=== PATIENT | female | born 1945 | race Caucasian/White ===

== ENCOUNTER → 2019-07-27 14:32 | Outpatient (CLI) | payer MEDICARE, SELFPAY ==
[2019-07-27 13:37] VITALS: BMI 40.6
[2019-07-27 15:16] LABS: Absolute Lymphocyte Count 4.02 X10^3/uL (0.83-4.51); Absolute Neutrophil Count 5.6 X10^3/uL (2.0-7.7); Basophil# 0.07 X10^3/uL; Basophil% 0.6 % (0-1); Eosinophil# 0.57 X10^3/uL; Eosinophils% 5.3 % (0-5); Hematocrit 32.4 % (37-47); Hemoglobin 10.3 g/dL (12.0-15.0); Lymphocyte # 4.02 X10^3/ul (4.0); Lymphocyte % 37.1 % (19-41); Mean Corp Hgb Conc 31.8 g/dL (32-36); Mean Corpuscular Hgb 30.2 pg (27.0-32.0); Mean Platelet Vol. 10.4 fl (6.2-12.0); Monocyte# 0.57 X10^3/uL; Monocyte% 5.3 % (0-10); NRBC Flagged by Analyzer 0 % (0-5); Neutrophil # 5.57 X10^3/uL (2.7-7.7); Neutrophil % 51.3 % (47-70); Platelet Count 299 K/mm3 (150-450); RBC Distribution Width CV 12.8 % (11.6-14.6); RBC Distribution Width SD 44.3 fl (35.1-43.9); Red Blood Count 3.41 M/mm3 (4.2-5.4); White Blood Count 10.8 K/mm3 (4.4-11.0)
[2019-07-27 15:40] LABS: AST(SGOT) 14 U/L (15-37); Alanine Aminotransfer ALT/SGPT 21 U/L (13-56); Albumin, Serum 3.6 g/dL (3.2-5.0); Alkaline Phosphatase 91 U/L (45-117); Anion Gap 7 (5-15); BUN 34 mg/dL (7-18); BUN/Creat Ratio 20.1 RATIO (10-20); Bilirubin, Direct 0.08 mg/dL (0.00-0.30); Calcium,Total 8.9 mg/dL (8.5-10.1); Chloride 109 mmol/L (98-107); Cholesterol 160 mg/dL (200); Creatinine, Serum 1.69 mg/dL (0.55-1.02); EST Glomerular Filtration Rate 31 mL/min (>60); Est Glom Filt Rate - Afr Amer 38 mL/min (>60); Globulin 3.9 g/dL (2.2-4.2); Glucose 192 mg/dL (74-106); High Density Lipoprotein 37 mg/dL; Potassium 4.7 mmol/L (3.5-5.1); Protein, Total 7.5 g/dL (6.4-8.2); Sodium Level 139 mmol/L (136-145); Triglycerides 193 mg/dL; Very Low Density Lipoprotein 39 mg/dL (5-40)
== END ==
PROVIDERS: Family Provider Family Medicine; PCP Family Medicine; Referring Provider Physician Assistant Medical; Visit Provider Physician Assistant Medical
DX: I25.810 Atherosclerosis of coronary artery bypass graft(s) without angina pectoris (principal)
CPT/HCPCS: 80048; 80061; 80076; 85025

== ENCOUNTER 2020-10-08 23:58 | Observation (INO) | payer MEDICARE, SELFPAY ==
[2020-02-15 13:14] VITALS: BMI 39.4
[2020-10-08 23:59] VITALS: BP 223/72; PULSE 83; RESP 17; TEMP 36.6; O2SAT 100; BMI 44.8
[2020-10-09] VITALS (11 sets, daily range): BP systolic 147–214; BP diastolic 67–82; PULSE 75–90; RESP 16–18; TEMP 36.3–36.9; O2SAT 96–100; BMI 38.0
--- NOTE | 2020-10-09 00:09 | CT_ITS ---
HISTORY: SHIVERING INSIDE, DIARRHEA, ELEVATED BP, HX MD IN PAST ADDITIONAL HISTORY: None provided. COMPARISON: None EXAMINATION/TECHNIQUE: CT Head or Brain W/O Contrast Injection. Axial, coronal and sagittal images. Number of images including paperwork: 248. A radiation dose optimization technique was used for this scan. FINDINGS: BRAIN: No acute hemorrhage. Low density focus in the left renetta. Multiple areas of decreased white matter attenuation are nonspecific, most commonly seen with chronic small vessel ischemic changes but can also be seen with other white matter processes such as demyelinating disease, vasculitis, or complicated migraine. Generalized atrophy. VENTRICULAR SYSTEM: No hydrocephalus. PARANASAL SINUSES AND MASTOIDS: No air-fluid level in the imaged extent. ORBITS: Unremarkable imaged extent. SKELETON AND SOFT TISSUES: Calvarium intact. ASPECTS score: Not applicable. CT/Brain/Head without Contrast IMPRESSION: Low density in the left renetta suggestive of age-indeterminate lacunar infarct. Chronic involutional and white matter changes. Individualized dose optimization techniques were used for this CT. at 0039 Reported and signed by: Mariia Vasquez MD Electronically Signed: Mariia Vasquez MD at 0:38 EST Tel , Service support ,
--- NOTE | 2020-10-09 00:10 | EKG12_ITS ---
Test Reason : GENERAL ILLNESS Blood Pressure : / mmHG Vent. Rate : 072 BPM Atrial Rate : 072 BPM P-R Int : 152 ms QRS Dur : 090 ms QT Int : 402 ms P-R-T Axes : 025 032 071 degrees QTc Int : 440 ms Normal sinus rhythm with sinus arrhythmia Normal ECG Confirmed by ARNALDO DUQUE, DARLENE ([id number]), department editor SUKHDEEP CONTRERAS ([id number]) on 10/09/2020 1:16:40 PM Referred By: SAMANTHA Confirmed By:DARLENE MCINTOSH MD
--- NOTE | 2020-10-09 00:14 | ED.DCSUM_ITS ---
History of Present Illness Chief Complaint: General Illness Informant: Patient, Family Limited by: - Onset: Today Context: Gradual Onset Timing: Intermittent Narrative: Patient is a 75-year-old female presenting with feeling weak and almost feeling like there is a shaking inside her. She states that her symptoms started couple hours ago. She feels that there is a pounding or ringing in her ears. About an hour prior to arrival she started to get paresthesias in her right arm. This is now resolved and she just has a little bit of tingling in her right fingers. She denies any weakness or numbness. She denies any vision changes. She denies any chest pain, shortness of breath or difficulty breathing. She denies any urinary or GI symptoms. Patient says should not really show withdrawal with her. States she has been compliant with all of her home medications. She is on lisinopril for high blood pressure. She takes an aspirin daily was not on any anticoagulation. 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 Win, in the morning. 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 She also has history of open heart surgery and states she had a stroke after that. She denies any lingering deficits from that stroke. Lives with her daughter. She uses a cane to ambulate. Past Medical History - Allergies and Home Meds Allergies/Adverse Reactions: Allergies albuterol Allergy (Verified 10/08/20 23:59) Shortness of breath Anesthetics - Amide Type - Select A [Anesthetics - Amide Type] Allergy (Verified 10/08/20 23:59) Other STATES BILAT LUNGS COLLAPSED AFTER OPEN HEART SURGERY AND HAVING ANESTHESIA. PT. UNSURE OF WHICH ANESTHESIA MEDS acetaminophen [From Tylenol] Adverse Reaction (Severe, Verified 10/08/20 23:59) Other SEE'S DARK SPOTS cinnamon Adverse Reaction (Unknown, Verified 10/08/20 23:59) Unknown Penicillins Adverse Reaction (Unknown, Verified 10/08/20 23:59) Unknown Past Medical History: - - Coronary artery disease, ischemic cardiomyopathy, hypertension, hyperlipidemia, TIA, GERD, hypothyroid, type 2 diabetes mellitus Surgical History: coronary bypass surgery Smoking Status: Never smoker - Family History Maternal Family History: Family History (Last Reviewed 02/15/20 @ 13:15 by Niki Lawton) Mother No problems noted. Father Prostate cancer Paternal Family History: Family History (Last Reviewed 02/15/20 @ 13:15 by Niki Lawton) Mother No problems noted. Father Prostate cancer Family History: Reports: Cancer - Father with history of prostate cancer. Review of Systems General: Reports: Malaise. Denies: Chills, Fever, Sweats Eyes: Denies: Visual changes - bilaterally, Diplopia ENT: Reports: - - Pounding in ears. Denies: Rhinorrhea, Sore throat Cardiovascular: Denies: Chest pain, Palpitations Respiratory: Denies: Dyspnea, Cough, Dyspnea on exertion Gastrointestinal: Denies: Abdominal pain, Nausea, Vomiting, Diarrhea, Melena, Hematochezia Genitourinary: Denies: Dysuria, Hematuria, Frequency Musculoskeletal: Denies: Back pain, Extremity Pain Skin: Denies: Rash, Wounds Neurological: Reports: Parasthesia - Right arm?resolved. Denies: Headache, Weakness, Numbness Physical Exam Vital Signs/Narrative: Vital Signs Temp Pulse Resp BP Pulse Ox 10/08/20 23:59 97.9 F 83 17 223/72 H 100 Inital Vital Signs reviewed: Yes General: Well nourished, Well developed, No Acute Distress Head: Normocephalic, Atraumatic Eyes: Perrl, EOMI ENT: Moist mucous membranes, No rhinorrhea, TM's clear Neck: Supple, Nontender, No JVD Cardiovascular: Regular rate, Regular rhythm, No murmurs Respiratory: No distress, CTA bilaterally, Chest nontender Abdomen: Soft, Nontender, Nondistended, Normal bowel sounds Back: Nontender, Normal Inspection Extremities: Nontender, No edema Skin: Normal color, No rash Neurological: Alert, Oriented x3, Cranial nerves II-XII grossly intact, Normal Strength, Normal Sensation, - - NIH equals 0. Negative for: Confused, Disoriented, Parasthesia, Weakness, Left side facial droop, Right side facial droop Psychological: Normal affect, Normal Mood Diagnostic/Tx/Re-eval Chest X-Ray - ED: 1 View, Read by ED Physician, Read by Radiologist, No Acute Disease Clinical Impression(s) from Imaging Studies Brain CT 10/09/20 00:09 IMPRESSION: Low density in the left renetta suggestive of age-indeterminate lacunar infarct. Chronic involutional and white matter changes. Individualized dose optimization techniques were used for this CT. at 0039 Reported and signed by: Mariia Vasquez MD Electronically Signed: Mariia Vasquez MD at 0:38 EST Tel , Service support , Chest X-Ray 10/09/20 00:25 IMPRESSION: No acute cardiopulmonary abnormality. at 0057 Reported and signed by: Mariia Vasquez MD Electronically Signed: Mariia Vasquez MD at 0:57 EST Tel , Service support , Laboratory Data 10/09/20 10/09/20 10/09/20 00:10 00:20 00:20 WBC 13.3 H RBC 3.58 L Hgb 10.6 L Hct 34.0 L MCV 95.0 MCH 29.6 MCHC 31.2 L RDW Std Deviation 48.5 H RDW Coeff of Kamar 13.9 Plt Count 337 MPV 10.1 Immature Gran % (Auto) 0.500 Neut % (Auto) 62.4 Lymph % (Auto) 28.4 [place] % (Auto) 5.9 Eos % (Auto) 2.4 Baso % (Auto) 0.4 Absolute Neuts (auto) 8.3 H Absolute Lymphs (auto) 3.78 Nucleated RBC % 0 PT 12.8 INR 1.0 APTT 33.7 Sodium Potassium Chloride Carbon Dioxide Anion Gap BUN Creatinine Estim Creat Clear Calc Est GFR (MDRD) Af Amer Est GFR (MDRD) Non-Af BUN/Creatinine Ratio Glucose Calcium Total Bilirubin AST ALT Alkaline Phosphatase Troponin I Total Protein Albumin Globulin Albumin/Globulin Ratio Urine Color Yellow Urine Clarity Clear Urine pH 6.0 Ur Specific [place] 1.010 Urine Protein 15 H Urine Glucose (UA) Normal Urine Ketones Negative Urine Occult Blood 25 H Urine Nitrite Negative Urine Bilirubin Negative Urine Urobilinogen Normal Ur Leukocyte Esterase 500 H Urine RBC 5-10 SEEN Urine WBC 10-25 SEEN Ur Squamous Epith Cells 0-5 SEEN Urine Bacteria RARE Urine Mucus 0 SEEN 10/09/20 00:20 WBC RBC Hgb Hct MCV MCH MCHC RDW Std Deviation RDW Coeff of Kamar Plt Count MPV Immature Gran % (Auto) Neut % (Auto) Lymph % (Auto) [place] % (Auto) Eos % (Auto) Baso % (Auto) Absolute Neuts (auto) Absolute Lymphs (auto) Nucleated RBC % PT INR APTT Sodium 139 Potassium 4.7 Chloride 111 H Carbon Dioxide 21.0 Anion Gap 7 BUN 22 H Creatinine 1.85 H Estim Creat Clear Calc 39.74 Est GFR (MDRD) Af Amer 34 L Est GFR (MDRD) Non-Af 28 L BUN/Creatinine Ratio 11.9 Glucose 119 H Calcium 8.8 Total Bilirubin 0.30 AST 12 L ALT 19 Alkaline Phosphatase 98 Troponin I < 0.015 Total Protein 7.3 Albumin 3.6 Globulin 3.7 Albumin/Globulin Ratio 1.0 Urine Color Urine Clarity Urine pH Ur Specific [place] Urine Protein Urine Glucose (UA) Urine Ketones Urine Occult Blood Urine Nitrite Urine Bilirubin Urine Urobilinogen Ur Leukocyte Esterase Urine RBC Urine WBC Ur Squamous Epith Cells Urine Bacteria Urine Mucus - Rhythm Strip Rhythm Strip: Sinus Rhythm Rate: 72 Ectopy: None - EKG Initial EKG Interpretation: Sinus Rhythm, - - Normal sinus rhythm at a rate of 72 with sinus arrhythmia Normal axis Normal intervals Normal ST segments Interpreted by emergency medicine physician - Medical Decision Making Patient is evaluated for general feeling of malaise as well as an episode of paresthesias to her right arm that have since resolved. Patient initially did not even complain of the paresthesias but mentioned it on review of systems. Patient's NIH is 0 so therefore stroke alert is not called. She does have a history of TIAs. Patient is noted to have urinary frequency while in the emergency room. Urinalysis is consistent with infection and urine culture sent. Patient also has a leukocytosis and I did add on a lactate and blood cultures. Patient started on IV Rocephin in the ER. She is initially quite hypertensive with systolic blood pressure in the 220s however this resolves without any intervention in the ER. Patient is given a full dose aspirin as her head CT shows an age-indeterminate lacunar infarct. No signs of acute bleed. EKG is normal and patient has a normal troponin. This does not sound like a cardiac event. Patient admitted for further evaluation of UTI as well as TIA. She is agreeable with plan of care. She is hemodynamically stable in the emergency room. ED Disposition - Plan for ED Patient: Disposition: Acute Care Hospital [facility] Diagnosis: Essential hypertension, UTI (urinary tract infection), Weakness, CKD (chronic kidney disease), Arm paresthesia, right
[2020-10-09 00:15] LABS: Mucous, Urine 0 SEEN /hpf (<or=2+)
[2020-10-09 00:21] LABS: Color, Urine Yellow (Yellow); Glucose, Dipstick Normal (Normal); Ketone-Dipstick Negative (Negative); Leukocyte Esterase-Dipstick 500 /ul (Negative); Nitrite-Dipstick Negative (Negative); Occult Blood-Urine 25 /ul (Negative); Protein-Dipstick 15 mg/dl (Negative); Urine Bilirubin Dipstick Negative (Negative); Urine Clarity Clear (Clear); Urine Urobilinogen Normal (Normal)
--- NOTE | 2020-10-09 00:25 | RAD_ITS ---
HISTORY: FATIGUE, DIARRHEA AND INCREASED BP ADDITIONAL HISTORY: None provided. EXAMINATION/TECHNIQUE: XR Chest 1 View AP/PA Number of images including paperwork: 1 COMPARISON: None FINDINGS: LUNGS AND PLEURA: No consolidation, mass or pleural effusion. CARDIAC SILHOUETTE: Unremarkable. MEDIASTINUM AND RAHUL: Aortic calcification. UPPER ABDOMEN: Unremarkable. SKELETON AND SOFT TISSUES: No acute skeletal findings. Degenerative changes. OTHER DEVICES AND HARDWARE: Sternal wires and surgical clips. RAD/Chest 1 View (Portable) IMPRESSION: No acute cardiopulmonary abnormality. at 0057 Reported and signed by: Mariia Vasquez MD Electronically Signed: Mariia Vasquez MD at 0:57 EST Tel , Service support ,
[2020-10-09 00:26] LABS: Absolute Lymphocyte Count 3.78 X10^3/uL (0.83-4.51); Absolute Neutrophil Count 8.3 X10^3/uL (2.0-7.7); Basophil# 0.05 X10^3/uL; Basophil% 0.4 % (0-1); Eosinophil# 0.32 X10^3/uL; Eosinophils% 2.4 % (0-5); Hemoglobin 10.6 g/dL (12.0-15.0); Lymphocyte # 3.78 X10^3/ul (4.0); Lymphocyte % 28.4 % (19-41); Mean Corp Hgb Conc 31.2 g/dL (32-36); Mean Corpuscular Hgb 29.6 pg (27.0-32.0); Mean Platelet Vol. 10.1 fl (6.2-12.0); Monocyte# 0.78 X10^3/uL; Monocyte% 5.9 % (0-10); NRBC Flagged by Analyzer 0 % (0-5); Neutrophil % 62.4 % (47-70); Platelet Count 337 K/mm3 (150-450); RBC Distribution Width CV 13.9 % (11.6-14.6); RBC Distribution Width SD 48.5 fl (35.1-43.9); Red Blood Count 3.58 M/mm3 (4.2-5.4); White Blood Count 13.3 K/mm3 (4.4-11.0)
[2020-10-09 00:29] LABS: Bacteria RARE /hpf (None Seen); Red Blood Cells-Urine 5-10 SEEN /hpf (0-5); Squamous Epithelial Cells - UA 0-5 SEEN /hpf (5-10); White Blood Cells 10-25 SEEN /hpf (0-5)
[2020-10-09 00:36] LABS: Prothrombin Time (Protime)PT. 12.8 SECONDS (11.7-14.9)
[2020-10-09 00:37] LABS: Partial Thromboplast Time 33.7 Seconds (24.1-36.2)
[2020-10-09 00:44] LABS: AST(SGOT) 12 U/L (15-37); Alanine Aminotransfer ALT/SGPT 19 U/L (13-56); Albumin, Serum 3.6 g/dL (3.2-5.0); Alkaline Phosphatase 98 U/L (45-117); Anion Gap 7 (5-15); BUN 22 mg/dL (7-18); BUN/Creat Ratio 11.9 RATIO (10-20); Calcium,Total 8.8 mg/dL (8.5-10.1); Chloride 111 mmol/L (98-107); Creatinine, Serum 1.85 mg/dL (0.55-1.02); EST Glomerular Filtration Rate 28 mL/min (>60); Est Glom Filt Rate - Afr Amer 34 mL/min (>60); Estimated Creatinine Clearance 39.74 ml/min; Globulin 3.7 g/dL (2.2-4.2); Glucose 119 mg/dL (74-106); Potassium 4.7 mmol/L (3.5-5.1); Protein, Total 7.3 g/dL (6.4-8.2); Sodium Level 139 mmol/L (136-145)
--- NOTE | 2020-10-09 01:10 | HP.PCM_ITS ---
Problem List (1) TIA (transient ischemic attack) Status: Acute (2) Morbid obesity Status: Chronic (3) Diabetes mellitus, type II Status: Chronic Qualifiers: Diabetes mellitus assisted insulin use: without assisted use Diabetes mellitus complication status: with other specified complication Qualified Code(s): E11.69 - Type 2 diabetes mellitus with other specified complication (4) CKD (chronic kidney disease) Status: Chronic Qualifiers: Chronic kidney disease stage: stage 3 (moderate) Chronic kidney disease stage 3 subtype: unspecified whether 3a or 3b Qualified Code(s): N18.30 - Chronic kidney disease, stage 3 unspecified (5) Atherosclerosis of coronary artery bypass graft without angina pectoris Status: Chronic Qualifiers: [place] vs. transplanted heart: unspecified whether [place] or transplanted heart Qualified Code(s): I25.810 - Atherosclerosis of coronary artery bypass graft(s) without angina pectoris (6) H/O coronary artery bypass surgery Status: Resolved Comment: CABG x 6 - HEART to LAD, SVG to D1 and D2, SVG to Ramus, SVG to OM1, SVG to RPDA 10/11/2007 (7) History of coronary artery stent placement Status: Resolved Comment: TDV-HFU-Omch-SVG-LCx w/ 3.0 34 mm Resolute Integrity Stent 01/12/2016; PCI-KATEY-Mid RCA w/ 3.0 x 34 mm and 3.0 x 30 mm Resolute Integrity Stent, POBA-Prox RPDA 01/10/2016 [id number] unsuccessful 01/10/2016; PCI-SVG-D1 and PCI-LCx 11/05/2019 (8) Ischemic cardiomyopathy Status: Chronic (9) Chronic combined systolic and diastolic CHF (congestive heart failure) Status: Chronic (10) Essential hypertension Status: Chronic (11) Hyperlipidemia Status: Chronic Qualifiers: Hyperlipidemia type: pure hypercholesterolemia Qualified Code(s): E78.00 - Pure hypercholesterolemia, unspecified (12) Hypothyroidism Status: Chronic Qualifiers: Hypothyroidism type: unspecified Qualified Code(s): E03.9 - Hypothyroidism, unspecified (13) Chronic asthma Status: Chronic Qualifiers: Asthma severity: unspecified severity Asthma persistence: unspecified Asthma complication type: unspecified Qualified Code(s): J45.909 - Unspecified asthma, uncomplicated History of Present Illness Date of Admission: 10/09/20 Chief Complaint: R sided paresthesias The patient is a 75 y/o F w/ PMHx: CKD stage III, 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, Asthma, CAD s/p CABG x 6 and KAETY, Chronic systolic and diastolic CHF/Ischemic cardiomyopathy, Morbid Obesity, Hypothyroidism, HTN, HLD, GERD, Diabetes mellitus type II, Chronic debility using a cane baseline who presents to the [facility] ED on 10/09/20 with history of abnormal sensation of feeling as though something shaking inside of her, possibly like chills starting a couple hours prior to ED presentation with sensation of ringing and pounding in her head with complaints of paresthesias to her right upper extremity x 1 hour which is since resolved except for mild tingling in her right fingers with no associated weakness. Patient notes she has chronic bladder discomfort as she has issues with detachment but states it is chronic and unchanged with no acute dysuria, retention, frequency. Work-up in the ED included T 97.9, heart rate 83, BP 223/72--> 214/75, respiratory rate 17, and a percent room air, CBC with WBC 13.3, hemoglobin 10.6, platelet 337 with left shift, urinalysis not marked appearing, urine culture pending per ED, unremarkable coags, CMP with chloride 111, BUN/creatinine 22/1.85, glucose 119 otherwise unremarkable, troponin less than 0.015, CT head low density in the left renetta adjustment of an age- indeterminate lacunar infarct, chronic involutional and white matter changes, chest x-ray with no acute cardiopulmonary findings with evidence status post thoracotomy, EKG with sinus rhythm with no acute evidence of ischemia, pending LA. In the ED patient ministered Rocephin, aspirin, normal saline. NIH in the ED 0. Past Medical History Past Medical History (Chronic Problems): Chronic Problems (Last Reviewed 02/15/20 @ 13:15 by Niki Lawton) CKD (chronic kidney disease) (Chronic) Morbid obesity (Chronic) Diabetes mellitus, type II (Chronic) Hypothyroidism (Chronic) Chronic asthma (Chronic) Atherosclerotic heart disease of [place] coronary artery without angina pectoris (Chronic) Atherosclerosis of coronary artery bypass graft without angina pectoris (Chronic) Old anterior wall myocardial infarction (Chronic) Old inferior wall myocardial infarction (Chronic) Ischemic cardiomyopathy (Chronic) Chronic combined systolic and diastolic CHF (congestive heart failure) (Chronic) Essential hypertension (Chronic) Hyperlipidemia (Chronic) Medical History: Medical History (Last Reviewed 02/15/20 @ 13:15 by Niki Lawton) Atherosclerotic heart disease of [place] coronary artery without angina pectoris (Chronic) I25.10 Atherosclerosis of coronary artery bypass graft without angina pectoris (Chronic) I25.810 Old anterior wall myocardial infarction (Chronic) I25.2 Old inferior wall myocardial infarction (Chronic) I25.2 Ischemic cardiomyopathy (Chronic) I25.5 Chronic combined systolic and diastolic CHF (congestive heart failure) (Chronic) I50.42 Essential hypertension (Chronic) I10 Hyperlipidemia (Chronic) E78.5 Non-ST elevated myocardial infarction (non-STEMI) (Resolved) Onset Date: 11/05/19 I21.4 01/2016 Asthma J45.909 GERD (gastroesophageal reflux disease) K21.9 Hypothyroidism E03.9 Obesity E66.9 Type 2 diabetes mellitus without complication E11.9 Vertigo R42 Allergies albuterol Allergy (Verified 10/08/20 23:59) Shortness of breath Anesthetics - Amide Type - Select A [Anesthetics - Amide Type] Allergy (Verified 10/08/20 23:59) Other STATES BILAT LUNGS COLLAPSED AFTER OPEN HEART SURGERY AND HAVING ANESTHESIA. PT. UNSURE OF WHICH ANESTHESIA MEDS acetaminophen [From Tylenol] Adverse Reaction (Severe, Verified 10/08/20 23:59) Other SEE'S DARK SPOTS cinnamon Adverse Reaction (Unknown, Verified 10/08/20 23:59) Unknown Penicillins Adverse Reaction (Unknown, Verified 10/08/20 23:59) Unknown Home Medications: Ambulatory Orders Medication Instructions Recorded Metoprolol Tartrate [Lopressor 50 mg PO BID 12/17/13 (Beta Bernie)] Montelukast [Singulair] 10 mg PO DAILY 12/17/13 Omeprazole [Prilosec] 20 mg PO DAILY 12/17/13 glipiZIDE [Glucotrol] 10 mg PO BIDAC 12/17/13 metFORMIN HCl [Glucophage] 1,000 mg PO BIDCM 12/17/13 aspirin 81 mg tablet,delayed 81 mg PO QDAY tab 11/19/17 release lisinopril 20 mg tablet 20 mg PO QDAY 11/19/17 clopidogrel 75 mg tablet 75 mg PO QDAY tab 12/22/17 levothyroxine 137 mcg capsule 137 mcg PO QDAY 12/23/17 meclizine 12.5 mg tablet 12.5 mg PO TID PRN tab 12/23/17 furosemide 40 mg tablet 40 mg PO DAILY #90 tab 01/22/19 cetirizine 10 mg tablet 10 mg PO QDAY tab 02/15/20 ipratropium bromide 17 2 puff INHALATION 4X/DAY PRN PRN 02/15/20 mcg/actuation HFA aerosol inhaler pravastatin 80 mg tablet 80 mg PO QHS tab 02/15/20 Allopurinol 100 mg PO DAILY 10/09/20 Surgical History: Surgical History (Last Reviewed 02/15/20 @ 13:15 by Niki Lawton) H/O coronary artery bypass surgery (Resolved) Onset Date: 10/11/07 Z95.1 CABG x 6 - HEART to LAD, SVG to D1 and D2, SVG to Ramus, SVG to OM1, SVG to RPDA 10/11/2007 History of coronary artery stent placement (Resolved) Onset Date: 11/05/19 Z95.5 ZQU-ZFH-Npdj-SVG-LCx w/ 3.0 34 mm Resolute Integrity Stent 01/12/2016; PCI-KATEY-Mid RCA w/ 3.0 x 34 mm and 3.0 x 30 mm Resolute Integrity Stent, POBA-Prox RPDA 01/10/2016 [id number]-[id number] unsuccessful 01/10/2016; PCI-SVG-D1 and PCI-LCx 11/05/2019 History of cholecystectomy Z90.49 History of hysterectomy Z90.710 Hx of appendectomy Z90.49 Hx of bilateral cataract extraction Z98.41, Z98.42 Surgical History: coronary bypass surgery, - - CABG x 6, PCI, cholecystectomy, hysterectomy, appendectomy, bilateral cataract surgery. 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 Smoking Status: Never smoker Tobacco Use: Non-smoker Alcohol: None Drugs: None - *Family History Maternal Family History: Family History (Last Reviewed 02/15/20 @ 13:15 by Niki Lawton) Mother No problems noted. Father Prostate cancer History Items: - - Patient denies any market maternal family history including heart disease, diabetes, cancer. Patient notes her mother was very healthy. Paternal Family History: Family History (Last Reviewed 02/15/20 @ 13:15 by Niki Lawton) Mother No problems noted. Father Prostate cancer History Items: Cancer - Father with history of prostate cancer. Review of Systems Constitutional: Reports: Fatigue. Denies: Anorexia, Chills, Fever, Malaise, Weakness, Weight Change HEENT: Reports: Head Aches, - - Tinnitus.. Denies: Sinus Congestion, Sinus Drainage Cardiovascular: Denies: Chest Pain, Palpitations Respiratory: Denies: Cough, Shortness of Breath, Shortness of breath at rest, Sputum production Gastrointestinal: Denies: Abdominal Pain, Nausea, Vomiting Genitourinary: Reports: - - Chronic lower abdomen discomfort, bladder chronic issues, stable, unchanged., - - No new specific dysuria, frequency, retention, urgency. Musculoskeletal: Reports: Joint Pain. Denies: Joint Tenderness Skin: Denies: Rash, Wounds Neurological: Reports: Tingling - Right upper extremity paresthesias, resolved.. Denies: Focal weakness, Numbness Psychiatric: Denies: Anxiety, Depression, Homicidal Ideations, Suicidal Ideations Hematologic/ Lymphatic: Reports: Anemia, Easy Bruising, Easy Bleeding VTE Information - Inpt Only VTE Present on Admission: No VTE Mechan Device Prophylaxis: SCD's VTE Pharm Prophylaxis ordered?: Yes Patient Problems: Active and Suspected Problems (Last Reviewed 02/15/20 @ 13:15 by Niki Lawton) UTI (urinary tract infection) (Acute) Weakness (Acute) Arm paresthesia, right (Acute) Subjective: Patient seated upright in the ED bed, fatigued otherwise no acute distress. Objective: Physical Examination: General: awake, alert, oriented x 3 and cooperative, seated upright in the ED bed in no apparent distress. Skin: normal color, turgor, no icterus, cyanosis. HEENT: AT/NC, EOMI, PERRLA, MMM, no carotid bruits or JVD noted. Lungs: Diminished breath sounds, greater bases, normal effort, no rales, ronchi or wheezing. Heart: Regular rate and rhythm; no gallop, rub audible. Abdomen: soft, morbidly obese, no specific tenderness to palpation including suprapubic region, difficult to assess distention given habitus, distant normal BS, unable to discern HSM secondary to morbidly obese habitus. Extremities: no cyanosis or clubbing, mild bilateral nonpitting ankle edema. Neurological: patient awake, alert, oriented as noted; cognitive function intact; pupils equally reactive to light and accomodation; cranial nerves II-XII grossly normal, moving all 4 extremities, no focal deficits, strength moderately to severely global decreased, chronic, sensation intact, ekshow-ui-yhaz and pcls-kg-oita appropriate, negative Babinski. Psychiatric: affect appears normal, no acute evidence of depressive or anxiety feelings. - Physical Exam Vitals/I&O's: Vital Signs Temp Pulse Resp BP Pulse Ox 97.9 F 83 17 214/75 H 100 10/08/20 23:59 10/08/20 23:59 10/08/20 23:59 10/09/20 00:23 10/08/20 23:59 Oxygen Delivery Method Room Air Weight: 214 lb 8.156 oz Body Mass Index (BMI) 44.8 Laboratory Results 10/09/20 00:10: Urine Color Yellow, Urine Clarity Clear, Urine pH 6.0, Ur Specific [place] 1.010, Urine Protein 15 H, Urine Glucose (UA) Normal, Urine Ketones Negative, Urine Occult Blood 25 H, Urine Nitrite Negative, Urine Bilirubin Negative, Urine Urobilinogen Normal, Ur Leukocyte Esterase 500 H, Urine RBC 5-10 SEEN, Urine WBC 10-25 SEEN, Ur Squamous Epith Cells 0-5 SEEN, Urine Bacteria RARE, Urine Mucus 0 SEEN 10/09/20 00:20: WBC 13.3 H, RBC 3.58 L, Hgb 10.6 L, Hct 34.0 L, MCV 95.0, MCH 29.6, MCHC 31.2 L, RDW Std Deviation 48.5 H, RDW Coeff of Kamar 13.9, Plt Count 337, MPV 10.1, Immature Gran % (Auto) 0.500, Neut % (Auto) 62.4, Lymph % (Auto) 28.4, [place] % (Auto) 5.9, Eos % (Auto) 2.4, Baso % (Auto) 0.4, Absolute Neuts (auto) 8.3 H, Absolute Lymphs (auto) 3.78, Nucleated RBC % 0 10/09/20 00:20: PT 12.8, INR 1.0, APTT 33.7 10/09/20 00:20: Sodium 139, Potassium 4.7, Chloride 111 H, Carbon Dioxide 21.0, Anion Gap 7, BUN 22 H, Creatinine 1.85 H, Estim Creat Clear Calc 39.74, Est GFR (MDRD) Af Amer 34 L, Est GFR (MDRD) Non-Af 28 L, BUN/Creatinine Ratio 11.9, Glucose 119 H, Calcium 8.8, Total Bilirubin 0.30, AST 12 L, ALT 19, Alkaline Phosphatase 98, Troponin I < 0.015, Total Protein 7.3, Albumin 3.6, Globulin 3.7, Albumin/Globulin Ratio 1.0 Current Medications Ceftriaxone Sodium (Rocephin) 1 gm in 50 mls @ 100 mls/hr IV X1 ONE Stop: 10/09/20 01:26 Sodium Chloride () 1,000 mls @ 150 mls/hr IV .Q6H40M [facility] Assessment/Plan All Active Problems (Last Reviewed 02/15/20 @ 13:15 by Niki Lawton) UTI (urinary tract infection) (Acute) Weakness (Acute) Arm paresthesia, right (Acute) TIA (transient ischemic attack) (Acute) H/O coronary artery bypass surgery (Resolved 10/11/07) History of coronary artery stent placement (Resolved 11/05/19) Non-ST elevated myocardial infarction (non-STEMI) (Resolved 11/05/19) The patient is a 75 y/o F w/ PMHx: CKD stage III, 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 1. Right upper extremity paresthesias concerning for CVA with Hx Prior CVA: Will admit to PCU, will obtain MRI Brain, MRA Head and Neck, ECHO, PT/OT/Speech/Nutrition evaluation per protocol. Will plan possible consult with neurology for evaluation following work-up as noted. Will allow permissive HTN pending MRI brain, maintain on asa/plavix, statin w/ AM FLP, fall precautions, magnesium pending, hemoglobin A1c pending, TSH pending. 2. Questionable UTI: Patient was given IV Rocephin in the ED for possible urinary tract infection however patient with no marked urine bacteria, asymptomatic for UTI therefore will await urine culture prior to continuation of any antibiotic therapy. Bld Cx pending per ED. 3. Chronic systolic and diastolic CHF/ischemic cardiomyopathy: We will continue patient aspirin, Plavix, statin therapies, judicious hydration given underlying history, last echo noted 01/08/2016 with mildly increased LV size, EF 40 to 45% with moderate diffuse hypokinesis, moderate MVR, mildly dilated LA, RVSP 25 mmHg obtained at [facility]. Temporarily holding patient metoprolol, lisinopril, Lasix therapy is given permissive hypertension as noted, [facility] 4. Hypertension: We will maintain permissive hypertension given presentation although significantly elevated in the ED thus will have as needed agents and treat if necessary. 4. Hyperlipidemia: Continue home statin regimen. AM FLP. 5. CAD: Status post CABG x 6 with HEART to LAD, SVG to D1 and D2, SVG to Ramus, SVG to OM1, SVG to RPDA 10/11/2007 and KATEY intervention w/ PCI to the saphenous v ein graft to the diagonal branch and a PCI to the [place] post[place] left circumflex artery, will continue aspirin, Plavix, statin therapies, temporarily holding metoprolol and lisinopril given permissive hypertension as noted. 6. Diabetes mellitus type II: Hold oral home regimen, continue home insulin regimen, ADA diet, accu checks w/ ISS. 7. Hypothyroidism: Continue home synthroid regimen, TSH pending. 8. Chronic asthma: We will continue patient home inhaler, encourage head of bed and I-S. 10. Morbid Obesity: Weight loss and lifestyle changes encouraged, nutrition consulted. 11. Chronic normocytic anemia: Admission hemoglobin 10.6, previously similar, will continue to trend and encourage outpatient evaluation and follow-up. 12. Chronic Kidney Disease Stage III: Admission BUN/Cr 22/1.5, baseline renal function previously noted to be 1.69, repeat BMP in AM. 13. GERD: We will continue home PPI. 14. DVT prophylaxis: SCDs, Lovenox. 15. CODE status: Patient does not have healthcare of application integration architect set up but states she does have a living will but this was set up many years ago and she has not looked at it since nor does she seem to know where it is at. Encouraged with her significant comorbidity history to discuss setting up healthcare power of application integration architect and reevaluating living will with case management/social work so they may give her more information and direction. Discussed CODE status at length including difference between FULL code, DNR-CCA and DNR-CC status. Following discussions about the differences in these status, requested Full Code status. Did note that with her advanced age and co-morbidities outcome may be poor. Advanced Care Planning Face to Face Time: 16 minutes. OBSV E&M: 54677 Initial observation care L3 Procedures: 61777 Advncd Care Plan 30 Min
[2020-10-09] MEDS: 0.9% Normal Saline 1,000 ML 150 ML IV (01:19)
[2020-10-09] MEDS: Ceftriaxone 1 GM/50 ML BAG IV (01:19)
[2020-10-09] MEDS: Aspirin 81 MG TAB.CHEW 324 MG PO (01:20)
[2020-10-09 01:37] LABS: Lactic Acid 1.7 mmol/L (0.4-1.9)
--- NOTE | 2020-10-09 01:58 | MRI_ITS ---
STUDY: MRA OF THE HEAD WITHOUT CONTRAST REASON FOR EXAM: Female, 75 years old patient with right-sided arm/hand tingling TECHNIQUE: 3-D bevs-iq-tngorg (TOF) imaging was performed with MIPs. The study was performed unenhanced. COMPARISON: None. FINDINGS: Normal bilateral petrous carotid arteries. There appears to be hemodynamically significant stenosis of the supraclinoid regions of the right internal carotid artery with at least 70% diameter narrowing. The right cavernous internal carotid artery is diffusely narrowed. 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 There is non-visualization of the right A1 segment of the anterior cerebral arteries consistent with either aplastic development or an occlusion. Normal left A1 segments of the anterior cerebral artery. Normal intact anterior communicating artery (ACOM). Normal bilateral A2 segments of the anterior cerebral arteries. There is irregularity of the right M1 and M2 branches with minimal luminal narrowing, suggesting atherosclerotic plaque formation, without an occlusion. There is irregularity of the left M1 and M2 branches with minimal luminal narrowing, suggesting atherosclerotic plaque formation, without an occlusion. There is non-visualization of the right posterior communicating artery (PCOM). There is non-visualization of the left posterior communicating artery (PCOM). There is irregularity of the contour of the intradural vertebral arteries. The distal right V4 segment has a potentially hemodynamically significant stenosis with a greater than 50% diameter narrowing. The basilar artery is diffusely irregular contour. The visualized bilateral superior cerebellar (SCA) arteries are normal. The posterior cerebral arteries have diffuse irregularity with multifocal stenosis. There is no demonstrated aneurysm of the [place] of [place]. There are involutional changes of the brain. MRI/MRA Head ONLY without Contrast IMPRESSION: 1. Extensive abnormal appearance of the medium-sized arteries including the cavernous internal carotid arteries, basilar artery and intradural vertebral arteries. The appearance suggests sequela of a vasculopathy rather than typical atherosclerotic disease. 2. 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 Electronically Signed: Laurence Chavez MD at 13:14 EST , Service support ,
--- NOTE | 2020-10-09 01:58 | MRI_ITS ---
STUDY: MRA NECK WITHOUT CONTRAST REASON FOR EXAM: Female, 75 years old patient with right-sided arm/hand tingling. TECHNIQUE: Source images were obtained, MIPs were performed. The study was performed unenhanced. Several images are limited by patient motion. COMPARISON: Prior comparison studies are not available for review at this time. FINDINGS: RIGHT CAROTID ARTERIES: Normal right common carotid artery (CCA). Normal right common carotid bulb. Normal origin of the right internal carotid (ICA) artery without a hemodynamically significant stenosis. Normal visualized cervical portion of the right internal carotid artery. Normal origin of the right external carotid artery (ECA). LEFT CAROTID ARTERIES: Normal left common carotid artery (CCA). Normal left common carotid bulb. Normal origin of the left internal carotid (ICA) artery without a hemodynamically significant stenosis. Normal visualized cervical portion of the left internal carotid artery. Normal origin of the left external carotid artery (ECA). VERTEBRAL ARTERIES: Normal antegrade flow within the bilateral vertebral artery without a hemodynamically significant stenosis. MRI/MRA Neck without Contrast IMPRESSION: No MRA evidence for hemodynamically significant stenosis. Electronically Signed: Laurence Chavez MD at 11:48 EST , Service support ,
--- NOTE | 2020-10-09 01:58 | MRI_ITS ---
STUDY: MRI BRAIN WITHOUT CONTRAST REASON FOR EXAM: Female, 75 years old patient with right-sided arm and hand tingling. TECHNIQUE: Standardized multiplanar fat and water weighted pulse sequences were obtained. COMPARISON: CT of the head dated 10/09/2020. FINDINGS: There is mild cerebral atrophy with widening of the extra-axial spaces and moderate ventricular dilatation. There are a limited number of small white matter hyperintensities, distributed throughout the deep white matter tracts of the cerebral hemispheres, consistent with mild chronic white matter ischemic changes. There is apparent restricted diffusion within the basal ganglia, left greater than right. This could be the result of acute ischemia versus other causes for stereotaxic edema. Normal T2* images of the brain without demonstrated susceptibility artifact. There is no demonstrated hemosiderin stain. Normal bilateral basal ganglia. Normal thalami. There is no extra-axial fluid accumulation. Normal flow voids within the major intracranial circulation suggesting patency by spin echo criteria. Normal sella turcica, pituitary gland, infundibular stalk, optic chiasm and hypothalamus. Normal tectal plate and pineal gland. There is a focus of abnormal T2 hyperintensity within the left paramedian renetta that may be the result of previous ischemia. There are focal areas of encephalomalacia in the left cerebellar hemisphere suggesting sequela of old infarcts. There is also a small focus of encephalomalacia in the right cerebellar hemisphere also consistent with old infarct. There are large basal cisterns. Normal bilateral temporal bones. Normal bilateral internal auditory canals. There are bilateral ocular lens implants with otherwise normal intraorbital contents. Normal visualized paranasal sinuses. Normal calvarium and skull base. Normal visualized soft tissue structures. Normal visualized upper cervical spine. MRI/Brain without Contrast IMPRESSION: 1. Involutional changes of the brain, as described above. 2. 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 3. Restricted diffusion within the basal ganglia could be the result of ischemia or cytotoxic edema.. Electronically Signed: Laurence Chavez MD at 11:57 EST , Service support ,
[2020-10-09 02:14] LABS: Magnesium 1.7 mg/dL (1.6-2.6)
[2020-10-09] MEDS: 0.9% Normal Saline 1,000 ML 100 ML IV (02:33)
--- NOTE | 2020-10-09 05:01 | PCS.PANDOC ---
PANDEMIC DOCUMENTATION INITIATED: Date: 10/09/2020 Time:[id number]
[2020-10-09] MEDS: Levothyroxine 137 MCG Tablet PO (06:41)
[2020-10-09 06:45] LABS: Bedside Glucose 109 mg/dL (70-110)
[2020-10-09] MEDS: Ipratropium 0.5 MG/2.5 ML SOLUTION INHALATION ×2 (07:07→13:04)
[2020-10-09 07:09] LABS: Absolute Lymphocyte Count 3.62 X10^3/uL (0.83-4.51); Absolute Neutrophil Count 5.8 X10^3/uL (2.0-7.7); Basophil# 0.06 X10^3/uL; Basophil% 0.6 % (0-1); Eosinophil# 0.31 X10^3/uL; Hematocrit 29.6 % (37-47); Hemoglobin 9.4 g/dL (12.0-15.0); Lymphocyte # 3.62 X10^3/ul (4.0); Lymphocyte % 34.8 % (19-41); Mean Corp Hgb Conc 31.8 g/dL (32-36); Mean Corpuscular Hgb 29.7 pg (27.0-32.0); Mean Corpuscular Volume 93.7 fL (81-99); Mean Platelet Vol. 10.3 fl (6.2-12.0); Monocyte# 0.59 X10^3/uL; Monocyte% 5.7 % (0-10); NRBC Flagged by Analyzer 0 % (0-5); Neutrophil # 5.79 X10^3/uL (2.7-7.7); Neutrophil % 55.6 % (47-70); Platelet Count 300 K/mm3 (150-450); RBC Distribution Width CV 14.1 % (11.6-14.6); RBC Distribution Width SD 48.6 fl (35.1-43.9); Red Blood Count 3.16 M/mm3 (4.2-5.4); White Blood Count 10.4 K/mm3 (4.4-11.0)
[2020-10-09 07:39] LABS: ALB/GLOB Ratio 0.9 RATIO (0.9-2.4); AST(SGOT) 12 U/L (15-37); Alanine Aminotransfer ALT/SGPT 16 U/L (13-56); Alkaline Phosphatase 87 U/L (45-117); Anion Gap 7 (5-15); BUN 23 mg/dL (7-18); Calcium,Total 8.7 mg/dL (8.5-10.1); Chloride 113 mmol/L (98-107); Cholesterol 136 mg/dL (200); Creatinine, Serum 1.64 mg/dL (0.55-1.02); EST Glomerular Filtration Rate 32 mL/min (>60); Est Glom Filt Rate - Afr Amer 39 mL/min (>60); Estimated Creatinine Clearance 23.08 ml/min; Globulin 3.2 g/dL (2.2-4.2); Glucose 116 mg/dL (74-106); High Density Lipoprotein 35 mg/dL; Potassium 4.5 mmol/L (3.5-5.1); Protein, Total 6.2 g/dL (6.4-8.2); Sodium Level 141 mmol/L (136-145); T4 Free Direct 1.47 ng/dL (0.76-1.46); Thyroid Stim Hormone (TSH) 0.08 uIU/mL (0.358-3.74); Triglycerides 116 mg/dL; Very Low Density Lipoprotein 23 mg/dL (5-40)
[2020-10-09] MEDS: Montelukast 10 MG Tablet PO (09:59)
[2020-10-09] MEDS: Loratadine 10 MG Tablet PO (09:59)
[2020-10-09] MEDS: Clopidogrel Bisulfate 75 MG Tablet PO (09:59)
[2020-10-09] MEDS: Enoxaparin 30 MG/0.3 ML Syringe SC (09:59)
[2020-10-09] MEDS: Allopurinol 100 MG Tablet PO (09:59)
[2020-10-09] MEDS: Aspirin E.C. 81 MG Tablet PO (09:59)
[2020-10-09] MEDS: Pantoprazole Sodium 20 MG Tablet PO (10:01)
[2020-10-09 11:25] LABS: Bedside Glucose 125 mg/dL (70-110)
--- NOTE | 2020-10-09 12:15 | ECHOCS_ITS ---
Reason For Study: RIGHT ARM PRESTHESIA Procedure This was a 2D Doppler, Color Flow transthoracic echocardiogram. The study was technically difficult. Due to body habitus. Contrast injection was performed. Exam performed portable in patient room. Left Ventricle Normal LV size. Left ventricular systolic function is normal. The estimated ejection fraction is 60 %. Stage 1 diastolic dysfunction. No regional wall motion abnormalities noted. Right Ventricle Normal RV size. Normal systolic function. Atria Normal left atrium. Normal right atrium. Bubble contrast study negative for right to left interatrial shunt. Mitral Valve Normal mitral valve. Tricuspid Valve Normal tricuspid valve. Great Vessels Normal aortic root. The pulmonary artery is normal size. Normal inferior vena cava. Pericardium/Pleural No pericardial effusion. Medication Performed a rapid injection of agitated mix of 9 cc saline and 1cc air to assess for atrial septal defect. Diluted definity 3.0ml given slow IV push to enhance endocardial definition. MMode/2D Measurements & Calculations LVIDd: 5.6 cm IVSd: 1.1 cm Ao root diam: 3.3 cm LVIDs: 3.7 cm LVPWd: 1.1 cm FS: 32.7 % LAV(MOD-bp): 63.7 ml LVAd ap4: 31.8 cm2 SV(MOD-sp4): 69.1 ml LAV(MOD-bp) Indexed: 32.4 ml/m2 EDV(MOD-sp4): 101.6 ml LAV(MOD-sp2): 65.2 ml EDV(sp4-el): 102.7 ml LAV(MOD-sp4): 60.9 ml LVAs ap4: 16.3 cm2 ESV(MOD-sp4): 32.5 ml ESV(sp4-el): 32.7 ml EF(MOD-sp4): 68.0 % EF(sp4-el): 68.1 % SV(sp4-el): 70.0 ml LA dimension(2D): 4.4 cm LA A4 area: 19.7 cm2 Time Measurements MV dec time: 0.20 sec Doppler Measurements & Calculations MV E max mik: 62.9 cm/sec Lat Peak E' Mik: 5.4 cm/sec Med Peak E' Mik: 5.0 cm/sec MV A max mik: 97.3 cm/sec E/E' lat: 11.6 E/E' med: 12.7 MV E/A: 0.65 Ao V2 max: 108.0 cm/sec LV V1 max: 79.2 cm/sec PA V2 max: 79.5 cm/sec Ao max P.7 mmHg LV V1 max P.5 mmHg Interpretation Summary Normal LV size. Left ventricular systolic function is normal. The estimated ejection fraction is 60 %. Stage 1 diastolic dysfunction. Bubble contrast study negative for right to left interatrial shunt. Ordering Physician: Alfonso Quiroz Referring Physician: Salena Mcclain Performed By: Penny Crenshaw, DARLENECS, RVT
--- NOTE | 2020-10-09 12:16 | TELEMED_ITS ---
[facility] has confirmed receipt of a request for visit. This document confirms receipt of the order initiating the consult. To find the results of the consultation, please view the patient's reports for the scanned Telemed Consult.
--- NOTE | 2020-10-09 16:35 | DCINST_ITS ---
- Discharge Diagnoses Current Active Problems: Current Active and Chronic Problems (Last Reviewed 02/15/20 @ 13:15 by Niki Lawton) UTI (urinary tract infection) (Acute) Weakness (Acute) CKD (chronic kidney disease) (Chronic) Arm paresthesia, right (Acute) TIA (transient ischemic attack) (Acute) Morbid obesity (Chronic) Diabetes mellitus, type II (Chronic) Hypothyroidism (Chronic) Chronic asthma (Chronic) Atherosclerosis of coronary artery bypass graft without angina pectoris (Chronic) Ischemic cardiomyopathy (Chronic) Chronic combined systolic and diastolic CHF (congestive heart failure) (Chronic) Essential hypertension (Chronic) Hyperlipidemia (Chronic) You will use the following diet at home:: Calorie/Carbohydrate Controlled (specify 1200, 1400, etc) - 1800, Cardiac Your food should be the consistency of: Regular Your liquids should be the consistency of: Regular/Thin Discharge Activity: Return to Normal Activity Call your doctor if you observe: - - weakness. difficulty speaking. Allergies/Adverse Reactions: Allergies albuterol Allergy (Verified 10/08/20 23:59) Shortness of breath Anesthetics - Amide Type - Select A [Anesthetics - Amide Type] Allergy (Verified 10/08/20 23:59) Other STATES BILAT LUNGS COLLAPSED AFTER OPEN HEART SURGERY AND HAVING ANESTHESIA. PT. UNSURE OF WHICH ANESTHESIA MEDS acetaminophen [From Tylenol] Adverse Reaction (Severe, Verified 10/08/20 23:59) Other SEE'S DARK SPOTS cinnamon Adverse Reaction (Unknown, Verified 10/08/20 23:59) Unknown Penicillins Adverse Reaction (Unknown, Verified 10/08/20 23:59) Unknown Medications to take at Discharge Metoprolol Tartrate [Lopressor (beta dima)] 50 mg PO BID 12/17/13 Montelukast [Singulair] 10 mg PO DAILY 12/17/13 Omeprazole [Prilosec] 20 mg PO DAILY 12/17/13 glipiZIDE [Glucotrol] 10 mg PO BIDAC 12/17/13 metFORMIN HCl [Glucophage] 1,000 mg PO BIDCM 12/17/13 aspirin 81 mg tablet,delayed release 81 mg PO QDAY tab 11/19/17 lisinopril 20 mg tablet 20 mg PO DAILY 11/19/17 clopidogrel 75 mg tablet 75 mg PO QDAY tab 12/22/17 levothyroxine 137 mcg capsule 137 mcg PO QDAY 04/17/18 meclizine 12.5 mg tablet 12.5 mg PO TID PRN tab 12/23/17 furosemide 40 mg tablet 40 mg PO DAILY #90 tab 01/22/19 cetirizine 10 mg tablet 10 mg PO QDAY tab 02/15/20 ipratropium bromide 17 mcg/actuation HFA aerosol inhaler 2 puff INHALATION 4X/DAY PRN PRN 02/15/20 pravastatin 80 mg tablet 80 mg PO QHS tab 02/15/20 Allopurinol 100 mg PO DAILY 10/09/20 Primary Care Physician: Salena Mcclain MD [Primary Care Provider] - Within 2 Weeks Test Results: Test results from this visit will be discussed in further detail at your follow- up appointment, if applicable. Please Follow Up With: Dru Roldan MD - neurology When: 2-4 weeks Proposed Discharge Date: 10/09/20
--- NOTE | 2020-10-09 16:36 | PCM.DC.SUM ---
Discharge Date and Diagnosis - Problem List Patient Problems: Active and Suspected Problems (Last Reviewed 02/15/20 @ 13:15 by Niki Lawton) UTI (urinary tract infection) (Acute) Weakness (Acute) Arm paresthesia, right (Acute) TIA (transient ischemic attack) (Acute) Date of Admission: 10/09/20 Date of Discharge: 10/09/20 - Primary Discharge Diagnosis Acute Problems: Active Problems (Last Reviewed 02/15/20 @ 13:15 by Niki Lawton) UTI (urinary tract infection) (Acute) Weakness (Acute) Arm paresthesia, right (Acute) TIA (transient ischemic attack) (Acute) - Secondary Discharge Diagnosis Chronic Problems: Chronic Problems (Last Reviewed 02/15/20 @ 13:15 by Niki Lawton) CKD (chronic kidney disease) (Chronic) Morbid obesity (Chronic) Diabetes mellitus, type II (Chronic) Hypothyroidism (Chronic) Chronic asthma (Chronic) Atherosclerotic heart disease of [place] coronary artery without angina pectoris (Chronic) 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 Chronic involutional and white matter changes. Individualized dose optimization techniques were used for this CT. at 0039 Reported and signed by: Mariia Vasquez MD Electronically Signed: Mariia Vasquez MD at 0:38 EST Tel , Service support , Chest X-Ray 10/09/20 00:25 IMPRESSION: No acute cardiopulmonary abnormality. at 0057 Reported and signed by: Mariia Vasquez MD Electronically Signed: Mariia Vasquez MD at 0:57 EST Tel , Service support , Brain MRI 10/09/20 01:58 IMPRESSION: 1. Involutional changes of the brain, as described above. 2. 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 3. Restricted diffusion within the basal ganglia could be the result of ischemia or cytotoxic edema.. Electronically Signed: Laurence Chavez MD at 11:57 EST , Service support , ADDENDUM: 10/09/20 1413 Head MRA 10/09/20 01:58 IMPRESSION: 1. Extensive abnormal appearance of the medium-sized arteries including the cavernous internal carotid arteries, basilar artery and intradural vertebral arteries. The appearance suggests sequela of a vasculopathy rather than typical atherosclerotic disease. 2. 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 Electronically Signed: Laurence Chavez MD at 13:14 EST , Service support , Neck MRA 10/09/20 01:58 IMPRESSION: No MRA evidence for hemodynamically significant stenosis. Electronically Signed: Laurence Chavez MD at 11:48 EST , Service support , [facility] Operations: None Procedures: 2-D Echocardiogram Summary of Care Provided: The patient is a 75 year old F Chaparro with right arm and hand numbness. Did resolve spontaneously but patient was admitted and underwent a stroke work-up. Patient had an MRI that showed involutional changes of the brain with sequelae of old infarcts involving the cerebellum and renetta. Restricted diffusion within the basal ganglia possibly representing ischemia or cytotoxic edema. With that report, I consulted [facility] telemetry neurology for further recommendations. The neurologist reviewed the MRI and did not see any stroke but did suspect benign findings but did recommend an outpatient MRI of the brain in about 2 weeks in addition to continue with patient's medical therapy. 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 Patient be given structures to follow-up with neurologist, Dr. Roldan, and to get an outpatient MRI for further visualization of her brain to see if these are benign entities or something else such as tumor though unlikely. [] Patient Problems: Active and Suspected Problems (Last Reviewed 02/15/20 @ 13:15 by Niki Lawton) UTI (urinary tract infection) (Acute) Weakness (Acute) Arm paresthesia, right (Acute) TIA (transient ischemic attack) (Acute) - Physical Exam Vitals/I&O's: Vital Signs Temp Pulse Resp BP Pulse Ox 36.7 C 86 18 147/79 H 97 10/09/20 14:00 10/09/20 15:00 10/09/20 14:00 10/09/20 14:00 10/09/20 14:00 Oxygen Delivery Method Room Air Weight: 97.1 kg Body Mass Index (BMI) 38.0 Intake and Output for Last 24 Hours 10/07/20 10/08/20 10/09/20 23:59 23:59 23:59 Intake Total 1597.5 / 1597.5 Output Total 775 / 775 Balance 822.5 / 822.5 General: Alert, No apparent distress HEENT: Atraumatic, Normocephalic Oral: Moist Mucosa, No Gingival or Mucosal Lesions/ Ulcerations Neck: No Nodes, Thyroid Normal Size and Texture Lungs: Clear to auscultation, Normal air movement, No rhonchi, No wheeze, No rales Cardiovascular: Regular rate, Regular Rhythm, Normal S1, Normal S2, No murmurs Abdomen: Bowel Sounds Present, Soft, Non Tender, Non-Distended, No Hepato-splenomegaly Extremities: No edema, No Calf Tenderness Skin: No rashes, No breakdown Neurological: Cranial nerves II-XII grossly intact, Motor Exam 5/5 strength throughout, Coordination normal Psych/Mental Status: Normal Affect, Appropriate Laboratory Results 10/09/20 00:10: Urine Color Yellow, Urine Clarity Clear, Urine pH 6.0, Ur Specific [place] 1.010, Urine Protein 15 H, Urine Glucose (UA) Normal, Urine Ketones Negative, Urine Occult Blood 25 H, Urine Nitrite Negative, Urine Bilirubin Negative, Urine Urobilinogen Normal, Ur Leukocyte Esterase 500 H, Urine RBC 5-10 SEEN, Urine WBC 10-25 SEEN, Ur Squamous Epith Cells 0-5 SEEN, Urine Bacteria RARE, Urine Mucus 0 SEEN 10/09/20 00:20: WBC 13.3 H, RBC 3.58 L, Hgb 10.6 L, Hct 34.0 L, MCV 95.0, MCH 29.6, MCHC 31.2 L, RDW Std Deviation 48.5 H, RDW Coeff of Kamar 13.9, Plt Count 337, MPV 10.1, Immature Gran % (Auto) 0.500, Neut % (Auto) 62.4, Lymph % (Auto) 28.4, [place] % (Auto) 5.9, Eos % (Auto) 2.4, Baso % (Auto) 0.4, Absolute Neuts (auto) 8.3 H, Absolute Lymphs (auto) 3.78, Nucleated RBC % 0 10/09/20 00:20: PT 12.8, INR 1.0, APTT 33.7 10/09/20 00:20: Sodium 139, Potassium 4.7, Chloride 111 H, Carbon Dioxide 21.0, Anion Gap 7, BUN 22 H, Creatinine 1.85 H, Estim Creat Clear Calc 39.74, Est GFR (MDRD) Af Amer 34 L, Est GFR (MDRD) Non-Af 28 L, BUN/Creatinine Ratio 11.9, Glucose 119 H, Calcium 8.8, Total Bilirubin 0.30, AST 12 L, ALT 19, Alkaline Phosphatase 98, Troponin I < 0.015, Total Protein 7.3, Albumin 3.6, Globulin 3.7, Albumin/Globulin Ratio 1.0 10/09/20 00:20: Magnesium 1.7 10/09/20 00:20: Hemoglobin A1c 7.0 H 10/09/20 01:05: Lactic Acid 1.7 10/09/20 06:35: WBC 10.4, RBC 3.16 L, Hgb 9.4 L, Hct 29.6 L, MCV 93.7, MCH 29.7, MCHC 31.8 L, RDW Std Deviation 48.6 H, RDW Coeff of [place]ar 14.1, Plt Count 300, MPV 10.3, Immature Gran % (Auto) 0.300, Neut % (Auto) 55.6, Lymph % (Auto) 34.8, [place] % (Auto) 5.7, Eos % (Auto) 3.0, Baso % (Auto) 0.6, Absolute Neuts (auto) 5.8, Absolute Lymphs (auto) 3.62, Nucleated RBC % 0 10/09/20 06:35: Sodium 141, Potassium 4.5, Chloride 113 H, Carbon Dioxide 21.0, Anion Gap 7, BUN 23 H, Creatinine 1.64 H, Estim Creat Clear Calc 23.08, Est GFR (MDRD) Af Amer 39 L, Est GFR (MDRD) Non-Af 32 L, BUN/Creatinine Ratio 14.0, Glucose 116 H, Calcium 8.7, Total Bilirubin 0.20, AST 12 L, ALT 16, Alkaline Phosphatase 87, Total Protein 6.2 L, Albumin 3.0 L, Globulin 3.2, Albumin/Globulin Ratio 0.9, Triglycerides 116, Cholesterol 136, LDL Cholesterol 78, VLDL Cholesterol 23, HDL Cholesterol 35 L, TSH 0.08 L, Free T4 1.47 H 10/09/20 06:39: POC Glucose 109 10/09/20 11:06: POC Glucose 125 H Current Medications Acetaminophen (Acetaminophen 325 Mg Tablet) 650 mg PO Q6H PRN PRN PRN Reason: Pain Score 1-10/Temp > 100.7 F Al Hydroxide/Mg Hydroxide (Mag Hydrox/Al Hydrox/Simeth 30 Ml Udc) 30 ml PO Q6H PRN PRN PRN Reason: Gastric Burning Allopurinol (Allopurinol 100 Mg Tablet) 100 mg PO DAILY [facility] Last Admin: 10/09/20 09:59 Dose: 100 mg Documented by: Aspirin (Aspirin E.C. 81 Mg Tablet) 81 mg PO DAILY [facility] Last Admin: 10/09/20 09:59 Dose: 81 mg Documented by: Clopidogrel Bisulfate (Clopidogrel Bisulfate 75 Mg Tablet) 75 mg PO DAILY [facility] Last Admin: 10/09/20 09:59 Dose: 75 mg Documented by: Enoxaparin Sodium (Enoxaparin 30 Mg/0.3 Ml Syringe) 30 mg SC DAILY [facility] Last Admin: 10/09/20 09:59 Dose: 30 mg Documented by: Guaifenesin (Guaifenesin 10 Ml Udc (200mg/10ml)) 20 ml PO Q4H PRN PRN PRN Reason: COUGH Hydralazine HCl (Hydralazine 20 Mg/Ml Vial) 5 mg IV Q30M PRN PRN Reason: to maintain BP goals Sodium Chloride () 250 mls @ 15 mls/hr IV .[id number] PRN PRN Reason: Saline Flush Sodium Chloride () 250 mls @ 15 mls/hr IV .[id number] PRN PRN Reason: Additional IVPB Infusion Insulin Human Lispro (Insulin Lispro 100 Unit/Ml Insuln.Pen) 0 unit SC ACHS [facility]; Protocol Last Admin: 10/09/20 16:36 Dose: Not Given Documented by: Ipratropium [place] (Ipratropium 0.5 Mg/2.5 Ml Solution) 0.5 mg INHALATION Q6HWA.RT [facility] Last Admin: 10/09/20 13:04 Dose: 0.5 mg Documented by: Labetalol HCl (Labetalol (Prefilled) 20 Mg/4 Ml) 10 - 20 mg IV Q10M PRN PRN PRN Reason: to Maintain BP Goals Levothyroxine Sodium (Levothyroxine 137 Mcg Tablet) 137 mcg PO DAILY@0600 [facility] Last Admin: 10/09/20 06:41 Dose: 137 mcg Documented by: Loratadine (Loratadine 10 Mg Tablet) 10 mg PO DAILY [facility] Last Admin: 10/09/20 09:59 Dose: 10 mg Documented by: Magnesium Hydroxide (Magnesium Hydroxide 30 Ml Udc) 30 ml PO DAILY PRN PRN PRN Reason: Constipation Melatonin (Melatonin 3 Mg Tablet) 3 mg PO QHS PRN PRN PRN Reason: INSOMNIA Montelukast Sodium (Montelukast 10 Mg Tablet) 10 mg PO DAILY [facility] Last Admin: 10/09/20 09:59 Dose: 10 mg Documented by: Nitroglycerin (Nitroglycerin (Inpatient Use) 0.4 Mg Tab.Subl) 0.4 mg SUBLINGUAL Q5M PRN PRN Reason: CARDIAC/CHEST PAIN Ondansetron HCl (Ondansetron 4 Mg/2 Ml Vial) 4 mg IV Q8H PRN PRN PRN Reason: NAUSEA/VOMITING Pantoprazole Sodium (Pantoprazole Sodium 20 Mg Tablet) 20 mg PO DAILY [facility] Last Admin: 10/09/20 10:01 Dose: 20 mg Documented by: Pravastatin Sodium (Pravastatin 80 Mg Tablet) 80 mg PO QHS [facility] Prochlorperazine Edisylate (Prochlorperazine 10 Mg/2 Ml Vial) 5 mg IV Q4H PRN PRN PRN Reason: Breakthrough Nausea/Vomiting Psyllium Hydrophilic Mucilloid (Psyllium 1 Packet) 1 packet PO DAILY PRN PRN PRN Reason: Constipation Senna/Docusate Sodium (Senna/Docusate Sodium 1 Tablet) 2 tablet PO BID PRN PRN PRN Reason: Constipation Sodium Chloride (0.9% Saline Lock 10 Ml Syringe) 10 - 40 ml IV UD PRN PRN Reason: SALINE FLUSH Throat Lozenges (Benzocaine/Menthol 1 Lozenge) 1 lozenge MUCOUS MEM Q2H PRN PRN PRN Reason: SORE THROAT Discharge Diet: Low fat/ Low Cholesterol, 1800 Calorie Control Diet Discharge Activity: Return to Normal Activity Call your doctor if you observe: - - weakness. difficulty speaking. Home Medications: Medications to take at Discharge Metoprolol Tartrate [Lopressor (beta dima)] 50 mg PO BID 12/17/13 Montelukast [Singulair] 10 mg PO DAILY 12/17/13 Omeprazole [Prilosec] 20 mg PO DAILY 12/17/13 glipiZIDE [Glucotrol] 10 mg PO BIDAC 12/17/13 metFORMIN HCl [Glucophage] 1,000 mg PO BIDCM 12/17/13 aspirin 81 mg tablet,delayed release 81 mg PO QDAY tab 11/19/17 lisinopril 20 mg tablet 20 mg PO DAILY 11/19/17 clopidogrel 75 mg tablet 75 mg PO QDAY tab 12/22/17 levothyroxine 137 mcg capsule 137 mcg PO QDAY 12/23/17 meclizine 12.5 mg tablet 12.5 mg PO TID PRN tab 12/23/17 furosemide 40 mg tablet 40 mg PO DAILY #90 tab 01/22/19 cetirizine 10 mg tablet 10 mg PO QDAY tab 02/15/20 ipratropium bromide 17 mcg/actuation HFA aerosol inhaler 2 puff INHALATION 4X/DAY PRN PRN 02/15/20 pravastatin 80 mg tablet 80 mg PO QHS tab 02/15/20 Allopurinol 100 mg PO DAILY 10/09/20 Primary Care Physician: Salena Mcclain MD [Primary Care Provider] - Within 2 Weeks Please Follow Up With: Dru Roldan MD - neurology When: 2-4 weeks Disposition: Home Minutes spent on discharge:: 32 Patient Condition:: Good Medical Necessity - Tobacco Use Smoking Status: Never smoker Tobacco Use: Non-smoker Meaningful Use Info Meaningful Use Diagnoses (Choose all that apply): None applicable OBSV E&M: 55514 Observation care discharge
--- NOTE | 2020-10-10 09:26 | CASEMGMT ---
SW was not able to complete PHQ 9 as patient was discharged. Veronica WEAVER MSW
== END 2020-10-09 16:36 | disposition home or self-care (01) ==
LOC: ED 10-09 00:42 → PCU 10-09 01:26
PROVIDERS: Admitting Provider Family Medicine; Emergency Provider Emergency Medicine; PCP Family Medicine
DX: N39.0 Urinary tract infection, site not specified (principal); G45.9 Transient cerebral ischemic attack, unspecified; R53.1 Weakness; R20.2 Paresthesia of skin; I13.0 Hypertensive heart and chronic kidney disease with heart failure and stage 1 through stage 4 chronic kidney disease, or unspecified chronic kidney disease; E11.22 Type 2 diabetes mellitus with diabetic chronic kidney disease; N18.30 Chronic kidney disease, stage 3 unspecified; E78.5 Hyperlipidemia, unspecified; I25.5 Ischemic cardiomyopathy; I25.2 Old myocardial infarction; I50.42 Chronic combined systolic (congestive) and diastolic (congestive) heart failure; I25.10 Atherosclerotic heart disease of native coronary artery without angina pectoris; E03.9 Hypothyroidism, unspecified; E66.01 Morbid (severe) obesity due to excess calories; J45.909 Unspecified asthma, uncomplicated; K21.9 Gastro-esophageal reflux disease without esophagitis; Z79.899 Other long term (current) drug therapy; Z79.02 Long term (current) use of antithrombotics/antiplatelets; Z79.84 Long term (current) use of oral hypoglycemic drugs; Z79.82 Long term (current) use of aspirin; Z68.41 Body mass index [BMI] 40.0-44.9, adult; Z95.1 Presence of aortocoronary bypass graft; D64.9 Anemia, unspecified
CPT/HCPCS: 36415; 70450; 70544; 70547; 70551; 71045; 80053; 80061; 81001; 82962; 83036; 83605; 83735; 84439; 84443; 84484; 85025; 85610; 85730; 87040; 87086; 87088; 92610; 93005; 93306; 94640; 96361; 96365; 96372; 97162; 97166; 97802; 99218; 99285; J7030; Q9957; A4216; C8929; G0378

== ENCOUNTER 2021-01-17 06:26 | Emergency (ER) | payer MEDICARE, SELFPAY ==
[2020-10-09 01:59] VITALS: BMI 38.0
[2021-01-17 06:29] VITALS: BP 156/60; PULSE 86; RESP 18; TEMP 37.1; O2SAT 97
[2021-01-17 06:31] VITALS: O2SAT 97
--- NOTE | 2021-01-17 06:39 | EX.ED.DYSGE1 ---
HPI History of Present Illness Chief Complaint: Cough Informant: patient Onset/Context/Timing Onset: Days Context: Gradual Onset Timing: Waxes and wanes Current Severity: Moderate Maximum Severity: Moderate Narrative Narrative: Patient present secondary to cough and shortness of breath. She states she became ill on January 14. She had cough and congestion. She was seen at the [place] emergency room. She was diagnosed with an upper respiratory infection and given Zithromax. Patient states she did test negative for Covid. Patient states she felt well on Friday but on Friday began to develop worsening shortness of breath and cough. She is bringing up thick yellow sputum. She reports some mild chills but no fever. She reports some intermittent wheezing. 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 Type 2 diabetes mellitus without complication Vertigo Home Medications glipizide 10 mg PO BIDAC 12/17/13 [History Last Taken 10/08/20] metformin 1,000 mg PO BIDCM 12/17/13 [History Last Taken 10/08/20] metoprolol tartrate 50 mg PO BID 12/17/13 [History Last Taken 10/08/20] montelukast 10 mg PO DAILY 12/17/13 [History Last Taken 10/08/20] omeprazole 20 mg PO DAILY 12/17/13 [History Last Taken 10/08/20] aspirin 81 mg tablet,delayed release 81 mg PO QDAY tab 11/19/17 [History Last Taken 10/08/20] lisinopril 20 mg tablet 20 mg PO DAILY 11/19/17 [History Last Taken 10/08/20] clopidogrel 75 mg tablet 75 mg PO QDAY tab 12/22/17 [History Last Taken 10/08/20] levothyroxine 137 mcg capsule 137 mcg PO QDAY 12/23/17 [History Last Taken 10/08/20] meclizine 12.5 mg tablet 12.5 mg PO TID PRN tab 12/23/17 [History Last Taken Unknown] furosemide 40 mg tablet 40 mg PO DAILY #90 tab 01/22/19 [Rx Last Taken 10/08/20] cetirizine 10 mg tablet 10 mg PO QDAY tab 02/15/20 [History Last Taken 10/08/20] ipratropium bromide 17 mcg/actuation HFA aerosol inhaler 2 puff INHALATION 4X/DAY PRN PRN 02/15/20 [History Last Taken Unknown] pravastatin 80 mg tablet 80 mg PO QHS tab 02/15/20 [History Last Taken 10/07/20] Allopurinol 100 mg PO DAILY 10/09/20 [History Last Taken 10/08/20] nitrofurantoin monohyd/m-cryst 100 mg PO Q12 #10 cap 10/09/20 [Rx Last Taken Unknown] benzonatate [Tessalon Perles] 200 mg PO BID PRN #10 cap 01/17/21 [Rx Last Taken Unknown] guaifenesin [Mucus Relief ER] 1,200 mg PO BID #7 tab 01/17/21 [Rx Last Taken Unknown] prednisone 40 mg PO DAILY 3 Days #6 tab 01/17/21 [Rx Last Taken Unknown] Allergy/AdvReac Type Severity Reaction Status Date / Time albuterol Allergy Shortness Verified 01/17/21 06:27 of breath Anesthetics - Amide Type - Allergy Other Verified 01/17/21 06:27 Select A [Anesthetics - Amide Type] acetaminophen [From Tylenol] AdvReac Severe Other Verified 01/17/21 06:27 cinnamon AdvReac Unknown Unknown Verified 01/17/21 06:27 Penicillins AdvReac Unknown Unknown Verified 01/17/21 06:27 Family History Mother , age 86, advanced age No problems noted. Father Prostate cancer Surgical History H/O coronary artery bypass surgery (10/11/07) History of cholecystectomy History of coronary artery stent placement (11/05/19) History of hysterectomy Hx of appendectomy Hx of bilateral cataract extraction Social History Smoking Status: Never smoker alcohol intake: never substance use type: does not use caffeine: Yes Type: carbonated beverages what type of physical activity do you participate in: none seatbelt use: always do you feel safe at home: Yes ROS ROS ED Constitutional Constitutional ED: Reports chills; Denies fever(s) Eyes Eyes: Denies change in vision ENT ENT ED: Reports sore throat and other Details: Initially had sore throat, now resolved Cardiovascular Cardiovascular: Denies chest pain Respiratory/Chest Respiratory/Chest: Reports cough, dyspnea and sputum Gastrointestinal Gastrointestinal: Denies abdominal pain, diarrhea, nausea or vomiting Genitourinary Genitourinary ED: Denies dysuria Musculoskeletal Musculoskeletal: Denies back pain Integumentary Denies rash Neurologic Neurologic: Denies headache(s) or weakness Psychiatric Psychiatric: Denies anxiety or depression Endocrine Endocrinology: Denies polydipsia or polyuria Allergic/Immunologic Allergic/Immunologic ED: Denies urticaria EXAM Physical Exam Const Vital Signs: 01/17/21 06:29 01/17/21 06:31 Temperature 98.8 F Temperature Source Oral Pulse Rate 86 Respiratory Rate 18 Respiratory Effort Normal Respiratory Depth Normal Respiratory Pattern Tachypnea Blood Pressure 156/60 H Blood Pressure Mean 92 Pulse Ox 97 Oxygen Delivery Method Room Air Room Air Positive well nourished and well developed General Appearance ED: well developed HEENT Reports normocephalic, head/scalp atraumatic, TM's clear and moist mucous membranes HEENT Narrative: Normal posterior pharynx exam Tympanic Membrane ED: Yes TM's clear Eyes PERRL and EOMs intact bilaterally Neck supple Chest Wall inspection of chest normal and palpation of chest normal Resp normal respiratory effort and clear to auscultation bilaterally Cardio regular rate and regular rhythm GI normal to inspection, nondistended, normoactive bowel sounds Palpation: soft Back/Spine no CVA tenderness Extremity normal to inspection Neuro oriented x3 and no sensory deficits noted Sensorium / Orientation: alert Motor Exam: strength 5/5 throughout Psych mental status grossly normal Skin no rashes or lesions noted MDM MDM MDM Narrative Medical decision making narrative: Patient given Mucinex and Tessalon Perles. Two-view chest x-ray is obtained. Per my interpretation no focal infiltrate. Radiography Chest X-Ray - ED: 2 View, Read by ED Physician and No Infiltrates Diagnostic Testing: Radiology Impression Chest X-Ray 01/17/21 06:45 IMPRESSION: No evidence for acute cardiopulmonary pathology. Electronically Signed: Sharif Miguel MD at 7:12 EDT , Service support , Treatment and Re-Evaluation Comments:: Test results discussed with patient and family at bedside. At this time she does appear to have a viral URI. She is already on Zithromax from another hospital. I will write her Mucinex, Tessalon, and 3-day burst of prednisone to help control her symptoms. Discharge Plan Triage Chief Complaint: Cough ED Provider: Molly Kunz Dx/Rx/DC Orders Clinical Impression: Viral URI with cough Instructions: ED URI, Viral W/ Wheezing (Adult) Prescriptions: New Mucus Relief ER 1,200 mg tablet extended release 12hr 1,200 mg PO BID Qty: 7 RF: 0 prednisone 20 mg tablet 40 mg PO DAILY 3 Days Qty: 6 RF: 0 benzonatate [Tessalon Perles] 100 mg capsule 200 mg PO BID PRN (Reason: cough) Qty: 10 RF: 0 No Action levothyroxine 137 mcg capsule 137 mcg capsule 137 mcg PO QDAY RF: 0 lisinopril 20 mg tablet 20 mg PO DAILY RF: 0 aspirin 81 mg tablet,delayed release (DR/EC) 81 mg PO QDAY RF: 0 clopidogrel 75 mg tablet 75 mg PO QDAY RF: 0 meclizine 12.5 mg tablet 12.5 mg PO TID PRN (Reason: Dizziness) RF: 0 cetirizine [Zyrtec] 10 mg tablet 10 mg PO QDAY RF: 0 furosemide [Lasix] 40 mg tablet 40 mg PO DAILY Qty: 90 RF: 4 pravastatin 80 mg tablet 80 mg PO QHS RF: 0 glipizide 10 MG tablet 10 mg PO BIDAC RF: 0 metformin 1,000 MG tablet 1,000 mg PO BIDCM RF: 0 metoprolol tartrate 50 MG tablet 50 mg PO BID RF: 0 omeprazole 20 MG capsule 20 mg PO DAILY RF: 0 montelukast 10 MG tablet 10 mg PO DAILY RF: 0 ipratropium bromide 17 mcg/actuation HFA aerosol inhaler 2 puff INHALATION 4X/DAY PRN PRN (Reason: Asthma) RF: 0 Allopurinol 100 mg PO DAILY RF: 0 nitrofurantoin monohyd/m-cryst 100 MG capsule 100 mg PO Q12 Qty: 10 RF: 0 Primary Care Provider: Salena Mcclain Referrals: Salena Mcclain MD [Primary Care Provider] - 1 Week Disposition Disposition: Home, self care
--- NOTE | 2021-01-17 06:45 | RAD_ITS ---
STUDY: X-RAY CHEST REASON FOR EXAM: Female, 75 years old. cough, SOB, recent diagnosis of sinus infection, negative for Covid, pt. states she feels like she is getting worse TECHNIQUE: Frontal and lateral views of the chest. COMPARISON: 10/09/2020. FINDINGS: There is mild chronic atelectasis or fibrosis in the lung bases. There are no confluent pulmonary infiltrates. There is no demonstrated pleural abnormality. Normal size heart. There are sternotomy wires and surgical clips suggesting previous CABG. Normal mediastinum and teri. There is atherosclerotic calcification of the aortic arch. There are no demonstrated acute fractures or destructive bone lesions. There is no demonstrated abnormality of the visualized soft tissue structures of the upper abdomen. RAD/Chest PA and Lateral IMPRESSION: No evidence for acute cardiopulmonary pathology. Electronically Signed: Sharif Miguel MD at 7:12 EDT , Service support ,
[2021-01-17] MEDS: guaiFENesin 1,200 MG Tablet 1200 MG PO (07:18)
[2021-01-17] MEDS: Benzonatate 100 MG Capsule PO (07:19)
[2021-01-17 07:30] VITALS: PULSE 86; RESP 16; O2SAT 98
== END 2021-01-17 07:31 | disposition home or self-care (01) ==
PROVIDERS: Emergency Provider Emergency Medicine; PCP Family Medicine
DX: J06.9 Acute upper respiratory infection, unspecified (principal); J44.9 Chronic obstructive pulmonary disease, unspecified; I25.810 Atherosclerosis of coronary artery bypass graft(s) without angina pectoris; I10 Essential (primary) hypertension; K21.9 Gastro-esophageal reflux disease without esophagitis; E78.5 Hyperlipidemia, unspecified; E11.9 Type 2 diabetes mellitus without complications; E03.9 Hypothyroidism, unspecified; Z79.899 Other long term (current) drug therapy; Z79.52 Long term (current) use of systemic steroids; Z79.84 Long term (current) use of oral hypoglycemic drugs
CPT/HCPCS: 71046; 99283

== ENCOUNTER 2021-01-25 23:02 | Inpatient (IN) | payer MEDICARE, SELFPAY ==
[2021-01-25 23:03] VITALS: BP 222/95; PULSE 102; RESP 15; TEMP 36.8; O2SAT 98; BMI 39.7
--- NOTE | 2021-01-25 23:05 | ED.RN ---
CALLED FOR EKG PER RN REQUEST, PULLED OLD EKGS FOR
--- NOTE | 2021-01-25 23:08 | EKG12_ITS ---
Test Reason : CP Blood Pressure : / mmHG Vent. Rate : 102 BPM Atrial Rate : 102 BPM P-R Int : 142 ms QRS Dur : 100 ms QT Int : 330 ms P-R-T Axes : 069 048 121 degrees QTc Int : 430 ms Sinus tachycardia Nonspecific ST and T wave abnormality Abnormal ECG Confirmed by HAILE DUQUE, NITIN ([id number]), videotape editor SUKHDEEP CONTRERAS ([id number]) on 01/30/2021 10:08:13 A M Referred By: MAY Confirmed By:ELIAS BE MD
--- NOTE | 2021-01-25 23:09 | EDS_ITS ---
HPI History of Present Illness Chief Complaint: Chest Pain Informant: patient Onset/Context/Timing Onset: Days Activity at onset: gradual Timing: Intermittent Quality: Positive for Heaviness and Tightness Location: Right Parasternal Maximum Severity: Moderate Worsened By: Exertion Relieved By: Nothing Associated Symptoms: Positive for Diaphoresis and Dyspnea Narrative Narrative: The patient is a 75-year-old female with medical history significant for coronary vascular disease, prior 6 vessel CABG, history of NSTEMI, hypertension, chronic kidney disease who presents to the emergency department with chest pain. Patient states for the past 3 days, she has been having intermittent tightness in her right arm. She states today, she did have substernal chest heaviness. She states she took 4 aspirin and it seemed to resolve. Patient states that she has an area that was told that she would likely need stented, but it has been put off. She does follow with Dr. Win. She states she been compliant with her medications. 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 CHF (congestive heart failure) COPD (chronic obstructive pulmonary disease) Essential hypertension GERD (gastroesophageal reflux disease) Hyperlipidemia Hypothyroidism Ischemic cardiomyopathy Non-ST elevated myocardial infarction (non-STEMI) (11/05/19) Obesity 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 Type 2 diabetes mellitus without complication Vertigo Home Medications glipizide 10 mg PO BIDAC 12/17/13 [History Last Taken 10/08/20] metformin 1,000 mg PO BIDCM 12/17/13 [History Last Taken 10/08/20] metoprolol tartrate 50 mg PO BID 12/17/13 [History Last Taken 10/08/20] montelukast 10 mg PO DAILY 12/17/13 [History Last Taken 10/08/20] omeprazole 20 mg PO DAILY 12/17/13 [History Last Taken 10/08/20] aspirin 81 mg tablet,delayed release 81 mg PO QDAY tab 11/19/17 [History Last Taken 10/08/20] lisinopril 20 mg tablet 20 mg PO DAILY 11/19/17 [History Last Taken 10/08/20] clopidogrel 75 mg tablet 75 mg PO QDAY tab 12/22/17 [History Last Taken 10/08/20] levothyroxine 137 mcg capsule 137 mcg PO QDAY 12/23/17 [History Last Taken 10/08/20] meclizine 12.5 mg tablet 12.5 mg PO TID PRN tab 12/23/17 [History Last Taken Unknown] furosemide 40 mg tablet 40 mg PO DAILY #90 tab 01/22/19 [Rx Last Taken 10/08/20] cetirizine 10 mg tablet 10 mg PO QDAY tab 02/15/20 [History Last Taken 10/08/20] ipratropium bromide 17 mcg/actuation HFA aerosol inhaler 2 puff INHALATION 4X/DAY PRN PRN 02/15/20 [History Last Taken Unknown] pravastatin 80 mg tablet 80 mg PO QHS tab 02/15/20 [History Last Taken 10/07/20] Allopurinol 100 mg PO DAILY 10/09/20 [History Last Taken 10/08/20] benzonatate [Tessalon Perles] 200 mg PO BID PRN #10 cap 01/17/21 [Rx Last Taken Unknown] guaifenesin [Mucus Relief ER] 1,200 mg PO BID #7 tab 01/17/21 [Rx Last Taken Unknown] prednisone 40 mg PO DAILY 3 Days #6 tab 01/17/21 [Rx Last Taken Unknown] doxycycline hyclate 100 mg PO BID 01/25/21 [History Last Taken Unknown] Allergy/AdvReac Type Severity Reaction Status Date / Time albuterol Allergy Shortness Verified 01/25/21 23:08 of breath Anesthetics - Amide Type - Allergy Other Verified 01/25/21 23:08 Select A [Anesthetics - Amide Type] acetaminophen [From Tylenol] AdvReac Severe Other Verified 01/25/21 23:08 cinnamon AdvReac Unknown Unknown Verified 01/25/21 23:08 Penicillins AdvReac Unknown Unknown Verified 01/25/21 23:08 Family History Mother , age 86, advanced age No problems noted. Father Prostate cancer Surgical History H/O coronary artery bypass surgery (10/11/07) History of cholecystectomy History of coronary artery stent placement (11/05/19) History of hysterectomy Hx of appendectomy Hx of bilateral cataract extraction Social History Smoking Status: Never smoker alcohol intake: never substance use type: does not use caffeine: Yes Type: carbonated beverages what type of physical activity do you participate in: none seatbelt use: always do you feel safe at home: Yes ROS ROS ED Constitutional Constitutional ED: Denies chills or fever(s) Eyes Eyes: Denies blurry vision or change in vision ENT ENT ED: Denies ear pain or sore throat Cardiovascular Cardiovascular: Reports chest pain; Denies palpitations Respiratory/Chest Respiratory/Chest: Reports dyspnea; Denies cough or dyspnea on exertion Gastrointestinal Gastrointestinal: Denies abdominal pain, nausea or vomiting Genitourinary Genitourinary ED: Denies dysuria or urinary frequency Musculoskeletal Musculoskeletal: Denies arthralgias or myalgias Integumentary Denies rash Neurologic Neurologic: Denies headache(s) or paresthesias Psychiatric Psychiatric: Denies anxiety or depression Endocrine Endocrinology: Denies polydipsia or polyuria Allergic/Immunologic Allergic/Immunologic ED: Denies urticaria EXAM Physical Exam Const Vital Signs: 01/25/21 23:03 01/25/21 23:07 01/25/21 23:09 Temperature 98.3 F Temperature Source Oral Pulse Rate 102 H Respiratory Rate 15 Respiratory Effort Normal Non-Labored Blood Pressure 222/95 H Blood Pressure Mean 137 Pulse Ox 98 Oxygen Delivery Method Room Air Room Air Positive well nourished and well developed General Appearance ED: well developed HEENT Reports normocephalic, head/scalp atraumatic and moist mucous membranes Eyes PERRL and EOMs intact bilaterally Neck no lymphadenopathy and supple General: Negative for tenderness Chest Wall inspection of chest normal Resp normal respiratory effort and clear to auscultation bilaterally Cardio regular rate, regular rhythm and no murmurs GI normal to inspection, nondistended, normoactive bowel sounds Palpation: Negative for tender, guarding or rebound tenderness present Back/Spine no CVA tenderness Cervical Spine: Negative for cervical spine tenderness Thoracic Spine / Upper Back: Negative for thoracic spinal tenderness Extremity normal to inspection General Extremety ED: Negative for tenderness Neuro oriented x3 and CN's II-XII intact bilaterally Neuro Narrative: No focal deficits appreciated. Sensorium / Orientation: alert Psych mental status grossly normal Skin no rashes or lesions noted, no wounds and skin turgor normal Heart Score History: Highly Suspicious ECG: Significant ST-Depression Age: >/= 65 years Risk Factors: >/= 3 Risk Factors or History of CAD Troponin: </= Normal Limit Score: 8 MDM MDM MDM Narrative Medical decision making narrative: Patient presents to the emergency department with chest pain. About the time she arrived, she states that she is pain-free. EKG was obtained. It was sinus tachycardia. She does have some diffuse ST depression. The patient was markedly hypertensive on arrival. She underwent metabolic work-up. She does have a mild leukocytosis. She is also significantly hyperglycemic. She does have evidence of mild kidney disease, but does appear to be chronic. Chest x-ray is obtained. Is reviewed by both myself and the radiologist. There is no evidence of acute volume overload. Patient's cardiac enzymes were negative. However, in light of her EKG changes and chest pain I do feel that she would benefit from admission. The patient was discussed with the hospitalist. Impression 1. Chest pain with EKG changes Lab Data Attestation: I reviewed the patient's lab results. Labs: Laboratory Results - last 24 hr 01/25/21 01/25/21 01/25/21 23:10 23:10 23:10 WBC 14.5 H RBC 3.90 L Hgb 11.4 L Hct 35.3 L MCV 90.5 MCH 29.2 MCHC 32.3 RDW Std Deviation 42.7 RDW Coeff of Kamar 13.0 Plt Count 385 MPV 9.9 Immature Gran % (Auto) 1.900 H Neut % (Auto) 86.4 H Lymph % (Auto) 9.4 L [place] % (Auto) 2.2 Eos % (Auto) 0.0 Baso % (Auto) 0.1 Absolute Neuts (auto) 12.5 H Absolute Lymphs (auto) 1.36 Nucleated RBC % 0 Sodium 134 L Potassium 5.2 H Chloride 106 Carbon Dioxide 20.0 L Anion Gap 8 BUN 41 H Creatinine 2.02 H Estim Creat Clear Calc 18.74 Est GFR (MDRD) Af Amer 31 L Est GFR (MDRD) Non-Af 25 L BUN/Creatinine Ratio 20.3 H Glucose 478 H* Calcium 8.6 Troponin I 0.016 B-Natriuretic Peptide 544.1 H Radiography Chest X-Ray - ED: 1 View, Read by ED Physician, Normal, Lungs, Mediastinum, Bony Structures and Cardiomegaly EKG Initial EKG: Attestation: I personally reviewed and interpreted this EKG as follows: Interpretation: Sinus Rhythm and S-T Depression Prior EKG tracings: available for review Prior: Changed Discharge Plan Triage Chief Complaint: Chest Pain ED Provider: Beto Sampson Dx/Rx/DC Orders Prescriptions: No Action levothyroxine 137 mcg capsule 137 mcg capsule 137 mcg PO QDAY RF: 0 lisinopril 20 mg tablet 20 mg PO DAILY RF: 0 aspirin 81 mg tablet,delayed release (DR/EC) 81 mg PO QDAY RF: 0 clopidogrel 75 mg tablet 75 mg PO QDAY RF: 0 meclizine 12.5 mg tablet 12.5 mg PO TID PRN (Reason: Dizziness) RF: 0 cetirizine [Zyrtec] 10 mg tablet 10 mg PO QDAY RF: 0 furosemide [Lasix] 40 mg tablet 40 mg PO DAILY Qty: 90 RF: 4 pravastatin 80 mg tablet 80 mg PO QHS RF: 0 glipizide 10 MG tablet 10 mg PO BIDAC RF: 0 metformin 1,000 MG tablet 1,000 mg PO BIDCM RF: 0 metoprolol tartrate 50 MG tablet 50 mg PO BID RF: 0 omeprazole 20 MG capsule 20 mg PO DAILY RF: 0 montelukast 10 MG tablet 10 mg PO DAILY RF: 0 ipratropium bromide 17 mcg/actuation HFA aerosol inhaler 2 puff INHALATION 4X/DAY PRN PRN (Reason: Asthma) RF: 0 Allopurinol 100 mg PO DAILY RF: 0 Mucus Relief ER 1,200 mg tablet extended release 12hr 1,200 mg PO BID Qty: 7 RF: 0 prednisone 20 mg tablet 40 mg PO DAILY 3 Days Qty: 6 RF: 0 benzonatate [Tessalon Perles] 100 mg capsule 200 mg PO BID PRN (Reason: cough) Qty: 10 RF: 0 doxycycline hyclate 100 mg capsule 100 mg PO BID RF: 0 Primary Care Provider: Salena Mcclain
[2021-01-25 23:20] LABS: Absolute Lymphocyte Count 1.36 X10^3/uL (0.83-4.51); Absolute Neutrophil Count 12.5 X10^3/uL (2.0-7.7); Basophil# 0.02 X10^3/uL; Basophil% 0.1 % (0-1); Hematocrit 35.3 % (37-47); Hemoglobin 11.4 g/dL (12.0-15.0); Lymphocyte # 1.36 X10^3/ul (0.83-4.51); Lymphocyte % 9.4 % (19-41); Mean Corp Hgb Conc 32.3 g/dL (32-36); Mean Corpuscular Hgb 29.2 pg (27.0-32.0); Mean Corpuscular Volume 90.5 fL (81-99); Mean Platelet Vol. 9.9 fl (6.2-12.0); Monocyte# 0.32 X10^3/uL; Monocyte% 2.2 % (0-10); NRBC Flagged by Analyzer 0 % (0-5); Neutrophil # 12.52 X10^3/uL (2.7-7.7); Neutrophil % 86.4 % (47-70); Platelet Count 385 K/mm3 (150-450); RBC Distribution Width SD 42.7 fl (35.1-43.9); White Blood Count 14.5 K/mm3 (4.4-11.0)
--- NOTE | 2021-01-25 23:25 | RAD_ITS ---
STUDY: X-RAY CHEST REASON FOR EXAM: Female, 75 years old. chest pain, hx of previous heart attacks. hx of bypass surgery TECHNIQUE: Single frontal view of the chest. COMPARISON: 01/17/2021 FINDINGS: Patient is rotated. There is no pneumothorax or pleural effusion identified. Atelectasis/scarring within the lung bases. Chronic interstitial changes. . There is no focal consolidation identified. Sternal cerclage wires and vascular clips are present from a prior sternotomy and coronary artery bypass graft procedure (CABG). Cardiomegaly. Aortic calcifications. There are diffuse degenerative changes of the visualized thoracic spine. Scoliotic curvature to the spine. There is degenerative osteoarthritis of the bilateral shoulders. There is no demonstrated abnormality of the visualized soft tissue structures of the upper abdomen. RAD/Chest 1 View (Portable) IMPRESSION: Chronic lung findings. No acute cardiac pulmonary disease identified. Electronically Signed: Jason Frey MD at 0:02 EDT Tel , Service support ,
[2021-01-25 23:44] LABS: BNP,B-Type NATRIURETIC PEPTIDE 544.1 pg/mL (0-100)
[2021-01-25 23:58] LABS: Anion Gap 8 (5-15); BUN 41 mg/dL (7-18); BUN/Creat Ratio 20.3 RATIO (10-20); Calcium,Total 8.6 mg/dL (8.5-10.1); Chloride 106 mmol/L (98-107); Creatinine, Serum 2.02 mg/dL (0.55-1.02); EST Glomerular Filtration Rate 25 mL/min (>60); Est Glom Filt Rate - Afr Amer 31 mL/min (>60); Estimated Creatinine Clearance 18.74 ml/min; Glucose 478 mg/dL (74-106); Potassium 5.2 mmol/L (3.5-5.1); Sodium Level 134 mmol/L (136-145)
[2021-01-26] VITALS (25 sets, daily range): BP systolic 146–200; BP diastolic 50–89; PULSE 62–99; RESP 12–19; TEMP 36.6–37.1; O2SAT 93–100; BMI 38.1
--- NOTE | 2021-01-26 00:20 | HP.PCM.HOS_ITS ---
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 ED on 01/26/21 with ~2 week history of ongoing productive cough of green sputum, dyspnea with wheezing without fever or chills with recent administration now 2nd round prednisone steroid taper in addition to 01/25/21 start on doxycycline for acute bronchitis with concurrent 3 day onset of mild RUE vague discomfort with on day of ED presentation transition to her midsternal chest region with tightness with discomfort radiation to her neck BL with no associated dyspnea, diaphoresis, nausea or emesis with self administration of ASA 81 mg x 4 with resolution of discomfort. She rated her discomfort 10/10 in severity, currently resolved upon evaluation. Work-up in the ED included T 98.3, heart rate 102 initially with improvement to 78, BP initially 222/95 with improvement to 198/89, respiratory rate 16, 97% on room air, CBC with WC 14.5, hemoglobin 1.4, platelets 45 with left shift, BMP with sodium 134, potassium 5.2, carbon oxide 20, BUN/creatinine 41/2.02, glucose 478, troponin 0.016, BNP 544.1, chest x-ray with no acute cardiopulmonary findings, EKG with SR with ST depressions V4-V6 new from prior. From records 10/2019 last catheterization with ? PCI to SVG with follow-up 11/2019 stress test. 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 Type 2 diabetes mellitus without complication Vertigo Home Medications glipizide 10 mg PO BIDAC 04/11/14 [History Last Taken 10/08/20] metformin 1,000 mg PO BIDCM 12/17/13 [History Last Taken 10/08/20] metoprolol tartrate 50 mg PO BID 12/17/13 [History Last Taken 10/08/20] montelukast 10 mg PO DAILY 12/17/13 [History Last Taken 10/08/20] omeprazole 20 mg PO DAILY 12/17/13 [History Last Taken 10/08/20] aspirin 81 mg tablet,delayed release 81 mg PO QDAY tab 11/19/17 [History Last Taken 10/08/20] lisinopril 20 mg tablet 20 mg PO DAILY 11/19/17 [History Last Taken 10/08/20] clopidogrel 75 mg tablet 75 mg PO QDAY tab 12/22/17 [History Last Taken 10/08/20] levothyroxine 137 mcg capsule 137 mcg PO QDAY 12/23/17 [History Last Taken 10/08/20] meclizine 12.5 mg tablet 12.5 mg PO TID PRN tab 12/23/17 [History Last Taken Unknown] furosemide 40 mg tablet 40 mg PO DAILY #90 tab 01/22/19 [Rx Last Taken 10/08/20] cetirizine 10 mg tablet 10 mg PO QDAY tab 02/15/20 [History Last Taken 10/08/20] ipratropium bromide 17 mcg/actuation HFA aerosol inhaler 2 puff INHALATION 4X/DAY PRN PRN 02/15/20 [History Last Taken Unknown] pravastatin 80 mg tablet 80 mg PO QHS tab 02/15/20 [History Last Taken 0 10/07/20] Allopurinol 100 mg PO DAILY 10/09/20 [History Last Taken 10/08/20] benzonatate [Tessalon Perles] 200 mg PO BID PRN #10 cap 01/17/21 [Rx Last Taken Unknown] guaifenesin [Mucus Relief ER] 1,200 mg PO BID #7 tab 01/17/21 [Rx Last Taken Unknown] prednisone 40 mg PO DAILY 3 Days #6 tab 01/17/21 [Rx Last Taken Unknown] doxycycline hyclate 100 mg PO BID 01/25/21 [History Last Taken Unknown] Allergy/AdvReac Type Severity Reaction Status Date / Time albuterol Allergy Shortness Verified 01/25/21 23:08 of breath Anesthetics - Amide Type - Allergy Other Verified 01/25/21 23:08 Select A [Anesthetics - Amide Type] acetaminophen [From Tylenol] AdvReac Severe Other Verified 01/25/21 23:08 cinnamon AdvReac Unknown Unknown Verified 01/25/21 23:08 Penicillins AdvReac Unknown Unknown Verified 01/25/21 23:08 Family History Mother , age 86, advanced age No problems noted. Father Prostate cancer other (Patient denies any market maternal family history including heart di sease, diabetes, cancer. Patient notes her mother was very healthy.) Surgical History H/O coronary artery bypass surgery (10/11/07) History of cholecystectomy History of coronary artery stent placement (11/05/19) History of hysterectomy Hx of appendectomy Hx of bilateral cataract extraction Social History Smoking Status: Never smoker alcohol intake: never substance use type: does not use caffeine: Yes Type: carbonated beverages what type of physical activity do you participate in: none seatbelt use: always do you feel safe at home: Yes ROS ROS Narrative Admission Review of Systems: CONSTITUTIONAL: No weight loss, fever, chills, + weakness or fatigue. HEENT: Eyes: No visual loss, blurred vision, double vision or yellow sclerae. Ears, Nose, Throat: No hearing loss, sneezing, congestion, runny nose or sore throat. SKIN: No rash or itching, lesions, wounds. CARDIOVASCULAR: + chest pain, chest pressure or chest discomfort, No palpitations, edema, orthopnea, syncopal events. RESPIRATORY: + shortness of breath, cough with sputum, wheezing, No hemoptysis. GASTROINTESTINAL: No anorexia, nausea, vomiting or diarrhea, abdominal pain, melena, BRBPR. GENITOURINARY: No dysuria, frequency, urgency or retention. NEUROLOGICAL: No headache, dizziness, syncope, paralysis, ataxia, numbness or tingling in the extremities, focal weakness, change in bowel or bladder control, seizure. MUSCULOSKELETAL: + muscle, back pain, joint pain or stiffness. HEMATOLOGIC: + anemia, bleeding or bruising. LYMPHATICS: No enlarged nodes. No history of splenectomy. PSYCHIATRIC: No history of depression or anxiety. ENDOCRINOLOGIC: No reports of sweating, cold or heat intolerance. No polyuria or polydipsia. ALLERGIES: No history of asthma, hives, eczema or rhinitis. Vital Signs Vital Signs Vital Signs: 01/25/21 23:03 01/25/21 23:07 01/25/21 23:09 Temperature 98.3 F Temperature Source Oral Pulse Rate 102 H Respiratory Rate 15 Respiratory Effort Normal Non-Labored Blood Pressure 222/95 H Blood Pressure Mean 137 Pulse Ox 98 Oxygen Delivery Method Room Air Room Air 01/26/21 00:06 Temperature Temperature Source Pulse Rate 78 Respiratory Rate 16 Respiratory Effort Blood Pressure 198/89 H Blood Pressure Mean 125 Pulse Ox 97 Oxygen Delivery Method Room Air Physical Exam Narrative Physical Examination: General: awake, alert, oriented x 3 and cooperative, seated upright in the ED bed in no apparent distress, denies any chest pain currently. Skin: normal color, normal turgor, no icterus, no cyanosis. HEENT: AT/NC, EOMI, PERRLA, mildly dry MM, no carotid bruits or JVD noted. Lungs: Diminished breath sounds, greater bases, normal effort, coarse cough elicited with increased inspiratory effort, mild occasional end expiratory wheeze, no obvious rhonchi or rales. Heart: Regular rate and rhythm; no gallop, rub audible. Abdomen: soft, morbidly obese, NTTP, difficult to assess distention given habitus, distant normal BS, unable to discern HSM secondary to morbidly obese habitus. Extremities: no cyanosis or clubbing, mild bilateral nonpitting ankle edema. Neurological: patient awake, alert, oriented as noted; cognitive function intact; pupils equally reactive to light and accommodation; cranial nerves II- XII grossly normal, moving all 4 extremities, no focal deficits, strength moderately globally decreased. Psychiatric: affect appears mildly fatigued otherwise normal, no acute evidence of depressive or anxiety feelings. Lab / Micro Data Result Diagrams: 01/25/21 23:10 01/25/21 23:10 Labs: Laboratory Results - last 24 hr 01/25/21 01/25/21 01/25/21 23:10 23:10 23:10 WBC 14.5 H RBC 3.90 L Hgb 11.4 L Hct 35.3 L MCV 90.5 MCH 29.2 MCHC 32.3 RDW Std Deviation 42.7 RDW Coeff of Kamar 13.0 Plt Count 385 MPV 9.9 Immature Gran % (Auto) 1.900 H Neut % (Auto) 86.4 H Lymph % (Auto) 9.4 L [place] % (Auto) 2.2 Eos % (Auto) 0.0 Baso % (Auto) 0.1 Absolute Neuts (auto) 12.5 H Absolute Lymphs (auto) 1.36 Nucleated RBC % 0 Sodium 134 L Potassium 5.2 H Chloride 106 Carbon Dioxide 20.0 L Anion Gap 8 BUN 41 H Creatinine 2.02 H Estim Creat Clear Calc 18.74 Est GFR (MDRD) Af Amer 31 L Est GFR (MDRD) Non-Af 25 L BUN/Creatinine Ratio 20.3 H Glucose 478 H* Calcium 8.6 Troponin I 0.016 B-Natriuretic Peptide 544.1 H Radiology Impression Chest X-Ray 01/25/21 23:25 IMPRESSION: Chronic lung findings. No acute cardiac pulmonary disease identified. 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 ED on 01/26/21 with recent treatment for acute bronchitis and now 3 days RUE discomfort with onset on day of ED presentation chest pain. 1. Chest Pain: ED evaluation w/ troponin 0.016, chest x-ray with no acute cardiopulmonary findings, EKG with SR with ST depressions V4-V6 new from prior. Will admit to PCU, place on a monitored bed to assure no acute myocardial infarction with serial cardiac enzymes and EKGs. If EKG remains similar and cardiac enzymes remain normal would plan to pursue a.m. cardiac stress testing with nuclear stress test however if any further alterations or intractable pain would request immediate cardiology consultation. Given history do suspect potential abnormal stress testing and if this is the case this would require also cardiology involvement. Magnesium level requested. FLP in AM. ASA, NG, morphine. 2. Recent acute bronchitis complicated by underlying Asthma: Will maintain on recent doxycycline regimen as well as recent steroid regimen although notable h yperglycemia associated, would benefit from consideration burst therapy only, will obtain sputum Cx as well as respiratory viral panel and de-escalate as able, continue PRN albuterol, encourage IS, HOB. 3.? Chronic systolic and diastolic CHF/ischemic cardiomyopathy: We will continue patient aspirin, plavix, statin therapies, 10/09/2020 echocardiogram with normal LV size, normal LV systolic function, EF 60%, stage I diastolic dysfunction, bubble contrast study negative for right to left interatrial shunt. 4.? Hypertension: We will continue patient home aspirin, Plavix, statin, metoprolol, lisinopril, Lasix regimen. 5.? Hyperlipidemia: Continue home statin regimen. AM FLP. 6.? CAD: Status post CABG x 6 with HEART to LAD, SVG to D1 and D2, SVG to Ramus, SVG to OM1, SVG to RPDA 10/11/2007 and KAETY intervention w/ PCI to the saphenous vein graft to the diagonal branch and a PCI to the [place] left circumflex artery, will continue aspirin, Plavix, statin therapies, metoprolol and lisinopril. Continue evaluation as noted #1. 7.? Diabetes mellitus type II with hyperglycemia: Patient with notable hyperglycemia likely secondary to recent significant prolonged steroid usage. Discussed need to likely transition to burst regimen for acute bronchitis with patient given significant alterations. Will hold oral home regimen, continue home insulin regimen, currently n.p.o. for assessment #1, resume ADA diet once appropriate, accu checks w/ ISS. 8.? Hypothyroidism: Continue home synthroid regimen. 9.? Obesity: Weight loss and lifestyle changes encouraged. 10.? Chronic normocytic anemia: Admission hemoglobin 11.4, baseline 10-11, continue to trend. 11.? Chronic Kidney Disease Stage III with acute renal insufficiency: Admission BUN/Cr 41/2.02, baseline renal function previously noted to be 1.6-1.7, repeat BMP in AM. 12.? GERD: We will continue home PPI. 13.? DVT prophylaxis: SCDs, Lovenox. Visit Charges OBSV E&M: 27300 Initial observation care L3
--- NOTE | 2021-01-26 02:05 | EKG12_ITS ---
Test Reason : CP ADMIN Blood Pressure : / mmHG Vent. Rate : 069 BPM Atrial Rate : 069 BPM P-R Int : 152 ms QRS Dur : 096 ms QT Int : 404 ms P-R-T Axes : 031 047 102 degrees QTc Int : 432 ms Normal sinus rhythm Nonspecific ST and T wave abnormality Abnormal ECG When compared with ECG of 25-JAN-2021 23:05, MANUAL COMPARISON REQUIRED, DATA IS UNCONFIRMED Confirmed by HAILE DUQUE, NITIN ([id number]), editor newspaper SUKHDEEP CONTRERAS ([id number]) on 01/30/2021 10:21:29 A M Referred By: EDMUND Confirmed By:ELIAS BE MD
[2021-01-26] MEDS: Insulin Lispro 100 UNIT/ML INSULN.PEN 20 UNIT SC (02:27)
[2021-01-26] MEDS: hydrALAZINE 20 MG/ML Vial 10 MG IV (02:31)
[2021-01-26 02:41] LABS: Bedside Glucose 344 mg/dL (70-110)
[2021-01-26] MEDS: 0.9% Normal Saline 1,000 ML 100 ML IV ×3 (02:45→21:18)
[2021-01-26] MEDS: 0.9% Saline Lock 10 ML Syringe IV (02:48)
[2021-01-26] MEDS: Metoprolol Tartrate 50 MG Tablet PO ×2 (06:44→21:11)
[2021-01-26] MEDS: Lisinopril 20 MG Tablet PO (06:44)
[2021-01-26] MEDS: Levothyroxine 137 MCG Tablet PO (06:44)
[2021-01-26] MEDS: Aspirin E.C. 81 MG Tablet PO (06:44)
[2021-01-26] MEDS: Clopidogrel Bisulfate 75 MG Tablet PO (06:44)
[2021-01-26 07:00] LABS: Bedside Glucose 130 mg/dL (70-110)
[2021-01-26 07:03] LABS: Absolute Lymphocyte Count 3.75 X10^3/uL (0.83-4.51); Absolute Neutrophil Count 21.2 X10^3/uL (2.0-7.7); Basophil# 0.04 X10^3/uL; Basophil% 0.1 % (0-1); Eosinophil# 0.01 X10^3/uL; Hematocrit 36.1 % (37-47); Hemoglobin 11.5 g/dL (12.0-15.0); Lymphocyte # 3.75 X10^3/ul (0.83-4.51); Mean Corp Hgb Conc 31.9 g/dL (32-36); Mean Corpuscular Hgb 28.9 pg (27.0-32.0); Mean Corpuscular Volume 90.7 fL (81-99); Monocyte# 1.36 X10^3/uL; Monocyte% 5.1 % (0-10); NRBC Flagged by Analyzer 0 % (0-5); Neutrophil # 21.23 X10^3/uL (2.7-7.7); Neutrophil % 79.4 % (47-70); POSITIVE DIFFERENTIAL YES; Platelet Count 397 K/mm3 (150-450); RBC Distribution Width CV 12.9 % (11.6-14.6); RBC Distribution Width SD 42.4 fl (35.1-43.9); Red Blood Count 3.98 M/mm3 (4.2-5.4); White Blood Count 26.8 K/mm3 (4.4-11.0)
[2021-01-26 07:08] LABS: Differential Indicated SCAN CRITERIA MET
[2021-01-26 07:30] LABS: Differential Comment SCANNED
[2021-01-26 07:58] LABS: ALB/GLOB Ratio 0.9 RATIO (0.9-2.4); AST(SGOT) 12 U/L (15-37); Alanine Aminotransfer ALT/SGPT 17 U/L (13-56); Albumin, Serum 3.6 g/dL (3.2-5.0); Alkaline Phosphatase 85 U/L (45-117); Anion Gap 5 (5-15); BUN 45 mg/dL (7-18); BUN/Creat Ratio 26.6 RATIO (10-20); Calcium,Total 8.9 mg/dL (8.5-10.1); Chloride 110 mmol/L (98-107); Cholesterol 229 mg/dL (200); Creatinine, Serum 1.69 mg/dL (0.55-1.02); EST Glomerular Filtration Rate 31 mL/min (>60); Est Glom Filt Rate - Afr Amer 38 mL/min (>60); Globulin 3.8 g/dL (2.2-4.2); Glucose 145 mg/dL (74-106); High Density Lipoprotein 59 mg/dL; Potassium 4.3 mmol/L (3.5-5.1); Protein, Total 7.4 g/dL (6.4-8.2); Sodium Level 138 mmol/L (136-145); Triglycerides 178 mg/dL; Very Low Density Lipoprotein 36 mg/dL (5-40)
--- NOTE | 2021-01-26 09:30 | CASEMGMT ---
According to [facility] website, the following tertiary facilities are in network: [facility], [place], [facility], [facility], [facility], [facility], [facility] and .
--- NOTE | 2021-01-26 10:00 | PCM.CONS.C ---
Assessment & Plan Assessment/Plan (1) Chest pain: QUALIFIERS: Chest pain type: unspecified Qualified Code(s): R07.9 - Chest pain, unspecified PLAN: Patient has non-STEMI. She had an echo in October of this year which showed preserved EF. We will proceed with coronary angiography. Risks and benefits including risk of contrast-induced nephropathy explained to the patient. Patient wishes to proceed. (2) History of coronary artery stent placement: (3) H/O coronary artery bypass surgery: HPI Consult Data Date of Consult: 01/26/21 HPI Narrative HPI Narrative: 75-year-old female presenting with chest pain. Her troponin was initially negative and now it is gone up to 1.9. She has history of CABG x6 (HEART to LAD, sequential SVG to diagonal 1 and diagonal 2, SVG to ramus, SVG to OM, SVG to PDA). In 2015, 3 out of 6 grafts were patent (HEART to LAD, SVG to diagonal 1, SVG to OM). At that time she had PCI to SVG to OM and [place] RCA. In October 2019, she had angiography at [facility] after presenting with non-STEMI. At that time she had patent HEART to LAD and 80% stenosis in the SVG to diagonal 1. Other grafts were felt to be occluded. She had PCI to SVG to diagonal 1 and staged PCI to circumflex was to be considered. She does have CKD with a creatinine today of 1.7 Review of systems: All systems reviewed. All else is negative except as in HPI [facility] Medical History Asthma Atherosclerosis of coronary artery bypass graft without angina pectoris Atherosclerotic heart disease of [place] coronary artery without angina pectoris Chronic combined systolic and diastolic CHF (congestive heart failure) COPD (chronic obstructive pulmonary disease) Essential hypertension GERD (gastroesophageal reflux disease) Hyperlipidemia Hypothyroidism Ischemic cardiomyopathy Non-ST elevated myocardial infarction (non-STEMI) (11/05/19) Obesity 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 Type 2 diabetes mellitus without complication Vertigo Home Medications glipizide 10 mg PO BIDAC 12/17/13 [History Last Taken 10/08/20] metformin 1,000 mg PO BIDCM 12/17/13 [History Last Taken 10/08/20] metoprolol tartrate 50 mg PO BID 12/17/13 [History Last Taken 10/08/20] montelukast 10 mg PO DAILY 12/17/13 [History Last Taken 10/08/20] omeprazole 20 mg PO DAILY 12/17/13 [History Last Taken 10/08/20] aspirin 81 mg tablet,delayed release 81 mg PO QDAY tab 11/19/17 [History Last Taken 10/08/20] lisinopril 20 mg tablet 20 mg PO DAILY 11/19/17 [History Last Taken 10/08/20] clopidogrel 75 mg tablet 75 mg PO QDAY tab 12/22/17 [History Last Taken 10/08/20] levothyroxine 137 mcg capsule 137 mcg PO QDAY 12/23/17 [History Last Taken 10/08/20] meclizine 12.5 mg tablet 12.5 mg PO TID PRN tab 12/23/17 [History Last Taken Unknown] furosemide 40 mg tablet 40 mg PO DAILY #90 tab 01/22/19 [Rx Last Taken 10/08/20] cetirizine 10 mg tablet 10 mg PO QDAY tab 02/15/20 [History Last Taken 10/08/20] ipratropium bromide 17 mcg/actuation HFA aerosol inhaler 2 puff INHALATION 4X/DAY PRN PRN 02/15/20 [History Last Taken Unknown] pravastatin 80 mg tablet 80 mg PO QHS tab 02/15/20 [History Last Taken 10/07/20] Allopurinol 100 mg PO DAILY 10/09/20 [History Last Taken 10/08/20] benzonatate [Tessalon Perles] 200 mg PO BID PRN #10 cap 01/17/21 [Rx Last Taken Unknown] guaifenesin [Mucus Relief ER] 1,200 mg PO BID #7 tab 01/17/21 [Rx Last Taken Unknown] prednisone 40 mg PO DAILY 3 Days #6 tab 01/17/21 [Rx Last Taken Unknown] doxycycline hyclate 100 mg PO BID 01/25/21 [History Last Taken Unknown] Allergy/AdvReac Type Severity Reaction Status Date / Time albuterol Allergy Shortness Verified 01/25/21 23:08 of breath Anesthetics - Amide Type - Allergy Other Verified 01/25/21 23:08 Select A [Anesthetics - Amide Type] acetaminophen [From Tylenol] AdvReac Severe Other Verified 01/25/21 23:08 cinnamon AdvReac Unknown Unknown Verified 01/25/21 23:08 Penicillins AdvReac Unknown Unknown Verified 01/25/21 23:08 Family History Mother , age 86, advanced age No problems noted. Father Prostate cancer Surgical History H/O coronary artery bypass surgery (10/11/07) History of cholecystectomy History of coronary artery stent placement (11/05/19) History of hysterectomy Hx of appendectomy Hx of bilateral cataract extraction Social History Smoking Status: Never smoker alcohol intake: never substance use type: does not use caffeine: Yes Type: carbonated beverages what type of physical activity do you participate in: none seatbelt use: always do you feel safe at home: Yes Physical Exam Const alert and oriented x3 Orientation / Consciousness: awake HEENT normocephalic Neck supple Chest inspection of chest normal Resp normal respiratory effort Cardio regular rate and regular rhythm Extremity no pedal edema Skin no rashes or lesions noted Neuro oriented x3 Psych mental status grossly normal
--- NOTE | 2021-01-26 12:24 | PCM.PN.HOSP ---
Subjective Subjective Patient is a 75-year-old lady with significant past cardiac history including coronary artery disease status post CABG with subsequent PCI with a KATEY who presented with chest pain. She was found to have elevated troponin consistent with acute non-STEMI admitted to monitored bed with consultation placed to cardiology Objective Data Objective Data Vital Signs: Vital Signs Temp Pulse Resp BP Pulse Ox 98.7 F 63 12 156/57 H 93 01/26/21 06:53 01/26/21 12:00 01/26/21 12:00 01/26/21 12:00 01/26/21 12:00 Oxygen Delivery Method Room Air Weight: 93.8 kg Body Mass Index (BMI) 38.1 Intake & Output: Intake and Output for Last 24 Hours 01/24/21 01/25/21 01/26/21 23:59 23:59 23:59 Intake Total 840 / 840 Balance 840 / 840 Lab / Micro Data Result Diagrams: 01/26/21 06:40 01/26/21 06:40 Labs: Laboratory Results - last 24 hr 01/25/21 01/25/21 01/25/21 23:10 23:10 23:10 WBC 14.5 H RBC 3.90 L Hgb 11.4 L Hct 35.3 L MCV 90.5 MCH 29.2 MCHC 32.3 RDW Std Deviation 42.7 RDW Coeff of Kamar 13.0 Plt Count 385 MPV 9.9 Immature Gran % (Auto) 1.900 H Neut % (Auto) 86.4 H Lymph % (Auto) 9.4 L Mchenry % (Auto) 2.2 Eos % (Auto) 0.0 Baso % (Auto) 0.1 Absolute Neuts (auto) 12.5 H Absolute Lymphs (auto) 1.36 Nucleated RBC % 0 Differential Comment Sodium 134 L Potassium 5.2 H Chloride 106 Carbon Dioxide 20.0 L Anion Gap 8 BUN 41 H Creatinine 2.02 H Estim Creat Clear Calc 18.74 Est GFR (MDRD) Af Amer 31 L Est GFR (MDRD) Non-Af 25 L BUN/Creatinine Ratio 20.3 H Glucose 478 H* Calcium 8.6 Magnesium Total Bilirubin AST ALT Alkaline Phosphatase Troponin I 0.016 B-Natriuretic Peptide 544.1 H Total Protein Albumin Globulin Albumin/Globulin Ratio Triglycerides Cholesterol LDL Cholesterol VLDL Cholesterol HDL Cholesterol POC Glucose 01/25/21 01/26/2101/26/21 23:10 02:26 04:05 WBC RBC Hgb Hct MCV MCH MCHC RDW Std Deviation RDW Coeff of Kamar Plt Count MPV Immature Gran % (Auto) Neut % (Auto) Lymph % (Auto) Mchenry % (Auto) Eos % (Auto) Baso % (Auto) Absolute Neuts (auto) Absolute Lymphs (auto) Nucleated RBC % Differential Comment Sodium Potassium Chloride Carbon Dioxide Anion Gap BUN Creatinine Estim Creat Clear Calc Est GFR (MDRD) Af Amer Est GFR (MDRD) Non-Af BUN/Creatinine Ratio Glucose Calcium Magnesium 2.0 Total Bilirubin AST ALT Alkaline Phosphatase Troponin I 0.966 H* B-Natriuretic Peptide Total Protein Albumin Globulin Albumin/Globulin Ratio Triglycerides Cholesterol LDL Cholesterol VLDL Cholesterol HDL Cholesterol POC Glucose 344 H 01/26/21 01/26/21 01/26/21 06:40 06:40 06:40 WBC 26.8 H RBC 3.98 L Hgb 11.5 L Hct 36.1 L MCV 90.7 MCH 28.9 MCHC 31.9 L RDW Std Deviation 42.4 RDW Coeff of Kamar 12.9 Plt Count 397 MPV 10.0 Immature Gran % (Auto) 1.400 H Neut % (Auto) 79.4 H Lymph % (Auto) 14.0 L Mchenry % (Auto) 5.1 Eos % (Auto) 0.0 Baso % (Auto) 0.1 Absolute Neuts (auto) 21.2 H Absolute Lymphs (auto) 3.75 Nucleated RBC % 0 Differential Comment SCANNED Sodium 138 Potassium 4.3 Chloride 110 H Carbon Dioxide 23.0 Anion Gap 5 BUN 45 H Creatinine 1.69 H Estim Creat Clear Calc 22.40 Est GFR (MDRD) Af Amer 38 L Est GFR (MDRD) Non-Af 31 L BUN/Creatinine Ratio 26.6 H Glucose 145 H Calcium 8.9 Magnesium Total Bilirubin 0.40 AST 12 L ALT 17 Alkaline Phosphatase 85 Troponin I 1.930 H* B-Natriuretic Peptide Total Protein 7.4 Albumin 3.6 Globulin 3.8 Albumin/Globulin Ratio 0.9 Triglycerides 178 Cholesterol 229 H LDL Cholesterol 134 H VLDL Cholesterol 36 HDL Cholesterol 59 POC Glucose 01/26/21 06:51 WBC RBC Hgb Hct MCV MCH MCHC RDW Std Deviation RDW Coeff of Kamar Plt Count MPV Immature Gran % (Auto) Neut % (Auto) Lymph % (Auto) Mchenry % (Auto) Eos % (Auto) Baso % (Auto) Absolute Neuts (auto) Absolute Lymphs (auto) Nucleated RBC % Differential Comment Sodium Potassium Chloride Carbon Dioxide Anion Gap BUN Creatinine Estim Creat Clear Calc Est GFR (MDRD) Af Amer Est GFR (MDRD) Non-Af BUN/Creatinine Ratio Glucose Calcium Magnesium Total Bilirubin AST ALT Alkaline Phosphatase Troponin I B-Natriuretic Peptide Total Protein Albumin Globulin Albumin/Globulin Ratio Triglycerides Cholesterol LDL Cholesterol VLDL Cholesterol HDL Cholesterol POC Glucose 130 H Micro: Microbiology 01/26/21 02:35 Sputum, Expectorated/Coughed Gram Stain - Final 01/26/21 00:46 Mucosa - Nose Respiratory Panel (PCR) - Final Rhinovirus Radiography Diagnostic Testing: Radiology Impression Chest X-Ray 01/25/21 23:25 IMPRESSION: Chronic lung findings. No acute cardiac pulmonary disease identified. Electronically Signed: Jason Frey MD at 0:02 EDT Tel , Service support , Physical Exam Const no apparent distress General Appearance: cooperative and well kempt Nutritional Appearance: obese HEENT head/scalp atraumatic, moist oral mucous membranes and dentition normal Eyes conjunctivae normal, no scleral icterus and no papilledema Neck No nuchal rigidity, no lymphadenopathy and thyroid normal Lymph Lymphatic: no lymphadenopathy noted Resp no use of accessory muscles Effort and Inspection: symmetric chest movement; Negative for tracheal deviation Auscultation: diminished lung sounds Cardio regular rate, regular rhythm, no gallops and no clicks GI normal to inspection, nondistended, normoactive bowel sounds and non-tender no CVA tenderness Extremity no calf tenderness and no pedal edema General Extremity: Negative for clubbing or cyanosis Skin no jaundice, no petechiae and no mottling Neuro moves all extremities and no focal motor deficits Psych cooperative and affect normal Appearance: grossly normal Attitude: engaged Assessment & Plan Assessment/Plan (1) Hypothyroidism: QUALIFIERS: Hypothyroidism type: unspecified Qualified Code(s): E03.9 - Hypothyroidism, unspecified (2) Diabetes mellitus, type II: QUALIFIERS: Diabetes mellitus complication status: with other specified complication 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 insulin use: without snf use Qualified Code(s): E11.69 - Type 2 diabetes mellitus with other specified complication (3) CKD (chronic kidney disease): QUALIFIERS: Chronic kidney disease stage: stage 3 (moderate) Chronic kidney disease stage 3 subtype: unspecified whether 3a or 3b Qualified Code(s): N18.30 - Chronic kidney disease, stage 3 unspecified (4) Chest pain: QUALIFIERS: Chest pain type: unspecified Qualified Code(s): R07.9 - Chest pain, unspecified (5) Hyperlipidemia: QUALIFIERS: Hyperlipidemia type: pure hypercholesterolemia Qualified Code(s): E78.00 - Pure hypercholesterolemia, unspecified (6) Essential hypertension: (7) Non-ST elevated myocardial infarction (non-STEMI): (8) Acute non-ST elevation myocardial infarction (NSTEMI): PLAN: Patient is a 75-year-old lady with significant past cardiac history including coronary artery disease status post CABG with subsequent PCI with a KATEY who presented with chest pain. She was found to have elevated troponin consistent with acute non-STEMI admitted to monitored bed with consultation placed to cardiology 1. Acute non-STEMI ?Patient admitted to a monitored bed management initiated per protocol consultation placed to cardiology plans for patient to undergo left heart catheterization with intervention warranted 2. Coronary artery disease ?With previous CABG as well as subsequent PCI with KATEY 3. Dyslipidemia -Patient is on statin therapy, continued at home dose 4. Hypertension - Blood pressure controlled, home medications continued with dose adjustment as needed 5. Diabetes mellitus type II -patient's oral hypoglycemics held. Placed on long acting insulin, Accu-Cheks a.c. and at bedtime and covered with sliding scale insulin 6. Gout ?Patient is on allopurinol did continue 7. GERD ?Patient is on PPI did continue 8. Morbid obesity - With a BMI of 37.8 patient was counseled on weight reduction 9. Hypothyroidism - Patient is on levothyroxine home dose continued 10. Chronic kidney disease stage III ?Kidney function at baseline 11. DVT prophylaxis - On enoxaparin Visit Charges Inpatient E&M: [id number] [facility] L3
--- NOTE | 2021-01-26 13:08 | CRPHASE1_ITS ---
Patient Communication Former Patient:: Phase II PHII Cardiac Rehab Discussed with Patient:: Yes Guide to Cardiac Rehab Given to Patient:: Yes Cardiac Rehab Facility Choice List Given to Patient:: Yes - Pt chooses [facility] Choice Program [facility] CR PHII:: Communication Given to CR, Refer to [facility] Communications Intern:: Lasha Win Phase II Cardiac Rehab:: Yes Sessions:: 36 sessions - 3 days/wk, 12 weeks Cardiac Rehabilitation Info Cardiac Rehabilitation Program Information: Cardiac Rehabilitation is important for patients like you who are recovering from a heart problem. Cardiac rehabilitation programs are recognized as integral to the continued care of the patient with coronary heart disease. The cardiac rehabilitation program is designed to optimize a patient's physical, psychological, and social functioning. Health primary care provider work in cardiac rehabilitation programs and assist you with getting the treatments you need to get stronger and healthier - like exercise, healthy eating habits, and medications. Cardiac rehabilitation has been show to help people with heart problems live longer and have better life enjoyment than people who do not go to cardiac rehabilitation. Please contact the Cardiac Rehabilitation Program at [facility] at in two weeks if you have not heard from them.
--- NOTE | 2021-01-26 13:11 | CRPH1.INSTRU ---
General Education CAD and cardiac anatomy and function:: Patient communicates acknowledgment Explanation of diagnoses and procedures:: Patient communicates acknowledgment Sign/Symptoms of SD:: Patient communicates acknowledgment Antiplatelet therapy: Patient communicates acknowledgment Proper use of NTG-SL: Not instructed Emergency procedures and activation of EMS: Patient communicates acknowledgment Compliance of all prescribed medications: Patient communicates acknowledgment Smoking Nicotine/Smoking Response Code:: Patient communicates acknowledgment Dyslipidemia Dyslipidemia Response Code:: Patient communicates acknowledgment Overweight/Obesity Patient Overweight/Obesity Risk Factors Are:: Obesity - > or = 30 Overweight/Obesity:: Patient communicates acknowledgment Hypertension Hypertension:: Patient communicates acknowledgment Heart Disease Heart Disease Response Code:: Patient communicates acknowledgment Diabetes Recommendations Include:: Maintain fasting blood sugars 70-110 md/dL, Maintain HgbA1c of 6% or less, Monitor blood sugar as prescribed, Diabetic dietary guidelines, Decrease/maintain body weight Diabetes:: Patient communicates acknowledgment Metabolic Syndrome Metabolic Syndrome Response Code:: Patient communicates acknowledgment Sedentary Sedentary Response Code:: Patient communicates acknowledgment Stress Stress Response Code:: Patient communicates acknowledgment
[2021-01-26] MEDS: Doxycycline 100 MG CAPSULE PO ×2 (13:37→21:11)
[2021-01-26] MEDS: Allopurinol 100 MG Tablet PO (13:39)
[2021-01-26] MEDS: Montelukast 10 MG Tablet PO (13:39)
[2021-01-26] MEDS: predniSONE 20 MG Tablet 40 MG PO (13:39)
[2021-01-26] MEDS: Pantoprazole Sodium 20 MG Tablet PO (13:40)
[2021-01-26 13:45] LABS: Bedside Glucose 66 mg/dL (70-110)
--- NOTE | 2021-01-26 15:30 | CASEMGMT ---
RN CM VALVE FITTER CM to room to meet with patient for initial transition planning/care coordination assessment. RN VIOLET introduced self and role at [facility]. Pt voices understanding and consents to assessment at this time. Pt resting in bed in no distress at this time. Pt is A/O at this time and answers all questions appropriately. Care providers, pharmacy, and demographics verified/updated at this time. PCP: Dr Mcclain. Pt states she is retiring next Fri and she will be seeing Dr Diaz as PCP Specialists: Dr Win--cardiology Preferred Pharmacy: [facility] [place] Insurance: [employer] [facility] Prescription Benefit: Yes Living Will/HPOA: Has LW. Does not have Healthcare POA and is interested in talking w/SW to complete paperwork. SW, Veronica, made aware. Pt was given Business Planning Director Rac Card w/# to call as an OP for an appt if SW is unable to meet with her prior to discharge. LNOK: 2 living children. Daughter, Amy. Son, Gino. 3 children have Living Arrangements: Lives w/daughter, Amy, and son-in-law in one-story home w/no steps to enter. Independent w/ADL's and IADL's. Transportation: Pt states drives self and states no transportation concerns at this time. DME: States has the following DME: shower chair, cane, walker, BP machine, glucometer and testing supplies, nebulizer. Has an electric W/C but does not use. Pt states no need for further DME at this time. HHC/SNF: [facility] after cardiac surgery. No hx of HHC. Denies needs for HHC or OP therapy. Plans to do Cardiac Rehab. Pt wishes to return home and states has no concerns with going home at time of discharge. CM to follow for any discharge planning/needs. Pt voices no concerns/needs at this time. Advised pt to ask for CM if any questions/concerns/needs arise. Voices understanding. PLAN: Home w/discharge plans in place. Jay Jay FERNANDEZ RN, CM
[2021-01-26 17:00] LABS: Bedside Glucose 122 mg/dL (70-110)
[2021-01-26] MEDS: Pravastatin 80 MG Tablet PO (21:11)
[2021-01-26] MEDS: guaiFENesin 1,200 MG Tablet 1200 MG PO (21:11)
[2021-01-26] MEDS: Insulin Lispro 100 UNIT/ML INSULN.PEN SC (21:11)
[2021-01-26 22:50] LABS: Bedside Glucose 359 mg/dL (70-110)
[2021-01-27 02:51] VITALS: BP 154/68; PULSE 58; RESP 16; TEMP 36.8; O2SAT 96
[2021-01-27 03:01] VITALS: PULSE 62
[2021-01-27] MEDS: Levothyroxine 137 MCG Tablet PO (06:09)
[2021-01-27] MEDS: 0.9% Normal Saline 1,000 ML 100 ML IV (06:10)
[2021-01-27] MEDS: Insulin Lispro 100 UNIT/ML INSULN.PEN SC ×2 (06:47→11:44)
[2021-01-27 06:48] LABS: Hematocrit 36.8 % (37-47); Hemoglobin 11.9 g/dL (12.0-15.0); Mean Corp Hgb Conc 32.3 g/dL (32-36); Mean Corpuscular Hgb 29.4 pg (27.0-32.0); Mean Corpuscular Volume 90.9 fL (81-99); Mean Platelet Vol. 10.1 fl (6.2-12.0); Platelet Count 360 K/mm3 (150-450); RBC Distribution Width CV 13.1 % (11.6-14.6); RBC Distribution Width SD 43.5 fl (35.1-43.9); Red Blood Count 4.05 M/mm3 (4.2-5.4); White Blood Count 15.5 K/mm3 (4.4-11.0)
[2021-01-27 06:55] LABS: Bedside Glucose 171 mg/dL (70-110)
[2021-01-27 07:00] VITALS: PULSE 60
[2021-01-27 07:15] LABS: Albumin, Serum 3.2 g/dL (3.2-5.0); BUN 43 mg/dL (7-18); BUN/Creat Ratio 29.5 RATIO (10-20); Creatinine, Serum 1.46 mg/dL (0.55-1.02); EST Glomerular Filtration Rate 37 mL/min (>60); Est Glom Filt Rate - Afr Amer 45 mL/min (>60); Estimated Creatinine Clearance 25.93 ml/min; Glucose 175 mg/dL (74-106); Protein, Total 6.1 g/dL (6.4-8.2)
[2021-01-27 07:16] LABS: ALB/GLOB Ratio 1.1 RATIO (0.9-2.4); AST(SGOT) 14 U/L (15-37); Alanine Aminotransfer ALT/SGPT 16 U/L (13-56); Alkaline Phosphatase 81 U/L (45-117); Anion Gap 8 (5-15); Calcium,Total 8.3 mg/dL (8.5-10.1); Chloride 112 mmol/L (98-107); Globulin 2.9 g/dL (2.2-4.2); Potassium 5.5 mmol/L (3.5-5.1); Sodium Level 139 mmol/L (136-145)
[2021-01-27 08:53] VITALS: BP 197/85; PULSE 61; RESP 16; TEMP 36.3; O2SAT 99
[2021-01-27] MEDS: Aspirin E.C. 81 MG Tablet PO (09:04)
[2021-01-27] MEDS: predniSONE 20 MG Tablet 40 MG PO (09:04)
[2021-01-27] MEDS: Doxycycline 100 MG CAPSULE PO (09:04)
[2021-01-27] MEDS: Allopurinol 100 MG Tablet PO (09:04)
[2021-01-27] MEDS: Pantoprazole Sodium 20 MG Tablet PO (09:04)
[2021-01-27] MEDS: Clopidogrel Bisulfate 75 MG Tablet PO (09:04)
[2021-01-27] MEDS: Montelukast 10 MG Tablet PO (09:04)
[2021-01-27] MEDS: Lisinopril 20 MG Tablet PO (09:04)
[2021-01-27 09:05] VITALS: PULSE 61
[2021-01-27] MEDS: Metoprolol Tartrate 50 MG Tablet PO (09:05)
[2021-01-27 10:00] VITALS: O2SAT 96
--- NOTE | 2021-01-27 10:00 | EKG12_ITS ---
Test Reason : AM EKG Blood Pressure : / mmHG Vent. Rate : 059 BPM Atrial Rate : 059 BPM P-R Int : 162 ms QRS Dur : 094 ms QT Int : 466 ms P-R-T Axes : 038 051 099 degrees QTc Int : 461 ms Sinus bradycardia with sinus arrhythmia Otherwise normal ECG Confirmed by CHERI DUQUE, NELA ([id number]), editor index SUKHDEEP CNOTRERAS ([id number]) on 01/31/2021 9:55:00 AM Referred By: AVANI Confirmed By:NELA ALONZO MD
--- NOTE | 2021-01-27 10:56 | PCM.DC.SUM ---
Providers Date of Admission: 01/26/21 Primary Care Physician: Dr. Salena Mcclain MD Consultations 01/26/21 04:43 Consult: Cardiology Routine Consulting Provider: Levy Graham Reason for Consult: Chest pain, CAD hx EMERGENT Consult: No MD Notified: Yes Date Notified:: 01/26/21 Time Notified: 04:43 Method of Notification: cortext Reason For Visit: CHEST PAIN Diagnosis Discharge Diagnosis (1) Hypothyroidism: Status: Chronic Code(s): E03.9 - Hypothyroidism, unspecified Qualifiers: Hypothyroidism type: unspecified Qualified Code(s): E03.9 - Hypothyroidism, unspecified (2) Diabetes mellitus, type II: Status: Chronic Code(s): E11.9 - Type 2 diabetes mellitus without complications Qualifiers: Diabetes mellitus complication status: with other specified complication Diabetes mellitus half-way insulin use: without long wall shear 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 use Qualified Code(s): E11.69 - Type 2 diabetes mellitus with other specified complication (3) CKD (chronic kidney disease): Status: Chronic Code(s): N18.9 - Chronic kidney disease, unspecified Qualifiers: Chronic kidney disease stage: stage 3 (moderate) Chronic kidney disease stage 3 subtype: unspecified whether 3a or 3b Qualified Code(s): N18.30 - Chronic kidney disease, stage 3 unspecified (4) Chest pain: Status: Acute Code(s): R07.9 - Chest pain, unspecified Qualifiers: Chest pain type: unspecified Qualified Code(s): R07.9 - Chest pain, unspecified (5) Hyperlipidemia: Status: Chronic Code(s): E78.5 - Hyperlipidemia, unspecified Qualifiers: Hyperlipidemia type: pure hypercholesterolemia Qualified Code(s): E78.00 - Pure hypercholesterolemia, unspecified (6) Essential hypertension: Status: Chronic Code(s): I10 - Essential (primary) hypertension (7) Non-ST elevated myocardial infarction (non-STEMI): Status: Resolved Code(s): I21.4 - Non-ST elevation (NSTEMI) myocardial infarction (8) Acute non-ST elevation myocardial infarction (NSTEMI): Status: Acute Code(s): I21.4 - Non-ST elevation (NSTEMI) myocardial infarction Medications at Discharge Home Medications metformin 1,000 mg PO BIDCM 12/17/13 metoprolol tartrate 50 mg PO BID 12/17/13 montelukast 10 mg PO DAILY 12/17/13 omeprazole 20 mg PO DAILY 12/17/13 aspirin 81 mg tablet,delayed release 81 mg PO QDAY tab 11/19/17 lisinopril 20 mg tablet 20 mg PO DAILY 11/19/17 clopidogrel 75 mg tablet 75 mg PO QDAY tab 12/22/17 levothyroxine 137 mcg capsule 137 mcg PO QDAY 12/23/17 meclizine 12.5 mg tablet 12.5 mg PO TID PRN tab 12/23/17 furosemide 40 mg tablet 40 mg PO DAILY #90 tab 01/22/19 cetirizine 10 mg tablet 10 mg PO QDAY tab 02/15/20 ipratropium bromide 17 mcg/actuation HFA aerosol inhaler 2 puff INHALATION 4X/DAY PRN PRN 02/15/20 pravastatin 80 mg tablet 80 mg PO QHS tab 02/15/20 Allopurinol 100 mg PO DAILY 10/09/20 Mucus Relief ER 1,200 mg PO BID #7 tab 01/17/21 benzonatate [Tessalon Perles] 200 mg PO BID PRN #10 cap 01/17/21 prednisone 40 mg PO DAILY 3 Days #6 tab 01/17/21 doxycycline hyclate 100 mg PO BID 01/25/21 Hospital Course Summary of Care Provided Minutes Spent on Discharge: 35 Hospital Course: Patient is a 75-year-old lady with significant past cardiac history including coronary artery disease status post CABG with subsequent PCI with a KATEY who presented with chest pain.? She was found to have elevated troponin consistent with acute non-STEMI admitted to monitored bed with consultation placed to cardiology 1.? Acute non-STEMI ?Patient admitted to a monitored bed management initiated per protocol consultation placed to cardiology plans for patient to undergo left heart catheterization with intervention warranted -01/27/2021; patient underwent left catheterization on 01/26/2021 with PCI to his circumflex lesion. Echo obtained during patient optimization demonstrated EF of 60% 2.? Coronary artery disease ?With previous CABG as well as subsequent PCI with KATEY 3.? Dyslipidemia -Patient is on statin therapy, continued at home dose 4.? Hypertension - Blood pressure controlled, home medications continued with dose adjustment as needed 5.? Diabetes mellitus type II -patient's oral hypoglycemics held. Placed on long acting insulin, Accu-Cheks a.c. and at bedtime and covered with sliding scale insulin 6.? Gout ?Patient is on allopurinol did continue 7.? GERD ?Patient is on PPI did continue 8.? Morbid obesity - With a BMI of 37.8 patient was counseled on weight reduction 9.? Hypothyroidism - Patient is on levothyroxine home dose continued 10.? Chronic kidney disease stage III ?Kidney function at baseline 11.? DVT prophylaxis - On enoxaparin Physical Exam Const no apparent distress General Appearance: cooperative and well kempt Nutritional Appearance: obese HEENT head/scalp atraumatic, moist oral mucous membranes and dentition normal Eyes conjunctivae normal, no scleral icterus and no papilledema Neck No nuchal rigidity, no lymphadenopathy and thyroid normal Lymph Lymphatic: no lymphadenopathy noted Resp no use of accessory muscles Effort and Inspection: symmetric chest movement; Negative for tracheal deviation Auscultation: diminished lung sounds Cardio regular rate, regular rhythm, no gallops and no clicks GI normal to inspection, nondistended, normoactive bowel sounds and non-tender no CVA tenderness Extremity no calf tenderness and no pedal edema General Extremity: Negative for clubbing or cyanosis Skin no jaundice, no petechiae and no mottling Neuro moves all extremities and no focal motor deficits Psych cooperative and affect normal Appearance: grossly normal Attitude: engaged ABG / Lab / Microbiology Data Result Diagrams: 01/27/21 06:13 01/27/21 11:21 Laboratory: Laboratory Results - last 24 hr 01/26/21 01/26/21 01/26/21 13:33 16:55 21:02 WBC RBC Hgb Hct MCV MCH MCHC RDW Std Deviation RDW Coeff of Kamar Plt Count MPV Sodium Potassium Chloride Carbon Dioxide Anion Gap BUN Creatinine Estim Creat Clear Calc Est GFR (MDRD) Af Amer Est GFR (MDRD) Non-Af BUN/Creatinine Ratio Glucose Calcium Total Bilirubin AST ALT Alkaline Phosphatase Total Protein Albumin Globulin Albumin/Globulin Ratio POC Glucose 66 L 122 H 359 H 01/27/21 01/27/21 01/27/21 06:13 06:13 06:45 WBC 15.5 H RBC 4.05 L Hgb 11.9 L Hct 36.8 L MCV 90.9 MCH 29.4 MCHC 32.3 RDW Std Deviation 43.5 RDW Coeff of Kamar 13.1 Plt Count 360 MPV 10.1 Sodium 139 Potassium 5.5 H Chloride 112 H Carbon Dioxide 19.0 L Anion Gap 8 BUN 43 H Creatinine 1.46 H Estim Creat Clear Calc 25.93 Est GFR (MDRD) Af Amer 45 L Est GFR (MDRD) Non-Af 37 L BUN/Creatinine Ratio 29.5 H Glucose 175 H Calcium 8.3 L Total Bilirubin 0.50 AST 14 L ALT 16 Alkaline Phosphatase 81 Total Protein 6.1 L Albumin 3.2 Globulin 2.9 Albumin/Globulin Ratio 1.1 POC Glucose 171 H Microbiology: Microbiology 01/26/21 02:35 Gram Stain - Final Sputum, Expectorated/Coughed Microbiology 01/26/21 02:35 Sputum, Expectorated/Coughed Gram Stain - Final 01/26/21 00:46 Mucosa - Nose Respiratory Panel (PCR) - Final Rhinovirus D/C Instructions Discharge Diet: Low fat / Low cholesterol and 1800 Calorie Control Diet Discharge Activity: Return to Normal Activity Call your doctor if you observe: Fever of 101 or Higher, Shortness of breath, Fainting spells and Chest pain Meaningful Use Info Meaningful Use Diagnoses (Choose all that apply): AMI AMI/Post PCI/Angioplasty Aspirin given w/in 24hrs of arrival?: Yes ASA at discharge?: Yes Antiplatelet Therapy at Discharge:: Yes Statins at discharge?: Yes Will/ARB at discharge?: Yes Beta Bernie at discharge?: Yes Done w/ Acute WI measure.: Yes Documented LVEF (%): 60 Discharge Plan Admission Admit Date/Time: 01/26/21 14:55 Attending Provider: Fritz Winston Primary Care Provider: Salena Mcclain Consulting Providers: Levy Graham Instructions Patient Instructions: Heart Attack Discharge Orders/Prescriptions Prescriptions: Continued levothyroxine 137 mcg capsule 137 mcg capsule 137 mcg PO QDAY RF: 0 lisinopril 20 mg tablet 20 mg PO DAILY RF: 0 aspirin 81 mg tablet,delayed release (DR/EC) 81 mg PO QDAY RF: 0 clopidogrel 75 mg tablet 75 mg PO QDAY RF: 0 meclizine 12.5 mg tablet 12.5 mg PO TID PRN (Reason: Dizziness) RF: 0 cetirizine [Zyrtec] 10 mg tablet 10 mg PO QDAY RF: 0 furosemide [Lasix] 40 mg tablet 40 mg PO DAILY Qty: 90 RF: 4 pravastatin 80 mg tablet 80 mg PO QHS RF: 0 metformin 1,000 MG tablet 1,000 mg PO BIDCM RF: 0 metoprolol tartrate 50 MG tablet 50 mg PO BID RF: 0 omeprazole 20 MG capsule 20 mg PO DAILY RF: 0 montelukast 10 MG tablet 10 mg PO DAILY RF: 0 ipratropium bromide 17 mcg/actuation HFA aerosol inhaler 2 puff INHALATION 4X/DAY PRN PRN (Reason: Asthma) RF: 0 Allopurinol 100 mg PO DAILY RF: 0 Mucus Relief ER 1,200 mg tablet extended release 12hr 1,200 mg PO BID Qty: 7 RF: 0 prednisone 20 mg tablet 40 mg PO DAILY 3 Days Qty: 6 RF: 0 benzonatate [Tessalon Perles] 100 mg capsule 200 mg PO BID PRN (Reason: cough) Qty: 10 RF: 0 doxycycline hyclate 100 mg capsule 100 mg PO BID RF: 0 Discontinued glipizide 10 MG tablet 10 mg PO BIDAC RF: 0 Referrals / Follow Up: Salena Mcclain MD [Primary Care Provider] - Within 2 Weeks Levy Graham MD [STAFF PHYSICIAN] - Within 1 Month Disposition Disposition (needs filled in before D/C Order can be placed): Home, self care Visit Charges Inpatient E&M: [id number] [facility]
--- NOTE | 2021-01-27 11:03 | PCM.DC ---
Discharge Instructions Diet Discharge Diet: Low fat / Low cholesterol and 1800 Calorie Control Diet Activity Discharge Activity: Return to Normal Activity Dressing / Incision Call your doctor if you observe: Fever of 101 or Higher, Shortness of breath, Fainting spells and Chest pain Follow Up Care Test Results: Test results from this visit will be discussed in further detail at your follow-up appointment, if applicable. Discharge Plan Admission Admit Date/Time: 01/26/21 14:55 Attending Provider: Fritz Winston Primary Care Provider: Salena Mcclain Consulting Providers: Levy Graham Instructions Patient Instructions: Heart Attack Discharge Orders/Prescriptions Prescriptions: Continued levothyroxine 137 mcg capsule 137 mcg capsule 137 mcg PO QDAY RF: 0 lisinopril 20 mg tablet 20 mg PO DAILY RF: 0 aspirin 81 mg tablet,delayed release (DR/EC) 81 mg PO QDAY RF: 0 clopidogrel 75 mg tablet 75 mg PO QDAY RF: 0 meclizine 12.5 mg tablet 12.5 mg PO TID PRN (Reason: Dizziness) RF: 0 cetirizine [Zyrtec] 10 mg tablet 10 mg PO QDAY RF: 0 furosemide [Lasix] 40 mg tablet 40 mg PO DAILY Qty: 90 RF: 4 pravastatin 80 mg tablet 80 mg PO QHS RF: 0 metformin 1,000 MG tablet 1,000 mg PO BIDCM RF: 0 metoprolol tartrate 50 MG tablet 50 mg PO BID RF: 0 omeprazole 20 MG capsule 20 mg PO DAILY RF: 0 montelukast 10 MG tablet 10 mg PO DAILY RF: 0 ipratropium bromide 17 mcg/actuation HFA aerosol inhaler 2 puff INHALATION 4X/DAY PRN PRN (Reason: Asthma) RF: 0 Allopurinol 100 mg PO DAILY RF: 0 Mucus Relief ER 1,200 mg tablet extended release 12hr 1,200 mg PO BID Qty: 7 RF: 0 prednisone 20 mg tablet 40 mg PO DAILY 3 Days Qty: 6 RF: 0 benzonatate [Tessalon Perles] 100 mg capsule 200 mg PO BID PRN (Reason: cough) Qty: 10 RF: 0 doxycycline hyclate 100 mg capsule 100 mg PO BID RF: 0 Discontinued glipizide 10 MG tablet 10 mg PO BIDAC RF: 0 Referrals / Follow Up: Salena Mcclain MD [Primary Care Provider] - Within 2 Weeks Levy Graham MD [STAFF PHYSICIAN] - Within 1 Month Disposition Disposition (needs filled in before D/C Order can be placed): Home, self care
--- NOTE | 2021-01-27 11:15 | EKG12_ITS ---
Test Reason : POCT PCI Blood Pressure : / mmHG Vent. Rate : 061 BPM Atrial Rate : 061 BPM P-R Int : 172 ms QRS Dur : 100 ms QT Int : 448 ms P-R-T Axes : 056 057 107 degrees QTc Int : 450 ms Normal sinus rhythm Normal ECG When compared with ECG of 26-JAN-2021 02:05, MANUAL COMPARISON REQUIRED, DATA IS UNCONFIRMED Confirmed by HAILE DUQUE, NITIN ([id number]), news assignment editor SUKHDEEP CONTRERAS ([id number]) on 01/30/2021 10:18:31 A M Referred By: EDMUND Confirmed By:ELIAS BE MD
[2021-01-27 11:51] LABS: Bedside Glucose 244 mg/dL (70-110)
[2021-01-27 12:00] LABS: Potassium 4.7 mmol/L (3.5-5.1)
--- NOTE | 2021-01-27 13:37 | PCM.PN.CARD ---
Subjective Subjective Patient is doing well. She denies any chest pain. She underwent PCI to the circumflex without any complications yesterday. She has not had any significant overnight events. Objective Data Vital Signs: Vital Signs Temp Pulse Resp BP Pulse Ox 97.4 F L 61 16 197/85 H 96 01/27/21 08:53 01/27/21 09:05 01/27/21 08:53 01/27/21 08:53 01/27/21 10:00 Oxygen Delivery Method Room Air Weight: 209 lb 7.026 oz Body Mass Index (BMI) 38.1 Intake & Output: Intake and Output for Last 24 Hours 01/25/21 01/26/21 01/27/21 23:59 23:59 23:59 Intake Total 1840 / 1840 1180.00 / 1180.00 Balance 1840 / 1840 1180.00 / 1180.00 Lab / Micro Data Result Diagrams: 01/27/21 06:13 01/27/21 11:21 Labs: Laboratory Results - last 24 hr 01/26/21 01/26/21 01/26/21 13:33 16:55 21:02 WBC RBC Hgb Hct MCV MCH MCHC RDW Std Deviation RDW Coeff of Kamar Plt Count MPV Sodium Potassium Chloride Carbon Dioxide Anion Gap BUN Creatinine Estim Creat Clear Calc Est GFR (MDRD) Af Amer Est GFR (MDRD) Non-Af BUN/Creatinine Ratio Glucose Calcium Total Bilirubin AST ALT Alkaline Phosphatase Total Protein Albumin Globulin Albumin/Globulin Ratio POC Glucose 66 L 122 H 359 H 01/27/21 01/27/21 01/27/21 06:13 06:13 06:45 WBC 15.5 H RBC 4.05 L Hgb 11.9 L Hct 36.8 L MCV 90.9 MCH 29.4 MCHC 32.3 RDW Std Deviation 43.5 RDW Coeff of Kamar 13.1 Plt Count 360 MPV 10.1 Sodium 139 Potassium 5.5 H Chloride 112 H Carbon Dioxide 19.0 L Anion Gap 8 BUN 43 H Creatinine 1.46 H Estim Creat Clear Calc 25.93 Est GFR (MDRD) Af Amer 45 L Est GFR (MDRD) Non-Af 37 L BUN/Creatinine Ratio 29.5 H Glucose 175 H Calcium 8.3 L Total Bilirubin 0.50 AST 14 L ALT 16 Alkaline Phosphatase 81 Total Protein 6.1 L Albumin 3.2 Globulin 2.9 Albumin/Globulin Ratio 1.1 POC Glucose 171 H 01/27/21 01/27/21 11:21 11:43 WBC RBC Hgb Hct MCV MCH MCHC RDW Std Deviation RDW Coeff of Kamar Plt Count MPV Sodium Potassium 4.7 Chloride Carbon Dioxide Anion Gap BUN Creatinine Estim Creat Clear Calc Est GFR (MDRD) Af Amer Est GFR (MDRD) Non-Af BUN/Creatinine Ratio Glucose Calcium Total Bilirubin AST ALT Alkaline Phosphatase Total Protein Albumin Globulin Albumin/Globulin Ratio POC Glucose 244 H Micro: Microbiology 01/26/21 02:35 Sputum, Expectorated/Coughed Gram Stain - Final 01/26/21 02:35 Sputum, Expectorated/Coughed Respiratory Culture - Preliminary Appears to be normal respiratory bernardo. Further studies to follow. 01/26/21 00:46 Mucosa - Nose Respiratory Panel (PCR) - Final Rhinovirus Cardiology Labs/Tests 01/27/21 06:13: WBC 15.5 H, RBC 4.05 L, Hgb 11.9 L, Hct 36.8 L, MCV 90.9, MCH 29.4, MCHC 32.3, Plt Count 360, MPV 10.1 01/27/21 06:13: Sodium 139, Potassium 5.5 H, Chloride 112 H, Carbon Dioxide 19.0 L, Anion Gap 8, BUN 43 H, Creatinine 1.46 H, Est GFR (MDRD) Af Amer 45 L, Est GFR (MDRD) Non-Af 37 L, BUN/Creatinine Ratio 29.5 H, Glucose 175 H, Calcium 8.3 L, Total Bilirubin 0.50 01/27/21 11:21: Potassium 4.7 Rhythm: EKG: ECHO: Stress Test: Cardiac Cath: PCI: CT Surgery: Holter monitor: EPS: PPM: CXR: Chest CT Scan: Physical Exam Const alert and oriented x3 Orientation / Consciousness: awake HEENT normocephalic Eyes no scleral icterus Neck supple Chest inspection of chest normal Resp normal respiratory effort Cardio regular rate Skin no rashes or lesions noted Assessment & Plan Assessment/Plan (1) Acute non-ST elevation myocardial infarction (NSTEMI): PLAN: Status post PCI to the circumflex. 2 out of 6 bypass grafts patent. EF is preserved. Continue dual antiplatelet therapy, statin, metoprolol. Okay to discharge home from a cardiac standpoint. Follow-up with Dr. Win as an outpatient. Visit Charges Inpatient E&M: 69875 Subs Hosp L2
--- NOTE | 2021-01-27 13:43 | CASEMGMT ---
RADHA Note: RADHA Referral Source : [employer] Referral Reason: Advanced Directives SW was advised by U garment worker that patient was interested in advanced directives. SW met with patient in her room. Patient reports she is aware of Advanced Directives and was able to voice that Advanced Directives and stated it is what I want to do in regards to end of life decisions. SW offered to assist patient with Advanced Directives and she said that she will take it home with her. No other [employer] issues at this time. Plan: Provided patient with [facility] handout on advanced Directives and also [facility] Advanced Directives. Patient declined to finalize at this time. Kelly ESPINO
--- NOTE | 2021-01-28 16:11 | CL.I_ITS ---
Patient Name: HILLARY WELLS Study Date: 01/26/2021 Performing: Luis Graham MD Ht: 62 inches 157 cm : 1945 Wt: 207.5 lbs 94 kg Age: 75 Gender: female BSA: 1.94 PROCEDURE(S) PERFORMED [id number] W OR WO PTCA, SINGLE CORONARY ARTERY CLINICAL PROFILE AND CO-MORBIDITIES Indications: ACS <= 24 hrs Heart Failure: None Stress/Imaging Stress/Image Study Performed: No CAD Presentations: Non-STEMI. Symptom onset Date/Time: Time Not Available CONCLUSIONS CAD as described. Patent 2/6 bypass grafts. Successful PCI of pLCx with KATEY RECOMMENDATIONS DESCRIPTION OF PROCEDURE The patient arrived to the procedure lab. The risks and benefits of the procedure as well as a full d escription of our services here and lack of surgical backup were fully explained to the patient and/o r their significant other prior to the catheterization. The Timeout was completed, verifying the elvia ect patient and procedure. The patient's procedural site was prepped and draped in the usual fashion. Local anesthetic was given subcutaneously to right groin region with Lidocaine 2%. Using a modified Seldinger technique, arterial access was obtained via the right femoral artery, a 5Fr sheath was inse rted.. Left Coronary Artery selective angiography was performed in multiple views using a 5 Fr. JL4 catheter. Right Coronary Artery selective angiography was then performed in multiple views using a 5 Fr. JR 4 catheter. Saphenous Vein graft to the DIAG 2 selective angiography was performed in multiple views using a 5 Fr. JR 4 catheter. Left internal mammary artery graft to the LAD selective angiography was performed in multiple views using a 5 Fr. IM catheter Arterial sheath was exchanged for a 6 Fr Sheath. XB3 Guide catheter was inserted and engaged into the SVG to the Circumflex. BMW Guide wire was advanced to the Circumflex. EMERGE 2X12 Balloon cathet er was advanced across lesion in the circumflex, proximal. PTCA balloon inflated at 8 atms for 15 sec s. Angiogram performed post balloon dilatation. BIOTRONIK 2.25X18 Drug Eluting stent was advanced acr oss the lesion in the circumflex, proximal. Angiogram performed post stent deployment. Angiogram perf ormed post stent deployment. Contrast was injected through the sheath and the Right Iliac and Femoral artery were assessed for possible closure device. The arterial sheath was pulled and a Perclose samir sure device was deployed for hemostasis CORONARY ANGIOGRAPHY DOMINANCE: Right Dominant LEFT HEART ASSESSMENT Left Ventricular Ejection Fraction: Not assessed LEFT MAIN: Mild luminal irregularities LEFT ANTERIOR DESCENDING ARTERY: MID LAD: is occluded DIAGONAL 1: Proximal - 70 % Stenosis immediately after the vein graft anastomosis. The vessel is abou t 1.75mm in this location CIRCUMFLEX ARTERY: PROX CIRC: 80 % Stenosis RIGHT CORONARY ARTERY: Mild luminal irregularities RT PDA: Mid - 60 % Stenosis GRAFTS: HEART graft to the Mid LAD is patent Saphenous Vein graft to the 1st Diagonal is patent Saphenous Vein graft to the RPDA is known to be occluded and was not injected Saphenous Vein graft to the Ramus is totally occluded Saphenous Vein graft to the 1st OM is totally occluded INTERVENTION INFORMATION LESION SITE: Circumflex (Proximal) Lesion Complexity: High/C, chronic total occlusion: No, lesion at bifurcation: No, thrombus present: No, lesion length: 12 mm, culprit lesion: Yes, Previously treated lesion: No Pre Stenosis: 80 % Pre intervention KEV flow: 3 PROCEDURE: Drug Eluting Stent with pre dilatation. Post Stenosis: 0 % Post intervention KEV flow: 3 Lesion Devices: [place]nathy .014 BMW Laporte Straight 190cm Cardinal 6 Fr XB3.0 100cm Guide Catheter Ramón Sci EMERGE MR 2.00x12 BALLOON COMPLICATIONS No Complications PROCEDURE MEDICATIONS Versed 2 mg IV Fentanyl 50 mcg IV Fentanyl 25 mcg IV Oxygen: 2 L/min via NASAL CANULA Oxygen: 3 L/min via nasal cannula Heparin 7000 unit(s) IV 01/26/2021 10:32:53 Nitro 200 mcg IC 01/26/2021 10:41:56 SUMMARY OF HEMODYNAMIC DATA Time AIR REST ECG 10:02:35 AO 147/69 (103) SA 10:20:47 AO 173/61 (104) 10:36:37 Signed By Luis Graham MD On 01/28/2021 4:11:05 PM Luis Graham MD
--- NOTE | 2021-01-29 13:50 | CASEMGMT ---
WILL LAZO Discharge Follow Up Phone Call: MAKEDA: Patrizia Strata: 3 Call Date: 01.29.21 Discharge Date: 01.27.21 Time of Call: 1350 Duration: 2 min Admitting Dx: KARRIE SOLIS CM completed follow up phone call after recent hospitalization. Pt states she is doing well. She has an appt with her new PCP on , . Pt states sh will make an appt today with franchise sales representative. Pt denies questions regarding medications or dc instructions.
== END 2021-01-27 16:16 | disposition home or self-care (01) | DRG 247 ==
LOC: ED 23:30 → PCU 01-26 01:26
PROVIDERS: Specialist; Admitting Provider Family Medicine; Emergency Provider Emergency Medicine; PCP Family Medicine; Visit Provider Internal Medicine
DX: I21.4 Non-ST elevation (NSTEMI) myocardial infarction (principal); I25.810 Atherosclerosis of coronary artery bypass graft(s) without angina pectoris; I13.0 Hypertensive heart and chronic kidney disease with heart failure and stage 1 through stage 4 chronic kidney disease, or unspecified chronic kidney disease; I50.42 Chronic combined systolic (congestive) and diastolic (congestive) heart failure; I25.10 Atherosclerotic heart disease of native coronary artery without angina pectoris; Z95.1 Presence of aortocoronary bypass graft; M10.9 Gout, unspecified; K21.9 Gastro-esophageal reflux disease without esophagitis; E66.01 Morbid (severe) obesity due to excess calories; E03.9 Hypothyroidism, unspecified; E11.22 Type 2 diabetes mellitus with diabetic chronic kidney disease; N18.32 Chronic kidney disease, stage 3b; J45.909 Unspecified asthma, uncomplicated; I25.5 Ischemic cardiomyopathy; E78.5 Hyperlipidemia, unspecified; E11.65 Type 2 diabetes mellitus with hyperglycemia; T38.0X5A Adverse effect of glucocorticoids and synthetic analogues, initial encounter; D64.9 Anemia, unspecified; D63.1 Anemia in chronic kidney disease; Z79.4 Long term (current) use of insulin; Z79.52 Long term (current) use of systemic steroids; Z79.899 Other long term (current) drug therapy; Z95.5 Presence of coronary angioplasty implant and graft; Z68.38 Body mass index [BMI] 38.0-38.9, adult
CPT/HCPCS: 36415; 71045; 80048; 80053; 80061; 82962; 83735; 83880; 84132; 84484; 85025; 85027; 87070; 87205; 87633; 92928; 93005; 93308; 93454; 99152; 99153; 99251; 99284; J7030; Q9957; Q9967; A4216; C1725; C1760; C1769; C1874; C1887; C8924; C9600; G0463

== ENCOUNTER → 2021-02-12 12:58 | Outpatient (CLI) | payer MEDICARE, SELFPAY ==
[2021-01-26 01:58] VITALS: BMI 38.1
--- NOTE | 2021-02-12 13:09 | PCM.CR.HP2 ---
CR - History & Physical - General Arrival date:: 02/12/21 Arrival time:: 13:10 Date of Referral:: 01/26/21 Date of CR Evaluation:: 02/12/21 Referring Physician: Dr. Lasha Win Primary Diagnosis: PCI with coronary stent - History of Present Cardiac Event Onset Date: Enter Onset Date of cardiac illnesses in Comment field below PTCA or coronary stenting:: Yes - 01/26/2021 - Sleep Disorder Evaluation Hx of Sleep Apnea: No Do you snore loudly (louder than talking or can be heard through closed doors)?: No Do you often feel tired/ fatigued/ sleepy during daytime?: No Has anyone observed you stop breathing during sleep?: No History of Hypertension (for STOP score): Yes STOP Results: Negative - Medications Home Medications: Ambulatory Orders Medication Instructions Recorded metformin 1,000 mg PO BIDCM 12/17/13 metoprolol tartrate 50 mg PO BID 12/17/13 montelukast 10 mg PO DAILY 12/17/13 omeprazole 20 mg PO DAILY 12/17/13 aspirin 81 mg tablet,delayed 81 mg PO QDAY tab 11/19/17 release lisinopril 20 mg tablet 20 mg PO DAILY 11/19/17 clopidogrel 75 mg tablet 75 mg PO QDAY tab 12/22/17 levothyroxine 137 mcg capsule 137 mcg PO QDAY 12/23/17 meclizine 12.5 mg tablet 12.5 mg PO TID PRN tab 12/23/17 furosemide 40 mg tablet 40 mg PO DAILY #90 tab 01/22/19 cetirizine 10 mg tablet 10 mg PO QDAY tab 02/15/20 ipratropium bromide 17 2 puff INHALATION 4X/DAY PRN PRN 02/15/20 mcg/actuation HFA aerosol inhaler pravastatin 80 mg tablet 80 mg PO QHS tab 02/15/20 Allopurinol 100 mg PO DAILY 10/09/20 Mucus Relief ER 1,200 mg PO BID #7 tab 01/17/21 benzonatate [Tessalon Perles] 200 mg PO BID PRN #10 cap 01/17/21 prednisone 40 mg PO DAILY 3 Days #6 tab 01/17/21 doxycycline hyclate 100 mg PO BID 01/25/21 - Allergies Allergies/Adverse Reactions: Allergies albuterol Allergy (Verified 01/25/21 23:08) Shortness of breath Anesthetics - Amide Type - Select A [Anesthetics - Amide Type] Allergy (Verified 01/25/21 23:08) Other STATES BILAT LUNGS COLLAPSED AFTER OPEN HEART SURGERY AND HAVING ANESTHESIA. PT. UNSURE OF WHICH ANESTHESIA MEDS acetaminophen [From Tylenol] Adverse Reaction (Severe, Verified 01/25/21 23:08) Other SEE'S DARK SPOTS cinnamon Adverse Reaction (Unknown, Verified 01/25/21 23:08) Unknown Penicillins Adverse Reaction (Unknown, Verified 01/25/21 23:08) Unknown Advanced Directives - Advanced Directives Power of Outside Plant Supervisor: Yes Living Will: Yes Advance Directives Information Provided: Yes Advance Directives on File: No DNR Order?:: No Past Medical History - Covid-19 Screening Fever: No Unexplained muscle aches: No Current respiratory symptoms: No Upper respiratory infections symptoms: No Gastro-intestinal symptoms: No Zvy-Yvwr-Lgerbr symptoms: No Has tested positive for COVID-19 in last 30 days: No Had contact w/person w/symptoms or Covid-19 (+) last 14 days: No Has High Risk Exposures ID'd by Health dept/Inf Control team: No 65 years or older:: Yes Lives in Assisted Living facility:: No Has a chronic lung disease or moderate to severe asthma:: No Has a serious heart condition:: Yes Immunocompromised:: No Severely obese (Body Mass Index of 40 or higher):: Yes Diabetic:: Yes Has chronic kidney disease undergoing dialysis:: Yes Has liver disease:: No - Past Medical Illness Medical History: Past Medical History (Last Updated 01/29/21 @ 17:22 by Niki Lawton) Arm paresthesia, right R20.2 Asthma J45.909 Atherosclerosis of coronary artery bypass graft without angina pectoris I25.810 Atherosclerotic heart disease of [place] coronary artery without angina pectoris I25.10 Chronic combined systolic and diastolic CHF (congestive heart failure) I50.42 CKD (chronic kidney disease) N18.9 COPD (chronic obstructive pulmonary disease) J44.9 Essential hypertension I10 GERD (gastroesophageal reflux disease) K21.9 History of non-ST elevation myocardial infarction (NSTEMI) Onset Date: 01/26/21 I25.2 01/2016, 11/05/19, 01/26/21 Hyperlipidemia E78.5 Hypothyroidism E03.9 Ischemic cardiomyopathy I25.5 Morbid obesity E66.01 Obesity E66.9 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 I25.2 Type 2 diabetes mellitus without complication E11.9 Vertigo R42 - Past Surgical History Surgical History: Past Surgical History (Last Updated 01/29/21 @ 17:20 by Niki Lawton) H/O coronary artery bypass surgery Onset Date: 10/11/07 Z95.1 CABG x 6 - HEART to LAD, SVG to D1 and D2, SVG to Ramus, SVG to OM1, SVG to RPDA 10/11/2007 History of cholecystectomy Z90.49 History of coronary artery stent placement Onset Date: 01/26/21 Z95.5 [id number]-LCx w/ 3.0 34 mm Resolute Integrity Stent 01/12/2016; PCI-KATEY-Mid RCA w/ 3.0 x 34 mm and 3.0 x 30 mm Resolute Integrity Stent, POBA-Prox RPDA 01/10/2016 [id number] unsuccessful 01/10/2016; PCI-SVG-D1 and PCI-LCx 11/05/2019; UPQ-PPJ-Eonh LCx w/ 2.25 X 18 mm Orsiro Stent 01/26/21 History of hysterectomy Z90.710 Hx of appendectomy Z90.49 Hx of bilateral cataract extraction Z98.41, Z98.42 Surgical History: coronary bypass surgery, - - CABG x 6, PCI, cholecystectomy, hysterectomy, appendectomy, bilateral cataract surgery. - Family History Summary Family History: Family History (Last Reviewed 01/25/21 @ 23:[address] Beto Sampson MD) Mother , age 86, advanced age No problems noted. Father Prostate cancer Social History - Smoking History Smoking Status: Never smoker Hx Tobacco Use: No Hx Smoking Exposure: No - Alcohol Use Alcohol Usage: No - Substance Abuse Hx Substance Use: No - Occupation Occupation (List type of work in comments):: Retired - Hobbies, Recreation, Social Activities Hobbies: Reading, Other - gardening Recreational Activities: I am able to engage in all my recreational activities Social Environment - Status Marital Status: - Current Living Arrangements Living Environment:: Family - Children How many children do you have?: 2 Do any of your children live nearby?: Yes - Safety Do you feel safe in your surroundings?: Yes - Assistance Do you need any assistance at home?: none Review of Systems - Review of Systems Hints: Right click = Denies (Slash). Left click = Reports ([place]) Review of Present Symptoms: Reports: Shortness of Breath with Exertion, Appetite - Normal, Appetite - Special Diet, Sleep - Normal. Denies: Shortness of Breath at Rest, PVD, Operative Discomfort, Angina, Wound Healing, Dizziness/Lightheadedness, Fatigue, Heart Arrhythmia/Irregularities, Sexual Changes - Pain Is Patient Pain Free?: No Pain Location: back Pain Level: 06/17 Risk Factor Assessment - Vital Signs Pulse Ox: 96 Blood Pressure: 118/50 - Pulse Pulse Rate: 71 Pulse Rhythm: Regular - Diabetes Diabetic History: Type II Nutrition Referral for Diabetes: No - Obesity Height: 5 ft 2 in Weight:: 94.801 kg Weight in Pounds: 209.0 lbs Body Mass Index (BMI): 38.2 Nutritional Referral for Obesity: No - Pt declines - Physical Inactivity Physical Inactivity: None - Risk Stratification Risk Guidelines: Lowest Risk: Risk Factor for Smoking, Moderate Risk: Risk Factor for Sedentary Lifestyle, Risk Factor for Depression, Highest Risk: Risk Factor for Dyslipidemia, Risk Factor for Diabetes, Risk Factor for Obesity, Risk Factor for Hypertension - Family History Family History: Family History (Last Reviewed 01/25/21 @ 23:[address] Beto Sampson MD) Mother No problems noted. Father Prostate cancer Motivation - Motivation to Participate On a scale of 1 to 10, how prepared are you to commit to attending program?: 10 What do you see as barriers to successfully being able to complete the program?: none What do you see as the benefits of succesfully completing the program? In other words, what do you hope to get out of participating in the program?: Improved health and knowledge of cardiac disease Are there issues you are dealing with that will interfere with completing the program?: none Do you have a spouse or signficant other, family or friends who will help support you to complete the program?: family
--- NOTE | 2021-02-12 13:10 | PCM.CR.ITP ---
Diagnosis - General Information Admitting Diagnosis: PCI with cornary stent Personal Learning Style:: Audio/Visual, Demonstration, Group, Individual Preference, Written Barriers to Learning: Vision Impairment Gave educational material for:: Treating Heart Disease, Emotions & Heart Disease, Stress Management & Relaxation, Sleep Disorders & Heart Disease, How The Heart Works, What it means to have Heart Disease, How Coronary Artery Disease is Diagnosed, Heart Procedures, What Heart Medications Do, Risk Factors & Modifications, Living an Active Life, Nutrition - Education/Goals Cardiac Rehabilitation Goals: 1. Maintain the individual as the primary focus of care. 2. To improve the patient's quality of life. 3. Identification of cardiac risk factors and provide cardiac risk factor management. 4. Enhance the psychosocial status of the patient. 5. Reconditioning enough to allow the patient to resume customary activities. 6. Control symptoms of cardiac disease Personal Goals: Initial Assessment: Improve energy level, Participate in home exercise program, Improve knowledge of cardiac disease, Improve muscle strength and endurance, Improve diet and eating habits (eat healthier), Control risk factors (learn risk factor modification) Scale for measuring improvement of personal goals: Enter appropriate number in Comments. 2 = Unchanged. 3 = Slightly Better. 4 = Moderate Improvement. 5 = Met my Goal - Diagnosis & Disease Process Outcomes/Goals: Pt IDs own risk factors & lifestyle modifications by Session 10, Verbalizes symptoms of angina & response by session 3., Pt independently manages, Other Additional Outcomes/Goals: Plan/Interventions: Assist Pt to ID & engage in lifestyle modification to reduce CVD risk, Instruct on individual risk factors, Review symptoms of angina & emergency actions, Review secondary diagnosis & identify educational needs., Other see comment 30 day Reassessments:: Not Met 30 day Reassessments:: Not Met 30 day Reassessments:: Not Met 30 day Reassessments:: Not Met Final Reassessments:: Not Met - Safety Referral to Physical Therapy: No Referral to [facility] Case Management: No Fall Risk Assessed:: Yes Assistive Devices:: Walker Exercise - Initial Assessment - Visit Date of Eval: 02/12/21 - initial eval Mets: Pre-: >7 METS for 30 minutes by discharge - Physician Prescribed Exercise Modalities: Airdyne, NuStep, SciFit Frequency: 3x/week for 12 weeks [36 sessions] Intensity: 60-80% of age predicted maximum heart rate reserve Current METSs:: 2 Target Heart Rate:: 86-115 EKG Type: NSR - Outcomes & Goals Goals:: Verbalizes understanding of THR, RPE & goal METS by session 6, Documents in home exercise log/reports 30 min aerobic 5 day/wk by DC, Demonstrates accurate pulse taking by DC, Other additional outcome/goals: see below - Intervention & Plan Exercise Program Goals: Instruct on personal THR & RPE, Instruct on MET level & personal MET goal, Show patient to take own pulse /validate performance until accurate, Instruct on home exercise, Other additional plan/int - Physical Activity Home Exercise Physical Activity - Home Exercise: Safe Exercise, Warm-up, Self-monitoring, Cool-Down, Home Exercise > 30 min Daily, Sitting Time <3 hours/daily - Outcomes & Goals Outcomes/Goals: Demonstrates correct Warm-up/exercise Cool-Down (S3) if = 2.5 METs, Verbalizes symptoms of exercise intolerance by Session 3 (S3), Demonstrate safe equipment use (S3) & follows exercise prescrition (6), Other: See below - Intervention & Plan Plan/Intervention: Instruct warm-up & cool-down if exercising at > 2 METs, Instruct on symptoms of exercise intolerance & actions to take, Instruct & monitor on saf, Assess intial functional capacity & safety risk, Other See below Nutrition - Initial Assessment - Program Goals Nutrition Program Goals: LDL <100 optimal. 100 - 129 Near optimal. 130 - 159 Borderline High. 160 - 189 High. Total Cholesterol <200 desirable. 200 - 239 Borderline High. >/= 240 High. HDL < 40 Low >/=60 High. Triglycerides <150 desirable. <199 optimal. VlDL 5 - 40. HgbA1C <7%. BMI <25 Patient has diagnosis of Hyperlipidemia (ICD E78)?: Yes - Visit Date of Assessment:: 02/12/21 - initial eval - Cholesterol/Lipids Determine presence & major risk factors that modify LDL goal: Hypertension or hypertensive medication, Low HDL cholesterol <40 mg/dL*, Family history of premature CHD in Male < 55 years: female <65 yearsFa, Age men > 45 years; women >/= 55 years Outcomes/Goals: Pt IDs own risk factors & lifestyle modifications by Session 10, Verbalizes symptoms of angina & response by session 3., Pt independently manages, Other Additional Outcomes/Goals: Intervention/Plan: Advocate for lipid panel cholesterol medication if applicable, Instruct on personal lipid levels & lipid goals/NCEP guidelines, Instruct on cholesterol, Other additional plan/int Referral to dietitian:: No - Pt declines - Diabetes (Other Core Measures) 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 Do you monitor your blood sugar at home?: Yes Outcomes/Goals:: Able to state symptoms of, Able to state, Able to state, Other additional Intervention/Plan:: Instruct on, Refer to, Instruct on, Other - Weight Mgt (Other Care) Height: 5 ft 2 in Weight:: 94.801 kg BMI: 38.2 Outcomes/Goals: Pt sets, maintains & shows weight loss goal & trend during rehab, Other additional outcomes/goals - Healthy Eating Habits Will attend diet classes:: Yes Outcomes/Goals:: Consume diet rich in vegs,fruits,whole grain/high fiber,fish,lean meat, Limit sat/trans fats,cholesterol & added salts & sugars, Other additional outcome/goals: Intervention/Plan:: Assess current eating habits, Other Additional plan/interventions - Education Gave educational materials for:: Signs & symptoms of hypoglycemia, Signs & symptoms of hyperglycemia, Relate diabetes to coronary artery disease, Healthy eating Nutrition - 30-Day Assessment Nutrition - 60-Day Assessment Nutrition - 90-Day Assessment Nutrition - Final Assessment Medical - Initial Assessment - Visit Date of Eval: 02/12/21 - initial eval - Medication Compliance Preventative Medication(s):: Aspirin, Clopidogrel/P2Y12 inhibit, Statin/lipid, Beta dima H/O mental health issues: depression, anxiety, or addiction?: No Doesn?t believe in the benefits of treatment?: No Expresses concern over the cost of medications?: No Outcomes/Goals: Verbalizes medications,desired effect & common side effects @ DC, Pt self-reports following medication regimen, Keeps card in wallet w/medications listed by DC, Other additional outcome/goals: Interventions/plans: Instruct on medication effects & side effects, Review medication list w/patient every two weeks, Instruct importance of taking meds as ordered & assist problem solving, Other additional - Tobacco Use Tobacco Use: Non-smoker Do you use smokeless tobacco?: No - Hypertension Hypertension Diagnosis:: Hypertension ICD-10 I10 Resting Blood Pressure:: 118/50 [place] [employer] Hypertension Guidelines: [place] [employer] Hypertension Guidelines. Normal BP Less than 120/80. Elevated BP 120/80. Hypertension Stage 1: BP 130-139/80-89. Hypertesnion Stage 2: BP 140 or higher/90 or higher. Hypertension Crisis: BP higher than 180/120 Outcomes/Goals: Able to verbalize/achieve optimal blood pressure <130/80, Incorporates diet changes & exercise for blood pressure control by DC, Other additional outcomes/goals - Tobacco Cessation Referral Smoking Cessation Referral:: No Individual Education/Counseling:: No Education Schedule Given:: Yes Medical- 30-Day Assessment Medical- 60-Day Assessment Medical- 90-Day Assessment Medical - Final Assessment Psychosocial - Initial Assess - VIsit Date of Eval: 02/12/21 - initial eval History of previous Mental disease:: No - Outcomes/Goals: See list Psychosocial Outcomes/Goals:: ID's personal stressors & 2 strategies to manage stress by discharge, Other Additional outcome/goals: - Intervention/Plan: See List Interventions/Plan:: Assess stressors,coping strategies & signs of derpression on admission, Instruct/assist pt to develop coping & personal stress Mgt strategies, Refer to Behavioral Health if appropriate, Refer to Physician if appropriate, Instruct patient to recognize signs & symptoms of depression, Instruct patient to recog, Other additional plan/intervention Psychosocial - 30-Day Assess Psychosocial - 60-Day Assess Psychosocial - 90-Day Assess Psychosocial - Final Assessmen Patient Health Questionnaire Initial Assessment 1. Little interest or pleasure in doing things: Not at all 2. Feeling down, depressed, or hopeless: Not at all 3. Trouble falling or staying asleep, or sleeping too much: Not at all 4. Feeling tired or having little energy: Several days 5. Poor appetite or overeating: Not at all 6. Feeling bad about yourself -- or that you are a failure or have let yourself or your family down: Not at all 7. Trouble concentrating on things, such as reading the newspaper or watching television: Not at all 8. Moving or speaking so slowly that other people could have noticed. Or the opposite - being so fidgety or restless that you have been moving around a lot more than usual: Not at all 9. Thoughts that you would be better off , or of hurting yourself in some way: Not at all How difficult have these problems made it for you to do your work, take care of things at home, or get along with other people?: Somewhat difficult Total Score: 1 AMBERLY-Q SV Test - Statements CAD is a disease of the arteries in the heart: False Examples of risk factors for heart disease: True Angina is chest pain or discomfort: I Don't Know The benefits of resistance training include: True Eating more meat and dairy products: False Anti-platelet medications such as aspirin are important: True The only effective way to manage stress: False An exercise warm-up slowly increases heart rate: True Prepared, processed foods usually have high sodium: True Depression is common after a heart attack: I Don't Know The statin medications lower cholesterol: I Don't Know To control blood pressure, lower the amount of sodium: True If someone gets chest discomfort during walking: False Transfats are partially hydrogenated vegetable oils: True Sleep apnea that is not treated increases the risk: I Don't Know To control cholesterol, one should become a vegetarian: False Someone knows if he/she is exercising at the right level: True Diabetes cannot be prevented with exercise & health eating: False Stress is a large risk for heart attack: True A diet that can help lower blood pressure is rich in: True - Total Score Total Correct Responses: 16 Self-Efficacy Initial Assessment We would like to know how confident you are in doing certain activities. Please select your confidence level for:: Select your confidence level for the following using the scale 1-10 where 1 is not at all confident and 10 is totally confident. Your score is the average of all 6 responses. Fatigue: How confident are you that you can keep the fatigue caused by your disease from interfering with the things you want to do? Select Number: 8 Physical Discomfort or Pain: How confident are you that you can keep the physical discomfort or pain of your disease from interfering with the things you want to do? Select Number: 8 Emotional Distress: How confident are you that you can keep the emotional distress caused by your disease from interfering with the things you want to do? Select Number: 10 Other Symptoms or Health Problems: How confident are you that you can keep other symptoms or health problems from interfering with the things you want to do? Select Number: 8 Different Tasks and Activities: How confident are you that you can do the different tasks and activities needed to manage your health condition so as to reduce your need to see a doctor? Select Number: 8 Medication: How confident are you that you can do things other than just taking medication to reduce how much your illness affects your everyday life? Select Number: 10 Total Score:: 8 Nutrition Survey - Nutrition Survey Initial Have you lost >10 lbs over the past 2 months without trying?: No Are you following a special diet at home for diabetes, low fat, or low salt?: Yes Are you interested in meeting with a dietitian for help understanding your diet?: No Do you eat less than 3 meals a day?: No Do you eat fatty meats (balderas, sausage, ribs, etc), fried foods, desserts, large amounts of salad dressings, margarine, butter, or cheese most days?: No Do you have food allergies? [Enter types in comment field]: Yes Do you eat in restaurants more than 3 times a week?: No Do you season food with salt, seasoning salt, or garlic salt?: No Do you used canned, boxed, frozen meals, or soups, seasoning packets?: No Total Score:: 2
[2021-02-12 14:07] VITALS: BP 118/50; PULSE 71; O2SAT 96; BMI 38.2
[2021-02-12 14:08] VITALS: BP 118/50; BMI 38.2
== END ==
PROVIDERS: PCP Internal Medicine; Referring Provider Internal Medicine Cardiovascular Disease; Visit Provider Internal Medicine Cardiovascular Disease
DX: Z95.5 Presence of coronary angioplasty implant and graft (principal)

== ENCOUNTER 2021-03-05 13:00 | Outpatient (RCR) | payer MEDICARE, SELFPAY ==
[2021-02-12 14:07] VITALS: BMI 38.2
[2021-02-12 14:08] VITALS: BMI 38.2
== END 2021-03-07 23:59 ==
LOC: CR 13:00
PROVIDERS: PCP Internal Medicine; Referring Provider Internal Medicine Cardiovascular Disease; Visit Provider Internal Medicine Cardiovascular Disease
DX: I25.810 Atherosclerosis of coronary artery bypass graft(s) without angina pectoris (principal); I25.2 Old myocardial infarction; Z95.1 Presence of aortocoronary bypass graft; I25.5 Ischemic cardiomyopathy; I50.42 Chronic combined systolic (congestive) and diastolic (congestive) heart failure; E78.00 Pure hypercholesterolemia, unspecified; I11.0 Hypertensive heart disease with heart failure
CPT/HCPCS: 93798

== ENCOUNTER 2021-03-19 13:00 | Outpatient (RCR) | payer MEDICARE, SELFPAY ==
[2021-02-12 14:08] VITALS: BMI 38.2
[2021-02-20 15:29] VITALS: BMI 39.1
--- NOTE | 2021-03-16 08:53 | CR.ITP_ITS ---
Diagnosis - General Information Admitting Diagnosis: PCI with coronary stent Personal Learning Style:: Audio/Visual, Demonstration, Group, Individual Preference, Written Stage of change r/t lifestyle modifications:: Action Gave educational material for:: Treating Heart Disease, Emotions & Heart Disease, Stress Management & Relaxation, Sleep Disorders & Heart Disease, How The Heart Works, What it means to have Heart Disease, How Coronary Artery Disease is Diagnosed, Heart Procedures, What Heart Medications Do, Risk Factors & Modifications, Living an Active Life, Nutrition - Diagnosis & Disease Process Outcomes/Goals: Pt IDs own risk factors & lifestyle modifications by Session 10, Verbalizes symptoms of angina & response by session 3., Pt independently manages, Other Additional Outcomes/Goals: Plan/Interventions: Assist Pt to ID & engage in lifestyle modification to reduce CVD risk, Instruct on individual risk factors, Review symptoms of angina & emergency actions, Review secondary diagnosis & identify educational needs., Other see comment 30 day Reassessments:: Progressing 30 day Reassessments:: Progressing 30 day Reassessments:: Progressing Final Reassessments:: Progressing - Safety Referral to Physical Therapy: No Referral to [facility] Case Management: No Fall Risk Assessed:: Yes Assistive Devices:: Walker Exercise - 30-day Assessment - Visit Date of Eval: 03/16/21 Session #:: 8 - Physician Prescribed Exercise Modalities: NuStep Frequency: 3x/week for 12 weeks [36 sessions] Intensity: 60-80% of age predicted maximum heart rate reserve Current METSs:: 2 Target Heart Rate:: 86-115 Current RPE:: 12 Maximum Excercise HR:: 92 Resting Blood Pressure: 140/48 Maximum Exercise Blood Pressure: 150/60 EKG Type: NSR w/occas PVC. Rare to occas vent couplets - Outcomes & Goals Goals:: Verbalizes understanding of THR, RPE & goal METS by session 6, Documents in home exercise log/reports 30 min aerobic 5 day/wk by DC, Demonstrates accurate pulse taking by DC, Other additional outcome/goals: see below - Intervention & Plan Exercise Program Goals: Instruct on personal THR & RPE, Instruct on MET level & personal MET goal, Show patient to take own pulse /validate performance until accurate, Instruct on home exercise, Other additional plan/int - 30-day Reassessments 30 day Reassessments:: Progressing - Physical Activity Home Exercise Physical Activity - Home Exercise: Safe Exercise, Warm-up, Self-monitoring, Cool-Down, Home Exercise > 30 min Daily, Sitting Time <3 hours/daily - Outcomes & Goals Outcomes/Goals: Demonstrates correct Warm-up/exercise Cool-Down (S3) if = 2.5 METs, Verbalizes symptoms of exercise intolerance by Session 3 (S3), Demonstrate safe equipment use (S3) & follows exercise prescrition (6), Other: See below - Intervention & Plan Plan/Intervention: Instruct warm-up & cool-down if exercising at > 2 METs, Instruct on symptoms of exercise intolerance & actions to take, Instruct & monitor on saf, Assess intial functional capacity & safety risk, Other See below - 30-day Reassessments 30 day Reassessments:: Progressing Nutrition - Initial Assessment Nutrition - 30-Day Assessment - Program Goals Nutrition Program Goals: LDL <100 optimal. 100 - 129 Near optimal. 130 - 159 Borderline High. 160 - 189 High. Total Cholesterol <200 desirable. 200 - 239 Borderline High. >/= 240 High. HDL < 40 Low >/=60 High. Triglycerides <150 desirable. <199 optimal. VlDL 5 - 40. HgbA1C <7%. BMI <25 Patient has diagnosis of Hyperlipidemia (ICD E78)?: Yes - Visit Date of Assessment:: 03/16/21 Session #:: 8 - Cholesterol/Lipids Determine presence & major risk factors that modify LDL goal: Hypertension or hypertensive medication, Low HDL cholesterol <40 mg/dL*, Family history of premature CHD in Male < 55 years: female <65 yearsFa, Age men > 45 years; women >/= 55 years Outcomes/Goals: Pt IDs own risk factors & lifestyle modifications by Session 10, Verbalizes symptoms of angina & response by session 3., Pt independently manages, Other Additional Outcomes/Goals: Intervention/Plan: Advocate for lipid panel cholesterol medication if applicable, Instruct on personal lipid levels & lipid goals/NCEP guidelines, Instruct on cholesterol, Other additional plan/int Referral to dietitian:: No - declines 30-day Reassessments:: Progressing - Diabetes (Other Core Measures) 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 Do you monitor your blood sugar at home?: Yes 30-day Reassessments:: Progressing - Weight Mgt (Other Care) Height: 5 ft 2 in Weight:: 97.296 kg BMI: 39.2 Diagnosis Overweight/Obesity BMI> 30% ICD-10 E66: Yes Outcomes/Goals: Pt sets, maintains & shows weight loss goal & trend during rehab, Other additional outcomes/goals Intervention/Plan: Instruct on ideal BMI & set weight loss goal w/patient, Assist pt to ID & incorporate diet changes for weight loss by S9, Refer to Structured Weight Loss program as appropriate, Encourage goal of using 250- 300dcal per session for weight loss, Other additional plan/interventions 30 day Reassessments:: Not Met - Healthy Eating Habits Will attend diet classes:: Yes Outcomes/Goals:: Consume diet rich in vegs,fruits,whole grain/high fiber,fish,lean meat, Limit sat/trans fats,cholesterol & added salts & sugars, Other additional outcome/goals: Intervention/Plan:: Assess current eating habits, Other Additional plan/interventions 30-day Reassessments:: Progressing Nutrition - 60-Day Assessment Nutrition - 90-Day Assessment Nutrition - Final Assessment Medical - Initial Assessment Medical- 30-Day Assessment - Visit Date of Eval: 03/16/21 Session #:: 8 - Medication Compliance Preventative Medication(s):: Aspirin, Clopidogrel/P2Y12 inhibit, Beta dima H/O mental health issues: depression, anxiety, or addiction?: No Doesn?t believe in the benefits of treatment?: No Believes medications are unnecessary or harmful?: No Has a concern about medication side effects?: No Expresses concern over the cost of medications?: No Outcomes/Goals: Verbalizes medications,desired effect & common side effects @ DC, Pt self-reports following medication regimen, Keeps card in wallet w/medications listed by DC, Other additional outcome/goals: Interventions/plans: Instruct on medication effects & side effects, Review medication list w/patient every two weeks, Instruct importance of taking meds as ordered & assist problem solving, Other additional 30-day Reassessments:: Progressing - Tobacco Use Tobacco Use: Non-smoker Do you use smokeless tobacco?: No 30-day Reassessments:: Progressing - Hypertension Hypertension Diagnosis:: Hypertension ICD-10 I10 Resting Blood Pressure:: 140/48 [place] [employer] Hypertension Guidelines: [place] [employer] Hypertension Guidelines. Normal BP Less than 120/80. Elevated BP 120/80. Hypertension Stage 1: BP 130-139/80-89. Hypertesnion Stage 2: BP 140 or higher/90 or higher. Hypertension Crisis: BP higher than 180/120 Outcomes/Goals: Able to verbalize/achieve optimal blood pressure <130/80, Incorporates diet changes & exercise for blood pressure control by DC, Other additional outcomes/goals Interventions/plan: Instruct on optimal blood pressure, hypertension & medications, Instruct on effects of sodium, alcohol, stress, exercise &hypertension, Other additional plan/interventions 30 day Reassessments:: Progressing - Tobacco Cessation Referral Smoking Cessation Referral:: No Individual Education/Counseling:: No Education Schedule Given:: Yes Medical- 60-Day Assessment Medical- 90-Day Assessment Medical - Final Assessment Psychosocial - Initial Assess Psychosocial - 30-Day Assess - VIsit Date of Eval: 03/16/21 Session #:: 8 Not Applicable: No History of previous Mental disease:: No - Psychosocial Test Tool Used:: [employer] Power QOL Cardiac, PHQ-9 Questionnaire phq-9 Severity: Severity. 1-4 Minimal Depression. 5-9 Mild Depression. 10-14 Moderate Depression. 15-19 Moderately Sever Depression. 20-27 Severe De pression. Rule: - Outcomes/Goals: See list Psychosocial Outcomes/Goals:: ID's personal stressors & 2 strategies to manage stress by discharge, Other Additional outcome/goals: - Intervention/Plan: See List Interventions/Plan:: Assess stressors,coping strategies & signs of derpression on admission, Instruct/assist pt to develop coping & personal stress Mgt strategies, Refer to Behavioral Health if appropriate, Refer to Physician if appropriate, Instruct patient to recognize signs & symptoms of depression, Instruct patient to recog, Other additional plan/intervention - 30-day Reassessments: 30 day Reassessments:: Progressing Psychosocial - 60-Day Assess Psychosocial - 90-Day Assess Psychosocial - Final Assessmen Patient Health Questionnaire 30-Day Re-eval Assessment 1. Little interest or pleasure in doing things: Not at all 2. Feeling down, depressed, or hopeless: Not at all 3. Trouble falling or staying asleep, or sleeping too much: Not at all 4. Feeling tired or having little energy: Several days 5. Poor appetite or overeating: Not at all 6. Feeling bad about yourself -- or that you are a failure or have let yourself or your family down: Not at all 7. Trouble concentrating on things, such as reading the newspaper or watching television: Not at all 8. Moving or speaking so slowly that other people could have noticed. Or the opposite - being so fidgety or restless that you have been moving around a lot more than usual: Not at all 9. Thoughts that you would be better off , or of hurting yourself in some way: Not at all How difficult have these problems made it for you to do your work, take care of things at home, or get along with other people?: Somewhat difficult Total Score: 1 Self-Efficacy 30-Day Re-eval Assessment We would like to know how confident you are in doing certain activities. Please select your confidence level for:: Select your confidence level for the following using the scale 1-10 where 1 is not at all confident and 10 is totally confident. Your score is the average of all 6 responses. Fatigue: How confident are you that you can keep the fatigue caused by your disease from interfering with the things you want to do? Select Number: 8 Physical Discomfort or Pain: How confident are you that you can keep the physical discomfort or pain of your disease from interfering with the things you want to do? Select Number: 8 Emotional Distress: How confident are you that you can keep the emotional distress caused by your disease from interfering with the things you want to do? Select Number: 10 Other Symptoms or Health Problems: How confident are you that you can keep other symptoms or health problems from interfering with the things you want to do? Select Number: 8 Different Tasks and Activities: How confident are you that you can do the different tasks and activities needed to manage your health condition so as to reduce your need to see a doctor? Select Number: 8 Medication: How confident are you that you can do things other than just taking medication to reduce how much your illness affects your everyday life? Select Number: 10 Total Score:: 8 Nutrition Survey
[2021-03-16 09:07] VITALS: BP 140/48; BMI 39.2
== END 2021-04-07 23:59 ==
LOC: CR 13:00
PROVIDERS: PCP Internal Medicine; Referring Provider Internal Medicine Cardiovascular Disease; Visit Provider Internal Medicine Cardiovascular Disease
DX: Z95.5 Presence of coronary angioplasty implant and graft (principal); I25.810 Atherosclerosis of coronary artery bypass graft(s) without angina pectoris; I25.2 Old myocardial infarction; Z95.1 Presence of aortocoronary bypass graft; I25.5 Ischemic cardiomyopathy; I11.0 Hypertensive heart disease with heart failure; I50.42 Chronic combined systolic (congestive) and diastolic (congestive) heart failure; E78.00 Pure hypercholesterolemia, unspecified
CPT/HCPCS: 93798

== ENCOUNTER 2021-04-22 07:28 | Emergency (ER) | payer MEDICARE, SELFPAY ==
[2021-02-20 15:29] VITALS: BMI 39.1
[2021-03-16 09:07] VITALS: BMI 39.2
[2021-04-22 07:29] VITALS: BP 211/81; PULSE 74; RESP 16; TEMP 36.3; O2SAT 97; BMI 40.2
--- NOTE | 2021-04-22 07:50 | EDS_ITS ---
HPI History of Present Illness Chief Complaint: Bite Informant: patient and family Narrative Narrative: Patient is a 76-year-old female who presents to the emergency department for suspected insect bite to left calf. She noticed this when getting up this morning. She went on to scratch the leg and it was painful. There is a small spot present. She denies having his have before. No other bites elsewhere. She is concerned because she started to feel tingling in her hands and felt short of breath at one point. She still does not feel completely back to her baseline. She denies any chest pain. No abdominal pain or nausea/vomiting. No fevers or chills. Nobody else in the house has similar bites. She has not seen any insects. Patient does have a history of coronary artery disease, hypertension, diabetes. She has not taken her morning medications yet. [facility] Medical History (Updated 04/22/21 @ 07:[address] 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 Type 2 diabetes mellitus without complication Vertigo Home Medications metformin 1,000 mg PO BIDCM 12/17/13 [History Last Taken 10/08/20] metoprolol tartrate 50 mg PO BID 12/17/13 [History Last Taken 10/08/20] montelukast 10 mg PO DAILY 12/17/13 [History Last Taken 10/08/20] omeprazole 20 mg PO DAILY 12/17/13 [History Last Taken 10/08/20] aspirin 81 mg tablet,delayed release 81 mg PO QDAY tab 11/19/17 [History Last Taken 10/08/20] lisinopril 20 mg tablet 20 mg PO DAILY 11/19/17 [History Last Taken 10/08/20] clopidogrel 75 mg tablet 75 mg PO QDAY tab 12/22/17 [History Last Taken 10/08/20] levothyroxine 137 mcg capsule 137 mcg PO QDAY 12/23/17 [History Last Taken 10/08/20] furosemide 40 mg tablet 40 mg PO DAILY #90 tab 01/22/19 [Rx Last Taken 10/08/20] cetirizine 10 mg tablet 10 mg PO QDAY tab 02/15/20 [History Last Taken 10/08/20] ipratropium bromide 17 mcg/actuation HFA aerosol inhaler 2 puff INHALATION 4X/DAY PRN PRN 02/15/20 [History Last Taken Unknown] pravastatin 80 mg tablet 80 mg PO QHS tab 02/15/20 [History Last Taken 10/07/20] Allopurinol 100 mg PO BID 10/09/20 [History Last Taken 10/08/20] biotin 5,000 mcg disintegrating tablet 10,000 mcg PO DAILY 02/20/21 [History Last Taken Unknown] carvedilol 25 mg tablet 25 mg PO BID 02/20/21 [History Last Taken Unknown] glipizide 10 mg tablet 10 mg PO BID 02/20/21 [History Last Taken Unknown] Allergy/AdvReac Type Severity Reaction Status Date / Time albuterol Allergy Shortness Verified 04/22/21 07:28 of breath Anesthetics - Amide Type - Allergy Other Verified 04/22/21 07:28 Select A [Anesthetics - Amide Type] acetaminophen [From Tylenol] AdvReac Severe Other Verified 04/22/21 07:28 cinnamon AdvReac Unknown Unknown Verified 04/22/21 07:28 Penicillins AdvReac Unknown Unknown Verified 04/22/21 07:28 Family History Mother , age 86, advanced age No problems noted. Father Prostate cancer Surgical History H/O coronary artery bypass surgery (10/11/07) History of cholecystectomy History of coronary artery stent placement (01/26/21) History of hysterectomy Hx of appendectomy Hx of bilateral cataract extraction Social History Smoking Status: Never smoker alcohol intake: never substance use type: does not use caffeine: Yes Type: carbonated beverages what type of physical activity do you participate in: none seatbelt use: always do you feel safe at home: Yes ROS ROS ED Constitutional Constitutional ED: Denies chills or fever(s) Eyes Eyes: Denies change in vision ENT ENT ED: Denies epistaxis or rhinorrhea Cardiovascular Cardiovascular: Denies chest pain Respiratory/Chest Respiratory/Chest: Reports dyspnea; Denies cough Gastrointestinal Gastrointestinal: Denies abdominal pain, nausea or vomiting Musculoskeletal Musculoskeletal: Denies back pain or neck pain Neurologic Neurologic: Denies dizziness, headache(s) or weakness EXAM Physical Exam Const Vital Signs: 04/22/21 07:29 Temperature 97.3 F L Temperature Source Temporal Pulse Rate 74 Respiratory Rate 16 Blood Pressure 211/81 H Blood Pressure Mean 124 Pulse Ox 97 Oxygen Delivery Method Room Air Positive well nourished and well developed General Appearance ED: well developed and NAD HEENT Reports normocephalic, head/scalp atraumatic and moist mucous membranes Eyes PERRL and EOMs intact bilaterally Neck supple General: Negative for tenderness Resp normal respiratory effort and clear to auscultation bilaterally Auscultation: Negative for rales, rhonchi or wheezes Cardio regular rate, regular rhythm and no murmurs GI normal to inspection, nondistended, normoactive bowel sounds and non-tender Palpation: soft; Negative for guarding or rebound tenderness present Extremity normal to inspection General Extremety ED: Negative for edema or tenderness General Extremity: Negative for edema Neuro Sensorium / Orientation: alert Motor Exam: strength 5/5 throughout Psych mental status grossly normal Skin Skin Narrative: Left posterior calf there is a 3 mm area of mild erythema with a centralized what looks to be bite/sting. No foreign body appreciated. No surrounding erythema, induration, underlying abscess. No streaking around the area. MDM MDM MDM Narrative Medical decision making narrative: Patient presents to the emergency department for suspected insect bite to her left leg. She was concerned because after she discovered this she became short of breath and had some tingling in her hands. She states that she did feel slightly anxious. On arrival to the ED she is hypertensive but otherwise normal vital signs. She states that she has not taken her blood pressure medications yet this morning. The area of concern does appear to be a small insect bite. There does not appear to be a localized reaction. Low concern for systemic reaction as well. She is well-appearing. Her symptoms are improving. I do recommend that she keep a close eye on the site and if it starts to enlarge she can take some Benadryl for this. If she develops any concerning symptoms including fever/chills, difficulty breathing, significant swelling of the leg and she needs to be reevaluated. At this time she will be discharged home in stable condition. Return precautions are reviewed. She understands and is agreeable this plan. All questions are answered. Discharge Plan Triage Chief Complaint: Bite ED Provider: Venu Marcus Dx/Rx/DC Orders Clinical Impression: Insect bite Instructions: ED Insect Bite Prescriptions: No Action levothyroxine 137 mcg capsule 137 mcg capsule 137 mcg PO QDAY RF: 0 lisinopril 20 mg tablet 20 mg PO DAILY RF: 0 aspirin 81 mg tablet,delayed release (DR/EC) 81 mg PO QDAY RF: 0 clopidogrel 75 mg tablet 75 mg PO QDAY RF: 0 cetirizine [Zyrtec] 10 mg tablet 10 mg PO QDAY RF: 0 furosemide [Lasix] 40 mg tablet 40 mg PO DAILY Qty: 90 RF: 4 pravastatin 80 mg tablet 80 mg PO QHS RF: 0 glipizide 10 mg tablet 10 mg PO BID RF: 0 biotin 5,000 mcg tablet,disintegrating 10,000 mcg PO DAILY RF: 0 carvedilol 25 mg tablet 25 mg PO BID RF: 0 metformin 1,000 MG tablet 1,000 mg PO BIDCM RF: 0 metoprolol tartrate 50 MG tablet 50 mg PO BID RF: 0 omeprazole 20 MG capsule 20 mg PO DAILY RF: 0 montelukast 10 MG tablet 10 mg PO DAILY RF: 0 ipratropium bromide 17 mcg/actuation HFA aerosol inhaler 2 puff INHALATION 4X/DAY PRN PRN (Reason: Asthma) RF: 0 Allopurinol 100 mg PO BID RF: 0 Primary Care Provider: Tabatha Diaz Referrals: Tabatha Diaz MD [Primary Care Provider] - As Needed Disposition Disposition: Home, Self Care Discharge Date/Time: 04/22/21 08:06
== END 2021-04-22 08:06 | disposition home or self-care (01) ==
LOC: ED 08:03
PROVIDERS: Emergency Provider Emergency Medicine; PCP Internal Medicine
DX: S80.862A Insect bite (nonvenomous), left lower leg, initial encounter (principal); I25.10 Atherosclerotic heart disease of native coronary artery without angina pectoris; I12.9 Hypertensive chronic kidney disease with stage 1 through stage 4 chronic kidney disease, or unspecified chronic kidney disease; E11.22 Type 2 diabetes mellitus with diabetic chronic kidney disease; N18.9 Chronic kidney disease, unspecified; K44.9 Diaphragmatic hernia without obstruction or gangrene; K21.9 Gastro-esophageal reflux disease without esophagitis; E78.5 Hyperlipidemia, unspecified; E03.9 Hypothyroidism, unspecified; E66.01 Morbid (severe) obesity due to excess calories; Z79.84 Long term (current) use of oral hypoglycemic drugs; Z79.899 Other long term (current) drug therapy; W57.XXXA Bitten or stung by nonvenomous insect and other nonvenomous arthropods, initial encounter; Y93.84 Activity, sleeping; Y92.003 Bedroom of unspecified non-institutional (private) residence as the place of occurrence of the external cause; Y99.8 Other external cause status
CPT/HCPCS: 99282

== ENCOUNTER 2021-10-09 11:15 | Emergency (ER) | payer MEDICARE, SELFPAY ==
[2021-03-16 09:07] VITALS: BMI 39.2
[2021-10-09] VITALS (10 sets, daily range): BP systolic 174–225; BP diastolic 55–84; PULSE 60–71; RESP 9–25; TEMP 35.9–36.1; O2SAT 96–100; BMI 38.3
--- NOTE | 2021-10-09 11:49 | EKG12_ITS ---
Test Reason : SOB Blood Pressure : / mmHG Vent. Rate : 070 BPM Atrial Rate : 070 BPM P-R Int : 152 ms QRS Dur : 092 ms QT Int : 408 ms P-R-T Axes : 057 048 090 degrees QTc Int : 440 ms Sinus rhythm with occasional Premature ventricular complexes Otherwise normal ECG Confirmed by HAILE DUQUE, NITIN ([id number]), commissioning editor SUKHDEEP CONTRERAS ([id number]) on 10/11/2021 10:53:02 AM Referred By: SAMANTHA/JAVIER Confirmed By:ELIAS BE MD
--- NOTE | 2021-10-09 11:49 | EX.ED.DYSGE1 ---
HPI History of Present Illness Chief Complaint: Shortness of Breath Informant: patient and family Narrative Narrative: 76-year-old female presenting to the emergency department stating that this morning when she got up she felt her heart beating hard. She states it was not fast to seemed harder than normal. She noted that she felt short of breath. She notes a history of COPD and asthma and states she has been coughing more than normal. She also states that she feels shaky. She reports recent UTI that was treated with multiple agents and finally took Bactrim which helped. She reports history of coronary artery disease and currently sees Dr. Win. Patient states that for her blood pressures have been running around 170. She takes metoprolol and lisinopril. She has kept records of these. No I see that she also is on carvedilol and Lasix. 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 Type 2 diabetes mellitus without complication Vertigo Home Medications metformin 1,000 mg PO BIDCM 12/17/13 [History Last Taken 10/08/20] metoprolol tartrate 50 mg PO BID 12/17/13 [History Last Taken 10/08/20] montelukast 10 mg PO DAILY 12/17/13 [History Last Taken 10/08/20] omeprazole 20 mg PO DAILY 12/17/13 [History Last Taken 10/08/20] aspirin 81 mg tablet,delayed release 81 mg PO QDAY tab 11/19/17 [History Last Taken 10/08/20] lisinopril 20 mg tablet 20 mg PO DAILY 11/19/17 [History Last Taken 10/08/20] clopidogrel 75 mg tablet 75 mg PO QDAY tab 12/22/17 [History Last Taken 10/08/20] levothyroxine 137 mcg capsule 137 mcg PO QDAY 12/23/17 [History Last Taken 10/08/20] furosemide 40 mg tablet 40 mg PO DAILY #90 tab 01/22/19 [Rx Last Taken 10/08/20] cetirizine 10 mg tablet 10 mg PO QDAY tab 02/15/20 [History Last Taken 10/08/20] ipratropium bromide 17 mcg/actuation HFA aerosol inhaler 2 puff INHALATION 4X/DAY PRN PRN 02/15/20 [History Last Taken Unknown] pravastatin 80 mg tablet 80 mg PO QHS tab 02/15/20 [History Last Taken 10/07/20] Allopurinol 100 mg PO BID 10/09/20 [History Last Taken 10/08/20] biotin 5,000 mcg disintegrating tablet 10,000 mcg PO DAILY 02/20/21 [History Last Taken Unknown] carvedilol 25 mg tablet 25 mg PO BID 02/20/21 [History Last Taken Unknown] glipizide 10 mg tablet 10 mg PO BID 02/20/21 [History Last Taken Unknown] Allergy/AdvReac Type Severity Reaction Status Date / Time albuterol Allergy Shortness Verified 10/09/21 11:19 of breath Anesthetics - Amide Type - Allergy Other Verified 10/09/21 11:19 Select A [Anesthetics - Amide Type] acetaminophen [From Tylenol] AdvReac Severe Other Verified 10/09/21 11:19 cinnamon AdvReac Unknown Unknown Verified 10/09/21 11:19 Penicillins AdvReac Unknown Unknown Verified 10/09/21 11:19 Family History Mother , age 86, advanced age No problems noted. Father Prostate cancer Surgical History H/O coronary artery bypass surgery (10/11/07) History of cholecystectomy History of coronary artery stent placement (01/26/21) History of hysterectomy Hx of appendectomy Hx of bilateral cataract extraction Social History Smoking Status: Never smoker alcohol intake: never substance use type: does not use caffeine: Yes Type: carbonated beverages what type of physical activity do you participate in: none seatbelt use: always do you feel safe at home: Yes ROS ROS ED Constitutional Constitutional ED: Denies chills or weight loss Eyes Eyes: Denies change in vision or diplopia ENT ENT ED: Denies ear pain, rhinorrhea or sore throat Cardiovascular Cardiovascular: Reports palpitations; Denies chest pain, orthopnea or racing heartbeat Respiratory/Chest Respiratory/Chest: Reports cough and dyspnea; Denies orthopnea Gastrointestinal Gastrointestinal: Denies abdominal pain, diarrhea, nausea or vomiting Genitourinary Genitourinary ED: Denies dysuria, hematuria or urinary frequency Musculoskeletal Musculoskeletal: Denies arthralgias or myalgias Integumentary Denies abscess or rash Neurologic Neurologic: Denies headache(s) or weakness Psychiatric Psychiatric: Denies anxiety, depression, suicidal ideation or suicidal thoughts Endocrine Endocrinology: Denies polydipsia, polyphagia or polyuria Allergic/Immunologic Allergic/Immunologic ED: Denies mouth swelling, tongue swelling or urticaria EXAM Physical Exam Const Vital Signs: 10/09/21 11:17 10/09/21 11:19 10/09/21 11:29 Temperature 96.6 F L 96.6 F L Temperature Source Temporal Temporal Pulse Rate 71 71 Respiratory Rate 18 18 Respiratory Effort Non-Labored Short of Breath Respiratory Depth Normal Blood Pressure 174/55 H 174/55 H Blood Pressure Mean 94 94 Pulse Ox 100 100 Oxygen Delivery Method Room Air Room Air 10/09/21 11:30 10/09/21 12:09 10/09/21 12:19 Temperature 97 F L Temperature Source Temporal Pulse Rate 64 Respiratory Rate 11 L Respiratory Effort Non-Labored Short of Breath Respiratory Depth Blood Pressure 200/73 H Blood Pressure Mean 115 Pulse Ox 96 99 Oxygen Delivery Method Room Air Room Air 10/09/21 13:01 10/09/21 13:27 10/09/21 13:47 Temperature 97 F L Temperature Source Temporal Pulse Rate 64 67 60 Respiratory Rate 11 L 25 H 11 L Respiratory Effort Respiratory Depth Blood Pressure 200/73 H 217/77 H 225/84 H Blood Pressure Mean 115 123 131 Pulse Ox 99 98 100 Oxygen Delivery Method Room Air Room Air Room Air 10/09/21 13:54 10/09/21 14:36 Temperature Temperature Source Pulse Rate 65 Respiratory Rate 9 L Respiratory Effort Respiratory Depth Blood Pressure 208/59 H 186/64 H Blood Pressure Mean 108 104 Pulse Ox 99 Oxygen Delivery Method Room Air Positive well nourished, well developed and obese General Appearance ED: well developed Nutritional Appearance: obese HEENT Reports normocephalic, head/scalp atraumatic, TM's clear and moist mucous membranes Negative for trauma Tympanic Membrane ED: Yes TM's clear Eyes PERRL and EOMs intact bilaterally Neck no lymphadenopathy, supple and no JVD Resp normal respiratory effort and clear to auscultation bilaterally Cardio regular rate, regular rhythm and no murmurs GI normal to inspection, nondistended, normoactive bowel sounds and non-tender Palpation: soft Back/Spine no CVA tenderness and normal ROM Extremity normal to inspection General Extremety ED: Negative for edema General Extremity: Negative for edema Neuro oriented x3 and CN's II-XII intact bilaterally Sensorium / Orientation: alert Motor Exam: strength 5/5 throughout Psych mental status grossly normal Mood & Affect: Negative for depressed or tearful Skin no rashes or lesions noted and no wounds MDM MDM MDM Narrative Medical decision making narrative: My interpretation of the chest x-ray is no acute process. patient's blood pressures have been running around 200-2 10 systolically. She received a dose of hydralazine and is down to 186/6040. She has not had any further symptoms here in the department. White count 10.1 hemoglobin 9 4. Troponin of 17. This does represent 6 hours since the onset of arsenic and was worried about urinalysis shows some contamination with 25 white cells 2+ bacteria but she is asymptomatic. Delta troponin was 18. At this point patient will be instructed to take an extra dose of her lisinopril tonight. She checks her blood pressure typically twice a day. She continues to be elevated I advised her to go ahead and make lisinopril 40 mg once a day until she sees her doctor. Lab Data Attestation: I reviewed the patient's lab results. Labs: Laboratory Results - last 24 hr 10/09/21 10/09/21 10/09/21 12:13 12:13 12:55 WBC 10.1 RBC 3.74 L Hgb 11.4 L Hct 36.0 L MCV 96.3 MCH 30.5 MCHC 31.7 L RDW Std Deviation 46.2 H RDW Coeff of Kamar 13.1 Plt Count 272 MPV 10.4 Immature Gran % (Auto) 0.400 Neut % (Auto) 66.6 Lymph % (Auto) 23.6 [place] % (Auto) 4.7 Eos % (Auto) 4.1 Baso % (Auto) 0.6 Absolute Neuts (auto) 6.7 Absolute Lymphs (auto) 2.37 Nucleated RBC % 0 Sodium 138 Potassium 4.3 Chloride 107 Carbon Dioxide 26.0 Anion Gap 5 BUN 18 Creatinine 1.80 H Estim Creat Clear Calc 19.75 Est GFR (MDRD) Af Amer 35 L Est GFR (MDRD) Non-Af 29 L BUN/Creatinine Ratio 10.0 Glucose 120 H Calcium 8.7 Troponin I High Sens 17 Urine Color Straw Urine Clarity Sl. Cloudy Urine pH 6.5 Ur Specific [place] 1.010 Urine Protein 30 H Urine Glucose (UA) Normal Urine Ketones Negative Urine Occult Blood 10 H Urine Nitrite Negative Urine Bilirubin Negative Urine Urobilinogen Normal Ur Leukocyte Esterase 500 H Urine RBC 0-5 SEEN Urine WBC 10-25 SEEN Ur Squamous Epith Cells 5-10 SEEN Urine Bacteria 2+ Urine Mucus 0 SEEN 10/09/21 15:00 WBC RBC Hgb Hct MCV MCH MCHC RDW Std Deviation RDW Coeff of Kamar Plt Count MPV Immature Gran % (Auto) Neut % (Auto) Lymph % (Auto) [place] % (Auto) Eos % (Auto) Baso % (Auto) Absolute Neuts (auto) Absolute Lymphs (auto) Nucleated RBC % Sodium Potassium Chloride Carbon Dioxide Anion Gap BUN Creatinine Estim Creat Clear Calc Est GFR (MDRD) Af Amer Est GFR (MDRD) Non-Af BUN/Creatinine Ratio Glucose Calcium Troponin I High Sens 18 Urine Color Urine Clarity Urine pH Ur Specific [place] Urine Protein Urine Glucose (UA) Urine Ketones Urine Occult Blood Urine Nitrite Urine Bilirubin Urine Urobilinogen Ur Leukocyte Esterase Urine RBC Urine WBC Ur Squamous Epith Cells Urine Bacteria Urine Mucus Radiography Diagnostic Testing: Clinical Impression(s) from Imaging Studies Chest X-Ray 10/09/21 12:25 IMPRESSION: Findings suggest overall mild bilateral parahilar bronchitis. Electronically Signed: Brandyn Cheng MD at 12:39 EST , EKG Initial EKG: Attestation: I personally reviewed and interpreted this EKG as follows: Comments: Sinus rhythm with a ventricular rate of 70 bpm. Noted PVC. Discharge Plan Triage Chief Complaint: Shortness of Breath ED Provider: Malcolm Fuentes Dx/Rx/DC Orders Clinical Impression: Hypertensive urgency, Chest pain Instructions: ED High Blood Pressure Hypertension Prescriptions: No Action levothyroxine 137 mcg capsule 137 mcg capsule 137 mcg PO QDAY RF: 0 lisinopril 20 mg tablet 20 mg PO DAILY RF: 0 aspirin 81 mg tablet,delayed release (DR/EC) 81 mg PO QDAY RF: 0 clopidogrel 75 mg tablet 75 mg PO QDAY RF: 0 cetirizine [Zyrtec] 10 mg tablet 10 mg PO QDAY RF: 0 furosemide [Lasix] 40 mg tablet 40 mg PO DAILY Qty: 90 RF: 4 pravastatin 80 mg tablet 80 mg PO QHS RF: 0 glipizide 10 mg tablet 10 mg PO BID RF: 0 biotin 5,000 mcg tablet,disintegrating 10,000 mcg PO DAILY RF: 0 carvedilol 25 mg tablet 25 mg PO BID RF: 0 metformin 1,000 MG tablet 1,000 mg PO BIDCM RF: 0 metoprolol tartrate 50 MG tablet 50 mg PO BID RF: 0 omeprazole 20 MG capsule 20 mg PO DAILY RF: 0 montelukast 10 MG tablet 10 mg PO DAILY RF: 0 ipratropium bromide 17 mcg/actuation HFA aerosol inhaler 2 puff INHALATION 4X/DAY PRN PRN (Reason: Asthma) RF: 0 Allopurinol 100 mg PO BID RF: 0 Primary Care Provider: Tabatha Diaz Referrals: Tabatha Diaz MD [Primary Care Provider] - As soon as possible Activity Restrictions/Additional Instructions: Please follow-up with your tab cutter or your primary care doctor soon as possible discuss your blood pressure medications. Please take your blood pressure readings with him. As discussed when you get home please take a extra dose of your lisinopril. Disposition Disposition: Home, Self Care
--- NOTE | 2021-10-09 12:25 | RAD_ITS ---
STUDY: X-RAY CHEST REASON FOR EXAM: Female, 76 years old. Chest pain TECHNIQUE: Single AP portable view of the chest. COMPARISON: Comparison is made with prior study dated 01/25/2021. FINDINGS: EKG electrodes are seen. Mild bilateral parahilar increased markings suggestive of possible bilateral perihilar bronchitis. There is no demonstrated pleural abnormality. Sternal cerclage wires and vascular clips are present from a prior sternotomy and coronary artery bypass graft procedure (CABG). Normal mediastinum and teri. Normal visualized pulmonary arteries. There is atherosclerotic calcification of the aortic arch with tortuosity. There are degenerative changes of the visualized thoracic spine. Normal visualized ribs, clavicles, and shoulders. There is no demonstrated abnormality of the visualized soft tissue structures of the upper abdomen. RAD/Chest 1 View (Portable) IMPRESSION: Findings suggest overall mild bilateral parahilar bronchitis. Electronically Signed: Brandyn Cheng MD at 12:39 EST ,
[2021-10-09 12:31] LABS: Absolute Lymphocyte Count 2.37 X10^3/uL (0.83-4.51); Absolute Neutrophil Count 6.7 X10^3/uL (2.0-7.7); Basophil# 0.06 X10^3/uL; Basophil% 0.6 % (0-1); Eosinophil# 0.41 X10^3/uL; Eosinophils% 4.1 % (0-5); Hemoglobin 11.4 g/dL (12.0-15.0); Lymphocyte # 2.37 X10^3/ul (0.83-4.51); Lymphocyte % 23.6 % (19-41); Mean Corp Hgb Conc 31.7 g/dL (32-36); Mean Corpuscular Hgb 30.5 pg (27.0-32.0); Mean Corpuscular Volume 96.3 fL (81-99); Mean Platelet Vol. 10.4 fl (6.2-12.0); Monocyte# 0.47 X10^3/uL; Monocyte% 4.7 % (0-10); NRBC Flagged by Analyzer 0 % (0-5); Neutrophil # 6.71 X10^3/uL (2.7-7.7); Neutrophil % 66.6 % (47-70); Platelet Count 272 K/mm3 (150-450); RBC Distribution Width CV 13.1 % (11.6-14.6); RBC Distribution Width SD 46.2 fl (35.1-43.9); Red Blood Count 3.74 M/mm3 (4.2-5.4); White Blood Count 10.1 K/mm3 (4.4-11.0)
[2021-10-09 12:49] LABS: Anion Gap 5 (5-15); BUN 18 mg/dL (7-18); Calcium,Total 8.7 mg/dL (8.5-10.1); Chloride 107 mmol/L (98-107); EST Glomerular Filtration Rate 29 mL/min (>60); Est Glom Filt Rate - Afr Amer 35 mL/min (>60); Estimated Creatinine Clearance 19.75 ml/min; Glucose 120 mg/dL (74-106); Potassium 4.3 mmol/L (3.5-5.1); Sodium Level 138 mmol/L (136-145); Troponin-I HS 17 pg/mL (3.0-54.0)
[2021-10-09 13:02] LABS: Mucous, Urine 0 SEEN /hpf (<or=2+)
[2021-10-09 13:14] LABS: Color, Urine Straw (Yellow); Glucose, Dipstick Normal (Normal); Ketone-Dipstick Negative (Negative); Leukocyte Esterase-Dipstick 500 /ul (Negative); Nitrite-Dipstick Negative (Negative); Occult Blood-Urine 10 /ul (Negative); Protein-Dipstick 30 mg/dl (Negative); Urine Bilirubin Dipstick Negative (Negative); Urine Clarity Sl. Cloudy (Clear); Urine Urobilinogen Normal (Normal); Urine pH 6.5 (5.0 - 8.0)
[2021-10-09 13:29] LABS: Bacteria 2+ /hpf (None Seen); Red Blood Cells-Urine 0-5 SEEN /hpf (0-5); Squamous Epithelial Cells - UA 5-10 SEEN /hpf (5-10); White Blood Cells 10-25 SEEN /hpf (0-5)
[2021-10-09] MEDS: hydrALAZINE 20 MG/ML Vial 10 MG IV (13:51)
[2021-10-09 15:27] LABS: Troponin-I HS 18 pg/mL (3.0-54.0)
--- NOTE | 2021-10-10 17:36 | CM.ED ---
ER DC F/u Call: Patient Dc'd from ER 10/09/21 for Hypertensive Urgency, CP. CC: SOB. H/o COPD, Asthma. Called patient at listed number, No answer. VM identified correct patient, VM left to return call if having any questions or concerns. Jacki Lopez RNCM
== END 2021-10-09 15:57 | disposition home or self-care (01) ==
PROVIDERS: Emergency Provider Emergency Medicine; PCP Internal Medicine; Visit Provider Emergency Medicine
DX: I16.0 Hypertensive urgency (principal); J44.9 Chronic obstructive pulmonary disease, unspecified; I50.42 Chronic combined systolic (congestive) and diastolic (congestive) heart failure; I13.0 Hypertensive heart and chronic kidney disease with heart failure and stage 1 through stage 4 chronic kidney disease, or unspecified chronic kidney disease; E11.22 Type 2 diabetes mellitus with diabetic chronic kidney disease; E66.01 Morbid (severe) obesity due to excess calories; I49.3 Ventricular premature depolarization; I25.5 Ischemic cardiomyopathy; E78.5 Hyperlipidemia, unspecified; N18.9 Chronic kidney disease, unspecified; I25.10 Atherosclerotic heart disease of native coronary artery without angina pectoris; Z87.440 Personal history of urinary (tract) infections; K21.9 Gastro-esophageal reflux disease without esophagitis; I25.2 Old myocardial infarction; Z79.84 Long term (current) use of oral hypoglycemic drugs; Z79.82 Long term (current) use of aspirin; Z79.899 Other long term (current) drug therapy; Z95.1 Presence of aortocoronary bypass graft; R07.9 Chest pain, unspecified; Z68.38 Body mass index [BMI] 38.0-38.9, adult
CPT/HCPCS: 36415; 71045; 80048; 81001; 84484; 85025; 93005; 96374; 99285; A4216

== ENCOUNTER 2022-01-10 09:54 | Emergency (ER) | payer MEDICARE, SELFPAY ==
[2021-03-16 09:07] VITALS: BMI 39.2
[2022-01-10 09:55] VITALS: BP 182/49; PULSE 56; RESP 18; TEMP 36.3; O2SAT 99; BMI 37.8
--- NOTE | 2022-01-10 10:27 | ED.VIS.DYS ---
HPI History of Present Illness Chief Complaint: Asthma Informant: patient Onset/Context/Timing Onset: Yesterday Context: gradual Timing: Continuous Quality: Positive for Orthopnea Worsened by: Lying flat Relieved by: other (Home aerosols and inhalers) Associated Symptoms cough and yellow sputum; Negative for rhinorrhea, ear pain, fever, sore throat or chills Chest Pain: Positive for None Narrative Narrative: Patient presents with shortness of breath that has been getting worse since last evening. Patient states it is gradually getting worse. Patient admits to some orthopnea. Patient states it has been constant since last night. Patient states her breathing is worse when she lies flat. Patient states her breathing improves when she takes her aerosols and her inhalers. Patient admits to a cough with some yellow sputum. Patient denies any fevers or chills. Patient denies any sore throat or rhinorrhea. Patient denies any chest pain. Patient also states she feels like she has urinary tract infection. Patient admits to some dysuria but denies any hematuria. Patient denies any back or flank pain. Patient denies any nausea or vomiting. [facility] Medical History Arm paresthesia, right Asthma Atherosclerosis of coronary artery bypass graft without angina pectoris Atherosclerotic heart disease of [place] coronary artery without angina pectoris CKD (chronic kidney disease) COPD (chronic obstructive pulmonary disease) Essential hypertension GERD (gastroesophageal reflux disease) History of non-ST elevation myocardial infarction (NSTEMI) (01/26/21) Hyperlipidemia Hypothyroidism Insect bite Morbid obesity Obesity 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 Type 2 diabetes mellitus without complication Vertigo Home Medications metoprolol tartrate 50 mg PO BID 12/17/13 [History Last Taken 10/08/20] montelukast 10 mg PO DAILY 12/17/13 [History Last Taken 10/08/20] omeprazole 20 mg PO DAILY 12/17/13 [History Last Taken 10/08/20] aspirin 81 mg tablet,delayed release 81 mg PO QDAY tab 11/19/17 [History Last Taken 10/08/20] clopidogrel 75 mg tablet 75 mg PO QDAY tab 12/22/17 [History Last Taken 10/08/20] cetirizine 10 mg tablet 10 mg PO QDAY tab 02/15/20 [History Last Taken 10/08/20] ipratropium bromide 17 mcg/actuation HFA aerosol inhaler 2 puff INHALATION 4X/DAY PRN PRN 02/15/20 [History Last Taken Unknown] pravastatin 80 mg tablet 80 mg PO QHS tab 02/15/20 [History Last Taken 10/07/20] biotin 5,000 mcg disintegrating tablet 10,000 mcg PO DAILY 02/20/21 [History Last Taken Unknown] glipizide 10 mg tablet 10 mg PO BID 02/20/21 [History Last Taken Unknown] allopurinol 100 mg tablet 100 mg PO DAILY tab 11/22/21 [History Last Taken Unknown] furosemide 40 mg tablet 40 mg PO .qod tab 11/22/21 [History Last Taken Unknown] levothyroxine 100 mcg tablet 100 mcg PO DAILY tab 11/22/21 [History Last Taken Unknown] lisinopril 30 mg tablet 30 mg PO DAILY tab 11/22/21 [History Last Taken Unknown] cephalexin 500 mg PO Q6 #20 capsule 01/10/22 [Rx Last Taken Unknown] prednisone 60 mg PO DAILY #12 tablet 01/10/22 [Rx Last Taken Unknown] Allergy/AdvReac Type Severity Reaction Status Date / Time albuterol Allergy Shortness Verified 01/10/22 09:55 of breath Anesthetics - Amide Type - Allergy Other Verified 01/10/22 09:55 Select A [Anesthetics - Amide Type] acetaminophen [From Tylenol] AdvReac Severe Other Verified 01/10/22 09:55 cinnamon AdvReac Unknown Unknown Verified 01/10/22 09:55 Penicillins AdvReac Unknown Unknown Verified 01/10/22 09:55 Family History Mother , age 86, advanced age No problems noted. Father Prostate cancer Surgical History H/O coronary artery bypass surgery (10/11/07) History of cholecystectomy History of coronary artery stent placement (01/26/21) History of hysterectomy Hx of appendectomy Hx of bilateral cataract extraction Social History Smoking Status: Never smoker alcohol intake: never substance use type: does not use caffeine: Yes Type: carbonated beverages what type of physical activity do you participate in: none seatbelt use: always do you feel safe at home: Yes ROS ROS ED Constitutional Constitutional ED: Denies chills or fever(s) Eyes Eyes: Denies blurry vision or change in vision ENT ENT ED: Denies rhinorrhea or sore throat Cardiovascular Cardiovascular: Denies chest pain or palpitations Respiratory/Chest Respiratory/Chest: Reports cough and dyspnea Gastrointestinal Gastrointestinal: Denies nausea or vomiting Genitourinary Genitourinary ED: Reports dysuria; Denies hematuria Musculoskeletal Musculoskeletal: Denies back pain or neck pain Integumentary Denies abscess or rash Neurologic Neurologic: Denies headache(s) or weakness Allergic/Immunologic Allergic/Immunologic ED: Denies mouth swelling or urticaria EXAM Physical Exam Const Vital Signs: 01/10/22 09:55 01/10/22 10:41 Temperature 97.3 F L Temperature Source Temporal Pulse Rate 56 L Respiratory Rate 18 Respiratory Effort Short of Breath Respiratory Depth Normal Respiratory Pattern Normal Blood Pressure 182/49 H Blood Pressure Mean 93 Pulse Ox 99 Oxygen Delivery Method Room Air Room Air Positive well nourished, well developed and obese General Appearance ED: well developed and NAD Nutritional Appearance: obese HEENT Reports moist mucous membranes Neck supple and no JVD Resp normal respiratory effort Auscultation: diminished lung sounds bilateral lower Cardio regular rate and regular rhythm GI non-tender and non-distended Auscultation: normoactive bowel sounds Palpation: soft Extremity Extremity Narrative: There is trace edema of the ankles bilaterally. General Extremety ED: Yes edema; Negative for tenderness General Extremity: edema Neuro oriented x3, CN's II-XII intact bilaterally and no sensory deficits noted Sensorium / Orientation: alert Motor Exam: strength 5/5 throughout Psych mental status grossly normal Skin Lesions: no lesions Rashes: no rashes MDM MDM MDM Narrative Medical decision making narrative: Portable 1 view chest x-ray was obtained. On my interpretation, lung myles are clear. There is normal cardiac silhouette. Bony thorax is normal. There is no acute process noted. Radiologist also interpreted the x-ray and agrees. EKG was obtained. On my interpretation, it showed a normal sinus rhythm with sinus arrhythmia with a rate of 61. [place] interval, QRS interval, and QTc intervals were all normal. [place] was normal. There are no acute ST or T wave changes. CBC shows a mild anemia with a hemoglobin of 11.3 hematocrit 34.8. Platelets were normal. Comprehensive metabolic profile showed a slightly elevated BUN of 28 and creatinine of 1.69. These are consistent with prior results. BNP was mildly elevated at 399.6. This is also consistent with prior results. High-sensitivity troponin was normal. Urinalysis shows leukocyte esterase of 500 with greater than 100 white blood cells. Urine culture was ordered. Patient was given a dose of Keflex here. Patient was given a prescription for Keflex. Patient was also given a prescription for prednisone. Patient was advised that her breathing may be due to her dog allergy. Patient was instructed to follow-up with her primary care physician in 5 to 7 days. Patient understood and was agreeable with the plan. All questions were answered. Lab Data Labs: Laboratory Results - last 24 hr 01/10/22 01/10/22 01/10/22 10:40 10:40 10:40 WBC 11.0 RBC 3.66 L Hgb 11.3 L Hct 34.8 L MCV 95.1 MCH 30.9 MCHC 32.5 RDW Std Deviation 48.0 H RDW Coeff of Kamar 13.8 Plt Count 274 MPV 10.3 Immature Gran % (Auto) 0.300 Neut % (Auto) 66.5 Lymph % (Auto) 21.8 [place] % (Auto) 5.0 Eos % (Auto) 5.9 H Baso % (Auto) 0.5 Absolute Neuts (auto) 7.3 Absolute Lymphs (auto) 2.39 Nucleated RBC % 0 Sodium 139 Potassium 4.7 Chloride 112 H Carbon Dioxide 23.0 Anion Gap 4 L BUN 28 H Creatinine 1.69 H Estim Creat Clear Calc 21.04 Est GFR (MDRD) Af Amer 38 L Est GFR (MDRD) Non-Af 31 L BUN/Creatinine Ratio 16.6 Glucose 141 H Calcium 8.6 Total Bilirubin 0.20 AST 18 ALT 17 Alkaline Phosphatase 105 Troponin I High Sens 24 B-Natriuretic Peptide 399.6 H Total Protein 7.8 Albumin 3.7 Globulin 4.1 Albumin/Globulin Ratio 0.9 Urine Color Urine Clarity Urine pH Ur Specific [place] Urine Protein Urine Glucose (UA) Urine Ketones Urine Occult Blood Urine Nitrite Urine Bilirubin Urine Urobilinogen Ur Leukocyte Esterase Urine RBC Urine WBC Ur Squamous Epith Cells Urine Bacteria Urine Mucus 01/10/22 10:40 WBC RBC Hgb Hct MCV MCH MCHC RDW Std Deviation RDW Coeff of Kamar Plt Count MPV Immature Gran % (Auto) Neut % (Auto) Lymph % (Auto) [place] % (Auto) Eos % (Auto) Baso % (Auto) Absolute Neuts (auto) Absolute Lymphs (auto) Nucleated RBC % Sodium Potassium Chloride Carbon Dioxide Anion Gap BUN Creatinine Estim Creat Clear Calc Est GFR (MDRD) Af Amer Est GFR (MDRD) Non-Af BUN/Creatinine Ratio Glucose Calcium Total Bilirubin AST ALT Alkaline Phosphatase Troponin I High Sens B-Natriuretic Peptide Total Protein Albumin Globulin Albumin/Globulin Ratio Urine Color Yellow Urine Clarity Cloudy Urine pH 6.0 Ur Specific [place] 1.010 Urine Protein 100 H Urine Glucose (UA) Normal Urine Ketones Negative Urine Occult Blood 50 H Urine Nitrite Negative Urine Bilirubin Negative Urine Urobilinogen Normal Ur Leukocyte Esterase 500 H Urine RBC 0 SEEN Urine WBC >100 SEEN Ur Squamous Epith Cells 0 SEEN Urine Bacteria 0 SEEN Urine Mucus 0 SEEN Radiography Chest X-Ray - ED: 1 View, Read by ED Physician, Read by Radiologist and No Acute Disease Diagnostic Testing: Clinical Impression(s) from Imaging Studies Chest X-Ray 01/10/22 10:32 IMPRESSION: Improved aeration of both lungs in the perihilar regions. Mild residual changes persist. Electronically Signed: Brandyn Cheng MD at 11:22 EDT , Discharge Plan Triage Chief Complaint: Asthma ED Provider: Alfonso Padilla Dx/Rx/DC Orders Clinical Impression: Dyspnea, Urinary tract infection Instructions: ED Dyspnea, ED CYSTITIS Female Adult Prescriptions: New prednisone 20 MG tablet 60 mg PO DAILY Qty: 12 RF: 0 cephalexin [cephalexin] 500 MG capsule 500 mg PO Q6 Qty: 20 RF: 0 No Action aspirin 81 mg tablet,delayed release (DR/EC) 81 mg PO QDAY RF: 0 clopidogrel 75 mg tablet 75 mg PO QDAY RF: 0 cetirizine [Zyrtec] 10 mg tablet 10 mg PO QDAY RF: 0 pravastatin 80 mg tablet 80 mg PO QHS RF: 0 glipizide 10 mg tablet 10 mg PO BID RF: 0 biotin 5,000 mcg tablet,disintegrating 10,000 mcg PO DAILY RF: 0 lisinopril 30 mg tablet 30 mg PO DAILY RF: 0 levothyroxine 100 mcg tablet 100 mcg PO DAILY RF: 0 furosemide [Lasix] 40 mg tablet 40 mg PO .qod RF: 0 allopurinol 100 mg tablet 100 mg PO DAILY RF: 0 metoprolol tartrate 50 MG tablet 50 mg PO BID RF: 0 omeprazole 20 MG capsule 20 mg PO DAILY RF: 0 montelukast 10 MG tablet 10 mg PO DAILY RF: 0 ipratropium bromide 17 mcg/actuation HFA aerosol inhaler 2 puff INHALATION 4X/DAY PRN PRN (Reason: Asthma) RF: 0 Primary Care Provider: Tabatha Diaz Referrals: Tabatha Diaz MD [Primary Care Provider] - 3-5 Days Disposition Disposition: Home, Self Care
--- NOTE | 2022-01-10 10:32 | EKG12_ITS ---
Test Reason : ASTHMA Blood Pressure : / mmHG Vent. Rate : 061 BPM Atrial Rate : 061 BPM P-R Int : 160 ms QRS Dur : 100 ms QT Int : 448 ms P-R-T Axes : 025 050 096 degrees QTc Int : 450 ms Sinus rhythm with marked sinus arrhythmia Otherwise normal ECG Confirmed by ARNALDO DUQUE, DARLENE ([id number]), copy editor SUKHDEEP CONTRERAS ([id number]) on 01/14/2022 1:33:13 PM Referred By: KEATON Confirmed By:DARLENE MCINTOSH MD
--- NOTE | 2022-01-10 10:32 | RAD_ITS ---
STUDY: X-RAY CHEST REASON FOR EXAM: Female, 76 years old. Dyspnea TECHNIQUE: Single AP portable view of the chest. COMPARISON: Comparison is made with prior study dated 10/09/2021. FINDINGS: Persistent mild degree of increased bilateral perihilar markings although has been improvement. This may represent scarring. There is no demonstrated pleural abnormality. Sternal cerclage wires and vascular clips are present from a prior sternotomy and coronary artery bypass graft procedure (CABG). Normal mediastinum and teri. Normal visualized pulmonary arteries. There is atherosclerotic calcification of the aortic arch with tortuosity. There are diffuse degenerative changes of the visualized thoracic spine. Normal visualized ribs, clavicles, and shoulders. There is no demonstrated abnormality of the visualized soft tissue structures of the upper abdomen. RAD/Chest 1 View (Portable) IMPRESSION: Improved aeration of both lungs in the perihilar regions. Mild residual changes persist. Electronically Signed: Brandyn Cheng MD at 11:22 EDT ,
[2022-01-10 10:41] VITALS: O2SAT 99
[2022-01-10 11:06] LABS: Bacteria 0 SEEN /hpf (None Seen); Mucous, Urine 0 SEEN /hpf (<or=2+); Red Blood Cells-Urine 0 SEEN /hpf (0-5); Squamous Epithelial Cells - UA 0 SEEN /hpf (5-10)
[2022-01-10 11:08] LABS: Absolute Lymphocyte Count 2.39 X10^3/uL (0.83-4.51); Absolute Neutrophil Count 7.3 X10^3/uL (2.0-7.7); Basophil# 0.06 X10^3/uL; Basophil% 0.5 % (0-1); Eosinophil# 0.65 X10^3/uL; Eosinophils% 5.9 % (0-5); Hematocrit 34.8 % (37-47); Hemoglobin 11.3 g/dL (12.0-15.0); Lymphocyte # 2.39 X10^3/ul (0.83-4.51); Lymphocyte % 21.8 % (19-41); Mean Corp Hgb Conc 32.5 g/dL (32-36); Mean Corpuscular Hgb 30.9 pg (27.0-32.0); Mean Corpuscular Volume 95.1 fL (81-99); Mean Platelet Vol. 10.3 fl (6.2-12.0); Monocyte# 0.55 X10^3/uL; NRBC Flagged by Analyzer 0 % (0-5); Neutrophil % 66.5 % (47-70); Platelet Count 274 K/mm3 (150-450); RBC Distribution Width CV 13.8 % (11.6-14.6); Red Blood Count 3.66 M/mm3 (4.2-5.4)
[2022-01-10 11:09] LABS: Color, Urine Yellow (Yellow); Glucose, Dipstick Normal (Normal); Ketone-Dipstick Negative (Negative); Leukocyte Esterase-Dipstick 500 /ul (Negative); Nitrite-Dipstick Negative (Negative); Occult Blood-Urine 50 /ul (Negative); Protein-Dipstick 100 mg/dl (Negative); Urine Bilirubin Dipstick Negative (Negative); Urine Clarity Cloudy (Clear); Urine Urobilinogen Normal (Normal)
[2022-01-10 11:16] LABS: White Blood Cells >100 SEEN /hpf (0-5)
[2022-01-10 11:26] LABS: ALB/GLOB Ratio 0.9 RATIO (0.9-2.4); AST(SGOT) 18 U/L (15-37); Alanine Aminotransfer ALT/SGPT 17 U/L (13-56); Albumin, Serum 3.7 g/dL (3.2-5.0); Alkaline Phosphatase 105 U/L (45-117); Anion Gap 4 (5-15); BUN 28 mg/dL (7-18); BUN/Creat Ratio 16.6 RATIO (10-20); Calcium,Total 8.6 mg/dL (8.5-10.1); Chloride 112 mmol/L (98-107); Creatinine, Serum 1.69 mg/dL (0.55-1.02); EST Glomerular Filtration Rate 31 mL/min (>60); Est Glom Filt Rate - Afr Amer 38 mL/min (>60); Estimated Creatinine Clearance 21.04 ml/min; Globulin 4.1 g/dL (2.2-4.2); Glucose 141 mg/dL (74-106); Potassium 4.7 mmol/L (3.5-5.1); Protein, Total 7.8 g/dL (6.4-8.2); Sodium Level 139 mmol/L (136-145); Troponin-I HS 24 pg/mL (3.0-54.0)
[2022-01-10 11:28] LABS: BNP,B-Type NATRIURETIC PEPTIDE 399.6 pg/mL (0-100)
[2022-01-10] MEDS: Cephalexin 500 MG Capsule PO (13:04)
[2022-01-10] MEDS: predniSONE 20 MG Tablet 60 MG PO (13:04)
--- NOTE | 2022-01-15 13:57 | CM.ED ---
ER RNCM DC F/u Call: ED Visit 01/10/22 for worsening SOB. Breathing possibly d/t her dog allergy. Prescribed Prednisone and Keflex. Called patient listed number on demographics, no answer. VM did identify correct patient identity and this music writer left contact number to return call for any questions, issues or concerns with [facility], medications or f/u. S. LISBETH Lopez
== END 2022-01-10 13:04 | disposition home or self-care (01) ==
PROVIDERS: Emergency Provider Emergency Medicine; PCP Internal Medicine; Visit Provider Emergency Medicine
DX: J44.9 Chronic obstructive pulmonary disease, unspecified (principal); E11.22 Type 2 diabetes mellitus with diabetic chronic kidney disease; E66.01 Morbid (severe) obesity due to excess calories; N39.0 Urinary tract infection, site not specified; N18.9 Chronic kidney disease, unspecified; I49.8 Other specified cardiac arrhythmias; E78.5 Hyperlipidemia, unspecified; I25.10 Atherosclerotic heart disease of native coronary artery without angina pectoris; D64.9 Anemia, unspecified; I12.9 Hypertensive chronic kidney disease with stage 1 through stage 4 chronic kidney disease, or unspecified chronic kidney disease; I25.2 Old myocardial infarction; Z68.37 Body mass index [BMI] 37.0-37.9, adult; K21.9 Gastro-esophageal reflux disease without esophagitis; E03.9 Hypothyroidism, unspecified; Z79.899 Other long term (current) drug therapy; Z79.82 Long term (current) use of aspirin; Z79.02 Long term (current) use of antithrombotics/antiplatelets; Z79.890 Hormone replacement therapy; R06.00 Dyspnea, unspecified
CPT/HCPCS: 71045; 80053; 81001; 83880; 84484; 85025; 87428; 93005; 99282

== ENCOUNTER 2022-03-28 05:22 | Emergency (ER) | payer MEDICARE, SELFPAY ==
[2021-03-16 09:07] VITALS: BMI 39.2
[2022-03-28 05:23] VITALS: BP 193/73; PULSE 78; RESP 9; TEMP 35.8; O2SAT 99; BMI 38.8
--- NOTE | 2022-03-28 05:39 | EKG12_ITS ---
Test Reason : DYSRHYTHMIA Blood Pressure : / mmHG Vent. Rate : 064 BPM Atrial Rate : 064 BPM P-R Int : 152 ms QRS Dur : 102 ms QT Int : 444 ms P-R-T Axes : 046 043 098 degrees QTc Int : 458 ms Normal sinus rhythm ST & T wave abnormality, consider lateral ischemia Abnormal ECG Confirmed by CHERI DUQUE, NELA ([id number]), video tape editor NIRAV DICKSON ([id number]) on 03/29/2022 8:25:23 AM Referred By: MORE Confirmed By:NELA ALONZO MD
--- NOTE | 2022-03-28 05:48 | EDS_ITS ---
HPI History of Present Illness Chief Complaint: General Illness Informant: patient Narrative Narrative: Patient presents concerned that she might have COVID or a heart attack. Patient states she has been taking care of her daughter that has COVID for the last week. Patient has been feeling fine. But over the last 3 hours she has noticed that she has a sensation in her chest. She cannot describe this. When pushed I finally get her to describe it as a hollow feeling. She states is not a pain or pressure. She also states her blood pressure was going up and down. It went from 120-180. She states she gets a lot of symptoms with variations in her blood pressure. She can always feel something when her blood pressure changes. She is not having dyspnea nausea vomiting shortness of breath or diaphoresis. She states she has had this before. She has had it with heart attacks and she has had it without heart attacks. She is not having myalgias sore throat headache nausea vomiting or diarrhea. Nothing really makes the symptoms better or worse. She has had heart disease and had multiple stents as well as a multivessel bypass in 2007. She also has diabetes and COPD. She is also on Lasix. She has been taking all of her medicines. She does take aspirin and Plavix. 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 Type 2 diabetes mellitus without complication Vertigo Home Medications metoprolol tartrate 50 mg tablet 50 mg PO BID 12/17/13 [History Last Taken 10/08/20] montelukast 10 mg tablet 10 mg PO DAILY 12/17/13 [History Last Taken 10/08/20] omeprazole 20 mg capsule,delayed release 20 mg PO DAILY 12/17/13 [History Last Taken 10/08/20] aspirin 81 mg tablet,delayed release 81 mg PO QDAY 11/19/17 [History Last Taken 10/08/20] clopidogrel 75 mg tablet 75 mg PO QDAY 12/22/17 [History Last Taken 10/08/20] cetirizine 10 mg tablet (Zyrtec) 10 mg PO QDAY allergies 02/15/20 [History Last Taken 10/08/20] ipratropium bromide 17 mcg/actuation HFA aerosol inhaler 2 puff inhalation 4X/DAY PRN PRN Asthma 02/15/20 [History Last Taken Unknown] pravastatin 80 mg tablet 80 mg PO QHS 02/15/20 [History Last Taken 10/07/20] biotin 5,000 mcg disintegrating tablet 10,000 mcg PO DAILY 02/20/21 [History Last Taken Unknown] glipizide 10 mg tablet 10 mg PO BID 02/20/21 [History Last Taken Unknown] allopurinol 100 mg tablet 100 mg PO DAILY 11/22/21 [History Last Taken Unknown] furosemide 40 mg tablet (Lasix) 40 mg PO .qod 11/22/21 [History Last Taken Unknown] levothyroxine 100 mcg tablet 100 mcg PO DAILY 11/22/21 [History Last Taken Unknown] lisinopril 30 mg tablet 30 mg PO DAILY 11/22/21 [History Last Taken Unknown] sulfamethoxazole 800 mg-trimethoprim 160 mg tablet 1 tab PO DAILY 03/28/22 [History Last Taken Unknown] Allergy/AdvReac Type Severity Reaction Status Date / Time albuterol Allergy Shortness Verified 03/28/22 05:26 of breath Anesthetics - Amide Type - Allergy Other Verified 03/28/22 05:26 Select A [Anesthetics - Amide Type] acetaminophen [From Tylenol] AdvReac Severe Other Verified 03/28/22 05:26 cinnamon AdvReac Unknown Unknown Verified 03/28/22 05:26 Penicillins AdvReac Unknown Unknown Verified 03/28/22 05:26 Family History Mother , age 86, advanced age No problems noted. Father Prostate cancer Surgical History H/O coronary artery bypass surgery (10/11/07) History of cholecystectomy History of coronary artery stent placement (01/26/21) History of hysterectomy Hx of appendectomy Hx of bilateral cataract extraction Social History Smoking Status: Never smoker alcohol intake: never substance use type: does not use caffeine: Yes Type: carbonated beverages what type of physical activity do you participate in: none seatbelt use: always do you feel safe at home: Yes ROS ROS ED Constitutional Constitutional ED: Denies chills or fever(s) Eyes Eyes: Denies change in vision ENT ENT ED: Denies rhinorrhea or sore throat Cardiovascular Cardiovascular: Reports other Details: See history of present illness. ; Denies chest pain, palpitations or racing heartbeat Respiratory/Chest Respiratory/Chest: Denies cough or dyspnea Gastrointestinal Gastrointestinal: Denies abdominal pain, nausea or vomiting Genitourinary Genitourinary ED: Denies hematuria Musculoskeletal Musculoskeletal: Denies neck pain Integumentary Denies Abrasions or rash Neurologic Neurologic: Denies headache(s), paresthesias or weakness Endocrine Endocrinology: Denies polydipsia or polyuria Hematologic/Lymphatic Hematologic/Lymphatic: Reports easy bleeding and easy bruising; Denies anemia Allergic/Immunologic Allergic/Immunologic ED: Denies urticaria EXAM Physical Exam Const Vital Signs: 03/28/22 05:23 03/28/22 05:26 03/28/22 06:11 Temperature 96.5 F L Temperature Source Temporal Pulse Rate 78 Respiratory Rate 9 L Respiratory Effort Normal Respiratory Pattern Normal Blood Pressure 193/73 H Blood Pressure Mean 113 Pulse Ox 99 Oxygen Delivery Method Room Air Room Air Positive well nourished and well developed Constitutional Narrative: Patient sitting comfortably on the bed. She does not look ill. She does not look dyspneic. She carries on a normal conversation. General Appearance ED: well developed and NAD HEENT Reports moist mucous membranes HEENT Narrative: No trauma. No pharyngeal erythema. No sinus tenderness. Eyes EOMs intact bilaterally Neck no JVD Chest Wall inspection of chest normal and palpation of chest normal Chest Narrative: No chest tenderness. No subcu air. Resp normal respiratory effort and clear to auscultation bilaterally Resp Narrative: Her lungs sound clear. No pain with deep breath. I do not hear any wheezes rhonchi or rales. Cardio regular rate, regular rhythm and no murmurs GI normal to inspection, nondistended, normoactive bowel sounds and non-tender Palpation: soft Back/Spine no CVA tenderness Extremity Extremity Narrative: Patient does have some bilateral lower leg ankle area edema but she states that is chronic and unchanged for her. There is no asymmetry. Neuro Sensorium / Orientation: alert Skin no rashes or lesions noted MDM MDM MDM Narrative Medical decision making narrative: Patient's symptoms are not typical of heart disease. She has a hollow feeling i n her chest but she states it is also a hollow feeling everywhere. She has gotten up and walk to the bathroom without any change in symptoms. Her EKG shows no interval change. Her first troponin is at baseline. However, since she has a history of heart disease we will do a repeat troponin. But I think she is okay to go home if this is not rising. She thinks all of her symptoms were due to changes in her blood pressure. I explained that although her blood pressure reading was elevated this does not require acute treatment. Also, her chest x-ray showed no acute process. Lab Data Labs: Laboratory Results - last 24 hr 03/28/22 03/28/22 05:32 05:32 WBC 12.2 H RBC 3.58 L Hgb 11.0 L Hct 34.2 L MCV 95.5 MCH 30.7 MCHC 32.2 RDW Std Deviation 47.8 H RDW Coeff of Kamar 13.6 Plt Count 251 MPV 10.6 Immature Gran % (Auto) 0.500 Neut % (Auto) 62.7 Lymph % (Auto) 26.1 [place] % (Auto) 5.8 Eos % (Auto) 4.3 Baso % (Auto) 0.6 Absolute Neuts (auto) 7.6 Absolute Lymphs (auto) 3.17 Nucleated RBC % 0 Sodium 135 L Potassium 4.3 Chloride 104 Carbon Dioxide 25.0 Anion Gap 6 BUN 32 H Creatinine 2.43 H Estim Creat Clear Calc 14.40 Est GFR (MDRD) Af Amer 25 L Est GFR (MDRD) Non-Af 21 L BUN/Creatinine Ratio 13.2 Glucose 177 H Calcium 8.8 Troponin I High Sens 17 Radiography Diagnostic Testing: Clinical Impression(s) from Imaging Studies Chest X-Ray 03/28/22 05:57 IMPRESSION: No significant interval change or acute process. Electronically Signed: Luis Tucker MD at 6:21 EDT , EKG Initial EKG: Comments: EKG done for chest symptoms and read by me shows a normal sinus rhythm with overall rate of 64. No ectopy. No sign of acute ST elevation or depression. [place] interval, QRS duration and QTc are normal. Discharge Plan Triage Chief Complaint: General Illness ED Provider: Ayan Ji Dx/Rx/DC Orders Clinical Impression: Blood pressure alteration, Abnormal sensation of thorax Instructions: ED Hypertension, Established Prescriptions: No Action aspirin 81 mg tablet,delayed release (DR/EC) 81 mg PO QDAY clopidogrel 75 mg tablet 75 mg PO QDAY cetirizine [Zyrtec] 10 mg tablet 10 mg PO QDAY pravastatin 80 mg tablet 80 mg PO QHS glipizide 10 mg tablet 10 mg PO BID biotin 5,000 mcg tablet,disintegrating 10,000 mcg PO DAILY lisinopril 30 mg tablet 30 mg PO DAILY levothyroxine 100 mcg tablet 100 mcg PO DAILY Label Comments: TAKE 1 TABLET BY MOUTH ONCE DAILY furosemide [Lasix] 40 mg tablet 40 mg PO .qod allopurinol 100 mg tablet 100 mg PO DAILY Label Comments: TAKE 1 TABLET BY MOUTH ONCE DAILY metoprolol tartrate 50 MG tablet 50 mg PO BID omeprazole 20 MG capsule 20 mg PO DAILY montelukast 10 MG tablet 10 mg PO DAILY ipratropium bromide 17 mcg/actuation HFA aerosol inhaler 2 puff INHALATION 4X/DAY PRN PRN (Reason: Asthma) sulfamethoxazole-trimethoprim 800-160 mg tablet 1 tab PO DAILY Label Comments: TAKE 1 TABLET BY MOUTH TWICE DAILY FOR 10 DAYS. MAY STOP AFTER 7 DAYS IF SYMPTOMS HAVE BEEN GONE FOR 48 HOURS Primary Care Provider: Tabatha Diaz Referrals: Tabatha Diaz MD [Primary Care Provider] - 3-5 Days Lasha Win MD [STAFF PHYSICIAN] - As soon as possible (Contact for follow up)
[2022-03-28 05:49] LABS: Absolute Lymphocyte Count 3.17 X10^3/uL (0.83-4.51); Absolute Neutrophil Count 7.6 X10^3/uL (2.0-7.7); Basophil# 0.07 X10^3/uL; Basophil% 0.6 % (0-1); Eosinophil# 0.52 X10^3/uL; Eosinophils% 4.3 % (0-5); Hematocrit 34.2 % (37-47); Lymphocyte # 3.17 X10^3/ul (0.83-4.51); Lymphocyte % 26.1 % (19-41); Mean Corp Hgb Conc 32.2 g/dL (32-36); Mean Corpuscular Hgb 30.7 pg (27.0-32.0); Mean Corpuscular Volume 95.5 fL (81-99); Mean Platelet Vol. 10.6 fl (6.2-12.0); Monocyte% 5.8 % (0-10); NRBC Flagged by Analyzer 0 % (0-5); Neutrophil # 7.63 X10^3/uL (2.7-7.7); Neutrophil % 62.7 % (47-70); Platelet Count 251 K/mm3 (150-450); RBC Distribution Width CV 13.6 % (11.6-14.6); RBC Distribution Width SD 47.8 fl (35.1-43.9); Red Blood Count 3.58 M/mm3 (4.2-5.4); White Blood Count 12.2 K/mm3 (4.4-11.0)
--- NOTE | 2022-03-28 05:57 | RAD_ITS ---
STUDY: X-RAY CHEST REASON FOR EXAM: Female, 77 years old. chest pain TECHNIQUE: Single AP portable view of the chest. 5:54 AM. COMPARISON: Previous chest radiographs of 01/10/2022, 10/09/2021 and 01/17/2021. FINDINGS: Findings of previous median sternotomy and CABG are again noted. Heart size remains moderately enlarged with normal pulmonary vasculature. Thoracic aorta is mildly elongated. No acute pulmonary infiltrates or pleural effusions are identified. No acute osseous abnormality. Chronic thoracic degenerative spurring. Vascular calcification noted within the left neck. There is no demonstrated abnormality of the visualized soft tissue structures of the upper abdomen. RAD/Chest 1 View (Portable) IMPRESSION: No significant interval change or acute process. Electronically Signed: Luis Tucker MD at 6:21 EDT ,
[2022-03-28 06:09] LABS: Anion Gap 6 (5-15); BUN 32 mg/dL (7-18); BUN/Creat Ratio 13.2 RATIO (10-20); Calcium,Total 8.8 mg/dL (8.5-10.1); Chloride 104 mmol/L (98-107); Creatinine, Serum 2.43 mg/dL (0.55-1.02); EST Glomerular Filtration Rate 21 mL/min (>60); Est Glom Filt Rate - Afr Amer 25 mL/min (>60); Glucose 177 mg/dL (74-106); Potassium 4.3 mmol/L (3.5-5.1); Sodium Level 135 mmol/L (136-145); Troponin-I HS (w/2H Reflex) 17 pg/mL (3.0-54.0)
[2022-03-28 07:47] LABS: Reflex Troponin-HS? (from REC) Y
[2022-03-28 08:22] LABS: Troponin-I HS 20 pg/mL (3.0-54.0)
== END 2022-03-28 08:58 | disposition home or self-care (01) ==
PROVIDERS: Emergency Provider Emergency Medicine; PCP Internal Medicine; Visit Provider Emergency Medicine
DX: I12.9 Hypertensive chronic kidney disease with stage 1 through stage 4 chronic kidney disease, or unspecified chronic kidney disease (principal); J44.9 Chronic obstructive pulmonary disease, unspecified; E11.22 Type 2 diabetes mellitus with diabetic chronic kidney disease; E78.5 Hyperlipidemia, unspecified; I25.10 Atherosclerotic heart disease of native coronary artery without angina pectoris; N18.9 Chronic kidney disease, unspecified; E03.9 Hypothyroidism, unspecified; Z79.82 Long term (current) use of aspirin; Z20.822 Contact with and (suspected) exposure to COVID-19
CPT/HCPCS: 71045; 80048; 84484; 85025; 87811; 93005; 99284; A4216

== ENCOUNTER 2022-03-30 14:03 | Emergency (ER) | payer MEDICARE, SELFPAY ==
[2021-03-16 09:07] VITALS: BMI 39.2
[2022-03-30] VITALS (8 sets, daily range): BP systolic 154–180; BP diastolic 56–63; PULSE 58–71; RESP 13–20; TEMP 36.7; O2SAT 98–100; BMI 37.8
--- NOTE | 2022-03-30 14:10 | EKG12_ITS ---
Test Reason : sob Blood Pressure : / mmHG Vent. Rate : 074 BPM Atrial Rate : 074 BPM P-R Int : 152 ms QRS Dur : 100 ms QT Int : 400 ms P-R-T Axes : 060 054 093 degrees QTc Int : 444 ms Sinus rhythm with Premature atrial complexes ST & T wave abnormality, consider lateral ischemia Abnormal ECG Confirmed by ARNALDO DUQUE, DARLENE ([id number]), online editor SUKHDEEP CONTRERAS ([id number]) on 04/02/2022 9:26:57 AM Referred By: Terrell Confirmed By:DARLENE MCINTOSH MD
--- NOTE | 2022-03-30 14:21 | EDS_ITS ---
HPI History of Present Illness Chief Complaint: Shortness of Breath Detail of Chief Complaint: chest discomfort Informant: patient Onset/Context/Timing Onset: Hours (5-6) Activity at onset: sudden and onset (after I got up this AM) Timing: Intermittent (one episode) and Lasts (several hours) Quality: Positive for Pain (discomfort) Location: Substernal (w/o radiation) Current Severity: Gone Maximum Severity: Severe Worsened By: Nothing; Not Worsened By Breathing Relieved By: NSAIDS (went away gradually after she took 4 baby ASA) and - (Tried albuterol aerosol/MDI for dyspnea, no help) Associated Symptoms: Positive for Dyspnea; Negative for Nausea, Vomiting, Diaphoresis, Cough, Lightheadedness or Palpitations Narrative Narrative: Patient states she woke up this morning having some shortness of breath, she then started getting chest discomfort it was nonpleuritic, similar to when she has had prior MIs. She states she has had 13 MIs and had several stents, the last of which was placed just over a year ago. She had a CABG in 2007. She states she took baby aspirin, after couple hours of chest discomfort went away, she was still feeling a little short of breath especially when she would walk, but that is better now. She does feels malaised. She states lately her blood pressure has been high and then will come back down, this seems to have been the case since her lisinopril was increased to 30 mg daily within the past couple weeks. 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 Type 2 diabetes mellitus without complication Vertigo Home Medications metoprolol tartrate 50 mg tablet 50 mg PO BID 12/17/13 [History Last Taken 10/08/20] montelukast 10 mg tablet 10 mg PO DAILY 12/17/13 [History Last Taken 10/08/20] omeprazole 20 mg capsule,delayed release 20 mg PO DAILY 12/17/13 [History Last Taken 10/08/20] aspirin 81 mg tablet,delayed release 81 mg PO QDAY 11/19/17 [History Last Taken 10/08/20] clopidogrel 75 mg tablet 75 mg PO QDAY 12/22/17 [History Last Taken 10/08/20] cetirizine 10 mg tablet (Zyrtec) 10 mg PO QDAY allergies 02/15/20 [History Last Taken 10/08/20] ipratropium bromide 17 mcg/actuation HFA aerosol inhaler 2 puff inhalation 4X/DAY PRN PRN Asthma 02/15/20 [History Last Taken Unknown] pravastatin 80 mg tablet 80 mg PO QHS 02/15/20 [History Last Taken 10/07/20] biotin 5,000 mcg disintegrating tablet 10,000 mcg PO DAILY 02/20/21 [History Last Taken Unknown] glipizide 10 mg tablet 10 mg PO BID 02/20/21 [History Last Taken Unknown] allopurinol 100 mg tablet 100 mg PO DAILY 11/22/21 [History Last Taken Unknown] furosemide 40 mg tablet (Lasix) 40 mg PO .qod 11/22/21 [History Last Taken Unknown] levothyroxine 100 mcg tablet 100 mcg PO DAILY 11/22/21 [History Last Taken Unknown] sulfamethoxazole 800 mg-trimethoprim 160 mg tablet 1 tab PO DAILY 03/28/22 [His tory Last Taken Unknown] amlodipine 10 mg tablet 10 mg PO DAILY #30 tabs 03/30/22 [Rx Last Taken Unknown] Allergy/AdvReac Type Severity Reaction Status Date / Time albuterol Allergy Shortness Verified 03/30/22 14:08 of breath Anesthetics - Amide Type - Allergy Other Verified 03/30/22 14:08 Select A [Anesthetics - Amide Type] acetaminophen [From Tylenol] AdvReac Severe Other Verified 03/30/22 14:08 cinnamon AdvReac Unknown Unknown Verified 03/30/22 14:08 Penicillins AdvReac Unknown Unknown Verified 03/30/22 14:08 Family History Mother , age 86, advanced age No problems noted. Father Prostate cancer Surgical History H/O coronary artery bypass surgery (10/11/07) History of cholecystectomy History of coronary artery stent placement (01/26/21) History of hysterectomy Hx of appendectomy Hx of bilateral cataract extraction Social History Smoking Status: Never smoker alcohol intake: never substance use type: does not use caffeine: Yes Type: carbonated beverages what type of physical activity do you participate in: none seatbelt use: always do you feel safe at home: Yes ROS ROS ED Constitutional Constitutional ED: Denies chills or fever(s) Eyes Eyes: Denies change in vision or diplopia ENT ENT ED: Denies rhinorrhea or sore throat Cardiovascular Cardiovascular: Reports chest pain; Denies palpitations Respiratory/Chest Respiratory/Chest: Reports dyspnea and dyspnea on exertion; Denies cough Gastrointestinal Gastrointestinal: Denies abdominal pain, diarrhea, nausea or vomiting Genitourinary Genitourinary ED: Denies dysuria or hematuria Musculoskeletal Musculoskeletal: Denies back pain or neck pain Integumentary Denies abscess or rash Neurologic Neurologic: Denies headache(s), paresthesias or weakness Psychiatric Psychiatric: Denies anxiety or suicidal thoughts EXAM Physical Exam Const Vital Signs: 03/30/22 14:04 03/30/22 14:27 03/30/22 14:27 Temperature 98.0 F Temperature Source Temporal Pulse Rate 71 68 Respiratory Rate 16 13 Respiratory Effort Respiratory Depth Respiratory Pattern Blood Pressure 165/59 H 180/56 H Blood Pressure Mean 94 97 Pulse Ox 100 100 100 Oxygen Delivery Method Room Air Room Air Room Air 03/30/22 14:28 03/30/22 14:29 03/30/22 14:30 Temperature Temperature Source Pulse Rate 64 Respiratory Rate 14 Respiratory Effort Short of Breath Respiratory Depth Normal Respiratory Pattern Normal Blood Pressure 180/56 H Blood Pressure Mean 97 Pulse Ox 100 Oxygen Delivery Method Room Air Room Air Room Air 03/30/22 15:21 03/30/22 16:37 03/30/22 17:04 Temperature Temperature Source Pulse Rate 60 58 L 58 L Respiratory Rate 20 H 16 16 Respiratory Effort Respiratory Depth Respiratory Pattern Blood Pressure 169/62 H 154/57 H 163/58 H Blood Pressure Mean 97 89 93 Pulse Ox 98 99 99 Oxygen Delivery Method Room Air Room Air Room Air 03/30/22 18:06 Temperature Temperature Source Pulse Rate 62 Respiratory Rate 14 Respiratory Effort Respiratory Depth Respiratory Pattern Blood Pressure 156/63 H Blood Pressure Mean 94 Pulse Ox 100 Oxygen Delivery Method Room Air Positive well nourished and well developed General Appearance ED: well developed and NAD HEENT Reports moist mucous membranes normocephalic and atraumatic Eyes PERRL and EOMs intact bilaterally Neck full ROM and supple Resp normal respiratory effort and clear to auscultation bilaterally Cardio regular rate, regular rhythm and no murmurs Rate: Negative for tachycardic GI non-tender and non-distended Auscultation: normoactive bowel sounds Palpation: soft Back/Spine no CVA tenderness General Back: other FROM Extremity normal to inspection General Extremety ED: Yes edema; Negative for pulses abnormal or tenderness General Extremity: edema bilateral lower extremity Details: mild (Both ankles symmetric with changes of chronic stasis dermatitis mild); Negative for pulses abnormal Neuro oriented x3, CN's II-XII intact bilaterally and no sensory deficits noted Sensorium / Orientation: awake and alert Motor Exam: strength 5/5 throughout Skin no rashes or lesions noted and no wounds Heart Score History: Moderately Suspicious ECG: Nonspecific Repolarization Age: >/= 65 years Risk Factors: >/= 3 Risk Factors or History of CAD Troponin: </= Normal Limit Score: 6 MDM MDM MDM Narrative Medical decision making narrative: Other than worsening renal function with creatinine of 3.04, her laboratory work-up is unremarkable. 1 view chest x-ray my interpretation negative for anything acute. Her EKG shows some nonspecific ST-T wave findings but these are new compared with her prior. No sign of an acute injury. She has been chest pain-free throughout her stay in the ED. her repeat troponin came back negative as well, with no elevation compared with the prior, both of the measurements at 16. Discussed with cardiology Dr. Ralph. He recommends discharging patient home with instructions to rest and follow-up for likely a nuclear stress test, discontinuing the lisinopril due to the MONI, and replacing it with amlodipine 10 mg daily which I give her the first dose of tonight since her blood pressure is still in the 150-160 range. Given her creatinine elevation, she would not be amenable to heart catheterization right now due to the dye load. Discussed this with her she is comfortable with that plan. Lab Data Attestation: I reviewed the patient's lab results. Labs: Laboratory Results - last 24 hr 03/30/22 03/30/22 03/30/22 14:20 14:20 16:50 WBC 10.0 RBC 3.46 L Hgb 10.9 L Hct 33.6 L MCV 97.1 MCH 31.5 MCHC 32.4 RDW Std Deviation 49.0 H RDW Coeff of Kamar 13.5 Plt Count 252 MPV 10.5 Immature Gran % (Auto) 0.300 Neut % (Auto) 56.1 Lymph % (Auto) 33.4 [place] % (Auto) 5.0 Eos % (Auto) 4.6 Baso % (Auto) 0.6 Absolute Neuts (auto) 5.6 Absolute Lymphs (auto) 3.35 Nucleated RBC % 0 Sodium 136 Potassium 4.6 Chloride 107 Carbon Dioxide 26.0 Anion Gap 3 L BUN 37 H Creatinine 3.04 H Estim Creat Clear Calc 11.51 Est GFR (MDRD) Af Amer 19 L Est GFR (MDRD) Non-Af 16 L BUN/Creatinine Ratio 12.2 Glucose 124 H Calcium 8.7 Troponin I High Sens 16 16 Radiography Diagnostic Testing: Clinical Impression(s) from Imaging Studies Chest X-Ray 03/30/22 14:33 IMPRESSION: There are no acute findings. Electronically Signed: Freddie Sheehan MD at 15:00 EDT Reading Location ID and State: [facility] / [place] , Service support , Rhythm Strip Rhythm Strip: Sinus Rhythm Rate: 75 Ectopy: None EKG Initial EKG: Attestation: I personally reviewed and interpreted this EKG as follows: Interpretation: Sinus Rhythm, No Acute Injury Pattern and S-T Depression (1 mm lead 1, no depression or elevation in aVL) Prior EKG tracings: available for review Prior: Changed (Mild ST depression in the lateral leads new) Discharge Plan Triage Chief Complaint: Shortness of Breath ED Provider: Diogo Lee Dx/Rx/DC Orders Clinical Impression: Chest pain, MONI (acute kidney injury) Instructions: ED Chest Pain, Uncertain Cause Prescriptions: New amlodipine 10 mg tablet 10 mg PO DAILY Qty: 30 0RF Continued aspirin 81 mg tablet,delayed release (DR/EC) 81 mg PO QDAY clopidogrel 75 mg tablet 75 mg PO QDAY cetirizine [Zyrtec] 10 mg tablet 10 mg PO QDAY pravastatin 80 mg tablet 80 mg PO QHS glipizide 10 mg tablet 10 mg PO BID biotin 5,000 mcg tablet,disintegrating 10,000 mcg PO DAILY levothyroxine 100 mcg tablet 100 mcg PO DAILY Label Comments: TAKE 1 TABLET BY MOUTH ONCE DAILY furosemide [Lasix] 40 mg tablet 40 mg PO .qod allopurinol 100 mg tablet 100 mg PO DAILY Label Comments: TAKE 1 TABLET BY MOUTH ONCE DAILY metoprolol tartrate 50 MG tablet 50 mg PO BID omeprazole 20 MG capsule 20 mg PO DAILY montelukast 10 MG tablet 10 mg PO DAILY ipratropium bromide 17 mcg/actuation HFA aerosol inhaler 2 puff INHALATION 4X/DAY PRN PRN (Reason: Asthma) sulfamethoxazole-trimethoprim 800-160 mg tablet 1 tab PO DAILY Label Comments: TAKE 1 TABLET BY MOUTH TWICE DAILY FOR 10 DAYS. MAY STOP AFTER 7 DAYS IF SYMPTOMS HAVE BEEN GONE FOR 48 HOURS Discontinued lisinopril 30 mg tablet 30 mg PO DAILY Primary Care Provider: Tabatha Diaz Referrals: Tabatha Diaz MD [Primary Care Provider] - Lasha Win MD [STAFF PHYSICIAN] - (Call for appointment to be seen as soon as able) Disposition Disposition: Home, Self Care
[2022-03-30 14:32] LABS: Absolute Lymphocyte Count 3.35 X10^3/uL (0.83-4.51); Absolute Neutrophil Count 5.6 X10^3/uL (2.0-7.7); Basophil# 0.06 X10^3/uL; Basophil% 0.6 % (0-1); Eosinophil# 0.46 X10^3/uL; Eosinophils% 4.6 % (0-5); Hematocrit 33.6 % (37-47); Hemoglobin 10.9 g/dL (12.0-15.0); Lymphocyte # 3.35 X10^3/ul (0.83-4.51); Lymphocyte % 33.4 % (19-41); Mean Corp Hgb Conc 32.4 g/dL (32-36); Mean Corpuscular Hgb 31.5 pg (27.0-32.0); Mean Corpuscular Volume 97.1 fL (81-99); Mean Platelet Vol. 10.5 fl (6.2-12.0); NRBC Flagged by Analyzer 0 % (0-5); Neutrophil # 5.63 X10^3/uL (2.7-7.7); Neutrophil % 56.1 % (47-70); Platelet Count 252 K/mm3 (150-450); RBC Distribution Width CV 13.5 % (11.6-14.6); Red Blood Count 3.46 M/mm3 (4.2-5.4)
--- NOTE | 2022-03-30 14:33 | RAD_ITS ---
STUDY: X-RAY CHEST REASON FOR EXAM: Female, 77 years old. chest pain Technologist Notes PT. REPORTS SHORTNESS OF BREATH SINCE 0800. ALKED IN AND SAID I''M PRETTY SURE I HAD A MILD HEART ATTACK. DENIES HAVING ANY CHEST PAIN, BUT SAYS WAS HAVING FUNNY FEELING IN CHEST. NOT CURRENTLY HAVING ANY CHEST PAIN. TOOK 4 BABY ASPRIN CLAM GROWER. TECHNIQUE: XR Chest 1 View COMPARISON: Two days ago. FINDINGS: Multiple median sternotomy wires are noted consistent for cardiac surgery. Normal size heart. Normal mediastinum and teri. Normal visualized pulmonary arteries. There is atherosclerotic calcification of the aortic arch with tortuosity. There are diffuse degenerative changes of the visualized thoracic spine. There is degenerative osteoarthritis of the bilateral shoulders. There is no demonstrated abnormality of the visualized soft tissue structures of the upper abdomen. RAD/Chest 1 View (Portable) IMPRESSION: There are no acute findings. Electronically Signed: Freddie Sheehan MD at 15:00 EDT ,
[2022-03-30 14:49] LABS: Anion Gap 3 (5-15); BUN 37 mg/dL (7-18); BUN/Creat Ratio 12.2 RATIO (10-20); Calcium,Total 8.7 mg/dL (8.5-10.1); Chloride 107 mmol/L (98-107); Creatinine, Serum 3.04 mg/dL (0.55-1.02); EST Glomerular Filtration Rate 16 mL/min (>60); Est Glom Filt Rate - Afr Amer 19 mL/min (>60); Estimated Creatinine Clearance 11.51 ml/min; Glucose 124 mg/dL (74-106); Potassium 4.6 mmol/L (3.5-5.1); Sodium Level 136 mmol/L (136-145); Troponin-I HS (w/2H Reflex) 16 pg/mL (3.0-54.0)
[2022-03-30 16:27] LABS: Reflex Troponin-HS? (from REC) Y
[2022-03-30 17:40] LABS: Troponin-I HS 16 pg/mL (3.0-54.0)
[2022-03-30] MEDS: amLODIPine 10 MG Tablet PO (18:41)
== END 2022-03-30 18:53 | disposition home or self-care (01) ==
PROVIDERS: Emergency Provider Emergency Medicine; PCP Internal Medicine; Visit Provider Emergency Medicine
DX: S37.009A Unspecified injury of unspecified kidney, initial encounter (principal); J44.9 Chronic obstructive pulmonary disease, unspecified; E11.22 Type 2 diabetes mellitus with diabetic chronic kidney disease; R07.9 Chest pain, unspecified; I25.10 Atherosclerotic heart disease of native coronary artery without angina pectoris; E78.5 Hyperlipidemia, unspecified; I12.9 Hypertensive chronic kidney disease with stage 1 through stage 4 chronic kidney disease, or unspecified chronic kidney disease; N18.9 Chronic kidney disease, unspecified; E03.9 Hypothyroidism, unspecified; Z79.82 Long term (current) use of aspirin; Z79.899 Other long term (current) drug therapy
CPT/HCPCS: 71045; 80048; 84484; 85025; 93005; 99285; A4216

== ENCOUNTER → 2022-08-28 | Outpatient (CLI) | payer MEDICARE, SELFPAY ==
[2021-03-16 09:07] VITALS: BMI 39.2
[2022-08-28 15:21] LABS: Absolute Neutrophil Count 7.7 X10^3/uL (2.0-7.7); Basophil# 0.05 X10^3/uL; Basophil% 0.4 % (0-1); Eosinophil# 0.34 X10^3/uL; Eosinophils% 2.9 % (0-5); Hematocrit 33.8 % (37-47); Hemoglobin 10.3 g/dL (12.0-15.0); Lymphocyte % 25.6 % (19-41); Mean Corp Hgb Conc 30.5 g/dL (32-36); Mean Corpuscular Hgb 28.9 pg (27.0-32.0); Mean Corpuscular Volume 94.9 fL (81-99); Mean Platelet Vol. 10.4 fl (6.2-12.0); Monocyte# 0.63 X10^3/uL; Monocyte% 5.4 % (0-10); NRBC Flagged by Analyzer 0 % (0-5); Neutrophil # 7.67 X10^3/uL (2.7-7.7); Neutrophil % 65.3 % (47-70); Platelet Count 325 K/mm3 (150-450); RBC Distribution Width CV 13.3 % (11.6-14.6); RBC Distribution Width SD 45.7 fl (35.1-43.9); Red Blood Count 3.56 M/mm3 (4.2-5.4); White Blood Count 11.7 K/mm3 (4.4-11.0)
[2022-08-28 15:52] LABS: Anion Gap 4 (5-15); BUN 24 mg/dL (7-18); Calcium,Total 8.6 mg/dL (8.5-10.1); Chloride 106 mmol/L (98-107); Creatinine, Serum 1.85 mg/dL (0.55-1.02); EST Glomerular Filtration Rate 28 mL/min (>60); Est Glom Filt Rate - Afr Amer 34 mL/min (>60); Glucose 121 mg/dL (74-106); Potassium 3.8 mmol/L (3.5-5.1); Sodium Level 138 mmol/L (136-145)
== END | disposition home or self-care (01) ==
LOC: LAB 14:20
PROVIDERS: PCP Internal Medicine; Visit Provider Physician Assistant Medical
DX: I10 Essential (primary) hypertension (principal); E78.5 Hyperlipidemia, unspecified; I25.810 Atherosclerosis of coronary artery bypass graft(s) without angina pectoris; Z95.5 Presence of coronary angioplasty implant and graft; Z95.1 Presence of aortocoronary bypass graft
CPT/HCPCS: 36415; 80048; 85025

== ENCOUNTER 2022-09-18 11:53 | Emergency (ER) | payer MEDICARE, SELFPAY ==
[2021-03-16 09:07] VITALS: BMI 39.2
[2022-09-18 11:54] VITALS: BP 160/60; PULSE 68; RESP 18; TEMP 35.9; O2SAT 99; BMI 36.4
[2022-09-18 12:36] LABS: Mucous, Urine 0 SEEN /hpf (<or=2+)
[2022-09-18 12:38] LABS: Color, Urine Straw (Yellow); Glucose, Dipstick Normal (Normal); Ketone-Dipstick Negative (Negative); Leukocyte Esterase-Dipstick 500 /ul (Negative); Nitrite-Dipstick Negative (Negative); Occult Blood-Urine 25 /ul (Negative); Protein-Dipstick 30 mg/dl (Negative); Urine Bilirubin Dipstick Negative (Negative); Urine Clarity Cloudy (Clear); Urine Urobilinogen Normal (Normal)
[2022-09-18 12:40] LABS: Absolute Lymphocyte Count 2.26 X10^3/uL (0.83-4.51); Absolute Neutrophil Count 10.2 X10^3/uL (2.0-7.7); Basophil# 0.06 X10^3/uL; Basophil% 0.4 % (0-1); Eosinophils% 2.2 % (0-5); Hematocrit 28.8 % (37-47); Lymphocyte # 2.26 X10^3/ul (0.83-4.51); Lymphocyte % 16.8 % (19-41); Mean Corp Hgb Conc 31.3 g/dL (32-36); Mean Corpuscular Hgb 29.3 pg (27.0-32.0); Mean Corpuscular Volume 93.8 fL (81-99); Mean Platelet Vol. 10.1 fl (6.2-12.0); Monocyte# 0.55 X10^3/uL; Monocyte% 4.1 % (0-10); NRBC Flagged by Analyzer 0 % (0-5); Neutrophil # 10.23 X10^3/uL (2.7-7.7); Neutrophil % 76.1 % (47-70); Platelet Count 311 K/mm3 (150-450); RBC Distribution Width CV 14.6 % (11.6-14.6); RBC Distribution Width SD 49.6 fl (35.1-43.9); Red Blood Count 3.07 M/mm3 (4.2-5.4); White Blood Count 13.5 K/mm3 (4.4-11.0)
--- NOTE | 2022-09-18 12:40 | EX.ED.DYSGE1 ---
HPI History of Present Illness Chief Complaint: General Illness Informant: patient Onset/Context/Timing Onset: Days Context: Gradual Onset Timing: Continuous Quality: First, dry mouth, not feeling well, recent Dx UTI Location: Generalized Current Severity: Mild Maximum Severity: Moderate Worsened by: Nothing Relieved by: Nothing Associated Symptoms Associated Symptoms: Vague generalized symptoms, per HPI narrative Narrative Narrative: Patient is a 77-year-old woman with history of of hypertension, type 2 diabetes, coronary disease on antithrombotic who presents with generalized weakness and polyuria and polydipsia. She states she is on Bactrim for recent diagnosis of UTI. Diagnosis was made 3 days ago. She denies dysuria or hematuria. She denies low back or flank pain. She does endorse nausea without vomiting or diarrhea. She denies chest discomfort, shortness of breath, new orthopnea. She does endorse swelling of her lower extremities which is chronic. She denies history of VTE. She denies black or maroon-colored stool. She denies chest pain, shortness of breath or productive cough. She denies headache, visual, ocular auditory symptoms. She denies neck pain or neck stiffness. Prior similar symptoms: No Recent Illness/Hospitalization: Yes [facility] Medical History Arm paresthesia, right Asthma Atherosclerosis of coronary artery bypass graft without angina pectoris Atherosclerotic heart disease of [place] coronary artery without angina pectoris Cardiomyopathy CKD (chronic kidney disease) COPD (chronic obstructive pulmonary disease) COVID-19 (~04/2022) Essential hypertension GERD (gastroesophageal reflux disease) History of non-ST elevation myocardial infarction (NSTEMI) (01/26/21) Hyperlipidemia Hypothyroidism Insect bite Morbid obesity NSTEMI (non-ST elevated myocardial infarction) Obesity 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 Type 2 diabetes mellitus without complication Vertigo Home Medications metoprolol tartrate 50 mg tablet 50 mg PO BID 12/17/13 [History Last Taken 10/08/20] montelukast 10 mg tablet 10 mg PO DAILY 12/17/13 [History Last Taken 10/08/20] omeprazole 20 mg capsule,delayed release 20 mg PO DAILY 12/17/13 [History Last Taken 10/08/20] aspirin 81 mg tablet,delayed release 81 mg PO QDAY 11/19/17 [History Last Taken 10/08/20] clopidogrel 75 mg tablet 75 mg PO QDAY 12/22/17 [History Last Taken 10/08/20] cetirizine 10 mg tablet (Zyrtec) 10 mg PO QDAY allergies 02/15/20 [History Last Taken 10/08/20] ipratropium bromide 17 mcg/actuation HFA aerosol inhaler 2 puff inhalation 4X/DAY PRN PRN Asthma 02/15/20 [History Last Taken Unknown] pravastatin 80 mg tablet 80 mg PO QHS 02/15/20 [History Last Taken 10/07/20] allopurinol 100 mg tablet 100 mg PO DAILY 11/22/21 [History Last Taken Unknown] levothyroxine 100 mcg tablet 100 mcg PO DAILY 11/22/21 [History Last Taken Unknown] glipizide 10 mg tablet 5 mg PO BID 05/24/22 [History Last Taken Unknown] folic acid 1 mg tablet 1 mg PO DAILY 08/28/22 [History Last Taken Unknown] spironolactone 25 mg tablet 25 mg PO DAILY 08/28/22 [History Last Taken Unknown] ciprofloxacin HCl 250 mg tablet (Cipro) 250 mg PO Q12H #10 tabs 09/18/22 [Rx Last Taken Unknown] Allergy/AdvReac Type Severity Reaction Status Date / Time albuterol Allergy Shortness Verified 09/18/22 11:54 of breath Anesthetics - Amide Type - Allergy Other Verified 09/18/22 11:54 Select A [Anesthetics - Amide Type] acetaminophen [From Tylenol] AdvReac Severe Other Verified 09/18/22 11:54 cinnamon AdvReac Unknown Unknown Verified 09/18/22 11:54 Penicillins AdvReac Unknown Unknown Verified 09/18/22 11:54 Family History Mother , age 86, advanced age No problems noted. Father Prostate cancer Surgical History H/O coronary artery bypass surgery (10/11/07) History of cholecystectomy History of coronary artery stent placement (01/26/21) History of hysterectomy Hx of appendectomy Hx of bilateral cataract extraction Social History Smoking Status: Never smoker alcohol intake: never substance use type: does not use caffeine: Yes Type: carbonated beverages what type of physical activity do you participate in: none seatbelt use: always do you feel safe at home: Yes ROS ROS ED Constitutional Constitutional ED: Denies chills, fever(s), subjective, sweats or weight loss Eyes Eyes: Denies blurry vision, change in vision or diplopia ENT ENT ED: Denies ear pain, rhinorrhea or sore throat Cardiovascular Cardiovascular: Denies chest pain, orthopnea, palpitations, paroxysmal nocturnal dyspnea or racing heartbeat Respiratory/Chest Respiratory/Chest: Denies cough, dyspnea, dyspnea on exertion, orthopnea, paroxysmal nocturnal dyspnea or sputum Gastrointestinal Gastrointestinal: Reports nausea; Denies abdominal pain, constipation, diarrhea, melena or vomiting Genitourinary Genitourinary ED: Reports urinary frequency; Denies dysuria or hematuria Musculoskeletal Musculoskeletal: Denies arthralgias, back pain, myalgias or neck pain Integumentary Denies rash Neurologic Neurologic: Reports paresthesias and weakness Endocrine Endocrinology: Reports polydipsia and polyuria; Denies cold intolerance or heat intolerance Hematologic/Lymphatic Hematologic/Lymphatic: Reports anemia Allergic/Immunologic Allergic/Immunologic ED: Denies mouth swelling, tongue swelling or urticaria EXAM Physical Exam Const Vital Signs: 09/18/22 11:54 09/18/22 12:16 09/18/22 14:35 Temperature 96.7 F L Temperature Source Temporal Pulse Rate 68 78 Respiratory Rate 18 17 Respiratory Effort Normal Respiratory Pattern Normal Blood Pressure 160/60 H Blood Pressure Mean 93 Pulse Ox 99 98 Oxygen Delivery Method Room Air Room Air Positive well nourished, well developed and obese General Appearance ED: well developed, NAD and pallor; Negative for cyanotic or diaphoretic Nutritional Appearance: obese HEENT Reports dry mucous membranes HEENT Narrative: Head is atraumatic normocephalic. Ears normal. Nares patent. Posterior pharynx unremarkable. Mouth ED: Yes dry mucous membranes Mouth: dry mucous membranes Eyes PERRL and EOMs intact bilaterally General Eye ED: Yes pale conjunctiva; Negative for scleral icterus Neck no lymphadenopathy, supple and no JVD Neck Narrative: Trachea is midline. There is no inspiratory expiratory stridor. Chest Wall inspection of chest normal and palpation of chest normal Resp normal respiratory effort and clear to auscultation bilaterally Cardio regular rate, regular rhythm, S1 normal heart sound and S2 normal heart sound Cardio Narrative: Patient has a grade 1-2 systolic murmur heard best over the left sternal border with radiation to the axilla consistent with mitral regurgitation. Palpation: abnormal PMI GI normal to inspection, nondistended, normoactive bowel sounds, non-tender, non-distended and no masses; Negative for hepatosplenomegaly Palpation: soft Back/Spine no CVA tenderness Cervical Spine: Negative for cervical spine tenderness Thoracic Spine / Upper Back: Negative for thoracic spinal tenderness Lumbar Spine / Lower Back: Negative for lumbar spinal tenderness Extremity Extremity Narrative: Venous stasis dermatitis without evidence infection General Extremety ED: Yes edema General Extremity: edema Neuro oriented x3, CN's II-XII intact bilaterally and no sensory deficits noted Sensorium / Orientation: alert Psych Mood & Affect: depressed Skin no wounds Skin Narrative: Venous stasis dermatitis both knees General Skin Exam: pallor; Negative for jaundice MDM MDM MDM Narrative Medical decision making narrative: Patient presents with vague symptoms. Since patient is reporting urinary tract symptoms and is on Bactrim will assess for urinary tract infection. Since she is diabetic and complaining of polyuria urea and polydipsia will obtain basic metabolic panel to assess glucose, CO2 anion gap. Also to assess renal function since she reports history of stage IV chronic kidney disease. She appears pale so will take CBC to assess white count as well as H&H and compare to prior. Considered admission. Since patient only abnormality is elevated white count and UA. She does not meet criteria for hospitalization. Will change antibiotics. Culture was sent. Will contact PCP to follow-up urine culture results and assure follow-up. The Cipro dose was altered because of chronic renal disease. Lab Data Attestation: I reviewed the patient's lab results. Lab results narrative: White count is elevated compared to baseline. Patient is anemic with normal indices. Hemoglobin normally ranges between 10-11. BUN and creatinine are in line with prior BUN/creatinine levels. Urine is consistent with infection with 50-100 WBCs 0-5 epithelial cells and 2+ bacteria. Urine culture was obtained. She received a dose of Rocephin. Blood sugar is 155 with a normal CO2 and anion gap. Suspect patient's frequency is due to the urinary tract infection that is failed outpatient therapy with Bactrim. Labs: Laboratory Results - last 24 hr 09/18/22 09/18/22 09/18/22 12:30 12:30 12:30 WBC 13.5 H RBC 3.07 L Hgb 9.0 L Hct 28.8 L MCV 93.8 MCH 29.3 MCHC 31.3 L RDW Std Deviation 49.6 H RDW Coeff of Kamar 14.6 Plt Count 311 MPV 10.1 Immature Gran % (Auto) 0.400 Neut % (Auto) 76.1 H Lymph % (Auto) 16.8 L [place] % (Auto) 4.1 Eos % (Auto) 2.2 Baso % (Auto) 0.4 Absolute Neuts (auto) 10.2 H Absolute Lymphs (auto) 2.26 Nucleated RBC % 0 Sodium 135 L Potassium 4.5 Chloride 106 Carbon Dioxide 24.0 Anion Gap 5 BUN 22 H Creatinine 2.43 H Estim Creat Clear Calc 14.40 Est GFR (MDRD) Af Amer 25 L Est GFR (MDRD) Non-Af 20 L BUN/Creatinine Ratio 9.1 L Glucose 155 H Calcium 8.6 Urine Color Straw Urine Clarity Cloudy Urine pH 6.0 Ur Specific [place] 1.010 Urine Protein 30 H Urine Glucose (UA) Normal Urine Ketones Negative Urine Occult Blood 25 H Urine Nitrite Negative Urine Bilirubin Negative Urine Urobilinogen Normal Ur Leukocyte Esterase 500 H Urine RBC 0-5 SEEN Urine WBC 50-100 SEEN Ur Squamous Epith Cells 0-5 SEEN Urine Bacteria 2+ Urine Mucus 0 SEEN Treatment and Re-Evaluation Narrative: Patient was informed of results. She was informed that she needs to follow-up with her doctor. Discharge Plan Triage Chief Complaint: General Illness ED Provider: Cristofer Farrar Dx/Rx/DC Orders Clinical Impression: Complicated urinary tract infection, Essential hypertension, Atherosclerosis of coronary artery bypass graft without angina pectoris, Hyperlipidemia, Cardiomyopathy, Chronic kidney disease (CKD) stage G4/A1, severely decreased glomerular filtration rate (GFR) between 15-29 mL/min/1.73 square meter and albuminuria creatinine ratio less than 30 mg/g Prescriptions: New ciprofloxacin HCl [Cipro] 250 mg tablet 250 mg PO Q12H Qty: 10 0RF No Action aspirin 81 mg tablet,delayed release (DR/EC) 81 mg PO QDAY clopidogrel 75 mg tablet 75 mg PO QDAY cetirizine [Zyrtec] 10 mg tablet 10 mg PO QDAY pravastatin 80 mg tablet 80 mg PO QHS glipizide 10 mg tablet 5 mg PO BID levothyroxine 100 mcg tablet 100 mcg PO DAILY Label Comments: TAKE 1 TABLET BY MOUTH ONCE DAILY allopurinol 100 mg tablet 100 mg PO DAILY Label Comments: TAKE 1 TABLET BY MOUTH ONCE DAILY spironolactone 25 mg tablet 25 mg PO DAILY folic acid 1 mg tablet 1 mg PO DAILY metoprolol tartrate 50 MG tablet 50 mg PO BID omeprazole 20 MG capsule 20 mg PO DAILY montelukast 10 MG tablet 10 mg PO DAILY ipratropium bromide 17 mcg/actuation HFA aerosol inhaler 2 puff INHALATION 4X/DAY PRN PRN (Reason: Asthma) Primary Care Provider: Tabatha Diaz Referrals: Tabatha Diaz MD [Primary Care Provider] - 3-5 Days Disposition Disposition: Home, Self Care
[2022-09-18 12:47] LABS: Red Blood Cells-Urine 0-5 SEEN /hpf (0-5); White Blood Cells 50-100 SEEN /hpf (0-5)
[2022-09-18 12:48] LABS: Bacteria 2+ /hpf (None Seen); Squamous Epithelial Cells - UA 0-5 SEEN /hpf (5-10)
[2022-09-18 12:53] LABS: Anion Gap 5 (5-15); BUN 22 mg/dL (7-18); BUN/Creat Ratio 9.1 RATIO (10-20); Calcium,Total 8.6 mg/dL (8.5-10.1); Chloride 106 mmol/L (98-107); Creatinine, Serum 2.43 mg/dL (0.55-1.02); EST Glomerular Filtration Rate 20 mL/min (>60); Est Glom Filt Rate - Afr Amer 25 mL/min (>60); Glucose 155 mg/dL (74-106); Potassium 4.5 mmol/L (3.5-5.1); Sodium Level 135 mmol/L (136-145)
[2022-09-18] MEDS: 0.9% Normal Saline 1,000 ML 250 ML IV (13:52)
[2022-09-18] MEDS: Ceftriaxone 1 GM/50 ML BAG IV (13:52)
--- NOTE | 2022-09-18 13:52 | ED.RN ---
Tried to initate IVF and atb 3 times for patient but she needed to the use the restroom and was on the phone with her doctor's office and was not willing to sit down for this nurse to start the fluids. Once she finished her phone calls, she sat down on the bed and allowed me to have her arm to start her fluids and atb. She is aware this will take approx 1 hour to complete. No further needs at this time.
[2022-09-18 14:35] VITALS: PULSE 78; RESP 17; O2SAT 98
== END 2022-09-18 15:12 | disposition home or self-care (01) ==
PROVIDERS: Emergency Provider Emergency Medicine; PCP Internal Medicine; Visit Provider Emergency Medicine
DX: N39.0 Urinary tract infection, site not specified (principal); J44.9 Chronic obstructive pulmonary disease, unspecified; I42.9 Cardiomyopathy, unspecified; E11.22 Type 2 diabetes mellitus with diabetic chronic kidney disease; N18.9 Chronic kidney disease, unspecified; I12.9 Hypertensive chronic kidney disease with stage 1 through stage 4 chronic kidney disease, or unspecified chronic kidney disease; I25.10 Atherosclerotic heart disease of native coronary artery without angina pectoris; E78.5 Hyperlipidemia, unspecified; Z95.5 Presence of coronary angioplasty implant and graft; R35.0 Frequency of micturition; R63.1 Polydipsia; R35.89 Other polyuria
CPT/HCPCS: 99284; 80048; 81001; 85025; 87086; 87088; J7030; A4216

== ENCOUNTER 2022-09-20 11:45 | Inpatient (IN) | payer MEDICARE, SELFPAY ==
[2021-03-16 09:07] VITALS: BMI 39.2
[2022-09-20] VITALS (10 sets, daily range): BP systolic 143–174; BP diastolic 48–74; PULSE 59–79; RESP 11–18; TEMP 36.4–36.9; O2SAT 9–100; BMI 36.4; BMI 36.6
--- NOTE | 2022-09-20 11:59 | EKG12_ITS ---
Test Reason : CP Blood Pressure : / mmHG Vent. Rate : 067 BPM Atrial Rate : 067 BPM P-R Int : 168 ms QRS Dur : 104 ms QT Int : 446 ms P-R-T Axes : 015 045 115 degrees QTc Int : 471 ms Normal sinus rhythm with sinus arrhythmia ST & T wave abnormality, consider lateral ischemia Prolonged QT Abnormal ECG Confirmed by ARNALDO DUQUE, DARLENE ([id number]), editor newspaper SUKHDEEP CONTRERAS ([id number]) on 09/23/2022 11:46:31 AM Referred By: KEATON/ROCCO Confirmed By:DARLENE MCINTOSH MD
[2022-09-20 12:09] LABS: Absolute Lymphocyte Count 2.36 X10^3/uL (0.83-4.51); Absolute Neutrophil Count 5.1 X10^3/uL (2.0-7.7); Basophil# 0.05 X10^3/uL; Basophil% 0.6 % (0-1); Eosinophil# 0.46 X10^3/uL; Eosinophils% 5.4 % (0-5); Hematocrit 28.9 % (37-47); Hemoglobin 8.7 g/dL (12.0-15.0); Lymphocyte # 2.36 X10^3/ul (0.83-4.51); Lymphocyte % 27.5 % (19-41); Mean Corp Hgb Conc 30.1 g/dL (32-36); Mean Corpuscular Hgb 29.3 pg (27.0-32.0); Mean Corpuscular Volume 97.3 fL (81-99); Mean Platelet Vol. 10.4 fl (6.2-12.0); Monocyte# 0.59 X10^3/uL; Monocyte% 6.9 % (0-10); NRBC Flagged by Analyzer 0 % (0-5); Neutrophil # 5.08 X10^3/uL (2.7-7.7); Neutrophil % 59.2 % (47-70); Platelet Count 290 K/mm3 (150-450); RBC Distribution Width CV 14.9 % (11.6-14.6); RBC Distribution Width SD 52.6 fl (35.1-43.9); Red Blood Count 2.97 M/mm3 (4.2-5.4); White Blood Count 8.6 K/mm3 (4.4-11.0)
--- NOTE | 2022-09-20 12:15 | RAD_ITS ---
STUDY: X-RAY CHEST REASON FOR EXAM: Female, 77 years old. Chest pain TECHNIQUE: Single AP portable view of the chest. COMPARISON: Comparison is made with prior study dated 03/30/2022. FINDINGS: EKG electrodes are seen. Gastric congestion and CHF. Blunting of the right costophrenic angle with a small right pleural effusion. Sternal cerclage wires and vascular clips are present from a prior sternotomy and coronary artery bypass graft procedure (CABG). Normal mediastinum and teri. Normal visualized pulmonary arteries. There is atherosclerotic calcification of the aortic arch with tortuosity. There are diffuse degenerative changes of the visualized thoracic spine. Normal visualized ribs, clavicles, and shoulders. There is no demonstrated abnormality of the visualized soft tissue structures of the upper abdomen. RAD/Chest 1 View (Portable) IMPRESSION: Cardiomegaly and CHF. Small right pleural effusion. Electronically Signed: Brandyn Cheng MD at 12:39 EST ,
[2022-09-20 12:27] LABS: Anion Gap 7 (5-15); BUN 21 mg/dL (7-18); BUN/Creat Ratio 9.7 RATIO (10-20); Calcium,Total 8.4 mg/dL (8.5-10.1); Chloride 110 mmol/L (98-107); Creatinine, Serum 2.16 mg/dL (0.55-1.02); EST Glomerular Filtration Rate 23 mL/min (>60); Est Glom Filt Rate - Afr Amer 28 mL/min (>60); Glucose 121 mg/dL (74-106); Sodium Level 138 mmol/L (136-145); Troponin-I HS (w/2H Reflex) 21 pg/mL (3.0-54.0)
--- NOTE | 2022-09-20 13:41 | EDS_ITS ---
HPI History of Present Illness Chief Complaint: Chest Pain Narrative Narrative: 77-year-old female with history of CAD, cardiomyopathy, CA, hypertension, hyperlipidemia presenting with chest pain. She states that last night she has had a couple of episodes of this where it started in the central chest that radiated up into her neck. She states this is how her previous MIs had presented. Last night it was resolved and today she had another 1 that began this morning. She reports that a couple of weeks ago she was seen by the heart group and was post have a stress test and an echocardiogram done that day however due to vehicle issues she was unable to do this. This is rescheduled for next week but the patient continues to have intermittent pain and she states she feels short of breath. 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 Type 2 diabetes mellitus without complication Vertigo Home Medications metoprolol tartrate 50 mg tablet 50 mg PO BID 12/17/13 [History Last Taken 10/08/20] montelukast 10 mg tablet 10 mg PO DAILY 12/17/13 [History Last Taken 10/08/20] omeprazole 20 mg capsule,delayed release 20 mg PO DAILY 12/17/13 [History Last Taken 10/08/20] aspirin 81 mg tablet,delayed release 81 mg PO QDAY 11/19/17 [History Last Taken 10/08/20] clopidogrel 75 mg tablet 75 mg PO QDAY 12/22/17 [History Last Taken 10/08/20] cetirizine 10 mg tablet (Zyrtec) 10 mg PO QDAY allergies 02/15/20 [History Last Taken 10/08/20] pravastatin 80 mg tablet 80 mg PO QHS 02/15/20 [History Last Taken 10/07/20] allopurinol 100 mg tablet 100 mg PO DAILY 11/22/21 [History Last Taken Unknown] levothyroxine 100 mcg tablet 100 mcg PO DAILY 11/22/21 [History Last Taken Unknown] glipizide 10 mg tablet 5 mg PO BID 05/24/22 [History Last Taken Unknown] folic acid 1 mg tablet 1 mg PO DAILY 08/28/22 [History Last Taken Unknown] spironolactone 25 mg tablet 25 mg PO DAILY 08/28/22 [History Last Taken Unknown] ciprofloxacin HCl 250 mg tablet (Cipro) 250 mg PO Q12H #10 tabs 09/18/22 [Rx Last Taken Unknown] ipratropium 20 mcg-albuterol 100 mcg/actuation mist for inhalation (Combivent Respimat) 1 puff inhalation Q6H 09/20/22 [History Last Taken Unknown] Allergy/AdvReac Type Severity Reaction Status Date / Time albuterol Allergy Shortness Verified 09/20/22 11:46 of breath Anesthetics - Amide Type - Allergy Other Verified 09/20/22 11:46 Select A [Anesthetics - Amide Type] acetaminophen [From Tylenol] AdvReac Severe Other Verified 09/20/22 11:46 cinnamon AdvReac Unknown Unknown Verified 09/20/22 11:46 Penicillins AdvReac Unknown Unknown Verified 09/20/22 11:46 Family History Mother , age 86, advanced age No problems noted. Father Prostate cancer Surgical History H/O coronary artery bypass surgery (10/11/07) History of cholecystectomy History of coronary artery stent placement (01/26/21) History of hysterectomy Hx of appendectomy Hx of bilateral cataract extraction Social History Smoking Status: Never smoker alcohol intake: never substance use type: does not use caffeine: Yes Type: carbonated beverages what type of physical activity do you participate in: none seatbelt use: always do you feel safe at home: Yes EXAM Physical Exam Const Vital Signs: 09/20/22 11:46 09/20/22 11:59 09/20/22 13:12 Temperature 98.2 F Temperature Source Temporal Pulse Rate 67 76 Respiratory Rate 11 L 15 Blood Pressure 161/57 H 143/63 H Blood Pressure Mean 91 89 Pulse Ox 100 98 Oxygen Delivery Method Room Air Room Air Room Air 09/20/22 13:58 09/20/22 15:32 Temperature Temperature Source Pulse Rate 61 Respiratory Rate 16 Blood Pressure Blood Pressure Mean Pulse Ox 99 Oxygen Delivery Method MDM MDM MDM Narrative Medical decision making narrative: Patient presented with intermittent chest pain which radiates up into her neck. She has a significant cardiac history. She was recently hospitalized for pneumonia, CHF, UTI and followed up with Dr. Win. Originally scheduled to have echocardiogram and stress test due to her complaints and that was supposed to be a same day however due to vehicle issues this could not be performed and is scheduled for next week. Patient has had 3 episodes of chest pain which improved but she still complaining of dyspnea. CBC will be assessed to check patient's hemoglobin and check a white blood cell count which is elevated on her last visit for chest pain. CBC to assess for renal function and electrolytes as well as glucose. EKG was obtained due to the patient's complaint of chest pain which on my interpretation shows a normal sinus rhythm with a ventricular to 67 bpm without evidence of ischemic change. High-sensitivity troponin returned at 21. Patient is not tachycardic, tachypneic, hypoxic and she is on room air with no history of DVT/PE and I have low suspicion for PE. Chest x-ray obtained due to her complaint of dyspnea and on my interpretation shows cardiomegaly and evidence of pulmonary vascular congestion with right pleural effusion on my i nterpretation. Radiologist who presents to agrees. CBC shows a normal white blood cell count 8.6. Hemoglobin is slightly lower than previous at 8.7. Platelets normal at 290. Creatinine is 2.16 today which is actually improved from her previous. Glucose is 121. Because her hemoglobin was lower than previous I did obtain an occult stool. Patient does state that on 14 September she did have a fall and had a scalp laceration which bled a lot. I reviewed the medical records and at that point her hemoglobin was 10.5. This has acutely changed and this could be part of her dyspnea. From a chest pain standpoint her EKG is normal and her high-sensitivity troponin initially 21 with a delta troponin 23 is essentially normal. She does have evidence of CHF here today which could also be adding to her dyspnea. Patient was discussed with hospitalist for admission. Impression: 1. CHF 2. Acute blood loss anemia 3. GI bleed 4. Dyspnea 5. Chest pain Lab Data Attestation: I reviewed the patient's lab results. Labs: Laboratory Results - last 24 hr 09/20/22 09/20/22 09/20/22 11:54 11:54 14:50 WBC 8.6 RBC 2.97 L Hgb 8.7 L Hct 28.9 L MCV 97.3 MCH 29.3 MCHC 30.1 L RDW Std Deviation 52.6 H RDW Coeff of Kamar 14.9 H Plt Count 290 MPV 10.4 Immature Gran % (Auto) 0.400 Neut % (Auto) 59.2 Lymph % (Auto) 27.5 [place] % (Auto) 6.9 Eos % (Auto) 5.4 H Baso % (Auto) 0.6 Absolute Neuts (auto) 5.1 Absolute Lymphs (auto) 2.36 Nucleated RBC % 0 Sodium 138 Potassium 4.0 Chloride 110 H Carbon Dioxide 21.0 Anion Gap 7 BUN 21 H Creatinine 2.16 H Estim Creat Clear Calc 16.20 Est GFR (MDRD) Af Amer 28 L Est GFR (MDRD) Non-Af 23 L BUN/Creatinine Ratio 9.7 L Glucose 121 H Calcium 8.4 L Troponin I High Sens 21 23 Radiography Diagnostic Testing: Clinical Impression(s) from Imaging Studies Chest X-Ray 09/20/22 12:15 IMPRESSION: Cardiomegaly and CHF. Small right pleural effusion. Electronically Signed: Brandyn Cheng MD at 12:39 EST , Discharge Plan Triage Chief Complaint: Chest Pain ED Provider: Rohit Singh Dx/Rx/DC Orders Prescriptions: No Action aspirin 81 mg tablet,delayed release (DR/EC) 81 mg PO QDAY clopidogrel 75 mg tablet 75 mg PO QDAY cetirizine [Zyrtec] 10 mg tablet 10 mg PO QDAY pravastatin 80 mg tablet 80 mg PO QHS glipizide 10 mg tablet 5 mg PO BID levothyroxine 100 mcg tablet 100 mcg PO DAILY Label Comments: TAKE 1 TABLET BY MOUTH ONCE DAILY allopurinol 100 mg tablet 100 mg PO DAILY Label Comments: TAKE 1 TABLET BY MOUTH ONCE DAILY spironolactone 25 mg tablet 25 mg PO DAILY folic acid 1 mg tablet 1 mg PO DAILY metoprolol tartrate 50 MG tablet 50 mg PO BID omeprazole 20 MG capsule 20 mg PO DAILY montelukast 10 MG tablet 10 mg PO DAILY ciprofloxacin HCl [Cipro] 250 mg tablet 250 mg PO Q12H Qty: 10 0RF Combivent Respimat 20-100 mcg/actuation mist 1 puff INHALATION Q6H Primary Care Provider: Tabatha Diaz Referrals: Tabatha Diaz MD [Primary Care Provider] -
[2022-09-20] MEDS: Ipratropium/Albuterol Sulfate 3 ML AMPUL.NEB INHALATION ×2 (13:55→19:08)
[2022-09-20 14:06] LABS: Reflex Troponin-HS? (from REC) Y
[2022-09-20 15:15] LABS: Troponin-I HS 23 pg/mL (3.0-54.0)
[2022-09-20 16:35] LABS: Magnesium 1.9 mg/dL (1.6-2.6)
--- NOTE | 2022-09-20 16:43 | ECHOCS_ITS ---
Version 2 Reason For Study: Dyspnea/SOB Procedure This was a 2D Doppler, Color Flow transthoracic echocardiogram. The study was technically difficult. Contrast injection was performed. Exam performed portable in patient room. Left Ventricle Normal LV size. The estimated ejection fraction is 45 %. Mild global left ventricular systolic dysfunction. No regional wall motion abnormalities noted. Right Ventricle Normal RV size. Normal systolic function. Mitral Valve Normal mitral valve. Moderate (2+) eccentric mitral valve insufficiency. Tricuspid Valve Normal tricuspid valve. Mild to moderate (1-2+) tricuspid valve insufficiency. Pulmonary artery systolic pressure is 54 mmHg. Aortic Valve The aortic valve is not well visualized. Pulmonic Valve Normal pulmonic valve. Great Vessels Normal aortic root. The pulmonary artery is normal size. Normal inferior vena cava. Pericardium/Pleural No pericardial effusion. Medication Diluted definity 2ml given slow IV push to enhance endocardial definition. MMode/2D Measurements & Calculations LVIDd: 5.9 cm IVSd: 0.86 cm Ao root diam: 3.7 cm LVIDs: 4.2 cm LVPWd: 1.0 cm LA dimension: 5.4 cm FS: 28.6 % LAV(MOD-bp): 129.2 ml LVAd ap4: 42.3 cm2 LVAd ap2: 34.7 cm2 LAV(MOD-bp) Indexed: 69.3 ml/m2 LVLd ap4: 7.7 cm LVLd ap2: 7.4 cm LAV(MOD-sp2): 125.4 ml EDV(MOD-sp4): 191.2 ml EDV(MOD-sp2): 135.8 ml LAV(MOD-sp4): 127.2 ml EDV(sp4-el): 197.1 ml EDV(sp2-el): 137.9 ml LVAs ap4: 30.3 cm2 LVAs ap2: 27.9 cm2 LVLs ap4: 7.0 cm LVLs ap2: 6.7 cm ESV(MOD-sp4): 107.2 ml ESV(MOD-sp2): 96.8 ml ESV(sp4-el): 111.5 ml ESV(sp2-el): 99.0 ml EF(MOD-sp4): 44.0 % EF(MOD-sp2): 28.7 % EF(sp4-el): 43.4 % SV(MOD-sp4): 84.1 ml SV(MOD-sp2): 39.0 ml SV(sp4-el): 85.6 ml LA A4 area: 30.9 cm2 RA A4 area: 19.4 cm2 Time Measurements MV dec time: 0.14 sec Doppler Measurements & Calculations MV E max mik: 114.5 cm/sec Lat Peak E' Mik: 4.5 cm/sec Med Peak E' Mik: 8.5 cm/sec MV A max mik: 70.2 cm/sec E/E' lat: 25.4 E/E' med: 13.5 MV E/A: 1.6 MV V2 max: 144.9 cm/sec MV P1/2t max mik: 144.9 cm/sec Ao V2 max: 103.2 cm/sec MV max P.4 mmHg MV P1/2t: 48.2 msec Ao max P.3 mmHg MV V2 mean: 70.1 cm/sec MV dec slope: 880.9 cm/sec2 Ao V2 mean: 75.7 cm/sec MV mean P.5 mmHg Ao mean P.6 mmHg MV V2 VTI: 28.6 cm MVA(P1/2t): 4.6 cm2 Ao V2 VTI: 23.6 cm AV (velocity ratio): 0.86 LV V1 max: 92.5 cm/sec MR max mik: 506.2 cm/sec PA V2 max: 85.5 cm/sec LV V1 max P.4 mmHg MR max P.5 mmHg LV V1 mean P.8 mmHg MR mean mik: 386.2 cm/sec LV V1 mean: 61.7 cm/sec MR mean P.1 mmHg LV V1 VTI: 20.3 cm MR VTI: 141.3 cm TR max mik: 331.2 cm/sec TR max P.9 mmHg ECHO/Echo Complete W/ Contrast Interpretation Summary Normal LV size. The estimated ejection fraction is 45 %. Mild global left ventricular systolic dysfunction. Pulmonary artery systolic pressure is 54 mmHg. Contrast injection was performed. Ordering Physician: Jemma Castellon Performed By: Alhponso Orozco RCS
--- NOTE | 2022-09-20 16:43 | EKG12_ITS ---
Test Reason : AM EKG Blood Pressure : / mmHG Vent. Rate : 064 BPM Atrial Rate : 064 BPM P-R Int : 146 ms QRS Dur : 102 ms QT Int : 460 ms P-R-T Axes : 044 042 095 degrees QTc Int : 474 ms Normal sinus rhythm with sinus arrhythmia ST & T wave abnormality, consider lateral ischemia Abnormal ECG Confirmed by CHERI DUQUE, NELA ([id number]), slot editor SUKHDEEP CONTRERAS ([id number]) on 09/25/2022 9:59:47 AM Referred By: Confirmed By:NELA ALONZO MD
[2022-09-20] MEDS: 0.9% Normal Saline 1,000 ML 75 ML IV (17:23)
[2022-09-20 17:45] LABS: Bedside Glucose 128 mg/dL (74-106)
[2022-09-20 18:29] LABS: Hematocrit 28.9 % (37-47); Hemoglobin 9.3 g/dL (12.0-15.0)
[2022-09-20 18:44] LABS: Troponin-I HS 20 pg/mL (3.0-54.0)
--- NOTE | 2022-09-20 19:14 | EX.PCM.CON.G ---
HPI Consult Data Date of Consult: 09/20/22 HPI Narrative Reason for Consultation: Anemia HPI Narrative: HILLARY WELLS, is a 77-year-old female with history of CAD, cardiomyopathy, SC, hypertension, hyperlipidemia presenting with chest pain.? She states that last night she has had a couple of episodes of this where it started in the central chest that radiated up into her neck.? She states this is how her previous MIs had presented.? Last night it was resolved and today she had another 1 that began this morning.? She reports that a couple of weeks ago she was seen by the heart group and was post have a stress test and an echocardiogram done that day however due to vehicle issues she was unable to do this.? This is rescheduled for next week but the patient continues to have intermittent pain and she states she feels short of breath. I was called to see her because she did have some black stools and she was noted to have decreased hemoglobin. [facility] Medical History Arm paresthesia, right Asthma Atherosclerosis of coronary artery bypass graft without angina pectoris Atherosclerotic heart disease of [place] coronary artery without angina pectoris Cardiomyopathy CKD (chronic kidney disease) COPD (chronic obstructive pulmonary disease) COVID-19 (~04/2022) Essential hypertension GERD (gastroesophageal reflux disease) History of non-ST elevation myocardial infarction (NSTEMI) (01/26/21) Hyperlipidemia Hypothyroidism Insect bite Morbid obesity NSTEMI (non-ST elevated myocardial infarction) Obesity 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 Type 2 diabetes mellitus without complication Vertigo Home Medications metoprolol tartrate 50 mg tablet 50 mg PO BID HEART 12/17/13 [History Last Taken 09/20/22] montelukast 10 mg tablet 10 mg PO DAILY ASTHMA 12/17/13 [History Last Taken 09/19/22] omeprazole 20 mg capsule,delayed release 20 mg PO DAILY GERD 12/17/13 [History Last Taken 09/20/22] aspirin 81 mg tablet,delayed release 81 mg PO QDAY HEART HEALTH 11/19/17 [History Last Taken 09/20/22] clopidogrel 75 mg tablet 75 mg PO QDAY HEART 12/22/17 [History Last Taken 09/19/22] cetirizine 10 mg tablet (Zyrtec) 10 mg PO QDAY allergies 02/15/20 [History Last Taken 09/19/22] pravastatin 80 mg tablet 80 mg PO QHS CHOLESTEROL 02/15/20 [History Last Taken 09/19/22] allopurinol 100 mg tablet 100 mg PO DAILY GOUT 11/22/21 [History Last Taken 09/19/22] levothyroxine 100 mcg tablet 100 mcg PO DAILY THYROID 11/22/21 [History Last Taken 09/19/22] glipizide 10 mg tablet 5 mg PO BID DM 05/24/22 [History Last Taken 09/19/22] folic acid 1 mg tablet 1 mg PO DAILY SUPPLEMENT 08/28/22 [History Last Taken 09/19/22] spironolactone 25 mg tablet 25 mg PO DAILY HEART 08/28/22 [History Last Taken 09/20/22] ciprofloxacin HCl 250 mg tablet (Cipro) 250 mg PO Q12H ANTIBIOTIC 09/20/22 [History Last Taken 09/20/22] ferrous sulfate 325 mg (65 mg iron) tablet 325 mg PO DAILY SUPPLEMENT 09/20/22 [History Last Taken 2 Days Ago ~09/18/22] furosemide 40 mg tablet 40 mg PO DAILY FLUID 09/20/22 [History Last Taken 09/20/22] ipratropium 20 mcg-albuterol 100 mcg/actuation mist for inhalation (Combivent Respimat) 1 puff inhalation Q6H BREATHING 09/20/22 [History Last Taken 09/20/22] Allergy/AdvReac Type Severity Reaction Status Date / Time albuterol Allergy Shortness Verified 09/20/22 11:46 of breath Anesthetics - Amide Type - Allergy Other Verified 09/20/22 11:46 Select A [Anesthetics - Amide Type] acetaminophen [From Tylenol] AdvReac Severe Other Verified 09/20/22 11:46 cinnamon AdvReac Unknown Unknown Verified 09/20/22 11:46 Penicillins AdvReac Unknown Unknown Verified 09/20/22 11:46 Family History Mother , age 86, advanced age No problems noted. Father Prostate cancer Surgical History H/O coronary artery bypass surgery (10/11/07) History of cholecystectomy History of coronary artery stent placement (01/26/21) History of hysterectomy Hx of appendectomy Hx of bilateral cataract extraction Social History Smoking Status: Never smoker alcohol intake: never substance use type: does not use caffeine: Yes Type: carbonated beverages what type of physical activity do you participate in: none seatbelt use: always do you feel safe at home: Yes ROS ROS Narrative Admission Review of Systems: CONSTITUTIONAL: No weight loss, fever, chills, + weakness or fatigue. HEENT: Eyes: No visual loss, blurred vision, double vision or yellow sclerae. Ears, Nose, Throat: No hearing loss, sneezing, congestion, runny nose or sore throat. SKIN: No rash or itching, lesions, wounds. CARDIOVASCULAR: + chest pain, chest pressure or chest discomfort, No palpitations, edema, orthopnea, syncopal events. RESPIRATORY: + shortness of breath, cough with sputum, wheezing, No hemoptysis. GASTROINTESTINAL: No anorexia, nausea, vomiting or diarrhea, abdominal pain, melena, BRBPR. GENITOURINARY: No dysuria, frequency, urgency or retention. NEUROLOGICAL: No headache, dizziness, syncope, paralysis, ataxia, numbness or tingling in the extremities, focal weakness, change in bowel or bladder control, seizure. MUSCULOSKELETAL: + muscle, back pain, joint pain or stiffness. HEMATOLOGIC: + anemia, bleeding or bruising. LYMPHATICS: No enlarged nodes. No history of splenectomy. PSYCHIATRIC: No history of depression or anxiety. ENDOCRINOLOGIC: No reports of sweating, cold or heat intolerance. No polyuria or polydipsia. ALLERGIES: No history of asthma, hives, eczema or rhinitis. Physical Exam Const alert and oriented x3 Orientation / Consciousness: awake HEENT normocephalic Eyes no scleral icterus Neck supple Chest inspection of chest normal Resp normal respiratory effort Cardio regular rate Skin no rashes or lesions noted Lab / Micro Data Result Diagrams: 09/20/22 18:00 09/20/22 11:54 Labs: Laboratory Results - last 24 hr 09/20/22 11:54: WBC 8.6, RBC 2.97 L, Hgb 8.7 L, Hct 28.9 L, MCV 97.3, MCH 29.3, MCHC 30.1 L, RDW Std Deviation 52.6 H, RDW Coeff of Kamar 14.9 H, Plt Count 290, MPV 10.4, Immature Gran % (Auto) 0.400, Neut % (Auto) 59.2, Lymph % (Auto) 27.5, [place] % (Auto) 6.9, Eos % (Auto) 5.4 H, Baso % (Auto) 0.6, Absolute Neuts (auto) 5.1, Absolute Lymphs (auto) 2.36, Nucleated RBC % 0 09/20/22 11:54: Sodium 138, Potassium 4.0, Chloride 110 H, Carbon Dioxide 21.0, Anion Gap 7, BUN 21 H, Creatinine 2.16 H, Estim Creat Clear Calc 16.20, Est GFR (MDRD) Af Amer 28 L, Est GFR (MDRD) Non-Af 23 L, BUN/Creatinine Ratio 9.7 L, Glucose 121 H, Calcium 8.4 L, Troponin I High Sens 21 09/20/22 14:50: Troponin I High Sens 23 09/20/22 14:50: Magnesium 1.9 09/20/22 15:54: Blood Type A POSITIVE, Antibody Screen NEGATIVE 09/20/22 17:27: POC Glucose 128 H 09/20/22 18:00: Hgb 9.3 L, Hct 28.9 L 09/20/22 18:00: Troponin I High Sens 20 Micro: Microbiology 09/20/22 14:50 Stool Stool Occult Blood (NIURKA) - Final Occult Blood Positive Radiology Impression Chest X-Ray 09/20/22 12:15 IMPRESSION: Cardiomegaly and CHF. Small right pleural effusion. Electronically Signed: Brandyn Cheng MD at 12:39 EST , Assessment & Plan Assessment/Plan (1) GI bleed: PLAN: Recommendation upper endoscopy to evaluate upper GI tract. She was explained alternatives, risk, benefits including outstanding bleeding, infection, sepsis, perforation, need for urgent surgery . She will have an ASA of 3. Charges/Coding Visit Charges Inpatient E&M: 82316 Init Hosp L2
--- NOTE | 2022-09-20 19:28 | HP.PCM.HOS_ITS ---
HPI - General General Date of Admission: 09/20/22 Date of Service: 09/20/22 Chief Complaint: Chest pain, dyspnea. HPI Narrative The patient is a 77 y/o F w/ PMHx: Chronic BL LE Edema/Lymphedema, Chronic normocytic anemia, HTN, HLD, Diabetes mellitus type II, CAD s/p PCI and CABG, Asthma w/ Allergic rhinitis, GERD, CKD stage IV (baseline Cr 1.6-2.4), Obesity, Hypothyroidism, Chronic systolic and diastolic CHF/Ischemic cardiomyopathy, [employer] jose luis debility using a cane baseline, recent ED evaluation 09/18/22 secondary to ongoing UTI type symptoms, recently completed bactrim outpatient regimen with ongoing flank discomfort/dysuria at that time discharge on ciprofloxacin who now represents to the [facility] ED on 09/20/22 with history of central chest discomfort that radiated up towards her neck describes more as an aching, 3 to 4-10 in severity with no associated significant increased dyspnea, nausea or emesis nor any diaphoresis resolving after approximately 20 minutes with similar episodes prior with late August cardiology evaluation with planned echocardiogram and stress testing at that time however unfortunately this was delayed and she is yet to have this with worsening dyspnea, increasing fatigue, ill inability to even perform simple activities over the last several days prompting return to ED. She denies any recent significant weight gain but actually reports weight loss and denies any increased edema or specifically orthopnea that is above her baseline. Work-up in the ED included T98.2, heart rate 67, BP 161/57, respirato ry rate 15, 98% on room air, CBC with WC 8.6, hemoglobin 8.7, platelet 290 without marked shift, BMP with chloride 110, BUN/creat 21/2.16, glucose 121, troponin initial 21 with repeat delta 23, chest x-ray cardiomegaly and CHF, small right pleural effusion, stool guaiac occult blood positive, EKG was sinus rhythm with no acute evidence of ischemia. In the ED patient ministered DuoNeb therapy. [facility] Medical History Arm paresthesia, right Asthma Atherosclerosis of coronary artery bypass graft without angina pectoris Atherosclerotic heart disease of [place] coronary artery without angina pectoris Cardiomyopathy CKD (chronic kidney disease) COPD (chronic obstructive pulmonary disease) COVID-19 (~04/2022) Essential hypertension GERD (gastroesophageal reflux disease) History of non-ST elevation myocardial infarction (NSTEMI) (01/26/21) Hyperlipidemia Hypothyroidism Insect bite Morbid obesity NSTEMI (non-ST elevated myocardial infarction) Obesity 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 Type 2 diabetes mellitus without complication Vertigo Home Medications metoprolol tartrate 50 mg tablet 50 mg PO BID HEART 12/17/13 [History Last Taken 09/20/22] montelukast 10 mg tablet 10 mg PO DAILY ASTHMA 12/17/13 [History Last Taken 09/19/22] omeprazole 20 mg capsule,delayed release 20 mg PO DAILY GERD 12/17/13 [History Last Taken 09/20/22] aspirin 81 mg tablet,delayed release 81 mg PO QDAY HEART HEALTH 11/19/17 [History Last Taken 09/20/22] clopidogrel 75 mg tablet 75 mg PO QDAY HEART 12/22/17 [History Last Taken 09/19/22] cetirizine 10 mg tablet (Zyrtec) 10 mg PO QDAY allergies 02/15/20 [History Last Taken 09/19/22] pravastatin 80 mg tablet 80 mg PO QHS CHOLESTEROL 02/15/20 [History Last Taken 09/19/22] allopurinol 100 mg tablet 100 mg PO DAILY GOUT 11/22/21 [History Last Taken 09/19/22] levothyroxine 100 mcg tablet 100 mcg PO DAILY THYROID 11/22/21 [History Last Taken 09/19/22] glipizide 10 mg tablet 5 mg PO BID DM 05/24/22 [History Last Taken 09/19/22] folic acid 1 mg tablet 1 mg PO DAILY SUPPLEMENT 08/28/22 [History Last Taken 09/19/22] spironolactone 25 mg tablet 25 mg PO DAILY HEART 08/28/22 [History Last Taken 09/20/22] ciprofloxacin HCl 250 mg tablet (Cipro) 250 mg PO Q12H ANTIBIOTIC 09/20/22 [History Last Taken 09/20/22] ferrous sulfate 325 mg (65 mg iron) tablet 325 mg PO DAILY SUPPLEMENT 09/20/22 [History Last Taken 2 Days Ago ~09/18/22] furosemide 40 mg tablet 40 mg PO DAILY FLUID 09/20/22 [History Last Taken 09/20/22] ipratropium 20 mcg-albuterol 100 mcg/actuation mist for inhalation (Combivent Respimat) 1 puff inhalation Q6H BREATHING 09/20/22 [History Last Taken 09/20/22] Allergy/AdvReac Type Severity Reaction Status Date / Time albuterol Allergy Shortness Verified 09/20/22 11:46 of breath Anesthetics - Amide Type - Allergy Other Verified 09/20/22 11:46 Select A [Anesthetics - Amide Type] acetaminophen [From Tylenol] AdvReac Severe Other Verified 09/20/22 11:46 cinnamon AdvReac Unknown Unknown Verified 09/20/22 11:46 Penicillins AdvReac Unknown Unknown Verified 09/20/22 11:46 Family History Mother , age 86, advanced age No problems noted. Father Prostate cancer Surgical History H/O coronary artery bypass surgery (10/11/07) History of cholecystectomy History of coronary artery stent placement (01/26/21) History of hysterectomy Hx of appendectomy Hx of bilateral cataract extraction Social History Smoking Status: Never smoker alcohol intake: never substance use type: does not use caffeine: Yes Type: carbonated beverages what type of physical activity do you participate in: none seatbelt use: always do you feel safe at home: Yes ROS ROS Narrative Admission Review of Systems: CONSTITUTIONAL: No fever, chills, + weight loss, weakness or fatigue. HEENT: Eyes: No visual loss, blurred vision, double vision or yellow sclerae. Ears, Nose, Throat: No hearing loss, sneezing, congestion, runny nose or sore throat. SKIN: No rash or itching, lesions, wounds. CARDIOVASCULAR: + chest pain, chest pressure or chest discomfort, No palpitations, edema, orthopnea, syncopal events. RESPIRATORY: + shortness of breath, No cough or sputum, wheezing, hemoptysis. GASTROINTESTINAL: + anorexia, No nausea, vomiting or diarrhea, abdominal pain, melena, BRBPR. GENITOURINARY: No dysuria, frequency, urgency or retention. NEUROLOGICAL: No headache, dizziness, syncope, paralysis, ataxia, numbness or tingling in the extremities, focal weakness, change in bowel or bladder control, seizure. MUSCULOSKELETAL: + muscle, back pain, joint pain or stiffness. HEMATOLOGIC: + anemia, bleeding or bruising. LYMPHATICS: No enlarged nodes. No history of splenectomy. PSYCHIATRIC: No history of depression or anxiety. ENDOCRINOLOGIC: No reports of sweating, cold or heat intolerance. No polyuria or polydipsia. ALLERGIES: No history of asthma, hives, eczema or rhinitis. Vital Signs Vital Signs Vital Signs: 09/20/22 11:46 09/20/22 11:59 09/20/22 13:12 Temperature 98.2 F Temperature Source Temporal Pulse Rate 67 76 Respiratory Rate 11 L 15 Blood Pressure 161/57 H 143/63 H Blood Pressure Mean 91 89 Pulse Ox 100 98 Oxygen Delivery Method Room Air Room Air Room Air 09/20/22 13:58 09/20/22 15:32 Temperature Temperature Source Pulse Rate 61 Respiratory Rate 16 Blood Pressure Blood Pressure Mean Pulse Ox 99 Oxygen Delivery Method Weight Weight: 193 lb Body Mass Index (BMI) 36.4 Physical Exam Narrative Physical Examination: General: Awake, alert, oriented x 3 and cooperative, seated upright in the ED bed, fatigued, mildly pale appearing. Skin: Normal color, normal turgor, no icterus, no cyanosis except for occasional staged ecchymoses as well as bilateral lower extremity venous stasis skin changes/dermatitis. HEENT: AT/NC, EOMI, PERRLA, moderately dry MM, no carotid bruits or JVD noted, + SM. Lungs: Diminished, greater bases, appropriate effort, no rales, ronchi or wheezing. Heart: Currently regular rate and rhythm; no gallop, rub audible. Abdomen: Soft, obese, NTTP, ND, hyperactive BS, no HSM. Extremities: No cyanosis, no clubbing, see skin, no marked pitting edema present Neurological: Patient awake, alert, oriented as noted, cognitive function appears baseline intact; pupils equally reactive to light and accommodation, cranial nerves II-XII grossly normal, moving all 4 extremities, no focal deficits, strength moderately to severely global decreased secondary to acute presentation and complaint. Psychiatric: Affect appears flat, fatigued, no acute evidence of depressive or anxiety feelings. Results Lab / Micro Data Result Diagrams: 09/20/22 18:00 09/20/22 11:54 Labs: Laboratory Results - last 24 hr 09/20/22 11:54: WBC 8.6, RBC 2.97 L, Hgb 8.7 L, Hct 28.9 L, MCV 97.3, MCH 29.3, MCHC 30.1 L, RDW Std Deviation 52.6 H, RDW Coeff of Kamar 14.9 H, Plt Count 290, MPV 10.4, Immature Gran % (Auto) 0.400, Neut % (Auto) 59.2, Lymph % (Auto) 27.5, [place] % (Auto) 6.9, Eos % (Auto) 5.4 H, Baso % (Auto) 0.6, Absolute Neuts (auto) 5.1, Absolute Lymphs (auto) 2.36, Nucleated RBC % 0 09/20/22 11:54: Sodium 138, Potassium 4.0, Chloride 110 H, Carbon Dioxide 21.0, Anion Gap 7, BUN 21 H, Creatinine 2.16 H, Estim Creat Clear Calc 16.20, Est GFR (MDRD) Af Amer 28 L, Est GFR (MDRD) Non-Af 23 L, BUN/Creatinine Ratio 9.7 L, Glucose 121 H, Calcium 8.4 L, Troponin I High Sens 21 09/20/22 14:50: Troponin I High Sens 23 Micro: Microbiology 09/20/22 14:50 Stool Stool Occult Blood (NIURKA) - Final Occult Blood Positive Radiology Impression Chest X-Ray 09/20/22 12:15 IMPRESSION: Cardiomegaly and CHF. Small right pleural effusion. Electronically Signed: Brandyn Cheng MD at 12:39 EST , Assessment & Plan Assessment/Plan (1) GI bleed: PLAN: Plan The patient is a 77 y/o F w/ PMHx: Chronic BL LE Edema/Lymphedema, Chronic normocytic anemia, HTN, HLD, Diabetes mellitus type II, CAD s/p PCI and CABG, Asthma w/ Allergic rhinitis, GERD, CKD stage IV (baseline Cr 1.6-2.4), Obesity, Hypothyroidism, Chronic systolic and diastolic CHF/Ischemic cardiomyopathy, Chronic debility using a cane baseline, recent ED evaluation 09/18/22 secondary to ongoing UTI type symptoms, recently completed bactrim outpatient regimen with ongoing flank discomfort/dysuria at that time discharge on ciprofloxacin who now represents to the [facility] ED on 09/20/22 with history of central chest discomfort that radiated up towards her neck which resolved the evening prior however she had another episode this morning with recent cardiac evaluation outpatient with future plan stress testing and echocardiogram but this is yet to be arranged secondary to some ride difficulties in addition to dyspnea, worse with exertion prompting eventual ED evaluation. #1. Acute on Chronic normocytic anemia secondary to Acute Blood Loss Anemia secondary to Acute GI Bleed: Admission hemoglobin 8.7, prior baseline noted primarily 10-11, last noted 08/28/2020 to 10.3 just prior to recent 09/18/22 presentation with Hgb 9 at that time, no history of hematuria or altered stool appearance, will admit to PCU given chest pain complaints although of note recent 09/18/22 visit with unremarkable EKG, normal troponins and again her similar, maintain on judicious IVFs, obtain serial H+H, obtain T+S w/ cross for PRBC administration if appropriate, maintain on IV PPI. Given notable PCI history on plavix and ASA with most recent PCI 2019 will temporarily hold with GI consulted, resume as soon as able. Patient's cardiology team, Dr. Win was contacted and her case reviewed with amenability to holding off on stress t esting given her acute presentation and agreement with temporarily hold on her antiplatelet therapy pending GI evaluation. #2. Acute Renal Insufficiency on Chronic Kidney Disease Stage IV: Admission BUN/Cr 21/2.16, was recently 09/18/22 22/2.43, baseline renal function over 2020- 22 noted to be 1.6-2.4 however primarily more so 1.6-1.8 with last noted previous to this 08/28/2022 1.85 just prior to the prior ED evaluation thus do suspect some mild renal insufficiency, if increases further low threshold to hold nephrotoxic regimen, repeat BMP in AM. #3. Recent Acute Complicated UTI Ruled Out: Recent ED evaluation 09/18/22 secondary to ongoing UTI type symptoms, recently completed bactrim outpatient regimen with ongoing flank discomfort/dysuria at that time, discharged on cipro regimen however, UCx with noted mixed organsims 11,000-25,000 no evidence notable UTI, will hold further regimen. #4. Acute Chest pain with underlying CAD: s/p 6 vessel bypass 2007->2015 NSTEMI w/ PCI mid RCA and proximal RCA as well as angioplasty of the saphenous vein graft to the posterior descending artery->10/2019 NSTEMI w/ patent HEART to LAD and 80% stenosis in the SVG to diagonal 1, other grafts were felt to be occluded w/ PCI of the saphenous vein graft to the first diagonal vessel and also the n ative left circumflex artery KATEY->07/2022 OSH with CHF exac/PNA/Flu/UTI/NSTEMI w/ EF 60%->44%, no catheterization at that time. Will temporarily hold aspirin, plavix given acute presentation, continue home statin, metoprolol, not on VIDA inhibitor/ARB secondary to renal disease. Will place on a monitored bed to assure no acute myocardial infarction with serial cardiac enzymes and EKGs. Patient's cardiology team, Dr. Win was contacted and her case reviewed with amenability to holding off on stress testing given her acute presentation and agreement with temporarily hold on her antiplatelet therapy pending GI evaluation. #5. Chronic systolic CHF/cardiomyopathy, unclear type: CXR reported ca rdiomegaly and CHF; however, appears compensated, more concerned for dyspnea from GI bleed with acute blood loss anemia. As noted previously recent 07/2022 evaluation with reduced EF at that time from 60% to 44%, unclear specific etiology, following with cardiology, will temporarily hold aspirin, Plavix given acute presentation, continue home statin, metoprolol, not on VIDA inhibitor/ARB secondary to renal disease, temporarily holding spironolactone. Judiciously hydrate given history and CXR appearance. May always diuresis if necessary. #6. Diabetes mellitus type II: Hold oral home regimen, clears to NPO at midnight status given #1, accu checks w/ ISS. #7. Chronic asthma with allergic rhinitis: Will hold home inhaler and transition to ATC duoneb in the interim, will have as needed albuterol, continue patient home Singulair regimen. #8. Hypertension: Continue home regimen including metoprolol, temporarily holding spironolactone given mild renal insufficieny, add back once appropriate, PRN hydralazine. #9. Hyperlipidemia: We will continue patient on statin therapy. #10. Hypothyroidism: We will continue patient on levothyroxine regimen. #11. Obesity: Weight loss and lifestyle changes encouraged. #12. GERD: Maintain on IV PPI. #13. Chronic BL LE edema/lymphedema: Will place snug VIDA wraps with elevation. #14. Gout: We will continue patient home allopurinol regimen. #15. DVT prophylaxis: SCDs, hold chemoprophylaxis given acute presentation #1. #16. CODE status: Patient MARK is her daughter and living will is currently in place. Discussed CODE status at length including difference between FULL code, DNR-CCA and DNR-CC status. Following discussions about the differences in these status, requested Full Code status. Advanced Care Planning Face to Face Time: 17 minutes. Admission Evaluation Time spent evaluating chart, patient history, patient evaluation, care planning and discussion with specialists: 75 minutes. Charges/Coding Visit Charges Inpatient E&M: 76416 Init Hosp L3 Procedures Hospitalists Procedures: 64345 Advncd Care Plan 30 Min
[2022-09-20] MEDS: Pravastatin 80 MG Tablet PO (21:02)
[2022-09-20] MEDS: Metoprolol Tartrate 50 MG Tablet PO (21:02)
[2022-09-20 21:51] LABS: Bedside Glucose 168 mg/dL (74-106)
[2022-09-20 22:28] LABS: Hematocrit 28.6 % (37-47)
[2022-09-20] MEDS: Insulin Lispro 100 UNIT/ML INSULN.PEN SC (23:35)
[2022-09-21] VITALS (15 sets, daily range): BP systolic 129–153; BP diastolic 43–71; PULSE 56–88; RESP 16–19; TEMP 36.1–37.1; O2SAT 93–100; BMI 36.6
[2022-09-21] MEDS: Ipratropium/Albuterol Sulfate 3 ML AMPUL.NEB INHALATION ×5 (00:10→19:59)
[2022-09-21 00:11] LABS: Bedside Glucose 164 mg/dL (74-106)
[2022-09-21 02:01] LABS: Hematocrit 26.2 % (37-47); Hemoglobin 8.2 g/dL (12.0-15.0)
[2022-09-21] MEDS: 0.9% Normal Saline 1,000 ML 75 ML IV ×2 (04:43→18:05)
--- NOTE | 2022-09-21 05:55 | EKG12_ITS ---
Test Reason : admission ekg Blood Pressure : / mmHG Vent. Rate : 065 BPM Atrial Rate : 065 BPM P-R Int : 156 ms QRS Dur : 104 ms QT Int : 446 ms P-R-T Axes : 023 041 111 degrees QTc Int : 463 ms Normal sinus rhythm ST & T wave abnormality, consider lateral ischemia Abnormal ECG Confirmed by CHERI DUQUE, NELA ([id number]), scientific publications editor SUKHDEEP CONTRERAS ([id number]) on 09/25/2022 10:00:47 AM Referred By: Ravinder Confirmed By:NELA ALONZO MD
[2022-09-21 06:25] LABS: Bedside Glucose 114 mg/dL (74-106)
[2022-09-21 06:27] LABS: Absolute Neutrophil Count 5.4 X10^3/uL (2.0-7.7); Basophil# 0.06 X10^3/uL; Basophil% 0.6 % (0-1); Eosinophil# 0.43 X10^3/uL; Eosinophils% 4.5 % (0-5); Hematocrit 26.5 % (37-47); Hemoglobin 8.3 g/dL (12.0-15.0); Lymphocyte % 32.3 % (19-41); Mean Corp Hgb Conc 31.3 g/dL (32-36); Mean Corpuscular Hgb 29.7 pg (27.0-32.0); Mean Platelet Vol. 10.1 fl (6.2-12.0); Monocyte# 0.61 X10^3/uL; Monocyte% 6.4 % (0-10); NRBC Flagged by Analyzer 0 % (0-5); Neutrophil # 5.36 X10^3/uL (2.7-7.7); Neutrophil % 55.9 % (47-70); Platelet Count 283 K/mm3 (150-450); RBC Distribution Width CV 14.9 % (11.6-14.6); RBC Distribution Width SD 51.9 fl (35.1-43.9); Red Blood Count 2.79 M/mm3 (4.2-5.4); White Blood Count 9.6 K/mm3 (4.4-11.0)
[2022-09-21 06:46] LABS: International Normalized Ratio 1.2; Prothrombin Time (Protime)PT. 14.8 SECONDS (11.7-14.9)
[2022-09-21 06:58] LABS: ALB/GLOB Ratio 1.1 RATIO (0.9-2.4); AST(SGOT) 12 U/L (15-37); Alanine Aminotransfer ALT/SGPT 12 U/L (13-56); Albumin, Serum 3.4 g/dL (3.2-5.0); Alkaline Phosphatase 81 U/L (45-117); Anion Gap 7 (5-15); BUN 20 mg/dL (7-18); BUN/Creat Ratio 9.3 RATIO (10-20); Calcium,Total 8.3 mg/dL (8.5-10.1); Chloride 110 mmol/L (98-107); Cholesterol 137 mg/dL (200); Creatinine, Serum 2.14 mg/dL (0.55-1.02); EST Glomerular Filtration Rate 24 mL/min (>60); Est Glom Filt Rate - Afr Amer 29 mL/min (>60); Estimated Creatinine Clearance 16.35 ml/min; Globulin 3.2 g/dL (2.2-4.2); Glucose 111 mg/dL (74-106); High Density Lipoprotein 41 mg/dL; Potassium 3.9 mmol/L (3.5-5.1); Protein, Total 6.6 g/dL (6.4-8.2); Sodium Level 139 mmol/L (136-145); Triglycerides 112 mg/dL; Very Low Density Lipoprotein 22 mg/dL (5-40)
[2022-09-21 08:04] LABS: Hemoglobin A1c 5.7 % (3.8-5.6)
--- NOTE | 2022-09-21 09:14 | OP.CCLET_ITS ---
09/21/2022 Tabatha Diaz Re : Upper GI endoscopy procedure for Adela Marsh Dear Joe This procedure was performed on Wednesday, September 21, 2022. My impressions and recommendations are as follows: Impressions : - LA Grade B reflux esophagitis. Biopsied. - Medium-sized hiatal hernia. 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 Treated with a heater probe. - No gross lesions in the second portion of the duodenum. Recommendations : - [facility]. - Advance diet as tolerated. - No aspirin, ibuprofen, naproxen, or other non-steroidal anti-inflammatory drugs for 5 days after biopsy. - Repeat upper endoscopy in 3 months for surveillance. - Use Protonix (pantoprazole) 40 mg PO daily for 3 months. My findings are described in the full procedure note, which is enclosed. If I can be of further assistance, please feel free to contact me at . Sincerely, Ortiz Hernández, 09/21/2022 9:14:09 AM This report has been signed electronically.
--- NOTE | 2022-09-21 09:14 | OP.EGD_ITS ---
Patient Name: Adela Marsh Procedure Date: 09/21/2022 8:36 AM Date of : 1945 Age: 77 Procedure: Upper GI endoscopy Indications: Iron deficiency anemia, Melena Providers: Ortiz Hernández DO Medicines: Monitored Anesthesia Care Patient Profile: This is a 77 year old female. Refer to note in patient chart for documentation of history and physical. Patient has symptoms of acute abdominal cramping and acute epigastric abdominal pain. Complications: No immediate complications. Procedure: Pre-Anesthesia Assessment: - Prior to the procedure, a History and Physical was performed, and patient medications and allergies were reviewed. The risks and benefits of the procedure and the sedation options and risks were discussed with the patient. All questions were answered and informed consent was obtained. Patient identification and proposed procedure were verified in the pre-procedure area. Mental Status Examination: alert and oriented. Airway Examination: normal oropharyngeal airway and neck mobility. Respiratory Examination: clear to auscultation. CV Examination: normal. Prophylactic Antibiotics: The patient does not require prophylactic antibiotics. Prior Anticoagulants: The patient has taken no previous anticoagulant or antiplatelet agents. After reviewing the risks and benefits, the patient was deemed in satisfactory condition to undergo the procedure. The anesthesia plan was to use monitored anesthesia care (MAC). Immediately prior to administration of medications, the patient was re-assessed for adequacy to receive sedatives. The heart rate, respiratory rate, oxygen saturations, blood pressure, adequacy of pulmonary ventilation, and response to care were monitored throughout the procedure. The physical status of the patient was re-assessed after the procedure. After obtaining informed consent, the endoscope was passed under direct vision. Throughout the procedure, the patient's blood pressure, pulse, and oxygen saturations were monitored continuously. The gastroscope was introduced through the mouth, and advanced to the second part of duodenum. The upper GI endoscopy was accomplished without difficulty. The patient tolerated the procedure well. Scope In: 9:02:29 AM Scope Out: 9:06:56 AM Total Procedure Duration Time 0 hours 4 minutes 27 seconds Findings: LA Grade B (one or more mucosal breaks greater than 5 mm, not extending between the tops of two mucosal folds) esophagitis with no bleeding was found 35 to 37 cm from the incisors. Biopsies were taken with a cold forceps for histology. Verification of patient identification for the specimen was done. Estimated blood loss was minimal. A medium-sized hiatal hernia was present. Four 5 mm bleeding angiodysplastic lesions were found in the cardia and in the gastric body. Coagulation for hemostasis using heater probe was successful. Estimated blood loss was minimal. No gross lesions were noted in the second portion of the duodenum. Impression: - LA Grade B reflux esophagitis. Biopsied. - Medium-sized hiatal hernia. 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 Treated with a heater probe. - No gross lesions in the second portion of the duodenum. Recommendation: - Return patient to [facility] for ongoing care. - Advance diet as tolerated. - No aspirin, ibuprofen, naproxen, or other non-steroidal anti-inflammatory drugs for 5 days after biopsy. - Repeat upper endoscopy in 3 months for surveillance. - Use Protonix (pantoprazole) 40 mg PO daily for 3 months. Procedure Code(s): --- Professional --- 35006, 59, Esophagogastroduodenoscopy, flexible, transoral; with control of bleeding, any method 98678, 51, Esophagogastroduodenoscopy, flexible, transoral; with biopsy, single or multiple CPT copyright 2017 [employer]. All rights reserved. The codes documented in this report are preliminary and upon railcar carpenter review may be revised to meet current compliance requirements. Ortiz Hernández DO 09/21/2022 9:14:09 AM This report has been signed electronically. Number of Addenda: 0 Note Initiated On: 09/21/2022 8:36 AM
--- NOTE | 2022-09-21 10:00 | PN.HOSP_ITS ---
Subjective Subjective Follow-up severe anemia Patient is a 77-year-old lady who was sent to the ED by her primary care physician complaining of exertional dyspnea. Found to be anemic with hemoglobin of 8.7 admitted to monitored bed with consultation placed to GI Objective Data Objective Data Vital Signs: Vital Signs Temp Pulse Resp BP Pulse Ox O2 Del Method 97.6 F L 86 16 144/52 H 99 Room Air 09/21/22 09:30 09/21/22 09:30 09/21/22 09:30 09/21/22 09:30 09/21/22 09:30 09/21/22 09:30 Oxygen Delivery Method Room Air Weight: 88.3 kg Body Mass Index (BMI) 36.6 Intake & Output: Intake and Output for Last 24 Hours 09/19/22 09/20/22 09/21/22 23:59 23:59 23:59 Intake Total 110 / 110 850 / 850 Balance 110 / 110 850 / 850 Lab / Micro Data Result Diagrams: 09/21/22 06:14 09/21/22 06:14 Labs: Laboratory Results - last 24 hr 09/20/22 11:54: WBC 8.6, RBC 2.97 L, Hgb 8.7 L, Hct 28.9 L, MCV 97.3, MCH 29.3, MCHC 30.1 L, RDW Std Deviation 52.6 H, RDW Coeff of Kamar 14.9 H, Plt Count 290, MPV 10.4, Immature Gran % (Auto) 0.400, Neut % (Auto) 59.2, Lymph % (Auto) 27.5, [place] % (Auto) 6.9, Eos % (Auto) 5.4 H, Baso % (Auto) 0.6, Absolute Neuts (auto) 5.1, Absolute Lymphs (auto) 2.36, Nucleated RBC % 0 09/20/22 11:54: Sodium 138, Potassium 4.0, Chloride 110 H, Carbon Dioxide 21.0, Anion Gap 7, BUN 21 H, Creatinine 2.16 H, Estim Creat Clear Calc 16.20, Est GFR (MDRD) Af Amer 28 L, Est GFR (MDRD) Non-Af 23 L, BUN/Creatinine Ratio 9.7 L, Glucose 121 H, Calcium 8.4 L, Troponin I High Sens 21 09/20/22 14:50: Troponin I High Sens 23 01/13/23 14:50: Magnesium 1.9 09/20/22 15:54: Blood Type A POSITIVE, Antibody Screen NEGATIVE 09/20/22 17:27: POC Glucose 128 H 09/20/22 18:00: Hgb 9.3 L, Hct 28.9 L 09/20/22 18:00: Troponin I High Sens 20 09/20/22 20:55: POC Glucose 168 H 09/20/22 22:15: Hgb 9.0 L, Hct 28.6 L 09/20/22 23:34: POC Glucose 164 H 09/21/22 01:52: Hgb 8.2 L, Hct 26.2 L 09/21/22 06:04: POC Glucose 114 H 09/21/22 06:14: WBC 9.6, RBC 2.79 L, Hgb 8.3 L, Hct 26.5 L, MCV 95.0, MCH 29.7, MCHC 31.3 L, RDW Std Deviation 51.9 H, RDW Coeff of Kamar 14.9 H, Plt Count 283, MPV 10.1, Immature Gran % (Auto) 0.300, Neut % (Auto) 55.9, Lymph % (Auto) 32.3, [place] % (Auto) 6.4, Eos % (Auto) 4.5, Baso % (Auto) 0.6, Absolute Neuts (auto) 5.4, Absolute Lymphs (auto) 3.10, Nucleated RBC % 0 09/21/22 06:14: Sodium 139, Potassium 3.9, Chloride 110 H, Carbon Dioxide 22.0, Anion Gap 7, BUN 20 H, Creatinine 2.14 H, Estim Creat Clear Calc 16.35, Est GFR (MDRD) Af Amer 29 L, Est GFR (MDRD) Non-Af 24 L, BUN/Creatinine Ratio 9.3 L, Glucose 111 H, Calcium 8.3 L, Total Bilirubin 0.60, AST 12 L, ALT 12 L, Alkaline Phosphatase 81, Total Protein 6.6, Albumin 3.4, Globulin 3.2, Albumin/Globulin Ratio 1.1, Triglycerides 112, Cholesterol 137, LDL Cholesterol 74, VLDL Cholesterol 22, HDL Cholesterol 41, TSH 12.10 H 09/21/22 06:14: PT 14.8, INR 1.2, APTT 31.0 09/21/22 06:14: Hemoglobin A1c 5.7 H Micro: Microbiology 09/20/22 14:50 Stool Stool Occult Blood (NIURKA) - Final Occult Blood Positive Radiography Diagnostic Testing: Radiology Impression Chest X-Ray 09/20/22 12:15 IMPRESSION: Cardiomegaly and CHF. Small right pleural effusion. Electronically Signed: Brandyn Cheng MD at 12:39 EST , Physical Exam Narrative GENERAL: cooperative HEENT: Atraumatic; normocephalic EYES; Anicteric, Normal Conjunctiva NECK; supple, normal thyroid, RESPIRATORY: Diminished to auscultation CARDIOVASCULAR: Regular S1 S2, GI: soft, normoactive bowel sounds, : No Renal angle tenderness; EXTREMITIES: trace edema, no clubbing, MUSCULOSKELETAL: no muscle wasting NEURO: Awake; no lateralizing signs. SKIN: No Rash PSYCH; Flat affect Assessment & Plan Assessment/Plan (1) GI bleed: PLAN: Plan Patient is a 77-year-old lady who was sent to the ED by her primary care last gutierrez complaining of exertional dyspnea. Found to be anemic with hemoglobin of 8.7 admitted to monitored bed with consultation placed to GI 1. Anemia secondary to acute on chronic blood loss anemia ? Patient admitted to a monitored bed consult placed to GI patient underwent EGD by Dr. Hernández on 09/21/2022 findings included - LA Grade B reflux esophagitis.? Biopsied. Medium-sized hiatal hernia. 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 Treated with a heater?probe. No gross lesions in the second portion of the duodenum.. Recommended initiating PPI and avoiding NSAIDs as well as aspirin. Patient currently being monitored with daily H&H with plans to transfuse if patient becomes symptomatic or hemoglobin falls below 7. 2. Chronic kidney disease stage IV ? Kidney function close to baseline monitor with daily BMPs 3.? Coronary artery disease ?With previous CABG as well as subsequent PCI with KATEY. Patient is on dual antiplatelet therapy with aspirin and Plavix held in view of patient presentation GI bleed plan is to discharge patient on Plavix but discontinue aspirin 4.? Dyslipidemia -Patient is on pravastatin at home substituted with atorvastatin during her hospital stay 5.? Hypertension - Blood pressure controlled, home medications continued with dose adjustment as needed 6.? Diabetes mellitus type II -patient's oral hypoglycemics held. Placed on long acting insulin, Accu-Cheks a.c. and at bedtime and covered with sliding scale insulin 7.? Gout ?Patient is on allopurinol did continue 8.? Class II obesity with BMI of 36.8 -patient was counseled on weight reduction 9.? Hypothyroidism - Patient is on levothyroxine home dose continued 10.? Chronic congestive heart failure with reduced ejection fraction ? Echo obtained on 09/20/2022 demonstrated Normal LV size.The estimated ejection fraction is 45 %.Mild global left ventricular systolic dysfunction. Pulmonary artery systolic pressure is 54 mmHg. Patient is on furosemide did continue 11.? GERD ? Patient was on PPI prior to being admitted omeprazole substituted with Protonix 12. DVT prophylaxis ? Bilateral SCDs Time spent in the patient's overall evaluation,decision-making process, review of diagnostic data, adjustment of management, discussion with other providers, nursing nursing and ancillary staff involved in patient's care documentation, 58 Minutes Charges/Coding Visit Charges Inpatient E&M: 39621 Init Hosp L3
[2022-09-21] MEDS: Montelukast 10 MG Tablet PO (11:16)
[2022-09-21] MEDS: Metoprolol Tartrate 50 MG Tablet PO ×2 (11:16→20:35)
[2022-09-21] MEDS: Folic Acid 1 MG Tablet PO (11:16)
[2022-09-21] MEDS: Loratadine 10 MG Tablet PO (11:16)
[2022-09-21] MEDS: Levothyroxine 100 MCG Tablet PO (11:16)
[2022-09-21] MEDS: Allopurinol 100 MG Tablet PO (11:17)
[2022-09-21 11:45] LABS: Bedside Glucose 96 mg/dL (74-106)
--- NOTE | 2022-09-21 12:50 | CASEMGMT ---
WILL LAZO DC Planning Assessment: Face to Face with pt for initial transition planning/care coordination. WILL LAZO introduced self and role at [facility]. Pt voiced understanding. Pt sitting up in chair, alert, and answering questions appropriately. Care providers, pharmacy, and demographics verified. Admission dx: GI Bleed, ABLA PCP: Joe Specialists: Dr. Win (Cardio) Preferred Pharmacy: [facility] Insurance: [place] MCR w/prescription benefit Living Will/HPOA: Yes, pt states she has completed these but cannot recall who she listed as her HPOA. Encouraged pt to have copies brought to [facility] so we can include them in her EMR. LNOK: Son Gino, Daughter Amy Living arrangements: pt lives in a single story home without any steps to enter. Her daughter, REYNA, and grandson (21yo) reside with her. Pt states she is independent with ADLs including household tasks. Pt states she completes her own laundry and prepares meals. Family can assist if needed although both daughter and REYNA work. Pt's grandson is home the majority of the time. Pt states her home is handicapped/wheelchair accessible due to a previous family member being w/c bound. This includes the bathroom/shower. Transportation: pt drives, has a handicap placard, and states she uses the motorized scooters at the stores to grocery shop. Family can also transport if needed. DME: grab bars, cane, walker SNF: Pt was at [facility] after an admission to [facility] in 07/2022. Pt states she was at [facility] x2 weeks. C: denies Plan: pt plans to return home at discharge with the support of her family. Pt denies any discharge needs. Wendy Campbell RN CM
[2022-09-21 17:20] LABS: Bedside Glucose 121 mg/dL (74-106)
[2022-09-21] MEDS: Pravastatin 80 MG Tablet PO (20:35)
[2022-09-21] MEDS: Insulin Lispro 100 UNIT/ML INSULN.PEN SC (21:08)
[2022-09-21 21:30] LABS: Bedside Glucose 175 mg/dL (74-106)
[2022-09-22] VITALS (10 sets, daily range): BP systolic 138–178; BP diastolic 47–73; PULSE 61–97; RESP 16–18; TEMP 36.8–37.2; O2SAT 97–100
[2022-09-22] MEDS: Ipratropium/Albuterol Sulfate 3 ML AMPUL.NEB INHALATION ×4 (00:59→19:08)
[2022-09-22] MEDS: Levothyroxine 100 MCG Tablet PO (04:55)
[2022-09-22] MEDS: 0.9% Normal Saline 1,000 ML 75 ML IV ×2 (06:18→19:38)
[2022-09-22 07:00] LABS: Bedside Glucose 129 mg/dL (74-106)
--- NOTE | 2022-09-22 07:42 | PN.HOSP_ITS ---
Subjective Subjective Follow-up anemia ? There is any further drop in patient hemoglobin level. Plan is for patient to be monitored for additional 24 hours prior to any possible discharge Objective Data Objective Data Vital Signs: Vital Signs Temp Pulse Resp BP Pulse Ox O2 Del Method 98.9 F 76 16 144/71 H 100 Room Air 09/22/22 03:20 09/22/22 03:20 09/22/22 03:20 09/22/22 03:20 09/22/22 03:20 09/22/22 03:20 Oxygen Delivery Method Room Air Weight: 88.7 kg Body Mass Index (BMI) 36.6 Intake & Output: Intake and Output for Last 24 Hours 09/20/22 09/21/22 09/22/22 23:59 23:59 23:59 Intake Total 110 / 110 2978.75 / 2978.75 717.5 / 717.5 Balance 110 / 110 2978.75 / 2978.75 717.5 / 717.5 Lab / Micro Data Result Diagrams: 09/22/22 08:01 09/22/22 08:01 Labs: Laboratory Results - last 24 hr 09/21/22 06:14: Hemoglobin A1c 5.7 H 09/21/22 11:23: POC Glucose 96 09/21/22 16:58: POC Glucose 121 H 09/21/22 20:33: POC Glucose 175 H 09/22/22 06:17: POC Glucose 129 H Micro: Microbiology 09/20/22 14:50 Stool Stool Occult Blood (NIURKA) - Final Occult Blood Positive Radiography Diagnostic Testing: Radiology Impression Echocardiogram 09/20/22 16:43 Interpretation Summary Normal LV size. The estimated ejection fraction is 45 %. Mild global left ventricular systolic dysfunction. Pulmonary artery systolic pressure is 54 mmHg. Contrast injection was performed. Ordering Physician: Jemma Castellon Performed By: Alphonso Orozco RCS Physical Exam Narrative GENERAL: cooperative HEENT: Atraumatic; normocephalic EYES; Anicteric, Normal Conjunctiva NECK; supple, normal thyroid, RESPIRATORY: Diminished to auscultation CARDIOVASCULAR: Regular S1 S2, GI: soft, normoactive bowel sounds, : No Renal angle tenderness; EXTREMITIES: trace edema, no clubbing, MUSCULOSKELETAL: no muscle wasting NEURO: Awake; no lateralizing signs. SKIN: No Rash PSYCH; Flat affect Assessment & Plan Assessment/Plan (1) GI bleed: PLAN: Plan Patient is a 77-year-old lady who was sent to the ED by her primary care physician complaining of exertional dyspnea. Found to be anemic with hemoglobin of 8.7 admitted to monitored bed with consultation placed to GI 1. Anemia secondary to acute on chronic blood loss anemia ? Patient admitted to a monitored bed consult placed to GI patient underwent EGD by Dr. Hernández on 09/21/2022 findings included - LA Grade B reflux esophagitis.? Biopsied. Medium-sized hiatal hernia. 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 Treated with a heater?probe. No gross lesions in the second portion of the duodenum.. Recommended initiating PPI and avoiding NSAIDs as well as aspirin. Patient currently being monitored with daily H&H with plans to transfuse if patient becomes symptomatic or hemoglobin falls below 7. -09/22/2022; There is any further drop in patient hemoglobin level. Plan is for patient to be monitored for additional 24 hours we will repeat H&H in a.m. prior to any possible discharge 2. MONI superimposed on chronic kidney disease stage III ? Kidney function close to baseline monitor with daily BMPs 3.? Coronary artery disease ?With previous CABG as well as subsequent PCI with KATEY. Patient is on dual antiplatelet therapy with aspirin and Plavix held in view of patient pres entation GI bleed plan is to discharge patient on Plavix but discontinue aspirin 4.? Dyslipidemia -Patient is on pravastatin at home substituted with atorvastatin during her hospital stay 5.? Hypertension - Blood pressure controlled, home medications continued with dose adjustment as needed 6.? Diabetes mellitus type II -patient's oral hypoglycemics held. Placed on long acting insulin, Accu-Cheks a.c. and at bedtime and covered with sliding scale insulin 7.? Gout ?Patient is on allopurinol did continue 8.? Class II obesity with BMI of 36.8 -patient was counseled on weight reduction 9.? Hypothyroidism - Patient is on levothyroxine home dose continued 10.? Chronic congestive heart failure with reduced ejection fraction ? Echo obtained on 09/20/2022 demonstrated Normal LV size.The estimated ejection fraction is 45 %.Mild global left ventricular systolic dysfunction. Pulmonary artery systolic pressure is 54 mmHg. Patient is on furosemide did continue 11.? GERD ? Patient was on PPI prior to being admitted omeprazole substituted with Protonix 12. DVT prophylaxis ? Bilateral SCDs Time spent in the patient's overall evaluation,decision-making process, review of diagnostic data, adjustment of management, discussion with other providers, nursing nursing and ancillary staff involved in patient's care documentation, 38 Minutes Charges/Coding Visit Charges Inpatient E&M: 40843 [facility] Hosp L2
[2022-09-22] MEDS: Folic Acid 1 MG Tablet PO (08:16)
[2022-09-22] MEDS: Allopurinol 100 MG Tablet PO (08:16)
[2022-09-22 08:20] LABS: Absolute Lymphocyte Count 2.82 X10^3/uL (0.83-4.51); Absolute Neutrophil Count 5.7 X10^3/uL (2.0-7.7); Basophil# 0.05 X10^3/uL; Basophil% 0.5 % (0-1); Eosinophil# 0.38 X10^3/uL; Hematocrit 26.1 % (37-47); Hemoglobin 7.9 g/dL (12.0-15.0); Lymphocyte # 2.82 X10^3/ul (0.83-4.51); Lymphocyte % 29.4 % (19-41); Mean Corp Hgb Conc 30.3 g/dL (32-36); Mean Corpuscular Hgb 29.8 pg (27.0-32.0); Mean Corpuscular Volume 98.5 fL (81-99); Monocyte# 0.56 X10^3/uL; Monocyte% 5.8 % (0-10); NRBC Flagged by Analyzer 0 % (0-5); Neutrophil # 5.74 X10^3/uL (2.7-7.7); Neutrophil % 59.9 % (47-70); POSITIVE COUNT YES; Platelet Count 250 K/mm3 (150-450); RBC Distribution Width CV 15.2 % (11.6-14.6); RBC Distribution Width SD 54.9 fl (35.1-43.9); Red Blood Count 2.65 M/mm3 (4.2-5.4); White Blood Count 9.6 K/mm3 (4.4-11.0)
[2022-09-22 08:26] LABS: Anion Gap 4 (5-15); BUN 18 mg/dL (7-18); BUN/Creat Ratio 9.6 RATIO (10-20); Calcium,Total 7.9 mg/dL (8.5-10.1); Chloride 113 mmol/L (98-107); Creatinine, Serum 1.87 mg/dL (0.55-1.02); EST Glomerular Filtration Rate 28 mL/min (>60); Est Glom Filt Rate - Afr Amer 33 mL/min (>60); Estimated Creatinine Clearance 18.71 ml/min; Glucose 133 mg/dL (74-106); Magnesium 1.6 mg/dL (1.6-2.6); Phosphorus 2.4 mg/dL (2.5-4.9); Sodium Level 140 mmol/L (136-145)
[2022-09-22] MEDS: Montelukast 10 MG Tablet PO (09:04)
[2022-09-22 09:05] LABS: Differential Indicated SCAN CRITERIA MET
[2022-09-22 09:06] LABS: Differential Comment SCANNED; Platelet Morphology LARGE
[2022-09-22] MEDS: Metoprolol Tartrate 50 MG Tablet PO ×2 (09:07→20:44)
[2022-09-22 11:50] LABS: Bedside Glucose 139 mg/dL (74-106)
--- NOTE | 2022-09-22 16:45 | PN_ITS ---
Subjective Subjective Patient underwent endoscopy yesterday. She was discovered to have bleeding lesions in the stomach that were cauterized. No signs of bleeding today but her hemoglobin has dropped slightly. Objective Data Objective Data Vital Signs: Vital Signs Temp Pulse Resp BP Pulse Ox O2 Del Method 98.6 F 67 16 142/47 H 98 Room Air 09/22/22 09:10 09/22/22 13:49 09/22/22 13:49 09/22/22 09:10 09/22/22 09:10 09/22/22 14:00 Oxygen Delivery Method Room Air Weight: 195 lb 8.8 oz Body Mass Index (BMI) 36.6 Intake & Output: Intake and Output for Last 24 Hours 09/20/22 09/21/22 09/22/22 23:59 23:59 23:59 Intake Total 110 / 110 2978.75 / 2978.75 1627.5 / 1627.5 Balance 110 / 110 2978.75 / 2978.75 1627.5 / 1627.5 Lab / Micro Data Result Diagrams: 09/22/22 08:01 09/22/22 08:01 Labs: Laboratory Results - last 24 hr 09/21/22 16:58: POC Glucose 121 H 09/21/22 20:33: POC Glucose 175 H 09/22/22 06:17: POC Glucose 129 H 09/22/22 08:01: WBC 9.6, RBC 2.65 L, Hgb 7.9 L, Hct 26.1 L, MCV 98.5, MCH 29.8, MCHC 30.3 L, RDW Std Deviation 54.9 H, RDW Coeff of Kamar 15.2 H, Plt Count 250, MPV 10.0, Immature Gran % (Auto) 0.400, Neut % (Auto) 59.9, Lymph % (Auto) 29.4, [place] % (Auto) 5.8, Eos % (Auto) 4.0, Baso % (Auto) 0.5, Absolute Neuts (auto) 5.7, Absolute Lymphs (auto) 2.82, Nucleated RBC % 0, Differential Comment SCANNED, Plt Morphology Comment LARGE 09/22/22 08:01: Sodium 140, Potassium 4.0, Chloride 113 H, Carbon Dioxide 23.0, Anion Gap 4 L, BUN 18, Creatinine 1.87 H, Estim Creat Clear Calc 18.71, Est GFR (MDRD) Af Amer 33 L, Est GFR (MDRD) Non-Af 28 L, BUN/Creatinine Ratio 9.6 L, Glucose 133 H, Calcium 7.9 L, Phosphorus 2.4 L, Magnesium 1.6 09/22/22 11:20: POC Glucose 139 H Micro: Microbiology 09/20/22 14:50 Stool Stool Occult Blood (NIURKA) - Final Occult Blood Positive Physical Exam Narrative GENERAL: cooperative HEENT: Atraumatic; normocephalic EYES; Anicteric, Normal Conjunctiva NECK; supple, normal thyroid, RESPIRATORY: Diminished to auscultation CARDIOVASCULAR: Regular S1 S2, GI: soft, normoactive bowel sounds, : No Renal angle tenderness; EXTREMITIES: trace edema, no clubbing, MUSCULOSKELETAL: no muscle wasting NEURO: Awake; no lateralizing signs. SKIN: No Rash PSYCH; Flat affect Assessment & Plan Assessment/Plan (1) GI bleed: PLAN: Upper GI bleed status posttreatment. Continue PPI therapy. Continue to hold antiplatelet therapy. Agree with waiting to see what her hemoglobin continues to do. She may need a colonoscopy in the future. Charges/Coding Visit Charges Inpatient E&M: 73206 Subs Hosp L2
[2022-09-22] MEDS: Insulin Lispro 100 UNIT/ML INSULN.PEN SC ×2 (17:00→20:48)
[2022-09-22 17:01] LABS: Bedside Glucose 182 mg/dL (74-106)
[2022-09-22] MEDS: Pravastatin 80 MG Tablet PO (20:43)
[2022-09-22 23:16] LABS: Bedside Glucose 185 mg/dL (74-106)
[2022-09-23] VITALS (10 sets, daily range): BP systolic 138–151; BP diastolic 49–53; PULSE 65–80; RESP 16–20; TEMP 36.8–36.9; O2SAT 94–100
[2022-09-23] MEDS: Ipratropium/Albuterol Sulfate 3 ML AMPUL.NEB INHALATION ×4 (01:01→17:44)
[2022-09-23] MEDS: Albuterol 2.5 MG/3 ML VIAL.NEB. INHALATION (04:15)
[2022-09-23] MEDS: Levothyroxine 100 MCG Tablet PO (06:07)
[2022-09-23 06:30] LABS: Bedside Glucose 133 mg/dL (74-106)
[2022-09-23] MEDS: 0.9% Normal Saline 1,000 ML 75 ML IV (08:01)
[2022-09-23] MEDS: Allopurinol 100 MG Tablet PO (08:05)
[2022-09-23] MEDS: Montelukast 10 MG Tablet PO (08:05)
[2022-09-23] MEDS: Folic Acid 1 MG Tablet PO (08:05)
[2022-09-23] MEDS: Loratadine 10 MG Tablet PO (08:06)
[2022-09-23] MEDS: Metoprolol Tartrate 50 MG Tablet PO (08:07)
[2022-09-23 08:47] LABS: Absolute Lymphocyte Count 2.77 X10^3/uL (0.83-4.51); Absolute Neutrophil Count 5.8 X10^3/uL (2.0-7.7); Basophil# 0.04 X10^3/uL; Basophil% 0.4 % (0-1); Eosinophil# 0.37 X10^3/uL; Eosinophils% 3.8 % (0-5); Hematocrit 27.4 % (37-47); Hemoglobin 8.3 g/dL (12.0-15.0); Lymphocyte # 2.77 X10^3/ul (0.83-4.51); Lymphocyte % 28.7 % (19-41); Mean Corp Hgb Conc 30.3 g/dL (32-36); Mean Corpuscular Hgb 29.5 pg (27.0-32.0); Mean Corpuscular Volume 97.5 fL (81-99); Mean Platelet Vol. 10.2 fl (6.2-12.0); Monocyte# 0.65 X10^3/uL; Monocyte% 6.7 % (0-10); NRBC Flagged by Analyzer 0 % (0-5); Neutrophil # 5.79 X10^3/uL (2.7-7.7); Neutrophil % 60.1 % (47-70); Platelet Count 270 K/mm3 (150-450); RBC Distribution Width CV 15.3 % (11.6-14.6); RBC Distribution Width SD 54.7 fl (35.1-43.9); Red Blood Count 2.81 M/mm3 (4.2-5.4); White Blood Count 9.7 K/mm3 (4.4-11.0)
[2022-09-23 09:05] LABS: ALB/GLOB Ratio 0.9 RATIO (0.9-2.4); AST(SGOT) 9 U/L (15-37); Alanine Aminotransfer ALT/SGPT 11 U/L (13-56); Albumin, Serum 2.8 g/dL (3.2-5.0); Alkaline Phosphatase 71 U/L (45-117); Anion Gap 9 (5-15); BUN 16 mg/dL (7-18); Chloride 111 mmol/L (98-107); EST Glomerular Filtration Rate 33 mL/min (>60); Est Glom Filt Rate - Afr Amer 40 mL/min (>60); Estimated Creatinine Clearance 21.87 ml/min; Globulin 3.2 g/dL (2.2-4.2); Glucose 135 mg/dL (74-106); Potassium 3.7 mmol/L (3.5-5.1); Sodium Level 141 mmol/L (136-145)
--- NOTE | 2022-09-23 12:04 | CHAPLAIN ---
Type of Pastoral Visit _x__ Initial Visit ___ Follow-up Visit ___ On-call Visit ___ General Patient Visit ___ Spiritual Assessment ___ Family Conference ___ Bereavement ___ Rapid Response ___ Code Blue ___ Other (describe below) Pastoral Care Referral From _x__ Patient ___ Family ___ Nurse ___ Physician ___ Twister Doffer ___ Ear Flap Binder ___ Other (describe below) Sacrament/Intervention _x__ Active listening ___ Anointing ___ Bahai ___ Bereavement ___ Communion ___ Maryan exploration ___ ___ Life review _x__ Prayer ___ Reconciliation ___ Sacrament of Sick ___ Supportive presence ___ Wedding ___ Other (describe below) Pastoral Comments patient sitting up in chair but napping; pt is easily awakened by name; pt however does yawn throughout this visit and speaks of being so tired; pt answers all questions appropriately; pt mentions family support and has a maryan group; pt concern is for getting strength and ability to go home; prayer welcomed
--- NOTE | 2022-09-23 12:42 | PCM.PROGNOTE ---
Subjective Subjective Patient has not seen any signs or symptoms of GI bleeding. She was scheduled to be discharged yesterday but her hemoglobin had dropped down to 7.9. Her hemoglobin this morning is up to 8.3. She remains off of antiplatelet therapy and anticoagulation secondary to GI bleed. Objective Data Objective Data Vital Signs: Vital Signs Temp Pulse Resp BP Pulse Ox O2 Del Method 98.2 F 74 16 151/51 H 100 Room Air 09/23/22 08:15 09/23/22 08:15 09/23/22 08:15 09/23/22 08:15 09/23/22 08:15 09/23/22 08:15 Oxygen Delivery Method Room Air Weight: 196 lb 10.437 oz Body Mass Index (BMI) 36.6 Intake & Output: Intake and Output for Last 24 Hours 09/21/22 09/22/22 09/23/22 23:59 23:59 23:59 Intake Total 2978.75 / 2978.75 3697.5 / 3697.5 1518.75 / 1518.75 Balance 2978.75 / 2978.75 3697.5 / 3697.5 1518.75 / 1518.75 Lab / Micro Data Result Diagrams: 09/23/22 08:13 09/23/22 08:13 Labs: Laboratory Results - last 24 hr 09/22/22 16:39: POC Glucose 182 H 09/22/22 20:47: POC Glucose 185 H 09/23/22 06:09: POC Glucose 133 H 09/23/22 08:13: WBC 9.7, RBC 2.81 L, Hgb 8.3 L, Hct 27.4 L, MCV 97.5, MCH 29.5, MCHC 30.3 L, RDW Std Deviation 54.7 H, RDW Coeff of Kamar 15.3 H, Plt Count 270, MPV 10.2, Immature Gran % (Auto) 0.300, Neut % (Auto) 60.1, Lymph % (Auto) 28.7, [place] % (Auto) 6.7, Eos % (Auto) 3.8, Baso % (Auto) 0.4, Absolute Neuts (auto) 5.8, Absolute Lymphs (auto) 2.77, Nucleated RBC % 0 09/23/22 08:13: Sodium 141, Potassium 3.7, Chloride 111 H, Carbon Dioxide 21.0, Anion Gap 9, BUN 16, Creatinine 1.60 H, Estim Creat Clear Calc 21.87, Est GFR (MDRD) Af Amer 40 L, Est GFR (MDRD) Non-Af 33 L, BUN/Creatinine Ratio 10.0, Glucose 135 H, Calcium 8.0 L, Total Bilirubin 0.30, AST 9 L, ALT 11 L, Alkaline Phosphatase 71, Total Protein 6.0 L, Albumin 2.8 L, Globulin 3.2, Albumin/Globulin Ratio 0.9 Micro: Microbiology 09/20/22 14:50 Stool Stool Occult Blood (NIURKA) - Final Occult Blood Positive Physical Exam Narrative GENERAL: cooperative HEENT: Atraumatic; normocephalic EYES; Anicteric, Normal Conjunctiva NECK; supple, normal thyroid, RESPIRATORY: Diminished to auscultation CARDIOVASCULAR: Regular S1 S2, GI: soft, normoactive bowel sounds, : No Renal angle tenderness; EXTREMITIES: trace edema, no clubbing, MUSCULOSKELETAL: no muscle wasting NEURO: Awake; no lateralizing signs. SKIN: No Rash PSYCH; Flat affect Assessment & Plan Assessment/Plan (1) GI bleed: PLAN: Upper GI bleed status posttreatment. Continue PPI therapy. Continue to hold antiplatelet therapy. Agree with waiting to see what her hemoglobin continues to do. She may need a colonoscopy in the future. At this time patient does not want a colonoscopy. She can go back on mono antiplatelet therapy. Recommend to check iron, TIBC, transferrin, ferritin, reticulocyte count, LDH and CBC. Charges/Coding Visit Charges Inpatient E&M: 92473 Subs Hosp L2
[2022-09-23 12:50] LABS: Bedside Glucose 161 mg/dL (74-106)
--- NOTE | 2022-09-23 13:07 | DCINST_ITS ---
Discharge Instructions Diet Discharge Diet: 2000 mg Sodium Diet Activity Discharge Activity: Return to Normal Activity Follow Up Care Test Results: Test results from this visit will be discussed in further detail at your follow- up appointment, if applicable. Discharge Plan Admission Admit Date/Time: 09/20/22 15:52 Primary Reason for Your Visit: Acute GI bleed Attending Provider: Earlene Andrade Primary Care Provider: Tabatha Diaz Consulting Providers: Jemma Castellon ; Fritz Winston Instructions Additional Instructions / Restrictions: Take note of your medications. Follow-up with your primary care doctor within 1 week. Follow-up with gastroenterology, Dr. Hernández within 2 weeks Discharge Orders/Prescriptions Prescriptions: New pantoprazole 40 mg tablet,delayed release (DR/EC) 40 mg PO BID 30 Days Qty: 60 0RF Continued aspirin 81 mg tablet,delayed release (DR/EC) 81 mg PO QDAY clopidogrel 75 mg tablet 75 mg PO QDAY cetirizine [Zyrtec] 10 mg tablet 10 mg PO QDAY pravastatin 80 mg tablet 80 mg PO QHS glipizide 10 mg tablet 5 mg PO BID levothyroxine 100 mcg tablet 100 mcg PO DAILY Label Comments: TAKE 1 TABLET BY MOUTH ONCE DAILY allopurinol 100 mg tablet 100 mg PO DAILY Label Comments: TAKE 1 TABLET BY MOUTH ONCE DAILY spironolactone 25 mg tablet 25 mg PO DAILY folic acid 1 mg tablet 1 mg PO DAILY metoprolol tartrate 50 MG tablet 50 mg PO BID montelukast 10 MG tablet 10 mg PO DAILY Combivent Respimat 20-100 mcg/actuation mist 1 puff INHALATION Q6H ferrous sulfate 325 mg (65 mg iron) Tablet 325 mg PO DAILY Discontinued omeprazole 20 MG capsule 20 mg PO DAILY furosemide 40 mg tablet 40 mg PO DAILY Label Comments: TAKE 1 TABLET BY MOUTH ONCE DAILY ciprofloxacin HCl [Cipro] 250 mg tablet 250 mg PO Q12H Referrals / Follow Up: Tabatha Diaz MD [Primary Care Provider] - In 1 Week Ortiz Hernández DO [Med Staff - Active Staff] - Within 2 Weeks Disposition Disposition (needs filled in before D/C Order can be placed): Home, Self Care
--- NOTE | 2022-09-23 13:08 | DS.PCM_ITS ---
Providers Date of Admission: 09/20/22 Date of Discharge: 09/23/22 Primary Care Physician: Dr. Tabatha Diaz MD Consultations 09/20/22 16:43 Consult: Gastroenterology Routine Consulting Provider: [facility] Reason for Consult: Acute blood loss anemia, GI bleed EMERGENT Consult: No MD Notified: Yes Date Notified: 09/20/22 Time Notified: 15:57 Method of Notification: call Reason For Visit: GIB, CHEST PAIN Diagnosis Discharge Diagnosis (1) GI bleed: Status: Acute Code(s): K92.2 - Gastrointestinal hemorrhage, unspecified Plan 1. Acute on chronic blood loss anemia 2. MONI on CKD stage III 3. CAD 4. Hyperlipidemia 5. Hypertension 6. Type II DM 7. Gout 8. Obesity 9. GERD Medications at Discharge Home Medications metoprolol tartrate 50 mg tablet 50 mg PO BID HEART 12/17/13 montelukast 10 mg tablet 10 mg PO DAILY ASTHMA 12/17/13 aspirin 81 mg tablet,delayed release 81 mg PO QDAY HEART HEALTH 11/19/17 cetirizine 10 mg tablet (Zyrtec) 10 mg PO QDAY allergies 02/15/20 pravastatin 80 mg tablet 80 mg PO QHS CHOLESTEROL 02/15/20 allopurinol 100 mg tablet 100 mg PO DAILY GOUT 11/22/21 levothyroxine 100 mcg tablet 100 mcg PO DAILY THYROID 11/22/21 glipizide 10 mg tablet 5 mg PO BID DM 05/24/22 folic acid 1 mg tablet 1 mg PO DAILY SUPPLEMENT 08/28/22 spironolactone 25 mg tablet 25 mg PO DAILY HEART 08/28/22 ferrous sulfate 325 mg (65 mg iron) tablet 325 mg PO DAILY SUPPLEMENT 09/20/22 ipratropium 20 mcg-albuterol 100 mcg/actuation mist for inhalation (Combivent Respimat) 1 puff inhalation Q6H BREATHING 09/20/22 furosemide 40 mg tablet (Lasix) 40 mg PO DAILY 30 days #30 tabs 09/23/22 pantoprazole 40 mg tablet,delayed release 40 mg PO BID 30 days #60 tabs 09/23/22 Hospital Course Operations None Procedures EGD (09/08/2022 that showed LA grade B reflux esophagitis, biopsied, medium size hiatal hernia, for bleeding angiodysplastic lesion in the stomach, status post heater probe) Summary of Care Provided Minutes Spent on Discharge: 35 Hospital Course: 77-year-old female with multiple comorbidities significant for type II DM, hypertension, bilateral lower extremity edema, GERD, chronic combined CHF, not in acute exacerbation, who comes in with chest discomfort. 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 She was sent to the emergency room. Gastroenterology was consulted. 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 2D echo shows EF of 45%, mild global left ventricular systolic dysfunction. Patient was kept 1 more day because her hemoglobin dropped to 7.9 from 8.3. Repeat hemoglobin was 8.3. Iron stores showed a mixed picture with iron deficiency anemia. She received 1 dose of IV Venofer. She was discharged on oral iron. Discussed with gastroenterologyeva for patient to be discharged back on aspirin. Plavix has been held. Patient will need to follow-up closely with GI in with a primary care doctor. Physical Exam Narrative Physical exam: General: Alert, Oriented x3, Cooperative HEENT: Atraumatic Oral: Moist Mucosa Neck: Supple Lungs:Diminished to auscultation, few crackles at the bases Cardiovascular: HS I+II, regular, no murmurs Abdomen: Bowel Sounds Present, Soft, Non Tender Extremities: No edema Skin: No rashes, No breakdown Neurological: Grossly intact Psych/Mental Status: Appropriate Weight / BMI Weight Weight: 89.2 kg Body Mass Index (BMI) 36.6 ABG / Lab / Microbiology Data Result Diagrams: 09/23/22 08:13 09/23/22 08:13 Laboratory: Laboratory Results - last 24 hr 09/22/22 16:39: POC Glucose 182 H 09/22/22 20:47: POC Glucose 185 H 09/23/22 06:09: POC Glucose 133 H 09/23/22 08:13: WBC 9.7, RBC 2.81 L, Hgb 8.3 L, Hct 27.4 L, MCV 97.5, MCH 29.5, MCHC 30.3 L, RDW Std Deviation 54.7 H, RDW Coeff of Kamar 15.3 H, Plt Count 270, MPV 10.2, Immature Gran % (Auto) 0.300, Neut % (Auto) 60.1, Lymph % (Auto) 28.7, [place] % (Auto) 6.7, Eos % (Auto) 3.8, Baso % (Auto) 0.4, Absolute Neuts (auto) 5.8, Absolute Lymphs (auto) 2.77, Nucleated RBC % 0 09/23/22 08:13: Sodium 141, Potassium 3.7, Chloride 111 H, Carbon Dioxide 21.0, Anion Gap 9, BUN 16, Creatinine 1.60 H, Estim Creat Clear Calc 21.87, Est GFR (MDRD) Af Amer 40 L, Est GFR (MDRD) Non-Af 33 L, BUN/Creatinine Ratio 10.0, Glucose 135 H, Calcium 8.0 L, Total Bilirubin 0.30, AST 9 L, ALT 11 L, Alkaline Phosphatase 71, Total Protein 6.0 L, Albumin 2.8 L, Globulin 3.2, Albumin/Globulin Ratio 0.9 09/23/22 12:00: POC Glucose 161 H Microbiology: Microbiology 09/20/22 14:50 Stool Stool Occult Blood (NIURKA) - Final Occult Blood Positive D/C Instructions Discharge Diet: 2000 mg Sodium Diet Meaningful Use Info Meaningful Use Diagnoses (Choose all that apply): None applicable Discharge Plan Admission Admit Date/Time: 09/20/22 15:52 Primary Reason for Your Visit: Acute GI bleed Attending Provider: Earlene Andrade Primary Care Provider: Tabatha Diaz Consulting Providers: Jemma Castellon ; Fritz Winston Instructions Additional Instructions / Restrictions: Take note of your medications. Follow-up with your primary care doctor within 1 week. Follow-up with gastroenterology, Dr. Hernández within 2 weeks Discharge Orders/Prescriptions Prescriptions: New pantoprazole 40 mg tablet,delayed release (DR/EC) 40 mg PO BID 30 Days Qty: 60 0RF furosemide [Lasix] 40 mg tablet 40 mg PO DAILY 30 Days Qty: 30 0RF Continued aspirin 81 mg tablet,delayed release (DR/EC) 81 mg PO QDAY cetirizine [Zyrtec] 10 mg tablet 10 mg PO QDAY pravastatin 80 mg tablet 80 mg PO QHS glipizide 10 mg tablet 5 mg PO BID levothyroxine 100 mcg tablet 100 mcg PO DAILY Label Comments: TAKE 1 TABLET BY MOUTH ONCE DAILY allopurinol 100 mg tablet 100 mg PO DAILY Label Comments: TAKE 1 TABLET BY MOUTH ONCE DAILY spironolactone 25 mg tablet 25 mg PO DAILY folic acid 1 mg tablet 1 mg PO DAILY metoprolol tartrate 50 MG tablet 50 mg PO BID montelukast 10 MG tablet 10 mg PO DAILY Combivent Respimat 20-100 mcg/actuation mist 1 puff INHALATION Q6H ferrous sulfate 325 mg (65 mg iron) Tablet 325 mg PO DAILY Discontinued clopidogrel 75 mg tablet 75 mg PO QDAY omeprazole 20 MG capsule 20 mg PO DAILY furosemide 40 mg tablet 40 mg PO DAILY Label Comments: TAKE 1 TABLET BY MOUTH ONCE DAILY ciprofloxacin HCl [Cipro] 250 mg tablet 250 mg PO Q12H Referrals / Follow Up: Tabatha Diaz MD [Primary Care Provider] - 09/27/22 1:40 pm Ortiz Hernández DO [Med Staff - Active Staff] - 10/04/22 2:45 pm Disposition Disposition (needs filled in before D/C Order can be placed): Home, Self Care Charges/Coding Visit Charges Inpatient E&M: 76825 Disch Hosp >30min
[2022-09-23 13:24] LABS: Ferritin 48 ng/mL (8-252); Iron 24 ug/dL (50-170); Iron Binding Capacity,Total 219 ug/dL (250-450); LDH 185 U/L (84-246)
[2022-09-23 13:25] LABS: Platelet Count 269 K/mm3 (150-450); RET-HE 33.3 pg (30-35); Reticulocyte Count 2.81 % (0.5-1.5)
--- NOTE | 2022-09-23 14:53 | CASEMGMT ---
Patient had order for discharge. RN CM in to review discharge needs with patient. Patient declines needs at this time. RN CM advised patient to follow-up with PCP. Patient had no further questions or concerns at this time.
[2022-09-23] MEDS: Insulin Lispro 100 UNIT/ML INSULN.PEN SC (16:26)
[2022-09-23 19:20] LABS: Bedside Glucose 157 mg/dL (74-106)
== END 2022-09-23 18:26 | disposition home or self-care (01) | DRG 378 ==
LOC: ED 12:46 → PCU 16:11
PROVIDERS: Internal Medicine; Internal Medicine Gastroenterology; Admitting Provider Family Medicine; Emergency Provider Student in an Organized Health Care Education/Training Program; PCP Internal Medicine; Visit Provider Internal Medicine
PROC: 0DJ08ZZ Inspection of Upper Intestinal Tract, Via Natural or Artificial Opening Endoscopic (ICD-10-PCS; CPT 43235; principal; 2022-09-21 08:45)
DX: K31.811 Angiodysplasia of stomach and duodenum with bleeding (principal); I13.0 Hypertensive heart and chronic kidney disease with heart failure and stage 1 through stage 4 chronic kidney disease, or unspecified chronic kidney disease; N17.9 Acute kidney failure, unspecified; D62 Acute posthemorrhagic anemia; I25.810 Atherosclerosis of coronary artery bypass graft(s) without angina pectoris; N18.4 Chronic kidney disease, stage 4 (severe); I50.42 Chronic combined systolic (congestive) and diastolic (congestive) heart failure; N39.0 Urinary tract infection, site not specified; K21.01 Gastro-esophageal reflux disease with esophagitis, with bleeding; E11.22 Type 2 diabetes mellitus with diabetic chronic kidney disease; J44.9 Chronic obstructive pulmonary disease, unspecified; E66.01 Morbid (severe) obesity due to excess calories; D50.9 Iron deficiency anemia, unspecified; E03.9 Hypothyroidism, unspecified; E78.5 Hyperlipidemia, unspecified; I25.5 Ischemic cardiomyopathy; M10.9 Gout, unspecified; I25.10 Atherosclerotic heart disease of native coronary artery without angina pectoris; S01.01XA Laceration without foreign body of scalp, initial encounter; I89.0 Lymphedema, not elsewhere classified; I25.2 Old myocardial infarction; R07.9 Chest pain, unspecified; Z79.82 Long term (current) use of aspirin; Z68.36 Body mass index [BMI] 36.0-36.9, adult; Z86.16 Personal history of COVID-19; Z79.84 Long term (current) use of oral hypoglycemic drugs; Z79.02 Long term (current) use of antithrombotics/antiplatelets; Z79.890 Hormone replacement therapy; Z79.899 Other long term (current) drug therapy; Z95.1 Presence of aortocoronary bypass graft; Z95.5 Presence of coronary angioplasty implant and graft
CPT/HCPCS: 36415; 71045; 80048; 80053; 80061; 81001; 82274; 82728; 82962; 83036; 83540; 83550; 83615; 83735; 84100; 84443; 84484; 85014; 85018; 85025; 85045; 85610; 85730; 86850; 86900; 86901; 87086; 87088; 93005; 93306; 94640; 96361; 96365; 99252; 99284; 99285; J7030; J7050; Q9957; A4216; C8929; G0463; J2916

== ENCOUNTER → 2022-09-27 | Outpatient (CLI) | payer MEDICARE, SELFPAY ==
[2021-03-16 09:07] VITALS: BMI 39.2
== END | disposition home or self-care (01) ==
LOC: CVS 06:27
PROVIDERS: PCP Internal Medicine; Visit Provider Physician Assistant Medical
DX: I10 Essential (primary) hypertension (principal); E78.00 Pure hypercholesterolemia, unspecified; I25.810 Atherosclerosis of coronary artery bypass graft(s) without angina pectoris; I25.2 Old myocardial infarction; Z95.1 Presence of aortocoronary bypass graft; Z95.5 Presence of coronary angioplasty implant and graft
CPT/HCPCS: 78452; 93017; A9500; A4216; J2785

== ENCOUNTER → 2022-10-04 | Outpatient (CLI) | payer MEDICARE, SELFPAY ==
[2021-03-16 09:07] VITALS: BMI 39.2
[2022-10-04 16:05] LABS: Absolute Lymphocyte Count 2.38 X10^3/uL (0.83-4.51); Absolute Neutrophil Count 5.4 X10^3/uL (2.0-7.7); Basophil# 0.07 X10^3/uL; Basophil% 0.8 % (0-1); Eosinophil# 0.43 X10^3/uL; Eosinophils% 4.9 % (0-5); Hematocrit 30.3 % (37-47); Hemoglobin 9.1 g/dL (12.0-15.0); Lymphocyte # 2.38 X10^3/ul (0.83-4.51); Mean Corpuscular Hgb 29.2 pg (27.0-32.0); Mean Corpuscular Volume 97.1 fL (81-99); Monocyte% 5.7 % (0-10); NRBC Flagged by Analyzer 0 % (0-5); Neutrophil # 5.41 X10^3/uL (2.7-7.7); Neutrophil % 61.1 % (47-70); Platelet Count 345 K/mm3 (150-450); RBC Distribution Width CV 14.9 % (11.6-14.6); RBC Distribution Width SD 53.8 fl (35.1-43.9); RET-HE 33.2 pg (30-35); Red Blood Count 3.12 M/mm3 (4.2-5.4); Reticulocyte Count 2.54 % (0.5-1.5); White Blood Count 8.8 K/mm3 (4.4-11.0)
[2022-10-04 16:30] LABS: Ferritin 109 ng/mL (8-252); Iron 28 ug/dL (50-170); Iron Binding Capacity,Total 249 ug/dL (250-450); PERCENT IRON SATURATION 11.2 % (15.0-55.0)
== END | disposition home or self-care (01) ==
LOC: LAB 15:28
PROVIDERS: PCP Internal Medicine; Visit Provider Internal Medicine Gastroenterology
DX: I10 Essential (primary) hypertension (principal); I42.9 Cardiomyopathy, unspecified; D64.9 Anemia, unspecified
CPT/HCPCS: 36415; 82728; 83540; 83550; 85025; 85045

== ENCOUNTER 2022-10-30 00:06 | Emergency (ER) | payer MEDICARE, SELFPAY ==
[2021-03-16 09:07] VITALS: BMI 39.2
[2022-10-30 00:07] VITALS: BP 162/80; PULSE 75; RESP 13; TEMP 36.7; O2SAT 99; BMI 35.4
--- NOTE | 2022-10-30 00:19 | RAD_ITS ---
INDICATION: chest pain EXAMINATION/TECHNIQUE: X-RAY - portable upright AP chest x-ray COMPARISON: 09/20/2022 FINDINGS: LINES/DEVICES: None. LUNGS: No consolidation, edema or effusion. No pneumothorax. MEDIASTINUM AND CARDIOVASCULAR STRUCTURES: Stable cardiomegaly with CABG changes. BONES AND SOFT TISSUES: No acute changes. RAD/Chest 1 View (Portable) IMPRESSION: Cardiomegaly without radiographic evidence of acute cardiopulmonary disease. Electronically Signed: Nilo Herrera MD at 0:38 EST ,
--- NOTE | 2022-10-30 00:19 | EKG12_ITS ---
Test Reason : REPEAT EKG Blood Pressure : / mmHG Vent. Rate : 073 BPM Atrial Rate : 073 BPM P-R Int : 158 ms QRS Dur : 106 ms QT Int : 420 ms P-R-T Axes : 052 041 108 degrees QTc Int : 462 ms Normal sinus rhythm ST & T wave abnormality, consider lateral ischemia Abnormal ECG Confirmed by ARNALDO DUQUE, DARLENE ([id number]), newspaper editor managing SUKHDEEP CONTRERAS ([id number]) on 10/30/2022 9:07:14 AM Referred By: BB Confirmed By:DARLENE MCINTOSH MD
--- NOTE | 2022-10-30 00:25 | ED.VIS.CHEST ---
HPI History of Present Illness Chief Complaint: Chest Pain Informant: patient Onset/Context/Timing Onset: Hours (2) Activity at onset: gradual, onset, activity on onset and rest (reading a book) Timing: Continuous Quality: Positive for Pressure Current Severity: Mild Maximum Severity: Severe Worsened By: Nothing Relieved By: - (aspirin x 4baby; no other treatments DIRECTOR TRANSLATION) Associated Symptoms: Negative for Nausea, Vomiting, Diaphoresis, Dyspnea, Lightheadedness or Palpitations Narrative Narrative: Patient with a significant cardiac history presenting with chest pressure radiating to her neck and both shoulders that started at rest a couple hours ago, feels like prior cardiac symptoms. She has a history of a 6 way CABG and 4 stents, the last of which was placed 1 or 2 years ago, she states she had a chemical stress test a month or 2 ago, was told prior to the stress test that she needed another cath but her kidney function was preventing it. She does not know the results of her stress test but was not told anything specific. She does not usually get this discomfort very often. She does not smoke. She had bleeding ulcers in her GI tract so she was taken off of all blood thinning medications except for baby aspirin which is what she is still taking. 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 Atherosclerotic heart disease of [place] coronary artery without angina pectoris Cardiomyopathy CKD (chronic kidney disease) COPD (chronic obstructive pulmonary disease) COVID-19 (~04/2022) Essential hypertension GERD (gastroesophageal reflux disease) History of non-ST elevation myocardial infarction (NSTEMI) (01/26/21) Hyperlipidemia Hypothyroidism Insect bite Morbid obesity NSTEMI (non-ST elevated myocardial infarction) Obesity 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 Type 2 diabetes mellitus without complication Vertigo Home Medications montelukast 10 mg tablet 10 mg PO DAILY ASTHMA 12/17/13 [History Last Taken 09/19/22] aspirin 81 mg tablet,delayed release 81 mg PO QDAY HEART HEALTH 11/19/17 [History Last Taken 09/20/22] cetirizine 10 mg tablet (Zyrtec) 10 mg PO QDAY allergies 02/15/20 [History Last Taken 09/19/22] pravastatin 80 mg tablet 80 mg PO QHS CHOLESTEROL 02/15/20 [History Last Taken 09/19/22] allopurinol 100 mg tablet 100 mg PO DAILY GOUT 11/22/21 [History Last Taken 09/19/22] levothyroxine 100 mcg tablet 100 mcg PO DAILY THYROID 11/22/21 [History Last Taken 09/19/22] glipizide 10 mg tablet 5 mg PO BID DM 05/24/22 [History Last Taken 09/19/22] folic acid 1 mg tablet 1 mg PO DAILY SUPPLEMENT 08/28/22 [History Last Taken 09/19/22] spironolactone 25 mg tablet 25 mg PO DAILY HEART 08/28/22 [History Last Taken 09/20/22] ipratropium 20 mcg-albuterol 100 mcg/actuation mist for inhalation (Combivent Respimat) 1 puff inhalation Q6H BREATHING 09/20/22 [History Last Taken 09/20/22] furosemide 40 mg tablet (Lasix) 40 mg PO DAILY 30 days #30 tabs 09/23/22 [Rx Last Taken Unknown] pantoprazole 40 mg tablet,delayed release 40 mg PO BID 30 days #60 tabs 09/23/22 [Rx Last Taken Unknown] ferrous sulfate 325 mg (65 mg iron) tablet 325 mg PO BID SUPPLEMENT 10/04/22 [History Last Taken Unknown] carvedilol 12.5 mg tablet (Coreg) 12.5 mg PO BID #180 tabs 10/30/22 [Rx Last Taken Unknown] isosorbide mononitrate 30 mg tablet,extended release 24 hr 30 mg PO DAILY #30 tabs 10/30/22 [Rx Last Taken Unknown] sulfamethoxazole 800 mg-trimethoprim 160 mg tablet 1 tab PO BID #10 TABLETS 10/30/22 [Rx Last Taken Unknown] Allergy/AdvReac Type Severity Reaction Status Date / Time Anesthetics - Amide Type - Allergy Other Verified 10/30/22 00:13 Select A [Anesthetics - Amide Type] acetaminophen [From Tylenol] AdvReac Severe Other Verified 10/30/22 00:13 cinnamon AdvReac Unknown Unknown Verified 10/30/22 00:13 Penicillins AdvReac Unknown Unknown Verified 10/30/22 00:13 Family History Mother , age 86, advanced age No problems noted. Father Prostate cancer Surgical History H/O coronary artery bypass surgery (10/11/07) History of cholecystectomy History of coronary artery stent placement (01/26/21) History of hysterectomy Hx of appendectomy Hx of bilateral cataract extraction Social History Smoking Status: Never smoker alcohol intake: never substance use type: does not use caffeine: Yes Type: carbonated beverages what type of physical activity do you participate in: none seatbelt use: always do you feel safe at home: Yes ROS ROS ED Constitutional Constitutional ED: Denies chills or fever(s) Eyes Eyes: Denies change in vision or diplopia ENT ENT ED: Denies rhinorrhea or sore throat Cardiovascular Cardiovascular: Reports chest pain; Denies palpitations Respiratory/Chest Respiratory/Chest: Denies cough or dyspnea Gastrointestinal Gastrointestinal: Denies abdominal pain, diarrhea, nausea or vomiting Genitourinary Genitourinary ED: Denies dysuria or hematuria Musculoskeletal Musculoskeletal: Denies back pain or neck pain Integumentary Denies abscess or rash Neurologic Neurologic: Denies headache(s), paresthesias or weakness Psychiatric Psychiatric: Denies anxiety or suicidal thoughts EXAM Physical Exam Const Vital Signs: 10/30/22 00:07 10/30/22 00:15 10/30/22 00:22 Temperature 98.1 F Temperature Source Oral Pulse Rate 75 Respiratory Rate 13 Respiratory Effort Normal Non-Labored Blood Pressure 162/80 H Blood Pressure Mean 107 Pulse Ox 99 Oxygen Delivery Method Room Air Room Air 10/30/22 01:06 10/30/22 02:06 10/30/22 03:00 Temperature Temperature Source Pulse Rate 61 75 64 Respiratory Rate 12 11 L 14 Respiratory Effort Blood Pressure 153/57 H 159/76 H 138/57 H Blood Pressure Mean 89 103 84 Pulse Ox 99 99 99 Oxygen Delivery Method Room Air Room Air Room Air Positive well nourished and well developed General Appearance ED: well developed and NAD HEENT Reports moist mucous membranes normocephalic and atraumatic Eyes PERRL and EOMs intact bilaterally Neck full ROM and supple Resp normal respiratory effort and clear to auscultation bilaterally Cardio regular rate, regular rhythm and no murmurs GI non-tender and non-distended Auscultation: normoactive bowel sounds Palpation: soft Back/Spine no CVA tenderness General Back: other FROM Extremity normal to inspection General Extremety ED: Negative for edema, pulses abnormal or tenderness General Extremity: Negative for edema or pulses abnormal Neuro oriented x3, CN's II-XII intact bilaterally and no sensory deficits noted Sensorium / Orientation: awake and alert Motor Exam: strength 5/5 throughout Skin no rashes or lesions noted and no wounds Heart Score History: Highly Suspicious ECG: Nonspecific Repolarization Age: >/= 65 years Risk Factors: >/= 3 Risk Factors or History of CAD Troponin: </= Normal Limit Score: 7 MDM MDM MDM Narrative Medical decision making narrative: Patient already took 4 baby aspirin prior to arrival, and is feeling better now although she is still having discomfort, she was offered nitroglycerin and/or morphine for continued discomfort and she declined those. Reviewed prior records: Outpatient stress test pharmacologic myocardial perfusion, from 09/27/2022. It is abnormal with evidence of anterolateral ischemia and an anteroapical infarct with reduced ejection fraction approximately 44%. Patient has a nonacute EKG, she has repolarization abnormalities that are stable compared with her prior. She developed some tingling in her left upper extremity at some point while she was here, we repeated the EKG, she declined analgesics and nitroglycerin, her EKG is unchanged, the tingling went away. At this time she has no chest pressure. Her initial troponin is 17 and the repeat 2 hours later is 20. Her renal function is worse than it was before. I discussed all this with Dr. Roberts who was on for cardiology, the patient sees Dr. Win as an outpatient and has an appointment in December. He recommends increasing her carvedilol from 12.5 mg twice daily to 25 mg twice daily and putting her on Imdur 30 mg, which I think is reasonable since we are not able to catheterize her right now without possibly inducing more kidney injury, and she is not having a STEMI or NSTEMI at this time. Discussed all this with the patient, she also added that she has been having some dysuria for the last week and wondered if she had a urinary infection which she has had in the past, we did a urinalysis it is indeed consistent with a UTI, so that will be sent for culture and we will place her on a short course of Bactrim in addition. Advised to call cardiology and try to get an appointment sooner, and we discussed reasons to return she is comfortable with that plan. Lab Data Attestation: I reviewed the patient's lab results. Labs: Laboratory Results - last 24 hr 10/30/22 10/30/22 10/30/22 00:14 00:14 02:37 WBC 9.9 RBC 3.29 L Hgb 10.0 L Hct 31.8 L MCV 96.7 MCH 30.4 MCHC 31.4 L RDW Std Deviation 52.5 H RDW Coeff of Kamar 14.7 H Plt Count 323 MPV 10.3 Immature Gran % (Auto) 0.200 Neut % (Auto) 57.6 Lymph % (Auto) 31.4 [place] % (Auto) 5.8 Eos % (Auto) 4.2 Baso % (Auto) 0.8 Absolute Neuts (auto) 5.7 Absolute Lymphs (auto) 3.11 Nucleated RBC % 0 Sodium 137 Potassium 4.5 Chloride 105 Carbon Dioxide 27.0 Anion Gap 5 BUN 32 H Creatinine 2.69 H Estim Creat Clear Calc 13.01 Est GFR (MDRD) Af Amer 22 L Est GFR (MDRD) Non-Af 18 L BUN/Creatinine Ratio 11.9 Glucose 152 H Calcium 9.2 Troponin I High Sens 17 20 Urine Color Urine Clarity Urine pH Ur Specific [place] Urine Protein Urine Glucose (UA) Urine Ketones Urine Occult Blood Urine Nitrite Urine Bilirubin Urine Urobilinogen Ur Leukocyte Esterase Urine RBC Urine WBC Ur Squamous Epith Cells Urine Bacteria Urine Mucus 10/30/22 02:42 WBC RBC Hgb Hct MCV MCH MCHC RDW Std Deviation RDW Coeff of Kamar Plt Count MPV Immature Gran % (Auto) Neut % (Auto) Lymph % (Auto) [place] % (Auto) Eos % (Auto) Baso % (Auto) Absolute Neuts (auto) Absolute Lymphs (auto) Nucleated RBC % Sodium Potassium Chloride Carbon Dioxide Anion Gap BUN Creatinine Estim Creat Clear Calc Est GFR (MDRD) Af Amer Est GFR (MDRD) Non-Af BUN/Creatinine Ratio Glucose Calcium Troponin I High Sens Urine Color Yellow Urine Clarity Turbid Urine pH 6.0 Ur Specific [place] 1.010 Urine Protein 100 H Urine Glucose (UA) Normal Urine Ketones Negative Urine Occult Blood 50 H Urine Nitrite Negative Urine Bilirubin Negative Urine Urobilinogen Normal Ur Leukocyte Esterase 500 H Urine RBC 0 SEEN Urine WBC >100 SEEN Ur Squamous Epith Cells 0 SEEN Urine Bacteria 3+ Urine Mucus 0 SEEN Radiography Chest X-Ray - ED: 1 View, Read by ED Physician and No Infiltrates (and no acute CHF) Diagnostic Testing: Clinical Impression(s) from Imaging Studies Chest X-Ray 10/30/22 00:19 IMPRESSION: Cardiomegaly without radiographic evidence of acute cardiopulmonary disease. Electronically Signed: Nilo Herrera MD at 0:38 EST , Rhythm Strip Rhythm Strip: Sinus Rhythm Rate: 75 Ectopy: None EKG Initial EKG: Attestation: I personally reviewed and interpreted this EKG as follows: Interpretation: Sinus Rhythm, No Acute Injury Pattern and Inverted T-Waves (laterally) Prior EKG tracings: available for review Prior: Unchanged Follow-up EKG: Attestation: I personally reviewed and interpreted this EKG as follows: Interpretation: Sinus Rhythm and Non-Specific ST Changes Comments: Unchanged compared with prior Discharge Plan Triage Chief Complaint: Chest Pain ED Provider: Diogo Lee Dx/Rx/DC Orders Clinical Impression: Chest pain, Acute cystitis without hematuria Instructions: ED Chest Pain, Uncertain Cause, ED Cystitis Female Adult Prescriptions: New isosorbide mononitrate 30 mg tablet extended release 24 hr 30 mg PO DAILY Qty: 30 1RF sulfamethoxazole-trimethoprim [sulfamethoxazole-trimethoprim] 1 TABLET tablet 1 tab PO BID Qty: 10 0RF Continued aspirin 81 mg tablet,delayed release (DR/EC) 81 mg PO QDAY cetirizine [Zyrtec] 10 mg tablet 10 mg PO QDAY pravastatin 80 mg tablet 80 mg PO QHS glipizide 10 mg tablet 5 mg PO BID levothyroxine 100 mcg tablet 100 mcg PO DAILY Label Comments: TAKE 1 TABLET BY MOUTH ONCE DAILY allopurinol 100 mg tablet 100 mg PO DAILY Label Comments: TAKE 1 TABLET BY MOUTH ONCE DAILY spironolactone 25 mg tablet 25 mg PO DAILY folic acid 1 mg tablet 1 mg PO DAILY ferrous sulfate 325 mg (65 mg iron) tablet 325 mg PO BID montelukast 10 MG tablet 10 mg PO DAILY Combivent Respimat 20-100 mcg/actuation mist 1 puff INHALATION Q6H pantoprazole 40 mg tablet,delayed release (DR/EC) 40 mg PO BID 30 Days Qty: 60 0RF furosemide [Lasix] 40 mg tablet 40 mg PO DAILY 30 Days Qty: 30 0RF carvedilol [Coreg] 12.5 mg tablet 12.5 mg PO BID Qty: 180 3RF Rx Instructions: increase to 2 tablets twice daily Primary Care Provider: Tabatha Diaz Referrals: Tabatha Diaz MD [Primary Care Provider] - Lasha Win MD [Med Staff - Active Staff] - As soon as possible Disposition Disposition: Home, Self Care
[2022-10-30 00:29] LABS: Absolute Lymphocyte Count 3.11 X10^3/uL (0.83-4.51); Absolute Neutrophil Count 5.7 X10^3/uL (2.0-7.7); Basophil# 0.08 X10^3/uL; Basophil% 0.8 % (0-1); Eosinophil# 0.42 X10^3/uL; Eosinophils% 4.2 % (0-5); Hematocrit 31.8 % (37-47); Lymphocyte # 3.11 X10^3/ul (0.83-4.51); Lymphocyte % 31.4 % (19-41); Mean Corp Hgb Conc 31.4 g/dL (32-36); Mean Corpuscular Hgb 30.4 pg (27.0-32.0); Mean Corpuscular Volume 96.7 fL (81-99); Mean Platelet Vol. 10.3 fl (6.2-12.0); Monocyte# 0.57 X10^3/uL; Monocyte% 5.8 % (0-10); NRBC Flagged by Analyzer 0 % (0-5); Neutrophil # 5.71 X10^3/uL (2.7-7.7); Neutrophil % 57.6 % (47-70); Platelet Count 323 K/mm3 (150-450); RBC Distribution Width CV 14.7 % (11.6-14.6); RBC Distribution Width SD 52.5 fl (35.1-43.9); Red Blood Count 3.29 M/mm3 (4.2-5.4); White Blood Count 9.9 K/mm3 (4.4-11.0)
[2022-10-30 00:46] LABS: Anion Gap 5 (5-15); BUN 32 mg/dL (7-18); BUN/Creat Ratio 11.9 RATIO (10-20); Calcium,Total 9.2 mg/dL (8.5-10.1); Chloride 105 mmol/L (98-107); Creatinine, Serum 2.69 mg/dL (0.55-1.02); EST Glomerular Filtration Rate 18 mL/min (>60); Est Glom Filt Rate - Afr Amer 22 mL/min (>60); Estimated Creatinine Clearance 13.01 ml/min; Glucose 152 mg/dL (74-106); Potassium 4.5 mmol/L (3.5-5.1); Sodium Level 137 mmol/L (136-145); Troponin-I HS (w/2H Reflex) 17 pg/mL (3.0-54.0)
[2022-10-30 01:06] VITALS: BP 153/57; PULSE 61; RESP 12; O2SAT 99
--- NOTE | 2022-10-30 01:52 | EKG12_ITS ---
Test Reason : CP Blood Pressure : / mmHG Vent. Rate : 073 BPM Atrial Rate : 073 BPM P-R Int : 158 ms QRS Dur : 102 ms QT Int : 422 ms P-R-T Axes : 050 042 106 degrees QTc Int : 464 ms Normal sinus rhythm ST & T wave abnormality, consider lateral ischemia Abnormal ECG Confirmed by ARNALDO DUQUE, DARLENE ([id number]), proposal editor SUKHDEEP CONTRERAS ([id number]) on 10/30/2022 9:06:51 AM Referred By: BB Confirmed By:DARLENE MCINTOSH MD
[2022-10-30 02:06] VITALS: BP 159/76; PULSE 75; RESP 11; O2SAT 99
[2022-10-30 02:25] LABS: Reflex Troponin-HS? (from REC) Y
[2022-10-30 02:46] LABS: Mucous, Urine 0 SEEN /hpf (<or=2+); Red Blood Cells-Urine 0 SEEN /hpf (0-5); Squamous Epithelial Cells - UA 0 SEEN /hpf (5-10)
[2022-10-30 02:48] LABS: Color, Urine Yellow (Yellow); Glucose, Dipstick Normal (Normal); Ketone-Dipstick Negative (Negative); Leukocyte Esterase-Dipstick 500 /ul (Negative); Nitrite-Dipstick Negative (Negative); Occult Blood-Urine 50 /ul (Negative); Protein-Dipstick 100 mg/dl (Negative); Urine Bilirubin Dipstick Negative (Negative); Urine Clarity Turbid (Clear); Urine Urobilinogen Normal (Normal)
[2022-10-30 03:00] VITALS: BP 138/57; PULSE 64; RESP 14; O2SAT 99
[2022-10-30 03:03] LABS: Troponin-I HS 20 pg/mL (3.0-54.0)
[2022-10-30 03:16] LABS: Bacteria 3+ /hpf (None Seen); White Blood Cells >100 SEEN /hpf (0-5)
[2022-10-30 03:43] VITALS: BP 147/79; PULSE 72; RESP 20; O2SAT 99
[2022-10-30] MEDS: Smz/Tmp Ds Tablet 1 TABLET PO (03:48)
== END 2022-10-30 03:51 | disposition home or self-care (01) ==
PROVIDERS: Emergency Provider Emergency Medicine; PCP Internal Medicine; Visit Provider Emergency Medicine
DX: N30.00 Acute cystitis without hematuria (principal); J44.9 Chronic obstructive pulmonary disease, unspecified; E11.22 Type 2 diabetes mellitus with diabetic chronic kidney disease; E78.5 Hyperlipidemia, unspecified; R07.9 Chest pain, unspecified; I12.9 Hypertensive chronic kidney disease with stage 1 through stage 4 chronic kidney disease, or unspecified chronic kidney disease; Z95.5 Presence of coronary angioplasty implant and graft; I25.10 Atherosclerotic heart disease of native coronary artery without angina pectoris; N18.9 Chronic kidney disease, unspecified
CPT/HCPCS: 71045; 80048; 81001; 84484; 85025; 87086; 87088; 93005; 96360; 99285; J7040; A4216

== ENCOUNTER 2022-11-15 22:22 | Emergency (ER) | payer MEDICARE, SELFPAY ==
[2021-03-16 09:07] VITALS: BMI 39.2
[2022-11-15 22:29] VITALS: BP 177/69; PULSE 71; RESP 18; TEMP 36.3; O2SAT 100; BMI 36.3
--- NOTE | 2022-11-15 22:45 | ED.VIS.CHEST ---
HPI History of Present Illness Chief Complaint: Palpitations Informant: patient Onset/Context/Timing Onset: Today Activity at onset: activity on onset and rest Timing: Intermittent (2 or 3 episodes) and Lasts (Several hours) Quality: Positive for - (Discomfort, cold) Location: Substernal (Starts lower substernal, radiates up center of chest no other radiation) Current Severity: Gone Maximum Severity: Moderate Worsened By: Nothing Relieved By: Nothing Associated Symptoms: Positive for Dyspnea; Negative for Nausea, Diaphoresis, Cough, Lightheadedness or Palpitations Narrative Narrative: Patient with discomfort off and on today that she states felt similar to when she needed stents and/or CABG in the past. States that she had a routine appointment with her doctor today, and did mention it. She states she had another episode tonight that was concerning to her and she has been short of breath since she woke up this morning, she states it felt like wheezing/COPD a little so she used her albuterol inhaler and it helped a little bit. Patient states she saw her densitometer reader Dr. Win about 1.5 months ago, she tells me that she failed a stress test, and he wanted to do a heart cath on her but her kidneys prevented them from doing that safely, so they made a couple of medication adjustments in the meantime. 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 Type 2 diabetes mellitus without complication Vertigo Home Medications montelukast 10 mg tablet 10 mg PO DAILY ASTHMA 12/17/13 [History Last Taken 09/19/22] aspirin 81 mg tablet,delayed release 81 mg PO QDAY HEART HEALTH 11/19/17 [History Last Taken 09/20/22] cetirizine 10 mg tablet (Zyrtec) 10 mg PO QDAY allergies 02/15/20 [History Last Taken 09/19/22] pravastatin 80 mg tablet 80 mg PO QHS CHOLESTEROL 02/15/20 [History Last Taken 09/19/22] allopurinol 100 mg tablet 100 mg PO DAILY GOUT 11/22/21 [History Last Taken 09/19/22] levothyroxine 100 mcg tablet 100 mcg PO DAILY THYROID 11/22/21 [History Last Taken 09/19/22] glipizide 10 mg tablet 5 mg PO BID DM 05/24/22 [History Last Taken 09/19/22] folic acid 1 mg tablet 1 mg PO DAILY SUPPLEMENT 08/28/22 [History Last Taken 09/19/22] spironolactone 25 mg tablet 25 mg PO DAILY HEART 08/28/22 [History Last Taken 09/20/22] ipratropium 20 mcg-albuterol 100 mcg/actuation mist for inhalation (Combivent Respimat) 1 puff inhalation Q6H BREATHING 09/20/22 [History Last Taken 09/20/22] furosemide 40 mg tablet (Lasix) 40 mg PO DAILY 30 days #30 tabs 09/23/22 [Rx Last Taken Unknown] pantoprazole 40 mg tablet,delayed release 40 mg PO BID 30 days #60 tabs 09/23/22 [Rx Last Taken Unknown] ferrous sulfate 325 mg (65 mg iron) tablet 325 mg PO BID SUPPLEMENT 10/04/22 [History Last Taken Unknown] carvedilol 12.5 mg tablet (Coreg) 12.5 mg PO BID #180 tabs 10/30/22 [Rx Last Taken Unknown] isosorbide mononitrate 30 mg tablet,extended release 24 hr 30 mg PO DAILY #30 tabs 10/30/22 [Rx Last Taken Unknown] sulfamethoxazole 800 mg-trimethoprim 160 mg tablet 1 tab PO BID #10 TABLETS 10/30/22 [Rx Last Taken Unknown] nitrofurantoin monohydrate/macrocrystals 100 mg capsule 100 mg PO Q12 #10 CAPSULES 11/16/22 [Rx Last Taken Unknown] Allergy/AdvReac Type Severity Reaction Status Date / Time Anesthetics - Amide Type - Allergy Other Verified 11/15/22 22:31 Select A [Anesthetics - Amide Type] acetaminophen [From Tylenol] AdvReac Severe Other Verified 11/15/22 22:31 cinnamon AdvReac Unknown Unknown Verified 11/15/22 22:31 Penicillins AdvReac Unknown Unknown Verified 11/15/22 22:31 Family History Mother , age 86, advanced age No problems noted. Father Prostate cancer Surgical History H/O coronary artery bypass surgery (10/11/07) History of cholecystectomy History of coronary artery stent placement (01/26/21) History of hysterectomy Hx of appendectomy Hx of bilateral cataract extraction Social History Smoking Status: Never smoker alcohol intake: never substance use type: does not use caffeine: Yes Type: carbonated beverages what type of physical activity do you participate in: none seatbelt use: always do you feel safe at home: Yes ROS ROS ED Constitutional Constitutional ED: Denies chills or fever(s) Eyes Eyes: Denies change in vision or diplopia ENT ENT ED: Denies rhinorrhea or sore throat Cardiovascular Cardiovascular: Reports as per HPI, chest pain and leg edema; Denies orthopnea, palpitations or paroxysmal nocturnal dyspnea Respiratory/Chest Respiratory/Chest: Reports dyspnea; Denies cough, orthopnea or paroxysmal nocturnal dyspnea Gastrointestinal Gastrointestinal: Denies abdominal pain, diarrhea, nausea or vomiting Genitourinary Genitourinary ED: Denies dysuria or hematuria Musculoskeletal Musculoskeletal: Denies back pain or neck pain Integumentary Denies abscess or rash Neurologic Neurologic: Denies headache(s), paresthesias or weakness Psychiatric Psychiatric: Denies anxiety or suicidal thoughts EXAM Physical Exam Const Vital Signs: 11/15/22 22:29 11/15/22 22:28 11/15/22 22:47 Temperature 97.4 F L Temperature Source Temporal Pulse Rate 71 Respiratory Rate 18 Respiratory Effort Normal Non-Labored Blood Pressure 177/69 H Blood Pressure Mean 105 Pulse Ox 100 96 Oxygen Delivery Method Room Air Room Air 11/15/22 23:28 11/16/22 01:00 Temperature Temperature Source Pulse Rate 64 64 Respiratory Rate 19 H 15 Respiratory Effort Blood Pressure 155/79 H Blood Pressure Mean 104 Pulse Ox 94 98 Oxygen Delivery Method Room Air Room Air Positive well nourished and well developed General Appearance ED: well developed and NAD HEENT Reports moist mucous membranes normocephalic and atraumatic Eyes PERRL and EOMs intact bilaterally Neck full ROM, no lymphadenopathy, supple and no JVD Resp Resp Narrative: Conversational dyspnea, no distress. Slight end expiratory wheezes more prominent on the right posterior mid lung field, no other abnormal breath sounds. Cardio regular rate, regular rhythm and no murmurs Rate: Negative for tachycardic GI non-tender and non-distended Auscultation: normoactive bowel sounds Palpation: soft; Negative for pulsatile mass Back/Spine no CVA tenderness General Back: other FROM Extremity normal to inspection General Extremety ED: Yes edema; Negative for pulses abnormal or tenderness General Extremity: edema bilateral lower extremity Details: moderate; Negative for pulses abnormal Neuro oriented x3, CN's II-XII intact bilaterally and no sensory deficits noted Sensorium / Orientation: awake and alert Motor Exam: strength 5/5 throughout Psych mental status grossly normal Skin no rashes or lesions noted and no wounds Heart Score History: Highly Suspicious Age: >/= 65 years Risk Factors: >/= 3 Risk Factors or History of CAD Score: 6 MDM MDM MDM Narrative Medical decision making narrative: Patient's initial EKG is unremarkable for injury, may be a lead reversal, but the morphology is unremarkable/unchanged. See below. Chest x-ray 2 views of my interpretation negative for pneumonia/pneumothorax, radiology in agreement. Chronic changes noted. Her initial troponin was negative. Since the EKG was a little different blood probably from lead reversal, I obtained a 2-hour delta troponin. It also is negative, with a negligible change from 18 to 19. She is not having any chest discomfort right now on reevaluation. She asked me to send a urinalysis, she said she was having burning dysuria and frequency first days. It appears to show infection. Therefore sent for culture and started her on Macrobid given most recent antimicrobiogram here at the hospital. It is possible that her symptoms tonight were related to her COPD and weather changes as her PCP had suggested to her. I gave her an albuterol aerosol which really helped and resolved her symptoms here. I do not think she needs any steroids right now, but advised to return if she continues to worsen. She has chronic kidney injury, her creatinine is better than the last when she had, her potassium is 5.3, this is just barely elevated and she has no acute EKG changes from this. I do not think it needs to be treated right now, close outpatient follow-up for repeat labs advised. History & Record Review Additional record(s) reviewed:: Prior outpatient record (Outpt myocardial perfusion stress 09/27/22: anterolat ischemia; 08/28/22 last outpt Cardiology visit note) Lab Data Attestation: I reviewed the patient's lab results. Labs: Laboratory Results - last 24 hr 11/15/22 11/15/22 11/15/22 22:58 22:58 22:58 WBC 10.3 RBC 3.70 L Hgb 11.0 L Hct 35.5 L MCV 95.9 MCH 29.7 MCHC 31.0 L RDW Std Deviation 50.4 H RDW Coeff of Kamar 14.3 Plt Count 268 MPV 10.4 Immature Gran % (Auto) 0.300 Neut % (Auto) 62.6 Lymph % (Auto) 26.8 [place] % (Auto) 4.9 Eos % (Auto) 4.8 Baso % (Auto) 0.6 Absolute Neuts (auto) 6.4 Absolute Lymphs (auto) 2.75 Nucleated RBC % 0 APTT 32.8 Sodium 135 L Potassium 5.3 H Chloride 104 Carbon Dioxide 26.0 Anion Gap 5 BUN 28 H Creatinine 2.01 H Estim Creat Clear Calc 17.41 Est GFR (MDRD) Af Amer 31 L Est GFR (MDRD) Non-Af 25 L BUN/Creatinine Ratio 13.9 Glucose 147 H Calcium 8.9 Troponin I High Sens 18 Urine Color Urine Clarity Urine pH Ur Specific [place] Urine Protein Urine Glucose (UA) Urine Ketones Urine Occult Blood Urine Nitrite Urine Bilirubin Urine Urobilinogen Ur Leukocyte Esterase Urine RBC Urine WBC Ur Squamous Epith Cells Ur Transition Epith Cell Urine Bacteria Urine Mucus 11/15/22 11/16/22 23:50 01:05 WBC RBC Hgb Hct MCV MCH MCHC RDW Std Deviation RDW Coeff of Kamar Plt Count MPV Immature Gran % (Auto) Neut % (Auto) Lymph % (Auto) [place] % (Auto) Eos % (Auto) Baso % (Auto) Absolute Neuts (auto) Absolute Lymphs (auto) Nucleated RBC % APTT Sodium Potassium Chloride Carbon Dioxide Anion Gap BUN Creatinine Estim Creat Clear Calc Est GFR (MDRD) Af Amer Est GFR (MDRD) Non-Af BUN/Creatinine Ratio Glucose Calcium Troponin I High Sens 19 Urine Color Yellow Urine Clarity Cloudy Urine pH 7.0 Ur Specific [place] 1.005 Urine Protein 100 H Urine Glucose (UA) Normal Urine Ketones Negative Urine Occult Blood 50 H Urine Nitrite Negative Urine Bilirubin Negative Urine Urobilinogen Normal Ur Leukocyte Esterase 500 H Urine RBC 10-25 SEEN Urine WBC >100 SEEN Ur Squamous Epith Cells 0-5 SEEN Ur Transition Epith Cell 0-5 SEEN Urine Bacteria 2+ Urine Mucus 0 SEEN Radiography Diagnostic Testing: Clinical Impression(s) from Imaging Studies Chest X-Ray 11/15/22 23:35 IMPRESSION: No acute cardiopulmonary disease. Age-indeterminate bronchitis. Electronically Signed: Jatin Castellon MD at 0:36 EST , Rhythm Strip Rhythm Strip: Sinus Rhythm Rate: 83 Ectopy: None EKG Initial EKG: Attestation: I personally reviewed and interpreted this EKG as follows: Interpretation: Sinus Rhythm and No Acute Injury Pattern Comments: [place] is different, suspect lead reversal, however morphology and precordial leads unchanged compared with prior Prior EKG tracings: available for review Discharge Plan Triage Chief Complaint: Palpitations ED Provider: Diogo Lee Dx/Rx/DC Orders Clinical Impression: Intermittent chest pain, Chronic kidney disease, Acute exacerbation of chronic obstructive pulmonary disease (COPD), Acute cystitis without hematuria Instructions: COPD: Wheezing and Chest Tightness, ED Cystitis Female Adult Prescriptions: New nitrofurantoin monohyd/m-cryst [nitrofurantoin monohyd/m-cryst] 100 mg capsule 100 mg PO Q12 Qty: 10 0RF No Action aspirin 81 mg tablet,delayed release (DR/EC) 81 mg PO QDAY cetirizine [Zyrtec] 10 mg tablet 10 mg PO QDAY pravastatin 80 mg tablet 80 mg PO QHS glipizide 10 mg tablet 5 mg PO BID levothyroxine 100 mcg tablet 100 mcg PO DAILY Label Comments: TAKE 1 TABLET BY MOUTH ONCE DAILY allopurinol 100 mg tablet 100 mg PO DAILY Label Comments: TAKE 1 TABLET BY MOUTH ONCE DAILY spironolactone 25 mg tablet 25 mg PO DAILY folic acid 1 mg tablet 1 mg PO DAILY ferrous sulfate 325 mg (65 mg iron) tablet 325 mg PO BID montelukast 10 MG tablet 10 mg PO DAILY Combivent Respimat 20-100 mcg/actuation mist 1 puff INHALATION Q6H pantoprazole 40 mg tablet,delayed release (DR/EC) 40 mg PO BID 30 Days Qty: 60 0RF furosemide [Lasix] 40 mg tablet 40 mg PO DAILY 30 Days Qty: 30 0RF isosorbide mononitrate 30 mg tablet extended release 24 hr 30 mg PO DAILY Qty: 30 1RF sulfamethoxazole-trimethoprim [sulfamethoxazole-trimethoprim] 1 TABLET tablet 1 tab PO BID Qty: 10 0RF carvedilol [Coreg] 12.5 mg tablet 12.5 mg PO BID Qty: 180 3RF Rx Instructions: increase to 2 tablets twice daily Primary Care Provider: Tabatha Diaz Referrals: Tabatha Diaz MD [Primary Care Provider] - 3-5 Days (Your potassium was a little high at 5.3 but your kidney function is a little better than it was before; follow-up for recheck after the weekend) Disposition Disposition: Home, Self Care
[2022-11-15 22:47] VITALS: O2SAT 96
[2022-11-15] MEDS: Aspirin 81 MG TAB.CHEW 162 MG PO (22:50)
[2022-11-15 23:03] LABS: Absolute Lymphocyte Count 2.75 X10^3/uL (0.83-4.51); Absolute Neutrophil Count 6.4 X10^3/uL (2.0-7.7); Basophil# 0.06 X10^3/uL; Basophil% 0.6 % (0-1); Eosinophil# 0.49 X10^3/uL; Eosinophils% 4.8 % (0-5); Hematocrit 35.5 % (37-47); Lymphocyte # 2.75 X10^3/ul (0.83-4.51); Lymphocyte % 26.8 % (19-41); Mean Corpuscular Hgb 29.7 pg (27.0-32.0); Mean Corpuscular Volume 95.9 fL (81-99); Mean Platelet Vol. 10.4 fl (6.2-12.0); Monocyte% 4.9 % (0-10); NRBC Flagged by Analyzer 0 % (0-5); Neutrophil # 6.43 X10^3/uL (2.7-7.7); Neutrophil % 62.6 % (47-70); Platelet Count 268 K/mm3 (150-450); RBC Distribution Width CV 14.3 % (11.6-14.6); RBC Distribution Width SD 50.4 fl (35.1-43.9); White Blood Count 10.3 K/mm3 (4.4-11.0)
[2022-11-15] MEDS: Albuterol 2.5 MG/3 ML VIAL.NEB. INHALATION (23:03)
[2022-11-15 23:11] LABS: Partial Thromboplast Time 32.8 Seconds (24.1-36.2)
[2022-11-15 23:20] LABS: Anion Gap 5 (5-15); BUN 28 mg/dL (7-18); BUN/Creat Ratio 13.9 RATIO (10-20); Calcium,Total 8.9 mg/dL (8.5-10.1); Chloride 104 mmol/L (98-107); Creatinine, Serum 2.01 mg/dL (0.55-1.02); EST Glomerular Filtration Rate 25 mL/min (>60); Est Glom Filt Rate - Afr Amer 31 mL/min (>60); Estimated Creatinine Clearance 17.41 ml/min; Glucose 147 mg/dL (74-106); Potassium 5.3 mmol/L (3.5-5.1); Sodium Level 135 mmol/L (136-145); Troponin-I HS (w/2H Reflex) 18 pg/mL (3.0-54.0)
[2022-11-15 23:28] VITALS: PULSE 64; RESP 19; O2SAT 94
--- NOTE | 2022-11-15 23:35 | RAD_ITS ---
EXAM: XR CHEST, 2 VIEWS CLINICAL INDICATION: chest pain, sob TECHNIQUE: Frontal and lateral views of the chest. This report was created using [employer] report generation technology. COMPARISON: October 28, 2022 FINDINGS: LUNGS AND PLEURAL SPACES: Bronchitis. No consolidation. No pleural effusion or pneumothorax. HEART: Cardiomegaly. CABG postsurgical changes. MEDIASTINUM: Central airways and mediastinal contour are unremarkable. BONES/JOINTS: Degenerative changes of the spine. Diffuse osteopenia. Disrupted most caudal sternotomy wire. SOFT TISSUES: Unremarkable. VASCULATURE: Atherosclerotic calcifications of the nonenlarged thoracic aortic arch. RAD/Chest PA and Lateral IMPRESSION: No acute cardiopulmonary disease. Age-indeterminate bronchitis. Electronically Signed: Jatin Castellon MD at 0:36 EST ,
[2022-11-15 23:59] LABS: Mucous, Urine 0 SEEN /hpf (<or=2+)
[2022-11-16 00:04] LABS: Color, Urine Yellow (Yellow); Glucose, Dipstick Normal (Normal); Ketone-Dipstick Negative (Negative); Leukocyte Esterase-Dipstick 500 /ul (Negative); Nitrite-Dipstick Negative (Negative); Occult Blood-Urine 50 /ul (Negative); Protein-Dipstick 100 mg/dl (Negative); Specific Gravity, Urine 1.005 (1.002-1.030); Urine Bilirubin Dipstick Negative (Negative); Urine Clarity Cloudy (Clear); Urine Urobilinogen Normal (Normal)
[2022-11-16 00:17] LABS: Bacteria 2+ /hpf (None Seen); Red Blood Cells-Urine 10-25 SEEN /hpf (0-5); Squamous Epithelial Cells - UA 0-5 SEEN /hpf (5-10); Transitional Epithelial - Ur 0-5 SEEN /hpf (0-5); White Blood Cells >100 SEEN /hpf (0-5)
[2022-11-16 00:58] LABS: Reflex Troponin-HS? (from REC) Y
[2022-11-16 01:00] VITALS: BP 155/79; PULSE 64; RESP 15; O2SAT 98
[2022-11-16] MEDS: Nitrofurantoin Macrocrystals 100 MG Capsule PO (01:08)
[2022-11-16 01:30] LABS: Troponin-I HS 19 pg/mL (3.0-54.0)
[2022-11-16 01:51] VITALS: BP 161/64; PULSE 59; RESP 18; O2SAT 95
== END 2022-11-16 01:52 | disposition home or self-care (01) ==
PROVIDERS: Emergency Provider Emergency Medicine; PCP Internal Medicine; Visit Provider Emergency Medicine
DX: R07.9 Chest pain, unspecified (principal); J44.1 Chronic obstructive pulmonary disease with (acute) exacerbation; E11.22 Type 2 diabetes mellitus with diabetic chronic kidney disease; N30.00 Acute cystitis without hematuria; R00.2 Palpitations; I12.9 Hypertensive chronic kidney disease with stage 1 through stage 4 chronic kidney disease, or unspecified chronic kidney disease; N18.9 Chronic kidney disease, unspecified; E78.5 Hyperlipidemia, unspecified; I25.10 Atherosclerotic heart disease of native coronary artery without angina pectoris
CPT/HCPCS: 71046; 80048; 81001; 84484; 85025; 85730; 87086; 87088; 93005; 99285

== ENCOUNTER 2023-02-05 17:53 | Emergency (ER) | payer MEDICARE, SELFPAY ==
[2021-03-16 09:07] VITALS: BMI 39.2
[2023-02-05 17:55] VITALS: BP 177/74; PULSE 88; RESP 18; TEMP 36.9; O2SAT 99
--- NOTE | 2023-02-05 18:11 | RAD_ITS ---
STUDY: X-RAY - PELVIS AND RIGHT HIP REASON FOR EXAM: Female, 77 years old. Right thigh pain for one month. TECHNIQUE: 3 views of the pelvis and hip. COMPARISON: None. FINDINGS: There is a non-specific bowel gas pattern. Normal visualized soft tissue structures. There are surgical clips in the medial right thigh with evidence of vascular calcifications. Degenerative changes and mild dextroscoliosis of the lower lumbar spine. There is narrowing with cortical sclerosis and osteophyte formation of the sacroiliac joint consistent with degenerative osteoarthritic changes. Normal visualized sacrum and iliac wings. Normal bilateral superior and inferior pubic rami. Normal pubic symphysis. Normal bilateral ischial tuberosities. Mild degenerative changes of the left hip. Normal visualized right femoral head. Normal right acetabulum. There is mild articular joint space narrowing of the right hip. RAD/HIP, UNI W/ Pelvis 2-3 Views IMPRESSION: Degenerative changes of the lumbar spine, sacroiliac joints and bilateral hips. There is no acute fracture or dislocation. Electronically Signed: Rajeev Boggs DO at 18:40 EDT ,
--- NOTE | 2023-02-05 18:18 | RAD_ITS ---
STUDY: X-RAY - LEFT SHOULDER REASON FOR EXAM: Female, 77 years old. Left arm pain for one month. TECHNIQUE: 4 view(s) of the shoulder. COMPARISON: None. FINDINGS: Normal glenohumeral articulation. There is degenerative arthrosis of the acromioclavicular joint without inferior osseous spur formation. Normal acromion. There is no acute fracture, dislocation or destructive osseous pathology. Normal humeral head and visualized proximal humerus. The soft tissue structures are unremarkable. Normal visualized pulmonary apex. RAD/Shoulder min 2 Views IMPRESSION: Mild arthrosis of the acromioclavicular joint. Pending Final Proof Editing
[2023-02-05 18:19] LABS: Mucous, Urine 0 SEEN /hpf (<or=2+)
[2023-02-05 18:24] LABS: Color, Urine Straw (Yellow); Glucose, Dipstick Normal (Normal); Ketone-Dipstick Negative (Negative); Leukocyte Esterase-Dipstick 500 /ul (Negative); Nitrite-Dipstick Negative (Negative); Occult Blood-Urine 25 /ul (Negative); Protein-Dipstick 30 mg/dl (Negative); Urine Bilirubin Dipstick Negative (Negative); Urine Clarity Cloudy (Clear); Urine Urobilinogen Normal (Normal); Urine pH 6.5 (5.0 - 8.0)
[2023-02-05 18:29] LABS: White Blood Cells >100 SEEN /hpf (0-5)
[2023-02-05 18:30] LABS: Bacteria RARE /hpf (None Seen); Red Blood Cells-Urine 0-5 SEEN /hpf (0-5); Squamous Epithelial Cells - UA 0-5 SEEN /hpf (5-10)
[2023-02-05] MEDS: oxyCODONE 5 MG Tablet PO (19:23)
--- NOTE | 2023-02-05 19:32 | EX.ED.UPPERE ---
HPI History of Present Illness Chief Complaint: Upper Extremity Injury Narrative Narrative: Patient presents with 3 different complaints. She is complaining of right hip pain and left elbow pain, as well as dysuria and strong smelling urine similar to prior UTIs. No fever or chills no history of trauma. The musculoskeletal complaints have been about a month. The urinary symptoms started today. 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 Type 2 diabetes mellitus without complication Vertigo Home Medications montelukast 10 mg tablet 10 mg PO DAILY ASTHMA 12/17/13 [History Last Taken 09/19/22] aspirin 81 mg tablet,delayed release 81 mg PO QDAY HEART HEALTH 11/19/17 [History Last Taken 09/20/22] cetirizine 10 mg tablet (Zyrtec) 10 mg PO QDAY allergies 02/15/20 [History Last Taken 09/19/22] allopurinol 100 mg tablet 100 mg PO DAILY GOUT 11/22/21 [History Last Taken 09/19/22] glipizide 10 mg tablet 5 mg PO BID DM 05/24/22 [History Last Taken 09/19/22] folic acid 1 mg tablet 1 mg PO DAILY SUPPLEMENT 08/28/22 [History Last Taken 09/19/22] spironolactone 25 mg tablet 25 mg PO DAILY HEART 08/28/22 [History Last Taken 09/20/22] ipratropium 20 mcg-albuterol 100 mcg/actuation mist for inhalation (Combivent Respimat) 1 puff inhalation Q6H BREATHING 09/20/22 [History Last Taken 09/20/22] pantoprazole 40 mg tablet,delayed release 40 mg PO BID 30 days #60 tabs 09/23/22 [Rx Last Taken Unknown] ferrous sulfate 325 mg (65 mg iron) tablet 325 mg PO BID SUPPLEMENT 10/04/22 [History Last Taken Unknown] carvedilol 25 mg tablet 25 mg PO BID #180 tabs 12/25/22 [Rx Last Taken Unknown] furosemide 40 mg tablet (Lasix) 40 mg PO DAILY 12/25/22 [History Last Taken Unknown] levothyroxine 100 mcg tablet 88 mcg PO DAILY THYROID 12/25/22 [History Last Taken Unknown] sulfamethoxazole 800 mg-trimethoprim 160 mg tablet (Bactrim DS) 1 tab PO BID #14 tabs 02/05/23 [Rx Last Taken Unknown] tramadol 50 mg tablet 50 mg PO Q4H PRN PRN Pain 3 days #12 tabs 02/05/23 [Rx Last Taken Unknown] Allergy/AdvReac Type Severity Reaction Status Date / Time Anesthetics - Amide Type - Allergy Other Verified 02/05/23 17:56 Select A [Anesthetics - Amide Type] acetaminophen [From Tylenol] AdvReac Severe Other Verified 02/05/23 17:56 pravastatin AdvReac Intermediate Myalgias Verified 02/05/23 18:00 after 15 years of taking cinnamon AdvReac Unknown Unknown Verified 02/05/23 17:56 Penicillins AdvReac Unknown Unknown Verified 02/05/23 17:56 Family History Mother , age 86, advanced age No problems noted. Father Prostate cancer Surgical History H/O coronary artery bypass surgery (10/11/07) History of cholecystectomy History of coronary artery stent placement (01/26/21) History of hysterectomy Hx of appendectomy Hx of bilateral cataract extraction Social History Smoking Status: Never smoker alcohol intake: never substance use type: does not use caffeine: Yes Type: carbonated beverages what type of physical activity do you participate in: none seatbelt use: always do you feel safe at home: Yes ROS ROS ED ROS Narrative Past medical history: Reviewed Medications: Reviewed Social history: Noncontributory Review of systems: All systems negative except as indicated General: No fever Cardiovascular: No chest pain Respiratory: No shortness of breath or cough Gastrointestinal: No abdominal pain, nausea vomiting or diarrhea Genitourinary: As in HPI Musculoskeletal: As in HPI Skin: No rash Neurological: No memory loss, confusion or any focal weakness EXAM Physical Exam Narrative Exam Narrative: Physical exam General: Well nourished, Well developed, No Acute Distress Head: Normocephalic, Atraumatic Eyes: Conjunctiva not pale ENT: Moist mucous membranes Neck: Supple, Nontender, No lymphadenopathy Cardiovascular: Regular rate, Regular rhythm Respiratory: No distress, CTA bilaterally Abdomen: Soft, Nontender, Nondistended Back: Nontender, Normal Inspection. Negative for: CVA tenderness Extremities: Patient has full range of motion of the left shoulder but tenderness especially to AB duction greater than 90 degrees. Right hip shows tenderness over the greater trochanter although she also has tenderness over the SI joint. She has some pain with flexion of the hip but no significant pain with logrolling. No erythema or calor. Skin: Normal color, No rash Neurological: Alert, Normal Strength, Normal Sensation Const Vital Signs: 02/05/23 17:55 Temperature 98.4 F Temperature Source Temporal Pulse Rate 88 Respiratory Rate 18 Blood Pressure 177/74 H Blood Pressure Mean 108 Pulse Ox 99 Oxygen Delivery Method Room Air MDM MDM MDM Narrative Medical decision making narrative: Right hip x-ray read by me is normal except slight DJD Left shoulder x-ray read by me as normal with slight arthritis MDM: I talked to the patient and son who is in the room thus far as gathering history. Patient at this time has no signs or symptoms of any kind of infectious arthritis therefore I do not believe inflammatory markers or blood work is needed. There is no trauma and no evidence of any bony abnormalities. She is also on statins which could cause a lot of her myalgias because she has had right shoulder pain and other type of myalgias. She could have sacroiliitis or bursitis regardless we will treat with analgesia. She also has a UTI which I will treat. Lab Data Labs: Laboratory Results - last 24 hr 02/05/23 18:00 Urine Color Straw Urine Clarity Cloudy Urine pH 6.5 Ur Specific [place] 1.010 Urine Protein 30 H Urine Glucose (UA) Normal Urine Ketones Negative Urine Occult Blood 25 H Urine Nitrite Negative Urine Bilirubin Negative Urine Urobilinogen Normal Ur Leukocyte Esterase 500 H Urine RBC 0-5 SEEN Urine WBC >100 SEEN Ur Squamous Epith Cells 0-5 SEEN Urine Bacteria RARE Urine Mucus 0 SEEN Discharge Plan Triage Chief Complaint: Upper Extremity Injury Other Complaint: Complaint ED Provider: Heriberto Rodriguez Dx/Rx/DC Orders Clinical Impression: Acute pain of left shoulder, Acute pain of left hip, Urinary tract infection Instructions: UTIs Understanding, ED Arthralgia Prescriptions: New tramadol 50 mg tablet 50 mg PO Q4H PRN PRN (Reason: Pain) 3 Days Qty: 12 0RF sulfamethoxazole-trimethoprim [Bactrim DS] 800-160 mg tablet 1 tab PO BID Qty: 14 0RF No Action aspirin 81 mg tablet,delayed release (DR/EC) 81 mg PO QDAY cetirizine [Zyrtec] 10 mg tablet 10 mg PO QDAY glipizide 10 mg tablet 5 mg PO BID allopurinol 100 mg tablet 100 mg PO DAILY Label Comments: TAKE 1 TABLET BY MOUTH ONCE DAILY levothyroxine 100 mcg tablet 88 mcg PO DAILY Label Comments: TAKE 1 TABLET BY MOUTH ONCE DAILY furosemide [Lasix] 40 mg tablet 40 mg PO DAILY Rx Instructions: 1/4 pill twice a week carvedilol 25 mg tablet 25 mg PO BID Qty: 180 3RF spironolactone 25 mg tablet 25 mg PO DAILY folic acid 1 mg tablet 1 mg PO DAILY ferrous sulfate 325 mg (65 mg iron) tablet 325 mg PO BID montelukast 10 MG tablet 10 mg PO DAILY Combivent Respimat 20-100 mcg/actuation mist 1 puff INHALATION Q6H pantoprazole 40 mg tablet,delayed release (DR/EC) 40 mg PO BID 30 Days Qty: 60 0RF Primary Care Provider: Tabatha Diaz Referrals: Tabatha Diaz MD [Primary Care Provider] - 3-5 Days Disposition Disposition: Home, Self Care
[2023-02-05 19:47] VITALS: RESP 18
== END 2023-02-05 19:48 | disposition home or self-care (01) ==
PROVIDERS: Emergency Provider Emergency Medicine; PCP Internal Medicine; Visit Provider Emergency Medicine
DX: M19.012 Primary osteoarthritis, left shoulder (principal); J44.9 Chronic obstructive pulmonary disease, unspecified; E11.22 Type 2 diabetes mellitus with diabetic chronic kidney disease; N39.0 Urinary tract infection, site not specified; M25.522 Pain in left elbow; I12.9 Hypertensive chronic kidney disease with stage 1 through stage 4 chronic kidney disease, or unspecified chronic kidney disease; E78.5 Hyperlipidemia, unspecified; M25.552 Pain in left hip; N18.9 Chronic kidney disease, unspecified; I25.10 Atherosclerotic heart disease of native coronary artery without angina pectoris; R30.0 Dysuria; Z95.1 Presence of aortocoronary bypass graft; M16.11 Unilateral primary osteoarthritis, right hip; Z79.899 Other long term (current) drug therapy
CPT/HCPCS: 73030; 73502; 81001; 99281; 99282

== ENCOUNTER 2023-02-08 14:45 | Emergency (ER) | payer MEDICARE, SELFPAY ==
[2021-03-16 09:07] VITALS: BMI 39.2
[2023-02-08 14:47] VITALS: BP 174/66; PULSE 73; RESP 18; TEMP 36.7; O2SAT 98
--- NOTE | 2023-02-08 14:57 | EDS_ITS ---
HPI <LAYNE Curry - Last Filed: 02/08/23 17:24> History of Present Illness Chief Complaint: Shortness of Breath Narrative Narrative: 77-year-old female with PMH of HTN, HLD, DM2, CAD with stents, CABG, CHF presents with acute onset shortness of breath that started around 1 PM at rest. She used her inhaler nebulizer with no improvement. She has had a lot of phlegm she has been clearing lately but no significant cough. No fever or chills. She has no chest pain or pressure. The shortness of breath did not seem worse when walking in from the parking lot. She occasionally has mild lower extremity edema and takes frusemide once a week as needed. No increase in swelling recently. No calf pain. No history of DVT/PE. 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 Atherosclerotic heart disease of [place] coronary artery without angina pectoris Cardiomyopathy CKD (chronic kidney disease) COPD (chronic obstructive pulmonary disease) COVID-19 (~04/2022) Essential hypertension GERD (gastroesophageal reflux disease) History of non-ST elevation myocardial infarction (NSTEMI) (01/26/21) Hyperlipidemia Hypothyroidism Insect bite Morbid obesity NSTEMI (non-ST elevated myocardial infarction) Obesity 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 Type 2 diabetes mellitus without complication Vertigo Home Medications montelukast 10 mg tablet 10 mg PO DAILY ASTHMA 12/17/13 [History Last Taken 09/19/22] aspirin 81 mg tablet,delayed release 81 mg PO QDAY HEART HEALTH 11/19/17 [History Last Taken 09/20/22] cetirizine 10 mg tablet (Zyrtec) 10 mg PO QDAY allergies 02/15/20 [History Last Taken 09/19/22] allopurinol 100 mg tablet 100 mg PO DAILY GOUT 11/22/21 [History Last Taken 09/19/22] glipizide 10 mg tablet 5 mg PO BID DM 05/24/22 [History Last Taken 09/19/22] folic acid 1 mg tablet 1 mg PO DAILY SUPPLEMENT 08/28/22 [History Last Taken 09/19/22] spironolactone 25 mg tablet 25 mg PO DAILY HEART 08/28/22 [History Last Taken 09/20/22] ipratropium 20 mcg-albuterol 100 mcg/actuation mist for inhalation (Combivent Respimat) 1 puff inhalation Q6H BREATHING 09/20/22 [History Last Taken 09/20/22] pantoprazole 40 mg tablet,delayed release 40 mg PO BID 30 days #60 tabs 09/23/22 [Rx Last Taken Unknown] ferrous sulfate 325 mg (65 mg iron) tablet 325 mg PO BID SUPPLEMENT 10/04/22 [History Last Taken Unknown] carvedilol 25 mg tablet 25 mg PO BID #180 tabs 12/25/22 [Rx Last Taken Unknown] furosemide 40 mg tablet (Lasix) 40 mg PO DAILY 12/25/22 [History Last Taken Unkn own] levothyroxine 100 mcg tablet 88 mcg PO DAILY THYROID 12/25/22 [History Last Taken Unknown] sulfamethoxazole 800 mg-trimethoprim 160 mg tablet (Bactrim DS) 1 tab PO BID #14 tabs 02/05/23 [Rx Last Taken Unknown] tramadol 50 mg tablet 50 mg PO Q4H PRN PRN Pain 3 days #12 tabs 02/05/23 [Rx Last Taken Unknown] Allergy/AdvReac Type Severity Reaction Status Date / Time Anesthetics - Amide Type - Allergy Other Verified 02/05/23 17:56 Select A [Anesthetics - Amide Type] acetaminophen [From Tylenol] AdvReac Severe Other Verified 02/05/23 17:56 pravastatin AdvReac Intermediate Myalgias Verified 02/05/23 18:00 after 15 years of taking cinnamon AdvReac Unknown Unknown Verified 02/05/23 17:56 Penicillins AdvReac Unknown Unknown Verified 02/05/23 17:56 Family History Mother , age 86, advanced age No problems noted. Father Prostate cancer Surgical History H/O coronary artery bypass surgery (10/11/07) History of cholecystectomy History of coronary artery stent placement (01/26/21) History of hysterectomy Hx of appendectomy Hx of bilateral cataract extraction Social History Smoking Status: Never smoker alcohol intake: never substance use type: does not use caffeine: Yes Type: carbonated beverages what type of physical activity do you participate in: none seatbelt use: always do you feel safe at home: Yes ROS <LAYNE Curry - Last Filed: 02/08/23 17:24> ROS ED ROS Narrative Constitutional: Negative for fever, chills, malaise. CVS: Negative for palpitations, chest pain, syncope. Respiratory: Positive for shortness of breath.. GI: Negative for abdominal pain, nausea, vomiting. Neuro: Negative for headache. Musc: Negative for joint pain, swelling, trauma. EXAM <LAYNE Curry - Last Filed: 02/08/23 17:24> Physical Exam Narrative Exam Narrative: CONST: Patient sitting in no acute distress. EYES: Normal inspection. ENT: Normal inspection, moist mucous membranes. NECK: Normal inspection. RESP: No respiratory distress, mild expiratory wheeze in both bases. CVS: Regular rate and rhythm, no murmur, no gallop. ABD: Soft and nontender, no guarding or rebound, nondistended. SKIN: Color normal, no rash, warm, dry, intact. EXTREMITIES: Normal appearance, no pedal edema. NEURO: Oriented x4. PSYCH: Normal affect. Const Vital Signs: 02/08/23 14:47 02/08/23 14:51 02/08/23 16:03 Temperature 98.1 F Temperature Source Temporal Pulse Rate 73 68 Respiratory Rate 18 18 Respiratory Effort Short of Breath Respiratory Depth Normal Respiratory Pattern Normal Blood Pressure 174/66 H Blood Pressure Mean 102 Pulse Ox 98 Oxygen Delivery Method Room Air Room Air 02/08/23 15:46 02/08/23 16:46 Temperature Temperature Source Pulse Rate 64 Respiratory Rate 15 16 Respiratory Effort Respiratory Depth Respiratory Pattern Blood Pressure 160/65 H Blood Pressure Mean 96 Pulse Ox 100 Oxygen Delivery Method Room Air <Dr. Manolo Ramos MD - Last Filed: 02/08/23 17:17> Physical Exam Const Vital Signs: 02/08/23 14:47 02/08/23 14:51 02/08/23 16:03 Temperature 98.1 F Temperature Source Temporal Pulse Rate 73 68 Respiratory Rate 18 18 Respiratory Effort Short of Breath Respiratory Depth Normal Respiratory Pattern Normal Blood Pressure 174/66 H Blood Pressure Mean 102 Pulse Ox 98 Oxygen Delivery Method Room Air Room Air 02/08/23 15:46 02/08/23 16:46 Temperature Temperature Source Pulse Rate 64 Respiratory Rate 15 16 Respiratory Effort Respiratory Depth Respiratory Pattern Blood Pressure 160/65 H Blood Pressure Mean 96 Pulse Ox 100 Oxygen Delivery Method Room Air [facility] <LAYNE Curry - Last Filed: 02/08/23 17:24> [facility] Narrative Medical decision making narrative: Patient here with acute onset shortness of breath at rest. Also having mild congestion but otherwise been in good health this week. She appears well and nontoxic. She is hypertensive with otherwise normal vital signs. 98% or above on room air and able to speak in full sentences in no distress. On exam she has a very mild expiratory wheeze otherwise unremarkable. EKG is unchanged from previous with no acute ischemia and troponin is 14. CBC shows mild anemia at 10.1, BMP shows potassium of 5.8, creatinine 2.51 slightly worsening over time. There are no EKG hyperkalemic changes. She was given albuterol and told to have her PCP recheck potassium levels next week. I paged her PCP to make sure this is arranged. CXR shows no acute process. Viral swab is positive for influenza B which may explain her developing symptoms although she does not look ill. At this point I feel she is stable to go home, continue inhaler and nebulizer, should return if symptoms worsen. She was discharged in stable condition. Differential for shortness of breath: URI, COPD exacerbation, ACS Test considered: She has no history or risk factors for DVT/PE and is 99 to 100% on room air so I did not order D-dimer. External records reviewed: Stress test on 09/27/2022 showed EF 44%, abnormal stress test with evidence of anterolateral ischemia and anteroapical infarct. Cardiology note from 12/25/2022 states that even though stress test was abnormal with her renal function and lack of cardiac symptoms it was opted to treat medically. I have personally performed a face to face assessment of the patient and have reviewed the EM Note. I performed a substantive portion of the visit including all aspects of the following. My romero findings include: History is evaluated this 77-year-old female complaining of shortness of breath with her physician city carrier assistant. Patient denies any chest pain, fever or chills. No vomiting or diarrhea. No melena. No hemoptysis. No leg pain or swelling. Exam is [well-appearing 69-year-old female vital signs are stable. She is a does not look septic or toxic. Pulse ox mom in the room on room air is 99%. She is in no distress. H EENT exam unremarkable. Neck nontender no JVD. Lungs fair to auscultation bilaterally. I believe she is already received an aerosol . Heart regular rhythm rate about 70 no murmur. Chest wall nontender. Abdomen nontender. Moving all 4 extremities. Calves are nontender without edema or cords. Neurologically she is awake and alert.] Medical Decision Making [77-year-old complaining of dyspnea. No DVT or PE risk factors. Her cardiac work-up including chest x-ray basically unremarkable. She has a chronic anemia of 10.1. Her potassium is elevated 5.8. She is normal gap of 5. BUN of 41 creatinine 2.51. She has a history of renal insufficiency. Glucose 256. Troponins unremarkable. BNP is 315. Patient doing well on repeat exam at 5:05 PM. She will be discharged home. She is flu be positive whether that is the reason why she is feeling short of breath which is since resolved may or may not be the case. There is no signs of pneumonia on the chest x-ray. There is no signs of this being cardiac etiology. She will need follow-up for potassium of 5.8.] Other additions or changes: [None] Lab Data Labs: Laboratory Results - last 24 hr 02/08/23 02/08/23 02/08/23 14:50 14:50 14:50 WBC 9.0 RBC 3.22 L Hgb 10.1 L Hct 30.6 L MCV 95.0 MCH 31.4 MCHC 33.0 RDW Std Deviation 50.1 H RDW Coeff of Kamar 14.3 Plt Count 290 MPV 10.5 Immature Gran % (Auto) 0.400 Neut % (Auto) 83.8 H Lymph % (Auto) 13.3 L [place] % (Auto) 1.7 Eos % (Auto) 0.2 Baso % (Auto) 0.6 Absolute Neuts (auto) 7.6 Absolute Lymphs (auto) 1.20 Nucleated RBC % 0 Sodium 136 Potassium 5.8 H Chloride 107 Carbon Dioxide 24.0 Anion Gap 5 BUN 41 H Creatinine 2.51 H Est GFR (MDRD) Af Amer 24 L Est GFR (MDRD) Non-Af 20 L BUN/Creatinine Ratio 16.3 Glucose 256 H Calcium 8.9 Troponin I High Sens 14 B-Natriuretic Peptide 315.2 H Radiography Diagnostic Testing: Clinical Impression(s) from Imaging Studies Chest X-Ray 02/08/23 15:05 IMPRESSION: Stable hilar bronchiectasis and left lower lobe chronic interstitial changes. Electronically Signed: Keon ThompsonDO at 15:22 EDT , EKG Initial EKG: Attestation: I personally reviewed and interpreted this EKG as follows: <Dr. Manolo Ramos MD - Last Filed: 02/08/23 17:17> [facility] MDM Narrative Medical decision making narrative: External records reviewed: Stress test on 09/27/2022 showed EF 44%, abnormal stre ss test with evidence of anterolateral ischemia and anteroapical infarct. Cardiology note from 12/25/2022 states that even though stress test was abnormal with her renal function and lack of cardiac symptoms it was opted to treat medically. I have personally performed a face to face assessment of the patient and have reviewed the EM Note. I performed a substantive portion of the visit including all aspects of the following. My romero findings include: History is evaluated this 77-year-old female complaining of shortness of breath with her physician city carrier assistant. Patient denies any chest pain, fever or chills. No vomiting or diarrhea. No melena. No hemoptysis. No leg pain or swelling. Exam is [well-appearing 69-year-old female vital signs are stable. She is a does not look septic or toxic. Pulse ox mom in the room on room air is 99%. She is in no distress. H EENT exam unremarkable. Neck nontender no JVD. Lungs fair to auscultation bilaterally. I believe she is already received an aerosol. Heart regular rhythm rate about 70 no murmur. Chest wall nontender. Abdomen nontender. Moving all 4 extremities. Calves are nontender without edema or cords. Neurologically she is awake and alert.] Medical Decision Making [77-year-old complaining of dyspnea. No DVT or PE risk factors. Her cardiac work-up including chest x-ray basically unremarkable. She has a chronic anemia of 10.1. Her potassium is elevated 5.8. She is normal gap of 5. BUN of 41 creatinine 2.51. She has a history of renal insufficiency. Glucose 256. Troponins unremarkable. BNP is 315. Patient doing well on repeat exam at 5:05 PM. She will be discharged home. She is flu be positive whether that is the reason why she is feeling short of breath which is since resolved may or may not be the case. There is no signs of pneumonia on the chest x-ray. There is no signs of this being cardiac etiology. She will need follow-up for potassium of 5.8.] Other additions or changes: [None] Lab Data Labs: Laboratory Results - last 24 hr 02/08/23 02/08/23 02/08/23 14:50 14:50 14:50 WBC 9.0 RBC 3.22 L Hgb 10.1 L Hct 30.6 L MCV 95.0 MCH 31.4 MCHC 33.0 RDW Std Deviation 50.1 H RDW Coeff of Kamar 14.3 Plt Count 290 MPV 10.5 Immature Gran % (Auto) 0.400 Neut % (Auto) 83.8 H Lymph % (Auto) 13.3 L [place] % (Auto) 1.7 Eos % (Auto) 0.2 Baso % (Auto) 0.6 Absolute Neuts (auto) 7.6 Absolute Lymphs (auto) 1.20 Nucleated RBC % 0 Sodium 136 Potassium 5.8 H Chloride 107 Carbon Dioxide 24.0 Anion Gap 5 BUN 41 H Creatinine 2.51 H Est GFR (MDRD) Af Amer 24 L Est GFR (MDRD) Non-Af 20 L BUN/Creatinine Ratio 16.3 Glucose 256 H Calcium 8.9 Troponin I High Sens 14 B-Natriuretic Peptide 315.2 H Radiography Diagnostic Testing: Clinical Impression(s) from Imaging Studies Chest X-Ray 02/08/23 15:05 IMPRESSION: Stable hilar bronchiectasis and left lower lobe chronic interstitial changes. Electronically Signed: Keon Thompson DO at 15:22 EDT , Discharge Plan Triage Chief Complaint: Shortness of Breath ED Midlevel Provider: Naa Woodruff ED Provider: Manolo Ramos Dx/Rx/DC Orders Clinical Impression: Influenza B, Acute hyperkalemia, Acute dyspnea, Chronic renal insufficiency Instructions: ED Dyspnea, ED Influenza (Adult) Prescriptions: No Action aspirin 81 mg tablet,delayed release (DR/EC) 81 mg PO QDAY cetirizine [Zyrtec] 10 mg tablet 10 mg PO QDAY glipizide 10 mg tablet 5 mg PO BID allopurinol 100 mg tablet 100 mg PO DAILY Label Comments: TAKE 1 TABLET BY MOUTH ONCE DAILY levothyroxine 100 mcg tablet 88 mcg PO DAILY Label Comments: TAKE 1 TABLET BY MOUTH ONCE DAILY furosemide [Lasix] 40 mg tablet 40 mg PO DAILY Rx Instructions: 1/4 pill twice a week carvedilol 25 mg tablet 25 mg PO BID Qty: 180 3RF spironolactone 25 mg tablet 25 mg PO DAILY folic acid 1 mg tablet 1 mg PO DAILY ferrous sulfate 325 mg (65 mg iron) tablet 325 mg PO BID montelukast 10 MG tablet 10 mg PO DAILY Combivent Respimat 20-100 mcg/actuation mist 1 puff INHALATION Q6H pantoprazole 40 mg tablet,delayed release (DR/EC) 40 mg PO BID 30 Days Qty: 60 0RF tramadol 50 mg tablet 50 mg PO Q4H PRN PRN (Reason: Pain) 3 Days Qty: 12 0RF sulfamethoxazole-trimethoprim [Bactrim DS] 800-160 mg tablet 1 tab PO BID Qty: 14 0RF Primary Care Provider: Tabatha Diaz Referrals: Tabatha Diaz MD [Primary Care Provider] - Activity Restrictions/Additional Instructions: Return to ER if symptoms worsen. Have your PCP recheck your potassium level this week. Disposition Disposition: Home, Self Care
--- NOTE | 2023-02-08 15:05 | RAD_ITS ---
STUDY: X-RAY CHEST REASON FOR EXAM: Female, 77 years old. dyspnea TECHNIQUE: PA and lateral views of the chest. COMPARISON: 11/15/2022 FINDINGS: Left lower lobe chronic interstitial markings similar to prior exam are present. Central bronchiectatic changes are also present and stable. There is no demonstrated pleural abnormality. Normal size heart. Normal mediastinum and teri. Normal visualized pulmonary arteries. There is atherosclerotic calcification of the aortic arch with tortuosity. Normal visualized thoracic spine. Normal visualized ribs, clavicles, and shoulders. There is no demonstrated abnormality of the visualized soft tissue structures of the upper abdomen. RAD/Chest PA and Lateral IMPRESSION: Stable hilar bronchiectasis and left lower lobe chronic interstitial changes. Electronically Signed: Keon Thompson DO at 15:22 EDT ,
[2023-02-08 15:30] LABS: Absolute Neutrophil Count 7.6 X10^3/uL (2.0-7.7); Basophil# 0.05 X10^3/uL; Basophil% 0.6 % (0-1); Eosinophil# 0.02 X10^3/uL; Eosinophils% 0.2 % (0-5); Hematocrit 30.6 % (37-47); Hemoglobin 10.1 g/dL (12.0-15.0); Lymphocyte % 13.3 % (19-41); Mean Corpuscular Hgb 31.4 pg (27.0-32.0); Mean Platelet Vol. 10.5 fl (6.2-12.0); Monocyte# 0.15 X10^3/uL; Monocyte% 1.7 % (0-10); NRBC Flagged by Analyzer 0 % (0-5); Neutrophil # 7.57 X10^3/uL (2.7-7.7); Neutrophil % 83.8 % (47-70); Platelet Count 290 K/mm3 (150-450); RBC Distribution Width CV 14.3 % (11.6-14.6); RBC Distribution Width SD 50.1 fl (35.1-43.9); Red Blood Count 3.22 M/mm3 (4.2-5.4)
[2023-02-08 15:46] VITALS: BP 160/65; PULSE 64; RESP 15; O2SAT 100
[2023-02-08 15:47] LABS: Anion Gap 5 (5-15); BUN 41 mg/dL (7-18); BUN/Creat Ratio 16.3 RATIO (10-20); Calcium,Total 8.9 mg/dL (8.5-10.1); Chloride 107 mmol/L (98-107); Creatinine, Serum 2.51 mg/dL (0.55-1.02); EST Glomerular Filtration Rate 20 mL/min (>60); Est Glom Filt Rate - Afr Amer 24 mL/min (>60); Glucose 256 mg/dL (74-106); Potassium 5.8 mmol/L (3.5-5.1); Sodium Level 136 mmol/L (136-145); Troponin-I HS (w/2H Reflex) 14 pg/mL (3.0-54.0)
--- NOTE | 2023-02-08 15:59 | EKG12_ITS ---
Test Reason : CP Blood Pressure : / mmHG Vent. Rate : 074 BPM Atrial Rate : 074 BPM P-R Int : 156 ms QRS Dur : 100 ms QT Int : 410 ms P-R-T Axes : 031 040 116 degrees QTc Int : 455 ms Normal sinus rhythm ST & T wave abnormality, consider lateral ischemia Abnormal ECG When compared with ECG of 15-NOV-2022 22:55, Previous ECG has undetermined rhythm, needs review Left posterior fascicular block is no longer Present Confirmed by ARNALDO DUQUE, DARLENE ([id number]), film or videotape editor SUKHDEEP CONTRERAS ([id number]) on 02/12/2023 9:43:12 AM Referred By: Confirmed By:DARLENE MCINTOSH MD
[2023-02-08 16:03] VITALS: PULSE 68; RESP 18
[2023-02-08] MEDS: Albuterol 2.5 MG/3 ML VIAL.NEB. INHALATION (16:03)
[2023-02-08 16:07] LABS: BNP,B-Type NATRIURETIC PEPTIDE 315.2 pg/mL (0-100)
[2023-02-08 16:46] VITALS: RESP 16
[2023-02-08 16:47] VITALS: O2SAT 98
[2023-02-08 17:01] LABS: Reflex Troponin-HS? (from REC) Y
== END 2023-02-08 17:23 | disposition home or self-care (01) ==
PROVIDERS: Physician Assistant; Emergency Provider Emergency Medicine; PCP Internal Medicine; Visit Provider Emergency Medicine
DX: J10.1 Influenza due to other identified influenza virus with other respiratory manifestations (principal); J44.9 Chronic obstructive pulmonary disease, unspecified; I13.0 Hypertensive heart and chronic kidney disease with heart failure and stage 1 through stage 4 chronic kidney disease, or unspecified chronic kidney disease; I50.9 Heart failure, unspecified; E11.22 Type 2 diabetes mellitus with diabetic chronic kidney disease; E87.5 Hyperkalemia; N18.9 Chronic kidney disease, unspecified; D64.9 Anemia, unspecified; I25.10 Atherosclerotic heart disease of native coronary artery without angina pectoris; E78.5 Hyperlipidemia, unspecified; Z95.1 Presence of aortocoronary bypass graft
CPT/HCPCS: 71046; 80048; 83880; 84484; 85025; 87428; 93005; 94640; 99284; A4216

== ENCOUNTER 2023-04-20 13:00 | Emergency (ER) | payer MEDICARE, SELFPAY ==
[2021-03-16 09:07] VITALS: BMI 39.2
[2023-04-20 13:01] VITALS: BP 185/73; PULSE 86; RESP 16; TEMP 36.1; O2SAT 100
[2023-04-20 13:07] VITALS: BMI 36.5
--- NOTE | 2023-04-20 13:13 | EX.ED.DYSGE1 ---
HPI History of Present Illness Chief Complaint: Other, Pain/Inj Detail of Chief Complaint: Neck and arm pain. Informant: patient Onset/Context/Timing Onset: Days Context: Gradual Onset Timing: Continuous Current Severity: Mild Maximum Severity: Moderate Narrative Narrative: 78-year-old female history of CAD, MA, CABG, CKD, COPD and diabetes. She is on aspirin but no other blood thinners. For the last 3 to 4 months she has had discomfort in both arms. She thought it was related to be on a statin which she has since stopped. The last 3 to 4 days she has had neck discomfort also. No fall injury or trauma. No fever. No chest pain or shortness of breath. She has never had any surgery to her neck or back. She denies any type of fall or trauma. Prior similar symptoms: Yes Recent Illness/Hospitalization: No PFSH PFSH Medical History Arm paresthesia, right Asthma Atherosclerosis of coronary artery bypass graft without angina pectoris Atherosclerotic heart disease of [place] coronary artery without angina pectoris Cardiomyopathy CKD (chronic kidney disease) COPD (chronic obstructive pulmonary disease) COVID-19 (~04/2022) Essential hypertension GERD (gastroesophageal reflux disease) History of non-ST elevation myocardial infarction (NSTEMI) (01/26/21) Hyperlipidemia Hypothyroidism Insect bite Morbid obesity NSTEMI (non-ST elevated myocardial infarction) Obesity 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 Type 2 diabetes mellitus without complication Vertigo Home Medications montelukast 10 mg tablet 10 mg PO DAILY ASTHMA 12/17/13 [History Last Taken 09/19/22] aspirin 81 mg tablet,delayed release 81 mg PO QDAY HEART HEALTH 11/19/17 [History Last Taken 09/20/22] cetirizine 10 mg tablet (Zyrtec) 10 mg PO QDAY allergies 02/15/20 [History Last Taken 09/19/22] allopurinol 100 mg tablet 100 mg PO DAILY GOUT 11/22/21 [History Last Taken 09/19/22] glipizide 10 mg tablet 5 mg PO BID DM 05/24/22 [History Last Taken 09/19/22] folic acid 1 mg tablet 1 mg PO DAILY SUPPLEMENT 08/28/22 [History Last Taken 09/19/22] spironolactone 25 mg tablet 25 mg PO DAILY HEART 08/28/22 [History Last Taken 09/20/22] ipratropium 20 mcg-albuterol 100 mcg/actuation mist for inhalation (Combivent Respimat) 1 puff inhalation Q6H BREATHING 09/20/22 [History Last Taken 09/20/22] pantoprazole 40 mg tablet,delayed release 40 mg PO BID 30 days #60 tabs 09/23/22 [Rx Last Taken Unknown] ferrous sulfate 325 mg (65 mg iron) tablet 325 mg PO BID SUPPLEMENT 10/04/22 [History Last Taken Unknown] carvedilol 25 mg tablet 25 mg PO BID #180 tabs 12/25/22 [Rx Last Taken Unknown] furosemide 40 mg tablet (Lasix) 40 mg PO DAILY 12/25/22 [History Last Taken Unknown] levothyroxine 100 mcg tablet 88 mcg PO DAILY THYROID 12/25/22 [History Last Taken Unknown] sulfamethoxazole 800 mg-trimethoprim 160 mg tablet (Bactrim DS) 1 tab PO BID #14 tabs 02/05/23 [Rx Last Taken Unknown] tramadol 50 mg tablet 50 mg PO Q4H PRN PRN Pain 3 days #12 tabs 02/05/23 [Rx Last Taken Unknown] sulfamethoxazole 800 mg-trimethoprim 160 mg tablet (Bactrim DS) 1 tab PO BID 7 days #14 tabs 04/20/23 [Rx Last Taken Unknown] Allergy/AdvReac Type Severity Reaction Status Date / Time Anesthetics - Amide Type - Allergy Other Verified 04/20/23 13:01 Select A [Anesthetics - Amide Type] acetaminophen [From Tylenol] AdvReac Severe Other Verified 04/20/23 13:01 pravastatin AdvReac Intermediate Myalgias Verified 04/20/23 13:01 after 15 years of taking cinnamon AdvReac Unknown Unknown Verified 04/20/23 13:01 Penicillins AdvReac Unknown Unknown Verified 04/20/23 13:01 Family History Mother , age 86, advanced age No problems noted. Father Prostate cancer Surgical History H/O coronary artery bypass surgery (10/11/07) History of cholecystectomy History of coronary artery stent placement (01/26/21) History of hysterectomy Hx of appendectomy Hx of bilateral cataract extraction Social History Smoking Status: Never smoker alcohol intake: never substance use type: does not use caffeine: Yes Type: carbonated beverages what type of physical activity do you participate in: none seatbelt use: always do you feel safe at home: Yes ROS ROS ED ROS Narrative Neck pain. No recent illness. Review of Systems ROS Unobtainable: Denies due to encephalopathy Constitutional Constitutional ED: Denies chills or fever(s) Eyes Eyes: Denies blurry vision ENT ENT ED: Denies ear pain Cardiovascular Cardiovascular: Denies chest pain Respiratory/Chest Respiratory/Chest: Denies cough or dyspnea Gastrointestinal Gastrointestinal: Denies abdominal pain Genitourinary Genitourinary ED: Denies dysuria or hematuria Musculoskeletal Musculoskeletal: Reports neck pain; Denies arthralgias Integumentary Denies abscess or Abrasions Neurologic Neurologic: Denies headache(s) Psychiatric Psychiatric: Denies anxiety Endocrine Endocrinology: Denies cold intolerance Hematologic/Lymphatic Hematologic/Lymphatic: Reports none; Denies easy bruising Allergic/Immunologic Allergic/Immunologic ED: Denies mouth swelling, tongue swelling or urticaria EXAM Physical Exam Narrative Exam Narrative: 78-year-old female. No acute distress. Accompanied by I believe her son. Vital signs are stable afebrile. She does not look septic or toxic. HEENT exam unremarkable. Neck there is no reproducible neck tenderness. Its not stiff. Trachea midline. No lymphadenopathy. She is able to do flexion extension and rotation neck it does cause her more discomfort. Lungs are clear. Heart regular rhythm rate about 80. Chest wall and ribs nontender. Abdomen soft nontender. Back and spine nontender. Moving all 4 extremities. 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 Normal sensation. Normal radial pulses. Normal dorsi plantarflexion of the lower extremities. Neurologically she is awake and alert with no focal motor deficits. Const Vital Signs: 04/20/23 13:01 04/20/23 13:07 Temperature 97 F L Temperature Source Temporal Pulse Rate 86 Respiratory Rate 16 Respiratory Effort Normal Respiratory Pattern Normal Blood Pressure 185/73 H Blood Pressure Mean 110 Pulse Ox 100 Oxygen Delivery Method Room Air Positive well nourished and well developed; Negative for cachectic, contractures or unkempt General Appearance ED: well developed and NAD; Negative for unkempt, cachectic, contractures, cyanotic, diaphoretic or pallor Nutritional Appearance: Negative for cachectic HEENT Reports moist mucous membranes; Denies dry mucous membranes Negative for trauma or tenderness Mouth ED: No dry mucous membranes Mouth: No dry mucous membranes Eyes PERRL and EOMs intact bilaterally General Eye ED: Negative for pale conjunctiva, scleral icterus or other Neck no lymphadenopathy, supple and no JVD General: Negative for tenderness Lymph Lymphatic: Negative for other Chest Wall inspection of chest normal and palpation of chest normal Chest: Negative for other Resp normal respiratory effort and clear to auscultation bilaterally Effort and Inspection: Negative for retractions Auscultation: Negative for rales, rhonchi or wheezes Cardio regular rate, regular rhythm, S1 normal heart sound, S2 normal heart sound and no murmurs Palpation: Negative for palpable S3 or palpable S4 Rate: Negative for bradycardia or tachycardic Rhythm: Negative for abnormal rhythm GI normal to inspection, nondistended, normoactive bowel sounds, non-tender, non-distended and no masses Inspection: Negative for abdominal distention Auscultation: normoactive bowel sounds Palpation: soft; Negative for tender or guarding Bladder / Kidney Exam: No other Back/Spine no CVA tenderness General Back: Negative for CVA tenderness Cervical Spine: Negative for cervical spine tenderness Thoracic Spine / Upper Back: Negative for thoracic spinal tenderness Lumbar Spine / Lower Back: Negative for lumbar spinal tenderness Extremity normal to inspection General Extremety ED: Negative for edema or tenderness General Extremity: Negative for edema Neuro oriented x3, CN's II-XII intact bilaterally and No no sensory deficits noted Sensorium / Orientation: alert and orientation impaired; Negative for lethargic or stuporous Motor Exam: strength 5/5 throughout Psych mental status grossly normal Appearance: Negative for unkempt Attitude: No agitated Mood & Affect: Negative for depressed, anxious or tearful Skin no rashes or lesions noted, no wounds and skin turgor normal General Skin Exam: elasticity normal; Negative for jaundice or pallor Lesions: No lesion noted Rashes: No rashes noted Trauma: Negative for abrasion Wounds: Negative for wounds noted MDM MDM MDM Narrative Medical decision making narrative: 78-year-old female history of chronic paresthesias in the right upper extremity. Now with atraumatic neck pain. I suspect this is secondary to degenerative disc disease and/or degenerative arthritis. She had no falls or trauma. Patient does not believe it is arthritis related. X-rays being obtained. She has an allergy to Tylenol will take Tylenol anything with Tylenol in it. She cannot take NSAIDs due to chronic kidney disease. Repeat exam at 3:15 PM. Doing well. She was given a subcu injection of morphine. P.o. Zofran. Due to the UTI a urine culture be sent. She will be started on Bactrim 1 twice a day for a week. She is taken it before. She will get be given first dose here and prescription sent to her pharmacy. She will follow-up with her primary care physician to ensure she is improving. If her neck pain is not improving she may need higher level imaging such as an MRI. History & Record Review Discussion w/independent historian: Patient and Family Additional record(s) reviewed:: Prior inpatient record, Prior outpatient record, Prior ED visit and Prior labs Lab Data Attestation: I reviewed the patient's lab results. Lab results narrative: Urinalysis shows 5-10 red cells. Grade 100 white cells. 1+ bacteria. Consistent with UTI. Urine culture sent. She will be started on antibiotics. Labs: Laboratory Results - last 24 hr 04/20/23 14:10 Urine Color Yellow Urine Clarity Sl. Cloudy Urine pH 6.5 Ur Specific [place] 1.010 Urine Protein 30 H Urine Glucose (UA) Normal Urine Ketones Negative Urine Occult Blood 50 H Urine Nitrite Negative Urine Bilirubin Negative Urine Urobilinogen Normal Ur Leukocyte Esterase 500 H Urine RBC 5-10 SEEN Urine WBC >100 SEEN Ur Squamous Epith Cells 0-5 SEEN Urine Bacteria 1+ Urine Mucus 0 SEEN Radiography Chest X-Ray - ED: Read by ED Physician Diagnostic Testing: Clinical Impression(s) from Imaging Studies Cervical Spine X-Ray 04/20/23 13:22 IMPRESSION: Degenerative changes in the lower cervical spine.. Electronically Signed: Donald Lee MD at 13:48 EDT , Cervical spine x-rays obtained 3 views interpreted by myself. Shows no acute abnormality. Chronic degenerative changes. Discharge Plan Triage Chief Complaint: Other, Pain/Inj Other Complaint: Upper Extremity Injury ED Provider: Manolo Ramos Dx/Rx/DC Orders Clinical Impression: Cervical arthritis, Acute UTI Instructions: Urinary Tract Infections in Women, ED Neck Pain Prescriptions: New sulfamethoxazole-trimethoprim [Bactrim DS] 800-160 mg tablet 1 tab PO BID 7 Days Qty: 14 0RF No Action aspirin 81 mg tablet,delayed release (DR/EC) 81 mg PO QDAY cetirizine [Zyrtec] 10 mg tablet 10 mg PO QDAY glipizide 10 mg tablet 5 mg PO BID allopurinol 100 mg tablet 100 mg PO DAILY Patient Comments: TAKE 1 TABLET BY MOUTH ONCE DAILY levothyroxine 100 mcg tablet 88 mcg PO DAILY Patient Comments: TAKE 1 TABLET BY MOUTH ONCE DAILY furosemide [Lasix] 40 mg tablet 40 mg PO DAILY Rx Instructions: 1/4 pill twice a week carvedilol 25 mg tablet 25 mg PO BID Qty: 180 3RF spironolactone 25 mg tablet 25 mg PO DAILY folic acid 1 mg tablet 1 mg PO DAILY ferrous sulfate 325 mg (65 mg iron) tablet 325 mg PO BID montelukast 10 MG tablet 10 mg PO DAILY Combivent Respimat 20-100 mcg/actuation mist 1 puff INHALATION Q6H pantoprazole 40 mg tablet,delayed release (DR/EC) 40 mg PO BID 30 Days Qty: 60 0RF tramadol 50 mg tablet 50 mg PO Q4H PRN PRN (Reason: Pain) 3 Days Qty: 12 0RF sulfamethoxazole-trimethoprim [Bactrim DS] 800-160 mg tablet 1 tab PO BID Qty: 14 0RF Primary Care Provider: Tabatha Diaz Referrals: Tabatha Diaz MD [Primary Care Provider] - 3-5 Days Activity Restrictions/Additional Instructions: Bactrim 1 pill twice a day for 7 days. Call and follow-up with your doctor if the neck pain is not improving. You may need more imaging of your neck. Disposition Disposition: Home, Self Care
--- NOTE | 2023-04-20 13:22 | RAD_ITS ---
INDICATION: atraumatic pain EXAMINATION/TECHNIQUE: X-RAY - XR Spine Cervical 2 or 3 Views COMPARISON: No prior examinations are available for comparison. FINDINGS: VERTEBRAE: Preserved vertebral body height. C7 vertebra is suboptimally seen on the lateral view. No definite acute compression fracture deformity. No spondylolisthesis. Increased kyphosis of the thoracocervical junction. DISCS: Narrowing of C5-C6 and C6-C7 disc spaces. NECK SOFT TISSUES: No prevertebral soft tissue widening. LUNG APICES: No evidence of pneumothorax. Sternal wires are seen. RAD/Cerv Spine 2 or 3 Views IMPRESSION: Degenerative changes in the lower cervical spine.. Electronically Signed: Donald Lee MD at 13:48 EDT ,
[2023-04-20 14:16] LABS: Mucous, Urine 0 SEEN /hpf (<or=2+)
[2023-04-20 14:20] LABS: Color, Urine Yellow (Yellow); Glucose, Dipstick Normal (Normal); Ketone-Dipstick Negative (Negative); Leukocyte Esterase-Dipstick 500 /ul (Negative); Nitrite-Dipstick Negative (Negative); Occult Blood-Urine 50 /ul (Negative); Protein-Dipstick 30 mg/dl (Negative); Urine Bilirubin Dipstick Negative (Negative); Urine Clarity Sl. Cloudy (Clear); Urine Urobilinogen Normal (Normal); Urine pH 6.5 (5.0 - 8.0)
[2023-04-20] MEDS: Ondansetron ODT 4 MG Tablet PO (14:20)
[2023-04-20] MEDS: morphine 10 MG/ML Syringe 8 MG SC (14:20)
--- NOTE | 2023-04-20 14:32 | NURSING ---
Patient up and ambulatory to bathroom with no assist. Using cane to walk, gait steady.
[2023-04-20 14:36] LABS: Bacteria 1+ /hpf (None Seen); Red Blood Cells-Urine 5-10 SEEN /hpf (0-5); Squamous Epithelial Cells - UA 0-5 SEEN /hpf (5-10); White Blood Cells >100 SEEN /hpf (0-5)
[2023-04-20] MEDS: Smz/Tmp Ds Tablet 1 TABLET PO (15:28)
== END 2023-04-20 15:29 | disposition home or self-care (01) ==
PROVIDERS: Emergency Provider Emergency Medicine; PCP Internal Medicine; Visit Provider Emergency Medicine
DX: M47.812 Spondylosis without myelopathy or radiculopathy, cervical region (principal); J44.9 Chronic obstructive pulmonary disease, unspecified; E11.22 Type 2 diabetes mellitus with diabetic chronic kidney disease; N39.0 Urinary tract infection, site not specified; I25.10 Atherosclerotic heart disease of native coronary artery without angina pectoris; E78.5 Hyperlipidemia, unspecified; I12.9 Hypertensive chronic kidney disease with stage 1 through stage 4 chronic kidney disease, or unspecified chronic kidney disease; N18.9 Chronic kidney disease, unspecified; Z79.82 Long term (current) use of aspirin; Z95.5 Presence of coronary angioplasty implant and graft
CPT/HCPCS: 72040; 81001; 87086; 87088; 96372; 99283

== ENCOUNTER 2023-06-03 22:47 | Emergency (ER) | payer MEDICARE, SELFPAY ==
[2021-03-16 09:07] VITALS: BMI 39.2
[2023-06-03 22:49] VITALS: BP 179/72; PULSE 74; RESP 15; TEMP 36.6; O2SAT 100
--- NOTE | 2023-06-04 01:00 | EX.ED.DYSGE1 ---
HPI History of Present Illness Chief Complaint: Chest Pain Informant: patient and family Narrative Narrative: Patient is a 78-year-old female with past medical history of hypertension chronic kidney disease hyperlipidemia and coronary artery disease. She states she was recently diagnosed with a UTI placed on antibiotics as well as prednisone. She states today she has had 3 different bouts where she felt her blood pressure has spiked and with this felt chest discomfort. Other than the antibiotic and prednisone she denies any new medications or exposures. She states she has a follow-up with her mirror machine feeder in approximately 1 day but because of her past medical history she was concerned and therefore comes in for evaluation [facility] Medical History Arm paresthesia, right Asthma Atherosclerosis of coronary artery bypass graft without angina pectoris Atherosclerotic heart disease of [place] coronary artery without angina pectoris Cardiomyopathy CKD (chronic kidney disease) COPD (chronic obstructive pulmonary disease) COVID-19 (~04/2022) Essential hypertension GERD (gastroesophageal reflux disease) History of non-ST elevation myocardial infarction (NSTEMI) (01/26/21) Hyperlipidemia Hypothyroidism Insect bite Morbid obesity NSTEMI (non-ST elevated myocardial infarction) Obesity 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 Type 2 diabetes mellitus without complication Vertigo Home Medications montelukast 10 mg tablet 10 mg PO DAILY ASTHMA 12/17/13 [History Last Taken 09/19/22] aspirin 81 mg tablet,delayed release 81 mg PO QDAY HEART HEALTH 11/19/17 [History Last Taken 09/20/22] cetirizine 10 mg tablet (Zyrtec) 10 mg PO QDAY allergies 02/15/20 [History Last Taken 09/19/22] allopurinol 100 mg tablet 100 mg PO DAILY GOUT 11/22/21 [History Last Taken 09/19/22] glipizide 10 mg tablet 5 mg PO BID DM 05/24/22 [History Last Taken 09/19/22] spironolactone 25 mg tablet 25 mg PO DAILY HEART 08/28/22 [History Last Taken 09/20/22] ipratropium 20 mcg-albuterol 100 mcg/actuation mist for inhalation (Combivent Respimat) 1 puff inhalation Q6H BREATHING 09/20/22 [History Last Taken 09/20/22] ferrous sulfate 325 mg (65 mg iron) tablet 325 mg PO BID SUPPLEMENT 10/04/22 [History Last Taken Unknown] furosemide 40 mg tablet (Lasix) 40 mg PO DAILY 12/25/22 [History Last Taken Unknown] levothyroxine 100 mcg tablet 88 mcg PO DAILY THYROID 12/25/22 [History Last Taken Unknown] sulfamethoxazole 800 mg-trimethoprim 160 mg tablet (Bactrim DS) 1 tab PO BID #14 tabs 02/05/23 [Rx Last Taken Unknown] sulfamethoxazole 800 mg-trimethoprim 160 mg tablet (Bactrim DS) 1 tab PO BID 7 days #14 tabs 04/20/23 [Rx Last Taken Unknown] gabapentin 300 mg capsule 300 mg PO DAILY 06/03/23 [History Last Taken Unknown] prednisone 20 mg tablet 20 mg PO DAILY 06/03/23 [History Last Taken Unknown] Allergy/AdvReac Type Severity Reaction Status Date / Time Anesthetics - Amide Type - Allergy Other Verified 06/03/23 22:53 Select A [Anesthetics - Amide Type] acetaminophen [From Tylenol] AdvReac Severe Other Verified 06/03/23 22:53 pravastatin AdvReac Intermediate Myalgias Verified 06/03/23 22:53 after 15 years of taking cinnamon AdvReac Unknown Unknown Verified 06/03/23 22:53 Penicillins AdvReac Unknown Unknown Verified 06/03/23 22:53 Family History Mother , age 86, advanced age No problems noted. Father Prostate cancer Surgical History H/O coronary artery bypass surgery (10/11/07) History of cholecystectomy History of coronary artery stent placement (01/26/21) History of hysterectomy Hx of appendectomy Hx of bilateral cataract extraction Social History Smoking Status: Never smoker alcohol intake: never substance use type: does not use caffeine: Yes Type: carbonated beverages what type of physical activity do you participate in: none seatbelt use: always do you feel safe at home: Yes ROS ROS ED Constitutional Constitutional ED: Denies chills or fever(s) ENT ENT ED: Denies sore throat Cardiovascular Cardiovascular: Reports chest pain and palpitations; Denies racing heartbeat Respiratory/Chest Respiratory/Chest: Reports dyspnea; Denies cough Gastrointestinal Gastrointestinal: Denies abdominal pain, diarrhea, nausea or vomiting Genitourinary Genitourinary ED: Denies dysuria Musculoskeletal Musculoskeletal: Reports myalgias Integumentary Denies Abrasions or rash Neurologic Neurologic: Denies headache(s) or paresthesias Hematologic/Lymphatic Hematologic/Lymphatic: Denies easy bleeding or easy bruising EXAM Physical Exam Const Vital Signs: 06/03/23 22:49 06/03/23 23:29 06/03/23 23:29 Temperature 97.9 F Temperature Source Temporal Pulse Rate 74 Respiratory Rate 15 Respiratory Effort Short of Breath Respiratory Depth Normal Respiratory Pattern Normal Blood Pressure 179/72 H Blood Pressure Mean 107 Pulse Ox 100 Oxygen Delivery Method Room Air Room Air 06/04/23 01:08 Temperature Temperature Source Pulse Rate 69 Respiratory Rate 14 Respiratory Effort Respiratory Depth Respiratory Pattern Blood Pressure 159/68 H Blood Pressure Mean Pulse Ox 98 Oxygen Delivery Method Positive well nourished, well developed and obese General Appearance ED: well developed Nutritional Appearance: obese HEENT Reports dry mucous membranes HEENT Narrative: No tongue or lip swelling no oral lesions no airway edema or compromise Mouth ED: Yes dry mucous membranes Mouth: dry mucous membranes Eyes PERRL and EOMs intact bilaterally General Eye ED: Negative for pale conjunctiva or scleral icterus Neck supple and no JVD Neck Narrative: No nuchal rigidity or meningeal signs present Chest Wall palpation of chest normal Chest Narrative: No bony deformity or crepitance Resp normal respiratory effort Resp Narrative: Breath sounds are diminished throughout with faint expiratory wheeze in the bilateral bases but no signs of respiratory distress Cardio regular rate and regular rhythm Rate: other Other Details: Heart is regular rate and rhythm with occasional ectopic beat noted Radial and carotid pulses are equal and symmetric GI normal to inspection, nondistended, normoactive bowel sounds, non-tender and non-distended GI Narrative: No voluntary guarding or rigidity. No pulsatile mass or fluid wave Auscultation: normoactive bowel sounds Palpation: soft Extremity Extremity Narrative: Trace to +1 pitting edema to the bilateral lower extremities that is chronic per patient Neuro oriented x3 and CN's II-XII intact bilaterally Sensorium / Orientation: alert Psych Psych Narrative: Patient has a flat affect Skin no rashes or lesions noted MDM MDM MDM Narrative Medical decision making narrative: Patient presented to the ER mildly hypertensive otherwise with stable vitals. She has a history of hypertension and the fact she is on prednisone could cause a higher elevation to it. As she reported intermittent chest spasm and shortness of breath there is concern for acute coronary syndrome versus non-STEMI versus pneumonia versus pneumothorax or acute on chronic kidney injury. An EKG was obtained which showed nonspecific ST segment depression in multiple leads but is most likely chronic based on her history of known CAD. Without any type of medication her pressure was improving. I discussed with patient obtaining blood work and a chest x-ray to further assess her symptoms. She states that she has been in the ER for approximate 2 hours already and does not want to stay any longer especially as her blood pressure is improving without medication and her symptoms have resolved. Patient understands that as she is a vasculopath with known CAD that she still could have cardiac event despite no obvious signs of [place] on the EKG. patient states she understands this but is feeling better at this time and has an appoint with her mirror machine feeder in approximately 24 hours and therefore would like to be discharged. Patient is awake alert and competent to make this decision she understands the risks involved and therefore we discharged at this time History & Record Review Discussion w/independent historian: Patient and Family Discharge Plan Triage Chief Complaint: Chest Pain Other Complaint: Shortness of Breath ED Provider: Jatin De La Rosa Dx/Rx/DC Orders Clinical Impression: Essential hypertension, History of coronary artery stent placement, Hyperlipidemia Instructions: ED Hypertension, Established Prescriptions: No Action aspirin 81 mg tablet,delayed release (DR/EC) 81 mg PO QDAY cetirizine [Zyrtec] 10 mg tablet 10 mg PO QDAY glipizide 10 mg tablet 5 mg PO BID allopurinol 100 mg tablet 100 mg PO DAILY Patient Comments: TAKE 1 TABLET BY MOUTH ONCE DAILY levothyroxine 100 mcg tablet 88 mcg PO DAILY Patient Comments: TAKE 1 TABLET BY MOUTH ONCE DAILY furosemide [Lasix] 40 mg tablet 40 mg PO DAILY Rx Instructions: 1/4 pill twice a week spironolactone 25 mg tablet 25 mg PO DAILY ferrous sulfate 325 mg (65 mg iron) tablet 325 mg PO BID montelukast 10 MG tablet 10 mg PO DAILY Combivent Respimat 20-100 mcg/actuation mist 1 puff INHALATION Q6H sulfamethoxazole-trimethoprim [Bactrim DS] 800-160 mg tablet 1 tab PO BID Qty: 14 0RF prednisone 20 mg tablet 20 mg PO DAILY Patient Comments: TAKE 1 TABLET BY MOUTH ONCE DAILY gabapentin 300 mg capsule 300 mg PO DAILY Patient Comments: TAKE 1 CAPSULE BY MOUTH AT BEDTIME sulfamethoxazole-trimethoprim [Bactrim DS] 800-160 mg tablet 1 tab PO BID 7 Days Qty: 14 0RF Primary Care Provider: Tabatha Diaz Referrals: Tabatha Diaz MD [Primary Care Provider] - Activity Restrictions/Additional Instructions: Your EKG showed nonspecific changes without obvious heart attack findings. Continue your medications as directed and follow-up with your mirror machine feeder on as you have scheduled. If your symptoms return or you have any further concerns please return to the hospital for repeat evaluation Disposition Disposition: Home, Self Care Discharge Date/Time: 06/04/23 01:12
[2023-06-04 01:08] VITALS: BP 159/68; PULSE 69; RESP 14; O2SAT 98
== END 2023-06-04 01:12 | disposition home or self-care (01) ==
PROVIDERS: Emergency Provider Emergency Medicine; PCP Internal Medicine; Visit Provider Emergency Medicine
DX: I12.9 Hypertensive chronic kidney disease with stage 1 through stage 4 chronic kidney disease, or unspecified chronic kidney disease (principal); J44.9 Chronic obstructive pulmonary disease, unspecified; E11.22 Type 2 diabetes mellitus with diabetic chronic kidney disease; I25.10 Atherosclerotic heart disease of native coronary artery without angina pectoris; Z95.5 Presence of coronary angioplasty implant and graft; N18.9 Chronic kidney disease, unspecified; E78.5 Hyperlipidemia, unspecified; E66.9 Obesity, unspecified
CPT/HCPCS: 93005; 99283; A4216

== ENCOUNTER 2023-11-04 09:38 | Inpatient (IN) | payer MEDICARE, SELFPAY ==
[2021-03-16 09:07] VITALS: BMI 39.2
[2023-11-04] VITALS (22 sets, daily range): BP systolic 115–211; BP diastolic 66–126; PULSE 85–123; RESP 16–25; TEMP 36.1–36.7; O2SAT 94–100; BMI 36.3; BMI 33.8
--- NOTE | 2023-11-04 09:52 | EKG12_ITS ---
Test Reason : SOB Blood Pressure : / mmHG Vent. Rate : 122 BPM Atrial Rate : 122 BPM P-R Int : 100 ms QRS Dur : 106 ms QT Int : 312 ms P-R-T Axes : 001 060 231 degrees QTc Int : 444 ms Sinus tachycardia with short OK Incomplete left bundle branch block Marked ST abnormality, possible inferior subendocardial injury Abnormal ECG Confirmed by HAIEL DUQUE, NITIN ([id number]), web content editor SUKHDEEP CONTRERAS ([id number]) on 11/10/2023 2:00:19 PM Referred By: KO/SANTOSH Confirmed By:ELIAS BE MD
--- NOTE | 2023-11-04 09:57 | ED.VIS.DYS ---
HPI History of Present Illness Chief Complaint: Shortness of Breath Informant: patient and family Onset/Context/Timing Onset: Today Context: gradual Timing: Continuous Quality: Positive for Dyspnea on exertion Worsened by: Exertion Relieved by: Rest Associated Symptoms cough; Negative for rhinorrhea, post nasal drip, ear pain, fever, sore throat, chills, sweats, clear sputum, white sputum, yellow sputum or green sputum Chest Pain: Positive for Pressure Narrative Narrative: Patient presents with shortness of breath and chest pain that began today. Patient states her breathing is worse with any exertion. Patient states it is gradually gotten worse throughout the day. Patient states that she has a chronic cough but denies any sputum production. Patient admits to some pressure in her chest. Patient denies any fevers or chills. Patient denies any sore throat or rhinorrhea. Patient denies any increase in leg swelling. PE Risk Factors: Negative for Cancer, OCP + Smoking + > 35, Prior DVT or PE, Recent immobilization, Recent surgery or Recent travel [facility] Medical History Arm paresthesia, right Asthma Atherosclerosis of coronary artery bypass graft without angina pectoris Atherosclerotic heart disease of [place] coronary artery without angina pectoris Cardiomyopathy CHF (congestive heart failure) CKD (chronic kidney disease) COPD (chronic obstructive pulmonary disease) COVID-19 (~04/2022) Essential hypertension GERD (gastroesophageal reflux disease) History of non-ST elevation myocardial infarction (NSTEMI) (01/26/21) Hyperlipidemia Hypothyroidism Insect bite Morbid obesity NSTEMI (non-ST elevated myocardial infarction) Obesity 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 Type 2 diabetes mellitus without complication Vertigo Home Medications montelukast 10 mg tablet 10 mg PO DAILY ASTHMA 12/17/13 [History Last Taken 11/03/23] aspirin 81 mg tablet,delayed release 81 mg PO QDAY HEART HEALTH 11/19/17 [History Last Taken 11/03/23] cetirizine 10 mg tablet (Zyrtec) 10 mg PO QDAY allergies 02/15/20 [History Last Taken 11/03/23] allopurinol 100 mg tablet 100 mg PO DAILY GOUT 11/22/21 [History Last Taken 11/03/23] spironolactone 25 mg tablet 25 mg PO DAILY HEART 08/28/22 [History Last Taken 11/03/23] ipratropium 20 mcg-albuterol 100 mcg/actuation mist for inhalation (Combivent Respimat) 1 puff inhalation Q6H BREATHING 09/20/22 [History Last Taken 11/03/23] ferrous sulfate 325 mg (65 mg iron) tablet 325 mg PO BID SUPPLEMENT 10/04/22 [History Last Taken Unknown] furosemide 40 mg tablet (Lasix) 40 mg PO DAILY 12/25/22 [History Last Taken Unknown] cholecalciferol (vitamin D3) 25 mcg (1,000 unit) tablet 25 mcg PO SUTUTHSA 06/05/23 [History Last Taken 11/02/23] ezetimibe 10 mg tablet (Zetia) 10 mg PO DAILY #90 tabs 06/05/23 [Rx Last Taken Unknown] glipizide 10 mg tablet 2.5 mg PO DAILY DM 06/05/23 [History Last Taken Unknown] levothyroxine 100 mcg tablet 100 mcg PO DAILY THYROID 06/05/23 [History Last Taken 11/03/23] metoprolol tartrate 50 mg tablet 50 mg PO DAILY 06/05/23 [History Last Taken 11/03/23] prednisone 20 mg tablet 10 mg PO DAILY PRN pain 06/05/23 [History Last Taken Unknown] omeprazole 20 mg capsule,delayed release 20 mg PO DAILY 11/04/23 [History Last Taken 11/03/23] vitamins A,C,V-edqc-jukawe 2,148 mcg-113 mg-45 mg-17.4 mg tablet (Eye Multivitamin) 1 tab PO BID 11/04/23 [History Last Taken 11/03/23] Allergy/AdvReac Type Severity Reaction Status Date / Time Anesthetics - Amide Type - Allergy Other Verified 11/04/23 09:40 Select A [Anesthetics - Amide Type] acetaminophen [From Tylenol] AdvReac Severe Other Verified 11/04/23 09:40 pravastatin AdvReac Intermediate Myalgias Verified 11/04/23 09:40 after 15 years of taking cinnamon AdvReac Unknown Unknown Verified 11/04/23 09:40 Penicillins AdvReac Unknown Unknown Verified 11/04/23 09:40 Family History Mother , age 86, advanced age No problems noted. Father Prostate cancer Surgical History H/O coronary artery bypass surgery (10/11/07) History of cholecystectomy History of coronary artery stent placement (01/26/21) History of hysterectomy Hx of appendectomy Hx of bilateral cataract extraction Social History (Updated 11/04/23 @ 13:06 by Saba Avitia) household members: family housing: house Smoking Status: Never smoker alcohol intake: never substance use type: does not use caffeine: Yes Type: carbonated beverages what type of physical activity do you participate in: none seatbelt use: always do you feel safe at home: Yes ROS ROS ED Constitutional Constitutional ED: Denies chills or fever(s) Eyes Eyes: Denies blurry vision or change in vision ENT ENT ED: Denies rhinorrhea or sore throat Cardiovascular Cardiovascular: Reports chest pain; Denies palpitations Respiratory/Chest Respiratory/Chest: Reports cough and dyspnea Gastrointestinal Gastrointestinal: Denies nausea or vomiting Genitourinary Genitourinary ED: Denies dysuria or hematuria Musculoskeletal Musculoskeletal: Reports back pain; Denies neck pain Integumentary Denies abscess or rash Neurologic Neurologic: Denies headache(s) or weakness Allergic/Immunologic Allergic/Immunologic ED: Denies mouth swelling or urticaria EXAM Physical Exam Const Vital Signs: 11/04/23 09:39 11/04/23 10:01 11/04/23 10:03 Temperature 96.9 F L Temperature Source Temporal Pulse Rate 119 H 123 H Respiratory Rate 22 H 22 H Respiratory Effort Short of Breath Respiratory Depth Shallow Respiratory Pattern Tachypnea Blood Pressure 162/87 H 180/100 H Blood Pressure Mean 112 126 Pulse Ox 94 97 Oxygen Delivery Method Room Air Nasal Cannula Oxygen Flow Rate (L/min) 3 11/04/23 10:35 11/04/23 11:26 11/04/23 11:33 Temperature Temperature Source Pulse Rate 118 H Respiratory Rate 20 H Respiratory Effort Respiratory Depth Respiratory Pattern Blood Pressure 211/103 H 157/126 H Blood Pressure Mean 139 136 Pulse Ox 100 100 Oxygen Delivery Method Nasal Cannula Nasal Cannula Oxygen Flow Rate (L/min) 3 3 Positive well nourished and well developed General Appearance ED: well developed and NAD HEENT Reports moist mucous membranes Neck supple and no JVD Resp Auscultation: rales bilateral lower Cardio regular rhythm Rate: tachycardic GI non-tender and non-distended Palpation: soft Extremity General Extremety ED: Yes edema; Negative for tenderness General Extremity: edema Neuro oriented x3, CN's II-XII intact bilaterally and no sensory deficits noted [place] Coma Scale: document GCS findings Spontaneous Obeys Commands Oriented 15 Sensorium / Orientation: alert Motor Exam: strength 5/5 throughout Psych mental status grossly normal MDM MDM MDM Narrative Medical decision making narrative: Differential diagnosis includes cardiac dysrhythmia, cardiac ischemia, congestive heart failure, pneumonia, pneumothorax, viral illness, and anxiety. EKG will be obtained to assess for cardiac dysrhythmia and cardiac ischemia. Chest x-ray will be obtained to assess for pneumonia and congestive heart failure. CBC will be obtained to assess for leukocytosis and anemia. Basic metabolic profile will be obtained to assess for electrolyte abnormality and renal function. High-sensitivity troponin will be obtained to assess for cardiac ischemia. 2-hour repeat high-sensitivity troponin will be obtained to assess for ongoing cardiac ischemia. BNP will be obtained to assess for congestive heart failure. Lab Data Attestation: I reviewed the patient's lab results. Lab results narrative: CBC was reviewed. There is a mild leukocytosis of 18.1. Hemoglobin was 10.8 and hematocrit is 34.2. Platelets were normal. Basic metabolic profile was reviewed. BUN was 27 and creatinine was 1.73. These are consistent with prior results. High-sensitivity troponin was reviewed and was elevated at 1610. BNP was reviewed and was elevated at 1120. Labs: Laboratory Results - last 24 hr 11/04/23 10:03 WBC 18.1 H RBC 3.64 L Hgb 10.7 L Hct 34.2 L MCV 94.0 MCH 29.4 MCHC 31.3 L RDW Std Deviation 47.9 H RDW Coeff of Kamar 14.0 Plt Count 416 MPV 10.7 Immature Gran % (Auto) 0.500 Neut % (Auto) 91.5 H Lymph % (Auto) 5.3 L [place] % (Auto) 2.2 Eos % (Auto) 0.2 Baso % (Auto) 0.3 Absolute Neuts (auto) 16.6 H Absolute Lymphs (auto) 0.96 Nucleated RBC % 0 PT 13.8 INR 1.1 APTT 27.4 Sodium 136 Potassium 4.8 Chloride 106 Carbon Dioxide 23.0 Anion Gap 7 BUN 27 H Creatinine 1.73 H Est GFR (MDRD) Af Amer 37 L Est GFR (MDRD) Non-Af 30 L BUN/Creatinine Ratio 15.6 Glucose 242 H Calcium 8.8 Troponin I High Sens 1610 H* B-Natriuretic Peptide 1120.0 H Radiography Chest X-Ray - ED: 1 View, Read by ED Physician, Read by Radiologist, Chronic Changes and CHF Diagnostic Testing: Clinical Impression(s) from Imaging Studies Chest X-Ray 11/04/23 11:05 IMPRESSION: Prior CABG. Findings suggestive of CHF with bibasilar scarring and/or atelectasis and small bilateral effusions. Electronically Signed: Brandyn Cheng MD at 11:35 EST , Portable chest x-ray was obtained. There is 1 view. On my independent interpretation, there is evidence of congestive heart failure. There are chronic changes with bibasilar scarring and atelectasis. There are small bilateral effusions. Bony thorax is normal. Radiologist also interpreted the x-ray and agrees. EKG Initial EKG: Attestation: I personally reviewed and interpreted this EKG as follows: Interpretation: Sinus Tachycardia (122) and Non-Specific ST Changes Comments: EKG was obtained. On my independent interpretation, it shows a sinus tachycardia with a rate of 122. OR interval was normal at 100 ms. QRS interval was normal at 106 ms. QTc interval was normal at 444 ms. [place] was normal. There are nonspecific ST-T wave changes noted. Prior EKG tracings: available for review Prior: Changed (Compared to previous EKG dated 06/04/2023, the nonspecific ST-T wave changes in the lateral leads are more pronounced.) Follow-up EKG: Attestation: I personally reviewed and interpreted this EKG as follows: Interpretation: Sinus Tachycardia (119) and Non-Specific ST Changes Comments: Repeat EKG was obtained. On my independent interpretation, it shows sinus tachycardia with a rate of 119. OR interval was normal at 136 ms. QRS interval was normal at 102 ms. QTc interval was normal at 455 ms. [place] was normal. There are nonspecific ST-T wave changes noted in the lateral leads which are similar to previous EKG done earlier today. There is no evidence of ST elevation. Prior EKG tracings: available for review Prior: Unchanged Management Discussion w/another healthcare provider: Hospitalist and Bench Repair Technician Treatment and Re-Evaluation :: Patient had aspirin prior to arrival. Because of the elevated troponin and elevated BNP, patient was started on nitroglycerin drip. Patient was given a dose of Lasix. Patient was given a dose of morphine. Patient was also started on heparin drip. Case was discussed with Dr. Graham from cardiology. He had no further recommendations. He will follow along with the patient in the hospital. Case was discussed with the hospitalist. He will admit the patient to his service. Patient and family understood and were agreeable with the plan. All questions were answered. Critical Care Time Critical Care Time: Yes Critical care time (excluding procedures): 30-74 minutes (34), Including time spent:, Discussing w/Patient &/or Family/Racecar Driver, Discussing w/Consultants, Arranging Admission or Transfer and Performing Direct Patient Care at Bedside Discharge Plan Dx/Rx/DC Orders Clinical Impression: Congestive heart failure, NSTEMI (non-ST elevated myocardial infarction), Cardiomyopathy Disposition Disposition: Acute Care Hospital [facility] Discharge Date/Time: 11/04/23 12:38
--- NOTE | 2023-11-04 10:35 | EKG12_ITS ---
Test Reason : REPEAT/CHANGE Blood Pressure : / mmHG Vent. Rate : 119 BPM Atrial Rate : 119 BPM P-R Int : 136 ms QRS Dur : 102 ms QT Int : 324 ms P-R-T Axes : 043 054 179 degrees QTc Int : 455 ms Sinus tachycardia Marked ST abnormality, possible lateral subendocardial injury Abnormal ECG Confirmed by HAILE DUQUE, NITIN ([id number]), deputy editor in chief NIRAV DICKSON ([id number]) on 11/10/2023 10:07:26 AM Referred By: Confirmed By:ELIAS BE MD
[2023-11-04 10:54] LABS: Absolute Lymphocyte Count 0.96 X10^3/uL (0.83-4.51); Absolute Neutrophil Count 16.6 X10^3/uL (2.0-7.7); Basophil# 0.05 X10^3/uL; Basophil% 0.3 % (0-1); Eosinophil# 0.04 X10^3/uL; Eosinophils% 0.2 % (0-5); Hematocrit 34.2 % (37-47); Hemoglobin 10.7 g/dL (12.0-15.0); Lymphocyte # 0.96 X10^3/ul (0.83-4.51); Lymphocyte % 5.3 % (19-41); Mean Corp Hgb Conc 31.3 g/dL (32-36); Mean Corpuscular Hgb 29.4 pg (27.0-32.0); Mean Platelet Vol. 10.7 fl (6.2-12.0); Monocyte# 0.39 X10^3/uL; Monocyte% 2.2 % (0-10); NRBC Flagged by Analyzer 0 % (0-5); Neutrophil # 16.56 X10^3/uL (2.7-7.7); Neutrophil % 91.5 % (47-70); Platelet Count 416 K/mm3 (150-450); RBC Distribution Width SD 47.9 fl (35.1-43.9); Red Blood Count 3.64 M/mm3 (4.2-5.4); White Blood Count 18.1 K/mm3 (4.4-11.0)
--- NOTE | 2023-11-04 11:05 | RAD_ITS ---
STUDY: X-RAY CHEST REASON FOR EXAM: Female, 78 years old. Chest pain and shortness of breath. TECHNIQUE: Single AP portable view of the chest. COMPARISON: Comparison is made with prior study dated February 08, 2023. FINDINGS: EKG electrodes are seen. Findings suggestive of a vascular congestion and CHF. Mild increased markings at the lung bases suggestive of atelectasis and/or mild scarring. There is blunting of both costophrenic angles slightly worse on the right side. Sternal cerclage wires and vascular clips are present from a prior sternotomy and coronary artery bypass graft procedure (CABG). Normal mediastinum and teri. Normal visualized pulmonary arteries. There is atherosclerotic calcification of the aortic arch with tortuosity. There are diffuse degenerative changes of the visualized thoracic spine. Normal visualized ribs, clavicles, and shoulders. There is no demonstrated abnormality of the visualized soft tissue structures of the upper abdomen. RAD/Chest 1 View (Portable) IMPRESSION: Prior CABG. Findings suggestive of CHF with bibasilar scarring and/or atelectasis and small bilateral effusions. Electronically Signed: Brandyn Cheng MD at 11:35 EST ,
[2023-11-04 11:17] LABS: Anion Gap 7 (5-15); BUN 27 mg/dL (7-18); BUN/Creat Ratio 15.6 RATIO (10-20); Calcium,Total 8.8 mg/dL (8.5-10.1); Chloride 106 mmol/L (98-107); Creatinine, Serum 1.73 mg/dL (0.55-1.02); EST Glomerular Filtration Rate 30 mL/min (>60); Est Glom Filt Rate - Afr Amer 37 mL/min (>60); Glucose 242 mg/dL (74-106); Potassium 4.8 mmol/L (3.5-5.1); Sodium Level 136 mmol/L (136-145); Troponin-I HS (w/2H Reflex) 1610 pg/mL (3.0-54.0)
[2023-11-04] MEDS: Morphine 4 MG/ML Syringe IV (11:31)
[2023-11-04] MEDS: Furosemide 40 MG/4 ML Vial IV ×2 (11:31→17:44)
[2023-11-04] MEDS: Nitroglycerin Infusion 250 ML 3 MG IV (11:33)
[2023-11-04] MEDS: Heparin Injection (Vial) 5,000 UNIT/ML VIAL 6000 UNIT IV (11:49)
[2023-11-04] MEDS: HEPARIN/D5w 25,000 UNITS 25,000 UNITS/250 ML IV.SOLN. 12 UNITS CONT INF (11:50)
--- NOTE | 2023-11-04 12:08 | ECHOCS_ITS ---
Reason For Study: CHF Procedure This was a 2D Doppler, Color Flow transthoracic echocardiogram. The study was technically difficult. Contrast injection was performed. Exam performed portable in patient room. Left Ventricle Normal LV size. The estimated ejection fraction is 40 %. Unable to assess diastolic dysfunction. There is moderate global hypokinesis of the left ventricle. Right Ventricle Normal RV size. Normal systolic function. Atria The left atrium is mildly enlarged. Normal right atrium. No doppler evidence for ASD. Mitral Valve There is moderate mitral annular calcification. There is no mitral valve stenosis. Mild-Moderate (1- 2+) mitral valve insufficiency. Tricuspid Valve There is no tricuspid stenosis. Mild tricuspid valve insufficiency. Pulmonary artery systolic pressure is 40 mmHg. Aortic Valve Trisinus/trileaflet aortic valve. There is no aortic stenosis. No aortic valve insufficiency. Pulmonic Valve There is no pulmonic valvular stenosis. No pulmonic valve insufficiency. Great Vessels Normal aortic root. Pericardium/Pleural No pericardial effusion. Medication Diluted definity 2.5ml given slow IV push to enhance endocardial definition. MMode/2D Measurements & Calculations LVIDd: 6.0 cm IVSd: 0.88 cm Ao root diam: 3.7 cm LVIDs: 5.1 cm LVPWd: 1.1 cm LA dimension: 5.1 cm FS: 14.0 % LAV(MOD-bp): 102.3 ml LVAd ap4: 42.4 cm2 SV(MOD-sp4): 66.7 ml LAV(MOD-bp) Indexed: 55.1 ml/m2 LVLd ap4: 8.0 cm LAV(MOD-sp2): 106.4 ml EDV(MOD-sp4): 182.7 ml LAV(MOD-sp4): 91.9 ml EDV(sp4-el): 190.2 ml LVAs ap4: 32.4 cm2 LVLs ap4: 7.3 cm ESV(MOD-sp4): 116.0 ml ESV(sp4-el): 122.5 ml EF(MOD-sp4): 36.5 % EF(sp4-el): 35.6 % SV(sp4-el): 67.7 ml LA A4 area: 25.7 cm2 Time Measurements MV dec time: 0.11 sec Doppler Measurements & Calculations MV E max mik: 87.7 cm/sec Lat Peak E' Mik: 5.1 cm/sec Med Peak E' Mik: 5.1 cm/sec MV A max mik: 53.2 cm/sec E/E' lat: 17.2 E/E' med: 17.2 MV E/A: 1.6 MV V2 max: 146.9 cm/sec MV P1/2t max mik: 147.9 cm/sec Ao V2 max: 81.4 cm/sec MV max P.6 mmHg MV P1/2t: 51.3 msec Ao max P.7 mmHg MV V2 mean: 66.5 cm/sec Ao V2 mean: 57.7 cm/sec MV mean P.3 mmHg MV dec slope: 845.1 cm/sec2 Ao mean P.5 mmHg MV V2 VTI: 25.6 cm MVA(P1/2t): 4.3 cm2 Ao V2 VTI: 15.7 cm AV (velocity ratio): 0.97 LV V1 max: 77.1 cm/sec MR max mik: 605.6 cm/sec PA V2 max: 62.3 cm/sec LV V1 max P.4 mmHg MR max P.7 mmHg LV V1 mean P.2 mmHg MR mean mik: 456.3 cm/sec LV V1 mean: 49.3 cm/sec MR mean P.6 mmHg LV V1 VTI: 15.3 cm MR VTI: 181.7 cm TR max mik: 299.9 cm/sec TR max P.0 mmHg ECHO/Echo Complete W/ Contrast Interpretation Summary The estimated ejection fraction is 40 %. Unable to assess diastolic dysfunction. There is moderate global hypokinesis of the left ventricle. The left atrium is mildly enlarged. Mild-Moderate (1-2+) mitral valve insufficiency. Ordering Physician: Alfonso Quiroz Performed By: Alphonso Orozco RCS
--- NOTE | 2023-11-04 12:14 | NURSING ---
AVELINO LANGFORD, CHF
--- NOTE | 2023-11-04 12:19 | HP.PCM.HOS_ITS ---
[facility] - General General Date of Service: 11/04/23 Chief Complaint: shortness of breath. [facility] Narrative HILLARY WELLS, is a 78 F who presents with shortness of breath. Symptoms began around 0700. Denies any chest pain. Presented to the emergency room and was placed on oxygen. Had a workup Showed a white count of 18,000, troponin of 1610, BNP of 1120. Chest x-ray showed bilateral pleural effusions. Patient was started on heparin drip, nitroglycerin drip and received a dose of IV furosemide. Cardiology was consulted from the ER. Patient is currently feeling fine at this time. [facility] Medical History Arm paresthesia, right Asthma Atherosclerosis of coronary artery bypass graft without angina pectoris Atherosclerotic heart disease of [place] coronary artery without angina pectoris Cardiomyopathy CHF (congestive heart failure) CKD (chronic kidney disease) COPD (chronic obstructive pulmonary disease) COVID-19 (~04/2022) Essential hypertension GERD (gastroesophageal reflux disease) History of non-ST elevation myocardial infarction (NSTEMI) (01/26/21) Hyperlipidemia Hypothyroidism Insect bite Morbid obesity NSTEMI (non-ST elevated myocardial infarction) Obesity 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 Type 2 diabetes mellitus without complication Vertigo Home Medications montelukast 10 mg tablet 10 mg PO DAILY ASTHMA 12/17/13 [History Last Taken 11/03/23] aspirin 81 mg tablet,delayed release 81 mg PO QDAY HEART HEALTH 11/19/17 [History Last Taken 11/03/23] cetirizine 10 mg tablet (Zyrtec) 10 mg PO QDAY allergies 02/15/20 [History Last Taken 11/03/23] allopurinol 100 mg tablet 100 mg PO DAILY GOUT 11/22/21 [History Last Taken 11/03/23] spironolactone 25 mg tablet 25 mg PO DAILY HEART 08/28/22 [History Last Taken 11/03/23] ipratropium 20 mcg-albuterol 100 mcg/actuation mist for inhalation (Combivent Respimat) 1 puff inhalation Q6H BREATHING 09/20/22 [History Last Taken 11/03/23] ferrous sulfate 325 mg (65 mg iron) tablet 325 mg PO BID SUPPLEMENT 10/04/22 [History Last Taken Unknown] furosemide 40 mg tablet (Lasix) 40 mg PO DAILY 12/25/22 [History Last Taken Unknown] cholecalciferol (vitamin D3) 25 mcg (1,000 unit) tablet 25 mcg PO SUTUTHSA 06/05/23 [History Last Taken 11/02/23] ezetimibe 10 mg tablet (Zetia) 10 mg PO DAILY #90 tabs 06/05/23 [Rx Last Taken Unknown] glipizide 10 mg tablet 2.5 mg PO DAILY DM 06/05/23 [History Last Taken Unknown] levothyroxine 100 mcg tablet 100 mcg PO DAILY THYROID 06/05/23 [History Last Taken 11/03/23] metoprolol tartrate 50 mg tablet 50 mg PO DAILY 06/05/23 [History Last Taken 11/03/23] prednisone 20 mg tablet 10 mg PO DAILY PRN pain 06/05/23 [History Last Taken Unknown] omeprazole 20 mg capsule,delayed release 20 mg PO DAILY 11/04/23 [History Last Taken 11/03/23] vitamins A,C,C-hsps-zavnlu 2,148 mcg-113 mg-45 mg-17.4 mg tablet (Eye Multivitamin) 1 tab PO BID 11/04/23 [History Last Taken 11/03/23] Allergy/AdvReac Type Severity Reaction Status Date / Time Anesthetics - Amide Type - Allergy Other Verified 11/04/23 09:40 Select A [Anesthetics - Amide Type] acetaminophen [From Tylenol] AdvReac Severe Other Verified 11/04/23 09:40 pravastatin AdvReac Intermediate Myalgias Verified 11/04/23 09:40 after 15 years of taking cinnamon AdvReac Unknown Unknown Verified 11/04/23 09:40 Penicillins AdvReac Unknown Unknown Verified 11/04/23 09:40 Family History Mother , age 86, advanced age No problems noted. Father Prostate cancer Surgical History H/O coronary artery bypass surgery (10/11/07) History of cholecystectomy History of coronary artery stent placement (01/26/21) History of hysterectomy Hx of appendectomy Hx of bilateral cataract extraction Social History Smoking Status: Never smoker alcohol intake: never substance use type: does not use caffeine: Yes Type: carbonated beverages what type of physical activity do you participate in: none seatbelt use: always do you feel safe at home: Yes CANDICE HARVEY Narrative Does have chronic lower extremity edema, states that there is been no change with that. States that over the past year to year and a half she has lost over 50 pounds. This weight loss is due to dietary changes that she is not taking. All review of systems were negative except as mentioned above in the history of present illness and the other review of systems. Vital Signs Vital Signs Vital Signs: 11/04/23 09:39 11/04/23 10:01 11/04/23 10:03 Temperature 36.1 C L Temperature Source Temporal Pulse Rate 119 H 123 H Respiratory Rate 22 H 22 H Respiratory Effort Short of Breath Respiratory Depth Shallow Respiratory Pattern Tachypnea Blood Pressure 162/87 H 180/100 H Blood Pressure Mean 112 126 Pulse Ox 94 97 Oxygen Delivery Method Room Air Nasal Cannula Oxygen Flow Rate (L/min) 3 11/04/23 10:35 11/04/23 11:26 11/04/23 11:33 Temperature Temperature Source Pulse Rate 118 H Respiratory Rate 20 H Respiratory Effort Respiratory Depth Respiratory Pattern Blood Pressure 211/103 H 157/126 H Blood Pressure Mean 139 136 Pulse Ox 100 100 Oxygen Delivery Method Nasal Cannula Nasal Cannula Oxygen Flow Rate (L/min) 3 3 Weight Weight: 87.3 kg Body Mass Index (BMI) 36.3 Physical Exam Const alert and no apparent distress Constitutional Narrative: Sitting at the side of the bed. Flat affect. Nontoxic. Minimal eye contact. General Appearance: cooperative HEENT normocephalic and head/scalp atraumatic Eyes Eyes Narrative: Glasses. No icterus Neck Neck Narrative: Positive JVD Resp normal respiratory effort, no retractions, no use of accessory muscles and clear to auscultation bilaterally Cardio regular rate, regular rhythm, S1 normal heart sound and S2 normal heart sound GI normal to inspection, nondistended, normoactive bowel sounds, soft to palpation, non-tender and non-distended Extremity Extremity Narrative: Lower extremity edema, nonpitting. Skin Skin Narrative: Venous stasis dermatitis lower extremities. Neuro moves all extremities Sensorium / Orientation: awake and alert Psych Psych Narrative: Flat affect. Results Lab / Micro Data Attestation: I reviewed the patient's lab results. 11/04/23 10:03 11/04/23 10:03 Labs: Laboratory Results - last 24 hr 11/04/23 10:03: WBC 18.1 H, RBC 3.64 L, Hgb 10.7 L, Hct 34.2 L, MCV 94.0, MCH 29.4, MCHC 31.3 L, RDW Std Deviation 47.9 H, RDW Coeff of Kamar 14.0, Plt Count 416, MPV 10.7, Immature Gran % (Auto) 0.500, Neut % (Auto) 91.5 H, Lymph % (Au to) 5.3 L, Barren % (Auto) 2.2, Eos % (Auto) 0.2, Baso % (Auto) 0.3, Absolute N euts (auto) 16.6 H, Absolute Lymphs (auto) 0.96, Nucleated RBC % 0, Sodium 136, Potassium 4.8, Chloride 106, Carbon Dioxide 23.0, Anion Gap 7, BUN 27 H, C reatinine 1.73 H, Est GFR (MDRD) Af Amer 37 L, Est GFR (MDRD) Non-Af 30 L, BUN/Creatinine Ratio 15.6, Glucose 242 H, Calcium 8.8, Troponin I High Sens 1610 H*, B-Natriuretic Peptide 1120.0 H EKG Initial EKG: Attestation: I personally reviewed and interpreted this EKG as follows: Prior EKG tracings: available for review EKG Rhythm Intrepretation: Sinus Tachycardia Imaging Radiology Impression Chest X-Ray 11/04/23 11:05 IMPRESSION: Prior CABG. Findings suggestive of CHF with bibasilar scarring and/or atelectasis and small bilateral effusions. Electronically Signed: Brandyn Cheng MD at 11:35 EST , Assessment & Plan Assessment/Plan (1) NSTEMI (non-ST elevated myocardial infarction): PLAN: Plan NSTEMI * Unclear type at this time * Continue with heparin and nitroglycerin drip * Check echocardiogram * Cycle troponins * Cardiology consultation * Continue with aspirin Acute heart failure with reduced ejection fraction * EF of 45% from 2D echocardiogram from February 19, 2023. Complicated by pulmonary artery hypertension. Patient had pulmonary artery systolic pressure 54 mmHg at that time. * Continue with IV furosemide and nitroglycerin drip. * Echo ordered. Chronic conditions * Diabetes mellitus type 2: Sliding scale insulin check an A1c. * Hypertension: Stable. * History of gout: Currently stable. Continue with allopurinol. VTE prophylaxis: Not indicated as patient is anticoagulated. CODE STATUS: Addressed with the patient. Patient unsure. Told patient we will leave her on full CODE STATUS but if she does change her mind to let us know. Charges/Coding Visit Charges Inpatient E&M: 05464 Init Hosp L3
[2023-11-04 12:25] LABS: International Normalized Ratio 1.1; Prothrombin Time (Protime)PT. 13.8 SECONDS (11.7-14.9)
[2023-11-04 12:27] LABS: Partial Thromboplast Time 27.4 Seconds (24.1-36.2)
[2023-11-04 12:50] LABS: Reflex Troponin-HS? (from REC) Y
[2023-11-04 13:42] LABS: Mucous, Urine 0 SEEN /hpf (<or=2+); Red Blood Cells-Urine 0 SEEN /hpf (0-5)
[2023-11-04 13:49] LABS: Troponin-I HS 4561 pg/mL (3.0-54.0)
[2023-11-04 13:50] LABS: Color, Urine Straw (Yellow); Glucose, Dipstick Normal (Normal); Ketone-Dipstick Negative (Negative); Leukocyte Esterase-Dipstick 500 /ul (Negative); Nitrite-Dipstick Negative (Negative); Occult Blood-Urine 25 /ul (Negative); Protein-Dipstick 30 mg/dl (Negative); Urine Bilirubin Dipstick Negative (Negative); Urine Clarity Clear (Clear); Urine Urobilinogen Normal (Normal); Urine pH 6.5 (5.0 - 8.0)
[2023-11-04 14:01] LABS: White Blood Cells 10-25 SEEN /hpf (0-5)
[2023-11-04 14:02] LABS: Bacteria 2+ /hpf (None Seen); Squamous Epithelial Cells - UA 5-10 SEEN /hpf (5-10)
[2023-11-04] MEDS: Albuterol 2.5 MG/3 ML VIAL.NEB. INHALATION ×2 (14:41→23:40)
[2023-11-04 16:42] LABS: Troponin-I HS 11304 pg/mL (3.0-54.0)
[2023-11-04 16:49] LABS: Bedside Glucose 229 mg/dL (74-106)
--- NOTE | 2023-11-04 17:19 | PCM.CONS.C ---
Assessment & Plan Assessment/Plan (1) Congestive heart failure: QUALIFIERS: Heart failure type: systolic Heart failure chronicity: acute on chronic Qualified Code(s): I50.23 - Acute on chronic systolic (congestive) heart failure PLAN: Patient is currently in decompensated heart failure. I recommend Lasix IV 40 mg twice daily. We may need to increase it if there is no response. (2) NSTEMI (non-ST elevated myocardial infarction): PLAN: Continue current medications. Agree with IV heparin. When patient's heart failure is improved, if creatinine is stable we will consider coronary angiography. Agree with 2D echo. Patient is not on VIDA inhibitors due to CKD. HPI Consult Data Date of Consult: 11/04/23 HPI Narrative Reason for Consultation: Shortness of breath, chest pressure HPI Narrative: HILLARY WELLS, is a 78 F who presents with shortness of breath and chest pressure. Patient states that she has been having shortness of breath on and off for about 2 weeks but this morning it became particularly worse and she decided to come to the emergency room. She was in heart failure in the ER and was given Lasix and started on heparin drip because of elevated high-sensitivity troponin and also nitroglycerin drip. Patient's chest pressure has resolved. She continues to have shortness of breath which is improved as well. She however cannot lie down flat due to shortness of breath. Her creatinine is elevated but appears to be better than many of the recent values. She has a history of coronary artery disease with 6 vessel bypass in 2007. In 2015, she had a non-ST myocardial infarction and underwent percutaneous balloon intervention of the mid RCA with stent placement and balloon angioplasty of the proximal RCA. She also underwent angioplasty of the saphenous vein graft to the posterior descending artery. In October 2019, she had angiography at [facility] after presenting with non-STEMI. At that time, she had patent HEART to LAD and 80% stenosis in the SVG to diagonal 1. Other grafts were felt to be occluded. She underwent a PCI of the saphenous vein graft to the first diagonal vessel and also the [place] left circumflex artery with a drug-eluting stent. She did present to the emergency room in October of 2021 with shortness of breath as well as palpitations. Her blood pressure was noted to be elevated her laboratory tests were noted to be normal. Her ejection fraction has been estimated to be 60% with no wall motion abnormalities present. She did have a stress test which was abnormal, however with her renal function and lack of cardiac symptoms it was opted to treat medically. Review of systems: All systems reviewed. All else is negative except in HPI. [facility] Medical History Arm paresthesia, right Asthma Atherosclerosis of coronary artery bypass graft without angina pectoris Atherosclerotic heart disease of [place] coronary artery without angina pectoris Cardiomyopathy CHF (congestive heart failure) CKD (chronic kidney disease) COPD (chronic obstructive pulmonary disease) COVID-19 (~04/2022) Essential hypertension GERD (gastroesophageal reflux disease) History of non-ST elevation myocardial infarction (NSTEMI) (01/26/21) Hyperlipidemia Hypothyroidism Insect bite Morbid obesity NSTEMI (non-ST elevated myocardial infarction) Obesity 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 Type 2 diabetes mellitus without complication Vertigo Home Medications montelukast 10 mg tablet 10 mg PO DAILY ASTHMA 12/17/13 [History Last Taken 11/03/23] aspirin 81 mg tablet,delayed release 81 mg PO QDAY HEART HEALTH 11/19/17 [History Last Taken 11/03/23] cetirizine 10 mg tablet (Zyrtec) 10 mg PO QDAY allergies 02/15/20 [History Last Taken 11/03/23] allopurinol 100 mg tablet 100 mg PO DAILY GOUT 11/22/21 [History Last Taken 11/03/23] spironolactone 25 mg tablet 25 mg PO DAILY HEART 08/28/22 [History Last Taken 11/03/23] ipratropium 20 mcg-albuterol 100 mcg/actuation mist for inhalation (Combivent Respimat) 1 puff inhalation Q6H BREATHING 09/20/22 [History Last Taken 11/03/23] ferrous sulfate 325 mg (65 mg iron) tablet 325 mg PO BID SUPPLEMENT 10/04/22 [History Last Taken Unknown] furosemide 40 mg tablet (Lasix) 40 mg PO DAILY 12/25/22 [History Last Taken Unknown] cholecalciferol (vitamin D3) 25 mcg (1,000 unit) tablet 25 mcg PO SUTUTHSA 06/05/23 [History Last Taken 11/02/23] ezetimibe 10 mg tablet (Zetia) 10 mg PO DAILY #90 tabs 06/05/23 [Rx Last Taken Unknown] glipizide 10 mg tablet 2.5 mg PO DAILY DM 06/05/23 [History Last Taken Unknown] levothyroxine 100 mcg tablet 100 mcg PO DAILY THYROID 06/05/23 [History Last Taken 11/03/23] metoprolol tartrate 50 mg tablet 50 mg PO DAILY 06/05/23 [History Last Taken 11/03/23] prednisone 20 mg tablet 10 mg PO DAILY PRN pain 06/05/23 [History Last Taken Unknown] omeprazole 20 mg capsule,delayed release 20 mg PO DAILY 11/04/23 [History Last Taken 11/03/23] vitamins A,C,I-ryat-vofzqk 2,148 mcg-113 mg-45 mg-17.4 mg tablet (Eye Multivitamin) 1 tab PO BID 11/04/23 [History Last Taken 11/03/23] Allergy/AdvReac Type Severity Reaction Status Date / Time Anesthetics - Amide Type - Allergy Other Verified 11/04/23 09:40 Select A [Anesthetics - Amide Type] acetaminophen [From Tylenol] AdvReac Severe Other Verified 11/04/23 09:40 pravastatin AdvReac Intermediate Myalgias Verified 11/04/23 09:40 after 15 years of taking cinnamon AdvReac Unknown Unknown Verified 11/04/23 09:40 Penicillins AdvReac Unknown Unknown Verified 11/04/23 09:40 Family History Mother , age 86, advanced age No problems noted. Father Prostate cancer Surgical History H/O coronary artery bypass surgery (10/11/07) History of cholecystectomy History of coronary artery stent placement (01/26/21) History of hysterectomy Hx of appendectomy Hx of bilateral cataract extraction Social History (Updated 11/04/23 @ 13:06 by Saba Avitia) household members: family housing: house Smoking Status: Never smoker alcohol intake: never substance use type: does not use caffeine: Yes Type: carbonated beverages what type of physical activity do you participate in: none seatbelt use: always do you feel safe at home: Yes Physical Exam Const alert and oriented x3 HEENT normocephalic Eyes no scleral icterus Resp Resp Narrative: Bilateral crackles Cardio regular rate Risk Stratification Risk Stratification Applicable: No Charges/Coding Visit Charges Inpatient E&M: 62053 Init Hosp L2 Objective Data Vital Signs: Vital Signs Temp Pulse Resp BP Pulse Ox O2 Del Method O2 Flow Rate 97.9 F 88 18 148/82 H 94 Nasal Cannula 3 11/04/23 13:06 11/04/23 14:42 11/04/23 14:42 11/04/23 16:00 11/04/23 14:42 11/04/23 14:42 11/04/23 14:42 Oxygen Flow Rate (L/min) 3 Oxygen Delivery Method Nasal Cannula Weight: 178 lb 15.893 oz Body Mass Index (BMI) 33.8 Intake & Output: Intake and Output for Last 24 Hours 11/02/23 11/03/23 11/04/23 23:59 23:59 23:59 Intake Total 13.35 / 13.35 Balance 13.35 / 13.35 Lab / Micro Data 11/04/23 10:03 11/04/23 10:03 Labs: Laboratory Results - last 24 hr 11/04/23 10:03: WBC 18.1 H, RBC 3.64 L, Hgb 10.7 L, Hct 34.2 L, MCV 94.0, MCH 29.4, MCHC 31.3 L, RDW Std Deviation 47.9 H, RDW Coeff of Kamar 14.0, Plt Count 416, MPV 10.7, Immature Gran % (Auto) 0.500, Neut % (Auto) 91.5 H, Lymph % (Auto) 5.3 L, Josephine % (Auto) 2.2, Eos % (Auto) 0.2, Baso % (Auto) 0.3, Absolute Neuts (auto) 16.6 H, Absolute Lymphs (auto) 0.96, Nucleated RBC % 0, PT 13.8, INR 1.1, APTT 27.4, Sodium 136, Potassium 4.8, Chloride 106, Carbon Dioxide 23.0, Anion Gap 7, BUN 27 H, Creatinine 1.73 H, Est GFR (MDRD) Af Amer 37 L, Est GFR (MDRD) Non-Af 30 L, BUN/Creatinine Ratio 15.6, Glucose 242 H, Calcium 8.8, Troponin I High Sens 1610 H*, B-Natriuretic Peptide 1120.0 H 11/04/23 13:15: Troponin I High Sens 4561 H* 11/04/23 13:35: Urine Color Straw, Urine Clarity Clear, Urine pH 6.5, Ur Specific [place] 1.010, Urine Protein 30 H, Urine Glucose (UA) Normal, Urine Ketones Negative, Urine Occult Blood 25 H, Urine Nitrite Negative, Urine Bilirubin Negative, Urine Urobilinogen Normal, Ur Leukocyte Esterase 500 H, Urine RBC 0 SEEN, Urine WBC 10-25 SEEN, Ur Squamous Epith Cells 5-10 SEEN, Urine Bacteria 2+, Urine Mucus 0 SEEN 11/04/23 16:07: Troponin I High Sens [id number] H* 11/04/23 16:27: POC Glucose 229 H Cardiology Labs/Tests 11/04/23 10:03: WBC 18.1 H, RBC 3.64 L, Hgb 10.7 L, Hct 34.2 L, MCV 94.0, MCH 29.4, MCHC 31.3 L, Plt Count 416, MPV 10.7, Immature Gran % (Auto) 0.500, Neut % (Auto) 91.5 H, Lymph % (Auto) 5.3 L, Josephine % (Auto) 2.2, Eos % (Auto) 0.2, Baso % (Auto) 0.3, Absolute Neuts (auto) 16.6 H, Nucleated RBC % 0, PT 13.8, INR 1.1, APTT 27.4, Sodium 136, Potassium 4.8, Chloride 106, Carbon Dioxide 23.0, Anion Gap 7, BUN 27 H, Creatinine 1.73 H, Est GFR (MDRD) Af Amer 37 L, Est GFR (MDRD) Non-Af 30 L, BUN/Creatinine Ratio 15.6, Glucose 242 H, Calcium 8.8, B-Natriuretic Peptide 1120.0 H 11/04/23 13:35: Urine Color Straw, Urine Clarity Clear, Urine pH 6.5, Ur Specific [place] 1.010, Urine Protein 30 H, Urine Glucose (UA) Normal, Urine Ketones Negative, Urine Occult Blood 25 H, Urine Nitrite Negative, Urine Bilirubin Negative, Urine Urobilinogen Normal, Ur Leukocyte Esterase 500 H, Urine RBC 0 SEEN, Urine WBC 10-25 SEEN Rhythm: EKG: ECHO: Stress Test: Cardiac Cath: PCI: CT Surgery: Holter monitor: EPS: PPM: CXR: Chest CT Scan: Radiography Diagnostic Testing: Radiology Impression Chest X-Ray 11/04/23 11:05 IMPRESSION: Prior CABG. Findings suggestive of CHF with bibasilar scarring and/or atelectasis and small bilateral effusions. Electronically Signed: Brandyn Cheng MD at 11:35 EST ,
[2023-11-04] MEDS: Insulin Lispro 100 UNIT/ML INSULN.PEN SC (17:43)
[2023-11-04] MEDS: Ferrous Sulfate 325 MG Tablet PO (17:44)
[2023-11-04] MEDS: 0.9% Saline Lock 10 ML Syringe IV (17:44)
[2023-11-04 18:35] LABS: Partial Thromboplast Time 97.3 Seconds (24.1-36.2)
[2023-11-04] MEDS: Ipratropium/Albuterol Sulfate 3 ML AMPUL.NEB INHALATION (19:39)
--- OUTSIDE RECORDS SUMMARY | 2023-11-04 19:41 | XMS RPT_ITS | CCD ---
Author Name Unknown Address [address] [place] [address] Organization [facility] Care Team Providers Care Registered Veterinary Technician Name Role Phone Mariama Harrison Unavailable Unavailable Deepak Harper Unavailable Unavailable OBED Milian, Saba Mckeon Unavailable Mariama Harrison Unavailable Unavailable CARLO MARIO MD Attending Unavailable LATOUFCARLO MD Consulting Unavailable LATOUFCARLO MD Admitting Unavailable LATOUCARLO Holt MD Primary Care Unavailable PROVIDER, UNKNOWN Consulting Unavailable PROVIDER, UNKNOWN Consulting Unavailable PROVIDER, UNKNOWN Consulting Unavailable LATOUCARLO Holt MD Consulting Unavailable LATOUFCARLO MD Attending Unavailable LATOUCARLO Holt MD Admitting Unavailable LATOUFCARLO MD Primary Care Unavailable PROVIDER, UNKNOWN Consulting Unavailable PROVIDER, UNKNOWN Consulting Unavailable PROVIDER, UNKNOWN Consulting Unavailable LATOUCARLO Holt MD Consulting Unavailable LATOUCARLO Holt MD Attending Unavailable LATOUCARLO Holt MD Admitting Unavailable LATOUCARLO Holt MD Primary Care Unavailable PROVIDER, UNKNOWN Consulting Unavailable PROVIDER, UNKNOWN Consulting Unavailable PROVIDER, UNKNOWN Consulting Unavailable LATOUCARLO Holt MD Attending Unavailable LATOUFCARLO MD Consulting Unavailable LATOUFCARLO MD Admitting Unavailable LATOUFCARLO MD Primary Care Unavailable PROVIDER, UNKNOWN Consulting Unavailable PROVIDER, UNKNOWN Consulting Unavailable PROVIDER, UNKNOWN Consulting Unavailable LATOUFCARLO MD Attending Unavailable LATOUF, CARLO DUQUE Admitting Unavailable LATOUFCARLO MD Consulting Unavailable LATOUCARLO Holt MD Primary Care Unavailable PROVIDER, UNKNOWN Consulting Unavailable PROVIDER, UNKNOWN Consulting Unavailable PROVIDER, UNKNOWN Consulting Unavailable LATOUCARLO Holt MD Attending Unavailable LATOUF, CARLO DUQUE Admitting Unavailable LATOUFCARLO MD Consulting Unavailable LATOUFCARLO MD Primary Care Unavailable PROVIDER, UNKNOWN Consulting Unavailable PROVIDER, UNKNOWN Consulting Unavailable PROVIDER, UNKNOWN Consulting Unavailable CARLO MARIO MD Admitting Unavailable CARLO MARIO MD Primary Care Unavailable CARLO MARIO MD Attending Unavailable CARLO MARIO MD Consulting Unavailable PROVIDER, UNKNOWN Consulting Unavailable PROVIDER, UNKNOWN Consulting Unavailable PROVIDER, UNKNOWN Consulting Unavailable CARLO MARIO MD Attending Unavailable CARLO MARIO MD Admitting Unavailable CARLO MARIO MD Primary Care Unavailable CARLO MRAIO MD Consulting Unavailable PROVIDER, UNKNOWN Consulting Unavailable PROVIDER, UNKNOWN Consulting Unavailable PROVIDER, UNKNOWN Consulting Unavailable LATOYA YANG DO Admitting Unavailable LATOYA YANG DO Primary Care Unavailable CARLO MARIO MD Consulting Unavailable LATOYA YANG DO Attending Unavailable CARLO MARIO MD Referring Unavailable PROVIDER, UNKNOWN Consulting Unavailable PROVIDER, UNKNOWN Consulting Unavailable PROVIDER, UNKNOWN Consulting Unavailable LATOYA YANG DO Primary Care Unavailable LATOYA YANG DO Attending Unavailable LATOYA YANG DO Admitting Unavailable CARLO MARIO MD Referring Unavailable CARLO MARIO MD Consulting Unavailable PROVIDER, UNKNOWN Consulting Unavailable PROVIDER, UNKNOWN Consulting Unavailable PROVIDER, UNKNOWN Consulting Unavailable GAGE EVERETT DO Attending Unavailable GAGE EVERETT DO Admitting Unavailable CARLO MARIO MD Consulting Unavailable GAGE EVERETT DO Primary Care Unavailable PROVIDER, UNKNOWN Consulting Unavailable PROVIDER, UNKNOWN Consulting Unavailable PROVIDER, UNKNOWN Consulting Unavailable CARLO MARIO MD Attending Unavailable CARLO MARIO MD Admitting Unavailable CARLO MARIO MD Primary Care Unavailable CARLO MARIO MD Consulting Unavailable PROVIDER, UNKNOWN Consulting Unavailable PROVIDER, UNKNOWN Consulting Unavailable PROVIDER, UNKNOWN Consulting Unavailable CHEYANNE POWELL MD Attending Unava ilable CHEYANNE POWELL MD Admitting Unava ilable CHEYANNE POWELL MD Primary Care Unava ilable CARLO MARIO MD Consulting Unavailable PROVIDER, UNKNOWN Consulting Unavailable PROVIDER, UNKNOWN Consulting Unavailable PROVIDER, UNKNOWN Consulting Unavailable CARLO MARIO MD Attending Unavailable CARLO MARIO MD Admitting Unavailable CARLO MARIO MD Primary Care Unavailable CARLO MARIO MD Consulting Unavailable PROVIDER, UNKNOWN Consulting Unavailable PROVIDER, UNKNOWN Consulting Unavailable PROVIDER, UNKNOWN Consulting Unavailable CARLO MARIO MD Attending Unavailable CARLO MARIO MD Admitting Unavailable CARLO MARIO MD Primary Care Unavailable CARLO MARIO MD Consulting Unavailable PROVIDER, UNKNOWN Consulting Unavailable PROVIDER, UNKNOWN Consulting Unavailable PROVIDER, UNKNOWN Consulting Unavailable CARLO MARIO MD Attending Unavailable CARLO MARIO MD Admitting Unavailable CARLO MARIO MD Primary Care Unavailable CARLO MARIO MD Consulting Unavailable PROVIDER, UNKNOWN Consulting Unavailable PROVIDER, UNKNOWN Consulting Unavailable PROVIDER, UNKNOWN Consulting Unavailable Allergies Allergy Classification Reported Allergen(s) Allergy Type Date of Onset Reaction(s) Facility (4 sources) albuterol Drug Allergy [facility] Work Phone: (4 sources) MULTIPLE SEASONAL ALLERGIES; Translations: [MULTIPLE SEASONAL ALLERGIES] allergy to substance SOB, nasal congestion [facility] Work Phone: (4 sources) INHALED ANESTHETICS drug allergy [facility] Work Phone: (4 sources) ACETOMINOPHEN drug allergy 7 [facility] Work Phone: (1 source) Acetaminophen Drug Allergy [facility] Repository (1 source) Cinnamon Preparation; Translations: [CINNAMON] Drug Allergy [facility] Repository (1 source) Penicillin Drug Allergy [facility] Repository (1 source) ANESTHETIC, AMIDE Drug allergy (disorder) [facility] Repository Medications Completed/Discontinued Medications Medication Drug Class(es) Dates Sig (Normalized) Sig (Original) aspirin 81 mg delayed release oral tablet (4 sources) Nonsteroidal Anti-inflammatory Drug Start: 12-13-2016 take 1 tablet by mouth once daily ASPIRIN EC 81 MG TBEC One tablet by mouth daily ASPIRIN [id number] Saba Avitia RN cetirizine hydrochloride 10 mg oral tablet (4 sources) Histamine-1 Receptor Antagonist Start: 12-13-2016 take 1 tablet by mouth once daily ZYRTEC ALLERGY 10 MG TABS One tablet by mouth daily CETIRIZINE HCL [id number] Saba Avitia RN clopidogrel 75 mg oral tablet (4 sources) P2Y12 Platelet Inhibitor Start: 12-13-2016 take 1 tablet by mouth once daily CLOPIDOGREL BISULFATE 75 MG TABS One tablet by mouth daily CLOPIDOGREL BISULFATE [id number] Saba Avitia RN furosemide 20 mg oral tablet (4 sources) Loop Diuretic Start: 12-13-2016 take 1 tablet by mouth once daily FUROSEMIDE 20 MG TABS One tablet by mouth daily FUROSEMIDE [id number] Saba Avitia RN glipiZIDE 10 mg oral tablet (4 sources) Sulfonylurea Start: 12-13-2016 take 1 tablet by mouth twice daily GLIPIZIDE 10 MG TABS One tablet by mouth twice daily GLIPIZIDE [id number] Saba Avitia RN IPRATROPIUM BROMIDE HFA AERS (4 sources) Anticholinergic Start: 12-13-2016 ATROVENT HFA AERS as directed IPRATROPIUM BROMIDE HFA AERS [id number] Saba Avitia RN lisinopril 20 mg oral tablet (4 sources) Angiotensin Converting Enzyme Inhibitor Start: 12-13-2016 take 1 tablet by mouth once daily LISINOPRIL 20 MG TABS One tablet by mouth daily LISINOPRIL [id number] Saba Avitia RN meclizine hydrochloride 12.5 mg oral tablet (4 sources) Antiemetic Start: 12-13-2016 take 1 tablet by mouth three times daily MECLIZINE HCL 12.5 MG TABS One tablet by mouth three times daily MECLIZINE HCL [id number] Saba Avitia RN metFORMIN hydrochloride 1000 mg oral tablet (4 sources) Biguanide Start: 12-13-2016 take 1 tablet by mouth twice daily METFORMIN HCL 1000 MG TABS One tablet by mouth twice daily METFORMIN HCL [id number] Saba Avitia RN metoprolol tartrate 50 mg oral tablet (4 sources) beta-Adrenergic Bernie Start: 12-13-2016 take 1 tablet by mouth twice daily METOPROLOL TARTRATE 50 MG TABS One tablet by mouth twice daily METOPROLOL TARTRATE [id number] Saba Avitia RN montelukast 10 mg oral tablet (4 sources) Leukotriene Receptor Antagonist Start: 12-13-2016 take 1 tablet by mouth once daily SINGULAIR 10 MG TABS One tablet by mouth daily MONTELUKAST SODIUM [id number] Saba Avitia RN omeprazole 20 mg delayed release oral capsule (4 sources) Proton Pump Inhibitor Start: 12-13-2016 take 1 tablet by mouth once daily OMEPRAZOLE 20 MG CPDR One tablet by mouth daily OMEPRAZOLE [id number] Saba Avitia RN pravastatin sodium 40 mg oral tablet (4 sources) HMG-CoA Reductase Inhibitor Start: 12-13-2016 take 1 tablet by mouth at bedtime PRAVACHOL 40 MG TABS One tablet by mouth at bedtime. PRAVASTATIN SODIUM [id number] Saba Avitia RN levothyroxine sodium 0.125 mg oral tablet (4 sources) l-Thyroxine Start: 12-13-2016 take 1 tablet by mouth once daily LEVOTHYROXINE SODIUM 125 MCG TABS One tablet by mouth daily LEVOTHYROXINE SODIUM [id number] Saba Avitia RN Problems Active Problems Problem Classification Problem Date Documented Date Episodic/Chronic Acute myocardial infarction (4 sources) Acute non-ST segment elevation myocardial infarction; Translations: [Non-ST elevation (NSTEMI) myocardial infarction] Onset: 12-13-2016 12-13-2016 Chronic Chronic kidney disease (3 sources) Chronic kidney disease, stage 4 (severe); Translations: [Chronic kidney disease, stage 4 (severe)] Onset: 05-27-2023 Chronic Congestive heart failure; nonhypertensive (4 sources) Chronic diastolic (congestive) heart failure; Translations: [Chronic diastolic (congestive) heart failure] Onset: 12-13-2016 12-13-2016 Chronic Coronary atherosclerosis and other heart disease (2 sources) Coronary arteriosclerosis; Translations: [Atherosclerosis of coronary artery bypass graft(s) without angina pectoris] Onset: 06-23-2017 06-23-2017 Chronic Deficiency and other anemia (1 source) Anemia in chronic kidney disease; Translations: [Anemia in chronic kidney disease] Onset: 12-30-2022 Chronic Deficiency and other anemia (1 source) Anemia, unspecified; Translations: [Anemia, unspecified] Onset: 08-07-2023 Episodic Deficiency and other anemia (4 sources) Folate deficiency anemia, unspecified; Translations: [Folate deficiency anemia, unspecified] Onset: 11-04-2022 Episodic Diabetes mellitus with complications (1 source) Type 2 diabetes mellitus with other specified complication; Translations: [Type 2 diabetes mellitus with other specified complication] Onset: 08-07-2023 Chronic Diabetes mellitus without complication (7 sources) Diabetes mellitus; Translations: [Type 2 diabetes mellitus without complications] Onset: 12-13-2016 12-13-2016 Chronic Disorders of lipid metabolism (5 sources) Hyperlipidemia; Translations: [Hyperlipidemia, unspecified] Onset: 12-13-2016 12-13-2016 Chronic Esophageal disorders (4 sources) Gastroesophageal reflux disease; Translations: [Gastro-esophageal reflux disease without esophagitis] Onset: 12-13-2016 12-13-2016 Chronic Essential hypertension (4 sources) Hypertensive disorder; Translations: [Essential (primary) hypertension] Onset: 12-13-2016 12-13-2016 Chronic Genitourinary symptoms and ill-defined conditions (2 sources) Dysuria; Translations: [Unspecified symptoms and signs involving the genitourinary system] Onset: 12-19-2022 Episodic Nutritional deficiencies (1 source) Vitamin D deficiency, unspecified; Translations: [Vitamin D deficiency, unspecified] Onset: 08-07-2023 Chronic Other endocrine disorders (1 source) Secondary hyperparathyroidism, not elsewhere classified; Translations: [Secondary hyperparathyroidism, not elsewhere classified] Onset: 12-30-2022 Chronic Other nutritional; endocrine; and metabolic disorders (2 sources) Body mass index (BMI) 40.0-44.9, adult; Translations: [Body mass index (BMI) 40.0-44.9, adult] Onset: 06-23-2017 06-23-2017 Chronic Other nutritional; endocrine; and metabolic disorders (1 source) Hyperuricemia without signs of inflammatory arthritis and tophaceous disease; Translations: [Hyperuricemia without signs of inflammatory arthritis and tophaceous disease] Onset: 08-07-2023 Episodic Thyroid disorders (6 sources) Hypothyroidism; Translations: [Hypothyroidism, unspecified] Onset: 12-13-2016 12-13-2016 Chronic Unclassified (3 sources) Placement of stent in coronary artery ; Translations: [Presence of coronary angioplasty implant and graft] Onset: 12-13-2016 12-13-2016 Urinary tract infections (3 sources) Urinary tract infection, site not specified; Translations: [Urinary tract infection, site not specified] Onset: 07-19-2023 Episodic Past or Other Problems Problem Classification Problem Date Documented Da te Episodic/Chronic Coronary atherosclerosis and other heart disease (4 sources) History of coronary artery bypass grafting; Translations: [Presence of aortocoronary bypass graft] Onset: 12-13-2016 12-13-2016 Episodic Deficiency and other anemia (2 sources) Anemia; Translations: [Anemia, unspecified] Onset: 06-23-2017 06-23-2017 Episodic Fluid and electrolyte disorders (1 source) Hyperkalemia; Translations: [Hyperkalemia] Onset: 02-14-2023 Episodic Results Test Name Value Interpretation Reference Range Facil ity Vital Signs Date Time Vital Sign Value Performing Clinician Dejon pillai 06-23-2017 13:07-0400 BMI (Body Mass Index) 40.78 kg/m2 [facility] Work Phone: 06-23-2017 13:07-0400 BP Diastolic 58 mm[Hg] [facility] Work Phone: 06-23-2017 13:07-0400 BP Systolic 142 mm[Hg] [facility] Work Phone: 06-23-2017 13:07-0400 Height 157.48 cm [facility] Work Phone: 06-23-2017 13:07-0400 Pulse (Heart Rate) 88 /min [facility] Work Phone: 06-23-2017 13:07-0400 Respiratory Rate 20 /min [facility] Work Phone: 06-23-2017 13:07-0400 Weight 101.15 kg [facility]ama [facility] Work Phone: 12-18-2016 11:55-0400 Heart rate 74 /min [facility] Work Phone: 12-18-2016 11:39-0400 BMI (Body Mass Index) 40.93 kg/m2 Saba Milian PA-C [facility] Work Phone: 12-18-2016 11:39-0400 BP Diastolic 50 mm[Hg] Saba Milian PA-C [facility] Work Phone: 12-18-2016 11:39-0400 BP Systolic 130 mm[Hg] Saba Milian PA-C [facility] Work Phone: 12-18-2016 11:39-0400 Height 157.48 cm Saba Milian PA-C [facility] Work Phone: 12-18-2016 11:39-0400 Pulse (Heart Rate) 74 /min [facility] Work Phone: 12-18-2016 11:39-0400 Respiratory Rate 20 /min [facility] Work Phone: 12-18-2016 11:39-0400 Weight 101.52 kg [facility] Work Phone: Encounters Encounter Date Encounter Type Care Provider Facility Start: 08-07-2023 ambulatory CARLO DUQUE [facility] Start: 07-19-2023 End: 07-19-2023 ambulatory CARLO DUQUE [facility] Start: 06-02-2023 End: 06-02-2023 ambulatory CARLO DUQUE [facility] Start: 05-27-2023 End: 05-27-2023 ambulatory CARLO DUQUE [facility] Start: 03-06-2023 End: 03-06-2023 Emergency department patient visit LATOYA TRIVEDI [facility] Start: 02-17-2023 End: 02-17-2023 ambulatory CARLO DUQUE [facility] Start: 02-14-2023 End: 02-14-2023 ambulatory CARLO DUQUE [facility] Start: 01-23-2023 End: 01-23-2023 ambulatory CARLO DUQUE [facility] Start: 12-30-2022 End: 12-30-2022 ambulatory CHEYANNE POWELL [facility] Start: 12-19-2022 End: 04-13-2023 ambulatory CARLO DUQUE [facility] Start: 11-15-2022 End: 11-15-2022 ambulatory CARLO DUQUE [facility] Start: 11-04-2022 End: 11-04-2022 ambulatory CARLO DUQUE [facility] Start: 09-14-2022 End: 09-14-2022 Emergency department patient visit LATOYA TRIVEDI [facility] Procedures Date Procedure Procedure Detail Performing Clinician Start: 06-23-2017 End: 06-23-2017 WEIGHT RECORDER Saba Milian PA-C Work Phone: Start: 06-23-2017 End: 06-23-2017 Follow Up Appt 6 months Saba Milian PA-C Work Phone: Start: 12-18-2016 End: 06-18-2017 *Hepatic Function Panel Lasha Win MD Start: 12-18-2016 End: 06-11-2017 Ecg routine ecg w/least 12 lds w/i&r Lasha Win MD Start: 12-18-2016 End: 06-11-2017 Follow Up Appt 6 months Lasha Win MD Start: 12-18-2016 End: 06-18-2017 Lipid 1996 panel - Serum or Plasma Lasha Win MD Start: 12-18-2016 End: 06-11-2017 MMM Lasha Win MD Start: 12-13-2016 Placement of stent i n coronary artery Status post cardiac stent placement Mariama Harrison Plan of Treatment Date Care Activity Detail Author Start: 12-23-2017 End: 12-23-2017 Appointment Appointment [facility] Work Phone: Start: 12-17-2017 End: 06-20-2017 *Hepatic Function Panel *Hepatic Function Panel [facility] Work Phone: Start: 12-17-2017 End: 06-20-2017 Lipid panel [AGGREGATE] *Lipid Profile CC PCP [facility] Work Phone: Start: 06-23-2017 End: 06-23-2017 *CBC with Differential *CBC with Differential [facility] Work Phone: Start: 06-23-2017 End: 06-23-2017 WEIGHT RECORDER WEIGHT RECORDER [facility] Work Phone: Start: 06-23-2017 End: 06-23-2017 Follow Up Appt 6 months Follow Up Appt 6 months [facility] Work Phone: Start: 06-23-2017 End: 06-23-2017 Follow Up Appt Other Follow Up Appt Other [facility] Work Phone: Start: 06-23-2017 End: 06-23-2017 Appointment Appointment [facility] Work Phone: Start: 12-18-2016 End: 06-18-2017 *Hepatic Function Panel *Hepatic Function Panel [facility] Work Phone: Start: 12-18-2016 End: 06-11-2017 Ecg routine ecg w/least 12 lds w/i&r EKG (In office) [facility] Work Phone: Start: 12-18-2016 End: 06-11-2017 Follow Up Appt 6 months Follow Up Appt 6 months [facility] Work Phone: Start: 12-18-2016 End: 06-18-2017 Lipid panel [AGGREGATE] *Lipid Profile CC PCP [facility] Work Phone: Start: 12-18-2016 End: 06-11-2017 MMM MMM [facility] Work Phone: Payers Date Payer Category Payer Medicare [id number] 1945 Unknown [id number] 2.16.8 [id number] 1945 Unknown [id number] 2.16.8 [id number] 1945 Unknown [id number] 2.16.8 [id number] 1945 Unknown [id number] 2.16.8 [id number] 1945 Unknown [id number] 2.16.8 [id number] 1944 Unknown [id number] 2.16.8 [id number] 1944 Unknown [id number] 2.16.84 [id number] 1945 Unknown [id number] 2.16.84 [id number] 1945 Unknown [id number] 2.16.84 0.1.181903.3.579.2.651 1944 Unknown [id number] 2.16.84 [id number] 1944 Unknown [id number] 2.16.84 [id number] 1944 Unknown [id number] 2.16.84 [id number] 1944 Unknown [id number] 2.16.84 0.1.927673.3.579.2.651 1944 Unknown [id number] 2.16.84 0.1.407906.3.579.2.651 1945 Unknown [id number] 2.16.84 [id number] 1945 Unknown [id number] 2.16.84 [id number] Medicare [id number] Clinical Note 07-30-2022 Note Date & Type Note Facility 07-30-2022 Note . MICRO - Microbiology PROCEDURE: Culture Respiratory with Gram Stain [^1 *1] SOURCE: Sputum BODY SITE: COLLECTED DATE/TIME: 07/27/2022 17:23 EST RECEIVED DATE/TIME: 07/28/2022 19:10 EST START DATE/TIME: 07/28/2022 19:11 EST FREE TEXT SOURCE: FINAL REPORTS Final Report [] Verified Date/Time/Personnel: 07/30/2022 07:52 EST Normal respiratory bernardo present. Sensitivity testing not indicated. PRELIMINARY REPORTS Preliminary Report [] Verified Date/Time/Personnel: 07/29/2022 08:08 EST No growth to date STAINS GS [] Verified Date/Time/Personnel: 07/28/2022 23:16 EST Predominance of polys Rare Gram Positive Cocci Interpretive Data ^1: Culture Respiratory with Gram Stain Requests for Mycoplasma, Legionella, Fungi, Mycobacteria, Chlamydia, and Viruses require ordering of those individual tests. Performing Locations *1: This test was performed at: [address], [address] [place] [address] (ID) Clinical Note 07-27-2022 Note Date & Type Note Facility 07-27-2022 Note . MICRO - Microbiology PROCEDURE: Blood Culture (bacterial) [*1] SOURCE: Blood BODY SITE: COLLECTED DATE/TIME: 07/21/2022 20:36 EST RECEIVED DATE/TIME: 07/22/2022 14:47 EST START DATE/TIME: 07/22/2022 14:47 EST FREE TEXT SOURCE: FINAL REPORTS Final Report [] Verified Date/Time/Personnel: 07/27/2022 14:59 EST Blood Culture: No Growth at 5 days. PRELIMINARY REPORTS Preliminary Report [] Verified Date/Time/Personnel: 07/22/2022 15:59 EST Culture has been received in lab and is no growth to date. Routine cultures are held for 5 days. Performing Locations *1: This test was performed at: [address], [address] [place] [address]) Clinical Note 07-27-2022 Note Date & Type Note Facility 07-27-2022 Note . MICRO - Microbiology PROCEDURE: Blood Culture (bacterial) [O1 *1] SOURCE: Blood BODY SITE: COLLECTED DATE/TIME: 07/21/2022 20:36 EST RECEIVED DATE/TIME: 07/22/2022 14:27 EST START DATE/TIME: 07/22/2022 14:27 EST FREE TEXT SOURCE: FINAL REPORTS Final Report [] Verified Date/Time/Personnel: 07/27/2022 14:59 EST Blood Culture: No Growth at 5 days. PRELIMINARY REPORTS Preliminary Report [] Verified Date/Time/Personnel: 07/22/2022 14:59 EST Culture has been received in lab and is no growth to date. Routine cultures are held for 5 days. Order Comments O1: Blood Culture (bacterial) fax results to [phone] Performing Locations *1: This test was performed at: [facility], [address] [place] [address], [address] [place] [address] (ID) Summary Purpose Family History No Family History Records FoundNo Family History Records FoundNo Family History Records Found Advance Directives No Advanced Directives Records FoundNo Advanced Directives Records FoundNo Advanced Directives Records Found Additional Source Comments INFORMATION SOURCE (unrecogn ized section and content) DATE CREATED AUTHOR AUTHOR'S ORGANIZ ATION 07/30/2022 [facility] ([place]) DATE CREATED AUTHOR AUTHOR'S ORGANIZ ATION 08/09/2023 [facility] FOR RECORDS PERTAINING TO PATIENTS WHO ARE OR HAVE BEEN ENROLLED IN A CHEMICAL DEPENDENCY/SUBSTANCEABUSE PROGRAM, SOME INFORMATION MAY BE OMITTED. This clinical summary was aggregated from multiple sources. Caution should be exercised in using it in the provision of clinical care. This summary normalizes information from multiple sources, and as a consequence, information in this document may materially change the coding, format and clinical context of patient data. In addition, data may be omitted in some cases. CLINICAL DECISIONS SHOULD BE BASED ON THE PRIMARY CLINICAL RECORDS. [email or web address] [facility]. provides no warranty or guarantee of the accuracy or completeness of information in this document.
[2023-11-04 21:21] LABS: Bedside Glucose 195 mg/dL (74-106)
--- OUTSIDE RECORDS SUMMARY | 2023-11-04 21:21 | XMS RPT_ITS | CCD ---
Author Name Unknown Address [address] [place] [address] Organization [facility] Care Team Providers Care Senior Adults Director Name Role Phone Mariama Harrison Unavailable Unavailable Deepak Harper Unavailable Unavailable OBED Milian, Saba Mckeon Unavailable [phone] Mariama Harrison Unavailable Unavailable CARLO MARIO MD [...] Facility (4 sources) albuterol Drug Allergy 7 [facility] Work Phone: (4 sources) MULTIPLE SEASONAL ALLERGIES; Translations: [MULTIPLE SEASONAL ALLERGIES] allergy to substance SOB, nasal congestion [facility] Work Phone: (4 sources) INHALED ANESTHETICS drug allergy [facility] Work Phone: (4 sources) ACETOMINOPHEN drug allergy [facility] Work Phone: (1 source) Acetaminophen Drug Allergy [facility] Repository (1 source) Cinnamon Preparation; Translations: [CINNAMON] Drug Allergy [facility] (1 source) Penicillin Drug Allergy [facility] (1 source) ANESTHETIC, AMIDE Drug allergy (disorder) [facility] Medications Completed/Discontinued Medications Medication Drug Class(es) Dates Sig (Normalized) Sig (Original) aspirin 81 mg delayed release oral tablet (4 sources) Nonsteroidal Anti-inflammatory Drug Start: 12-13-2016 take 1 tablet by mouth once daily ASPIRIN EC 81 MG TBEC One tablet by mouth daily ASPIRIN [id number] Saba Avitia RN cetirizine hydrochloride 10 mg oral tablet (4 sources) Histamine-1 Receptor Antagonist Start: 12-13-2016 take 1 tablet by mouth once daily ZYRTEC ALLERGY 10 MG TABS One tablet by mouth daily CETIRIZINE HCL [id number] Saba Avitia RN clopidogrel 75 mg oral tablet (4 sources) P2Y12 Platelet Inhibitor Start: 12-13-2016 take 1 tablet by mouth once daily CLOPIDOGREL BISULFATE 75 MG TABS One tablet by mouth daily CLOPIDOGREL BISULFATE [id number] Saba Avitia RN furosemide 20 mg oral tablet (4 sources) Loop Diuretic Start: 12-13-2016 take 1 tablet by mouth once daily FUROSEMIDE 20 MG TABS One tablet by mouth daily FUROSEMIDE 54249251336 Saba Avitia RN glipiZIDE 10 mg oral tablet (4 sources) Sulfonylurea Start: 12-13-2016 take 1 tablet by mouth twice daily GLIPIZIDE 10 MG TABS One tablet by mouth twice daily GLIPIZIDE [id number] Saba Avitia RN IPRATROPIUM BROMIDE HFA AERS (4 sources) Anticholinergic Start: 12-13-2016 ATROVENT HFA AERS as directed IPRATROPIUM BROMIDE HFA AERS [id number] Saba Avitia RN lisinopril 20 mg oral tablet (4 sources) Angiotensin Converting Enzyme Inhibitor Start: 12-13-2016 take 1 tablet by mouth once daily LISINOPRIL 20 MG TABS One tablet by mouth daily LISINOPRIL [id number] Saba Avitia RN meclizine hydrochloride 12.5 mg oral tablet (4 sources) Antiemetic Start: 12-13-2016 take 1 tablet by mouth three times daily MECLIZINE HCL 12.5 MG TABS One tablet by mouth three times daily MECLIZINE HCL 55704704515 Saba Avitia RN metFORMIN hydrochloride 1000 mg oral tablet (4 sources) Biguanide Start: 12-13-2016 take 1 tablet by mouth twice daily METFORMIN HCL 1000 MG TABS One tablet by mouth twice daily METFORMIN HCL [id number] Saba Avitia RN metoprolol tartrate 50 mg oral tablet (4 sources) beta-Adrenergic Bernie Start: 12-13-2016 take 1 tablet by mouth twice daily METOPROLOL TARTRATE 50 MG TABS One tablet by mouth twice daily METOPROLOL TARTRATE [id number] Saba Avitia RN montelukast 10 mg oral tablet (4 sources) Leukotriene Receptor Antagonist Start: 12-13-2016 take 1 tablet by mouth once daily SINGULAIR 10 MG TABS One tablet by mouth daily MONTELUKAST SODIUM 63118516573 Saba Avitia RN omeprazole 20 mg delayed release oral capsule (4 sources) Proton Pump Inhibitor Start: 12-13-2016 take 1 tablet by mouth once daily OMEPRAZOLE 20 MG CPDR One tablet by mouth daily OMEPRAZOLE [id number] Saba Avitia RN pravastatin sodium 40 mg oral tablet (4 sources) HMG-CoA Reductase Inhibitor Start: 12-13-2016 take 1 tablet by mouth at bedtime PRAVACHOL 40 MG TABS One tablet by mouth at bedtime. PRAVASTATIN SODIUM [id number] Saba Avitia RN levothyroxine sodium 0.125 mg oral tablet (4 sources) l-Thyroxine Start: 12-13-2016 take 1 tablet by mouth once daily LEVOTHYROXINE SODIUM 125 MCG TABS One tablet by mouth daily LEVOTHYROXINE SODIUM [id number] Saba Avitia RN Problems Active Problems Problem [...] Mass Index) 40.93 kg/m2 Saba Milian PA-C [facility] Work Phone: 12-18-2016 11:39-0400 BP Diastolic 50 mm[Hg] Saba Milian PA-C [facility] Work Phone: 12-18-2016 11:39-0400 BP Systolic 130 mm[Hg] Saba Milian PA-C [facility] Work Phone: 12-18-2016 11:39-0400 Height 157.48 cm Saba Milian PA-C [facility] Work Phone: 12-18-2016 11:39-0400 Pulse (Heart Rate) 74 /min OBED [facility] Work Phone: 12-18-2016 11:39-0400 Respiratory Rate 20 /min OBED [facility] Work Phone: 12-18-2016 11:39-0400 Weight 101.52 kg [facility]ED [facility] Work Phone: Encounters Encounter Date Encounter Type Care Provider Facility Start: 08-07-2023 ambulatory CARLO DUQUE [facility] Start: 07-19-2023 End: 07-19-[address] [facility] Start: 06-02-2023 End: 06-02-[address] [facility] Start: 05-27-2023 End: 05-27-[address] [facility] Start: 03-06-2023 End: 03-06-2023 Emergency department patient visit LATOYA TRIVEDI [facility] Start: 02-17-2023 End: 02-17-[address] [facility] Start: 02-14-2023 End: 02-14-[address] [facility] Start: 01-23-2023 End: 01-23-[address] [facility] Start: 12-30-2022 End: 12-30-2022 ambulatory CHEYANNE POWELL [facility] Start: 12-19-2022 End: 04-13-[address] [facility] Start: 11-15-2022 End: 11-15-[address] [facility] Start: 11-04-2022 End: 11-04-[address] [facility] Start: 09-14-2022 End: 09-14-2022 Emergency department patient visit LATOYA TRIVEDI [facility] Procedures Date Procedure Procedure Detail Performing Clinician Start: 06-23-2017 End: 06-23-2017 A CLASS LINEMAN Saba Milian PA-C Work Phone: Start: 06-23-2017 [...] Group Work Phone: Start: 06-23-2017 End: 06-23-2017 A CLASS LINEMAN A CLASS LINEMAN [facility] Work Phone: Start: 06-23-2017 End: 06-23-2017 Follow Up Appt 6 months Follow Up Appt 6 months [facility] Work Phone: Start: 06-23-2017 End: 06-23-2017 Follow Up Appt Other Follow Up Appt Other [facility] Work Phone: Start: 06-23-2017 End: 06-23-2017 Appointment Appointment [facility] Work Phone: Start: 12-18-2016 End: 06-18-2017 *Hepatic Function Panel *Hepatic Function Panel [facility] Work Phone: Start: 12-18-2016 End: 06-11-2017 Ecg routine ecg w/least 12 lds w/i&r EKG (In office) [facility] Work Phone: Start: 12-18-2016 End: 06-11-2017 Follow Up Appt 6 months Follow Up Appt 6 months [facility] Work Phone: Start: 12-18-2016 End: 06-18-2017 Lipid panel [AGGREGATE] *Lipid Profile CC PCP [facility] Work Phone: Start: 12-18-2016 End: 06-11-2017 MMM MMM [facility] Work Phone: Payers Date Payer Category Payer Medicare [id number] 1945 Unknown [id number] 2.16.8 [id number] 1945 Unknown [id number] 2.16.8 [id number] 1945 Unknown [id number] 2.16.8 40.1.840613.3.579.2.651 1945 Unknown [id number] 2.16.8 40.1.754807.3.579.2.651 1945 Unknown [id number] 2.16.8 40.1.697218.3.579.2.651 1945 Unknown [id number] 2.16.8 40.1.191462.3.579.2.651 1944 Unknown [id number] 2.16.84 0.1.139424.3.579.2.651 1944 Unknown [id number] 2.16.84 0.1.715199.3.579.2.651 1945 Unknown [id number] 2.16.84 0.1.081341.3.579.2.651 1944 Unknown [id number] 2.16.84 0.1.231470.3.579.2.651 1944 Unknown [id number] 2.16.84 0.1.418818.3.579.2.651 1944 Unknown [id number] 2.16.84 0.1.490735.3.579.2.651 1944 Unknown [id number] 2.16.84 0.1.940032.3.579.2.651 1944 Unknown [id number] 2.16.84 0.1.869671.3.579.2.651 1945 Unknown [id number] 2.16.84 0.1.094616.3.579.2.651 1945 Unknown [id number] 2.16.84 0.1.262365.3.579.2.651 Medicare [id number] Clinical Note 07-30-2022 Note Date & Type [...] *1: This test was performed at: [address], [address] [place] [address] ([place]) Clinical Note 07-27-2022 Note Date & Type [...] *1: This test was performed at: [address], [address] [place] [address]) Clinical Note 07-27-2022 Note Date & Type [...] O1: Blood Culture (bacterial) fax results to [phone] Performing Locations *1: This test was performed at: [facility], [address] [place] [address], [address] [place] [address] ([place]) Summary Purpose Family History No Family History Records FoundNo Family History Records FoundNo Family History Records Found Advance Directives No Advanced Directives Records FoundNo Advanced Directives Records FoundNo Advanced Directives Records Found Additional Source Comments INFORMATION SOURCE (unrecogn ized section and content) DATE CREATED AUTHOR AUTHOR'S ORGANIZ ATION 07/30/2022 [facility] ([place]) DATE CREATED AUTHOR AUTHOR'S ORGANIZ ATION 08/09/2023 [facility] FOR RECORDS PERTAINING TO PATIENTS WHO ARE [...] BE BASED ON THE PRIMARY CLINICAL RECORDS. [facility]. provides no warranty or guarantee of the accuracy or completeness of information in this document.
--- NOTE | 2023-11-04 22:59 | NURSING ---
Patient called out multiple times requesting her inhaler. I let her know that the breathing treatments she is getting are in replacement of the inhaler that she normally taxes at home. She states that the inhaler is more of a safety blanket and she does not like that they locked it away. Patient feels anxious not being able to see the inhaler. Made patient aware that she is not to take that inhaler but if it makes her feel better having it on the table then she can do that. Patient satisfied with that answer and states that she will not use the inhaler.
[2023-11-05] VITALS (35 sets, daily range): BP systolic 106–165; BP diastolic 37–86; PULSE 70–94; RESP 10–20; TEMP 36.1–37.1; O2SAT 16–99; BMI 32.6
[2023-11-05] MEDS: Ipratropium/Albuterol Sulfate 3 ML AMPUL.NEB INHALATION ×4 (01:20→19:38)
[2023-11-05 02:13] LABS: Partial Thromboplast Time 56.5 Seconds (24.1-36.2)
[2023-11-05] MEDS: Albuterol 2.5 MG/3 ML VIAL.NEB. INHALATION ×3 (04:47→16:12)
[2023-11-05] MEDS: Metoprolol Tartrate 50 MG Tablet PO (05:36)
[2023-11-05] MEDS: Aspirin E.C. 81 MG Tablet PO (05:37)
[2023-11-05] MEDS: Levothyroxine 100 MCG Tablet PO (05:37)
--- NOTE | 2023-11-05 05:55 | EKG12_ITS ---
Test Reason : pre op Blood Pressure : / mmHG Vent. Rate : 086 BPM Atrial Rate : 086 BPM P-R Int : 174 ms QRS Dur : 096 ms QT Int : 380 ms P-R-T Axes : -04 032 067 degrees QTc Int : 454 ms Normal sinus rhythm Nonspecific ST and T wave abnormality Abnormal ECG When compared with ECG of 04-NOV-2023 11:20, MANUAL COMPARISON REQUIRED, DATA IS UNCONFIRMED Confirmed by HAILE DUQUE, NITIN ([id number]), graphics editor NIRAV DICKSON ([id number]) on 11/10/2023 6:47:49 AM Referred By: Confirmed By:ELIAS BE MD
--- NOTE | 2023-11-05 08:03 | PN.HOSP_ITS ---
Reason for Visit Reason for Visit: Diagnoses Non-ST elevation (NSTEMI) myocardial infarction (11/04/23) Acute on chronic systolic (congestive) heart failure (11/04/23) Subjective Subjective Feels well. Objective Data Objective Data Vital Signs: Vital Signs Temp Pulse Resp BP Pulse Ox O2 Del Method O2 Flow Rate 36.4 C L 70 17 131/63 H 95 Nasal Cannula 3 11/05/23 00:00 11/05/23 07:08 11/05/23 07:08 11/05/23 07:00 11/05/23 07:08 11/05/23 07:08 11/05/23 07:08 Oxygen Flow Rate (L/min) 3 Oxygen Delivery Method Nasal Cannula Weight: 78.4 kg Body Mass Index (BMI) 32.6 Intake & Output: Intake and Output for Last 24 Hours 11/03/23 11/04/23 11/05/23 23:59 23:59 23:59 Intake Total 116.35 / 219.35 124 / 124 Output Total 600 / 650 350 / 350 Balance -483.65 / -430.65 -226 / -226 Lab / Micro Data 11/05/23 08:13 11/05/23 08:13 Labs: Laboratory Results - last 24 hr 11/04/23 10:03: WBC 18.1 H, RBC 3.64 L, Hgb 10.7 L, Hct 34.2 L, MCV 94.0, MCH 29.4, MCHC 31.3 L, RDW Std Deviation 47.9 H, RDW Coeff of Kamar 14.0, Plt Count 416, MPV 10.7, Immature Gran % (Auto) 0.500, Neut % (Auto) 91.5 H, Lymph % (Auto) 5.3 L, [place] % (Auto) 2.2, Eos % (Auto) 0.2, Baso % (Auto) 0.3, Absolute Neuts (auto) 16.6 H, Absolute Lymphs (auto) 0.96, Nucleated RBC % 0, PT 13.8, INR 1.1, APTT 27.4, Sodium 136, Potassium 4.8, Chloride 106, Carbon Dioxide 23.0 , Anion Gap 7, BUN 27 H, Creatinine 1.73 H, Est GFR (MDRD) Af Amer 37 L, Est GFR (MDRD) Non-Af 30 L, BUN/Creatinine Ratio 15.6, Glucose 242 H, Calcium 8.8, Troponin I High Sens 1610 H*, B-Natriuretic Peptide 1120.0 H 11/04/23 13:15: Troponin I High Sens 4561 H* 11/04/23 13:35: Urine Color Straw, Urine Clarity Clear, Urine pH 6.5, Ur Specific [place] 1.010, Urine Protein 30 H, Urine Glucose (UA) Normal, Urine Ketones Negative, Urine Occult Blood 25 H, Urine Nitrite Negative, Urine Bilirubin Negative, Urine Urobilinogen Normal, Ur Leukocyte Esterase 500 H, Urine RBC 0 SEEN, Urine WBC 10-25 SEEN, Ur Squamous Epith Cells 5-10 SEEN, Urine Bacteria 2+, Urine Mucus 0 SEEN 11/04/23 16:07: Troponin I High Sens 85038 H* 11/04/23 16:27: POC Glucose 229 H 11/04/23 17:30: APTT 97.3 H* 11/04/23 20:52: POC Glucose 195 H 11/05/23 01:40: APTT 56.5 H Radiography Diagnostic Testing: Radiology Impression Chest X-Ray 11/04/23 11:05 IMPRESSION: Prior CABG. Findings suggestive of CHF with bibasilar scarring and/or atelectasis and small bilateral effusions. Electronically Signed: Brandyn Cheng MD at 11:35 EST Reading Location ID and State: [facility] / [place] , Service support , Physical Exam Const alert and no apparent distress HEENT head/scalp atraumatic and moist oral mucous membranes Resp normal respiratory effort, no retractions, no use of accessory muscles and clear to auscultation bilaterally Cardio regular rate, regular rhythm, S1 normal heart sound and S2 normal heart sound GI normal to inspection, nondistended, normoactive bowel sounds, soft to palpation, non-tender and non-distended Extremity normal to inspection Neuro Sensorium / Orientation: awake and alert Assessment & Plan Assessment/Plan (1) NSTEMI (non-ST elevated myocardial infarction): PLAN: Plan NSTEMI * Unclear type at this time * Continue with heparin and nitroglycerin drip * Check echocardiogram * Cycle troponins * Cardiology consultation. Plan for heart cath. * Continue with aspirin Acute heart failure with reduced ejection fraction * EF of 45% from 2D echocardiogram from February 19, 2023. Complicated by pulmonary artery hypertension. Patient had pulmonary artery systolic pressure 54 mmHg at that time. Echo shows an EF 40%. Moderate global hypokinesis. * Continue with IV furosemide and nitroglycerin drip. * Echo ordered. Chronic conditions * Diabetes mellitus type 2: Sliding scale insulin check an A1c. * Hypertension: Stable. * History of gout: Currently stable. Continue with allopurinol. VTE prophylaxis: Not indicated as patient is anticoagulated. CODE STATUS: Addressed with the patient. Patient unsure. Told patient we will leave her on full CODE STATUS but if she does change her mind to let us know. Charges/Coding Visit Charges Inpatient E&M: 49512 Subs Hosp L2
[2023-11-05 08:26] LABS: Absolute Lymphocyte Count 1.75 X10^3/uL (0.83-4.51); Absolute Neutrophil Count 9.2 X10^3/uL (2.0-7.7); Basophil# 0.04 X10^3/uL; Basophil% 0.3 % (0-1); Eosinophil# 0.14 X10^3/uL; Eosinophils% 1.2 % (0-5); Hematocrit 30.4 % (37-47); Hemoglobin 9.9 g/dL (12.0-15.0); Lymphocyte # 1.75 X10^3/ul (0.83-4.51); Lymphocyte % 15.1 % (19-41); Mean Corp Hgb Conc 32.6 g/dL (32-36); Mean Corpuscular Hgb 30.7 pg (27.0-32.0); Mean Corpuscular Volume 94.1 fL (81-99); Mean Platelet Vol. 9.9 fl (6.2-12.0); Monocyte# 0.42 X10^3/uL; Monocyte% 3.6 % (0-10); NRBC Flagged by Analyzer 0 % (0-5); Neutrophil # 9.18 X10^3/uL (2.7-7.7); Neutrophil % 79.5 % (47-70); Platelet Count 336 K/mm3 (150-450); RBC Distribution Width CV 13.7 % (11.6-14.6); Red Blood Count 3.23 M/mm3 (4.2-5.4); White Blood Count 11.6 K/mm3 (4.4-11.0)
[2023-11-05 08:57] LABS: ALB/GLOB Ratio 0.7 RATIO (0.9-2.4); AST(SGOT) 36 U/L (15-37); Alanine Aminotransfer ALT/SGPT 14 U/L (13-56); Albumin, Serum 2.7 g/dL (3.2-5.0); Alkaline Phosphatase 66 U/L (45-117); Anion Gap 5 (5-15); BUN 29 mg/dL (7-18); BUN/Creat Ratio 17.7 RATIO (10-20); Calcium,Total 8.6 mg/dL (8.5-10.1); Chloride 103 mmol/L (98-107); Creatinine, Serum 1.64 mg/dL (0.55-1.02); EST Glomerular Filtration Rate 32 mL/min (>60); Est Glom Filt Rate - Afr Amer 39 mL/min (>60); Estimated Creatinine Clearance 26.36 ml/min; Globulin 3.7 g/dL (2.2-4.2); Glucose 160 mg/dL (74-106); Potassium 4.1 mmol/L (3.5-5.1); Protein, Total 6.4 g/dL (6.4-8.2); Sodium Level 137 mmol/L (136-145); Thyroid Stim Hormone (TSH) 7.58 uIU/mL (0.358-3.74)
[2023-11-05 09:06] LABS: Hemoglobin A1c 6.8 % (3.8-5.6)
[2023-11-05] MEDS: Furosemide 40 MG/4 ML Vial IV ×2 (09:38→16:38)
[2023-11-05] MEDS: 0.9% Saline Lock 10 ML Syringe IV (09:38)
[2023-11-05 09:44] LABS: Partial Thromboplast Time 49.7 Seconds (24.1-36.2)
[2023-11-05 09:45] LABS: Bedside Glucose 174 mg/dL (74-106)
[2023-11-05] MEDS: HEPARIN/D5w 25,000 UNITS 25,000 UNITS/250 ML IV.SOLN. 11 UNITS CONT INF (10:01)
--- NOTE | 2023-11-05 10:02 | CASEMGMT ---
Tertiary facilities in-network with patient's insurance: Bryanna Harley, [facility], [place] [facility], , Parisa Daley, LC, [place], [facility], [place].
[2023-11-05] MEDS: Heparin Injection (Vial) 5,000 UNIT/ML VIAL IV ×2 (10:09→18:02)
[2023-11-05 11:24] LABS: Bedside Glucose 175 mg/dL (74-106)
--- NOTE | 2023-11-05 11:30 | CASEMGMT ---
WILL LAZO Assessment: WILL LAZO to room to meet with pt for initial transition planning/care coordination. WILL LAZO introduced self and role at [facility]. Pt voiced understanding. Pt sitting up in chair, alert, and answering questions appropriately. Care providers, pharmacy, and demographics verified. PCP: Dr Diaz Specialists: Dr. Wni (Cardio), Dr Hernández (GI), Dr Darden (cost control analyst from [facility] who pt sees in [place] location) Preferred Pharmacy: [facility] Insurance: [employer] [facility] Prescription benefit: Yes Living Will/HPOA: Pt states she does not think she has completed these and would like to complete w/SW. SW, Veronica, made aware. Pt made aware if SW unable to complete them while pt is @ [facility], that this can be completed w/SW as an out-pt. She voices understanding. LNOK: Son Gino, Daughter Amy Living arrangements: pt lives in a single story home with no steps to enter. Her daughter, REYNA, and 2 adult grandsons reside with her. Pt states she is independent with ADLs including household tasks. Pt states she completes her own laundry and prepares meals. Pt states her home is handicapped/wheelchair accessible due to a previous family member being w/c bound. This includes the bathroom/shower. Transportation: pt no longer drives. Family provides transportation. DME: grab bars, cane, walker, shower chair, lift chair, functioning glucometer w/supplies. SNF/HHC: Pt was at [facility] in 2021 and also [facility] after CABG. No hx of HHC. Pt denies need for HHC and no needs identified. Pt wishes to return home and states has no concerns with going home at time of discharge.??CM?to follow for any discharge planning/needs.? Pt voices no concerns/needs at this time.? Advised pt to ask for?CM?if any questions/concerns/needs arise.? Voices understanding. Plan: home w/family support Jay Jay FERNANDEZ RN, CM
--- NOTE | 2023-11-05 13:45 | CHAPLAIN ---
Type of Pastoral Visit _x__ Initial Visit ___ Follow-up Visit ___ On-call Visit ___ General Patient Visit ___ Spiritual Assessment ___ Family Conference ___ Bereavement ___ Rapid Response ___ Code Blue ___ Other (describe below) Pastoral Care Referral From _x__ Patient ___ Family ___ Nurse ___ Physician ___ [place] Porter ___ Poison Information Specialist ___ Other (describe below) Sacrament/Intervention _x__ Active listening ___ Anointing ___ Baptist ___ Bereavement ___ Communion ___ Maryan exploration ___ ___ Life review ___ Prayer ___ Reconciliation ___ Sacrament of Sick _x__ Supportive presence ___ Wedding ___ Other (describe below) Pastoral Comments patient speaks of her frustration but acknowledges later that she doesn't get worried or anxious about much anything ; pt has had heart cath before and understands why the procedure may be put off until tomorrow; pt has many family members that live at her house and that is a good situation to her she states; pt denied need for spiritual care but welcomed the visit
--- NOTE | 2023-11-05 14:06 | PN.CARD_ITS ---
Subjective Subjective Shortness of breath is improved significantly. No further chest pressure. Objective Data Vital Signs: Vital Signs Temp Pulse Resp BP Pulse Ox O2 Del Method O2 Flow Rate 97.0 F L 78 20 H 131/56 H 99 Nasal Cannula 2 11/05/23 12:00 11/05/23 12:00 11/05/23 12:00 11/05/23 12:00 11/05/23 12:00 11/05/23 12:00 11/05/23 12:00 Oxygen Flow Rate (L/min) 2 Oxygen Delivery Method Nasal Cannula Weight: 172 lb 13.478 oz Body Mass Index (BMI) 32.6 Intake & Output: Intake and Output for Last 24 Hours 11/03/23 11/04/23 11/05/23 23:59 23:59 23:59 Intake Total 116.35 / 219.35 276.5 / 276.5 Output Total 600 / 650 1100 / 1100 Balance -483.65 / -430.65 -823.5 / -823.5 Lab / Micro Data 11/05/23 08:13 11/05/23 08:13 Labs: Laboratory Results - last 24 hr 11/04/23 16:07: Troponin I High Sens 52338 H* 11/04/23 16:27: POC Glucose 229 H 11/04/23 17:30: APTT 97.3 H* 11/04/23 20:52: POC Glucose 195 H 11/05/23 01:40: APTT 56.5 H 11/05/23 05:41: POC Glucose 174 H 11/05/23 08:13: WBC 11.6 H, RBC 3.23 L, Hgb 9.9 L, Hct 30.4 L, MCV 94.1, MCH 30.7, MCHC 32.6, RDW Std Deviation 47.0 H, RDW Coeff of Kamar 13.7, Plt Count 336, MPV 9.9, Immature Gran % (Auto) 0.300, Neut % (Auto) 79.5 H, Lymph % (Auto) 15.1 L, [place] % (Auto) 3.6, Eos % (Auto) 1.2, Baso % (Auto) 0.3, Absolute Neuts (auto) 9.2 H, Absolute Lymphs (auto) 1.75, Nucleated RBC % 0, APTT 49.7 H, Sodium 137, Potassium 4.1, Chloride 103, Carbon Dioxide 29.0, Anion Gap 5, BUN 29 H, Creat inine 1.64 H, Estim Creat Clear Calc 26.36, Est GFR (MDRD) Af Amer 39 L, Est GFR (MDRD) Non-Af 32 L, BUN/Creatinine Ratio 17.7, Glucose 160 H, Hemoglobin A1c 6.8 H, Calcium 8.6, Total Bilirubin 0.70, AST 36, ALT 14, Alkaline Phosphatase 66, Total Protein 6.4, Albumin 2.7 L, Globulin 3.7, Albumin/Globulin Ratio 0.7 L, TSH 7.58 H 11/05/23 11:04: POC Glucose 175 H Cardiology Labs/Tests 11/04/23 17:30: APTT 97.3 H* 11/05/23 01:40: APTT 56.5 H 11/05/23 08:13: WBC 11.6 H, RBC 3.23 L, Hgb 9.9 L, Hct 30.4 L, MCV 94.1, MCH 3 0.7, MCHC 32.6, Plt Count 336, MPV 9.9, Immature Gran % (Auto) 0.300, Neut % (Auto) 79.5 H, Lymph % (Auto) 15.1 L, [place] % (Auto) 3.6, Eos % (Auto) 1.2, Baso % (Auto) 0.3, Absolute Neuts (auto) 9.2 H, Nucleated RBC % 0, APTT 49.7 H, Sodium 137, Potassium 4.1, Chloride 103, Carbon Dioxide 29.0, Anion Gap 5, BUN 29 H, Creatinine 1.64 H, Est GFR (MDRD) Af Amer 39 L, Est GFR (MDRD) Non-Af 32 L , BUN/Creatinine Ratio 17.7, Glucose 160 H, Hemoglobin A1c 6.8 H, Calcium 8.6, Total Bilirubin 0.70 Rhythm: EKG: ECHO: Stress Test: Cardiac Cath: PCI: CT Surgery: Holter monitor: EPS: PPM: CXR: Chest CT Scan: Radiography Diagnostic Testing: Radiology Impression Echocardiogram 11/04/23 12:08 Interpretation Summary The estimated ejection fraction is 40 %. Unable to assess diastolic dysfunction. There is moderate global hypokinesis of the left ventricle. The left atrium is mildly enlarged. Mild-Moderate (1-2+) mitral valve insufficiency. Ordering Physician: Alfonso Quiroz Performed By: Alphonso Orozco RCS Physical Exam Const alert and oriented x3 HEENT normocephalic Eyes no scleral icterus Resp Resp Narrative: Crackles and decreased breath sounds in both bases. Cardio regular rate Extremity Extremity Narrative: 1-2+ bilateral pitting edema Psych mental status grossly normal Assessment & Plan Assessment/Plan (1) Congestive heart failure: QUALIFIERS: Heart failure type: systolic Heart failure chronicity: acute on chronic Qualified Code(s): I50.23 - Acute on chronic systolic (congestive) heart failure PLAN: Continue current medications. Likely cath tomorrow. (2) NSTEMI (non-ST elevated myocardial infarction): PLAN: Continue current medications. Agree with IV heparin. Likely cath tomorrow. patient is not on VIDA inhibitors due to CKD. Charges/Coding Visit Charges Inpatient E&M: 07929 Subs Hosp L2
[2023-11-05] MEDS: Insulin Lispro 100 UNIT/ML INSULN.PEN SC (16:33)
[2023-11-05] MEDS: Ferrous Sulfate 325 MG Tablet PO (16:38)
[2023-11-05 16:47] LABS: Partial Thromboplast Time 50.3 Seconds (24.1-36.2)
[2023-11-05 17:17] LABS: Bedside Glucose 210 mg/dL (74-106)
[2023-11-05 21:27] LABS: Bedside Glucose 188 mg/dL (74-106)
[2023-11-06] VITALS (24 sets, daily range): BP systolic 115–177; BP diastolic 45–62; PULSE 69–95; RESP 13–20; TEMP 36.6–36.8; O2SAT 87–100
[2023-11-06] MEDS: Ipratropium/Albuterol Sulfate 3 ML AMPUL.NEB INHALATION ×4 (00:19→20:07)
[2023-11-06 00:34] LABS: Partial Thromboplast Time 76.9 Seconds (24.1-36.2)
[2023-11-06] MEDS: Metoprolol Tartrate 50 MG Tablet PO (06:44)
[2023-11-06] MEDS: Aspirin E.C. 81 MG Tablet PO (06:44)
[2023-11-06] MEDS: Levothyroxine 100 MCG Tablet PO (06:44)
[2023-11-06] MEDS: predniSONE 10 MG Tablet PO (06:56)
[2023-11-06] MEDS: HEPARIN/D5w 25,000 UNITS 25,000 UNITS/250 ML IV.SOLN. 12 UNITS CONT INF (06:56)
[2023-11-06 07:07] LABS: Bedside Glucose 193 mg/dL (74-106)
[2023-11-06 07:26] LABS: Anion Gap 7 (5-15); BUN 34 mg/dL (7-18); BUN/Creat Ratio 18.8 RATIO (10-20); Calcium,Total 9.1 mg/dL (8.5-10.1); Chloride 98 mmol/L (98-107); Creatinine, Serum 1.81 mg/dL (0.55-1.02); EST Glomerular Filtration Rate 29 mL/min (>60); Est Glom Filt Rate - Afr Amer 35 mL/min (>60); Estimated Creatinine Clearance 23.89 ml/min; Glucose 189 mg/dL (74-106); Potassium 4.2 mmol/L (3.5-5.1); Sodium Level 133 mmol/L (136-145)
[2023-11-06] MEDS: Nitroglycerin Infusion 250 ML 9 MG IV (08:43)
--- NOTE | 2023-11-06 08:45 | PCM.PN.HOSP ---
Reason for Visit Reason for Visit: Diagnoses Non-ST elevation (NSTEMI) myocardial infarction (11/04/23) Acute on chronic systolic (congestive) heart failure (11/04/23) Subjective Subjective Patient had heart cath today. Patient was groggy wakes up briefly and quickly dozes off so unable to get history from her today. Objective Data Objective Data Vital Signs: Vital Signs Temp Pulse Resp BP Pulse Ox O2 Del Method O2 Flow Rate 36.6 C 76 19 H 134/62 H 96 Nasal Cannula 2 11/05/23 18:44 11/06/23 08:34 11/06/23 08:34 11/06/23 00:00 11/06/23 08:34 11/06/23 08:34 11/06/23 08:34 Oxygen Flow Rate (L/min) 2 Oxygen Delivery Method Nasal Cannula Weight: 78.4 kg Body Mass Index (BMI) 32.6 Intake & Output: Intake and Output for Last 24 Hours 11/04/23 11/05/23 11/06/23 23:59 23:59 23:59 Intake Total 116.35 / 219.35 646.22 / 655.22 173.4 / 173.4 Output Total 600 / 650 1425 / 1425 400 / 400 Balance -483.65 / -430.65 -778.78 / -769.78 -226.6 / -226.6 Lab / Micro Data 11/05/23 08:13 11/06/23 06:25 Labs: Laboratory Results - last 24 hr 11/05/23 05:41: POC Glucose 174 H 11/05/23 08:13: APTT 49.7 H, Sodium 137, Potassium 4.1, Chloride 103, Carbon Dioxide 29.0, Anion Gap 5, BUN 29 H, Creatinine 1.64 H, Estim Creat Clear Calc 26.36, Est GFR (MDRD) Af Amer 39 L, Est GFR (MDRD) Non-Af 32 L, BUN/Creatinine Ratio 17.7, Glucose 160 H, Hemoglobin A1c 6.8 H, Calcium 8.6, Total Bilirubin 0.70, AST 36, ALT 14, Alkaline Phosphatase 66, Total Protein 6.4, Albumin 2.7 L, Globulin 3.7, Albumin/Globulin Ratio 0.7 L, TSH 7.58 H 11/05/23 11:04: POC Glucose 175 H 11/05/23 16:05: APTT 50.3 H 11/05/23 16:32: POC Glucose 210 H 11/05/23 21:02: POC Glucose 188 H 11/06/23 00:02: APTT 76.9 H 11/06/23 06:25: APTT 74.0 H, Sodium 133 L, Potassium 4.2, Chloride 98, Carbon Dioxide 28.0, Anion Gap 7, BUN 34 H, Creatinine 1.81 H, Estim Creat Clear Calc 23.89, Est GFR (MDRD) Af Amer 35 L, Est GFR (MDRD) Non-Af 29 L, BUN/Creatinine Ratio 18.8, Glucose 189 H, Calcium 9.1 11/06/23 06:48: POC Glucose 193 H Radiography Diagnostic Testing: Radiology Impression Echocardiogram 11/04/23 12:08 Interpretation Summary The estimated ejection fraction is 40 %. Unable to assess diastolic dysfunction. There is moderate global hypokinesis of the left ventricle. The left atrium is mildly enlarged. Mild-Moderate (1-2+) mitral valve insufficiency. Ordering Physician: Alfonso Quiroz Performed By: Alphonso Orozco RCS Physical Exam Const Constitutional Narrative: Sleeping. Awoke to voice and noxious stimuli. Motors few words and falls back asleep. Nontoxic. No respiratory distress. Neck Neck Narrative: Positive JVD Resp Resp Narrative: Limited anteriorly but otherwise clear Cardio regular rate, regular rhythm, S1 normal heart sound and S2 normal heart sound GI normal to inspection, nondistended, normoactive bowel sounds, soft to palpation, non-tender and non-distended Extremity General Extremity: edema bilateral lower extremity Details: mild Assessment & Plan Assessment/Plan (1) NSTEMI (non-ST elevated myocardial infarction): PLAN: Plan NSTEMI Type II demand ischemia from CHF exacerbation. Heart cath showed nonobstructive coronary disease. Patient does have a chronically occluded LAD that has been bypassed. Acute heart failure with reduced ejection fraction EF of 45% from 2D echocardiogram from February 19, 2023. Complicated by pulmonary artery hypertension. Patient had pulmonary artery systolic pressure 54 mmHg at that time. Echo shows an EF 40%. Moderate global hypokinesis. Continue with IV furosemide Chronic conditions Diabetes mellitus type 2: Sliding scale insulin check an A1c. Hypertension: Stable. History of gout: Currently stable. Continue with allopurinol. VTE prophylaxis: Not indicated as patient is anticoagulated. CODE STATUS: Addressed with the patient. Patient unsure. Told patient we will leave her on full CODE STATUS but if she does change her mind to let us know. Charges/Coding Visit Charges Inpatient E&M: 63387 Subs Hosp L2
--- NOTE | 2023-11-06 10:25 | CL.D_ITS ---
Patient Name: HILLARY WELLS Study Date: 11/06/2023 Performing: Lasha Win MD Ht: 61 inches 154.94 cm : 1945 Wt: 172.84 lbs 78.4 kg Age: 78 Gender: female BSA: 1.78 PROCEDURE(S) PERFORMED [id number])LHC/COR/CABG CLINICAL PROFILE AND INDICATIONS Indications: New Onset Angina <= 2 months Heart Failure: NYHA Class: 3 Stress/Imaging Stress/Image Study Performed: No CONCLUSIONS Coronary artery disease with previously bypass grafts noted to be occluded and a HEART to the LAD which is patent, [place] right coronary artery which is patent with moderate disease, and a saphenous vein graft to a small diagonal vessel with severe distal disease. Globally reduced left ventricular ejection fraction. RECOMMENDATIONS Maximization and optimization of medical therapy. DESCRIPTION OF PROCEDURE The patient arrived to the procedure lab. The risks and benefits of the procedure as well as a full description of our services here and current unavailability of surgical backup were fully explained to the patient and/or their significant other prior to the catheterization. The Timeout was completed, verifying the correct patient and procedure. The patient's procedural site was prepped and draped in the usual fashion. Local anesthetic was given subcutaneously to left radial region with Lidocaine 2%. Using a modified Seldinger technique, Left internal mammary artery graft to the LAD selective angiography was performed in multiple views using a 5 Fr. IM catheter. Left Coronary Artery selective angiography was performed in multiple views using a 5 Fr. JL4 catheter. Right Coronary Artery selective angiography was then performed in multiple views using a 5 Fr. JR 4 catheter. Saphenous Vein graft to the DIAG 1 selective angiography was performed in multiple views using a 5 Fr. JR 4 catheter. Saphenous Vein graft to the DIAG 1 selective angiography was performed in multiple views using a 5 Fr. AL 1 catheter.The arterial sheath was pulled and a TR Band was applied for hemostasis CORONARY ANGIOGRAPHY DOMINANCE: Right Dominant LEFT HEART ASSESSMENT Left Ventricular Ejection Fraction: by Echo 35 % Global Hypokinesis - Moderate Depressed Left Ventricular systolic function LEFT MAIN: Mild calcification, Mild luminal irregularities less than 30% LEFT ANTERIOR DESCENDING ARTERY: PROX LAD: is occluded CIRCUMFLEX ARTERY: Mild luminal irregularities less than 30% RIGHT CORONARY ARTERY: Dominant vessel previously bypassed with mild luminal irregularities in the proximal and mid segment and moderate disease noted at the bypass site with mild tenting noted. Mild diffuse distal disease present. GRAFTS: HEART graft to the Mid LAD is patent Saphenous Vein graft to the 1st Diagonal This vessel is patent and previously stented with moderate diffuse disease noted in the body of the stent and in the immediate post anastomotic site of the diagonal has a high-grade stenotic lesion subtending a small vessel. COMPLICATIONS No Complications PROCEDURE MEDICATIONS Versed 1 mg IV Fentanyl 50 mcg IV Heparin given IA 11/06/2023 09:40:06 09:21:12 Verapamil 2.5mg, Ntg 100mcgs, 3000 units of Heparin given IA 11/06/2023 09:40:06 SUMMARY OF HEMODYNAMIC DATA Time AIR REST ECG 09:19:58 AO 142/51 (89) SA 09:49:26 10:21:15 Signed By Lasha Win MD On 11/06/2023 10:25:05 Lasha Win MD
[2023-11-06] MEDS: Ferrous Sulfate 325 MG Tablet PO ×2 (10:51→17:27)
[2023-11-06] MEDS: Cholecalciferol (VIT D3) 25 MCG TABLET (1,000 UNITS) PO (10:51)
[2023-11-06] MEDS: Montelukast 10 MG Tablet PO (10:51)
[2023-11-06] MEDS: Spironolactone 25 MG Tablet PO (10:51)
[2023-11-06] MEDS: Loratadine 10 MG Tablet PO (10:51)
[2023-11-06] MEDS: Allopurinol 100 MG Tablet PO (10:52)
[2023-11-06] MEDS: Furosemide 40 MG/4 ML Vial IV ×2 (10:52→17:26)
[2023-11-06] MEDS: Albuterol 2.5 MG/3 ML VIAL.NEB. INHALATION ×2 (10:57→17:13)
[2023-11-06] MEDS: Insulin Lispro 100 UNIT/ML INSULN.PEN SC ×2 (10:58→17:26)
[2023-11-06 11:27] LABS: Bedside Glucose 227 mg/dL (74-106)
--- NOTE | 2023-11-06 13:20 | PN.CARD_ITS ---
Subjective Subjective Patient underwent coronary angiography this morning. Tolerated it well. Reviewed films. Objective Data Vital Signs: Vital Signs Temp Pulse Resp BP Pulse Ox O2 Del Method O2 Flow Rate 97.8 F 73 14 121/45 H 96 Nasal Cannula 1 11/06/23 08:50 11/06/23 12:30 11/06/23 12:30 11/06/23 12:30 11/06/23 12:30 11/06/23 12:30 11/06/23 12:30 Oxygen Flow Rate (L/min) 1 Oxygen Delivery Method Nasal Cannula Weight: 172 lb 13.478 oz Body Mass Index (BMI) 32.6 Intake & Output: Intake and Output for Last 24 Hours 11/04/23 11/05/23 11/06/23 23:59 23:59 23:59 Intake Total 116.35 / 219.35 646.22 / 655.22 285.60 / 285.60 Output Total 600 / 650 1425 / 1425 900 / 900 Balance -483.65 / -430.65 -778.78 / -769.78 -614.40 / -614.40 Lab / Micro Data 11/05/23 08:13 11/06/23 06:25 Labs: Laboratory Results - last 24 hr 11/05/23 16:05: APTT 50.3 H 11/05/23 16:32: POC Glucose 210 H 11/05/23 21:02: POC Glucose 188 H 11/06/23 00:02: APTT 76.9 H 11/06/23 06:25: APTT 74.0 H, Sodium 133 L, Potassium 4.2, Chloride 98, Carbon Dioxide 28.0, Anion Gap 7, BUN 34 H, Creatinine 1.81 H, Estim Creat Clear Calc 23.89, Est GFR (MDRD) Af Amer 35 L, Est GFR (MDRD) Non-Af 29 L, BUN/Creatinine Ratio 18.8, Glucose 189 H, Calcium 9.1 11/06/23 06:48: POC Glucose 193 H 11/06/23 10:57: POC Glucose 227 H Cardiology Labs/Tests 11/05/23 16:05: APTT 50.3 H 11/06/23 00:02: APTT 76.9 H 11/06/23 06:25: APTT 74.0 H, Sodium 133 L, Potassium 4.2, Chloride 98, Carbon Dioxide 28.0, Anion Gap 7, BUN 34 H, Creatinine 1.81 H, Est GFR (MDRD) Af Amer 35 L, Est GFR (MDRD) Non-Af 29 L, BUN/Creatinine Ratio 18.8, Glucose 189 H, Calcium 9.1 Rhythm: EKG: ECHO: Stress Test: Cardiac Cath: PCI: CT Surgery: Holter monitor: EPS: PPM: CXR: Chest CT Scan: Physical Exam Const alert and oriented x3 HEENT normocephalic Eyes no scleral icterus Assessment & Plan Assessment/Plan (1) Congestive heart failure: QUALIFIERS: Heart failure type: systolic Heart failure [facility] [place]: acute on chronic Qualified Code(s): I50.23 - Acute on chronic systolic (congestive) heart failure PLAN: Continue current medications. Patient can be switched to Lasix p.o. starting from tomorrow. (2) NSTEMI (non-ST elevated myocardial infarction): PLAN: Continue current medications. Angiogram done today. Recommend medical therapy. Reasonable to add Plavix 75 mg p.o. daily. Charges/Coding Visit Charges Inpatient E&M: 83921 [facility] Hosp L1
[2023-11-06 17:21] LABS: Bedside Glucose 239 mg/dL (74-106)
[2023-11-06 21:29] LABS: Bedside Glucose 209 mg/dL (74-106)
[2023-11-07] VITALS (7 sets, daily range): BP systolic 119–150; BP diastolic 53–62; PULSE 78–88; RESP 16–20; TEMP 36.1–36.7; O2SAT 95–100; BMI 31.8
[2023-11-07] MEDS: Levothyroxine 100 MCG Tablet PO (04:46)
[2023-11-07] MEDS: Ipratropium/Albuterol Sulfate 3 ML AMPUL.NEB INHALATION ×2 (07:24→13:04)
[2023-11-07 07:37] LABS: Anion Gap 7 (5-15); BUN 46 mg/dL (7-18); BUN/Creat Ratio 25.1 RATIO (10-20); Calcium,Total 9.2 mg/dL (8.5-10.1); Chloride 95 mmol/L (98-107); Creatinine, Serum 1.83 mg/dL (0.55-1.02); EST Glomerular Filtration Rate 28 mL/min (>60); Est Glom Filt Rate - Afr Amer 34 mL/min (>60); Estimated Creatinine Clearance 23.34 ml/min; Glucose 130 mg/dL (74-106); Potassium 3.8 mmol/L (3.5-5.1); Sodium Level 132 mmol/L (136-145)
--- NOTE | 2023-11-07 07:56 | PN.HOSP_ITS ---
Reason for Visit Reason for Visit: Diagnoses Non-ST elevation (NSTEMI) myocardial infarction (11/04/23) Acute on chronic systolic (congestive) heart failure (11/04/23) Subjective Subjective Complaining of shoulder aching. Objective Data Objective Data Vital Signs: Vital Signs Temp Pulse Resp BP Pulse Ox O2 Del Method O2 Flow Rate 36.4 C L 80 16 150/62 H 100 Nasal Cannula 1 11/07/23 03:00 11/07/23 03:00 11/07/23 03:00 11/07/23 03:00 11/07/23 03:00 11/07/23 03:00 11/07/23 03:00 Oxygen Flow Rate (L/min) 1 Oxygen Delivery Method Nasal Cannula Weight: 76.6 kg Body Mass Index (BMI) 31.8 Intake & Output: Intake and Output for Last 24 Hours 11/05/23 11/06/23 11/07/23 23:59 23:59 23:59 Intake Total 646.22 / 655.22 405.60 / 405.60 Output Total 1425 / 1425 1625 / 2075 950 / 950 Balance -778.78 / -769.78 -1219.40 / -1669.40 -950 / -950 Lab / Micro Data 11/05/23 08:13 11/07/23 06:30 Labs: Laboratory Results - last 24 hr 11/06/23 10:57: POC Glucose 227 H 11/06/23 17:03: POC Glucose 239 H 11/06/23 21:10: POC Glucose 209 H 11/07/23 06:30: Sodium 132 L, Potassium 3.8, Chloride 95 L, Carbon Dioxide 30.0, Anion Gap 7, BUN 46 H, Creatinine 1.83 H, Estim Creat Clear Calc 23.34, Est GFR (MDRD) Af Amer 34 L, Est GFR (MDRD) Non-Af 28 L, BUN/Creatinine Ratio 25.1 H, Glucose 130 H, Calcium 9.2 Physical Exam Const alert and no apparent distress HEENT head/scalp atraumatic and moist oral mucous membranes Resp normal respiratory effort, no retractions, no use of accessory muscles and clear to auscultation bilaterally Cardio regular rate, regular rhythm, S1 normal heart sound and S2 normal heart sound GI normal to inspection, nondistended, normoactive bowel sounds, soft to palpation, non-tender, non-distended and hepatosplenomegaly Neuro Sensorium / Orientation: awake and alert Assessment & Plan Assessment/Plan (1) NSTEMI (non-ST elevated myocardial infarction): PLAN: Plan NSTEMI * Type II demand ischemia from CHF exacerbation. * Heart cath showed nonobstructive coronary disease. Patient does have a chronically occluded LAD that has been bypassed. Acute heart failure with reduced ejection fraction * EF of 45% from 2D echocardiogram from February 19, 2023. Complicated by pulmonary artery hypertension. Patient had pulmonary artery systolic pressure 54 mmHg at that time. Echo shows an EF 40%. Moderate global hypokinesis. * DC IV furosmeide as Creatinine has crept upwards from baseline. Change to PO. Continue spironolactone. * No VIDA-/ARB given CKD. Aching in UE * concern for PMR * no headache * check ESR and CRP. If positive, then would start prednisone 15 mg/d and pt may need referral to a refinery operator helper. Chronic conditions * Diabetes mellitus type 2: Sliding scale insulin check an A1c. * Hypertension: Stable. * History of gout: Currently stable. Continue with allopurinol. VTE prophylaxis: LMWH CODE STATUS: Addressed with the patient. Patient unsure. Told patient we will leave her on full CODE STATUS but if she does change her mind to let us know. Charges/Coding Visit Charges Inpatient E&M: 16627 Subs Hosp L2
[2023-11-07 08:52] LABS: Bedside Glucose 134 mg/dL (74-106)
[2023-11-07] MEDS: Albuterol 2.5 MG/3 ML VIAL.NEB. INHALATION (09:38)
[2023-11-07] MEDS: Allopurinol 100 MG Tablet PO (10:01)
[2023-11-07] MEDS: Spironolactone 25 MG Tablet PO (10:01)
[2023-11-07] MEDS: Aspirin E.C. 81 MG Tablet PO (10:01)
[2023-11-07] MEDS: Metoprolol Tartrate 50 MG Tablet PO (10:02)
[2023-11-07] MEDS: Loratadine 10 MG Tablet PO (10:02)
[2023-11-07] MEDS: Montelukast 10 MG Tablet PO (10:02)
[2023-11-07] MEDS: Insulin Lispro 100 UNIT/ML INSULN.PEN SC (12:12)
[2023-11-07] MEDS: Ferrous Sulfate 325 MG Tablet PO (12:12)
[2023-11-07 12:38] LABS: Bedside Glucose 212 mg/dL (74-106)
[2023-11-07] MEDS: Furosemide 40 MG Tablet PO (12:44)
[2023-11-07 13:05] LABS: Erythrocyte Sedimentation Rate 50 mm/hr (0-30)
--- NOTE | 2023-11-07 13:54 | PCM.DC.SUM ---
Providers Date of Admission: 11/04/23 Primary Care Physician: Dr. Tabatha Diaz MD Consultations 11/04/23 12:40 Consult: Cardiology Routine Consulting Provider: Levy Graham Reason for Consult: NSTEMI EMERGENT Consult: No MD Notified: Yes Date Notified: 11/04/23 Time Notified: 12:08 Method of Notification: ED Physician Initiated Reason For Visit: NSTEMI Diagnosis Discharge Diagnosis (1) NSTEMI (non-ST elevated myocardial infarction): Status: Acute Code(s): I21.4 - Non-ST elevation (NSTEMI) myocardial infarction Plan NSTEMI Type II demand ischemia from CHF exacerbation. Heart cath showed nonobstructive coronary disease. Patient does have a chronically occluded LAD that has been bypassed. Acute heart failure with reduced ejection fraction EF of 45% from 2D echocardiogram from February 19, 2023. Complicated by pulmonary artery hypertension. Patient had pulmonary artery systolic pressure 54 mmHg at that time. Echo shows an EF 40%. Moderate global hypokinesis. DC IV furosmeide as Creatinine has crept upwards from baseline. Change to PO. Continue spironolactone. No WILL-/ARB given CKD. Suspected polymyalgia rheumatica no headache nor jaw claudication to be concerned about giant cell arteritis ESR 50. CRP 72.9. Start prednisone 15 mg/day. This will need to be reassessed in 4 to 6 weeks to see if improvements and then seeing if her steroids can be tapered down. May be beneficial for the patient to see a construction project administrator but will defer to primary care. Chronic conditions Diabetes mellitus type 2: Sliding scale insulin check an A1c. Hypertension: Stable. History of gout: Currently stable. Continue with allopurinol. VTE prophylaxis: LMWH CODE STATUS: Addressed with the patient. Patient unsure. Told patient we will leave her on full CODE STATUS but if she does change her mind to let us know. Discharge home. Medications at Discharge Home Medications montelukast 10 mg tablet 10 mg PO DAILY ASTHMA 12/17/13 aspirin 81 mg tablet,delayed release 81 mg PO QDAY HEART [facility] 11/19/17 cetirizine 10 mg tablet (Zyrtec) 10 mg PO QDAY allergies 02/15/20 allopurinol 100 mg tablet 100 mg PO DAILY GOUT 11/22/21 spironolactone 25 mg tablet 25 mg PO DAILY HEART 08/28/22 ipratropium 20 mcg-albuterol 100 mcg/actuation mist for inhalation (Combivent Respimat) 1 puff inhalation Q6H BREATHING 09/20/22 ferrous sulfate 325 mg (65 mg iron) tablet 325 mg PO BID SUPPLEMENT 10/04/22 furosemide 40 mg tablet (Lasix) 40 mg PO DAILY diuretic 12/25/22 cholecalciferol (vitamin D3) 25 mcg (1,000 unit) tablet 25 mcg PO SUTUTHSA vitamin 06/05/23 glipizide 10 mg tablet 2.5 mg PO DAILY DM 06/05/23 levothyroxine 100 mcg tablet 100 mcg PO DAILY THYROID 06/05/23 metoprolol tartrate 50 mg tablet 50 mg PO DAILY blood pressure 06/05/23 omeprazole 20 mg capsule,delayed release 20 mg PO DAILY reflux 11/04/23 vitamins A,C,L-kmwl-dzitkk 2,148 mcg-113 mg-45 mg-17.4 mg tablet (Eye Multivitamin) 1 tab PO BID vitamin 11/04/23 prednisone 5 mg tablet 15 mg (3 x 5 mg) PO DAILY #90 tabs 11/07/23 Hospital Course Operations None Procedures 2-D Echocardiogram and Cardiac catheterization Summary of Care Provided Minutes Spent on Discharge: 45 Hospital Course: Patient presents with shortness of breath. Patient found to have a non-ST ovation myocardial infarction with troponins that went up to 11,000. Patient underwent cardiac catheterization that showed nonobstructive coronary disease. Patient did have obstruction of her LAD but that is previously been bypassed and the bypass graft was intact. Patient was in acute CHF exacerbation and was diuresed and did well. Patient's creatinine has crept up so patient will be resumed on her daily dosing of furosemide and spironolactone. Patient advised to check her weight daily. She states that she does not few times per week and does keep a record of that. Did advise her to do so but on a daily basis. Patient incidentally complained of bilateral shoulder girdle achiness. She states that she has been on prednisone in the past and that has actually helped her. She has never been diagnosed with polymyalgia rheumatica. I did order an ESR and CRP that were both elevated. Patient will be started on prednisone 15 mg daily. Patient has no headache nor jaw claudication to suggest giant cell arteritis therefore not a higher dose of prednisone at this time. Patient will need to be reevaluated in 4 to 6 weeks for improvement and to see if she has improvement of her ESR and CRP. May be beneficial for her to see a construction project administrator as outpatient. Weight / BMI Weight Weight: 76.6 kg Body Mass Index (BMI) 31.8 ABG / Lab / Microbiology Data 11/05/23 08:13 11/07/23 06:30 Laboratory: Laboratory Results - last 24 hr 11/06/23 17:03: POC Glucose 239 H 11/06/23 21:10: POC Glucose 209 H 11/07/23 06:30: ESR 50 H, Sodium 132 L, Potassium 3.8, Chloride 95 L, Carbon Dioxide 30.0, Anion Gap 7, BUN 46 H, Creatinine 1.83 H, Estim Creat Clear Calc 23.34, Est GFR (MDRD) Af Amer 34 L, Est GFR (MDRD) Non-Af 28 L, BUN/Creatinine Ratio 25.1 H, Glucose 130 H, Calcium 9.2, C-React Prot Ext Range 72.90 H 11/07/23 08:19: POC Glucose 134 H 11/07/23 12:09: POC Glucose 212 H D/C Instructions Discharge Diet: - (1.5 L of fluid per day) Meaningful Use Info Meaningful Use Diagnoses (Choose all that apply): AMI and CHF AMI/Post PCI/Angioplasty Aspirin given w/in 24hrs of arrival?: Yes ASA at discharge?: Yes Statins at discharge?: No Reason statins not ordered:: Allergy Will/ARB at discharge?: No Reason Will/ARB not ordered:: Worsening renal dysfunctn Beta Bernie at discharge?: Yes Done w/ Acute DC measure.: Yes Documented LVEF (%): 40 CHF WILL/ARB ordered at discharge?: No Reason WILL/ARB not ordered?: Worsening renal disease Documented LVEF (%): 40 Discharge Plan Admission Admit Date/Time: 11/04/23 12:03 Primary Reason for Your Visit: Congestive heart failure Attending Provider: Alfonso Quiroz Primary Care Provider: Tabatha Diaz Consulting Providers: Levy Graham Instructions Patient Instructions: Heart Failure Flare Up Signs, Heart Failure: Tracking Your Weight, Heart Failure: Being Active, Heart Failure: Know Your Baselines Additional Instructions / Restrictions: You had congestive heart failure exacerbation, fluid on your lungs. You did well with the use of IV furosemide (Lasix). Additionally you had myocardial infarction due to strain from the acute heart failure. Your vessels look good your bypass graft look good as well. Therefore he did not require any stents. At home, weigh yourself daily and keep a record of that. Notify your physician if you put on more than 2 pounds in 1 day or 3 pounds in 1 week. You complained to me today about just achiness in your shoulders which you had some time and that it got better with prednisone. You had lab work (elevated ESR and CRP) that may indicate a condition called polymyalgia rheumatica (also known as PMR). The treatment for that is a steroids. You will be on 15 mg of prednisone for the next several weeks. Please follow-up with your primary care doctor to see how you are progressing during this time to see if that medication can be tapered down. May be beneficial to see a construction project administrator. Your primary care physician can help facilitate that if he feels that is indicated. Discharge Orders/Prescriptions Prescriptions: New prednisone 5 mg tablet 15 mg PO DAILY Qty: 90 0RF Continued aspirin 81 mg tablet,delayed release (DR/EC) 81 mg PO QDAY cetirizine [Zyrtec] 10 mg tablet 10 mg PO QDAY glipizide 10 mg tablet 2.5 mg PO DAILY Patient Comments: pt only takes when BS over 200 allopurinol 100 mg tablet 100 mg PO DAILY levothyroxine 100 mcg tablet 100 mcg PO DAILY Patient Comments: TAKE 1 TABLET BY MOUTH ONCE DAILY furosemide [Lasix] 40 mg tablet 40 mg PO DAILY Patient Comments: PT STATES SHE ONLY TAKES 1/4 OF A PILL WHEN LEGS ARE SWOLLEN metoprolol tartrate 50 mg tablet 50 mg PO DAILY cholecalciferol (vitamin D3) 25 mcg (1,000 unit) tablet 25 mcg PO SUTUTHSA spironolactone 25 mg tablet 25 mg PO DAILY ferrous sulfate 325 mg (65 mg iron) tablet 325 mg PO BID Patient Comments: PT RAN OUT OF MED AND HASNT GOTTEN REFILLED YET montelukast 10 MG tablet 10 mg PO DAILY Combivent Respimat 20-100 mcg/actuation mist 1 puff INHALATION Q6H Eye Multivitamin 2,148 mcg-113 mg-45 mg-17.4mg tablet 1 tab PO BID Rx Instructions: administer with AM and PM meals omeprazole 20 mg capsule,delayed release(DR/EC) 20 mg PO DAILY Discontinued ezetimibe [Zetia] 10 mg tablet 10 mg PO DAILY Qty: 90 3RF Hold Instructions: MD Ordered Patient Comments: PT STATES SHE THINKS THIS MED IS CAUSING WIDESPREAD MUSCLE PAIN, SO SHE STOPPED TAKING prednisone 20 mg tablet 10 mg PO DAILY PRN (Reason: pain) Referrals / Follow Up: [facility] [Provider Group] - Within 1 Month Tabatha Diaz MD [Primary Care Provider] - Within 2 Weeks Disposition Disposition (needs filled in before D/C Order can be placed): Home, Self Care Charges/Coding Visit Charges Inpatient E&M: 20740 Disch Hosp >30min
--- NOTE | 2023-11-07 14:25 | CASEMGMT ---
Pt DC order in. RN CM to pt room at this time and pt states that she still feels safe and comfortable DC today with no additional needs.
== END 2023-11-07 17:12 | disposition home or self-care (01) | DRG 280 ==
LOC: ED 12:03 → PCU 12:23
PROVIDERS: Specialist; Emergency Provider Emergency Medicine; PCP Internal Medicine
DX: I13.0 Hypertensive heart and chronic kidney disease with heart failure and stage 1 through stage 4 chronic kidney disease, or unspecified chronic kidney disease (principal); I21.A1 Myocardial infarction type 2; I50.23 Acute on chronic systolic (congestive) heart failure; I27.20 Pulmonary hypertension, unspecified; E11.22 Type 2 diabetes mellitus with diabetic chronic kidney disease; J44.9 Chronic obstructive pulmonary disease, unspecified; I42.9 Cardiomyopathy, unspecified; M35.3 Polymyalgia rheumatica; N18.9 Chronic kidney disease, unspecified; I25.10 Atherosclerotic heart disease of native coronary artery without angina pectoris; E78.5 Hyperlipidemia, unspecified; I25.2 Old myocardial infarction; Z79.82 Long term (current) use of aspirin; Z79.84 Long term (current) use of oral hypoglycemic drugs; Z79.899 Other long term (current) drug therapy; Z86.16 Personal history of COVID-19; Z95.1 Presence of aortocoronary bypass graft; Z95.5 Presence of coronary angioplasty implant and graft
CPT/HCPCS: 36415; 71045; 80048; 80053; 81001; 82962; 83036; 83880; 84443; 84484; 85025; 85610; 85652; 85730; 86140; 93005; 93306; 93455; 94640; 94762; 97162; 97166; 99152; 99153; 99252; 99285; C1894; J7040; Q9957; Q9967; A4216; C1769; C8929; G0463; J1940

== ENCOUNTER 2024-05-09 23:24 | Emergency (ER) | payer MEDICARE, SELFPAY ==
[2021-03-16 09:07] VITALS: BMI 39.2
[2024-05-09 23:24] VITALS: BP 134/95; PULSE 68; RESP 16; TEMP 36.8; O2SAT 100
[2024-05-09 23:26] VITALS: BMI 39.4
[2024-05-09 23:31] VITALS: BP 186/74; PULSE 68; RESP 16; TEMP 36.8; O2SAT 100
--- NOTE | 2024-05-09 23:46 | EKG12_ITS ---
Test Reason : CP Blood Pressure : / mmHG Vent. Rate : 067 BPM Atrial Rate : 067 BPM P-R Int : 156 ms QRS Dur : 102 ms QT Int : 410 ms P-R-T Axes : 020 036 108 degrees QTc Int : 433 ms Normal sinus rhythm with sinus arrhythmia ST & T wave abnormality, consider lateral ischemia Abnormal ECG Confirmed by ARNALDO DUQUE, DARLENE ([id number]), assistant film editor NIRAV DICKSON ([id number]) on 05/11/2024 8:09:33 AM Referred By: RAY Confirmed By:DARLENE MCINTOSH MD
--- NOTE | 2024-05-09 23:57 | RAD_ITS ---
EXAM: XR CHEST, 2 VIEWS CLINICAL INDICATION: CHEST PAIN TECHNIQUE: Frontal and lateral views of the chest. COMPARISON: Single view chest 11/04/2023 FINDINGS: LUNGS AND PLEURAL SPACES: Unremarkable. No consolidation or edema. No pneumothorax. No effusion. HEART: Unremarkable. Cardiac silhouette not enlarged. MEDIASTINUM: Surgical changes of the mediastinum. BONES/JOINTS: Degenerative changes of the spine. No acute fracture. SOFT TISSUES: Unremarkable. RAD/Chest PA and Lateral IMPRESSION: No acute findings in the chest. Electronically Signed: Freddie Mcdowell MD at 0:33 EDT ,
[2024-05-10 00:12] LABS: Anion Gap 7 (5-15); BUN 52 mg/dL (7-18); BUN/Creat Ratio 20.8 RATIO (10-20); Calcium,Total 9.4 mg/dL (8.5-10.1); Chloride 103 mmol/L (98-107); EST Glomerular Filtration Rate 20 mL/min (>60); Est Glom Filt Rate - Afr Amer 24 mL/min (>60); Estimated Creatinine Clearance 18.85 ml/min; Glucose 189 mg/dL (74-106); Magnesium 2.2 mg/dL (1.6-2.6); Potassium 4.4 mmol/L (3.5-5.1); Sodium Level 135 mmol/L (136-145); Troponin-I HS 32 pg/mL (3.0-54.0)
[2024-05-10 00:15] LABS: Absolute Lymphocyte Count 3.25 X10^3/uL (0.83-4.51); Absolute Neutrophil Count 8.8 X10^3/uL (2.0-7.7); Basophil# 0.07 X10^3/uL; Basophil% 0.5 % (0-1); Eosinophil# 0.27 X10^3/uL; Hematocrit 36.7 % (37-47); Hemoglobin 11.7 g/dL (12.0-15.0); Lymphocyte # 3.25 X10^3/ul (0.83-4.51); Lymphocyte % 24.6 % (19-41); Mean Corp Hgb Conc 31.9 g/dL (32-36); Mean Corpuscular Volume 97.1 fL (81-99); Mean Platelet Vol. 10.3 fl (6.2-12.0); Monocyte# 0.73 X10^3/uL; Monocyte% 5.5 % (0-10); NRBC Flagged by Analyzer 0 % (0-5); Neutrophil # 8.78 X10^3/uL (2.7-7.7); Neutrophil % 66.6 % (47-70); Platelet Count 372 K/mm3 (150-450); RBC Distribution Width CV 13.8 % (11.6-14.6); RBC Distribution Width SD 49.1 fl (35.1-43.9); Red Blood Count 3.78 M/mm3 (4.2-5.4); White Blood Count 13.2 K/mm3 (4.4-11.0)
[2024-05-10 00:24] VITALS: BP 124/60; PULSE 76; RESP 18; O2SAT 100
[2024-05-10 01:00] VITALS: BP 136/83; PULSE 70; RESP 14; O2SAT 95
[2024-05-10 02:00] VITALS: BP 123/49; PULSE 67; RESP 18; O2SAT 99
[2024-05-10 02:40] LABS: Troponin-I HS 29 pg/mL (3.0-54.0)
--- NOTE | 2024-05-10 02:51 | EX.ED.DYSGE1 ---
HPI History of Present Illness Chief Complaint: Chest Pain Informant: patient and family Narrative Narrative: Patient is a 79-year-old female with past medical history of hypertension hyperlipidemia type 2 diabetes and coronary artery disease who reports that she has had multiple heart attacks in the past. She was seen in October of this year secondary to chest pain with elevated troponins and had a heart cath at that time. She states that this evening around 9 PM she noticed some midsternal chest pressure which she states has been her symptoms with previous heart attacks. She states there was no nausea vomiting diaphoresis or shortness of breath or radiation of the pain. She states that the pain lasted for approximate 30 minutes and then resolved and then returned roughly 20 to 30 minutes prior to arrival. She states she been under a great deal of stress recently and feels this may have contributed to her symptoms but as she has a known history of CAD with stent placement she presents for evaluation [facility] Medical History (Reviewed 02/27/24 @ 15:25 by Laura Roa [employer]AG OPERATOR, [employer]AG OPERATOR-C) CHF (congestive heart failure) Anemia NSTEMI (non-ST elevated myocardial infarction) Cardiomyopathy COVID-19 (~04/2022) Insect bite History of non-ST elevation myocardial infarction (NSTEMI) (01/26/21) COPD (chronic obstructive pulmonary disease) Morbid obesity TIA (transient ischemic attack) Arm paresthesia, right CKD (chronic kidney disease) Atherosclerotic heart disease of [place] coronary artery without angina 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 Obesity Atherosclerosis of coronary artery bypass graft without angina pectoris Essential hypertension Type 2 diabetes mellitus without complication Vertigo GERD (gastroesophageal reflux disease) Asthma Hyperlipidemia Hypothyroidism Home Medications ?Medication ?Instructions ?Recorded ?Last Taken ?Type montelukast 10 mg tablet 10 mg PO DAILY ASTHMA 12/17/13 11/03/23 History aspirin 81 mg tablet,delayed 81 mg PO QDAY HEART HEALTH 11/19/17 11/03/23 History release cetirizine 10 mg tablet (Zyrtec) 10 mg PO QDAY allergies 02/15/20 11/03/23 History allopurinol 100 mg tablet 100 mg PO DAILY GOUT 11/22/21 11/03/23 History spironolactone 25 mg tablet 25 mg PO BID HEART 08/28/22 11/03/23 History ipratropium 20 mcg-albuterol 100 1 puff inhalation Q6H BREATHING 09/20/22 11/03/23 History mcg/actuation mist for inhalation (Combivent Respimat) ferrous sulfate 325 mg (65 mg 325 mg PO BID SUPPLEMENT 10/04/22 Unknown History iron) tablet furosemide 40 mg tablet (Lasix) 40 mg PO DAILY diuretic 12/25/22 Unknown History cholecalciferol (vitamin D3) 25 25 mcg PO SUTUTHSA vitamin 06/05/23 11/02/23 History mcg (1,000 unit) tablet glipizide 10 mg tablet 2.5 mg PO DAILY DM 06/05/23 Unknown History levothyroxine 100 mcg tablet 100 mcg PO DAILY THYROID 06/05/23 11/03/23 History metoprolol tartrate 50 mg tablet 50 mg PO DAILY blood pressure 06/05/23 11/03/23 History omeprazole 20 mg capsule,delayed 20 mg PO DAILY reflux 11/04/23 11/03/23 History release ezetimibe 10 mg tablet (Zetia) 10 mg PO DAILY 02/27/24 Unknown History prednisone 5 mg tablet 5 mg PO DAILY 02/27/24 Unknown History albuterol sulfate 2.5 mg/3 mL 1.25 mg inhalation PRN 05/09/24 Unknown History (0.083 %) solution for nebulization ipratropium bromide 0.02 % 0.5 mg inhalation PRN 05/09/24 Unknown History solution for inhalation Allergy/AdvReac Type Severity Reaction Status Date / Time Anesthetics - Amide Type - Allergy Other Verified 05/09/24 23:24 Select A (Anesthetics - Amide Type) acetaminophen (From Tylenol) AdvReac Severe Other Verified 05/09/24 23:24 pravastatin AdvReac Intermediate Myalgias Verified 05/09/24 23:24 after 15 years of taking cinnamon AdvReac Unknown Unknown Verified 05/09/24 23:24 Penicillins AdvReac Unknown Unknown Verified 05/09/24 23:24 ezetimibe (From Zetia) AdvReac myalgias Verified 05/09/24 23:24 Family History Mother , age 86, advanced age No problems noted. Father Prostate cancer Surgical History History of coronary artery stent placement (01/26/21) H/O coronary artery bypass surgery (10/11/07) Hx of bilateral cataract extraction History of hysterectomy Hx of appendectomy History of cholecystectomy Social History household members: family housing: house Smoking Status: Never smoker alcohol intake: never substance use type: does not use caffeine: Yes Type: carbonated beverages what type of physical activity do you participate in: none seatbelt use: always do you feel safe at home: Yes ROS ROS ED Constitutional Constitutional ED: Denies chills or fever(s) Eyes Eyes: Denies blurry vision or change in vision ENT ENT ED: Denies sore throat Cardiovascular Cardiovascular: Reports chest pain; Denies palpitations or racing heartbeat Respiratory/Chest Respiratory/Chest: Denies cough or dyspnea Gastrointestinal Gastrointestinal: Denies abdominal pain, diarrhea, nausea or vomiting Genitourinary Genitourinary ED: Denies dysuria Musculoskeletal Musculoskeletal: Denies back pain or neck pain Integumentary Denies rash Neurologic Neurologic: Denies headache(s) Hematologic/Lymphatic Hematologic/Lymphatic: Denies easy bleeding or easy bruising EXAM Physical Exam Const Vital Signs: 05/09/24 23:24 05/09/24 23:31 05/09/24 23:31 Temperature 98.2 F 98.2 F Temperature Source Temporal Oral Pulse Rate 68 68 Respiratory Rate 16 16 Respiratory Effort Normal Non-Labored Respiratory Pattern Normal Blood Pressure 134/95 H 186/74 H Blood Pressure Mean 108 111 Pulse Ox 100 100 Oxygen Delivery Method Room Air Room Air 05/10/24 00:24 05/10/24 01:00 05/10/24 02:00 Temperature Temperature Source Pulse Rate 76 70 67 Respiratory Rate 18 14 18 Respiratory Effort Respiratory Pattern Blood Pressure 124/60 H 136/83 H 123/49 H Blood Pressure Mean 81 100 73 Pulse Ox 100 95 99 Oxygen Delivery Method Room Air Room Air Room Air 05/10/24 02:55 Temperature 97.9 F Temperature Source Pulse Rate 72 Respiratory Rate 20 H Respiratory Effort Respiratory Pattern Blood Pressure 125/58 H Blood Pressure Mean 80 Pulse Ox 99 Oxygen Delivery Method Positive well nourished, well developed and obese General Appearance ED: well developed; Negative for pallor Nutritional Appearance: obese HEENT HEENT Narrative: Normocephalic atraumatic Eyes PERRL and EOMs intact bilaterally General Eye ED: Negative for pale conjunctiva or scleral icterus Neck supple and no JVD Chest Wall palpation of chest normal Chest Narrative: No bony deformity or crepitance of the chest wall no reproducible pain with palpation Resp normal respiratory effort Resp Narrative: Breath sounds are diminished throughout with faint expiratory wheeze in the bilateral bases but otherwise no nasal flaring retractions tachypnea or accessory muscle use Cardio regular rate and regular rhythm Rate: other Other Details: Heart is regular rate and rhythm Radial and carotid pulses are equal and symmetric GI normal to inspection, nondistended, normoactive bowel sounds, non-tender, non-distended and no masses GI Narrative: No voluntary guarding or rigidity or pulsatile mass Auscultation: normoactive bowel sounds Palpation: soft Extremity Extremity Narrative: +1 pitting edema to the bilateral lower extremities that is equal and symmetric Negative Homans' sign bilaterally Neuro oriented x3, CN's II-XII intact bilaterally and no sensory deficits noted Sensorium / Orientation: alert Motor Exam: strength 5/5 throughout Psych Psych Narrative: Patient has a flat affect Skin no rashes or lesions noted General Skin Exam: Negative for jaundice or pallor MDM MDM MDM Narrative Medical decision making narrative: Patient arrived to the ER with stable vitals and reported spontaneous resolution of her chest discomfort. However she has a known history of CAD and there are T wave inversions noted on her EKG this evening which appear new from October. Therefore there is concern for acute coronary syndrome versus pneumonia versus pneumothorax versus congestive heart failure exacerbation/pleural effusions as a cause of her chest discomfort. Secondary to this basic labs were obtained. The patient's initial troponin was 32 and the 2-hour delta remained flat and actually downtrended slightly to 29 this goes against acute coronary syndrome. There is no cardiac dysrhythmia noted while patient was in the ER and kept on the laboratory monitor. Chest x-ray revealed no widened mediastinum to suggest dissection and there was no signs of pneumonia or pneumothorax. Moreover the patient remained chest pain-free since her arrival to the ER. Her heart cath from October of this year was reviewed and did talk about previous occlusion of the stents but there is collateral flow and it was recommended that she continue with optimal medical management and undergo no further intervention. At that time her troponins were grossly elevated in the thousands. Therefore this time as patient's vitals are stable she has had spontaneous resolution of her chest pain upon arrival to the ER and her troponins are normal I do not feel there is need for repeat admission or continued observation in the ER especially as she had a heart cath 7 months ago that recommended continued medical management. This plan of care was discussed with the patient she is agreeable to it and will follow-up with her durable medical equipment technician on an outpatient basis History & Record Review Discussion w/independent historian: Patient and Family Lab Data Attestation: I reviewed the patient's lab results. Labs: Laboratory Results - last 24 hr 05/09/24 05/10/24 05/10/24 23:40 01:45 02:15 WBC 13.2 H RBC 3.78 L Hgb 11.7 L Hct 36.7 L MCV 97.1 MCH 31.0 MCHC 31.9 L RDW Std Deviation 49.1 H RDW Coeff of Kamar 13.8 Plt Count 372 MPV 10.3 Immature Gran % (Auto) 0.800 Neut % (Auto) 66.6 Lymph % (Auto) 24.6 [place] % (Auto) 5.5 Eos % (Auto) 2.0 Baso % (Auto) 0.5 Absolute Neuts (auto) 8.8 H Absolute Lymphs (auto) 3.25 Nucleated RBC % 0 Sodium 135 L Potassium 4.4 Chloride 103 Carbon Dioxide 25.0 Anion Gap 7 BUN 52 H Creatinine 2.50 H Estim Creat Clear Calc 18.85 Est GFR (MDRD) Af Amer 24 L Est GFR (MDRD) Non-Af 20 L BUN/Creatinine Ratio 20.8 H Glucose 189 H Calcium 9.4 Magnesium 2.2 Troponin I High Sens 32 Cancelled 29 Radiography Diagnostic Testing: Clinical Impression(s) from Imaging Studies Chest X-Ray 05/09/24 23:57 IMPRESSION: No acute findings in the chest. Electronically Signed: Freddie Mcdowell MD at 0:33 EDT , Chest x-ray as interpreted by the emergency medicine physician reveals no acute infiltrate pneumothorax pleural effusion or widening the mediastinum Discharge Plan Triage Chief Complaint: Chest Pain ED Provider: Jatin De La Rosa Dx/Rx/DC Orders Clinical Impression: Nonspecific chest pain, Coronary artery disease, Hypertension, Hyperlipidemia, Type 2 diabetes mellitus Instructions: CAD, ED Chest Pain, Uncertain Cause Prescriptions: No Action aspirin 81 mg tablet,delayed release (DR/EC) 81 mg PO QDAY cetirizine [Zyrtec] 10 mg tablet 10 mg PO QDAY glipizide 10 mg tablet 2.5 mg PO DAILY allopurinol 100 mg tablet 100 mg PO DAILY levothyroxine 100 mcg tablet 100 mcg PO DAILY Patient Comments: TAKE 1 TABLET BY MOUTH ONCE DAILY furosemide [Lasix] 40 mg tablet 40 mg PO DAILY metoprolol tartrate 50 mg tablet 50 mg PO DAILY cholecalciferol (vitamin D3) 25 mcg (1,000 unit) tablet 25 mcg PO SUTUTHSA spironolactone 25 mg tablet 25 mg PO BID ferrous sulfate 325 mg (65 mg iron) tablet 325 mg PO BID Patient Comments: PT RAN OUT OF MED AND HASNT GOTTEN REFILLED YET prednisone 5 mg tablet 5 mg PO DAILY ezetimibe [Zetia] 10 mg tablet 10 mg PO DAILY montelukast 10 MG tablet 10 mg PO DAILY Combivent Respimat 20-100 mcg/actuation mist 1 puff INHALATION Q6H omeprazole 20 mg capsule,delayed release(DR/EC) 20 mg PO DAILY albuterol sulfate 2.5 mg /3 mL (0.083 %) solution for nebulization 1.25 mg inhalation PRN ipratropium bromide 0.02 % solution 0.5 mg inhalation PRN Primary Care Provider: Tabatha Diaz Referrals: Tabatha Diaz MD [Primary Care Provider] - Lasha Win MD [Med Staff - Active Staff] - Activity Restrictions/Additional Instructions: Please continue all of your normal medications as directed by your doctor and return to the ER should you have any further concerns. Follow-up with your durable medical equipment technician for repeat evaluation as well please Print Language: Azeri Disposition Disposition: Home, Self Care Discharge Date/Time: 05/10/24 03:00
[2024-05-10 02:55] VITALS: BP 125/58; PULSE 72; RESP 20; TEMP 36.6; O2SAT 99
== END 2024-05-10 03:00 | disposition home or self-care (01) ==
PROVIDERS: Emergency Provider Emergency Medicine; PCP Internal Medicine; Visit Provider Emergency Medicine
DX: R07.9 Chest pain, unspecified (principal); I13.0 Hypertensive heart and chronic kidney disease with heart failure and stage 1 through stage 4 chronic kidney disease, or unspecified chronic kidney disease; I50.9 Heart failure, unspecified; J44.9 Chronic obstructive pulmonary disease, unspecified; E11.22 Type 2 diabetes mellitus with diabetic chronic kidney disease; I25.10 Atherosclerotic heart disease of native coronary artery without angina pectoris; Z95.5 Presence of coronary angioplasty implant and graft; N18.9 Chronic kidney disease, unspecified; E78.5 Hyperlipidemia, unspecified; K21.9 Gastro-esophageal reflux disease without esophagitis; E66.9 Obesity, unspecified
CPT/HCPCS: 71046; 80048; 83735; 84484; 85025; 93005; 99283; A4216

== ENCOUNTER 2024-06-10 08:12 | Inpatient (IN) | payer MEDICARE, SELFPAY ==
[2021-03-16 09:07] VITALS: BMI 39.2
[2024-06-10] VITALS (12 sets, daily range): BP systolic 117–175; BP diastolic 55–96; PULSE 75–116; RESP 13–21; TEMP 36.6–36.9; O2SAT 98–100; BMI 30.9; BMI 32.0
--- NOTE | 2024-06-10 08:23 | ED.VIS.CHEST ---
HPI History of Present Illness Chief Complaint: Chest Pain Informant: patient Onset/Context/Timing Onset: Today Activity at onset: sudden Timing: Intermittent and Lasts (30 to 60 minutes) Quality: Positive for Dull Location: Substernal, Right Chest and Left Chest Worsened By: Nothing Relieved By: NSAIDS (Aspirin) Associated Symptoms: Positive for Palpitations; Negative for Nausea, Vomiting, Diaphoresis, Dyspnea, Cough, Fever, Lightheadedness or Acid Reflux Narrative Narrative: Patient presents with chest pain that began this morning. Patient states that it woke her up around 4 AM today. Patient states it began rather suddenly. Patient states she took 4 baby aspirin and her pain improved. Patient states he was able to go back to sleep. Patient states the pain woke her up again later this morning. Patient describes it as a dull ache. Patient states it is over the upper chest and radiates into her neck. Patient states nothing makes it worse. Patient denies any nausea or vomiting. Patient denies any shortness of breath or cough. Patient denies any lightheadedness or dizziness. Patient states she did have some palpitations where she felt like her heart was racing. CVD Risk Factors: Positive for Hypertension and Diabetes; Negative for Hypercholesterolemia, Family History 1' </=55 or Smoking PE Risk Factors: Negative for Recent Travel/Surgery, Recent Immobilization, Prior DVT or PE or Cancer [facility] Medical History CHF (congestive heart failure) Anemia NSTEMI (non-ST elevated myocardial infarction) Cardiomyopathy COVID-19 (~04/2022) Insect bite History of non-ST elevation myocardial infarction (NSTEMI) (01/26/21) COPD (chronic obstructive pulmonary disease) Morbid obesity TIA (transient ischemic attack) Arm paresthesia, right CKD (chronic kidney disease) 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 Obesity Atherosclerosis of coronary artery bypass graft without angina pectoris Essential hypertension Type 2 diabetes mellitus without complication Vertigo GERD (gastroesophageal reflux disease) Asthma Hyperlipidemia Hypothyroidism Home Medications ?Medication ?Instructions ?Recorded ?Last Taken ?Type montelukast 10 mg tablet 10 mg PO DAILY ASTHMA 12/17/13 06/09/24 History aspirin 81 mg tablet,delayed 81 mg PO QDAY [facility] 11/19/17 06/10/24 History release cetirizine 10 mg tablet (Zyrtec) 10 mg PO QDAY allergies 02/15/20 06/09/24 History allopurinol 100 mg tablet 100 mg PO DAILY GOUT 11/22/21 06/09/24 History spironolactone 25 mg tablet 25 mg PO BID HEART 08/28/22 06/09/24 History ipratropium 20 mcg-albuterol 100 1 puff inhalation Q6H BREATHING 09/20/22 06/09/24 History mcg/actuation mist for inhalation (Combivent Respimat) ferrous sulfate 325 mg (65 mg 325 mg PO DAILY SUPPLEMENT 10/04/22 06/10/24 History iron) tablet furosemide 40 mg tablet (Lasix) 40 mg PO DAILY diuretic 12/25/22 Unknown History cholecalciferol (vitamin D3) 25 25 mcg PO SUTUTHSA vitamin 06/05/23 06/08/24 History mcg (1,000 unit) tablet levothyroxine 100 mcg tablet 100 mcg PO DAILY THYROID 06/05/23 06/09/24 History metoprolol tartrate 50 mg tablet 50 mg PO DAILY blood pressure 06/05/23 06/09/24 History omeprazole 20 mg capsule,delayed 20 mg PO DAILY reflux 11/04/23 06/09/24 History release ezetimibe 10 mg tablet (Zetia) 10 mg PO DAILY 02/27/24 06/09/24 History prednisone 5 mg tablet 5 mg PO DAILY 02/27/24 06/10/24 History albuterol sulfate 2.5 mg/3 mL 1.25 mg inhalation TID PRN 05/09/24 06/09/24 History (0.083 %) solution for nebulization shortness of breath or wheezing ipratropium bromide 0.02 % 0.5 mg inhalation TID PRN 05/09/24 06/09/24 History solution for inhalation shortness of breath or wheezing biotin 10,000 mcg capsule 10,000 mcg PO DAILY 06/10/24 06/09/24 History folic acid 1 mg tablet 1 mg PO DAILY 06/10/24 06/09/24 History glipizide 2.5 mg tablet, extended 2.5 mg PO BID 06/10/24 06/09/24 History release 24 hr leflunomide 10 mg tablet 5 mg PO DAILY 06/10/24 06/09/24 History Allergy/AdvReac Type Severity Reaction Status Date / Time Anesthetics - Amide Type - Allergy Other Verified 06/10/24 08:13 Select A (Anesthetics - Amide Type) acetaminophen (From Tylenol) AdvReac Severe Other Verified 06/10/24 08:13 pravastatin AdvReac Intermediate Myalgias Verified 06/10/24 08:13 after 15 years of taking cinnamon AdvReac Unknown Unknown Verified 06/10/24 08:13 Penicillins AdvReac Unknown Unknown Verified 06/10/24 08:13 ezetimibe (From Zetia) AdvReac myalgias Verified 06/10/24 08:13 Family History Mother , age 86, advanced age No problems noted. Father Prostate cancer Surgical History History of coronary artery stent placement (01/26/21) H/O coronary artery bypass surgery (10/11/07) Hx of bilateral cataract extraction History of hysterectomy Hx of appendectomy History of cholecystectomy Social History household members: family housing: house Smoking Status: Never smoker alcohol intake: never substance use type: does not use caffeine: Yes Type: carbonated beverages what type of physical activity do you participate in: none seatbelt use: always do you feel safe at home: Yes ROS ROS ED Constitutional Constitutional ED: Denies chills or fever(s) Eyes Eyes: Denies blurry vision or change in vision ENT ENT ED: Denies rhinorrhea or sore throat Cardiovascular Cardiovascular: Reports chest pain, palpitations and racing heartbeat Respiratory/Chest Respiratory/Chest: Denies cough or dyspnea Gastrointestinal Gastrointestinal: Denies nausea or vomiting Genitourinary Genitourinary ED: Reports dysuria; Denies hematuria Musculoskeletal Musculoskeletal: Denies back pain or neck pain Integumentary Denies abscess or rash Neurologic Neurologic: Denies headache(s) or weakness Allergic/Immunologic Allergic/Immunologic ED: Denies mouth swelling or urticaria EXAM Physical Exam Const Vital Signs: 06/10/24 08:13 06/10/24 08:25 06/10/24 08:27 Temperature 98.1 F 98.1 F Temperature Source Oral Temporal Pulse Rate 116 H 99 Respiratory Rate 18 17 Respiratory Effort Normal Respiratory Pattern Blood Pressure 172/96 H 171/72 H Blood Pressure Mean 121 105 Pulse Ox 98 100 Oxygen Delivery Method Room Air Room Air 06/10/24 09:14 06/10/24 10:03 06/10/24 10:22 Temperature Temperature Source Pulse Rate 83 Respiratory Rate 16 Respiratory Effort Respiratory Pattern Normal Blood Pressure 141/55 H Blood Pressure Mean 83 Pulse Ox 100 Oxygen Delivery Method Room Air 06/10/24 12:00 06/10/24 12:42 Temperature 97.9 F Temperature Source Pulse Rate 87 96 Respiratory Rate 13 21 H Respiratory Effort Respiratory Pattern Blood Pressure 145/63 H 166/75 H Blood Pressure Mean 90 105 Pulse Ox 98 99 Oxygen Delivery Method Positive well nourished and well developed General Appearance ED: well developed and NAD HEENT Reports moist mucous membranes Neck supple and no JVD Resp normal respiratory effort and clear to auscultation bilaterally Cardio regular rate and regular rhythm GI soft to palpation, non-tender and non-distended Extremity General Extremety ED: Negative for edema or tenderness General Extremity: Negative for edema Neuro oriented x3, CN's II-XII intact bilaterally and no sensory deficits noted Sensorium / Orientation: awake and alert Motor Exam: strength 5/5 throughout Psych mental status grossly normal Heart Score History: Slightly/Non-Suspicious ECG: Nonspecific Repolarization Age: >/= 65 years Risk Factors: >/= 3 Risk Factors or History of CAD Score: 5 MDM MDM MDM Narrative Medical decision making narrative: Differential diagnosis includes cardiac dysrhythmia, cardiac ischemia, pneumonia, pneumothorax, COPD exacerbation, congestive heart failure, and gastroesophageal reflux disease. EKG will be obtained to assess for cardiac dysrhythmia and cardiac ischemia. Chest x-ray will be obtained to assess for pneumonia and pneumothorax. CBC will be obtained to assess for leukocytosis and anemia. Basic metabolic profile will be obtained to assess for electrolyte abnormality and renal function. High-sensitivity troponin will be obtained to assess for cardiac ischemia. 2-hour repeat high-sensitivity troponin will be obtained to assess for ongoing cardiac ischemia. Lab Data Attestation: I reviewed the patient's lab results. Lab results narrative: CBC was reviewed. There is a mild leukocytosis of 13.7. There is a mild anemia with a hemoglobin of 11.5 and hematocrit of 35.9. Platelets were normal. Basic metabolic profile was reviewed. BUN was slightly elevated at 48 and creatinine was slightly elevated at 2.26. These are consistent with previous results. Glucose was mildly elevated at 184. Initial high-sensitivity troponin was reviewed and was normal at 43. 2-hour repeat high-sensitivity troponin was reviewed and was elevated at 113. Urinalysis was reviewed. Leukocyte esterase was 500 with greater than 100 white blood cells. Occult blood was 50 with 25-50 red blood cells. There is 4+ bacteria. Labs: Laboratory Results - last 24 hr 06/10/24 06/10/24 06/10/24 08:22 08:25 11:19 WBC 13.7 H RBC 3.63 L Hgb 11.5 L Hct 35.9 L MCV 98.9 MCH 31.7 MCHC 32.0 RDW Std Deviation 53.3 H RDW Coeff of Kamar 14.6 Plt Count 323 MPV 10.5 Immature Gran % (Auto) 0.500 Neut % (Auto) 79.6 H Lymph % (Auto) 14.0 L [place] % (Auto) 5.0 Eos % (Auto) 0.6 Baso % (Auto) 0.3 Absolute Neuts (auto) 10.9 H Absolute Lymphs (auto) 1.93 Nucleated RBC % 0 Sodium 135 L Potassium 4.8 Chloride 104 Carbon Dioxide 25.0 Anion Gap 6 BUN 40 H Creatinine 2.26 H Estim Creat Clear Calc 18.31 Est GFR (MDRD) Af Amer 27 L Est GFR (MDRD) Non-Af 22 L BUN/Creatinine Ratio 17.7 Glucose 184 H Calcium 9.1 Phosphorus 3.1 Magnesium 2.2 Troponin I High Sens 43 113 H Urine Color Straw Urine Clarity Cloudy Urine pH 6.0 Ur Specific [place] 1.015 Urine Protein 30 H Urine Glucose (UA) Normal Urine Ketones Negative Urine Occult Blood 50 H Urine Nitrite Negative Urine Bilirubin Negative Urine Urobilinogen Normal Ur Leukocyte Esterase 500 H Urine RBC 25-50 SEEN Urine WBC >100 SEEN Ur Squamous Epith Cells 0 SEEN Urine Bacteria 4+ Urine Mucus 0 SEEN Radiography Diagnostic Testing: Clinical Impression(s) from Imaging Studies Chest X-Ray 06/10/24 09:11 IMPRESSION: No acute abnormality is seen. Electronically Signed: Brandyn Cheng MD at 10:24 EDT , Portable 1 view chest x-ray was obtained. On my independent interpretation, lung myles are clear. There is normal cardiac silhouette. Bony thorax is normal. There is no acute process noted. Radiologist also interpreted the x-ray and agrees. EKG Initial EKG: Attestation: I personally reviewed and interpreted this EKG as follows: Interpretation: Sinus Tachycardia (108) and Non-Specific ST Changes Comments: EKG was obtained. On my independent interpretation, it showed a sinus tachycardia with a rate of 108. [place] interval, QRS interval, and QTc intervals were all normal. [place] was normal. There are nonspecific ST-T wave changes. Prior EKG tracings: available for review Prior: Unchanged (05/09/2024) Management Discussion w/another healthcare provider: Hospitalist (Dr. Avila) and Vocational Training Director (Dr. Graham) Additional Tests and Interventions Additional Tests or Interventions: Urine culture was ordered Treatment and Re-Evaluation :: Patient already took aspirin at home. Patient was ordered sublingual nitroglycerin. Patient denied any chest pain and the nitroglycerin was withheld. Patient was given a dose of Cipro for her urinary tract infection. Patient was advised of her findings. Case was discussed with cardiology. He recommended starting the patient on a heparin drip. This was ordered. Case was discussed with the hospitalist. He will admit the patient to his service. Patient understood and was agreeable with the plan. All questions were answered. Discharge Plan Triage Chief Complaint: Chest Pain Other Complaint: Complaint ED Provider: Alfonso Padilla Dx/Rx/DC Orders Clinical Impression: Chest pain, Elevated troponin, Urinary tract infection Prescriptions: No Action aspirin 81 mg tablet,delayed release (DR/EC) 81 mg PO QDAY cetirizine [Zyrtec] 10 mg tablet 10 mg PO QDAY allopurinol 100 mg tablet 100 mg PO DAILY levothyroxine 100 mcg tablet 100 mcg PO DAILY furosemide [Lasix] 40 mg tablet 40 mg PO DAILY metoprolol tartrate 50 mg tablet 50 mg PO DAILY cholecalciferol (vitamin D3) 25 mcg (1,000 unit) tablet 25 mcg PO [facility] spironolactone 25 mg tablet 25 mg PO BID ferrous sulfate 325 mg (65 mg iron) tablet 325 mg PO DAILY prednisone 5 mg tablet 5 mg PO DAILY ezetimibe [Zetia] 10 mg tablet 10 mg PO DAILY montelukast 10 MG tablet 10 mg PO DAILY Combivent Respimat 20-100 mcg/actuation mist 1 puff INHALATION Q6H Patient Comments: PT STATES SHE ONLY USED APPROX 3 TIMES A DAY omeprazole 20 mg capsule,delayed release(DR/EC) 20 mg PO DAILY albuterol sulfate 2.5 mg /3 mL (0.083 %) solution for nebulization 1.25 mg inhalation TID PRN (Reason: shortness of breath or wheezing) ipratropium bromide 0.02 % solution 0.5 mg inhalation TID PRN (Reason: shortness of breath or wheezing) leflunomide 10 mg tablet 5 mg PO DAILY glipizide 2.5 mg tablet extended release 24hr 2.5 mg PO BID folic acid 1 mg tablet 1 mg PO DAILY biotin 10,000 mcg capsule 10,000 mcg PO DAILY Primary Care Provider: Tabatha Diaz Referrals: Tabatha Diaz MD [Primary Care Provider] - Print Language: [place] Disposition Disposition: Acute Care Hospital [facility]
--- NOTE | 2024-06-10 09:11 | RAD_ITS ---
STUDY: X-RAY CHEST REASON FOR EXAM: Female, 79 years old. Chest pain TECHNIQUE: Single AP portable view of the chest. COMPARISON: Comparison is made with prior study May 09, 2024. FINDINGS: EKG electrodes are seen. The lungs are clear and expanded. There is no demonstrated pleural abnormality. Sternal cerclage wires and vascular clips are present from a prior sternotomy and coronary artery bypass graft procedure (CABG). Normal mediastinum and teri. Normal visualized pulmonary arteries. There is atherosclerotic calcification of the aortic arch with tortuosity. There are diffuse degenerative changes of the visualized thoracic spine. Normal visualized ribs, clavicles, and shoulders. There is no demonstrated abnormality of the visualized soft tissue structures of the upper abdomen. RAD/Chest 1 View (Portable) IMPRESSION: No acute abnormality is seen. Electronically Signed: Brandyn Cheng MD at 10:24 EDT ,
--- NOTE | 2024-06-10 09:11 | EKG12_ITS ---
Test Reason : CP Blood Pressure : / mmHG Vent. Rate : 108 BPM Atrial Rate : 108 BPM P-R Int : 156 ms QRS Dur : 100 ms QT Int : 334 ms P-R-T Axes : 059 036 134 degrees QTc Int : 447 ms Sinus tachy[address] abnormality, possible lateral subendocardial ischemia Abnormal ECG Confirmed by ARNALDO DUQUE, DARLENE ([id number]), assistant production editor NIRAV DICKSON ([id number]) on 06/12/2024 11:20:08 AM Referred By: KO Confirmed By:DARLENE MCINTOSH MD
[2024-06-10 09:24] LABS: Absolute Lymphocyte Count 1.93 X10^3/uL (0.83-4.51); Absolute Neutrophil Count 10.9 X10^3/uL (2.0-7.7); Basophil# 0.04 X10^3/uL; Basophil% 0.3 % (0-1); Eosinophil# 0.08 X10^3/uL; Eosinophils% 0.6 % (0-5); Hematocrit 35.9 % (37-47); Hemoglobin 11.5 g/dL (12.0-15.0); Lymphocyte # 1.93 X10^3/ul (0.83-4.51); Mean Corpuscular Hgb 31.7 pg (27.0-32.0); Mean Corpuscular Volume 98.9 fL (81-99); Mean Platelet Vol. 10.5 fl (6.2-12.0); Monocyte# 0.69 X10^3/uL; NRBC Flagged by Analyzer 0 % (0-5); Neutrophil # 10.93 X10^3/uL (2.7-7.7); Neutrophil % 79.6 % (47-70); Platelet Count 323 K/mm3 (150-450); RBC Distribution Width CV 14.6 % (11.6-14.6); RBC Distribution Width SD 53.3 fl (35.1-43.9); Red Blood Count 3.63 M/mm3 (4.2-5.4); White Blood Count 13.7 K/mm3 (4.4-11.0)
[2024-06-10 09:38] LABS: Anion Gap 6 (5-15); BUN 40 mg/dL (7-18); BUN/Creat Ratio 17.7 RATIO (10-20); Calcium,Total 9.1 mg/dL (8.5-10.1); Chloride 104 mmol/L (98-107); Creatinine, Serum 2.26 mg/dL (0.55-1.02); EST Glomerular Filtration Rate 22 mL/min (>60); Est Glom Filt Rate - Afr Amer 27 mL/min (>60); Estimated Creatinine Clearance 18.31 ml/min; Glucose 184 mg/dL (74-106); Potassium 4.8 mmol/L (3.5-5.1); Sodium Level 135 mmol/L (136-145); Troponin-I HS (w/2H Reflex) 43 pg/mL (3.0-54.0)
[2024-06-10] MEDS: Ipratropium/Albuterol Sulfate 3 ML AMPUL.NEB INHALATION (10:01)
[2024-06-10 11:14] LABS: Reflex Troponin-HS? (from REC) Y
[2024-06-10 11:41] LABS: Troponin-I HS 113 pg/mL (3.0-54.0)
--- NOTE | 2024-06-10 12:31 | PCM.HP.STD ---
HPI - General General Date of Admission: 06/10/24 Date of Service: 06/10/24 Chief Complaint: Chest pain today HPI Narrative HILLARY WELLS, is a 79 F came to ED with chest pain that woke her up around 4 AM first, took 4 baby aspirin, pain improved but lasted for about half an hour. She went to bed then again woke up at 6 AM and this time also it lasted more than half an hour therefore she came to ED. She denies as dull ache, feeling like heaviness left-sided with radiation to bilateral carotids, 5-6/10 intensity. She denies shortness of breath or dizziness, vertigo, nausea, vomiting, palpitation or diaphoresis. In ED, twelve-lead EKG was done which shows mild ST depression V1-V3 X1 and aVL. QTc 447 ms. Sinus tachycardia 108 beats per. First troponin elevated. She was evaluated in ED on 05/10/2024 for similar complaint of chest pain and at that time 2 troponins were negative therefore was discharged. She had cardiac cath 7 months ago and at that time medical management was recommended. 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 Obesity Atherosclerosis of coronary artery bypass graft without angina pectoris Essential hypertension Type 2 diabetes mellitus without complication Vertigo GERD (gastroesophageal reflux disease) Asthma Hyperlipidemia Hypothyroidism Home Medications ?Medication ?Instructions ?Recorded ?Last Taken ?Type montelukast 10 mg tablet 10 mg PO DAILY ASTHMA 12/17/13 06/09/24 History aspirin 81 mg tablet,delayed 81 mg PO QDAY HEART HEALTH 11/19/17 06/10/24 History release cetirizine 10 mg tablet (Zyrtec) 10 mg PO QDAY allergies 02/15/20 06/09/24 History allopurinol 100 mg tablet 100 mg PO DAILY GOUT 11/22/21 06/09/24 History spironolactone 25 mg tablet 25 mg PO BID HEART 08/28/22 06/09/24 History ipratropium 20 mcg-albuterol 100 1 puff inhalation Q6H BREATHING 09/20/22 06/09/24 History mcg/actuation mist for inhalation (Combivent Respimat) ferrous sulfate 325 mg (65 mg 325 mg PO DAILY SUPPLEMENT 10/04/22 06/10/24 History iron) tablet furosemide 40 mg tablet (Lasix) 40 mg PO DAILY diuretic 12/25/22 Unknown History cholecalciferol (vitamin D3) 25 25 mcg PO SUTUTHSA vitamin 06/05/23 06/08/24 History mcg (1,000 unit) tablet levothyroxine 100 mcg tablet 100 mcg PO DAILY THYROID 06/05/23 06/09/24 History metoprolol tartrate 50 mg tablet 50 mg PO DAILY blood pressure 06/05/23 06/09/24 History omeprazole 20 mg capsule,delayed 20 mg PO DAILY reflux 11/04/23 06/09/24 History release ezetimibe 10 mg tablet (Zetia) 10 mg PO DAILY 02/27/24 06/09/24 History prednisone 5 mg tablet 5 mg PO DAILY 02/27/24 06/10/24 History albuterol sulfate 2.5 mg/3 mL 1.25 mg inhalation TID PRN 05/09/24 06/09/24 History (0.083 %) solution for nebulization shortness of breath or wheezing ipratropium bromide 0.02 % 0.5 mg inhalation TID PRN 05/09/24 06/09/24 History solution for inhalation shortness of breath or wheezing biotin 10,000 mcg capsule 10,000 mcg PO DAILY 06/10/24 06/09/24 History folic acid 1 mg tablet 1 mg PO DAILY 06/10/24 06/09/24 History glipizide 2.5 mg tablet, extended 2.5 mg PO BID 06/10/24 06/09/24 History release 24 hr leflunomide 10 mg tablet 5 mg PO DAILY 06/10/24 06/09/24 History Allergy/AdvReac Type Severity Reaction Status Date / Time Anesthetics - Amide Type - Allergy Other Verified 06/10/24 08:13 Select A (Anesthetics - Amide Type) acetaminophen (From Tylenol) AdvReac Severe Other Verified 06/10/24 08:13 pravastatin AdvReac Intermediate Myalgias Verified 06/10/24 08:13 after 15 years of taking cinnamon AdvReac Unknown Unknown Verified 06/10/24 08:13 Penicillins AdvReac Unknown Unknown Verified 06/10/24 08:13 ezetimibe (From Zetia) AdvReac myalgias Verified 06/10/24 08:13 Family History Mother , age 86, advanced age No problems noted. Father Prostate cancer Surgical History History of coronary artery stent placement (01/26/21) H/O coronary artery bypass surgery (10/11/07) Hx of bilateral cataract extraction History of hysterectomy Hx of appendectomy History of cholecystectomy Social History household members: family housing: house Smoking Status: Never smoker alcohol intake: never substance use type: does not use caffeine: Yes Type: carbonated beverages what type of physical activity do you participate in: none seatbelt use: always do you feel safe at home: Yes ROS ROS Narrative Constitutional: Reports fatigue and weakness. No fever. HEENT: Reports systems reviewed and no addt'l complaints, except as documented Respiratory/Chest: No acute shortness of breath or respiratory distress or wheezing. CVS: As described in HPI Gastrointestinal: Denies coffee ground emesis, hematemesis or vomiting Genitourinary: Complain of burning micturition. Had 3 UTIs last year and 1 this year. Musculoskeletal: Denies acute joint pain or limited range of motion. No acute injury. Chronic joint pain. Neurologic: Denies seizure-like symptoms. skin: No ulcer. No rash Endocrinology: Reports systems reviewed and no addt'l complaints, except as documented Hematologic/Lymphatic: Reports systems reviewed and no addt'l complaints, except as documented Rest 14 ROS are negative except as mentioned in HPI Vital Signs Vital Signs Vital Signs: 06/10/24 08:13 06/10/24 08:25 06/10/24 08:27 Temperature 98.1 F 98.1 F Temperature Source Oral Temporal Pulse Rate 116 H 99 Respiratory Rate 18 17 Respiratory Effort Normal Respiratory Pattern Blood Pressure 172/96 H 171/72 H Blood Pressure Mean 121 105 Pulse Ox 98 100 Oxygen Delivery Method Room Air Room Air 06/10/24 09:14 06/10/24 10:03 06/10/24 10:22 Temperature Temperature Source Pulse Rate 83 Respiratory Rate 16 Respiratory Effort Respiratory Pattern Normal Blood Pressure 141/55 H Blood Pressure Mean 83 Pulse Ox 100 Oxygen Delivery Method Room Air 06/10/24 12:00 Temperature Temperature Source Pulse Rate 87 Respiratory Rate 13 Respiratory Effort Respiratory Pattern Blood Pressure 145/63 H Blood Pressure Mean 90 Pulse Ox 98 Oxygen Delivery Method Weight Weight: 164 lb Body Mass Index (BMI) 30.9 Physical Exam Narrative Seen and examined. General: Alert, Oriented x3, Cooperative HEENT: Atraumatic, PERRLA, EOMI, Normocephalic Oral: No Gingival or Mucosal Lesions/ Ulcerations Neck: Supple, No JVD, Negative Carotid Bruits Chest wall/Lungs: Air entry diminished in bilateral lung bases. No crepitation/rhonchi Cardiovascular: Sinus tachycardia, normal S1, Normal S2, CABG scar. Systolic murmur. Abdomen: Bowel Sounds Present, Soft, Non Tender, Non-Distended : No dysuria. No renal angle tenderness. No suprapubic tenderness. Extremities: Chronic right leg edema more than left leg. Capillary Refill Less than 3 Seconds Skin: No rashes, No breakdown Musculoskeletal: No Tenderness to Palpation of Joints or Extremities Neurological: Cranial nerves II-XII grossly intact, DTR 2+/4. No acute focal neurological deficit. Psych/Mental Status: Normal Affect, Appropriate. Results Lab / Micro Data 06/10/24 08:25 06/10/24 08:25 Labs: Laboratory Results - last 24 hr 06/10/24 08:25: WBC 13.7 H, RBC 3.63 L, Hgb 11.5 L, Hct 35.9 L, MCV 98.9, MCH 31.7, MCHC 32.0, RDW Std Deviation 53.3 H, RDW Coeff of Kamar 14.6, Plt Count 323, MPV 10.5, Immature Gran % (Auto) 0.500, Neut % (Auto) 79.6 H, Lymph % (Auto) 14.0 L, [place] % (Auto) 5.0, Eos % (Auto) 0.6, Baso % (Auto) 0.3, Absolute Neuts (auto) 10.9 H, Absolute Lymphs (auto) 1.93, Nucleated RBC % 0, Sodium 135 L, Potassium 4.8, Chloride 104, Carbon Dioxide 25.0, Anion Gap 6, BUN 40 H, Creatinine 2.26 H, Estim Creat Clear Calc 18.31, Est GFR (MDRD) Af Amer 27 L, Est GFR (MDRD) Non-Af 22 L, BUN/Creatinine Ratio 17.7, Glucose 184 H, Calcium 9.1, Troponin I High Sens 43 06/10/24 11:19: Troponin I High Sens 113 H Imaging Radiology Impression Chest X-Ray 06/10/24 09:11 IMPRESSION: No acute abnormality is seen. Electronically Signed: Brandyn Cheng MD at 10:24 EDT , Assessment & Plan Assessment/Plan (1) Chest pain, atypical: PLAN: Plan This 79-year-old female is being admitted for evaluation of chest pain that woke her up twice in the morning concern of possible unstable angina/non-STEMI 1. Possible unstable angina/non-STEMI with history of CAD, multiple stents and CABG: Patient is being in PCU. Twelve-lead EKG on May 09, 2024 sinus rhythm with sinus arrhythmia. Today's EKG shows slight ST depression in lateral leads, V3-V6 in 1 and aVL. First troponin 43, second 113. Third pending. Serum magnesium and phosphorus normal. Receiving Worker is consulted and discussed. Patient is started on IV heparin drip. Baby aspirin, Plavix, nitroglycerin transdermal as needed for chest pain. Patient on metoprolol 50 mg daily continued. Not candidate for VIDA/ARB because of CKD. Most likely plan continue conservative treatment 2. CAD status post CABG and multiple stents:Patient had cardiac cath in October 2023 reported EF 35%, moderate global hypokinesis, decreased LV systolic function. HEART graft to mid LAD patent. SVG graft to first diagonal patent with moderate disease in body of his stent and immediate post anastomotic site. LM less than 30%. Circumflex mild less than 30%. RCA dominant vessel previously bypassed. Mild diffuse distal disease. Echo in ferritin shows EF 40%. Mild to moderate MR. Left atrium mildly enlarged. 3. Chronic HFrEF: Echo as described above. EF 35%. Patient has chronic leg swelling left more than right. Venous duplex ordered to rule out DVT. On furosemide and spironolactone continued. Patient on guideline medical treatment for heart failure. Chest x-ray does not show acute abnormality 4. Possible polymyalgia rheumatica: No headache jaw clarification. On prednisone 5 mg daily continued. 5. Diabetes mellitus type 2: Accu-Chek before meals and at bedtime with Humalog sliding scale coverage and hypoglycemia protocol. Hold glipizide. Glucose 184. 6. CKD stage IV: BUNs/creatinine 40/2.26, estimated creatinine clearance 18 mL/min. Her creatinine is better than May 09, 2024. Continue diuretics. Mild hyponatremia 135 on baseline due to diuretic. Serum potassium 4.8 normal. Serum magnesium and phosphorus normal range. 7. Chronic gout: On allopurinol continue 8. Hypertension: Blood pressure was elevated 172/96 in the ED. Currently 166/75. Amlodipine 5 mg daily ordered. 9. Suspected UTI: UA LE 500. WBC more than 100 cells. Patient has burning/dysuria. Urine culture pending. Patient was given Cipro 500 mg in the ED 1 dose. Started on ceftriaxone DVT prophylaxis high risk: IV heparin drip. Living will/advanced directive/end of life care: Patient does not have living will or advanced directive. She does not have designated power of attorney recruiter for health but her son and daughter are power of attorney recruiter for health. After discussion of benefits/risks procedures involved with full code, DNR CC arrest and DNR CC, the patient opted for full code. Patient does want artificial life support including intubation, tube feed, ventilator and/chest compression, central venous catheter, vasopressor and DC shock if needed Total time spent in [id number] encounter in discussion of advanced directive 17 minutes. Laboratory Results 06/10/24 08:22: Urine Color Straw, Urine Clarity Cloudy, Urine pH 6.0, Ur Specific [place] 1.015, Urine Protein 30 H, Urine Glucose (UA) Normal, Urine Ketones Negative, Urine Occult Blood 50 H, Urine Nitrite Negative, Urine Bilirubin Negative, Urine Urobilinogen Normal, Ur Leukocyte Esterase 500 H, Urine RBC 25-50 SEEN, Urine WBC >100 SEEN, Ur Squamous Epith Cells 0 SEEN, Urine Bacteria 4+, Urine Mucus 0 SEEN 06/10/24 08:25: WBC 13.7 H, RBC 3.63 L, Hgb 11.5 L, Hct 35.9 L, MCV 98.9, MCH 31.7, MCHC 32.0, RDW Std Deviation 53.3 H, RDW Coeff of Kamar 14.6, Plt Count 323, MPV 10.5, Immature Gran % (Auto) 0.500, Neut % (Auto) 79.6 H, Lymph % (Auto) 14.0 L, [place] % (Auto) 5.0, Eos % (Auto) 0.6, Baso % (Auto) 0.3, Absolute Neuts (auto) 10.9 H, Absolute Lymphs (auto) 1.93, Nucleated RBC % 0, Sodium 135 L, Potassium 4.8, Chloride 104, Carbon Dioxide 25.0, Anion Gap 6, BUN 40 H, Creatinine 2.26 H, Estim Creat Clear Calc 18.31, Est GFR (MDRD) Af Amer 27 L, Est GFR (MDRD) Non-Af 22 L, BUN/Creatinine Ratio 17.7, Glucose 184 H, Calcium 9.1, Troponin I High Sens 43 06/10/24 11:19: Phosphorus 3.1, Magnesium 2.2, Troponin I High Sens 113 H 06/10/24 13:15: PT 13.5, INR 1.0, APTT 26.6 Clinical Impression(s) from Imaging Studies Chest X-Ray 06/10/24 09:11 IMPRESSION: No acute abnormality is seen. Electronically Signed: Brandyn Cheng MD at 10:24 EDT , Charges/Coding Visit Charges Inpatient E&M: 47508 Init Hosp L3 Procedures Hospitalists Procedures: [id number] Advncd Care Plan 30 Min
[2024-06-10 12:48] LABS: Mucous, Urine 0 SEEN /hpf (<or=2+); Squamous Epithelial Cells - UA 0 SEEN /hpf (5-10)
[2024-06-10 12:51] LABS: Magnesium 2.2 mg/dL (1.6-2.6); Phosphorus 3.1 mg/dL (2.5-4.9)
[2024-06-10 12:52] LABS: Color, Urine Straw (Yellow); Glucose, Dipstick Normal (Normal); Ketone-Dipstick Negative (Negative); Leukocyte Esterase-Dipstick 500 /ul (Negative); Nitrite-Dipstick Negative (Negative); Occult Blood-Urine 50 /ul (Negative); Protein-Dipstick 30 mg/dl (Negative); Specific Gravity, Urine 1.015 (1.002-1.030); Urine Bilirubin Dipstick Negative (Negative); Urine Clarity Cloudy (Clear); Urine Urobilinogen Normal (Normal)
[2024-06-10 13:00] LABS: Bacteria 4+ /hpf (None Seen); Red Blood Cells-Urine 25-50 SEEN /hpf (0-5); White Blood Cells >100 SEEN /hpf (0-5)
[2024-06-10] MEDS: HEPARIN/D5w 25,000 UNITS 25,000 UNITS/250 ML IV.SOLN. 11 UNITS CONT INF (13:14)
[2024-06-10] MEDS: Heparin Injection (Vial) 5,000 UNIT/ML VIAL 5000 UNIT IV (13:15)
--- NOTE | 2024-06-10 13:51 | EKG12_ITS ---
Test Reason : CP Blood Pressure : / mmHG Vent. Rate : 086 BPM Atrial Rate : 086 BPM P-R Int : 140 ms QRS Dur : 100 ms QT Int : 382 ms P-R-T Axes : 045 028 112 degrees QTc Int : 457 ms Normal sinus rhythm ST & T wave abnormality, consider lateral ischemia Abnormal ECG When compared with ECG of 10-JUN-2024 08:19, MANUAL COMPARISON REQUIRED, DATA IS UNCONFIRMED Confirmed by ARNALDO DUQUE, DARLENE ([id number]), design editor SUKHDEEP CONTRERAS ([id number]) on 06/15/2024 9:23:04 AM Referred By: Confirmed By:DARLENE MCINTOSH MD
[2024-06-10 14:07] LABS: Prothrombin Time (Protime)PT. 13.5 SECONDS (11.7-14.9)
[2024-06-10 14:08] LABS: Partial Thromboplast Time 26.6 Seconds (24.1-36.2)
--- NOTE | 2024-06-10 15:03 | VDLE_ITS ---
Version 2 Reason For Study: Bilateral leg swelling RIGHT LEFT GSV is absent. GSV is absent. CFV is compressible, spontaneous, phasic, CFV is compressible, spontaneous, phasic, competent and demonstrates normal competent, and demonstrates normal augmentation. augmentation. FV is compressible, spontaneous, phasic, FV is compressible, spontaneous, phasic, competent and demonstrates normal competent and demonstrates normal augmentation. augmentation. POP V is compressible, spontaneous, phasic, POP V is compressible, spontaneous, phasic, competent and demonstrates normal competent and demonstrates normal augmentation. augmentation. T/P Trunk is compressible. T/P Trunk is compressible. PTV is compressible. PTV is compressible. RT PerV is compressible. LT PerV is compressible. Procedure This is a venous duplex using B-mode, color flow and spectral Doppler. Exam performed portable in patient room. A preliminary report was called and/or faxed to [facility]. VL/Venous Duplex US - Scott Extrem Interpretation Summary Deep veins of the bilateral lower extremities are patent and compressible segme ntally. There is no evidence of bilateral lower extremity deep vein thrombosis. Ordering Physician: Presley Avila Referring Physician: Tabatha Diaz Performed By: Lexi Tse RVT
--- NOTE | 2024-06-10 15:35 | PCM.CONS.C ---
Assessment & Plan Assessment/Plan (1) Chest pain: QUALIFIERS: Chest pain type: unspecified Qualified Code(s): R07.9 - Chest pain, unspecified PLAN: Patient has underlying coronary artery disease that could have caused angina in the setting of elevated blood pressure and heart rate. Patient states that someone told her to take her metoprolol once a day. She is on metoprolol to tartrate and we will increase it to 50 mg twice daily. Recommend increasing the amlodipine to 10 mg daily. Will be reasonable to give her 1 dose of IV Lasix while she is in the hospital. No further invasive cardiac workup is required at this time. (2) Elevated troponin: HPI Consult Data Date of Consult: 06/10/24 HPI Narrative Reason for Consultation: Chest pain, elevated troponin HPI Narrative: HILLARY WELLS, is a 79 F who presents with chest pain. Patient states that the chest pain was all across her chest and was moderate in intensity. She is not able to describe if it was pressure-like or sharp. She states that it woke her up from sleep and she took 4 aspirin tablets and then went back to sleep. The pain then returned and she came to the emergency room. In the ER her high-sensitivity troponin was 113. Her chest pain has resolved at this time. Her blood pressure and heart rate were elevated when she presented to the ER. She states that last night as well her systolic blood pressure was in the high 150s and her heart rate was 103. Patient states that when she gets stressed out her blood pressure goes up. Yesterday her daughter underwent surgery at [facility] and she has been stressed out about this. Patient has history of coronary artery disease status post CABG and stents in the past. Her last coronary angiography in October of this year revealed patent HEART to LAD, severe disease in the small diagonal branch beyond the SVG anastomosis. Her RCA stents were patent with mild mild disease in the RCA and RPDA. Her AV groove circumflex stent was patent as well. The diagonal branch was very small and medical treatment was recommended and patient has been doing well on this so far. She does have chronic renal failure with a creatinine of around 2.2. Review of systems: All systems reviewed. 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 Obesity Atherosclerosis of coronary artery bypass graft without angina pectoris Essential hypertension Type 2 diabetes mellitus without complication Vertigo GERD (gastroesophageal reflux disease) Asthma Hyperlipidemia Hypothyroidism Home Medications ?Medication ?Instructions ?Recorded ?Last Taken ?Type montelukast 10 mg tablet 10 mg PO DAILY ASTHMA 12/17/13 06/09/24 History aspirin 81 mg tablet,delayed 81 mg PO QDAY HEART HEALTH 11/19/17 06/10/24 History release cetirizine 10 mg tablet (Zyrtec) 10 mg PO QDAY allergies 02/15/20 06/09/24 History allopurinol 100 mg tablet 100 mg PO DAILY GOUT 11/22/21 06/09/24 History spironolactone 25 mg tablet 25 mg PO BID HEART 08/28/22 06/09/24 History ipratropium 20 mcg-albuterol 100 1 puff inhalation Q6H BREATHING 09/20/22 06/09/24 History mcg/actuation mist for inhalation (Combivent Respimat) ferrous sulfate 325 mg (65 mg 325 mg PO DAILY SUPPLEMENT 10/04/22 06/10/24 History iron) tablet furosemide 40 mg tablet (Lasix) 40 mg PO DAILY diuretic 12/25/22 Unknown History cholecalciferol (vitamin D3) 25 25 mcg PO SUTUTHSA vitamin 06/05/23 06/08/24 History mcg (1,000 unit) tablet levothyroxine 100 mcg tablet 100 mcg PO DAILY THYROID 06/05/23 06/09/24 History metoprolol tartrate 50 mg tablet 50 mg PO DAILY blood pressure 06/05/23 06/09/24 History omeprazole 20 mg capsule,delayed 20 mg PO DAILY reflux 11/04/23 06/09/24 History release ezetimibe 10 mg tablet (Zetia) 10 mg PO DAILY 02/27/24 06/09/24 History prednisone 5 mg tablet 5 mg PO DAILY 02/27/24 06/10/24 History albuterol sulfate 2.5 mg/3 mL 1.25 mg inhalation TID PRN 05/09/24 06/09/24 History (0.083 %) solution for nebulization shortness of breath or wheezing ipratropium bromide 0.02 % 0.5 mg inhalation TID PRN 05/09/24 06/09/24 History solution for inhalation shortness of breath or wheezing biotin 10,000 mcg capsule 10,000 mcg PO DAILY 06/10/24 06/09/24 History folic acid 1 mg tablet 1 mg PO DAILY 06/10/24 06/09/24 History glipizide 2.5 mg tablet, extended 2.5 mg PO BID 06/10/24 06/09/24 History release 24 hr leflunomide 10 mg tablet 5 mg PO DAILY 06/10/24 06/09/24 History Allergy/AdvReac Type Severity Reaction Status Date / Time Anesthetics - Amide Type - Allergy Other Verified 06/10/24 08:13 Select A (Anesthetics - Amide Type) acetaminophen (From Tylenol) AdvReac Severe Other Verified 06/10/24 08:13 pravastatin AdvReac Intermediate Myalgias Verified 06/10/24 08:13 after 15 years of taking cinnamon AdvReac Unknown Unknown Verified 06/10/24 08:13 Penicillins AdvReac Unknown Unknown Verified 06/10/24 08:13 ezetimibe (From Zetia) AdvReac myalgias Verified 06/10/24 08:13 Family History Mother , age 86, advanced age No problems noted. Father Prostate cancer Surgical History History of coronary artery stent placement (01/26/21) H/O coronary artery bypass surgery (10/11/07) Hx of bilateral cataract extraction History of hysterectomy Hx of appendectomy History of cholecystectomy Social History household members: family housing: house Smoking Status: Never smoker alcohol intake: never substance use type: does not use caffeine: Yes Type: carbonated beverages what type of physical activity do you participate in: none seatbelt use: always do you feel safe at home: Yes Physical Exam Const alert and oriented x3 HEENT normocephalic Eyes no scleral icterus Resp Resp Narrative: Bibasal crackles Cardio regular rate Extremity Extremity Narrative: Trace edema on the right lower extremity Skin no rashes or lesions noted Risk Stratification Risk Stratification Applicable: No Charges/Coding Visit Charges Inpatient E&M: 96715 Init Hosp L1 Objective Data Vital Signs: Vital Signs Temp Pulse Resp BP Pulse Ox O2 Del Method 97.9 F 96 21 H 166/75 H 98 Room Air 06/10/24 12:42 06/10/24 12:42 06/10/24 12:42 06/10/24 12:42 06/10/24 14:53 06/10/24 14:53 Oxygen Delivery Method Room Air Weight: 169 lb 8.568 oz Body Mass Index (BMI) 32.0 Lab / Micro Data 06/10/24 08:25 06/10/24 08:25 Labs: Laboratory Results - last 24 hr 06/10/24 08:22: Urine Color Straw, Urine Clarity Cloudy, Urine pH 6.0, Ur Specific [place] 1.015, Urine Protein 30 H, Urine Glucose (UA) Normal, Urine Ketones Negative, Urine Occult Blood 50 H, Urine Nitrite Negative, Urine Bilirubin Negative, Urine Urobilinogen Normal, Ur Leukocyte Esterase 500 H, Urine RBC 25-50 SEEN, Urine WBC >100 SEEN, Ur Squamous Epith Cells 0 SEEN, Urine Bacteria 4+, Urine Mucus 0 SEEN 06/10/24 08:25: WBC 13.7 H, RBC 3.63 L, Hgb 11.5 L, Hct 35.9 L, MCV 98.9, MCH 31.7, MCHC 32.0, RDW Std Deviation 53.3 H, RDW Coeff of Kamar 14.6, Plt Count 323, MPV 10.5, Immature Gran % (Auto) 0.500, Neut % (Auto) 79.6 H, Lymph % (Auto) 14.0 L, [place] % (Auto) 5.0, Eos % (Auto) 0.6, Baso % (Auto) 0.3, Absolute Neuts (auto) 10.9 H, Absolute Lymphs (auto) 1.93, Nucleated RBC % 0, Sodium 135 L, Potassium 4.8, Chloride 104, Carbon Dioxide 25.0, Anion Gap 6, BUN 40 H, Creatinine 2.26 H, Estim Creat Clear Calc 18.31, Est GFR (MDRD) Af Amer 27 L, Est GFR (MDRD) Non-Af 22 L, BUN/Creatinine Ratio 17.7, Glucose 184 H, Calcium 9.1, Troponin I High Sens 43 06/10/24 11:19: Phosphorus 3.1, Magnesium 2.2, Troponin I High Sens 113 H 06/10/24 13:15: PT 13.5, INR 1.0, APTT 26.6 Cardiology Labs/Tests 06/10/24 08:22: Urine Color Straw, Urine Clarity Cloudy, Urine pH 6.0, Ur Specific [place] 1.015, Urine Protein 30 H, Urine Glucose (UA) Normal, Urine Ketones Negative, Urine Occult Blood 50 H, Urine Nitrite Negative, Urine Bilirubin Negative, Urine Urobilinogen Normal, Ur Leukocyte Esterase 500 H, Urine RBC 25-50 SEEN, Urine WBC >100 SEEN 06/10/24 08:25: WBC 13.7 H, RBC 3.63 L, Hgb 11.5 L, Hct 35.9 L, MCV 98.9, MCH 31.7, MCHC 32.0, Plt Count 323, MPV 10.5, Immature Gran % (Auto) 0.500, Neut % (Auto) 79.6 H, Lymph % (Auto) 14.0 L, [place] % (Auto) 5.0, Eos % (Auto) 0.6, Baso % (Auto) 0.3, Absolute Neuts (auto) 10.9 H, Nucleated RBC % 0, Sodium 135 L, Potassium 4.8, Chloride 104, Carbon Dioxide 25.0, Anion Gap 6, BUN 40 H, Creatinine 2.26 H, Est GFR (MDRD) Af Amer 27 L, Est GFR (MDRD) Non-Af 22 L, BUN/Creatinine Ratio 17.7, Glucose 184 H, Calcium 9.1 06/10/24 11:19: Phosphorus 3.1, Magnesium 2.2 06/10/24 13:15: PT 13.5, INR 1.0, APTT 26.6 Rhythm: EKG: ECHO: Stress Test: Cardiac Cath: PCI: CT Surgery: Holter monitor: EPS: PPM: CXR: Chest CT Scan: Radiography Diagnostic Testing: Radiology Impression Chest X-Ray 06/10/24 09:11 IMPRESSION: No acute abnormality is seen. Electronically Signed: Brandyn Cheng MD at 10:24 EDT ,
[2024-06-10 15:58] LABS: Troponin-I HS 187 pg/mL (3.0-54.0)
[2024-06-10] MEDS: Ipratropium 0.5 MG/2.5 ML SOLUTION INHALATION (16:00)
[2024-06-10] MEDS: Ceftriaxone 1 GM/50 ML BAG IV (16:29)
[2024-06-10] MEDS: Metoprolol(XL)Succ 100 MG Tablet PO (16:34)
[2024-06-10] MEDS: Clopidogrel Bisulfate 75 MG Tablet PO (16:34)
[2024-06-10] MEDS: Ciprofloxacin 500 MG Tablet PO (16:41)
[2024-06-10] MEDS: 0.9% Saline Lock 10 ML Syringe IV ×2 (16:41→20:36)
[2024-06-10] MEDS: Furosemide 40 MG/4 ML Vial IV (16:41)
[2024-06-10 19:59] LABS: Partial Thromboplast Time 125.2 Seconds (24.1-36.2)
[2024-06-10] MEDS: Spironolactone 25 MG Tablet 12.5 MG PO (20:35)
[2024-06-10] MEDS: amLODIPine 5 MG Tablet PO (23:28)
[2024-06-11] MEDS: Ipratropium 0.5 MG/2.5 ML SOLUTION INHALATION ×2 (00:56→08:09)
[2024-06-11 01:05] VITALS: PULSE 72; RESP 14; O2SAT 97
--- NOTE | 2024-06-11 01:16 | CPS ---
pt states takes combivent inhaler at home-asked what was given here which is atrovent-pt states feels more sob after aero tx-nurse aware of med at home and pt sob
[2024-06-11 03:36] VITALS: BP 132/60; PULSE 76; RESP 16; TEMP 36.9; O2SAT 99
[2024-06-11 04:18] LABS: Hematocrit 34.1 % (37-47); Hemoglobin 10.6 g/dL (12.0-15.0); Red Blood Count 3.44 M/mm3 (4.2-5.4); White Blood Count 11.9 K/mm3 (4.4-11.0)
[2024-06-11 04:19] LABS: Absolute Lymphocyte Count 3.52 X10^3/uL (0.83-4.51); Absolute Neutrophil Count 7.4 X10^3/uL (2.0-7.7); Basophil# 0.06 X10^3/uL; Basophil% 0.5 % (0-1); Eosinophil# 0.22 X10^3/uL; Eosinophils% 1.8 % (0-5); Lymphocyte # 3.52 X10^3/ul (0.83-4.51); Lymphocyte % 29.6 % (19-41); Mean Corp Hgb Conc 31.1 g/dL (32-36); Mean Corpuscular Hgb 30.8 pg (27.0-32.0); Mean Corpuscular Volume 99.1 fL (81-99); Mean Platelet Vol. 9.9 fl (6.2-12.0); Monocyte# 0.68 X10^3/uL; Monocyte% 5.7 % (0-10); NRBC Flagged by Analyzer 0 % (0-5); Neutrophil # 7.35 X10^3/uL (2.7-7.7); Neutrophil % 61.8 % (47-70); Platelet Count 317 K/mm3 (150-450); RBC Distribution Width CV 14.7 % (11.6-14.6); RBC Distribution Width SD 53.2 fl (35.1-43.9)
[2024-06-11 04:29] LABS: Partial Thromboplast Time 59.7 Seconds (24.1-36.2)
[2024-06-11 04:43] LABS: Anion Gap 6 (5-15); BUN 40 mg/dL (7-18); BUN/Creat Ratio 19.2 RATIO (10-20); Calcium,Total 9.1 mg/dL (8.5-10.1); Chloride 104 mmol/L (98-107); Cholesterol 184 mg/dL (200); Creatinine, Serum 2.08 mg/dL (0.55-1.02); EST Glomerular Filtration Rate 24 mL/min (>60); Est Glom Filt Rate - Afr Amer 29 mL/min (>60); Estimated Creatinine Clearance 20.24 ml/min; Glucose 121 mg/dL (74-106); High Density Lipoprotein 46 mg/dL; Potassium 4.6 mmol/L (3.5-5.1); Sodium Level 135 mmol/L (136-145); Triglycerides 139 mg/dL; Very Low Density Lipoprotein 28 mg/dL (5-40)
[2024-06-11] MEDS: Levothyroxine 100 MCG Tablet PO (06:01)
[2024-06-11 08:09] VITALS: O2SAT 96
[2024-06-11 09:07] VITALS: BP 129/53; PULSE 79; RESP 18; TEMP 36.4; O2SAT 99
[2024-06-11] MEDS: predniSONE 5 MG Tablet PO (09:16)
[2024-06-11] MEDS: Allopurinol 100 MG Tablet PO (09:16)
[2024-06-11] MEDS: Loratadine 10 MG Tablet PO (09:16)
[2024-06-11] MEDS: Ferrous Sulfate 325 MG Tablet PO (09:16)
[2024-06-11] MEDS: Ezetimibe 10 MG Tablet PO (09:16)
[2024-06-11] MEDS: Aspirin E.C. 81 MG Tablet PO (09:16)
[2024-06-11] MEDS: Spironolactone 25 MG Tablet 12.5 MG PO (09:17)
[2024-06-11] MEDS: Montelukast 10 MG Tablet PO (09:17)
[2024-06-11] MEDS: Folic Acid 1 MG Tablet PO (09:17)
[2024-06-11] MEDS: Pantoprazole Sodium 20 MG Tablet PO (09:17)
[2024-06-11 09:18] VITALS: PULSE 79
[2024-06-11] MEDS: Furosemide 40 MG Tablet PO (09:18)
[2024-06-11] MEDS: Metoprolol(XL)Succ 100 MG Tablet PO (09:18)
[2024-06-11] MEDS: Clopidogrel Bisulfate 75 MG Tablet PO (09:24)
[2024-06-11] MEDS: Ceftriaxone 1 GM/50 ML BAG IV (09:24)
[2024-06-11] MEDS: 0.9% Saline Lock 10 ML Syringe IV (11:17)
[2024-06-11 11:41] LABS: Partial Thromboplast Time 48.8 Seconds (24.1-36.2)
--- NOTE | 2024-06-11 12:57 | CASEMGMT ---
WILL LAZO Assessment Face to Face with patient for initial transition planning/care coordination assessment. WILL LAZO introduced self and role at [facility], pt voices understanding. Pt is A&Ox4 and is resting comfortably in bed and is calm. Care providers, pharmacy, and demographics verified. Admitting dx: KARRIE ASHFORD Strata: 3 PCP: Tabatha Diaz Specialists: ELIZABET, Friend (GI), Adelso (Nephro) Preferred Pharmacy: [facility] Insurance: [employer] [facility] Prescription Benefit: Yes LNOK: Gino Marsh (Son), Amy Napier (Yang) Living Arrangements: Pt lives with her daughter, son-in-law, and 2 adult grandsons in a single story home with a flat entrance ADLs/IADLs: Ind Transportation: Pt does not drive. Pt family drives. Denies concerns DME: Working glucometer and sufficient supplies. Grab bars, Cane, FWW, Shower chair, lift chair, and pox. HHC/SNF: Denies HH Hx. States Hx at [facility] and [place] Pt?s goal: Home Plan: Home with family. 6-Click is 20. Pt is ordered and pending. At this time, the pt denies HHC, OP Tx, SNF, CCN, or Pt Link needs. Pt states that she feels safe returning home with her family once she is medically ready and denies further needs at this time. Report given to DIE EQUIPMENT OPERATOR CM. Remi Chavez RN, CM
--- NOTE | 2024-06-11 14:19 | CHAPLAIN ---
Type of Pastoral Visit ___ Initial Visit ___ Follow-up Visit ___ On-call Visit ___ General Patient Visit ___ Spiritual Assessment ___ Family Conference ___ Bereavement ___ Rapid Response ___ Code Blue ___ Other (describe below) Pastoral Care Referral From ___ Patient ___ Family ___ Nurse ___ Physician ___ Aviation Operations Specialist ___ Associate Sales Representative ___ Other (describe below) Sacrament/Intervention ___ Active listening ___ Anointing ___ Caodaism ___ Bereavement ___ Communion ___ Maryan exploration ___ ___ Life review ___ Prayer ___ Reconciliation ___ Sacrament of Sick ___ Supportive presence ___ Wedding ___ Other (describe below) Pastoral Comments two attempts made to visit this patient and both times (am and pm) the patient was in the bathroom and unavailable
--- NOTE | 2024-06-11 14:53 | DCINST_ITS ---
Discharge Instructions Diet Discharge Diet: 2000 mg Sodium Diet Activity Discharge Activity: Return to Normal Activity Weight Bearing Status: Weight bearing as tolerated Dressing / Incision Call your doctor if you observe: Fever of 101 or Higher, Coldness, Increased Pain, Numbness or Tingling, Change in Color, Inability to urinate, Inability to have a bowel movement, Shortness of breath, Dizziness, Fainting spells, Swelling in the ankles, Chest pain, Prolonged hiccupping, Increased palpitations (irregular heartbeat) and Calf discomfort Follow Up Care When: IN 2 WEEKS Test Results: Test results from this visit will be discussed in further detail at your follow- up appointment, if applicable. Discharge Plan Admission Admit Date/Time: 06/10/24 12:21 Attending Provider: Presley Avila Primary Care Provider: Tabatha Diaz Consulting Providers: Vignesh Graham Instructions Additional Instructions / Restrictions: Advised Discharge Orders/Prescriptions Prescriptions: New amlodipine 5 mg Tablet 5 mg PO Q24H 30 Days Qty: 30 1RF Rx Instructions: Hold for SBP less than 130 mmHg levothyroxine 112 mcg tablet 112 mcg PO DAILY 30 Days Qty: 30 2RF metoprolol succinate 100 mg Tablet Extended Release 24 Hr 100 mg PO DAILY 30 Days Qty: 30 2RF Rx Instructions: Hold for heart less than 50 or systolic blood pressure less than 100 mmHg. Continued aspirin 81 mg tablet,delayed release (DR/EC) 81 mg PO QDAY cetirizine [Zyrtec] 10 mg tablet 10 mg PO QDAY allopurinol 100 mg tablet 100 mg PO DAILY furosemide [Lasix] 40 mg tablet 40 mg PO DAILY cholecalciferol (vitamin D3) 25 mcg (1,000 unit) tablet [facility] spironolactone 25 mg tablet 25 mg PO BID ferrous sulfate 325 mg (65 mg iron) tablet 325 mg PO DAILY prednisone 5 mg tablet 5 mg PO DAILY ezetimibe [Zetia] 10 mg tablet 10 mg PO DAILY montelukast 10 MG tablet 10 mg PO DAILY Combivent Respimat 20-100 mcg/actuation mist 1 puff INHALATION Q6H Patient Comments: PT STATES SHE ONLY USED APPROX 3 TIMES A DAY omeprazole 20 mg capsule,delayed release(DR/EC) 20 mg PO DAILY albuterol sulfate 2.5 mg /3 mL (0.083 %) solution for nebulization 1.25 mg inhalation TID PRN (Reason: shortness of breath or wheezing) ipratropium bromide 0.02 % solution 0.5 mg inhalation TID PRN (Reason: shortness of breath or wheezing) leflunomide 10 mg tablet 5 mg PO DAILY glipizide 2.5 mg tablet extended release 24hr 2.5 mg PO BID folic acid 1 mg tablet 1 mg PO DAILY biotin 10,000 mcg capsule 10,000 mcg PO DAILY Discontinued levothyroxine 100 mcg tablet 100 mcg PO DAILY metoprolol tartrate 50 mg tablet 50 mg PO DAILY Referrals / Follow Up: Tabatha Diaz MD [Primary Care Provider] - Within 2 Weeks (Levothyroxine dose increased 212 mcg per daily. TSH was high) Laura Roa [employer], [employer] [Non-Staff -Ordering Privileges] - Within 2 Weeks Disposition Disposition (needs filled in before D/C Order can be placed): Home, Self Care
--- NOTE | 2024-06-11 15:00 | DS.PCM_ITS ---
Providers Date of Admission: 06/10/24 Date of Discharge: 06/11/24 Primary Care Physician: Dr. Tabatha Diaz MD Consultations 06/10/24 13:51 Consult: Cardiology Routine Consulting Provider: Vignesh Graham Reason for Consult: Chest Pain EMERGENT Consult: No MD Notified: Yes Date Notified: 06/10/24 Time Notified: 12:23 Method of Notification: ED Physician Initiated Reason For Visit: CHEST PAIN Diagnosis Discharge Diagnosis (1) Chest pain: Status: Acute Code(s): R07.9 - Chest pain, unspecified Qualifiers: Chest pain type: unspecified Qualified Code(s): R07.9 - Chest pain, unspecified (2) Elevated troponin: Status: Acute Code(s): R79.89 - Other specified abnormal findings of blood chemistry Plan This 79-year-old female is being admitted for evaluation of chest pain that woke her up twice in the morning concern of possible unstable angina/non-STEMI 1. Possible unstable angina/non-STEMI with history of CAD, multiple stents and CABG: Patient is being in PCU. Twelve-lead EKG on May 09, 2024 sinus rhythm with sinus arrhythmia. Today's EKG shows slight ST depression in lateral leads, V3-V6 in 1 and aVL. First troponin 43, second 113. Third pending. Serum magnesium and phosphorus normal. Trimming Caser is consulted and discussed. Patient is started on IV heparin drip. Baby aspirin, Plavix, nitroglycerin transdermal as needed for chest pain. Patient on metoprolol 50 mg daily continued. Not candidate for WILL/ARB because of CKD. Most likely plan continue conservative treatment 06/11: Patient was evaluated by permit coordinator yesterday and today. Troponin is mildly increased 43, 113 and 187 suggestive of mild non-STEMI. Her medication is optimized. Her home medication metoprolol tartrate 50 mg once daily changed to metoprolol succinate 100 mg daily. Amlodipine 5 mg daily started. Continue baby aspirin. Plavix discontinued as patient high risk of bleeding. Follow-up cardiology office with Crispin Sanchez NP. Patient is discharged home on optimized medications Patient on levothyroxine 100 mcg daily. TSH high 7.44. Free T4 ordered. Levothyroxine dose increased to 112 mcg daily. 2. CAD status post CABG and multiple stents:Patient had cardiac cath in October 2023 reported EF 35%, moderate global hypokinesis, decreased LV systolic function. HEART graft to mid LAD patent. SVG graft to first diagonal patent with moderate disease in body of his stent and immediate post anastomotic site. LM less than 30%. Circumflex mild less than 30%. RCA dominant vessel previously bypassed. Mild diffuse distal disease. Echo in October 2023 shows EF 40%. Mild to moderate MR. Left atrium mildly enlarged. 3. Chronic HFrEF: Echo as described above. EF 35%. Patient has chronic leg swelling left more than right. Venous duplex ordered to rule out DVT. On furosemide and spironolactone continued. Patient on guideline medical treatment for heart failure. Chest x-ray does not show acute abnormality 4. Possible polymyalgia rheumatica: No headache jaw clarification. On prednisone 5 mg daily continued. 5. Diabetes mellitus type 2: Accu-Chek before meals and at bedtime with Humalog sliding scale coverage and hypoglycemia protocol. Hold glipizide. Glucose 184. 06/11 glucoses reasonably well-controlled. 6. CKD stage IV: BUNs/creatinine 40/2.26, estimated creatinine clearance 18 mL/min. Her creatinine is better than May 09, 2024. Continue diuretics. Mild hyponatremia 135 on baseline due to diuretic. Serum potassium 4.8 normal. Serum magnesium and phosphorus normal range. 06/11: Patient is not candidate for WILL or ARB because of CKD 7. Chronic gout: On allopurinol continue 8. Hypertension: Blood pressure was elevated 172/96 in the ED. Currently 166/75. Amlodipine 5 mg daily ordered. 06/11: Patient's blood pressure is controlled. Currently in 120s therefore amlodipine 5 mg started yesterday continued 9. Abnormal UA, UTI ruled out, mild asymptomatic bacteriuria: UA LE 500. WBC more than 100 cells. Patient has burning/dysuria. Urine culture pending. Patient was given Cipro 500 mg in the ED 1 dose. Started on ceftriaxone 06/11: Urine culture shows mixed gram-positive organism. UTI ruled out. Antibiotic not indicated DVT prophylaxis high risk: IV heparin drip. Heparin drip was discussed Living will/advanced directive/end of life care: Patient does not have living will or advanced directive. She does not have designated power of senior trial attorney for health but her son and daughter are power of senior trial attorney for health. After discussion of benefits/risks procedures involved with full code, DNR CC arrest and DNR CC, the patient opted for full code. Patient does want artificial life support including intubation, tube feed, ventilator and/chest compression, central venous catheter, vasopressor and DC shock if needed Total time spent in [id number] encounter in discussion of advanced directive 17 minutes. Laboratory Results 06/10/24 08:22: Urine Color Straw, Urine Clarity Cloudy, Urine pH 6.0, Ur Specific Blevins 1.015, Urine Protein 30 H, Urine Glucose (UA) Normal, Urine Ketones Negative, Urine Occult Blood 50 H, Urine Nitrite Negative, Urine Bilirubin Negative, Urine Urobilinogen Normal, Ur Leukocyte Esterase 500 H, Urine RBC 25-50 SEEN, Urine WBC >100 SEEN, Ur Squamous Epith Cells 0 SEEN, Urine Bacteria 4+, Urine Mucus 0 SEEN 06/10/24 08:25: WBC 13.7 H, RBC 3.63 L, Hgb 11.5 L, Hct 35.9 L, MCV 98.9, MCH 31.7, MCHC 32.0, RDW Std Deviation 53.3 H, RDW Coeff of Kamar 14.6, Plt Count 323, MPV 10.5, Immature Gran % (Auto) 0.500, Neut % (Auto) 79.6 H, Lymph % (Auto) 14.0 L, Lucas % (Auto) 5.0, Eos % (Auto) 0.6, Baso % (Auto) 0.3, Absolute Neuts (auto) 10.9 H, Absolute Lymphs (auto) 1.93, Nucleated RBC % 0, Sodium 135 L, Potassium 4.8, Chloride 104, Carbon Dioxide 25.0, Anion Gap 6, BUN 40 H, C reatinine 2.26 H, Estim Creat Clear Calc 18.31, Est GFR (MDRD) Af Amer 27 L, Est GFR (MDRD) Non-Af 22 L, BUN/Creatinine Ratio 17.7, Glucose 184 H, Calcium 9.1, Troponin I High Sens 43 06/10/24 11:19: Phosphorus 3.1, Magnesium 2.2, Troponin I High Sens 113 H 06/10/24 13:15: PT 13.5, INR 1.0, APTT 26.6 Clinical Impression(s) from Imaging Studies Chest X-Ray 06/10/24 09:11 IMPRESSION: No acute abnormality is seen. Electronically Signed: Brandyn Cheng MD at 10:24 EDT , Medications at Discharge Home Medications montelukast 10 mg tablet 10 mg PO DAILY ASTHMA 12/17/13 aspirin 81 mg tablet,delayed release 81 mg PO QDAY HEART HEALTH 11/19/17 cetirizine 10 mg tablet (Zyrtec) 10 mg PO QDAY allergies 02/15/20 allopurinol 100 mg tablet 100 mg PO DAILY GOUT 11/22/21 spironolactone 25 mg tablet 25 mg PO BID HEART 08/28/22 ipratropium 20 mcg-albuterol 100 mcg/actuation mist for inhalation (Combivent Respimat) 1 puff inhalation Q6H BREATHING 09/20/22 ferrous sulfate 325 mg (65 mg iron) tablet 325 mg PO DAILY SUPPLEMENT 10/04/22 furosemide 40 mg tablet (Lasix) 40 mg PO DAILY diuretic 12/25/22 cholecalciferol (vitamin D3) 25 mcg (1,000 unit) tablet 25 mcg PO SUTUTHSA vitamin 06/05/23 omeprazole 20 mg capsule,delayed release 20 mg PO DAILY reflux 11/04/23 ezetimibe 10 mg tablet (Zetia) 10 mg PO DAILY 02/27/24 prednisone 5 mg tablet 5 mg PO DAILY 02/27/24 albuterol sulfate 2.5 mg/3 mL (0.083 %) solution for nebulization 1.25 mg inhalation TID PRN shortness of breath or wheezing 05/09/24 ipratropium bromide 0.02 % solution for inhalation 0.5 mg inhalation TID PRN shortness of breath or wheezing 05/09/24 biotin 10,000 mcg capsule 10,000 mcg PO DAILY 06/10/24 folic acid 1 mg tablet 1 mg PO DAILY 06/10/24 glipizide 2.5 mg tablet, extended release 24 hr 2.5 mg PO BID 06/10/24 leflunomide 10 mg tablet 5 mg PO DAILY 06/10/24 amlodipine 5 mg tablet 5 mg PO Q24H 30 days #30 tabs 06/11/24 levothyroxine 112 mcg tablet 112 mcg PO DAILY 1 month #30 tabs 06/11/24 metoprolol succinate 100 mg tablet,extended release 24 hr 100 mg PO DAILY 30 days #30 tabs 06/11/24 Physical Exam Narrative Seen and examined. Patient had uneventful night. No further chest pain or shortness of breath. She is comfortable on baseline. Wants to go home. wardrobe coordinator shows sinus rhythm 81 bpm. Physical exam: General: Alert, Oriented x3, Cooperative HEENT: Atraumatic, PERRLA, EOMI, Normocephalic Oral: No Gingival or Mucosal Lesions/ Ulcerations Neck: Supple, No JVD, Negative Carotid Bruits Chest wall/Lungs: Air entry diminished in bilateral lung bases. No crepitation/rhonchi Cardiovascular: Sinus tachycardia, normal S1, Normal S2, had 6 vessel CABG. Systolic murmur. Abdomen: Bowel Sounds Present, Soft, Non Tender, Non-Distended : No dysuria. No renal angle tenderness. No suprapubic tenderness. Extremities: Chronic right leg edema more than left leg after saphenous vein graft taken from right lower extremity for CABG. Capillary Refill Less than 3 Seconds Skin: No rashes, No breakdown Musculoskeletal: No Tenderness to Palpation of Joints or Extremities Neurological: Cranial nerves II-XII grossly intact, DTR 2+/4. No acute focal neurological deficit. Psych/Mental Status: Normal Affect, Appropriate. Weight / BMI Weight Weight: 169 lb 8.568 oz Body Mass Index (BMI) 32.0 ABG / Lab / Microbiology Data 06/11/24 04:00 06/11/24 04:00 Laboratory: Laboratory Results - last 24 hr 06/10/24 15:02: Troponin I High Sens 187 H* 06/10/24 19:11: APTT 125.2 H* 06/11/24 04:00: WBC 11.9 H, RBC 3.44 L, Hgb 10.6 L, Hct 34.1 L, MCV 99.1 H, MCH 30.8, MCHC 31.1 L, RDW Std Deviation 53.2 H, RDW Coeff of Kamar 14.7 H, Plt Count 317, MPV 9.9, Immature Gran % (Auto) 0.600, Neut % (Auto) 61.8, Lymph % (Auto) 29.6, Lucas % (Auto) 5.7, Eos % (Auto) 1.8, Baso % (Auto) 0.5, Absolute Neuts (auto) 7.4, Absolute Lymphs (auto) 3.52, Nucleated RBC % 0, APTT 59.7 H, Sodium 135 L, Potassium 4.6, Chloride 104, Carbon Dioxide 25.0, Anion Gap 6, BUN 40 H, Creatinine 2.08 H, Estim Creat Clear Calc 20.24, Est GFR (MDRD) Af Amer 29 L, E st GFR (MDRD) Non-Af 24 L, BUN/Creatinine Ratio 19.2, Glucose 121 H, Calcium 9.1, Triglycerides 139, Cholesterol 184, LDL Cholesterol 110, VLDL Cholesterol 28, HDL Cholesterol 46, TSH 7.440 H 06/11/24 11:13: APTT 48.8 H Microbiology: Microbiology 06/10/24 08:22 Urine, Clean Catch Urine Culture - Final Mixed Gram Positive Organisms Radiography Diagnostic Testing: Radiology Impression Venous Doppler Study 06/10/24 15:03 Interpretation Summary Deep veins of the bilateral lower extremities are patent and compressible segmentally. There is no evidence of bilateral lower extremity deep vein thrombosis. Ordering Physician: Presley Avila Referring Physician: Tabatha Diaz Performed By: Lexi Tse RVT D/C Instructions Discharge Diet: 2000 mg Sodium Diet Weight Bearing Status: Weight bearing as tolerated Call your doctor if you observe: Fever of 101 or Higher, Coldness, Increased Pain, Numbness or Tingling, Change in Color, Inability to urinate, Inability to have a bowel movement, Shortness of breath, Dizziness, Fainting spells, Swelling in the ankles, Chest pain, Prolonged hiccupping, Increased palpitations (irregular heartbeat) and Calf discomfort When: IN 2 WEEKS Meaningful Use Info Meaningful Use Meaningful Use Diagnoses (Choose all that apply): AMI AMI/Post PCI/Angioplasty Aspirin given w/in 24hrs of arrival?: Yes ASA at discharge?: Yes Statins at discharge?: No Reason statins not ordered:: Allergy Will/ARB at discharge?: No Reason Will/ARB not ordered:: Worsening renal function Beta Bernie at discharge?: Yes Done w/ Acute OR measure.: Yes Ischemic Stroke Statin Dosing Therapy Reference: STATIN DOSE THERAPY REFERENCE: * Patients > 75 years receive moderate or high dose statin therapy. * Patients 75 years or YOUNGER should receive HIGH intensity statin dose unless contraindicated. You will be required to document reason for non-treatment if statin daily dose does not meet guidelines. HIGH DOSE STATIN THERAPY DAILY Atorvastatin > than or = to 40 mg Rosuvastatin > than or = to 20 mg Amlodipine + Atorvastatin > than or = to 2.5/40 mg Ezetimibe + Simvastatin 10/80 mg Simvastatin 80mg Discharge Plan Admission Admit Date/Time: 06/10/24 12:21 Attending Provider: Presley Avila Primary Care Provider: Tabatha Diaz Consulting Providers: Vignesh Graham Instructions Additional Instructions / Restrictions: Advised Discharge Orders/Prescriptions Prescriptions: New amlodipine 5 mg Tablet 5 mg PO Q24H 30 Days Qty: 30 1RF Rx Instructions: Hold for SBP less than 130 mmHg levothyroxine 112 mcg tablet 112 mcg PO DAILY 30 Days Qty: 30 2RF metoprolol succinate 100 mg Tablet Extended Release 24 Hr 100 mg PO DAILY 30 Days Qty: 30 2RF Rx Instructions: Hold for heart less than 50 or systolic blood pressure less than 100 mmHg. Continued aspirin 81 mg tablet,delayed release (DR/EC) 81 mg PO QDAY cetirizine [Zyrtec] 10 mg tablet 10 mg PO QDAY allopurinol 100 mg tablet 100 mg PO DAILY furosemide [Lasix] 40 mg tablet 40 mg PO DAILY cholecalciferol (vitamin D3) 25 mcg (1,000 unit) tablet 25 mcg PO SUTUTHSA spironolactone 25 mg tablet 25 mg PO BID ferrous sulfate 325 mg (65 mg iron) tablet 325 mg PO DAILY prednisone 5 mg tablet 5 mg PO DAILY ezetimibe [Zetia] 10 mg tablet 10 mg PO DAILY montelukast 10 MG tablet 10 mg PO DAILY Combivent Respimat 20-100 mcg/actuation mist 1 puff INHALATION Q6H Patient Comments: PT STATES SHE ONLY USED APPROX 3 TIMES A DAY omeprazole 20 mg capsule,delayed release(DR/EC) 20 mg PO DAILY albuterol sulfate 2.5 mg /3 mL (0.083 %) solution for nebulization 1.25 mg inhalation TID PRN (Reason: shortness of breath or wheezing) ipratropium bromide 0.02 % solution 0.5 mg inhalation TID PRN (Reason: shortness of breath or wheezing) leflunomide 10 mg tablet 5 mg PO DAILY glipizide 2.5 mg tablet extended release 24hr 2.5 mg PO BID folic acid 1 mg tablet 1 mg PO DAILY biotin 10,000 mcg capsule 10,000 mcg PO DAILY Discontinued levothyroxine 100 mcg tablet 100 mcg PO DAILY metoprolol tartrate 50 mg tablet 50 mg PO DAILY Referrals / Follow Up: Tabatha Diaz MD [Primary Care Provider] - Within 2 Weeks (Levothyroxine dose increased 212 mcg per daily. TSH was high) Laura Roa NP, [employer] [Non-Staff -Ordering Privileges] - Within 2 Weeks Disposition Disposition (needs filled in before D/C Order can be placed): Home, Self Care Charges/Coding Visit Charges Inpatient E&M: 79723 Disch Hosp >30min
[2024-06-11 15:07] VITALS: BP 120/63; PULSE 80; RESP 18; TEMP 36.4; O2SAT 98
--- NOTE | 2024-06-11 15:41 | PHA.DC_ITS ---
Pharmacy [facility] has performed discharge medication reconciliation and counseling for this patient. The patient's discharge medication list was reviewed for discrepancies and discrepancies were resolved. The patient was counseled on the following discharge medications and changes in medications for homegoing were reviewed. The Reason for Use, instructions for use, and potential side effects were reviewed for all new medications. The patient's questions regarding all of their medications were answered. 1. Amlodipine 5 mg PO daily 2. Metoprolol succinate 100 mg PO daily 3. Levothyroxine 112 mcg PO daily. The patient was able to verbally demonstrate an understanding of their discharge medications. Medications at Discharge Home Medications montelukast 10 mg tablet 10 mg PO DAILY ASTHMA 12/17/13 aspirin 81 mg tablet,delayed release 81 mg PO QDAY HEART HEALTH 11/19/17 cetirizine 10 mg tablet (Zyrtec) 10 mg PO QDAY allergies 02/15/20 allopurinol 100 mg tablet 100 mg PO DAILY GOUT 11/22/21 spironolactone 25 mg tablet 25 mg PO BID HEART 08/28/22 ipratropium 20 mcg-albuterol 100 mcg/actuation mist for inhalation (Combivent Respimat) 1 puff inhalation Q6H BREATHING 09/20/22 ferrous sulfate 325 mg (65 mg iron) tablet 325 mg PO DAILY SUPPLEMENT 10/04/22 furosemide 40 mg tablet (Lasix) 40 mg PO DAILY diuretic 12/25/22 cholecalciferol (vitamin D3) 25 mcg (1,000 unit) tablet 25 mcg PO [facility] vitamin 06/05/23 omeprazole 20 mg capsule,delayed release 20 mg PO DAILY reflux 11/04/23 ezetimibe 10 mg tablet (Zetia) 10 mg PO DAILY 02/27/24 prednisone 5 mg tablet 5 mg PO DAILY 02/27/24 albuterol sulfate 2.5 mg/3 mL (0.083 %) solution for nebulization 1.25 mg inhalation TID PRN shortness of breath or wheezing 05/09/24 ipratropium bromide 0.02 % solution for inhalation 0.5 mg inhalation TID PRN shortness of breath or wheezing 05/09/24 biotin 10,000 mcg capsule 10,000 mcg PO DAILY 06/10/24 folic acid 1 mg tablet 1 mg PO DAILY 06/10/24 glipizide 2.5 mg tablet, extended release 24 hr 2.5 mg PO BID 06/10/24 leflunomide 10 mg tablet 5 mg PO DAILY 06/10/24 amlodipine 5 mg tablet 5 mg PO Q24H 30 days #30 tabs 06/11/24 levothyroxine 112 mcg tablet 112 mcg PO DAILY 1 month #30 tabs 06/11/24 metoprolol succinate 100 mg tablet,extended release 24 hr 100 mg PO DAILY 30 days #30 tabs 06/11/24
[2024-06-11 15:51] LABS: T4 Free Direct 1.21 ng/dL (0.76-1.46)
== END 2024-06-11 17:05 | disposition home or self-care (01) | DRG 281 ==
LOC: ED 13:09 → PCU 13:22
PROVIDERS: Admitting Provider Internal Medicine; Emergency Provider Emergency Medicine; PCP Internal Medicine; Visit Provider Internal Medicine
DX: I21.4 Non-ST elevation (NSTEMI) myocardial infarction (principal); E87.1 Hypo-osmolality and hyponatremia; I42.9 Cardiomyopathy, unspecified; I13.0 Hypertensive heart and chronic kidney disease with heart failure and stage 1 through stage 4 chronic kidney disease, or unspecified chronic kidney disease; N18.4 Chronic kidney disease, stage 4 (severe); I50.22 Chronic systolic (congestive) heart failure; E11.22 Type 2 diabetes mellitus with diabetic chronic kidney disease; D64.9 Anemia, unspecified; E78.5 Hyperlipidemia, unspecified; Z66 Do not resuscitate; Z51.5 Encounter for palliative care; J44.9 Chronic obstructive pulmonary disease, unspecified; I34.0 Nonrheumatic mitral (valve) insufficiency; M35.3 Polymyalgia rheumatica; I49.8 Other specified cardiac arrhythmias; I25.10 Atherosclerotic heart disease of native coronary artery without angina pectoris; M1A.9XX0 Chronic gout, unspecified, without tophus (tophi); Z86.16 Personal history of COVID-19; Z90.710 Acquired absence of both cervix and uterus; Z79.84 Long term (current) use of oral hypoglycemic drugs; Z95.5 Presence of coronary angioplasty implant and graft; Z79.890 Hormone replacement therapy; Z79.82 Long term (current) use of aspirin
CPT/HCPCS: 36415; 71045; 80048; 80061; 81001; 83735; 84100; 84439; 84443; 84484; 85025; 85610; 85730; 87086; 87088; 93005; 93970; 94640; 94668; 97162; 97165; 99285; A4216; J1940

== ENCOUNTER 2024-11-15 11:41 | Observation (INO) | payer MEDICARE, SELFPAY ==
[2021-03-16 09:07] VITALS: BMI 39.2
[2024-11-15] VITALS (18 sets, daily range): BP systolic 126–153; BP diastolic 48–75; PULSE 67–91; RESP 16–24; TEMP 36.1–36.7; O2SAT 93–100; BMI 31.0; BMI 30.5
--- NOTE | 2024-11-15 | HERN_PTH ---
PATIENT: HILLARY WELLS LOC: MS3 U#:[id number] AGE/SX: 79/F ROOM: [facility] [place] RE11/15/[address]: Dr. Juancho Mendoza MD : 1945 BED: 1 DIS: 11/17/2024 SPEC #: [id number] RECD: 11/15/24 18:16 STATUS: SHORTY QUIÑONES #: [id number] SANDRITA: 11/15/24 00:[address]: Juancho Mendoza DEPT: SURGICAL PATHOLOGY RECD BY: Abbe Singh ENTERED: 11/16/24 07:39 SP TYPE: Hernia OTHR DR: Dr. Tabatha Diaz MD Tissues: HERNIA Procedures: Surgery Specimen Level II HEADER OPERATION: Hernia, ventral repair PRE-OP DIAGNOSIS: Incarcerated abdominal hernia TISSUE SUBMITTED: Hernia sac MICROSCOPIC DIAGNOSIS HERNIA SAC, EXCISION: * Fibroadipose tissue with reactive changes, partially covered by mesothelium. MICROSCOPIC DESCRIPTION Slides are reviewed. GROSS DESCRIPTION The specimen is received in one container labeled with the patient's name, accession number and designated hernia sac. The specimen consists of 1 irregularly-shaped segment of yellow fatty tissue measuring 19 x 6 x 2.5 cm. Approximately half of it is covered with a thin semitransparent purple-alfaro membrane with focal adhesions. Sectioning reveals unremarkable yellow fatty tissue throughout. RS1. 11/16/24. CPT: 02664
--- NOTE | 2024-11-15 12:00 | EX.ED.DYSGE1 ---
HPI <LAYNE Curry - Last Filed: 11/15/24 17:39> History of Present Illness Chief Complaint: Abd Pain Narrative Narrative: 79-year-old female with PMH of HTN, HLD, COPD, DM2, CHF, hypothyroidism, multiple abdominal surgeries presents with 3 days of abdominal pain. It started as generalized abdominal pain and then moved to the periumbilical and lower abdomen. She has nausea and decreased appetite but no vomiting. She has not had a bowel movement in 4 to 5 days. She states she usually only goes every few days but this is longer than usual. She took 2 doses of Senokot. She is passing gas. She has a history of cholecystectomy, appendectomy, hernia repair, tubal ligation, and hysterectomy. No history of bowel obstruction. She states she has felt a hernia in her abdomen for years but now it is painful. 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 Obesity Atherosclerosis of coronary artery bypass graft without angina pectoris Essential hypertension Type 2 diabetes mellitus without complication Vertigo GERD (gastroesophageal reflux disease) Asthma Hyperlipidemia Hypothyroidism Home Medications ?Medication ?Instructions ?Recorded ?Last Taken ?Type montelukast 10 mg tablet 10 mg PO DAILY PRN ASTHMA 12/17/13 11/13/24 History aspirin 81 mg tablet,delayed 81 mg PO DAILY HEART HEALTH 11/19/17 11/13/24 History release cetirizine 10 mg tablet (Zyrtec) 10 mg PO DAILY PRN allergies 02/15/20 06/09/24 History allopurinol 100 mg tablet 100 mg PO DAILY GOUT 11/22/21 11/13/24 History ipratropium 20 mcg-albuterol 100 1 puff inhalation Q6H BREATHING 09/20/22 11/13/24 History mcg/actuation mist for inhalation (Combivent Respimat) ferrous sulfate 325 mg (65 mg 325 mg PO DAILY SUPPLEMENT 10/04/22 11/13/24 History iron) tablet furosemide 40 mg tablet (Lasix) 40 mg PO DAILY diuretic 12/25/22 11/13/24 History cholecalciferol (vitamin D3) 25 25 mcg PO SUTUTHSA vitamin 06/05/23 11/13/24 History mcg (1,000 unit) tablet omeprazole 20 mg capsule,delayed 20 mg PO DAILY reflux 11/04/23 11/13/24 History release ezetimibe 10 mg tablet (Zetia) 10 mg PO DAILY 02/27/24 11/13/24 History prednisone 5 mg tablet 5 mg PO DAILY 02/27/24 11/13/24 History albuterol sulfate 2.5 mg/3 mL 1.25 mg inhalation TID PRN 05/09/24 11/15/24 History (0.083 %) solution for nebulization shortness of breath or wheezing ipratropium bromide 0.02 % 0.5 mg inhalation TID PRN 05/09/24 11/13/24 History solution for inhalation shortness of breath or wheezing biotin 10,000 mcg capsule 10,000 mcg PO DAILY 06/10/24 11/13/24 History folic acid 1 mg tablet 1 mg PO DAILY 06/10/24 11/13/24 History glipizide 2.5 mg tablet, extended 2.5 mg PO BID 06/10/24 11/13/24 History release 24 hr amlodipine 5 mg tablet 5 mg PO DAILY 08/25/24 11/13/24 History spironolactone 25 mg tablet 25 mg PO QDAY HEART 08/25/24 11/13/24 History levothyroxine 100 mcg tablet 100 mcg PO DAILY 11/15/24 11/13/24 History metoprolol tartrate 50 mg tablet 50 mg PO DAILY 11/15/24 11/13/24 History Allergy/AdvReac Type Severity Reaction Status Date / Time Anesthetics - Amide Type - Allergy Other Verified 08/25/24 15:01 Select A (Anesthetics - Amide Type) acetaminophen (From Tylenol) AdvReac Severe Other Verified 08/25/24 15:01 pravastatin AdvReac Intermediate Myalgias Verified 08/25/24 15:01 after 15 years of taking cinnamon AdvReac Unknown Unknown Verified 08/25/24 15:01 Penicillins AdvReac Unknown Unknown Verified 08/25/24 15:01 ezetimibe (From Zetia) AdvReac myalgias Verified 08/25/24 15:01 leflunomide AdvReac Chest Verified 08/25/24 15:04 tightness Family History Mother , age 86, advanced age No problems noted. Father Prostate cancer Surgical History History of coronary artery stent placement (01/26/21) H/O coronary artery bypass surgery (10/11/07) Hx of bilateral cataract extraction History of hysterectomy Hx of appendectomy History of cholecystectomy Social History household members: family housing: house Smoking Status: Never smoker alcohol intake: never substance use type: does not use caffeine: Yes Type: carbonated beverages what type of physical activity do you participate in: none seatbelt use: always do you feel safe at home: Yes ROS <LAYNE Curry - Last Filed: 11/15/24 17:39> ROS ED ROS Narrative Constitutional: Negative for fever, chills, malaise.. GI: Positive for nausea, abdominal pain, constipation. : Negative for dysuria, hematuria or frequency. EXAM <LAYNE Curry - Last Filed: 11/15/24 17:39> Physical Exam Narrative Exam Narrative: CONST: Patient sitting in no acute distress. EYES: Normal inspection. NECK: Normal inspection. RESP: No respiratory distress, CTAB. CVS: Regular rate and rhythm, no murmur, no gallop. ABD: Firm palpable hernia right lower abdomen that is not reducible. Otherwise abdomen is soft and nontender. No peritoneal signs. SKIN: Color normal, no rash, warm, dry, intact. EXTREMITIES: Normal appearance, no pedal edema. NEURO: Alert and answering questions appropriately. PSYCH: Normal affect. Const Vital Signs: 11/15/24 11:41 11/15/24 13:09 11/15/24 14:20 Temperature 97.8 F 98.1 F 98 F Temperature Source Temporal Oral Pulse Rate 78 69 68 Respiratory Rate 16 16 18 Blood Pressure 127/65 H 140/52 H 141/48 H Blood Pressure Mean 85 81 79 Pulse Ox 100 100 99 Oxygen Delivery Method Room Air Room Air 11/15/24 14:42 11/15/24 15:37 Temperature 98 F Temperature Source Pulse Rate 67 67 Respiratory Rate 16 16 Blood Pressure 141/48 H Blood Pressure Mean Pulse Ox 99 Oxygen Delivery Method <Dr. Alphonso Brandon DO - Last Filed: 11/15/24 22:40> Physical Exam Const Vital Signs: 11/15/24 11:41 11/15/24 13:09 11/15/24 14:20 Temperature 97.8 F 98.1 F 98 F Temperature Source Temporal Oral Pulse Rate 78 69 68 Respiratory Rate 16 16 18 Blood Pressure 127/65 H 140/52 H 141/48 H Blood Pressure Mean 85 81 79 Pulse Ox 100 100 99 Oxygen Delivery Method Room Air Room Air 11/15/24 14:42 11/15/24 15:37 Temperature 98 F Temperature Source Pulse Rate 67 67 Respiratory Rate 16 16 Blood Pressure 141/48 H Blood Pressure Mean Pulse Ox 99 Oxygen Delivery Method MDM <LAYNE Curry - Last Filed: 11/15/24 17:39> [facility] Narrative Medical decision making narrative: History gathered from: Patient and her daughter Differential includes but not limited to constipation, obstruction, diverticulitis Consults: General Surgery 79-year-old female presents with 3 days of generalized abdominal pain, nausea, and constipation. She is passing flatus. She appears well and nontoxic. Vital signs stable. Abdomen soft with a palpable firm hernia right lower quadrant that is not reducible. No peritoneal signs. No overlying skin changes. Labs show WBC of 13.6, hemoglobin 11.7, electrolytes unremarkable. BUN 38, creatinine 2.36. Lactate is 2.1. CT shows a right inguinal hernia containing a fluid-filled small bowel loop with mild distended distal small bowel loops. I consulted general surgery and Dr. Mendoza evaluated in the emergency room and admitted the patient. She went ED to the OR. Lab Data Attestation: I reviewed the patient's lab results. Labs: Laboratory Results - last 24 hr 11/15/24 11/15/24 11/15/24 12:00 12:10 13:20 WBC 13.6 H RBC 3.72 L Hgb 11.7 L Hct 36.4 L MCV 97.8 MCH 31.5 MCHC 32.1 RDW Std Deviation 51.2 H RDW Coeff of Kamar 14.2 Plt Count 341 MPV 10.2 Immature Gran % (Auto) 0.400 Neut % (Auto) 61.8 Lymph % (Auto) 29.8 [place] % (Auto) 6.2 Eos % (Auto) 1.4 Baso % (Auto) 0.4 Absolute Neuts (auto) 8.4 H Absolute Lymphs (auto) 4.06 Nucleated RBC % 0 Sodium 135 Potassium 4.2 Chloride 101 Carbon Dioxide 19.5 L Anion Gap 14 BUN 38 H Creatinine 2.36 H Estim Creat Clear Calc 17.54 L Est GFR (MDRD) Non-Af 20 L BUN/Creatinine Ratio 16.1 Glucose 164 H Lactic Acid 2.1 H Calcium 9.1 Total Bilirubin 0.47 AST 23 ALT 14 Alkaline Phosphatase 109 H Total Protein 7.1 Albumin 3.7 Globulin 3.4 Albumin/Globulin Ratio 1.1 Urine Color Yellow Urine Clarity Sl. Cloudy Urine pH 6.0 Ur Specific [place] 1.015 Urine Protein 30 H Urine Glucose (UA) Normal Urine Ketones Negative Urine Occult Blood 10 H Urine Nitrite Negative Urine Bilirubin Negative Urine Urobilinogen Normal Ur Leukocyte Esterase 500 H Urine RBC 5-10 SEEN Urine WBC >100 SEEN Ur Squamous Epith Cells 10-25 SEEN Urine Bacteria 1+ Hyaline Casts 0-5 SEEN Urine Mucus 0 SEEN Radiography Diagnostic Testing: Clinical Impression(s) from Imaging Studies Abdomen/Pelvis CT 11/15/24 12:45 IMPRESSION: Right inguinal hernia containing small bowel loop which is fluid-filled. Fluid is also seen within the herniated sac. Mildly dilated/fluid-filled distal small bowel loops. Sigmoid diverticulosis without evidence of diverticulitis at this time. Extensive atherosclerotic calcification of the abdominal aorta and the major visceral branches. One or more dose reduction techniques were used (e.g., Automated exposure control, adjustment of the mA and/or kV according to patient size, use of iterative reconstruction technique). Reading Location: [facility] <Dr. Alphonso Brandon, DO - Last Filed: 11/15/24 22:40> [facility] MDM Narrative Medical decision making narrative: History gathered from: Patient and her daughter Differential includes but not limited to constipation, obstruction, diverticulitis Consults: General Surgery 79-year-old female presents with 3 days of generalized abdominal pain, nausea, and constipation. She is passing flatus. She appears well and nontoxic. Vital signs stable. Abdomen soft with a palpable firm hernia right lower quadrant that is not reducible. No peritoneal signs. No overlying skin changes. Labs show WBC of 13.6, hemoglobin 11.7, electrolytes unremarkable. BUN 38, creatinine 2.36. Lactate is 2.1. CT shows a right inguinal hernia containing a fluid-filled small bowel loop with mild distended distal small bowel loops. I consulted general surgery and Dr. Mendoza evaluated in the emergency room and admitted the patient. She went ED to the OR. Supervisory Physician Note Patient was seen and examined with the Advanced Practice Provider. Nursing notes and vital signs have been reviewed. Pertinent old records have been reviewed. I agree with the essential elements of the EM's history, physical exam, assessment, and plan. The differential diagnosis and management options were discussed with the EM. I participated in determining and agree with the management, procedures, final impression and disposition as documented. See changes noted by me. Please see addendum or separate note for any additional details. Impression: 1. Small bowel obstruction secondary to incarcerated hernia 2. Lactic acidosis 3. CKD 4. Chronic anemia Lab Data Labs: Laboratory Results - last 24 hr 11/15/24 11/15/24 11/15/24 12:00 12:10 13:20 WBC 13.6 H RBC 3.72 L Hgb 11.7 L Hct 36.4 L MCV 97.8 MCH 31.5 MCHC 32.1 RDW Std Deviation 51.2 H RDW Coeff of Kamar 14.2 Plt Count 341 MPV 10.2 Immature Gran % (Auto) 0.400 Neut % (Auto) 61.8 Lymph % (Auto) 29.8 [place] % (Auto) 6.2 Eos % (Auto) 1.4 Baso % (Auto) 0.4 Absolute Neuts (auto) 8.4 H Absolute Lymphs (auto) 4.06 Nucleated RBC % 0 Sodium 135 Potassium 4.2 Chloride 101 Carbon Dioxide 19.5 L Anion Gap 14 BUN 38 H Creatinine 2.36 H Estim Creat Clear Calc 17.54 L Est GFR (MDRD) Non-Af 20 L BUN/Creatinine Ratio 16.1 Glucose 164 H Lactic Acid 2.1 H Calcium 9.1 Total Bilirubin 0.47 AST 23 ALT 14 Alkaline Phosphatase 109 H Total Protein 7.1 Albumin 3.7 Globulin 3.4 Albumin/Globulin Ratio 1.1 Urine Color Yellow Urine Clarity Sl. Cloudy Urine pH 6.0 Ur Specific [place] 1.015 Urine Protein 30 H Urine Glucose (UA) Normal Urine Ketones Negative Urine Occult Blood 10 H Urine Nitrite Negative Urine Bilirubin Negative Urine Urobilinogen Normal Ur Leukocyte Esterase 500 H Urine RBC 5-10 SEEN Urine WBC >100 SEEN Ur Squamous Epith Cells 10-25 SEEN Urine Bacteria 1+ Hyaline Casts 0-5 SEEN Urine Mucus 0 SEEN Radiography Diagnostic Testing: Clinical Impression(s) from Imaging Studies Abdomen/Pelvis CT 11/15/24 12:45 IMPRESSION: Right inguinal hernia containing small bowel loop which is fluid-filled. Fluid is also seen within the herniated sac. Mildly dilated/fluid-filled distal small bowel loops. Sigmoid diverticulosis without evidence of diverticulitis at this time. Extensive atherosclerotic calcification of the abdominal aorta and the major visceral branches. One or more dose reduction techniques were used (e.g., Automated exposure control, adjustment of the mA and/or kV according to patient size, use of iterative reconstruction technique). Reading Location: [facility] Discharge Plan Dx/Rx/DC Orders Clinical Impression: Incarcerated hernia of abdominal cavity, Abdominal pain, Elevated lactic acid level Disposition Disposition: Acute Care Hospital [facility] Discharge Date/Time: 11/15/24 15:40
[2024-11-15 12:07] LABS: Absolute Lymphocyte Count 4.06 X10^3/uL (0.83-4.51); Absolute Neutrophil Count 8.4 X10^3/uL (2.0-7.7); Basophil# 0.05 X10^3/uL; Basophil% 0.4 % (0-1); Eosinophil# 0.19 X10^3/uL; Eosinophils% 1.4 % (0-5); Hematocrit 36.4 % (37-47); Hemoglobin 11.7 g/dL (12.0-15.0); Lymphocyte # 4.06 X10^3/ul (0.83-4.51); Lymphocyte % 29.8 % (19-41); Mean Corp Hgb Conc 32.1 g/dL (32-36); Mean Corpuscular Hgb 31.5 pg (27.0-32.0); Mean Corpuscular Volume 97.8 fL (81-99); Mean Platelet Vol. 10.2 fl (6.2-12.0); Monocyte# 0.84 X10^3/uL; Monocyte% 6.2 % (0-10); NRBC Flagged by Analyzer 0 % (0-5); Neutrophil # 8.42 X10^3/uL (2.7-7.7); Neutrophil % 61.8 % (47-70); Platelet Count 341 K/mm3 (150-450); RBC Distribution Width CV 14.2 % (11.6-14.6); RBC Distribution Width SD 51.2 fl (35.1-43.9); Red Blood Count 3.72 M/mm3 (4.2-5.4); White Blood Count 13.6 K/mm3 (4.4-11.0)
[2024-11-15] MEDS: 0.9% Normal Saline (1000mL) 1,000 ML 999 ML IV (12:08)
--- NOTE | 2024-11-15 12:45 | CT_ITS ---
PROCEDURE: ABDOMEN/PELVIS WITHOUT CONT REASON FOR EXAM: 2 day history of constipation and abdominal pain. TECHNIQUE: Abdomen and pelvis CT without intravenous contrast administration. IV CONTRAST: None COMPARISON: None. FINDINGS: Lung bases: Clear. Coronary artery calcification. Liver: Unremarkable. Gallbladder: Surgically absent. Spleen: Unremarkable. Pancreas: Unremarkable. Adrenals: Unremarkable. Kidneys: Unremarkable. Bladder: Unremarkable. Reproductive Organs: The patient is status post hysterectomy. Bowel: Colonic diverticulosis without diverticulitis. Small hiatal hernia. There is evidence of a moderate-sized right inguinal hernia containing a small bowel loop with fluid. Mild dilatation of the distal small bowel loops with fluid. Small amount of free fluid is seen in the pelvis. Appendix: Status post appendectomy. Lymph nodes: No suspicious lymph node enlargement. Vasculature: Extensive atherosclerotic calcification of the abdominal aorta as well as the major visceral vessels. 1.5 cm cyst in the posterior aspect of the right kidney. Peritoneum / Retroperitoneum: No ascites. No free air. Bones: Degenerative changes of the spine. CT/Abdomen/Pelvis without Cont IMPRESSION: Right inguinal hernia containing small bowel loop which is fluid-filled. Fluid is also seen within the herniated sac. Mildly dilated/fluid-filled distal small bowel loops. Sigmoid diverticulosis without evidence of diverticulitis at this time. Extensive atherosclerotic calcification of the abdominal aorta and the major vi sceral branches. One or more dose reduction techniques were used (e.g., Automated exposure contr ol, adjustment of the mA and/or kV according to patient size, use of iterative reconstruction technique). Reading Location: [place] [id number]
[2024-11-15 12:49] LABS: ALB/GLOB Ratio 1.1 RATIO (0.9-2.4); AST(SGOT) 23 U/L (<=31); Alanine Aminotransfer ALT/SGPT 14 U/L (<=34); Albumin, Serum 3.7 g/dL (3.4-4.8); Alkaline Phosphatase 109 U/L (35-104); Anion Gap 14 (5-15); BUN 38 mg/dL (4-19); BUN/Creat Ratio 16.1 RATIO (10-20); Calcium,Total 9.1 mg/dL (7.6-11.0); Carbon Dioxide 19.5 mmol/L (21.0-32.0); Chloride 101 mmol/L (98-108); Creatinine, Serum 2.36 mg/dL (0.70-1.20); EST Glomerular Filtration Rate 20 (>60); Estimated Creatinine Clearance 17.54 ml/min (50-250); Globulin 3.4 g/dL (2.2-4.2); Glucose 164 mg/dL (70-99); Potassium 4.2 mmol/L (3.3-5.1); Protein, Total 7.1 g/dL (5.9-8.4); Sodium Level 135 mmol/L (133-145); Total Bilirubin 0.47 mg/dL (0.00-1.30)
[2024-11-15 14:14] LABS: Lactic Acid 2.1 mmol/L (0.0-2.0)
[2024-11-15] MEDS: Ipratropium/Albuterol Sulfate 3 ML AMPUL.NEB INHALATION (14:41)
[2024-11-15 15:07] LABS: Mucous, Urine 0 SEEN /hpf (<or=2+)
[2024-11-15 15:17] LABS: Color, Urine Yellow (Yellow); Glucose, Dipstick Normal (Normal); Ketone-Dipstick Negative (Negative); Leukocyte Esterase-Dipstick 500 /ul (Negative); Nitrite-Dipstick Negative (Negative); Occult Blood-Urine 10 /ul (Negative); Protein-Dipstick 30 mg/dl (Negative); Specific Gravity, Urine 1.015 (1.002-1.030); Urine Bilirubin Dipstick Negative (Negative); Urine Clarity Sl. Cloudy (Clear); Urine Urobilinogen Normal (Normal)
--- NOTE | 2024-11-15 15:32 | PRE.ANES_ITS ---
ASA Classification* ASA Classification ASA Classification: 3 and E Assessment & Plan Anesthesia* Anesthesia Assessment Anesthesia Assessment: Discussed sedation and/or anesthesia options, risks, benefits, and alternatives with patient/parents/legal guardian/POA. Questions invited. The patient/parents/legal guardian/POA seems to understand and agrees to proceed with anesthesia plan. Reviewed the physical assessment, medical history, allergy history and patient home medications list prior to surgery/procedure/anesthetic and documented any changes. Performed airway and anesthesia risk assessments. Anesthesia Type Anesthesia Type: General (Allergy to amide local anesthetics. Avoid bupivacaine Marcaine lidocaine.) Anesthesia Focused Assessment* Temperature: 98 F Pulse Rate: 67 Blood Pressure: 141/48 Respiratory Rate: 16 Pulse Ox: 99 Airway Assessment Mouth opens: >3 cm Mallampati Score: II Focused Labs Anesthesia Preop lab: CBC WBC 13.6 K/mm3 (4.4-11.0) H 11/15/24 12: 5 RBC 3.72 M/mm3 (4.2-5.4) L 11/15/24 12:11/15/24 Hgb 11.7 g/dL (12.0-15.0) L 11/15/24 12:00 5 Hct 36.4 % (37-47) L 11/15/24 12:00 11/15/24 Plt Count 341 K/mm3 (150-450) 11/15/24 12:00 11/15/24 CHEMISTRY Potassium 4.2 mmol/L (3.3-5.1) 11/15/24 12:11/15/24 Sodium 135 mmol/L (133-145) 11/15/24 12:00 11/15/24 Magnesium 2.2 mg/dL (1.6-2.6) 06/10/24 11:19 06/10/24 Phosphorus 3.1 mg/dL (2.5-4.9) 06/10/24 11:19 06/10/24 BUN 38 mg/dL (4-19) H 11/15/24 12:00 11/15/24 Creatinine 2.36 mg/dL (0.70-1.20) H 11/15/24 12:00 Glucose 164 mg/dL (70-99) H 11/15/24 12:00 11/15/24 POC Glucose 212 mg/dL (74-106) H 11/07/23 12:09 11/07/23 TSH 7.440 uIU/mL (0.358-3.740) H 06/11/24 04:00 COAG PT 13.5 SECONDS (11.7-14.9) 06/10/24 13:15 Pre-Assessment Diagnosis/Proposed Procedure Planned Operative Procedure(s): Repair incarcerated hernia, laproscopic Anesthesia History 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 When Was Last Pacemaker Check QUESTION #4 FULL TEXT: You/Your Family Experience fever (hyperthermia) with Anesthesia Last Oral Intake Last Oral intake: Last Oral Intake NPO since Meds taken in AM with sips of water? Meds patient instructed to take am of surgery PONV PONV - streaming media specialist: PONV - streaming media specialist Female HX of Motion Sickness HX of N/V After Surgery Non-Smoker Duration of Surgery greater than 60 minutes Number of Risk Factors PONV Score Height & Weight Height & Weight: Anesthesia: Height & Weight Height 5 ft 1 in 11/15/24 11:41 Weight: 74.435 kg 11/15/24 11:41 Body Mass Index (BMI) 31.0 11/15/24 11:41 Respiratory Assessment Respiratory Assessment - streaming media specialist: Respiratory Tract Infection Hx - streaming media specialist Hx Respiratory Tract Infection No 09/20/22 20:22 STOP Sleep Apnea STOP Sleep Apnea - streaming media specialist: STOP Sleep Apnea - streaming media specialist Hx Hypertension Yes 06/11/24 13:38 Hx Sleep Apnea No 06/10/24 13:53 CPAP No 11/04/23 12:39 BIPAP No 11/04/23 12:39 Do you snore loudly (louder than talking or can be heard Do you often feel tired/ fatigued/ sleepy during daytime? Has anyone observed you stop breathing during sleep? STOP Results QUESTION #5 FULL TEXT : Do you snore loudly (louder than talking or can be heard through closed doors)? 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 Specify any problems Hx of Preganancy in last 3 Months Nurse Filling Out Transfusion & Questions: Date: Time: Patient unable to answer at this time (ie. confused, unrespo /Reproduction History /Reproductive History - streaming media specialist: /Reproductive Hx- streaming media specialist Hx Now Gestational Age (in weeks): EDC: Hx Hx Para Hx Section SAB No 09/20/22 20:22 PFSH Medical History CHF (congestive heart failure) Anemia NSTEMI (non-ST elevated myocardial infarction) Cardiomyopathy COVID-19 (~04/2022) Insect bite History of non-ST elevation myocardial infarction (NSTEMI) (01/26/21) COPD (chronic obstructive pulmonary disease) Morbid obesity TIA (transient ischemic attack) Arm paresthesia, right CKD (chronic kidney disease) Atherosclerotic heart disease of [place] coronary artery without angina 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 Obesity Atherosclerosis of coronary artery bypass graft without angina pectoris Essential hypertension Type 2 diabetes mellitus without complication Vertigo GERD (gastroesophageal reflux disease) Asthma Hyperlipidemia Hypothyroidism Home Medications ?Medication ?Instructions ?Recorded ?Last Taken ?Type montelukast 10 mg tablet 10 mg PO DAILY PRN ASTHMA 11/13/24 History aspirin 81 mg tablet,delayed 81 mg PO DAILY HEART HEAL TH 11/19/17 11/13/24 History release cetirizine 10 mg tablet (Zyrtec) 10 mg PO DAILY PRN al lergies 02/15/20 06/09/24 History allopurinol 100 mg tablet 100 mg PO DAILY GOUT 2 11/13/24 History ipratropium 20 mcg-albuterol 100 1 puff inhalation Q6H BREATHING 09/20/22 11/13/24 History mcg/actuation mist for inhalation (Combivent Respimat) ferrous sulfate 325 mg (65 mg 325 mg PO DAILY SUPPLEME NT 10/04/22 11/13/24 History iron) tablet furosemide 40 mg tablet (Lasix) 40 mg PO DAILY diureti c 12/25/22 11/13/24 History cholecalciferol (vitamin D3) 25 25 mcg PO SUTUTHSA vit ross 06/05/23 11/13/24 History mcg (1,000 unit) tablet omeprazole 20 mg capsule,delayed 20 mg PO DAILY reflux 11/04/23 11/13/24 History release ezetimibe 10 mg tablet (Zetia) 10 mg PO DAILY 02/27/24 11/13/24 History prednisone 5 mg tablet 5 mg PO DAILY 02/27/2411/13 History albuterol sulfate 2.5 mg/3 mL 1.25 mg inhalation TID P RN 05/09/24 11/15/24 History (0.083 %) solution for nebulization shortness of breat h or wheezing ipratropium bromide 0.02 % 0.5 mg inhalation TID PRN 0 05/09/24 11/13/24 History solution for inhalation shortness of breath or wheez ing biotin 10,000 mcg capsule 10,000 mcg PO DAILY 06/10/24 11/13/24 History folic acid 1 mg tablet 1 mg PO DAILY 06/10/2411/13 History glipizide 2.5 mg tablet, extended 2.5 mg PO BID 11/13/24 History release 24 hr amlodipine 5 mg tablet 5 mg PO DAILY 08/25/2411/13 History spironolactone 25 mg tablet 25 mg PO QDAY HEART 11/13/24 History levothyroxine 100 mcg tablet 100 mcg PO DAILY 11/15/24 11/13/24 History metoprolol tartrate 50 mg tablet 50 mg PO DAILY 11/13/24 History Allergy/AdvReac Type Severity Reaction Status Date / Time Anesthetics - Amide Type - Allergy Other Verified 08/25/24 15:01 Select A (Anesthetics - Amide Type) acetaminophen (From Tylenol) AdvReac Severe Other Verified 08/25/24 15:01 pravastatin AdvReac Intermediate Myalgias Verified 08/25/24 15:01 after 15 years of taking cinnamon AdvReac Unknown Unknown Verified 08/25/24 15:01 Penicillins AdvReac Unknown Unknown Verified 08/25/24 15:01 ezetimibe (From Zetia) AdvReac myalgias Verified 08/25/24 15:01 leflunomide AdvReac Chest Verified 08/25/24 15:04 tightness Family History Mother , age 86, advanced age No problems noted. Father Prostate cancer Surgical History History of coronary artery stent placement (01/26/21) H/O coronary artery bypass surgery (10/11/07) Hx of bilateral cataract extraction History of hysterectomy Hx of appendectomy History of cholecystectomy Social History household members: family housing: house Smoking Status: Never smoker alcohol intake: never substance use type: does not use caffeine: Yes Type: carbonated beverages what type of physical activity do you participate in: none seatbelt use: always do you feel safe at home: Yes Review of Systems (Anesthesia) ROS Narrative System reviewed and no additional complaints, except as documented.
--- NOTE | 2024-11-15 15:36 | PCM.HP.STD ---
HPI - General General Date of Admission: 11/15/24 Date of Service: 11/15/24 Chief Complaint: Incarcerated abdominal hernia HPI Narrative The patient is an 79-year-old female with past medical history of hypertension hyperlipidemia, COPD, diabetes, CHF, hypothyroidism. She has had multiple abdominal surgeries in the past. She presents to the emergency department with about 3-day history of abdominal pain. She states that the pain initially began centrally but then seems to be more focused in the lower abdomen. She has a known hernia in the right lower quadrant. It sounds as though this is nonreducible and has been the case for years. Prior to 3 days ago, this really has not caused her any issues or problems. She states that she has had nausea and decreased appetite. No vomiting. She states that she has not had a bowel movement in several days. She complains of quite a bit of pain in the site of the hernia. Her previous surgeries include a cholecystectomy, appendectomy, left-sided abdominal hernia repair, tubal ligation, and hysterectomy. She was seen evaluate by the ER staff. White count was somewhat elevated. Her creatinine is elevated as well. CT scan revealed a hernia in the right lower quadrant. This was read as an inguinal hernia however this seems clinically and radiographically to be slightly higher. [facility] Medical History (Updated 11/15/24 @ 15:[address] 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 Obesity Atherosclerosis of coronary artery bypass graft without angina pectoris Essential hypertension Type 2 diabetes mellitus without complication Vertigo GERD (gastroesophageal reflux disease) Asthma Hyperlipidemia Hypothyroidism Home Medications ?Medication ?Instructions ?Recorded ?Last Taken ?Type montelukast 10 mg tablet 10 mg PO DAILY PRN ASTHMA 12/17/13 11/13/24 History aspirin 81 mg tablet,delayed 81 mg PO DAILY HEART HEALTH 11/19/17 11/13/24 History release cetirizine 10 mg tablet (Zyrtec) 10 mg PO DAILY PRN allergies 02/15/20 06/09/24 History allopurinol 100 mg tablet 100 mg PO DAILY GOUT 11/22/21 11/13/24 History ipratropium 20 mcg-albuterol 100 1 puff inhalation Q6H BREATHING 09/20/22 11/13/24 History mcg/actuation mist for inhalation (Combivent Respimat) ferrous sulfate 325 mg (65 mg 325 mg PO DAILY SUPPLEMENT 10/04/22 11/13/24 History iron) tablet furosemide 40 mg tablet (Lasix) 40 mg PO DAILY diuretic 12/25/22 11/13/24 History cholecalciferol (vitamin D3) 25 25 mcg PO SUTUTHSA vitamin 06/05/23 11/13/24 History mcg (1,000 unit) tablet omeprazole 20 mg capsule,delayed 20 mg PO DAILY reflux 11/04/23 11/13/24 History release ezetimibe 10 mg tablet (Zetia) 10 mg PO DAILY 02/27/24 11/13/24 History prednisone 5 mg tablet 5 mg PO DAILY 02/27/24 11/13/24 History albuterol sulfate 2.5 mg/3 mL 1.25 mg inhalation TID PRN 05/09/24 11/15/24 History (0.083 %) solution for nebulization shortness of breath or wheezing ipratropium bromide 0.02 % 0.5 mg inhalation TID PRN 05/09/24 11/13/24 History solution for inhalation shortness of breath or wheezing biotin 10,000 mcg capsule 10,000 mcg PO DAILY 06/10/24 11/13/24 History folic acid 1 mg tablet 1 mg PO DAILY 06/10/24 11/13/24 History glipizide 2.5 mg tablet, extended 2.5 mg PO BID 06/10/24 11/13/24 History release 24 hr amlodipine 5 mg tablet 5 mg PO DAILY 08/25/24 11/13/24 History spironolactone 25 mg tablet 25 mg PO QDAY HEART 08/25/24 11/13/24 History levothyroxine 100 mcg tablet 100 mcg PO DAILY 11/15/24 11/13/24 History metoprolol tartrate 50 mg tablet 50 mg PO DAILY 11/15/24 11/13/24 History Allergy/AdvReac Type Severity Reaction Status Date / Time Anesthetics - Amide Type - Allergy Other Verified 08/25/24 15:01 Select A (Anesthetics - Amide Type) acetaminophen (From Tylenol) AdvReac Severe Other Verified 08/25/24 15:01 pravastatin AdvReac Intermediate Myalgias Verified 08/25/24 15:01 after 15 years of taking cinnamon AdvReac Unknown Unknown Verified 08/25/24 15:01 Penicillins AdvReac Unknown Unknown Verified 08/25/24 15:01 ezetimibe (From Zetia) AdvReac myalgias Verified 08/25/24 15:01 leflunomide AdvReac Chest Verified 08/25/24 15:04 tightness Family History Mother , age 86, advanced age No problems noted. Father Prostate cancer Surgical History History of coronary artery stent placement (01/26/21) H/O coronary artery bypass surgery (10/11/07) Hx of bilateral cataract extraction History of hysterectomy Hx of appendectomy History of cholecystectomy Social History household members: family housing: house Smoking Status: Never smoker alcohol intake: never substance use type: does not use caffeine: Yes Type: carbonated beverages what type of physical activity do you participate in: none seatbelt use: always do you feel safe at home: Yes Vital Signs Vital Signs Vital Signs: 11/15/24 11:41 11/15/24 13:09 11/15/24 14:20 Temperature 97.8 F 98.1 F 98 F Temperature Source Temporal Oral Pulse Rate 78 69 68 Respiratory Rate 16 16 18 Blood Pressure 127/65 H 140/52 H 141/48 H Blood Pressure Mean 85 81 79 Pulse Ox 100 100 99 Oxygen Delivery Method Room Air Room Air 11/15/24 14:42 Temperature Temperature Source Pulse Rate 67 Respiratory Rate 16 Blood Pressure Blood Pressure Mean Pulse Ox Oxygen Delivery Method Weight Weight: 164 lb 1.6 oz Body Mass Index (BMI) 31.0 Physical Exam Narrative She is awake and alert. She is in no acute distress. Head is normocephalic and atraumatic. Pupils are equal round and reactive to light. Abdomen is overall soft, nontender and somewhat obese. Palpation in the right lower quadrant reveals a very hard hernia. This seems more cephalad than a traditional inguinal hernia. She does have what appears to to be other hernias in this area. I did attempt to reduce the hernia however this did not reduce the hernia at all and in fact this was created significant amount of pain Results Lab / Micro Data 11/15/24 12:00 11/15/24 12:00 Labs: Laboratory Results - last 24 hr 11/15/24 12:00: WBC 13.6 H, RBC 3.72 L, Hgb 11.7 L, Hct 36.4 L, MCV 97.8, MCH 31.5, MCHC 32.1, RDW Std Deviation 51.2 H, RDW Coeff of Kamar 14.2, Plt Count 341, MPV 10.2, Immature Gran % (Auto) 0.400, Neut % (Auto) 61.8, Lymph % (Auto) 29.8, [place] % (Auto) 6.2, Eos % (Auto) 1.4, Baso % (Auto) 0.4, Absolute Neuts (auto) 8.4 H, Absolute Lymphs (auto) 4.06, Nucleated RBC % 0, Sodium 135, Potassium 4.2, Chloride 101, Carbon Dioxide 19.5 L, Anion Gap 14, BUN 38 H, Creatinine 2.36 H, Estim Creat Clear Calc 17.54 L, Est GFR (MDRD) Non-Af 20 L, BUN/Creatinine Ratio 16.1, Glucose 164 H, Calcium 9.1, Total Bilirubin 0.47, AST 23, ALT 14, Alkaline Phosphatase 109 H, Total Protein 7.1, Albumin 3.7, Globulin 3.4, Albumin/Globulin Ratio 1.1 11/15/24 12:10: Lactic Acid 2.1 H Imaging Radiology Impression Abdomen/Pelvis CT 11/15/24 12:45 IMPRESSION: Right inguinal hernia containing small bowel loop which is fluid-filled. Fluid is also seen within the herniated sac. Mildly dilated/fluid-filled distal small bowel loops. Sigmoid diverticulosis without evidence of diverticulitis at this time. Extensive atherosclerotic calcification of the abdominal aorta and the major visceral branches. One or more dose reduction techniques were used (e.g., Automated exposure control, adjustment of the mA and/or kV according to patient size, use of iterative reconstruction technique). Reading Location: [facility] Assessment & Plan Assessment/Plan (1) Incarcerated hernia of abdominal cavity: PLAN: Plan The patient is an 79-year-old female with an incarcerated hernia in the right lower quadrant. This could be an inguinal hernia versus even a right lower quadrant abdominal hernia. Clinically this does seem to be incarcerated and causing her increasing pain. I have offered her repair surgery. We discussed the details of the planned procedure and she wishes to proceed. This will begin momentarily Charges/Coding Visit Charges Inpatient E&M: 91972 Init Hosp L3
--- NOTE | 2024-11-15 15:38 | ED.RN ---
called pharmacy to send antibiotic to OR. completed part of checklist but not all.
--- NOTE | 2024-11-15 16:01 | SUR.PREOP ---
Right leg from knee down, swollen, no pitting. Bottom of right foot with small diabetic ulcer, no drainage noted.
[2024-11-15] MEDS: Clindamycin 900 MG/50 ML BAG 75 MG IV (16:07)
[2024-11-15 16:29] LABS: Bacteria 1+ /hpf (None Seen); Hyaline Cast 0-5 SEEN /lpf (0-5); Red Blood Cells-Urine 5-10 SEEN /hpf (0-5); Squamous Epithelial Cells - UA 10-25 SEEN /hpf (5-10); White Blood Cells >100 SEEN /hpf (0-5)
--- NOTE | 2024-11-15 17:58 | PCM.POST.ANE ---
Anesthesia: Postop Eval I Current Vital Signs Temperature: 97.4 F Pulse Rate: 75 Blood Pressure: 138/60 Respiratory Rate: 16 Pulse Ox: 100 Oxygen Flow Rate (L/min): 2 Assessment Airway patent: Yes Spontaneous unlabored respirations: Yes nausea: No Vomiting: No Anesthesia Complication: No Fluid Hydration Crystalloid volume administer (ml): 1,000 Total IV fluid infused: 1,000 Progress Note Anesthesia document: Postop Eval 1 completed: Yes
--- NOTE | 2024-11-15 17:59 | PCM.POSTANE2 ---
Anesthesia Postop Eval I Sum Postop Eval Completion status Anesthesia document: Postop Eval 1 completed: Yes Anesthesia Postop Eval I Summary Anesthesia Postop Eval I Summary: Anesthesia Postop Eval I: Assessment Summary Airway patent Yes 11/15/24 17:59 Spontaneous unlabored Yes 11/15/24 17:59 respirations Mental status nausea No 11/15/24 17:59 Vomiting No 11/15/24 17:59 Anesthesia Postop Eval I: Fluid Summary Crystalloid volume administer 1,000 11/15/24 17:59 (ml) Colloids volume administered ( ml) Blood Product volume administered (ml) Total IV fluid infused 1,000 11/15/24 17:59 Anesthesia Postop Eval I: Summary Notes Anesthesia Complication No 11/15/24 17:59 Anesthesia Complication Comment: Post-operative progress note Anesthesia: Postop Eval II Evaluation Mental status: Awake Pain Level: 2 nausea: No Vomiting: No
[2024-11-15] MEDS: Albuterol 2.5 MG/3 ML VIAL.NEB. 1.25 MG INHALATION (18:11)
[2024-11-15 18:29] LABS: Bedside Glucose 113 mg/dL (74-106)
--- NOTE | 2024-11-15 18:39 | PCM.OPRPT ---
Procedures Digestive 40xxx-49xxx: 59630 RPR AA HRN 11-15 NCR/STRN Operative Report (Standard) Operative Information Date of Procedure: 11/15/24 Pre-Operative Diagnosis: Incarcerated ventral hernia Post-Operative Diagnosis: Same Surgery/Procedure Performed: Open right lower quadrant ventral hernia repair nerve specialist: Yes Cash Poster: Huber Scruggs Tasks completed by welder first class: Closing, Hemostasis: Electrocautery and Retracting Additional patient care nursing assistant?: No Type of Anesthesia: General RN Documented Start/Stop Times: Operation Date: 11/15/24 15:45 Case Time Into Pre-Op 11/15/24 15:45 Anesthesia Start 11/15/24 16:07 Into Room 11/15/24 16:07 Procedure Start 11/15/24 16:30 Procedure End 11/15/24 17:45 Anesthesia End 11/15/24 17:50 Out of Room 11/15/24 17:50 Into Recovery 11/15/24 17:53 Out of Recovery 11/15/24 18:32 Procedure Start Time: 16:30 Procedure Stop Time: 17:45 Select all DRAINS/GRAFTS/IMPLANTS that apply: None Special Medications: Ancef IV Estimated Blood Loss: 25 mL Specimen collected: Yes Description of specimen(s) removed: Hernia sac Description of surgery: The patient is an 79-year-old female who presents to the emergency department earlier today with about 3 days of abdominal pain along with nausea. ER workup included CT scan which showed what appeared to be incarcerated right lower quadrant hernia containing a small segment of small bowel possibly related to a small bowel obstruction. Patient had known that she had a hernia but this really had not caused her any pain or problems until a few days ago. Surgical repair was offered to her as this was not reducible. We discussed the details of the planned surgery including risk benefits and alternatives. She wished to proceed. Patient was brought to the op room today following informed consent. Antibiotics were given and a timeout was performed. She was placed supine on the operative table with arms outstretched on arm boards. The abdomen is then prepped and draped in the usual sterile manner. A transverse incision was made overlying the hernia. Bovie electrocautery was then used dissect down through subcutaneous tissues. The overall size of the hernia was about 7 to 8 cm however the fascial defect seemed probably closer to 3 to 4 cm. The entire hernia sac was cleared down to the neck of the hernia. At this point the hernia sac was incised. This contained mostly fat. On CT scan there was a loop of bowel but this seemed to have spontaneously reduced by this point. I suspect when she was asleep this may have reduced. The hernia sac was excised along with some of the adherent contents which was mostly omentum. This omentum was transected and tied using 0 Vicryl suture. The small bowel in this vicinity was brought up through the fascial defect. I did extend the fascia several centimeters in order to visualize the bowel. There was clearly a knuckle of bowel that was chronically kinked as there were adhesions. This adhesions were taken down using rectal cautery. The bowel was clearly viable and healthy. This was returned back to the abdomen and the fascial defect was closed primarily using #1 Ethibond. These were placed in a interrupted [id number] manner. This closed the fascial defect nicely. The wound was then copiously irrigated. Hemostasis was excellent. The wound was then closed in layers using 3-0 Vicryl and then 4-0 Vicryl was run in the skin. Skin glue was then applied. A Mepilex dressing was applied on top of this. And then finally an abdominal binder was applied. She was awakened from anesthesia and taken to recovery in good condition. A COMM[employer] MARKETING INTERN was utilized as a heel sprayer first. Her role included retraction and assistance with wound closure. Surgical Findings: Right lower quadrant hernia. Fascial defect size is about 3 cm Complications Complications: No Admit VTE Documentation VTE Present on Admission: No VTE Mechan Device Prophylaxis: SCD's VTE Pharm Prophylaxis ordered?: No Reason prophylaxis not ordered: Treatment Not Indicated
[2024-11-15] MEDS: 0.9% Normal Saline (100mL Bag) 100 ML 15 ML IV (21:09)
[2024-11-15] MEDS: glipiZIDE 2.5 MG TAB.ER.24 PO (21:09)
[2024-11-15] MEDS: oxyCODONE 5 MG Tablet PO (21:09)
[2024-11-15 21:38] LABS: Bedside Glucose 142 mg/dL (74-106)
[2024-11-16] VITALS (12 sets, daily range): BP systolic 128–150; BP diastolic 50–67; PULSE 70–96; RESP 15–20; TEMP 36.6–37.2; O2SAT 91–100
[2024-11-16] MEDS: Ipratropium/Albuterol Sulfate 3 ML AMPUL.NEB INHALATION ×4 (01:36→20:12)
[2024-11-16] MEDS: Levothyroxine 100 MCG Tablet PO (04:58)
[2024-11-16] MEDS: oxyCODONE 5 MG Tablet PO ×2 (05:08→18:16)
[2024-11-16 06:55] LABS: Absolute Lymphocyte Count 2.01 X10^3/uL (0.83-4.51); Basophil# 0.05 X10^3/uL; Basophil% 0.4 % (0-1); Eosinophil# 0.11 X10^3/uL; Eosinophils% 0.9 % (0-5); Hematocrit 29.9 % (37-47); Hemoglobin 9.6 g/dL (12.0-15.0); Lymphocyte # 2.01 X10^3/ul (0.83-4.51); Lymphocyte % 16.8 % (19-41); Mean Corp Hgb Conc 32.1 g/dL (32-36); Mean Corpuscular Volume 99.7 fL (81-99); Mean Platelet Vol. 10.5 fl (6.2-12.0); Monocyte# 0.78 X10^3/uL; Monocyte% 6.5 % (0-10); NRBC Flagged by Analyzer 0 % (0-5); Neutrophil # 8.99 X10^3/uL (2.7-7.7); Neutrophil % 75.1 % (47-70); Platelet Count 289 K/mm3 (150-450); RBC Distribution Width CV 14.4 % (11.6-14.6); RBC Distribution Width SD 52.6 fl (35.1-43.9)
--- NOTE | 2024-11-16 07:36 | PN.SURG_ITS ---
Subjective Subjective The patient is an 79-year-old female status post a ventral hernia repair yesterday. She is doing well this morning. No issues or complaints other than mild incisional soreness. She has been tolerating clear liquid diet. Pain is well-controlled Objective Data Objective Data Vital Signs: Vital Signs Temp Pulse Resp BP Pulse Ox O2 Del Method O2 Flow Rate 98.0 F 72 16 128/67 H 95 Room Air 2 11/16/24 06:07 11/16/24 06:07 11/16/24 06:07 11/16/24 06:07 11/16/24 06:07 11/16/24 06:07 11/15/24 22:56 Oxygen Flow Rate (L/min) 2 Oxygen Delivery Method Room Air Weight: 164 lb 3.91 oz Body Mass Index (BMI) 30.5 Intake & Output: Intake and Output for Last 24 Hours 11/15/24 11/15/24 11/16/24 00:59 23:59 23:59 Intake Total 1050 / 1050 400 / 400 Output Total 80 / 80 Balance 970 / 970 400 / 400 Lab / Micro Data 11/16/24 06:19 11/15/24 12:00 Labs: Laboratory Results - last 24 hr 11/15/24 12:00: WBC 13.6 H, RBC 3.72 L, Hgb 11.7 L, Hct 36.4 L, MCV 97.8, MCH 31.5, MCHC 32.1, RDW Std Deviation 51.2 H, RDW Coeff of Kamar 14.2, Plt Count 341, MPV 10.2, Immature Gran % (Auto) 0.400, Neut % (Auto) 61.8, Lymph % (Auto) 29.8, [place] % (Auto) 6.2, Eos % (Auto) 1.4, Baso % (Auto) 0.4, Absolute Neuts (auto) 8.4 H, Absolute Lymphs (auto) 4.06, Nucleated RBC % 0, Sodium 135, Potassium 4.2, Chloride 101, Carbon Dioxide 19.5 L, Anion Gap 14, BUN 38 H, Creatinine 2.36 H, Estim Creat Clear Calc 17.54 L, Est GFR (MDRD) Non-Af 20 L, BUN/Creatinine Ratio 16.1, Glucose 164 H, Calcium 9.1, Total Bilirubin 0.47, AST 23, ALT 14, Alkaline Phosphatase 109 H, Total Protein 7.1, Albumin 3.7, Globulin 3.4, Albumin/Globulin Ratio 1.1 11/15/24 12:10: Lactic Acid 2.1 H 11/15/24 13:20: Urine Color Yellow, Urine Clarity Sl. Cloudy, Urine pH 6.0, Ur Specific [place] 1.015, Urine Protein 30 H, Urine Glucose (UA) Normal, Urine Ketones Negative, Urine Occult Blood 10 H, Urine Nitrite Negative, Urine Bilirubin Negative, Urine Urobilinogen Normal, Ur Leukocyte Esterase 500 H, Urine RBC 5-10 SEEN, Urine WBC >100 SEEN, Ur Squamous Epith Cells 10-25 SEEN, Urine Bacteria 1+, Hyaline Casts 0-5 SEEN, Urine Mucus 0 SEEN 11/15/24 18:02: POC Glucose 113 H 11/15/24 20:51: POC Glucose 142 H 11/16/24 06:19: WBC 12.0 H, RBC 3.00 L, Hgb 9.6 L, Hct 29.9 L, MCV 99.7 H, MCH 32.0, MCHC 32.1, RDW Std Deviation 52.6 H, RDW Coeff of Kamar 14.4, Plt Count 289, MPV 10.5, Immature Gran % (Auto) 0.300, Neut % (Auto) 75.1 H, Lymph % (Auto) 16.8 L, [place] % (Auto) 6.5, Eos % (Auto) 0.9, Baso % (Auto) 0.4, Absolute Neuts (auto) 9.0 H, Absolute Lymphs (auto) 2.01, Nucleated RBC % 0 Radiography Diagnostic Testing: Radiology Impression Abdomen/Pelvis CT 11/15/24 12:45 IMPRESSION: Right inguinal hernia containing small bowel loop which is fluid-filled. Fluid is also seen within the herniated sac. Mildly dilated/fluid-filled distal small bowel loops. Sigmoid diverticulosis without evidence of diverticulitis at this time. Extensive atherosclerotic calcification of the abdominal aorta and the major visceral branches. One or more dose reduction techniques were used (e.g., Automated exposure control, adjustment of the mA and/or kV according to patient size, use of iterative reconstruction technique). Reading Location: [facility] Physical Exam Narrative She is alert and oriented x 3. She is in no acute distress. Abdomen is soft and appropriately tender. Abdominal binder is in place. Assessment & Plan Assessment/Plan (1) Abdominal pain: PLAN: Plan Postoperative day #1 from a open incisional hernia repair in the right lower quadrant. She is doing well from my standpoint. I am recommending advancing her diet. If she continues to do well, she could probably be discharged to home later today. Await a.m. blood work
[2024-11-16 08:05] LABS: Anion Gap 11 (5-15); BUN 31 mg/dL (4-19); BUN/Creat Ratio 15.5 RATIO (10-20); Calcium,Total 7.9 mg/dL (7.6-11.0); Carbon Dioxide 17.4 mmol/L (21.0-32.0); Chloride 108 mmol/L (98-108); Creatinine, Serum 1.98 mg/dL (0.70-1.20); EST Glomerular Filtration Rate 25 (>60); Estimated Creatinine Clearance 20.92 ml/min (50-250); Glucose 157 mg/dL (70-99); Potassium 4.1 mmol/L (3.3-5.1); Sodium Level 136 mmol/L (133-145)
[2024-11-16] MEDS: amLODIPine 5 MG Tablet PO (09:24)
[2024-11-16] MEDS: glipiZIDE 2.5 MG TAB.ER.24 PO ×2 (09:24→21:48)
[2024-11-16] MEDS: Aspirin E.C. 81 MG Tablet PO (09:24)
[2024-11-16] MEDS: Pantoprazole Sodium 20 MG Tablet PO (09:24)
[2024-11-16] MEDS: Allopurinol 100 MG Tablet PO (09:28)
--- NOTE | 2024-11-16 09:35 | PCM.DC ---
Discharge Instructions Diet Discharge Diet: Light diet - advance as tolerated DC O2, CPAP, BIPAP needs Home O2 Discharge instructions: No Dressing / Incision Discharge Activity: May Not Drive (3-5 days or while on narcotic pain medication) Lifting Restrictions: 10 pounds for 1 week; 20 pounds for 5 additional weeks Dressing / Incision Call your doctor if your incision/area has: Continuous Slow Oozing, Sudden Increased Bleeding, Increased Pain/ Swelling, Increased Redness, Foul Smelling Discharge and Swelling at the incision site Call your doctor if you observe: Fever of 101 or Higher Suture Line Care: Avoid Pulling/Pushing and Avoid Pinching/Bending Cleanse incision/area with: Soap & Water Follow Up Care Please Follow Up With: Karin Summers PA-C When: Please contact our office at [phone], option #2 to schedule a 2 week follow-up Test Results: Test results from this visit will be discussed in further detail at your follow-up appointment, if applicable. Discharge Plan Admission Admit Date/Time: 11/15/24 17:43 Primary Reason for Your Visit: Incarcerated ventral hernia causing a bowel obstruction Attending Provider: Juancho Mendoza Primary Care Provider: Tabatha Diaz Instructions Additional Instructions / Restrictions: Hernia Diet ? Start light with soups and soft bland foods. You may advance diet as tolerated. Activity ? You may drive in 3-5 days but not while taking narcotic pain medication. ? I encourage walking. You may go up steps, one at a time. ? Do not swim or use hot tubs for 2 weeks. ? For comfort, you may use warm compresses or ice as needed for 15-20 minutes at a time. Lifting ? You may lift up to 10 pounds for 1 week. You may advance to 20 pounds for the next 5 weeks. Dressings/Incision ? You may shower OVER your incisions Medications ? Anesthesia used during surgery and pain medications may cause constipation. I recommend initiating on the day of surgery a fiber supplement like, Metamucil, Citrucel, FiberCon, Benefiber, or a generic form of these medications. 1 heaping tablespoon in water daily. You may continue to utilize any bowel regimen or oral laxatives that you routinely take. ? As long as you are not intolerant to Tylenol, acetaminophen, ibuprofen, Motrin, Advil, Aleve, or similar medications, I would recommend transitioning to these thgt-dyv-ahulcav medicines as soon as possible instead of continued use of narcotic pain medication. Follow up ? You should call [facility] soon after surgery, at [phone] option 2 to make a follow up appointment for 10-14 days after your surgery. Discharge Orders/Prescriptions Prescriptions: New oxycodone 5 mg Tablet 5 mg PO Q6H PRN (Reason: pain) 3 Days Qty: 9 0RF Continued aspirin 81 mg tablet,delayed release (DR/EC) 81 mg PO DAILY cetirizine [Zyrtec] 10 mg tablet 10 mg PO DAILY PRN (Reason: allergies) allopurinol 100 mg tablet 100 mg PO DAILY furosemide [Lasix] 40 mg tablet 40 mg PO DAILY cholecalciferol (vitamin D3) 25 mcg (1,000 unit) tablet 25 mcg PO SUTUTHSA spironolactone 25 mg tablet 25 mg PO QDAY ferrous sulfate 325 mg (65 mg iron) tablet 325 mg PO DAILY prednisone 5 mg tablet 5 mg PO DAILY ezetimibe [Zetia] 10 mg tablet 10 mg PO DAILY amlodipine 5 mg tablet 5 mg PO DAILY Rx Instructions: Hold for SBP less than 130 mmHg montelukast 10 MG tablet 10 mg PO DAILY PRN (Reason: ASTHMA) Combivent Respimat 20-100 mcg/actuation mist 1 puff INHALATION Q6H Patient Comments: PT DOES HAVE THIS MEDICATION WITH HER. omeprazole 20 mg capsule,delayed release(DR/EC) 20 mg PO DAILY albuterol sulfate 2.5 mg /3 mL (0.083 %) solution for nebulization 1.25 mg inhalation TID PRN (Reason: shortness of breath or wheezing) ipratropium bromide 0.02 % solution 0.5 mg inhalation TID PRN (Reason: shortness of breath or wheezing) glipizide 2.5 mg tablet extended release 24hr 2.5 mg PO BID folic acid 1 mg tablet 1 mg PO DAILY biotin 10,000 mcg capsule 10,000 mcg PO DAILY levothyroxine 100 mcg tablet 100 mcg PO DAILY metoprolol tartrate 50 mg tablet 50 mg PO DAILY Referrals / Follow Up: Tabatha Diaz MD [Primary Care Provider] - Disposition Disposition (needs filled in before D/C Order can be placed): Home, Self Care
--- NOTE | 2024-11-16 10:55 | CASEMGMT ---
Pt has dc order in, RN CM into pt room, pt sitting up in chair in no distress. Pt reports she lives with 6 other people in the home including her dtr and dtr's , grandsons. Pt states she uses a walker at home and is indep with all ADL/IADLs. Pt does not drive but has family who transports her to get her groceries and banking. Pt lives in a single story home that is fully handicap accessible. Pt denies any homegoing needs at this time.
--- NOTE | 2024-11-16 11:26 | PHA.DC_ITS ---
Pharmacy [facility] has performed discharge medication counseling for this patient. The patient was counseled on the following discharge medications and changes in medications for homegoing review. The Reason for Use, instructions for use, and potential side effects were reviewed for all new medications. The patient's questions regarding all of their medications were answered. 1. Oxycodone 5 mg PO Q6H PRN pain The patient was able to verbally demonstrate an understanding of their discharge medications. Medications at Discharge Home Medications montelukast 10 mg tablet 10 mg PO DAILY PRN ASTHMA 12/17/13 aspirin 81 mg tablet,delayed release 81 mg PO DAILY HEART HEALTH 11/19/17 cetirizine 10 mg tablet (Zyrtec) 10 mg PO DAILY PRN allergies 02/15/20 allopurinol 100 mg tablet 100 mg PO DAILY GOUT 11/22/21 ipratropium 20 mcg-albuterol 100 mcg/actuation mist for inhalation (Combivent Respimat) 1 puff inhalation Q6H BREATHING 09/20/22 ferrous sulfate 325 mg (65 mg iron) tablet 325 mg PO DAILY SUPPLEMENT 10/04/22 furosemide 40 mg tablet (Lasix) 40 mg PO DAILY diuretic 12/25/22 cholecalciferol (vitamin D3) 25 mcg (1,000 unit) tablet 25 mcg PO SUTUTHSA vitamin 06/05/23 omeprazole 20 mg capsule,delayed release 20 mg PO DAILY reflux 11/04/23 ezetimibe 10 mg tablet (Zetia) 10 mg PO DAILY 02/27/24 prednisone 5 mg tablet 5 mg PO DAILY 02/27/24 albuterol sulfate 2.5 mg/3 mL (0.083 %) solution for nebulization 1.25 mg inhalation TID PRN shortness of breath or wheezing 05/09/24 ipratropium bromide 0.02 % solution for inhalation 0.5 mg inhalation TID PRN shortness of breath or wheezing 05/09/24 biotin 10,000 mcg capsule 10,000 mcg PO DAILY 06/10/24 folic acid 1 mg tablet 1 mg PO DAILY 06/10/24 glipizide 2.5 mg tablet, extended release 24 hr 2.5 mg PO BID 06/10/24 amlodipine 5 mg tablet 5 mg PO DAILY 08/25/24 spironolactone 25 mg tablet 25 mg PO QDAY HEART 08/25/24 levothyroxine 100 mcg tablet 100 mcg PO DAILY 11/15/24 metoprolol tartrate 50 mg tablet 50 mg PO DAILY 11/15/24 oxycodone 5 mg tablet 5 mg PO Q6H PRN pain 3 days #9 tabs 11/16/24
[2024-11-16] MEDS: Metoprolol Tartrate 50 MG Tablet PO (13:08)
[2024-11-16] MEDS: 0.9% Saline Lock 10 ML Syringe IV (13:13)
[2024-11-17] VITALS (8 sets, daily range): BP systolic 121–148; BP diastolic 49–60; PULSE 70–82; RESP 12–18; TEMP 36.7–37.1; O2SAT 92–97
[2024-11-17] MEDS: Levothyroxine 100 MCG Tablet PO (04:54)
[2024-11-17] MEDS: Ipratropium/Albuterol Sulfate 3 ML AMPUL.NEB INHALATION ×2 (05:13→13:27)
[2024-11-17] MEDS: Bisacodyl 5 MG Tablet PO (08:29)
[2024-11-17] MEDS: Aspirin E.C. 81 MG Tablet PO (08:29)
--- NOTE | 2024-11-17 09:04 | PCM.PN.SRG ---
Objective Data Objective Data Vital Signs: Vital Signs Temp Pulse Resp BP Pulse Ox O2 Del Method O2 Flow Rate 98.6 F 82 12 135/52 H 93 Room Air 2 11/17/24 07:30 11/17/24 07:30 11/17/24 07:30 11/17/24 07:30 11/17/24 05:14 11/17/24 08:22 11/15/24 22:56 Oxygen Flow Rate (L/min) 2 Oxygen Delivery Method Room Air Weight: 164 lb 3.91 oz Body Mass Index (BMI) 30.5 Intake & Output: Intake and Output for Last 24 Hours 11/15/24 11/16/24 11/17/24 23:59 23:59 23:59 Intake Total 1050 / 1050 600 / 600 Output Total 80 / 80 Balance 970 / 970 600 / 600 Lab / Micro Data 11/16/24 06:19 11/16/24 06:19
--- NOTE | 2024-11-17 09:21 | CASEMGMT ---
Met with patient to complete RODRIGUEZ form. RODRIGUEZ form explained to patient who voiced understanding and signed form. Original form placed in pt?s chart and copy provided to patient. *Discharge dated 11/16 was cancelled. Shani Kowalski, Discharge Planning Asst
[2024-11-17] MEDS: Allopurinol 100 MG Tablet PO (09:27)
[2024-11-17] MEDS: Pantoprazole Sodium 20 MG Tablet PO (09:27)
[2024-11-17] MEDS: glipiZIDE 2.5 MG TAB.ER.24 PO (09:27)
[2024-11-17] MEDS: amLODIPine 5 MG Tablet PO (09:27)
[2024-11-17] MEDS: Metoprolol Tartrate 50 MG Tablet PO (09:27)
--- NOTE | 2024-11-17 10:41 | PCM.DC.SUM ---
Providers Date of Admission: 11/15/24 Primary Care Physician: Dr. Tabatha Diaz MD Reason For Visit: INCARERATED HERNIA Diagnosis Discharge Diagnosis (1) Abdominal pain: Status: Acute Code(s): R10.9 - Unspecified abdominal pain Medications at Discharge Home Medications montelukast 10 mg tablet 10 mg PO DAILY PRN ASTHMA 12/17/13 aspirin 81 mg tablet,delayed release 81 mg PO DAILY HEART HEALTH 11/19/17 cetirizine 10 mg tablet (Zyrtec) 10 mg PO DAILY PRN allergies 02/15/20 allopurinol 100 mg tablet 100 mg PO DAILY GOUT 11/22/21 ipratropium 20 mcg-albuterol 100 mcg/actuation mist for inhalation (Combivent Respimat) 1 puff inhalation Q6H BREATHING 09/20/22 ferrous sulfate 325 mg (65 mg iron) tablet 325 mg PO DAILY SUPPLEMENT 10/04/22 furosemide 40 mg tablet (Lasix) 40 mg PO DAILY diuretic 12/25/22 cholecalciferol (vitamin D3) 25 mcg (1,000 unit) tablet 25 mcg PO SUTUTHSA vitamin 06/05/23 omeprazole 20 mg capsule,delayed release 20 mg PO DAILY reflux 11/04/23 ezetimibe 10 mg tablet (Zetia) 10 mg PO DAILY 02/27/24 prednisone 5 mg tablet 5 mg PO DAILY 02/27/24 albuterol sulfate 2.5 mg/3 mL (0.083 %) solution for nebulization 1.25 mg inhalation TID PRN shortness of breath or wheezing 05/09/24 ipratropium bromide 0.02 % solution for inhalation 0.5 mg inhalation TID PRN shortness of breath or wheezing 05/09/24 biotin 10,000 mcg capsule 10,000 mcg PO DAILY 06/10/24 folic acid 1 mg tablet 1 mg PO DAILY 06/10/24 glipizide 2.5 mg tablet, extended release 24 hr 2.5 mg PO BID 06/10/24 amlodipine 5 mg tablet 5 mg PO DAILY 08/25/24 spironolactone 25 mg tablet 25 mg PO QDAY HEART 08/25/24 levothyroxine 100 mcg tablet 100 mcg PO DAILY 11/15/24 metoprolol tartrate 50 mg tablet 50 mg PO DAILY 11/15/24 oxycodone 5 mg tablet 5 mg PO Q6H PRN pain 3 days #9 tabs 11/16/24 Hospital Course Operations - (Open right lower quadrant ventral hernia repair) Summary of Care Provided Minutes Spent on Discharge: 30 Hospital Course: Patient is an 79 y/o F who presented with lower right abdominal pain. CT scan of the ab/pel demonstrated right inguinal hernia containing small bowel loop which is fluid-filled. Dr. Mendoza performed an open right lower quadrant ventral hernia repair on 11/15/24. Patient tolerated the procedure well. Patient was slightly lethargic post-op day #1 and was unable to consume much nutrition. Patient was monitored for another night. Upon discharge, patient has improved mental status. She denies any nausea, vomiting. She is tolerating a transitional diet. She notes minimal right lower quadrant incisional discomfort. Physical Exam GI GI Narrative: Abdomen- soft, slight tenderness. Incision c/d/i. No erythema or infection noted. Slight amount of ecchymosis noted. Weight / BMI Weight Weight: 164 lb 3.91 oz Body Mass Index (BMI) 30.5 ABG / Lab / Microbiology Data 11/16/24 06:19 11/16/24 06:19 D/C Instructions Discharge Diet: Light diet - advance as tolerated Call your doctor if your incision/area has: Continuous Slow Oozing, Sudden Increased Bleeding, Increased Pain/ Swelling, Increased Redness, Foul Smelling Discharge and Swelling at the incision site Call your doctor if you observe: Fever of 101 or Higher Suture Line Care: Avoid Pulling/Pushing and Avoid Pinching/Bending Cleanse incision/area with: Soap & Water DC O2, CPAP, BIPAP Needs Home O2 Discharge instructions: No Please Follow Up With: Karin Summers PA-C When: Please contact our office at [phone], option #2 to schedule a 2 week follow-up Meaningful Use Info Meaningful Use Meaningful Use Diagnoses (Choose all that apply): None applicable Ischemic Stroke Statin Dosing Therapy Reference: STATIN DOSE THERAPY REFERENCE: * Patients > 75 years receive moderate or high dose statin therapy. * Patients 75 years or YOUNGER should receive HIGH intensity statin dose unless contraindicated. You will be required to document reason for non-treatment if statin daily dose does not meet guidelines. HIGH DOSE STATIN THERAPY DAILY Atorvastatin > than or = to 40 mg Rosuvastatin > than or = to 20 mg Amlodipine + Atorvastatin > than or = to 2.5/40 mg Ezetimibe + Simvastatin 10/80 mg Simvastatin 80mg Discharge Plan Admission Admit Date/Time: 11/15/24 17:43 Primary Reason for Your Visit: Incarcerated ventral hernia causing a bowel obstruction Attending Provider: Juancho Mendoza Primary Care Provider: Tabatha Diaz Instructions Additional Instructions / Restrictions: Hernia Diet ? Start light with soups and soft bland foods. You may advance diet as tolerated. Activity ? You may drive in 3-5 days but not while taking narcotic pain medication. ? I encourage walking. You may go up steps, one at a time. ? Do not swim or use hot tubs for 2 weeks. ? For comfort, you may use warm compresses or ice as needed for 15-20 minutes at a time. Lifting ? You may lift up to 10 pounds for 1 week. You may advance to 20 pounds for the next 5 weeks. Dressings/Incision ? You may shower OVER your incisions Medications ? Anesthesia used during surgery and pain medications may cause constipation. I recommend initiating on the day of surgery a fiber supplement like, Metamucil, Citrucel, FiberCon, Benefiber, or a generic form of these medications. 1 heaping tablespoon in water daily. You may continue to utilize any bowel regimen or oral laxatives that you routinely take. ? As long as you are not intolerant to Tylenol, acetaminophen, ibuprofen, Motrin, Advil, Aleve, or similar medications, I would recommend transitioning to these [id number] medicines as soon as possible instead of continued use of narcotic pain medication. Follow up ? You should call [facility] soon after surgery, at [phone] option 2 to make a follow up appointment for 10-14 days after your surgery. Discharge Orders/Prescriptions Prescriptions: New oxycodone 5 mg Tablet 5 mg PO Q6H PRN (Reason: pain) 3 Days Qty: 9 0RF Continued aspirin 81 mg tablet,delayed release (DR/EC) 81 mg PO DAILY cetirizine [Zyrtec] 10 mg tablet 10 mg PO DAILY PRN (Reason: allergies) allopurinol 100 mg tablet 100 mg PO DAILY furosemide [Lasix] 40 mg tablet 40 mg PO DAILY cholecalciferol (vitamin D3) 25 mcg (1,000 unit) tablet 25 mcg PO SUTUTHSA spironolactone 25 mg tablet 25 mg PO QDAY ferrous sulfate 325 mg (65 mg iron) tablet 325 mg PO DAILY prednisone 5 mg tablet 5 mg PO DAILY ezetimibe [Zetia] 10 mg tablet 10 mg PO DAILY amlodipine 5 mg tablet 5 mg PO DAILY Rx Instructions: Hold for SBP less than 130 mmHg montelukast 10 MG tablet 10 mg PO DAILY PRN (Reason: ASTHMA) Combivent Respimat 20-100 mcg/actuation mist 1 puff INHALATION Q6H Patient Comments: PT DOES HAVE THIS MEDICATION WITH HER. omeprazole 20 mg capsule,delayed release(DR/EC) 20 mg PO DAILY albuterol sulfate 2.5 mg /3 mL (0.083 %) solution for nebulization 1.25 mg inhalation TID PRN (Reason: shortness of breath or wheezing) ipratropium bromide 0.02 % solution 0.5 mg inhalation TID PRN (Reason: shortness of breath or wheezing) glipizide 2.5 mg tablet extended release 24hr 2.5 mg PO BID folic acid 1 mg tablet 1 mg PO DAILY biotin 10,000 mcg capsule 10,000 mcg PO DAILY levothyroxine 100 mcg tablet 100 mcg PO DAILY metoprolol tartrate 50 mg tablet 50 mg PO DAILY Referrals / Follow Up: Tabatha Diaz MD [Primary Care Provider] - 11/23/24 10:00 am Disposition Disposition (needs filled in before D/C Order can be placed): Home, Self Care Charges/Coding Visit Charges Inpatient E&M: 14202 Disch Hosp (No charge; post-op)
--- NOTE | 2024-11-17 16:37 | NURSING ---
All documentation by nursing education specialist Lea Sanabria reviewed by nursing program director Molly Loya BSN, RN.
--- NOTE | 2024-11-17 21:03 | NURSING ---
2030: DAUGHTER HERE TO TAKE PT HOME. ASSISTED PT TO WHEELCHAIR AND ESCORTED PT AND DAUGHTER DOWNSTAIRS TO DAUGHTER'S CAR. PT DENIES C/O OR QUESTIONS REGARDING D/C INFO. VSS, NO CHANGES TO REPORT
== END 2024-11-17 20:35 | disposition home or self-care (01) ==
LOC: ED 12:26 → AC 15:25 → MS3 18:55
PROVIDERS: Physician Assistant; Admitting Provider Surgery; Emergency Provider Surgery; PCP Internal Medicine; Visit Provider Surgery
PROC: (CPT 49594; principal; 2024-11-15 15:30)
DX: K43.6 Other and unspecified ventral hernia with obstruction, without gangrene (principal); I50.9 Heart failure, unspecified; I13.0 Hypertensive heart and chronic kidney disease with heart failure and stage 1 through stage 4 chronic kidney disease, or unspecified chronic kidney disease; J44.9 Chronic obstructive pulmonary disease, unspecified; E11.22 Type 2 diabetes mellitus with diabetic chronic kidney disease; Z79.890 Hormone replacement therapy; N18.9 Chronic kidney disease, unspecified; I25.10 Atherosclerotic heart disease of native coronary artery without angina pectoris; E78.5 Hyperlipidemia, unspecified; E87.20 Acidosis, unspecified; Z79.84 Long term (current) use of oral hypoglycemic drugs; K21.9 Gastro-esophageal reflux disease without esophagitis; Z79.899 Other long term (current) drug therapy; Z79.82 Long term (current) use of aspirin; E03.9 Hypothyroidism, unspecified
CPT/HCPCS: 49594; 00752; 36415; 74176; 80048; 80053; 81001; 82962; 83605; 85025; 88302; 94640; 94668; 96360; 99221; 99284; A4216; G0378; J2405

== ENCOUNTER 2024-12-03 11:23 | Emergency (ER) | payer MEDICARE, SELFPAY ==
[2021-03-16 09:07] VITALS: BMI 39.2
[2024-12-03] VITALS (7 sets, daily range): BP systolic 128–164; BP diastolic 51–71; PULSE 82–91; RESP 14–20; TEMP 36.6–36.8; O2SAT 98–100; BMI 30.4
--- NOTE | 2024-12-03 15:00 | EKG12_ITS ---
Test Reason : GENERAL Blood Pressure : */* mmHG Vent. Rate : 81 BPM Atrial Rate : 81 BPM P-R Int : 150 ms QRS Dur : 104 ms QT Int : 402 ms P-R-T Axes : 40 25 96 degrees QTcB Int : 466 ms Normal sinus rhythm Nonspecific ST and T wave abnormality Abnormal ECG Confirmed by ARNALDO DUQUE, DARLENE ([id number]), field map editor NIRAV DICKSON ([id number]) on 12/06/2024 9:20:06 AM Referred By: Confirmed By: DARLENE MCINTOSH MD
[2024-12-03 15:14] LABS: Absolute Lymphocyte Count 4.22 X10^3/uL (0.83-4.51); Absolute Neutrophil Count 7.4 X10^3/uL (2.0-7.7); Basophil# 0.07 X10^3/uL; Basophil% 0.5 % (0-1); Eosinophil# 0.23 X10^3/uL; Eosinophils% 1.8 % (0-5); Hemoglobin 10.7 g/dL (12.0-15.0); Lymphocyte # 4.22 X10^3/ul (0.83-4.51); Lymphocyte % 33.1 % (19-41); Mean Corp Hgb Conc 32.4 g/dL (32-36); Mean Corpuscular Hgb 30.9 pg (27.0-32.0); Mean Corpuscular Volume 95.4 fL (81-99); Mean Platelet Vol. 10.8 fl (6.2-12.0); Monocyte% 6.3 % (0-10); NRBC Flagged by Analyzer 0 % (0-5); Neutrophil # 7.39 X10^3/uL (2.7-7.7); Platelet Count 322 K/mm3 (150-450); RBC Distribution Width CV 13.8 % (11.6-14.6); RBC Distribution Width SD 48.1 fl (35.1-43.9); Red Blood Count 3.46 M/mm3 (4.2-5.4); White Blood Count 12.8 K/mm3 (4.4-11.0)
[2024-12-03 15:25] LABS: Mucous, Urine 0 SEEN /hpf (<or=2+)
--- NOTE | 2024-12-03 15:25 | RAD_ITS ---
PROCEDURE: CHEST PA AND LATERAL 12/03/2024 REASON FOR EXAM: WEAKNESS TECHNIQUE: Frontal and lateral views of the chest. COMPARISON: 06/10/2024 FINDINGS: The lungs are clear. No pleural effusion or pneumothorax. The cardiomediastinal silhouette is normal in size. 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 No acute osseous or soft tissue abnormality. Median sternotomy wires noted. RAD/Chest PA and Lateral IMPRESSION: No acute cardiopulmonary process. Reading Location: [facility]
[2024-12-03 15:34] LABS: Pro- Brain NATRIURETIC PEPTIDE 5040 pg/mL (<=1800)
[2024-12-03 15:36] LABS: Anion Gap 17 (5-15); BUN 20 mg/dL (4-19); BUN/Creat Ratio 9.1 RATIO (10-20); Calcium,Total 8.9 mg/dL (7.6-11.0); Carbon Dioxide 17.1 mmol/L (21.0-32.0); Chloride 100 mmol/L (98-108); Creatinine, Serum 2.24 mg/dL (0.70-1.20); EST Glomerular Filtration Rate 22 (>60); Estimated Creatinine Clearance 18.31 ml/min (50-250); Glucose 114 mg/dL (70-99); Sodium Level 134 mmol/L (133-145)
[2024-12-03 15:41] LABS: Color, Urine Yellow (Yellow); Glucose, Dipstick Normal (Normal); Ketone-Dipstick Negative (Negative); Leukocyte Esterase-Dipstick 500 /ul (Negative); Nitrite-Dipstick Positive (Negative); Occult Blood-Urine 50 /ul (Negative); Protein-Dipstick 100 mg/dl (Negative); Specific Gravity, Urine 1.015 (1.002-1.030); Urine Bilirubin Dipstick Negative (Negative); Urine Clarity Cloudy (Clear); Urine Urobilinogen Normal (Normal)
[2024-12-03 15:46] LABS: Troponin T High Sensitivity 47 ng/L (<=14)
[2024-12-03 15:52] LABS: Bacteria 2+ /hpf (None Seen); Red Blood Cells-Urine 0-5 SEEN /hpf (0-5); Squamous Epithelial Cells - UA 10-25 SEEN /hpf (5-10); White Blood Cells >100 SEEN /hpf (0-5)
[2024-12-03 17:00] LABS: Troponin T High Sens 2 HR 44 ng/L (<=14)
[2024-12-03] MEDS: Smz/Tmp Ds Tablet 1 TABLET PO (17:31)
[2024-12-03] MEDS: Ipratropium/Albuterol Sulfate 3 ML AMPUL.NEB INHALATION (17:31)
--- NOTE | 2024-12-03 17:37 | EX.ED.DYSGE1 ---
HPI History of Present Illness Chief Complaint: Weakness Informant: patient and family Onset/Context/Timing Onset: Weeks (2) Context: Gradual Onset Timing: Continuous Quality: Weak Location: Generalized Worsened by: Nothing Relieved by: Taking a nap Narrative Narrative: Patient presents with weakness and shakiness that has been getting worse over the past couple weeks. Patient states she feels weak all over. Patient states she feels fatigued. Patient states she feels better after taking a nap. Patient states nothing makes it worse. Patient admits to some subjective chills but denies any fevers. Patient admits to a sore throat. Patient admits to some nausea. Patient denies any chest pain or shortness of breath. Patient denies any vomiting. 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 Obesity Atherosclerosis of coronary artery bypass graft without angina pectoris Essential hypertension Type 2 diabetes mellitus without complication Vertigo GERD (gastroesophageal reflux disease) Asthma Hyperlipidemia Hypothyroidism Home Medications ?Medication ?Instructions ?Recorded ?Last Taken ?Type montelukast 10 mg tablet 10 mg PO DAILY PRN ASTHMA 12/17/13 11/13/24 History aspirin 81 mg tablet,delayed 81 mg PO DAILY HEART HEALTH 11/19/17 11/13/24 History release cetirizine 10 mg tablet (Zyrtec) 10 mg PO DAILY PRN allergies 02/15/20 06/09/24 History allopurinol 100 mg tablet 100 mg PO DAILY GOUT 11/22/21 11/13/24 History ipratropium 20 mcg-albuterol 100 1 puff inhalation Q6H BREATHING 09/20/22 11/13/24 History mcg/actuation mist for inhalation (Combivent Respimat) ferrous sulfate 325 mg (65 mg 325 mg PO DAILY SUPPLEMENT 10/04/22 11/13/24 History iron) tablet furosemide 40 mg tablet (Lasix) 40 mg PO DAILY diuretic 12/25/22 11/13/24 History cholecalciferol (vitamin D3) 25 25 mcg PO SUTUTHSA vitamin 06/05/23 11/13/24 History mcg (1,000 unit) tablet omeprazole 20 mg capsule,delayed 20 mg PO DAILY reflux 11/04/23 11/13/24 History release ezetimibe 10 mg tablet (Zetia) 10 mg PO DAILY 02/27/24 11/13/24 History prednisone 5 mg tablet 5 mg PO DAILY 02/27/24 11/13/24 History albuterol sulfate 2.5 mg/3 mL 1.25 mg inhalation TID PRN 05/09/24 11/15/24 History (0.083 %) solution for nebulization shortness of breath or wheezing ipratropium bromide 0.02 % 0.5 mg inhalation TID PRN 05/09/24 11/13/24 History solution for inhalation shortness of breath or wheezing biotin 10,000 mcg capsule 10,000 mcg PO DAILY 06/10/24 11/13/24 History folic acid 1 mg tablet 1 mg PO DAILY 06/10/24 11/13/24 History glipizide 2.5 mg tablet, extended 2.5 mg PO BID 06/10/24 11/13/24 History release 24 hr amlodipine 5 mg tablet 5 mg PO DAILY 08/25/24 11/13/24 History spironolactone 25 mg tablet 25 mg PO QDAY HEART 08/25/24 11/13/24 History levothyroxine 100 mcg tablet 100 mcg PO DAILY 11/15/24 11/13/24 History metoprolol tartrate 50 mg tablet 50 mg PO DAILY 11/15/24 11/13/24 History oxycodone 5 mg tablet 5 mg PO Q6H PRN pain 3 days #9 tabs 11/16/24 Unknown Rx cephalexin 500 mg capsule 500 mg PO Q6 #12 CAPSULES 12/03/24 Unknown Rx Allergy/AdvReac Type Severity Reaction Status Date / Time Anesthetics - Amide Type - Allergy Other Verified 12/03/24 11:24 Select A (Anesthetics - Amide Type) acetaminophen (From Tylenol) AdvReac Severe Other Verified 12/03/24 11:24 pravastatin AdvReac Intermediate Myalgias Verified 12/03/24 11:24 after 15 years of taking cinnamon AdvReac Unknown Unknown Verified 12/03/24 11:24 Penicillins AdvReac Unknown Unknown Verified 12/03/24 11:24 ezetimibe (From Zetia) AdvReac myalgias Verified 12/03/24 11:24 leflunomide AdvReac Chest Verified 12/03/24 11:24 tightness Family History Mother , age 86, advanced age No problems noted. Father Prostate cancer Surgical History History of coronary artery stent placement (01/26/21) H/O coronary artery bypass surgery (10/11/07) Hx of bilateral cataract extraction History of hysterectomy Hx of appendectomy History of cholecystectomy Social History household members: family housing: house Smoking Status: Never smoker alcohol intake: never substance use type: does not use caffeine: Yes Type: carbonated beverages what type of physical activity do you participate in: none seatbelt use: always do you feel safe at home: Yes ROS ROS ED Constitutional Constitutional ED: Reports chills and subjective; Denies fever(s) Eyes Eyes: Denies blurry vision or change in vision ENT ENT ED: Reports sore throat; Denies rhinorrhea Cardiovascular Cardiovascular: Denies chest pain or palpitations Respiratory/Chest Respiratory/Chest: Denies cough or dyspnea Gastrointestinal Gastrointestinal: Reports nausea; Denies vomiting Genitourinary Genitourinary ED: Denies dysuria or hematuria Musculoskeletal Musculoskeletal: Denies back pain or neck pain Integumentary Denies abscess or rash Neurologic Neurologic: Reports weakness; Denies headache(s) Allergic/Immunologic Allergic/Immunologic ED: Denies mouth swelling or urticaria EXAM Physical Exam Const Vital Signs: 12/03/24 11:24 12/03/24 11:26 12/03/24 14:15 Temperature 98 F 98 F 98.1 F Temperature Source Oral Oral Oral Pulse Rate 91 91 84 Respiratory Rate 16 16 14 Respiratory Pattern Blood Pressure 164/71 H 164/71 H 128/51 H Blood Pressure Mean 102 102 76 Pulse Ox 98 98 100 Oxygen Delivery Method Room Air Room Air Room Air 12/03/24 15:00 12/03/24 16:51 12/03/24 17:31 Temperature 98.1 F Temperature Source Oral Pulse Rate 82 83 83 Respiratory Rate 14 20 H 20 H Respiratory Pattern Normal Blood Pressure 149/66 H 150/66 H Blood Pressure Mean 93 94 Pulse Ox 100 99 Oxygen Delivery Method 12/03/24 17:41 Temperature 98.2 F Temperature Source Pulse Rate 83 Respiratory Rate 15 Respiratory Pattern Blood Pressure 140/53 H Blood Pressure Mean 82 Pulse Ox 100 Oxygen Delivery Method Positive well nourished and well developed General Appearance ED: well developed and NAD HEENT Reports moist mucous membranes Neck supple and no JVD Resp normal respiratory effort and clear to auscultation bilaterally Cardio regular rate and regular rhythm GI non-tender and non-distended Palpation: soft Neuro oriented x3, CN's II-XII intact bilaterally and no sensory deficits noted Sensorium / Orientation: alert Motor Exam: strength 5/5 throughout Psych mental status grossly normal MDM MDM MDM Narrative Medical decision making narrative: Differential diagnose includes cardiac dysrhythmia, cardiac ischemia, pneumonia, bronchitis, urinary tract infection, electrolyte abnormality, anemia, and viral illness. CBC will be obtained to assess for leukocytosis and anemia. Basic metabolic profile will be obtained to assess for electrolyte abnormality and renal function. High-sensitivity troponin will be obtained to assess for cardiac ischemia. 2-hour repeat high-sensitivity troponin will be obtained to assess for ongoing cardiac ischemia. BNP will be obtained to assess for congestive heart failure. EKG will be obtained to assess for cardiac dysrhythmia and cardiac ischemia. Chest x-ray will be obtained to assess for pneumonia and bronchitis. COVID-19, influenza, and RSV PCR will be obtained to assess for viral illness. Lab Data Attestation: I reviewed the patient's lab results. Lab results narrative: CBC was reviewed. There is a mild leukocytosis of 12.8. Hemoglobin was 10.7 and 33.0. Basic metabolic profile was reviewed. BUN was slightly elevated at 20 and creatinine was 2.24. This is consistent with previous results. High-sensitivity troponin was reviewed and was 47. 2-hour repeat high-sensitivity troponin was reviewed and was 44. BNP was reviewed and was mildly elevated at 5040. Urinalysis was reviewed. There are positive nitrates. Leukocyte esterase was 500. There were greater than 100 white blood cells. There is 2+ bacteria. COVID-19 PCR was reviewed and was negative. Influenza PCR was reviewed and was negative for influenza A and influenza B. RSV PCR was reviewed and was negative. Labs: Laboratory Results - last 24 hr 12/03/24 12/03/24 12/03/24 14:28 15:00 16:15 WBC 12.8 H RBC 3.46 L Hgb 10.7 L Hct 33.0 L MCV 95.4 MCH 30.9 MCHC 32.4 RDW Std Deviation 48.1 H RDW Coeff of Kamar 13.8 Plt Count 322 MPV 10.8 Immature Gran % (Auto) 0.300 Neut % (Auto) 58.0 Lymph % (Auto) 33.1 Kane % (Auto) 6.3 Eos % (Auto) 1.8 Baso % (Auto) 0.5 Absolute Neuts (auto) 7.4 Absolute Lymphs (auto) 4.22 Nucleated RBC % 0 Sodium 134 Potassium 4.0 Chloride 100 Carbon Dioxide 17.1 L Anion Gap 17 H BUN 20 H Creatinine 2.24 H Estim Creat Clear Calc 18.31 L Est GFR (MDRD) Non-Af 22 L BUN/Creatinine Ratio 9.1 L Glucose 114 H Calcium 8.9 Troponin T High Sens 47 H Troponin T Hi Sens 2 Hr 44 H NT pro BNP II 5040 H Urine Color Yellow Urine Clarity Cloudy Urine pH 6.0 Ur Specific [place] 1.015 Urine Protein 100 H Urine Glucose (UA) Normal Urine Ketones Negative Urine Occult Blood 50 H Urine Nitrite Positive H Urine Bilirubin Negative Urine Urobilinogen Normal Ur Leukocyte Esterase 500 H Urine RBC 0-5 SEEN Urine WBC >100 SEEN Ur Squamous Epith Cells 10-25 SEEN Urine Bacteria 2+ Urine Mucus 0 SEEN Radiography Chest X-Ray - ED: 2 View, Read by ED Physician, Read by Radiologist and No Acute Disease Diagnostic Testing: Clinical Impression(s) from Imaging Studies Chest X-Ray 12/03/24 15:25 IMPRESSION: No acute cardiopulmonary process. Reading Location: [facility] [place] and lateral chest x-ray was obtained. There are 2 views. On my independent interpretation, lung myles are clear. There is normal cardiac silhouette. Bony thorax is normal. There is no acute process noted. Radiologist also interpreted the x-ray and agrees. EKG Initial EKG: Attestation: I personally reviewed and interpreted this EKG as follows: Interpretation: Sinus Rhythm (81) and Non-Specific ST Changes Comments: EKG was obtained. On my independent interpretation, it showed a normal sinus rhythm with a rate of 81. NM interval, QRS interval, and QTc intervals were all normal. Emmalena was normal. There are nonspecific ST-T wave changes. Prior EKG tracings: available for review Prior: Unchanged (06/10/2024) Treatment and Re-Evaluation :: Patient doing a DuoNeb aerosol here. Patient was advised of the findings. Patient was given a dose of Bactrim here. Patient given prescription for Bactrim. Urine culture was ordered. Patient was instructed to follow-up with her primary care physician in 5 to 7 days. Patient was instructed to drink plenty of fluids. Patient understood and was agreeable with the plan. All questions were answered. Discharge Plan Triage Chief Complaint: Weakness ED Provider: Alfonso Padilla Dx/Rx/DC Orders Clinical Impression: Urinary tract infection, Weakness generalized Instructions: ED Cystitis Female Adult Prescriptions: New cephalexin 500 mg capsule 500 mg PO Q6 Qty: 12 0RF No Action aspirin 81 mg tablet,delayed release (DR/EC) 81 mg PO DAILY cetirizine [Zyrtec] 10 mg tablet 10 mg PO DAILY PRN (Reason: allergies) allopurinol 100 mg tablet 100 mg PO DAILY furosemide [Lasix] 40 mg tablet 40 mg PO DAILY cholecalciferol (vitamin D3) 25 mcg (1,000 unit) tablet 25 mcg PO SUTUTHSA spironolactone 25 mg tablet 25 mg PO QDAY ferrous sulfate 325 mg (65 mg iron) tablet 325 mg PO DAILY prednisone 5 mg tablet 5 mg PO DAILY ezetimibe [Zetia] 10 mg tablet 10 mg PO DAILY amlodipine 5 mg tablet 5 mg PO DAILY Rx Instructions: Hold for SBP less than 130 mmHg montelukast 10 MG tablet 10 mg PO DAILY PRN (Reason: ASTHMA) Combivent Respimat 20-100 mcg/actuation mist 1 puff INHALATION Q6H Patient Comments: PT DOES HAVE THIS MEDICATION WITH HER. omeprazole 20 mg capsule,delayed release(DR/EC) 20 mg PO DAILY albuterol sulfate 2.5 mg /3 mL (0.083 %) solution for nebulization 1.25 mg inhalation TID PRN (Reason: shortness of breath or wheezing) ipratropium bromide 0.02 % solution 0.5 mg inhalation TID PRN (Reason: shortness of breath or wheezing) glipizide 2.5 mg tablet extended release 24hr 2.5 mg PO BID folic acid 1 mg tablet 1 mg PO DAILY biotin 10,000 mcg capsule 10,000 mcg PO DAILY levothyroxine 100 mcg tablet 100 mcg PO DAILY metoprolol tartrate 50 mg tablet 50 mg PO DAILY oxycodone 5 mg Tablet 5 mg PO Q6H PRN (Reason: pain) 3 Days Qty: 9 0RF Primary Care Provider: Tabatha Diaz Referrals: Tabatha Diaz MD [Primary Care Provider] - 3-5 Days Print Language: Kiswahili Disposition Disposition: Home, Self Care Discharge Date/Time: 12/03/24 17:51
== END 2024-12-03 17:51 | disposition home or self-care (01) ==
PROVIDERS: Emergency Provider Emergency Medicine; PCP Internal Medicine; Visit Provider Emergency Medicine
DX: N39.0 Urinary tract infection, site not specified (principal); I13.0 Hypertensive heart and chronic kidney disease with heart failure and stage 1 through stage 4 chronic kidney disease, or unspecified chronic kidney disease; J44.9 Chronic obstructive pulmonary disease, unspecified; E11.22 Type 2 diabetes mellitus with diabetic chronic kidney disease; N18.9 Chronic kidney disease, unspecified; I25.2 Old myocardial infarction; I25.10 Atherosclerotic heart disease of native coronary artery without angina pectoris; K21.9 Gastro-esophageal reflux disease without esophagitis; E78.5 Hyperlipidemia, unspecified; E03.9 Hypothyroidism, unspecified; Z88.0 Allergy status to penicillin; Z95.1 Presence of aortocoronary bypass graft; Z86.73 Personal history of transient ischemic attack (TIA), and cerebral infarction without residual deficits; Z79.82 Long term (current) use of aspirin; Z79.84 Long term (current) use of oral hypoglycemic drugs; Z79.890 Hormone replacement therapy; Z79.899 Other long term (current) drug therapy; Z90.49 Acquired absence of other specified parts of digestive tract
CPT/HCPCS: 71046; 80048; 81001; 83880; 84484; 85025; 87631; 93005; 94640; 99284

== ENCOUNTER 2025-01-17 16:36 | Emergency (ER) | payer MEDICARE, SELFPAY ==
[2021-03-16 09:07] VITALS: BMI 39.2
[2025-01-17 16:37] VITALS: BP 159/73; PULSE 67; RESP 19; TEMP 36.6; O2SAT 100; BMI 28.2
--- NOTE | 2025-01-17 16:39 | EKG12_ITS ---
Test Reason : CP Blood Pressure : */* mmHG Vent. Rate : 69 BPM Atrial Rate : 69 BPM P-R Int : 164 ms QRS Dur : 100 ms QT Int : 424 ms P-R-T Axes : 24 38 97 degrees QTcB Int : 454 ms Normal sinus rhythm with sinus arrhythmia ST & T wave abnormality, consider lateral ischemia Abnormal ECG Confirmed by Beto Strong ([id number]), news editor SUKHDEEP CONTRERAS ([id number]) on 01/18/2025 9:16:11 AM Referred By: Confirmed By: Beto Strong
--- NOTE | 2025-01-17 18:25 | ED.VIS.CHEST ---
HPI History of Present Illness Chief Complaint: Chest Pain Informant: patient Narrative Narrative: 79-year-old female with a history of significant CAD states she woke up at 3 AM which was about 15 hours ago with substernal chest pain that she describes as chest pain. It was nonpleuritic, she took a few aspirin, and then went away. Lasted about 20 minutes total and has not come back since. States with all of the multiple stents she has had placed and CABG, she does not recall ever having chest pain, so this was different but she is concerned this may have been her heart. She states her asthma/COPD has felt worse all day, she usually does nebulizer treatments 4 times a day but today she has been doing them about double that and she feels like she is ready for another 1 because it has been about 3 hours since she has had 1. She denies any increased coughing. She is allergic to everything outside that grows in the spring, but states she has not been out a lot lately and she was doing fine yesterday. [facility] Medical History Incarcerated ventral hernia Chest pain Elevated troponin Urinary tract infection Elevated lactic acid level Weakness generalized Incarcerated hernia of abdominal cavity CHF (congestive heart failure) Anemia NSTEMI (non-ST elevated myocardial infarction) Cardiomyopathy COVID-19 (~04/2022) Insect bite History of non-ST elevation myocardial infarction (NSTEMI) (01/26/21) COPD (chronic obstructive pulmonary disease) Morbid obesity TIA (transient ischemic attack) Arm paresthesia, right CKD (chronic kidney disease) Atherosclerotic heart disease of [place] coronary artery without angina 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 Obesity Atherosclerosis of coronary artery bypass graft without angina pectoris Essential hypertension Type 2 diabetes mellitus without complication Vertigo GERD (gastroesophageal reflux disease) Asthma Hyperlipidemia Hypothyroidism Home Medications ?Medication ?Instructions ?Recorded ?Last Taken ?Type montelukast 10 mg tablet 10 mg PO DAILY PRN ASTHMA 12/17/13 11/13/24 History aspirin 81 mg tablet,delayed 81 mg PO DAILY HEART HEALTH 11/19/17 11/13/24 History release cetirizine 10 mg tablet (Zyrtec) 10 mg PO DAILY PRN allergies 02/15/20 06/09/24 History allopurinol 100 mg tablet 100 mg PO DAILY GOUT 11/22/21 11/13/24 History ipratropium 20 mcg-albuterol 100 1 puff inhalation Q6H BREATHING 09/20/22 11/13/24 History mcg/actuation mist for inhalation (Combivent Respimat) ferrous sulfate 325 mg (65 mg 325 mg PO DAILY SUPPLEMENT 10/04/22 11/13/24 History iron) tablet furosemide 40 mg tablet (Lasix) 40 mg PO DAILY diuretic 12/25/22 11/13/24 History cholecalciferol (vitamin D3) 25 25 mcg PO SUTUTHSA vitamin 06/05/23 11/13/24 History mcg (1,000 unit) tablet omeprazole 20 mg capsule,delayed 20 mg PO DAILY reflux 11/04/23 11/13/24 History release ezetimibe 10 mg tablet (Zetia) 10 mg PO DAILY 02/27/24 11/13/24 History prednisone 5 mg tablet 5 mg PO DAILY 02/27/24 11/13/24 History Held on 01/17/25. Instructions: while on higher-dose prednisone albuterol sulfate 2.5 mg/3 mL 1.25 mg inhalation TID PRN 05/09/24 11/15/24 History (0.083 %) solution for nebulization shortness of breath or wheezing ipratropium bromide 0.02 % 0.5 mg inhalation TID PRN 05/09/24 11/13/24 History solution for inhalation shortness of breath or wheezing biotin 10,000 mcg capsule 10,000 mcg PO DAILY 06/10/24 11/13/24 History folic acid 1 mg tablet 1 mg PO DAILY 06/10/24 11/13/24 History glipizide 2.5 mg tablet, extended 2.5 mg PO BID 06/10/24 11/13/24 History release 24 hr amlodipine 5 mg tablet 5 mg PO DAILY 08/25/24 11/13/24 History spironolactone 25 mg tablet 25 mg PO QDAY HEART 08/25/24 11/13/24 History levothyroxine 100 mcg tablet 100 mcg PO DAILY 11/15/24 11/13/24 History metoprolol tartrate 50 mg tablet 50 mg PO DAILY 11/15/24 11/13/24 History oxycodone 5 mg tablet 5 mg PO Q6H PRN pain 3 days #9 tabs 11/16/24 Unknown Rx cephalexin 500 mg capsule 500 mg PO Q6 #12 CAPSULES 12/03/24 Unknown Rx prednisone 20 mg tablet 40 mg (2 x 20 mg) PO DAILY 4 days 01/17/25 Unknown Rx #8 tabs Allergy/AdvReac Type Severity Reaction Status Date / Time Anesthetics - Amide Type - Allergy Other Verified 01/17/25 16:37 Select A (Anesthetics - Amide Type) acetaminophen (From Tylenol) AdvReac Severe Other Verified 01/17/25 16:37 pravastatin AdvReac Intermediate Myalgias Verified 01/17/25 16:37 after 15 years of taking cinnamon AdvReac Unknown Unknown Verified 01/17/25 16:37 Penicillins AdvReac Unknown Unknown Verified 01/17/25 16:37 ezetimibe (From Zetia) AdvReac myalgias Verified 01/17/25 16:37 leflunomide AdvReac Chest Verified 01/17/25 16:37 tightness Family History Mother , age 86, advanced age No problems noted. Father Prostate cancer Surgical History History of ventral hernia repair History of coronary artery stent placement (01/26/21) H/O coronary artery bypass surgery (10/11/07) Hx of bilateral cataract extraction History of hysterectomy Hx of appendectomy History of cholecystectomy Social History household members: family housing: house Smoking Status: Never smoker alcohol intake: never substance use type: does not use caffeine: Yes Type: carbonated beverages what type of physical activity do you participate in: none seatbelt use: always do you feel safe at home: Yes ROS ROS ED Constitutional Constitutional ED: Denies chills or fever(s) Eyes Eyes: Denies change in vision or diplopia ENT ENT ED: Denies rhinorrhea or sore throat Cardiovascular Cardiovascular: Reports chest pain; Denies palpitations Respiratory/Chest Respiratory/Chest: Reports chest tightness and dyspnea; Denies cough or sputum Gastrointestinal Gastrointestinal: Denies abdominal pain, diarrhea, nausea or vomiting Genitourinary Genitourinary ED: Denies dysuria or hematuria Musculoskeletal Musculoskeletal: Denies back pain or neck pain Integumentary Denies abscess or rash Neurologic Neurologic: Denies headache(s), paresthesias or weakness Psychiatric Psychiatric: Denies suicidal thoughts EXAM Physical Exam Const Vital Signs: 01/17/25 16:37 01/17/25 18:33 01/17/25 18:33 Temperature 98 F Temperature Source Oral Pulse Rate 67 65 Respiratory Rate 19 H 15 Respiratory Effort Respiratory Pattern Blood Pressure 159/73 H Blood Pressure Mean 101 Pulse Ox 100 100 100 Oxygen Delivery Method Room Air Room Air Room Air 01/17/25 18:34 01/17/25 18:38 01/17/25 19:00 Temperature Temperature Source Pulse Rate 68 62 Respiratory Rate 16 12 Respiratory Effort Short of Breath Respiratory Pattern Normal Blood Pressure 140/61 H Blood Pressure Mean 87 Pulse Ox 100 Oxygen Delivery Method Room Air 01/17/25 19:54 Temperature Temperature Source Pulse Rate 68 Respiratory Rate 16 Respiratory Effort Respiratory Pattern Blood Pressure 136/50 H Blood Pressure Mean 78 Pulse Ox 97 Oxygen Delivery Method Room Air Positive well nourished and well developed General Appearance ED: well developed and NAD HEENT Reports moist mucous membranes normocephalic and atraumatic Eyes PERRL and EOMs intact bilaterally Neck full ROM and supple Resp normal respiratory effort and clear to auscultation bilaterally Resp Narrative: Conversing in full sentences. Diffusely diminished but otherwise fairly clear. Cardio regular rate, regular rhythm and no murmurs GI non-tender and non-distended Auscultation: normoactive bowel sounds Palpation: soft Back/Spine no CVA tenderness General Back: other FROM Extremity normal to inspection General Extremety ED: Negative for edema, pulses abnormal or tenderness General Extremity: Negative for edema or pulses abnormal Neuro oriented x3, CN's II-XII intact bilaterally and no sensory deficits noted Sensorium / Orientation: awake and alert Motor Exam: strength 5/5 throughout Skin no rashes or lesions noted and no wounds Heart Score History: Slightly/Non-Suspicious ECG: Nonspecific Repolarization (but unchanged c/w prior) Age: >/= 65 years Risk Factors: >/= 3 Risk Factors or History of CAD Score: 5 MDM MDM MDM Narrative Medical decision making narrative: Patient currently pain-free. She has some lateral T wave inversions, these are unchanged compared with her prior EKG, so this looks to be baseline. She was given a nebulizer treatment at her request, she felt better and did not require any more. She declined steroids right now. Chest x-ray 1 view on my interpretation negative for pneumonia. Her initial troponin came back at 56, she has chronic kidney disease and I suspect this is probably related based on her second troponin at 45. Her kidney function is stable. This is not indicative of acute coronary syndrome or an NSTEMI. Patient reassured, she was offered a prescription for prednisone which she will take, short burst, but she does not want a dose right now. Advised to follow-up or return if worse. She is comfortable with that plan. Lab Data Attestation: I reviewed the patient's lab results. Labs: Laboratory Results - last 24 hr 01/17/25 01/17/25 18:17 20:00 WBC 10.8 RBC 3.46 L Hgb 10.8 L Hct 33.8 L MCV 97.7 MCH 31.2 MCHC 32.0 RDW Std Deviation 50.7 H RDW Coeff of Kamar 14.2 Plt Count 303 MPV 10.4 Immature Gran % (Auto) 0.400 Neut % (Auto) 53.9 Lymph % (Auto) 36.0 [place] % (Auto) 7.0 Eos % (Auto) 1.9 Baso % (Auto) 0.8 Absolute Neuts (auto) 5.8 Absolute Lymphs (auto) 3.87 Nucleated RBC % 0 Sodium 134 Potassium 4.6 Chloride 101 Carbon Dioxide 19.3 L Anion Gap 13 BUN 44 H Creatinine 2.34 H Estim Creat Clear Calc 16.89 L Est GFR (MDRD) Non-Af 21 L BUN/Creatinine Ratio 18.7 Glucose 108 H Calcium 9.0 Troponin T High Sens 56 H* D Troponin T Hi Sens 2 Hr 45 H Rhythm Strip Rhythm Strip: Sinus Rhythm Rate: 70 Ectopy: None EKG Initial EKG: Attestation: I personally reviewed and interpreted this EKG as follows: Interpretation: Sinus Rhythm, No Acute Injury Pattern and Non-Specific ST Changes (lateral I, aVL) Prior EKG tracings: available for review Prior: Unchanged Discharge Plan Triage Chief Complaint: Chest Pain ED Provider: Diogo Lee Dx/Rx/DC Orders Clinical Impression: Chest pain, Acute asthma exacerbation Instructions: ED Chest Pain, Uncertain Cause Prescriptions: New prednisone 20 mg tablet 40 mg PO DAILY 4 Days Qty: 8 0RF Continued aspirin 81 mg tablet,delayed release (DR/EC) 81 mg PO DAILY cetirizine [Zyrtec] 10 mg tablet 10 mg PO DAILY PRN (Reason: allergies) allopurinol 100 mg tablet 100 mg PO DAILY furosemide [Lasix] 40 mg tablet 40 mg PO DAILY cholecalciferol (vitamin D3) 25 mcg (1,000 unit) tablet 25 mcg PO SUTUTHSA spironolactone 25 mg tablet 25 mg PO QDAY ferrous sulfate 325 mg (65 mg iron) tablet 325 mg PO DAILY ezetimibe [Zetia] 10 mg tablet 10 mg PO DAILY amlodipine 5 mg tablet 5 mg PO DAILY Rx Instructions: Hold for SBP less than 130 mmHg montelukast 10 MG tablet 10 mg PO DAILY PRN (Reason: ASTHMA) Combivent Respimat 20-100 mcg/actuation mist 1 puff INHALATION Q6H Patient Comments: PT DOES HAVE THIS MEDICATION WITH HER. omeprazole 20 mg capsule,delayed release(DR/EC) 20 mg PO DAILY albuterol sulfate 2.5 mg /3 mL (0.083 %) solution for nebulization 1.25 mg inhalation TID PRN (Reason: shortness of breath or wheezing) ipratropium bromide 0.02 % solution 0.5 mg inhalation TID PRN (Reason: shortness of breath or wheezing) glipizide 2.5 mg tablet extended release 24hr 2.5 mg PO BID folic acid 1 mg tablet 1 mg PO DAILY biotin 10,000 mcg capsule 10,000 mcg PO DAILY levothyroxine 100 mcg tablet 100 mcg PO DAILY metoprolol tartrate 50 mg tablet 50 mg PO DAILY oxycodone 5 mg Tablet 5 mg PO Q6H PRN (Reason: pain) 3 Days Qty: 9 0RF cephalexin 500 mg capsule 500 mg PO Q6 Qty: 12 0RF Held prednisone 5 mg tablet 5 mg PO DAILY Hold Instructions: while on higher-dose prednisone Primary Care Provider: Tabatha Diaz Referrals: Tabatha Diaz MD [Primary Care Provider] - 3-5 Days if not improving Print Language: Czech Disposition Disposition: Home, Self Care
[2025-01-17 18:33] VITALS: PULSE 65; RESP 15; O2SAT 100
[2025-01-17 18:34] VITALS: PULSE 68; RESP 16
[2025-01-17] MEDS: Ipratropium/Albuterol Sulfate 3 ML AMPUL.NEB INHALATION (18:34)
[2025-01-17 18:43] LABS: Absolute Lymphocyte Count 3.87 X10^3/uL (0.83-4.51); Absolute Neutrophil Count 5.8 X10^3/uL (2.0-7.7); Basophil# 0.09 X10^3/uL; Basophil% 0.8 % (0-1); Eosinophils% 1.9 % (0-5); Hematocrit 33.8 % (37-47); Hemoglobin 10.8 g/dL (12.0-15.0); Lymphocyte # 3.87 X10^3/ul (0.83-4.51); Mean Corpuscular Hgb 31.2 pg (27.0-32.0); Mean Corpuscular Volume 97.7 fL (81-99); Mean Platelet Vol. 10.4 fl (6.2-12.0); Monocyte# 0.75 X10^3/uL; NRBC Flagged by Analyzer 0 % (0-5); Neutrophil % 53.9 % (47-70); Platelet Count 303 K/mm3 (150-450); RBC Distribution Width CV 14.2 % (11.6-14.6); RBC Distribution Width SD 50.7 fl (35.1-43.9); Red Blood Count 3.46 M/mm3 (4.2-5.4); White Blood Count 10.8 K/mm3 (4.4-11.0)
[2025-01-17 18:50] LABS: Anion Gap 13 (5-15); BUN 44 mg/dL (4-19); BUN/Creat Ratio 18.7 RATIO (10-20); Carbon Dioxide 19.3 mmol/L (21.0-32.0); Chloride 101 mmol/L (98-108); Creatinine, Serum 2.34 mg/dL (0.70-1.20); EST Glomerular Filtration Rate 21 (>60); Estimated Creatinine Clearance 16.89 ml/min (50-250); Glucose 108 mg/dL (70-99); Potassium 4.6 mmol/L (3.3-5.1); Sodium Level 134 mmol/L (133-145)
[2025-01-17 18:55] LABS: Troponin T High Sensitivity 56 ng/L (<=14)
--- NOTE | 2025-01-17 18:55 | RAD_ITS ---
EXAM: XR Chest, 1 View CLINICAL INDICATION: CHEST PAIN TECHNIQUE: Frontal view of the chest. COMPARISON: No relevant prior studies available. FINDINGS: LUNGS AND PLEURAL SPACES: Unremarkable. No consolidation. No pneumothorax. HEART: Unremarkable. No cardiomegaly. MEDIASTINUM: Unremarkable. Normal mediastinal contour. BONES/JOINTS: Unremarkable. No acute fracture. RAD/Chest 1 View (Portable) IMPRESSION: No acute cardiopulmonary process. Reading Location: [id number]
[2025-01-17 19:00] VITALS: BP 140/61; PULSE 62; RESP 12; O2SAT 100
[2025-01-17 19:54] VITALS: BP 136/50; PULSE 68; RESP 16; O2SAT 97
[2025-01-17 20:43] LABS: Troponin T High Sens 2 HR 45 ng/L (<=14)
[2025-01-17 20:58] VITALS: BP 130/51; PULSE 82; RESP 14; TEMP 36.6; O2SAT 97
== END 2025-01-17 21:02 | disposition home or self-care (01) ==
PROVIDERS: Emergency Provider Emergency Medicine; PCP Internal Medicine; Visit Provider Emergency Medicine
DX: R07.89 Other chest pain (principal); I50.9 Heart failure, unspecified; I13.0 Hypertensive heart and chronic kidney disease with heart failure and stage 1 through stage 4 chronic kidney disease, or unspecified chronic kidney disease; J44.9 Chronic obstructive pulmonary disease, unspecified; E11.22 Type 2 diabetes mellitus with diabetic chronic kidney disease; I25.10 Atherosclerotic heart disease of native coronary artery without angina pectoris; N18.9 Chronic kidney disease, unspecified; E78.5 Hyperlipidemia, unspecified; J45.901 Unspecified asthma with (acute) exacerbation; Z95.5 Presence of coronary angioplasty implant and graft; K21.9 Gastro-esophageal reflux disease without esophagitis
CPT/HCPCS: 71045; 80048; 84484; 85025; 93005; 94640; 99283; A4216

== ENCOUNTER 2025-01-23 12:17 | Emergency (ER) | payer MEDICARE, SELFPAY ==
[2021-03-16 09:07] VITALS: BMI 39.2
[2025-01-23] VITALS (9 sets, daily range): BP systolic 138–165; BP diastolic 47–76; PULSE 73–85; RESP 13–24; TEMP 36.4; O2SAT 96–100; BMI 28.5
--- NOTE | 2025-01-23 12:34 | EKG12_ITS ---
Test Reason : CP Blood Pressure : */* mmHG Vent. Rate : 87 BPM Atrial Rate : 87 BPM P-R Int : 158 ms QRS Dur : 102 ms QT Int : 378 ms P-R-T Axes : 41 42 104 degrees QTcB Int : 454 ms Normal sinus rhythm ST & T wave abnormality, consider lateral ischemia Abnormal ECG Confirmed by ARNALDO DUQUE, DARLENE ([id number]), restaurant expeditor NIRAV DICKSON ([id number]) on 01/24/2025 9:26:44 AM Referred By: Confirmed By: DARLENE MCINTOSH MD
[2025-01-23 12:52] LABS: Absolute Lymphocyte Count 0.78 X10^3/uL (0.83-4.51); Absolute Neutrophil Count 5.1 X10^3/uL (2.0-7.7); Basophil# 0.02 X10^3/uL; Basophil% 0.3 % (0-1); Hematocrit 32.8 % (37-47); Hemoglobin 10.7 g/dL (12.0-15.0); Lymphocyte # 0.78 X10^3/ul (0.83-4.51); Lymphocyte % 12.8 % (19-41); Mean Corp Hgb Conc 32.6 g/dL (32-36); Mean Corpuscular Hgb 30.8 pg (27.0-32.0); Mean Corpuscular Volume 94.5 fL (81-99); Mean Platelet Vol. 10.3 fl (6.2-12.0); Monocyte# 0.17 X10^3/uL; Monocyte% 2.8 % (0-10); NRBC Flagged by Analyzer 0 % (0-5); Neutrophil # 5.07 X10^3/uL (2.7-7.7); Neutrophil % 83.4 % (47-70); Platelet Count 316 K/mm3 (150-450); RBC Distribution Width CV 14.1 % (11.6-14.6); RBC Distribution Width SD 48.2 fl (35.1-43.9); Red Blood Count 3.47 M/mm3 (4.2-5.4); White Blood Count 6.1 K/mm3 (4.4-11.0)
--- NOTE | 2025-01-23 13:05 | RAD_ITS ---
EXAM: XR Chest, 2 Views CLINICAL INDICATION: CHEST PAIN TECHNIQUE: Frontal and lateral views of the chest. COMPARISON: XR Chest dated 01/17/2025 FINDINGS: LUNGS AND PLEURAL SPACES: Unremarkable. No consolidation. No pneumothorax. HEART: Unremarkable. No cardiomegaly. MEDIASTINUM: Unremarkable. Normal mediastinal contour. BONES/JOINTS: Unremarkable. No acute fracture. RAD/Chest PA and Lateral IMPRESSION: No acute cardiopulmonary process. Reading Location: [id number]
[2025-01-23 13:21] LABS: Anion Gap 14 (5-15); BUN 53 mg/dL (4-19); BUN/Creat Ratio 19.4 RATIO (10-20); Calcium,Total 9.5 mg/dL (7.6-11.0); Carbon Dioxide 18.5 mmol/L (21.0-32.0); Chloride 99 mmol/L (98-108); Creatinine, Serum 2.73 mg/dL (0.70-1.20); EST Glomerular Filtration Rate 17 (>60); Estimated Creatinine Clearance 14.56 ml/min (50-250); Glucose 247 mg/dL (70-99); Potassium 5.8 mmol/L (3.3-5.1); Pro- Brain NATRIURETIC PEPTIDE 7161 pg/mL (<=1800); Sodium Level 131 mmol/L (133-145); Troponin T High Sensitivity 45 ng/L (<=14)
--- NOTE | 2025-01-23 13:24 | EX.ED.DYSGE1 ---
HPI History of Present Illness Chief Complaint: Chest Pain Narrative Narrative: Patient is a 79-year-old female with past medical history of CAD with stents and bypass surgery, COPD, TIA, chronic kidney disease, hypertension, type 2 diabetes, hypothyroidism who presented to the emergency department the chief complaint of chest pain. Patient states that around 11 AM she developed chest pain she states that she was sleeping when this occurred. Patient states that she has not had a stress test in approximately 2 years since her last stent placed. Patient denies any blood thinner medications. Patient states that otherwise she has been feeling well and has no other complaints. She states that by the time she arrived here she has no pain and did not take any medications to relieve her symptoms. [facility] Medical History Incarcerated ventral hernia Chest pain Elevated troponin Urinary tract infection Elevated lactic acid level Weakness generalized Incarcerated hernia of abdominal cavity CHF (congestive heart failure) Anemia NSTEMI (non-ST elevated myocardial infarction) Cardiomyopathy COVID-19 (~04/2022) Insect bite History of non-ST elevation myocardial infarction (NSTEMI) (01/26/21) COPD (chronic obstructive pulmonary disease) Morbid obesity TIA (transient ischemic attack) Arm paresthesia, right CKD (chronic kidney disease) Atherosclerotic heart disease of [place] coronary artery without angina 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 Obesity Atherosclerosis of coronary artery bypass graft without angina pectoris Essential hypertension Type 2 diabetes mellitus without complication Vertigo GERD (gastroesophageal reflux disease) Asthma Hyperlipidemia Hypothyroidism Home Medications ?Medication ?Instructions ?Recorded ?Last Taken ?Type montelukast 10 mg tablet 10 mg PO DAILY PRN ASTHMA 12/17/13 11/13/24 History aspirin 81 mg tablet,delayed 81 mg PO DAILY HEART HEALTH 11/19/17 01/22/25 History release cetirizine 10 mg tablet (Zyrtec) 10 mg PO DAILY PRN allergies 02/15/20 06/09/24 History allopurinol 100 mg tablet 100 mg PO DAILY GOUT 11/22/21 01/22/25 History ipratropium 20 mcg-albuterol 100 1 puff inhalation Q6H PRN BREATHING 09/20/22 11/13/24 History mcg/actuation mist for inhalation (Combivent Respimat) ferrous sulfate 325 mg (65 mg 325 mg PO DAILY SUPPLEMENT 10/04/22 01/22/25 History iron) tablet furosemide 40 mg tablet (Lasix) 40 mg PO DAILY diuretic 12/25/22 01/22/25 History cholecalciferol (vitamin D3) 25 25 mcg PO SUTUTHSA vitamin 06/05/23 01/22/25 History mcg (1,000 unit) tablet omeprazole 20 mg capsule,delayed 20 mg PO DAILY reflux 11/04/23 01/22/25 History release ezetimibe 10 mg tablet (Zetia) 10 mg PO DAILY 02/27/24 01/22/25 History prednisone 5 mg tablet 5 mg PO DAILY 02/27/24 11/13/24 History Held on 01/17/25. Instructions: while on higher-dose prednisone albuterol sulfate 2.5 mg/3 mL 1.25 mg inhalation TID PRN 05/09/24 11/15/24 History (0.083 %) solution for nebulization shortness of breath or wheezing ipratropium bromide 0.02 % 0.5 mg inhalation TID PRN 05/09/24 11/13/24 History solution for inhalation shortness of breath or wheezing biotin 10,000 mcg capsule 10,000 mcg PO DAILY 06/10/24 01/22/25 History folic acid 1 mg tablet 1 mg PO DAILY 06/10/24 01/22/25 History glipizide 2.5 mg tablet, extended 2.5 mg PO BID 06/10/24 01/22/25 History release 24 hr amlodipine 5 mg tablet 5 mg PO DAILY 08/25/24 01/22/25 History spironolactone 25 mg tablet 25 mg PO DAILY HEART 08/25/24 01/22/25 History levothyroxine 100 mcg tablet 100 mcg PO DAILY 11/15/24 01/22/25 History metoprolol tartrate 50 mg tablet 50 mg PO DAILY 11/15/24 01/22/25 History prednisone 20 mg tablet 40 mg (2 x 20 mg) PO DAILY 4 days 01/17/25 01/22/25 Rx #8 tabs sulfamethoxazole 800 1 tab PO DAILY 01/23/25 01/22/25 History mg-trimethoprim 160 mg tablet Allergy/AdvReac Type Severity Reaction Status Date / Time Anesthetics - Amide Type - Allergy Other Verified 01/23/25 12:18 Select A (Anesthetics - Amide Type) acetaminophen (From Tylenol) AdvReac Severe Other Verified 01/23/25 12:18 pravastatin AdvReac Intermediate Myalgias Verified 01/23/25 12:18 after 15 years of taking cinnamon AdvReac Unknown Unknown Verified 01/23/25 12:18 Penicillins AdvReac Unknown Unknown Verified 01/23/25 12:18 ezetimibe (From Zetia) AdvReac myalgias Verified 01/23/25 12:18 leflunomide AdvReac Chest Verified 01/23/25 12:18 tightness Family History Mother , age 86, advanced age No problems noted. Father Prostate cancer Surgical History History of ventral hernia repair History of coronary artery stent placement (01/26/21) H/O coronary artery bypass surgery (10/11/07) Hx of bilateral cataract extraction History of hysterectomy Hx of appendectomy History of cholecystectomy Social History household members: family housing: house Smoking Status: Never smoker alcohol intake: never substance use type: does not use caffeine: Yes Type: carbonated beverages what type of physical activity do you participate in: none seatbelt use: always do you feel safe at home: Yes ROS ROS ED ROS Narrative Constitutional: Denies fevers, chills, headaches, lightness, dizziness, Eyes: Denies changes double vision blurry vision Cardiovascular: Claims chest pain as noted above but has since resolved denies palpitations Respiratory: Denies nausea vomiting diarrhea Abdomen: Denies abdominal pain nausea vomit diarrhea : Denies urinary symptoms Neurological: Denies numbness, wheeze, tingling Musculoskeletal: Denies back pain Skin: Denies any rashes or lesions EXAM Physical Exam Narrative Exam Narrative: General: Patient lying in bed rest comfortably did not appear to be in acute distress Head: Atraumatic, normocephalic Eyes: PERRL bilaterally, EOMI bilaterally, no conjunctival injection noted Neck: Soft, supple, trachea midline Cardiovascular: Regular rate and rhythm no murmurs gallops rubs noted Respiratory: Clear to auscultation bilaterally no rales rhonchi or wheezes noted Abdomen: Soft, nondistended, nontender to palpation Extremities: Radial pulses +2/4 in the bilateral extremities, no pedal edema exam Neurological: Patient follow commands that she was at [facility] year is 2024 Skin: Warm, dry, intact no rashes lesions noted Const Vital Signs: 01/23/25 12:18 01/23/25 13:17 01/23/25 13:23 Temperature 97.5 F L Temperature Source Temporal Pulse Rate 85 81 Respiratory Rate 18 14 Blood Pressure 161/68 H 138/52 H Blood Pressure Mean 99 80 Pulse Ox 100 98 Oxygen Delivery Method Room Air Room Air Room Air 01/23/25 13:30 01/23/25 14:00 01/23/25 15:00 Temperature Temperature Source Pulse Rate 85 75 73 Respiratory Rate 24 H 16 13 Blood Pressure 148/57 H 153/54 H 151/47 H Blood Pressure Mean 83 84 79 Pulse Ox 98 98 96 Oxygen Delivery Method MDM MDM MDM Narrative Medical decision making narrative: Patient is a 79-year-old female who presented to the emergency department chief complaint of chest pain. Patient will have a workup performed here on the differential diagnosis includes but not limited to ACS, pneumonia, pneumothorax, musculoskeletal strain. Once workup is obtained reviewed she will be reevaluated. Patient CBC was reviewed and showed no evidence leukocytosis white blood count normal at 6.1, hemoglobin 10.7, platelet count was noted be 316. Patient sodium is 131, potassium is mildly elevated 5.8. Patient be given insulin dextrose as well as she will be given IV Lasix as her proBNP is elevated here in the emergency department and she did not take her dose of oral Lasix this morning. Patient's creatinine is elevated 2.73 however she has underlying chronic kidney disease. Patient's troponin was 45 with delta troponin of 37. Patient's EKG was reviewed and showed sinus rhythm with a rate of 87 bpm. Patient's chest x-ray reviewed by myself by radiology showed no acute cardiopulmonary processes. Patient ambulated well in the emergency department had no hypoxia and felt at her baseline. I called and discussed case with on-call rib builder Dr. Win who states that the patient can follow-up in the office with them in the outpatient setting. I discussed this plan with the patient she is agreeable to plan she like to go home at this point time all question concerns answered she was discharged home in stable condition. Lab Data Labs: Laboratory Results - last 24 hr 01/23/25 01/23/25 12:40 14:37 WBC 6.1 RBC 3.47 L Hgb 10.7 L Hct 32.8 L MCV 94.5 MCH 30.8 MCHC 32.6 RDW Std Deviation 48.2 H RDW Coeff of Kamar 14.1 Plt Count 316 MPV 10.3 Immature Gran % (Auto) 0.700 Neut % (Auto) 83.4 H Lymph % (Auto) 12.8 L [place] % (Auto) 2.8 Eos % (Auto) 0.0 Baso % (Auto) 0.3 Absolute Neuts (auto) 5.1 Absolute Lymphs (auto) 0.78 L Nucleated RBC % 0 Sodium 131 L Potassium 5.8 H Chloride 99 Carbon Dioxide 18.5 L Anion Gap 14 BUN 53 H Creatinine 2.73 H Estim Creat Clear Calc 14.56 L Est GFR (MDRD) Non-Af 17 L BUN/Creatinine Ratio 19.4 Glucose 247 H Calcium 9.5 Troponin T High Sens 45 H D Troponin T Hi Sens 2 Hr 37 H NT pro BNP II 7161 H Radiography Diagnostic Testing: Clinical Impression(s) from Imaging Studies Chest X-Ray 01/23/25 13:05 IMPRESSION: No acute cardiopulmonary process. Reading Location: [facility] Discharge Plan Triage Chief Complaint: Chest Pain ED Provider: Brian Gray Dx/Rx/DC Orders Clinical Impression: Chest pain Prescriptions: No Action aspirin 81 mg tablet,delayed release (DR/EC) 81 mg PO DAILY cetirizine [Zyrtec] 10 mg tablet 10 mg PO DAILY PRN (Reason: allergies) allopurinol 100 mg tablet 100 mg PO DAILY furosemide [Lasix] 40 mg tablet 40 mg PO DAILY cholecalciferol (vitamin D3) 25 mcg (1,000 unit) tablet 25 mcg PO SUTUTHSA spironolactone 25 mg tablet 25 mg PO DAILY ferrous sulfate 325 mg (65 mg iron) tablet 325 mg PO DAILY prednisone 5 mg tablet 5 mg PO DAILY ezetimibe [Zetia] 10 mg tablet 10 mg PO DAILY amlodipine 5 mg tablet 5 mg PO DAILY Patient Comments: PT HASNT HAD TO TAKE FOR A COUPLE WEEKS DUE TO LOWER BP Rx Instructions: Hold for SBP less than 130 mmHg montelukast 10 MG tablet 10 mg PO DAILY PRN (Reason: ASTHMA) Combivent Respimat 20-100 mcg/actuation mist 1 puff INHALATION Q6H PRN (Reason: BREATHING) Patient Comments: PT DOES HAVE THIS MEDICATION WITH HER. omeprazole 20 mg capsule,delayed release(DR/EC) 20 mg PO DAILY albuterol sulfate 2.5 mg /3 mL (0.083 %) solution for nebulization 1.25 mg inhalation TID PRN (Reason: shortness of breath or wheezing) ipratropium bromide 0.02 % solution 0.5 mg inhalation TID PRN (Reason: shortness of breath or wheezing) glipizide 2.5 mg tablet extended release 24hr 2.5 mg PO BID folic acid 1 mg tablet 1 mg PO DAILY biotin 10,000 mcg capsule 10,000 mcg PO DAILY levothyroxine 100 mcg tablet 100 mcg PO DAILY metoprolol tartrate 50 mg tablet 50 mg PO DAILY prednisone 20 mg tablet 40 mg PO DAILY 4 Days Qty: 8 0RF Patient Comments: PT DOESNT KNOW HOW MANY LEFT, STARTED ON 01/19/25 sulfamethoxazole-trimethoprim 800-160 mg tablet 1 tab PO DAILY Patient Comments: PT HAS 2-3 DOSES LEFT Primary Care Provider: Tabatha Diaz Referrals: Tabatha Diaz MD [Primary Care Provider] - Activity Restrictions/Additional Instructions: Follow-up with your rib builder in outpatient setting. Return with worsening symptoms or concerns. Ensure that you are taking your medications as prescribed including your oral Lasix/furosemide to ensure that you do not have heart failure exacerbation. Print Language: Iraqi Disposition Disposition: Home, Self Care
[2025-01-23 15:07] LABS: Troponin T High Sens 2 HR 37 ng/L (<=14)
[2025-01-23] MEDS: Furosemide 40 MG/4 ML Vial IV (16:21)
== END 2025-01-23 17:08 | disposition home or self-care (01) ==
PROVIDERS: Emergency Provider Emergency Medicine; PCP Internal Medicine; Visit Provider Emergency Medicine
DX: R07.9 Chest pain, unspecified (principal); J44.9 Chronic obstructive pulmonary disease, unspecified; E11.22 Type 2 diabetes mellitus with diabetic chronic kidney disease; I25.10 Atherosclerotic heart disease of native coronary artery without angina pectoris; I12.9 Hypertensive chronic kidney disease with stage 1 through stage 4 chronic kidney disease, or unspecified chronic kidney disease; N18.9 Chronic kidney disease, unspecified; D64.9 Anemia, unspecified; E03.9 Hypothyroidism, unspecified; I25.2 Old myocardial infarction; K21.9 Gastro-esophageal reflux disease without esophagitis; E78.5 Hyperlipidemia, unspecified; Z95.1 Presence of aortocoronary bypass graft; Z86.73 Personal history of transient ischemic attack (TIA), and cerebral infarction without residual deficits; Z79.82 Long term (current) use of aspirin; Z79.84 Long term (current) use of oral hypoglycemic drugs; Z79.890 Hormone replacement therapy; Z79.899 Other long term (current) drug therapy
CPT/HCPCS: 71046; 80048; 83880; 84484; 85025; 93005; 96374; 99284; A4216; J1938

== ENCOUNTER 2025-01-27 01:05 | Emergency (ER) | payer MEDICARE, SELFPAY ==
[2021-03-16 09:07] VITALS: BMI 39.2
[2025-01-27 01:07] VITALS: BP 208/85; PULSE 111; RESP 16; TEMP 36.6; O2SAT 99; BMI 28.3
--- NOTE | 2025-01-27 01:13 | EX.ED.DYSGE1 ---
HPI History of Present Illness Chief Complaint: Constipation Informant: patient Onset/Context/Timing Onset: Hours Context: Gradual Onset Timing: Continuous Quality: Burning Location: Rectum Worsened by: Sitting Relieved by: Nothing Narrative Narrative: Patient presents with constipation that became worse today. Patient states she has not had a bowel movement in the last 3 days. Patient states she feels pressure and burning over her rectal area. Patient states it is worse with sitting. Patient states nothing seems to help with it. Patient states she has tried [id number] laxatives with no improvement. Patient denies any nausea or vomiting. Patient states she is also having difficulty urinating because of the constipation. Patient denies any fevers or chills. Patient denies any chest pain or shortness of breath. [facility] Medical History Incarcerated ventral hernia Chest pain Elevated troponin Urinary tract infection Elevated lactic acid level Weakness generalized Incarcerated hernia of abdominal cavity CHF (congestive heart failure) Anemia NSTEMI (non-ST elevated myocardial infarction) Cardiomyopathy COVID-19 (~04/2022) Insect bite History of non-ST elevation myocardial infarction (NSTEMI) (01/26/21) COPD (chronic obstructive pulmonary disease) Morbid obesity TIA (transient ischemic attack) Arm paresthesia, right CKD (chronic kidney disease) Atherosclerotic heart disease of [place] coronary artery without angina 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 Obesity Atherosclerosis of coronary artery bypass graft without angina pectoris Essential hypertension Type 2 diabetes mellitus without complication Vertigo GERD (gastroesophageal reflux disease) Asthma Hyperlipidemia Hypothyroidism Home Medications ?Medication ?Instructions ?Recorded ?Last Taken ?Type montelukast 10 mg tablet 10 mg PO DAILY PRN ASTHMA 12/17/13 11/13/24 History aspirin 81 mg tablet,delayed 81 mg PO DAILY HEART HEALTH 11/19/17 01/22/25 History release cetirizine 10 mg tablet (Zyrtec) 10 mg PO DAILY PRN allergies 02/15/20 06/09/24 History allopurinol 100 mg tablet 100 mg PO DAILY GOUT 11/22/21 01/22/25 History ipratropium 20 mcg-albuterol 100 1 puff inhalation Q6H PRN BREATHING 09/20/22 11/13/24 History mcg/actuation mist for inhalation (Combivent Respimat) ferrous sulfate 325 mg (65 mg 325 mg PO DAILY SUPPLEMENT 10/04/22 01/22/25 History iron) tablet furosemide 40 mg tablet (Lasix) 40 mg PO DAILY diuretic 12/25/22 01/22/25 History cholecalciferol (vitamin D3) 25 25 mcg PO SUTUTHSA vitamin 06/05/23 01/22/25 History mcg (1,000 unit) tablet omeprazole 20 mg capsule,delayed 20 mg PO DAILY reflux 11/04/23 01/22/25 History release ezetimibe 10 mg tablet (Zetia) 10 mg PO DAILY 02/27/24 01/22/25 History prednisone 5 mg tablet 5 mg PO DAILY 02/27/24 11/13/24 History Held on 01/17/25. Instructions: while on higher-dose prednisone albuterol sulfate 2.5 mg/3 mL 1.25 mg inhalation TID PRN 05/09/24 11/15/24 History (0.083 %) solution for nebulization shortness of breath or wheezing ipratropium bromide 0.02 % 0.5 mg inhalation TID PRN 05/09/24 11/13/24 History solution for inhalation shortness of breath or wheezing biotin 10,000 mcg capsule 10,000 mcg PO DAILY 06/10/24 01/22/25 History folic acid 1 mg tablet 1 mg PO DAILY 06/10/24 01/22/25 History glipizide 2.5 mg tablet, extended 2.5 mg PO BID 06/10/24 01/22/25 History release 24 hr amlodipine 5 mg tablet 5 mg PO DAILY 08/25/24 01/22/25 History spironolactone 25 mg tablet 25 mg PO DAILY HEART 08/25/24 01/22/25 History levothyroxine 100 mcg tablet 100 mcg PO DAILY 11/15/24 01/22/25 History metoprolol tartrate 50 mg tablet 50 mg PO DAILY 11/15/24 01/22/25 History prednisone 20 mg tablet 40 mg (2 x 20 mg) PO DAILY 4 days 01/17/25 01/22/25 Rx #8 tabs sulfamethoxazole 800 1 tab PO DAILY 01/23/25 01/22/25 History mg-trimethoprim 160 mg tablet Allergy/AdvReac Type Severity Reaction Status Date / Time Anesthetics - Amide Type - Allergy Other Verified 01/23/25 12:18 Select A (Anesthetics - Amide Type) acetaminophen (From Tylenol) AdvReac Severe Other Verified 01/23/25 12:18 pravastatin AdvReac Intermediate Myalgias Verified 01/23/25 12:18 after 15 years of taking cinnamon AdvReac Unknown Unknown Verified 01/23/25 12:18 Penicillins AdvReac Unknown Unknown Verified 01/23/25 12:18 ezetimibe (From Zetia) AdvReac myalgias Verified 01/23/25 12:18 leflunomide AdvReac Chest Verified 01/23/25 12:18 tightness Family History Mother , age 86, advanced age No problems noted. Father Prostate cancer Surgical History History of ventral hernia repair History of coronary artery stent placement (01/26/21) H/O coronary artery bypass surgery (10/11/07) Hx of bilateral cataract extraction History of hysterectomy Hx of appendectomy History of cholecystectomy Social History household members: family housing: house Smoking Status: Never smoker alcohol intake: never substance use type: does not use caffeine: Yes Type: carbonated beverages what type of physical activity do you participate in: none seatbelt use: always do you feel safe at home: Yes ROS ROS ED Constitutional Constitutional ED: Denies chills or fever(s) Eyes Eyes: Denies blurry vision or change in vision ENT ENT ED: Denies rhinorrhea or sore throat Cardiovascular Cardiovascular: Denies chest pain or palpitations Respiratory/Chest Respiratory/Chest: Denies cough or dyspnea Gastrointestinal Gastrointestinal: Reports constipation; Denies nausea or vomiting Genitourinary Genitourinary ED: Denies dysuria or hematuria Musculoskeletal Musculoskeletal: Denies back pain or neck pain Integumentary Denies abscess or rash Neurologic Neurologic: Denies headache(s) or weakness Allergic/Immunologic Allergic/Immunologic ED: Denies mouth swelling or urticaria EXAM Physical Exam Const Vital Signs: 01/27/25 01:07 01/27/25 03:32 Temperature 97.9 F Temperature Source Oral Pulse Rate 111 H 87 Respiratory Rate 16 Blood Pressure 208/85 H 135/59 H Blood Pressure Mean 126 84 Pulse Ox 99 100 Oxygen Delivery Method Room Air Room Air Positive well nourished and well developed General Appearance ED: well developed and NAD HEENT Reports moist mucous membranes Neck supple and no JVD Resp normal respiratory effort and clear to auscultation bilaterally Cardio regular rate and regular rhythm GI non-tender and non-distended Palpation: soft Neuro oriented x3, CN's II-XII intact bilaterally and no sensory deficits noted Sensorium / Orientation: alert Motor Exam: strength 5/5 throughout Psych mental status grossly normal MDM MDM MDM Narrative Medical decision making narrative: Patient was given a soapsuds enema. Treatment and Re-Evaluation :: Patient started feeling nauseated. Patient was given Zofran. Patient had good results with the enema. Patient felt better on reevaluation. Patient's blood pressure improved to 135/59. Patient was instructed to follow-up with her primary care physician as scheduled. Patient was instructed to return if worse in any way. Patient understood and was agreeable with the plan. All questions were answered. Discharge Plan Triage Chief Complaint: Constipation ED Provider: Alfonso Padilla Dx/Rx/DC Orders Clinical Impression: Constipation, Hypertension Instructions: ED Constipation (Adult) Prescriptions: No Action aspirin 81 mg tablet,delayed release (DR/EC) 81 mg PO DAILY cetirizine [Zyrtec] 10 mg tablet 10 mg PO DAILY PRN (Reason: allergies) allopurinol 100 mg tablet 100 mg PO DAILY furosemide [Lasix] 40 mg tablet 40 mg PO DAILY cholecalciferol (vitamin D3) 25 mcg (1,000 unit) tablet 25 mcg PO [facility] spironolactone 25 mg tablet 25 mg PO DAILY ferrous sulfate 325 mg (65 mg iron) tablet 325 mg PO DAILY prednisone 5 mg tablet 5 mg PO DAILY ezetimibe [Zetia] 10 mg tablet 10 mg PO DAILY amlodipine 5 mg tablet 5 mg PO DAILY Patient Comments: PT HASNT HAD TO TAKE FOR A COUPLE WEEKS DUE TO LOWER BP Rx Instructions: Hold for SBP less than 130 mmHg montelukast 10 MG tablet 10 mg PO DAILY PRN (Reason: ASTHMA) Combivent Respimat 20-100 mcg/actuation mist 1 puff INHALATION Q6H PRN (Reason: BREATHING) Patient Comments: PT DOES HAVE THIS MEDICATION WITH HER. omeprazole 20 mg capsule,delayed release(DR/EC) 20 mg PO DAILY albuterol sulfate 2.5 mg /3 mL (0.083 %) solution for nebulization 1.25 mg inhalation TID PRN (Reason: shortness of breath or wheezing) ipratropium bromide 0.02 % solution 0.5 mg inhalation TID PRN (Reason: shortness of breath or wheezing) glipizide 2.5 mg tablet extended release 24hr 2.5 mg PO BID folic acid 1 mg tablet 1 mg PO DAILY biotin 10,000 mcg capsule 10,000 mcg PO DAILY levothyroxine 100 mcg tablet 100 mcg PO DAILY metoprolol tartrate 50 mg tablet 50 mg PO DAILY prednisone 20 mg tablet 40 mg PO DAILY 4 Days Qty: 8 0RF Patient Comments: PT DOESNT KNOW HOW MANY LEFT, STARTED ON 01/19/25 sulfamethoxazole-trimethoprim 800-160 mg tablet 1 tab PO DAILY Patient Comments: PT HAS 2-3 DOSES LEFT Primary Care Provider: Tabatha Diaz Referrals: Tabatha Diaz MD [Primary Care Provider] - Keep James appointment Print Language: [place]i Disposition Disposition: Home, Self Care
[2025-01-27] MEDS: Ondansetron ODT 4 MG Tablet PO (02:27)
[2025-01-27 03:32] VITALS: BP 135/59; PULSE 87; O2SAT 100
[2025-01-27 03:51] VITALS: BP 135/59; PULSE 87; RESP 18; TEMP 36.8; O2SAT 100
== END 2025-01-27 03:52 | disposition home or self-care (01) ==
PROVIDERS: Emergency Provider Emergency Medicine; PCP Internal Medicine; Visit Provider Emergency Medicine
DX: K59.00 Constipation, unspecified (principal); I11.0 Hypertensive heart disease with heart failure; I50.9 Heart failure, unspecified; J44.9 Chronic obstructive pulmonary disease, unspecified; I25.2 Old myocardial infarction; I25.10 Atherosclerotic heart disease of native coronary artery without angina pectoris; K21.9 Gastro-esophageal reflux disease without esophagitis; E03.9 Hypothyroidism, unspecified; D64.9 Anemia, unspecified; E78.5 Hyperlipidemia, unspecified; Z95.1 Presence of aortocoronary bypass graft; Z90.49 Acquired absence of other specified parts of digestive tract; Z86.73 Personal history of transient ischemic attack (TIA), and cerebral infarction without residual deficits; Z79.82 Long term (current) use of aspirin; Z79.84 Long term (current) use of oral hypoglycemic drugs; Z79.899 Other long term (current) drug therapy; Z79.890 Hormone replacement therapy
CPT/HCPCS: 99284

== ENCOUNTER 2025-04-15 19:15 | Emergency (ER) | payer MEDICARE, SELFPAY ==
[2021-03-16 09:07] VITALS: BMI 39.2
[2025-04-15 19:18] VITALS: BP 147/64; PULSE 78; RESP 16; TEMP 36.7; O2SAT 99; BMI 27.6
--- NOTE | 2025-04-15 19:41 | EX.ED.DYSGE1 ---
HPI <LAYNE Curry - Last Filed: 04/15/25 22:04> History of Present Illness Chief Complaint: General Illness Narrative Narrative: 80-year-old female says she has had intermittent symptoms of UTI for the last 2 months with burning and frequency. She denies fever, chills, nausea or vomiting or abdominal or flank pain. She is also concerned about a wound on her right foot. She has had a wound there in the past that healed but the callus recently came off and opened up so she saw her event coordinator Dr. Evans in [place] last week. She was post to call in antibiotics based on the wound culture but they were never sent to the pharmacy. She has no drainage from the wound. REPLACED BY [facility] <LAYNE Curry - Last Filed: 04/15/25 22:04> REPLACED BY [facility] Medical History Incarcerated ventral hernia Chest pain Elevated troponin Urinary tract infection Elevated lactic acid level Weakness generalized Incarcerated hernia of abdominal cavity CHF (congestive heart failure) Anemia NSTEMI (non-ST elevated myocardial infarction) Cardiomyopathy COVID-19 (~04/2022) Insect bite History of non-ST elevation myocardial infarction (NSTEMI) (01/26/21) COPD (chronic obstructive pulmonary disease) Morbid obesity TIA (transient ischemic attack) Arm paresthesia, right CKD (chronic kidney disease) 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 Obesity Atherosclerosis of coronary artery bypass graft without angina pectoris Essential hypertension Type 2 diabetes mellitus without complication Vertigo GERD (gastroesophageal reflux disease) Asthma Hyperlipidemia Hypothyroidism Home Medications ?Medication ?Instructions ?Recorded ?Last Taken ?Type montelukast 10 mg tablet 10 mg PO DAILY PRN ASTHMA 12/17/13 11/13/24 History aspirin 81 mg tablet,delayed 81 mg PO DAILY HEART HEALTH 11/19/17 01/22/25 History release cetirizine 10 mg tablet (Zyrtec) 10 mg PO DAILY PRN allergies 02/15/20 06/09/24 History allopurinol 100 mg tablet 100 mg PO DAILY GOUT 11/22/21 01/22/25 History ipratropium 20 mcg-albuterol 100 1 puff inhalation Q6H PRN BREATHING 09/20/22 11/13/24 History mcg/actuation mist for inhalation (Combivent Respimat) ferrous sulfate 325 mg (65 mg 325 mg PO DAILY SUPPLEMENT 10/04/22 01/22/25 History iron) tablet furosemide 40 mg tablet (Lasix) 40 mg PO DAILY diuretic 12/25/22 01/22/25 History cholecalciferol (vitamin D3) 25 25 mcg PO SUTUTHSA vitamin 06/05/23 01/22/25 History mcg (1,000 unit) tablet omeprazole 20 mg capsule,delayed 20 mg PO DAILY reflux 11/04/23 01/22/25 History release ezetimibe 10 mg tablet (Zetia) 10 mg PO DAILY 02/27/24 01/22/25 History prednisone 5 mg tablet 5 mg PO DAILY 02/27/24 11/13/24 History Held on 01/17/25. Instructions: while on higher-dose prednisone albuterol sulfate 2.5 mg/3 mL 1.25 mg inhalation TID PRN 05/09/24 11/15/24 History (0.083 %) solution for nebulization shortness of breath or wheezing ipratropium bromide 0.02 % 0.5 mg inhalation TID PRN 05/09/24 11/13/24 History solution for inhalation shortness of breath or wheezing biotin 10,000 mcg capsule 10,000 mcg PO DAILY 06/10/24 01/22/25 History folic acid 1 mg tablet 1 mg PO DAILY 06/10/24 01/22/25 History glipizide 2.5 mg tablet, extended 2.5 mg PO BID 06/10/24 01/22/25 History release 24 hr spironolactone 25 mg tablet 25 mg PO DAILY HEART 08/25/24 01/22/25 History levothyroxine 100 mcg tablet 100 mcg PO DAILY 11/15/24 01/22/25 History metoprolol tartrate 50 mg tablet 50 mg PO BID 02/10/25 Unknown History nitroglycerin 0.4 mg sublingual 0.4 mg sublingual Q5-15M PRN chest 02/10/25 Unknown Rx tablet (Nitrostat) pain #25 tabs cephalexin 500 mg capsule 500 mg PO Q12 #14 CAPSULES 04/15/25 Unknown Rx Allergy/AdvReac Type Severity Reaction Status Date / Time Anesthetics - Amide Type - Allergy Other Verified 04/15/25 19:21 Select A (Anesthetics - Amide Type) acetaminophen (From Tylenol) AdvReac Severe Other Verified 04/15/25 19:21 pravastatin AdvReac Intermediate Myalgias Verified 04/15/25 19:21 after 15 years of taking cinnamon AdvReac Unknown Unknown Verified 04/15/25 19:21 Penicillins AdvReac Unknown Unknown Verified 04/15/25 19:21 leflunomide AdvReac Chest Verified 04/15/25 19:21 tightness Family History Mother , age 86, advanced age No problems noted. Father Prostate cancer Surgical History History of surgery History of ventral hernia repair History of coronary artery stent placement (01/26/21) H/O coronary artery bypass surgery (10/11/07) Hx of bilateral cataract extraction History of hysterectomy Hx of appendectomy History of cholecystectomy Social History household members: family housing: house Smoking Status: Never smoker alcohol intake: never substance use type: does not use caffeine: Yes Type: carbonated beverages what type of physical activity do you participate in: none seatbelt use: always do you feel safe at home: Yes ROS <LAYNE Curry - Last Filed: 04/15/25 22:04> ROS ED ROS Narrative Constitutional: Negative for fever, chills, malaise. GI: Negative for abdominal pain, nausea, vomiting. Skin: Positive for wound. EXAM <LAYNE Curry - Last Filed: 04/15/25 22:04> Physical Exam Narrative Exam Narrative: CONST: Patient sitting in no acute distress. EYES: Normal inspection. NECK: Normal inspection. RESP: No respiratory distress, CTAB. CVS: Regular rate and rhythm, no murmur, no gallop. ABD: Soft and nontender, no guarding or rebound, nondistended. SKIN: Color normal, no rash, warm, dry, intact. EXTREMITIES: 1 cm chronic appearing wound on the right plantar foot with no surrounding redness, drainage, fluctuance, or odor. NEURO: Alert and answering questions appropriately. PSYCH: Normal affect. Const Vital Signs: 04/15/25 19:18 04/15/25 19:40 04/15/25 20:16 Temperature 98.1 F 98.2 F Temperature Source Oral Pulse Rate 78 72 Respiratory Rate 16 16 Respiratory Effort Normal Non-Labored Respiratory Pattern Normal Blood Pressure 147/64 H 162/84 H Blood Pressure Mean 91 110 Pulse Ox 99 100 Oxygen Delivery Method Room Air <Dr. Manolo Ramos MD - Last Filed: 04/15/25 20:17> Physical Exam Const Vital Signs: 04/15/25 19:18 04/15/25 19:40 04/15/25 20:16 Temperature 98.1 F 98.2 F Temperature Source Oral Pulse Rate 78 72 Respiratory Rate 16 16 Respiratory Effort Normal Non-Labored Respiratory Pattern Normal Blood Pressure 147/64 H 162/84 H Blood Pressure Mean 91 110 Pulse Ox 99 100 Oxygen Delivery Method Room Air MDM <LAYNE Curry - Last Filed: 04/15/25 22:04> [facility] Narrative Medical decision making narrative: 80-year-old female complains of intermittent dysuria over the last 2 months worse over the last couple days. Also was concerned about a chronic right foot wound that recently opened because the event coordinator was supposed to send in antibiotics but they went at the pharmacy. She appears well and nontoxic. Vital stable. Overall her exam is benign. The small wound on her plantar foot does not look infected. Neurovascularly intact. I could only find a wound culture by her event coordinator back in October which showed staph and strep that was pansensitive. Today she has a UTI so will be started on Keflex which should cover both issues. She was discharged in stable condition. External records reviewed: Last wound culture ordered by Dr. Jena Singh on 10/29/2024 showed many Staphylococcus aureus, few Streptococcus agalactiae, pansensitive. I have personally performed a face to face assessment of the patient and have reviewed the EM Note. I performed a substantive portion of the visit including all aspects of the following. My romero findings include: History is [80-year-old female is concerned she might have a UTI she also has a wound on the bottom of her right foot. Sees a event coordinator for that.] Exam is [well-appearing 80-year-old female vital signs are stable afebrile. Does not look septic or toxic. No distress. Pulse ox 9 9% on room air no hypoxia. H EENT exam pupils round reactive light. Moist mucous membranes. Lungs clear to auscultation bilaterally. Heart regular rhythm rate about 80 no murmur. Chest wall ribs nontender. Abdomen soft nontender. Back nontender. Moving all 4 extremities. Nontender no edema. Bottom of her left foot there is wound but currently does not look infected. Is not red. Is not swollen. Is not specifically tender. There is no drainage or discharge. There is no fluctuance. No streaking. No swelling of the foot. Neurologically she is awake and alert. Answering questions following commands.] Medical Decision Making [80-year-old female concern for UTI UA was obtained shows greater 100 white cells 1+ bacteria culture sent. Darted on Keflex here and placed on it for a week.] Other additions or changes: [None] History & Record Review Discussion w/independent historian: Patient Additional record(s) reviewed:: Prior outpatient record Lab Data Attestation: I reviewed the patient's lab results. Labs: Laboratory Results - last 24 hr 04/15/25 19:30 Urine Color Yellow Urine Clarity Cloudy Urine pH 5.0 Ur Specific [place] 1.020 Urine Protein 100 H Urine Glucose (UA) Normal Urine Ketones Negative Urine Occult Blood 150 H Urine Nitrite Positive H Urine Bilirubin Negative Urine Urobilinogen Normal Ur Leukocyte Esterase 500 H Urine RBC 0 SEEN Urine WBC >100 SEEN Ur Squamous Epith Cells 0-5 SEEN Urine Bacteria 1+ Urine Mucus 0 SEEN <Dr. Manolo Ramos MD - Last Filed: 04/15/25 20:17> MDM MDM Narrative Medical decision making narrative: External records reviewed: Last wound culture ordered by Dr. Jena Singh on 10/29/2024 showed many Staphylococcus aureus, few Streptococcus agalactiae, pansensitive. I have personally performed a face to face assessment of the patient and have reviewed the EM Note. I performed a substantive portion of the visit including all aspects of the following. My romero findings include: History is [80-year-old female is concerned she might have a UTI she also has a wound on the bottom of her right foot. Sees a event coordinator for that.] Exam is [well-appearing 80-year-old female vital signs are stable afebrile. Does not look septic or toxic. No distress. Pulse ox 9 9% on room air no hypoxia. H EENT exam pupils round reactive light. Moist mucous membranes. Lungs clear to auscultation bilaterally. Heart regular rhythm rate about 80 no murmur. Chest wall ribs nontender. Abdomen soft nontender. Back nontender. Moving all 4 extremities. Nontender no edema. Bottom of her left foot there is wound but currently does not look infected. Is not red. Is not swollen. Is not specifically tender. There is no drainage or discharge. There is no fluctuance. No streaking. No swelling of the foot. Neurologically she is awake and alert. Answering questions following commands.] Medical Decision Making [80-year-old female concern for UTI UA was obtained shows greater 100 white cells 1+ bacteria culture sent. Darted on Keflex here and placed on it for a week.] Other additions or changes: [None] Lab Data Labs: Laboratory Results - last 24 hr 04/15/25 19:30 Urine Color Yellow Urine Clarity Cloudy Urine pH 5.0 Ur Specific [place] 1.020 Urine Protein 100 H Urine Glucose (UA) Normal Urine Ketones Negative Urine Occult Blood 150 H Urine Nitrite Positive H Urine Bilirubin Negative Urine Urobilinogen Normal Ur Leukocyte Esterase 500 H Urine RBC 0 SEEN Urine WBC >100 SEEN Ur Squamous Epith Cells 0-5 SEEN Urine Bacteria 1+ Urine Mucus 0 SEEN Discharge Plan Triage Chief Complaint: General Illness ED Midlevel Provider: Naa Woodruff ED Provider: Manolo Ramos Dx/Rx/DC Orders Clinical Impression: Acute UTI, Wound of right foot, History of diabetes mellitus, type II Instructions: UTIs Prescriptions: New cephalexin 500 mg capsule 500 mg PO Q12 Qty: 14 0RF No Action aspirin 81 mg tablet,delayed release (DR/EC) 81 mg PO DAILY cetirizine [Zyrtec] 10 mg tablet 10 mg PO DAILY PRN (Reason: allergies) allopurinol 100 mg tablet 100 mg PO DAILY furosemide [Lasix] 40 mg tablet 40 mg PO DAILY cholecalciferol (vitamin D3) 25 mcg (1,000 unit) tablet 25 mcg PO SUTUTHSA spironolactone 25 mg tablet 25 mg PO DAILY ferrous sulfate 325 mg (65 mg iron) tablet 325 mg PO DAILY prednisone 5 mg tablet 5 mg PO DAILY ezetimibe [Zetia] 10 mg tablet 10 mg PO DAILY nitroglycerin [Nitrostat] 0.4 mg tablet, sublingual 0.4 mg sublingual Q5-15M PRN (Reason: chest pain) Qty: 25 3RF Rx Instructions: do not exceed 3 doses per episode montelukast 10 MG tablet 10 mg PO DAILY PRN (Reason: ASTHMA) Combivent Respimat 20-100 mcg/actuation mist 1 puff INHALATION Q6H PRN (Reason: BREATHING) Patient Comments: PT DOES HAVE THIS MEDICATION WITH HER. omeprazole 20 mg capsule,delayed release(DR/EC) 20 mg PO DAILY albuterol sulfate 2.5 mg /3 mL (0.083 %) solution for nebulization 1.25 mg inhalation TID PRN (Reason: shortness of breath or wheezing) ipratropium bromide 0.02 % solution 0.5 mg inhalation TID PRN (Reason: shortness of breath or wheezing) glipizide 2.5 mg tablet extended release 24hr 2.5 mg PO BID folic acid 1 mg tablet 1 mg PO DAILY biotin 10,000 mcg capsule 10,000 mcg PO DAILY levothyroxine 100 mcg tablet 100 mcg PO DAILY metoprolol tartrate 50 mg tablet 50 mg PO BID Primary Care Provider: Raven Monsalve Referrals: NOT,DEFINED [Non-Staff] - Activity Restrictions/Additional Instructions: The antibiotic Keflex should cover both a urinary tract infection and your foot wound. Follow-up with your doctor. Print Language: Czech Disposition Disposition: Home, Self Care Discharge Date/Time: 04/15/25 20:18
[2025-04-15 19:50] LABS: Mucous, Urine 0 SEEN /hpf (<or=2+); Red Blood Cells-Urine 0 SEEN /hpf (0-5)
[2025-04-15 19:56] LABS: Glucose, Dipstick Normal (Normal); Ketone-Dipstick Negative (Negative); Leukocyte Esterase-Dipstick 500 /ul (Negative); Nitrite-Dipstick Positive (Negative); Occult Blood-Urine 150 /ul (Negative); Protein-Dipstick 100 mg/dl (Negative); Specific Gravity, Urine 1.020 (1.002-1.030); Urine Bilirubin Dipstick Negative (Negative)
[2025-04-15 19:57] LABS: Color, Urine Yellow (Yellow)
--- OUTSIDE RECORDS SUMMARY | 2025-04-15 20:01 | XMS RPT_ITS | CCD ---
Author Organization [facility] Care Team Providers Care Dredge Lever Operator Name Role Phone Mariama Harrison Unavailable Unavailable Deepak Harper Y Unavailable Unavailable OBED Milian, Saba Mckeon Unavailable Mariama Harrison Unavailable Unavailable Dr. Carlo Diaz Primary Care Provider Dr. Carlo Diaz Referring Provider Dr. Lasha Win Attending Provider Dr. Carlo Diaz Primary Care Provider Dr. Carlo Diaz Referring Provider [facility] DOWEL PIN WORKER, DOWEL PIN WORKER-Magi Ramos Attending Provider LAYNE Jay Attending Provider Dr. Carlo Diaz Primary Care Provider Dr. Carlo Diaz Referring Provider Dr. Rohit Singh Emergency Provider Dr. Jemma Castellon Admit Provider Dr. Jemma Castellon Other Provider Friend, Dr. Alcantar Attending Provider Dr. Jemma Castellon Attending Provider Dr. Fritz Winston Attending Provider Unavailable Dr. Fritz Winston Other Provider Unavailable Dr. Lasha Win Attending Provider Dr. Earlene Andrade Other Provider Dr. Earlene Andrade Attending Provider LAYNE Jay Other Provider Dr. Heriberto Roberts Attending Provider Dr. Jemma Castellon Referring Provider Dr. Earlene Andrade Referring Provider Dr. Lasha Win Referring Provider Dr. Carlo Diaz Primary Care Provider Dr. Carlo Diaz Referring Provider LAYNE Jay Attending Provider Dr. Carlo Diaz Primary Care Provider Dr. Alfonso Padilla Emergency Provider Dr. Alfonso Quiroz Admit Provider Dr. Alfonso Quiroz Attending Provider Dr. Alfonso Quiroz Other Provider Dr. Levy Graham Attending Provider Dr. Levy Graham Other Provider JOE DUQUE, DR MATOS Attending [facility] DAILY , DR STALEY Primary Care Unavailable Joe DUQUE, Dr. Matos Primary Care Provider Joe DUQUE, Dr. Matos Referring Provider Saba Jay Attending Provider Dr. Alphonso Brandon DO Emergency Provider Dr. Juancho Mendoza MD Attending Provider Dr. Alphonso Brandon DO Emergency Provider Kelly DUQUE, Dr. Juancho Rivera Attending Provider Kelly DUQUE, Dr. Juancho Rivera Other Provider Kelly DUQUE, Dr. Juancho Rivera Admit Provider [phone] Karin Summers PA-C Attending Provider Valerie GUERRA, Dr. Hamilton Emergency Provider Joe DUQUE, Dr. Matos Primary Care Provider Valerie GUERRA, Dr. Hamilton Attending Provider Joe DUQUE, Dr. Matos Referring Provider Jesus DUQUE, Dr. Lind Emergency Provider Jesus DUQUE, Dr. Lind Attending Provider Isaac GUERRA, Dr. Torres Emergency Provider [phone] Karin Summers PA-C Attending Provider Isaac GUERRA, Dr. Torres Attending Provider [phone] Saba Jay Attending Provider Kelly Juancho A Consulting Unavailable Karin Stevenson Attending Unavailable Latouf, Butros Primary Care Unavailable Wanek, Juancho A Admitting Unavailable Latouf, Butros Primary Care Unavailable Latouf, Butros Referring Unavailable Saba Jay Attending Unavail able WanJuancho jha A Attending Unavailable Latouf, Butros Primary Care Unavailable Latouf, Butros Referring Unavailable Nagajothi, Nagaprasad Consulting Unavailabl e Latouf, Butros Primary Care Unavailable Austin, Presley Attending Unavailable Austin, Presley Admitting Unavailable Austin, Presley Consulting Unavailable Latouf, Butros Referring Unavailable Latouf, Butros Primary Care Unavailable Laura Roa NP Attending Unavailable Latouf, Butros Referring Unavailable Latouf, Butros Primary Care Unavailable Saba Jay Attending Unavail able Alfonso Neville Attending Unavailable Latouf, Butros Primary Care Unavailable Austin, Presley Referring Unavailable Nagajothi, Nagapradee Attending Unavailabl e Wanek Juancho A Consulting Unavailable Latouf, Butros Primary Care Unavailable Wanek Juancho A Attending Unavailable Wanek Juancho A Attending Unavailable Brian Gray Attending Unavailable Latouf, Butros Primary Care Unavailable Latouf, Butros Primary Care Unavailable Alfonso Padilla Attending Unavailable Latouf, Butros Primary Care Unavailable Andes, Jatin Attending Unavailable Latouf, Butros Primary Care Unavailable Alfonso Padilla Attending Unavailable Vignesh Graham Consulting Unavailabl e Latouf, Butros Primary Care Unavailable Austin, Presley Attending Unavailable Austin, Presley Admitting Unavailable Latouf, Butros Primary Care Unavailable Wanek, Juancho A Admitting Unavailable Wanek, Juancho A Attending Unavailable Latouf, Butros Primary Care Unavailable Diogo Lee Attending Unavailable LATOUJonathon, CARLO DUQUE Attending Unavailable LATOUF, CARLO DUQUE Primary Care Unavailable LATOUF, CARLO DUQUE Admitting Unavailable JG, DECEMBER WOOD CREW SUPERVISOR Admitting Unavailable JG, DECEMBER WOOD CREW SUPERVISOR Attending Unavailable JGDecember WOOD CREW SUPERVISOR Primary Care Unavailable LATOUF, CARLO DUQUE Admitting Unavailable LATOUF, CARLO DUQUE Attending Unavailable LATOUJonathon, CARLO DUQUE Consulting Unavailable LATOUJonathon, CARLO DUQUE Primary Care Unavailable PROVIDER, UNKNOWN Consulting Unavailable PROVIDER, UNKNOWN Consulting Unavailable PROVIDER, UNKNOWN Consulting Unavailable JOE, CARLO DUQUE Attending Unavailable LATOUCARLO Holt MD Consulting Unavailable LATOUJonathon, CARLO DUQUE Admitting Unavailable LATYARA, CARLO DUQUE Primary Care Unavailable PROVIDER, UNKNOWN Consulting Unavailable PROVIDER, UNKNOWN Consulting Unavailable PROVIDER, UNKNOWN Consulting Unavailable LATYARA, CARLO DUQUE Attending Unavailable LATOUJonathon, CARLO DUQUE Primary Care Unavailable LATOUJonathon, CARLO DUQUE Consulting Unavailable LATOUJonatohn, CARLO DUQUE Admitting Unavailable PROVIDER, UNKNOWN Consulting Unavailable PROVIDER, UNKNOWN Consulting Unavailable PROVIDER, UNKNOWN Consulting Unavailable CARLO DIAZ MD Attending Unavailable JOE, CARLO DUQUE Primary Care Unavailable LATYARA, CARLO DUQUE Admitting Unavailable LATCARLO PALOMINO MD Primary Care Unavailable LATCARLO PALOMINO MD Admitting Unavailable LATCARLO PALOMINO MD Attending Unavailable LATCARLO PALOMINO MD Consulting Unavailable PROVIDER, UNKNOWN Consulting Unavailable PROVIDER, UNKNOWN Consulting Unavailable PROVIDER, UNKNOWN Consulting Unavailable CARLO DIAZ MD Admitting Unavailable LATOUJonathon, CARLO DUQUE Attending Unavailable LATOUCARLO Holt MD Consulting Unavailable LATOUJonathon, CARLO DUQUE Primary Care Unavailable PROVIDER, UNKNOWN Consulting Unavailable PROVIDER, UNKNOWN Consulting Unavailable PROVIDER, UNKNOWN Consulting Unavailable CARLO DIAZ MD Consulting Unavailable NICO ROSA MD Admitting Unavailable NICO ROSA MD Attending Unavailable NICO ROSA MD Primary Care Unavailable PROVIDER, UNKNOWN Consulting Unavailable PROVIDER, UNKNOWN Consulting Unavailable PROVIDER, UNKNOWN Consulting Unavailable SRAVANTHI, PERCY DPM Admitting Unavailable HORN, PERCY DPM Attending Unavailable SRAVANTHI, PERCY DPM Primary Care Unavailable BUCKTOWARSINDillan, CHEYANNE DUQUE Admitting Unava ilable BUCKTOWARSING, CHEYANNE DUQUE Attending Unava ilable BUCKTOWARSINDillan, CHEYANNE DUQUE Primary Care Unava ilable LATCARLO PALOMINO MD Consulting Unavailable LATOUCARLO Holt MD Admitting Unavailable LATOUF, CARLO DUQUE Attending Unavailable LATOUFCARLO MD Primary Care Unavailable PROVIDER, UNKNOWN Consulting Unavailable PROVIDER, UNKNOWN Consulting Unavailable PROVIDER, UNKNOWN Consulting Unavailable BUCKTOWARSINDillan, CHEYANNE DUQUE Admitting Unava ilable BUCKTOWARSING, CHEYANNE DUQUE Attending Unava ilable BUCKTOWARSINDillan, CHEYANNE DUQUE Primary Care Unava ilable BUCKTOWARSINDillan, CHEYANNE DUQUE Primary Care Unava ilable BUCKTOWARSINDillan, CHEYANNE DUQUE Admitting Unava ilable BUCKTOWARSING, CHEYANNE DUQUE Attending Unava ilable SRAVANTHI PERCY DPM Primary Care Unavailable SRAVANTHI, PERCY DPM Admitting Unavailable HORN, PERCY DPM Attending Unavailable LATOUJonathon, CARLO DUQUE Admitting Unavailable LATOUF, CARLO DUQUE Attending Unavailable LATOUJonathon, CARLO DUQUE Primary Care Unavailable LATOUCARLO Holt MD Consulting Unavailable PROVIDER, UNKNOWN Consulting Unavailable PROVIDER, UNKNOWN Consulting Unavailable PROVIDER, UNKNOWN Consulting Unavailable BUCKTOJAIDEN, CHEYANNE DUQUE Primary Care Unava ilable BUCKTOWARSINDillan, CHEYANNE DUQUE Admitting Unava ilable BUCKTOWARSINDillan, CHEYANNE DUQUE Attending Unava ilable LATOUFCARLO MD Consulting Unavailable PROVIDER, UNKNOWN Consulting Unavailable PROVIDER, UNKNOWN Consulting Unavailable PROVIDER, UNKNOWN Consulting Unavailable BUCKTOCHEYANNE HWANG MD Primary Care Unava ilable BUCKTOWARSINDillan, CHEYANNE DUQUE Admitting Unava ilable BUCKTOWARSINDillan, CHEYANNE DUQUE Attending Unava ilable LATOUFCARLO MD Consulting Unavailable PROVIDER, UNKNOWN Consulting Unavailable PROVIDER, UNKNOWN Consulting Unavailable PROVIDER, UNKNOWN Consulting Unavailable Allergies Allergy Classification Reported Allergen(s) Allergy Type Date of Onset Reaction(s) Facility (12 sources) albuterol Drug Allergy 7 Shortness of breath [facility] Work Phone: (4 sources) MULTIPLE SEASONAL ALLERGIES; Translations: [MULTIPLE SEASONAL ALLERGIES] allergy to substance 7 SOB, nasal congestion [facility] Work Phone: [phone] (4 sources) INHALED ANESTHETICS drug allergy 7 [facility] Work Phone: [phone] (4 sources) ACETOMINOPHEN drug allergy 7 [facility] Work Phone: [phone] (20 sources) Acetaminophen Drug Allergy 2 Other [facility] Comment on above: SEE'S DARK SPOTS (20 sources) Cinnamon Preparation; Translations: [CINNAMON] Drug Allergy 2 Unknown [facility] (20 sources) Penicillins; Translations: [Penicillins] Propensity to adverse reactions 2 Unknown [facility] (20 sources) Anesthetics - Amide Type - Select A Allergy to substance 2 Other [facility] Comment on above: STATES BILAT LUNGS C OLLAPSED AFTER OPEN HEART SURGERY AND HAVING ANESTHESIA. PT. UNSURE OF WHICH ANESTHESIA MEDS (11 sources) Pravastatin Drug Allergy 3 Myalgias after 15 years of taking [facility] (6 sources) ezetimibe Drug Allergy 4 myalgias [facility] (7 sources) leflunomide Drug Allergy 4 Chest tightness [facility] (1 source) Acetaminophen Drug Allergy 5 [facility] Repository (1 source) Cinnamon Preparation Drug Allergy 5 [facility] Repository (1 source) ezetimibe Drug Allergy 5 [facility] Rep[facility] (1 source) leflunomide Drug Allergy 5 [facility] Repository (1 source) Pravastatin Drug Allergy 5 [facility] Repository (1 source) Anesthetics - Amide Type - Select A Drug allergy (disorder) 5 [facility] Repository (1 source) Acetaminophen Drug Allergy [facility] Repository (1 source) Penicillin Drug Allergy [facility] Rep[facility] (1 source) ANESTHETIC, AMIDE Drug allergy (disorder) [facility] Repository Medications Current Medications Medication Drug Class(es) Dates Sig (Normalized) Sig (Original) albuterol 0.83 mg/ml inhalation solution (7 sources) beta2-Adrenergic Agonist Start: 05-09-2024 take 1.25 mg by inhalation three times daily as needed for wheezing Albuterol Sulfate 2.5 mg /3 mL (0.083 %) solution for nebulization Active 1.25 mg INHALATION THREE TIMES A DAY as needed for shortness of breath or wheezing May 09, 2024 12:00am 120 actuat albuterol 0.1 mg/actuat / ipratropium bromide 0.02 mg/actuat inhalation spray (20 sources) Anticholinergic, beta2-Adrenergic Agonist Start: 09-20-2022 take 20-100 ug by inhalation every six hours as needed Ipratropium-Albuter ol (Combivent Respimat) 20-100 mcg/actuation mist Active 1 NMA INHALATION EVERY 6 HOURS as needed for BREATHING September 20, 2022 1:00am Start: 09-20-2022 take 20-100 ug by in halation every six hours Ipratropium-Albuterol (Combivent Respimat) 20-100 mcg/actuation mist Active 1 PUFF INHALATION EVERY 6 HOURS September 20, 2022 12:00am Start: 12-17-2013 End: 11-19-2017 take 1 mL by inhalation at bedtime Ipratropium-Albuterol 3 ML solution for nebulization Discontinued 3 mL INHALATION AT BEDTIME December 17, 2013 12:00am November 19, 2017 9:17am Start: 12-17-2013 End: 11-19-2017 take 1 mL by inhalation at bedtime Ipratropium-Albuterol Discontinued 3 ML INHALATION AT BEDTIME December 16, 2013 11:00pm November 19, 2017 8:17am allopurinol 100 mg oral tablet (20 sources) Xanthine Oxidase Inhibitor Start: 11-22-2021 take 1 tablet by mouth once daily Allopurinol 100 mg tablet Active 100 mg PO DAILY November 22, 2021 12:00am Start: 10-09-2020 End: 11-22-2021 take 100 mg by mouth twice daily Allopurinol Discontinued 100 mg PO TWICE A DAY October 09, 2020 1:00am November 22, 2021 2:43pm aspirin 81 mg delayed release oral tablet (20 sources) Nonsteroidal Anti-inflammatory Drug Start: 11-19-2017 take 1 tablet by mouth once daily Aspirin 81 mg tablet,delayed release (DR/EC) Active 81 mg PO DAILY November 19, 2017 12:00am Start: 12-13-2016 take 1 tablet by elen th once daily ASPIRIN EC 81 MG TBEC One tablet by mouth daily ASPIRIN [id number] Saba Avitia RN biotin 10 mg oral capsule (20 sources) Start: 06-10-2024 take 1 capsule by mouth once daily Biotin 10,000 mcg capsule Active 79874 ug PO DAILY June 10, 2024 12:00am Start: 02-20-2021 End: 08-28-2022 take 2 tablets by mouth once daily Biotin 5,000 mcg tablet,disintegrating Discontinued 19746 ug PO DAILY February 20, 2021 12:00am August 28, 2022 2:24pm Start: 02-20-2021 End: 08-28-2022 take 71817 ug by mouth once daily Biotin Discontinued 09562 MCG PO DAILY February 19, 2021 11:00pm August 28, 2022 1:24pm cetirizine hydrochloride 10 mg oral tablet (20 sources) Histamine-1 Receptor Antagonist Start: 11-19-2017 End: 02-15-2020 take 1 tablet by mouth once daily as needed Cetirizine (Zyrtec) 10 mg tablet Active 10 mg PO DAILY as needed for allergies February 15, 2020 2:46pm Start: 12-13-2016 take 1 tablet by elen once daily ZYRTEC ALLERGY 10 MG TABS One tablet by mouth daily CETIRIZINE HCL [id number] Saba Avitia RN cholecalciferol 0.025 mg oral tablet (8 sources) Vitamin D Start: 06-05-2023 take 1 tablet by mouth once Cholecalciferol (Vitamin D3) 25 mcg (1,000 unit) tablet Active 25 ug PO every Friday, , , Sat June 05, 2023 12:00am ezetimibe 10 mg oral tablet (15 sources) Dietary Cholesterol Absorption Inhibitor Start: 02-27-2024 take 1 tablet by mouth once daily Ezetimibe (Zetia) 10 mg tablet Active 10 mg PO DAILY February 27, 2024 12:00am Start: 06-05-2023 End: 11-07-2023 take 1 tablet by mouth once daily Ezetimibe (Zetia) 10 mg tablet Discontinued 10 mg PO DAILY June 05, 2023 12:00am November 07, 2023 3:07pm On Hold: Ordered ferrous sulfate 325 mg oral tablet (20 sources) Start: 10-04-2022 take 325 mg by mouth twice daily Ferrous Sulfate Active 325 MG PO TWICE A DAY October 04, 2022 3:14pm Start: 09-20-2022 End: 10-04-2022 take 1 tablet by mouth once daily Ferrous Sulfate 325 mg (65 mg iron) tablet Active 325 mg PO DAILY October 04, 2022 4:14pm folic acid 1 mg oral tablet (20 sources) Start: 06-10-2024 take 1 tablet by mouth once daily Folic Acid 1 mg tablet Active 1 mg PO DAILY June 10, 2024 12:00am Start: 08-28-2022 End: 06-03-2023 take 1 tablet by mouth once daily Folic Acid 1 mg tablet Discontinued 1 mg PO DAILY August 28, 2022 1:00am June 03, 2023 11:31pm furosemide 40 mg oral tablet (20 sources) Loop Diuretic Start: 12-25-2022 take 0.25 tablet by mouth two times weekly Furosemide (Lasix) 40 mg tablet Active 40 MG PO DAILY December 25, 2022 2:36pm 1/4 pill twice a week Start: 09-20-2022 End: 12-25-2022 take 1 tablet by mouth once daily Furosemide (Lasix) 40 mg tablet Discontinued 40 mg PO DAILY September 23, 2022 1:00am December 25, 2022 2:37pm Start: 11-22-2021 End: 08-28-2022 take 1 tablet by mouth every other day Furosemide (Lasix) 40 mg tablet Discontinued 40 mg PO every other day May 24, 2022 1:47pm August 28, 2022 2:24pm Start: 01-22-2019 End: 11-22-2021 take 1 tablet by mouth once daily Furosemide (Lasix) 40 mg tablet Discontinued 40 mg PO DAILY January 22, 2019 12:00am November 22, 2021 2:30pm Start: 12-17-2013 End: 01-22-2019 take 1 tablet by mouth once daily Furosemide 20 MG tablet Discontinued 20 mg PO DAILY December 17, 2013 12:00am January 22, 2019 12:17pm glipiZIDE er 2.5 mg 24 hr extended release oral tablet (20 sources) Sulfonylurea Start: 06-10-2024 take 1 tablet by mouth twice daily Glipizide 2.5 mg tablet extended release 24hr Active 2.5 mg PO TWICE A DAY June 10, 2024 12:00am Start: 06-05-2023 End: 06-10-2024 take 2.5 mg by mouth once daily Glipizide 10 mg tablet Discontinued 2.5 mg PO DAILY June 05, 2023 10:37am June 10, 2024 12:41pm Start: 06-05-2023 take 2.5 mg by mouth once wanda y Glipizide Active 2.5 MG PO DAILY June 05, 2023 9:37am Start: 05-24-2022 End: 06-05-2023 take 5 mg by mouth twice daily Glipizide 10 mg tablet Discontinued 5 mg PO TWICE A DAY May 24, 2022 1:45pm June 05, 2023 10:40am Start: 05-24-2022 End: 06-05-2023 take 5 mg by mouth twice daily Glipizide Discontinued 5 MG PO TWICE A DAY May 24, 2022 12:45pm June 05, 2023 9:40am Start: 02-20-2021 End: 05-24-2022 take 1 tablet by mouth twice daily Glipizide 10 mg tablet Discontinued 10 mg PO TWICE A DAY February 20, 2021 12:00am May 24, 2022 1:48pm Start: 12-17-2013 End: 01-27-2021 take 1 tablet by mouth twice daily before mealtime Glipizide 10 MG tablet Discontinued 10 mg PO TWICE DAILY BEFORE MEALS December 17, 2013 12:00am January 27, 2021 10:59am ipratropium bromide 0.2 mg/ml inhalation solution (20 sources) Anticholinergic Start: 05-09-2024 take 0.5 mg by inhalation three times daily as needed for wheezing Ipratropium [place] 0.02 % solution Active 0.5 mg INHALATION THREE TIMES A DAY as needed for shortness of breath or wheezing May 09, 2024 12:00am Start: 12-13-2016 ATROVENT HFA A ERS as directed IPRATROPIUM BROMIDE HFA AERS [id number] Saba Avitia RN Start: 12-17-2013 End: 02-15-2020 Ipratropium [place] 12.9 GM inhaler Discontinued 2 NMA INHALATION 4 TIMES DAILY NEEDED as needed for Asthma December 17, 2013 12:00am February 15, 2020 2:48pm Start: 12-17-2013 End: 02-15-2020 take 1 puff(s) by inhalation four times daily as needed Ipratropium [place] Discontinued 2 PUFF INHALATION 4 TIMES DAILY NEEDED December 16, 2013 11:00pm February 15, 2020 1:48pm metoprolol tartrate 50 mg oral tablet (20 sources) beta-Adrenergic Bernie Start: 02-10-2025 take 1 tablet by mouth twice daily Metoprolol Tartrate 50 mg tablet Active 50 mg PO TWICE A DAY February 10, 2025 1:36pm Start: 11-15-2024 End: 02-10-2025 take 1 tablet by mouth once daily Metoprolol Tartrate 50 mg tablet Discontinued 50 mg PO DAILY November 15, 2024 12:00am February 10, 2025 1:36pm Start: 06-11-2024 End: 11-15-2024 Metoprolol Succinate 100 mg Tablet Extended Release 24 Hr Discontinued 100 mg PO DAILY June 11, 2024 12:00am November 15, 2024 1:58pm Hold for heart less than 50 or systolic blood pressure less than 100 mmHg. Start: 06-05-2023 End: 06-11-2024 take 1 tablet by mouth once daily Metoprolol Tartrate 50 mg tablet Discontinued 50 mg PO DAILY June 05, 2023 12:00am June 11, 2024 3:00pm Start: 12-17-2013 End: 09-30-2022 take 1 tablet by mouth twice daily Metoprolol Tartrate 50 MG tablet Discontinued 50 mg PO TWICE A DAY December 17, 2013 12:00am September 30, 2022 4:51pm montelukast 10 mg oral tablet (20 sources) Leukotriene Receptor Antagonist Start: 12-17-2013 take 1 tablet by mouth once daily as needed Montelukast 10 MG tablet Active 10 mg PO DAILY as needed for ASTHMA December 17, 2013 12:00am nitroglycerin 0.4 mg sublingual tablet (1 source) Nitrate Vasodilator Start: 02-10-2025 Nitroglycerin (Nitrostat) 0.4 mg tablet, sublingual Active 0.4 mg SL every 5 to 15 minutes as needed for chest pain February 10, 2025 12:00am do not exceed 3 doses per episode omeprazole 20 mg delayed release oral capsule (20 sources) Proton Pump Inhibitor Start: 11-04-2023 take 1 capsule by mouth once daily Omeprazole 20 mg capsule,delayed release(DR/EC) Active 20 mg PO DAILY November 04, 2023 1:00am Start: 12-17-2013 End: 09-23-2022 take 1 capsule by mouth once daily Omeprazole 20 MG capsule Discontinued 20 mg PO DAILY December 17, 2013 12:00am September 23, 2022 2:00pm spironolactone 25 mg oral tablet (20 sources) Aldosterone Antagonist Start: 08-25-2024 take 1 tablet by mouth once daily Spironolactone 25 mg tablet Active 25 mg PO DAILY August 25, 2024 4:04pm Start: 08-28-2022 End: 08-25-2024 take 1 tablet by mouth twice daily Spironolactone 25 mg tablet Discontinued 25 mg PO TWICE A DAY August 28, 2022 1:00am August 25, 2024 4:04pm Start: 08-28-2022 take 25 mg by mouth once daily Spironolactone Active 25 MG PO DAILY August 28, 2022 12:00am levothyroxine sodium 0.1 mg oral tablet (20 sources) l-Thyroxine Start: 11-15-2024 take 1 tablet by mouth once daily Levothyroxine 100 mcg tablet Active 100 ug PO DAILY November 15, 2024 12:00am Start: 06-11-2024 End: 11-15-2024 take 1 tablet by mouth once daily Levothyroxine 112 mcg tablet Discontinued 112 ug PO DAILY June 11, 2024 12:00am November 15, 2024 1:58pm Start: 06-05-2023 End: 06-11-2024 take 1 tablet by mouth once daily Levothyroxine 100 mcg tablet Discontinued 100 ug PO DAILY June 05, 2023 10:38am June 11, 2024 2:55pm Start: 12-25-2022 End: 06-05-2023 Levothyroxine 100 mcg tablet Discontinued 88 ug PO DAILY December 25, 2022 2:34pm June 05, 2023 10:40am Start: 12-25-2022 End: 06-05-2023 take 88 ug by mouth once daily Levothyroxine Discontin ued 88 MCG PO DAILY December 25, 2022 1:34pm June 05, 2023 9:40am Start: 11-22-2021 End: 12-25-2022 take 1 tablet by mouth once daily Levothyroxine 100 mcg tablet Discontinued 100 ug PO DAILY November 22, 2021 12:00am December 25, 2022 2:37pm Start: 12-23-2017 End: 11-22-2021 take 1 capsule by mouth once daily Levothyroxine 137 mcg capsule Discontinued 137 ug PO daily December 23, 2017 12:00am November 22, 2021 2:29pm Start: 12-17-2013 End: 12-23-2017 take 1 tablet by mouth once daily Levothyroxine 125 MCG tablet Discontinued 125 ug PO DAILY December 17, 2013 12:00am December 23, 2017 1:26pm Completed/Discontinued Medications Medication Drug Class(es) Dates Sig (Normalized) Sig (Original) amLODIPine 5 mg oral tablet (20 sources) Dihydropyridine Calcium Channel Bernie Start: 08-25-2024 End: 02-10-2025 Amlodipine 5 mg tablet Discontinued 5 mg PO DAILY August 25, 2024 4:02pm February 10, 2025 1:18pm Hold for SBP less than 130 mmHg Start: 06-11-2024 End: 08-25-2024 Amlodipine 5 mg tablet Disco ntinued 10 mg PO Q24H 60 June 21, 2024 4:55pm August 25, 2024 4:04pm Hold for SBP less than 130 mmHg Start: 03-30-2022 End: 05-24-2022 take 1 tablet by mouth once daily Amlodipine 10 mg tablet Discontinued 10 mg PO DAILY March 30, 2022 12:00am May 24, 2022 1:46pm ascorbic acid 113 mg / beta carotene 7160 mg / cuprous oxide 0.4 mg / dl-alpha tocopheryl acetate 100 unt / zinc oxide 17.4 mg oral tablet (8 sources) Vitamin C Start: 11-04-2023 End: 05-09-2024 Vitamins A,C,W-Jutc-Frojiv (Eye Multivitamin) 2,148 mcg-113 mg-45 mg-17.4mg tablet Discontinued 1 {tbl} PO TWICE A DAY November 04, 2023 1:00am May 09, 2024 11:38pm administer with AM and PM meals carvedilol 25 mg oral tablet (20 sources) alpha-Adrenerg ic Bernie, beta-Adrenergi c Bernie Start: 12-25-2022 End: 06-03-2023 take 1 tablet by mouth twice daily Carvedilol 25 mg tablet Discontinued 25 mg PO TWICE A DAY 180 December 25, 2022 2:54pm June 03, 2023 11:31pm Start: 10-30-2022 End: 12-25-2022 take 2 tablets by mouth twice daily Carvedilol (Coreg) 12.5 mg tablet Discontinued 12.5 mg PO TWICE A DAY 180 October 30, 2022 4:36am December 25, 2022 2:55pm increase to 2 tablets twice daily Start: 09-30-2022 End: 10-30-2022 take 1 tablet by mouth twice daily at mealtime Carvedilol (Coreg) 12.5 mg tablet Discontinued 12.5 mg PO TWICE A DAY 180 September 30, 2022 1:00am October 30, 2022 4:36am must administer with a meal/food Start: 02-20-2021 End: 11-22-2021 take 1 tablet by mouth twice daily at mealtime Carvedilol 25 mg tablet Discontinued 25 mg PO TWICE A DAY February 20, 2021 12:00am November 22, 2021 2:39pm must administer with a meal/food cephalexin 500 mg oral capsule (6 sources) Cephalosporin Antibacterial Start: 12-03-2024 End: 01-23-2025 take 1 capsule by mouth every six hours Cephalexin 500 mg capsule Discontinued 500 mg PO EVERY 6 HOURS December 03, 2024 12:00am January 23, 2025 2:02pm Start: 01-10-2022 take 500 mg by mouth every six hours Cephalexin Active 500 MG PO EVERY 6 HOURS January 10, 2022 12:39pm ciprofloxacin 250 mg oral tablet (20 sources) Quinolone Antimicrobial Start: 09-18-2022 End: 01-16-2023 take 1 tablet by mouth every twelve hours Ciprofloxacin Hcl (Cipro) 250 mg tablet Discontinued 250 mg PO Q12H September 20, 2022 5:07pm September 23, 2022 2:00pm Citrizine (20 sources) Start: 12-17-2013 End: 11-19-2017 take 10 mg by mouth once daily Citrizine Discontinued 10 MG PO DAILY December 17, 2013 3:13pm November 19, 2017 9:16am Start: 12-17-2013 End: 11-19-2017 take 10 mg by mouth once daily Citrizine Discontinued 10 mg PO DAILY December 17, 2013 12:00am November 19, 2017 9:16am Start: 12-17-2013 End: 11-19-2017 take 10 mg by mouth once daily Citrizine Discontinued 10 MG PO DAILY December 16, 2013 11:00pm November 19, 2017 8:16am Start: 12-17-2013 End: 11-19-2017 take 10 mg by mouth once daily Citrizine Discontinued 10 MG PO DAILY December 17, 2013 12:00am November 19, 2017 9:16am clopidogrel 75 mg oral tablet (20 sources) [id number] Platelet Inhibitor Start: 12-22-2017 End: 09-23-2022 take 1 tablet by mouth once daily Clopidogrel 75 mg tablet Discontinued 75 mg PO daily December 22, 2017 11:48am September 23, 2022 2:14pm Start: 11-19-2017 End: 12-22-2017 take 2 tablets by mouth once daily Clopidogrel 75 mg tablet Discontinued 150 mg PO daily November 19, 2017 12:00am December 22, 2017 11:48am Start: 11-19-2017 End: 12-22-2017 take 150 mg by mouth once daily Clopidogrel Discontinu ed 150 MG PO daily November 18, 2017 11:00pm December 22, 2017 10:48am Start: 12-13-2016 take 1 tablet by elen th once daily CLOPIDOGREL BISULFATE 75 MG TABS One tablet by mouth daily CLOPIDOGREL BISULFATE [id number] Saba Avitia RN doxycycline hyclate 100 mg oral capsule (20 sources) Tetracycline-class Drug Start: 01-25-2021 End: 02-20-2021 take 1 capsule by mouth twice daily Doxycycline Hyclate 100 mg capsule Discontinued 100 mg PO TWICE A DAY January 25, 2021 12:00am February 20, 2021 3:37pm gabapentin 300 mg oral capsule (9 sources) Anti-epileptic Agent Start: 06-03-2023 End: 06-05-2023 take 1 capsule by mouth once daily Gabapentin 300 mg capsule Discontinued 300 mg PO DAILY June 03, 2023 12:00am June 05, 2023 10:37am 12 hr guaiFENesin 1200 mg extended release oral tablet (20 sources) Start: 01-17-2021 End: 02-20-2021 take 1 tablet by mouth twice daily, then take 1 tablet by mouth every twelve hours Guaifenesin (Mucus Relief Er) 1,200 mg tablet extended release 12hr Discontinued 1200 mg PO TWICE A DAY January 17, 2021 12:00am February 20, 2021 3:37pm 24 hr isosorbide mononitrate 30 mg extended release oral tablet (13 sources) Nitrate Vasodilator Start: 10-30-2022 End: 12-25-2022 take 1 tablet by mouth once daily, then take 1 tablet by mouth every twenty-four hours Isosorbide Mononitrate 30 mg tablet extended release 24 hr Discontinued 30 mg PO DAILY October 30, 2022 1:00am December 25, 2022 2:35pm leflunomide 10 mg oral tablet (7 sources) Antirheumatic Agent Start: 06-10-2024 End: 08-25-2024 take 5 mg by mouth once daily Leflunomide 10 mg tablet Discontinued 5 mg PO DAILY June 10, 2024 12:00am August 25, 2024 4:03pm lisinopril 20 mg oral tablet (20 sources) Angiotensin Converting Enzyme Inhibitor Start: 05-24-2022 End: 08-28-2022 take 1 tablet by mouth once daily Lisinopril 20 mg tablet Discontinued 20 mg PO DAILY May 24, 2022 12:00am August 28, 2022 2:24pm Start: 11-22-2021 End: 03-30-2022 take 1 tablet by mouth once daily Lisinopril 30 mg tablet Discontinued 30 mg PO DAILY November 22, 2021 12:00am March 30, 2022 6:27pm Start: 11-19-2017 End: 11-22-2021 take 1 tablet by mouth once daily Lisinopril 20 mg tablet Discontinued 20 mg PO DAILY November 19, 2017 12:00am November 22, 2021 2:28pm Start: 12-13-2016 take 1 tablet by elen th once daily LISINOPRIL 20 MG TABS One tablet by mouth daily LISINOPRIL [id number] Saba Avitia RN Start: 12-17-2013 End: 11-19-2017 take 1 tablet by mouth once daily Lisinopril 5 MG tablet Discontinued 5 mg PO DAILY December 17, 2013 12:00am November 19, 2017 9:15am meclizine hydrochloride 12.5 mg oral tablet (20 sources) Antiemetic Start: 11-19-2017 End: 12-23-2017 take 1 tablet by mouth three times daily Meclizine 12.5 mg tablet Discontinued 12.5 mg PO THREE TIMES A DAY November 19, 2017 12:00am December 23, 2017 1:47pm Start: 12-13-2016 take 1 tablet by elen th three times daily MECLIZINE HCL 12.5 MG TABS One tablet by mouth three times daily MECLIZINE HCL [id number] Saba Avitia RN metFORMIN hydrochloride 1000 mg oral tablet (20 sources) Biguanide Start: 12-17-2013 End: 11-22-2021 take 1 tablet by mouth twice daily at mealtime Metformin 1,000 MG tablet Discontinued 1000 mg PO TWICE DAILY WITH MEALS December 17, 2013 12:00am November 22, 2021 2:29pm 30 actuat mometasone furoate 0.11 mg/actuat dry powder inhaler (20 sources) Corticosteroid Start: 12-17-2013 End: 11-19-2017 take 110 ug by inhalation at bedtime Mometasone 110 MCG aerosol powdr breath activated Discontinued 110 ug INHALATION AT BEDTIME December 17, 2013 12:00am November 19, 2017 9:17am nitrofurantoin, macrocrystals 25 mg / nitrofurantoin, monohydrate 75 mg oral capsule (12 sources) Nitrofuran Antibacterial Start: 11-16-2022 End: 12-25-2022 take 1 capsule by mouth every twelve hours Nitrofurantoin Monohyd/M-Cryst 100 mg capsule Discontinued 100 mg PO EVERY 12 HOURS November 16, 2022 1:00am December 25, 2022 2:35pm oxyCODONE hydrochloride 5 mg oral tablet (6 sources) Opioid Agonist Start: 11-16-2024 End: 01-23-2025 take 1 tablet by mouth every six hours as needed for pain Oxycodone 5 mg Tablet Discontinued 5 mg PO EVERY 6 HOURS as needed for pain 9 3 November 16, 2024 January 23, 2025 2:04pm pantoprazole 40 mg delayed release oral tablet (15 sources) Proton Pump Inhibitor Start: 09-23-2022 End: 06-03-2023 take 1 tablet by mouth twice daily Pantoprazole 40 mg tablet,delayed release (DR/EC) Discontinued 40 mg PO TWICE A DAY 60 September 23, 2022 1:00am June 03, 2023 11:32pm pravastatin sodium 80 mg oral tablet (20 sources) HMG-CoA Reductase Inhibitor Start: 02-15-2020 End: 02-05-2023 take 1 tablet by mouth at bedtime Pravastatin 80 mg tablet Discontinued 80 mg PO AT BEDTIME February 15, 2020 12:00am February 05, 2023 5:57pm Start: 11-19-2017 End: 02-15-2020 take 1 tablet by mouth at bedtime Pravastatin 40 mg tablet Discontinued 40 mg PO AT BEDTIME November 19, 2017 12:00am February 15, 2020 2:47pm Start: 12-13-2016 take 1 tablet by elen th at bedtime PRAVACHOL 40 MG TABS One tablet by mouth at bedtime. PRAVASTATIN SODIUM [id number] Saba Avitia RN Start: 12-17-2013 End: 11-19-2017 take 1 tablet by mouth at bedtime Pravastatin 80 MG tablet Discontinued 80 mg PO AT BEDTIME December 17, 2013 12:00am November 19, 2017 9:14am predniSONE 20 mg oral tablet (20 sources) Start: 01-17-2025 End: 02-10-2025 take 2 tablets by mouth once daily Prednisone 20 mg tablet Discontinued 40 mg PO DAILY 8 January 17, 2025 12:00am February 10, 2025 1:21pm Start: 02-27-2024 take 1 tablet by elen th once daily Prednisone 5 mg tablet Active 5 mg PO DAILY February 27, 2024 3:21pm On Hold: while on higher-dose prednisone Start: 11-07-2023 End: 02-27-2024 take 3 tablets by mouth once daily Prednisone 5 mg tablet Discontinued 15 mg PO DAILY November 07, 2023 1:00am February 27, 2024 3:21pm Start: 11-07-2023 take 15 mg by mouth once daily Prednisone Active 15 MG PO DAILY November 07, 2023 12:00am Start: 06-05-2023 End: 11-07-2023 take 10 mg by mouth once daily as needed for pain Prednisone 20 mg tablet Discontinued 10 mg PO DAILY as needed for pain June 05, 2023 10:38am November 07, 2023 3:01pm Start: 06-05-2023 End: 11-07-2023 take 10 mg by mouth once daily Prednisone Discontinued 10 MG PO DAILY June 05, 2023 9:38am November 07, 2023 2:01pm Start: 06-03-2023 End: 06-05-2023 take 1 tablet by mouth once daily Prednisone 20 mg tablet Discontinued 20 mg PO DAILY June 03, 2023 12:00am June 05, 2023 10:40am Start: 01-10-2022 take 60 mg by mouth once daily Prednisone Active 60 MG PO DAILY January 10, 2022 12:39pm Start: 01-17-2021 End: 02-20-2021 take 2 tablets by mouth once daily Prednisone 20 mg tablet Discontinued 40 mg PO DAILY 6 January 17, 2021 12:00am February 20, 2021 3:38pm Start: 01-17-2021 End: 02-20-2021 take 40 mg by mouth once daily Prednisone Discontinued 40 MG PO DAILY 02 08January 16, 2021 11:00pm February 20, 2021 2:38pm sulfamethoxazole 800 mg / trimethoprim 160 mg oral tablet (20 sources) Dihydrofolate Reductase Inhibitor Antibacterial, Sulfonamide Antimicrobial Start: 01-23-2025 End: 02-10-2025 Sulfamethoxazole-Trimethopri m 800-160 mg tablet Discontinued 1 {tbl} PO DAILY January 23, 2025 12:00am February 10, 2025 1:22pm Start: 02-05-2023 End: 11-04-2023 Sulfamethoxazole-Trimethopri m (Bactrim Ds) 800-160 mg tablet Discontinued 1 {tbl} PO TWICE A DAY 21 03April 20, 2023 12:00am November 04, 2023 11:06am Start: 10-30-2022 End: 12-25-2022 Sulfamethoxazole-Trimethopri m 1 TABLET tablet Discontinued 1 {tbl} PO TWICE A DAY October 30, 2022 1:00am December 25, 2022 2:35pm Start: 10-30-2022 End: 12-25-2022 take 1 tablet by mouth twice daily Sulfamethoxazole-Trimethoprim Discontinu ed 1 TABLET PO TWICE A DAY October 30, 2022 12:00am December 25, 2022 1:35pm Start: 03-28-2022 End: 05-24-2022 Sulfamethoxazole-Trimethopri m 800-160 mg tablet Discontinued 1 {tbl} PO DAILY March 28, 2022 12:00am May 24, 2022 1:48pm Start: 03-28-2022 End: 05-24-2022 take 1 tablet by mouth once daily Sulfamethoxazole-Trimethoprim Discontinu ed 1 TABLET PO DAILY March 27, 2022 11:00pm May 24, 2022 12:48pm traMADol hydrochloride 50 mg oral tablet (11 sources) Opioid Agonist Start: 02-05-2023 End: 06-03-2023 take 1 tablet by mouth every four hours as needed for pain Tramadol 50 mg tablet Discontinued 50 mg PO EVERY 4 HOURS NEEDED as needed for Pain 12 February 05, 2023 12:00am June 03, 2023 11:32pm Problems Active Problems Problem Classification Problem Date Documented Da te Episodic/Chronic Abdominal hernia (20 sources) Hernia of abdominal cavity; Translations: [Other specified abdominal hernia with obstruction, without gangrene] Onset: 5 11-15-2024 Episodic Abdominal pain (14 sources) Abdominal pain; Translations: [Unspecified abdominal pain] Onset: 5 11-15-2024 Episodic Acute and unspecified renal failure (19 sources) Injury of kidney; Translations: [Acute kidney failure, unspecified] 04-07-2022 Episodic Acute myocardial infarction (20 sources) Acute non-ST segment elevation myocardial infarction; Translations: [Non-ST elevation (NSTEMI) myocardial infarction] Onset: 7 12-13-2016 Chronic Asthma (20 sources) Asthma; Translations: [Unspecified asthma, uncomplicated] 01-29-2021 Chronic Cardiac dysrhythmias (20 sources) Palpitations - rapid; Translations: [Palpitations] 11-22-2021 Episodic Chronic kidney disease (20 sources) Chronic kidney disease; Translations: [Chronic kidney disease, unspecified] Onset: 4 09-26-2022 Chronic Chronic kidney disease (3 sources) Chronic kidney disease; Translations: [Chronic kidney disease, stage 3b] Onset: 5 Chronic obstructive pulmonary disease and bronchiectasis (12 sources) Acute exacerbation of chronic obstructive airways disease; Translations: [Chronic obstructive pulmonary disease with (acute) exacerbation] 11-16-2022 Chronic Complication of device; implant or graft (20 sources) Arteriosclerosis of coronary artery bypass graft; Translations: [Atherosclerosis of coronary artery bypass graft(s) without angina pectoris] Chronic Congestive heart failure; nonhypertensive (20 sources) Chronic diastolic (congestive) heart failure; Translations: [Chronic combined systolic and diastolic heart failure] Onset: 7 12-13-2016 Chronic Coronary atherosclerosis and other heart disease (20 sources) Coronary arteriosclerosis; Translations: [History of non-ST segment elevation myocardial infarction] Onset: 7 06-23-2017 Chronic Comment on above: 01/2016, 11/05/19, 01/07 09/28 Deficiency and other anemia (1 source) Anemia in chronic kidney disease; Translations: [Anemia in chronic kidney disease] Onset: 5 Chronic Deficiency and other anemia (17 sources) Anemia; Translations: [Anemia, unspecified] Onset: 7 06-23-2017 Episodic Deficiency and other anemia (5 sources) Anemia, unspecified; Translations: [Anemia, unspecified] Onset: 5 10-04-2022 Episodic Diabetes mellitus with complications (5 sources) Type 2 diabetes mellitus with other specified complication; Translations: [Type 2 diabetes mellitus with diabetic chronic kidney disease] Onset: 4 Chronic Diabetes mellitus without complication (20 sources) Diabetes mellitus; Translations: [Type 2 diabetes mellitus] Onset: 7 12-13-2016 Chronic Disorders of lipid metabolism (20 sources) Hyperlipidemia; Translations: [Hyperlipidemia, unspecified] Onset: 7 12-13-2016 Chronic E Codes: Natural/environment (20 sources) Insect bite - wound; Translations: [Bitten or stung by nonvenomous insect and other nonvenomous arthropods, initial encounter] 11-22-2021 Episodic Esophageal disorders (4 sources) Gastroesophageal reflux disease; Translations: [Gastro-esophageal reflux disease without esophagitis] Onset: 7 12-13-2016 Chronic Essential hypertension (20 sources) Hypertensive disorder; Translations: [Essential hypertension] Onset: 7 12-13-2016 Chronic Fluid and electrolyte disorders (10 sources) Acute hyperkalemia; Translations: [Hyperkalemia] 02-08-2023 Episodic Gastrointestinal hemorrhage (19 sources) Gastrointestinal hemorrhage; Translations: [Gastrointestinal hemorrhage, unspecified] 09-26-2022 Episodic Hypertension with complications and secondary hypertension (20 sources) Hypertensive urgency ; Translations: [Hypertensive urgency] 10-17-2021 Chronic Influenza (10 sources) Influenza due to Influenza B virus; Translations: [Influenza due to other identified influenza virus with other respiratory manifestations] 02-08-2023 Episodic Malaise and fatigue (20 sources) Asthenia; Translations: [Weakness] Onset: 5 01-29-2021 Episodic Nonspecific chest pain (20 sources) Chest pain; Translations: [Chest pain, unspecified] Onset: 4 01-29-2021 Episodic Nutritional deficiencies (1 source) Vitamin D deficiency, unspecified; Translations: [Vitamin D deficiency, unspecified] Onset: 5 Chronic Other circulatory disease (20 sources) Abnormal sensation; Translations: [Other specified symptoms and signs involving the circulatory and respiratory systems] 04-05-2022 Episodic Other endocrine disorders (1 source) Secondary hyperparathyroidism, not elsewhere classified; Translations: [Secondary hyperparathyroidism, not elsewhere classified] Onset: 5 Chronic Other gastrointestinal disorders (2 sources) Constipation; Translations: [Constipation, unspecified] 01-27-2025 Episodic Other gastrointestinal disorders (1 source) Constipation, unspecified; Translations: [Constipation, unspecified] Onset: 5 Episodic Other lower respiratory disease (20 sources) Dyspnea; Translations: [Dyspnea, unspecified] 01-18-2022 Episodic Other nervous system disorders (20 sources) Paresthesia of right upper limb; Translations: [Paresthesia of skin] 01-29-2021 Episodic Other non-traumatic joint disorders (11 sources) Hip pain; Translations: [Pain in left hip] 02-05-2023 Episodic Other non-traumatic joint disorders (2 sources) Shoulder pain; Translations: [Pain in left shoulder] 02-05-2023 Episodic Other non-traumatic joint disorders (9 sources) Pain in left shoulder; Translations: [Acute pain of left shoulder] 02-13-2023 Episodic Other nutritional; endocrine; and metabolic disorders (2 sources) Body mass index (BMI) 40.0-44.9, adult; Translations: [Body mass index (BMI) 40.0-44.9, adult] Onset: 7 06-23-2017 Chronic Other nutritional; endocrine; and metabolic disorders (20 sources) Morbid obesity; Translations: [Morbid (severe) obesity due to excess calories] 01-29-2021 Chronic Other upper respiratory infections (20 sources) Viral upper respiratory tract infection; Translations: [Acute upper respiratory infection, unspecified] 01-29-2021 Episodic Ivelisse-; endo-; and myocarditis; cardiomyopathy (except that caused by tuberculosis or sexually transmitted disease) (20 sources) Cardiomyopathy; Translations: [Cardiomyopathy, unspecified] Chronic Residual codes; unclassified (20 sources) Blood pressure alteration; Translations: [Other general symptoms and signs] 04-05-2022 Episodic Rheumatoid arthritis and related disease (3 sources) Inflammatory polyarthropathy; Translations: [Inflammatory polyarthropathy] Onset: Chronic Spondylosis; intervertebral disc disorders; other back problems (9 sources) Cervical arthritis; Translations: [Spondylosis without myelopathy or radiculopathy, cervical region] 04-28-2023 Chronic Thyroid disorders (20 sources) Hypothyroidism; Translations: [Hypothyroidism, unspecified] Onset: 7 12-13-2016 Chronic Transient cerebral ischemia (20 sources) Transient cerebral ischemia; Translations: [Transient cerebral ischemic attack, unspecified] 01-29-2021 Chronic Unclassified (3 sources) Placement of stent in coronary artery ; Translations: [Presence of coronary angioplasty implant and graft] Onset: 7 12-13-2016 Urinary tract infections (20 sources) Urinary tract infectious disease; Translations: [Urinary tract infection, site not specified] 01-29-2021 Episodic Past or Other Problems Problem Classification Problem Date Documented Da te Episodic/Chronic Coronary atherosclerosis and other heart disease (20 sources) History of coronary artery bypass grafting; Translations: [Presence of aortocoronary bypass graft] Onset: 10-11-2007 12-13-2016 Episodic Genitourinary symptoms and ill-defined conditions (4 sources) Frequency of micturition; Translations: [Unspecified symptoms and signs involving the genitourinary system] Onset: 08-11-2024 Episodic Other aftercare (1 source) Other fdc (current) drug therapy; Translations: [Other fdc (current) drug therapy] Onset: 05-11-2024 Episodic Other nutritional; endocrine; and metabolic disorders (1 source) Hyperuricemia without signs of inflammatory arthritis and tophaceous disease; Translations: [Hyperuricemia without signs of inflammatory arthritis and tophaceous disease] Onset: 07-10-2024 Episodic Other screening for suspected conditions (not mental disorders or infectious disease) (16 sources) Encounter for screening for malignant neoplasm of colon; Translations: [Raised cardiac enzyme or marker] Onset: 03-02-2024 Episodic Results Test Name Value Interpretation Reference Range Facility PTH, INTACT [CCL]on 03-08-20 25 PTH, Intact 46 pg/mL Normal 15-65 [facility] Comment on above: Result Comment: [facility] [address] [place] [address] Brock Chavez III, M.D. [id number] Performed By: #### 2 [id number] #### [facility],[address] [place], [place] [id number] BMP with eGFRon 03-07-2025 AGE [address] [facility] Comment on above: Performed By: #### 2 [id number] #### [facility],[address] [place] [address] 24955 Anion gap [Moles/Vol] 12 mmol/L Normal 10 - 20 [facility] Comment on above: Performed By: #### 2 [id number] #### [facility],[address] [place], [place] [id number] BMP with eGFR Normal [facility] Comment on above: Result Comment: BASI C METABOLIC PANEL Performed By: #### 2 [id number] #### [facility],[address] [place], [place] [id number] Calcium [Mass/Vol] 8.6 mg/dL Normal 8.5 - 10.1 [facility] Comment on above: Performed By: #### 2 [id number] #### [facility],[address] [place] [address] Chloride [Moles/Vol] 101 mmol/L Normal 98 - 107 [facility] Comment on above: Performed By: #### 2 [id number] #### [place] [address] CO2 [Moles/Vol] 25.8 mmol/L Normal 21.0 - 32.0 [facility] Comment on above: Performed By: #### 2 [id number] #### [facility],[address] [place], [place] [id number] Creatinine [Mass/Vol] 2.33 mg/dL High 0.55 - 1.02 [facility] Comment on above: Performed By: #### 2 [id number] #### [facility],[address] [place], [place] [id number] eGFR 20 ML/MINUTE Low 60 - 999 [facility] Comment on above: Performed By: #### 2 [id number] #### [facility],[address] [place], [place] [id number] eGFR(AA) 24 ML/MINUTE Low 60 - 999 [facility] Comment on above: Result Comment: ACCO RDING TO THE NATIONAL KIDNEY DISEASE EDUCATION PROGRAM(NKDE), A NORMAL eGFR IS A VALUE GREATER THAN OR EQUAL TO 60 ML/MIN/1.73 SQ METERS. CHRONIC KIDNEY DISEASE: <60mL/MIN/1.73 SQ METERS KIDNEY FAILURE: <15mL/MIN/1.73 SQ METERS THIS TEST SHOULD ONLY BE USED FOR PATIENTS 18 YEARS OF AGE AND OLDER. Performed By: #### 2 [id number] #### [address],[place] [address] Glucose [Mass/Vol] 157 mg/dL High 74 - 106 [facility] Comment on above: Performed By: #### 2 [id number] #### [facility],[address] [place] [address] 98439 Potassium [Moles/Vol] 4.9 mmol/L Normal 3.5 - 5.1 [facility] Comment on above: Performed By: #### 2 [id number] #### [facility],[address] [place] [address] 31370 Sodium [Moles/Vol] 134 mmol/L Low 136 - 145 [facility] Comment on above: Performed By: #### 2 [id number] #### [facility],[address] [place] [address] 38924 Urea nitrogen [Mass/Vol] 37 mg/dL High 7 - 18 [facility] Comment on above: Performed By: #### 2 [id number] #### [facility],[address] [place] [address] 32587 CBC + DIFFon 03-07-2025 Baso # 0.03 x10EE3/UL Normal 0.00 - 0.10 [facility] Comment on above: Performed By: #### 2 [id number] #### [facility],[address] [place] [address] 14037 Basophils/100 WBC (Bld) 0.4 % Normal 0.0 - 2.0 [facility] Comment on above: Performed By: #### 2 [id number] #### [facility],[address] [place] [address] 07258 CBC + DIFF Normal [facility] Comment on above: Result Comment: CBC- COMPLETE BLOOD COUNT Performed By: #### 2 [id number] #### [facility],[address] [place] [address] 69059 EO # 0.05 x10EE3/UL Normal 0.00 - 0.50 [facility] Comment on above: Performed By: #### 2 [id number] #### [facility],[address] [place] [address] 35221 Eosinophils/100 WBC (Bld) 0.6 % Normal 0.0 - 7.0 [facility] Comment on above: Performed By: #### 2 [id number] #### [facility],[address] [place] [address] Erythrocyte distribution width (RBC) [Ratio] 14.3 % Normal 12.0 - 15.6 [facility] Comment on above: Performed By: #### 2 25082 #### [place] [address] Hematocrit (Bld) [Volume fraction] 31.4 % Low 34.0 - 46.0 [facility] Comment on above: Performed By: #### 2 13730 #### [place] [address] Hemoglobin (Bld) [Mass/Vol] 10.5 g/dL Low 12.0 - 16.0 [facility] Comment on above: Performed By: #### 2 03688 #### [place] [address] Lymph # 2.01 x10EE3/UL Normal 0.80 - 2.80 [facility] Comment on above: Performed By: #### 2 [id number] #### [place] [phone] Lymphocytes/100 WBC (Bld) 25.0 % Normal 20.0 - 45.0 [facility] Comment on above: Performed By: #### 2 [id number] #### [place] [phone] MANUAL DIFF N/A Normal [facility] Comment on above: Performed By: #### 2 [id number] #### [place] [address] MCH (RBC) [Entitic mass] 31 pg Normal 27 - 33 [facility] Comment on above: Performed By: #### 2 [id number] #### [facility],[address] [place] [address] 00673 MCHC 34 X10 3 Normal 32 - 36 [facility] Comment on above: Performed By: #### 2 [id number] #### [facility],[address] [place] [address] 55636 MCV (RBC) [Entitic vol] 94 fL Normal 80 - 99 [facility] Comment on above: Performed By: #### 2 [id number] #### [facility],[address] [place] [address] Burnett # 0.51 x10EE3/UL Normal 0.20 - 1.00 [facility] Comment on above: Performed By: #### 2 [id number] #### [facility],[address] [place] [address] 79690 MONOS % 6.4 % Normal 0.0 - 10.0 [facility] Comment on above: Performed By: #### 2 [id number] #### [facility],[address] [place] [address] 77956 Morphology Hayden (Bld) [Interp] N/A Normal [facility] Comment on above: Performed By: #### 2 07275 #### [facility],[address] [place] [address] 04056 Neut # 5.47 x10EE3/UL Normal 1.50 - 7.10 [facility] Comment on above: Performed By: #### 2 10711 #### [facility],[address] [place] [address] 84796 Neutrophils/100 WBC (Bld) 67.7 % Normal 46.0 - 76.0 [facility] Comment on above: Performed By: #### 2 75593 #### [facility],[address] [place] [address] 22387 PLATELET 379 x10EE3/UL Normal 150 - 450 [facility] Comment on above: Performed By: #### 2 92526 #### [facility],[address] [place] [address] 60025 Platelet mean volume (Bld) [Entitic vol] 8.1 fL Normal 6.6 - 10.5 [facility] Comment on above: Result Comment: AUTO MATED DIFFERENTIAL Performed By: #### 2 32848 #### [facility],[address] [place] [address] RBC 3.36 x 10EE6/UL Low 4.10 - 5.30 [facility] Comment on above: Performed By: #### 2 30614 #### [facility],[address] [place], [place] [address] WBC 8.1 x 10EE3/UL Normal 4.5 - 10.8 [facility] Comment on above: Performed By: #### 2 38498 #### [facility],[address] [place], [place] [address] URIC ACIDon 03-07-2025 Urate [Mass/Vol] 5.0 mg/dL Normal 2.6 - 6.0 [facility] Comment on above: Performed By: #### 2 58009 #### [facility],[address] [place] [address] 73155 URINE CREATININE AND PROTEIN RATIOon 03-07-2025 CREATININE UR 89.53 mg/dl Normal [facility] Comment on above: Performed By: #### 2 25931 #### [facility],[address] [place] [address] 31323 PC RATIO 1.02 mg/dL Normal 0.00 - 10.00 [facility] Comment on above: Performed By: #### 2 49209 #### [facility],[address] [place] [address] 65137 Protein (U) [Mass/Vol] 91.50 mg/dL High 0.00 - 10.00 [facility] Comment on above: Performed By: #### 2 75688 #### [facility],[address] [place] [address] 14590 VITAMIN D, 25 HYDROXYon 02-08 VitD 47.70 ng/mL Normal 30.00 - 100 [facility] Comment on above: Result Comment: 25-O HD3 indicates both endogenous production and supplementation. 25-OHD2 is an indicator of exogenous sources, such as diet or supplementation. Therapy is based on measurement of Total 25-OHD, with levels <20 ng/mL indicative of Vitamin D deficiency, while levels between 20 ng/mL and 30 ng/mL suggest insufficiency. Optimal levels are >=30ng/mL. Vitamin D, 25-OH D3 Not Established Vitamin D, 25-OH D2 Not Established Performed By: #### 2 09270 #### [facility],[address] [place] [address] 16890 Cardiology Visit Reporton Cardiology Visit Report [facility] [address] [place] [address] OFFICE VISIT Date of Service: 02/10/25 MR#: [id number] Acct: [id number] Name: ADELA WELLS Rep #: [id number] : 1945 Provider: LAYNE Holcomb Age/Sex: 79/F [place] [facility] Status: Signed HPI HPI History of Present Illness Details: Adela Wells is a 79-year-old female who presents for a cardiovascular follow-up visit. She has a history of coronary artery disease with 6 vessel bypass in 2007. In 2015, she had a non-ST myocardial infarction and underwent percutaneous balloon intervention of the mid RCA with stent placement and balloon angioplasty of the proximal RCA. She also underwent angioplasty of the saphenous vein graft to the posterior descending artery. In October 2019, she had angiography at [facility] after presenting with non-STEMI. At that time, she had patent HEART to LAD and 80% stenosis in the SVG to diagonal 1. Other grafts were felt to be occluded. She underwent a PCI of the saphenous vein graft to the first diagonal vessel and also the teller left circumflex artery with a drug-eluting stent. She did present to the emergency room in October of 2021 with shortness of breath as well as palpitations. Her blood pressure was noted to be elevated her laboratory tests were noted to be normal. Her ejection fraction has been estimated to be 60% with no wall motion abnormalities present. She did have a stress test which was abnormal, however with her renal function and lack of cardiac symptoms it was opted to treat medically. She was advised to increase her coreg and isosorbide. She did not do this. She presented to the emergency room on 11/04/2023 with complaints of shortness of breath. She underwent a cardiac catheterization on 11/06/2023 which demonstrated bypass grafts noted to be occluded and the HEART to the LAD which is patent, teller right coronary artery which is patent with moderate disease, and a saphenous vein graft to a small diagonal vessel with severe distal disease. Medical therapy was recommended at that time. She again presented to [facility] in 06/2024 with concerns of CP. EKG demonstrated slight ST depression in lateral leads, V3-V6 in 1 and aVL. Troponin is mildly increased 43, 113 and 187 suggestive of mild non-STEMI. Her medication is optimized. Metoprolol was increased and amlodipine was added. Pt was in the ER last month for CP. there was discussion about obtaining an OP stress test. Patient feels that this was more so related to reflux and musculoskeletal. She has not had any sym ptoms since her ER visit. Intake Vital Signs 01/23/25 12:18 01/27/25 01:07 02/10/25 13:15 02/10/25 13:23 Height 5 ft 1 in 5 ft 1 in 5 ft 1 in Weight: 146 lb BP 134/62 H Blood Pressure Location Rt brachial Position Sitting Respiration 18 Pulse 70 Pulse Source Monitor Intake Visit Reasons: S/P [facility] 01/23 CP Business Practices Supervisor Required: No Accompanied by: Self Is patient in pain?: No Allergies Anesthetics - Amide Type - Select A (Anesthetics - Amide Type) Allergy (Verified 02/10/25 13:18) Other acetaminophen (From Tylenol) Adverse Reaction (Severe, Verified 02/10/25 13:18) Other pravastatin Adverse Reaction (Intermediate, Verified 02/10/25 13:18) Myalgias after 15 years of taking cinnamon Adverse Reaction (Unknown, Verified 02/10/25 13:18) Unknown Penicillins Adverse Reaction (Unknown, Verified 02/10/25 13:18) Unknown leflunomide Adverse Reaction (Verified 02/10/25 13:18) Chest tightness Medications ???Medication ???Instructions ???Recorded ???Confirmed ???Type montelukast 10 mg tablet 10 mg PO DAILY PRN ASTHMA 12/17/13 02/10/25 History aspirin 81 mg tablet,delayed 81 mg PO DAILY HEART HEALTH 02/10/25 History release cetirizine 10 mg tablet (Zyrtec) 10 mg PO DAILY PRN allergies 02/1402/10/25 History allopurinol 100 mg tablet 100 mg PO DAILY GOUT 11/22/21/01/30 History ipratropium 20 mcg-albuterol 100 1 puff inhalation Q6H PRN BREATHIN G 09/20/22 02/10/25 History mcg/actuation mist for inhalation (Combivent Respimat) ferrous sulfate 325 mg (65 mg 325 mg PO DAILY SUPPLEMENT 3 02/10/25 History iron) tablet furosemide 40 mg tablet (Lasix) 40 mg PO DAILY diuretic 12/25/22 0 02/10/25 History cholecalciferol (vitamin D3) 25 25 mcg PO SUTUTHSA vitamin 3 02/10/25 History mcg (1,000 unit) tablet omeprazole 20 mg capsule,delayed 20 mg PO DAILY reflux 11/04/2301/30 History release ezetimibe 10 mg tablet (Zetia) 10 mg PO DAILY 02/27/24 02/10/25 H istory prednisone 5 mg tablet 5 mg PO DAILY 02/27/24 01/23/25 Hi story Held on 01/17/25. Instructions: while on higher-dose prednisone albuterol sulfate 2.5 mg/3 mL 1.25 mg inhalation TID PRN (more content not included)... Normal [facility] PTH, INTACT [CCL]on 02-07-20 25 PTH, Intact 39 pg/mL Normal 15-65 [facility] Comment on above: Result Comment: [facility] [address] [place] [address] Brock Chavez III, M.D. [id number] Performed By: #### 2 72783 #### [facility],[address] [place] [address] 85281 URINE CREATININE AND PROTEIN RATIOon 02-05-2025 CREATININE UR 134.50 mg/dl Normal [facility] Comment on above: Performed By: #### 2 87950 #### [facility],[address] [place] [address] 06072 PC RATIO 0.63 mg/dL Normal 0.00 - 10.00 [facility] Comment on above: Performed By: #### 2 74332 #### [facility],[address] [place] [address] 48167 Protein (U) [Mass/Vol] 84.70 mg/dL High 0.00 - 10.00 [facility] Comment on above: Performed By: #### 2 00896 #### [facility],[address] [place] [address] 18604 BMP with eGFRon 02-04-2025 AGE [address] [facility] Comment on above: Performed By: #### 2 47344 #### [facility],[address] [place] [address] 48473 Anion gap [Moles/Vol] 15 mmol/L Normal 10 - 20 [facility] Comment on above: Performed By: #### 2 27925 #### [facility],[address] [place] [address] 95872 BMP with eGFR Normal [facility] Comment on above: Result Comment: BASI C METABOLIC PANEL Performed By: #### 2 61793 #### [facility],[address] [place] [address] 60950 Calcium [Mass/Vol] 8.8 mg/dL Normal 8.5 - 10.1 [facility] Comment on above: Performed By: #### 2 27265 #### [facility],[address] [place] [address] 45712 Chloride [Moles/Vol] 102 mmol/L Normal 98 - 107 [facility] Comment on above: Performed By: #### 2 88447 #### [facility],[address] [place], [place] [address] CO2 [Moles/Vol] 23.7 mmol/L Normal 21.0 - 32.0 [facility] Comment on above: Performed By: #### 2 32474 #### [facility],[address] [place] [address] Creatinine [Mass/Vol] 2.85 mg/dL High 0.55 - 1.02 [facility] Comment on above: Performed By: #### 2 90533 #### [facility],[address] [place] [address] eGFR 16 ML/MINUTE Low 60 - 999 [facility] Comment on above: Performed By: #### 2 01812 #### [facility],[address] [place] [address] eGFR(AA) 19 ML/MINUTE Low 60 - 999 [facility] Comment on above: Result Comment: ACCO RDING TO THE NATIONAL KIDNEY DISEASE EDUCATION PROGRAM(NKDE), A NORMAL eGFR IS A VALUE GREATER THAN OR EQUAL TO 60 ML/MIN/1.73 SQ METERS. CHRONIC KIDNEY DISEASE: <60mL/MIN/1.73 SQ METERS KIDNEY FAILURE: <15mL/MIN/1.73 SQ METERS THIS TEST SHOULD ONLY BE USED FOR PATIENTS 18 YEARS OF AGE AND OLDER. Performed By: #### 2 52276 #### [facility],[address] [place], [place] [address] Glucose [Mass/Vol] 145 mg/dL High 74 - 106 [facility] Comment on above: Performed By: #### 2 29421 #### [facility],[address] [place], [place] [address] Potassium [Moles/Vol] 4.5 mmol/L Normal 3.5 - 5.1 [facility] Comment on above: Performed By: #### 2 39711 #### [facility],[address] [place] [address] Sodium [Moles/Vol] 136 mmol/L Normal 136 - 145 [facility] Comment on above: Performed By: #### 2 16936 #### [facility],[address] [place] [address] Urea nitrogen [Mass/Vol] 42 mg/dL High 7 - 18 [facility] Comment on above: Performed By: #### 2 35249 #### [facility],[address] [place] [address] CBC + DIFFon 02-04-2025 Baso # 0.02 x10EE3/UL Normal 0.00 - 0.10 [facility] Comment on above: Performed By: #### 2 89562 #### [facility],[address] [place] [address] 99261 Basophils/100 WBC (Bld) 0.3 % Normal 0.0 - 2.0 [facility] Comment on above: Performed By: #### 2 74013 #### [facility],[address] [place] [address] CBC + DIFF Normal [facility] Comment on above: Result Comment: CBC- COMPLETE BLOOD COUNT Performed By: #### 2 35064 #### [facility],[address] [place] [address] EO # 0.24 x10EE3/UL Normal 0.00 - 0.50 [facility] Comment on above: Performed By: #### 2 13112 #### [facility],[address] [place] [address] 22470 Eosinophils/100 WBC (Bld) 2.5 % Normal 0.0 - 7.0 [facility] Comment on above: Performed By: #### 2 98864 #### [facility],[address] [place], [place] [address] Erythrocyte distribution width (RBC) [Ratio] 13.6 % Normal 12.0 - 15.6 [facility] Comment on above: Performed By: #### 2 32668 #### [facility],[address] [place] [address] 40303 Hematocrit (Bld) [Volume fraction] 31.7 % Low 34.0 - 46.0 [facility] Comment on above: Performed By: #### 2 87462 #### [facility],[address] [place] [address] 84174 Hemoglobin (Bld) [Mass/Vol] 10.8 g/dL Low 12.0 - 16.0 [facility] Comment on above: Performed By: #### 2 82055 #### [facility],[address] [place] [address] 92654 Lymph # 3.78 x10EE3/UL High 0.80 - 2.80 [facility] Comment on above: Performed By: #### 2 73795 #### [facility],[address] [place] [address] 28465 Lymphocytes/100 WBC (Bld) 40.3 % Normal 20.0 - 45.0 [facility] Comment on above: Performed By: #### 2 87514 #### [facility],[address] [place] [address] 50933 MANUAL DIFF N/A Normal [facility] Comment on above: Performed By: #### 2 08481 #### [facility],[address] [place] [address] 40170 MCH (RBC) [Entitic mass] 32 pg Normal 27 - 33 [facility] Comment on above: Performed By: #### 2 92483 #### [facility],[address] [place] [address] 68517 MCHC 34 X10 3 Normal 32 - 36 [facility] Comment on above: Performed By: #### 2 70677 #### [facility],[address] [place] [address] 65271 MCV (RBC) [Entitic vol] 95 fL Normal 80 - 99 [facility] Comment on above: Performed By: #### 2 12548 #### [facility],[address] [place] [address] 73764 Burnett # 0.83 x10EE3/UL Normal 0.20 - 1.00 [facility] Comment on above: Performed By: #### 2 05866 #### [facility],[address] [place] [address] 75511 MONOS % 8.9 % Normal 0.0 - 10.0 [facility] Comment on above: Performed By: #### 2 25151 #### [facility],[address] [place] [address] 18865 Morphology Hayden (Bld) [Interp] N/A Normal [facility] Comment on above: Performed By: #### 2 62194 #### [facility],[address] [place] [address] 17205 Neut # 4.50 x10EE3/UL Normal 1.50 - 7.10 [facility] Comment on above: Performed By: #### 2 20233 #### [facility],[address] [place] [address] 03205 Neutrophils/100 WBC (Bld) 48.0 % Normal 46.0 - 76.0 [facility] Comment on above: Performed By: #### 2 00682 #### [facility],[address] [place] [address] 88315 PLATELET 363 x10EE3/UL Normal 150 - 450 [facility] Comment on above: Performed By: #### 2 20967 #### [facility],[address] [place] [address] 75334 Platelet mean volume (Bld) [Entitic vol] 7.8 fL Normal 6.6 - 10.5 [facility] Comment on above: Result Comment: AUTO MATED DIFFERENTIAL Performed By: #### 2 12715 #### [facility],[address] [place] [address] 43038 RBC 3.34 x 10EE6/UL Low 4.10 - 5.30 [facility] Comment on above: Performed By: #### 2 39757 #### [facility],[address] [place] [address] 01428 WBC 9.4 x 10EE3/UL Normal 4.5 - 10.8 [facility] Comment on above: Performed By: #### 2 47535 #### [facility],[address] [place] [address] 69215 URIC ACIDon 02-04-2025 Urate [Mass/Vol] 6.0 mg/dL Normal 2.6 - 6.0 [facility] Comment on above: Performed By: #### 2 89502 #### [facility],[address] [place] [address] 67977 VITAMIN D, 25 HYDROXYon 01-08 VitD 47.30 ng/mL Normal 30.00 - 100 [facility] Comment on above: Result Comment: 25-O HD3 indicates both endogenous production and supplementation. 25-OHD2 is an indicator of exogenous sources, such as diet or supplementation. Therapy is based on measurement of Total 25-OHD, with levels <20 ng/mL indicative of Vitamin D deficiency, while levels between 20 ng/mL and 30 ng/mL suggest insufficiency. Optimal levels are >=30ng/mL. Vitamin D, 25-OH D3 Not Established Vitamin D, 25-OH D2 Not Established Performed By: #### 2 01150 #### [facility],[address] [place] [address] 03053 Emergency Department Summary on 01-27-2025 Emergency Department Summary [facility] Medical Records Department [address] [place] [address] Emergency Department Summary 01/27/25 MR#: [id number] Acct: [id number] Name: ADELA WELLS Rep #: [id number] : 1945 79 From: Alfonso Padilla DO PCP: Dr. Carlo Diaz MD Status:DEP ER Location: ED HPI History of Present Illness Chief Complaint: Constipation Informant: patient Onset/Context/Timing Onset: Hours Context: Gradual Onset Timing: Continuous Quality: Burning Location: Rectum Worsened by: Sitting Relieved by: Nothing Narrative Narrative: Patient presents with constipation that became worse today. Patient states she has not had a bowel movement in the last 3 days. Patient states she feels pressure and burning over her rectal area. Patient states it is worse with sitting. Patient states nothing seems to help with it. Patient states she has tried [id number] laxatives with no improvement. Patient denies any nausea or vomiting. Patient states she is also having difficulty urinating because of the constipation. Patient denies any fevers or chills. Patient denies any chest pain or shortness of breath. [facility] Medical History Incarcerated ventral hernia Chest pain Elevated troponin Urinary tract infection Elevated lactic acid level Weakness generalized Incarcerated hernia of abdominal cavity CHF (congestive heart failure) Anemia NSTEMI (non-ST elevated myocardial infarction) Cardiomyopathy COVID-19 ( 04/2022) Insect bite History of non-ST elevation myocardial infarction (NSTEMI) (01/26/21) COPD (chronic obstructive pulmonary disease) Morbid obesity TIA (transient ischemic attack) Arm paresthesia, right CKD (chronic kidney disease) Atherosclerotic heart disease of teller coronary artery without angina 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 Obesity Atherosclerosis of coronary artery bypass graft without angina pectoris Essential hypertension Type 2 diabetes mellitus without complication Vertigo GERD (gastroesophageal reflux disease) Asthma Hyperlipidemia Hypothyroidism Home Medications ???Medication ???Instructions ???Recorded ???Last Taken ???Type montelukast 10 mg tablet 10 mg PO DAILY PRN ASTHMA 12/17/13 11/13/24 History aspirin 81 mg tablet,delayed 81 mg PO DAILY HEART HEALTH 01/22/25 History release cetirizine 10 mg tablet (Zyrtec) 10 mg PO DAILY PRN allergies 02/1406/09/24 History allopurinol 100 mg tablet 100 mg PO DAILY GOUT 11/22/2101/06 History ipratropium 20 mcg-albuterol 100 1 puff inhalation Q6H PRN BREATHIN G 09/20/22 11/13/24 History mcg/actuation mist for inhalation (Combivent Respimat) ferrous sulfate 325 mg (65 mg 325 mg PO DAILY SUPPLEMENT 3 01/22/25 History iron) tablet furosemide 40 mg tablet (Lasix) 40 mg PO DAILY diuretic 12/25/22 0 01/22/25 History cholecalciferol (vitamin D3) 25 25 mcg PO SUTUTHSA vitamin 3 01/22/25 History mcg (1,000 unit) tablet omeprazole 20 mg capsule,delayed 20 mg PO DAILY reflux 11/04/23 History release ezetimibe 10 mg tablet (Zetia) 10 mg PO DAILY 02/27/24 01/22/25 H istory prednisone 5 mg tablet 5 mg PO DAILY 02/27/24 11/13/24 Hi story Held on 01/17/25. Instructions: while on higher-dose prednisone albuterol sulfate 2.5 mg/3 mL 1.25 mg inhalation TID PRN 4 11/15/24 History (0.083 %) solution for nebulization shortness of breath or wheezing ipratropium bromide 0.02 % 0.5 mg inhalation TID PRN 05/09/24 11/13/24 History solution for inhalation shortness of breath or wheezing biotin 10,000 mcg capsule 10,000 mcg PO DAILY 06/10/2401/22 History folic acid 1 mg tablet 1 mg PO DAILY 06/10/24 01/22/25 Hi story glipizide 2.5 mg tablet, extended 2.5 mg PO BID 06/10/24 01/22/25 H istory release 24 hr amlodipine 5 mg tablet 5 mg PO DAILY 08/25/24 01/22/25 Hi story spironolactone 25 mg tablet 25 mg PO DAILY HEART 08/25/2401/06 History levothyroxine 100 mcg tablet 100 mcg PO DAILY 11/15/24 01/22/25 History metoprolol tartrate 50 mg tablet 50 mg PO DAILY 11/15/24 01/22/25 H istory prednisone 20 mg tablet 40 mg (2 x 20 mg) PO DAILY 4 days 01/17/25 01/22/25 Rx #8 tabs sulfamethoxazole 800 1 tab PO DAILY 01/23/25 01/22/25 H istory mg-trimethoprim 160 mg tablet Allergy/AdvReac Type Severity Reaction Status Date / Time Anesthetics - Amide Type - Allergy Other Verified 01/23/25 12:18 Select A (Anesthetics - Amide Type) acetaminophen (From Tylenol) AdvReac Severe Other Verified 01/23/25 12:18 pravastatin AdvReac Intermediate Myalgias Verified 01/23/25 12:18 after 15 years of taking cinnamon AdvReac Unknown Unk (more content not included)... Normal [facility] 12 Lead EKGon 01-23-2025 12 Lead EKG [facility] Cardi[facility] [address] [place] [address] 12 Lead EKG 01/23/25 1230 MR#: [id number] Acct: [id number] Name: ADELA WELLS Rep #: [id number] : 1945 79 From: Lasha Win MD Attending Dr: Status: DEP ER Ordering Dr: Brian Gray DO Date: 01/23/25 Location: ED Sex: F C Admitted: Test Reason : CP Blood Pressure : */* mmHG Vent. Rate : 87 BPM Atrial Rate : 87 BPM P-R Int : 158 ms QRS Dur : 102 ms QT Int : 378 ms P-R-T Axes : 41 42 104 degrees QTcB Int : 454 ms Normal sinus rhythm ST T wave abnormality, consider lateral ischemia Abnormal ECG Confirmed by LASHA WIN MD ([id number]), film editor NIRAV DICKSON ([id number]) on 01/24/2025 9:26:44 AM Referred By: Confirmed By: LASHA WIN MD 01/24/25 09 Date Lasah Win MD CC: Dr. Carlo Diaz MD; Dr. Brian Gray DO Signed Normal [facility] Absolute lymphocyte countOrd ered By: Brian Gray on 01-23-2025 Lymphocytes Auto (Unsp spec) [#/Vol] 0.78 10*3/uL Low 0.83-4.51 [facility] Absolute neutrophil countOrd ered By: Brian Gray on 01-23-2025 Neutrophils (Bld) [#/Vol] 5.1 10*3/uL 2.0-7.7 [facility] Anion gap in Serum or Plasma Ordered By: Brian Gray on 01-23-2025 Anion gap [Moles/Vol] 14 mmol/L 5-15 [facility] Automated lymphocyte count a s percentage of total leukocytesOrdered By: Brian Gray on 01-23-2025 Lymphocytes/100 WBC Auto (Unsp spec) 12.8 % Low 19-41 [facility] BUN/creatinine ratioOrdered By: Brian Gray on 01-23-2025 Urea nitrogen/Creatinine [Mass ratio] 19.4 mg/mg 10- [facility] Basic Metabolic Profile (BMP )on 01-23-2025 BUN/CRE 19.4 RATIO Normal - [facility] Comment on above: Performed By: #### L 100.0100, L501.5200, L501.4020, L500.2500 #### [facility] [address] [place], [address] Calcium [Mass/Vol] 9.5 mg/dL Normal 7.6-11.0 [facility] Comment on above: Performed By: #### L 100.0100, L501.5200, L501.4020, L500.2500 #### [facility] [address] [place], [address] Chloride [Moles/Vol] 99 mmol/L Normal 98-108 [facility] Comment on above: Performed By: #### L 100.0100, L501.5200, L501.4020, L500.2500 #### [facility] [address] [place], [address] CO2 [Moles/Vol] 18.5 mmol/L Low 21.0-32.0 [facility] Comment on above: Performed By: #### L 100.0100, L501.5200, L501.4020, L500.2500 #### [facility] [address] [place], [address] Creatinine [Mass/Vol] 2.73 mg/dL High 0.70-1.20 [facility] Comment on above: Performed By: #### L 100.0100, L501.5200, L501.4020, L500.2500 #### [facility] [address] [place], [address] GAP 14 Normal 5-15 [facility] Comment on above: Performed By: #### L 100.0100, L501.5200, L501.4020, L500.2500 #### [facility] [address] [place], [address] GFR/1.73 sq M.predicted among non-blacks MDRD (S/P/Bld) [Vol rate/Area] 17 mL/min/{1.73_m2} Low >60 [facility] Comment on above: Result Comment: mL/m in/1.73m2 CKD-EPI Creatinine Equation (2020) Performed By: #### L 100.0100, L501.5200, L501.4020, L500.2500 #### [facility] [address] [place], [address] Glucose [Mass/Vol] 247 mg/dL High 70-99 [facility] Comment on above: Performed By: #### L 100.0100, L501.5200, L501.4020, L500.2500 #### [facility] [address] [place], [address] Potassium [Moles/Vol] 5.8 mmol/L High 3.3-5.1 [facility] Comment on above: Performed By: #### L 100.0100, L501.5200, L501.4020, L500.2500 #### [facility] [address] [place], [address] Sodium [Moles/Vol] 131 mmol/L Low 133-145 [facility] Comment on above: Performed By: #### L 100.0100, L501.5200, L501.4020, L500.2500 #### [facility] [address] [place], [address] Urea nitrogen [Mass/Vol] 53 mg/dL High 4-19 [facility] Comment on above: Performed By: #### L 100.0100, L501.5200, L501.4020, L500.2500 #### [facility] [address] [place], [address] Basophil percentageOrdered B y: Brian Gray on 01-23-2024 Basophils/100 WBC (Bld) 0.3 % 0-1 [facility] CBC W/Diff, Automatedon 01-06 Absolute Lymph 0.78 X10 3/uL Low 0.83-4.51 [facility] Comment on above: Performed By: #### L 100.0100, L501.5200, L501.4020, L500.2500 #### [facility] [address] [place], [address] Absolute Neut 5.1 X10 3/uL Normal 2.0-7.7 [facility] Comment on above: Performed By: #### L 100.0100, L501.5200, L501.4020, L500.2500 #### [facility] [address] [place], [address] Basophils/100 WBC (Bld) 0.3 % Normal 0-1 [facility] Comment on above: Performed By: #### L 100.0100, L501.5200, L501.4020, L500.2500 #### [facility] [address] [place], [address] Eosinophils/100 WBC (Bld) 0.0 % Normal 0-5 [facility] Comment on above: Performed By: #### L 100.0100, L501.5200, L501.4020, L500.2500 #### [facility] [address] [place], [address] Erythrocyte distribution width (RBC) [Ratio] 14.1 % Normal 11.6-14.6 [facility] Comment on above: Performed By: #### L 100.0100, L501.5200, L501.4020, L500.2500 #### [facility] [address] [place], [address] Hematocrit (Bld) [Volume fraction] 32.8 % Low 37-47 [facility] Comment on above: Performed By: #### L 100.0100, L501.5200, L501.4020, L500.2500 #### [facility] [address] [place], [address] Hemoglobin (Bld) [Mass/Vol] 10.7 g/dL Low 12.0-15.0 [facility] Comment on above: Performed By: #### L 100.0100, L501.5200, L501.4020, L500.2500 #### [facility] [address] [place], [address] IG% 0.700 Normal 0.0-0.9 [facility] Comment on above: Result Comment: IG% - Immature Granulocytes (promyelocytes, myelocytes and metamyelocytes) > 1% indicates that a LEFT SHIFT is Present. Performed By: #### L 100.0100, L501.5200, L501.4020, L500.2500 #### [facility] [address] [place], [address] Lymphocytes/100 WBC (Bld) 12.8 % Low 19-41 [facility] Comment on above: Performed By: #### L 100.0100, L501.5200, L501.4020, L500.2500 #### [facility] [address] [place], [address] MCH (RBC) [Entitic mass] 30.8 pg Normal 27.0-32.0 [facility] Comment on above: Performed By: #### L 100.0100, L501.5200, L501.4020, L500.2500 #### [facility] [address] [place], [address] MCHC (RBC) [Mass/Vol] 32.6 g/dL Normal 32-36 [facility] Comment on above: Performed By: #### L 100.0100, L501.5200, L501.4020, L500.2500 #### [facility] [address] [place], [address] MCV (RBC) [Entitic vol] 94.5 fL Normal 81-99 [facility] Comment on above: Performed By: #### L 100.0100, L501.5200, L501.4020, L500.2500 #### [facility] [address] [place], [address] Monocytes/100 WBC (Bld) 2.8 % Normal 0-10 [facility] Comment on above: Performed By: #### L 100.0100, L501.5200, L501.4020, L500.2500 #### [facility] [address] [place], [address] Neutrophils/100 WBC (Bld) 83.4 % High 47-70 [facility] Comment on above: Performed By: #### L 100.0100, L501.5200, L501.4020, L500.2500 #### [facility] [address] [place], [address] Nucleated RBC (Bld) [#/Vol] 0 10*3/uL Normal 0-5 [facility] Comment on above: Performed By: #### L 100.0100, L501.5200, L501.4020, L500.2500 #### [facility] [address] [place], [address] Platelet mean volume (Bld) [Entitic vol] 10.3 fL Normal 6.2-12.0 [facility] Comment on above: Performed By: #### L 100.0100, L501.5200, L501.4020, L500.2500 #### [facility] [address] [place], [address] Platelets (Bld) [#/Vol] 316 10*3/uL Normal 150-450 [facility] Comment on above: Performed By: #### L 100.0100, L501.5200, L501.4020, L500.2500 #### [facility] [address] [place], [address] RBC (Bld) [#/Vol] 3.47 10*6/uL Low 4.2-5.4 [facility] Comment on above: Performed By: #### L 100.0100, L501.5200, L501.4020, L500.2500 #### [facility] [address] [place], [address] RDW SD 48.2 fl High 35.1-43.9 [facility] Comment on above: Performed By: #### L 100.0100, L501.5200, L501.4020, L500.2500 #### [facility] [address] [place], [address] WBC (Bld) [#/Vol] 6.1 10*3/uL Normal 4.4-11.0 [facility] Comment on above: Performed By: #### L 100.0100, L501.5200, L501.4020, L500.2500 #### [facility] [address] [place], [address] Carbon dioxide, total [Moles /volume] in Central venous bloodOrdered By: Brian Gray on 01-23-2025 CO2 [Moles/Vol] 18.5 mmol/L Low 21.0-32.0 [facility] Chest PA and Lateralon 01-23 Chest PA and Lateral [facility] Imaging Services [address] [place] [address] Chest PA and Lateral MR#: [id number] Acct: [id number] Name: ADELA WELLS Rep #: [id number] : 1945 F 79 From: Manuel Tyler MD PCP: Dr. Carlo Diaz MD Status: REG ER Study: Chest PA and Lateral Date of Exam: 01/23/25 Exam# [id number] Ordering Dr: Brian Gray DO EXAM: XR Chest, 2 Views CLINICAL INDICATION: CHEST PAIN TECHNIQUE: Frontal and lateral views of the chest. COMPARISON: XR Chest dated 01/17/2025 FINDINGS: LUNGS AND PLEURAL SPACES: Unremarkable. No consolidation. No pneumothorax. HEART: Unremarkable. No cardiomegaly. MEDIASTINUM: Unremarkable. Normal mediastinal contour. BONES/JOINTS: Unremarkable. No acute fracture. RAD/Chest PA and Lateral IMPRESSION: No acute cardiopulmonary process. Reading Location: [facility] CC: Dr. Carlo Diaz MD; Dr. Brian Gray DO [employer] Central Office: Signed Normal [facility] Chloride assayOrdered By: Juanjose Gray on 01-23-2025 Chloride [Moles/Vol] 99 mmol/L 98-108 [facility] Emergency Department Summary on 01-23-2025 Emergency Department Summary [facility] Medical Records Department [address] [place] [address] Emergency Department Summary 01/23/25 MR#: [id number] Acct: [id number] Name: ADELA WELLS Rep #: [id number] : 1945 79 From: Brian Gray DO PCP: Dr. Carlo Diaz MD Status:REG ER Location: ED HPI History of Present Illness Chief Complaint: Chest Pain Narrative Narrative: Patient is a 79-year-old female with past medical history of CAD with stents and bypass surgery, COPD, TIA, chronic kidney disease, hypertension, type 2 diabetes, hypothyroidism who presented to the emergency department the chief complaint of chest pain. Patient states that around 11 AM she developed chest pain she states that she was sleeping when this occurred. Patient states that she has not had a stress test in approximately 2 years since her last stent placed. Patient denies any blood thinner medications. Patient states that otherwise she has been feeling well and has no other complaints. She states that by the time she arrived here she has no pain and did not take any medications to relieve her symptoms. [facility] Medical History Incarcerated ventral hernia Chest pain Elevated troponin Urinary tract infection Elevated lactic acid level Weakness generalized Incarcerated hernia of abdominal cavity CHF (congestive heart failure) Anemia NSTEMI (non-ST elevated myocardial infarction) Cardiomyopathy COVID-19 ( 04/2022) Insect bite History of non-ST elevation myocardial infarction (NSTEMI) (01/26/21) COPD (chronic obstructive pulmonary disease) Morbid obesity TIA (transient ischemic attack) Arm paresthesia, right CKD (chronic kidney disease) Atherosclerotic heart disease of teller coronary artery without angina 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 Obesity Atherosclerosis of coronary artery bypass graft without angina pectoris Essential hypertension Type 2 diabetes mellitus without complication Vertigo GERD (gastroesophageal reflux disease) Asthma Hyperlipidemia Hypothyroidism Home Medications ???Medication ???Instructions ???Recorded ???Last Taken ???Type montelukast 10 mg tablet 10 mg PO DAILY PRN ASTHMA 12/17/13 11/13/24 History aspirin 81 mg tablet,delayed 81 mg PO DAILY HEART HEALTH 01/22/25 History release cetirizine 10 mg tablet (Zyrtec) 10 mg PO DAILY PRN allergies 02/1406/09/24 History allopurinol 100 mg tablet 100 mg PO DAILY GOUT 11/22/2101/06 History ipratropium 20 mcg-albuterol 100 1 puff inhalation Q6H PRN BREATHIN G 09/20/22 11/13/24 History mcg/actuation mist for inhalation (Combivent Respimat) ferrous sulfate 325 mg (65 mg 325 mg PO DAILY SUPPLEMENT 3 01/22/25 History iron) tablet furosemide 40 mg tablet (Lasix) 40 mg PO DAILY diuretic 12/25/22 0 01/22/25 History cholecalciferol (vitamin D3) 25 25 mcg PO SUTUTHSA vitamin 3 01/22/25 History mcg (1,000 unit) tablet omeprazole 20 mg capsule,delayed 20 mg PO DAILY reflux 11/04/23 History release ezetimibe 10 mg tablet (Zetia) 10 mg PO DAILY 02/27/24 01/22/25 H istory prednisone 5 mg tablet 5 mg PO DAILY 02/27/24 11/13/24 Hi story Held on 01/17/25. Instructions: while on higher-dose prednisone albuterol sulfate 2.5 mg/3 mL 1.25 mg inhalation TID PRN 4 11/15/24 History (0.083 %) solution for nebulization shortness of breath or wheezing ipratropium bromide 0.02 % 0.5 mg inhalation TID PRN 05/09/24 11/13/24 History solution for inhalation shortness of breath or wheezing biotin 10,000 mcg capsule 10,000 mcg PO DAILY 06/10/2401/22 History folic acid 1 mg tablet 1 mg PO DAILY 06/10/24 01/22/25 Hi story glipizide 2.5 mg tablet, extended 2.5 mg PO BID 06/10/24 01/22/25 H istory release 24 hr amlodipine 5 mg tablet 5 mg PO DAILY 08/25/24 01/22/25 Hi story spironolactone 25 mg tablet 25 mg PO DAILY HEART 08/25/2401/06 History levothyroxine 100 mcg tablet 100 mcg PO DAILY 11/15/24 01/22/25 History metoprolol tartrate 50 mg tablet 50 mg PO DAILY 11/15/24 01/22/25 H istory prednisone 20 mg tablet 40 mg (2 x 20 mg) PO DAILY 4 days 01/17/25 01/22/25 Rx #8 tabs sulfamethoxazole 800 1 tab PO DAILY 01/23/25 01/22/25 H istory mg-trimethoprim 160 mg tablet Allergy/AdvReac Type Severity Reaction Status Date / Time Anesthetics - Amide Type - Allergy Other Verified 01/23/25 12:18 Select A (Anesthetics - Amide Type) acetaminophen (From Tylenol) AdvReac Severe Other Verified 01/23/25 12:18 pravastatin AdvReac Intermediate Myalgias Verified 01/23/25 12:18 after 15 years of taking cinnamon AdvReac Unknown Unknown Verified 01/23/25 12:18 Penicillin (more content not included)... Normal [facility] Eosinophil percentageOrdered By: Brian Gray on 01-23-2025 Eosinophils/100 WBC (Bld) 0.0 % 0-5 [facility] Erythrocyte distribution wid th ratioOrdered By: Brian Gray on 01-23-2025 Erythrocyte distribution width (RBC) [Ratio] 14.1 % 11.6-14.6 [facility] Erythrocyte distribution wid th standard deviationOrdered By: Brian Gray on 01-23-2025 Erythrocyte distribution width (RBC) [Ratio] 48.2 fl High 35.1-43.9 [facility] FERRITIN [CCL]on 01-23-2025 Ferritin [Mass/Vol] 334.0 ng/mL High 14.7-205.1 [facility] Comment on above: Result Comment: [place] [address] Brock Chavez III, M.D. [id number] Performed By: #### 2 [id number] #### [facility],[address] [place] [address] Glomerular filtration rate ( GFR) estimation/1.73 sq m using serum, plasma, or whole bOrdered By: Brian Gray on 01-23-2025 GFR/1.73 sq M.predicted among non-blacks MDRD (S/P/Bld) [Vol rate/Area] 17 mL/min/{1.73_m2} Low >60 [facility] Comment on above: mL/min/1.73m2 CKD-EP I Creatinine Equation (2020) Hematocrit Auto (Bld) [Volum e fraction]Ordered By: Brian Gray on 01-23-2025 Hematocrit (Bld) [Volume fraction] 32.8 % Low 37-47 [facility] Hemoglobin measurementOrdere d By: Brian Gray on 01-23-2025 Hemoglobin (Bld) [Mass/Vol] 10.7 g/dL Low 12.0-15.0 [facility] Immature granulocytes/100 WB C Auto (Bld)Ordered By: Brian Gray on 01-23-2025 Immature granulocytes/100 WBC (Bld) 0.700 % 0.0-0.9 [facility] Comment on above: IG% - Immature Granu locytes (promyelocytes, myelocytes and metamyelocytes) > 1% indicates that a LEFT SHIFT is Present. L499.0042on 01-23-2025 Trop T High Sen 37 ng/L High <=14 [facility] Comment on above: Result Comment: Hemo lysis present, Results??could be affected. ?? Performed By: #### L 100.0100, L501.5200, L501.4020, L500.2500 #### [facility] [address] [place], [address] L499.0043on 01-23-2025 Trop T High Sen Normal <=14 [facility] Comment on above: Result Comment: DEP ED Performed By: #### L 499.0043 #### [facility] [address] [place], [address] L501.4021on 01-23-2025 Trop T High Sen 45 ng/L High <=14 [facility] Comment on above: Performed By: #### L 100.0100, L501.5200, L501.4020, L500.2500 #### [facility] [address] [place], [address] L503.7505on 01-23-2025 Natriuretic peptide B (Bld) [Mass/Vol] 7161 pg/mL High <=1800 [facility] Comment on above: Result Comment: Hear t Failure Unlikely: < 300 pg/mL Heart Failure Likely < 50 Years: > 450 pg/mL 50-75 Years: > 900 pg/mL >75 Years: > 1800 pg/mL Performed By: #### L 100.0100, L501.5200, L501.4020, L500.2500 #### [facility] [address] [place], [address] MCV (mean corpuscular volume ) determinationOrdered By: Brian Gray on 01-23-2025 MCV (RBC) [Entitic vol] 94.5 fL 81-99 [facility] Mean corpuscular hemoglobin (MCH) determinationOrdered By: Brian Gray on 01-23-2025 MCH (RBC) [Entitic mass] 30.8 pg 27.0-32.0 [facility] Mean corpuscular hemoglobin concentration (MCHC) determinationOrdered By: Brian Gray on 01-23-2025 MCHC (RBC) [Mass/Vol] 32.6 g/dL 32-36 [facility] Mean platelet volume determi nationOrdered By: Brian Gray on 01-23-2025 Platelet mean volume (Bld) [Entitic vol] 10.3 fL 6.2-12.0 [facility] Monocyte percentageOrdered B y: Brian Gray on 01-23-2025 Monocytes/100 WBC (Bld) 2.8 % 0-10 [facility] Natriuretic peptide.B prohor alverto N-Terminal [Mass/volume] in Serum or PlasmaOrdered By: Brian Gray on 01-23-2025 Natriuretic peptide.B prohormone N-Terminal [Mass/Vol] 7161 pg/mL High <1800 [facility] Comment on above: Heart Failure Unlike ly: < 300 pg/mLHeart Failure Likely< 50 Years: > 450 pg/mL50-75 Years: > 900 pg/mL>75 Years: > 1800 pg/mL Neutrophil percentageOrdered By: Brian Gray on 01-23-2025 Neutrophils/100 WBC (Bld) 83.4 % High 47-70 [facility] Nucleated red blood cell per centageOrdered By: Brian Gray on 01-23-2025 Nucleated RBC/100 WBC (Bld) [Ratio] 0 % 0-5 [facility] Platelet countOrdered By: Juanjose Gray on 01-23-2025 Platelets (Bld) [#/Vol] 316 10*3/uL 150-450 [facility] Potassium measurement (mass/ volume)Ordered By: Brian Gray on 01-23-2025 Potassium (Unsp spec) [Mass/Vol] 5.8 mmol/L High 3.3-5.1 [facility] RBC Auto (Bld) [#/Vol]Ordere d By: Brian Gray on 01-23-2025 RBC (Bld) [#/Vol] 3.47 10*6/uL Low 4.2-5.4 [facility] Serum creatinine measurement (mass/volume)Ordered By: Brian Gray on 01-23-2025 Creatinine [Mass/Vol] 2.73 mg/dL High 0.70-1.20 [facility] Serum glucose measurement (m ass/volume)Ordered By: Brian Gray on 01-23-2025 Glucose [Mass/Vol] 247 mg/dL High 70-99 [facility] Serum or plasma calcium beth urement (mass/volume)Ordered By: Brian Gray on 01-23-2025 Calcium [Mass/Vol] 9.5 mg/dL 7.6-11.0 [facility] Serum or plasma urea nitroge n measurement (mass/volume)Ordered By: Brian Gray on 01-23-2025 Urea nitrogen [Mass/Vol] 53 mg/dL High 4-19 [facility] Sodium levelOrdered By: Rosalva Gray on 01-23-2025 Sodium [Moles/Vol] 131 mmol/L Low 133-145 [facility] Troponin T.cardiac [Mass/vol ume] in Serum or Plasma by High sensitivity methodOrdered By: Brian Gray on 01-23-2025 Troponin T.cardiac High sensitivity method [Mass/Vol] 37 ng/L High <14 [facility] Comment on above: Hemolysis present, R esults could be affected. Troponin T.cardiac High sensitivity method [Mass/Vol] 45 ng/L High <14 [facility] Comment on above: Delta: 56 on 5-1816 White blood cell (WBC) count Ordered By: Brian Gray on 01-23-2025 WBC (Bld) [#/Vol] 6.1 10*3/uL 4.4-11.0 [facility] CBC + DIFFon 01-22-2025 Baso # 0.03 x10EE3/UL Normal 0.00 - 0.10 [facility] Comment on above: Performed By: #### 2 [id number] #### [facility],[address] [place] [address] Basophils/100 WBC (Bld) 0.4 % Normal 0.0 - 2.0 [facility] Comment on above: Performed By: #### 2 80836 #### [facility],[address] [place] [address] CBC + DIFF Normal [facility] Comment on above: Result Comment: CBC- COMPLETE BLOOD COUNT Performed By: #### 2 07456 #### [facility],[address] [place] [address] EO # 0.28 x10EE3/UL Normal 0.00 - 0.50 [facility] Comment on above: Performed By: #### 2 12443 #### [facility],[address] [place] [address] Eosinophils/100 WBC (Bld) 3.2 % Normal 0.0 - 7.0 [facility] Comment on above: Performed By: #### 2 18553 #### [facility],[address] [place] [address] Erythrocyte distribution width (RBC) [Ratio] 13.8 % Normal 12.0 - 15.6 [facility] Comment on above: Performed By: #### 2 89517 #### [facility],[address] [place] [address] Hematocrit (Bld) [Volume fraction] 31.5 % Low 34.0 - 46.0 [facility] Comment on above: Performed By: #### 2 21190 #### [facility],[address] [place] [address] Hemoglobin (Bld) [Mass/Vol] 10.5 g/dL Low 12.0 - 16.0 [facility] Comment on above: Performed By: #### 2 01612 #### [facility],[address] [place] [address] Lymph # 4.67 x10EE3/UL High 0.80 - 2.80 [facility] Comment on above: Performed By: #### 2 47609 #### [place] [address] Lymphocytes/100 WBC (Bld) 53.0 % High 20.0 - 45.0 [facility] Comment on above: Performed By: #### 2 83273 #### [facility],[address] [place] [address] MANUAL DIFF N/A Normal [facility] Comment on above: Performed By: #### 2 47862 #### [place] [address] MCH (RBC) [Entitic mass] 32 pg Normal 27 - 33 [facility] Comment on above: Performed By: #### 2 66299 #### [place] [address] MCHC 33 X10 3 Normal 32 - 36 [facility] Comment on above: Performed By: #### 2 32764 #### [place] [address] MCV (RBC) [Entitic vol] 95 fL Normal 80 - 99 [facility] Comment on above: Performed By: #### 2 81409 #### [place] [address] Burnett # 0.59 x10EE3/UL Normal 0.20 - 1.00 [facility] Comment on above: Performed By: #### 2 29437 #### [place] [address] MONOS % 6.7 % Normal 0.0 - 10.0 [facility] Comment on above: Performed By: #### 2 71197 #### [place] [address] Morphology Hayden (Bld) [Interp] N/A Normal [facility] Comment on above: Performed By: #### 2 80539 #### [facility],[address] [place] [address] Neut # 3.23 x10EE3/UL Normal 1.50 - 7.10 [facility] Comment on above: Performed By: #### 2 71210 #### [facility],[address] [place] [address] Neutrophils/100 WBC (Bld) 36.7 % Low 46.0 - 76.0 [facility] Comment on above: Performed By: #### 2 01076 #### [facility],[address] [place] [address] PLATELET 346 x10EE3/UL Normal 150 - 450 [facility] Comment on above: Performed By: #### 2 51860 #### [facility],[address] [place] [address] Platelet mean volume (Bld) [Entitic vol] 8.4 fL Normal 6.6 - 10.5 [facility] Comment on above: Result Comment: AUTO MATED DIFFERENTIAL Performed By: #### 2 [id number] #### [facility],[address] [place] [address] RBC 3.32 x 10EE6/UL Low 4.10 - 5.30 [facility] Comment on above: Performed By: #### 2 11525 #### [facility],[address] [place], [place] [address] WBC 8.8 x 10EE3/UL Normal 4.5 - 10.8 [facility] Comment on above: Performed By: #### 2 03989 #### [place] [address] CMP with eGFRon 01-22-[address]GE [address] [facility] Comment on above: Performed By: #### 2 93685 #### [facility],[address] [place] [address] Albumin [Mass/Vol] 3.4 g/dL Normal 3.4 - 5.0 [facility] Comment on above: Performed By: #### 2 84395 #### [facility],[address] [place] [address] Albumin/Globulin [Mass ratio] 1.1 {ratio} Normal 0.9 - 1.6 [facility] Comment on above: Performed By: #### 2 76702 #### [facility],[address] [place] [address] ALK PHOS 96 U/L Normal 46 - 116 [facility] Comment on above: Performed By: #### 2 50512 #### [facility],[address] [place], [place] [id number] ALT [Catalytic activity/Vol] 20 U/L Normal 16 - 63 [facility] Comment on above: Performed By: #### 2 06233 #### [facility],[address] [place], [place] [id number] Anion gap [Moles/Vol] 13 mmol/L Normal 10 - 20 [facility] Comment on above: Performed By: #### 2 32326 #### [facility],[address] [place], [place] [id number] AST [Catalytic activity/Vol] 19 U/L Normal 13 - 39 [facility] Comment on above: Performed By: #### 2 97606 #### [facility],[address] [place] [address] 23806 B/C RATIO 22 ratio Normal 0 - 30 [facility] Comment on above: Performed By: #### 2 70486 #### [facility],[address] [place] [address] 82780 Bilirubin [Mass/Vol] 0.2 mg/dL Normal 0.2 - 1.0 [facility] Comment on above: Performed By: #### 2 01085 #### [facility],[address] [place] [address] 39377 Calcium [Mass/Vol] 9.2 mg/dL Normal 8.5 - 10.1 [facility] Comment on above: Performed By: #### 2 47030 #### [facility],[address] [place] [address] Chloride [Moles/Vol] 102 mmol/L Normal 98 - 107 [facility] Comment on above: Performed By: #### 2 19889 #### [facility],[address] [place] [address] CMP with eGFR Normal [facility] Comment on above: Result Comment: COMP REHENSIVE METABOLIC PANEL Performed By: #### 2 02067 #### [facility],[address] [place] [address] CO2 [Moles/Vol] 23.0 mmol/L Normal 21.0 - 32.0 [facility] Comment on above: Performed By: #### 2 96356 #### [facility],[address] [place] [address] Creatinine [Mass/Vol] 2.65 mg/dL High 0.55 - 1.02 [facility] Comment on above: Performed By: #### 2 73636 #### [facility],[address] [place] [address] eGFR 17 ML/MINUTE Low 60 - 999 [facility] Comment on above: Performed By: #### 2 28816 #### [facility],[address] [place] [address] eGFR(AA) 21 ML/MINUTE Low 60 - 999 [facility] Comment on above: Result Comment: ACCO RDING TO THE NATIONAL KIDNEY DISEASE EDUCATION PROGRAM(NKDE), A NORMAL eGFR IS A VALUE GREATER THAN OR EQUAL TO 60 ML/MIN/1.73 SQ METERS. CHRONIC KIDNEY DISEASE: <60mL/MIN/1.73 SQ METERS KIDNEY FAILURE: <15mL/MIN/1.73 SQ METERS THIS TEST SHOULD ONLY BE USED FOR PATIENTS 18 YEARS OF AGE AND OLDER. Performed By: #### 2 50431 #### [facility],[address] [place] [address] 17700 Globulin (S) [Mass/Vol] 3.2 g/dL Normal 1.5 - 3.8 [facility] Comment on above: Performed By: #### 2 57970 #### [facility],[address] [place] [address] 06181 Glucose [Mass/Vol] 98 mg/dL Normal 74 - 106 [facility] Comment on above: Performed By: #### 2 23260 #### [facility],[address] [place] [address] 89659 Potassium [Moles/Vol] 5.1 mmol/L Normal 3.5 - 5.1 [facility] Comment on above: Performed By: #### 2 49677 #### [facility],[address] [place] [address] 89144 Protein [Mass/Vol] 6.6 g/dL Normal 6.4 - 8.2 [facility] Comment on above: Performed By: #### 2 36127 #### [facility],[address] [place] [address] 70687 Sodium [Moles/Vol] 133 mmol/L Low 136 - 145 [facility] Comment on above: Performed By: #### 2 51472 #### [facility],[address] [place] [address] 31683 Urea nitrogen [Mass/Vol] 58 mg/dL High 7 - 18 [facility] Comment on above: Performed By: #### 2 52154 #### [facility],[address] [place] [address] 12682 FOLATESon 01-22-2025 FOLATES 17.4 ng/ml Normal 8.6 - 58.9 [facility] Comment on above: Performed By: #### 2 38530 #### [facility],[address] [place] [address] 93049 HEMOGLOBIN A1C (POM)on 01-22 Glucose [Mass/Vol] 128.4 mg/dL High 0.0 - 0.0 [facility] Comment on above: Result Comment: BLDo HEMOGLOBIN A1C REFERENCE RANGESBLDo Suggested Diagnosis HbA1c(%) HbA1C (mmol/mol Diabetic >/=6.5 >/=48 Prediabetes 5.7 - 6.4 39 - 47 Normal <5.7 <39 Performed By: #### 2 46079 #### [facility],[address] [place] [address] 77055 HbA1c (Bld) [Mass fraction] 6.1 % Normal 0.0 - 6.5 [facility] Comment on above: Performed By: #### 2 03029 #### [facility],[address] [place] [address] 43535 IRON AND TIBCon 01-22-2025 %SATURATION 18 % Normal [facility] Comment on above: Performed By: #### 2 12509 #### [facility],[address] [place] [address] 46593 Iron [Mass/Vol] 39 ug/dL Low 50 - 170 [facility] Comment on above: Performed By: #### 2 57791 #### [facility],[address] [place] [address] 17071 TIBC 219 ug/dl Low 250 - 450 [facility] Comment on above: Performed By: #### 2 15816 #### [facility],[address] [place] [address] 79395 UIBC 180 ug/dL Normal 155 - 355 [facility] Comment on above: Performed By: #### 2 61913 #### [facility],[address] [place] [address] 48441 LIPID PROFILEon 01-22-2025 Cholesterol [Mass/Vol] 181 mg/dL Normal 0 - 240 [facility] Comment on above: Performed By: #### 2 09198 #### [facility],[address] [place] [address] 29643 Cholesterol in HDL [Mass/Vol] 41 mg/dL Normal 40 - 60 [facility] Comment on above: Performed By: #### 2 42782 #### [facility],[address] [place] [address] 51031 Cholesterol in LDL [Mass/Vol] 111 mg/dL Normal 0 - 129 [facility] Comment on above: Performed By: #### 2 78233 #### [facility],[address] [place] [address] 30893 Cholesterol.total/Mikki sterol in HDL [Mass ratio] 4.4 {ratio} Normal 0.0 - 5.0 [facility] Comment on above: Performed By: #### 2 39855 #### [facility],[address] [place] [address] 65749 Lipid 1996 panel Normal [facility] Comment on above: Result Comment: LIPI D PROFILE Performed By: #### 2 90459 #### [facility],[address] [place] [address] 86912 Triglyceride [Mass/Vol] 144 mg/dL Normal 0 - 150 [facility] Comment on above: Performed By: #### 2 83199 #### [facility],[address] [place] [address] 14744 NT-proBNPon 01-22-2025 Natriuretic peptide B (Bld) [Mass/Vol] 7631 pg/mL High 0 - 450 [facility] Comment on above: Performed By: #### 2 97813 #### [facility],[address] [place] [address] 69231 T4-FREE (FREE THYROXINE)on 0 01-22-2025 Free T4 [Mass/Vol] 0.49 ng/dL Low 0.76 - 1.46 [facility] Comment on above: Result Comment: P otential of falsely elevated results when biotin concentrations are > 10 ng/mL. Performed By: #### 2 40368 #### [facility],[address] [place] [address] 24171 TSHon 01-22-2025 TSH Qn 87.72 m[IU]/L High 0.35 - 3.74 [facility] Comment on above: Performed By: #### 2 53753 #### [facility],[address] [place] [address] 03437 URINE MICROALBUMIN W/CREATIN INE, RANDOMon 01-22-2025 CREATININE UR 44.79 mg/dl Normal [facility] Comment on above: Performed By: #### 2 89262 #### [facility],[address] [place], [place] [id number] MICROALBUMIN UR 5.6 mg/dL Normal 0.1 - 11.6 [facility] Comment on above: Performed By: #### 2 42194 #### [facility],[address] [place], [place] [address] UACR 125 mg/g Normal [facility] Comment on above: Performed By: #### 2 57425 #### [facility],[address] [place], [place] [id number] VITAMIN B-12on 01-22-2025 Cobalamin (Vitamin B12) [Mass/Vol] 407 pg/mL Normal 193 - 986 [facility] Comment on above: Performed By: #### 2 61303 #### [facility],[address] [place] [address] 78325 VITAMIN D, 25 HYDROXYon 05- VitD 53.00 ng/mL Normal 30.00 - 100 [facility] Comment on above: Result Comment: 25-O HD3 indicates both endogenous production and supplementation. 25-OHD2 is an indicator of exogenous sources, such as diet or supplementation. Therapy is based on measurement of Total 25-OHD, with levels <20 ng/mL indicative of Vitamin D deficiency, while levels between 20 ng/mL and 30 ng/mL suggest insufficiency. Optimal levels are >=30ng/mL. Vitamin D, 25-OH D3 Not Established Vitamin D, 25-OH D2 Not Established Performed By: #### 2 64446 #### [facility],[address] [place], [place] [id number] 12 Lead EKGon 01-17-2025 12 Lead EKG [facility] [address] [place] [address] 12 Lead EKG 01/17/25 1647 MR#: [id number] Acct: [id number] Name: ADELA WELLS Rep #: [id number] : 1945 79 From: Beto Strong MD Attending Dr: Status: DEP ER Ordering Dr: Diogo Lee MD Date: 01/17/25 Location: ED Sex: F C Admitted: Test Reason : CP Blood Pressure : */* mmHG Vent. Rate : 69 BPM Atrial Rate : 69 BPM P-R Int : 164 ms QRS Dur : 100 ms QT Int : 424 ms P-R-T Axes : 24 38 97 degrees QTcB Int : 454 ms Normal sinus rhythm with sinus arrhythmia ST T wave abnormality, consider lateral ischemia Abnormal ECG Confirmed by Beto Strong ([id number]), film editor KARIN CONTRERAS ([id number]) on 01/18/2025 9:16:11 AM Referred By: Confirmed By: Beto Strong 01/18/25 0916 Date Beto Strong MD CC: Dr. Diogo Lee MD; Dr. Carlo Diaz MD Signed Normal [facility] Absolute lymphocyte countOrd ered By: Diogo Lee on 01-17-2025 Lymphocytes Auto (Unsp spec) [#/Vol] 3.87 10*3/uL 0.83-4.51 [facility] Absolute neutrophil countOrd ered By: Diogo Lee on 01-17-2025 Neutrophils (Bld) [#/Vol] 5.8 10*3/uL 2.0-7.7 [facility] Anion gap in Serum or Plasma Ordered By: Diogo Lee on 01-17-2025 Anion gap [Moles/Vol] 13 mmol/L - [facility] Automated lymphocyte count a s percentage of total leukocytesOrdered By: Diogo Lee on 01-17-2025 Lymphocytes/100 WBC Auto (Unsp spec) 36.0 % - [facility] BUN/creatinine ratioOrdered By: Diogo Lee on 01-17-2025 Urea nitrogen/Creatinine [Mass ratio] 18.7 mg/mg - [facility] Basic Metabolic Profile (BMP )on 01-17-2025 BUN/CRE 18.7 RATIO Normal - [facility] Comment on above: Performed By: #### L 501.4021, L500.2500, L100.0100 ####[facility] [address] [place], [address] Calcium [Mass/Vol] 9.0 mg/dL Normal 7.6-11.0 [facility] Comment on above: Performed By: #### L 501.4021, L500.2500, L100.0100 ####[facility] [address] [place], [address] Chloride [Moles/Vol] 101 mmol/L Normal 98-108 [facility] Comment on above: Performed By: #### L 501.4021, L500.2500, L100.0100 ####[facility] [address] [place], [address] CO2 [Moles/Vol] 19.3 mmol/L Low 21.0-32.0 [facility] Comment on above: Performed By: #### L 501.4021, L500.2500, L100.0100 ####[facility] [address] [place], [address] Creatinine [Mass/Vol] 2.34 mg/dL High 0.70-1.20 [facility] Comment on above: Performed By: #### L 501.4021, L500.2500, L100.0100 ####[facility] [address] [place], [address] ECRCL 16.89 ml/min Low 50-250 [facility] Comment on above: Performed By: #### L 501.4021, L500.2500, L100.0100 ####[facility] [address] [place], [address] GAP 13 Normal 5-15 [facility] Comment on above: Performed By: #### L 501.4021, L500.2500, L100.0100 ####[facility] [address] [place], [address] GFR/1.73 sq M.predicted among non-blacks MDRD (S/P/Bld) [Vol rate/Area] 21 mL/min/{1.73_m2} Low >60 [facility] Comment on above: Result Comment: mL/m in/1.73m2 CKD-EPI Creatinine Equation (2020) Performed By: #### L 501.4021, L500.2500, L100.0100 ####[facility] [address] [place], [address] Glucose [Mass/Vol] 108 mg/dL High 70-99 [facility] Comment on above: Performed By: #### L 501.4021, L500.2500, L100.0100 ####[facility] [address] [place], [address] Potassium [Moles/Vol] 4.6 mmol/L Normal 3.3-5.1 [facility] Comment on above: Performed By: #### L 501.4021, L500.2500, L100.0100 ####[facility] [address] [place], [address] Sodium [Moles/Vol] 134 mmol/L Normal 133-145 [facility] Comment on above: Performed By: #### L 501.4021, L500.2500, L100.0100 ####[facility] [address] [place], [address] Urea nitrogen [Mass/Vol] 44 mg/dL High 4-19 [facility] Comment on above: Performed By: #### L 501.4021, L500.2500, L100.0100 ####[facility] [address] [place], [address] Basophil percentageOrdered B y: Diogo Lee on 01-17-2025 Basophils/100 WBC (Bld) 0.8 % 0-1 [facility] CBC W/Diff, Automatedon 01-06 Absolute Lymph 3.87 X10 3/uL Normal 0.83-4.51 [facility] Comment on above: Performed By: #### L 501.4021, L500.2500, L100.0100 #### [facility] [address] [place], [address] Absolute Neut 5.8 X10 3/uL Normal 2.0-7.7 [facility] Comment on above: Performed By: #### L 501.4021, L500.2500, L100.0100 #### [facility] [address] [place], [address] Basophils/100 WBC (Bld) 0.8 % Normal 0-1 [facility] Comment on above: Performed By: #### L 501.4021, L500.2500, L100.0100 #### [facility] [address] [place], [address] Eosinophils/100 WBC (Bld) 1.9 % Normal 0-5 [facility] Comment on above: Performed By: #### L 501.4021, L500.2500, L100.0100 #### [facility] [address] [place], [address] Erythrocyte distribution width (RBC) [Ratio] 14.2 % Normal 11.6-14.6 [facility] Comment on above: Performed By: #### L 501.4021, L500.2500, L100.0100 #### [facility] [address] [place], [address] Hematocrit (Bld) [Volume fraction] 33.8 % Low 37-47 [facility] Comment on above: Performed By: #### L 501.4021, L500.2500, L100.0100 #### [facility] [address] [place], [address] Hemoglobin (Bld) [Mass/Vol] 10.8 g/dL Low 12.0-15.0 [facility] Comment on above: Performed By: #### L 501.4021, L500.2500, L100.0100 #### [facility] [address] [place], [address] IG% 0.400 Normal 0.0-0.9 [facility] Comment on above: Result Comment: IG% - Immature Granulocytes (promyelocytes, myelocytes and metamyelocytes) > 1% indicates that a LEFT SHIFT is Present. Performed By: #### L 501.4021, L500.2500, L100.0100 #### [facility] [address] [place], [address] Lymphocytes/100 WBC (Bld) 36.0 % Normal 19-41 [facility] Comment on above: Performed By: #### L 501.4021, L500.2500, L100.0100 #### [facility] [address] [place], [address] MCH (RBC) [Entitic mass] 31.2 pg Normal 27.0-32.0 [facility] Comment on above: Performed By: #### L 501.4021, L500.2500, L100.0100 #### [facility] [address] [place], [address] MCHC (RBC) [Mass/Vol] 32.0 g/dL Normal 32-36 [facility] Comment on above: Performed By: #### L 501.4021, L500.2500, L100.0100 #### [facility] [address] [place], [address] MCV (RBC) [Entitic vol] 97.7 fL Normal 81-99 [facility] Comment on above: Performed By: #### L 501.4021, L500.2500, L100.0100 #### [facility] [address] [place], [address] Monocytes/100 WBC (Bld) 7.0 % Normal 0-10 [facility] Comment on above: Performed By: #### L 501.4021, L500.2500, L100.0100 #### [facility] [address] [place], [address] Neutrophils/100 WBC (Bld) 53.9 % Normal 47-70 [facility] Comment on above: Performed By: #### L 501.4021, L500.2500, L100.0100 #### [facility] [address] [place], [address] Nucleated RBC (Bld) [#/Vol] 0 10*3/uL Normal 0-5 [facility] Comment on above: Performed By: #### L 501.4021, L500.2500, L100.0100 #### [facility] [address] [place], [address] Platelet mean volume (Bld) [Entitic vol] 10.4 fL Normal 6.2-12.0 [facility] Comment on above: Performed By: #### L 501.4021, L500.2500, L100.0100 #### [facility] [address] [place], [address] Platelets (Bld) [#/Vol] 303 10*3/uL Normal 150-450 [facility] Comment on above: Performed By: #### L 501.4021, L500.2500, L100.0100 #### [facility] [address] [place], [address] RBC (Bld) [#/Vol] 3.46 10*6/uL Low 4.2-5.4 [facility] Comment on above: Performed By: #### L 501.4021, L500.2500, L100.0100 #### [facility] [address] [place], [address] RDW SD 50.7 fl High 35.1-43.9 [facility] Comment on above: Performed By: #### L 501.4021, L500.2500, L100.0100 #### [facility] [address] [place], [address] WBC (Bld) [#/Vol] 10.8 10*3/uL Normal 4.4-11.0 [facility] Comment on above: Performed By: #### L 501.4021, L500.2500, L100.0100 #### [facility] [address] [place], [address] Carbon dioxide, total [Moles /volume] in Central venous bloodOrdered By: Diogo Lee on 01-17-2025 CO2 [Moles/Vol] 19.3 mmol/L Low 21.0-32.0 [facility] Chest 1 View (Portable)on Chest 1 View (Portable) [facility] Imaging Services [address] [place] [address] Chest 1 View (Portable) MR#: [id number] Acct: [id number] Name: ADELA WELLS Rep #: [id number] : 1945 F 79 From: Manuel Tyler MD PCP: Dr. Carlo Diaz MD Status: DEP ER Study: Chest 1 View (Portable) Date of Exam: 01/17/25 Exam# [id number] Ordering Dr: Diogo Lee MD EXAM: XR Chest, 1 View CLINICAL INDICATION: CHEST PAIN TECHNIQUE: Frontal view of the chest. COMPARISON: No relevant prior studies available. FINDINGS: LUNGS AND PLEURAL SPACES: Unremarkable. No consolidation. No pneumothorax. HEART: Unremarkable. No cardiomegaly. MEDIASTINUM: Unremarkable. Normal mediastinal contour. BONES/JOINTS: Unremarkable. No acute fracture. RAD/Chest 1 View (Portable) IMPRESSION: No acute cardiopulmonary process. Reading Location: [facility] CC: Dr. Diogo Lee MD; Dr. 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 Carlo Diaz MD Status:REG ER Location: ED HPI History of Present Illness Chief Complaint: Chest Pain Informant: patient Narrative Narrative: 79-year-old female with a history of significant CAD states she woke up at 3 AM which was about 15 hours ago with substernal chest pain that she describes as chest pain. It was nonpleuritic, she took a few aspirin, and then went away. Lasted about 20 minutes total and has not come back since. States with all of the multiple stents she has had placed and CABG, she does not recall ever having chest pain, so this was different but she is concerned this may have been her heart. She states her asthma/COPD has felt worse all day, she usually does nebulizer treatments 4 times a day but today she has been doing them about double that and she feels like she is ready for another 1 because it has been about 3 hours since she has had 1. She denies any increased coughing. She is allergic to everything outside that grows in the spring, but states she has not been out a lot lately and she was doing fine yesterday. [facility] Medical History Incarcerated ventral hernia Chest pain Elevated troponin Urinary tract infection Elevated lactic acid level Weakness generalized Incarcerated hernia of abdominal cavity CHF (congestive heart failure) Anemia NSTEMI (non-ST elevated myocardial infarction) Cardiomyopathy COVID-19 ( 04/2022) Insect bite History of non-ST elevation myocardial infarction (NSTEMI) (01/26/21) COPD (chronic obstructive pulmonary disease) Morbid obesity TIA (transient ischemic attack) Arm paresthesia, right CKD (chronic kidney disease) Atherosclerotic heart disease of teller coronary artery without angina 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 Obesity Atherosclerosis of coronary artery bypass graft without angina pectoris Essential hypertension Type 2 diabetes mellitus without complication Vertigo GERD (gastroesophageal reflux disease) Asthma Hyperlipidemia Hypothyroidism Home Medications ???Medication ???Instructions ???Recorded ???Last Taken ???Type montelukast 10 mg tablet 10 mg PO DAILY PRN ASTHMA 12/17/13 11/13/24 History aspirin 81 mg tablet,delayed 81 mg PO DAILY HEART HEALTH 11/13/24 History release cetirizine 10 mg tablet (Zyrtec) 10 mg PO DAILY PRN allergies 02/1406/09/24 History allopurinol 100 mg tablet 100 mg PO DAILY GOUT 11/22/21 03/0 05/02 History ipratropium 20 mcg-albuterol 100 1 puff inhalation Q6H BREATHING 11/13/24 History mcg/actuation mist for inhalation (Combivent Respimat) ferrous sulfate 325 mg (65 mg 325 mg PO DAILY SUPPLEMENT 3 11/13/24 History iron) tablet furosemide 40 mg tablet (Lasix) 40 mg PO DAILY diuretic 12/25/22 0 11/13/24 History cholecalciferol (vitamin D3) 25 25 mcg PO SUTUTHSA vitamin 3 11/13/24 History mcg (1,000 unit) tablet omeprazole 20 mg capsule,delayed 20 mg PO DAILY reflux 11/04/2305/02 History release ezetimibe 10 mg tablet (Zetia) 10 mg PO DAILY 02/27/24 11/13/24 H istory prednisone 5 mg tablet 5 mg PO DAILY 02/27/24 11/13/24 Hi story Held on 01/17/25. Instructions: while on higher-dose prednisone albuterol sulfate 2.5 mg/3 mL 1.25 mg inhalation TID PRN 4 11/15/24 History (0.083 %) solution for nebulization shortness of breath or wheezing ipratropium bromide 0.02 % 0.5 mg inhalation TID PRN 05/09/24 11/13/24 History solution for inhalation shortness of breath or wheezing biotin 10,000 mcg capsule 10,000 mcg PO DAILY 06/10/2411/13 History folic acid 1 mg tablet 1 mg PO DAILY 06/10/24 11/13/24 Hi story glipizide 2.5 mg tablet, extended 2.5 mg PO BID 06/10/24 11/13/24 H istory release 24 hr amlodipine 5 mg tablet 5 mg PO DAILY 08/25/24 11/13/24 Hi story spironolactone 25 mg tablet 25 mg PO QDAY HEART 08/25/2411/13 History levothyroxine 100 mcg tablet 100 mcg PO DAILY 11/15/24 11/13/24 History metoprolol tartrate 50 mg tablet 50 mg PO DAILY 11/15/24 11/13/24 H istory oxycodone 5 mg tablet 5 mg PO Q6H PRN pain 3 days #9 tab s 11/16/24 Unknown Rx cephalexin 500 mg capsule 500 mg PO Q6 #12 CAPSULES 12/03/24 Unknown Rx prednisone 20 mg tablet 40 mg (2 x 20 mg) PO DAILY 4 days 01/17/25 Unknown Rx #8 tabs Allergy/AdvReac Type Severity Reaction Status Date / Time Anesthetics - Amide Type - Allergy Other Verified 01/17/25 16:37 Select A (Anesthetic (more content not included)... Normal [facility] Eosinophil percentageOrdered By: Diogo Lee on 01-17-2025 Eosinophils/100 WBC (Bld) 1.9 % 0-5 [facility] Erythrocyte distribution wid th ratioOrdered By: Diogo Lee on 01-17-2025 Erythrocyte distribution width (RBC) [Ratio] 14.2 % 11.6-14.6 [facility] Erythrocyte distribution wid th standard deviationOrdered By: Diogo Lee on 01-17-2025 Erythrocyte distribution width (RBC) [Ratio] 50.7 fl High 35.1-43.9 [facility] Glomerular filtration rate ( GFR) estimation/1.73 sq m using serum, plasma, or whole bOrdered By: Diogo Lee on 01-17-2025 GFR/1.73 sq M.predicted among non-blacks MDRD (S/P/Bld) [Vol rate/Area] 21 mL/min/{1.73_m2} Low >60 [facility] Comment on above: mL/min/1.73m2 CKD-EP I Creatinine Equation (2020) Hematocrit Auto (Bld) [Volum e fraction]Ordered By: Diogo Lee on 01-17-2025 Hematocrit (Bld) [Volume fraction] 33.8 % Low 37-47 [facility] Hemoglobin measurementOrdere d By: Diogogayle Lee on 01-17-2025 Hemoglobin (Bld) [Mass/Vol] 10.8 g/dL Low 12.0-15.0 [facility] Immature granulocytes/100 WB C Auto (Bld)Ordered By: Diogo Lee on 01-17-2025 Immature granulocytes/100 WBC (Bld) 0.400 % 0.0-0.9 [facility] Comment on above: IG% - Immature Granu locytes (promyelocytes, myelocytes and metamyelocytes) > 1% indicates that a LEFT SHIFT is Present. L499.0042on 01-17-2025 Trop T High Sen 45 ng/L High <=14 [facility] Comment on above: Performed By: #### L 100.0100, L501.5200, L501.4020, L500.2500 #### [facility] [address] [place], [address] L499.0043on 01-17-2025 Trop T High Sen Normal <=14 [facility] Comment on above: Result Comment: PT D EP FROM ED Performed By: #### L 499.0043 #### [facility] [address] [place], [address] L501.4021on 01-17-2025 Trop T High Sen 56 ng/L Invalid Interpretation Code <=14 [facility] Comment on above: Result Comment: Crit ical Result(s) Called at: 1855 by:??JNAET MOSLEY TO ISSAC FRANZ Results read back by same. Performed By: #### L 501.4021, L500.2500, L100.0100 ####[facility] [address] [place], [address] MCV (mean corpuscular volume ) determinationOrdered By: Diogo Lee on 01-17-2025 MCV (RBC) [Entitic vol] 97.7 fL 81-99 [facility] Mean corpuscular hemoglobin (MCH) determinationOrdered By: Diogo Lee on 01-17-2025 MCH (RBC) [Entitic mass] 31.2 pg 27.0-32.0 [facility] Mean corpuscular hemoglobin concentration (MCHC) determinationOrdered By: Diogo Lee on 01-17-2025 MCHC (RBC) [Mass/Vol] 32.0 g/dL 32-36 [facility] Mean platelet volume determi nationOrdered By: Diogo Lee on 01-17-2025 Platelet mean volume (Bld) [Entitic vol] 10.4 fL 6.2-12.0 [facility] Monocyte percentageOrdered B y: Diogo Lee on 01-17-2025 Monocytes/100 WBC (Bld) 7.0 % 0-10 [facility] Neutrophil percentageOrdered By: Diogo Lee on 01-17-2025 Neutrophils/100 WBC (Bld) 53.9 % 47-70 [facility] Nucleated red blood cell per centageOrdered By: Diogo Lee on 01-17-2025 Nucleated RBC/100 WBC (Bld) [Ratio] 0 % 0-5 [facility] Platelet countOrdered By: Rohan Lee on 01-17-2025 Platelets (Bld) [#/Vol] 303 10*3/uL 150-450 [facility] Potassium measurement (mass/ volume)Ordered By: Diogo Lee on 01-17-2025 Potassium (Unsp spec) [Mass/Vol] 4.6 mmol/L 3.3-5.1 [facility] RBC Auto (Bld) [#/Vol]Ordere d By: Diogo Lee on 01-17-2025 RBC (Bld) [#/Vol] 3.46 10*6/uL Low 4.2-5.4 [facility] Serum creatinine measurement (mass/volume)Ordered By: Diogo Lee on 01-17-2025 Creatinine [Mass/Vol] 2.34 mg/dL High 0.70-1.20 [facility] Serum glucose measurement (m ass/volume)Ordered By: Diogo Lee on 01-17-2025 Glucose [Mass/Vol] 108 mg/dL High 70-99 [facility] Serum or plasma calcium beth urement (mass/volume)Ordered By: Diogo Lee on 01-17-2025 Calcium [Mass/Vol] 9.0 mg/dL 7.6-11.0 [facility] Serum or plasma urea nitroge n measurement (mass/volume)Ordered By: Diogo Lee on 01-17-2025 Urea nitrogen [Mass/Vol] 44 mg/dL High 4-19 [facility] Sodium levelOrdered By: Ernesto Lee on 01-17-2025 Sodium [Moles/Vol] 134 mmol/L 133-145 [facility] Troponin T.cardiac [Mass/vol ume] in Serum or Plasma by High sensitivity methodOrdered By: Diogo Lee on 01-17-2025 Troponin T.cardiac High sensitivity method [Mass/Vol] 45 ng/L High <14 [facility] Troponin T.cardiac High sensitivity method [Mass/Vol] 56 ng/L High <14 [facility] Comment on above: Delta: 47 on 5-1428Critical Result(s) Called at: 1855 by: JANET MOSLEY TO ISSAC FRANZ Results read back by same. White blood cell (WBC) count Ordered By: Diogo Lee on 01-17-2025 WBC (Bld) [#/Vol] 10.8 10*3/uL 4.4-11.0 [facility] URINALYSIS WITH MICROSCOPYon 01-12-[address] [facility] Comment on above: Performed By: #### 2 [id number] #### [facility],[address] [place] [address] Bacteria 2+ Normal [facility] Comment on above: Performed By: #### 2 33265 #### [facility],[address] [place] [address] 48734 Bilirubin Ql (U) Negative Normal NORMAL: NEGATIVE [facility] Comment on above: Performed By: #### 2 65665 #### [facility],[address] [place] [address] [facility] Comment on above: Performed By: #### 2 57526 #### [facility],[address] [place] [address] 86848 Clarity (U) very cloudy Normal NORMAL: CLEAR [facility] Comment on above: Performed By: #### 2 95459 #### [facility],[address] [place] [address] 82482 Color (U) yellow Normal NORMAL: YELLOW [facility] Comment on above: Performed By: #### 2 75914 #### [facility],[address] [place] [address] 71830 Crystals LM Nom (Urine sed) NONE Normal [facility] Comment on above: Performed By: #### 2 87034 #### [facility],[address] [place] [address] 98595 Epi Cells NONE Normal [facility] Comment on above: Performed By: #### 2 02971 #### [facility],[address] [place] [address] 30776 Glucose Ql (U) NORM Normal NORMAL: NORMAL [facility] Comment on above: Performed By: #### 2 25745 #### [facility],[address] [place] [address] 41597 Hemoglobin Ql (U) 150 Abnormal NORMAL: NEGATIVE [facility] Comment on above: Performed By: #### 2 19789 #### [facility],[address] [place] [address],[facility] [address] Ketone Negative Normal NORMAL: NEGATIVE [facility] Comment on above: Performed By: #### 2 99900 #### [facility],[address] [place] [address] Leukocytes 500 Abnormal NORMAL: NEGATIVE [facility] Comment on above: Result Comment: URIN E MICROSCOPIC Performed By: #### 2 29741 #### [facility],[address] [place] [address] [facility] Comment on above: Performed By: #### 2 75428 #### [facility],[address] [place] [address] Nitrite Ql (U) Positive Normal NORMAL: NEGATIVE [facility] Comment on above: Performed By: #### 2 53590 #### [facility],[address] [place] [address] pH (U) 5 [pH] Normal NORMAL: 5.0-8.0 [facility] Comment on above: Performed By: #### 2 01179 #### [facility],[address] [place] [address] Protein Ql (U) 100 Abnormal NORMAL: NEGATIVE [facility] Comment on above: Performed By: #### 2 08629 #### [facility],[address] [place] [address] Rbc NONE Normal 0-3 / hpf [facility] Comment on above: Performed By: #### 2 51071 #### [facility],[address] [place] [address] Sp [place] 1.025 Normal NORMAL: 1.010-1.030 [facility] Comment on above: Performed By: #### 2 36223 #### [facility],[address] [place] [address] Specimen Type R Normal [facility] Comment on above: Performed By: #### 2 26797 #### [facility],[address] [place] [address] URINALYSIS WITH MICROSCOPY Normal [facility] Comment on above: Result Comment: URIN ALYSIS Performed By: #### 2 96822 #### [facility],[address] [place] [address] 80694 Urobilinog NORM Normal NORMAL: NORMAL [facility] Comment on above: Performed By: #### 2 13325 #### [facility],[address] [place] [address] 01891 WBC (U) [#/Vol] /uL Normal 0-5 / hpf [facility] Comment on above: Performed By: #### 2 45182 #### [facility],[address] [place] [address] 06[address] Ye[address] [facility] Comment on above: Performed By: #### 2 06885 #### [facility],[address] [place], [place] [address] URINE CULTURE [CCL]on 2024 Bacteria identified Cx Nom (U) URCUL See Results Below See Below CULTURE, URINE ESCHERICHIA COLI >=100,000 CFU/ml Escherichia coli ORGANISM: ESCHERICHIA COLI ANTIBIOTIC NIURKA DILUTN NIURKA INTERP Ampicillin >=32 Resistant Cefazolin <=4 Susceptible For uncomplicated urinary tract infections, cefazolin results can be used to pre Ceftriaxone <=1 Susceptible Cefepime <=1 Susceptible Ertapenem <=0.5 Susceptible Meropenem <=0.25 Susceptible Ampicillin/Sulbact 16 Intermediate Piperacillin/Tazobac <=4 Susceptible Gentamicin <=1 Susceptible Tobramycin <=1 Susceptible Trimeth sulfameth <=20 Susceptible Ciprofloxacin 0.5 Intermediate Nitrofurantoin <=16 Susceptible This test was developed and its performance characteristics determined by the [facility]'s [facility] [place] ([facility]). It has not been cleared or approved by the FDA. -[facility] is regulated under CLIA as qualified to perform high-complexity testing. This test is used for clinical purposes. It should not be regarded as investigational or for research. SOURCE: Urine (Nonspecific) [facility] [employer] [address] [place] [address] Brock Chavez III, M.D. [id number] Normal [facility] Comment on above: Performed By: #### 2 63297 #### [facility],[address] [place] [address] 21475 PTH, INTACT [CCL]on 12-15-19 25 PTH, Intact 36 pg/mL Normal 15-65 [facility] Comment on above: Result Comment: [facility] [address] [place] [address] Brock Chavez III, M.D. [id number] Performed By: #### 2 27819 #### [facility],[address] [place] [address] 53342 BMP with eGFRon 12-13-[address]24 AGE [address] [facility] Comment on above: Performed By: #### 2 99908 #### [facility],[address] [place] [address] 70838 Anion gap [Moles/Vol] 13 mmol/L Normal 10 - 20 [facility] Comment on above: Performed By: #### 2 57165 #### [facility],[address] [place] [address] 57007 BMP with eGFR Normal [facility] Comment on above: Result Comment: BASI C METABOLIC PANEL Performed By: #### 2 85025 #### [facility],[address] [place] [address] 97686 Calcium [Mass/Vol] 8.5 mg/dL Normal 8.5 - 10.1 [facility] Comment on above: Performed By: #### 2 50576 #### [facility],[address] [place] [address] 08252 Chloride [Moles/Vol] 103 mmol/L Normal 98 - 107 [facility] Comment on above: Performed By: #### 2 20623 #### [facility],[address] [place] [address] 80126 CO2 [Moles/Vol] 26.3 mmol/L Normal 21.0 - 32.0 [facility] Comment on above: Performed By: #### 2 61241 #### [facility],[address] [place] [address] 39667 Creatinine [Mass/Vol] 2.36 mg/dL High 0.55 - 1.02 [facility] Comment on above: Performed By: #### 2 12505 #### [facility],[address] [place] [address] 74626 eGFR 20 ML/MINUTE Low 60 - 999 [facility] Comment on above: Performed By: #### 2 53938 #### [facility],[address] [place] [address] 90239 eGFR(AA) 24 ML/MINUTE Low 60 - 999 [facility] Comment on above: Result Comment: ACCO RDING TO THE NATIONAL KIDNEY DISEASE EDUCATION PROGRAM(NKDE), A NORMAL eGFR IS A VALUE GREATER THAN OR EQUAL TO 60 ML/MIN/1.73 SQ METERS. CHRONIC KIDNEY DISEASE: <60mL/MIN/1.73 SQ METERS KIDNEY FAILURE: <15mL/MIN/1.73 SQ METERS THIS TEST SHOULD ONLY BE USED FOR PATIENTS 18 YEARS OF AGE AND OLDER. Performed By: #### 2 02531 #### [facility],[address] [place] [address] 16490 Glucose [Mass/Vol] 251 mg/dL High 74 - 106 [facility] Comment on above: Performed By: #### 2 23312 #### [facility],[address] [place] [address] 46224 Potassium [Moles/Vol] 4.1 mmol/L Normal 3.5 - 5.1 [facility] Comment on above: Performed By: #### 2 00062 #### [facility],[address] [place] [address] 14362 Sodium [Moles/Vol] 138 mmol/L Normal 136 - 145 [facility] Comment on above: Performed By: #### 2 61868 #### [facility],[address] [place] [address] 05649 Urea nitrogen [Mass/Vol] 31 mg/dL High 7 - 18 [facility] Comment on above: Performed By: #### 2 91485 #### [facility],[address] [place] [address] 20283 CBC + DIFFon 12-13-2024 Baso # 0.06 x10EE3/UL Normal 0.00 - 0.10 [facility] Comment on above: Performed By: #### 2 95242 #### [facility],[address] [place] [address] 10451 Basophils/100 WBC (Bld) 0.5 % Normal 0.0 - 2.0 [facility] Comment on above: Performed By: #### 2 32449 #### [facility],[address] [place] [address] 04838 CBC + DIFF Normal [facility] Comment on above: Result Comment: CBC- COMPLETE BLOOD COUNT Performed By: #### 2 93055 #### [facility],[address] [place] [address] 44748 EO # 0.12 x10EE3/UL Normal 0.00 - 0.50 [facility] Comment on above: Performed By: #### 2 06939 #### [facility],[address] [place] [address] 23691 Eosinophils/100 WBC (Bld) 1.0 % Normal 0.0 - 7.0 [facility] Comment on above: Performed By: #### 2 86776 #### [facility],[address] [place] [address] 76384 Erythrocyte distribution width (RBC) [Ratio] 13.9 % Normal 12.0 - 15.6 [facility] Comment on above: Performed By: #### 2 69022 #### [facility],[address] [place] [address] 64532 Hematocrit (Bld) [Volume fraction] 33.3 % Low 34.0 - 46.0 [facility] Comment on above: Performed By: #### 2 90104 #### [facility],[address] [place] [address] 78776 Hemoglobin (Bld) [Mass/Vol] 10.7 g/dL Low 12.0 - 16.0 [facility] Comment on above: Performed By: #### 2 11527 #### [facility],[address] [place], [place] [address] Lymph # 1.95 x10EE3/UL Normal 0.80 - 2.80 [facility] Comment on above: Performed By: #### 2 14834 #### [facility],[address] [place], [place] [address] Lymphocytes/100 WBC (Bld) 16.3 % Low 20.0 - 45.0 [facility] Comment on above: Performed By: #### 2 77619 #### [facility],[address] [place], [place] [address] MANUAL DIFF N/A Normal [facility] Comment on above: Performed By: #### 2 22221 #### [facility],[address] [place] [address] 55145 MCH (RBC) [Entitic mass] 31 pg Normal 27 - 33 [facility] Comment on above: Performed By: #### 2 35493 #### [facility],[address] [place] [address] 19706 MCHC 32 X10 3 Normal 32 - 36 [facility] Comment on above: Performed By: #### 2 93491 #### [facility],[address] [place] [address] 42923 MCV (RBC) [Entitic vol] 97 fL Normal 80 - 99 [facility] Comment on above: Performed By: #### 2 62238 #### [facility],[address] [place] [address] 49489 Burnett # 0.50 x10EE3/UL Normal 0.20 - 1.00 [facility] Comment on above: Performed By: #### 2 77118 #### [facility],[address] [place] [address] 76118 MONOS % 4.2 % Normal 0.0 - 10.0 [facility] Comment on above: Performed By: #### 2 71778 #### [facility],[address] [place] [address] 61344 Morphology Hayden (Bld) [Interp] N/A Normal [facility] Comment on above: Performed By: #### 2 51117 #### [facility],[address] [place] [address] 01443 Neut # 9.29 x10EE3/UL High 1.50 - 7.10 [facility] Comment on above: Performed By: #### 2 96801 #### [facility],[address] [place] [address] 91825 Neutrophils/100 WBC (Bld) 78.0 % High 46.0 - 76.0 [facility] Comment on above: Performed By: #### 2 92950 #### [facility],[address] [place] [address] 78965 PLATELET 391 x10EE3/UL Normal 150 - 450 [facility] Comment on above: Performed By: #### 2 39487 #### [facility],[address] [place] [address] 34257 Platelet mean volume (Bld) [Entitic vol] 8.4 fL Normal 6.6 - 10.5 [facility] Comment on above: Result Comment: AUTO MATED DIFFERENTIAL Performed By: #### 2 34397 #### [facility],[address] [place] [address] 04471 RBC 3.44 x 10EE6/UL Low 4.10 - 5.30 [facility] Comment on above: Performed By: #### 2 35545 #### [facility],[address] [place] [address] 35448 WBC 11.9 x 10EE3/UL High 4.5 - 10.8 [facility] Comment on above: Performed By: #### 2 65460 #### [facility],[address] [place] [address] 70243 URIC ACIDon 12-13-2024 Urate [Mass/Vol] 6.1 mg/dL High 2.6 - 6.0 [facility] Comment on above: Performed By: #### 2 29570 #### [facility],[address] [place] [address] 02406 URINE CREATININE AND PROTEIN RATIOon 12-13-2024 CREATININE UR 198.35 mg/dl Normal [facility] Comment on above: Performed By: #### 2 81171 #### [facility],[address] [place] [address] 05207 PC RATIO 0.87 mg/dL Normal 0.00 - 10.00 [facility] Comment on above: Performed By: #### 2 33152 #### [facility],[address] [place], [place] [address] Protein (U) [Mass/Vol] 171.80 mg/dL High 0.00 - 10.[address] [facility] Comment on above: Performed By: #### 2 85809 #### [facility],[address] [place] [address] 28470 VITAMIN D, 25 HYDROXYon 04- VitD 49.20 ng/mL Normal 30.00 - 100 [facility] Comment on above: Result Comment: 25-O HD3 indicates both endogenous production and supplementation. 25-OHD2 is an indicator of exogenous sources, such as diet or supplementation. Therapy is based on measurement of Total 25-OHD, with levels <20 ng/mL indicative of Vitamin D deficiency, while levels between 20 ng/mL and 30 ng/mL suggest insufficiency. Optimal levels are >=30ng/mL. Vitamin D, 25-OH D3 Not Established Vitamin D, 25-OH D2 Not Established Performed By: #### 2 77657 #### [facility],[address] [place] [address] 64828 Surgery Visit Reporton 12-09 Surgery Visit Report [facility] [address] [place], [place] [id number] OFFICE VISIT Date of Service: 12/09/24 MR#: [id number] Acct: [id number] Name: ADELA WELLS Rep #: [id number] : 1945 Provider: Dr. Juancho jha MD Age/Sex: 79/F Location: [facility] Status: Signed Intake Vital Signs 11/15/24 20:39 12/03/24 11:24 Height 5 ft 1.5 in 5 ft 1 in Intake Visit Reasons: HERNIA 3-10 Chief Complaint: F/U Hernia repair 11/15/24 Business Practices Supervisor Required: No Is patient in pain?: No Allergies Anesthetics - Amide Type - Select A (Anesthetics - Amide Type) Allergy (Verified 12/09/24 14:17) Other acetaminophen (From Tylenol) Adverse Reaction (Severe, Verified 12/09/24 14:17) Other pravastatin Adverse Reaction (Intermediate, Verified 12/09/24 14:17) Myalgias after 15 years of taking cinnamon Adverse Reaction (Unknown, Verified 12/09/24 14:17) Unknown Penicillins Adverse Reaction (Unknown, Verified 12/09/24 14:17) Unknown ezetimibe (From Zetia) Adverse Reaction (Verified 12/09/24 14:17) myalgias leflunomide Adverse Reaction (Verified 12/09/24 14:17) Chest tightness Medications ???Medication ???Instructions ???Recorded ???Confirmed ???Type montelukast 10 mg tablet 10 mg PO DAILY PRN ASTHMA 12/17/13 12/09/24 History aspirin 81 mg tablet,delayed 81 mg PO DAILY HEART HEALTH 12/09/24 History release cetirizine 10 mg tablet (Zyrtec) 10 mg PO DAILY PRN allergies 02/1412/09/24 History allopurinol 100 mg tablet 100 mg PO DAILY GOUT 11/22/21 04/11/30 History ipratropium 20 mcg-albuterol 100 1 puff inhalation Q6H BREATHING 12/09/24 History mcg/actuation mist for inhalation (Combivent Respimat) ferrous sulfate 325 mg (65 mg 325 mg PO DAILY SUPPLEMENT 3 12/09/24 History iron) tablet furosemide 40 mg tablet (Lasix) 40 mg PO DAILY diuretic 12/25/22 0 12/09/24 History cholecalciferol (vitamin D3) 25 25 mcg PO SUTUTHSA vitamin 3 12/09/24 History mcg (1,000 unit) tablet omeprazole 20 mg capsule,delayed 20 mg PO DAILY reflux 11/04/2311/30 History release ezetimibe 10 mg tablet (Zetia) 10 mg PO DAILY 02/27/24 12/09/24 H istory prednisone 5 mg tablet 5 mg PO DAILY 02/27/24 12/09/24 Hi story albuterol sulfate 2.5 mg/3 mL 1.25 mg inhalation TID PRN 4 12/09/24 History (0.083 %) solution for nebulization shortness of breath or wheezing ipratropium bromide 0.02 % 0.5 mg inhalation TID PRN 05/09/24 12/09/24 History solution for inhalation shortness of breath or wheezing biotin 10,000 mcg capsule 10,000 mcg PO DAILY 06/10/2412/09 History folic acid 1 mg tablet 1 mg PO DAILY 06/10/24 12/09/24 Hi story glipizide 2.5 mg tablet, extended 2.5 mg PO BID 06/10/24 12/09/24 H istory release 24 hr amlodipine 5 mg tablet 5 mg PO DAILY 08/25/24 12/09/24 Hi story spironolactone 25 mg tablet 25 mg PO QDAY HEART 08/25/2412/09 History levothyroxine 100 mcg tablet 100 mcg PO DAILY 11/15/24 12/09/24 History metoprolol tartrate 50 mg tablet 50 mg PO DAILY 11/15/24 12/09/24 H istory oxycodone 5 mg tablet 5 mg PO Q6H PRN pain 3 days #9 tab s 11/16/24 12/09/24 Rx cephalexin 500 mg capsule 500 mg PO Q6 #12 CAPSULES 12/03/24 12/09/24 Rx Have you fallen in the past year?: No Subjective Details: The patient is an 79-year-old female status post a recent surgery to repair an incarcerated ventral hernia. She returns today for postoperative visit. Overall she seems to be doing well. She does state that her energy level and her appetite is still not back to normal. She does admit to losing about 11 pounds since surgery. She states that she is trying to do some high-protein foods but just states that she gets full pretty quickly. She does state that her bowels seem to be moving appropriately Objective Details: She is alert and oriented x 3. She is in no acute distress. Abdomen is soft, nontender nondistended. Incision is healing well. No signs of erythema or infection. Coding Level of Care Code Global Post Op Diagnoses Incarcerated ventral hernia K43.6 [facility] Medical History (Updated 12/09/24 @ 14:[address] Juancho Mendoza MD) Incarcerated ventral hernia Chest pain Elevated troponin Urinary tract infection Elevated lactic acid level Weakness generalized Incarcerated hernia of abdominal cavity CHF (congestive heart failure) Anemia NSTEMI (non-ST elevated myocardial infarction) Cardiomyopathy COVID-19 ( 04/2022) Insect bite History of non-ST elevation myocardial infarction (NSTEMI) (01/26/21) COPD (chronic obstructive pulmonary disease) Morbid obesity TIA (transient ischemic attack) Arm paresthesia, right CKD (chronic kidney disease) Atherosclerotic heart disease of teller cor (more content not included)... Normal [facility] 12 Lead EKGon 12-03-2024 12 Lead EKG [facility] Cardiovascular Services [address] [place] [address] 12 Lead EKG 12/03/24 1516 MR#: [id number] Acct: [id number] Name: ADELA WELLS Rep #: [id number] : 1945 79 From: Lasha Win MD Attending Dr: Status: DEP ER Ordering Dr: Alfonso Padilla DO Date: 12/03/24 Location: ED Sex: F C Admitted: Test Reason : GENERAL Blood Pressure : */* mmHG Vent. Rate : 81 BPM Atrial Rate : 81 BPM P-R Int : 150 ms QRS Dur : 104 ms QT Int : 402 ms P-R-T Axes : 40 25 96 degrees QTcB Int : 466 ms Normal sinus rhythm Nonspecific ST and T wave abnormality Abnormal ECG Confirmed by LASHA WIN MD ([id number]), film editor NIRAV DICKSON ([id number]) on 12/06/2024 9:20:06 AM Referred By: Confirmed By: LASHA WIN MD 12/06/24919 Date Lasha Win MD CC: Dr. Carlo Diaz MD; Dr. Alfonso Padilla, DO Signed Normal [facility] Absolute lymphocyte countOrd ered By: Alfonso Padilla on 12-03-2024 Lymphocytes Auto (Unsp spec) [#/Vol] 4.22 10*3/uL 0.83-4.51 [facility] Absolute neutrophil countOrd ered By: Alfonso Padilla on 12-03-2024 Neutrophils (Bld) [#/Vol] 7.4 10*3/uL 2.0-7.7 [facility] Anion gap in Serum or Plasma Ordered By: Alfonso Padilla on 12-03-2024 Anion gap [Moles/Vol] 17 mmol/L High 5-15 [facility] Automated lymphocyte count a s percentage of total leukocytesOrdered By: Alfonso Padilla on 12-03-2024 Lymphocytes/100 WBC Auto (Unsp spec) 33.1 % 19-41 [facility] BUN/creatinine ratioOrdered By: Alfonso Padilla on 12-03-2024 Urea nitrogen/Creatinine [Mass ratio] 9.1 mg/mg Low 10-20 [facility] Basic Metabolic Profile (BMP )on 12-03-2024 BUN/CRE 9.1 RATIO Low 10-20 [facility] Comment on above: Performed By: #### L 100.0100, L501.5200, L501.4020, L500.2500 #### [facility] [address] [place], [place], [id number] Calcium [Mass/Vol] 8.9 mg/dL Normal 7.6-11.0 [facility] Comment on above: Performed By: #### L 100.0100, L501.5200, L501.4020, L500.2500 #### [facility] [address] [place], [address] Chloride [Moles/Vol] 100 mmol/L Normal 98-108 [facility] Comment on above: Performed By: #### L 100.0100, L501.5200, L501.4020, L500.2500 #### [facility] [address] [place], [address] CO2 [Moles/Vol] 17.1 mmol/L Low 21.0-32.0 [facility] Comment on above: Performed By: #### L 100.0100, L501.5200, L501.4020, L500.2500 #### [facility] [address] [place], [address] Creatinine [Mass/Vol] 2.24 mg/dL High 0.70-1.20 [facility] Comment on above: Performed By: #### L 100.0100, L501.5200, L501.4020, L500.2500 #### [facility] [address] [place], [address] ECRCL 18.31 ml/min Low 50-250 [facility] Comment on above: Performed By: #### L 100.0100, L501.5200, L501.4020, L500.2500 #### [facility] [address] [place], [address] GAP 17 High 5-15 [facility] Comment on above: Performed By: #### L 100.0100, L501.5200, L501.4020, L500.2500 #### [facility] [address] [place], [address] GFR/1.73 sq M.predicted among non-blacks MDRD (S/P/Bld) [Vol rate/Area] 22 mL/min/{1.73_m2} Low >60 [facility] Comment on above: Result Comment: mL/m in/1.73m2 CKD-EPI Creatinine Equation (2020) Performed By: #### L 100.0100, L501.5200, L501.4020, L500.2500 #### [facility] [address] [place], [address] Glucose [Mass/Vol] 114 mg/dL High 70-99 [facility] Comment on above: Performed By: #### L 100.0100, L501.5200, L501.4020, L500.2500 #### [facility] [address] [place], [address] Potassium [Moles/Vol] 4.0 mmol/L Normal 3.3-5.1 [facility] Comment on above: Result Comment: Hemo lysis present, Results??could be affected. ?? Performed By: #### L 100.0100, L501.5200, L501.4020, L500.2500 #### [facility] [address] [place], [address] Sodium [Moles/Vol] 134 mmol/L Normal 133-145 [facility] Comment on above: Performed By: #### L 100.0100, L501.5200, L501.4020, L500.2500 #### [facility] [address] [place], [address] Urea nitrogen [Mass/Vol] 20 mg/dL High 4-19 [facility] Comment on above: Performed By: #### L 100.0100, L501.5200, L501.4020, L500.2500 #### [facility] [address] [place], [address] Basophil percentageOrdered B y: Alfonso Padilla on 12-03-2024 Basophils/100 WBC (Bld) 0.5 % 0-1 [facility] Bilirubin Test strip Ql (U)O rdered By: Alfonso Padilla on 12-03-2024 Bilirubin Ql (U) Negative Negative [facility] CBC W/Diff, Automatedon - Absolute Lymph 4.22 X10 3/uL Normal 0.83-4.51 [facility] Comment on above: Performed By: #### L 100.0100, L501.5200, L501.4020, L500.2500 #### [facility] [address] [place], [address] Absolute Neut 7.4 X10 3/uL Normal 2.0-7.7 [facility] Comment on above: Performed By: #### L 100.0100, L501.5200, L501.4020, L500.2500 #### [facility] [address] [place], [address] Basophils/100 WBC (Bld) 0.5 % Normal 0-1 [facility] Comment on above: Performed By: #### L 100.0100, L501.5200, L501.4020, L500.2500 #### [facility] [address] [place], [address] Eosinophils/100 WBC (Bld) 1.8 % Normal 0-5 [facility] Comment on above: Performed By: #### L 100.0100, L501.5200, L501.4020, L500.2500 #### [facility] [address] [place], [address] Erythrocyte distribution width (RBC) [Ratio] 13.8 % Normal 11.6-14.6 [facility] Comment on above: Performed By: #### L 100.0100, L501.5200, L501.4020, L500.2500 #### [facility] [address] [place], [address] Hematocrit (Bld) [Volume fraction] 33.0 % Low 37-47 [facility] Comment on above: Performed By: #### L 100.0100, L501.5200, L501.4020, L500.2500 #### [facility] [address] [place], [address] Hemoglobin (Bld) [Mass/Vol] 10.7 g/dL Low 12.0-15.0 [facility] Comment on above: Performed By: #### L 100.0100, L501.5200, L501.4020, L500.2500 #### [facility] [address] [place], [address] IG% 0.300 Normal 0.0-0.9 [facility] Comment on above: Result Comment: IG% - Immature Granulocytes (promyelocytes, myelocytes and metamyelocytes) > 1% indicates that a LEFT SHIFT is Present. Performed By: #### L 100.0100, L501.5200, L501.4020, L500.2500 #### [facility] [address] [place], [address] Lymphocytes/100 WBC (Bld) 33.1 % Normal 19-41 [facility] Comment on above: Performed By: #### L 100.0100, L501.5200, L501.4020, L500.2500 #### [facility] [address] [place], [address] MCH (RBC) [Entitic mass] 30.9 pg Normal 27.0-32.0 [facility] Comment on above: Performed By: #### L 100.0100, L501.5200, L501.4020, L500.2500 #### [facility] [address] [place], [address] MCHC (RBC) [Mass/Vol] 32.4 g/dL Normal 32-36 [facility] Comment on above: Performed By: #### L 100.0100, L501.5200, L501.4020, L500.2500 #### [facility] [address] [place], [address] MCV (RBC) [Entitic vol] 95.4 fL Normal 81-99 [facility] Comment on above: Performed By: #### L 100.0100, L501.5200, L501.4020, L500.2500 #### [facility] [address] [place], [address] Monocytes/100 WBC (Bld) 6.3 % Normal 0-10 [facility] Comment on above: Performed By: #### L 100.0100, L501.5200, L501.4020, L500.2500 #### [facility] [address] [place], [address] Neutrophils/100 WBC (Bld) 58.0 % Normal 47-70 [facility] Comment on above: Performed By: #### L 100.0100, L501.5200, L501.4020, L500.2500 #### [facility] [address] [place], [address] Nucleated RBC (Bld) [#/Vol] 0 10*3/uL Normal 0-5 [facility] Comment on above: Performed By: #### L 100.0100, L501.5200, L501.4020, L500.2500 #### [facility] [address] [place], [address] Platelet mean volume (Bld) [Entitic vol] 10.8 fL Normal 6.2-12.0 [facility] Comment on above: Performed By: #### L 100.0100, L501.5200, L501.4020, L500.2500 #### [facility] [address] [place], [address] Platelets (Bld) [#/Vol] 322 10*3/uL Normal 150-450 [facility] Comment on above: Performed By: #### L 100.0100, L501.5200, L501.4020, L500.2500 #### [facility] [address] [place], [address] RBC (Bld) [#/Vol] 3.46 10*6/uL Low 4.2-5.4 [facility] Comment on above: Performed By: #### L 100.0100, L501.5200, L501.4020, L500.2500 #### [facility] [address] [place], [address] RDW SD 48.1 fl High 35.1-43.9 [facility] Comment on above: Performed By: #### L 100.0100, L501.5200, L501.4020, L500.2500 #### [facility] [address] [place], [address] WBC (Bld) [#/Vol] 12.8 10*3/uL High 4.4-11.0 [facility] Comment on above: Performed By: #### L 100.0100, L501.5200, L501.4020, L500.2500 #### [facility] [address] [place], [address] Carbon dioxide, total [Moles /volume] in Central venous bloodOrdered By: Alfonso Padilla on 12-03-2024 CO2 [Moles/Vol] 17.1 mmol/L Low 21.0-32.0 [facility] Chest PA and Lateralon 12-03 Chest PA and Lateral [facility] Imaging Services [address] [place] [address] Chest PA and Lateral MR#: [id number] Acct: [id number] Name: ADELA WELLS Rep #: [id number] : 1945 F 79 From: Kelly Ritter MD PCP: Dr. Carlo Diaz MD Status: [facility] ER Study: Chest PA and Lateral Date of Exam: 12/03/24 Exam# [id number] Ordering Dr: Alfonso Padilla DO PROCEDURE: CHEST PA AND LATERAL 12/03/2024 REASON FOR EXAM: WEAKNESS TECHNIQUE: Frontal and lateral views of the chest. COMPARISON: 06/10/2024 FINDINGS: The lungs are clear. No pleural effusion or pneumothorax. The cardiomediastinal silhouette is normal in size. 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 No acute osseous or soft tissue abnormality. Median sternotomy wires noted. RAD/Chest PA and Lateral IMPRESSION: No acute cardiopulmonary process. Reading Location: [facility] CC: Dr. Carlo Diaz MD; Dr. Alfonso Padilla DO Toll Repairer Central Office: Signed Normal [facility] Chloride assayOrdered By: Joseph Padilla on 12-03-2024 Chloride [Moles/Vol] 100 mmol/L 98-108 [facility] Emergency Department Summary on 12-03-2024 Emergency Department Summary [facility] Medical Records Department [address] [place] [id number] Emergency Department Summary 12/03/24 MR#: [id number] Acct: [id number] Name: ADELA WELLS Rep #: [id number] : 1945 79 From: Alfonso Padilla DO PCP: Dr. Carlo Diaz MD Status:DEP ER Location: ED HPI History of Present Illness Chief Complaint: Weakness Informant: patient and family Onset/Context/Timing Onset: Weeks (2) Context: Gradual Onset Timing: Continuous Quality: Weak Location: Generalized Worsened by: Nothing Relieved by: Taking a nap Narrative Narrative: Patient presents with weakness and shakiness that has been getting worse over the past couple weeks. Patient states she feels weak all over. Patient states she feels fatigued. Patient states she feels better after taking a nap. Patient states nothing makes it worse. Patient admits to some subjective chills but denies any fevers. Patient admits to a sore throat. Patient admits to some nausea. Patient denies any chest pain or shortness of breath. Patient denies any vomiting. [facility] Medical History Incarcerated hernia of abdominal cavity CHF (congestive heart failure) Anemia NSTEMI (non-ST elevated myocardial infarction) Cardiomyopathy COVID-19 ( 04/2022) Insect bite History of non-ST elevation myocardial infarction (NSTEMI) (01/26/21) COPD (chronic obstructive pulmonary disease) Morbid obesity TIA (transient ischemic attack) Arm paresthesia, right CKD (chronic kidney disease) Atherosclerotic heart disease of teller coronary artery without angina 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 Obesity Atherosclerosis of coronary artery bypass graft without angina pectoris Essential hypertension Type 2 diabetes mellitus without complication Vertigo GERD (gastroesophageal reflux disease) Asthma Hyperlipidemia Hypothyroidism Home Medications ???Medication ???Instructions ???Recorded ???Last Taken ???Type montelukast 10 mg tablet 10 mg PO DAILY PRN ASTHMA 12/17/13 11/13/24 History aspirin 81 mg tablet,delayed 81 mg PO DAILY HEART HEALTH 11/13/24 History release cetirizine 10 mg tablet (Zyrtec) 10 mg PO DAILY PRN allergies 02/1406/09/24 History allopurinol 100 mg tablet 100 mg PO DAILY GOUT 11/22/2105/02 History ipratropium 20 mcg-albuterol 100 1 puff inhalation Q6H BREATHING 11/13/24 History mcg/actuation mist for inhalation (Combivent Respimat) ferrous sulfate 325 mg (65 mg 325 mg PO DAILY SUPPLEMENT 3 11/13/24 History iron) tablet furosemide 40 mg tablet (Lasix) 40 mg PO DAILY diuretic 12/25/22 0 11/13/24 History cholecalciferol (vitamin D3) 25 25 mcg PO SUTUTHSA vitamin 3 11/13/24 History mcg (1,000 unit) tablet omeprazole 20 mg capsule,delayed 20 mg PO DAILY reflux 11/04/2305/02 History release ezetimibe 10 mg tablet (Zetia) 10 mg PO DAILY 02/27/24 11/13/24 H istory prednisone 5 mg tablet 5 mg PO DAILY 02/27/24 11/13/24 Hi story albuterol sulfate 2.5 mg/3 mL 1.25 mg inhalation TID PRN 4 11/15/24 History (0.083 %) solution for nebulization shortness of breath or wheezing ipratropium bromide 0.02 % 0.5 mg inhalation TID PRN 05/09/24 11/13/24 History solution for inhalation shortness of breath or wheezing biotin 10,000 mcg capsule 10,000 mcg PO DAILY 06/10/2411/13 History folic acid 1 mg tablet 1 mg PO DAILY 06/10/24 11/13/24 Hi story glipizide 2.5 mg tablet, extended 2.5 mg PO BID 06/10/24 11/13/24 H istory release 24 hr amlodipine 5 mg tablet 5 mg PO DAILY 08/25/24 11/13/24 Hi story spironolactone 25 mg tablet 25 mg PO QDAY HEART 08/25/2411/13 History levothyroxine 100 mcg tablet 100 mcg PO DAILY 11/15/24 11/13/24 History metoprolol tartrate 50 mg tablet 50 mg PO DAILY 11/15/24 11/13/24 H istory oxycodone 5 mg tablet 5 mg PO Q6H PRN pain 3 days #9 tab s 11/16/24 Unknown Rx cephalexin 500 mg capsule 500 mg PO Q6 #12 CAPSULES 12/03/24 Unknown Rx Allergy/AdvReac Type Severity Reaction Status Date / Time Anesthetics - Amide Type - Allergy Other Verified 12/03/24 11:24 Select A (Anesthetics - Amide Type) acetaminophen (From Tylenol) AdvReac Severe Other Verified 12/03/24 11:24 pravastatin AdvReac Intermediate Myalgias Verified 12/03/24 11:24 after 15 years of taking cinnamon AdvReac Unknown Unknown Verified 12/03/24 11:24 Penicillins AdvReac Unknown Unknown Verified 12/03/24 11:24 ezetimibe (From Zetia) AdvReac myalgias Verified 12/03/24 11:24 leflunomide AdvReac Chest Verified 12/03/24 11:24 tightness Family History Mother , age 86, advanced age No (more content not included)... Normal [facility] Eosinophil percentageOrdered By: Alfonso Padilla on 12-03-2024 Eosinophils/100 WBC (Bld) 1.8 % 0-5 [facility] Epithelial cells.squamous LM Ql (Urine sed)Ordered By: Alfonso Padilla on 12-03-2024 Epithelial cells.squamous LM.HPF (Urine sed) [#/Area] 10 /[HPF] 5-10 [facility] Erythrocyte distribution wid th ratioOrdered By: Alfonso Padilla on 12-03-2024 Erythrocyte distribution width (RBC) [Ratio] 13.8 % 11.6-14.6 [facility] Erythrocyte distribution wid th standard deviationOrdered By: Alfonso Padilla on 12-03-2024 Erythrocyte distribution width (RBC) [Entitic vol] 48.1 fL High 35.1-43.9 [facility] Erythrocyte distribution width (RBC) [Ratio] 48.1 fl High 35.1-43.9 [facility] Estimation of creatinine vibha aranceOrdered By: Alfonso Padilla on 12-03-2024 Estimated Creatinine Clearance Calc 18.31 ml/min Low 50-250 [facility] GFR/1.73 sq M.predicted ramiro g non-blacks MDRD (S/P/Bld) [Vol rate/Area]Ordered By: Alfonso Padilla on 12-03-2024 Estimated GFR (MDRD) Non-Af Amer 22 Low >60 [facility] Comment on above: mL/min/1.73m2 CKD-EP I Creatinine Equation (2020) Glomerular filtration rate ( GFR) estimation/1.73 sq m using serum, plasma, or whole bOrdered By: Alfonso Padilla on 12-03-2024 GFR/1.73 sq M.predicted among non-blacks MDRD (S/P/Bld) [Vol rate/Area] 22 mL/min/{1.73_m2} Low >60 [facility] Comment on above: mL/min/1.73m2 CKD-EP I Creatinine Equation (2020) Glucose Ql (U)Ordered By: Joseph Padilla on 12-03-2024 Urine Glucose (UA) Normal mg/dl Normal [facility] Hematocrit Auto (Bld) [Volum e fraction]Ordered By: Alfonso Padilla on 12-03-2024 Hematocrit (Bld) [Volume fraction] 33.0 % Low 37-47 [facility] Hemoglobin measurementOrdere d By: Alfonso Padilla on 12-03-2024 Hemoglobin (Bld) [Mass/Vol] 10.7 g/dL Low 12.0-15.0 [facility] Immature granulocytes/100 WB C Auto (Bld)Ordered By: Alfonso Padilla on 12-03-2024 Immature granulocytes/100 WBC (Bld) 0.300 % 0.0-0.9 [facility] Comment on above: IG% - Immature Granu locytes (promyelocytes, myelocytes and metamyelocytes) > 1% indicates that a LEFT SHIFT is Present. Influenza virus A and B and SARS-CoV-2 (COVID-19) and Respiratory syncytial virus RNAOrdered By: Alfonso Padilla on 12-03-2024 SARS-CoV-2 (COVID-19) RNA PRABHJOT+probe Ql (Unsp spec) [facility] Ketones Test strip Ql (U)Ord ered By: Alfonso Padilla on 12-03-2024 Ketones Ql (U) Negative Negative [facility] L499.0042on 12-03-2024 Trop T High Sen 44 ng/L High <=14 [facility] Comment on above: Performed By: #### L 499.0042 ####[facility] [address] [place], [address] L499.0043on 12-03-2024 Trop T High Sen Normal <=14 [facility] Comment on above: Result Comment: Canc elled via OM: Order cancelled - Patient discharged Performed By: #### L 100.0100, L501.5200, L501.4020, L500.2500 #### [facility] [address] [place], [address] L501.4021on 12-03-2024 Trop T High Sen 47 ng/L High <=14 [facility] Comment on above: Performed By: #### L 100.0100, L501.5200, L501.4020, L500.2500 #### [facility] [address] [place], [address] L503.7505on 12-03-2024 Natriuretic peptide B (Bld) [Mass/Vol] 5040 pg/mL High <=1800 [facility] Comment on above: Result Comment: Hear t Failure Unlikely: < 300 pg/mL Heart Failure Likely < 50 Years: > 450 pg/mL 50-75 Years: > 900 pg/mL >75 Years: > 1800 pg/mL Performed By: #### L 100.0100, L501.5200, L501.4020, L500.2500 #### [facility] [address] [place], [place], [id number] Laboratory - Chemistry and C hemistry - challengeOrdered By: Alfonso Padilla on 12-03-2024 Natriuretic peptide B (Bld) [Mass/Vol] 5040 pg/mL High <1800 [facility] Comment on above: Heart Failure Unlike ly: < 300 pg/mLHeart Failure Likely< 50 Years: > 450 pg/mL50-75 Years: > 900 pg/mL>75 Years: > 1800 pg/mL Lymphocytes Auto (Unsp spec) [#/Vol]Ordered By: Alfonso Padilla on 12-03-2024 Lymphocytes (Bld) [#/Vol] 4.22 10*3/uL 0.83-4.51 [facility] Lymphocytes/100 WBC Auto (Un sp spec)Ordered By: Alfonso Padilla on 12-03-2024 Lymphocytes/100 WBC (Bld) 33.1 % 19-41 [facility] M100.678on 12-03-2024 M100.678 Pending SARS-CoV-2 (COVID 19) Negative INFLUENZA A Negative INFLUENZA B Negative RSV PCR Negative Normal [facility] Comment on above: Performed By: #### L 400.0001, M100.678 ####[facility] [address] [place], [place], [id number] MCV (mean corpuscular volume ) determinationOrdered By: Alfonso Padilla on 12-03-2024 MCV (RBC) [Entitic vol] 95.4 fL 81-99 [facility] Mean corpuscular hemoglobin (MCH) determinationOrdered By: Alfonso Padilla on 12-03-2024 MCH (RBC) [Entitic mass] 30.9 pg 27.0-32.0 [facility] Mean corpuscular hemoglobin concentration (MCHC) determinationOrdered By: Alfonso Padilla on 12-03-2024 MCHC (RBC) [Mass/Vol] 32.4 g/dL 32-36 [facility] Mean platelet volume determi nationOrdered By: Alfonso Padilla on 12-03-2024 Platelet mean volume (Bld) [Entitic vol] 10.8 fL 6.2-12.0 [facility] Microscopic analysis of urin e for red blood cells (RBC)Ordered By: Alfonso Padilla on 12-03-2024 Microscopic analysis of urine for red blood cells (RBC) 0-5 SEEN /hpf 0-5 [facility] Urine RBC 0-5 SEEN /hpf 0-5 [facility] Monocyte percentageOrdered B y: Alfonso Padilla on 12-03-2024 Monocytes/100 WBC (Bld) 6.3 % 0-10 [facility] Mucus LM Ql (Urine sed)Order ed By: Alfonso Padilla on 12-03-2024 Mucus Ql (Urine sed) 0 SEEN /hpf [facility] Neutrophil percentageOrdered By: Alfonso Padilla on 12-03-2024 Neutrophils/100 WBC (Bld) 58.0 % 47-70 [facility] Nitrite Test strip Ql (U)Ord ered By: Alfonso Padilla on 12-03-2024 Nitrite Ql (U) Positive High Negative [facility] No Panel InformationOrdered By: Alfonso Padilla on 12-03-2024 Troponin T High Sensitivity 47 ng/L High <14 [facility] Nucleated red blood cell per centageOrdered By: Alfonso Padilla on 12-03-2024 Nucleated RBC/100 WBC (Bld) [Ratio] 0 % 0-5 [facility] Platelet countOrdered By: Joseph Padilla on 12-03-2024 Platelets (Bld) [#/Vol] 322 10*3/uL 150-450 [facility] Potassium (Unsp spec) [Mass/ Vol]Ordered By: Alfonso Padilla on 12-03-2024 Potassium [Moles/Vol] 4.0 mmol/L 3.3-5.1 [facility] Comment on above: Hemolysis present, R esults could be affected. Potassium measurement (mass/ volume)Ordered By: Alfonso Padilla on 12-03-2024 Potassium (Unsp spec) [Mass/Vol] 4.0 mmol/L 3.3-5.1 [facility] Comment on above: Hemolysis present, R esults could be affected. Protein Test strip Ql (U)Ord ered By: Alfonso Padilla on 12-03-2024 Protein Ql (U) 100 mg/dl High Negative [facility] RBC Auto (Bld) [#/Vol]Ordere d By: Alfonso Padilla on 12-03-2024 RBC (Bld) [#/Vol] 3.46 10*6/uL Low 4.2-5.4 [facility] Serum creatinine measurement (mass/volume)Ordered By: Alfonso Padilla on 12-03-2024 Creatinine [Mass/Vol] 2.24 mg/dL High 0.70-1.20 [facility] Serum glucose measurement (m ass/volume)Ordered By: Alfonso Padilla on 12-03-2024 Glucose [Mass/Vol] 114 mg/dL High 70-99 [facility] Serum or plasma calcium beth urement (mass/volume)Ordered By: Alfonso Padilla on 12-03-2024 Calcium [Mass/Vol] 8.9 mg/dL 7.6-11.0 [facility] Serum or plasma urea nitroge n measurement (mass/volume)Ordered By: Alfonso Padilla on 12-03-2024 Urea nitrogen [Mass/Vol] 20 mg/dL High 4-19 [facility] Sodium levelOrdered By: Alfonso Padilla on 12-03-2024 Sodium [Moles/Vol] 134 mmol/L 133-145 [facility] Squamous epithelial cells de tection in urine sediment by light microscopyOrdered By: Alfonso Padilla on 12-03-2024 Epithelial cells.squamous LM Ql (Urine sed) 10-25 SEEN /hpf 5-10 [facility] Troponin T.cardiac High sens itivity method [Mass/Vol]Ordered By: Alfonso Padilla on 12-03-2024 Troponin T High Sensitivity 2 Hour 44 ng/L High <14 [facility] Troponin T.cardiac [Mass/vol ume] in Serum or Plasma by High sensitivity methodOrdered By: Alfonso Padilla on 12-03-2024 Troponin T.cardiac High sensitivity method [Mass/Vol] 44 ng/L High <14 [facility] Urinalysis, Completeon 12-03 BACTERIA 2+ /hpf Normal None Seen [facility] Comment on above: Order Comment: CLEAN CATCH Performed By: #### L 400.0001, M100.678 ####[facility] [address] [place], [address] EPI,SQUAMOUS 10-25 SEEN Normal 5-10 [facility] Comment on above: Order Comment: CLEAN CATCH Performed By: #### L 400.0001, M100.678 ####[facility] [address] [place], [address] RBC 0-5 SEEN Normal 0-5 [facility] Comment on above: Order Comment: CLEAN CATCH Performed By: #### L 400.0001, M100.678 ####[facility] [address] [place], [address] WBC >100 SEEN Normal 0-5 [facility] Comment on above: Order Comment: CLEAN CATCH Result Comment: Micr oscopic field is filled. Other elements may be obscured. Performed By: #### L 400.0001, M100.678 ####[facility] [address] [place], [address] Mucus Ql (Urine sed) 0 SEEN Normal [facility] Comment on above: Order Comment: CLEAN CATCH Performed By: #### L 400.0001, M100.678 ####[facility] [address] [place], [address] Urine blood detectionOrdered By: Alfonso Padilla on 12-03-2024 Urine Occult Blood 50 /ul High Negative [facility] Urine clarityOrdered By: Marilee Padilla on 12-03-2024 Clarity (U) Cloudy Clear [facility] Urine color determinationOrd ered By: Alfonso Padilla on 12-03-2024 Color (U) Yellow Yellow [facility] Urine glucose detectionOrder ed By: Alfonso Padilla on 12-03-2024 Glucose Ql (U) Normal mg/dl Normal [facility] Urine leukocyte esterase det ection by dipstickOrdered By: Alfonso Padilla on 12-03-2024 Leukocyte esterase Test strip Ql (U) 500 /ul High Negative [facility] Urine pHOrdered By: Alfonso johns on 12-03-2024 pH (U) 6.0 [pH] 5.0 - 8.0 [facility] Urine sediment bacteria coun t by microscopy (number/high power field)Ordered By: Alfonso Padilla on 12-03-2024 Bacteria LM.HPF (Urine sed) [#/Area] 2 /[HPF] None Seen [facility] Urine specific gravity measu rementOrdered By: Alfonso Padilla on 12-03-2024 Specific gravity (U) [Rel density] 1.015 1.002-1.030 [facility] Urine urobilinogen measureme ntOrdered By: Alfonso Padilla on 12-03-2024 Urobilinogen Ql (U) Normal mg/dl Normal [facility] Urobilinogen Ql (U)Ordered B y: Alfonso Padilla on 12-03-2024 Urine Urobilinogen Normal mg/dl Normal [facility] White blood cell (WBC) count Ordered By: Alfonso Padilla on 12-03-2024 WBC (Bld) [#/Vol] 12.8 10*3/uL High 4.4-11.0 [facility] White blood cell countOrdere d By: Alfonso Padilla on 12-03-2024 Urine WBC >100 SEEN /hpf 0-5 [facility] Comment on above: Microscopic field is filled. Other elements may be obscured. White blood cell count >100 SEEN /hpf 0-5 [facility] Comment on above: Microscopic field is filled. Other elements may be obscured. URINE MICROALBUMIN W/CREATIN INE, RANDOMon 11-25-2024 CREATININE UR 114.27 mg/dl Normal [facility] Comment on above: Performed By: #### 2 [id number] #### [facility],[address] [place] [address] MICROALBUMIN UR 17.8 mg/dL High 0.1 - 11.6 [facility] Comment on above: Result Comment: RON SARATamar DILUTED Performed By: #### 2 [id number] #### [facility],[address] [place] [address] UACR 156 mg/g Normal [facility] Comment on above: Performed By: #### 2 [id number] #### [facility],[address] [place] [address] Absolute lymphocyte countOrd ered By: Juancho Mendoza on 11-16-2024 Lymphocytes Auto (Unsp spec) [#/Vol] 2.01 10*3/uL 0.83-4.51 [facility] Absolute neutrophil countOrd ered By: Juancho Mendoza on 11-16-2024 Neutrophils (Bld) [#/Vol] 9.0 10*3/uL High 2.0-7.7 [facility] Anion gap in Serum or Plasma Ordered By: Juancho Mendoza on 11-16-2024 Anion gap [Moles/Vol] 11 mmol/L 5-15 [facility] Automated lymphocyte count a s percentage of total leukocytesOrdered By: Juancho Mendoza on 11-16-2024 Lymphocytes/100 WBC Auto (Unsp spec) 16.8 % Low 19-41 [facility] BUN/creatinine ratioOrdered By: Juancho Mendoza on 11-16-2024 Urea nitrogen/Creatinine [Mass ratio] 15.5 mg/mg 10- [facility] Basic Metabolic Profile (BMP )on 11-16-2024 BUN/CRE 15.5 RATIO Normal - [facility] Comment on above: Performed By: #### L 500.2500, L100.0100 ####[facility] [address] [place], [address] Calcium [Mass/Vol] 7.9 mg/dL Normal 7.6-11.0 [facility] Comment on above: Performed By: #### L 500.2500, L100.0100 ####[facility] [address] [place], [address] Chloride [Moles/Vol] 108 mmol/L Normal 98-108 [facility] Comment on above: Performed By: #### L 500.2500, L100.0100 ####[facility] [address] [place], [address] CO2 [Moles/Vol] 17.4 mmol/L Low 21.0-32.0 [facility] Comment on above: Performed By: #### L 500.2500, L100.0100 ####[facility] [address] [place], [address] Creatinine [Mass/Vol] 1.98 mg/dL High 0.70-1.20 [facility] Comment on above: Performed By: #### L 500.2500, L100.0100 ####[facility] [address] [place], [address] ECRCL 20.92 ml/min Low 50-250 [facility] Comment on above: Performed By: #### L 500.2500, L100.0100 ####[facility] [address] [place], [address] GAP 11 Normal 5-15 [facility] Comment on above: Performed By: #### L 500.2500, L100.0100 ####[facility] [address] [place], [address] GFR/1.73 sq M.predicted among non-blacks MDRD (S/P/Bld) [Vol rate/Area] 25 mL/min/{1.73_m2} Low >60 [facility] Comment on above: Result Comment: mL/m in/1.73m2 CKD-EPI Creatinine Equation (2020) Performed By: #### L 500.2500, L100.0100 ####[facility] [address] [place], [address] Glucose [Mass/Vol] 157 mg/dL High 70-99 [facility] Comment on above: Performed By: #### L 500.2500, L100.0100 ####[facility] [address] [place], [address] Potassium [Moles/Vol] 4.1 mmol/L Normal 3.3-5.1 [facility] Comment on above: Performed By: #### L 500.2500, L100.0100 ####[facility] [address] [place], [address] Sodium [Moles/Vol] 136 mmol/L Normal 133-145 [facility] Comment on above: Performed By: #### L 500.2500, L100.0100 ####[facility] [address] [place], [address] Urea nitrogen [Mass/Vol] 31 mg/dL High 4-19 [facility] Comment on above: Performed By: #### L 500.2500, L100.0100 ####[facility] [address] [place], [address] Basophil percentageOrdered B y: Juancho Mendoza on 11-16-2024 Basophils/100 WBC (Bld) 0.4 % 0-1 [facility] CBC W/Diff, Automatedon 11-06 Absolute Lymph 2.01 X10 3/uL Normal 0.83-4.51 [facility] Comment on above: Performed By: #### L 500.2500, L100.0100 ####[facility] [address] [place], [address] Absolute Neut 9.0 X10 3/uL High 2.0-7.7 [facility] Comment on above: Performed By: #### L 500.2500, L100.0100 ####[facility] [address] [place], [address] Basophils/100 WBC (Bld) 0.4 % Normal 0-1 [facility] Comment on above: Performed By: #### L 500.2500, L100.0100 ####[facility] [address] [place], [address] Eosinophils/100 WBC (Bld) 0.9 % Normal 0-5 [facility] Comment on above: Performed By: #### L 500.2500, L100.0100 ####[facility] [address] [place], [address] Erythrocyte distribution width (RBC) [Ratio] 14.4 % Normal 11.6-14.6 [facility] Comment on above: Performed By: #### L 500.2500, L100.0100 ####[facility] [address] [place], [address] Hematocrit (Bld) [Volume fraction] 29.9 % Low 37-47 [facility] Comment on above: Performed By: #### L 500.2500, L100.0100 ####[facility] [address] [place], [address] Hemoglobin (Bld) [Mass/Vol] 9.6 g/dL Low 12.0-15.0 [facility] Comment on above: Performed By: #### L 500.2500, L100.0100 ####[facility] [address] [place], [address] IG% 0.300 Normal 0.0-0.9 [facility] Comment on above: Result Comment: IG% - Immature Granulocytes (promyelocytes, myelocytes and metamyelocytes) > 1% indicates that a LEFT SHIFT is Present. Performed By: #### L 500.2500, L100.0100 ####[facility] [address] [place], [address] Lymphocytes/100 WBC (Bld) 16.8 % Low 19-41 [facility] Comment on above: Performed By: #### L 500.2500, L100.0100 ####[facility] [address] [place], [address] MCH (RBC) [Entitic mass] 32.0 pg Normal 27.0-32.0 [facility] Comment on above: Performed By: #### L 500.2500, L100.0100 ####[facility] [address] [place], [address] MCHC (RBC) [Mass/Vol] 32.1 g/dL Normal 32-36 [facility] Comment on above: Performed By: #### L 500.2500, L100.0100 ####[facility] [address] [place], [address] MCV (RBC) [Entitic vol] 99.7 fL High 81-99 [facility] Comment on above: Performed By: #### L 500.2500, L100.0100 ####[facility] [address] [place], [address] Monocytes/100 WBC (Bld) 6.5 % Normal 0-10 [facility] Comment on above: Performed By: #### L 500.2500, L100.0100 ####[facility] [address] [place], [address] Neutrophils/100 WBC (Bld) 75.1 % High 47-70 [facility] Comment on above: Performed By: #### L 500.2500, L100.0100 ####[facility] [address] [place], [address] Nucleated RBC (Bld) [#/Vol] 0 10*3/uL Normal 0-5 [facility] Comment on above: Performed By: #### L 500.2500, L100.0100 ####[facility] [address] [place], [address] Platelet mean volume (Bld) [Entitic vol] 10.5 fL Normal 6.2-12.0 [facility] Comment on above: Performed By: #### L 500.2500, L100.0100 ####[facility] [address] [place], [address] Platelets (Bld) [#/Vol] 289 10*3/uL Normal 150-450 [facility] Comment on above: Performed By: #### L 500.2500, L100.0100 ####[facility] [address] [place], [address] RBC (Bld) [#/Vol] 3.00 10*6/uL Low 4.2-5.4 [facility] Comment on above: Performed By: #### L 500.2500, L100.0100 ####[facility] [address] [place], [address] RDW SD 52.6 fl High 35.1-43.9 [facility] Comment on above: Performed By: #### L 500.2500, L100.0100 ####[facility] [address] [place], [address] WBC (Bld) [#/Vol] 12.0 10*3/uL High 4.4-11.0 [facility] Comment on above: Performed By: #### L 500.2500, L100.0100 ####[facility] [address] [place], [address] Carbon dioxide, total [Moles /volume] in Central venous bloodOrdered By: Juancho Mendoza on 11-16-2024 CO2 [Moles/Vol] 17.4 mmol/L Low 21.0-32.0 [facility] Chloride assayOrdered By: St karen Mendoza on 11-16-2024 Chloride [Moles/Vol] 108 mmol/L 98-108 [facility] Discharge Instructionon 11-06 Discharge Instruction [facility] Medical Records Department [address] [place] [address] Instructions for Home/Discharge Instructions 11/16/24 0935 MR#: [id number] Acct: [id number] Name: ADELA WELLS Rep #: [id number] : 1945 79 From: Karin TILLMAN PA-C PCP: Dr. Carlo Diaz MD Status:ADM NEISHA Discharge Instructions Diet Discharge Diet: Light diet - advance as tolerated DC O2, CPAP, BIPAP needs Home O2 Discharge instructions: No Dressing / Incision Discharge Activity: May Not Drive (3-5 days or while on narcotic pain medication) Lifting Restrictions: 10 pounds for 1 week; 20 pounds for 5 additional weeks Dressing / Incision Call your doctor if your incision/area has: Continuous Slow Oozing, Sudden Increased Bleeding, Increased Pain/ Swelling, Increased Redness, Foul Smelling Discharge and Swelling at the incision site Call your doctor if you observe: Fever of 101 or Higher Suture Line Care: Avoid Pulling/Pushing and Avoid Pinching/Bending Cleanse incision/area with: Soap Water Follow Up Care Please Follow Up With: Karin Summers PA-C When: Please contact our office at [phone], option #2 to schedule a 2 week follow-up Test Results: Test results from this visit will be discussed in further detail at your follow-up appointment, if applicable. Discharge Plan Admission Admit Date/Time: 11/15/24 17:43 Primary Reason for Your Visit: Incarcerated ventral hernia causing a bowel obstruction Attending Provider: Juancho Mendoza Primary Care Provider: Carlo Diaz Instructions Additional Instructions / Restrictions: Hernia Diet ??? Start light with soups and soft bland foods. You may advance diet as tolerated. Activity ??? You may drive in 3-5 days but not while taking narcotic pain medication. ??? I encourage walking. You may go up steps, one at a time. ??? Do not swim or use hot tubs for 2 weeks. ??? For comfort, you may use warm compresses or ice as needed for 15-20 minutes at a time. Lifting ??? You may lift up to 10 pounds for 1 week. You may advance to 20 pounds for the next 5 weeks. Dressings/Incision ??? You may shower OVER your incisions Medications ??? Anesthesia used during surgery and pain medications may cause constipation. I recommend initiating on the day of surgery a fiber supplement like, Metamucil, Citrucel, FiberCon, Benefiber, or a generic form of these medications. 1 heaping tablespoon in water daily. You may continue to utilize any bowel regimen or oral laxatives that you routinely take. ??? As long as you are not intolerant to Tylenol, acetaminophen, ibuprofen, Motrin, Advil, Aleve, or similar medications, I would recommend transitioning to these [id number]-[id number] medicines as soon as possible instead of continued use of narcotic pain medication. Follow up ??? You should call [facility] soon after surgery, at [phone] option 2 to make a follow up appointment for 10-14 days after your surgery. Discharge Orders/Prescriptions Prescriptions: New oxycodone 5 mg Tablet 5 mg PO Q6H PRN (Reason: pain) 3 Days Qty: 9 0RF Continued aspirin 81 mg tablet,delayed release (DR/EC) 81 mg PO DAILY cetirizine [Zyrtec] 10 mg tablet 10 mg PO DAILY PRN (Reason: allergies) allopurinol 100 mg tablet 100 mg PO DAILY furosemide [Lasix] 40 mg tablet 40 mg PO DAILY cholecalciferol (vitamin D3) 25 mcg (1,000 unit) tablet 25 mcg PO SUTUTHSA spironolactone 25 mg tablet 25 mg PO QDAY ferrous sulfate 325 mg (65 mg iron) tablet 325 mg PO DAILY prednisone 5 mg tablet 5 mg PO DAILY ezetimibe [Zetia] 10 mg tablet 10 mg PO DAILY amlodipine 5 mg tablet 5 mg PO DAILY Rx Instructions: Hold for SBP less than 130 mmHg montelukast 10 MG tablet 10 mg PO DAILY PRN (Reason: ASTHMA) Combivent Respimat 20-100 mcg/actuation mist 1 puff INHALATION Q6H Patient Comments: PT DOES HAVE THIS MEDICATION WITH HER. omeprazole 20 mg capsule,delayed release(DR/EC) 20 mg PO DAILY albuterol sulfate 2.5 mg /3 mL (0.083 %) solution for nebulization 1.25 mg inhalation TID PRN (Reason: shortness of breath or wheezing) ipratropium bromide 0.02 % solution 0.5 mg inhalation TID PRN (Reason: shortness of breath or wheezing) glipizide 2.5 mg tablet extended release 24hr 2.5 mg PO BID folic acid 1 mg tablet 1 mg PO DAILY biotin 10,000 mcg capsule 10,000 mcg PO DAILY levothyroxine 100 mcg tablet 100 mcg PO DAILY metoprolol tartrate 50 mg tablet 50 mg PO DAILY Referrals / Follow Up: Carlo Diaz MD [Primary Care Provider] - Disposition Disposition (needs filled in before D/C Order can be placed): Home, Self Care 11/16/24 Ken Frazier Kristopher TILLMAN PA-C CC: Dr. Carlo Diaz MD Signed Normal [facility] Eosinophil percentageOrdered By: Juancho Mendoza on 11-16-2024 Eosinophils/100 WBC (Bld) 0.9 % 0-5 [facility] Erythrocyte distribution wid th ratioOrdered By: Juancho Mendoza on 11-16-2024 Erythrocyte distribution width (RBC) [Ratio] 14.4 % 11.6-14.6 [facility] Erythrocyte distribution wid th standard deviationOrdered By: Juancho Mendoza on 11-16-2024 Erythrocyte distribution width (RBC) [Entitic vol] 52.6 fL High 35.1-43.9 [facility] Erythrocyte distribution width (RBC) [Ratio] 52.6 fl High 35.1-43.9 [facility] Estimation of creatinine vibha aranceOrdered By: Juancho Mendoza on 11-16-2024 Estimated Creatinine Clearance Calc 20.92 ml/min Low 50-250 [facility] GFR/1.73 sq M.predicted ramiro g non-blacks MDRD (S/P/Bld) [Vol rate/Area]Ordered By: Juancho Mendoza on 11-16-2024 Estimated GFR (MDRD) Non-Af Amer 25 Low >60 [facility] Comment on above: mL/min/1.73m2 CKD-EP I Creatinine Equation (2020) Glomerular filtration rate ( GFR) estimation/1.73 sq m using serum, plasma, or whole bOrdered By: Juancho Mendoza on 11-16-2024 GFR/1.73 sq M.predicted among non-blacks MDRD (S/P/Bld) [Vol rate/Area] 25 mL/min/{1.73_m2} Low >60 [facility] Comment on above: mL/min/1.73m2 CKD-EP I Creatinine Equation (2021) Hematocrit Auto (Bld) [Volum e fraction]Ordered By: Juancho Mendoza on 11-16-2024 Hematocrit (Bld) [Volume fraction] 29.9 % Low 37-47 [facility] Hemoglobin measurementOrdere d By: Juancho Mendoza on 11-16-2024 Hemoglobin (Bld) [Mass/Vol] 9.6 g/dL Low 12.0-15.0 [facility] Immature granulocytes/100 WB C Auto (Bld)Ordered By: Juancho Mendoza on 11-16-2024 Immature granulocytes/100 WBC (Bld) 0.300 % 0.0-0.9 [facility] Comment on above: IG% - Immature Granu locytes (promyelocytes, myelocytes and metamyelocytes) > 1% indicates that a LEFT SHIFT is Present. Lymphocytes Auto (Unsp spec) [#/Vol]Ordered By: Juancho Mendoza on 11-16-2024 Lymphocytes (Bld) [#/Vol] 2.01 10*3/uL 0.83-4.51 [facility] Lymphocytes/100 WBC Auto (Un sp spec)Ordered By: Juancho Mendoza on 11-16-2024 Lymphocytes/100 WBC (Bld) 16.8 % Low 19-41 [facility] MCV (mean corpuscular volume ) determinationOrdered By: Juancho Mendoza on 11-16-2024 MCV (RBC) [Entitic vol] 99.7 fL High 81-99 [facility] Mean corpuscular hemoglobin (MCH) determinationOrdered By: Juancho Mendoza on 11-16-2024 MCH (RBC) [Entitic mass] 32.0 pg 27.0-32.0 [facility] Mean corpuscular hemoglobin concentration (MCHC) determinationOrdered By: Juancho Mendoza on 11-16-2024 MCHC (RBC) [Mass/Vol] 32.1 g/dL 32-36 [facility] Mean platelet volume determi nationOrdered By: Juancho Mendoza on 11-16-2024 Platelet mean volume (Bld) [Entitic vol] 10.5 fL 6.2-12.0 [facility] Monocyte percentageOrdered B y: Juancho Mendoza on 11-16-2024 Monocytes/100 WBC (Bld) 6.5 % 0-10 [facility] Neutrophil percentageOrdered By: Juancho Mendoza on 11-16-2024 Neutrophils/100 WBC (Bld) 75.1 % High 47-70 [facility] Nucleated red blood cell per centageOrdered By: Juancho Mendoza on 11-16-2024 Nucleated RBC/100 WBC (Bld) [Ratio] 0 % 0-5 [facility] Platelet countOrdered By: St karen Mendoza on 11-16-2024 Platelets (Bld) [#/Vol] 289 10*3/uL 150-450 [facility] Potassium (Unsp spec) [Mass/ Vol]Ordered By: Juancho Mendoza on 11-16-2024 Potassium [Moles/Vol] 4.1 mmol/L 3.3-5.1 [facility] Potassium measurement (mass/ volume)Ordered By: Juancho Mendoza on 11-16-2024 Potassium (Unsp spec) [Mass/Vol] 4.1 mmol/L 3.3-5.1 [facility] RBC Auto (Bld) [#/Vol]Ordere d By: Juancho Mendoza on 11-16-2024 RBC (Bld) [#/Vol] 3.00 10*6/uL Low 4.2-5.4 [facility] Serum creatinine measurement (mass/volume)Ordered By: Juancho Mendoza on 11-16-2024 Creatinine [Mass/Vol] 1.98 mg/dL High 0.70-1.20 [facility] Serum glucose measurement (m ass/volume)Ordered By: Juancho Mendoza on 11-16-2024 Glucose [Mass/Vol] 157 mg/dL High 70-99 [facility] Serum or plasma calcium beth urement (mass/volume)Ordered By: Juancho Mendoza on 11-16-2024 Calcium [Mass/Vol] 7.9 mg/dL 7.6-11.0 [facility] Serum or plasma urea nitroge n measurement (mass/volume)Ordered By: Juancho Mendoza on 11-16-2024 Urea nitrogen [Mass/Vol] 31 mg/dL High 4-19 [facility] Sodium levelOrdered By: Layton Mendoza on 11-16-2024 Sodium [Moles/Vol] 136 mmol/L 133-145 [facility] White blood cell (WBC) count Ordered By: Juancho Mendoza on 11-16-2024 WBC (Bld) [#/Vol] 12.0 10*3/uL High 4.4-11.0 [facility] Abdomen/Pelvis without Conto n 11-15-2024 Abdomen/Pelvis without Cont [facility] [facility] [address] [place] [address] Abdomen/Pelvis without Cont MR#: [id number] Acct: [id number] Name: ADELA WELLS Rep #: [id number] : 1945 F 79 From: Brandyn dorado MD PCP: Dr. Carlo Diaz MD Status: [facility] ER Study: Abdomen/Pelvis without Cont Date of Exam: 11/06 Exam# [id number] Ordering Dr: Naa Woodruff PROCEDURE: ABDOMEN/PELVIS WITHOUT CONT REASON FOR EXAM: 2 day history of constipation and abdominal pain. TECHNIQUE: Abdomen and pelvis CT without intravenous contrast administration. IV CONTRAST: None COMPARISON: None. FINDINGS: Lung bases: Clear. Coronary artery calcification. Liver: Unremarkable. Gallbladder: Surgically absent. Spleen: Unremarkable. Pancreas: Unremarkable. Adrenals: Unremarkable. Kidneys: Unremarkable. Bladder: Unremarkable. Reproductive Organs: The patient is status post hysterectomy. Bowel: Colonic diverticulosis without diverticulitis. Small hiatal hernia. There is evidence of a moderate-sized right inguinal hernia containing a small bowel loop with fluid. Mild dilatation of the distal small bowel loops with fluid. Small amount of free fluid is seen in the pelvis. Appendix: Status post appendectomy. Lymph nodes: No suspicious lymph node enlargement. Vasculature: Extensive atherosclerotic calcification of the abdominal aorta as well as the major visceral vessels. 1.5 cm cyst in the posterior aspect of the right kidney. Peritoneum / Retroperitoneum: No ascites. No free air. Bones: Degenerative changes of the spine. CT/Abdomen/Pelvis without Cont IMPRESSION: Right inguinal hernia containing small bowel loop which is fluid-filled. Fluid is also seen within the herniated sac. Mildly dilated/fluid-filled distal small bowel loops. Sigmoid diverticulosis without evidence of diverticulitis at this time. Extensive atherosclerotic calcification of the abdominal aorta and the major visceral branches. One or more dose reduction techniques were used (e.g., Automated exposure control, adjustment of the mA and/or kV according to patient size, use of iterative reconstruction technique). Reading Location: [place] [address] CC: Dr. Carlo Diaz MD; LAYNE [employer] Central Office: Signed Normal [facility] Absolute neutrophil countOrd ered By: Naa Woodruff on 11-15-2024 Neutrophils (Bld) [#/Vol] 8.4 10*3/uL High 2.0-7.7 [facility] Anion gap in Serum or Plasma Ordered By: Naa Woodruff on 11-15-2024 Anion gap [Moles/Vol] 14 mmol/L 5-15 [facility] Automated blood erythrocyte countOrdered By: Naa Woodruff on 11-15-2024 RBC (Bld) [#/Vol] 3.72 10*6/uL Low 4.2-5.4 [facility] Comment on above: Performed By: #### L 100.0100, L501.5200, L501.4020, L500.2500 #### [facility] Laboratory [address] [place] [id number] Automated blood hematocrit ( percentage)Ordered By: Naa Woodruff on 11-15-2024 Hematocrit (Bld) [Volume fraction] 36.4 % Low 37-47 [facility] Comment on above: Performed By: #### L 100.0100, L501.5200, L501.4020, L500.2500 #### [facility] [address] [facility] [address] Automated lymphocyte count a s percentage of total leukocytesOrdered By: Naa Woodruff on 11-15-2024 Lymphocytes/100 WBC (Bld) 29.8 % Normal 19-41 [facility] Comment on above: Performed By: #### L 100.0100, L501.5200, L501.4020, L500.2500 #### [facility] [address] [facility] [address] BUN/creatinine ratioOrdered By: Naa Woodruff on 11-15-2024 Urea nitrogen/Creatinine [Mass ratio] 16.1 mg/mg 10-20 [facility] Basophil percentageOrdered B y: Naa Woodruff on 11-15-2024 Basophils/100 WBC (Bld) 0.4 % Normal 0-1 [facility] Comment on above: Performed By: #### L 100.0100, L501.5200, L501.4020, L500.2500 #### [facility] [address] [place], [address] Bedside Glucoseon 11-15-2024 FINGERSTICK GLU 142 mg/dL High 74-106 [facility] Comment on above: Result Comment: EDILBERTO GEMENT OF PATIENT CARE PER NURSING PROTOCOL Performed By: #### L 100.0100, L501.5200, L501.4020, L500.2500 #### [facility] [address] [place], [address] FINGERSTICK GLU 113 mg/dL High 74-106 [facility] Comment on above: Result Comment: EDILBERTO GEMENT OF PATIENT CARE PER NURSING PROTOCOL Performed By: #### L 501.080 ####[facility] [id number] [place], [address] Bilirubin Test strip Ql (U)O rdered By: Naa Lermashukrionelia on 11-15-2024 Bilirubin Ql (U) Negative Negative [facility] Bilirubin, totalOrdered By: Naa Lermashukrionelia on 11-15-2024 Bilirubin [Mass/Vol] 0.47 mg/dL Normal 0.00-1.30 [facility] Comment on above: Performed By: #### L 100.0100, L501.5200, L501.4020, L500.2500 #### [facility] [address] [place], [address] CBC W/Diff, Automatedon 11-06 Absolute Lymph 4.06 X10 3/uL Normal 0.83-4.51 [facility] Comment on above: Performed By: #### L 100.0100, L501.5200, L501.4020, L500.2500 #### [facility] [address] [place], [address] Absolute Neut 8.4 X10 3/uL High 2.0-7.7 [facility] Comment on above: Performed By: #### L 100.0100, L501.5200, L501.4020, L500.2500 #### [facility] [address] [place], [address] IG% 0.400 Normal 0.0-0.9 [facility] Comment on above: Result Comment: IG% - Immature Granulocytes (promyelocytes, myelocytes and metamyelocytes) > 1% indicates that a LEFT SHIFT is Present. Performed By: #### L 100.0100, L501.5200, L501.4020, L500.2500 #### [facility] [address] [place], [address] Nucleated RBC (Bld) [#/Vol] 0 10*3/uL Normal 0-5 [facility] Comment on above: Performed By: #### L 100.0100, L501.5200, L501.4020, L500.2500 #### [facility] [address] [place], [address] RDW SD 51.2 fl High 35.1-43.9 [facility] Comment on above: Performed By: #### L 100.0100, L501.5200, L501.4020, L500.2500 #### [facility] [address] [place], [address] Carbon dioxide, total [Moles /volume] in Central venous bloodOrdered By: Naa Woodruff on 11-15-2024 CO2 [Moles/Vol] 19.5 mmol/L Low 21.0-32.0 [facility] Comment on above: Performed By: #### L 100.0100, L501.5200, L501.4020, L500.2500 #### [facility] [address] [place], [address] Chloride assayOrdered By: Avis Woodruff on 11-15-2024 Chloride [Moles/Vol] 101 mmol/L Normal 98-108 [facility] Comment on above: Performed By: #### L 100.0100, L501.5200, L501.4020, L500.2500 #### [facility] [address] [place], [address] Comprehensive Metabolic Prof ilon 11-15-2024 ALK PHOS 109 U/L High 35-104 [facility] Comment on above: Performed By: #### L 100.0100, L501.5200, L501.4020, L500.2500 #### [facility] [address] [place], [address] BUN/CRE 16.1 RATIO Normal 10-20 [facility] Comment on above: Performed By: #### L 100.0100, L501.5200, L501.4020, L500.2500 #### [facility] [address] [place], [address] ECRCL 17.54 ml/min Low 50-250 [facility] Comment on above: Performed By: #### L 100.0100, L501.5200, L501.4020, L500.2500 #### [facility] [address] [place], [address] GAP 14 Normal 5-15 [facility] Comment on above: Performed By: #### L 100.0100, L501.5200, L501.4020, L500.2500 #### [facility] [address] [place], [address] GFR/1.73 sq M.predicted among non-blacks MDRD (S/P/Bld) [Vol rate/Area] 20 mL/min/{1.73_m2} Low >60 [facility] Comment on above: Result Comment: mL/m in/1.73m2 CKD-EPI Creatinine Equation (2020) Performed By: #### L 100.0100, L501.5200, L501.4020, L500.2500 #### [facility] [address] [place], [address] T PROT 7.1 g/dL Normal 5.9-8.4 [facility] Comment on above: Performed By: #### L 100.0100, L501.5200, L501.4020, L500.2500 #### [facility] [address] [place], [address] Comprehensive Metabolic Prof ilOrdered By: Naa Woodruff on 11-15-2024 AST [Catalytic activity/Vol] 23 U/L Normal <=31 [facility] Comment on above: Performed By: #### L 100.0100, L501.5200, L501.4020, L500.2500 #### [facility] [address] [place], [address] Emergency Department Summary on 11-15-2024 Emergency Department Summary [facility] Medical Records Department [address] [facility] [place] [address] Emergency Department Summary 11/15/24 MR#: [id number] Acct: [id number] Name: ADELA WELLS Rep #: [id number] : 1945 79 From: Naa TILLMAN PCP: Dr. Carlo Diaz MD Status:ADM NEISHA Location: [address] History of Present Illness Chief Complaint: Abd Pain Narrative Narrative: 79-year-old female with PMH of HTN, HLD, COPD, DM2, CHF, hypothyroidism, multiple abdominal surgeries presents with 3 days of abdominal pain. It started as generalized abdominal pain and then moved to the periumbilical and lower abdomen. She has nausea and decreased appetite but no vomiting. She has not had a bowel movement in 4 to 5 days. She states she usually only goes every few days but this is longer than usual. She took 2 doses of Senokot. She is passing gas. She has a history of cholecystectomy, appendectomy, hernia repair, tubal ligation, and hysterectomy. No history of bowel obstruction. She states she has felt a hernia in her abdomen for years but now it is painful. 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 Obesity Atherosclerosis of coronary artery bypass graft without angina pectoris Essential hypertension Type 2 diabetes mellitus without complication Vertigo GERD (gastroesophageal reflux disease) Asthma Hyperlipidemia Hypothyroidism Home Medications ???Medication ???Instructions ???Recorded ???Last Taken ???Type montelukast 10 mg tablet 10 mg PO DAILY PRN ASTHMA 12/17/13 11/13/24 History aspirin 81 mg tablet,delayed 81 mg PO DAILY HEART HEALTH 11/13/24 History release cetirizine 10 mg tablet (Zyrtec) 10 mg PO DAILY PRN allergies 02/1406/09/24 History allopurinol 100 mg tablet 100 mg PO DAILY GOUT 11/22/2105/02 History ipratropium 20 mcg-albuterol 100 1 puff inhalation Q6H BREATHING 11/13/24 History mcg/actuation mist for inhalation (Combivent Respimat) ferrous sulfate 325 mg (65 mg 325 mg PO DAILY SUPPLEMENT 3 11/13/24 History iron) tablet furosemide 40 mg tablet (Lasix) 40 mg PO DAILY diuretic 12/25/22 0 11/13/24 History cholecalciferol (vitamin D3) 25 25 mcg PO SUTUTHSA vitamin 3 11/13/24 History mcg (1,000 unit) tablet omeprazole 20 mg capsule,delayed 20 mg PO DAILY reflux 11/04/2305/02 History release ezetimibe 10 mg tablet (Zetia) 10 mg PO DAILY 02/27/24 11/13/24 H istory prednisone 5 mg tablet 5 mg PO DAILY 02/27/24 11/13/24 Hi story albuterol sulfate 2.5 mg/3 mL 1.25 mg inhalation TID PRN 4 11/15/24 History (0.083 %) solution for nebulization shortness of breath or wheezing ipratropium bromide 0.02 % 0.5 mg inhalation TID PRN 05/09/24 11/13/24 History solution for inhalation shortness of breath or wheezing biotin 10,000 mcg capsule 10,000 mcg PO DAILY 06/10/2411/13 History folic acid 1 mg tablet 1 mg PO DAILY 06/10/24 11/13/24 Hi story glipizide 2.5 mg tablet, extended 2.5 mg PO BID 06/10/24 11/13/24 H istory release 24 hr amlodipine 5 mg tablet 5 mg PO DAILY 08/25/24 11/13/24 Hi story spironolactone 25 mg tablet 25 mg PO QDAY HEART 08/25/2411/13 History levothyroxine 100 mcg tablet 100 mcg PO DAILY 11/15/24 11/13/24 History metoprolol tartrate 50 mg tablet 50 mg PO DAILY 11/15/24 11/13/24 H istory Allergy/AdvReac Type Severity Reaction Status Date / Time Anesthetics - Amide Type - Allergy Other Verified 08/25/24 15:01 Select A (Anesthetics - Amide Type) acetaminophen (From Tylenol) AdvReac Severe Other Verified 08/25/24 15:01 pravastatin AdvReac Intermediate Myalgias Verified 08/25/24 15:01 after 15 years of taking cinnamon AdvReac Unknown Unknown Verified 08/25/24 15:01 Penicillins AdvReac Unknown Unknown Verified 08/25/24 15:01 ezetimibe (From Zetia) AdvReac myalgias Verified 08/25/24 15:01 leflunomide AdvReac Chest Verified 08/25/24 15:04 tightness Family History Mother , age 86, advanced age No problems noted. Father Prostate cancer Surgical History History of coronary artery stent (more content not included)... Normal [facility] Eosinophil percentageOrdered By: Naa Woodruff on 11-15-2024 Eosinophils/100 WBC (Bld) 1.4 % Normal 0-5 [facility] Comment on above: Performed By: #### L 100.0100, L501.5200, L501.4020, L500.2500 #### [facility] Laboratory [address] [place], [place], [address] Epithelial cells.squamous LM Ql (Urine sed)Ordered By: Naa Woodruff on 11-15-2024 Epithelial cells.squamous LM.HPF (Urine sed) [#/Area] 10 /[HPF] 5-10 [facility] Erythrocyte distribution wid th ratioOrdered By: Naa Woodruff on 11-15-2024 Erythrocyte distribution width (RBC) [Ratio] 14.2 % Normal 11.6-14.6 [facility] Comment on above: Performed By: #### L 100.0100, L501.5200, L501.4020, L500.2500 #### [facility] [address] [place], [place], [address] Erythrocyte distribution wid th standard deviationOrdered By: Naa Woodruff on 11-15-2024 Erythrocyte distribution width (RBC) [Entitic vol] 51.2 fL High 35.1-43.9 [facility] Estimation of creatinine vibha aranceOrdered By: Naa Woodruff on 11-15-2024 Estimated Creatinine Clearance Calc 17.54 ml/min Low 50-250 [facility] GFR/1.73 sq M.predicted ramiro g non-blacks MDRD (S/P/Bld) [Vol rate/Area]Ordered By: Naa Woodruff on 11-15-2024 Estimated GFR (MDRD) Non-Af Amer 20 Low >60 [facility] Comment on above: mL/min/1.73m2 CKD-EP I Creatinine Equation (2020) Glucose Ql (U)Ordered By: Avis Woodruff on 11-15-2024 Urine Glucose (UA) Normal mg/dl Normal [facility] By: Juancho Mendoza on 11-15-2024 Bedside Glucose (Misc Panel) 142 mg/dL High 74-106 [facility] Comment on above: MANAGEMENT OF PATIEN T CARE PER NURSING PROTOCOL Glucose [Mass/Vol] 142 mg/dL High 74-106 [facility] Comment on above: MANAGEMENT OF PATIEN T CARE PER NURSING PROTOCOL Hemoglobin measurementOrdere d By: Naa Woodrfuf on 11-15-2024 Hemoglobin (Bld) [Mass/Vol] 11.7 g/dL Low 12.0-15.0 [facility] Comment on above: Performed By: #### L 100.0100, L501.5200, L501.4020, L500.2500 #### [facility] [address] [place] [address], [address] Hyaline casts LM.LPF (Urine sed) [#/Area]Ordered By: Naa Woodruff on 11-15-2024 Hyaline casts (Urine sed) [#/Area] 0 /[LPF] 0-5 [facility] Hyaline casts LM Ql (Urine sed) 0-5 SEEN /lpf 0-5 [facility] Immature granulocytes/100 WB C Auto (Bld)Ordered By: Naa Woodruff on 11-15-2024 Immature granulocytes/100 WBC (Bld) 0.400 % 0.0-0.9 [facility] Comment on above: IG% - Immature Granu locytes (promyelocytes, myelocytes and metamyelocytes) > 1% indicates that a LEFT SHIFT is Present. Ketones Test strip Ql (U)Ord ered By: Naa Woodruff on 11-15-2024 Ketones Ql (U) Negative Negative [facility] Lactic Acidon 11-15-2024 Lactate [Moles/Vol] 2.1 mmol/L High 0.0-2.0 [facility] Comment on above: Order Comment: 'TROP ' Serial specimen #1, #2 or #3: 1 Performed By: #### L 100.0100, L501.5200, L501.4020, L500.2500 #### [facility] [address] [place] [place], [address] Lactic acid measurementOrder ed By: Naa Woodruff on 11-15-2024 Lactate [Moles/Vol] 2.1 mmol/L High 0.0-2.0 [facility] Lymphocytes Auto (Unsp spec) [#/Vol]Ordered By: Naa Woodruff on 11-15-2024 Lymphocytes (Bld) [#/Vol] 4.06 10*3/uL 0.83-4.51 [facility] MCV (mean corpuscular volume ) determinationOrdered By: Naa Woodruff on 11-15-2024 MCV (RBC) [Entitic vol] 97.8 fL Normal 81-99 [facility] Comment on above: Performed By: #### L 100.0100, L501.5200, L501.4020, L500.2500 #### [facility] [address] [place], [address] MR/POSTOP.ANEon 11-15-2024 MR/POSTOP.[facility] Medical Records Department [address] [place] [address] Anesthesia Postop Eval I 11/15/241757 MR#: [id number] Acct: [id number] Name: ADELA WELLS Rep #: [id number] : 1945 79 From: Erasmo Ramírez MD PCP: Dr. Carlo Diaz MD Status:REG SDC Y Race: C Location: Anesthesia: Postop Eval I Current Vital Signs Temperature: 97.4 F Pulse Rate: 75 Blood Pressure: 138/60 Respiratory Rate: 16 Pulse Ox: 100 Oxygen Flow Rate (L/min): 2 Assessment Airway patent: Yes Spontaneous unlabored respirations: Yes nausea: No Vomiting: No Anesthesia Complication: No Fluid Hydration Crystalloid volume administer (ml): 1,000 Total IV fluid infused: 1,000 Progress Note Anesthesia document: Postop Eval 1 completed: Yes 11/15/241758 Date Erasmo Nathan Signature: Date CC: Signed Normal [facility] MR/[id number] 11-15-2024 MR/POSTOPAN2 [facility] Medical Records Department [address] [place] [address] Anesthesia Postop Eval II 11/15/241758 MR#: [id number] Acct: [id number] Name: ADELA WELLS Rep #: [id number] : 1945 79 From: Erasmo Ramírez MD PCP: Dr. Carlo Diaz MD Status:REG [facility] Y Race: C Location: Anesthesia Postop Eval I Sum Postop Eval Completion status Anesthesia document: Postop Eval 1 completed: Yes Anesthesia Postop Eval I Summary Anesthesia Postop Eval I Summary: Anesthesia Postop Eval I: Assessment Summary Airway patent Yes 11/15/24 17:59 Spontaneous unlabored Yes 11/15/24 17:59 respirations Mental status nausea No 11/15/24 17:59 Vomiting No 11/15/24 17:59 Anesthesia Postop Eval I: Fluid Summary Crystalloid volume administer 1,000 11/15/24 17:59 (ml) Colloids volume administered ( ml) Blood Product volume administered (ml) Total IV fluid infused 1,000 11/15/24 17:59 Anesthesia Postop Eval I: Summary Notes Anesthesia Complication No 11/15/24 17:59 Anesthesia Complication Comment: Post-operative progress note Anesthesia: Postop Eval II Evaluation Mental status: Awake Pain Level: 2 nausea: No Vomiting: No 11/15/241758 Erasmo Alcantar Signature: Date CC: Signed Normal [facility] Mean corpuscular hemoglobin (MCH) determinationOrdered By: Naa Woodruff on 11-15-2024 MCH (RBC) [Entitic mass] 31.5 pg Normal 27.0-32.0 [facility] Comment on above: Performed By: #### L 100.0100, L501.5200, L501.4020, L500.2500 #### [facility] [address] [facility] [place], [place], [address] Mean corpuscular hemoglobin concentration (MCHC) determinationOrdered By: Naa Woodruff on 11-15-2024 MCHC (RBC) [Mass/Vol] 32.1 g/dL Normal 32-36 [facility] Comment on above: Performed By: #### L 100.0100, L501.5200, L501.4020, L500.2500 #### [facility] [address] [facility] [place], [place], [address] Mean platelet volume determi nationOrdered By: Naa Woodruff on 11-15-2024 Platelet mean volume (Bld) [Entitic vol] 10.2 fL Normal 6.2-12.0 [facility] Comment on above: Performed By: #### L 100.0100, L501.5200, L501.4020, L500.2500 #### [facility] [address] [facility] [place], [place], [address] Microscopic analysis of urin e for red blood cells (RBC)Ordered By: Naa Woodruff on 11-15-2024 Microscopic analysis of urine for red blood cells (RBC) 5-10 SEEN /hpf 0-5 [facility] Urine RBC 5-10 SEEN /hpf 0-5 [facility] Monocyte percentageOrdered B y: Naa Lermajudit on 11-15-2024 Monocytes/100 WBC (Bld) 6.2 % Normal 0-10 [facility] Comment on above: Performed By: #### L 100.0100, L501.5200, L501.4020, L500.2500 #### [facility] [address] [place], [address] Mucus LM Ql (Urine sed)Order ed By: Naa Ranjan on 11-15-2024 Mucus Ql (Urine sed) 0 SEEN /hpf [facility] Neutrophil percentageOrdered By: Naa Ranjan on 11-15-2024 Neutrophils/100 WBC (Bld) 61.8 % Normal 47-70 [facility] Comment on above: Performed By: #### L 100.0100, L501.5200, L501.4020, L500.2500 #### [facility] [address] [place], [address] Nitrite Test strip Ql (U)Ord ered By: Naa Ranjan on 11-15-2024 Nitrite Ql (U) Negative Negative [facility] Nucleated red blood cell per centageOrdered By: Naa Ranjan on 11-15-2024 Nucleated RBC/100 WBC (Bld) [Ratio] 0 % 0-5 [facility] Operative Reporton Operative Report [facility] Medical Records Department [address] [place] [address] Operative Report 11/15/24 1839 MR#: [id number] Acct: [id number] Name: ADELA WELLS Rep #: [id number] : 1945 79 From: Juancho Mendoza MD PCP: Dr. Carlo Diaz MD Status:ADM NEISHA [facility] Dig[facility] 40xxx-49xxx: [address] RPR AA HRN 11-15 NCR/STRN Operative Report (Standard) Operative Information Date of Procedure: 11/15/24 Pre-Operative Diagnosis: Incarcerated ventral hernia Post-Operative Diagnosis: Same Surgery/Procedure Performed: Open right lower quadrant ventral hernia repair conference services coordinator: Yes Tabber: Huber Scruggs Tasks completed by culture media laboratory assistant: Closing, Hemostasis: Electrocautery and Retracting Additional pediatric dental assistant?: No Type of Anesthesia: General RN Documented Start/Stop Times: Operation Date: 11/15/24 15:45 Case Time Into Pre-Op 11/15/24 15:45 Anesthesia Start 11/15/24 16:07 Into Room 11/15/24 16:07 Procedure Start 11/15/24 16:30 Procedure End 11/15/24 17:45 Anesthesia End 11/15/24 17:50 Out of Room 11/15/24 17:50 Into Recovery 11/15/24 17:53 Out of Recovery 11/15/24 18:32 Procedure Start Time: 16:30 Procedure Stop Time: 17:45 Select all DRAINS/GRAFTS/IMPLAN TS that apply: None Special Medications: Ancef IV Estimated Blood Loss: 25 mL Specimen collected: Yes Description of specimen(s) removed: Hernia sac Description of surgery: The patient is an 79-year-old female who presents to the emergency department earlier today with about 3 days of abdominal pain along with nausea. ER workup included CT scan which showed what appeared to be incarcerated right lower quadrant hernia containing a small segment of small bowel possibly related to a small bowel obstruction. Patient had known that she had a hernia but this really had not caused her any pain or problems until a few days ago. Surgical repair was offered to her as this was not reducible. We discussed the details of the planned surgery including risk benefits and alternatives. She wished to proceed. Patient was brought to the op room today following informed consent. Antibiotics were given and a timeout was performed. She was placed supine on the operative table with arms outstretched on arm boards. The abdomen is then prepped and draped in the usual sterile manner. A transverse incision was made overlying the hernia. Bovie electrocautery was then used dissect down through subcutaneous tissues. The overall size of the hernia was about 7 to 8 cm however the fascial defect seemed probably closer to 3 to 4 cm. The entire hernia sac was cleared down to the neck of the hernia. At this point the hernia sac was incised. This contained mostly fat. On CT scan there was a loop of bowel but this seemed to have spontaneously reduced by this point. I suspect when she was asleep this may have reduced. The hernia sac was excised along with some of the adherent contents which was mostly omentum. This omentum was transected and tied using 0 Vicryl suture. The small bowel in this vicinity was brought up through the fascial defect. I did extend the fascia several centimeters in order to visualize the bowel. There was clearly a knuckle of bowel that was chronically kinked as there were adhesions. This adhesions were taken down using rectal cautery. The bowel was clearly viable and healthy. This was returned back to the abdomen and the fascial defect was closed primarily using #1 Ethibond. These were placed in a interrupted [id number] manner. This closed the fascial defect nicely. The wound was then copiously irrigated. Hemostasis was excellent. The wound was then closed in layers using 3-0 Vicryl and then 4-0 Vicryl was run in the skin. Skin glue was then applied. A Mepilex dressing was applied on top of this. And then finally an abdominal binder was applied. She was awakened from anesthesia and taken to recovery in good condition. A ENROLLMENT CONSULTANT was utilized as a assistant nurse manager. Her role included retraction and assistance with wound closure. Surgical Findings: Right lower quadrant hernia. Fascial defect size is about 3 cm Complications Complications: No Admit VTE Documentation VTE Present on Admission: No VTE Mechan Device Prophylaxis: SCD's VTE Pharm Prophylaxis ordered?: No Reason prophylaxis not ordered: Treatment Not Indicated 11/15/247 Cosigner Signature (if applicable): CC: Dr. Carlo Diaz MD; Dr. Juancho Mendoza MD Signed Normal [facility] Platelet countOrdered By: Avis Woodruff on 11-15-2024 Platelets (Bld) [#/Vol] 341 10*3/uL Normal 150-450 [facility] Comment on above: Performed By: #### L 100.0100, L501.5200, L501.4020, L500.2500 #### [facility] [address] [place], [address] Potassium measurement (mass/ volume)Ordered By: Naa Woodruff on 11-15-2024 Potassium [Moles/Vol] 4.2 mmol/L Normal 3.3-5.1 [facility] Comment on above: Performed By: #### L 100.0100, L501.5200, L501.4020, L500.2500 #### [facility] [address] [place], [address] Protein Test strip Ql (U)Ord ered By: Naa Woodruff on 11-15-2024 Protein Ql (U) 30 mg/dl High Negative [facility] Serum creatinine measurement (mass/volume)Ordered By: Naa Woodruff on 11-15-2024 Creatinine [Mass/Vol] 2.36 mg/dL High 0.70-1.20 [facility] Comment on above: Performed By: #### L 100.0100, L501.5200, L501.4020, L500.2500 #### [facility] [address] [place], [address] Serum globulin measurementOr dered By: Naa Woodruff on 11-15-2024 Globulin (S) [Mass/Vol] 3.4 g/dL Normal 2.2-4.2 [facility] Comment on above: Performed By: #### L 100.0100, L501.5200, L501.4020, L500.2500 #### [facility] [address] [facility] [place], [address] Serum glucose measurement (m ass/volume)Ordered By: Naa Woodruff on 11-15-2024 Glucose [Mass/Vol] 164 mg/dL High 70-99 [facility] Comment on above: Performed By: #### L 100.0100, L501.5200, L501.4020, L500.2500 #### [facility] [address] [facility] [place], [address] Serum or plasma alanine ross otransferase (ALT) measurementOrdered By: Naa Woodruff on 11-15-2024 ALT [Catalytic activity/Vol] 14 U/L Normal <=34 [facility] Comment on above: Performed By: #### L 100.0100, L501.5200, L501.4020, L500.2500 #### [facility] [address] [place], [address] Serum or plasma albumin beth urement (mass/volume)Ordered By: Naa Woodruff on 11-15-2024 Albumin [Mass/Vol] 3.7 g/dL Normal 3.4-4.8 [facility] Comment on above: Performed By: #### L 100.0100, L501.5200, L501.4020, L500.2500 #### [facility] [address] [place], [address] Serum or plasma albumin/glob ulin mass ratioOrdered By: Naa Woodruff on 11-15-2024 Albumin/Globulin [Mass ratio] 1.1 {ratio} Normal 0.9-2.4 [facility] Comment on above: Performed By: #### L 100.0100, L501.5200, L501.4020, L500.2500 #### [facility] [address] [facility] [place], [address] Serum or plasma alkaline kan sphatase measurementOrdered By: Naa Woodruff on 11-15-2024 ALP [Catalytic activity/Vol] 109 U/L High 35-104 [facility] Serum or plasma calcium beth urement (mass/volume)Ordered By: Naa Woodruff on 11-15-2024 Calcium [Mass/Vol] 9.1 mg/dL Normal 7.6-11.0 [facility] Comment on above: Performed By: #### L 100.0100, L501.5200, L501.4020, L500.2500 #### [facility] [address] [place], [address] Serum or plasma urea nitroge n measurement (mass/volume)Ordered By: Naa Woodruff on 11-15-2024 Urea nitrogen [Mass/Vol] 38 mg/dL High 4-19 [facility] Comment on above: Performed By: #### L 100.0100, L501.5200, L501.4020, L500.2500 #### [facility] [address] [place], [address] Sodium levelOrdered By: Naa Woodruff on 11-15-2024 Sodium [Moles/Vol] 135 mmol/L Normal 133-145 [facility] Comment on above: Performed By: #### L 100.0100, L501.5200, L501.4020, L500.2500 #### [facility] [address] [place], [address] Squamous epithelial cells de tection in urine sediment by light microscopyOrdered By: Naa Woodruff on 11-15-2024 Epithelial cells.squamous LM Ql (Urine sed) 10-25 SEEN /hpf 5-10 [facility] Surgery Specimen Level IIon 11-15-2024 Surgery Specimen Level II Patient Age/Sex Location Account Attending Physician ADELA WELLS 79/F MS3 [id number] Dr. Juancho Mendoza MD Specimen: [id number] Received: 11/15/24 Status: SHORTY Carrasquillo Num: [id number] Spec Type: Hernia Subm Dr: Dr. Juancho Mendoza MD HEADER OPERATION: Hernia, ventral repair PRE-OP DIAGNOSIS: Incarcerated abdominal hernia TISSUE SUBMITTED: Hernia sac MICROSCOPIC DIAGNOSIS HERNIA SAC, EXCISION: * Fibroadipose tissue with reactive changes, partially covered by mesothelium. MICROSCOPIC DESCRIPTION Slides are reviewed. GROSS DESCRIPTION The specimen is received in one container labeled with the patient's name, accession number and designated hernia sac. The specimen consists of 1 irregularly-shaped segment of yellow fatty tissue measuring 19 x 6 x 2.5 cm. Approximately half of it is covered with a thin semitransparent purple-alfaro membrane with focal adhesions. Sectioning reveals unremarkable yellow fatty tissue throughout. RS1. EH 11/16/24. CPT: 10596 Patient Age/Sex Location Account Attending Physician ADELA WELLS 79/F MS3 [id number] Dr. Juancho Mendoza MD Signed (signature on file) Dr. Chrissy Deleon MD 11/22/24 0854 Normal [facility] Comment on above: Performed By: #### P SUII ####[facility] [id number] [facility] [place], [place], [id number] Total proteinOrdered By: Amy Woodruff on 11-15-2024 Protein [Mass/Vol] 7.1 g/dL 5.9-8.4 [facility] Urinalysis, Completeon 11-15 BACTERIA 1+ /hpf Normal None Seen [facility] Comment on above: Order Comment: 'TROP ' Serial specimen #1, #2 or #3: 1 Performed By: #### L 100.0100, L501.5200, L501.4020, L500.2500 #### [facility] [address] [facility] [place], [address] CAST,HYALINE 0-5 SEEN Normal 0-5 [facility] Comment on above: Order Comment: 'TROP ' Serial specimen #1, #2 or #3: 1 Performed By: #### L 100.0100, L501.5200, L501.4020, L500.2500 #### [facility] [address] [place], [address] EPI,SQUAMOUS 10-25 SEEN Normal 5-10 [facility] Comment on above: Order Comment: 'TROP ' Serial specimen #1, #2 or #3: 1 Performed By: #### L 100.0100, L501.5200, L501.4020, L500.2500 #### [facility] [address] [place], [address] RBC 5-10 SEEN Normal 0-5 [facility] Comment on above: Order Comment: 'TROP ' Serial specimen #1, #2 or #3: 1 Performed By: #### L 100.0100, L501.5200, L501.4020, L500.2500 #### [facility] [address] [place], [address] WBC >100 SEEN Normal 0-5 [facility] Comment on above: Order Comment: 'TROP ' Serial specimen #1, #2 or #3: 1 Performed By: #### L 100.0100, L501.5200, L501.4020, L500.2500 #### [facility] [address] [place], [address] Mucus Ql (Urine sed) 0 SEEN Normal [facility] Comment on above: Order Comment: 'TROP ' Serial specimen #1, #2 or #3: 1 Performed By: #### L 100.0100, L501.5200, L501.4020, L500.2500 #### [facility] [address] [place], [address] Urine blood detectionOrdered By: Naa Woodruff on 11-15-2024 Urine Occult Blood 10 /ul High Negative [facility] Urine clarityOrdered By: Amy Woodruff on 11-15-2024 Clarity (U) Sl. Cloudy Clear [facility] Urine color determinationOrd ered By: Naa Woodruff on 11-15-2024 Color (U) Yellow Yellow [facility] Urine glucose detectionOrder ed By: Naa Woodruff on 11-15-2024 Glucose Ql (U) Normal mg/dl Normal [facility] Urine leukocyte esterase det ection by dipstickOrdered By: Naa Woodruff on 11-15-2024 Leukocyte esterase Test strip Ql (U) 500 /ul High Negative [facility] Urine pHOrdered By: Naa spain on 11-15-2024 pH (U) 6.0 [pH] 5.0 - 8.0 [facility] Urine sediment bacteria coun t by microscopy (number/high power field)Ordered By: Naa Woodruff on 11-15-2024 Bacteria LM.HPF (Urine sed) [#/Area] 1 /[HPF] None Seen [facility] Urine specific gravity measu rementOrdered By: Naa Woodruff on 11-15-2024 Specific gravity (U) [Rel density] 1.015 1.002-1.030 [facility] Urine urobilinogen measureme ntOrdered By: Naa Woodruff on 11-15-2024 Urobilinogen Ql (U) Normal mg/dl Normal [facility] Urobilinogen Ql (U)Ordered B y: Naa Woodruff on 11-15-2024 Urine Urobilinogen Normal mg/dl Normal [facility] White blood cell (WBC) count Ordered By: Naa Woodruff on 11-15-2024 WBC (Bld) [#/Vol] 13.6 10*3/uL High 4.4-11.0 [facility] Comment on above: Performed By: #### L 100.0100, L501.5200, L501.4020, L500.2500 #### [facility] [address] [place], [address] White blood cell countOrdere d By: Naa Woodruff on 11-15-2024 Urine WBC >100 SEEN /hpf 0-5 [facility] White blood cell count >100 SEEN /hpf 0-5 [facility] PTH, INTACT [CCL]on 01-18-20 25 PTH, Intact 61 pg/mL Normal 15-65 [facility] Comment on above: Result Comment: [facility] [address] [place] [address] Brock Chavez III, M.D. [id number] Performed By: #### 2 01772 #### [facility],[address] [place] [address] 18659 BMP with eGFRon 09-24-2024 AGE [address] [facility] Comment on above: Performed By: #### 2 10632 #### [facility],[address] [place] [address]25[address] Anion gap [Moles/Vol] 14 mmol/L Normal 10 - 20 [facility] Comment on above: Performed By: #### 2 41219 #### [facility],[address] [place] [address] 61149 BMP with eGFR Normal [facility] Comment on above: Result Comment: BASI C METABOLIC PANEL Performed By: #### 2 47522 #### [facility],[address] [place] [address] Calcium [Mass/Vol] 8.9 mg/dL Normal 8.5 - 10.1 [facility] Comment on above: Performed By: #### 2 03512 #### [facility],[address] [place] [address] Chloride [Moles/Vol] 101 mmol/L Normal 98 - 107 [facility] Comment on above: Performed By: #### 2 27939 #### [facility],[address] [place] [address] 71327 CO2 [Moles/Vol] 27.4 mmol/L Normal 21.0 - 32.0 [facility] Comment on above: Performed By: #### 2 86380 #### [facility],[address] [place] [address] Creatinine [Mass/Vol] 2.37 mg/dL High 0.55 - 1.02 [facility] Comment on above: Performed By: #### 2 03341 #### [facility],[address] [place] [address] 09916 eGFR 20 ML/MINUTE Low 60 - 999 [facility] Comment on above: Performed By: #### 2 48478 #### [facility],[address] [place] [address] 27040 eGFR(AA) 24 ML/MINUTE Low 60 - 999 [facility] Comment on above: Result Comment: ACCO RDING TO THE NATIONAL KIDNEY DISEASE EDUCATION PROGRAM(NKDE), A NORMAL eGFR IS A VALUE GREATER THAN OR EQUAL TO 60 ML/MIN/1.73 SQ METERS. CHRONIC KIDNEY DISEASE: <60mL/MIN/1.73 SQ METERS KIDNEY FAILURE: <15mL/MIN/1.73 SQ METERS THIS TEST SHOULD ONLY BE USED FOR PATIENTS 18 YEARS OF AGE AND OLDER. Performed By: #### 2 47169 #### [address] [address] Glucose [Mass/Vol] 246 mg/dL High 74 - 106 [facility] Comment on above: Performed By: #### 2 84231 #### [address] [address] Potassium [Moles/Vol] 4.9 mmol/L Normal 3.5 - 5.1 [facility] Comment on above: Performed By: #### 2 45743 #### [address] [address] Sodium [Moles/Vol] 137 mmol/L Normal 136 - 145 [facility] Comment on above: Performed By: #### 2 05684 #### [address] [address] Urea nitrogen [Mass/Vol] 40 mg/dL High 7 - 18 [facility] Comment on above: Performed By: #### 2 73890 #### [address] [address] CBC + DIFFon 09-24-2024 Baso # 0.05 x10EE3/UL Normal 0.00 - 0.10 [facility] Comment on above: Performed By: #### 2 06279 #### [facility],[address] [place] [address]86[address] Basophils/100 WBC (Bld) 0.4 % Normal 0.0 - 2.0 [facility] Comment on above: Performed By: #### 2 58714 #### [facility],[address] [place] [address] CBC + DIFF Normal [facility] Comment on above: Result Comment: CBC- COMPLETE BLOOD COUNT Performed By: #### 2 09544 #### [facility],[address] [place] [address] EO # 0.04 x10EE3/UL Normal 0.00 - 0.50 [facility] Comment on above: Performed By: #### 2 52850 #### [facility],[address] [place], [place] [address] Eosinophils/100 WBC (Bld) 0.3 % Normal 0.0 - 7.0 [facility] Comment on above: Performed By: #### 2 51945 #### [facility],[address] [place] [address] Erythrocyte distribution width (RBC) [Ratio] 14.1 % Normal 12.0 - 15.6 [facility] Comment on above: Performed By: #### 2 00081 #### [facility],[address] [place] [address] Hematocrit (Bld) [Volume fraction] 33.2 % Low 34.0 - 46.0 [facility] Comment on above: Performed By: #### 2 45803 #### [facility],[address] [place], [place] [address] Hemoglobin (Bld) [Mass/Vol] 10.7 g/dL Low 12.0 - 16.0 [facility] Comment on above: Performed By: #### 2 60026 #### [facility],[address] [place] [address] 76[address] Lymph # 2.97 x10EE3/UL High 0.80 - 2.80 [facility] Comment on above: Performed By: #### 2 22753 #### [facility],[address] [place] [address] 13057 Lymphocytes/100 WBC (Bld) 24.6 % Normal 20.0 - 45.0 [facility] Comment on above: Performed By: #### 2 18339 #### [facility],[address] [place] [address] MANUAL DIFF N/A Normal [facility] Comment on above: Performed By: #### 2 82727 #### [facility],[address] [place] [address] MCH (RBC) [Entitic mass] 32 pg Normal 27 - 33 [facility] Comment on above: Performed By: #### 2 65141 #### [facility],[address] [place] [address] MCHC 32 X10 3 Normal 32 - 36 [facility] Comment on above: Performed By: #### 2 51823 #### [facility],[address] [place] [address] MCV (RBC) [Entitic vol] 99 fL Normal 80 - 99 [facility] Comment on above: Performed By: #### 2 77429 #### [facility],[address] [place] [address] 979[address] Burnett # 0.48 x10EE3/UL Normal 0.20 - 1.00 [facility] Comment on above: Performed By: #### 2 02698 #### [facility],[address] [place] [address] 65120 MONOS % 4.0 % Normal 0.0 - 10.0 [facility] Comment on above: Performed By: #### 2 31054 #### [facility],[address] [place] [address] 29767 Morphology Hayden (Bld) [Interp] N/A Normal [facility] Comment on above: Performed By: #### 2 41886 #### [facility],[address] [place] [address] 20257 Neut # 8.53 x10EE3/UL High 1.50 - 7.10 [facility] Comment on above: Performed By: #### 2 53211 #### [facility],[address] [place] [address] 05595 Neutrophils/100 WBC (Bld) 70.6 % Normal 46.0 - 76.0 [facility] Comment on above: Performed By: #### 2 40742 #### [facility],[address] [place] [address] 45695 PLATELET 339 x10EE3/UL Normal 150 - 450 [facility] Comment on above: Performed By: #### 2 27225 #### [facility],[address] [place] [address] 26601 Platelet mean volume (Bld) [Entitic vol] 8.5 fL Normal 6.6 - 10.5 [facility] Comment on above: Result Comment: AUTO MATED DIFFERENTIAL Performed By: #### 2 92471 #### [facility],[address] [place] [address] 46523 RBC 3.35 x 10EE6/UL Low 4.10 - 5.30 [facility] Comment on above: Performed By: #### 2 69810 #### [facility],[address] [place] [address] 66854 WBC 12.1 x 10EE3/UL High 4.5 - 10.8 [facility] Comment on above: Performed By: #### 2 18438 #### [facility],[address] [place] [address] 85182 URIC ACIDon 09-24-2024 Urate [Mass/Vol] 5.0 mg/dL Normal 2.6 - 6.0 [facility] Comment on above: Performed By: #### 2 11413 #### [facility],[address] [place] [address] 18489 URINE CREATININE AND PROTEIN RATIOon 09-24-2024 CREATININE UR 94.91 mg/dl Normal [facility] Comment on above: Performed By: #### 2 61956 #### [facility],[address] [place] [address] 11893 PC RATIO 0.53 mg/dL Normal 0.00 - 10.00 [facility] Comment on above: Performed By: #### 2 45037 #### [facility],[address] [place] [address] 07455 Protein (U) [Mass/Vol] 50.40 mg/dL High 0.00 - 10.00 [facility] Comment on above: Performed By: #### 2 60689 #### [facility],[address] [place] [address] 75774 VITAMIN D, 25 HYDROXYon 09-08 VitD 46.70 ng/mL Normal 30.00 - 100 [facility] Comment on above: Result Comment: 25-O HD3 indicates both endogenous production and supplementation. 25-OHD2 is an indicator of exogenous sources, such as diet or supplementation. Therapy is based on measurement of Total 25-OHD, with levels <20 ng/mL indicative of Vitamin D deficiency, while levels between 20 ng/mL and 30 ng/mL suggest insufficiency. Optimal levels are >=30ng/mL. Vitamin D, 25-OH D3 Not Established Vitamin D, 25-OH D2 Not Established Performed By: #### 2 29784 #### [facility],[address] [place] [address] 13711 Cardiology Visit Reporton Cardiology Visit Report [facility] [address] [place] [address]. [address] [place], [place] [address] OFFICE VISIT Date of Service: 08/25/24 MR#: [id number] Acct: [id number] Name: ADELA WELLS Rep #: [id number] : 1945 Provider: LAYNE Holcomb Age/Sex: 79/F Location: [facility] Status: Signed HPI HPI History of Present Illness Details: Adela Wells is a 79-year-old female who presents for a cardiovascular follow-up visit. She has a history of coronary artery disease with 6 vessel bypass in 2007. In 2015, she had a non-ST myocardial infarction and underwent percutaneous balloon intervention of the mid RCA with stent placement and balloon angioplasty of the proximal RCA. She also underwent angioplasty of the saphenous vein graft to the posterior descending artery. In October 2019, she had angiography at [facility] after presenting with non-STEMI. At that time, she had patent HEART to LAD and 80% stenosis in the SVG to diagonal 1. Other grafts were felt to be occluded. She underwent a PCI of the saphenous vein graft to the first diagonal vessel and also the teller left circumflex artery with a drug-eluting stent. She did present to the emergency room in October of 2021 with shortness of breath as well as palpitations. Her blood pressure was noted to be elevated her laboratory tests were noted to be normal. Her ejection fraction has been estimated to be 60% with no wall motion abnormalities present. She did have a stress test which was abnormal, however with her renal function and lack of cardiac symptoms it was opted to treat medically. She was advised to increase her coreg and isosorbide. She did not do this. She presented to the emergency room on 11/04/2023 with complaints of shortness of breath. She underwent a cardiac catheterization on 11/06/2023 which demonstrated bypass grafts noted to be occluded and the HEART to the LAD which is patent, teller right coronary artery which is patent with moderate disease, and a saphenous vein graft to a small diagonal vessel with severe distal disease. Medical therapy was recommended at that time. She again presented to [facility] in 06/2024 with concerns of CP. EKG demonstrated slight ST depression in lateral leads, V3-V6 in 1 and aVL. Troponin is mildly increased 43, 113 and 187 suggestive of mild non-STEMI. Her medication is optimized. Metoprolol was increased and amlodipine was added. She notes that she had CP after she went home following a medication that was started for her arthritis. Since this caused her CP, she stopped this on her own and has not had any symptoms since. Intake Vital Signs 05/09/24 23:24 06/10/24 13:53 08/25/24 14:59 Height 5 ft 1 in 5 ft 1 in 5 ft 1 in Weight: 160 lb BMI 30.2 BP 145/84 H Blood Pressure Location Rt brachial Position Sitting Respiration 16 Pulse 75 Pulse Source Monitor Pulse Oximetry (%) 100 Oxygen Delivery Method room air Comment Did not take metoprolol today Intake Visit Reasons: 6 M [employer] Supervisor Required: No Accompanied by: Self Is patient in pain?: Yes (low back) Pain scale (1-10): 6 Allergies Anesthetics - Amide Type - Select A (Anesthetics - Amide Type) Allergy (Verified 08/25/24 15:01) Other acetaminophen (From Tylenol) Adverse Reaction (Severe, Verified 08/25/24 15:01) Other pravastatin Adverse Reaction (Intermediate, Verified 08/25/24 15:01) Myalgias after 15 years of taking cinnamon Adverse Reaction (Unknown, Verified 08/25/24 15:01) Unknown Penicillins Adverse Reaction (Unknown, Verified 08/25/24 15:01) Unknown ezetimibe (From Zetia) Adverse Reaction (Verified 08/25/24 15:01) myalgias leflunomide Adverse Reaction (Verified 08/25/24 15:04) Chest tightness Medications ???Medication ???Instructions ???Recorded ???Confirmed ???Type montelukast 10 mg tablet 10 mg PO DAILY ASTHMA 12/17/13 08/25/24 History aspirin 81 mg tablet,delayed 81 mg PO QDAY [facility] 11/19/17 08/25/24 History release cetirizine 10 mg tablet (Zyrtec) 10 mg PO QDAY allergies 02/15/20 08/25/24 History allopurinol 100 mg tablet 100 mg PO DAILY GOUT 11/22/21 08/25/24 History ipratropium 20 mcg-albuterol 100 1 puff inhalation Q6H BREATHING 09/20/22 08/25/24 History mcg/actuation mist for inhalation (Combivent Respimat) ferrous sulfate 325 mg (65 mg 325 mg PO DAILY SUPPLEMENT 10/04/22 08/25/24 History iron) tablet furosemide 40 mg tablet (Lasix) 40 mg PO DAILY diuretic 12/25/22 08/25/24 History cholecalciferol (vitamin D3) 25 25 mcg PO SUTUTHSA vitamin 06/05/23 08/25/24 History mcg (1,000 unit) tablet omeprazole 20 mg capsule,delayed 20 mg PO DAILY reflux 11/04/23 08/25/24 History release ezetimibe 10 mg tablet (Zetia) 10 mg PO DAILY 02/27/24 08/25/24 History prednisone 5 mg tablet 5 mg PO DAILY 02/27/24 08/25/24 History albuter (more content not included)... Normal [facility] URINE CULTURE [CCL]on 2023 Bacteria identified Cx Nom (U) URCUL See Results Below See Below CULTURE, URINE MIXED MICROBIOTA >=100,000 CFU/ml Mixed microbiota No further workup. Mixed microbiota can be due to???urine???contami nation with s SOURCE: Urine (Nonspecific) [facility] [address] [place] [address] Brock Chavez III, M.D. [id number] SEND TO IC NO Normal [facility] Comment on above: Performed By: #### 2 83350 #### [place] [address] BMP with eGFRon 08-11-2024 AGE [address] [facility] Comment on above: Performed By: #### 2 90543 #### [facility],[address] [place] [address] Anion gap [Moles/Vol] 15 mmol/L Normal 10 - 20 [facility] Comment on above: Performed By: #### 2 55703 #### [facility],[address] [place], [place] [id number] BMP with eGFR Normal [facility] Comment on above: Result Comment: BASI C METABOLIC PANEL Performed By: #### 2 05231 #### [address] [address] Calcium [Mass/Vol] 9.1 mg/dL Normal 8.5 - 10.1 [facility] Comment on above: Performed By: #### 2 88112 #### [facility],[address] [place], [place] [id number] Chloride [Moles/Vol] 102 mmol/L Normal 98 - 107 [facility] Comment on above: Performed By: #### 2 87906 #### [facility],[address] [place], [place] [id number] CO2 [Moles/Vol] 22.9 mmol/L Normal 21.0 - 32.0 [facility] Comment on above: Performed By: #### 2 35165 #### [facility],[address] [place], [place] [id number] Creatinine [Mass/Vol] 2.98 mg/dL High 0.55 - 1.02 [facility] Comment on above: Performed By: #### 2 46370 #### [facility],[address] [place], [place] [id number] eGFR 15 ML/MINUTE Low 60 - 999 [facility] Comment on above: Performed By: #### 2 30962 #### [facility],[address] [place], [place] [id number] eGFR(AA) 18 ML/MINUTE Low 60 - 999 [facility] Comment on above: Result Comment: ACCO RDING TO THE NATIONAL KIDNEY DISEASE EDUCATION PROGRAM(NKDE), A NORMAL eGFR IS A VALUE GREATER THAN OR EQUAL TO 60 ML/MIN/1.73 SQ METERS. CHRONIC KIDNEY DISEASE: <60mL/MIN/1.73 SQ METERS KIDNEY FAILURE: <15mL/MIN/1.73 SQ METERS THIS TEST SHOULD ONLY BE USED FOR PATIENTS 18 YEARS OF AGE AND OLDER. Performed By: #### 2 13251 #### [facility],[address] [place], [place] [id number] Glucose [Mass/Vol] 145 mg/dL High 74 - 106 [facility] Comment on above: Performed By: #### 2 30911 #### [facility],[address] [place], [place] [id number] Potassium [Moles/Vol] 4.4 mmol/L Normal 3.5 - 5.1 [facility] Comment on above: Performed By: #### 2 63149 #### [facility],[address] [place], [place] [id number] Sodium [Moles/Vol] 135 mmol/L Low 136 - 145 [facility] Comment on above: Performed By: #### 2 53126 #### [facility],[address] [place], [place] [id number] Urea nitrogen [Mass/Vol] 37 mg/dL High 7 - 18 [facility] Comment on above: Performed By: #### 2 93405 #### [facility],[address] [place] [address] URINALYSIS WITH MICROSCOPYon 08-11-[address] [facility] Comment on above: Performed By: #### 2 75749 #### [facility],[address] [place] [address] Bacteria 3+ Normal [facility] Comment on above: Performed By: #### 2 08611 #### [facility],[address] [place] [address] Bilirubin Ql (U) Negative Normal NORMAL: NEGATIVE [facility] Comment on above: Performed By: #### 2 83732 #### [facility],[address] [place], [place] [id number] Casts NONE Normal [facility] Comment on above: Performed By: #### 2 25222 #### [facility],[address] [place] [address] Clarity (U) very cloudy Normal NORMAL: CLEAR [facility] Comment on above: Performed By: #### 2 37122 #### [facility],[address] [place] [address] 38[address] Color (U) mally Normal NORMAL: YELLOW [facility] Comment on above: Performed By: #### 2 41516 #### [facility],[address] [place] [address] Crystals LM Nom (Urine sed) NONE Normal [facility] Comment on above: Performed By: #### 2 97331 #### [facility],[address] [place] [address]143 Epi Cells FEW Normal [facility] Comment on above: Performed By: #### 2 62291 #### [facility],[address] [place], [place] [id number] Glucose Ql (U) NORM Normal NORMAL: NORMAL [facility] Comment on above: Performed By: #### 2 75398 #### [facility],[address] [place], [place] [id number] Hemoglobin Ql (U) 150 Abnormal NORMAL: NEGATIVE [facility] Comment on above: Performed By: #### 2 61776 #### [facility],[address] [place], [place] [id number] Ketone Negative Normal NORMAL: NEGATIVE [facility] Comment on above: Performed By: #### 2 80913 #### [facility],[address] [place], [place] [id number] Leukocytes 500 Abnormal NORMAL: NEGATIVE [facility] Comment on above: Result Comment: URIN E MICROSCOPIC Performed By: #### 2 01031 #### [facility],[address] [place], [place] [id number] Mucous NONE Normal [facility] Comment on above: Performed By: #### 2 09258 #### [facility],[address] [place] [address] 339[address] Nitrite Ql (U) Negative Normal NORMAL: NEGATIVE [facility] Comment on above: Performed By: #### 2 36376 #### [facility],[address] [place] [address] 90165 pH (U) 6 [pH] Normal NORMAL: 5.0-8.0 [facility] Comment on above: Performed By: #### 2 75093 #### [facility],[address] [place] [address] Protein Ql (U) 100 Abnormal NORMAL: NEGATIVE [facility] Comment on above: Performed By: #### 2 68023 #### [facility],[address] [place] [address] Rbc 0-5 Normal 0-3 / hpf [facility] Comment on above: Performed By: #### 2 22096 #### [facility],[address] [place] [address] Sp [place] 1.020 Normal NORMAL: 1.010-1.030 [facility] Comment on above: Performed By: #### 2 72990 #### [facility],[address] [place] [address] Specimen Type R Normal [facility] Comment on above: Performed By: #### 2 38214 #### [facility],[address] [place] [address] URINALYSIS WITH MICROSCOPY Normal [facility] Comment on above: Result Comment: URIN ALYSIS Performed By: #### 2 13472 #### [facility],[address] [place] [address] Urobilinog NORM Normal NORMAL: NORMAL [facility] Comment on above: Performed By: #### 2 64001 #### [facility],[address] [place] [address] WBC (U) [#/Vol] /uL Normal 0-5 / hpf [facility] Comment on above: Performed By: #### 2 19346 #### [facility],[address] [place] [address] [facility] Comment on above: Performed By: #### 2 40822 #### [facility],[address] [place] [address] CBC + DIFFon 07-10-2024 Baso # 0.03 x10EE3/UL Normal 0.00 - 0.10 [facility] Comment on above: Performed By: #### 2 83903 #### [facility],[address] [place] [address] Basophils/100 WBC (Bld) 0.3 % Normal 0.0 - 2.0 [facility] Comment on above: Performed By: #### 2 18484 #### [facility],[address] [place] [address] CBC + DIFF Normal [facility] Comment on above: Result Comment: CBC- COMPLETE BLOOD COUNT Performed By: #### 2 46202 #### [place] [address] EO # 0.07 x10EE3/UL Normal 0.00 - 0.50 [facility] Comment on above: Performed By: #### 2 89011 #### [facility],[address] [place] [address] Eosinophils/100 WBC (Bld) 0.8 % Normal 0.0 - 7.0 [facility] Comment on above: Performed By: #### 2 95841 #### [place] [address] Erythrocyte distribution width (RBC) [Ratio] 13.8 % Normal 12.0 - 15.6 [facility] Comment on above: Performed By: #### 2 29811 #### [facility],[address] [place] [address] Hematocrit (Bld) [Volume fraction] 33.6 % Low 34.0 - 46.0 [facility] Comment on above: Performed By: #### 2 31834 #### [facility],[address] [place] [address] Hemoglobin (Bld) [Mass/Vol] 10.9 g/dL Low 12.0 - 16.0 [facility] Comment on above: Performed By: #### 2 24607 #### [facility],[address] [place] [address] Lymph # 1.66 x10EE3/UL Normal 0.80 - 2.80 [facility] Comment on above: Performed By: #### 2 61508 #### [facility],[address] [place] [address] Lymphocytes/100 WBC (Bld) 17.9 % Low 20.0 - 45.0 [facility] Comment on above: Performed By: #### 2 18230 #### [facility],[address] [place] [address] MANUAL DIFF N/A Normal [facility] Comment on above: Performed By: #### 2 57784 #### [facility],[address] [place] [address] MCH (RBC) [Entitic mass] 32 pg Normal 27 - 33 [facility] Comment on above: Performed By: #### 2 50837 #### [facility],[address] [place] [address] MCHC 32 X10 3 Normal 32 - 36 [facility] Comment on above: Performed By: #### 2 68362 #### [facility],[address] [place] [address] MCV (RBC) [Entitic vol] 98 fL Normal 80 - 99 [facility] Comment on above: Performed By: #### 2 47123 #### [facility],[address] [place] [address] [place] # 0.39 x10EE3/UL Normal 0.20 - 1.00 [facility] Comment on above: Performed By: #### 2 22052 #### [facility],[address] [place] [address] MONOS % 4.2 % Normal 0.0 - 10.0 [facility] Comment on above: Performed By: #### 2 29902 #### [facility],[address],[place] [address] Morphology Hayden (Bld) [Interp] N/A Normal [facility] Comment on above: Performed By: #### 2 10506 #### [facility],[address] [place] [address] Neut # 7.11 x10EE3/UL High 1.50 - 7.10 [facility] Comment on above: Performed By: #### 2 47762 #### [facility],[address] [place], [place] [id number] Neutrophils/100 WBC (Bld) 76.8 % High 46.0 - 76.0 [facility] Comment on above: Performed By: #### 2 53414 #### [facility],[address] [place], [place] [address] PLATELET 312 x10EE3/UL Normal 150 - 450 [facility] Comment on above: Performed By: #### 2 78928 #### [facility],[address] [place] [address] Platelet mean volume (Bld) [Entitic vol] 7.8 fL Normal 6.6 - 10.5 [facility] Comment on above: Result Comment: AUTO MATED DIFFERENTIAL Performed By: #### 2 52981 #### [facility],[address] [place] [address] 378[address] RBC 3.45 x 10EE6/UL Low 4.10 - 5.30 [facility] Comment on above: Performed By: #### 2 19648 #### [facility],[address] [place] [address]157 WBC 9.3 x 10EE3/UL Normal 4.5 - 10.8 [facility] Comment on above: Performed By: #### 2 84213 #### [facility],[address] [place] [address]30[address] CMP with eGFRon 07-10-2024 AGE [address] [facility] Comment on above: Performed By: #### 2 79026 #### [facility],[address] [place] [address] Albumin [Mass/Vol] 3.2 g/dL Low 3.4 - 5.0 [facility] Comment on above: Performed By: #### 2 63610 #### [facility],[address] [place] [address] 18263 Albumin/Globulin [Mass ratio] 0.8 {ratio} Low 0.9 - 1.6 [facility] Comment on above: Performed By: #### 2 99407 #### [facility],[address] [place] [address] 97188 ALK PHOS 100 U/L Normal 46 - 116 [facility] Comment on above: Performed By: #### 2 65422 #### [facility],[address] [place] [address] 26117 ALT [Catalytic activity/Vol] 18 U/L Normal 16 - 63 [facility] Comment on above: Performed By: #### 2 92716 #### [facility],[address] [place] [address]2663 Anion gap [Moles/Vol] 17 mmol/L Normal 10 - 20 [facility] Comment on above: Performed By: #### 2 45418 #### [facility],[address] [place], [place] [id number] AST [Catalytic activity/Vol] 15 U/L Normal 13 - 39 [facility] Comment on above: Performed By: #### 2 67028 #### [facility],[address] [place] [address] 36316 B/C RATIO 22 ratio Normal 0 - 30 [facility] Comment on above: Performed By: #### 2 92603 #### [facility],[address] [place] [address] Bilirubin [Mass/Vol] 0.4 mg/dL Normal 0.2 - 1.0 [facility] Comment on above: Performed By: #### 2 23742 #### [facility],[address] [place], [place] [address] Calcium [Mass/Vol] 9.0 mg/dL Normal 8.5 - 10.1 [facility] Comment on above: Performed By: #### 2 05923 #### [facility],[address] [place], [place] [address] Chloride [Moles/Vol] 103 mmol/L Normal 98 - 107 [facility] Comment on above: Performed By: #### 2 54281 #### [facility],[address] [place], [place] [address] CMP with eGFR Normal [facility] Comment on above: Result Comment: COMP REHENSIVE METABOLIC PANEL Performed By: #### 2 64687 #### [facility],[address] [place] [address] CO2 [Moles/Vol] 22.9 mmol/L Normal 21.0 - 32.0 [facility] Comment on above: Performed By: #### 2 15581 #### [facility],[address] [place], [place] [address] Creatinine [Mass/Vol] 2.89 mg/dL High 0.55 - 1.02 [facility] Comment on above: Performed By: #### 2 66511 #### [facility],[address] [place], [place] [address] eGFR 16 ML/MINUTE Low 60 - 999 [facility] Comment on above: Performed By: #### 2 12497 #### [facility],[address] [place], [place] [address] eGFR(AA) 19 ML/MINUTE Low 60 - 999 [facility] Comment on above: Result Comment: ACCO RDING TO THE NATIONAL KIDNEY DISEASE EDUCATION PROGRAM(NKDE), A NORMAL eGFR IS A VALUE GREATER THAN OR EQUAL TO 60 ML/MIN/1.73 SQ METERS. CHRONIC KIDNEY DISEASE: <60mL/MIN/1.73 SQ METERS KIDNEY FAILURE: <15mL/MIN/1.73 SQ METERS THIS TEST SHOULD ONLY BE USED FOR PATIENTS 18 YEARS OF AGE AND OLDER. Performed By: #### 2 84706 #### [facility],[address] [place] [address] 20901 Globulin (S) [Mass/Vol] 4.1 g/dL High 1.5 - 3.8 [facility] Comment on above: Performed By: #### 2 21144 #### [facility],[address] [place] [address] 76975 Glucose [Mass/Vol] 185 mg/dL High 74 - 106 [facility] Comment on above: Performed By: #### 2 42295 #### [facility],[address] [place] [address]40 Potassium [Moles/Vol] 5.2 mmol/L High 3.5 - 5.1 [facility] Comment on above: Performed By: #### 2 60236 #### [facility],[address] [place] [address] 99085 Protein [Mass/Vol] 7.3 g/dL Normal 6.4 - 8.2 [facility] Comment on above: Performed By: #### 2 96371 #### [facility],[address] [place] [address] 03011 Sodium [Moles/Vol] 138 mmol/L Normal 136 - 145 [facility] Comment on above: Performed By: #### 2 08955 #### [facility],[address] [place] [address] 19867 Urea nitrogen [Mass/Vol] 64 mg/dL High 7 - 18 [facility] Comment on above: Performed By: #### 2 97387 #### [facility],[address] [place] [address] 46740 FERRITINon 07-10-2024 Ferritin [Mass/Vol] 350 ng/mL Normal 8 - 388 [facility] Comment on above: Performed By: #### 2 76330 #### [facility],[address] [place] [address] 48676 FOLATESon 07-10-2024 FOLATES 92.6 ng/ml High 8.6 - 58.9 [facility] Comment on above: Performed By: #### 2 08628 #### [facility],[address] [place] [address] 12194 HEMOGLOBIN A1C (POM)on 07-10 Glucose [Mass/Vol] 171.4 mg/dL High 0.0 - 0.0 [facility] Comment on above: Result Comment: BLDo HEMOGLOBIN A1C REFERENCE RANGESBLDo Suggested Diagnosis HbA1c(%) HbA1C (mmol/mol Diabetic >/=6.5 >/=48 Prediabetes 5.7 - 6.4 39 - 47 Normal <5.7 <39 Performed By: #### 2 25599 #### [facility],[address] [place] [address] HbA1c (Bld) [Mass fraction] 7.6 % High 0.0 - 6.5 [facility] Comment on above: Performed By: #### 2 66087 #### [place] [id number] IRON AND TIBCon 07-10-2024 %SATURATION 16 % Normal [facility] Comment on above: Performed By: #### 2 62102 #### [facility],[address] [place] [address] 42907 Iron [Mass/Vol] 54 ug/dL Normal 50 - 170 [facility] Comment on above: Performed By: #### 2 39063 #### [address] [address] TIBC 338 ug/dl Normal 250 - 450 [facility] Comment on above: Performed By: #### 2 62664 #### [address] [address] UIBC 284 ug/dL Normal 155 - 355 [facility] Comment on above: Performed By: #### 2 98943 #### [address] [address] LIPID PROFILEon 07-10-2024 Cholesterol [Mass/Vol] 182 mg/dL Normal 0 - 240 [facility] Comment on above: Performed By: #### 2 54258 #### [facility],[address] [place] [address] 01471 Cholesterol in HDL [Mass/Vol] 43 mg/dL Normal 40 - 60 [facility] Comment on above: Performed By: #### 2 19901 #### [facility],[address] [place] [address] 81765 Cholesterol in LDL [Mass/Vol] 112 mg/dL Normal 0 - 129 [facility] Comment on above: Performed By: #### 2 91039 #### [facility],[address] [place] [address] 92367 Cholesterol.total/Mikki sterol in HDL [Mass ratio] 4.2 {ratio} Normal 0.0 - 5.0 [facility] Comment on above: Performed By: #### 2 43979 #### [facility],[address] [place] [address] 28637 Lipid 1996 panel Normal [facility] Comment on above: Result Comment: LIPI D PROFILE Performed By: #### 2 55711 #### [facility],[address] [place] [address] 78568 Triglyceride [Mass/Vol] 133 mg/dL Normal 0 - 150 [facility] Comment on above: Performed By: #### 2 97247 #### [facility],[address] [place] [address] 95318 T4-FREE (FREE THYROXINE)on 09-09-2023 Free T4 [Mass/Vol] 1.09 ng/dL Normal 0.76 - 1.46 [facility] Comment on above: Result Comment: P otential of falsely elevated results when biotin concentrations are > 10 ng/mL. Performed By: #### 2 21569 #### [facility],[address] [place] [address] 38717 TSHon 07-10-2024 TSH Qn 3.11 m[IU]/L Normal 0.35 - 3.74 [facility] Comment on above: Performed By: #### 2 28072 #### [facility],[address] [place] [address] 94178 URIC ACIDon 07-10-2024 Urate [Mass/Vol] 5.2 mg/dL Normal 2.6 - 6.0 [facility] Comment on above: Performed By: #### 2 61076 #### [facility],[address] [place] [address] 80983 VITAMIN B-12on 07-10-2024 Cobalamin (Vitamin B12) [Mass/Vol] 578 pg/mL Normal 193 - 986 [facility] Comment on above: Performed By: #### 2 85713 #### [address] [address] URINE CULTURE [CCL]on 2023 Bacteria identified Cx Nom (U) URCUL See Results Below See Below CULTURE, URINE NORMAL UROGENITAL NED 10,000 -<50,000 CFU/ml Normal urogenital ned SOURCE: Urine (Nonspecific) [facility] [address] [place] [address] Brock Chavez III, M.D. [id number] SEND TO IC NO Normal [facility] Comment on above: Performed By: #### 2 41462 #### [address] [address] URINALYSISon 06-17-[address] [facility] Comment on above: Performed By: #### 2 67037 #### [address] [address] Bacteria 1+ Normal [facility] Comment on above: Performed By: #### 2 35912 #### [facility],[address] [place] [address] 64723 Bilirubin Ql (U) Negative Normal NORMAL: NEGATIVE [facility] Comment on above: Performed By: #### 2 43889 #### [facility],[address] [place], [place] [id number] Casts NONE Normal [facility] Comment on above: Performed By: #### 2 65474 #### [facility],[address] [place] [address] 24202 Clarity (U) clear Normal NORMAL: CLEAR [facility] Comment on above: Performed By: #### 2 39042 #### [facility],[address] [place], [place] [id number] Color (U) p.yel Normal NORMAL: YELLOW [facility] Comment on above: Performed By: #### 2 46262 #### [facility],[address] [place], [place] [id number] Crystals LM Nom (Urine sed) NONE Normal [facility] Comment on above: Performed By: #### 2 46194 #### [facility],[address] [place], [place] [id number] Epi Cells FEW Normal [facility] Comment on above: Performed By: #### 2 63735 #### [facility],[address] [place] [address] 37318 Glucose Ql (U) 50 Abnormal NORMAL: NORMAL [facility] Comment on above: Performed By: #### 2 53161 #### [facility],[address] [place] [address] 45206 Hemoglobin Ql (U) 10 Abnormal NORMAL: NEGATIVE [facility] Comment on above: Performed By: #### 2 70086 #### [facility],[address] [place] [address] 95017 Ketone Negative Normal NORMAL: NEGATIVE [facility] Comment on above: Performed By: #### 2 36120 #### [facility],[address] [place] [address] 82721 Leukocytes 500 Abnormal NORMAL: NEGATIVE [facility] Comment on above: Performed By: #### 2 78835 #### [facility],[address] [place], [place] [id number] Mucous NONE Normal [facility] Comment on above: Performed By: #### 2 14275 #### [facility],[address] [place] [address] Nitrite Ql (U) Negative Normal NORMAL: NEGATIVE [facility] Comment on above: Performed By: #### 2 40845 #### [facility],[address] [place] [address] pH (U) 6 [pH] Normal NORMAL: 5.0-8.0 [facility] Comment on above: Performed By: #### 2 63675 #### [facility],[address] [place] [address] Protein Ql (U) 15 Abnormal NORMAL: NEGATIVE [facility] Comment on above: Performed By: #### 2 [id number] #### [facility],[address] [place] [address] Rbc 0-5 Normal 0-3/hpf [facility] Comment on above: Performed By: #### 2 68413 #### [facility],[address] [place] [address] Sp [place] 1.010 Normal NORMAL: 1.010-1.030 [facility] Comment on above: Performed By: #### 2 39928 #### [facility],[address] [place] [address] Specimen Type Clean catch Normal [facility] Comment on above: Performed By: #### 2 89981 #### [facility],[address] [place] [address] Urinalysis dipstick W Reflex Microscopic panel (U) SEE BELOW Normal [facility] Comment on above: Result Comment: MICR OSCOPIC Performed By: #### 2 61057 #### [facility],[address] [place], [place] [id number] Urobilinog NORM Normal NORMAL: NORMAL [facility] Comment on above: Performed By: #### 2 57820 #### [facility],[address] [place] [address] Wbc 1-5 Normal 0-5/hpf [facility] Comment on above: Performed By: #### 2 13877 #### [facility],[address] [place] [address] [facility] Comment on above: Performed By: #### 2 14572 #### [facility],[address] [place] [address] Basic Metabolic Profile (BMP )on 06-11-2024 BUN/CRE 19.2 RATIO Normal 10-20 [facility] Comment on above: Performed By: #### L 500.4100, L500.2500, L501.9520, L100.0100 ####[facility] [address] [place], [address] CA,Total 9.1 mg/dL Normal 8.5-10.1 [facility] Comment on above: Performed By: #### L 500.4100, L500.2500, L501.9520, L100.0100 ####[facility] [address] [place], [address] Chloride [Moles/Vol] 104 mmol/L Normal 98-107 [facility] Comment on above: Performed By: #### L 500.4100, L500.2500, L501.9520, L100.0100 ####[facility] [address] [place], [address] CO2 [Moles/Vol] 25.0 mmol/L Normal 21.0-32.0 [facility] Comment on above: Performed By: #### L 500.4100, L500.2500, L501.9520, L100.0100 ####[facility] [address] [place], [address] Creatinine [Mass/Vol] 2.08 mg/dL High 0.55-1.02 [facility] Comment on above: Result Comment: The validity of the calculated GFR GFRAA in patients over 70 years has not been determined. Clinical correlation is essential. Performed By: #### L 500.4100, L500.2500, L501.9520, L100.0100 ####[facility] [address] [place], [address] ECRCL 20.24 ml/min Normal [facility] Comment on above: Performed By: #### L 500.4100, L500.2500, L501.9520, L100.0100 ####[facility] [address] [place], [address] EST GFR - AA 29 mL/min Low >60 [facility] Comment on above: Result Comment: Afri can Guyanese GFR Calc Performed By: #### L 500.4100, L500.2500, L501.9520, L100.0100 ####[facility] [address] [place], [address] GAP 6 Normal 5-15 [facility] Comment on above: Performed By: #### L 500.4100, L500.2500, L501.9520, L100.0100 ####[facility] [address] [place], [address] GFR/1.73 sq M.predicted among non-blacks MDRD (S/P/Bld) [Vol rate/Area] 24 mL/min/{1.73_m2} Low >60 [facility] Comment on above: Result Comment: Non- GFR Calc Performed By: #### L 500.4100, L500.2500, L501.9520, L100.0100 ####[facility] [address] [place], [address] Glucose [Mass/Vol] 121 mg/dL High 74-106 [facility] Comment on above: Result Comment: Fast ing Glucose result from 100 to 125 mg/dL suggests IMPAIRED HOMEOSTASIS per A.D.A. criteria. Performed By: #### L 500.4100, L500.2500, L501.9520, L100.0100 ####[facility] [address] [place], [address] Potassium [Moles/Vol] 4.6 mmol/L Normal 3.5-5.1 [facility] Comment on above: Performed By: #### L 500.4100, L500.2500, L501.9520, L100.0100 ####[facility] [address] [place], [address] Sodium [Moles/Vol] 135 mmol/L Low 136-145 [facility] Comment on above: Performed By: #### L 500.4100, L500.2500, L501.9520, L100.0100 ####[facility] [address] [place], [address] Urea nitrogen [Mass/Vol] 40 mg/dL High 7-18 [facility] Comment on above: Performed By: #### L 500.4100, L500.2500, L501.9520, L100.0100 ####[facility] [address] [place], [address] CBC W/Diff, Automatedon 10-0 4-4 Absolute Lymph 3.52 X10 3/uL Normal 0.83-4.51 [facility] Comment on above: Performed By: #### L 500.4100, L500.2500, L501.9520, L100.0100 ####[facility] [address] [place], [address] Absolute Neut 7.4 X10 3/uL Normal 2.0-7.7 [facility] Comment on above: Performed By: #### L 500.4100, L500.2500, L501.9520, L100.0100 ####[facility] [address] [place], [address] Basophils/100 WBC (Bld) 0.5 % Normal 0-1 [facility] Comment on above: Performed By: #### L 500.4100, L500.2500, L501.9520, L100.0100 ####[facility] [address] [place], [address] Eosinophils/100 WBC (Bld) 1.8 % Normal 0-5 [facility] Comment on above: Performed By: #### L 500.4100, L500.2500, L501.9520, L100.0100 ####[facility] [address] [place], [address] Erythrocyte distribution width (RBC) [Ratio] 14.7 % High 11.6-14.6 [facility] Comment on above: Performed By: #### L 500.4100, L500.2500, L501.9520, L100.0100 ####[facility] [address] [place], [address] IG% 0.600 Normal 0.0-0.9 [facility] Comment on above: Result Comment: IG% - Immature Granulocytes (promyelocytes, myelocytes and metamyelocytes) > 1% indicates that a LEFT SHIFT is Present. Performed By: #### L 500.4100, L500.2500, L501.9520, L100.0100 ####[facility] [address] [place], [address] Lymphocytes/100 WBC (Bld) 29.6 % Normal 19-41 [facility] Comment on above: Performed By: #### L 500.4100, L500.2500, L501.9520, L100.0100 ####[facility] [address] [place], [address] MCH (RBC) [Entitic mass] 30.8 pg Normal 27.0-32.0 [facility] Comment on above: Performed By: #### L 500.4100, L500.2500, L501.9520, L100.0100 ####[facility] [address] [place], [address] MCHC (RBC) [Mass/Vol] 31.1 g/dL Low 32-36 [facility] Comment on above: Performed By: #### L 500.4100, L500.2500, L501.9520, L100.0100 ####[facility] [address] [place], [address] MCV (RBC) [Entitic vol] 99.1 fL High 81-99 [facility] Comment on above: Performed By: #### L 500.4100, L500.2500, L501.9520, L100.0100 ####[facility] [address] [place], [address] Monocytes/100 WBC (Bld) 5.7 % Normal 0-10 [facility] Comment on above: Performed By: #### L 500.4100, L500.2500, L501.9520, L100.0100 ####[facility] [address] [place], [address] Neutrophils/100 WBC (Bld) 61.8 % Normal 47-70 [facility] Comment on above: Performed By: #### L 500.4100, L500.2500, L501.9520, L100.0100 ####[facility] [address] [place], [address] Nucleated RBC (Bld) [#/Vol] 0 10*3/uL Normal 0-5 [facility] Comment on above: Performed By: #### L 500.4100, L500.2500, L501.9520, L100.0100 ####[facility] [address] [place], [address] Platelet mean volume (Bld) [Entitic vol] 9.9 fL Normal 6.2-12.0 [facility] Comment on above: Performed By: #### L 500.4100, L500.2500, L501.9520, L100.0100 ####[facility] [address] [place], [address] Platelets (Bld) [#/Vol] 317 10*3/uL Normal 150-450 [facility] Comment on above: Performed By: #### L 500.4100, L500.2500, L501.9520, L100.0100 ####[facility] [address] [place], [address] RDW SD 53.2 fl High 35.1-43.9 [facility] Comment on above: Performed By: #### L 500.4100, L500.2500, L501.9520, L100.0100 ####[facility] [address] [place], [address] Hematocrit (Bld) [Volume fraction] 34.1 % Low 37-47 [facility] Comment on above: Performed By: #### L 500.4100, L500.2500, L501.9520, L100.0100 ####[facility] [address] [place], [address] Hemoglobin (Bld) [Mass/Vol] 10.6 g/dL Low 12.0-15.0 [facility] Comment on above: Performed By: #### L 500.4100, L500.2500, L501.9520, L100.0100 ####[facility] [address] [place], [address] RBC (Bld) [#/Vol] 3.44 10*6/uL Low 4.2-5.4 [facility] Comment on above: Performed By: #### L 500.4100, L500.2500, L501.9520, L100.0100 ####[facility] [address] [place], [address] WBC (Bld) [#/Vol] 11.9 10*3/uL High 4.4-11.0 [facility] Comment on above: Performed By: #### L 500.4100, L500.2500, L501.9520, L100.0100 ####[facility] [address] [place], [address] Discharge Instructionon Discharge Instruction [facility] Medical Records Department [address] [place] [address] Instructions for Home/Discharge Instructions 06/11/24 1453 MR#: [id number] Acct: [id number] Name: ADELA WELLS Rep #: [id number] : 1945 79 From: Presley Avila MD PCP: Dr. Carlo Diaz MD Status:ADM IN Discharge Instructions Diet Discharge Diet: 2000 mg Sodium Diet Activity Discharge Activity: Return to Normal Activity Weight Bearing Status: Weight bearing as tolerated Dressing / Incision Call your doctor if you observe: Fever of 101 or Higher, Coldness, Increased Pain, Numbness or Tingling, Change in Color, Inability to urinate, Inability to have a bowel movement, Shortness of breath, Dizziness, Fainting spells, Swelling in the ankles, Chest pain, Prolonged hiccupping, Increased palpitations (irregular heartbeat) and Calf discomfort Follow Up Care When: IN 2 WEEKS Test Results: Test results from this visit will be discussed in further detail at your follow-up appointment, if applicable. Discharge Plan Admission Admit Date/Time: 06/10/24 12:21 Attending Provider: Presley Avila Primary Care Provider: Carlo Diaz Consulting Providers: Vignesh Graham Instructions Additional Instructions / Restrictions: Advised Discharge Orders/Prescriptions Prescriptions: New amlodipine 5 mg Tablet 5 mg PO Q24H 30 Days Qty: 30 1RF Rx Instructions: Hold for SBP less than 130 mmHg levothyroxine 112 mcg tablet 112 mcg PO DAILY 30 Days Qty: 30 2RF metoprolol succinate 100 mg Tablet Extended Release 24 Hr 100 mg PO DAILY 30 Days Qty: 30 2RF Rx Instructions: Hold for heart less than 50 or systolic blood pressure less than 100 mmHg. Continued aspirin 81 mg tablet,delayed release (DR/EC) 81 mg PO QDAY cetirizine [Zyrtec] 10 mg tablet 10 mg PO QDAY allopurinol 100 mg tablet 100 mg PO DAILY furosemide [Lasix] 40 mg tablet 40 mg PO DAILY cholecalciferol (vitamin D3) 25 mcg (1,000 unit) tablet 25 mcg PO SUTUTHSA spironolactone 25 mg tablet 25 mg PO BID ferrous sulfate 325 mg (65 mg iron) tablet 325 mg PO DAILY prednisone 5 mg tablet 5 mg PO DAILY ezetimibe [Zetia] 10 mg tablet 10 mg PO DAILY montelukast 10 MG tablet 10 mg PO DAILY Combivent Respimat 20-100 mcg/actuation mist 1 puff INHALATION Q6H Patient Comments: PT STATES SHE ONLY USED APPROX 3 TIMES A DAY omeprazole 20 mg capsule,delayed release(DR/EC) 20 mg PO DAILY albuterol sulfate 2.5 mg /3 mL (0.083 %) solution for nebulization 1.25 mg inhalation TID PRN (Reason: shortness of breath or wheezing) ipratropium bromide 0.02 % solution 0.5 mg inhalation TID PRN (Reason: shortness of breath or wheezing) leflunomide 10 mg tablet 5 mg PO DAILY glipizide 2.5 mg tablet extended release 24hr 2.5 mg PO BID folic acid 1 mg tablet 1 mg PO DAILY biotin 10,000 mcg capsule 10,000 mcg PO DAILY Discontinued levothyroxine 100 mcg tablet 100 mcg PO DAILY metoprolol tartrate 50 mg tablet 50 mg PO DAILY Referrals / Follow Up: Carlo Diaz MD [Primary Care Provider] - Within 2 Weeks (Levothyroxine dose increased 212 mcg per daily. TSH was high) Laura Roa DOWEL PIN WORKER, DOWEL PIN WORKER-C [Non-Staff -Ordering Privileges] - Within 2 Weeks Disposition Disposition (needs filled in before D/C Order can be placed): Home, Self Care 06/11/24 1500 Presley Avila MD CC: Dr. Carlo Diaz MD; Dr. Vignesh Graham MD Signed Normal [facility] Lipid Profileon 06-11-2024 Cholesterol [Mass/Vol] 184 mg/dL Normal 200 [facility] Comment on above: Result Comment: <200 mg/dL Desirable 200-240 mg/dL Borderline >240 mg/dL High Risk Performed By: #### L 500.4100, L500.2500, L501.9520, L100.0100 ####[facility] [address] [place], [address] Cholesterol in HDL [Mass/Vol] 46 mg/dL Normal [facility] Comment on above: Result Comment: The drugs N-Acetylcysteine and Metamizole may falsely depress this assay. Reference Range HDL <40 mg/dL Low HDL Cholesterol HDL >or= 60 mg/dL High HDL Cholesterol Performed By: #### L 500.4100, L500.2500, L501.9520, L100.0100 ####[facility] [address] [place], [address] Cholesterol in LDL [Mass/Vol] 110 mg/dL Normal 0-130 [facility] Comment on above: Performed By: #### L 500.4100, L500.2500, L501.9520, L100.0100 ####[facility] [address] [place], [address] Cholesterol in VLDL [Mass/Vol] 28 mg/dL Normal 5-40 [facility] Comment on above: Performed By: #### L 500.4100, L500.2500, L501.9520, L100.0100 ####[facility] [address] [place], [address] Triglyceride [Mass/Vol] 139 mg/dL Normal [facility] Comment on above: Result Comment: The drugs N-Acetylcysteine and Metamizole may falsely depress this assay. Serum Triglycerides Reference Interval Normal <150 mg/dL Borderline high 150 - 199 mg/dL High 200 - 499 mg/dL Very High > or = 500 mg/dL Performed By: #### L 500.4100, L500.2500, L501.9520, L100.0100 ####[facility] [address] [place], [address] Partial Thromboplast Timeon 06-11-2024 aPTT Coag (Bld) [Time] 48.8 s High 24.1-36.2 [facility] Comment on above: Performed By: #### L 100.0100, L501.5200, L501.4020, L500.2500 #### [facility] [address] [place], [address] aPTT Coag (Bld) [Time] 59.7 s High 24.1-36.2 [facility] Comment on above: Performed By: #### L 100.0100, L501.5200, L501.4020, L500.2500 #### [facility] [address] [place], [address] T4 Free Directon 06-11-2024 T4 FREE DIRECT 1.21 ng/dL Normal 0.76-1.46 [facility] Comment on above: Order Comment: 'TROP ' Serial specimen #1, #2 or #3: 1 Performed By: #### L 100.0100, L501.5200, L501.4020, L500.2500 #### [facility] [address] [place], [address] Thyroid Stim Hormone (TSH)on 06-11-2024 TSH 7.440 uIU/mL High 0.358-3.740 [facility] Comment on above: Performed By: #### L 500.4100, L500.2500, L501.9520, L100.0100 ####[facility] [address] [place], [address] Urine Cultureon 06-11-2024 [facility] Mixed Gram Positive Organisms [place] Count 25,000-50,000 MIXC Mixed contaminants. Submit a new specimen if indicated. Normal [facility] Comment on above: Performed By: #### L 100.0100, L501.5200, L501.4020, L500.2500 #### [facility] [address] [place], [address] 12 Lead EKGon 06-10-2024 12 Lead EKG [facility] [address] [place] [address] 12 Lead EKG 06/10/24 1500 MR#: [id number] Acct: [id number] Name: ADELA WELLS Rep #: [id number] : 1945 79 From: Lasha Win MD Attending Dr: Dr. Presley Avila MD Status: DIS IN Ordering Dr: Presley Avila MD Date: 06/10/24 Location: [facility] Sex: F C Admitted: 06/10/24 Test Reason : CP Blood Pressure : / mmHG Vent. Rate : 086 BPM Atrial Rate : 086 BPM P-R Int : 140 ms QRS Dur : 100 ms QT Int : 382 ms P-R-T Axes : 045 028 112 degrees QTc Int : 457 ms Normal sinus rhythm ST T wave abnormality, consider lateral ischemia Abnormal ECG When compared with ECG of 10-JUN-2024 08:19, MANUAL COMPARISON REQUIRED, DATA IS UNCONFIRMED Confirmed by ARNALDO DUQUE, LASHA ([id number]), film editor KARIN CONTRERAS ([id number]) on 06/15/2024 9:23:04 AM Referred By: Confirmed By:LASHA WIN MD 06/15/24 0923 Date Lasha Win MD CC: Dr. Carlo Diaz MD; Dr. Presley Avila MD Signed Normal [facility] 12 Lead EKG [facility] [address] [place] [address] 12 Lead EKG 06/10/24 0819 MR#: [id number] Acct: [id number] Name: ADELA WELLS Rep #: [id number] : 1945 79 From: Lasha Win MD Attending Dr: Dr. Presley Avila MD Status: DIS IN Ordering Dr: Alfonso Padilla DO Date: 06/10/24 Location: [facility] Sex: F C Admitted: 06/10/24 Test Reason : CP Blood Pressure : / mmHG Vent. Rate : 108 BPM Atrial Rate : 108 BPM P-R Int : 156 ms QRS Dur : 100 ms QT Int : 334 ms P-R-T Axes : 059 036 134 degrees QTc Int : 447 ms Sinus tachycardia Marked ST abnormality, possible lateral subendocardial ischemia Abnormal ECG Confirmed by ARNALDO DUQUE, LASHA ([id number]), film editor NIRAV DICKSON ([id number]) on 06/12/2024 11:20:08 AM Referred By: ES Confirmed By:LASHA WIN MD 06/12/24 1120 Date Lasha Win MD CC: Dr. Carlo Diaz MD; Dr. Alfonso Padilla DO; Dr. Presley Avila MD Signed Normal [facility] Basic Metabolic Profile (BMP )on 06-10-2024 BUN/CRE 17.7 RATIO Normal 10-20 [facility] Comment on above: Order Comment: 1Y Performed By: #### L 100.0100, L501.5200, L501.4020, L500.2500 #### [facility] [address] [place], [address] CA,Total 9.1 mg/dL Normal 8.5-10.1 [facility] Comment on above: Order Comment: 1Y Performed By: #### L 100.0100, L501.5200, L501.4020, L500.2500 #### [facility] [address] [place], [address] Chloride [Moles/Vol] 104 mmol/L Normal 98-107 [facility] Comment on above: Order Comment: 1Y Performed By: #### L 100.0100, L501.5200, L501.4020, L500.2500 #### [facility] [address] [place], [address] CO2 [Moles/Vol] 25.0 mmol/L Normal 21.0-32.0 [facility] Comment on above: Order Comment: 1Y Performed By: #### L 100.0100, L501.5200, L501.4020, L500.2500 #### [facility] [address] [place], [address] Creatinine [Mass/Vol] 2.26 mg/dL High 0.55-1.02 [facility] Comment on above: Order Comment: 1Y Result Comment: The validity of the calculated GFR GFRAA in patients over 70 years has not been determined. Clinical correlation is essential. Performed By: #### L 100.0100, L501.5200, L501.4020, L500.2500 #### [facility] [address] [place], [address] ECRCL 18.31 ml/min Normal [facility] Comment on above: Order Comment: 1Y Performed By: #### L 100.0100, L501.5200, L501.4020, L500.2500 #### [facility] [address] [place], [address] EST GFR - AA 27 mL/min Low >60 [facility] Comment on above: Order Comment: 1Y Result Comment: Afri can Guyanese GFR Calc Performed By: #### L 100.0100, L501.5200, L501.4020, L500.2500 #### [facility] [address] [place], [address] GAP 6 Normal 5-15 [facility] Comment on above: Order Comment: 1Y Performed By: #### L 100.0100, L501.5200, L501.4020, L500.2500 #### [facility] [address] [place], [address] GFR/1.73 sq M.predicted among non-blacks MDRD (S/P/Bld) [Vol rate/Area] 22 mL/min/{1.73_m2} Low >60 [facility] Comment on above: Order Comment: 1Y Result Comment: Non- GFR Calc Performed By: #### L 100.0100, L501.5200, L501.4020, L500.2500 #### [facility] [address] [place], [address] Glucose [Mass/Vol] 184 mg/dL High 74-106 [facility] Comment on above: Order Comment: 1Y Result Comment: Fast ing Glucose result greater than or equal to 126 mg/dL suggests DIABETES MELLITUS per A.D.A. criteria. Performed By: #### L 100.0100, L501.5200, L501.4020, L500.2500 #### [facility] [address] [place], [address] Potassium [Moles/Vol] 4.8 mmol/L Normal 3.5-5.1 [facility] Comment on above: Order Comment: 1Y Performed By: #### L 100.0100, L501.5200, L501.4020, L500.2500 #### [facility] [address] [place], [address] Sodium [Moles/Vol] 135 mmol/L Low 136-145 [facility] Comment on above: Order Comment: 1Y Performed By: #### L 100.0100, L501.5200, L501.4020, L500.2500 #### [facility] [address] [place], [address] Urea nitrogen [Mass/Vol] 40 mg/dL High 7-18 [facility] Comment on above: Order Comment: 1Y Performed By: #### L 100.0100, L501.5200, L501.4020, L500.2500 #### [facility] [address] [place], [address] CBC W/Diff, Automatedon 10-0 3-4 Absolute Lymph 1.93 X10 3/uL Normal 0.83-4.51 [facility] Comment on above: Performed By: #### L 100.0100, L501.5200, L501.4020, L500.2500 #### [facility] [address] [place], [address] Absolute Neut 10.9 X10 3/uL High 2.0-7.7 [facility] Comment on above: Performed By: #### L 100.0100, L501.5200, L501.4020, L500.2500 #### [facility] [address] [place], [address] Basophils/100 WBC (Bld) 0.3 % Normal 0-1 [facility] Comment on above: Performed By: #### L 100.0100, L501.5200, L501.4020, L500.2500 #### [facility] [address] [place], [address] Eosinophils/100 WBC (Bld) 0.6 % Normal 0-5 [facility] Comment on above: Performed By: #### L 100.0100, L501.5200, L501.4020, L500.2500 #### [facility] [address] [place], [address] Erythrocyte distribution width (RBC) [Ratio] 14.6 % Normal 11.6-14.6 [facility] Comment on above: Performed By: #### L 100.0100, L501.5200, L501.4020, L500.2500 #### [facility] [address] [place], [address] Hematocrit (Bld) [Volume fraction] 35.9 % Low 37-47 [facility] Comment on above: Performed By: #### L 100.0100, L501.5200, L501.4020, L500.2500 #### [facility] [address] [place], [address] Hemoglobin (Bld) [Mass/Vol] 11.5 g/dL Low 12.0-15.0 [facility] Comment on above: Performed By: #### L 100.0100, L501.5200, L501.4020, L500.2500 #### [facility] [address] [place], [address] IG% 0.500 Normal 0.0-0.9 [facility] Comment on above: Result Comment: IG% - Immature Granulocytes (promyelocytes, myelocytes and metamyelocytes) > 1% indicates that a LEFT SHIFT is Present. Performed By: #### L 100.0100, L501.5200, L501.4020, L500.2500 #### [facility] [address] [place], [address] Lymphocytes/100 WBC (Bld) 14.0 % Low 19-41 [facility] Comment on above: Performed By: #### L 100.0100, L501.5200, L501.4020, L500.2500 #### [facility] [address] [place], [address] MCH (RBC) [Entitic mass] 31.7 pg Normal 27.0-32.0 [facility] Comment on above: Performed By: #### L 100.0100, L501.5200, L501.4020, L500.2500 #### [facility] [address] [place], [address] MCHC (RBC) [Mass/Vol] 32.0 g/dL Normal 32-36 [facility] Comment on above: Performed By: #### L 100.0100, L501.5200, L501.4020, L500.2500 #### [facility] [address] [place], [address] MCV (RBC) [Entitic vol] 98.9 fL Normal 81-99 [facility] Comment on above: Performed By: #### L 100.0100, L501.5200, L501.4020, L500.2500 #### [facility] [address] [place], [address] Monocytes/100 WBC (Bld) 5.0 % Normal 0-10 [facility] Comment on above: Performed By: #### L 100.0100, L501.5200, L501.4020, L500.2500 #### [facility] [address] [place], [address] Neutrophils/100 WBC (Bld) 79.6 % High 47-70 [facility] Comment on above: Performed By: #### L 100.0100, L501.5200, L501.4020, L500.2500 #### [facility] [address] [place], [address] Nucleated RBC (Bld) [#/Vol] 0 10*3/uL Normal 0-5 [facility] Comment on above: Performed By: #### L 100.0100, L501.5200, L501.4020, L500.2500 #### [facility] [address] [place], [address] Platelet mean volume (Bld) [Entitic vol] 10.5 fL Normal 6.2-12.0 [facility] Comment on above: Performed By: #### L 100.0100, L501.5200, L501.4020, L500.2500 #### [facility] [address] [place], [address] Platelets (Bld) [#/Vol] 323 10*3/uL Normal 150-450 [facility] Comment on above: Performed By: #### L 100.0100, L501.5200, L501.4020, L500.2500 #### [facility] [address] [place], [address] RBC (Bld) [#/Vol] 3.63 10*6/uL Low 4.2-5.4 [facility] Comment on above: Performed By: #### L 100.0100, L501.5200, L501.4020, L500.2500 #### [facility] [address] [place], [address] RDW SD 53.3 fl High 35.1-43.9 [facility] Comment on above: Performed By: #### L 100.0100, L501.5200, L501.4020, L500.2500 #### [facility] [address] [place], [address] WBC (Bld) [#/Vol] 13.7 10*3/uL High 4.4-11.0 [facility] Comment on above: Performed By: #### L 100.0100, L501.5200, L501.4020, L500.2500 #### [facility] [address] [place], [address] Chest 1 View (Portable)on Chest 1 View (Portable) [facility] Imaging Services [address] [place] [address] Chest 1 View (Portable) MR#: [id number] Acct: [id number] Name: ADELA WELLS Rep #: [id number] : 1945 F 79 From: Brandyn dorado MD PCP: Dr. Carlo Diaz MD Status: [facility] ER Study: Chest 1 View (Portable) Date of Exam: 06/10/24 Exam# [id number] Ordering Dr: Alfonso Padilla DO [id number] STUDY: X-RAY CHEST REASON FOR EXAM: Female, 79 years old. Chest pain TECHNIQUE: Single AP portable view of the chest. COMPARISON: Comparison is made with prior study May 09, 2024. FINDINGS: EKG electrodes are seen. The lungs are clear and expanded. There is no demonstrated pleural abnormality. Sternal cerclage wires and vascular clips are present from a prior sternotomy and coronary artery bypass graft procedure (CABG). Normal mediastinum and teri. Normal visualized pulmonary arteries. There is atherosclerotic calcification of the aortic arch with tortuosity. There are diffuse degenerative changes of the visualized thoracic spine. Normal visualized ribs, clavicles, and shoulders. There is no demonstrated abnormality of the visualized soft tissue structures of the upper abdomen. RAD/Chest 1 View (Portable) IMPRESSION: No acute abnormality is seen. Electronically Signed: Brandyn Cheng MD at 10:24 EDT Reading Location ID and State: [address] [place] [address] , Service support , CC: Dr. Carlo Diaz MD; Dr. Alfonso Padilla DO [employer] Central Office: Signed Normal [facility] Consultation - Cardiologyon 06-10-2024 Consultation - Cardiology [facility] Medical Records Department [address] [place] [id number] Consultation - Cardiology 06/10/24 1535 MR#: [id number] Acct: [id number] Name: ADELA WELLS Rep #: [id number] : 1945 79 From: Levy Graham MD PCP: Dr. Carlo Diaz MD Status:ADM IN Location: [facility] [id number] Assessment Plan Assessment/Plan (1) Chest pain: QUALIFIERS: Chest pain type: unspecified Qualified Code(s): R07.9 - Chest pain, unspecified PLAN: Patient has underlying coronary artery disease that could have caused angina in the setting of elevated blood pressure and heart rate. Patient states that someone told her to take her metoprolol once a day. She is on metoprolol to tartrate and we will increase it to 50 mg twice daily. Recommend increasing the amlodipine to 10 mg daily. Will be reasonable to give her 1 dose of IV Lasix while she is in the hospital. No further invasive cardiac workup is required at this time. (2) Elevated troponin: HPI Consult Data Date of Consult: 06/10/24 HPI Narrative Reason for Consultation: Chest pain, elevated troponin HPI Narrative: ADELA WELLS, is a 79 F who presents with chest pain. Patient states that the chest pain was all across her chest and was moderate in intensity. She is not able to describe if it was pressure-like or sharp. She states that it woke her up from sleep and she took 4 aspirin tablets and then went back to sleep. The pain then returned and she came to the emergency room. In the ER her high- sensitivity troponin was 113. Her chest pain has resolved at this time. Her blood pressure and heart rate were elevated when she presented to the ER. She states that last night as well her systolic blood pressure was in the high 150s and her heart rate was 103. Patient states that when she gets stressed out her blood pressure goes up. Yesterday her daughter underwent surgery at [facility] and she has been stressed out about this. Patient has history of coronary artery disease status post CABG and stents in the past. Her last coronary angiography in October of this year revealed patent HEART to LAD, severe disease in the small diagonal branch beyond the SVG anastomosis. Her RCA stents were patent with mild mild disease in the RCA and RPDA. Her AV groove circumflex stent was patent as well. The diagonal branch was very small and medical treatment was recommended and patient has been doing well on this so far. She does have chronic renal failure with a creatinine of around 2.2. Review of systems: All systems reviewed. 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 Obesity Atherosclerosis of coronary artery bypass graft without angina pectoris Essential hypertension Type 2 diabetes mellitus without complication Vertigo GERD (gastroesophageal reflux disease) Asthma Hyperlipidemia Hypothyroidism Home Medications ???Medication ???Instructions ???Recorded ???Last Taken ???Type montelukast 10 mg tablet 10 mg PO DAILY ASTHMA 12/17/13 06/09/24 History aspirin 81 mg tablet,delayed 81 mg PO QDAY HEART HEALTH 11/19/17 06/10/24 History release cetirizine 10 mg tablet (Zyrtec) 10 mg PO QDAY allergies 02/15/20 06/09/24 History allopurinol 100 mg tablet 100 mg PO DAILY GOUT 11/22/21 06/09/24 History spironolactone 25 mg tablet 25 mg PO BID HEART 08/28/22 06/09/24 History ipratropium 20 mcg-albuterol 100 1 puff inhalation Q6H BREATHING 09/20/22 06/09/24 History mcg/actuation mist for inhalation (Combivent Respimat) ferrous sulfate 325 mg (65 mg 325 mg PO DAILY SUPPLEMENT 10/04/22 06/10/24 History iron) tablet furosemide 40 mg tablet (Lasix) 40 mg PO DAILY diuretic 12/25/22 Unknown History cholecalciferol (vitamin D3) 25 25 mcg PO SUTUTHSA vitamin 06/05/23 06/08/24 History mcg (1,000 unit) tablet levothyroxine 100 mcg tablet 100 mcg PO DAILY THYROID 06/05/23 06/09/24 History metoprolol tartrate 50 mg tablet 50 mg PO DAILY blood pressure 06/05/23 06/09/24 History omeprazole 20 mg capsule,delayed 20 mg PO DAILY reflux 11/04/23 06/09/24 History release ezetimibe 10 mg tablet (Zetia) 10 mg PO DAILY 02/27/24 06/09/24 History prednisone 5 mg tablet 5 mg PO DAILY 02/27/24 06/10/24 History albuterol sulfate 2.5 mg/3 mL 1.25 mg inhalation TID PRN (more content not included)... Normal [facility] Emergency Department Summary on 06-10-2024 Emergency Department Summary [facility] Medical Records Department [address] [place] [address] Emergency Department Summary 06/10/24 MR#: [id number] Acct: [id number] Name: ADELA WELLS Rep #: [id number] : 1945 79 From: Alfonso Padilla DO PCP: Dr. Carlo Diaz MD Status:ADM IN Location: [place] [address] HPI History of Present Illness Chief Complaint: Chest Pain Informant: patient Onset/Context/Timing Onset: Today Activity at onset: sudden Timing: Intermittent and Lasts (30 to 60 minutes) Quality: Positive for Dull Location: Substernal, Right Chest and Left Chest Worsened By: Nothing Relieved By: NSAIDS (Aspirin) Associated Symptoms: Positive for Palpitations; Negative for Nausea, Vomiting, Diaphoresis, Dyspnea, Cough, Fever, Lightheadedness or Acid Reflux Narrative Narrative: Patient presents with chest pain that began this morning. Patient states that it woke her up around 4 AM today. Patient states it began rather suddenly. Patient states she took 4 baby aspirin and her pain improved. Patient states he was able to go back to sleep. Patient states the pain woke her up again later this morning. Patient describes it as a dull ache. Patient states it is over the upper chest and radiates into her neck. Patient states nothing makes it worse. Patient denies any nausea or vomiting. Patient denies any shortness of breath or cough. Patient denies any lightheadedness or dizziness. Patient states she did have some palpitations where she felt like her heart was racing. CVD Risk Factors: Positive for Hypertension and Diabetes; Negative for Hypercholesterolemia , Family History 1' PE Risk Factors: Negative for Recent Travel/Surgery, Recent Immobilization, Prior DVT or PE or Cancer [facility] Medical History CHF (congestive heart failure) Anemia NSTEMI (non-ST elevated myocardial infarction) Cardiomyopathy COVID-19 ( 04/2022) Insect bite History of non-ST elevation myocardial infarction (NSTEMI) (01/26/21) COPD (chronic obstructive pulmonary disease) Morbid obesity TIA (transient ischemic attack) Arm paresthesia, right CKD (chronic kidney disease) Atherosclerotic heart disease of teller coronary artery without angina 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 Obesity Atherosclerosis of coronary artery bypass graft without angina pectoris Essential hypertension Type 2 diabetes mellitus without complication Vertigo GERD (gastroesophageal reflux disease) Asthma Hyperlipidemia Hypothyroidism Home Medications ???Medication ???Instructions ???Recorded ???Last Taken ???Type montelukast 10 mg tablet 10 mg PO DAILY ASTHMA 12/17/13 06/09/24 History aspirin 81 mg tablet,delayed 81 mg PO QDAY HEART HEALTH 11/19/17 06/10/24 History release cetirizine 10 mg tablet (Zyrtec) 10 mg PO QDAY allergies 02/15/20 06/09/24 History allopurinol 100 mg tablet 100 mg PO DAILY GOUT 11/22/21 06/09/24 History spironolactone 25 mg tablet 25 mg PO BID HEART 08/28/22 06/09/24 History ipratropium 20 mcg-albuterol 100 1 puff inhalation Q6H BREATHING 09/20/22 06/09/24 History mcg/actuation mist for inhalation (Combivent Respimat) ferrous sulfate 325 mg (65 mg 325 mg PO DAILY SUPPLEMENT 10/04/22 06/10/24 History iron) tablet furosemide 40 mg tablet (Lasix) 40 mg PO DAILY diuretic 12/25/22 Unknown History cholecalciferol (vitamin D3) 25 25 mcg PO SUTUTHSA vitamin 06/05/23 06/08/24 History mcg (1,000 unit) tablet levothyroxine 100 mcg tablet 100 mcg PO DAILY THYROID 06/05/23 06/09/24 History metoprolol tartrate 50 mg tablet 50 mg PO DAILY blood pressure 06/05/23 06/09/24 History omeprazole 20 mg capsule,delayed 20 mg PO DAILY reflux 11/04/23 06/09/24 History release ezetimibe 10 mg tablet (Zetia) 10 mg PO DAILY 02/27/24 06/09/24 History prednisone 5 mg tablet 5 mg PO DAILY 02/27/24 06/10/24 History albuterol sulfate 2.5 mg/3 mL 1.25 mg inhalation TID PRN 05/09/24 06/09/24 History (0.083 %) solution for nebulization shortness of breath or wheezing ipratropium bromide 0.02 % 0.5 mg inhalation TID PRN 05/09/24 06/09/24 History solution for inhalation shortness of breath or wheezing biotin 10,000 mcg capsule 10,000 mcg PO DAILY 06/10/24 06/09/24 History folic acid 1 mg tablet 1 mg PO DAILY 06/10/24 06/09/24 History glipizide 2.5 mg tablet, extended 2.5 mg PO BID 06/10/24 06/09/24 History release 24 hr leflunomide 10 mg tablet 5 mg PO DAILY 06/10/24 06/09/24 History Allergy/AdvReac Type Severity Reaction Status Date / Time Anesthetics - Amide Type - Allergy Other Verified 06/10/24 08:13 Select A (Anesthetics - Amide Type) acetaminophen (From Tylenol) AdvReac Severe Other Verified 06/10/24 08:13 pravastatin AdvReac Intermediate Myalgias Verified (more content not included)... Normal [facility] H AND P Exam - Hospitaliston 06-10-2024 H&P Exam - Hospitalist [facility] Medical Records Department [address] [place] [address] H P Exam - Hospitalist 06/10/24 1231 MR#: [id number] Acct: [id number] Name: ADELA WELLS Rep #: [id number] : 1945 79 From: Presley Avila MD PCP: Dr. Carlo Diaz MD Status:ADM IN Location: [facility] [id number] HPI - General General Date of Admission: 06/10/24 Date of Service: 06/10/24 Chief Complaint: Chest pain today HPI Narrative ADELA WELLS, is a 79 F came to ED with chest pain that woke her up around 4 AM first, took 4 baby aspirin, pain improved but lasted for about half an hour. She went to bed then again woke up at 6 AM and this time also it lasted more than half an hour therefore she came to ED. She denies as dull ache, feeling like heaviness left-sided with radiation to bilateral carotids, 5-6/10 intensity. She denies shortness of breath or dizziness, vertigo, nausea, vomiting, palpitation or diaphoresis. In ED, twelve-lead EKG was done which shows mild ST depression V1-V3 X1 and aVL. QTc 447 ms. Sinus tachycardia 108 beats per. First troponin elevated. She was evaluated in ED on 05/10/2024 for similar complaint of chest pain and at that time 2 troponins were negative therefore was discharged. She had cardiac cath 7 months ago and at that time medical management was recommended. 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 Obesity Atherosclerosis of coronary artery bypass graft without angina pectoris Essential hypertension Type 2 diabetes mellitus without complication Vertigo GERD (gastroesophageal reflux disease) Asthma Hyperlipidemia Hypothyroidism Home Medications ???Medication ???Instructions ???Recorded ???Last Taken ???Type montelukast 10 mg tablet 10 mg PO DAILY ASTHMA 12/17/13 06/09/24 History aspirin 81 mg tablet,delayed 81 mg PO QDAY HEART HEALTH 11/19/17 06/10/24 History release cetirizine 10 mg tablet (Zyrtec) 10 mg PO QDAY allergies 02/15/20 06/09/24 History allopurinol 100 mg tablet 100 mg PO DAILY GOUT 11/22/21 06/09/24 History spironolactone 25 mg tablet 25 mg PO BID HEART 08/28/22 06/09/24 History ipratropium 20 mcg-albuterol 100 1 puff inhalation Q6H BREATHING 09/20/22 06/09/24 History mcg/actuation mist for inhalation (Combivent Respimat) ferrous sulfate 325 mg (65 mg 325 mg PO DAILY SUPPLEMENT 10/04/22 06/10/24 History iron) tablet furosemide 40 mg tablet (Lasix) 40 mg PO DAILY diuretic 12/25/22 Unknown History cholecalciferol (vitamin D3) 25 25 mcg PO SUTUTHSA vitamin 06/05/23 06/08/24 History mcg (1,000 unit) tablet levothyroxine 100 mcg tablet 100 mcg PO DAILY THYROID 06/05/23 06/09/24 History metoprolol tartrate 50 mg tablet 50 mg PO DAILY blood pressure 06/05/23 06/09/24 History omeprazole 20 mg capsule,delayed 20 mg PO DAILY reflux 11/04/23 06/09/24 History release ezetimibe 10 mg tablet (Zetia) 10 mg PO DAILY 02/27/24 06/09/24 History prednisone 5 mg tablet 5 mg PO DAILY 02/27/24 06/10/24 History albuterol sulfate 2.5 mg/3 mL 1.25 mg inhalation TID PRN 05/09/24 06/09/24 History (0.083 %) solution for nebulization shortness of breath or wheezing ipratropium bromide 0.02 % 0.5 mg inhalation TID PRN 05/09/24 06/09/24 History solution for inhalation shortness of breath or wheezing biotin 10,000 mcg capsule 10,000 mcg PO DAILY 06/10/24 06/09/24 History folic acid 1 mg tablet 1 mg PO DAILY 06/10/24 06/09/24 History glipizide 2.5 mg tablet, extended 2.5 mg PO BID 06/10/24 06/09/24 History release 24 hr leflunomide 10 mg tablet 5 mg PO DAILY 06/10/24 06/09/24 History Allergy/AdvReac Type Severity Reaction Status Date / Time Anesthetics - Amide Type - Allergy Other Verified 06/10/24 08:13 Select A (Anesthetics - Amide Type) acetaminophen (From Tylenol) AdvReac Severe Other Verified 06/10/24 08:13 pravastatin AdvReac Intermediate Myalgias Verified 06/10/24 08:13 after 15 years of taking cinnamon AdvReac Unknown Unknown Verified 06/10/24 08:13 Penicillins AdvReac Unknown Unknown Verified 06/10/24 08:13 ezetimibe (From Zetia) AdvReac myalgias Verified 06/10/24 08:13 Family History Mother , age 86, advanced age No problems noted. Father Prostate cancer Deon (more content not included)... Normal [facility] L501.4020on 06-10-2024 TROPONIN-I HS 187 pg/mL Invalid Interpretation Code 3.0-54.0 [facility] Comment on above: Order Comment: 'TROP ' Serial specimen #1, #2 or #3: 1 Result Comment: Crit ical Result(s) Called at: 15:57:01 06/10/2024 by: Tricia Yancey to Karin Arzate. Results read back by same. Please Note: New Test Units and Gender Specific Reference Ranges. For more information see Policy Stat Procedure [place] High Sensitivity Troponin (TNIH) and attachments. Performed By: #### L 100.0100, L501.5200, L501.4020, L500.2500 #### [facility] [address] [place], [address] TROPONIN-I HS 113 pg/mL High 3.0-54.0 [facility] Comment on above: Result Comment: Plea se Note: New Test Units and Gender Specific Reference Ranges. For more information see Policy Stat Procedure [place] High Sensitivity Troponin (TNIH) and attachments. Performed By: #### L 100.0100, L501.5200, L501.4020, L500.2500 #### [facility] [address] [place], [address] L501.5425on 06-10-2024 TROPONIN-I HS 43 pg/mL Normal 3.0-54.0 [facility] Comment on above: Order Comment: 1Y Result Comment: Plea se Note: New Test Units and Gender Specific Reference Ranges. For more information see Policy Stat Procedure [place] High Sensitivity Troponin (TNIH) and attachments. Performed By: #### L 100.0100, L501.5200, L501.4020, L500.2500 #### [facility] [address] [place], [address] Magnesiumon 06-10-2024 Magnesium [Mass/Vol] 2.2 mg/dL Normal 1.6-2.6 [facility] Comment on above: Performed By: #### L 100.0100, L501.5200, L501.4020, L500.2500 #### [facility] [address] [place], [address] Partial Thromboplast Timeon 06-10-2024 aPTT Coag (Bld) [Time] 125.2 s Invalid Interpretation Code 24.1-36.2 [facility] Comment on above: Result Comment: CRIT ICAL VALUE CALLED TO TVECCHIO 06/10/241958 Jessie Anna. RESULTS READ BACK BY SAME. Performed By: #### L 300.4310 ####[facility] [id number] [place], [address] aPTT Coag (Bld) [Time] 26.6 s Normal 24.1-36.2 [facility] Comment on above: Performed By: #### L 100.0100, L501.5200, L501.4020, L500.2500 #### [facility] [address] [place], [address] Phosphoruson 06-10-2024 Phosphate [Mass/Vol] 3.1 mg/dL Normal 2.5-4.9 [facility] Comment on above: Performed By: #### L 100.0100, L501.5200, L501.4020, L500.2500 #### [facility] [address] [place], [address] Prothrombin Time w/INRon INR Coag (PPP) [Relative time] 1.0 {INR} Normal [facility] Comment on above: Performed By: #### L 100.0100, L501.5200, L501.4020, L500.2500 #### [facility] [address] [place], [address] PT Coag (PPP) [Time] 13.5 s Normal 11.7-14.9 [facility] Comment on above: Performed By: #### L 100.0100, L501.5200, L501.4020, L500.2500 #### [facility] [address] [place], [address] Urinalysis, Completeon 06-10 BACTERIA 4+ /hpf Normal None Seen [facility] Comment on above: Order Comment: 'TROP ' Serial specimen #1, #2 or #3: 1 Performed By: #### L 100.0100, L501.5200, L501.4020, L500.2500 #### [facility] [address] [place], [address] RBC 25-50 SEEN Normal 0-5 [facility] Comment on above: Order Comment: 'TROP ' Serial specimen #1, #2 or #3: 1 Performed By: #### L 100.0100, L501.5200, L501.4020, L500.2500 #### [facility] [address] [place], [address] WBC >100 SEEN Normal 0-5 [facility] Comment on above: Order Comment: 'TROP ' Serial specimen #1, #2 or #3: 1 Result Comment: Micr oscopic field is filled. Other elements may be obscured. Performed By: #### L 100.0100, L501.5200, L501.4020, L500.2500 #### [facility] [address] [place], [address] BILIRUBIN URINE Negative Normal Negative [facility] Comment on above: Order Comment: 'TROP ' Serial specimen #1, #2 or #3: 1 Performed By: #### L 100.0100, L501.5200, L501.4020, L500.2500 #### [facility] [address] [place], [address] Clarity (U) Cloudy Normal Clear [facility] Comment on above: Order Comment: 'TROP ' Serial specimen #1, #2 or #3: 1 Performed By: #### L 100.0100, L501.5200, L501.4020, L500.2500 #### [facility] [address] [place], [address] Color (U) Straw Normal Yellow [facility] Comment on above: Order Comment: 'TROP ' Serial specimen #1, #2 or #3: 1 Performed By: #### L 100.0100, L501.5200, L501.4020, L500.2500 #### [facility] [address] [place], [address] GLUCOSE, UR Normal Normal Normal [facility] Comment on above: Order Comment: 'TROP ' Serial specimen #1, #2 or #3: 1 Performed By: #### L 100.0100, L501.5200, L501.4020, L500.2500 #### [facility] [address] [place], [address] KETONE UR Negative Normal Negative [facility] Comment on above: Order Comment: 'TROP ' Serial specimen #1, #2 or #3: 1 Performed By: #### L 100.0100, L501.5200, L501.4020, L500.2500 #### [facility] [address] [place], [address] LEUK ESTERASE 500 /ul Abnormal Negative [facility] Comment on above: Order Comment: 'TROP ' Serial specimen #1, #2 or #3: 1 Performed By: #### L 100.0100, L501.5200, L501.4020, L500.2500 #### [facility] [address] [place], [address] Nitrite Ql (U) Negative Normal Negative [facility] Comment on above: Order Comment: 'TROP ' Serial specimen #1, #2 or #3: 1 Performed By: #### L 100.0100, L501.5200, L501.4020, L500.2500 #### [facility] [address] [place], [address] OCCULT BLOOD-UR 50 /ul Abnormal Negative [facility] Comment on above: Order Comment: 'TROP ' Serial specimen #1, #2 or #3: 1 Performed By: #### L 100.0100, L501.5200, L501.4020, L500.2500 #### [facility] [address] [place], [address] pH UR 6.0 Normal 5.0 - 8.0 [facility] Comment on above: Order Comment: 'TROP ' Serial specimen #1, #2 or #3: 1 Performed By: #### L 100.0100, L501.5200, L501.4020, L500.2500 #### [facility] [address] [place], [address] PROT DIPSTX 30 mg/dl Abnormal Negative [facility] Comment on above: Order Comment: 'TROP ' Serial specimen #1, #2 or #3: 1 Performed By: #### L 100.0100, L501.5200, L501.4020, L500.2500 #### [facility] [address] [place], [address] SP.GR. DIPSTX 1.015 Normal 1.002-1.030 [facility] Comment on above: Order Comment: 'TROP ' Serial specimen #1, #2 or #3: 1 Performed By: #### L 100.0100, L501.5200, L501.4020, L500.2500 #### [facility] [address] [place], [address] UROBILI Normal Normal Normal [facility] Comment on above: Order Comment: 'TROP ' Serial specimen #1, #2 or #3: 1 Performed By: #### L 100.0100, L501.5200, L501.4020, L500.2500 #### [facility] [address] [place], [address] EPI,SQUAMOUS 0 SEEN Normal 5-10 [facility] Comment on above: Order Comment: 'TROP ' Serial specimen #1, #2 or #3: 1 Performed By: #### L 100.0100, L501.5200, L501.4020, L500.2500 #### [facility] [address] [place], [address] Mucus Ql (Urine sed) 0 SEEN Normal [facility] Comment on above: Order Comment: 'TROP ' Serial specimen #1, #2 or #3: 1 Performed By: #### L 100.0100, L501.5200, L501.4020, L500.2500 #### [facility] [address] [place], [address] Venous Duplex US - Scott Extre mon 06-10-2024 Venous Duplex US - Scott Extrem [facility] [address] [place] [address] Venous Duplex US - Scott Extrem 06/10/24 1529 MR#: [id number] Acct: [id number] Name: ADELA WELLS Rep #: [id number] : 1945 79 From: Alfonso Neville MD Attending Dr: Dr. Presley Avila MD Status: ADM IN Ordering Dr: Presley Avila MD Date: 06/10/24 Location: [facility] Sex: F C Admitted: 06/10/24 Version 2 Reason For Study: Bilateral leg swelling RIGHT LEFT GSV is absent. GSV is absent. CFV is compressible, spontaneous, phasic, CFV is compressible, spontaneous, phasic, competent and demonstrates normal competent, and demonstrates normal augmentation. augmentation. FV is compressible, spontaneous, phasic, FV is compressible, spontaneous, phasic, competent and demonstrates normal competent and demonstrates normal augmentation. augmentation. POP V is compressible, spontaneous, phasic, POP V is compressible, spontaneous, phasic, competent and demonstrates normal competent and demonstrates normal augmentation. augmentation. T/P Trunk is compressible. T/P Trunk is compressible. PTV is compressible. PTV is compressible. RT PerV is compressible. LT PerV is compressible. Procedure This is a venous duplex using B-mode, color flow and spectral Doppler. Exam performed portable in patient room. A preliminary report was called and/or faxed to PCU. VL/Venous Duplex US - Scott Extrem Interpretation Summary Deep veins of the bilateral lower extremities are patent and compressible segmentally. There is no evidence of bilateral lower extremity deep vein thrombosis. Ordering Physician: Presley Avila Referring Physician: Carlo Diaz Performed By: Lexi Tse RVT 06/10/241712 Date Alfonso Neville MD CC: Dr. Carlo Diaz MD; Dr. Presley Avila MD Date Dictated: 06/10/24 152 Date Transcribed: 06/10/241708 [employer] Central Office: Signed Normal [facility] URINE CULTURE [CCL]on 2023 Bacteria identified Cx Nom (U) URCUL See Results Below See Below CULTURE, URINE NORMAL UROGENITAL NED >=100,000 CFU/ml Normal urogenital ned SOURCE: Urine (Nonspecific) [place] [address] Brock Chavez III, M.D. [id number] SEND TO IC YES Normal [facility] Comment on above: Performed By: #### 2 75424 #### [place] [address] URINALYSIS WITH MICROSCOPYon 05-25-[address] [facility] Comment on above: Performed By: #### 2 52336 #### [facility],[address] [place], [place] [address] Bacteria 2+ Normal [facility] Comment on above: Performed By: #### 2 27877 #### [facility],[address] [place], [place] [address] Bilirubin Ql (U) Negative Normal NORMAL: NEGATIVE [facility] Comment on above: Performed By: #### 2 73598 #### [facility],[address] [place], [place] [address] Casts NONE Normal [facility] Comment on above: Performed By: #### 2 69975 #### [facility],[address] [place] [address] Clarity (U) very cloudy Normal NORMAL: CLEAR [facility] Comment on above: Performed By: #### 2 71999 #### [facility],[address] [place] [address] Color (U) p.yel Normal NORMAL: YELLOW [facility] Comment on above: Performed By: #### 2 85169 #### [facility],[address] [place] [address] Crystals LM Nom (Urine sed) NONE Normal [facility] Comment on above: Performed By: #### 2 15149 #### [facility],[address] [place], [place] [address] Epi Cells NONE Normal [facility] Comment on above: Performed By: #### 2 92802 #### [facility],[address] [place], [place] [address] Glucose Ql (U) NORM Normal NORMAL: NORMAL [facility] Comment on above: Performed By: #### 2 96807 #### [facility],[address] [place] [address] Hemoglobin Ql (U) 50 Abnormal NORMAL: NEGATIVE [facility] Comment on above: Performed By: #### 2 73191 #### [facility],[address] [place] [address] Ketone Negative Normal NORMAL: NEGATIVE [facility] Comment on above: Performed By: #### 2 06142 #### [facility],[address] [place] [address] Leukocytes 500 Abnormal NORMAL: NEGATIVE [facility] Comment on above: Result Comment: URIN E MICROSCOPIC Performed By: #### 2 98438 #### [facility],[address] [place] [address] [facility] Comment on above: Performed By: #### 2 23633 #### [facility],[address] [place] [address] Nitrite Ql (U) Negative Normal NORMAL: NEGATIVE [facility] Comment on above: Performed By: #### 2 95640 #### [facility],[address] [place] [address] pH (U) 5 [pH] Normal NORMAL: 5.0-8.0 [facility] Comment on above: Performed By: #### 2 41294 #### [facility],[address] [place] [address] Protein Ql (U) 30 Abnormal NORMAL: NEGATIVE [facility] Comment on above: Performed By: #### 2 80690 #### [facility],[address] [place] [address] Rbc NONE Normal 0-3 / hpf [facility] Comment on above: Performed By: #### 2 74259 #### [facility],[address] [place] [address] Sp [place] 1.015 Normal NORMAL: 1.010-1.030 [facility] Comment on above: Performed By: #### 2 85400 #### [facility],[address] [place] [address] Specimen Type R Normal [facility] Comment on above: Performed By: #### 2 93497 #### [facility],[address] [place] [address] URINALYSIS WITH MICROSCOPY Normal [facility] Comment on above: Result Comment: URIN ALYSIS Performed By: #### 2 01453 #### [facility],[address] [place] [address] Urobilinog NORM Normal NORMAL: NORMAL [facility] Comment on above: Performed By: #### 2 62092 #### [facility],[address] [place] [address] WBC (U) [#/Vol] /uL Normal 0-5 / hpf [facility] Comment on above: Performed By: #### 2 54524 #### [facility],[address] [place] [address] [facility] Comment on above: Performed By: #### 2 01320 #### [facility],[address] [place] [address] CCP AB, IgG AND IgA [CCL]on 05-17-2024 CCP AB, IgG AND IgA [CCL] Normal [facility] Comment on above: Result Comment: _CCP AB, IgG AND IgA [CCL]_ SEE SEPARATE REPORT Performed By: #### 2 80868 #### [facility],[address] [place], [place] [address] LUCY BY IFA SCREEN [CCL]on LUCY Titer 1:[address] [facility] Comment on above: Performed By: #### 2 22051 #### [facility],[address] [place], [place] [address] Nuclear Ab IF (S) [Titer] Positive Abnormal Negative [facility] Comment on above: Result Comment: Anti -nuclear antibody test is used as an aid in diagnosis of systemic autoimmune diseases. Where positive and clinically warranted, follow-up using disease-specific testing is recommended. Low positive titers are not uncommon with advanced age, certain chronic infections, and malignancies among others. Test methodology: Indirect fluorescence immunoassay (IFA) using HEp-2 cells. Performed By: #### 2 31757 #### [facility],[address] [place] [address] HEP B SURFACE AB, QUANT [CCL ]on 05-13-2024 HepB Surface Ab,Qual Negative Normal [facility] Comment on above: Result Comment: No s erological evidence of immunity to Hepatitis B Virus. Performed By: #### 2 40863 #### [facility],[address] [place], [place] [address] HepB SurfaceAb,Quant <8.[address] [facility] Comment on above: Result Comment: <8 m IU/mL: No serological evidence of immunity to Hepatitis B Virus. >/= 8 to <12 mIU/mL: No serological evidence of immunity to Hepatitis B Virus. >/= 12 mIU/mL: Consistent with serological evidence of immunity to Hepatitis B Virus. [place] [address] [place] [address] Brock Chavez III, M.D. [id number] Performed By: #### 2 60132 #### [address] [address] HEP B SURFACE AG [CCL]on Hepatitis B Surf. Ag Negative Normal Negative [facility] Comment on above: Result Comment: [facility] [employer] [facility] [place] [address] Brock Chavez III, M.D. [id number] Performed By: #### 2 87201 #### [address] [address] HEPATITIS C AB IA W/CONFIRM [CCL]on 05-13-2024 Hepatitis C Ab IA Negative Normal Negative [facility] Comment on above: Result Comment: The result suggests no evidence of active infection with Hepatitis C virus. Should recent infection be suspected, repeat testing may be considered 4-6 weeks after this draw. [place] [address] [place] [address] Brock Chavez III, M.D. [id number] Performed By: #### 2 55657 #### [address] [address] RHEUMATOID FACTOR [CCL]on Rheumatoid Factor >650 High <16 [facility] Comment on above: Result Comment: [facility] [address] [place] [address] Brock Chavez III, M.D. [id number] Performed By: #### 2 65853 #### [facility],[address] [place] [address] C-REACTIVE PROTEINon 024 CRP 0.55 mg/dl Normal 0.00 - 0.90 [facility] Comment on above: Performed By: #### 2 80545 #### [facility],[address] [place] [address] CBC + DIFFon 05-11-2024 Baso # 0.02 x10EE3/UL Normal 0.00 - 0.10 [facility] Comment on above: Performed By: #### 2 76351 #### [facility],[address] [place], [place] [address] Basophils/100 WBC (Bld) 0.2 % Normal 0.0 - 2.0 [facility] Comment on above: Performed By: #### 2 32401 #### [facility],[address] [place] [address] CBC + DIFF Normal [facility] Comment on above: Result Comment: CBC- COMPLETE BLOOD COUNT Performed By: #### 2 27064 #### [facility],[address] [place] [address] EO # 0.17 x10EE3/UL Normal 0.00 - 0.50 [facility] Comment on above: Performed By: #### 2 01303 #### [facility],[address] [place] [address] Eosinophils/100 WBC (Bld) 1.5 % Normal 0.0 - 7.0 [facility] Comment on above: Performed By: #### 2 63427 #### [facility],[address] [place] [address] Erythrocyte distribution width (RBC) [Ratio] 13.7 % Normal 12.0 - 15.6 [facility] Comment on above: Performed By: #### 2 93567 #### [facility],[address] [place] [address] Hematocrit (Bld) [Volume fraction] 34.1 % Normal 34.0 - 46.0 [facility] Comment on above: Performed By: #### 2 68242 #### [facility],[address] [place] [address] Hemoglobin (Bld) [Mass/Vol] 11.5 g/dL Low 12.0 - 16.0 [facility] Comment on above: Performed By: #### 2 36990 #### [facility],[address] [place] [address] Lymph # 2.52 x10EE3/UL Normal 0.80 - 2.80 [facility] Comment on above: Performed By: #### 2 15429 #### [facility],[address] [place] [address] Lymphocytes/100 WBC (Bld) 22.2 % Normal 20.0 - 45.0 [facility] Comment on above: Performed By: #### 2 68843 #### [facility],[address] [place] [address] MANUAL DIFF N/A Normal [facility] Comment on above: Performed By: #### 2 61688 #### [facility],[address] [place], [place] [address] MCH (RBC) [Entitic mass] 32 pg Normal 27 - 33 [facility] Comment on above: Performed By: #### 2 19938 #### [facility],[address] [place], [place] [address] MCHC 34 X10 3 Normal 32 - 36 [facility] Comment on above: Performed By: #### 2 49865 #### [facility],[address] [place], [place] [address] MCV (RBC) [Entitic vol] 94 fL Normal 80 - 99 [facility] Comment on above: Performed By: #### 2 69369 #### [facility],[address] [place] [address] Burnett # 0.44 x10EE3/UL Normal 0.20 - 1.00 [facility] Comment on above: Performed By: #### 2 04508 #### [facility],[address] [place] [address] MONOS % 3.8 % Normal 0.0 - 10.0 [facility] Comment on above: Performed By: #### 2 64334 #### [facility],[address] [place], [place] [address] Morphology [place] (Bld) [Interp] N/A Normal [facility] Comment on above: Performed By: #### 2 85229 #### [facility],[address] [place] [address] Neut # 8.18 x10EE3/UL High 1.50 - 7.10 [facility] Comment on above: Performed By: #### 2 01905 #### [facility],[address] [place] [address] Neutrophils/100 WBC (Bld) 72.2 % Normal 46.0 - 76.0 [facility] Comment on above: Performed By: #### 2 80394 #### [facility],[address] [place] [address] PLATELET 384 x10EE3/UL Normal 150 - 450 [facility] Comment on above: Performed By: #### 2 15034 #### [facility],[address] [place] [address] 829[address] Platelet mean volume (Bld) [Entitic vol] 7.6 fL Normal 6.6 - 10.5 [facility] Comment on above: Result Comment: AUTO MATED DIFFERENTIAL Performed By: #### 2 63804 #### [facility],[address] [place] [address] 15777 RBC 3.62 x 10EE6/UL Low 4.10 - 5.30 [facility] Comment on above: Performed By: #### 2 36911 #### [facility],[address] [place] [address] WBC 11.3 x 10EE3/UL High 4.5 - 10.8 [facility] Comment on above: Performed By: #### 2 74876 #### [facility],[address] [place] [address] CMP with eGFRon 05-11-[address] AGE [address] [facility] Comment on above: Performed By: #### 2 83550 #### [facility],[address] [place] [address] Albumin [Mass/Vol] 3.3 g/dL Low 3.4 - 5.0 [facility] Comment on above: Performed By: #### 2 80901 #### [facility],[address] [place] [address] Albumin/Globulin [Mass ratio] 0.8 {ratio} Low 0.9 - 1.6 [facility] Comment on above: Performed By: #### 2 32347 #### [facility],[address] [place] [address] ALK PHOS 92 U/L Normal 46 - 116 [facility] Comment on above: Performed By: #### 2 49281 #### [facility],[address] [place] [address] 10191 ALT [Catalytic activity/Vol] 23 U/L Normal 16 - 63 [facility] Comment on above: Performed By: #### 2 70283 #### [facility],[address] [place] [address] Anion gap [Moles/Vol] 13 mmol/L Normal 10 - 20 [facility] Comment on above: Performed By: #### 2 12417 #### [facility],[address] [place] [address] 34261 AST [Catalytic activity/Vol] 17 U/L Normal 13 - 39 [facility] Comment on above: Performed By: #### 2 77826 #### [facility],[address] [place] [address] 23582 B/C RATIO 19 ratio Normal 0 - 30 [facility] Comment on above: Performed By: #### 2 12500 #### [facility],[address] [place] [address] Bilirubin [Mass/Vol] 0.3 mg/dL Normal 0.2 - 1.0 [facility] Comment on above: Performed By: #### 2 10961 #### [facility],[address] [place] [address] Calcium [Mass/Vol] 9.2 mg/dL Normal 8.5 - 10.1 [facility] Comment on above: Performed By: #### 2 03956 #### [facility],[address] [place] [address] 29877 Chloride [Moles/Vol] 100 mmol/L Normal 98 - 107 [facility] Comment on above: Performed By: #### 2 72966 #### [facility],[address] [place] [address] 92416 CMP with eGFR Normal [facility] Comment on above: Result Comment: COMP REHENSIVE METABOLIC PANEL Performed By: #### 2 58434 #### [facility],[address] [place] [address] CO2 [Moles/Vol] 26.9 mmol/L Normal 21.0 - 32.0 [facility] Comment on above: Performed By: #### 2 73972 #### [facility],[address] [place] [address] Creatinine [Mass/Vol] 2.78 mg/dL High 0.55 - 1.02 [facility] Comment on above: Performed By: #### 2 83472 #### [facility],[address] [place] [address] 01012 eGFR 16 ML/MINUTE Low 60 - 999 [facility] Comment on above: Performed By: #### 2 38038 #### [facility],[address] [place] [address] 685[address] eGFR(AA) 20 ML/MINUTE Low 60 - 999 [facility] Comment on above: Result Comment: ACCO RDING TO THE NATIONAL KIDNEY DISEASE EDUCATION PROGRAM(NKDE), A NORMAL eGFR IS A VALUE GREATER THAN OR EQUAL TO 60 ML/MIN/1.73 SQ METERS. CHRONIC KIDNEY DISEASE: <60mL/MIN/1.73 SQ METERS KIDNEY FAILURE: <15mL/MIN/1.73 SQ METERS THIS TEST SHOULD ONLY BE USED FOR PATIENTS 18 YEARS OF AGE AND OLDER. Performed By: #### 2 17950 #### [address] [address] Globulin (S) [Mass/Vol] 4.1 g/dL High 1.5 - 3.8 [facility] Comment on above: Performed By: #### 2 31092 #### [facility],[address] [place] [address] Glucose [Mass/Vol] 257 mg/dL High 74 - 106 [facility] Comment on above: Performed By: #### 2 27522 #### [facility],[address] [place] [address] Potassium [Moles/Vol] 4.4 mmol/L Normal 3.5 - 5.1 [facility] Comment on above: Performed By: #### 2 24131 #### [facility],[address] [place] [address]221 Protein [Mass/Vol] 7.4 g/dL Normal 6.4 - 8.2 [facility] Comment on above: Performed By: #### 2 22838 #### [facility],[address] [place] [address] Sodium [Moles/Vol] 135 mmol/L Low 136 - 145 [facility] Comment on above: Performed By: #### 2 76976 #### [facility],[address] [place] [address] 87085 Urea nitrogen [Mass/Vol] 53 mg/dL High 7 - 18 [facility] Comment on above: Performed By: #### 2 95600 #### [facility],[address] [place] [address] 72543 SEDRATEon 05-11-2024 SEDRATE 54 mm/hr High 0 - 30 [facility] Comment on above: Performed By: #### 2 16296 #### [facility],[address] [place] [address] Basic Metabolic Profile (BMP )on 05-10-2024 BUN/CRE 20.8 RATIO High 10-20 [facility] Comment on above: Order Comment: 'TROP ' Serial specimen #1, #2 or #3: 1 Performed By: #### L 100.0100, L501.5200, L501.4020, L500.2500 #### [facility] [address] [place], [address] CA,Total 9.4 mg/dL Normal 8.5-10.1 [facility] Comment on above: Order Comment: 'TROP ' Serial specimen #1, #2 or #3: 1 Performed By: #### L 100.0100, L501.5200, L501.4020, L500.2500 #### [facility] [address] [place], [address] Chloride [Moles/Vol] 103 mmol/L Normal 98-107 [facility] Comment on above: Order Comment: 'TROP ' Serial specimen #1, #2 or #3: 1 Performed By: #### L 100.0100, L501.5200, L501.4020, L500.2500 #### [facility] [address] [place], [address] CO2 [Moles/Vol] 25.0 mmol/L Normal 21.0-32.0 [facility] Comment on above: Order Comment: 'TROP ' Serial specimen #1, #2 or #3: 1 Performed By: #### L 100.0100, L501.5200, L501.4020, L500.2500 #### [facility] [address] [place], [address] Creatinine [Mass/Vol] 2.50 mg/dL High 0.55-1.02 [facility] Comment on above: Order Comment: 'TROP ' Serial specimen #1, #2 or #3: 1 Result Comment: The validity of the calculated GFR GFRAA in patients over 70 years has not been determined. Clinical correlation is essential. Performed By: #### L 100.0100, L501.5200, L501.4020, L500.2500 #### [facility] [address] [place], [address] ECRCL 18.85 ml/min Normal [facility] Comment on above: Order Comment: 'TROP ' Serial specimen #1, #2 or #3: 1 Performed By: #### L 100.0100, L501.5200, L501.4020, L500.2500 #### [facility] [address] [place], [address] EST GFR - AA 24 mL/min Low >60 [facility] Comment on above: Order Comment: 'TROP ' Serial specimen #1, #2 or #3: 1 Result Comment: Afri can Guyanese GFR Calc Performed By: #### L 100.0100, L501.5200, L501.4020, L500.2500 #### [facility] [address] [place], [address] GAP 7 Normal 5-15 [facility] Comment on above: Order Comment: 'TROP ' Serial specimen #1, #2 or #3: 1 Performed By: #### L 100.0100, L501.5200, L501.4020, L500.2500 #### [facility] [address] [place], [address] GFR/1.73 sq M.predicted among non-blacks MDRD (S/P/Bld) [Vol rate/Area] 20 mL/min/{1.73_m2} Low >60 [facility] Comment on above: Order Comment: 'TROP ' Serial specimen #1, #2 or #3: 1 Result Comment: Non- GFR Calc Performed By: #### L 100.0100, L501.5200, L501.4020, L500.2500 #### [facility] [address] [place], [address] Glucose [Mass/Vol] 189 mg/dL High 74-106 [facility] Comment on above: Order Comment: 'TROP ' Serial specimen #1, #2 or #3: 1 Result Comment: Fast ing Glucose result greater than or equal to 126 mg/dL suggests DIABETES MELLITUS per A.D.A. criteria. Performed By: #### L 100.0100, L501.5200, L501.4020, L500.2500 #### [facility] [address] [place], [address] Potassium [Moles/Vol] 4.4 mmol/L Normal 3.5-5.1 [facility] Comment on above: Order Comment: 'TROP ' Serial specimen #1, #2 or #3: 1 Performed By: #### L 100.0100, L501.5200, L501.4020, L500.2500 #### [facility] [address] [place], [address] Sodium [Moles/Vol] 135 mmol/L Low 136-145 [facility] Comment on above: Order Comment: 'TROP ' Serial specimen #1, #2 or #3: 1 Performed By: #### L 100.0100, L501.5200, L501.4020, L500.2500 #### [facility] [address] [place], [address] Urea nitrogen [Mass/Vol] 52 mg/dL High 7-18 [facility] Comment on above: Order Comment: 'TROP ' Serial specimen #1, #2 or #3: 1 Performed By: #### L 100.0100, L501.5200, L501.4020, L500.2500 #### [facility] [address] [place], [address] CBC W/Diff, Automatedon 09-0 2-4 Absolute Lymph 3.25 X10 3/uL Normal 0.83-4.51 [facility] Comment on above: Performed By: #### L 100.0100, L501.5200, L501.4020, L500.2500 #### [facility] [address] [place], [address] Absolute Neut 8.8 X10 3/uL High 2.0-7.7 [facility] Comment on above: Performed By: #### L 100.0100, L501.5200, L501.4020, L500.2500 #### [facility] [address] [place], [address] Basophils/100 WBC (Bld) 0.5 % Normal 0-1 [facility] Comment on above: Performed By: #### L 100.0100, L501.5200, L501.4020, L500.2500 #### [facility] [address] [place], [address] Eosinophils/100 WBC (Bld) 2.0 % Normal 0-5 [facility] Comment on above: Performed By: #### L 100.0100, L501.5200, L501.4020, L500.2500 #### [facility] [address] [place], [address] Erythrocyte distribution width (RBC) [Ratio] 13.8 % Normal 11.6-14.6 [facility] Comment on above: Performed By: #### L 100.0100, L501.5200, L501.4020, L500.2500 #### [facility] [address] [place], [address] Hematocrit (Bld) [Volume fraction] 36.7 % Low 37-47 [facility] Comment on above: Performed By: #### L 100.0100, L501.5200, L501.4020, L500.2500 #### [facility] [address] [place], [address] Hemoglobin (Bld) [Mass/Vol] 11.7 g/dL Low 12.0-15.0 [facility] Comment on above: Performed By: #### L 100.0100, L501.5200, L501.4020, L500.2500 #### [facility] [address] [place], [address] IG% 0.800 Normal 0.0-0.9 [facility] Comment on above: Result Comment: IG% - Immature Granulocytes (promyelocytes, myelocytes and metamyelocytes) > 1% indicates that a LEFT SHIFT is Present. Performed By: #### L 100.0100, L501.5200, L501.4020, L500.2500 #### [facility] [address] [place], [address] Lymphocytes/100 WBC (Bld) 24.6 % Normal 19-41 [facility] Comment on above: Performed By: #### L 100.0100, L501.5200, L501.4020, L500.2500 #### [facility] [address] [place], [address] MCH (RBC) [Entitic mass] 31.0 pg Normal 27.0-32.0 [facility] Comment on above: Performed By: #### L 100.0100, L501.5200, L501.4020, L500.2500 #### [facility] [address] [place], [address] MCHC (RBC) [Mass/Vol] 31.9 g/dL Low 32-36 [facility] Comment on above: Performed By: #### L 100.0100, L501.5200, L501.4020, L500.2500 #### [facility] [address] [place], [address] MCV (RBC) [Entitic vol] 97.1 fL Normal 81-99 [facility] Comment on above: Performed By: #### L 100.0100, L501.5200, L501.4020, L500.2500 #### [facility] [address] [place], [address] Monocytes/100 WBC (Bld) 5.5 % Normal 0-10 [facility] Comment on above: Performed By: #### L 100.0100, L501.5200, L501.4020, L500.2500 #### [facility] [address] [place], [address] Neutrophils/100 WBC (Bld) 66.6 % Normal 47-70 [facility] Comment on above: Performed By: #### L 100.0100, L501.5200, L501.4020, L500.2500 #### [facility] [address] [place], [address] Nucleated RBC (Bld) [#/Vol] 0 10*3/uL Normal 0-5 [facility] Comment on above: Performed By: #### L 100.0100, L501.5200, L501.4020, L500.2500 #### [facility] [address] [place], [address] Platelet mean volume (Bld) [Entitic vol] 10.3 fL Normal 6.2-12.0 [facility] Comment on above: Performed By: #### L 100.0100, L501.5200, L501.4020, L500.2500 #### [facility] [address] [place], [address] Platelets (Bld) [#/Vol] 372 10*3/uL Normal 150-450 [facility] Comment on above: Performed By: #### L 100.0100, L501.5200, L501.4020, L500.2500 #### [facility] [address] [place], [address] RBC (Bld) [#/Vol] 3.78 10*6/uL Low 4.2-5.4 [facility] Comment on above: Performed By: #### L 100.0100, L501.5200, L501.4020, L500.2500 #### [facility] [address] [place], [address] RDW SD 49.1 fl High 35.1-43.9 [facility] Comment on above: Performed By: #### L 100.0100, L501.5200, L501.4020, L500.2500 #### [facility] [address] [place], [address] WBC (Bld) [#/Vol] 13.2 10*3/uL High 4.4-11.0 [facility] Comment on above: Performed By: #### L 100.0100, L501.5200, L501.4020, L500.2500 #### [facility] [address] [place], [address] Emergency Department Summary on 05-10-2024 Emergency Department Summary [facility] Medical Records Department [address] [place] [address] Emergency Department Summary 05/10/24 MR#: [id number] Acct: [id number] Name: ADELA WELLS Rep #: [id number] : 1945 79 From: Jatin De La Rosa DO PCP: Dr. Carlo Diaz MD Status:DEP ER Location: ED HPI History of Present Illness Chief Complaint: Chest Pain Informant: patient and family Narrative Narrative: Patient is a 79-year-old female with past medical history of hypertension hyperlipidemia type 2 diabetes and coronary artery disease who reports that she has had multiple heart attacks in the past. She was seen in October of this year secondary to chest pain with elevated troponins and had a heart cath at that time. She states that this evening around 9 PM she noticed some midsternal chest pressure which she states has been her symptoms with previous heart attacks. She states there was no nausea vomiting diaphoresis or shortness of breath or radiation of the pain. She states that the pain lasted for approximate 30 minutes and then resolved and then returned roughly 20 to 30 minutes prior to arrival. She states she been under a great deal of stress recently and feels this may have contributed to her symptoms but as she has a known history of CAD with stent placement she presents for evaluation [facility] Medical History CHF (congestive heart failure) Anemia NSTEMI (non-ST elevated myocardial infarction) Cardiomyopathy COVID-19 ( 04/2022) Insect bite History of non-ST elevation myocardial infarction (NSTEMI) (01/26/21) COPD (chronic obstructive pulmonary disease) Morbid obesity TIA (transient ischemic attack) Arm paresthesia, right CKD (chronic kidney disease) Atherosclerotic heart disease of teller coronary artery without angina 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 Obesity Atherosclerosis of coronary artery bypass graft without angina pectoris Essential hypertension Type 2 diabetes mellitus without complication Vertigo GERD (gastroesophageal reflux disease) Asthma Hyperlipidemia Hypothyroidism Home Medications ???Medication ???Instructions ???Recorded ???Last Taken ???Type montelukast 10 mg tablet 10 mg PO DAILY ASTHMA 12/17/13 11/03/23 History aspirin 81 mg tablet,delayed 81 mg PO QDAY HEART HEALTH 11/19/17 11/03/23 History release cetirizine 10 mg tablet (Zyrtec) 10 mg PO QDAY allergies 02/15/20 11/03/23 History allopurinol 100 mg tablet 100 mg PO DAILY GOUT 11/22/21 11/03/23 History spironolactone 25 mg tablet 25 mg PO BID HEART 08/28/22 11/03/23 History ipratropium 20 mcg-albuterol 100 1 puff inhalation Q6H BREATHING 09/20/22 11/03/23 History mcg/actuation mist for inhalation (Combivent Respimat) ferrous sulfate 325 mg (65 mg 325 mg PO BID SUPPLEMENT 10/04/22 Unknown History iron) tablet furosemide 40 mg tablet (Lasix) 40 mg PO DAILY diuretic 12/25/22 Unknown History cholecalciferol (vitamin D3) 25 25 mcg PO SUTUTHSA vitamin 06/05/23 11/02/23 History mcg (1,000 unit) tablet glipizide 10 mg tablet 2.5 mg PO DAILY DM 06/05/23 Unknown History levothyroxine 100 mcg tablet 100 mcg PO DAILY THYROID 06/05/23 11/03/23 History metoprolol tartrate 50 mg tablet 50 mg PO DAILY blood pressure 06/05/23 11/03/23 History omeprazole 20 mg capsule,delayed 20 mg PO DAILY reflux 11/04/23 11/03/23 History release ezetimibe 10 mg tablet (Zetia) 10 mg PO DAILY 02/27/24 Unknown History prednisone 5 mg tablet 5 mg PO DAILY 02/27/24 Unknown History albuterol sulfate 2.5 mg/3 mL 1.25 mg inhalation PRN 05/09/24 Unknown History (0.083 %) solution for nebulization ipratropium bromide 0.02 % 0.5 mg inhalation PRN 05/09/24 Unknown History solution for inhalation Allergy/AdvReac Type Severity Reaction Status Date / Time Anesthetics - Amide Type - Allergy Other Verified 05/09/24 23:24 Select A (Anesthetics - Amide Type) acetaminophen (From Tylenol) AdvReac Severe Other Verified 05/09/24 23:24 pravastatin AdvReac Intermediate Myalgias Verified 05/09/24 23:24 after 15 years of taking cinnamon AdvReac Unknown Unknown Verified 05/09/24 23:24 Penicillins AdvReac Unknown Unknown Verified 05/09/24 23:24 ezetimibe (From Zetia) AdvReac myalgias Verified 05/09/24 23:24 Family History Mother , age 86, advanced age No problems noted. Father Prostate cancer Surgical History History of coronary artery stent placement (01/26/21) H/O coronary artery bypass surgery (10/11/07) Hx of bilateral cataract extraction History of hysterectomy Hx of appendectomy History of cholecystectomy Socia (more content not included)... Normal [facility] L501.4020on 05-10-2024 TROPONIN-I HS 29 pg/mL Normal 3.0-54.0 [facility] Comment on above: Order Comment: RED W. PREVIOUS SPECIMEN REJECTED DUE TOHEMOLYSIS. 05/10/24 0201 Dave Severino.1 Result Comment: Plea se Note: New Test Units and Gender Specific Reference Ranges. For more information see Policy Stat Procedure [place] High Sensitivity Troponin (TNIH) and attachments. Performed By: #### L 100.0100, L501.5200, L501.4020, L500.2500 #### [facility] [address] [place], [address] TROPONIN-I HS 32 pg/mL Normal 3.0-54.0 [facility] Comment on above: Order Comment: 'TROP ' Serial specimen #1, #2 or #3: 1 Result Comment: Plea se Note: New Test Units and Gender Specific Reference Ranges. For more information see Policy Stat Procedure [place] High Sensitivity Troponin (TNIH) and attachments. Performed By: #### L 100.0100, L501.5200, L501.4020, L500.2500 #### [facility] [address] [place], [address] Magnesiumon 05-10-2024 Magnesium [Mass/Vol] 2.2 mg/dL Normal 1.6-2.6 [facility] Comment on above: Order Comment: 'TROP ' Serial specimen #1, #2 or #3: 1 Performed By: #### L 100.0100, L501.5200, L501.4020, L500.2500 #### [facility] [address] [place], [address] 12 Lead EKGon 05-09-2024 12 Lead EKG [facility] Cardi[facility] Services [address] [place] [address] 12 Lead EKG 05/09/24 2331 MR#: [id number] Acct: [id number] Name: ADELA WELLS Rep #: [id number] : 1945 79 From: Lasha Win MD Attending Dr: Status: DEP ER Ordering Dr: Jatin De La Rosa DO Date: 05/09/24 Location: ED Sex: F C Admitted: Test Reason : CP Blood Pressure : / mmHG Vent. Rate : 067 BPM Atrial Rate : 067 BPM P-R Int : 156 ms QRS Dur : 102 ms QT Int : 410 ms P-R-T Axes : 020 036 108 degrees QTc Int : 433 ms Normal sinus rhythm with sinus arrhythmia ST T wave abnormality, consider lateral ischemia Abnormal ECG Confirmed by LASHA WIN MD ([id number]), film editor NIRAV DICKSON ([id number]) on 05/11/2024 8:09:33 AM Referred By: RAY Confirmed By:LASHA WIN MD 05/11/24 0809 Date Lasha Win MD CC: Dr. Carlo Diaz MD; Jatin De La Rosa DO Signed Normal [facility] Chest PA and Lateralon 05-09 Chest PA and Lateral [facility] Imaging Services [address] [place] [address] Chest PA and Lateral MR#: [id number] Acct: [id number] Name: ADELA WELLS Rep #: [id number] : 1945 F 79 From: Freddie Mcdowell MD PCP: Dr. Carlo Diaz MD Status: REG ER Study: Chest PA and Lateral Date of Exam: 05/09/24 Exam# [id number] Ordering Dr: Jatin De La Rosa DO [id number] EXAM: XR CHEST, 2 VIEWS CLINICAL INDICATION: CHEST PAIN TECHNIQUE: Frontal and lateral views of the chest. COMPARISON: Single view chest 11/04/2023 FINDINGS: LUNGS AND PLEURAL SPACES: Unremarkable. No consolidation or edema. No pneumothorax. No effusion. HEART: Unremarkable. Cardiac silhouette not enlarged. MEDIASTINUM: Surgical changes of the mediastinum. BONES/JOINTS: Degenerative changes of the spine. No acute fracture. SOFT TISSUES: Unremarkable. RAD/Chest PA and Lateral IMPRESSION: No acute findings in the chest. Electronically Signed: Freddie Mcdowell MD at 0:33 EDT , CC: Dr. Carlo Diaz MD; Jatin De La Rosa DO Toll Repairer Central Office: Signed Normal [facility] FITon 03-17-2024 Lower GI hemoglobin IA Ql (Stl) Negative Normal Negative [facility] Comment on above: Performed By: #### F IT #### [place] [address] Cardiology Visit Reporton Cardiology Visit Report [facility] [address] [place] [address]. [address] [place], [place] [address] OFFICE VISIT Date of Service: 02/27/24 MR#: [id number] Acct: [id number] Name: ADELA WELLS Rep #: [id number] : 1945 Provider: BRYSON ochoa Age/Sex: 78/F [place] [facility] Status: Signed [facility] History of Present Illness Details: Adela Wells is a 78-year-old female who presents for a cardiovascular follow-up visit. She has a history of coronary artery disease with 6 vessel bypass in 2007. In 2015, she had a non-ST myocardial infarction and underwent percutaneous balloon intervention of the mid RCA with stent placement and balloon angioplasty of the proximal RCA. She also underwent angioplasty of the saphenous vein graft to the posterior descending artery. In October 2019, she had angiography at [facility] after presenting with non-STEMI. At that time, she had patent HEART to LAD and 80% stenosis in the SVG to diagonal 1. Other grafts were felt to be occluded. She underwent a PCI of the saphenous vein graft to the first diagonal vessel and also the teller left circumflex artery with a drug-eluting stent. She did present to the emergency room in October of 2021 with shortness of breath as well as palpitations. Her blood pressure was noted to be elevated her laboratory tests were noted to be normal. Her ejection fraction has been estimated to be 60% with no wall motion abnormalities present. She did have a stress test which was abnormal, however with her renal function and lack of cardiac symptoms it was opted to treat medically. She was advised to increase her coreg and isosorbide. She did not do this. She presented to the emergency room on 11/04/2023 with complaints of shortness of breath. She underwent a cardiac catheterization on 11/06/2023 which demonstrated bypass grafts noted to be occluded and the HEART to the LAD which is patent, teller right coronary artery which is patent with moderate disease, and a saphenous vein graft to a small diagonal vessel with severe distal disease. Medical therapy was recommended at that time. From a cardiac standpoint, the patient is doing well. She does use a cane to help with ambulation. She denies any palpitations, chest pain, pressure or heaviness. She denies SOB, Orthopnea, and PND. She does not have bleeding issues; no blood in urine, stool or nosebleeds. She denies any decrease in energy level, myalgias, or claudication. She does not have edema, or sudden weight gain. She denies dizziness, lightheadedness, syncopal or near syncopal episodes, and headaches. Intake Vital Signs 11/19/23 10:39 02/27/24 15:17 Height 5 ft 1 in 5 ft 1 in Weight: 171 lb BMI 32.3 BP 143/78 H Blood Pressure Location Lt brachial Position Sitting Respiration 18 Pulse 82 Pulse Source Monitor Pulse Oximetry (%) 97 Intake Visit Reasons: 3 M FU [employer] Supervisor Required: No Is patient in pain?: No Allergies Anesthetics - Amide Type - Select A (Anesthetics - Amide Type) Allergy (Verified 02/27/24 15:25) Other acetaminophen (From Tylenol) Adverse Reaction (Severe, Verified 02/27/24 15:25) Other pravastatin Adverse Reaction (Intermediate, Verified 02/27/24 15:25) Myalgias after 15 years of taking cinnamon Adverse Reaction (Unknown, Verified 02/27/24 15:25) Unknown Penicillins Adverse Reaction (Unknown, Verified 02/27/24 15:25) Unknown ezetimibe (From Zetia) Adverse Reaction (Verified 02/27/24 15:25) myalgias Medications ???Medication ???Instructions ???Recorded ???Confirmed ???Type montelukast 10 mg tablet 10 mg PO DAILY ASTHMA 12/17/13 02/27/24 History aspirin 81 mg tablet,delayed 81 mg PO QDAY HEART HEALTH 11/19/17 02/27/24 History release cetirizine 10 mg tablet (Zyrtec) 10 mg PO QDAY allergies 02/15/20 02/27/24 History allopurinol 100 mg tablet 100 mg PO DAILY GOUT 11/22/21 02/27/24 History spironolactone 25 mg tablet 25 mg PO DAILY HEART 08/28/22 02/27/24 History ipratropium 20 mcg-albuterol 100 1 puff inhalation Q6H BREATHING 09/20/22 02/27/24 History mcg/actuation mist for inhalation (Combivent Respimat) ferrous sulfate 325 mg (65 mg 325 mg PO BID SUPPLEMENT 10/04/22 02/27/24 History iron) tablet furosemide 40 mg tablet (Lasix) 40 mg PO DAILY diuretic 12/25/22 02/27/24 History cholecalciferol (vitamin D3) 25 25 mcg PO SUTUTHSA vitamin 06/05/23 02/27/24 History mcg (1,000 unit) tablet glipizide 10 mg tablet 2.5 mg PO DAILY DM 06/05/23 02/27/24 History levothyroxine 100 mcg tablet 100 mcg PO DAILY THYROID 06/05/23 02/27/24 History metoprolol tartrate 50 mg tablet 50 mg PO DAILY blood pressure 06/05/23 02/27/24 History omeprazole 20 mg capsule,delayed 20 mg PO DAILY reflux 11/04/23 02/27/24 History release vitamins A,C,A-qved-aagxay 2,148 1 tab PO BID vitamin 11/04/23 02/27/24 Hist (more content not included)... Normal [facility] Basophil percentageOrdered B y: Alfonso Quiroz on 11-07-2023 Chloride [Moles/Vol] 95 mmol/L 98-107 [facility] Glucose [Mass/Vol] 130 mg/dL 74-106 [facility] Comment on above: Fasting Glucose resu lt greater than or equal to 126 mg/dL suggests DIABETES MELLITUS per A.D.A. criteria. Potassium [Moles/Vol] 3.8 mmol/L 3.5-5.1 [facility] Sodium [Moles/Vol] 132 mmol/L 136-145 [facility] Erythrocyte sedimentation ra teOrdered By: Alfonso Quiroz on 11-07-2023 ESR (Bld) [Velocity] 50 mm/h 0-30 [facility] Laboratory - Chemistry and C hemistry - challengeOrdered By: Alfonso Quiroz on 11-07-2023 CO2 [Moles/Vol] 30.0 mmol/L 21.0-32.0 [facility] Urea nitrogen/Creatinine [Mass ratio] 25.1 mg/mg 10-20 [facility] No Panel InformationOrdered By: Alfonso Qurioz on 11-07-2023 C-Reactive Protein Extended Range 72.90 mg/L 0.0-3.0 [facility] Comment on above: C-Reactive Protein ( CRP) provides useful information for thediagnosis, therapy and monitoring of inflammatory processesand associated diseases. For the evaluation of Relative Riskfor Cardiovascular Disease, a High Sensitivity CRP (HSCRP)should be ordered. Estimated Creatinine Clearance Calc 23.34 ml/min [facility] Estimated GFR (MDRD) Amer 34 mL/min >60 [facility] Comment on above: GFR Calc Estimated GFR (MDRD) Non-Af Amer 28 mL/min >60 [facility] Comment on above: Non- GFR Calc Serum or plasma calcium beth urement (mass/volume)Ordered By: Alfonso Quiroz on 11-07-2023 Calcium [Mass/Vol] 9.2 mg/dL 8.5-10.1 [facility] Serum or plasma creatinine m easurement (mass/volume)Ordered By: Alfonso Quiroz on 11-07-2023 Creatinine [Mass/Vol] 1.83 mg/dL 0.55-1.02 [facility] Comment on above: The validity of the calculated GFR & GFRAA in patients over 70 years has not been determined. Clinical correlation is essential. Serum or plasma urea nitroge n measurement (mass/volume)Ordered By: Alfonso Quiroz on 11-07-2023 Urea nitrogen [Mass/Vol] 46 mg/dL 7-18 [facility] Thin prep Papanicolaou smear with manual screeningOrdered By: Alfonso Quiroz on 11-07-2023 Thin prep Papanicolaou smear with manual screening 212 mg/dL 74-106 [facility] Comment on above: MANAGEMENT OF PATIEN T CARE PER NURSING PROTOCOL Thin prep Papanicolaou smear with manual screening 7 5-15 [facility] Activated partial thrombopla stin time (aPTT) in platelet poor plasma by coagulation aOrdered By: Alfonso Quiroz on 11-06-2023 aPTT Coag (PPP) [Time] 74.0 s 24.1-36.2 [facility] Absolute lymphocyte countOrd ered By: Alfonso Quiroz on 11-05-2023 Lymphocytes Auto (Unsp spec) [#/Vol] 1.75 10*3/uL 0.83-4.51 [facility] Automated lymphocyte count a s percentage of total leukocytesOrdered By: Alfonso Quiroz on 11-05-2023 Lymphocytes/100 WBC Auto (Unsp spec) 15.1 % 19-41 [facility] Basophil percentageOrdered B y: Alfonso Quiroz on 11-05-2023 Basophils/100 WBC (Bld) 0.3 % 0-1 [facility] Bilirubin [Mass/Vol] 0.70 mg/dL 0.20-1.00 [facility] Comment on above: For patients on eltr ombopag therapy, use of Dimension [place] TBIL is not recommended. Eosinophils/100 WBC (Bld) 1.2 % 0-5 [facility] Hemoglobin (Bld) [Mass/Vol] 9.9 g/dL 12.0-15.0 [facility] Monocytes/100 WBC (Bld) 3.6 % 0-10 [facility] Neutrophils (Bld) [#/Vol] 9.2 10*3/uL 2.0-7.7 [facility] Neutrophils/100 WBC (Bld) 79.5 % 47-70 [facility] Protein [Mass/Vol] 6.4 g/dL 6.4-8.2 [facility] WBC (Bld) [#/Vol] 11.6 10*3/uL 4.4-11.0 [facility] Determination of erythrocyte mean corpuscular volume (MCV)Ordered By: Alfonso Quiroz on 11-05-2023 MCV (RBC) [Entitic vol] 94.1 fL 81-99 [facility] Erythrocyte distribution wid th ratioOrdered By: Alfonsolashonda Quiroz on 11-05-2023 Erythrocyte distribution width (RBC) [Ratio] 13.7 % 11.6-14.6 [facility] Erythrocyte distribution wid th standard deviationOrdered By: Alfonso Quiroz on 11-05-2023 Erythrocyte distribution width (RBC) [Entitic vol] 47.0 fL 35.1-43.9 [facility] Hematocrit Auto (Bld) [Volum e fraction]Ordered By: Alfonso Quiroz on 11-05-2023 Hematocrit (Bld) [Volume fraction] 30.4 % 37-47 [facility] Immature granulocytes/100 WB C Auto (Bld)Ordered By: Alfonsolashonda Quiroz on 11-05-2023 Immature granulocytes/100 WBC (Bld) 0.300 % 0.0-0.9 [facility] Comment on above: IG% - Immature Granu locytes (promyelocytes, myelocytes and metamyelocytes) > 1% indicates that a LEFT SHIFT is Present. Laboratory - Chemistry and C hemistry - challengeOrdered By: Alfonso Quiroz on 11-05-2023 Albumin/Globulin [Mass ratio] 0.7 {ratio} 0.9-2.4 [facility] ALP [Catalytic activity/Vol] 66 U/L 45-117 [facility] ALT [Catalytic activity/Vol] 14 U/L 13-56 [facility] Globulin (S) [Mass/Vol] 3.7 g/dL 2.2-4.2 [facility] Laboratory - Hematology and Cell countsOrdered By: Alfonso Quiroz on 11-05-2023 MCH (RBC) [Entitic mass] 30.7 pg 27.0-32.0 [facility] MCHC (RBC) [Mass/Vol] 32.6 g/dL 32-36 [facility] Nucleated RBC/100 WBC (Bld) [Ratio] 0 % 0-5 [facility] Platelet mean volume (Bld) [Entitic vol] 9.9 fL 6.2-12.0 [facility] Platelets (Bld) [#/Vol] 336 10*3/uL 150-450 [facility] RBC Auto (Bld) [#/Vol]Ordere d By: Alfonso Quiroz on 11-05-2023 RBC (Bld) [#/Vol] 3.23 10*6/uL 4.2-5.4 [facility] Serum or plasma thyroid stim ulating hormone (TSH) measurement (units/volume)Ordered By: Alfonso Quiroz on 11-05-2023 TSH Qn 7.58 uIU/mL 0.358-3.74 [facility] Thin prep Papanicolaou smear with manual screeningOrdered By: Alfonso Quiroz on 11-05-2023 Thin prep Papanicolaou smear with manual screening 2.7 g/dL 3.2-5.0 [facility] Thin prep Papanicolaou smear with manual screening 36 U/L 15-37 [facility] Whole blood hemoglobin A1c/t otal hemoglobin ratio (mass fraction)Ordered By: Alfonso Quiroz on 11-05-2023 HbA1c (Bld) [Mass fraction] 6.8 % 3.8-5.6 [facility] Comment on above: Normal < 5.7 % Predi abetic 5.7 - 6.4 % Diabetic >or= 6.5 % Please note range changes. Basophil percentageOrdered B y: Alfonso Padilla on 11-04-2023 Basophil percentage 10-25 SEEN /hpf 0-5 [facility] Bilirubin Test strip Ql (U)O rdered By: Alfonso Padilla on 11-04-2023 Bilirubin Ql (U) Negative Negative [facility] Ketones Test strip Ql (U)Ord ered By: Alfonso Padilla on 11-04-2023 Ketones Ql (U) Negative Negative [facility] Laboratory - Chemistry and C hemistry - challengeOrdered By: Alfonso Padilla on 11-04-2023 Natriuretic peptide B (Bld) [Mass/Vol] 1120.0 pg/mL 0-100 [facility] Laboratory - CoagulationOrde red By: Alfonso Padilla on 11-04-2023 INR Coag (Bld) [Relative time] 1.1 {INR} [facility] PT Coag (PPP) [Time] 13.8 s 11.7-14.9 [facility] Mucus LM Ql (Urine sed)Order ed By: Alfonso Padilla on 11-04-2023 Mucus Ql (Urine sed) 0 SEEN /hpf [facility] Nitrite Test strip Ql (U)Ord ered By: Alfonso Padilla on 11-04-2023 Nitrite Ql (U) Negative Negative [facility] No Panel InformationOrdered By: Alfonso Quiroz on 11-04-2023 Troponin I High Sensitivity 52452 pg/mL 3.0-54.0 [facility] Comment on above: Critical Result(s) C alled at: 16:41:17 11/04/2023 by: Jessie Anna to Saba Avitia. Results read back by same. Please Note: New Test Units and Gender Specific Reference Ranges. For more information see Policy Stat Procedure [place] High Sensitivity Troponin (TNIH) and attachments. No Panel InformationOrdered By: Alfonso Padilla on 11-04-2023 Urine RBC 0 SEEN /hpf 0-5 [facility] Protein Test strip Ql (U)Ord ered By: Alfonso Padilla on 11-04-2023 Protein Ql (U) 30 mg/dl Negative [facility] Squamous epithelial cells de tection in urine sediment by light microscopyOrdered By: Alfonso Padilla on 11-04-2023 Epithelial cells.squamous LM Ql (Urine sed) 5-10 SEEN /hpf 5-10 [facility] Urine blood detectionOrdered By: Alfonso Padilla on 11-04-2023 RBC Ql (U) 25 /ul Negative [facility] Urine clarityOrdered By: Marilee Padilla on 11-04-2023 Clarity (U) Clear Clear [facility] Urine color determinationOrd ered By: Alfonso Padilla on 11-04-2023 Color (U) Straw Yellow [facility] Urine glucose detectionOrder ed By: Alfonso Padilla on 11-04-2023 Glucose Ql (U) Normal mg/dl Normal [facility] Urine leukocyte esterase det ection by dipstickOrdered By: Alfonso Padilla on 11-04-2023 Leukocyte esterase Test strip Ql (U) 500 /ul Negative [facility] Urine pHOrdered By: Alfonso johns on 11-04-2023 pH (U) 6.5 [pH] 5.0 - 8.0 [facility] Urine sediment bacteria coun t by microscopy (number/high power field)Ordered By: Alfonso Padilla on 11-04-2023 Bacteria LM.HPF (Urine sed) [#/Area] 2 /[HPF] None Seen [facility] Urine specific gravity measu rementOrdered By: Alfonso Padilla on 11-04-2023 Specific gravity (U) [Rel density] 1.010 1.002-1.030 [facility] Urine urobilinogen measureme ntOrdered By: Alfonso Padilla on 11-04-2023 Urobilinogen Ql (U) Normal mg/dl Normal [facility] Basophil percentageOrdered B y: Manolo Ramos on 04-20-2023 Basophil percentage >100 SEEN /hpf 0-5 [facility] Bilirubin Test strip Ql (U)O rdered By: Manolo Ramos on 04-20-2023 Bilirubin Ql (U) Negative Negative [facility] Culture, urineOrdered By: Jean-Pierre Ramos on 04-20-2023 Bacteria identified Cx Nom (U) Mixed Gram Pos & Gram Neg Org [facility] Ketones Test strip Ql (U)Ord ered By: Manolo Ramos on 04-20-2023 Ketones Ql (U) Negative Negative [facility] Mucus LM Ql (Urine sed)Order ed By: Manolo Ramos on 04-20-2023 Mucus Ql (Urine sed) 0 SEEN /hpf [facility] Nitrite Test strip Ql (U)Ord ered By: Manolo Ramos on 04-20-2023 Nitrite Ql (U) Negative Negative [facility] Protein Test strip Ql (U)Ord ered By: Manolo Ramos on 04-20-2023 Protein Ql (U) 30 mg/dl Negative [facility] Squamous epithelial cells de tection in urine sediment by light microscopyOrdered By: Manolo Ramos on 04-20-2023 Epithelial cells.squamous LM Ql (Urine sed) 0-5 SEEN /hpf 5-10 [facility] Urine blood detectionOrdered By: Manolo Ramos on 04-20-2023 RBC Ql (U) 50 /ul Negative [facility] RBC Ql (U) 5-10 SEEN /hpf 0-5 [facility] Urine clarityOrdered By: Wilder Ramos on 04-20-2023 Clarity (U) Sl. Cloudy Clear [facility] Urine color determinationOrd ered By: Manolo Ramos on 04-20-2023 Color (U) Yellow Yellow [facility] Urine glucose detectionOrder ed By: Manolo Ramos on 04-20-2023 Glucose Ql (U) Normal mg/dl Normal [facility] Urine leukocyte esterase det ection by dipstickOrdered By: Manolo Ramos on 04-20-2023 Leukocyte esterase Test strip Ql (U) 500 /ul Negative [facility] Urine pHOrdered By: Manolo bradley on 04-20-2023 pH (U) 6.5 [pH] 5.0 - 8.0 [facility] Urine sediment bacteria coun t by microscopy (number/high power field)Ordered By: Manolo Ramos on 04-20-2023 Bacteria LM.HPF (Urine sed) [#/Area] 1 /[HPF] None Seen [facility] Urine specific gravity measu rementOrdered By: Manolo Ramos on 04-20-2023 Specific gravity (U) [Rel density] 1.010 1.002-1.030 [facility] Urobilinogen Auto test strip Ql (U)Ordered By: Manolo Ramos on 04-20-2023 Urobilinogen Ql (U) Normal mg/dl Normal [facility] Absolute lymphocyte countOrd ered By: Naa Woodruff on 02-08-2023 Lymphocytes Auto (Unsp spec) [#/Vol] 1.20 10*3/uL 0.83-4.51 [facility] Basophil percentageOrdered B y: Naa Woodruff on 02-08-2023 Basophils/100 WBC (Bld) 0.6 % 0-1 [facility] Chloride [Moles/Vol] 107 mmol/L 98-107 [facility] Eosinophils/100 WBC (Bld) 0.2 % 0-5 [facility] Glucose [Mass/Vol] 256 mg/dL 74-106 [facility] Comment on above: Glucose result great er than or equal to 200 mg/dLsuggests DIABETES MELLITUS per A.D.A. criteria. Neutrophils (Bld) [#/Vol] 7.6 10*3/uL 2.0-7.7 [facility] Neutrophils/100 WBC (Bld) 83.8 % 47-70 [facility] Potassium [Moles/Vol] 5.8 mmol/L 3.5-5.1 [facility] Sodium [Moles/Vol] 136 mmol/L 136-145 [facility] WBC (Bld) [#/Vol] 9.0 10*3/uL 4.4-11.0 [facility] Blood erythrocytes count (nu mber/volume)Ordered By: Naa Woodruff on 02-08-2023 RBC (Bld) [#/Vol] 3.22 10*6/uL 4.2-5.4 [facility] Blood hemoglobin measurement (mass/volume)Ordered By: Naa Woodruff on 02-08-2023 Hemoglobin (Bld) [Mass/Vol] 10.1 g/dL 12.0-15.0 [facility] Blood lymphocytes/100 leukoc ytesOrdered By: Naa Woodruff on 02-08-2023 Lymphocytes/100 WBC (Bld) 13.3 % 19-41 [facility] Blood monocytes/100 leukocyt esOrdered By: Naa Woodruff on 02-08-2023 Monocytes/100 WBC (Bld) 1.7 % 0-10 [facility] Blood platelet mean volumeOr dered By: Naa Woodruff on 02-08-2023 Platelet mean volume (Bld) [Entitic vol] 10.5 fL 6.2-12.0 [facility] Determination of erythrocyte mean corpuscular volume (MCV)Ordered By: Naa Woodruff on 02-08-2023 MCV (RBC) [Entitic vol] 95.0 fL 81-99 [facility] Hematocrit Auto (Bld) [Volum e fraction]Ordered By: Naa Woodruff on 02-08-2023 Hematocrit (Bld) [Volume fraction] 30.6 % 37-47 [facility] Influenza virus A and B and SARS-CoV-2 (COVID-19) Ag panel - Upper respiratory specimOrdered By: Naa Woodruff on 02-08-2023 SARS-CoV-2 & FLU Antigen (Rapid) Influenzae B [facility] SARS-CoV-2 & FLU Antigen (Rapid) Influenzae B [facility] Laboratory - Chemistry and C hemistry - challengeOrdered By: Naa Woodruff on 02-08-2023 CO2 [Moles/Vol] 24.0 mmol/L 21.0-32.0 [facility] Natriuretic peptide B (Bld) [Mass/Vol] 315.2 pg/mL 0-100 [facility] Urea nitrogen/Creatinine [Mass ratio] 16.3 mg/mg 10-20 [facility] Laboratory - Hematology and Cell countsOrdered By: Naa Woodruff on 02-08-2023 Erythrocyte distribution width (RBC) [Entitic vol] 50.1 fL 35.1-43.9 [facility] Erythrocyte distribution width (RBC) [Ratio] 14.3 % 11.6-14.6 [facility] Immature granulocytes/100 WBC (Bld) 0.400 % 0.0-0.9 [facility] Comment on above: IG% - Immature Granu locytes (promyelocytes, myelocytes and metamyelocytes) > 1% indicates that a LEFT SHIFT is Present. MCH (RBC) [Entitic mass] 31.4 pg 27.0-32.0 [facility] Nucleated RBC/100 WBC (Bld) [Ratio] 0 % 0-5 [facility] MCHC Auto (RBC) [Mass/Vol]Or dered By: Naa Woodruff on 02-08-2023 MCHC (RBC) [Mass/Vol] 33.0 g/dL 32-36 [facility] No Panel InformationOrdered By: Naa Woodruff on 02-08-2023 Estimated GFR (MDRD) Amer 24 mL/min >60 [facility] Comment on above: GFR Calc Estimated GFR (MDRD) Non-Af Amer 20 mL/min >60 [facility] Comment on above: Non- GFR Calc Troponin I High Sensitivity 14 pg/mL 3.0-54.0 [facility] Comment on above: Please Note: [place] t Units and Gender Specific Reference Ranges. For more information see Policy Stat Procedure [place] High Sensitivity Troponin (TNIH) and attachments. Platelets bldOrdered By: Amy Woodruff on 02-08-2023 Platelets (Bld) [#/Vol] 290 10*3/uL 150-450 [facility] Serum or plasma calcium beth urement (mass/volume)Ordered By: Naa Woodruff on 02-08-2023 Calcium [Mass/Vol] 8.9 mg/dL 8.5-10.1 [facility] Serum or plasma creatinine m easurement (mass/volume)Ordered By: Naa Woodruff on 02-08-2023 Creatinine [Mass/Vol] 2.51 mg/dL 0.55-1.02 [facility] Comment on above: The validity of the calculated GFR & GFRAA in patients over 70 years has not been determined. Clinical correlation is essential. Serum or plasma urea nitroge n measurement (mass/volume)Ordered By: Naa Woodruff on 02-08-2023 Urea nitrogen [Mass/Vol] 41 mg/dL 7-18 [facility] Thin prep Papanicolaou smear with manual screeningOrdered By: Naa Woodruff on 02-08-2023 Thin prep Papanicolaou smear with manual screening 5 5-15 [facility] Basophil percentageOrdered B y: Dr. Rodriguez on 02-05-2023 Basophil percentage >100 SEEN /hpf 0-5 [facility] Bilirubin Test strip Ql (U)O rdered By: Dr. Rodriguez on 02-05-2023 Bilirubin Ql (U) Negative Negative [facility] Ketones Test strip Ql (U)Ord ered By: Dr. Rodriguez on 02-05-2023 Ketones Ql (U) Negative Negative [facility] Mucus LM Ql (Urine sed)Order ed By: Dr. Rodriguez on 02-05-2023 Mucus Ql (Urine sed) 0 SEEN /hpf [facility] Nitrite Test strip Ql (U)Ord ered By: Dr. Rodriguez on 02-05-2023 Nitrite Ql (U) Negative Negative [facility] Protein Test strip Ql (U)Ord ered By: Dr. Rodriguez on 02-05-2023 Protein Ql (U) 30 mg/dl Negative [facility] Squamous epithelial cells de tection in urine sediment by light microscopyOrdered By: Dr. Rodriguez on 02-05-2023 Epithelial cells.squamous LM Ql (Urine sed) 0-5 SEEN /hpf 5-10 [facility] Urine blood detectionOrdered By: Dr. Rodriguez on 02-05-2023 RBC Ql (U) 25 /ul Negative [facility] RBC Ql (U) 0-5 SEEN /hpf 0-5 [facility] Urine clarityOrdered By: Dr. Rodriguez on 02-05-2023 Clarity (U) Cloudy Clear [facility] Urine color determinationOrd ered By: Dr. Rodriguez on 02-05-2023 Color (U) Straw Yellow [facility] Urine glucose detectionOrder ed By: Dr. Rodriguez on 02-05-2023 Glucose Ql (U) Normal mg/dl Normal [facility] Urine leukocyte esterase det ection by dipstickOrdered By: Dr. Rodriguez on 02-05-2023 Leukocyte esterase Test strip Ql (U) 500 /ul Negative [facility] Urine pHOrdered By: Dr. Jc collazo on 02-05-2023 pH (U) 6.5 [pH] 5.0 - 8.0 [facility] Urine sediment bacteria coun t by microscopy (number/high power field)Ordered By: Dr. Rodriguez on 02-05-2023 Bacteria LM.HPF (Urine sed) [#/Area] RARE /hpf None Seen [facility] Urine specific gravity measu rementOrdered By: Dr. Rodriguez on 02-05-2023 Specific gravity (U) [Rel density] 1.010 1.002-1.030 [facility] Urobilinogen Auto test strip Ql (U)Ordered By: Dr. Rodriguez on 02-05-2023 Urobilinogen Ql (U) Normal mg/dl Normal [facility] Culture, urineOrdered By: Dr Meliton Lee on 11-17-2022 Bacteria identified Cx Nom (U) Positive [facility] No Panel InformationOrdered By: Dr. Lee on 11-16-2022 Troponin I High Sensitivity 19 pg/mL 3.0-54.0 [facility] Comment on above: Please Note: [place] t Units and Gender Specific Reference Ranges. For more information see Policy Stat Procedure [place] High Sensitivity Troponin (TNIH) and attachments. Absolute lymphocyte countOrd ered By: Dr. Lee on 11-15-2022 Lymphocytes Auto (Unsp spec) [#/Vol] 2.75 10*3/uL 0.83-4.51 [facility] Basophil percentageOrdered B y: Dr. Lee on 11-15-2022 Basophil percentage >100 SEEN /hpf 0-5 [facility] Comment on above: Microscopic field is filled. Other elements may be obscured. Basophils/100 WBC (Bld) 0.6 % 0-1 [facility] Chloride [Moles/Vol] 104 mmol/L 98-107 [facility] Eosinophils/100 WBC (Bld) 4.8 % 0-5 [facility] Glucose [Mass/Vol] 147 mg/dL 74-106 [facility] Comment on above: Fasting Glucose resu lt greater than or equal to 126 mg/dL suggests DIABETES MELLITUS per A.D.A. criteria. Neutrophils (Bld) [#/Vol] 6.4 10*3/uL 2.0-7.7 [facility] Neutrophils/100 WBC (Bld) 62.6 % 47-70 [facility] Potassium [Moles/Vol] 5.3 mmol/L 3.5-5.1 [facility] Sodium [Moles/Vol] 135 mmol/L 136-145 [facility] WBC (Bld) [#/Vol] 10.3 10*3/uL 4.4-11.0 [facility] Bilirubin Test strip Ql (U)O rdered By: Dr. Lee on 11-15-2022 Bilirubin Ql (U) Negative Negative [facility] Blood erythrocytes count (nu mber/volume)Ordered By: Dr. Lee on 11-15-2022 RBC (Bld) [#/Vol] 3.70 10*6/uL 4.2-5.4 [facility] Blood hemoglobin measurement (mass/volume)Ordered By: Dr. Lee on 11-15-2022 Hemoglobin (Bld) [Mass/Vol] 11.0 g/dL 12.0-15.0 [facility] Blood lymphocytes/100 leukoc ytesOrdered By: Dr. Lee on 11-15-2022 Lymphocytes/100 WBC (Bld) 26.8 % 19-41 [facility] Blood monocytes/100 leukocyt esOrdered By: Dr. Lee on 11-15-2022 Monocytes/100 WBC (Bld) 4.9 % 0-10 [facility] Blood platelet mean volumeOr dered By: Dr. Lee on 11-15-2022 Platelet mean volume (Bld) [Entitic vol] 10.4 fL 6.2-12.0 [facility] Determination of erythrocyte mean corpuscular volume (MCV)Ordered By: Dr. Lee on 11-15-2022 MCV (RBC) [Entitic vol] 95.9 fL 81-99 [facility] Hematocrit Auto (Bld) [Volum e fraction]Ordered By: Dr. Lee on 11-15-2022 Hematocrit (Bld) [Volume fraction] 35.5 % 37-47 [facility] Ketones Test strip Ql (U)Ord ered By: Dr. Lee on 11-15-2022 Ketones Ql (U) Negative Negative [facility] Laboratory - Chemistry and C hemistry - challengeOrdered By: Dr. Lee on 11-15-2022 CO2 [Moles/Vol] 26.0 mmol/L 21.0-32.0 [facility] Urea nitrogen/Creatinine [Mass ratio] 13.9 mg/mg 10-20 [facility] Laboratory - CoagulationOrde red By: Dr. Lee on 11-15-2022 aPTT Coag (Bld) [Time] 32.8 s 24.1-36.2 [facility] Laboratory - Hematology and Cell countsOrdered By: Dr. Lee on 11-15-2022 Erythrocyte distribution width (RBC) [Entitic vol] 50.4 fL 35.1-43.9 [facility] Erythrocyte distribution width (RBC) [Ratio] 14.3 % 11.6-14.6 [facility] Immature granulocytes/100 WBC (Bld) 0.300 % 0.0-0.9 [facility] Comment on above: IG% - Immature Granu locytes (promyelocytes, myelocytes and metamyelocytes) > 1% indicates that a LEFT SHIFT is Present. MCH (RBC) [Entitic mass] 29.7 pg 27.0-32.0 [facility] Nucleated RBC/100 [facility]Bld) [[facility]] 0 [facility] [Mass/Vol]Or dered By: Dr. Lee on 11-15-2022 MCHC (RBC) [Mass/Vol] 31.0 g/dL 32-36 [facility] Mucus LM Ql (Urine sed)Order ed By: Dr. Lee on 11-15-2022 Mucus Ql (Urine sed) 0 SEEN /hpf [facility] Nitrite Test strip Ql (U)Ord ered By: Dr. Lee on 11-15-2022 Nitrite Ql (U) Negative Negative [facility] No Panel InformationOrdered By: Dr. Lee on 11-15-2022 Urine Transitional Epithelial Cells 0-5 SEEN /hpf 0-5 [facility] Estimated Creatinine Clearance Calc 17.41 ml/min [facility] Estimated GFR (MDRD) Amer 31 mL/min >60 [facility] Comment on above: GFR Calc Estimated GFR (MDRD) Non-Af Amer 25 mL/min >60 [facility] Comment on above: Non- GFR Calc Platelets bldOrdered By: Dr. Lee on 11-15-2022 Platelets (Bld) [#/Vol] 268 10*3/uL 150-450 [facility] Protein Test strip Ql (U)Ord ered By: Dr. Lee on 11-15-2022 Protein Ql (U) 100 mg/dl Negative [facility] Serum or plasma calcium beth urement (mass/volume)Ordered By: Dr. Lee on 11-15-2022 Calcium [Mass/Vol] 8.9 mg/dL 8.5-10.1 [facility] Serum or plasma creatinine m easurement (mass/volume)Ordered By: Dr. Lee on 11-15-2022 Creatinine [Mass/Vol] 2.01 mg/dL 0.55-1.02 [facility] Comment on above: The validity of the calculated GFR & GFRAA in patients over 70 years has not been determined. Clinical correlation is essential. Serum or plasma urea nitroge n measurement (mass/volume)Ordered By: Dr. Lee on 11-15-2022 Urea nitrogen [Mass/Vol] 28 mg/dL 7-18 [facility] Squamous epithelial cells de tection in urine sediment by light microscopyOrdered By: Dr. Lee on 11-15-2022 Epithelial cells.squamous LM Ql (Urine sed) 0-5 SEEN /hpf 5-10 [facility] Thin prep Papanicolaou smear with manual screeningOrdered By: Dr. Lee on 11-15-2022 Thin prep Papanicolaou smear with manual screening 5 5-15 [facility] Urine blood detectionOrdered By: Dr. Lee on 11-15-2022 RBC Ql (U) 50 /ul Negative [facility] RBC Ql (U) 10-25 SEEN /hpf 0-5 [facility] Urine clarityOrdered By: Dr. Lee on 11-15-2022 Clarity (U) Cloudy Clear [facility] Urine color determinationOrd ered By: Dr. Lee on 11-15-2022 Color (U) Yellow Yellow [facility] Urine glucose detectionOrder ed By: Dr. Lee on 11-15-2022 Glucose Ql (U) Normal mg/dl Normal [facility] Urine leukocyte esterase det ection by dipstickOrdered By: Dr. Lee on 11-15-2022 Leukocyte esterase Test strip Ql (U) 500 /ul Negative [facility] Urine pHOrdered By: Dr. Bashir galvin on 11-15-2022 pH (U) 7.0 [pH] 5.0 - 8.0 [facility] Urine sediment bacteria coun t by microscopy (number/high power field)Ordered By: Dr. Lee on 11-15-2022 Bacteria LM.HPF (Urine sed) [#/Area] 2 /[HPF] None Seen [facility] Urine specific gravity measu rementOrdered By: Dr. Lee on 11-15-2022 Specific gravity (U) [Rel density] 1.005 1.002-1.030 [facility] Urobilinogen Auto test strip Ql (U)Ordered By: Dr. Lee on 11-15-2022 Urobilinogen Ql (U) Normal mg/dl Normal [facility] Culture, urineOrdered By: Dr Meliton Lee on 10-31-2022 Bacteria identified Cx Nom (U) Positive [facility] Absolute lymphocyte countOrd ered By: Dr. Lee on 10-30-2022 Lymphocytes Auto (Unsp spec) [#/Vol] 3.11 10*3/uL 0.83-4.51 [facility] Basophil percentageOrdered B y: Dr. Lee on 10-30-2022 Basophil percentage >100 SEEN /hpf 0-5 [facility] Comment on above: Microscopic field is filled. Other elements may be obscured. Basophils/100 WBC (Bld) 0.8 % 0-1 [facility] Chloride [Moles/Vol] 105 mmol/L 98-107 [facility] Eosinophils/100 WBC (Bld) 4.2 % 0-5 [facility] Glucose [Mass/Vol] 152 mg/dL 74-106 [facility] Comment on above: Fasting Glucose resu lt greater than or equal to 126 mg/dL suggests DIABETES MELLITUS per A.D.A. criteria. Neutrophils (Bld) [#/Vol] 5.7 10*3/uL 2.0-7.7 [facility] Neutrophils/100 WBC (Bld) 57.6 % 47-70 [facility] Potassium [Moles/Vol] 4.5 mmol/L 3.5-5.1 [facility] Sodium [Moles/Vol] 137 mmol/L 136-145 [facility] WBC (Bld) [#/Vol] 9.9 10*3/uL 4.4-11.0 [facility] Bilirubin Test strip Ql (U)O rdered By: Dr. Lee on 10-30-2022 Bilirubin Ql (U) Negative Negative [facility] Blood erythrocytes count (nu mber/volume)Ordered By: Dr. Lee on 10-30-2022 RBC (Bld) [#/Vol] 3.29 10*6/uL 4.2-5.4 [facility] Blood hemoglobin measurement (mass/volume)Ordered By: Dr. Lee on 10-30-2022 Hemoglobin (Bld) [Mass/Vol] 10.0 g/dL 12.0-15.0 [facility] Blood lymphocytes/100 leukoc ytesOrdered By: Dr. Lee on 10-30-2022 Lymphocytes/100 WBC (Bld) 31.4 % 19-41 [facility] Blood monocytes/100 leukocyt esOrdered By: Dr. Lee on 10-30-2022 Monocytes/100 WBC (Bld) 5.8 % 0-10 [facility] Blood platelet mean volumeOr dered By: Dr. Lee on 10-30-2022 Platelet mean volume (Bld) [Entitic vol] 10.3 fL 6.2-12.0 [facility] Determination of erythrocyte mean corpuscular volume (MCV)Ordered By: Dr. Lee on 10-30-2022 MCV (RBC) [Entitic vol] 96.7 fL 81-99 [facility] Hematocrit Auto (Bld) [Volum e fraction]Ordered By: Dr. Lee on 10-30-2022 Hematocrit (Bld) [Volume fraction] 31.8 % 37-47 [facility] Ketones Test strip Ql (U)Ord ered By: Dr. Lee on 10-30-2022 Ketones Ql (U) Negative Negative [facility] Laboratory - Chemistry and C hemistry - challengeOrdered By: Dr. Lee on 10-30-2022 CO2 [Moles/Vol] 27.0 mmol/L 21.0-32.0 [facility] Urea nitrogen/Creatinine [Mass ratio] 11.9 mg/mg 10-20 [facility] Laboratory - Hematology and Cell countsOrdered By: Dr. Lee on 10-30-2022 Erythrocyte distribution width (RBC) [Entitic vol] 52.5 fL 35.1-43.9 [facility] Erythrocyte distribution width (RBC) [Ratio] 14.7 % 11.6-14.6 [facility] Immature granulocytes/100 WBC (Bld) 0.200 % 0.0-0.9 [facility] Comment on above: IG% - Immature Granu locytes (promyelocytes, myelocytes and metamyelocytes) > 1% indicates that a LEFT SHIFT is Present. MCH (RBC) [Entitic mass] 30.4 pg 27.0-32.0 [facility] Nucleated RBC/100 WBC (Bld) [Ratio] 0 % 0-5 [facility] MCHC Auto (RBC) [Mass/Vol]Or dered By: Dr. Lee on 10-30-2022 MCHC (RBC) [Mass/Vol] 31.4 g/dL 32-36 [facility] Mucus LM Ql (Urine sed)Order ed By: Dr. Lee on 10-30-2022 Mucus Ql (Urine sed) 0 SEEN /hpf [facility] Nitrite Test strip Ql (U)Ord ered By: Dr. Lee on 10-30-2022 Nitrite Ql (U) Negative Negative [facility] No Panel InformationOrdered By: Dr. Lee on 10-30-2022 Troponin I High Sensitivity 20 pg/mL 3.0-54.0 [facility] Comment on above: Please Note: [place] t Units and Gender Specific Reference Ranges. For more information see Policy Stat Procedure [place] High Sensitivity Troponin (TNIH) and attachments. Estimated Creatinine Clearance Calc 13.01 ml/min [facility] Estimated GFR (MDRD) Amer 22 mL/min >60 [facility] Comment on above: GFR Calc Estimated GFR (MDRD) Non-Af Amer 18 mL/min >60 [facility] Comment on above: Non- GFR Calc Platelets bldOrdered By: Dr. Lee on 10-30-2022 Platelets (Bld) [#/Vol] 323 10*3/uL 150-450 [facility] Protein Test strip Ql (U)Ord ered By: Dr. Lee on 10-30-2022 Protein Ql (U) 100 mg/dl Negative [facility] Serum or plasma calcium beth urement (mass/volume)Ordered By: Dr. Lee on 10-30-2022 Calcium [Mass/Vol] 9.2 mg/dL 8.5-10.1 [facility] Serum or plasma creatinine m easurement (mass/volume)Ordered By: Dr. Lee on 10-30-2022 Creatinine [Mass/Vol] 2.69 mg/dL 0.55-1.02 [facility] Comment on above: The validity of the calculated GFR & GFRAA in patients over 70 years has not been determined. Clinical correlation is essential. Serum or plasma urea nitroge n measurement (mass/volume)Ordered By: Dr. Lee on 10-30-2022 Urea nitrogen [Mass/Vol] 32 mg/dL 7-18 [facility] Squamous epithelial cells de tection in urine sediment by light microscopyOrdered By: Dr. Lee on 10-30-2022 Epithelial cells.squamous LM Ql (Urine sed) 0 SEEN /hpf 5-10 [facility] Thin prep Papanicolaou smear with manual screeningOrdered By: Dr. Lee on 10-30-2022 Thin prep Papanicolaou smear with manual screening 5 5-15 [facility] Urine blood detectionOrdered By: Dr. Lee on 10-30-2022 RBC Ql (U) 50 /ul Negative [facility] RBC Ql (U) 0 SEEN /hpf 0-5 [facility] Urine clarityOrdered By: Dr. Lee on 10-30-2022 Clarity (U) Turbid Clear [facility] Urine color determinationOrd ered By: Dr. Lee on 10-30-2022 Color (U) Yellow Yellow [facility] Urine glucose detectionOrder ed By: Dr. Lee on 10-30-2022 Glucose Ql (U) Normal mg/dl Normal [facility] Urine leukocyte esterase det ection by dipstickOrdered By: Dr. Lee on 10-30-2022 Leukocyte esterase Test strip Ql (U) 500 /ul Negative [facility] Urine pHOrdered By: Dr. Bashir galvin on 10-30-2022 pH (U) 6.0 [pH] 5.0 - 8.0 [facility] Urine sediment bacteria coun t by microscopy (number/high power field)Ordered By: Dr. Lee on 10-30-2022 Bacteria LM.HPF (Urine sed) [#/Area] 3 /[HPF] None Seen [facility] Urine specific gravity measu rementOrdered By: Dr. Lee on 10-30-2022 Specific gravity (U) [Rel density] 1.010 1.002-1.030 [facility] Urobilinogen Auto test strip Ql (U)Ordered By: Dr. Lee on 10-30-2022 Urobilinogen Ql (U) Normal mg/dl Normal [facility] Absolute lymphocyte countOrd ered By: Ortiz Hernández on 10-04-2022 Lymphocytes Auto (Unsp spec) [#/Vol] 2.38 10*3/uL 0.83-4.51 [facility] Basophil percentageOrdered B y: Ortiz Hernández on 10-04-2022 Basophils/100 WBC (Bld) 0.8 % 0-1 [facility] Eosinophils/100 WBC (Bld) 4.9 % 0-5 [facility] Neutrophils (Bld) [#/Vol] 5.4 10*3/uL 2.0-7.7 [facility] Neutrophils/100 WBC (Bld) 61.1 % 47-70 [facility] WBC (Bld) [#/Vol] 8.8 10*3/uL 4.4-11.0 [facility] Blood erythrocytes count (nu mber/volume)Ordered By: Ortiz Hernández on 10-04-2022 RBC (Bld) [#/Vol] 3.12 10*6/uL 4.2-5.4 [facility] Blood hemoglobin measurement (mass/volume)Ordered By: Ortiz Hernández on 10-04-2022 Hemoglobin (Bld) [Mass/Vol] 9.1 g/dL 12.0-15.0 [facility] Blood lymphocytes/100 leukoc ytesOrdered By: Ortiz Hernández on 10-04-2022 Lymphocytes/100 WBC (Bld) 27.0 % 19-41 [facility] Blood monocytes/100 leukocyt esOrdered By: Ortiz Hernández on 10-04-2022 Monocytes/100 WBC (Bld) 5.7 % 0-10 [facility] Blood platelet mean volumeOr dered By: Ortiz Hernández on 10-04-2022 Platelet mean volume (Bld) [Entitic vol] 10.0 fL 6.2-12.0 [facility] Determination of erythrocyte mean corpuscular volume (MCV)Ordered By: Ortiz Hernández on 10-04-2022 MCV (RBC) [Entitic vol] 97.1 fL 81-99 [facility] Hematocrit Auto (Bld) [Volum e fraction]Ordered By: Ortiz Hernández on 10-04-2022 Hematocrit (Bld) [Volume fraction] 30.3 % 37-47 [facility] Hemoglobin in reticulocytes (mass per reticulocyte)Ordered By: Ortiz Hernández on 10-04-2022 Hemoglobin (Reticulocytes) [Entitic mass] 33.2 pg 30-35 [facility] Iron measurement (mass/mass) Ordered By: Ortiz Hernández on 10-04-2022 Iron (Unsp spec) [Mass/Mass] 28 ug/dL 50-170 [facility] Laboratory - Hematology and Cell countsOrdered By: Ortiz Hernández on 10-04-2022 Erythrocyte distribution width (RBC) [Entitic vol] 53.8 fL 35.1-43.9 [facility] Erythrocyte distribution width (RBC) [Ratio] 14.9 % 11.6-14.6 [facility] Immature granulocytes/100 WBC (Bld) 0.500 % 0.0-0.9 [facility] Comment on above: IG% - Immature Granu locytes (promyelocytes, myelocytes and metamyelocytes) > 1% indicates that a LEFT SHIFT is Present. MCH (RBC) [Entitic mass] 29.2 pg 27.0-32.0 [facility] Nucleated RBC/100 WBC (Bld) [Ratio] 0 % 0-5 [facility] MCHC Auto (RBC) [Mass/Vol]Or dered By: Ortiz Hernández on 10-04-2022 MCHC (RBC) [Mass/Vol] 30.0 g/dL 32-36 [facility] No Panel InformationOrdered By: Ortiz Hernández on 10-04-2022 Immature Reticulocyte Fraction 19.90 % 3.00-15.90 [facility] Reticulocyte Count 2.54 % 0.5-1.5 [facility] Total Iron Binding Capacity 249 ug/dL 250-450 [facility] Platelets bldOrdered By: Regis Hernández on 10-04-2022 Platelets (Bld) [#/Vol] 345 10*3/uL 150-450 [facility] Serum or plasma ferritin al surement (mass/volume)Ordered By: Ortiz Hernández on 10-04-2022 Ferritin [Mass/Vol] 109 ng/mL 8-252 [facility] Serum or plasma iron saturat ion measurement (mass fraction)Ordered By: Ortiz Hernández on 10-04-2022 Iron saturation [Mass fraction] 11.2 % 15.0-55.0 [facility] Absolute lymphocyte countOrd ered By: Dr. Andrade on 09-23-2022 Lymphocytes Auto (Unsp spec) [#/Vol] 2.77 10*3/uL 0.83-4.51 [facility] Basophil percentageOrdered B y: Dr. Andrade on 09-23-2022 Basophils/100 WBC (Bld) 0.4 % 0-1 [facility] Bilirubin [Mass/Vol] 0.30 mg/dL 0.20-1.00 [facility] Comment on above: For patients on eltr ombopag therapy, use of Dimension [place] TBIL is not recommended. Chloride [Moles/Vol] 111 mmol/L 98-107 [facility] Eosinophils/100 WBC (Bld) 3.8 % 0-5 [facility] Glucose [Mass/Vol] 135 mg/dL 74-106 [facility] Comment on above: Fasting Glucose resu lt greater than or equal to 126 mg/dL suggests DIABETES MELLITUS per A.D.A. criteria. LDH [Catalytic activity/Vol] 185 U/L 84-246 [facility] Neutrophils (Bld) [#/Vol] 5.8 10*3/uL 2.0-7.7 [facility] Neutrophils/100 WBC (Bld) 60.1 % 47-70 [facility] Potassium [Moles/Vol] 3.7 mmol/L 3.5-5.1 [facility] Protein [Mass/Vol] 6.0 g/dL 6.4-8.2 [facility] Sodium [Moles/Vol] 141 mmol/L 136-145 [facility] WBC (Bld) [#/Vol] 9.7 10*3/uL 4.4-11.0 [facility] Blood erythrocytes count (nu mber/volume)Ordered By: Dr. Andrade on 09-23-2022 RBC (Bld) [#/Vol] 2.81 10*6/uL 4.2-5.4 [facility] Blood hemoglobin measurement (mass/volume)Ordered By: Dr. Andrade on 09-23-2022 Hemoglobin (Bld) [Mass/Vol] 8.3 g/dL 12.0-15.0 [facility] Blood lymphocytes/100 leukoc ytesOrdered By: Dr. Andrade on 09-23-2022 Lymphocytes/100 WBC (Bld) 28.7 % 19-41 [facility] Blood monocytes/100 leukocyt esOrdered By: Dr. Andrade on 09-23-2022 Monocytes/100 WBC (Bld) 6.7 % 0-10 [facility] Blood platelet mean volumeOr dered By: Dr. Andrade on 09-23-2022 Platelet mean volume (Bld) [Entitic vol] 10.2 fL 6.2-12.0 [facility] Determination of erythrocyte mean corpuscular volume (MCV)Ordered By: Dr. Andrade on 09-23-2022 MCV (RBC) [Entitic vol] 97.5 fL 81-99 [facility] Glucose Glucometer (BldC) [M ass/Vol]Ordered By: Dr. Andrade on 09-23-2022 Glucose [Mass/Vol] 157 mg/dL 74-106 [facility] Comment on above: MANAGEMENT OF PATIEN T CARE PER NURSING PROTOCOL Hematocrit Auto (Bld) [Volum e fraction]Ordered By: Dr. Andrade on 09-23-2022 Hematocrit (Bld) [Volume fraction] 27.4 % 37-47 [facility] Hemoglobin in reticulocytes (mass per reticulocyte)Ordered By: Dr. Andrade on 09-23-2022 Hemoglobin (Reticulocytes) [Entitic mass] 33.3 pg 30-35 [facility] Iron measurement (mass/mass) Ordered By: Dr. Andrade on 09-23-2022 Iron (Unsp spec) [Mass/Mass] 24 ug/dL 50-170 [facility] Laboratory - Chemistry and C hemistry - challengeOrdered By: Dr. Andrade on 09-23-2022 ALP [Catalytic activity/Vol] 71 U/L 45-117 [facility] ALT [Catalytic activity/Vol] 11 U/L 13-56 [facility] CO2 [Moles/Vol] 21.0 mmol/L 21.0-32.0 [facility] Globulin (S) [Mass/Vol] 3.2 g/dL 2.2-4.2 [facility] Urea nitrogen/Creatinine [Mass ratio] 10.0 mg/mg 10-20 [facility] Laboratory - Hematology and Cell countsOrdered By: Dr. Andrade on 09-23-2022 Erythrocyte distribution width (RBC) [Entitic vol] 54.7 fL 35.1-43.9 [facility] Erythrocyte distribution width (RBC) [Ratio] 15.3 % 11.6-14.6 [facility] Immature granulocytes/100 WBC (Bld) 0.300 % 0.0-0.9 [facility] Comment on above: IG% - Immature Granu locytes (promyelocytes, myelocytes and metamyelocytes) > 1% indicates that a LEFT SHIFT is Present. MCH (RBC) [Entitic mass] 29.5 pg 27.0-32.0 [facility] Nucleated RBC/100 WBC (Bld) [Ratio] 0 % 0-5 [facility] MCHC Auto (RBC) [Mass/Vol]Or dered By: Dr. Andrade on 09-23-2022 MCHC (RBC) [Mass/Vol] 30.3 g/dL 32-36 [facility] No Panel InformationOrdered By: Dr. Andrade on 09-23-2022 Estimated Creatinine Clearance Calc 21.87 ml/min [facility] Estimated GFR (MDRD) Amer 40 mL/min >60 [facility] Comment on above: GFR Calc Estimated GFR (MDRD) Non-Af Amer 33 mL/min >60 [facility] Comment on above: Non- GFR Calc Immature Reticulocyte Fraction 23.70 % 3.00-15.90 [facility] Reticulocyte Count 2.81 % 0.5-1.5 [facility] Total Iron Binding Capacity 219 ug/dL 250-450 [facility] Platelets bldOrdered By: Dr. Andrade on 09-23-2022 Platelets (Bld) [#/Vol] 270 10*3/uL 150-450 [facility] Serum or plasma albumin beth urement (mass/volume)Ordered By: Dr. Andrade on 09-23-2022 Albumin [Mass/Vol] 2.8 g/dL 3.2-5.0 [facility] Serum or plasma albumin/glob ulin mass ratioOrdered By: Dr. Andrade on 09-23-2022 Albumin/Globulin [Mass ratio] 0.9 {ratio} 0.9-2.4 [facility] Serum or plasma calcium beth urement (mass/volume)Ordered By: Dr. Andrade on 09-23-2022 Calcium [Mass/Vol] 8.0 mg/dL 8.5-10.1 [facility] Serum or plasma creatinine m easurement (mass/volume)Ordered By: Dr. Andrade on 09-23-2022 Creatinine [Mass/Vol] 1.60 mg/dL 0.55-1.02 [facility] Comment on above: The validity of the calculated GFR & GFRAA in patients over 70 years has not been determined. Clinical correlation is essential. Serum or plasma ferritin al surement (mass/volume)Ordered By: Dr. Andrade on 09-23-2022 Ferritin [Mass/Vol] 48 ng/mL 8-252 [facility] Serum or plasma iron saturat ion measurement (mass fraction)Ordered By: Dr. Andrade on 09-23-2022 Iron saturation [Mass fraction] 11.0 % 15.0-55.0 [facility] Serum or plasma urea nitroge n measurement (mass/volume)Ordered By: Dr. Andrade on 09-23-2022 Urea nitrogen [Mass/Vol] 16 mg/dL 7-18 [facility] Thin prep Papanicolaou smear with manual screeningOrdered By: Dr. Andrade on 09-23-2022 Thin prep Papanicolaou smear with manual screening 9 U/L 15-37 [facility] Thin prep Papanicolaou smear with manual screening 9 5-15 [facility] Basophil percentageOrdered B y: Dr. Winston on 09-22-2022 Basophil percentage 2.4 mg/dL 2.5-4.9 [facility] Blood manual differential co mment interpretation (narrative result)Ordered By: Dr. Winston on 09-22-2022 Manual differential comment Hayden (Bld) [Interp] SCANNED [facility] Blood platelet morphology de termination (nominal result)Ordered By: Dr. Winston on 09-22-2022 Platelet morphology finding Nom (Bld) LARGE [facility] Laboratory - Chemistry and C hemistry - challengeOrdered By: Dr. Winston on 09-22-2022 Magnesium [Mass/Vol] 1.6 mg/dL 1.6-2.6 [facility] Basophil percentageOrdered B y: Dr. Castellon on 09-21-2022 Cholesterol [Mass/Vol] 137 mg/dL <200 [facility] Comment on above: <200 mg/dL Desirable 200-240 mg/dL Borderline >240 mg/dL High Risk Triglyceride [Mass/Vol] 112 mg/dL <199 [facility] Comment on above: The drugs N-Acetylcy steine and Metamizole may falsely depress this assay.Serum Triglycerides Reference Interval Normal <150 mg/dL Borderline high 150 - 199 mg/dL High 200 - 499 mg/dL Very High > or = 500 mg/dL INR in Blood by Coagulation assayOrdered By: Ortiz Hernández on 09-21-2022 INR Coag (Bld) [Relative time] 1.2 {INR} [facility] Laboratory - CoagulationOrde red By: Ortiz Hernández on 09-21-2022 aPTT Coag (Bld) [Time] 31.0 s 24.1-36.2 [facility] PT Coag (PPP) [Time] 14.8 s 11.7-14.9 [facility] No Panel InformationOrdered By: Ortiz Hernández on 09-21-2022 Thyroid Stimulating Hormone (TSH) 12.10 uIU/mL 0.358-3.74 [facility] Serum or plasma cholesterol in HDL measurement (mass/volume)Ordered By: Dr. Castellon on 09-21-2022 Cholesterol in HDL [Mass/Vol] 41 mg/dL >40 [facility] Comment on above: The drugs N-Acetylcy steine and Metamizole may falsely depress this assay. Reference Range HDL <40 mg/dL Low HDL Cholesterol HDL >or= 60 mg/dL High HDL Cholesterol Serum or plasma cholesterol in VLDL measurement (mass/volume)Ordered By: Dr. Castellon on 09-21-2022 Cholesterol in VLDL [Mass/Vol] 22 mg/dL 5-40 [facility] Serum or plasma low density lipoprotein (LDL) cholesterol measurement (mass/volume)Ordered By: Dr. Castellon on 09-21-2022 Cholesterol in LDL [Mass/Vol] 74 mg/dL 0-130 [facility] Whole blood hemoglobin A1c/t otal hemoglobin ratio (mass fraction)Ordered By: Ortiz Hernández on 09-21-2022 HbA1c (Bld) [Mass fraction] 5.7 % 3.8-5.6 [facility] Comment on above: Normal < 5.7 % Predi abetic 5.7 - 6.4 % Diabetic >or= 6.5 % Please note range changes. Absolute lymphocyte counton 09-20-2022 Lymphocytes Auto (Unsp spec) [#/Vol] 2.36 10*3/uL 0.83-4.51 [facility] Work Phone: Basophil percentageon 2022 Basophils/100 WBC (Bld) 0.6 % 0-1 [facility] Work Phone: Chloride [Moles/Vol] 110 mmol/L 98-107 [facility] Work Phone: Eosinophils/100 WBC (Bld) 5.4 % 0-5 [facility] Work Phone: [phone] Glucose [Mass/Vol] 121 mg/dL 74-106 [facility] Work Phone: [phone] Comment on above: Fasting Glucose resu lt from 100 to 125 mg/dL suggests IMPAIRED HOMEOSTASIS per A.D.A. criteria. Neutrophils (Bld) [#/Vol] 5.1 10*3/uL 2.0-7.7 [facility] Work Phone: Neutrophils/100 WBC (Bld) 59.2 % 47-70 [facility] Work Phone: [phone] Potassium [Moles/Vol] 4.0 mmol/L 3.5-5.1 [facility] Work Phone: [phone] Sodium [Moles/Vol] 138 mmol/L 136-145 [facility] Work Phone: [phone] WBC (Bld) [#/Vol] 8.6 10*3/uL 4.4-11.0 [facility] Work Phone: [phone] Blood erythrocytes count (nu mber/volume)on 09-20-2022 RBC (Bld) [#/Vol] 2.97 10*6/uL 4.2-5.4 [facility] Work Phone: [phone] Blood hemoglobin measurement (mass/volume)on 09-20-2022 Hemoglobin (Bld) [Mass/Vol] 8.7 g/dL 12.0-15.0 [facility] Work Phone: Blood lymphocytes/100 leukoc yteson 09-20-2022 Lymphocytes/100 WBC (Bld) 27.5 % 19-41 [facility] Work Phone: Blood monocytes/100 leukocyt eson 09-20-2022 Monocytes/100 WBC (Bld) 6.9 % 0-10 [facility] Work Phone: Blood platelet mean volumeon 09-20-2022 Platelet mean volume (Bld) [Entitic vol] 10.4 fL 6.2-12.0 [facility] Work Phone: Determination of erythrocyte mean corpuscular volume (MCV)on 09-20-2022 MCV (RBC) [Entitic vol] 97.3 fL 81-99 [facility] Work Phone: Hematocrit Auto (Bld) [Volum e fraction]on 09-20-2022 Hematocrit (Bld) [Volume fraction] 28.9 % 37-47 [facility] Work Phone: Laboratory - Chemistry and C hemistry - challengeon 09-20-2022 Magnesium [Mass/Vol] 1.9 mg/dL 1.6-2.6 [facility]: CO2 [Moles/Vol] 21.0 mmol/L 21.0-32.0 [facility] Work Phone: Urea nitrogen/Creatinine [Mass ratio] 9.7 mg/mg 10-20 [facility] Work Phone: Laboratory - Hematology and Cell countson 09-20-2022 Erythrocyte distribution width (RBC) [Entitic vol] 52.6 fL 35.1-43.9 [facility] Work Phone: Erythrocyte distribution width (RBC) [Ratio] 14.9 % 11.6-14.6 [facility] Work Phone: Immature granulocytes/100 WBC (Bld) 0.400 % 0.0-0.9 [facility] Work Phone: Comment on above: IG% - Immature Granu locytes (promyelocytes, myelocytes and metamyelocytes) > 1% indicates that a LEFT SHIFT is Present. MCH (RBC) [Entitic mass] 29.3 pg 27.0-32.0 [facility] Work Phone: Nucleated RBC/100 WBC (Bld) [Ratio] 0 % 0-5 [facility] Work Phone: Lower GI hemoglobin IA Ql (S tl)Ordered By: Dr. Singh on 09-20-2022 Stool Occult Blood (NIURKA) Positive [facility] MCHC Auto (RBC) [Mass/Vol]on 09-20-2022 MCHC (RBC) [Mass/Vol] 30.1 g/dL 32-36 [facility] Work Phone: No Panel InformationOrdered By: Dr. Castellon on 09-20-2022 Troponin I High Sensitivity 20 pg/mL 3.0-54.0 [facility] Comment on above: Please Note: [place] t Units and Gender Specific Reference Ranges. For more information see Policy Stat Procedure [place] High Sensitivity Troponin (TNIH) and attachments. No Panel Informationon 09-20 Troponin I High Sensitivity 23 pg/mL 3.0-54.0 [facility] Work Phone: Comment on above: Please Note: [place] t Units and Gender Specific Reference Ranges. For more information see Policy Stat Procedure [place] High Sensitivity Troponin (TNIH) and attachments. Estimated Creatinine Clearance Calc 16.20 ml/min [facility] Work Phone: Estimated GFR (MDRD) Amer 28 mL/min >60 [facility] Work Phone: Comment on above: GFR Calc Estimated GFR (MDRD) Non-Af Amer 23 mL/min >60 [facility] Work Phone: Comment on above: Non- GFR Calc Platelets bldon 09-20-2022 Platelets (Bld) [#/Vol] 290 10*3/uL 150-450 [facility] Work Phone: Serum or plasma calcium beth urement (mass/volume)on 09-20-2022 Calcium [Mass/Vol] 8.4 mg/dL 8.5-10.1 [facility] Work Phone: Serum or plasma creatinine m easurement (mass/volume)on 09-20-2022 Creatinine [Mass/Vol] 2.16 mg/dL 0.55-1.02 [facility] Work Phone: Comment on above: The validity of the calculated GFR & GFRAA in patients over 70 years has not been determined. Clinical correlation is essential. Serum or plasma urea nitroge n measurement (mass/volume)on 09-20-2022 Urea nitrogen [Mass/Vol] 21 mg/dL 7-18 [facility] Work Phone: Thin prep Papanicolaou smear with manual screeningon 09-20-2022 Thin prep Papanicolaou smear with manual screening 7 5-15 [facility] Work Phone: Culture, urineOrdered By: Dr Meliton Farrar on 09-19-2022 Bacteria identified Cx Nom (U) Positive [facility] Absolute lymphocyte countOrd ered By: Dr. Farrar on 09-18-2022 Lymphocytes Auto (Unsp spec) [#/Vol] 2.26 10*3/uL 0.83-4.51 [facility] Basophil percentageOrdered B y: Dr. Farrar on 09-18-2022 Basophil percentage 50-100 SEEN /hpf 0-5 [facility] Basophils/100 WBC (Bld) 0.4 % 0-1 [facility] Chloride [Moles/Vol] 106 mmol/L 98-107 [facility] Eosinophils/100 WBC (Bld) 2.2 % 0-5 [facility] Glucose [Mass/Vol] 155 mg/dL 74-106 [facility] Comment on above: Fasting Glucose resu lt greater than or equal to 126 mg/dL suggests DIABETES MELLITUS per A.D.A. criteria. Neutrophils (Bld) [#/Vol] 10.2 10*3/uL 2.0-7.7 [facility] Neutrophils/100 WBC (Bld) 76.1 % 47-70 [facility] Potassium [Moles/Vol] 4.5 mmol/L 3.5-5.1 [facility] Sodium [Moles/Vol] 135 mmol/L 136-145 [facility] WBC (Bld) [#/Vol] 13.5 10*3/uL 4.4-11.0 [facility] Bilirubin Test strip Ql (U)O rdered By: Dr. Farrar on 09-18-2022 Bilirubin Ql (U) Negative Negative [facility] Blood erythrocytes count (nu mber/volume)Ordered By: Dr. Farrar on 09-18-2022 RBC (Bld) [#/Vol] 3.07 10*6/uL 4.2-5.4 [facility] Blood hemoglobin measurement (mass/volume)Ordered By: Dr. Farrar on 09-18-2022 Hemoglobin (Bld) [Mass/Vol] 9.0 g/dL 12.0-15.0 [facility] Blood lymphocytes/100 leukoc ytesOrdered By: Dr. Farrar on 09-18-2022 Lymphocytes/100 WBC (Bld) 16.8 % 19-41 [facility] Blood monocytes/100 leukocyt esOrdered By: Dr. Farrar on 09-18-2022 Monocytes/100 WBC (Bld) 4.1 % 0-10 [facility] Blood platelet mean volumeOr dered By: Dr. Farrar on 09-18-2022 Platelet mean volume (Bld) [Entitic vol] 10.1 fL 6.2-12.0 [facility] Determination of erythrocyte mean corpuscular volume (MCV)Ordered By: Dr. Farrar on 09-18-2022 MCV (RBC) [Entitic vol] 93.8 fL 81-99 [facility] Hematocrit Auto (Bld) [Volum e fraction]Ordered By: Dr. Farrar on 09-18-2022 Hematocrit (Bld) [Volume fraction] 28.8 % 37-47 [facility] Ketones Test strip Ql (U)Ord ered By: Dr. Farrar on 09-18-2022 Ketones Ql (U) Negative Negative [facility] Laboratory - Chemistry and C hemistry - challengeOrdered By: Dr. Farrar on 09-18-2022 CO2 [Moles/Vol] 24.0 mmol/L 21.0-32.0 [facility] Urea nitrogen/Creatinine [Mass ratio] 9.1 mg/mg 10-20 [facility] Laboratory - Hematology and Cell countsOrdered By: Dr. Farrar on 09-18-2022 Erythrocyte distribution width (RBC) [Entitic vol] 49.6 fL 35.1-43.9 [facility] Erythrocyte distribution width (RBC) [Ratio] 14.6 % 11.6-14.6 [facility] Immature granulocytes/100 WBC (Bld) 0.400 % 0.0-0.9 [facility] Comment on above: IG% - Immature Granu locytes (promyelocytes, myelocytes and metamyelocytes) > 1% indicates that a LEFT SHIFT is Present. MCH (RBC) [Entitic mass] 29.3 pg 27.0-32.0 [facility] Nucleated RBC/100 WBC (Bld) [Ratio] 0 % 0-5 [facility] MCHC Auto (RBC) [Mass/Vol]Or dered By: Dr. Farrar on 09-18-2022 MCHC (RBC) [Mass/Vol] 31.3 g/dL 32-36 [facility] Mucus LM Ql (Urine sed)Order ed By: Dr. Farrar on 09-18-2022 Mucus Ql (Urine sed) 0 SEEN /hpf [facility] Nitrite Test strip Ql (U)Ord ered By: Dr. Farrar on 09-18-2022 Nitrite Ql (U) Negative Negative [facility] No Panel InformationOrdered By: Dr. Farrar on 09-18-2022 Estimated Creatinine Clearance Calc 14.40 ml/min [facility] Estimated GFR (MDRD) Amer 25 mL/min >60 [facility] Comment on above: GFR Calc Estimated GFR (MDRD) Non-Af Amer 20 mL/min >60 [facility] Comment on above: Non- GFR Calc Platelets bldOrdered By: Dr. Farrar on 09-18-2022 Platelets (Bld) [#/Vol] 311 10*3/uL 150-450 [facility] Protein Test strip Ql (U)Ord ered By: Dr. Farrar on 09-18-2022 Protein Ql (U) 30 mg/dl Negative [facility] Serum or plasma calcium beth urement (mass/volume)Ordered By: Dr. Farrar on 09-18-2022 Calcium [Mass/Vol] 8.6 mg/dL 8.5-10.1 [facility] Serum or plasma creatinine m easurement (mass/volume)Ordered By: Dr. Farrar on 09-18-2022 Creatinine [Mass/Vol] 2.43 mg/dL 0.55-1.02 [facility] Comment on above: The validity of the calculated GFR & GFRAA in patients over 70 years has not been determined. Clinical correlation is essential. Serum or plasma urea nitroge n measurement (mass/volume)Ordered By: Dr. Farrar on 09-18-2022 Urea nitrogen [Mass/Vol] 22 mg/dL 7-18 [facility] Squamous epithelial cells de tection in urine sediment by light microscopyOrdered By: Dr. Farrar on 09-18-2022 Epithelial cells.squamous LM Ql (Urine sed) 0-5 SEEN /hpf 5-10 [facility] Thin prep Papanicolaou smear with manual screeningOrdered By: Dr. Farrar on 09-18-2022 Thin prep Papanicolaou smear with manual screening 5 5-15 [facility] Urine blood detectionOrdered By: Dr. Farrar on 09-18-2022 RBC Ql (U) 25 /ul Negative [facility] RBC Ql (U) 0-5 SEEN /hpf 0-5 [facility] Urine clarityOrdered By: Dr. Farrar on 09-18-2022 Clarity (U) Cloudy Clear [facility] Urine color determinationOrd ered By: Dr. Farrar on 09-18-2022 Color (U) Straw Yellow [facility] Urine glucose detectionOrder ed By: Dr. Farrar on 09-18-2022 Glucose Ql (U) Normal mg/dl Normal [facility] Urine leukocyte esterase det ection by dipstickOrdered By: Dr. Farrar on 09-18-2022 Leukocyte esterase Test strip Ql (U) 500 /ul Negative [facility] Urine pHOrdered By: Dr. Miguel duggan on 09-18-2022 pH (U) 6.0 [pH] 5.0 - 8.0 [facility] Urine sediment bacteria coun t by microscopy (number/high power field)Ordered By: Dr. Farrar on 09-18-2022 Bacteria LM.HPF (Urine sed) [#/Area] 2 /[HPF] None Seen [facility] Urine specific gravity measu rementOrdered By: Dr. Farrar on 09-18-2022 Specific gravity (U) [Rel density] 1.010 1.002-1.030 [facility] Urobilinogen Auto test strip Ql (U)Ordered By: Dr. Farrar on 09-18-2022 Urobilinogen Ql (U) Normal mg/dl Normal [facility] Absolute lymphocyte countOrd ered By: Saba Milian on 08-28-2022 Lymphocytes Auto (Unsp spec) [#/Vol] 3.00 10*3/uL 0.83-4.51 [facility] Basophil percentageOrdered B y: Saba Milian on 08-28-2022 Basophils/100 WBC (Bld) 0.4 % 0-1 [facility] Chloride [Moles/Vol] 106 mmol/L 98-107 [facility] Eosinophils/100 WBC (Bld) 2.9 % 0-5 [facility] Glucose [Mass/Vol] 121 mg/dL 74-106 [facility] Comment on above: Fasting Glucose resu lt from 100 to 125 mg/dL suggests IMPAIRED HOMEOSTASIS per A.D.A. criteria. Neutrophils (Bld) [#/Vol] 7.7 10*3/uL 2.0-7.7 [facility] Neutrophils/100 WBC (Bld) 65.3 % 47-70 [facility] Potassium [Moles/Vol] 3.8 mmol/L 3.5-5.1 [facility] Sodium [Moles/Vol] 138 mmol/L 136-145 [facility] WBC (Bld) [#/Vol] 11.7 10*3/uL 4.4-11.0 [facility] Blood erythrocytes count (nu mber/volume)Ordered By: Saba Milian on 08-28-2022 RBC (Bld) [#/Vol] 3.56 10*6/uL 4.2-5.4 [facility] Blood hemoglobin measurement (mass/volume)Ordered By: Saba Milian on 08-28-2022 Hemoglobin (Bld) [Mass/Vol] 10.3 g/dL 12.0-15.0 [facility] Blood lymphocytes/100 leukoc ytesOrdered By: aSba Milian on 08-28-2022 Lymphocytes/100 WBC (Bld) 25.6 % 19-41 [facility] Blood monocytes/100 leukocyt esOrdered By: Saba Milian on 08-28-2022 Monocytes/100 WBC (Bld) 5.4 % 0-10 [facility] Blood platelet mean volumeOr dered By: Saba Milian on 08-28-2022 Platelet mean volume (Bld) [Entitic vol] 10.4 fL 6.2-12.0 [facility] Determination of erythrocyte mean corpuscular volume (MCV)Ordered By: Saba Milian on 08-28-2022 MCV (RBC) [Entitic vol] 94.9 fL 81-99 [facility] Hematocrit Auto (Bld) [Volum e fraction]Ordered By: Saba Milian on 08-28-2022 Hematocrit (Bld) [Volume fraction] 33.8 % 37-47 [facility] Laboratory - Chemistry and C hemistry - challengeOrdered By: Saba Milian on 08-28-2022 CO2 [Moles/Vol] 28.0 mmol/L 21.0-32.0 [facility] Urea nitrogen/Creatinine [Mass ratio] 13.0 mg/mg 10-20 [facility] Laboratory - Hematology and Cell countsOrdered By: Saba Milian on 08-28-2022 Erythrocyte distribution width (RBC) [Entitic vol] 45.7 fL 35.1-43.9 [facility] Erythrocyte distribution width (RBC) [Ratio] 13.3 % 11.6-14.6 [facility] Immature granulocytes/100 WBC (Bld) 0.400 % 0.0-0.9 [facility] Comment on above: IG% - Immature Granu locytes (promyelocytes, myelocytes and metamyelocytes) > 1% indicates that a LEFT SHIFT is Present. MCH (RBC) [Entitic mass] 28.9 pg 27.0-32.0 [facility] Nucleated RBC/100 WBC (Bld) [Ratio] 0 % 0-5 [facility] MCHC Auto (RBC) [Mass/Vol]Or dered By: Saba Milian on 08-28-2022 MCHC (RBC) [Mass/Vol] 30.5 g/dL 32-36 [facility] No Panel InformationOrdered By: Saba Milian on 08-28-2022 Estimated GFR (MDRD) Amer 34 mL/min >60 [facility] Comment on above: GFR Calc Estimated GFR (MDRD) Non-Af Amer 28 mL/min >60 [facility] Comment on above: Non- GFR Calc Platelets bldOrdered By: Niurka Milian on 08-28-2022 Platelets (Bld) [#/Vol] 325 10*3/uL 150-450 [facility] Serum or plasma calcium beth urement (mass/volume)Ordered By: Saba Milian on 08-28-2022 Calcium [Mass/Vol] 8.6 mg/dL 8.5-10.1 [facility] Serum or plasma creatinine m easurement (mass/volume)Ordered By: Saba Milian on 08-28-2022 Creatinine [Mass/Vol] 1.85 mg/dL 0.55-1.02 [facility] Comment on above: The validity of the calculated GFR & GFRAA in patients over 70 years has not been determined. Clinical correlation is essential. Serum or plasma urea nitroge n measurement (mass/volume)Ordered By: Saba Milian on 08-28-2022 Urea nitrogen [Mass/Vol] 24 mg/dL 7-18 [facility] Thin prep Papanicolaou smear with manual screeningOrdered By: Saba Milian on 08-28-2022 Thin prep Papanicolaou smear with manual screening 4 5-15 [facility] Absolute lymphocyte counton 03-30-2022 Lymphocytes Auto (Unsp spec) [#/Vol] 3.35 10*3/uL 0.83-4.51 [facility] Work Phone: Basophil percentageon 2021 Basophils/100 WBC (Bld) 0.6 % 0-1 [facility] Work Phone: Chloride [Moles/Vol] 107 mmol/L 98-107 [facility] Work Phone: Eosinophils/100 WBC (Bld) 4.6 % 0-5 [facility] Work Phone: [phone] Glucose [Mass/Vol] 124 mg/dL 74-106 [facility] Work Phone: Comment on above: Fasting Glucose resu lt from 100 to 125 mg/dL suggests IMPAIRED HOMEOSTASIS per A.D.A. criteria. Neutrophils (Bld) [#/Vol] 5.6 10*3/uL 2.0-7.7 [facility] Work Phone: Neutrophils/100 WBC (Bld) 56.1 % 47-70 [facility] Work Phone: Potassium [Moles/Vol] 4.6 mmol/L 3.5-5.1 [facility] Work Phone: Sodium [Moles/Vol] 136 mmol/L 136-145 [facility] Work Phone: WBC (Bld) [#/Vol] 10.0 10*3/uL 4.4-11.0 [facility] Work Phone: Blood erythrocytes count (nu mber/volume)on 03-30-2022 RBC (Bld) [#/Vol] 3.46 10*6/uL 4.2-5.4 [facility] Work Phone: Blood hemoglobin measurement (mass/volume)on 03-30-2022 Hemoglobin (Bld) [Mass/Vol] 10.9 g/dL 12.0-15.0 [facility] Work Phone: Blood lymphocytes/100 leukoc yteson 03-30-2022 Lymphocytes/100 WBC (Bld) 33.4 % 19-41 [facility] Work Phone: Blood monocytes/100 leukocyt eson 03-30-2022 Monocytes/100 WBC (Bld) 5.0 % 0-10 [facility] Work Phone: Blood platelet mean volumeon 03-30-2022 Platelet mean volume (Bld) [Entitic vol] 10.5 fL 6.2-12.0 [facility] Work Phone: Determination of erythrocyte mean corpuscular volume (MCV)on 03-30-2022 MCV (RBC) [Entitic vol] 97.1 fL 81-99 [facility] Work Phone: Hematocrit Auto (Bld) [Volum e fraction]on 03-30-2022 Hematocrit (Bld) [Volume fraction] 33.6 % 37-47 [facility] Work Phone: Laboratory - Chemistry and C hemistry - challengeon 03-30-2022 CO2 [Moles/Vol] 26.0 mmol/L 21.0-32.0 [facility] Work Phone: Urea nitrogen/Creatinine [Mass ratio] 12.2 mg/mg 10-20 [facility] Work Phone: Laboratory - Hematology and Cell countson 03-30-2022 Erythrocyte distribution width (RBC) [Entitic vol] 49.0 fL 35.1-43.9 [facility] Work Phone: Erythrocyte distribution width (RBC) [Ratio] 13.5 % 11.6-14.6 [facility] Work Phone: Immature granulocytes/100 WBC (Bld) 0.300 % 0.0-0.9 [facility] Work Phone: Comment on above: IG% - Immature Granu locytes (promyelocytes, myelocytes and metamyelocytes) > 1% indicates that a LEFT SHIFT is Present. MCH (RBC) [Entitic mass] 31.5 pg 27.0-32.0 [facility] Work Phone: Nucleated RBC/100 WBC (Bld) [Ratio] 0 % 0-5 [facility] Work Phone: MCHC Auto (RBC) [Mass/Vol]on 07-23-2022 MCHC (RBC) [Mass/Vol] 32.4 g/dL 32-36 [facility] Work Phone: No Panel Informationon 03-30 Troponin I High Sensitivity 16 pg/mL 3.0-54.0 [facility] Work Phone: Comment on above: Please Note: [place] t Units and Gender Specific Reference Ranges. For more information see Policy Stat Procedure [place] High Sensitivity Troponin (TNIH) and attachments. Estimated Creatinine Clearance Calc 11.51 ml/min [facility] Work Phone: Estimated GFR (MDRD) Amer 19 mL/min >60 [facility] Work Phone: Comment on above: GFR Calc Estimated GFR (MDRD) Non-Af Amer 16 mL/min >60 [facility] Work Phone: Comment on above: Non- GFR Calc Platelets bldon 03-30-2022 Platelets (Bld) [#/Vol] 252 10*3/uL 150-450 [facility] Work Phone: Serum or plasma calcium beth urement (mass/volume)on 03-30-2022 Calcium [Mass/Vol] 8.7 mg/dL 8.5-10.1 [facility] Work Phone: Serum or plasma creatinine m easurement (mass/volume)on 03-30-2022 Creatinine [Mass/Vol] 3.04 mg/dL 0.55-1.02 [facility] Work Phone: Comment on above: The validity of the calculated GFR & GFRAA in patients over 70 years has not been determined. Clinical correlation is essential. Serum or plasma urea nitroge n measurement (mass/volume)on 03-30-2022 Urea nitrogen [Mass/Vol] 37 mg/dL 7-18 [facility] Work Phone: Thin prep Papanicolaou smear with manual screeningon 03-30-2022 Thin prep Papanicolaou smear with manual screening 3 5-15 [facility] Work Phone: Absolute lymphocyte counton 03-28-2022 Lymphocytes Auto (Unsp spec) [#/Vol] 3.17 10*3/uL 0.83-4.51 [facility] Work Phone: Basophil percentageon 2021 Basophils/100 WBC (Bld) 0.6 % 0-1 [facility] Work Phone: Chloride [Moles/Vol] 104 mmol/L 98-107 [facility] Work Phone: [phone] Eosinophils/100 WBC (Bld) 4.3 % 0-5 [facility] Work Phone: Glucose [Mass/Vol] 177 mg/dL 74-106 [facility] Work Phone: Comment on above: Fasting Glucose resu lt greater than or equal to 126 mg/dL suggests DIABETES MELLITUS per A.D.A. criteria. Neutrophils (Bld) [#/Vol] 7.6 10*3/uL 2.0-7.7 [facility] Work Phone: Neutrophils/100 WBC (Bld) 62.7 % 47-70 [facility] Work Phone: Potassium [Moles/Vol] 4.3 mmol/L 3.5-5.1 [facility] Work Phone: Sodium [Moles/Vol] 135 mmol/L 136-145 [facility] Work Phone: WBC (Bld) [#/Vol] 12.2 10*3/uL 4.4-11.0 [facility] Work Phone: Blood erythrocytes count (nu mber/volume)on 03-28-2022 RBC (Bld) [#/Vol] 3.58 10*6/uL 4.2-5.4 [facility] Work Phone: Blood hemoglobin measurement (mass/volume)on 03-28-2022 Hemoglobin (Bld) [Mass/Vol] 11.0 g/dL 12.0-15.0 [facility] Work Phone: Blood lymphocytes/100 leukoc yteson 03-28-2022 Lymphocytes/100 WBC (Bld) 26.1 % 19-41 [facility] Work Phone: Blood monocytes/100 leukocyt eson 03-28-2022 Monocytes/100 WBC (Bld) 5.8 % 0-10 [facility] Work Phone: Blood platelet mean volumeon 03-28-2022 Platelet mean volume (Bld) [Entitic vol] 10.6 fL 6.2-12.0 [facility] Work Phone: Determination of erythrocyte mean corpuscular volume (MCV)on 03-28-2022 MCV (RBC) [Entitic vol] 95.5 fL 81-99 [facility] Work Phone: Hematocrit Auto (Bld) [Volum e fraction]on 03-28-2022 Hematocrit (Bld) [Volume fraction] 34.2 % 37-47 [facility] Work Phone: Laboratory - Chemistry and C hemistry - challengeon 03-28-2022 CO2 [Moles/Vol] 25.0 mmol/L 21.0-32.0 [facility] Work Phone: Urea nitrogen/Creatinine [Mass ratio] 13.2 mg/mg 10-20 [facility] Work Phone: Laboratory - Hematology and Cell countson 03-28-2022 Erythrocyte distribution width (RBC) [Entitic vol] 47.8 fL 35.1-43.9 [facility] Work Phone: Erythrocyte distribution width (RBC) [Ratio] 13.6 % 11.6-14.6 [facility] Work Phone: Immature granulocytes/100 WBC (Bld) 0.500 % 0.0-0.9 [facility] Work Phone: Comment on above: IG% - Immature Granu locytes (promyelocytes, myelocytes and metamyelocytes) > 1% indicates that a LEFT SHIFT is Present. MCH (RBC) [Entitic mass] 30.7 pg 27.0-32.0 [facility] Work Phone: Nucleated RBC/100 WBC (Bld) [Ratio] 0 % 0-5 [facility] Work Phone: MCHC Auto (RBC) [Mass/Vol]on 03-28-2022 MCHC (RBC) [Mass/Vol] 32.2 g/dL 32-36 [facility] Work Phone: No Panel Informationon 03-28 Troponin I High Sensitivity 20 pg/mL 3.0-54.0 [facility] Work Phone: Comment on above: Please Note: [place] t Units and Gender Specific Reference Ranges. For more information see Policy Stat Procedure [place] High Sensitivity Troponin (TNIH) and attachments. Estimated Creatinine Clearance Calc 14.40 ml/min [facility] Work Phone: Estimated GFR (MDRD) Amer 25 mL/min >60 [facility] Work Phone: Comment on above: GFR Calc Estimated GFR (MDRD) Non-Af Amer 21 mL/min >60 [facility] Work Phone: Comment on above: Non- GFR Calc Platelets bldon 03-28-2022 Platelets (Bld) [#/Vol] 251 10*3/uL 150-450 [facility] Work Phone: Serum or plasma calcium beth urement (mass/volume)on 03-28-2022 Calcium [Mass/Vol] 8.8 mg/dL 8.5-10.1 [facility] Work Phone: Serum or plasma creatinine m easurement (mass/volume)on 03-28-2022 Creatinine [Mass/Vol] 2.43 mg/dL 0.55-1.02 [facility] Work Phone: Comment on above: The validity of the calculated GFR & GFRAA in patients over 70 years has not been determined. Clinical correlation is essential. Serum or plasma urea nitroge n measurement (mass/volume)on 03-28-2022 Urea nitrogen [Mass/Vol] 32 mg/dL 7-18 [facility] Work Phone: [phone] Thin prep Papanicolaou smear with manual screeningon 03-28-2022 Thin prep Papanicolaou smear with manual screening 6 5-15 [facility] Work [phone] Absolute lymphocyte counton 01-10-2022 Lymphocytes Auto (Unsp spec) [#/Vol] 2.39 10*3/uL 0.83-4.51 [facility] Work Phone: Basophil percentageon 2021 Basophil percentage >100 SEEN /hpf 0-5 [facility] Work Phone: [phone] Basophils/100 WBC (Bld) 0.5 % 0-1 [facility] Work Phone: [phone] Bilirubin [Mass/Vol] 0.20 mg/dL 0.20-1.00 [facility] Work Phone: Comment on above: For patients on eltr ombopag therapy, use of Dimension [place] TBIL is not recommended. Chloride [Moles/Vol] 112 mmol/L 98-107 [facility] Work Phone: [phone] Eosinophils/100 WBC (Bld) 5.9 % 0-5 [facility] Work [phone] Glucose [Mass/Vol] 141 mg/dL 74-106 [facility] Work Phone: Comment on above: Fasting Glucose resu lt greater than or equal to 126 mg/dL suggests DIABETES MELLITUS per A.D.A. criteria. Neutrophils (Bld) [#/Vol] 7.3 10*3/uL 2.0-7.7 [facility] Work Phone: [phone] Neutrophils/100 WBC (Bld) 66.5 % 47-70 [facility] Work Phone: [phone] Potassium [Moles/Vol] 4.7 mmol/L 3.5-5.1 [facility] Work Phone: [phone] Protein [Mass/Vol] 7.8 g/dL 6.4-8.2 [facility] Work Phone: Sodium [Moles/Vol] 139 mmol/L 136-145 [facility] Work Phone: WBC (Bld) [#/Vol] 11.0 10*3/uL 4.4-11.0 [facility] Work Phone: Bilirubin Test strip Ql (U)o n 01-10-2022 Bilirubin Ql (U) Negative Negative [facility] Work Phone: Blood erythrocytes count (nu mber/volume)on 01-10-2022 RBC (Bld) [#/Vol] 3.66 10*6/uL 4.2-5.4 [facility] Work Phone: Blood hemoglobin measurement (mass/volume)on 01-10-2022 Hemoglobin (Bld) [Mass/Vol] 11.3 g/dL 12.0-15.0 [facility] Work Phone: Blood lymphocytes/100 leukoc yteson 01-10-2022 Lymphocytes/100 WBC (Bld) 21.8 % 19-41 [facility] Work Phone: Blood monocytes/100 leukocyt eson 01-10-2022 Monocytes/100 WBC (Bld) 5.0 % 0-10 [facility] Work Phone: Blood platelet mean volumeon 01-10-2022 Platelet mean volume (Bld) [Entitic vol] 10.3 fL 6.2-12.0 [facility] Work Phone: Determination of erythrocyte mean corpuscular volume (MCV)on 01-10-2022 MCV (RBC) [Entitic vol] 95.1 fL 81-99 [facility] Work Phone: Hematocrit Auto (Bld) [Volum e fraction]on 01-10-2022 Hematocrit (Bld) [Volume fraction] 34.8 % 37-47 [facility] Work Phone: Ketones Test strip Ql (U)on 01-10-2022 Ketones Ql (U) Negative Negative [facility] Work Phone: Laboratory - Chemistry and C hemistry - challengeon 01-10-2022 ALP [Catalytic activity/Vol] 105 U/L 45-117 [facility] Work Phone: ALT [Catalytic activity/Vol] 17 U/L 13-56 [facility] Work Phone: CO2 [Moles/Vol] 23.0 mmol/L 21.0-32.0 [facility] Work Phone: Globulin (S) [Mass/Vol] 4.1 g/dL 2.2-4.2 [facility] Work Phone: Natriuretic peptide B (Bld) [Mass/Vol] 399.6 pg/mL 0-100 [facility] Work Phone: Urea nitrogen/Creatinine [Mass ratio] 16.6 mg/mg 10-20 [facility] Work Phone: Laboratory - Hematology and Cell countson 01-10-2022 Erythrocyte distribution width (RBC) [Entitic vol] 48.0 fL 35.1-43.9 [facility] Work Phone: Erythrocyte distribution width (RBC) [Ratio] 13.8 % 11.6-14.6 [facility] Work Phone: Immature granulocytes/100 WBC (Bld) 0.300 % 0.0-0.9 [facility] Work Phone: Comment on above: IG% - Immature Granu locytes (promyelocytes, myelocytes and metamyelocytes) > 1% indicates that a LEFT SHIFT is Present. MCH (RBC) [Entitic mass] 30.9 pg 27.0-32.0 [facility] Work Phone: Nucleated RBC/100 WBC (Bld) [Ratio] 0 % 0-5 [facility] Work Phone: MCHC Auto (RBC) [Mass/Vol]on 01-10-2022 MCHC (RBC) [Mass/Vol] 32.5 g/dL 32-36 [facility] Work Phone: Mucus LM Ql (Urine sed)on Mucus Ql (Urine sed) 0 SEEN /hpf [facility] Work Phone: Nitrite Test strip Ql (U)on 01-10-2022 Nitrite Ql (U) Negative Negative [facility] Work Phone: No Panel Informationon 01-10 Estimated Creatinine Clearance Calc 21.04 ml/min [facility] Work Phone: Estimated GFR (MDRD) Amer 38 mL/min >60 [facility] Work Phone: Comment on above: GFR Calc Estimated GFR (MDRD) Non-Af Amer 31 mL/min >60 [facility] Work Phone: Comment on above: Non- GFR Calc SARS-CoV-2 & FLU Antigen (Rapid) [facility] Work Phone: Troponin I High Sensitivity 24 pg/mL 3.0-54.0 [facility] Work Phone: Comment on above: Please Note: [place] t Units and Gender Specific Reference Ranges. For more information see Policy Stat Procedure [place] High Sensitivity Troponin (TNIH) and attachments. Platelets bldon 01-10-2022 Platelets (Bld) [#/Vol] 274 10*3/uL 150-450 [facility] Work Phone: Protein Test strip Ql (U)on 01-10-2022 Protein Ql (U) 100 mg/dl Negative [facility] Work Phone: Serum or plasma albumin beth urement (mass/volume)on 01-10-2022 Albumin [Mass/Vol] 3.7 g/dL 3.2-5.0 [facility] Work Phone: Serum or plasma albumin/glob ulin mass ratioon 01-10-2022 Albumin/Globulin [Mass ratio] 0.9 {ratio} 0.9-2.4 [facility] Work Phone: Serum or plasma calcium beth urement (mass/volume)on 01-10-2022 Calcium [Mass/Vol] 8.6 mg/dL 8.5-10.1 [facility] Work Phone: Serum or plasma creatinine m easurement (mass/volume)on 01-10-2022 Creatinine [Mass/Vol] 1.69 mg/dL 0.55-1.02 [facility] Work Phone: Comment on above: The validity of the calculated GFR & GFRAA in patients over 70 years has not been determined. Clinical correlation is essential. Serum or plasma urea nitroge n measurement (mass/volume)on 01-10-2022 Urea nitrogen [Mass/Vol] 28 mg/dL 7-18 [facility] Work Phone: Squamous epithelial cells de tection in urine sediment by light microscopyon 01-10-2022 Epithelial cells.squamous LM Ql (Urine sed) 0 SEEN /hpf 5-10 [facility] Work Phone: Thin prep Papanicolaou smear with manual screeningon 01-10-2022 Thin prep Papanicolaou smear with manual screening 18 U/L 15-37 [facility] Work Phone: Thin prep Papanicolaou smear with manual screening 4 5-15 [facility] Work Phone: Urine blood detectionon RBC Ql (U) 50 /ul Negative [facility] Work Phone: RBC Ql (U) 0 SEEN /hpf 0-5 [facility] Work Phone: Urine clarityon 01-10-2022 Clarity (U) Cloudy Clear [facility] Work Phone: Urine color determinationon 01-10-2022 Color (U) Yellow Yellow [facility] Work Phone: Urine glucose detectionon Glucose Ql (U) Normal mg/dl Normal [facility] Work Phone: Urine leukocyte esterase det ection by dipstickon 01-10-2022 Leukocyte esterase Test strip Ql (U) 500 /ul Negative [facility] Work Phone: Urine pHon 01-10-2022 pH (U) 6.0 [pH] 5.0 - 8.0 [facility] Work Phone: Urine sediment bacteria coun t by microscopy (number/high power field)on 01-10-2022 Bacteria LM.HPF (Urine sed) [#/Area] 0 /[HPF] None Seen [facility] Work Phone: Urine specific gravity measu rementon 01-10-2022 Specific gravity (U) [Rel density] 1.010 1.002-1.030 [facility] Work Phone: Urobilinogen Auto test strip Ql (U)on 01-10-2022 Urobilinogen Ql (U) Normal mg/dl Normal [facility] Work Phone: Absolute lymphocyte counton 10-09-2021 Lymphocytes Auto (Unsp spec) [#/Vol] 2.37 10*3/uL 0.83-4.51 [facility] Work Phone: Basophil percentageon 2021 Basophil percentage 10-25 SEEN /hpf [facility] Work Phone: Basophils/100 WBC (Bld) 0.6 % 0-1 [facility] Work Phone: Chloride [Moles/Vol] 107 mmol/L 98-107 [facility] Work Phone: Eosinophils/100 WBC (Bld) 4.1 % 0-5 [facility] Work Phone: Glucose [Mass/Vol] 120 mg/dL 74-106 [facility] Work Phone: Comment on above: Fasting Glucose resu lt from 100 to 125 mg/dL suggests IMPAIRED HOMEOSTASIS per A.D.A. criteria. Neutrophils (Bld) [#/Vol] 6.7 10*3/uL 2.0-7.7 [facility] Work Phone: Neutrophils/100 WBC (Bld) 66.6 % 47-70 [facility] Work Phone: Potassium [Moles/Vol] 4.3 mmol/L 3.5-5.1 [facility] Work Phone: Sodium [Moles/Vol] 138 mmol/L 136-145 [facility] Work Phone: WBC (Bld) [#/Vol] 10.1 10*3/uL 4.4-11.0 [facility] Work [facility]: Bilirubin Test strip Ql (U)o n 10-09-2021 Bilirubin Ql (U) Negative Negative [facility] Work Phone: Blood erythrocytes count (nu mber/volume)on 10-09-2021 RBC (Bld) [#/Vol] 3.74 10*6/uL 4.2-5.4 [facility] Work Phone: Blood hemoglobin measurement (mass/volume)on 10-09-2021 Hemoglobin (Bld) [Mass/Vol] 11.4 g/dL 12.0-15.0 [facility] Work Phone: Blood lymphocytes/100 leukoc yteson 10-09-2021 Lymphocytes/100 WBC (Bld) 23.6 % 19-41 [facility] Work Phone: Blood monocytes/100 leukocyt eson 10-09-2021 Monocytes/100 WBC (Bld) 4.7 % 0-10 [facility] Work Phone: Blood platelet mean volumeon 10-09-2021 Platelet mean volume (Bld) [Entitic vol] 10.4 fL 6.2-12.0 [facility] Work Phone: Determination of erythrocyte mean corpuscular volume (MCV)on 10-09-2021 MCV (RBC) [Entitic vol] 96.3 fL 81-99 [facility] Work Phone: Hematocrit Auto (Bld) [Volum e fraction]on 10-09-2021 Hematocrit (Bld) [Volume fraction] 36.0 % 37-47 [facility] Work Phone: Ketones Test strip Ql (U)on 10-09-2021 Ketones Ql (U) Negative Negative [facility] Work Phone: Laboratory - Chemistry and C hemistry - challengeon 10-09-2021 CO2 [Moles/Vol] 26.0 mmol/L 21.0-32.0 [facility] Work Phone: Urea nitrogen/Creatinine [Mass ratio] 10.0 mg/mg 10-20 [facility] Work Phone: Laboratory - Hematology and Cell countson 10-09-2021 Erythrocyte distribution width (RBC) [Entitic vol] 46.2 fL 35.1-43.9 [facility] Work Phone: Erythrocyte distribution width (RBC) [Ratio] 13.1 % 11.6-14.6 [facility] Work Phone: Immature granulocytes/100 WBC (Bld) 0.400 % 0.0-0.9 [facility] Work Phone: Comment on above: IG% - Immature Granu locytes (promyelocytes, myelocytes and metamyelocytes) > 1% indicates that a LEFT SHIFT is Present. MCH (RBC) [Entitic mass] 30.5 pg 27.0-32.0 [facility] Work Phone: Nucleated RBC/100 WBC (Bld) [Ratio] 0 % 0-5 [facility] Work Phone: MCHC Auto (RBC) [Mass/Vol]on 10-09-2021 MCHC (RBC) [Mass/Vol] 31.7 g/dL 32-36 [facility] Work Phone: Mucus LM Ql (Urine sed)on Mucus Ql (Urine sed) 0 SEEN /hpf [facility] Work Phone: Nitrite Test strip Ql (U)on 10-09-2021 Nitrite Ql (U) Negative Negative [facility] Work Phone: No Panel Informationon 10-09 Troponin I High Sensitivity 18 pg/mL 3.0-54.0 [facility] Work Phone: Comment on above: Please Note: [place] t Units and Gender Specific Reference Ranges. For more information see Policy Stat Procedure [place] High Sensitivity Troponin (TNIH) and attachments. Estimated Creatinine Clearance Calc 19.75 ml/min [facility] Work Phone: Estimated GFR (MDRD) Amer 35 mL/min >60 [facility] Work Phone: Comment on above: GFR Calc Estimated GFR (MDRD) Non-Af Amer 29 mL/min >60 [facility] Work Phone: Comment on above: Non- GFR Calc Platelets bldon 10-09-2021 Platelets (Bld) [#/Vol] 272 10*3/uL 150-450 [facility] Work Phone: Protein Test strip Ql (U)on 10-09-2021 Protein Ql (U) 30 mg/dl Negative [facility] Work Phone: Serum or plasma calcium beth urement (mass/volume)on 10-09-2021 Calcium [Mass/Vol] 8.7 mg/dL 8.5-10.1 [facility] Work Phone: Serum or plasma creatinine m easurement (mass/volume)on 10-09-2021 Creatinine [Mass/Vol] 1.80 mg/dL 0.55-1.02 [facility]: Comment on above: The validity of the calculated GFR & GFRAA in patients over 70 years has not been determined. Clinical correlation is essential. Serum or plasma urea nitroge n measurement (mass/volume)on 10-09-2021 Urea nitrogen [Mass/Vol] 18 mg/dL 7-18 [facility] Work Phone: Squamous epithelial cells de tection in urine sediment by light microscopyon 10-09-2021 Epithelial cells.squamous LM Ql (Urine sed) 5-10 SEEN /hpf [facility] Work Phone: Thin prep Papanicolaou smear with manual screeningon 10-09-2021 Thin prep Papanicolaou smear with manual screening 5 5-15 [facility] Work Phone: Urine blood detectionon 02-0 RBC Ql (U) 10 /ul Negative [facility] Work Phone: RBC Ql (U) 0-5 SEEN /hpf [facility] Work Phone: Urine clarityon 10-09-2021 Clarity (U) Sl. Cloudy Clear [facility] Work Phone: Urine color determinationon 10-09-2021 Color (U) Straw Yellow [facility] Work Phone: Urine glucose detectionon Glucose Ql (U) Normal mg/dl Normal [facility] Work Phone: Urine leukocyte esterase det ection by dipstickon 10-09-2021 Leukocyte esterase Test strip Ql (U) 500 /ul Negative [facility] Work Phone: Urine pHon 10-09-2021 pH (U) 6.5 [pH] [facility] Work Phone: Urine sediment bacteria coun t by microscopy (number/high power field)on 10-09-2021 Bacteria LM.HPF (Urine sed) [#/Area] 2 /[HPF] None Seen [facility] Work Phone: Urine specific gravity measu rementon 10-09-2021 Specific gravity (U) [Rel density] 1.010 [facility] Work Phone: Urobilinogen Auto test strip Ql (U)on 10-09-2021 Urobilinogen Ql (U) Normal mg/dl Normal [facility] Work Phone: Hemoglobin A1con 08-22-2021 Glucose [Mass/Vol] 134 mg/dL Normal [facility] Comment on above: Performed By: #### H BA1C #### [facility] Routine Lab [address], [place] [address] HbA1c (Bld) [Mass fraction] 6.3 % High 4.3-5.6 [facility] Comment on above: Performed By: #### H BA1C #### [facility] Routine Lab [address] [place] [address] Hemoglobin A1con 03-27-2021 Glucose [Mass/Vol] 143 mg/dL Normal [facility] Comment on above: Performed By: #### H BA1C #### [facility] Routine Lab [address] [address] HbA1c (Bld) [Mass fraction] 6.6 % High 4.3-5.6 [facility] Comment on above: Performed By: #### H BA1C #### [facility] [employer] Routine Lab [address] [address] PTH, [place] 10-19-2020 PTH, Intact 44 pg/mL Normal 15-65 [facility] Comment on above: Performed By: #### P THI #### [facility] [employer] Routine Lab [address], [place] [address] Office Visit: [facility] 06-23-20 17 Fall risk assessment No Invalid Interpretation Code [facility] Work Phone: [phone] Clinical Lists Update: [employer] computer [employer] 06-16-2017 Alanine aminotransferase (ALT) 12 U/L Invalid Interpretation Code [facility] Work Phone: [phone] Albumin 3.8 g/dL Invalid Interpretation Code [facility] Work Phone: [phone] Alkaline phosphatase (ALP) 61 U/L Invalid Interpretation Code [facility] Work Phone: [phone] ALP enzyme act/vol (Bld) 61 U/L Invalid Interpretation Code [facility] Work Phone: [phone] Aspartate aminotransferase (AST) 13 U/L Invalid Interpretation Code [facility] Work Phone: [phone] Bilirubin (direct) 0.1 mg/dL Invalid Interpretation Code [facility] Work Phone: [phone] Bilirubin (total) 0.4 mg/dL Invalid Interpretation Code [facility] Work Phone: [phone] Cholesterol 144 mg/dL Invalid Interpretation Code [facility] Work Phone: [phone] Cholesterol to HDL Ratio 4.2 {ratio} Invalid Interpretation Code [facility] Work Phone: [phone] HDL Cholesterol 34 mg/dL Low [facility] Work Phone: [phone] LDL Cholesterol 86 mg/dL Invalid Interpretation Code [facility] Work Phone: [phone] Protein 6.3 g/dL Low [facility] Work Phone: [phone] Triglyceride 120 mg/dL Invalid Interpretation Code [facility] Work Phone: [phone] Office Visiton 12-18-2016 Documentation of current medications (procedure) Done Invalid Interpretation Code [facility] Work Phone: [phone] Fall risk assessment No Invalid Interpretation Code [facility] Work Phone: [phone] Protein mass conc Done Invalid Interpretation Code [facility] Work Phone: [phone] Replaced Document: Sharron E CG Observationson 12-18-2016 EKG QRS axis 23 deg Invalid Interpretation Code [facility] Work Phone: [phone] Interpretation Sinus Rhythm WITHIN NORMAL LIMITS Invalid Interpretation Code [facility] Work Phone: [phone] P [place] 36 deg Invalid Interpretation Code [facility] Work Phone: [phone] LA Interval 132 ms Invalid Interpretation Code [facility] Work Phone: [phone] Pulse (Heart Rate) 74 /min Invalid Interpretation Code [facility] Work Phone: [phone] QRS Duration 102 ms Invalid Interpretation Code [facility] Work Phone: [phone] QT Interval new path ms Invalid Interpretation Code [facility] Work Phone: [phone] QTc Sandhu 428 ms Invalid Interpretation Code [facility] Work Phone: T [place] 41 deg Invalid Interpretation Code [facility] Work Phone: 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 Tobacco smoking status NHIS Never smoker Invalid Interpretation Code [facility] Work Phone: [phone] Tobacco use CPHS Never smoker Invalid Interpretation Code [facility] Work Phone: Culture, urine Bacteria identified Cx Nom (U) Positive [facility] Work Phone: Lower GI hemoglobin IA Ql (S tl) Stool Occult Blood (NIURKA) Positive [facility] Work Phone: No Panel Information SARS-CoV-2 & FLU Antigen (Rapid) [facility] Work Phone: Vital Signs Date Time Vital Sign Value Performing Clinician Kemali rosas 02-10-2025 13:23-0400 Body height 154.[address] Carlo Diaz MD Work Phone: [facility] 02-10-2025 13:15-0400 Body weight 66.[address] Carlo Diaz MD Work Phone: [facility] 02-10-2025 13:15-0400 Diastolic blood pressure 62 mm[Hg] Dr. Carlo Diaz MD Work Phone: [facility] 02-10-2025 13:15-0400 Heart rate 70 /min Dr. Carlo Diaz MD Work Phone: [facility] 02-10-2025 13:15-0400 Respiratory rate 18 /min Dr. Carlo Diaz MD Work Phone: [facility] 02-10-2025 13:15-0400 Systolic blood pressure 134 mm[Hg] Dr. Carlo Diaz MD Work Phone: [facility] 01-27-2025 03:51-0400 Body temperature 98.3 [degF] Dr. Carlo Diaz MD Work Phone: [facility] 01-27-2025 03:51-0400 Diastolic blood pressure 59 mm[Hg] Dr. Carlo Diaz MD Work Phone: [facility] 01-27-2025 03:51-0400 Heart rate 87 /min Dr. Carlo Diaz MD Work Phone: [facility] 01-27-2025 03:51-0400 Respiratory rate 18 /min Dr. Carlo Diaz MD Work Phone: 4(105)171-199804 [place] [address] 01-27-2025 03:51-0400 SaO2% (BldA) [Mass fraction] 100 % Dr. Carlo Diaz MD Work Phone: [facility] 01-27-2025 03:51-0400 Systolic blood pressure 135 mm[Hg] Dr. Carlo Diaz MD Work Phone: 0(357)393-692904 [place] [address] 01-27-2025 01:07-0400 Body height 154.[address] Carlo Diaz MD Work Phone: [facility] 01-27-2025 01:07-0400 Body mass index (BMI) [Ratio] 28.3 kg/m2 Dr. Carlo Diaz MD Work Phone: [facility] 01-27-2025 01:07-0400 Body weight [address] Carlo Diaz MD Work Phone: [facility] 01-23-2025 17:05-0400 Diastolic blood pressure 66 mm[Hg] Dr. Carlo Diaz MD Work Phone: [facility] 01-23-2025 17:05-0400 Heart rate 80 /min Dr. Carlo Diaz MD Work Phone: [facility] 01-23-2025 17:05-0400 SaO2% (BldA) [Mass fraction] 99 % Dr. Carlo Diaz MD Work Phone: [facility] 01-23-2025 17:05-0400 Systolic blood pressure 165 mm[Hg] Dr. Carlo Diaz MD Work Phone: [facility] 01-23-2025 17:03-0400 Body temperature 97.5 [degF] Dr. Carlo Diaz MD Work Phone: [facility] 01-23-2025 17:03-0400 Respiratory rate 16 /min Dr. Carlo Diaz MD Work Phone: [facility] 01-23-2025 12:18-0400 Body height 154.[address] Carlo Diaz MD Work Phone: [facility] 01-23-2025 12:18-0400 Body mass index (BMI) [Ratio] 28.5 kg/m2 Dr. Carlo Diaz MD Work Phone: [facility] 01-23-2025 12:18-0400 Body weight 68.[address] Carlo Diaz MD Work Phone: [facility] 01-17-2025 20:58-0400 Body temperature 98 [degF] Dr. Carlo Diaz MD Work Phone: [facility] 01-17-2025 20:58-0400 Diastolic blood pressure 51 mm[Hg] Dr. Carlo Diaz MD Work Phone: [facility] 01-17-2025 20:58-0400 Heart rate 82 /min Dr. Carlo Diaz MD Work Phone: [facility] 01-17-2025 20:58-0400 Respiratory rate 14 /min Dr. Carlo Diaz MD Work Phone: [facility] 01-17-2025 20:58-0400 SaO2% (BldA) [Mass fraction] 97 % Dr. Carlo Diaz MD Work Phone: [facility] 01-17-2025 20:58-0400 Systolic blood pressure 130 mm[Hg] Dr. Carlo Diaz MD Work Phone: 1(517)598-328704 [place] [address] 01-17-2025 16:37-0400 Body height 154.[address] Carlo Diaz MD Work Phone: 4(642)212-831304 [place] [address] 01-17-2025 16:37-0400 Body mass index (BMI) [Ratio] 28.2 kg/m2 Dr. Carlo Diaz MD Work Phone: 9(911)061-933704 [place] [address] 01-17-2025 16:37-0400 Body weight 67.[address] Carlo Diaz MD Work Phone: 8(717)566-966504 [place] [address] 12-03-2024 17:41-0400 Body temperature 98.2 [degF] Dr. Carlo Diaz MD Work Phone: 7(321)129-860257 [place] [address] 12-03-2024 17:41-0400 Diastolic blood pressure 53 mm[Hg] Dr. Carlo Diaz MD Work Phone: 3(999)462-362204 [place] [address] 12-03-2024 17:41-0400 Heart rate 83 /min Dr. Carlo Diaz MD Work Phone: 4(041)764-151604 [place] [address] 12-03-2024 17:41-0400 Respiratory rate 15 /min Dr. Carlo Diaz MD Work Phone: 8(464)416-920757 [place] [address] 12-03-2024 17:41-0400 SaO2% (BldA) [Mass fraction] 100 % Dr. Carlo Diaz MD Work Phone: 0(042)057-196004 [place] [address] 12-03-2024 17:41-0400 Systolic blood pressure 140 mm[Hg] Dr. Carlo Diaz MD Work Phone: 0(189)563-690804 [place] [address] 12-03-2024 11:24-0400 Body height 154.[address] Carlo Diaz MD Work Phone: 6(328)712-432657 [place] [address] 12-03-2024 11:24-0400 Body mass index (BMI) [Ratio] 30.4 kg/m2 Dr. Carlo Diaz MD Work Phone: 3(763)524-316804 [place] [address] 12-03-2024 11:24-0400 Body weight 73.[address] Carlo Diaz MD Work Phone: [facility] 11-17-2024 20:00-0400 SaO2% (BldA) [Mass fraction] 97 % Dr. Carlo Diaz MD Work Phone: [facility] 11-17-2024 19:00-0400 Body temperature 98.1 [degF] Dr. Carlo Diaz MD Work Phone: [facility] 11-17-2024 19:00-0400 Diastolic blood pressure 50 mm[Hg] Dr. Carlo Diaz MD Work Phone: [facility] 11-17-2024 19:00-0400 Heart rate 75 /min Dr. Carlo Diaz MD Work Phone: 1(011)044-883004 [place] [address] 11-17-2024 19:00-0400 Respiratory rate 15 /min Dr. Carlo Diaz MD Work Phone: [facility] 11-17-2024 19:00-0400 Systolic blood pressure 130 mm[Hg] Dr. Carlo Diaz MD Work Phone: [facility] 11-15-2024 22:56-0400 Inhaled oxygen flow rate 2 L/min Dr. Carlo Diaz MD Work Phone: [facility] 11-15-2024 20:39-0400 Body height 156.[address] Carlo Diaz MD Work Phone: [facility] 11-15-2024 20:39-0400 Body mass index (BMI) [Ratio] 30.5 kg/m2 Dr. Carlo Diaz MD Work Phone: [facility] 11-15-2024 20:39-0400 Body weight 74.[address] Carlo Diaz MD Work Phone: [facility] 11-15-2024 15:37-0400 Body temperature 98 [degF] Dr. Carlo Diaz MD Work Phone: [facility] 11-15-2024 15:37-0400 Diastolic blood pressure 48 mm[Hg] Dr. Carlo Diaz MD Work Phone: [facility] 11-15-2024 15:37-0400 Heart rate 67 /min Dr. Carlo Diaz MD Work Phone: [facility] 11-15-2024 15:37-0400 Respiratory rate 16 /min Dr. Carlo Diaz MD Work Phone: [facility] 11-15-2024 15:37-0400 SaO2% (BldA) [Mass fraction] 99 % Dr. Carlo Diaz MD Work Phone: [facility] 11-15-2024 15:37-0400 Systolic blood pressure 141 mm[Hg] Dr. Carlo Diaz MD Work Phone: [facility] 11-15-2024 15:36-0400 Body height 154.[address] Carlo Diaz MD Work Phone: [facility] 11-15-2024 15:36-0400 Body mass index (BMI) [Ratio] 31 kg/m2 Dr. Carlo Diaz MD Work Phone: [facility] 11-15-2024 15:36-0400 Body weight 74.[address] Carlo Diaz MD Work Phone: [facility] 08-25-2024 14:59-0500 Body mass index (BMI) [Ratio] 30.2 kg/m2 Dr. Carlo Diaz MD Work Phone: [facility] 08-25-2024 14:59-0500 Body weight 72.[address] Carlo Diaz MD Work Phone: [facility] 08-25-2024 14:59-0500 Diastolic blood pressure 84 mm[Hg] Dr. Carlo Diaz MD Work Phone: [facility] 08-25-2024 14:59-0500 Heart rate 75 /min Dr. Carlo Diaz MD Work Phone: [facility] 08-25-2024 14:59-0500 Respiratory rate 16 /min Dr. Carlo Diaz MD Work Phone: [facility] 08-25-2024 14:59-0500 SaO2% (BldA) [Mass fraction] 100 % Dr. Carlo Diaz MD Work Phone: [facility] 08-25-2024 14:59-0500 Systolic blood pressure 145 mm[Hg] Dr. Carlo Diaz MD Work Phone: [facility] 11-07-2023 15:08-0500 Body temperature 98.1 [degF] Dr. Carlo Diaz Work Phone: [facility] 11-07-2023 15:08-0500 Diastolic blood pressure 53 mm[Hg] Dr. Carlo Diaz Work Phone: [facility] 11-07-2023 15:08-0500 Heart rate 78 /min Dr. Carlo Diaz Work Phone: [facility] 11-07-2023 15:08-0500 Respiratory rate 16 /min Dr. Carlo Diaz Work Phone: [facility] 11-07-2023 15:08-0500 SaO2% (BldA) [Mass fraction] 97 % Dr. Carlo Diaz Work Phone: [facility] 11-07-2023 15:08-0500 Systolic blood pressure 119 mm[Hg] Dr. Carlo Diaz Work Phone: [facility] 11-07-2023 08:25-0500 Inhaled oxygen flow rate 1 L/min Dr. Carlo Diaz Work Phone: [facility] 11-07-2023 02:30-0500 Body mass index (BMI) [Ratio] 31.8 kg/m2 Dr. Carlo Diaz Work Phone: [facility] 11-07-2023 02:30-0500 Body weight 76.[address] Carlo Diaz Work Phone: [facility] 11-05-2023 10:13-0500 Body height 154.[address] Carlo Diaz Work Phone: [facility] 06-04-2023 01:08-0400 Diastolic blood pressure 68 mm[Hg] [facility] 06-04-2023 01:08-0400 Heart rate 69 /min [facility] 06-04-2023 01:08-0400 Respiratory rate 14 /min [facility] 06-04-2023 01:08-0400 SaO2% (BldA) [Mass fraction] 98 % [facility] 06-04-2023 01:08-0400 Systolic blood pressure 159 mm[Hg] [facility] 06-03-2023 22:49-0400 Body height 154.94 cm [facility] 06-03-2023 22:49-0400 Body temperature 97.9 [degF] [facility] 04-20-2023 13:07-0400 Body mass index (BMI) [Ratio] 36.5 kg/m2 [facility] 04-20-2023 13:07-0400 Body weight 87.7 kg [facility] 04-20-2023 13:01-0400 Body temperature 97 [degF] [facility] 04-20-2023 13:01-0400 Diastolic blood pressure 73 mm[Hg] [facility] 04-20-2023 13:01-0400 Heart rate 86 /min [facility] 04-20-2023 13:01-0400 Respiratory rate 16 /min [facility] 04-20-2023 13:01-0400 SaO2% (BldA) [Mass fraction] 100 % [facility] 04-20-2023 13:01-0400 Systolic blood pressure 185 mm[Hg] [facility] 02-08-2023 16:46-0400 Respiratory rate 16 /min Dr. Carlo Diaz Work Phone: [facility] 02-08-2023 16:03-0400 Heart rate 68 /min Dr. Carlo Diaz Work Phone: [facility] 02-08-2023 15:46-0400 Diastolic blood pressure 65 mm[Hg] Dr. Carlo Diaz Work Phone: [facility] 02-08-2023 15:46-0400 SaO2% (BldA) [Mass fraction] 100 % Dr. Carlo Diaz Work Phone: [facility] 02-08-2023 15:46-0400 Systolic blood pressure 160 mm[Hg] Dr. Carlo Diaz Work Phone: [facility] 02-08-2023 14:47-0400 Body height 154.[address] Carlo Diaz Work Phone: [facility] 02-08-2023 14:47-0400 Body temperature 98.1 [degF] Dr. Carlo Diaz Work Phone: [facility] 02-05-2023 19:47-0400 Respiratory rate 18 /min Dr. Carlo Diaz Work Phone: [facility] 02-05-2023 17:55-0400 Body height 154.[address] Carlo Diaz Work Phone: [facility] 02-05-2023 17:55-0400 Body temperature 98.4 [degF] Dr. Carlo Diaz Work Phone: [facility] 02-05-2023 17:55-0400 Diastolic blood pressure 74 mm[Hg] Dr. Carlo Diaz Work Phone: [facility] 02-05-2023 17:55-0400 Heart rate 88 /min Dr. Carlo Diaz Work Phone: 0(924)070-373704 [place] [address] 02-05-2023 17:55-0400 SaO2% (BldA) [Mass fraction] 99 % Dr. Carlo Diaz Work Phone: [facility] 02-05-2023 17:55-0400 Systolic blood pressure 177 mm[Hg] Dr. Carlo Diaz Work Phone: [facility] 12-25-2022 14:30-0400 Body mass index (BMI) [Ratio] 35.1 kg/m2 Dr. Carlo Diaz Work Phone: 3(055)527-071904 [place] [address] 12-25-2022 14:30-0400 Body weight 84.[address] Carlo Diaz Work Phone: 4(721)126-233704 [place] [address] 12-25-2022 14:30-0400 Diastolic blood pressure 76 mm[Hg] Dr. Carlo Diaz Work Phone: 5(064)729-462104 [place] [address] 12-25-2022 14:30-0400 Heart rate 60 /min Dr. Carlo Diaz Work Phone: 7(629)939-173904 [place] [address] 12-25-2022 14:30-0400 Respiratory rate 18 /min Dr. Carlo Diaz Work Phone: 7(735)080-487104 [place] [address] 12-25-2022 14:30-0400 SaO2% (BldA) [Mass fraction] 100 % Dr. Carlo Diaz Work Phone: [facility] 12-25-2022 14:30-0400 Systolic blood pressure 135 mm[Hg] Dr. Carlo Diaz Work Phone: [facility] 11-16-2022 01:51-0500 Diastolic blood pressure 64 mm[Hg] Dr. Carlo Diaz Work Phone: [facility] 11-16-2022 01:51-0500 Heart rate 59 /min Dr. Carlo Diaz Work Phone: [facility] 11-16-2022 01:51-0500 Respiratory rate 18 /min Dr. Carlo Diaz Work Phone: [facility] 11-16-2022 01:51-0500 SaO2% (BldA) [Mass fraction] 95 % Dr. Carlo Diaz Work Phone: [facility] 11-16-2022 01:51-0500 Systolic blood pressure 161 mm[Hg] Dr. Carlo Diaz Work Phone: [facility] 11-15-2022 22:29-0500 Body height 154.[address] Carlo Diaz Work Phone: [facility] 11-15-2022 22:29-0500 Body mass index (BMI) [Ratio] 36.3 kg/m2 Dr. Carlo Diaz Work Phone: [facility] 11-15-2022 22:29-0500 Body temperature 97.4 [degF] Dr. Carlo Diaz Work Phone: [facility] 11-15-2022 22:29-0500 Body weight 87.[address] Carlo Diaz Work Phone: [facility] 10-30-2022 03:43-0500 Diastolic blood pressure 79 mm[Hg] Dr. Carlo Diaz Work Phone: [facility] 10-30-2022 03:43-0500 Heart rate 72 /min Dr. Carlo Diaz Work Phone: [facility] 10-30-2022 03:43-0500 Respiratory rate 20 /min Dr. Carlo Diaz Work Phone: [facility] 10-30-2022 03:43-0500 SaO2% (BldA) [Mass fraction] 99 % Dr. Carlo Diaz Work Phone: [facility] 10-30-2022 03:43-0500 Systolic blood pressure 147 mm[Hg] Dr. Carlo Diaz Work Phone: [facility] 10-30-2022 00:07-0500 Body height 154.[address] Carlo Diaz Work Phone: [facility] 10-30-2022 00:07-0500 Body mass index (BMI) [Ratio] 35.4 kg/m2 Dr. Carlo Diaz Work Phone: [facility] 10-30-2022 00:07-0500 Body temperature 98.1 [degF] Dr. Carlo Diaz Work Phone: [facility] 10-30-2022 00:07-0500 Body weight 85.[address] Carlo Diaz Work Phone: [facility] 09-23-2022 17:47-0500 Heart rate 77 /min Dr. Carlo Diaz Work Phone: [facility] 09-23-2022 17:47-0500 Respiratory rate 18 /min Dr. Carlo Diaz Work Phone: [facility] 09-23-2022 16:00-0500 Body temperature 98.2 [degF] Dr. Carlo Diaz Work Phone: [facility] 09-23-2022 16:00-0500 Diastolic blood pressure 53 mm[Hg] Dr. Carlo Diaz Work Phone: [facility] 09-23-2022 16:00-0500 SaO2% (BldA) [Mass fraction] 98 % Dr. Carlo Diaz Work Phone: [facility] 09-23-2022 16:00-0500 Systolic blood pressure 151 mm[Hg] Dr. Carlo Diaz Work Phone: [facility] 09-23-2022 12:40-0500 Body height 154.[address] Carlo Diaz Work Phone: [facility] 09-23-2022 12:40-0500 Body weight 89.[address] Carlo Diaz Work Phone: [facility] 09-21-2022 06:07-0500 Body mass index (BMI) [Ratio] 36.6 kg/m2 Dr. Carlo Diaz Work Phone: [facility] 09-20-2022 16:40-0500 Body temperature 98.5 [degF] Dr. Carlo Diaz Work Phone: [facility] Work Phone: 09-20-2022 16:40-0500 Diastolic blood pressure 74 mm[Hg] Dr. Carlo Diaz Work Phone: [facility] Work Phone: 09-20-2022 16:40-0500 Heart rate 79 /min Dr. Carlo Diaz Work Phone: [facility] Work Phone: 09-20-2022 16:40-0500 Respiratory rate 16 /min Dr. Carlo Diaz Work Phone: [facility] Work Phone: 09-20-2022 16:40-0500 SaO2% (BldA) [Mass fraction] 98 % Dr. Carlo Diaz Work Phone: [facility] Work Phone: 09-20-2022 16:40-0500 Systolic blood pressure 150 mm[Hg] Dr. Carlo Diaz Work Phone: [facility] Work Phone: 09-20-2022 11:46-0500 Body height 154.[address] Carlo Diaz Work Phone: [facility] Work Phone: 09-20-2022 11:46-0500 Body mass index (BMI) [Ratio] 36.4 kg/m2 Dr. Carlo Diaz Work Phone: [facility] Work Phone: 09-20-2022 11:46-0500 Body weight 87.[address] Carlo Diaz Work Phone: [facility] Work Phone: 09-18-2022 14:35-0500 Heart rate 78 /min Dr. Carlo Diaz Work Phone: [facility] 09-18-2022 14:35-0500 Respiratory rate 17 /min Dr. Carlo Diaz Work Phone: [facility] 09-18-2022 14:35-0500 SaO2% (BldA) [Mass fraction] 98 % Dr. Carlo Diaz Work Phone: [facility] 09-18-2022 11:54-0500 Body height 154.[address] Carlo Diaz Work Phone: [facility] Work Phone: 09-18-2022 11:54-0500 Body mass index (BMI) [Ratio] 36.4 kg/m2 Dr. Carlo Diaz Work Phone: [facility] 09-18-2022 11:54-0500 Body temperature 96.7 [degF] Dr. Carlo Diaz Work Phone: [facility] 09-18-2022 11:54-0500 Body weight 87.[address] Carlo Diaz Work Phone: [facility] 09-18-2022 11:54-0500 Diastolic blood pressure 60 mm[Hg] Dr. Carlo Diaz Work Phone: [facility] 09-18-2022 11:54-0500 Systolic blood pressure 160 mm[Hg] Dr. Carlo Diaz Work Phone: [facility] 08-28-2022 13:19-0500 Body height 154.[address] Carlo Diaz Work Phone: [facility] Work Phone: 08-28-2022 13:19-0500 Body mass index (BMI) [Ratio] 36.6 kg/m2 Dr. Carlo Diaz Work Phone: [facility] 08-28-2022 13:19-0500 Body weight 87.[address] Carlo Diaz Work Phone: [facility] 08-28-2022 13:19-0500 Diastolic blood pressure 83 mm[Hg] Dr. Carlo Diaz Work Phone: [facility] 08-28-2022 13:19-0500 Heart rate 72 /min Dr. Carlo Diaz Work Phone: [facility] 08-28-2022 13:19-0500 Respiratory rate 18 /min Dr. Carlo Diaz Work Phone: [facility] 08-28-2022 13:19-0500 SaO2% (BldA) [Mass fraction] 100 % Dr. Carlo Diaz Work Phone: [facility] 08-28-2022 13:19-0500 Systolic blood pressure 161 mm[Hg] Dr. Carlo Diaz Work Phone: [facility] 05-24-2022 13:41-0400 Body mass index (BMI) [Ratio] 38 kg/m2 Dr. Carlo Diaz Work Phone: [facility] Work Phone: 05-24-2022 13:41-0400 Body weight 91.[address] Carlo Diaz Work Phone: [facility] Work Phone: 05-24-2022 13:41-0400 Diastolic blood pressure 65 mm[Hg] Dr. Carlo Diaz Work Phone: [facility] Work Phone: 05-24-2022 13:41-0400 Heart rate 65 /min Dr. Carlo Diaz Work Phone: [facility] Work Phone: 05-24-2022 13:41-0400 Respiratory rate 18 /min Dr. Carlo Diaz Work Phone: [facility] Work Phone: 05-24-2022 13:41-0400 Systolic blood pressure 139 mm[Hg] Dr. Carlo Diaz Work Phone: [facility] Work Phone: 03-30-2022 18:40-0400 Diastolic blood pressure 63 mm[Hg] [facility] Work Phone: 03-30-2022 18:40-0400 Heart rate 63 /min [facility] Work Phone: 03-30-2022 18:40-0400 Respiratory rate 16 /min [facility] Work Phone: 03-30-2022 18:40-0400 SaO2% (BldA) [Mass fraction] 100 % [facility] Work Phone: 03-30-2022 18:40-0400 Systolic blood pressure 156 mm[Hg] [facility] Work Phone: 03-30-2022 14:04-0400 Body height 154.94 cm [facility] Work Phone: 03-30-2022 14:04-0400 Body mass index (BMI) [Ratio] 37.8 kg/m2 [facility] Work Phone: 03-30-2022 14:04-0400 Body temperature 98 [degF] [facility] Work Phone: 03-30-2022 14:04-0400 Body weight 90.71 kg [facility] Work Phone: 03-28-2022 05:23-0400 Body height 154.94 cm [facility] Work Phone: 03-28-2022 05:23-0400 Body mass index (BMI) [Ratio] 38.8 kg/m2 [facility] Work Phone: 03-28-2022 05:23-0400 Body temperature 96.5 [degF] [facility] Work Phone: 03-28-2022 05:23-0400 Body weight 93.3 kg [facility] Work Phone: 03-28-2022 05:23-0400 Diastolic blood pressure 73 mm[Hg] [facility] Work Phone: 03-28-2022 05:23-0400 Heart rate 78 /min [facility] Work Phone: 03-28-2022 05:23-0400 Respiratory rate 9 /min [facility] Work Phone: 03-28-2022 05:23-0400 SaO2% (BldA) [Mass fraction] 99 % [facility] Work Phone: 03-28-2022 05:23-0400 Systolic blood pressure 193 mm[Hg] [facility] Work Phone: 01-10-2022 09:55-0400 Body height 154.[address] Carlo Diaz Work Phone: [facility] Work Phone: 01-10-2022 09:55-0400 Body mass index (BMI) [Ratio] 37.8 kg/m2 Dr. Carlo Diaz Work Phone: [facility] Work Phone: 01-10-2022 09:55-0400 Body temperature 97.3 [degF] Dr. Carlo Diaz Work Phone: [facility] Work Phone: 01-10-2022 09:55-0400 Body weight 90.[address] Carlo Diaz Work Phone: [facility] Work Phone: 01-10-2022 09:55-0400 Diastolic blood pressure 49 mm[Hg] Dr. Carlo Diaz Work Phone: [facility] Work Phone: 01-10-2022 09:55-0400 Heart rate 56 /min Dr. Carlo Diaz Work Phone: [facility] Work Phone: 01-10-2022 09:55-0400 Respiratory rate 18 /min Dr. Carlo Diaz Work Phone: [facility] Work Phone: 01-10-2022 09:55-0400 SaO2% (BldA) [Mass fraction] 99 % Dr. Carlo Diaz Work Phone: [facility] Work Phone: 01-10-2022 09:55-0400 Systolic blood pressure 182 mm[Hg] Dr. Carlo Diaz Work Phone: [facility] Work Phone: 11-22-2021 12:29-0400 Body weight 91.[address] Carlo Diaz Work Phone: [facility] Work Phone: 11-22-2021 12:29-0400 Diastolic blood pressure 75 mm[Hg] Dr. Carlo Diaz Work Phone: [facility] Work Phone: 11-22-2021 12:29-0400 Heart rate 56 /min Dr. Carlo Diaz Work Phone: [facility] Work Phone: 11-22-2021 12:29-0400 Respiratory rate 16 /min Dr. Carlo Diaz Work Phone: [facility] Work Phone: 11-22-2021 12:29-0400 SaO2% (BldA) [Mass fraction] 99 % Dr. Carlo Diaz Work Phone: [facility] Work Phone: 11-22-2021 12:29-0400 Systolic blood pressure 159 mm[Hg] Dr. Carlo Diaz Work Phone: [facility] Work Phone: 10-09-2021 14:56-0500 Diastolic blood pressure 70 mm[Hg] Dr. Carlo Diaz Work Phone: [facility] Work Phone: 10-09-2021 14:56-0500 Heart rate 68 /min Dr. Carlo Diaz Work Phone: [facility] Work Phone: 10-09-2021 14:56-0500 Respiratory rate 11 /min Dr. Carlo Diaz Work Phone: [facility] Work Phone: 10-09-2021 14:56-0500 SaO2% (BldA) [Mass fraction] 99 % Dr. Carlo Diaz Work Phone: [facility] Work Phone: 10-09-2021 14:56-0500 Systolic blood pressure 186 mm[Hg] Dr. Carlo Diaz Work Phone: [facility] Work Phone: 10-09-2021 12:01-0500 Body temperature 97 [degF] Dr. Carlo Diaz Work Phone: [facility] Work Phone: 10-09-2021 10:17-0500 Body mass index (BMI) [Ratio] 38.3 kg/m2 Dr. Carlo Diaz Work Phone: [facility] Work Phone: 10-09-2021 10:17-0500 Body weight 92.[address] Carlo Diaz Work Phone: [facility] Work Phone: 02-20-2021 15:29-0400 Body mass index (BMI) [Ratio] 39.1 kg/m2 Dr. Carlo Diaz Work Phone: [facility] Work Phone: 06-23-2017 13:07-0400 BMI (Body Mass Index) 40.78 kg/m2 Carlosanisa Christy [facility] Work Phone: 06-23-2017 13:07-0400 [...] Mass Index) 40.93 kg/m2 Saba Milian PA-C [facility] Work Phone: 12-18-2016 11:39-0400 BP Diastolic 50 mm[Hg] Saba Milian PA-C [facility] Work Phone: 12-18-2016 11:39-0400 BP Systolic 130 mm[Hg] Saba Milian PA-C [facility] Work Phone: 12-18-2016 11:39-0400 Height 157.48 cm [facility] Work Phone: 12-18-2016 11:39-0400 Pulse (Heart Rate) 74 /min [facility] Work Phone: 12-18-2016 11:39-0400 Respiratory Rate 20 /min [facility] Work Phone: 12-18-2016 11:39-0400 Weight 101.52 kg [facility] Work Phone: Encounters Encounter Date Encounter Type Care Provider Facility Start: 04-11-2025 End: 04-11-2025 ambulatory PERCY NOEL [facility] Start: 04-07-[address] [facility] Start: 03-07-2025 End: 03-07-2025 ambulatory CHEYANNE DUQUE [facility] Start: 02-10-2025 End: 02-10-2025 [facility] Work Phone: Start: 02-10-2025 End: 02-10-[address] Carlo Diaz MD Work Phone: [facility] Work Phone: Start: 02-05-2025 End: 02-05-2025 ambulatory CHEYANNE DUQUE [facility] Start: 02-04-2025 End: 02-04-2025 ambulatory CHEYANNE DUQUE [facility] Start: [facility]-28[facility] Start: 01-27-2025 End: 01-27-2025 Emergency department patient visit Dr. Carlo Diaz MD Work Phone: -Emergency Department Work Phone: Start: 01-23-2025 End: 01-23-2025 Emergency department patient visit Dr. Carlo Diaz MD Work Phone: -Emergency Department Work Phone: Start: 01-22-2025 End: 01-22-2025 ambulatory CARLO DUQUE [facility] Start: 01-17-2025 End: 01-17-2025 Emergency department patient visit Dr. Carlo Diaz MD Work Phone: -Emergency Department Work Phone: Start: 01-12-2025 End: 01-12-2025 ambulatory CARLO DUQUE [facility] Start: 01-12-2025 ambulatory CARLO DUQUE [facility] Start: 12-13-2024 End: 12-13-2024 ambulatory CHEYANNE DUQUE [facility] Start: 12-09-2024 End: 12-09-[address] Juancho Mendoza MD -[facility] Work Phone: Start: 12-09-2024 End: 12-09-2024 ambulatory Juancho Mendoza [place] Start: 12-03-2024 End: 12-03-2024 Emergency department patient visit Dr. Carlo Diaz MD Work Phone: -Emergency Department Work Phone: Start: 11-25-2024 End: 11-25-2024 ambulatory CARLO DUQUE [facility] Start: 11-17-2024 Non-patient / Non-visit Karin Summers PA-C -[facility] Start: 11-16-2024 Non-patient / Non-visit Dr. Juancho Mendoza MD -[facility] Start: 11-15-2024 End: 11-17-2024 ambulatory Carlo Diaz Facility:[facility] Start: 11-15-2024 End: 11-17-2024 Evaluation and management of inpatient Dr. Juancho Mendoza MD -[facility] Work Phone: Start: 11-15-2024 End: 11-17-[address] Carlo Diaz MD Work Phone: [facility] Work Phone: Start: 11-15-2024 Non-patient / Non-visit Dr. Juancho Mendoza MD -[facility] Start: 11-15-2024 Admission to [facility] Dr[facility] Juancho Mendoza MD -Materials Analyst Work Phone: Start: 11-15-[address] Carlo palomino MD Work Phone: [facility] Work Phone: Start: 10-29-2024 End: 10-29-2024 ambulatory PERCY NOEL [facility] Start: 09-24-2024 End: 09-24-2024 [facility] Start: 08-25-2024 End: 08-25-2024 Patient encounter procedure Saba Milian [place] [facility] Work Phone: Start: 08-25-2024 End: 08-25-2024 ambulatory Carlo Diaz Facility:[facility] Start: 08-11-2024 End: 08-11-[address] [facility] Start: 07-10-2024 End: 07-10-2024 [facility] Start: 06-17-2024 End: 06-17-2024 ambulatory CARLO DUQUE [facility] Start: 06-10-2024 ambulatory Alfonso Neville Facility:[facility] Start: 06-10-2024 ambulatory Jenniferasad Santos Fa cility:[facility] Start: 06-10-2024 End: 06-11-2024 Evaluation and management of inpatient Nagaprasad Nagajothi Facility:[facility] Start: 05-25-2024 End: 05-25-[address] [facility] Start: 05-11-2024 End: 05-11-2024 [facility] Start: 05-09-2024 End: 05-10-2024 Emergency department patient visit Carlo Diaz Facility:[facility] Start: 03-02-2024 End: 03-06-[address] CARLO DIAZ MD Facility:[facility] Start: 02-27-2024 End: 02-27-2024 ambulatory Carlo Diaz Facility:[facility] Start: 11-07-2023 Non-patient / Non-visit Dr. Carlo Diaz Work Phone: [facility] Work Phone: Start: 11-06-2023 Non-patient / Non-visit Dr. Carlo Diaz Work Phone: [facility] Start: 11-06-2023 Non-patient / Non-visit Dr. Carlo Diaz Work Phone: [facility] Work Phone: Start: 11-05-2023 Non-patient / Non-visit Dr. Carlo Diaz Work Phone: [facility] Start: 11-05-2023 Non-patient / Non-visit Dr. Carlo Diaz Work Phone: [facility] Work Phone: Start: 11-04-2023 Non-patient / Non-visit Dr. Carlo Diaz Work Phone: [facility] Start: 11-04-2023 Non-patient / Non-visit Dr. Carlo Diaz Work Phone: [facility] Work Phone: Start: 11-04-2023 End: 11-07-2023 Evaluation and management of inpatient Dr. Carlo Diaz Work Phone: [facility]-Pro[facility] Unit Work Phone: Start: 06-03-2023 End: 06-04-2023 [facility] Start: 04-20-2023 End: 04-20-2023 Emergency department patient visit [facility] Work Phone: Start: 02-08-2023 End: 02-08-2023 Emergency department patient visit Dr. Carlo Diaz Work Phone: [facility] Start: 02-05-2023 End: 02-05-2023 Emergency department patient visit Dr. Carlo Diaz Work Phone: [facility] Start: 12-25-2022 End: 12-25-[address] Carlo Diaz Work Phone: [facility] Start: 11-15-2022 End: 11-16-2022 Emergency department patient visit Dr. Carlo Diaz Work [facility] [facility] Start: 10-30-2022 End: 10-30-2022 Emergency department patient visit Dr. Carlo Diaz Work Phone: [facility]-Emergency Department Start: 10-04-2022 End: 10-04-[address] Carlo Diaz Work Phone: [facility] Work Phone: Start: 10-04-2022 End: 10-04-[address] Carlo Diaz Work Phone: [facility]-Laboratory Start: 09-27-2022 Non-patient / Non-visit Dr. Carlo Diaz Work Phone: [facility] Start: 09-27-2022 End: 09-27-[address] Carlo Diaz Work Phone: [facility] Work Phone: Start: 09-27-2022 End: 09-27-[address] Carlo Diaz Work Phone: [facility]-Cardiovascul ar Services Start: 09-23-2022 Non-patient / Non-visit Dr. Carlo Diaz Work Phone: [facility] Inpatient Physicians Start: 09-22-2022 Non-patient / Non-visit Dr. Carlo Diaz Work Phone: [facility] Start: 09-22-2022 Non-patient / Non-visit Dr. Carlo Diaz Work Phone: [facility] Inpatient Physicians Start: 09-21-2022 Non-patient / Non-visit Dr. Carlo Diaz Work Phone: [facility] Start: 09-21-2022 Non-patient / Non-visit Dr. Carlo Diaz Work Phone: [facility] Start: 09-20-2022 Non-patient / Non-visit Dr. Carlo Diaz Work Phone: [facility] Inpatient Physicians Start: 09-20-2022 End: 09-20-2022 Non-patient / Non-visit Dr. Carlo Diaz Work Phone: [facility] Heart Group Start: 09-20-2022 End: 09-23-2022 Evaluation and management of inpatient Dr. Carlo Diaz Work Phone: [facility]-Progressive Care Unit Start: 09-18-2022 End: 09-18-2022 Emergency department patient visit Dr. Carlo Diaz Work Phone: [facility]-Emergency Department Start: 08-28-2022 End: 08-28-[address] Carlo Diaz Work Phone: [facility] Work Phone: Start: 08-28-2022 End: 08-28-[address] Carlo Diaz Work Phone: [facility]-Laboratory Start: 08-28-2022 End: 08-28-[address] Carlo Diaz Work Phone: [facility] Start: 05-24-2022 End: 05-24-[address] Carlo Diaz Work Phone: [facility] Start: 03-30-2022 End: 03-30-2022 [facility] Start: 03-28-2022 End: 03-28-2022 [facility] Start: 01-10-2022 End: 01-10-2022 Emergency department patient visit Dr. Carlo Diaz Work Phone: [facility]-Emergency Department Start: 11-22-2021 End: 11-22-[address] Carlo Diaz Work Phone: [facility] Start: 10-09-2021 End: 10-09-2021 Emergency department patient [facility] Date Procedure Procedure Detail Performing Clinician Start: 01-23-2025 X-ray of chest, PA and lateral views Dr. Carlo Diaz MD Work Phone: Start: 01-23-[address] Dalton Diaz MD Work Phone: Start: 01-17-2025 Plain chest X-ray Dr. Carlo Diaz MD Work Phone: Start: 01-17-[address] Dalton Diaz MD Work Phone: Start: 12-03-2024 X-ray of chest, PA and lateral views Dr. Carlo Diaz MD Work Phone: Start: 12-03-2024 Urnls dip stick/tablet reagent auto microscopy Dr. Carlo Diaz MD Work Phone: Start: 12-03-[address] Dalton Diaz MD Work Phone: Start: 12-03-2024 SARS-CoV-2, Influenza & RSV (PCR) Dr. Jim Diaz MD Work Phone: Start: 11-16-[address] Dalton Diaz MD Work Phone: Start: 11-15-[address] Carlo Diaz MD Work Phone: Start: 11-15-2024 Urnls dip stick/tablet reagent auto microscopy Dr. Carlo Diaz MD Work Phone: Start: 11-15-2024 CT of abdomen and pelvis without contrast Dr. Carlo Diaz MD Work Phone: Start: 06-17-2024 Urinalysis CARLO DIAZ Comment on above: Result Comment: URINALYSIS Performed By: #### [id number] #### [facility],[address] [place] [id number] Start: 11-04-2023 Plain chest X-ray Dr. Carlo Diaz Work Phone: Start: 04-20-2023 Urine culture Start: 04-20-2023 X-ray of cervical spine Start: 02-08-2023 Plain chest X-ray Dr. Carlo Diaz Work Phone: Start: 02-08-2023 SARS-CoV-2 & FLU Antigen (Rapid) Dr. Errol Diaz Work Phone: Start: 02-05-2023 Plain X-ray of shoulder Dr. Carlo holt Work Phone: Start: 02-05-2023 Plain x-ray of pelvis and lower extremity Dr. Carlo Diaz Work Phone: Start: 11-15-2022 Plain chest X-ray Dr. Carlo Diaz Work Phone: Start: 10-30-2022 Plain chest X-ray Dr. Carlo Diaz Work Phone: Start: 09-27-2022 Cardiovascular stress test using pharmacologic stress agent Dr. Carlo Diaz Work Phone: Start: 09-21-[address] Carlo Neal Work Phone: Start: 09-20-2022 Plain chest X-ray Dr. Carlo Diaz Work Phone: Start: 03-30-2022 Plain chest X-ray Start: 03-28-2022 Plain chest X-ray Start: 01-10-2022 SARS-CoV-2 & FLU Antigen (Rapid) Dr. Errol Diaz Work Phone: Start: 01-10-2022 Plain chest X-ray Dr. Carlo Diaz Work Phone: Start: 10-09-2021 Plain chest X-ray Dr. Carlo Diaz Work Phone: Start: 01-26-2021 History of placement of stent for coronary artery disease History of coronary artery stent placement Saba TILLMAN Comment on above: GLR-PUN-Hslm-SVG-LCx w/ 3.0 34 mm Resolu te Integrity Stent 01/12/2016; PCI-KATEY-Mid RCA w/ 3.0 x 34 mm and 3.0 x 30 mm Resolute Integrity Stent, POBA-Prox RPDA 01/10/2016 ARRE-QZF-SYEE unsuccessful 01/10/2016; PCI-SVG-D1 and PCI-LCx 11/05/2019; NJA-RQW-Rvdv LCx w/ 2.25 X 18 mm Orsiro Stent 01/26/21 Start: 06-23-2017 End: 06-23-2017 PLASTER FOREMAN Saba Milian PA-C Work Phone: Start: 06-23-2017 End: 06-23-2017 Follow Up Appt 6 months Saba Milian PA-C Work Phone: Start: 12-18-2016 End: 06-18-2017 *Hepatic Function Panel Linda Stevens Start: 12-18-2016 End: 06-11-2017 Ecg routine ecg w/least 12 lds w/i&r Lasha Win MD Start: 12-18-2016 End: 06-11-2017 Follow Up Appt 6 months Linda Stevens Start: 12-18-2016 End: 06-18-2017 Lipid 1996 panel - Serum or Plasma Lasha Win MD Start: 12-18-2016 End: 06-11-2017 MMM Lasha Win MD Start: 12-13-2016 Placement of stent in coronary artery Status post cardiac stent placement Mariama Harrison Start: 10-11-2007 History of coronary artery bypass grafting H/O coronary artery bypass surgery Dr. Carlo Diaz Work Phone: Comment on above: CABG x 6 - HEART to LAD, SVG to D1 and D2 , SVG to Ramus, SVG to OM1, SVG to RPDA 10/11/2007 Measurement of occul t blood in stool specimen using immunoassay Dr. Carlo Diaz Work Phone: Measurement of occul t blood in stool specimen using immunoassay Dr. Carlo Diaz Work Phone: SARS-CoV-2 & FLU Antigen (Rapid) Urine culture Dr. Carlo palomino Work Phone: Urine culture Dr. Carlo palomino Work Phone: Urine culture Dr. Carlo palomino Work Phone: Urine culture Dr. Carlo palomino Work Phone: Viral antigen assay Plan of Treatment Date Care Activity Detail Author Start: 01-27-2025 [facility] Start: 01-23-2025 [facility] Start: 01-23-2025 [facility] Start: 01-17-2025 [facility] Start: 01-17-2025 Plain chest X-ray Chest 1 View (Portable) [facility] Start: 01-17-2025 XR Chest Single view [facility] Start: 01-17-2025 [facility] Start: 01-17-2025 End: 01-17-2025 [facility] Start: 12-03-2024 End: 12-03-2024 [facility] Start: 12-03-2024 [facility] Start: 11-17-2024 Patient discharge [facility] Start: 11-15-2024 Following clinical pathway protocol [facility] Start: 11-15-2024 Incentive spirometry [facility] Start: 11-15-2024 Admission procedure [facility] Start: 11-15-2024 Ambulation without limitation [facility] Start: 11-15-2024 Assessment of risk of venous thromboembolism [facility] Start: 11-15-2024 Catheterization of vein [facility] Start: 11-15-2024 Insertion of catheter into peripheral vein [facility] Start: 11-15-2024 Measuring intake and output [facility] Start: 11-15-2024 Providing care according to standard [facility] Start: 11-15-2024 End: 11-15-2024 [facility] Start: 11-15-2024 Ventral hernioplasty Hernia, Ventral Repair w/ Mesh (Not Applicable) [facility] Start: 11-15-2024 End: 11-15-2024 Hospital admission, emergency, from emergency room, medical nature [facility] Start: 11-15-2024 Anes hrna rpr upr abd lmbr&ventral hernia&dehisc ANES HRNA RPR LMBR&VNT&/DEHS [facility] Start: 11-15-2024 RPR AA HRN 1ST 3-10 NCR/STRN RPR AA HRN 1ST 3-10 NCR/STRN [facility] Start: 11-15-2024 End: 11-16-2024 [facility] Start: 11-15-2024 [facility] Start: 11-07-2023 Patient discharge [facility] Start: 11-07-2023 Referral to occupational therapist [facility] Start: 11-07-2023 Referral to service [facility] Start: 11-06-2023 Care planning and problem solving actions [facility] Start: 11-06-2023 Notification of physician [facility] Start: 11-06-2023 Patient education [facility] Start: 11-06-2023 Provision of activity privileges [facility] Start: 11-06-2023 Pulse taking [facility] Start: 11-06-2023 Taking patient vital signs [facility] Start: 11-06-2023 Wound care [facility] Start: 11-06-2023 [facility] Start: 11-06-2023 Catheterization of vein [facility] Start: 11-06-2023 Medication not administered [facility] Start: 11-06-2023 [facility] Start: 11-06-2023 [facility] Start: 11-05-2023 Inhalation therapy procedure [facility] Start: 11-04-2023 Oxygen therapy [facility] Start: 11-04-2023 Care planning and problem solving actions [facility] Start: 11-04-2023 Following clinical pathway protocol [facility] Start: 11-04-2023 Ambulation without limitation [facility] Start: 11-04-2023 Assessment of risk of venous thromboembolism [facility] Start: 11-04-2023 Care regimes management [facility] Start: 11-04-2023 Insertion of catheter into peripheral vein [facility] Start: 11-04-2023 Measuring intake and output [facility] Start: 11-04-2023 Notification of physician [facility] Start: 11-04-2023 Providing care according to standard [facility] Start: 11-04-2023 Referral to promotions specialist [facility] Start: 11-04-2023 [facility] Start: 11-04-2023 Admission procedure [facility] Start: 02-08-2023 Troponin I measurement [facility] Start: 02-05-2023 Plain X-ray of shoulder Shoulder min 2 Views [facility] Start: 02-05-2023 XR Shoulder GE 2 Views [facility] Start: 02-05-2023 Plain x-ray of pelvis and lower extremity HIP, UNI W/ Pelvis 2-3 Views [facility] Start: 02-05-2023 XR Pelvis and Hip Views [facility] Start: 11-16-2022 [facility] Start: 11-15-2022 [facility] Start: 10-30-2022 [facility] Start: 10-30-2022 [facility] Start: 09-23-2022 Patient discharge [facility] Start: 09-20-2022 Application of intermittent pneumatic compression device [facility] Start: 09-20-2022 Catheterization of vein [facility] Start: 09-20-2022 Application of elastic bandage [facility] Start: 09-20-2022 Assessment of risk of venous thromboembolism [facility] Start: 09-20-2022 Care regimes management [facility] Start: 09-20-2022 Fall prevention [facility] Start: 09-20-2022 Incentive spirometry [facility] Start: 09-20-2022 Inhalation therapy procedure [facility] Start: 09-20-2022 Insertion of catheter into peripheral vein [facility] Start: 09-20-2022 Introduction of urinary catheter [facility] Start: 09-20-2022 Measuring intake and output [facility] Start: 09-20-2022 Providing care according to standard [facility] Start: 09-20-2022 Provision of activity privileges [facility] Start: 09-20-2022 Referral to gastroenterology service [facility] Start: 09-20-2022 Referral to service [facility] Start: 09-20-2022 Following clinical pathway protocol [facility] Start: 09-20-2022 Verification routine [facility] Work Phone: Start: 09-20-2022 End: 09-20-2022 [facility] Start: 09-20-2022 Admission procedure [facility] Start: 01-11-2023 Emergency department visit high/urgent severity EMERGENCY DEPT VISIT MOD MDM [facility] Start: 09-18-2022 [facility] Work Phone: Start: 03-30-2022 End: 03-30-2022 [facility] Work Phone: Start: 03-28-2022 [facility] Work Phone: Start: 12-23-2017 End: 12-23-2017 Appointment [facility] Work Phone: Start: 12-17-2017 End: 06-20-2017 *Hepatic Function Panel *Hepatic Function Panel [facility] Work Phone: Start: 12-17-2017 End: 06-20-2017 Lipid panel [AGGREGATE] *Lipid Profile CC PCP [facility] Work Phone: Start: 06-23-2017 End: 06-23-2017 *CBC with Differential *CBC with Differential [email or web address] Work Phone: Start: 06-23-2017 End: 06-23-2017 PLASTER FOREMAN PLASTER FOREMAN [facility] Work Phone: Start: 06-23-2017 End: 06-23-2017 Follow Up Appt 6 months Follow Up Appt 6 months [facility] Work Phone: Start: 06-23-2017 End: 06-23-2017 Follow Up Appt Other Follow Up Appt Other [facility] Work Phone: Start: 06-23-2017 End: 06-23-2017 Appointment Appointment [facility] Work Phone: Start: 12-18-2016 End: 06-18-2017 *Hepatic Function Panel *Hepatic Function Panel [facility] Work Phone: Start: 12-18-2016 End: 06-11-2017 Ecg routine ecg w/least 12 lds w/i&r EKG (In office) [facility] Work Phone: Start: 12-18-2016 End: 06-11-2017 Follow Up Appt 6 months Follow Up Appt 6 months [facility] Work Phone: Start: 12-18-2016 End: 06-18-2017 Lipid panel [AGGREGATE] *Lipid Profile CC PCP [facility] Work Phone: Start: 12-18-2016 End: 06-11-2017 MMM MMM [facility] Work Phone: Bacteria identified in Urine by Culture Urine Culture [facility] Bilirubin measuremen t, urine [facility] Hemoglobin [Presence ] in Urine [facility] Measurement of keton es in urine using dipstick [facility] Microscopic urinalysis [facility] NM Heart Views W str ess and W radionuclide IV [facility] Work Phone: Organism count, micr oscopic method [facility] Patient Education [facility] Work Phone: Patient referral [facility] Work Phone: pH of Urine [facility] Specific gravity of Urine [facility] Troponin T.cardiac [Mass/volume] in Serum or Plasma by High sensitivity method [facility] Troponin T.cardiac [Mass/volume] in Serum or Plasma by High sensitivity method [facility] Urine blood test [facility] Urine dipstick for glucose [facility] Urine dipstick for leukocyte esterase [facility] Urine dipstick for nitrite [facility] Urine dipstick for protein [facility] Urine examination [facility] Urine microscopy: epithelial cells [facility] Urobilinogen [Presen ce] in Urine [facility] Work Phone: White blood cell count [facility] Payers Date Payer Category Payer Self-pay [id number] 2022 Medicare [id number] 2013 Medicare [id number] 1945 Unknown [id number] 2.16.8 40.1.978400.3.579.2.627 1944 Unknown [id number] 2.16.8 40.1.411540.3.579.2.651 1944 Unknown [id number] 2.16.8 40.1.321202.3.579.2.651 1944 Unknown [id number] 2.16.8 40.1.055970.3.579.2.65 1944 Unknown [id number] 2.16.8 40.1.485002.3.579.2.65 1944 Unknown [id number] 2.16.8 40.1.487292.3.579.2.651 1944 Unknown [id number] 2.16.8 40.1.674982.3.579.2. 1944 Unknown [id number] 2.16.8 40.1.486229.3.579.2.651 1944 Unknown [id number] 2.16.8 40.1.832655.3.579.2.651 1944 Unknown [id number] 2.16.8 40.1.392206.3.579.2.651 1944 Unknown [id number] 2.16.8 40.1.918272.3.579.2.651 1944 Unknown [id number] 2.16.8 40.1.408822.3.579.2.651 1944 Unknown [id number] 2.16.8 40.1.306872.3.579.2.65 1944 Unknown [id number] 2.16.8 40.1.786372.3.579.2.651 1944 Unknown [id number] 2.16.8 40.1.052880.3.579.2.65 1944 Unknown [id number] 2.16.8 40.1.697467.3.579.2.651 1944 Unknown [id number] 2.16.8 40.1.957214.3.579.2.651 1944 Unknown [id number] 2.16.8 40.1.389649.3.579.2.651 1944 Unknown [id number] 2.16.8 40.1.686844.3.579.2.651 Medicare [id number] Unknown SELF PAY INSURANCE [id number] Unknown ANTHEM [id number] Unknown [id number] 2.16.8 40.1.083771.3.579.2.462 Unknown [id number] 2.16.8 40.1.270812.3.579.2.462 Unknown [id number] 2.16.8 40.1.755643.3.579.2.462 Unknown [id number] 2.16.8 40.1.773701.3.579.2.462 Unknown [id number] 2.16.8 40.1.297042.3.579.2.462 Unknown [id number] 2.16.8 40.1.461815.3.579.2.462 Unknown [id number] 2.16.8 40.1.784226.3.579.2.462 Unknown [id number] 2.16.8 40.1.823657.3.579.2.462 Unknown [id number] 2.16.8 40.1.382054.3.579.2.462 Unknown [id number] 2.16.8 40.1.028768.3.579.2.462 Unknown [id number] 2.16.8 40.1.428357.3.579.2.462 Unknown [id number] 2.16.8 40.1.871737.3.579.2.462 Unknown [id number] 2.16.8 40.1.008360.3.579.2.462 Unknown [id number] 2.16.8 40.1.135736.3.579.2.462 Unknown [id number] 2.16.8 40.1.542600.3.579.2.462 Unknown [id number] 2.16.8 40.1.120143.3.579.2.462 Unknown [id number] 2.16.8 40.1.650122.3.579.2.462 Unknown [id number] 2.16.8 40.1.522768.3.579.2.462 Social History Date Type Detail Facility Start: 01-10-2022 End: 11-04-2023 Tobacco smoking status NHIS Unknown if ever smoked [facility] Start: 10-09-2020 None [facility] Start: 10-09-2020 With Family [facility] Start: 01-26-2021 Non-smoker [facility] Start: 1945 Sex Assigned At Female [facility] Start: 11-15-2024 End: 01-27-2025 Tobacco smoking status NHIS Never smoked tobacco (finding) [facility] Start: 11-15-2024 End: 12-03-2024 Sex Female (finding) [facility] NEGATED: Highlighted row [facility] NEGATED: Highlighted row Not [facility] Goals Date Patient Goal Desired Activity /State Functional Status Date Assessment Result Facility 11-17-2024 Functional status Ambulates;Mervin r;Bathroom Privilege [facility] Work Phone: 11-07-2023 Functional status Chair [facility] Work Phone: 09-23-2022 Functional status Ambulates;Mervin r;Bathroom Privilege [facility] Work Phone: Mental Status Date Assessment Result Facility 01-23-2025 Cognitive function Level Of Cons ciousness Awake;Alert;Appropriate [facility] Work Phone: 01-17-2025 Cognitive function Level Of Cons ciousness Awake;Alert;Appropriate;Follow s Commands [facility] Work Phone: 12-03-2024 Cognitive function Level Of Cons ciousness Awake;Alert;Appropriate;Follow s Commands [facility] Work Phone: 11-17-2024 Cognitive function Appropriate;Cooperativ e [facility] Work Phone: 11-07-2023 Cognitive function Voice/Name [facility] Work Phone: 04-20-2023 Cognitive function Level Of Cons ciousness Awake;Alert;Appropriate [facility] Work Phone: 11-15-2022 Cognitive function Voice/Name [facility] Work Phone: 10-30-2022 Cognitive function Awake;Alert [facility] Work Phone: 09-23-2022 Cognitive function Voice/Name [facility] Work Phone: 09-20-2022 Cognitive function Voice/Name [facility] Work Phone: 09-18-2022 Cognitive function Level Of Cons ciousness Awake;Alert;Appropriate;Follow s Commands [facility] Work Phone: 03-28-2022 Cognitive function Level Of Cons ciousness Awake;Alert;Appropriate;Follow s Commands [facility] Work Phone: 10-09-2021 Cognitive function Voice/Name [facility] Work Phone: Clinical Notes 10-11-2007 to 01-23-2025 Note Date & Type Note Facility 01-23-2025 Discharge summary [facility] 01-23-2025 Discharge summary Note Date/Time January 23, 2025 4:48pm [facility] Medical Records Department [address] [place] [address] Emergency Department Summary 01/23/25 MR#: [id number] Acct: [id number] Name: ADELA WELLS Rep #:[id number] : 1945 79 From: Brian Gray DO PCP: Dr. Carlo Diaz MD Status:REG ER Location: ED HPI History of Present Illness Chief Complaint: Chest Pain Narrative Narrative: Patient is a 79-year-old female with past medical history of CAD with stents andbypass surgery, COPD, TIA, chronic kidney disease, hypertension, type 2 diabetes, hypothyroidism who presented to the emergency department the chief complaint of chest pain. Patient states that around 11 AM she developed chest pain she states that she was sleeping when this occurred. Patient states that she has not had a stress test in approximately 2 years since her last stent placed. Patient denies any blood thinner medications. Patient states that otherwise she has been feeling well and has no other complaints. She states that by the time she arrived here she has no pain and did not take any medicationsto relieve her symptoms. 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 Obesity Atherosclerosis of coronary artery bypass graft without angina pectoris Essential hypertension Type 2 diabetes mellitus without complication Vertigo GERD (gastroesophageal reflux disease) Asthma Hyperlipidemia Hypothyroidism Home Medications ?Medication ?Instructions ?Recorded ?Last Taken ?Type montelukast 10 mg tablet 10 mg PO DAILY PRN ASTHMA 11/13/24 History aspirin 81 mg tablet,delayed 81 mg PO DAILY HEART HEAL TH 11/19/17 01/22/25 History release cetirizine 10 mg tablet (Zyrtec) 10 mg PO DAILY PRN al katie 02/15/20 06/09/24 History allopurinol 100 mg tablet 100 mg PO DAILY GOUT 2 2 01/22/25 History ipratropium 20 mcg-albuterol 100 1 puff inhalation Q6H PRN BREATHING 09/20/22 11/13/24 History mcg/actuation mist for inhalation (Combivent Respimat) ferrous sulfate 325 mg (65 mg 325 mg PO DAILY SUPPLEME NT 10/04/22 01/22/25 History iron) tablet furosemide 40 mg tablet (Lasix) 40 mg PO DAILY diureti c 12/25/22 01/22/25 His tory cholecalciferol (vitamin D3) 25 25 mcg PO SUTUTHSA vit ross 06/05/23 01/22/25 History mcg (1,000 unit) tablet omeprazole 20 mg capsule,delayed 20 mg PO DAILY reflux 11/04/23 01/22/25 History release ezetimibe 10 mg tablet (Zetia) 10 mg PO DAILY 02/27/24 01/22/25 History prednisone 5 mg tablet 5 mg PO DAILY 02/27/2411/13 History Held on 01/17/25. Instructions: while on higher-dose prednisone albuterol sulfate 2.5 mg/3 mL 1.25 mg inhalation TID P RN 05/09/24 11/15/24 History (0.083 %) solution for nebulization shortness of breat h or wheezing ipratropium bromide 0.02 % 0.5 mg inhalation TID PRN 0 05/09/24 11/13/24 History solution for inhalation shortness of breath or wheez ing biotin 10,000 mcg capsule 10,000 mcg PO DAILY 06/10/24 01/22/25 History folic acid 1 mg tablet 1 mg PO DAILY 06/10/2401/22 History glipizide 2.5 mg tablet, extended 2.5 mg PO BID 01/22/25 History release 24 hr amlodipine 5 mg tablet 5 mg PO DAILY 08/25/2401/22 History spironolactone 25 mg tablet 25 mg PO DAILY HEART 08/2501/22/25 History levothyroxine 100 mcg tablet 100 mcg PO DAILY 11/15/24 01/22/25 History metoprolol tartrate 50 mg tablet 50 mg PO DAILY 01/22/25 History prednisone 20 mg tablet 40 mg (2 x 20 mg) PO DAILY 4 days 01/17/25 01/22/25 Rx #8 tabs sulfamethoxazole 800 1 tab PO DAILY 01/23/2501/06 History mg-trimethoprim 160 mg tablet Allergy/AdvReac Type Severity Reaction Status Date / Time Anesthetics - Amide Type - Allergy Other Verified 01/23/25 12:18 Select A (Anesthetics - Amide Type) acetaminophen (From Tylenol) AdvReac Severe Other Verified 01/23/25 12:18 pravastatin AdvReac Intermediate Myalgias Verified 01/23/25 12:18 after 15 years of taking cinnamon AdvReac Unknown Unknown Verified 01/23/25 12:18 Penicillins AdvReac Unknown Unknown Verified 01/23/25 12:18 ezetimibe (From Zetia) AdvReac myalgias Verified 01/23/25 12:18 leflunomide AdvReac Chest Verified 01/23/25 12:18 tightness Family History Mother , age 86, advanced age No problems noted. Father Prostate cancer Surgical History History of ventral hernia repair History of coronary artery stent placement (01/26/21) H/O coronary artery bypass surgery (10/11/07) Hx of bilateral cataract extraction History of hysterectomy Hx of appendectomy History of cholecystectomy Social History household members: family housing: house Smoking Status: Never smoker alcohol intake: never substance use type: does not use caffeine: Yes Type: carbonated beverages what type of physical activity do you participate in: none seatbelt use: always do you feel safe at home: Yes ROS ROS ED ROS Narrative Constitutional: Denies fevers, chills, headaches, lightness, dizziness, Eyes: Denies changes double vision blurry vision Cardiovascular: Claims chest pain as noted above but has since resolved denies palpitations Respiratory: Denies nausea vomiting diarrhea Abdomen: Denies abdominal pain nausea vomit diarrhea : Denies urinary symptoms Neurological: Denies numbness, wheeze, tingling Musculoskeletal: Denies back pain Skin: Denies any rashes or lesions EXAM Physical Exam Narrative Exam Narrative: General: Patient lying in bed rest comfortably did not appear to be in acute distress Head: Atraumatic, normocephalic Eyes: PERRL bilaterally, EOMI bilaterally, no conjunctival injection noted Neck: Soft, supple, trachea midline Cardiovascular: Regular rate and rhythm no murmurs gallops rubs noted Respiratory: Clear to auscultation bilaterally no rales rhonchi or wheezes noted Abdomen: Soft, nondistended, nontender to palpation Extremities: Radial pulses +2/4 in the bilateral extremities, no pedal edema exam Neurological: Patient follow commands that she was at [facility] year is 2024 Skin: Warm, dry, intact no rashes lesions noted Const Vital Signs: 01/23/25 12:18 01/23/25 13:17 01/23/25 13:23 Temperature 97.5 F L Temperature Source Temporal Pulse Rate 85 81 Respiratory Rate 18 14 Blood Pressure 161/68 H 138/52 H Blood Pressure Mean 99 80 Pulse Ox 100 98 Oxygen Delivery Method Room Air Room Air Room Air 01/23/25 13:30 01/23/25 14:00 01/23/25 15:00 Temperature Temperature Source Pulse Rate 85 75 73 Respiratory Rate 24 H 16 13 Blood Pressure 148/57 H 153/54 H 151/47 H Blood Pressure Mean 83 84 79 Pulse Ox 98 98 96 Oxygen Delivery Method MDM MDM MDM Narrative Medical decision making narrative: Patient is a 79-year-old female who presented to the emergency department chief complaint of chest pain. Patient will have a workup performed here on the differential diagnosis includes but not limited to ACS, pneumonia, pneumothorax,musculoskeletal strain. Once workup is obtained reviewed she will be reevaluated. Patient CBC was reviewed and showed no evidence leukocytosis white blood count normal at 6.1, hemoglobin 10.7, platelet count was noted be 316. Patient sodiumis 131, potassium is mildly elevated 5.8. Patient be given insulin dextrose as well as she will be given IV Lasix as her proBNP is elevated here in the emergency department and she did not take her dose of oral Lasix this morning. Patient's creatinine is elevated 2.73 however she has underlying chronic kidney disease. Patient's troponin was 45 with delta troponin of 37. Patient's EKG was reviewed and showed sinus rhythm with a rate of 87 bpm. Patient's chest x-ray reviewed by myself by radiology showed no acute cardiopulmonary processes. Patient ambulated well in the emergency department had no hypoxia and felt at her baseline. I called and discussed case with on-call promotions specialist Dr. Win who states that the patient can follow-up in the office with them in the outpatient setting. I discussed this plan with the patient she is agreeable to plan she like to go home at this point time all question concerns answered she was discharged home in stable condition. Lab Data Labs: Laboratory Results - last 24 hr 01/23/25 01/23/25 12:40 14:37 WBC 6.1 RBC 3.47 L Hgb 10.7 L Hct 32.8 L MCV 94.5 MCH 30.8 MCHC 32.6 RDW Std Deviation 48.2 H RDW Coeff of Kamar 14.1 Plt Count 316 MPV 10.3 Immature Gran % (Auto) 0.700 Neut % (Auto) 83.4 H Lymph % (Auto) 12.8 L Burnett % (Auto) 2.8 Eos % (Auto) 0.0 Baso % (Auto) 0.3 Absolute Neuts (auto) 5.1 Absolute Lymphs (auto) 0.78 L Nucleated RBC % 0 Sodium 131 L Potassium 5.8 H Chloride 99 Carbon Dioxide 18.5 L Anion Gap 14 BUN 53 H Creatinine 2.73 H Estim Creat Clear Calc 14.56 L Est GFR (MDRD) Non-Af 17 L BUN/Creatinine Ratio 19.4 Glucose 247 H Calcium 9.5 Troponin T High Sens 45 H D Troponin T Hi Sens 2 Hr 37 H NT pro BNP II 7161 H Radiography Diagnostic Testing: Clinical Impression(s) from Imaging Studies Chest X-Ray 01/23/25 13:05 IMPRESSION: No acute cardiopulmonary process. [facility] T[facility] Chief Complaint: Chest Pain ED Provider: Brian Gray Dx/Rx/DC Orders Clinical Impression: Chest pain Prescriptions: No Action aspirin 81 mg tablet,delayed release (DR/EC) 81 mg PO DAILY cetirizine [Zyrtec] 10 mg tablet 10 mg PO DAILY PRN (Reason: allergies) allopurinol 100 mg tablet 100 mg PO DAILY furosemide [Lasix] 40 mg tablet 40 mg PO DAILY cholecalciferol (vitamin D3) 25 mcg (1,000 unit) tablet 25 mcg PO SUTUTHSA spironolactone 25 mg tablet 25 mg PO DAILY ferrous sulfate 325 mg (65 mg iron) tablet 325 mg PO DAILY prednisone 5 mg tablet 5 mg PO DAILY ezetimibe [Zetia] 10 mg tablet 10 mg PO DAILY amlodipine 5 mg tablet 5 mg PO DAILY Patient Comments: PT HASNT HAD TO TAKE FOR A COUPLE WEEKS DUE TO LOWER BP Rx Instructions: Hold for SBP less than 130 mmHg montelukast 10 MG tablet 10 mg PO DAILY PRN (Reason: ASTHMA) Combivent Respimat 20-100 mcg/actuation mist 1 puff INHALATION Q6H PRN (Reason: BREATHING) Patient Comments: PT DOES HAVE THIS MEDICATION WITH HER. omeprazole 20 mg capsule,delayed release(DR/EC) 20 mg PO DAILY albuterol sulfate 2.5 mg /3 mL (0.083 %) solution for nebulization 1.25 mg inhalation TID PRN (Reason: shortness of breath or wheezing) ipratropium bromide 0.02 % solution 0.5 mg inhalation TID PRN (Reason: shortness of breath or wheezing) glipizide 2.5 mg tablet extended release 24hr 2.5 mg PO BID folic acid 1 mg tablet 1 mg PO DAILY biotin 10,000 mcg capsule 10,000 mcg PO DAILY levothyroxine 100 mcg tablet 100 mcg PO DAILY metoprolol tartrate 50 mg tablet 50 mg PO DAILY prednisone 20 mg tablet 40 mg PO DAILY 4 Days Qty: 8 0RF Patient Comments: PT DOESNT KNOW HOW MANY LEFT, STARTED ON 01/19/25 sulfamethoxazole-trimethoprim 800-160 mg tablet 1 tab PO DAILY Patient Comments: PT HAS 2-3 DOSES LEFT Primary Care Provider: Carlo Diaz Referrals: Carlo Diaz MD [Primary Care Provider] - Activity Restrictions/Additional Instructions: Follow-up with your promotions specialist in outpatient setting. Return with worsening symptoms or concerns. Ensure that you are taking your medications as prescribedincluding your oral Lasix/furosemide to ensure that you do not have heart failure exacerbation. Print Language: Eritrean Disposition Disposition: Home, Self Care What to do if you have Problems For any increased pain, shortness of breath, bleeding, nausea or vomiting, chestpain, or any unexpected problems, contact your Primary Care Provider. Call [facility] ([phone]) or report to the closest Emergency Room. Call 911 if necessary. 01/23/25 1648 <Electronically signed by Brian Gray DO> Cosigner Signature (if applicable): CC: Dr. Carlo Diaz MD ~ Signed [facility] Work Phone: [phone] 834-907005-18-2025 Radiology Diagnostic study note [facility] Imaging Services [address] [place] [address] Chest PA and Lateral MR#: [id number] Acct: [id number] Name: ADELA WELLS Rep #: [id number] : 1945 F 79 From: Alicja Tyler MD PCP: Dr. Carlo Diaz MD Status: REG ER Study:Chest PA and Lateral Date of Exam: 01/23/25 Exam# [id number] Ordering Dr: Darien Gray DO EXAM: XR Chest, 2 Views CLINICAL INDICATION: CHEST PAIN TECHNIQUE: Frontal and lateral views of the chest. COMPARISON: XR Chest dated 01/17/2025 FINDINGS: LUNGS AND PLEURAL SPACES: Unremarkable. No consolidation. No pneumothorax. HEART: Unremarkable. No cardiomegaly. MEDIASTINUM: Unremarkable. Normal mediastinal contour. BONES/JOINTS: Unremarkable. No acute fracture. RAD/Chest PA and Lateral IMPRESSION: No acute cardiopulmonary process. Reading Location: [facility] CC: Dr. Carlo Diaz MD; Dr. Brian Gray DO ~ [employer] Central Office: Signed [facility]05-12-2025 Discharge summary [facility] Medical Records Department [address] [place] [address] Emergency Department Summary 01/17/25 MR#: [id number] Acct: [id number] Name: ADELA WELLS Rep #:[id number] : 1945 79 From: Diogo Lee MD PCP: Dr. Carlo Diaz MD Status:REG ER Location: ED HPI History of Present Illness Chief Complaint: Chest Pain Informant: patient Narrative Narrative: 79-year-old female with a history of significant CAD states she woke up at 3 AM which was about 15 hours ago with substernal chest pain that she describes as chest pain. It was nonpleuritic, she took a few aspirin, and then went away. Lasted about 20 minutes total and has not come back since. States with all of the multiple stents she has had placed and CABG, she does not recall ever havingchest pain, so this was different but she is concerned this may have been her heart. She states her asthma/COPD has felt worse all day, she usually does nebulizer treatments 4 times a day but today she has been doing them about double that and she feels like she is ready for another 1 because it has been about 3 hours since she has had 1. She denies any increased coughing. She is allergic to everything outside that grows in the spring, but states she has not been out a lot lately and she was doingfine yesterday. 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 Obesity Atherosclerosis of coronary artery bypass graft without angina pectoris Essential hypertension Type 2 diabetes mellitus without complication Vertigo GERD (gastroesophageal reflux disease) Asthma Hyperlipidemia Hypothyroidism Home Medications ?Medication ?Instructions ?Recorded ?Last Taken ?Type montelukast 10 mg tablet 10 mg PO DAILY PRN ASTHMA 11/13/24 History aspirin 81 mg tablet,delayed 81 mg PO DAILY HEART HEAL TH 11/19/17 11/13/24 History release cetirizine 10 mg tablet (Zyrtec) 10 mg PO DAILY PRN al lergies 02/15/20 06/09/24 History allopurinol 100 mg tablet 100 mg PO DAILY GOUT 2 11/13/24 History ipratropium 20 mcg-albuterol 100 1 puff inhalation Q6H BREATHING 09/20/22 11/13/24 History mcg/actuation mist for inhalation (Combivent Respimat) ferrous sulfate 325 mg (65 mg 325 mg PO DAILY SUPPLEME NT 10/04/22 11/13/24 History iron) tablet furosemide 40 mg tablet (Lasix) 40 mg PO DAILY diureti c 12/25/22 11/13/24 History cholecalciferol (vitamin D3) 25 25 mcg PO SUTUTHSA vit ross 06/05/23 11/13/24 History mcg (1,000 unit) tablet omeprazole 20 mg capsule,delayed 20 mg PO DAILY reflux 11/04/23 11/13/24 History release ezetimibe 10 mg tablet (Zetia) 10 mg PO DAILY 02/27/24 11/13/24 History prednisone 5 mg tablet 5 mg PO DAILY 02/27/2411/13 History Held on 01/17/25. Instructions: while on higher-dose prednisone albuterol sulfate 2.5 mg/3 mL 1.25 mg inhalation TID P RN 05/09/24 11/15/24 History (0.083 %) solution for nebulization shortness of breat h or wheezing ipratropium bromide 0.02 % 0.5 mg inhalation TID PRN 0 05/09/24 11/13/24 History solution for inhalation shortness of breath or wheez ing biotin 10,000 mcg capsule 10,000 mcg PO DAILY 06/10/24 11/13/24 History folic acid 1 mg tablet 1 mg PO DAILY 06/10/2411/13 History glipizide 2.5 mg tablet, extended 2.5 mg PO BID 11/13/24 History release 24 hr amlodipine 5 mg tablet 5 mg PO DAILY 08/25/2411/13 History spironolactone 25 mg tablet 25 mg PO QDAY HEART 11/13/24 History levothyroxine 100 mcg tablet 100 mcg PO DAILY 11/15/24 11/13/24 History metoprolol tartrate 50 mg tablet 50 mg PO DAILY 11/13/24 History oxycodone 5 mg tablet 5 mg PO Q6H PRN pain 3 days #9 tabs 11/16/24 Unknown Rx cephalexin 500 mg capsule 500 mg PO Q6 #12 CAPSULES Unknown Rx prednisone 20 mg tablet 40 mg (2 x 20 mg) PO DAILY 4 days 01/17/25 Unknown Rx #8 tabs Allergy/AdvReac Type Severity Reaction Status Date / Time Anesthetics - Amide Type - Allergy Other Verified 01/17/25 16:37 Select A (Anesthetics - Amide Type) acetaminophen (From Tylenol) AdvReac Severe Other Verified 01/17/25 16:37 pravastatin AdvReac Intermediate Myalgias Verified 01/17/25 16:37 after 15 years of taking cinnamon AdvReac Unknown Unknown Verified 01/17/25 16:37 Penicillins AdvReac Unknown Unknown Verified 01/17/25 16:37 ezetimibe (From Zetia) AdvReac myalgias Verified 01/17/25 16:37 leflunomide AdvReac Chest Verified 01/17/25 16:37 tightness Family History Mother , age 86, advanced age No problems noted. Father Prostate cancer Surgical History History of ventral hernia repair History of coronary artery stent placement (01/26/21) H/O coronary artery bypass surgery (10/11/07) Hx of bilateral cataract extraction History of hysterectomy Hx of appendectomy History of cholecystectomy Social History household members: family housing: house Smoking Status: Never smoker alcohol intake: never substance use type: does not use caffeine: Yes Type: carbonated beverages what type of physical activity do you participate in: none seatbelt use: always do you feel safe at home: Yes ROS ROS ED Constitutional Constitutional ED: Denies chills or fever(s) Eyes Eyes: Denies change in vision or diplopia ENT ENT ED: Denies rhinorrhea or sore throat Cardiovascular Cardiovascular: Reports chest pain; Denies palpitations Respiratory/Chest Respiratory/Chest: Reports chest tightness and dyspnea; Denies cough or sputum Gastrointestinal Gastrointestinal: Denies abdominal pain, diarrhea, nausea or vomiting Genitourinary Genitourinary ED: Denies dysuria or hematuria Musculoskeletal Musculoskeletal: Denies back pain or neck pain Integumentary Denies abscess or rash Neurologic Neurologic: Denies headache(s), paresthesias or weakness Psychiatric Psychiatric: Denies suicidal thoughts EXAM Physical Exam Const Vital Signs: 01/17/25 16:37 01/17/25 18:33 01/17/25 18:33 Temperature 98 F Temperature Source Oral Pulse Rate 67 65 Respiratory Rate 19 H 15 Respiratory Effort Respiratory Pattern Blood Pressure 159/73 H Blood Pressure Mean 101 Pulse Ox 100 100 100 Oxygen Delivery Method Room Air Room Air Room Air 01/17/25 18:34 01/17/25 18:38 01/17/25 19:00 Temperature Temperature Source Pulse Rate 68 62 Respiratory Rate 16 12 Respiratory Effort Short of Breath Respiratory Pattern Normal Blood Pressure 140/61 H Blood Pressure Mean 87 Pulse Ox 100 Oxygen Delivery Method Room Air 01/17/25 19:54 Temperature Temperature Source Pulse Rate 68 Respiratory Rate 16 Respiratory Effort Respiratory Pattern Blood Pressure 136/50 H Blood Pressure Mean 78 Pulse Ox 97 Oxygen Delivery Method Room Air Positive well nourished and well developed General Appearance ED: well developed and NAD HEENT Reports moist mucous membranes normocephalic and atraumatic Eyes PERRL and EOMs intact bilaterally Neck full ROM and supple Resp normal respiratory effort and clear to auscultation bilaterally Resp Narrative: Conversing in full sentences. Diffusely diminished but otherwise fairly clear. Cardio regular rate, regular rhythm and no murmurs GI non-tender and non-distended Auscultation: normoactive bowel sounds Palpation: soft Back/Spine no CVA tenderness General Back: other FROM Extremity normal to inspection General Extremety ED: Negative for edema, pulses abnormal or tenderness General Extremity: Negative for edema or pulses abnormal Neuro oriented x3, CN's II-XII intact bilaterally and no sensory deficits noted Sensorium / Orientation: awake and alert Motor Exam: strength 5/5 throughout Skin no rashes or lesions noted and no wounds Heart Score History: Slightly/Non-Suspicious ECG: Nonspecific Repolarization (but unchanged c/w prior) Age: >/= 65 years Risk Factors: >/= 3 Risk Factors or History of CAD Score: 5 MDM MDM MDM Narrative Medical decision making narrative: Patient currently pain-free. She has some lateral T wave inversions, these are unchanged compared with her prior EKG, so this looks to be baseline. She was given a nebulizer treatment at her request,she felt better and did not require any more. She declined steroids right now. Chest x-ray 1 view on my interpretation negative for pneumonia. Her initial troponin came back at 56, she has chronic kidney disease and I suspect this is probably related based on her second troponin at 45. Her kidney function is stable. This is not indicative of acute coronary syndrome or an NSTEMI. Patient reassured, she was offered a prescription for prednisone which she will take, short burst, but she does not want a dose right now. Advised to follow-up or return if worse. She is comfortable with that plan. Lab Data Attestation: I reviewed the patient's lab results. Labs: Laboratory Results - last 24 hr 01/17/25 01/17/25 18:17 20:00 WBC 10.8 RBC 3.46 L Hgb 10.8 L Hct 33.8 L MCV 97.7 MCH 31.2 MCHC 32.0 RDW Std Deviation 50.7 H RDW Coeff of Kamar 14.2 Plt Count 303 MPV 10.4 Immature Gran % (Auto) 0.400 Neut % (Auto) 53.9 Lymph % (Auto) 36.0 Burnett % (Auto) 7.0 Eos % (Auto) 1.9 Baso % (Auto) 0.8 Absolute Neuts (auto) 5.8 Absolute Lymphs (auto) 3.87 Nucleated RBC % 0 Sodium 134 Potassium 4.6 Chloride 101 Carbon Dioxide 19.3 L Anion Gap 13 BUN 44 H Creatinine 2.34 H Estim Creat Clear Calc 16.89 L Est GFR (MDRD) Non-Af 21 L BUN/Creatinine Ratio 18.7 Glucose 108 H Calcium 9.0 Troponin T High Sens 56 H* D Troponin T Hi Sens 2 Hr 45 H Rhythm Strip Rhythm Strip: Sinus Rhythm Rate: 70 Ectopy: None EKG Initial EKG: Attestation: I personally reviewed and interpreted this EKG as follows: Interpretation: Sinus Rhythm, No Acute Injury Pattern and Non-Specific ST Changes (lateral I, aVL) Prior EKG tracings: available for review Prior: Unchanged Discharge Plan Triage Chief Complaint: Chest Pain ED Provider: Diogo Lee Dx/Rx/DC Orders Clinical Impression: Chest pain, Acute asthma exacerbation Instructions: ED Chest Pain, Uncertain Cause Prescriptions: New prednisone 20 mg tablet 40 mg PO DAILY 4 Days Qty: 8 0RF Continued aspirin 81 mg tablet,delayed release (DR/EC) 81 mg PO DAILY cetirizine [Zyrtec] 10 mg tablet 10 mg PO DAILY PRN (Reason: allergies) allopurinol 100 mg tablet 100 mg PO DAILY furosemide [Lasix] 40 mg tablet 40 mg PO DAILY cholecalciferol (vitamin D3) 25 mcg (1,000 unit) tablet 25 mcg PO SUTUTHSA spironolactone 25 mg tablet 25 mg PO QDAY ferrous sulfate 325 mg (65 mg iron) tablet 325 mg PO DAILY ezetimibe [Zetia] 10 mg tablet 10 mg PO DAILY amlodipine 5 mg tablet 5 mg PO DAILY Rx Instructions: Hold for SBP less than 130 mmHg montelukast 10 MG tablet 10 mg PO DAILY PRN (Reason: ASTHMA) Combivent Respimat 20-100 mcg/actuation mist 1 puff INHALATION Q6H Patient Comments: PT DOES HAVE THIS MEDICATION WITH HER. omeprazole 20 mg capsule,delayed release(DR/EC) 20 mg PO DAILY albuterol sulfate 2.5 mg /3 mL (0.083 %) solution for nebulization 1.25 mg inhalation TID PRN (Reason: shortness of breath or wheezing) ipratropium bromide 0.02 % solution 0.5 mg inhalation TID PRN (Reason: shortness of breath or wheezing) glipizide 2.5 mg tablet extended release 24hr 2.5 mg PO BID folic acid 1 mg tablet 1 mg PO DAILY biotin 10,000 mcg capsule 10,000 mcg PO DAILY levothyroxine 100 mcg tablet 100 mcg PO DAILY metoprolol tartrate 50 mg tablet 50 mg PO DAILY oxycodone 5 mg Tablet 5 mg PO Q6H PRN (Reason: pain) 3 Days Qty: 9 0RF cephalexin 500 mg capsule 500 mg PO Q6 Qty: 12 0RF Held prednisone 5 mg tablet 5 mg PO DAILY Hold Instructions: while on higher-dose prednisone Primary Care Provider: Carlo Diaz Referrals: Carlo Diaz MD [Primary Care Provider] - 3-5 Days if not improving Print Language: Eritrean Disposition Disposition: Home, Self Care What to do if you have Problems For any increased pain, shortness of breath, bleeding, nausea or vomiting, chestpain, or any unexpected problems, contact your Primary Care Provider. Call [facility] ([phone]) or report tothe closest Emergency Room. Call 911 if necessary. 01/17/252056 Cosigner Signature (if applicable): CC: Dr. Carlo Diaz MD ~ Signed [facility]05-12-2025 Discharge summary Author Diogo Lee [facility] Note Date/Time January 17, 2025 8:57p m [facility] Medical Records Department [address] [place] [address] Emergency Department Summary 01/17/25 MR#: [id number] Acct: [id number] Name: ADELA WELLS Rep #:[id number] : 1945 79 From: Diogo Lee MD PCP: Dr. Carlo Diaz MD Status:REG ER Location: ED HPI History of Present Illness Chief Complaint: Chest Pain Informant: patient Narrative Narrative: 79-year-old female with a history of significant CAD states she woke up at 3 AM which was about 15 hours ago with substernal chest pain that she describes as chest pain. It was nonpleuritic, she took a few aspirin, and then went away. Lasted about 20 minutes total and has not come back since. States with all of the multiple stents she has had placed and CABG, she does not recall ever havingchest pain, so this was different but she is concerned this may have been her heart. She states her asthma/COPD has felt worse all day, she usually does nebulizer treatments 4 times a day but today she has been doing them about double that and she feels like she is ready for another 1 because it has been about 3 hours since she has had 1. She denies any increased coughing. She is allergic to everything outside that grows in the spring, but states she has not been out a lot lately and she was doing fine yesterday. 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 Obesity Atherosclerosis of coronary artery bypass graft without angina pectoris Essential hypertension Type 2 diabetes mellitus without complication Vertigo GERD (gastroesophageal reflux disease) Asthma Hyperlipidemia Hypothyroidism Home Medications ?Medication ?Instructions ?Recorded ?Last Taken ?Type montelukast 10 mg tablet 10 mg PO DAILY PRN ASTHMA 11/13/24 History aspirin 81 mg tablet,delayed 81 mg PO DAILY HEART HEAL TH 11/19/17 11/13/24 History release cetirizine 10 mg tablet (Zyrtec) 10 mg PO DAILY PRN al lergies 02/15/20 06/09/24 History allopurinol 100 mg tablet 100 mg PO DAILY GOUT 2 11/13/24 History ipratropium 20 mcg-albuterol 100 1 puff inhalation Q6H BREATHING 09/20/22 11/13/24 History mcg/actuation mist for inhalation (Combivent Respimat) ferrous sulfate 325 mg (65 mg 325 mg PO DAILY SUPPLEME NT 10/04/22 11/13/24 History iron) tablet furosemide 40 mg tablet (Lasix) 40 mg PO DAILY diureti c 12/25/22 11/13/24 History cholecalciferol (vitamin D3) 25 25 mcg PO SUTUTHSA vit ross 06/05/23 11/13/24 History mcg (1,000 unit) tablet omeprazole 20 mg capsule,delayed 20 mg PO DAILY reflux 11/04/23 11/13/24 History release ezetimibe 10 mg tablet (Zetia) 10 mg PO DAILY 02/27/24 11/13/24 History prednisone 5 mg tablet 5 mg PO DAILY 02/27/2411/13 History Held on 01/17/25. Instructions: while on higher-dose prednisone albuterol sulfate 2.5 mg/3 mL 1.25 mg inhalation TID P RN 05/09/24 11/15/24 History (0.083 %) solution for nebulization shortness of breat h or wheezing ipratropium bromide 0.02 % 0.5 mg inhalation TID PRN 0 05/09/24 11/13/24 History solution for inhalation shortness of breath or wheez ing biotin 10,000 mcg capsule 10,000 mcg PO DAILY 06/10/24 11/13/24 History folic acid 1 mg tablet 1 mg PO DAILY 06/10/2411/13 History glipizide 2.5 mg tablet, extended 2.5 mg PO BID 11/13/24 History release 24 hr amlodipine 5 mg tablet 5 mg PO DAILY 08/25/2411/13 History spironolactone 25 mg tablet 25 mg PO QDAY HEART 11/13/24 History levothyroxine 100 mcg tablet 100 mcg PO DAILY 11/15/24 11/13/24 History metoprolol tartrate 50 mg tablet 50 mg PO DAILY 11/13/24 History oxycodone 5 mg tablet 5 mg PO Q6H PRN pain 3 days #9 tabs 11/16/24 Unknown Rx cephalexin 500 mg capsule 500 mg PO Q6 #12 CAPSULES Unknown Rx prednisone 20 mg tablet 40 mg (2 x 20 mg) PO DAILY 4 days 01/17/25 Unknown Rx #8 tabs Allergy/AdvReac Type Severity Reaction Status Date / Time Anesthetics - Amide Type - Allergy Other Verified 01/17/25 16:37 Select A (Anesthetics - Amide Type) acetaminophen (From Tylenol) AdvReac Severe Other Verified 01/17/25 16:37 pravastatin AdvReac Intermediate Myalgias Verified 01/17/25 16:37 after 15 years of taking cinnamon AdvReac Unknown Unknown Verified 01/17/25 16:37 Penicillins AdvReac Unknown Unknown Verified 01/17/25 16:37 ezetimibe (From Zetia) AdvReac myalgias Verified 01/17/25 16:37 leflunomide AdvReac Chest Verified 01/17/25 16:37 tightness Family History Mother , age 86, advanced age No problems noted. Father Prostate cancer Surgical History History of ventral hernia repair History of coronary artery stent placement (01/26/21) H/O coronary artery bypass surgery (10/11/07) Hx of bilateral cataract extraction History of hysterectomy Hx of appendectomy History of cholecystectomy Social History household members: family housing: house Smoking Status: Never smoker alcohol intake: never substance use type: does not use caffeine: Yes Type: carbonated beverages what type of physical activity do you participate in: none seatbelt use: always do you feel safe at home: Yes ROS ROS ED Constitutional Constitutional ED: Denies chills or fever(s) Eyes Eyes: Denies change in vision or diplopia ENT ENT ED: Denies rhinorrhea or sore throat Cardiovascular Cardiovascular: Reports chest pain; Denies palpitations Respiratory/Chest Respiratory/Chest: Reports chest tightness and dyspnea; Denies cough or sputum Gastrointestinal Gastrointestinal: Denies abdominal pain, diarrhea, nausea or vomiting Genitourinary Genitourinary ED: Denies dysuria or hematuria Musculoskeletal Musculoskeletal: Denies back pain or neck pain Integumentary Denies abscess or rash Neurologic Neurologic: Denies headache(s), paresthesias or weakness Psychiatric Psychiatric: Denies suicidal thoughts EXAM Physical Exam Const Vital Signs: 01/17/25 16:37 01/17/25 18:33 01/17/25 18:33 Temperature 98 F Temperature Source Oral Pulse Rate 67 65 Respiratory Rate 19 H 15 Respiratory Effort Respiratory Pattern Blood Pressure 159/73 H Blood Pressure Mean 101 Pulse Ox 100 100 100 Oxygen Delivery Method Room Air Room Air Room Air 01/17/25 18:34 01/17/25 18:38 01/17/25 19:00 Temperature Temperature Source Pulse Rate 68 62 Respiratory Rate 16 12 Respiratory Effort Short of Breath Respiratory Pattern Normal Blood Pressure 140/61 H Blood Pressure Mean 87 Pulse Ox 100 Oxygen Delivery Method Room Air 01/17/25 19:54 Temperature Temperature Source Pulse Rate 68 Respiratory Rate 16 Respiratory Effort Respiratory Pattern Blood Pressure 136/50 H Blood Pressure Mean 78 Pulse Ox 97 Oxygen Delivery Method Room Air Positive well nourished and well developed General Appearance ED: well developed and NAD HEENT Reports moist mucous membranes normocephalic and atraumatic Eyes PERRL and EOMs intact bilaterally Neck full ROM and supple Resp normal respiratory effort and clear to auscultation bilaterally Resp Narrative: Conversing in full sentences. Diffusely diminished but otherwise fairly clear. Cardio regular rate, regular rhythm and no murmurs GI non-tender and non-distended Auscultation: normoactive bowel sounds Palpation: soft Back/Spine no CVA tenderness General Back: other FROM Extremity normal to inspection General Extremety ED: Negative for edema, pulses abnormal or tenderness General Extremity: Negative for edema or pulses abnormal Neuro oriented x3, CN's II-XII intact bilaterally and no sensory deficits noted Sensorium / Orientation: awake and alert Motor Exam: strength 5/5 throughout Skin no rashes or lesions noted and no wounds Heart Score History: Slightly/Non-Suspicious ECG: Nonspecific Repolarization (but unchanged c/w prior) Age: >/= 65 years Risk Factors: >/= 3 Risk Factors or History of CAD Score: 5 MDM MDM MDM Narrative Medical decision making narrative: Patient currently pain-free. She has some lateral T wave inversions, these are unchanged compared with her prior EKG, so this looks to be baseline. She was given a nebulizer treatment at her request, she felt better and did not require any more. She declined steroids right now. Chest x-ray 1 view on my interpretation negative for pneumonia. Her initial troponin came back at 56, she has chronic kidney disease and I suspect this is probably related based on her second troponin at 45. Her kidney function is stable. This is not indicative of acute coronary syndrome or an NSTEMI. Patient reassured, she was offered a prescription for prednisone which she will take, short burst, but she does not want a dose right now. Advised to follow-up or return if worse. She is comfortable with that plan. Lab Data Attestation: I reviewed the patient's lab results. Labs: Laboratory Results - last 24 hr 01/17/25 01/17/25 18:17 20:00 WBC 10.8 RBC 3.46 L Hgb 10.8 L Hct 33.8 L MCV 97.7 MCH 31.2 MCHC 32.0 RDW Std Deviation 50.7 H RDW Coeff of Kamar 14.2 Plt Count 303 MPV 10.4 Immature Gran % (Auto) 0.400 Neut % (Auto) 53.9 Lymph % (Auto) 36.0 Burnett % (Auto) 7.0 Eos % (Auto) 1.9 Baso % (Auto) 0.8 Absolute Neuts (auto) 5.8 Absolute Lymphs (auto) 3.87 Nucleated RBC % 0 Sodium 134 Potassium 4.6 Chloride 101 Carbon Dioxide 19.3 L Anion Gap 13 BUN 44 H Creatinine 2.34 H Estim Creat Clear Calc 16.89 L Est GFR (MDRD) Non-Af 21 L BUN/Creatinine Ratio 18.7 Glucose 108 H Calcium 9.0 Troponin T High Sens 56 H* D Troponin T Hi Sens 2 Hr 45 H Rhythm Strip Rhythm Strip: Sinus Rhythm Rate: 70 Ectopy: None EKG Initial EKG: Attestation: I personally reviewed and interpreted this EKG as follows: Interpretation: Sinus Rhythm, No Acute Injury Pattern and Non-Specific ST Changes (lateral I, aVL) Prior EKG tracings: available for review Prior: Unchanged Discharge Plan Triage Chief Complaint: Chest Pain ED Provider: Diogo Lee Dx/Rx/DC Orders Clinical Impression: Chest pain, Acute asthma exacerbation Instructions: ED Chest Pain, Uncertain Cause Prescriptions: New prednisone 20 mg tablet 40 mg PO DAILY 4 Days Qty: 8 0RF Continued aspirin 81 mg tablet,delayed release (DR/EC) 81 mg PO DAILY cetirizine [Zyrtec] 10 mg tablet 10 mg PO DAILY PRN (Reason: allergies) allopurinol 100 mg tablet 100 mg PO DAILY furosemide [Lasix] 40 mg tablet 40 mg PO DAILY cholecalciferol (vitamin D3) 25 mcg (1,000 unit) tablet 25 mcg PO SUTUTHSA spironolactone 25 mg tablet 25 mg PO QDAY ferrous sulfate 325 mg (65 mg iron) tablet 325 mg PO DAILY ezetimibe [Zetia] 10 mg tablet 10 mg PO DAILY amlodipine 5 mg tablet 5 mg PO DAILY Rx Instructions: Hold for SBP less than 130 mmHg montelukast 10 MG tablet 10 mg PO DAILY PRN (Reason: ASTHMA) Combivent Respimat 20-100 mcg/actuation mist 1 puff INHALATION Q6H Patient Comments: PT DOES HAVE THIS MEDICATION WITH HER. omeprazole 20 mg capsule,delayed release(DR/EC) 20 mg PO DAILY albuterol sulfate 2.5 mg /3 mL (0.083 %) solution for nebulization 1.25 mg inhalation TID PRN (Reason: shortness of breath or wheezing) ipratropium bromide 0.02 % solution 0.5 mg inhalation TID PRN (Reason: shortness of breath or wheezing) glipizide 2.5 mg tablet extended release 24hr 2.5 mg PO BID folic acid 1 mg tablet 1 mg PO DAILY biotin 10,000 mcg capsule 10,000 mcg PO DAILY levothyroxine 100 mcg tablet 100 mcg PO DAILY metoprolol tartrate 50 mg tablet 50 mg PO DAILY oxycodone 5 mg Tablet 5 mg PO Q6H PRN (Reason: pain) 3 Days Qty: 9 0RF cephalexin 500 mg capsule 500 mg PO Q6 Qty: 12 0RF Held prednisone 5 mg tablet 5 mg PO DAILY Hold Instructions: while on higher-dose prednisone Primary Care Provider: Carlo Diaz Referrals: Carlo Diaz MD [Primary Care Provider] - 3-5 Days if not improving Print Language: Eritrean Disposition Disposition: Home, Self Care What to do if you have Problems For any increased pain, shortness of breath, bleeding, nausea or vomiting, chestpain, or any unexpected problems, contact your Primary Care Provider. Call [facility] ([phone]) or report to the closest Emergency Room. Call 911 if necessary. 01/17/252056 <Electronically signed by Diogo Lee MD> Cosigner Signature (if applicable): CC: Dr. Carlo Diaz MD ~ Signed [facility] Work Phone: [phone] 703-273203-28-2025 Radiology Diagnostic study note [facility] Imaging Services [address] [place] [address] Chest PA and Lateral MR#: [id number] Acct: [id number] Name: ADELA WELLS Rep #: [id number] : 1945 F 79 From: Cecilia Ritter MD PCP: Dr. Carlo Diaz MD Status: [facility] ER Study:Chest PA and Lateral Date of Exam: 12/03/24 Exam# [id number] Ordering Dr: Alfonso Padilla DO PROCEDURE: CHEST PA AND LATERAL 12/03/2024 REASON FOR EXAM: WEAKNESS TECHNIQUE: Frontal and lateral views of the chest. COMPARISON: 06/10/2024 FINDINGS: The lungs are clear. No pleural effusion or pneumothorax. The cardiomediastinal silhouette is normal in size. 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 No acute osseous or soft tissue abnormality. Median sternotomy wires noted. RAD/Chest PA and Lateral IMPRESSION: No acute cardiopulmonary process. Reading Location: [facility] CC: Dr. Carlo Diaz MD; Dr. Alfonso Padilla, DO ~ [employer] Central Office: Signed [facility]03-12-2025 Discharge summary Author Karin Kristopher [facility] Note Date/Time November 17, 2024 2:0 5pm [facility] Medical Records Department [address] [place] [address] Discharge Summary 11/17/24 1041 MR#: [id number] Acct: [id number] Name: ADELA WELLS Rep #:[id number] : 1945 79 From: Karin TILLMAN PAVirgenC PCP: Dr. Carlo Diaz MD Status:ADM NEISHA [facility] Prov[facility] Date of Admission: 11/15/24 Primary Care Physician: Dr. Carlo Diaz MD Reason For Visit: INCARERATED HERNIA Diagnosis Discharge Diagnosis (1) Abdominal pain: Status: Acute Code(s): R10.9 - Unspecified abdominal pain Medications at Discharge Home Medications montelukast 10 mg tablet 10 mg PO DAILY PRN ASTHMA 12/17/13 aspirin 81 mg tablet,delayed release 81 mg PO DAILY HEART HEALTH 11/19/17 cetirizine 10 mg tablet (Zyrtec) 10 mg PO DAILY PRN allergies 02/15/20 allopurinol 100 mg tablet 100 mg PO DAILY GOUT 11/22/21 ipratropium 20 mcg-albuterol 100 mcg/actuation mist for inhalation (Combivent Respimat) 1 puff inhalation Q6H BREATHING 09/20/22 ferrous sulfate 325 mg (65 mg iron) tablet 325 mg PO DAILY SUPPLEMENT 10/04/22 furosemide 40 mg tablet (Lasix) 40 mg PO DAILY diuretic 12/25/22 cholecalciferol (vitamin D3) 25 mcg (1,000 unit) tablet 25 mcg PO SUTUTHSA vitamin 06/05/23 omeprazole 20 mg capsule,delayed release 20 mg PO DAILY reflux 11/04/23 ezetimibe 10 mg tablet (Zetia) 10 mg PO DAILY 02/27/24 prednisone 5 mg tablet 5 mg PO DAILY 02/27/24 albuterol sulfate 2.5 mg/3 mL (0.083 %) solution for nebulization 1.25 mg inhalation TID PRN shortness of breath or wheezing 05/09/24 ipratropium bromide 0.02 % solution for inhalation 0.5 mg inhalation TID PRN shortness of breath or wheezing 05/09/24 biotin 10,000 mcg capsule 10,000 mcg PO DAILY 06/10/24 folic acid 1 mg tablet 1 mg PO DAILY 06/10/24 glipizide 2.5 mg tablet, extended release 24 hr 2.5 mg PO BID 06/10/24 amlodipine 5 mg tablet 5 mg PO DAILY 08/25/24 spironolactone 25 mg tablet 25 mg PO QDAY HEART 08/25/24 levothyroxine 100 mcg tablet 100 mcg PO DAILY 11/15/24 metoprolol tartrate 50 mg tablet 50 mg PO DAILY 11/15/24 oxycodone 5 mg tablet 5 mg PO Q6H PRN pain 3 days #9 tabs 11/16/24 Hospital Course Operations - (Open right lower quadrant ventral hernia repair) Summary of Care Provided Minutes Spent on Discharge: 30 Hospital Course: Patient is an 79 y/o F who presented with lower right abdominal pain. CT scan ofthe ab/pel demonstrated right inguinal hernia containing small bowel loop which is fluid-filled. Dr. Mendoza performed an open right lower quadrant ventral herniarepair on 11/15/24. Patient tolerated the procedure well. Patient was slightly lethargic post-op day #1 and was unable to consume much nutrition. Patient was monitored for another night. Upon discharge, patient has improved mental status.She denies any nausea, vomiting. She is tolerating a transitional diet. She notes minimal right lower quadrant incisional discomfort. Physical Exam GI GI Narrative: Abdomen- soft, slight tenderness. Incision c/d/i. No erythema or infection noted. Slight amount of ecchymosis noted. Weight / BMI Weight Weight: 164 lb 3.91 oz Body Mass Index (BMI) 30.5 ABG / Lab / Microbiology Data 11/16/24 06:19 11/16/24 06:19 D/C Instructions Discharge Diet: Light diet - advance as tolerated Call your doctor if your incision/area has: Continuous Slow Oozing, Sudden Increased Bleeding, Increased Pain/ Swelling, Increased Redness, Foul Smelling Discharge and Swelling at the incision site Call your doctor if you observe: Fever of 101 or Higher Suture Line Care: Avoid Pulling/Pushing and Avoid Pinching/Bending Cleanse incision/area with: Soap & Water DC O2, CPAP, BIPAP Needs Home O2 Discharge instructions: No Please Follow Up With: Karin Summers PA-C When: Please contact our office at [phone], option #2 to schedule a 2 week follow-up Meaningful Use Info Meaningful Use Meaningful Use Diagnoses (Choose all that apply): None applicable Ischemic Stroke Statin Dosing Therapy Reference: STATIN DOSE THERAPY REFERENCE: * Patients > 75 years receive moderate or high dose statin therapy. * Patients 75 years or YOUNGER should receive HIGH intensity statin dose unless contraindicated. You will be required to document reason for non-treatment if statin daily dose does not meet guidelines. HIGH DOSE STATIN THERAPY DAILY Atorvastatin > than or = to 40 mg Rosuvastatin > than or = to 20 mg Amlodipine + Atorvastatin > than or = to 2.5/40 mg Ezetimibe + Simvastatin 10/80 mg Simvastatin 80mg Discharge Plan Admission Admit Date/Time: 11/15/24 17:43 Primary Reason for Your Visit: Incarcerated ventral hernia causing a bowel obstruction Attending Provider: Juancho Mendoza Primary Care Provider: Carlo Diaz Instructions Additional Instructions / Restrictions: Hernia Diet ? Start light with soups and soft bland foods. You may advance diet as tolerated. Activity ? You may drive in 3-5 days but not while taking narcotic pain medication. ? I encourage walking. You may go up steps, one at a time. ? Do not swim or use hot tubs for 2 weeks. ? For comfort, you may use warm compresses or ice as needed for 15-20 minutes dez time. Lifting ? You may lift up to 10 pounds for 1 week. You may advance to 20 pounds for the next 5 weeks. Dressings/Incision ? You may shower OVER your incisions Medications ? Anesthesia used during surgery and pain medications may cause constipation. I recommend initiating on the day of surgery a fiber supplement like, Metamucil, Citrucel, FiberCon, Benefiber, or a generic form of these medications. 1 heapingtablespoon in water daily. You may continue to utilize any bowel regimen or orallaxatives that you routinely take. ? As long as you are not intolerant to Tylenol, acetaminophen, ibuprofen, Motrin, Advil, Aleve, or similar medications, I would recommend transitioning tothese [id number] medicines as soon as possible instead of continued use ofnarcotic pain medication. Follow up ? You should call [facility] soon after surgery, at [phone] option 2 to make a follow up appointment for 10-14 days after your surgery. Discharge Orders/Prescriptions Prescriptions: New oxycodone 5 mg Tablet 5 mg PO Q6H PRN (Reason: pain) 3 Days Qty: 9 0RF Continued aspirin 81 mg tablet,delayed release (DR/EC) 81 mg PO DAILY cetirizine [Zyrtec] 10 mg tablet 10 mg PO DAILY PRN (Reason: allergies) allopurinol 100 mg tablet 100 mg PO DAILY furosemide [Lasix] 40 mg tablet 40 mg PO DAILY cholecalciferol (vitamin D3) 25 mcg (1,000 unit) tablet 25 mcg PO SUTUTHSA spironolactone 25 mg tablet 25 mg PO QDAY ferrous sulfate 325 mg (65 mg iron) tablet 325 mg PO DAILY prednisone 5 mg tablet 5 mg PO DAILY ezetimibe [Zetia] 10 mg tablet 10 mg PO DAILY amlodipine 5 mg tablet 5 mg PO DAILY Rx Instructions: Hold for SBP less than 130 mmHg montelukast 10 MG tablet 10 mg PO DAILY PRN (Reason: ASTHMA) Combivent Respimat 20-100 mcg/actuation mist 1 puff INHALATION Q6H Patient Comments: PT DOES HAVE THIS MEDICATION WITH HER. omeprazole 20 mg capsule,delayed release(DR/EC) 20 mg PO DAILY albuterol sulfate 2.5 mg /3 mL (0.083 %) solution for nebulization 1.25 mg inhalation TID PRN (Reason: shortness of breath or wheezing) ipratropium bromide 0.02 % solution 0.5 mg inhalation TID PRN (Reason: shortness of breath or wheezing) glipizide 2.5 mg tablet extended release 24hr 2.5 mg PO BID folic acid 1 mg tablet 1 mg PO DAILY biotin 10,000 mcg capsule 10,000 mcg PO DAILY levothyroxine 100 mcg tablet 100 mcg PO DAILY metoprolol tartrate 50 mg tablet 50 mg PO DAILY Referrals / Follow Up: Carlo Diaz MD [Primary Care Provider] - 11/23/24 10:00 am Disposition Disposition (needs filled in before D/C Order can be placed): Home, Self Care Charges/Coding Visit Charges Inpatient E&M: 96109 Disch Hosp (No charge; post-op) 11/17/24 1338 <Electronically signed by Karin TILLMAN PA-C> Cosigner Signature (if applicable): CC: OBED Summers; Dr. Carlo Diaz MD; Dr. Juancho Mendoza MD~ Signed ADDENDUM by Dr. Juancho Mendoza MD on 11/17/24 at 1405 Addendum Patient seen and examined today. She is doing well. She is feeling better today compared to yesterday. She is tolerating diet and is hopeful that she cango home later today. Recommend follow-up in 1 to 2 weeks 11/17/24 1405<Electronically signed by Juancho Mendoza MD> Cosigner Signature (if applicable): cc: OBED Summers; Dr. Carlo Diaz MD; Dr. Juancho Mendoza MD ~* Signed [facility] Work Phone: 1(706) 327-774503-12-2025 Discharge summary [facility] Medical Records Department [address] [place] [address] Discharge Summary 11/17/24 1041 MR#: [id number] Acct: [id number] Name: ADELA WELLS Rep #:[id number] : 1945 79 From: Karin TILLMAN PA-C PCP: Dr. Carlo Diaz MD Status:ADM NEISHA Location: [place] [address] Providers Date of Admission: 11/15/24 Primary Care Physician: Dr. Carlo Diaz MD Reason For Visit: INCARERATED HERNIA Diagnosis Discharge Diagnosis (1) Abdominal pain: Status: Acute Code(s): R10.9 - Unspecified abdominal pain Medications at Discharge Home Medications montelukast 10 mg tablet 10 mg PO DAILY PRN ASTHMA 12/17/13 aspirin 81 mg tablet,delayed release 81 mg PO DAILY HEART HEALTH 11/19/17 cetirizine 10 mg tablet (Zyrtec) 10 mg PO DAILY PRN allergies 02/15/20 allopurinol 100 mg tablet 100 mg PO DAILY GOUT 03/17/22 ipratropium 20 mcg-albuterol 100 mcg/actuation mist for inhalation (Combivent Respimat) 1 puff inhalation Q6H BREATHING 09/20/22 ferrous sulfate 325 mg (65 mg iron) tablet 325 mg PO DAILY SUPPLEMENT 10/04/22 furosemide 40 mg tablet (Lasix) 40 mg PO DAILY diuretic 12/25/22 cholecalciferol (vitamin D3) 25 mcg (1,000 unit) tablet 25 mcg PO SUTUTHSA vitamin 06/05/23 omeprazole 20 mg capsule,delayed release 20 mg PO DAILY reflux 11/04/23 ezetimibe 10 mg tablet (Zetia) 10 mg PO DAILY 02/27/24 prednisone 5 mg tablet 5 mg PO DAILY 02/27/24 albuterol sulfate 2.5 mg/3 mL (0.083 %) solution for nebulization 1.25 mg inhalation TID PRN shortness of breath or wheezing 05/09/24 ipratropium bromide 0.02 % solution for inhalation 0.5 mg inhalation TID PRN shortness of breath orwheezing 05/09/24 biotin 10,000 mcg capsule 10,000 mcg PO DAILY 06/10/24 folic acid 1 mg tablet 1 mg PO DAILY 06/10/24 glipizide 2.5 mg tablet, extended release 24 hr 2.5 mg PO BID 06/10/24 amlodipine 5 mg tablet 5 mg PO DAILY 08/25/24 spironolactone 25 mg tablet 25 mg PO QDAY HEART 08/25/24 levothyroxine 100 mcg tablet 100 mcg PO DAILY 11/15/24 metoprolol tartrate 50 mg tablet 50 mg PO DAILY 11/15/24 oxycodone 5 mg tablet 5 mg PO Q6H PRN pain 3 days #9 tabs 11/16/24 Hospital Course Operations - (Open right lower quadrant ventral hernia repair) Summary of Care Provided Minutes Spent on Discharge: 30 Hospital Course: Patient is an 79 y/o F who presented with lower right abdominal pain. CT scan ofthe ab/pel demonstrated right inguinal hernia containing small bowel loop which is fluid-filled. Dr. Mendoza performed anopen right lower quadrant ventral herniarepair on 11/15/24. Patient tolerated the procedure well. Patient was slightly lethargic post-op day #1 and was unable to consume much nutrition. Patient was monitored for another night. Upon discharge, patient has improved mental status.She denies any nausea,vomiting. She is tolerating a transitional diet. She notes minimal right lower quadrant incisional discomfort. Physical Exam GI GI Narrative: Abdomen- soft, slight tenderness. Incision c/d/i. No erythema or infection noted. Slight amount of ecchymosis noted. Weight / BMI Weight Weight: 164 lb 3.91 oz Body Mass Index (BMI) 30.5 ABG / Lab / Microbiology Data 11/16/24 06:19 11/16/24 06:19 D/C Instructions Discharge Diet: Light diet - advance as tolerated Call your doctor if your incision/area has: Continuous Slow Oozing, Sudden Increased Bleeding, Increased Pain/ Swelling, Increased Redness, Foul Smelling Discharge and Swelling at the incision site Call your doctor if you observe: Fever of 101 or Higher Suture Line Care: Avoid Pulling/Pushing and Avoid Pinching/Bending Cleanse incision/area with: Soap & Water DC O2, CPAP, BIPAP Needs Home O2 Discharge instructions: No Please Follow Up With: Karin Summers PA-C When: Please contact our office at [phone], option #2 to schedule a 2 week follow-up Meaningful Use Info Meaningful Use Meaningful Use Diagnoses (Choose all that apply): None applicable Ischemic Stroke Statin Dosing Therapy Reference: STATIN DOSE THERAPY REFERENCE: * Patients > 75 years receive moderate or high dose statin therapy. * Patients 75 years or YOUNGER should receive HIGH intensity statin dose unless contraindicated. You will be required to document reason for non-treatment if statin daily dose does not meet guidelines. HIGH DOSE STATIN THERAPY DAILY Atorvastatin > than or = to 40 mg Rosuvastatin > than or = to 20 mg Amlodipine + Atorvastatin > than or = to 2.5/40 mg Ezetimibe + Simvastatin 10/80 mg Simvastatin 80mg Discharge Plan Admission Admit Date/Time: 11/15/24 17:43 Primary Reason for Your Visit: Incarcerated ventral hernia causing a bowel obstruction Attending Provider: Juancho Mendoza Primary Care Provider: Carlo Diaz Instructions Additional Instructions / Restrictions: Hernia Diet ? Start light with soups and soft bland foods. You may advance diet as tolerated. Activity ? You may drive in 3-5 days but not while taking narcotic pain medication. ? I encourage walking. You may go up steps, one at a time. ? Do not swim or use hot tubs for 2 weeks. ? For comfort, you may use warm compresses or ice as needed for 15-20 minutes dez time. Lifting ? You may lift up to 10 pounds for 1 week. You may advance to 20 pounds for the next 5 weeks. Dressings/Incision ? You may shower OVER your incisions Medications ? Anesthesia used during surgery and pain medications may cause constipation. I recommend initiating on the day of surgery a fiber supplement like, Metamucil, Citrucel, FiberCon, Benefiber, or a generic form of these medications. 1 heapingtablespoon in water daily. You may continue to utilize any bowel regimen or orallaxatives that you routinely take. ? As long as you are not intolerant to Tylenol, acetaminophen, ibuprofen, Motrin, Advil, Aleve, or similar medications, I would recommend transitioning tothese qusc-hua-[id number] medicines as soon as possible instead of continued use ofnarcotic pain medication. Follow up ? You should call [facility] soon after surgery, at [phone] option 2 to make a follow up appointment for 10-14 days after your surgery. Discharge Orders/Prescriptions Prescriptions: New oxycodone 5 mg Tablet 5 mg PO Q6H PRN (Reason: pain) 3 Days Qty: 9 0RF Continued aspirin 81 mg tablet,delayed release (DR/EC) 81 mg PO DAILY cetirizine [Zyrtec] 10 mg tablet 10 mg PO DAILY PRN (Reason: allergies) allopurinol 100 mg tablet 100 mg PO DAILY furosemide [Lasix] 40 mg tablet 40 mg PO DAILY cholecalciferol (vitamin D3) 25 mcg (1,000 unit) tablet 25 mcg PO SUTUTHSA spironolactone 25 mg tablet 25 mg PO QDAY ferrous sulfate 325 mg (65 mg iron) tablet 325 mg PO DAILY prednisone 5 mg tablet 5 mg PO DAILY ezetimibe [Zetia] 10 mg tablet 10 mg PO DAILY amlodipine 5 mg tablet 5 mg PO DAILY Rx Instructions: Hold for SBP less than 130 mmHg montelukast 10 MG tablet 10 mg PO DAILY PRN (Reason: ASTHMA) Combivent Respimat 20-100 mcg/actuation mist 1 puff INHALATION Q6H Patient Comments: PT DOES HAVE THIS MEDICATION WITH HER. omeprazole 20 mg capsule,delayed release(DR/EC) 20 mg PO DAILY albuterol sulfate 2.5 mg /3 mL (0.083 %) solution for nebulization 1.25 mg inhalation TID PRN (Reason: shortness of breath or wheezing) ipratropium bromide 0.02 % solution 0.5 mg inhalation TID PRN (Reason: shortness of breath or wheezing) glipizide 2.5 mg tablet extended release 24hr 2.5 mg PO BID folic acid 1 mg tablet 1 mg PO DAILY biotin 10,000 mcg capsule 10,000 mcg PO DAILY levothyroxine 100 mcg tablet 100 mcg PO DAILY metoprolol tartrate 50 mg tablet 50 mg PO DAILY Referrals / Follow Up: Carlo Diaz MD [Primary Care Provider] - 11/23/24 10:00 am Disposition Disposition (needs filled in before D/C Order can be placed): Home, Self Care Charges/Coding Visit Charges Inpatient E&M: 04748 Disch Hosp (No charge; post-op) 11/17/24 1338 Cosigner Signature (if applicable): CC: OBED Summers; Dr. Carlo Diaz MD; Dr. Juancho Mendoza MD~ Signed ADDENDUM by Dr. Juancho Mendoza MD on 11/17/24 at 1405 Addendum Patient seen and examined today. She is doing well. She is feeling better today compared to yesterday. She is tolerating diet and is hopeful that she cango home later today. Recommend follow-up in 1 to 2 weeks 11/17/24 1405 Cosigner Signature (if applicable): cc: OBED Summers; Dr. Carlo Diaz MD; Dr. Juancho Mendoza MD ~* Signed [facility]03-12-2025 [facility] Medical Records Department [address] [place] [address] Discharge Summary 11/17/24 1041 MR#: [id number] Acct: [id number] Name: ADELA WELLS Rep #: [id number] : 1945 79 From: Karin TILLMAN PA-C PCP: Dr. Carlo Diaz MD Status:ADM NEISHA Location: [place] [address] Providers Date of Admission: 11/15/24 Primary Care Physician: Dr. Carlo Diaz MD Reason For Visit: INCARERATED HERNIA Diagnosis Discharge Diagnosis (1) Abdominal pain: Status: Acute Code(s): R10.9 - Unspecified abdominal pain Medications at Discharge Home Medications montelukast 10 mg tablet 10 mg PO DAILY PRN ASTHMA 12/17/13 aspirin 81 mg tablet,delayed release 81 mg PO DAILY HEART HEALTH 11/19/17 cetirizine 10 mg tablet (Zyrtec) 10 mg PO DAILY PRN allergies 02/15/20 allopurinol 100 mg tablet 100 mg PO DAILY GOUT 11/22/21 ipratropium 20 mcg-albuterol 100 mcg/actuation mist for inhalation (Combivent Respimat) 1 puff inhalation Q6H BREATHING 09/20/22 ferrous sulfate 325 mg (65 mg iron) tablet 325 mg PO DAILY SUPPLEMENT 10/04/22 furosemide 40 mg tablet (Lasix) 40 mg PO DAILY diuretic 12/25/22 cholecalciferol (vitamin D3) 25 mcg (1,000 unit) tablet 25 mcg PO SUTUTHSA vitamin 06/05/23 omeprazole 20 mg capsule,delayed release 20 mg PO DAILY reflux 11/04/23 ezetimibe 10 mg tablet (Zetia) 10 mg PO DAILY 02/27/24 prednisone 5 mg tablet 5 mg PO DAILY 02/27/24 albuterol sulfate 2.5 mg/3 mL (0.083 %) solution for nebulization 1.25 mg inhalation TID PRN shortness of breath or wheezing 05/09/24 ipratropium bromide 0.02 % solution for inhalation 0.5 mg inhalation TID PRN shortness of breath or wheezing 05/09/24 biotin 10,000 mcg capsule 10,000 mcg PO DAILY 06/10/24 folic acid 1 mg tablet 1 mg PO DAILY 06/10/24 glipizide 2.5 mg tablet, extended release 24 hr 2.5 mg PO BID 06/10/24 amlodipine 5 mg tablet 5 mg PO DAILY 08/25/24 spironolactone 25 mg tablet 25 mg PO QDAY HEART 08/25/24 levothyroxine 100 mcg tablet 100 mcg PO DAILY 11/15/24 metoprolol tartrate 50 mg tablet 50 mg PO DAILY 11/15/24 oxycodone 5 mg tablet 5 mg PO Q6H PRN pain 3 days #9 tabs 11/16/24 Hospital Course Operations - (Open right lower quadrant ventral hernia repair) Summary of Care Provided Minutes Spent on Discharge: 30 Hospital Course: Patient is an 79 y/o F who presented with lower right abdominal pain. CT scan of the ab/pel demonstrated right inguinal hernia containing small bowel loop which is fluid- filled. Dr. Mendoza performed an open right lower quadrant ventral hernia repair on 11/15/24. Patient tolerated the procedure well. Patient was slightly lethargic post-op day #1 and was unable to consume much nutrition. Patient was monitored for another night. Upon discharge, patient has improved mental status. She denies any nausea, vomiting. She is tolerating a transitional diet. She notes minimal right lower quadrant incisional discomfort. Physical Exam GI GI Narrative: Abdomen- soft, slight tenderness. Incision c/d/i. No erythema or infection noted. Slight amount of ecchymosis noted. Weight / BMI Weight Weight: 164 lb 3.91 oz Body Mass Index (BMI) 30.5 ABG / Lab / Microbiology Data 11/16/24 06:19 11/16/24 06:19 D/C Instructions Discharge Diet: Light diet - advance as tolerated Call your doctor if your incision/area has: Continuous Slow Oozing, Sudden Increased Bleeding, Increased Pain/ Swelling, Increased Redness, Foul Smelling Discharge and Swelling at the incision site Call your doctor if you observe: Fever of 101 or Higher Suture Line Care: Avoid Pulling/Pushing and Avoid Pinching/Bending Cleanse incision/area with: Soap Water DC O2, CPAP, BIPAP Needs Home O2 Discharge instructions: No Please Follow Up With: Karin Summers PA-C When: Please contact our office at [phone], option #2 to schedule a 2 week follow-up Meaningful Use Info Meaningful Use Meaningful Use Diagnoses (Choose all that apply): None applicable Ischemic Stroke Statin Dosing Therapy Reference: STATIN DOSE THERAPY REFERENCE: * Patients > 75 years receive moderate or high dose statin therapy. * Patients 75 years or YOUNGER should receive HIGH intensity statin dose unless contraindicated. You will be required to document reason for non-treatment if statin daily dose does not meet guidelines. HIGH DOSE STATIN THERAPY DAILY Atorvastatin > than or = to 40 mg Rosuvastatin > than or = to 20 mg Amlodipine + Atorvastatin > than or = to 2.5/40 mg Ezetimibe + Simvastatin 10/80 mg Simvastatin 80mg Discharge Plan Admission Admit Date/Time: 11/15/24 17:43 Primary Reason for Your Visit: Incarcerated ventral hernia causing a bowel obstruction Attending Provider: Juancho Mendoza Primary Care Provider: Carlo Diaz Instructions Additional Instructions / Restric (more content not included)...[facility]03-11-2025 Consult note Author Wilder Constantino [facility] Note Date/Time November 16, 2024 11: 26am [facility] Medical Records Department [address] [place] [address] Counseling Note - Pharmacy 11/16/24 1126 MR#: [id number] Acct: [id number] Name: ADELA WELLS Rep #:[id number] : 1945 79 From: Wilder Constantino PCP: Dr. Carlo Diaz MD Status:ADM NEISHA Y Location: [place] [address] Pharmacy [facility] has performed discharge medication counseling for this patient. The patient was counseled on the following discharge medications and changes in medications for homegoing review. The Reason for Use, instructions for use, and potential side effects were reviewed for all new medications. The patient's questions regarding all of their medications were answered. 1. Oxycodone 5 mg PO Q6H PRN pain The patient was able to verbally demonstrate an understanding of their dischargemedications. Medications at Discharge Home Medications montelukast 10 mg tablet 10 mg PO DAILY PRN ASTHMA 12/17/13 aspirin 81 mg tablet,delayed release 81 mg PO DAILY HEART HEALTH 11/19/17 cetirizine 10 mg tablet (Zyrtec) 10 mg PO DAILY PRN allergies 02/15/20 allopurinol 100 mg tablet 100 mg PO DAILY GOUT 11/22/21 ipratropium 20 mcg-albuterol 100 mcg/actuation mist for inhalation (Combivent Respimat) 1 puff inhalation Q6H BREATHING 09/20/22 ferrous sulfate 325 mg (65 mg iron) tablet 325 mg PO DAILY SUPPLEMENT 10/04/22 furosemide 40 mg tablet (Lasix) 40 mg PO DAILY diuretic 12/25/22 cholecalciferol (vitamin D3) 25 mcg (1,000 unit) tablet 25 mcg PO SUTUTHSA vitamin 06/05/23 omeprazole 20 mg capsule,delayed release 20 mg PO DAILY reflux 11/04/23 ezetimibe 10 mg tablet (Zetia) 10 mg PO DAILY 02/27/24 prednisone 5 mg tablet 5 mg PO DAILY 02/27/24 albuterol sulfate 2.5 mg/3 mL (0.083 %) solution for nebulization 1.25 mg inhalation TID PRN shortness of breath or wheezing 05/09/24 ipratropium bromide 0.02 % solution for inhalation 0.5 mg inhalation TID PRN shortness of breath or wheezing 05/09/24 biotin 10,000 mcg capsule 10,000 mcg PO DAILY 06/10/24 folic acid 1 mg tablet 1 mg PO DAILY 06/10/24 glipizide 2.5 mg tablet, extended release 24 hr 2.5 mg PO BID 06/10/24 amlodipine 5 mg tablet 5 mg PO DAILY 08/25/24 spironolactone 25 mg tablet 25 mg PO QDAY HEART 08/25/24 levothyroxine 100 mcg tablet 100 mcg PO DAILY 11/15/24 metoprolol tartrate 50 mg tablet 50 mg PO DAILY 11/15/24 oxycodone 5 mg tablet 5 mg PO Q6H PRN pain 3 days #9 tabs 11/16/24 11/16/24 1126 <Electronically signed by Wilder montanez> Date _ Wilder Alcantar Signature (if applicable): Date CC: ~ Signed [facility] Work Phone: 1(710) 248-245803-11-2025 Discharge summary Author Karin Summers [facility] Note Date/Time November 16, 2024 10: 02am [facility] Medical Records Department [address] [place] [address] Instructions for Home/Discharge Instructions 11/16/24 0935 MR#: [id number] Acct: [id number] Name: ADELA WELLS Rep #:[id number] : 1945 79 From: Karin TILLMAN PA-C PCP: Dr. Carlo Diaz MD Status:ADM NEISHA Discharge Instructions Diet Discharge Diet: Light diet - advance as tolerated DC O2, CPAP, BIPAP needs Home O2 Discharge instructions: No Dressing / Incision Discharge Activity: May Not Drive (3-5 days or while on narcotic pain medication) Lifting Restrictions: 10 pounds for 1 week; 20 pounds for 5 additional weeks Dressing / Incision Call your doctor if your incision/area has: Continuous Slow Oozing, Sudden Increased Bleeding, Increased Pain/ Swelling, Increased Redness, Foul Smelling Discharge and Swelling at the incision site Call your doctor if you observe: Fever of 101 or Higher Suture Line Care: Avoid Pulling/Pushing and Avoid Pinching/Bending Cleanse incision/area with: Soap & Water Follow Up Care Please Follow Up With: Karin Summers PA-C When: Please contact our office at [phone], option #2 to schedule a 2 week follow-up Test Results: Test results from this visit will be discussed in further detail at your follow- up appointment, if applicable. Discharge Plan Admission Admit Date/Time: 11/15/24 17:43 Primary Reason for Your Visit: Incarcerated ventral hernia causing a bowel obstruction Attending Provider: Juancho Mendoza Primary Care Provider: Carlo Diaz Instructions Additional Instructions / Restrictions: Hernia Diet ? Start light with soups and soft bland foods. You may advance diet as tolerated. Activity ? You may drive in 3-5 days but not while taking narcotic pain medication. ? I encourage walking. You may go up steps, one at a time. ? Do not swim or use hot tubs for 2 weeks. ? For comfort, you may use warm compresses or ice as needed for 15-20 minutes dez time. Lifting ? You may lift up to 10 pounds for 1 week. You may advance to 20 pounds for the next 5 weeks. Dressings/Incision ? You may shower OVER your incisions Medications ? Anesthesia used during surgery and pain medications may cause constipation. I recommend initiating on the day of surgery a fiber supplement like, Metamucil, Citrucel, FiberCon, Benefiber, or a generic form of these medications. 1 heapingtablespoon in water daily. You may continue to utilize any bowel regimen or orallaxatives that you routinely take. ? As long as you are not intolerant to Tylenol, acetaminophen, ibuprofen, Motrin, Advil, Aleve, or similar medications, I would recommend transitioning tothese tejg-nkz-tebasae medicines as soon as possible instead of continued use ofnarcotic pain medication. Follow up ? You should call [facility] soon after surgery, at [phone] option 2 to make a follow up appointment for 10-14 days after your surgery. Discharge Orders/Prescriptions Prescriptions: New oxycodone 5 mg Tablet 5 mg PO Q6H PRN (Reason: pain) 3 Days Qty: 9 0RF Continued aspirin 81 mg tablet,delayed release (DR/EC) 81 mg PO DAILY cetirizine [Zyrtec] 10 mg tablet 10 mg PO DAILY PRN (Reason: allergies) allopurinol 100 mg tablet 100 mg PO DAILY furosemide [Lasix] 40 mg tablet 40 mg PO DAILY cholecalciferol (vitamin D3) 25 mcg (1,000 unit) tablet 25 mcg PO SUTUTHSA spironolactone 25 mg tablet 25 mg PO QDAY ferrous sulfate 325 mg (65 mg iron) tablet 325 mg PO DAILY prednisone 5 mg tablet 5 mg PO DAILY ezetimibe [Zetia] 10 mg tablet 10 mg PO DAILY amlodipine 5 mg tablet 5 mg PO DAILY Rx Instructions: Hold for SBP less than 130 mmHg montelukast 10 MG tablet 10 mg PO DAILY PRN (Reason: ASTHMA) Combivent Respimat 20-100 mcg/actuation mist 1 puff INHALATION Q6H Patient Comments: PT DOES HAVE THIS MEDICATION WITH HER. omeprazole 20 mg capsule,delayed release(DR/EC) 20 mg PO DAILY albuterol sulfate 2.5 mg /3 mL (0.083 %) solution for nebulization 1.25 mg inhalation TID PRN (Reason: shortness of breath or wheezing) ipratropium bromide 0.02 % solution 0.5 mg inhalation TID PRN (Reason: shortness of breath or wheezing) glipizide 2.5 mg tablet extended release 24hr 2.5 mg PO BID folic acid 1 mg tablet 1 mg PO DAILY biotin 10,000 mcg capsule 10,000 mcg PO DAILY levothyroxine 100 mcg tablet 100 mcg PO DAILY metoprolol tartrate 50 mg tablet 50 mg PO DAILY Referrals / Follow Up: Carlo Diaz MD [Primary Care Provider] - Disposition Disposition (needs filled in before D/C Order can be placed): Home, Self Care 11/16/24 1002<Electronically signed by Karin TILLMAN PA-C>Karin TILLMAN PA-C CC: Dr. Carlo Diaz MD ~ Signed [facility] Work Phone: [phone] 502-468803-11-2025 Consult note [facility] Medical Records Department [address] [place] [address] Counseling Note - Pharmacy 11/16/24 1126 MR#: [id number] Acct: [id number] Name: ADELA WELLS Rep #:[id number] : 1945 79 From: Wilder Constantino PCP: Dr. Carlo Diaz MD Status:ADM NEISHA Y Location: [place] [address] Pharmacy [facility] has performed discharge medication counseling for this patient. The patient was counseled on the following discharge medications and changes in medications for homegoing review. The Reason for Use, instructions for use, and potential side effects were reviewed for all new medications. The patient's questions regarding all of their medications were answered. 1. Oxycodone 5 mg PO Q6H PRN pain The patient was able to verbally demonstrate an understanding of their dischargemedications. Medications at Discharge Home Medications montelukast 10 mg tablet 10 mg PO DAILY PRN ASTHMA 12/17/13 aspirin 81 mg tablet,delayed release 81 mg PO DAILY HEART HEALTH 11/19/17 cetirizine 10 mg tablet (Zyrtec) 10 mg PO DAILY PRN allergies 02/15/20 allopurinol 100 mg tablet 100 mg PO DAILY GOUT 11/22/21 ipratropium 20 mcg-albuterol 100 mcg/actuation mist for inhalation (Combivent Respimat) 1 puff inhalation Q6H BREATHING 09/20/22 ferrous sulfate 325 mg (65 mg iron) tablet 325 mg PO DAILY SUPPLEMENT 10/04/22 furosemide 40 mg tablet (Lasix) 40 mg PO DAILY diuretic 12/25/22 cholecalciferol (vitamin D3) 25 mcg (1,000 unit) tablet 25 mcg PO SUTUTHSA vitamin 06/05/23 omeprazole 20 mg capsule,delayed release 20 mg PO DAILY reflux 11/04/23 ezetimibe 10 mg tablet (Zetia) 10 mg PO DAILY 02/27/24 prednisone 5 mg tablet 5 mg PO DAILY 02/27/24 albuterol sulfate 2.5 mg/3 mL (0.083 %) solution for nebulization 1.25 mg inhalation TID PRN shortness of breath or wheezing 05/09/24 ipratropium bromide 0.02 % solution for inhalation 0.5 mg inhalation TID PRN shortness of breath orwheezing 05/09/24 biotin 10,000 mcg capsule 10,000 mcg PO DAILY 06/10/24 folic acid 1 mg tablet 1 mg PO DAILY 06/10/24 glipizide 2.5 mg tablet, extended release 24 hr 2.5 mg PO BID 06/10/24 amlodipine 5 mg tablet 5 mg PO DAILY 08/25/24 spironolactone 25 mg tablet 25 mg PO QDAY HEART 08/25/24 levothyroxine 100 mcg tablet 100 mcg PO DAILY 11/15/24 metoprolol tartrate 50 mg tablet 50 mg PO DAILY 11/15/24 oxycodone 5 mg tablet 5 mg PO Q6H PRN pain 3 days #9 tabs 11/16/24 11/16/24 1126 r> Date _ Wilder Alcantar Signature (if applicable): Date CC: ~ Signed [facility]03-11-2025 Discharge summary [facility] Medical Records Department [address] [place] [address] Instructions for Home/Discharge Instructions 11/16/24 0935 MR#: [id number] Acct: [id number] Name: ADELA WELLS Rep #:[id number] : 1945 79 From: Karin TILLMAN PA-C PCP: Dr. Carlo Diaz MD Status:ADM NEISHA Discharge Instructions Diet Discharge Diet: Light diet - advance as tolerated DC O2, CPAP, BIPAP needs Home O2 Discharge instructions: No Dressing / Incision Discharge Activity: May Not Drive (3-5 days or while on narcotic pain medication) Lifting Restrictions: 10 pounds for 1 week; 20 pounds for 5 additional weeks Dressing / Incision Call your doctor if your incision/area has: Continuous Slow Oozing, Sudden Increased Bleeding, Increased Pain/ Swelling, Increased Redness, Foul Smelling Discharge and Swelling at the incision site Call your doctor if you observe: Fever of 101 or Higher Suture Line Care: Avoid Pulling/Pushing and Avoid Pinching/Bending Cleanse incision/area with: Soap & Water Follow Up Care Please Follow Up With: Karin Summers PA-C When: Please contact our office at [phone], option #2 to schedule a 2 week follow-up Test Results: Test results from this visit will be discussed in further detail at your follow- up appointment, if applicable. Discharge Plan Admission Admit Date/Time: 11/15/24 17:43 Primary Reason for Your Visit: Incarcerated ventral hernia causing a bowel obstruction Attending Provider: Juancho Mendoza Primary Care Provider: Carlo Diaz Instructions Additional Instructions / Restrictions: Hernia Diet ? Start light with soups and soft bland foods. You may advance diet as tolerated. Activity ? You may drive in 3-5 days but not while taking narcotic pain medication. ? I encourage walking. You may go up steps, one at a time. ? Do not swim or use hot tubs for 2 weeks. ? For comfort, you may use warm compresses or ice as needed for 15-20 minutes dez time. Lifting ? You may lift up to 10 pounds for 1 week. You may advance to 20 pounds for the next 5 weeks. Dressings/Incision ? You may shower OVER your incisions Medications ? Anesthesia used during surgery and pain medications may cause constipation. I recommend initiating on the day of surgery a fiber supplement like, Metamucil, Citrucel, FiberCon, Benefiber, or a generic form of these medications. 1 heapingtablespoon in water daily. You may continue to utilize any bowel regimen or orallaxatives that you routinely take. ? As long as you are not intolerant to Tylenol, acetaminophen, ibuprofen, Motrin, Advil, Aleve, or similar medications, I would recommend transitioning tothese mtgu-pas-qgxnnik medicines as soon as possible instead of continued use ofnarcotic pain medication. Follow up ? You should call [facility] soon after surgery, at [phone] option 2 to make a follow up appointment for 10-14 days after your surgery. Discharge Orders/Prescriptions Prescriptions: New oxycodone 5 mg Tablet 5 mg PO Q6H PRN (Reason: pain) 3 Days Qty: 9 0RF Continued aspirin 81 mg tablet,delayed release (DR/EC) 81 mg PO DAILY cetirizine [Zyrtec] 10 mg tablet 10 mg PO DAILY PRN (Reason: allergies) allopurinol 100 mg tablet 100 mg PO DAILY furosemide [Lasix] 40 mg tablet 40 mg PO DAILY cholecalciferol (vitamin D3) 25 mcg (1,000 unit) tablet 25 mcg PO SUTUTHSA spironolactone 25 mg tablet 25 mg PO QDAY ferrous sulfate 325 mg (65 mg iron) tablet 325 mg PO DAILY prednisone 5 mg tablet 5 mg PO DAILY ezetimibe [Zetia] 10 mg tablet 10 mg PO DAILY amlodipine 5 mg tablet 5 mg PO DAILY Rx Instructions: Hold for SBP less than 130 mmHg montelukast 10 MG tablet 10 mg PO DAILY PRN (Reason: ASTHMA) Combivent Respimat 20-100 mcg/actuation mist 1 puff INHALATION Q6H Patient Comments: PT DOES HAVE THIS MEDICATION WITH HER. omeprazole 20 mg capsule,delayed release(DR/EC) 20 mg PO DAILY albuterol sulfate 2.5 mg /3 mL (0.083 %) solution for nebulization 1.25 mg inhalation TID PRN (Reason: shortness of breath or wheezing) ipratropium bromide 0.02 % solution 0.5 mg inhalation TID PRN (Reason: shortness of breath or wheezing) glipizide 2.5 mg tablet extended release 24hr 2.5 mg PO BID folic acid 1 mg tablet 1 mg PO DAILY biotin 10,000 mcg capsule 10,000 mcg PO DAILY levothyroxine 100 mcg tablet 100 mcg PO DAILY metoprolol tartrate 50 mg tablet 50 mg PO DAILY Referrals / Follow Up: Carlo Diaz MD [Primary Care Provider] - Disposition Disposition (needs filled in before D/C Order can be placed): Home, Self Care 11/16/24 1002Amanda Kristopher TILLMAN PA-C CC: Dr. Carlo Diaz MD ~ Signed [facility]03-11-2025 Progress note Author Juancho Mendoza [facility] Note Date/Time November 16, 2024 7:3 7am [facility] Medical Records Department [address] [address] Progress Note - Surgery 11/16/24 0736 MR#: [id number] Acct: [id number] Name: ADELA WELLS Rep #:[id number] : 1945 79 From: Juancho Mendoza MD PCP: Dr. Carlo Diaz MD Status:ADM NEISHA Location: [place] [address] Subjective Subjective The patient is an 79-year-old female status post a ventral hernia repair yesterday. She is doing well this morning. No issues or complaints other than mild incisional soreness. She has been tolerating clear liquid diet. Pain is well-controlled Objective Data Objective Data Vital Signs: Vital Signs Temp Pulse Resp BP Pulse Ox O2 Del Method O2 Flow Rate 98.0 F 72 16 128/67 H 95 Room Air 2 11/16/24 06:07 11/16/24 06:07 11/16/24 06:07 11/16/24 06:07 11/16/24 06:07 11/16/24 06:07 11/15/24 22:56 Oxygen Flow Rate (L/min) 2 Oxygen Delivery Method Room Air Weight: 164 lb 3.91 oz Body Mass Index (BMI) 30.5 Intake & Output: Intake and Output for Last 24 Hours 11/15/24 11/15/24 11/16/24 00:59 23:59 23:59 Intake Total 1050 / 1050 400 / 400 Output Total 80 / 80 Balance 970 / 970 400 / 400 Lab / Micro Data 11/16/24 06:19 11/15/24 12:00 Labs: Laboratory Results - last 24 hr 11/15/24 12:00: WBC 13.6 H, RBC 3.72 L, Hgb 11.7 L, Hct 36.4 L, MCV 97.8, MCH 31.5, MCHC 32.1, RDW Std Deviation 51.2 H, RDW Coeff of Kamar 14.2, Plt Count 341,MPV 10.2, Immature Gran % (Auto) 0.400, Neut % (Auto) 61.8, Lymph % (Auto) 29.8,Burnett % (Auto) 6.2, Eos % (Auto) 1.4, Baso % (Auto) 0.4, Absolute Neuts (auto) 8.4 H, Absolute Lymphs (auto) 4.06, Nucleated RBC % 0, Sodium 135, Potassium 4.2, Chloride 101, Carbon Dioxide 19.5 L, Anion Gap 14, BUN 38 H, Creatinine 2.36 H, Estim Creat Clear Calc 17.54 L, Est GFR (MDRD) Non-Af 20 L, BUN/Creatinine Ratio 16.1, Glucose 164 H, Calcium 9.1, Total Bilirubin 0.47, AST23, ALT 14, Alkaline Phosphatase 109 H, Total Protein 7.1, Albumin 3.7, Globulin3.4, Albumin/Globulin Ratio 1.1 11/15/24 12:10: Lactic Acid 2.1 H 11/15/24 13:20: Urine Color Yellow, Urine Clarity Sl. Cloudy, Urine pH 6.0, Ur Specific [place] 1.015, Urine Protein 30 H, Urine Glucose (UA) Normal, Urine Ketones Negative, Urine Occult Blood 10 H, Urine Nitrite Negative, Urine Bilirubin Negative, Urine Urobilinogen Normal, Ur Leukocyte Esterase 500 H, Urine RBC 5-10 SEEN, Urine WBC >100 SEEN, Ur Squamous Epith Cells 10-25 SEEN, Urine Bacteria 1+, Hyaline Casts 0-5 SEEN, Urine Mucus 0 SEEN 11/15/24 18:02: POC Glucose 113 H 11/15/24 20:51: POC Glucose 142 H 11/16/24 06:19: WBC 12.0 H, RBC 3.00 L, Hgb 9.6 L, Hct 29.9 L, MCV 99.7 H, MCH 32.0, MCHC 32.1, RDW Std Deviation 52.6 H, RDW Coeff of Kamar 14.4, Plt Count 289,MPV 10.5, Immature Gran % (Auto) 0.300, Neut % (Auto) 75.1 H, Lymph % (Auto) 16.8 L, Burnett % (Auto) 6.5, Eos % (Auto) 0.9, Baso % (Auto) 0.4, Absolute Neuts (auto) 9.0 H, Absolute Lymphs (auto) 2.01, Nucleated RBC % 0 Radiography Diagnostic Testing: Radiology Impression Abdomen/Pelvis CT 11/15/24 12:45 IMPRESSION: Right inguinal hernia containing small bowel loop which is fluid-filled. Fluid is also seen within the herniated sac. Mildly dilated/fluid-filled distal small bowel loops. Sigmoid diverticulosis without evidence of diverticulitis at this time. Extensive atherosclerotic calcification of the abdominal aorta and the major visceral branches. One or more dose reduction techniques were used (e.g., Automated exposure control, adjustment of the mA and/or kV according to patient size, use of iterative reconstruction technique). Reading Location: [facility] Physical Exam Narrative She is alert and oriented x 3. She is in no acute distress. Abdomen is soft and appropriately tender. Abdominal binder is in place. Assessment & Plan Assessment/Plan (1) Abdominal pain: PLAN: Plan Postoperative day #1 from a open incisional hernia repair in the right lower quadrant. She is doing well from my standpoint. I am recommending advancing her diet. If she continues to do well, she could probably be discharged to home later today. Await a.m. blood work 11/16/24 0737 <Electronically signed by Juancho Mendoza MD> Cosigner Signature (if applicable): CC: ~ Signed [facility] Work Phone: 1(741) 226-279903-11-2025 Progress note [facility] Medical Records Department [address] [address] Progress Note - Surgery 11/16/24 0736 MR#: [id number] Acct: [id number] Name: ADELA WELLS Rep #:[id number] : 1945 79 From: Juancho Mendoza MD PCP: Dr. Carlo Diaz MD Status:ADM NEISHA Location: [facility] [id number] Subjective Subjective The patient is an 79-year-old female status post a ventral hernia repair yesterday. She is doing well this morning. No issues or complaints other than mild incisional soreness. She has been tolerating clear liquid diet. Pain is well-controlled Objective Data Objective Data Vital Signs: Vital Signs Temp Pulse Resp BP Pulse Ox O2 Del Method O2 Flow Rate 98.0 F 72 16 128/67 H 95 Room Air 2 11/16/24 06:07 11/16/24 06:07 11/16/24 06:07 11/16/24 06:07 11/16/24 06:07 11/16/24 06:07 11/15/24 22:56 Oxygen Flow Rate (L/min) 2 Oxygen Delivery Method Room Air Weight: 164 lb 3.91 oz Body Mass Index (BMI) 30.5 Intake & Output: Intake and Output for Last 24 Hours 11/15/24 11/15/24 11/16/24 00:59 23:59 23:59 Intake Total 1050 / 1050 400 / 400 Output Total 80 / 80 Balance 970 / 970 400 / 400 Lab / Micro Data 11/16/24 06:19 11/15/24 12:00 Labs: Laboratory Results - last 24 hr 11/15/24 12:00: WBC 13.6 H, RBC 3.72 L, Hgb 11.7 L, Hct 36.4 L, MCV 97.8, MCH 31.5, MCHC 32.1, RDW Std Deviation 51.2 H, RDW Coeff of Kamar 14.2, Plt Count 341,MPV 10.2, Immature Gran % (Auto) 0.400, Neut % (Auto) 61.8, Lymph % (Auto) 29.8,Burnett % (Auto) 6.2, Eos % (Auto) 1.4, Baso % (Auto) 0.4, Absolute Neuts (auto) 8.4 H, Absolute Lymphs (auto) 4.06, Nucleated RBC % 0, Sodium 135, Potassium 4.2, Chloride 101, Carbon Dioxide 19.5 L, Anion Gap 14, BUN 38 H, Creatinine 2.36 H, Estim Creat Clear Calc 17.54 L, Est GFR (MDRD) Non-Af 20 L, BUN/Creatinine Ratio 16.1, Glucose 164 H, Calcium 9.1, Total Bilirubin 0.47, AST23, ALT 14, Alkaline Phosphatase 109 H, Total Protein 7.1, Albumin 3.7, Globulin3.4, Albumin/Globulin Ratio 1.1 11/15/24 12:10: Lactic Acid 2.1 H 11/15/24 13:20: Urine Color Yellow, Urine Clarity Sl. Cloudy, Urine pH 6.0, Ur Specific [place] 1.015, Urine Protein 30 H, Urine Glucose (UA) Normal, Urine Ketones Negative, Urine Occult Blood 10 H, Urine Nitrite Negative, Urine Bilirubin Negative, Urine Urobilinogen Normal, Ur Leukocyte Esterase 500 H, Urine RBC 5-10 SEEN, Urine WBC >100 SEEN, Ur Squamous Epith Cells 10-25 SEEN, Urine Bacteria 1+, Hyaline Casts 0-5 SEEN, Urine Mucus 0 SEEN 11/15/24 18:02: POC Glucose 113 H 11/15/24 20:51: POC Glucose 142 H 11/16/24 06:19: WBC 12.0 H, RBC 3.00 L, Hgb 9.6 L, Hct 29.9 L, MCV 99.7 H, MCH 32.0, MCHC 32.1, RDWStd Deviation 52.6 H, RDW Coeff of Kamar 14.4, Plt Count 289,MPV 10.5, Immature Gran % (Auto) 0.300, Neut % (Auto) 75.1 H, Lymph % (Auto) 16.8 L, Burnett % (Auto) 6.5, Eos % (Auto) 0.9, Baso % (Auto) 0.4,Absolute Neuts (auto) 9.0 H, Absolute Lymphs (auto) 2.01, Nucleated RBC % 0 Radiography Diagnostic Testing: Radiology Impression Abdomen/Pelvis CT 11/15/24 12:45 IMPRESSION: Right inguinal hernia containing small bowel loop which is fluid-filled. Fluid is also seen within the herniated sac. Mildly dilated/fluid-filled distal small bowel loops. Sigmoid diverticulosis without evidence of diverticulitis at this time. Extensive atherosclerotic calcification of the abdominal aorta and the major visceral branches. One or more dose reduction techniques were used (e.g., Automated exposure control, adjustment of the mA and/or kV according to patient size, use of iterative reconstruction technique). Reading Location: [place] [address] Physical Exam Narrative She is alert and oriented x 3. She is in no acute distress. Abdomen is soft and appropriately tender. Abdominal binder is in place. Assessment & Plan Assessment/Plan (1) Abdominal pain: PLAN: Plan Postoperative day #1 from a open incisional hernia repair in the right lower quadrant. She is doingwell from my standpoint. I am recommending advancing her diet. If she continues to do well, she could probably be discharged to home later today. Await a.m. blood work 11/16/24 3137 Cosigner Signature (if applicable): CC: ~ Signed [facility]03-11-2025 Discharge summary Author Naa Woodruff [facility] Note Date/Time November 15, 2024 10: 40pm [facility] Medical Records Department [address] [place] [address] Emergency Department Summary 11/15/24 MR#: [id number] Acct: [id number] Name: ADELA WELLS Rep #:[id number] : 1945 79 From: Naa TILLMAN PCP: Dr. Carlo Diaz MD Status:ADM NEISHA [facility] <LAYNE Curry - Last Filed: 11/15/24 17:39> History of Present Illness Chief Complaint: Abd Pain Narrative Narrative: 79-year-old female with PMH of HTN, HLD, COPD, DM2, CHF, hypothyroidism, multiple abdominal surgeries presents with 3 days of abdominal pain. It startedas generalized abdominal pain and then moved to the periumbilical and lower abdomen. She has nausea and decreased appetite but no vomiting. She has not had a bowel movement in 4 to 5 days. She states she usually only goes every fewdays but this is longer than usual. She took 2 doses of Senokot. She is passing gas. She has a history of cholecystectomy, appendectomy, hernia repair,tubal ligation, and hysterectomy. No history of bowel obstruction. She states she has felt a hernia in her abdomen for years but now it is painful. 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 Obesity Atherosclerosis of coronary artery bypass graft without angina pectoris Essential hypertension Type 2 diabetes mellitus without complication Vertigo GERD (gastroesophageal reflux disease) Asthma Hyperlipidemia Hypothyroidism Home Medications ?Medication ?Instructions ?Recorded ?Last Taken ?Type montelukast 10 mg tablet 10 mg PO DAILY PRN ASTHMA 11/13/24 History aspirin 81 mg tablet,delayed 81 mg PO DAILY HEART HEAL TH 11/19/17 11/13/24 History release cetirizine 10 mg tablet (Zyrtec) 10 mg PO DAILY PRN al lergies 02/15/20 06/09/24 History allopurinol 100 mg tablet 100 mg PO DAILY GOUT 2 11/13/24 History ipratropium 20 mcg-albuterol 100 1 puff inhalation Q6H BREATHING 09/20/22 11/13/24 History mcg/actuation mist for inhalation (Combivent Respimat) ferrous sulfate 325 mg (65 mg 325 mg PO DAILY SUPPLEME NT 10/04/22 11/13/24 History iron) tablet furosemide 40 mg tablet (Lasix) 40 mg PO DAILY diureti c 12/25/22 11/13/24 History cholecalciferol (vitamin D3) 25 25 mcg PO SUTUTHSA vit ross 06/05/23 11/13/24 History mcg (1,000 unit) tablet omeprazole 20 mg capsule,delayed 20 mg PO DAILY reflux 11/04/23 11/13/24 History release ezetimibe 10 mg tablet (Zetia) 10 mg PO DAILY 02/27/24 11/13/24 History prednisone 5 mg tablet 5 mg PO DAILY 02/27/2411/13 History albuterol sulfate 2.5 mg/3 mL 1.25 mg inhalation TID P RN 05/09/24 11/15/24 History (0.083 %) solution for nebulization shortness of breat h or wheezing ipratropium bromide 0.02 % 0.5 mg inhalation TID PRN 0 05/09/24 11/13/24 History solution for inhalation shortness of breath or wheez ing biotin 10,000 mcg capsule 10,000 mcg PO DAILY 06/10/24 11/13/24 History folic acid 1 mg tablet 1 mg PO DAILY 06/10/2411/13 History glipizide 2.5 mg tablet, extended 2.5 mg PO BID 11/13/24 History release 24 hr amlodipine 5 mg tablet 5 mg PO DAILY 08/25/2411/13 History spironolactone 25 mg tablet 25 mg PO QDAY HEART 11/13/24 History levothyroxine 100 mcg tablet 100 mcg PO DAILY 11/15/24 11/13/24 History metoprolol tartrate 50 mg tablet 50 mg PO DAILY 11/13/24 History Allergy/AdvReac Type Severity Reaction Status Date / Time Anesthetics - Amide Type - Allergy Other Verified 08/25/24 15:01 Select A (Anesthetics - Amide Type) acetaminophen (From Tylenol) AdvReac Severe Other Verified 08/25/24 15:01 pravastatin AdvReac Intermediate Myalgias Verified 08/25/24 15:01 after 15 years of taking cinnamon AdvReac Unknown Unknown Verified 08/25/24 15:01 Penicillins AdvReac Unknown Unknown Verified 08/25/24 15:01 ezetimibe (From Zetia) AdvReac myalgias Verified 08/25/24 15:01 leflunomide AdvReac Chest Verified 08/25/24 15:04 tightness Family History Mother , age 86, advanced age No problems noted. Father Prostate cancer Surgical History History of coronary artery stent placement (01/26/21) H/O coronary artery bypass surgery (10/11/07) Hx of bilateral cataract extraction History of hysterectomy Hx of appendectomy History of cholecystectomy Social History household members: family housing: house Smoking Status: Never smoker alcohol intake: never substance use type: does not use caffeine: Yes Type: carbonated beverages what type of physical activity do you participate in: none seatbelt use: always do you feel safe at home: Yes ROS <LAYNE Curry - Last Filed: 11/15/24 17:39> ROS ED ROS Narrative Constitutional: Negative for fever, chills, malaise.. GI: Positive for nausea, abdominal pain, constipation. : Negative for dysuria, hematuria or frequency. EXAM <LAYNE Curry - Last Filed: 11/15/24 17:39> Physical Exam Narrative Exam Narrative: CONST: Patient sitting in no acute distress. EYES: Normal inspection. NECK: Normal inspection. RESP: No respiratory distress, CTAB. CVS: Regular rate and rhythm, no murmur, no gallop. ABD: Firm palpable hernia right lower abdomen that is not reducible. Otherwise abdomen is soft and nontender. No peritoneal signs. SKIN: Color normal, no rash, warm, dry, intact. EXTREMITIES: Normal appearance, no pedal edema. NEURO: Alert and answering questions appropriately. PSYCH: Normal affect. Const Vital Signs: 11/15/24 11:41 11/15/24 13:09 11/15/24 14:20 Temperature 97.8 F 98.1 F 98 F Temperature Source Temporal Oral Pulse Rate 78 69 68 Respiratory Rate 16 16 18 Blood Pressure 127/65 H 140/52 H 141/48 H Blood Pressure Mean 85 81 79 Pulse Ox 100 100 99 Oxygen Delivery Method Room Air Room Air 11/15/24 14:42 11/15/24 15:37 Temperature 98 F Temperature Source Pulse Rate 67 67 Respiratory Rate 16 16 Blood Pressure 141/48 H Blood Pressure Mean Pulse Ox 99 Oxygen Delivery Method <Dr. Alphonso Brandon DO - Last Filed: 11/15/24 22:40> Physical Exam Const Vital Signs: 11/15/24 11:41 11/15/24 13:09 11/15/24 14:20 Temperature 97.8 F 98.1 F 98 F Temperature Source Temporal Oral Pulse Rate 78 69 68 Respiratory Rate 16 16 18 Blood Pressure 127/65 H 140/52 H 141/48 H Blood Pressure Mean 85 81 79 Pulse Ox 100 100 99 Oxygen Delivery Method Room Air Room Air 11/15/24 14:42 11/15/24 15:37 Temperature 98 F Temperature Source Pulse Rate 67 67 Respiratory Rate 16 16 Blood Pressure 141/48 H Blood Pressure Mean Pulse Ox 99 Oxygen Delivery Method MDM <LAYNE Curry - Last Filed: 11/15/24 17:39> [facility] Narrative Medical decision making narrative: History gathered from: Patient and her daughter Differential includes but not limited to constipation, obstruction, diverticulitis Consults: General Surgery 79-year-old female presents with 3 days of generalized abdominal pain, nausea, and constipation. She is passing flatus. She appears well and nontoxic. Vitalsigns stable. Abdomen soft with a palpable firm hernia right lower quadrant that is not reducible. No peritoneal signs. No overlying skin changes. Labs show WBC of 13.6, hemoglobin 11.7, electrolytes unremarkable. BUN 38, creatinine 2.36. Lactate is 2.1. CT shows a right inguinal hernia containing afluid-filled small bowel loop with mild distended distal small bowel loops. I consulted general surgery and Dr. Mendoza evaluated in the emergency room and admitted the patient. She went ED to the OR. Lab Data Attestation: I reviewed the patient's lab results. Labs: Laboratory Results - last 24 hr 11/15/24 11/15/24 11/15/24 12:00 12:10 13:20 WBC 13.6 H RBC 3.72 L Hgb 11.7 L Hct 36.4 L MCV 97.8 MCH 31.5 MCHC 32.1 RDW Std Deviation 51.2 H RDW Coeff of Kamar 14.2 Plt Count 341 MPV 10.2 Immature Gran % (Auto) 0.400 Neut % (Auto) 61.8 Lymph % (Auto) 29.8 Burnett % (Auto) 6.2 Eos % (Auto) 1.4 Baso % (Auto) 0.4 Absolute Neuts (auto) 8.4 H Absolute Lymphs (auto) 4.06 Nucleated RBC % 0 Sodium 135 Potassium 4.2 Chloride 101 Carbon Dioxide 19.5 L Anion Gap 14 BUN 38 H Creatinine 2.36 H Estim Creat Clear Calc 17.54 L Est GFR (MDRD) Non-Af 20 L BUN/Creatinine Ratio 16.1 Glucose 164 H Lactic Acid 2.1 H Calcium 9.1 Total Bilirubin 0.47 AST 23 ALT 14 Alkaline Phosphatase 109 H Total Protein 7.1 Albumin 3.7 Globulin 3.4 Albumin/Globulin Ratio 1.1 Urine Color Yellow Urine Clarity Sl. Cloudy Urine pH 6.0 Ur Specific [place] 1.015 Urine Protein 30 H Urine Glucose (UA) Normal Urine Ketones Negative Urine Occult Blood 10 H Urine Nitrite Negative Urine Bilirubin Negative Urine Urobilinogen Normal Ur Leukocyte Esterase 500 H Urine RBC 5-10 SEEN Urine WBC >100 SEEN Ur Squamous Epith Cells 10-25 SEEN Urine Bacteria 1+ Hyaline Casts 0-5 SEEN Urine Mucus 0 SEEN Radiography Diagnostic Testing: Clinical Impression(s) from Imaging Studies Abdomen/Pelvis CT 11/15/24 12:45 IMPRESSION: Right inguinal hernia containing small bowel loop which is fluid-filled. Fluid is also seen within the herniated sac. Mildly dilated/fluid-filled distal small bowel loops. Sigmoid diverticulosis without evidence of diverticulitis at this time. Extensive atherosclerotic calcification of the abdominal aorta and the major visceral branches. One or more dose reduction techniques were used (e.g., Automated exposure control, adjustment of the mA and/or kV according to patient size, use of iterative reconstruction technique). Reading Location: [facility] <Dr. Alphonso Brandon, DO - Last Filed: 11/15/24 22:40> [facility] Narrative Medical decision making narrative: History gathered from: Patient and her daughter Differential includes but not limited to constipation, obstruction, diverticulitis Consults: General Surgery 79-year-old female presents with 3 days of generalized abdominal pain, nausea, and constipation. She is passing flatus. She appears well and nontoxic. Vitalsigns stable. Abdomen soft with a palpable firm hernia right lower quadrant that is not reducible. No peritoneal signs. No overlying skin changes. Labs show WBC of 13.6, hemoglobin 11.7, electrolytes unremarkable. BUN 38, creatinine 2.36. Lactate is 2.1. CT shows a right inguinal hernia containing afluid-filled small bowel loop with mild distended distal small bowel loops. I consulted general surgery and Dr. Mendoza evaluated in the emergency room and admitted the patient. She went ED to the OR. Supervisory Physician Note Patient was seen and examined with the Advanced Practice Provider. Nursing notesand vital signs have been reviewed. Pertinent old records have been reviewed. I agree with the essential elements of the EM's history, physical exam, assessment, and plan. The differential diagnosis and management options were discussed with the EM. I participated in determining and agree with the management, procedures, final impression and disposition as documented. See changes noted by me. Please see addendum or separate note for any additional details. Impression: 1. Small bowel obstruction secondary to incarcerated hernia 2. Lactic acidosis 3. CKD 4. Chronic anemia Lab Data Labs: Laboratory Results - last 24 hr 11/15/24 11/15/24 11/15/24 12:00 12:10 13:20 WBC 13.6 H RBC 3.72 L Hgb 11.7 L Hct 36.4 L MCV 97.8 MCH 31.5 MCHC 32.1 RDW Std Deviation 51.2 H RDW Coeff of Kamar 14.2 Plt Count 341 MPV 10.2 Immature Gran % (Auto) 0.400 Neut % (Auto) 61.8 Lymph % (Auto) 29.8 Burnett % (Auto) 6.2 Eos % (Auto) 1.4 Baso % (Auto) 0.4 Absolute Neuts (auto) 8.4 H Absolute Lymphs (auto) 4.06 Nucleated RBC % 0 Sodium 135 Potassium 4.2 Chloride 101 Carbon Dioxide 19.5 L Anion Gap 14 BUN 38 H Creatinine 2.36 H Estim Creat Clear Calc 17.54 L Est GFR (MDRD) Non-Af 20 L BUN/Creatinine Ratio 16.1 Glucose 164 H Lactic Acid 2.1 H Calcium 9.1 Total Bilirubin 0.47 AST 23 ALT 14 Alkaline Phosphatase 109 H Total Protein 7.1 Albumin 3.7 Globulin 3.4 Albumin/Globulin Ratio 1.1 Urine Color Yellow Urine Clarity Sl. Cloudy Urine pH 6.0 Ur Specific [place] 1.015 Urine Protein 30 H Urine Glucose (UA) Normal Urine Ketones Negative Urine Occult Blood 10 H Urine Nitrite Negative Urine Bilirubin Negative Urine Urobilinogen Normal Ur Leukocyte Esterase 500 H Urine RBC 5-10 SEEN Urine WBC >100 SEEN Ur Squamous Epith Cells 10-25 SEEN Urine Bacteria 1+ Hyaline Casts 0-5 SEEN Urine Mucus 0 SEEN Radiography Diagnostic Testing: Clinical Impression(s) from Imaging Studies Abdomen/Pelvis CT 11/15/24 12:45 IMPRESSION: Right inguinal hernia containing small bowel loop which is fluid-filled. Fluid is also seen within the herniated sac. Mildly dilated/fluid-filled distal small bowel loops. Sigmoid diverticulosis without evidence of diverticulitis at this time. Extensive atherosclerotic calcification of the abdominal aorta and the major visceral branches. One or more dose reduction techniques were used (e.g., Automated exposure control, adjustment of the mA and/or kV according to patient size, use of iterative reconstruction technique). Reading Location: [facility] Discharge Plan Dx/Rx/DC Orders Clinical Impression: Incarcerated hernia of abdominal cavity, Abdominal pain, Elevated lactic acid level Disposition Disposition: Acute Care Hospital [facility] Discharge Date/Time: 11/15/24 15:40 What to do if you have Problems For any increased pain, shortness of breath, bleeding, nausea or vomiting, chestpain, or any unexpected problems, contact your Primary Care Provider. Call [facility] ([phone]) or report to the closest Emergency Room. Call 911 if necessary. 11/15/24 1739 <Electronically signed by Naa TILLMAN> Cosigner Signature (if applicable): 11/15/24 2240 <Electronically signed by Alphonso Brandon DO> CC: Dr. Carlo Diaz MD ~ Signed [facility] Work Phone: [phone] 576-601303-10-2025 Discharge summary [facility] Medical Records Department [address] [place] [address] Emergency Department Summary 11/15/24 MR#: [id number] Acct: [id number] Name: ADELA WELLS Rep #:[id number] : 1945 79 From: Naa TILLMAN PCP: Dr. Carlo Diaz MD Status:ADM NEISHA Location: [facility] [facility] [id number] HPI History of Present Illness Chief Complaint: Abd Pain Narrative Narrative: 79-year-old female with PMH of HTN, HLD, COPD, DM2, CHF, hypothyroidism, multiple abdominal surgeries presents with 3 days of abdominal pain. It startedas generalized abdominal pain and then moved tothe periumbilical and lower abdomen. She has nausea and decreased appetite but no vomiting. She hasnot had a bowel movement in 4 to 5 days. She states she usually only goes every fewdays but this islonger than usual. She took 2 doses of Senokot. She is passing gas. She has a history of cholecystectomy, appendectomy, hernia repair,tubal ligation, and hysterectomy. No history of bowel obstruction. She states she has felt a hernia in her abdomen for years but now it is painful. [facility] Medical History Incarcerated hernia of abdominal cavity CHF (congestive heart failure) Anemia NSTEMI (non-ST elevated myocardial infarction) Cardiomyopathy COVID-19 (~04/2022) Insect bite History of non-ST elevation myocardial infarction (NSTEMI) (01/26/21) COPD (chronic obstructive pulmonary disease) Morbid obesity TIA (transient ischemic attack) Arm paresthesia, right CKD (chronic kidney disease) Atherosclerotic heart disease of teller coronary artery without angina 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 Obesity Atherosclerosis of coronary artery bypass graft without angina pectoris Essential hypertension Type 2 diabetes mellitus without complication Vertigo GERD (gastroesophageal reflux disease) Asthma Hyperlipidemia Hypothyroidism Home Medications ?Medication ?Instructions ?Recorded ?Last Taken ?Type montelukast 10 mg tablet 10 mg PO DAILY PRN ASTHMA 11/13/24 History aspirin 81 mg tablet,delayed 81 mg PO DAILY HEART HEAL TH 11/19/17 11/13/24 History release cetirizine 10 mg tablet (Zyrtec) 10 mg PO DAILY PRN al lergies 02/15/20 06/09/24 History allopurinol 100 mg tablet 100 mg PO DAILY GOUT 2 11/13/24 History ipratropium 20 mcg-albuterol 100 1 puff inhalation Q6H BREATHING 09/20/22 11/13/24 History mcg/actuation mist for inhalation (Combivent Respimat) ferrous sulfate 325 mg (65 mg 325 mg PO DAILY SUPPLEME NT 10/04/22 11/13/24 History iron) tablet furosemide 40 mg tablet (Lasix) 40 mg PO DAILY diureti c 12/25/22 11/13/24 History cholecalciferol (vitamin D3) 25 25 mcg PO SUTUTHSA vit ross 06/05/23 11/13/24 History mcg (1,000 unit) tablet omeprazole 20 mg capsule,delayed 20 mg PO DAILY reflux 11/04/23 11/13/24 History release ezetimibe 10 mg tablet (Zetia) 10 mg PO DAILY 02/27/24 11/13/24 History prednisone 5 mg tablet 5 mg PO DAILY 02/27/2411/13 History albuterol sulfate 2.5 mg/3 mL 1.25 mg inhalation TID P RN 05/09/24 11/15/24 History (0.083 %) solution for nebulization shortness of breat h or wheezing ipratropium bromide 0.02 % 0.5 mg inhalation TID PRN 0 05/09/24 11/13/24 History solution for inhalation shortness of breath or wheez ing biotin 10,000 mcg capsule 10,000 mcg PO DAILY 06/10/24 11/13/24 History folic acid 1 mg tablet 1 mg PO DAILY 06/10/2411/13 History glipizide 2.5 mg tablet, extended 2.5 mg PO BID 11/13/24 History release 24 hr amlodipine 5 mg tablet 5 mg PO DAILY 08/25/2411/13 History spironolactone 25 mg tablet 25 mg PO QDAY HEART 11/13/24 History levothyroxine 100 mcg tablet 100 mcg PO DAILY 11/15/24 11/13/24 History metoprolol tartrate 50 mg tablet 50 mg PO DAILY 11/13/24 History Allergy/AdvReac Type Severity Reaction Status Date / Time Anesthetics - Amide Type - Allergy Other Verified 08/25/24 15:01 Select A (Anesthetics - Amide Type) acetaminophen (From Tylenol) AdvReac Severe Other Verified 08/25/24 15:01 pravastatin AdvReac Intermediate Myalgias Verified 08/25/24 15:01 after 15 years of taking cinnamon AdvReac Unknown Unknown Verified 08/25/24 15:01 Penicillins AdvReac Unknown Unknown Verified 08/25/24 15:01 ezetimibe (From Zetia) AdvReac myalgias Verified 08/25/24 15:01 leflunomide AdvReac Chest Verified 08/25/24 15:04 tightness Family History Mother , age 86, advanced age No problems noted. Father Prostate cancer Surgical History History of coronary artery stent placement (01/26/21) H/O coronary artery bypass surgery (10/11/07) Hx of bilateral cataract extraction History of hysterectomy Hx of appendectomy History of cholecystectomy Social History household members: family housing: house Smoking Status: Never smoker alcohol intake: never substance use type: does not use caffeine: Yes Type: carbonated beverages what type of physical activity do you participate in: none seatbelt use: always do you feel safe at home: Yes ROS ROS ED ROS Narrative Constitutional: Negative for fever, chills, malaise.. GI: Positive for nausea, abdominal pain, constipation. : Negative for dysuria, hematuria or frequency. EXAM Physical Exam Narrative Exam Narrative: CONST: Patient sitting in no acute distress. EYES: Normal inspection. NECK: Normal inspection. RESP: No respiratory distress, CTAB. CVS: Regular rate and rhythm, no murmur, no gallop. ABD: Firm palpable hernia right lower abdomen that is not reducible. Otherwise abdomen is soft and nontender. No peritoneal signs. SKIN: Color normal, no rash, warm, dry, intact. EXTREMITIES: Normal appearance, no pedal edema. NEURO: Alert and answering questions appropriately. PSYCH: Normal affect. Const Vital Signs: 11/15/24 11:41 11/15/24 13:09 11/15/24 14:20 Temperature 97.8 F 98.1 F 98 F Temperature Source Temporal Oral Pulse Rate 78 69 68 Respiratory Rate 16 16 18 Blood Pressure 127/65 H 140/52 H 141/48 H Blood Pressure Mean 85 81 79 Pulse Ox 100 100 99 Oxygen Delivery Method Room Air Room Air 11/15/24 14:42 11/15/24 15:37 Temperature 98 F Temperature Source Pulse Rate 67 67 Respiratory Rate 16 16 Blood Pressure 141/48 H Blood Pressure Mean Pulse Ox 99 Oxygen Delivery Method Physical Exam Const Vital Signs: 11/15/24 11:41 11/15/24 13:09 11/15/24 14:20 Temperature 97.8 F 98.1 F 98 F Temperature Source Temporal Oral Pulse Rate 78 69 68 Respiratory Rate 16 16 18 Blood Pressure 127/65 H 140/52 H 141/48 H Blood Pressure Mean 85 81 79 Pulse Ox 100 100 99 Oxygen Delivery Method Room Air Room Air 11/15/24 14:42 11/15/24 15:37 Temperature 98 F Temperature Source Pulse Rate 67 67 Respiratory Rate 16 16 Blood Pressure 141/48 H Blood Pressure Mean Pulse Ox 99 Oxygen Delivery Method MDM MDM MDM Narrative Medical decision making narrative: History gathered from: Patient and her daughter Differential includes but not limited to constipation, obstruction, diverticulitis Consults: General Surgery 79-year-old female presents with 3 days of generalized abdominal pain, nausea, and constipation. She is passing flatus. She appears well and nontoxic. Vitalsigns stable. Abdomen soft with a palpable firm hernia right lower quadrant that is not reducible. No peritoneal signs. No overlying skin changes. Labs show WBC of 13.6, hemoglobin 11.7, electrolytes unremarkable. BUN 38, creatinine 2.36. Lactate is 2.1. CT shows a right inguinal hernia containing afluid-filled small bowel loop with mild distended distal small bowel loops. I consulted general surgery and Dr. Mendoza evaluated in the emergency room and admitted the patient. She went ED to the OR. Lab Data Attestation: I reviewed the patient's lab results. Labs: Laboratory Results - last 24 hr 11/15/24 11/15/24 11/15/24 12:00 12:10 13:20 WBC 13.6 H RBC 3.72 L Hgb 11.7 L Hct 36.4 L MCV 97.8 MCH 31.5 MCHC 32.1 RDW Std Deviation 51.2 H RDW Coeff of Kamar 14.2 Plt Count 341 MPV 10.2 Immature Gran % (Auto) 0.400 Neut % (Auto) 61.8 Lymph % (Auto) 29.8 Burnett % (Auto) 6.2 Eos % (Auto) 1.4 Baso % (Auto) 0.4 Absolute Neuts (auto) 8.4 H Absolute Lymphs (auto) 4.06 Nucleated RBC % 0 Sodium 135 Potassium 4.2 Chloride 101 Carbon Dioxide 19.5 L Anion Gap 14 BUN 38 H Creatinine 2.36 H Estim Creat Clear Calc 17.54 L Est GFR (MDRD) Non-Af 20 L BUN/Creatinine Ratio 16.1 Glucose 164 H Lactic Acid 2.1 H Calcium 9.1 Total Bilirubin 0.47 AST 23 ALT 14 Alkaline Phosphatase 109 H Total Protein 7.1 Albumin 3.7 Globulin 3.4 Albumin/Globulin Ratio 1.1 Urine Color Yellow Urine Clarity Sl. Cloudy Urine pH 6.0 Ur Specific [place] 1.015 Urine Protein 30 H Urine Glucose (UA) Normal Urine Ketones Negative Urine Occult Blood 10 H Urine Nitrite Negative Urine Bilirubin Negative Urine Urobilinogen Normal Ur Leukocyte Esterase 500 H Urine RBC 5-10 SEEN Urine WBC >100 SEEN Ur Squamous Epith Cells 10-25 SEEN Urine Bacteria 1+ Hyaline Casts 0-5 SEEN Urine Mucus 0 SEEN Radiography Diagnostic Testing: Clinical Impression(s) from Imaging Studies Abdomen/Pelvis CT 11/15/24 12:45 IMPRESSION: Right inguinal hernia containing small bowel loop which is fluid-filled. Fluid is also seen within the herniated sac. Mildly dilated/fluid-filled distal small bowel loops. Sigmoid diverticulosis without evidence of diverticulitis at this time. Extensive atherosclerotic calcification of the abdominal aorta and the major visceral branches. One or more dose reduction techniques were used (e.g., Automated exposure control, adjustment of the mA and/or kV according to patient size, use of iterative reconstruction technique). Reading Location: [address] MDM Narrative Medical decision making narrative: History gathered from: Patient and her daughter Differential includes but not limited to constipation, obstruction, diverticulitis Consults: General Surgery 79-year-old female presents with 3 days of generalized abdominal pain, nausea, and constipation. She is passing flatus. She appears well and nontoxic. Vitalsigns stable. Abdomen soft with a palpable firm hernia right lower quadrant that is not reducible. No peritoneal signs. No overlying skin changes. Labs show WBC of 13.6, hemoglobin 11.7, electrolytes unremarkable. BUN 38, creatinine 2.36. Lactate is 2.1. CT shows a right inguinal hernia containing afluid-filled small bowel loop with mild distended distal small bowel loops. I consulted general surgery and Dr. Mendoza evaluated in the emergency room and admitted the patient. She went ED to the OR. Supervisory Physician Note Patient was seen and examined with the Advanced Practice Provider. Nursing notesand vital signs have been reviewed. Pertinent old records have been reviewed. I agree with the essential elements of the EM's history, physical exam, assessment, and plan. The differential diagnosis and management options were discussed with the EM. I participated in determining and agree with the management, procedures, final impression and disposition as documented. See changes noted by me. Please see addendum or separate note for any additional details. Impression: 1. Small bowel obstruction secondary to incarcerated hernia 2. Lactic acidosis 3. CKD 4. Chronic anemia Lab Data Labs: Laboratory Results - last 24 hr 11/15/24 11/15/24 11/15/24 12:00 12:10 13:20 WBC 13.6 H RBC 3.72 L Hgb 11.7 L Hct 36.4 L MCV 97.8 MCH 31.5 MCHC 32.1 RDW Std Deviation 51.2 H RDW Coeff of Kamar 14.2 Plt Count 341 MPV 10.2 Immature Gran % (Auto) 0.400 Neut % (Auto) 61.8 Lymph % (Auto) 29.8 [place]ett % (Auto) 6.2 Eos % (Auto) 1.4 Baso % (Auto) 0.4 Absolute Neuts (auto) 8.4 H Absolute Lymphs (auto) 4.06 Nucleated RBC % 0 Sodium 135 Potassium 4.2 Chloride 101 Carbon Dioxide 19.5 L Anion Gap 14 BUN 38 H Creatinine 2.36 H Estim Creat Clear Calc 17.54 L Est GFR (MDRD) Non-Af 20 L BUN/Creatinine Ratio 16.1 Glucose 164 H Lactic Acid 2.1 H Calcium 9.1 Total Bilirubin 0.47 AST 23 ALT 14 Alkaline Phosphatase 109 H Total Protein 7.1 Albumin 3.7 Globulin 3.4 Albumin/Globulin Ratio 1.1 Urine Color Yellow Urine Clarity Sl. Cloudy Urine pH 6.0 Ur Specific [place] 1.015 Urine Protein 30 H Urine Glucose (UA) Normal Urine Ketones Negative Urine Occult Blood 10 H Urine Nitrite Negative Urine Bilirubin Negative Urine Urobilinogen Normal Ur Leukocyte Esterase 500 H Urine RBC 5-10 SEEN Urine WBC >100 SEEN Ur Squamous Epith Cells 10-25 SEEN Urine Bacteria 1+ Hyaline Casts 0-5 SEEN Urine Mucus 0 SEEN Radiography Diagnostic Testing: Clinical Impression(s) from Imaging Studies Abdomen/Pelvis CT 11/15/24 12:45 IMPRESSION: Right inguinal hernia containing small bowel loop which is fluid-filled. Fluid is also seen within the herniated sac. Mildly dilated/fluid-filled distal small bowel loops. Sigmoid diverticulosis without evidence of diverticulitis at this time. Extensive atherosclerotic calcification of the abdominal aorta and the major visceral branches. One or more dose reduction techniques were used (e.g., Automated exposure control, adjustment of the mA and/or kV according to patient size, use of iterative reconstruction technique). Reading Location: [facility] Discharge Plan Dx/Rx/DC Orders Clinical Impression: Incarcerated hernia of abdominal cavity, Abdominal pain, Elevated lactic acid level Disposition Disposition: Acute Care Hospital [facility] Discharge Date/Time: 11/15/24 15:40 What to do if you have Problems For any increased pain, shortness of breath, bleeding, nausea or vomiting, chestpain, or any unexpected problems, contact your Primary Care Provider. Call [facility] ([phone]) or report tothe closest Emergency Room. Call 911 if necessary. 11/15/241738 Cosigner Signature (if applicable): 11/15/242239 CC: Dr. Carlo Diaz MD ~ Signed [facility]03-10-2025 Consult note Author Erasmo Ramírez [facility] Note Date/Time November 15, 2024 5:5 9pm [facility] Medical Records Department [address] [place] [address] Anesthesia Postop Eval I 11/15/241757 MR#: [id number] Acct: [id number] Name: ADELA WELLS Rep #:[id number] : 1945 79 From: Erasmo Ramírez MD PCP: Dr. Carlo Diaz MD Status:REG [facility] Y Race: C Location: Anesthesia: Postop Eval I Current Vital Signs Temperature: 97.4 F Pulse Rate: 75 Blood Pressure: 138/60 Respiratory Rate: 16 Pulse Ox: 100 Oxygen Flow Rate (L/min): 2 Assessment Airway patent: Yes Spontaneous unlabored respirations: Yes nausea: No Vomiting: No Anesthesia Complication: No Fluid Hydration Crystalloid volume administer (ml): 1,000 Total IV fluid infused: 1,000 Progress Note Anesthesia document: Postop Eval 1 completed: Yes 11/15/241758 <Electronically signed by Erasmo Ramírez MD > Date _ Erasmo Ramírez MD Cosigner Signature: Date CC: ~ Signed [facility] Work Phone: 1(693) 538-690303-10-2025 Consult note Author Erasmo Ramírez [facility] Note Date/Time November 15, 2024 5:5 9pm [facility] Medical Records Department [address] [place] [address] Anesthesia Postop Eval II 11/15/24 175 MR#: [id number] Acct: [id number] Name: ADELA WELLS Rep #:[id number] : 1945 79 From: Erasmo Ramírez MD PCP: Dr. Carlo Diaz MD Status:REG [facility] Y Race: C Location: Anesthesia Postop Eval I Sum Postop Eval Completion status Anesthesia document: Postop Eval 1 completed: Yes Anesthesia Postop Eval I Summary Anesthesia Postop Eval I Summary: Anesthesia Postop Eval I: Assessment Summary Airway patent Yes 11/15/24 17:59 Spontaneous unlabored Yes 11/15/24 17:59 respirations Mental status nausea No 11/15/24 17:59 Vomiting No 11/15/24 17:59 Anesthesia Postop Eval I: Fluid Summary Crystalloid volume administer 1,000 11/15/24 17:59 (ml) Colloids volume administered ( ml) Blood Product volume administered (ml) Total IV fluid infused 1,000 11/15/24 17:59 Anesthesia Postop Eval I: Summary Notes Anesthesia Complication No 11/15/24 17:59 Anesthesia Complication Comment: Post-operative progress note Anesthesia: Postop Eval II Evaluation Mental status: Awake Pain Level: 2 nausea: No Vomiting: No 11/15/241758 <Electronically signed by Erasmo Ramírez MD > Date _ Erasmo Alcantar Signature: Date CC: ~ Signed [facility] Work Phone: 1(739) 229-279403-10-2025 Evaluation note* Diagnosis Onset Date Resolution Status Admit Date Abdominal pain resolved November 5:43pm Incarcerated hernia of abdominal cavity resolved November 15 5:43pm Incarcerated ventral hernia acute December 09, 2024 2:10pm [facility] Work Phone: [phone]) 170-959003-10-2025 Evaluation note* Diagnosis Onset Date Resolution Status Admit Date Abdominal pain resolved November 5:43pm Incarcerated hernia of abdominal cavity resolved November 15 5:43pm Incarcerated ventral hernia acute December 09, 2024 2:10pm Cardiomyopathy inactive February 10, 2025 1:10pm Essential hypertension inactive 2024 1:10pm History of coronary artery stent placement January 26, 2021 inactive February 10, 2025 1:10pm Hyperlipidemia inactive February 10, 2025 1:10pm [facility] Work Phone: [phone]) 679-410703-10-2025 Procedure note [facility] Medical Records Department [address] [place] [id number] Operative Report 11/15/24 1839 MR#: [id number] Acct: [id number] Name: ADELA WELLS Rep #:[id number] : 1945 79 From: Juancho Mendoza MD PCP: Dr. Carlo Diaz MD Status:ADM NEISHA Location: [facility] [id number] Procedures Digestive 40xxx-49xxx: 31879 RPR AA HRN 11-15 NCR/STRN Operative Report (Standard) Operative Information Date of Procedure: 11/15/24 Pre-Operative Diagnosis: Incarcerated ventral hernia Post-Operative Diagnosis: Same Surgery/Procedure Performed: Open right lower quadrant ventral hernia repair conference services coordinator: Yes Tabber: Huber Scruggs Tasks completed by culture media laboratory assistant: Closing, Hemostasis: Electrocautery and Retracting Additional pediatric dental assistant?: No Type of Anesthesia: General RN Documented Start/Stop Times: Operation Date: 11/15/24 15:45 Case Time Into Pre-Op 11/15/24 15:45 Anesthesia Start 11/15/24 16:07 Into Room 11/15/24 16:07 Procedure Start 11/15/24 16:30 Procedure End 11/15/24 17:45 Anesthesia End 11/15/24 17:50 Out of Room 11/15/24 17:50 Into Recovery 11/15/24 17:53 Out of Recovery 11/15/24 18:32 Procedure Start Time: 16:30 Procedure Stop Time: 17:45 Select all DRAINS/GRAFTS/IMPLANTS that apply: None Special Medications: Ancef IV Estimated Blood Loss: 25 mL Specimen collected: Yes Description of specimen(s) removed: Hernia sac Description of surgery: The patient is an 79-year-old female who presents to the emergency department earlier today with about 3 days of abdominal pain along with nausea. ER workup included CT scan which showed what appeared to be incarcerated right lower quadrant hernia containing a small segment of small bowel possibly related to a small bowel obstruction. Patient had known that she had a hernia but this really had not caused her any pain or problems until a few days ago. Surgical repair was offered to her as this was not reducible. We discussed the details of the planned surgery including risk benefits and alternatives. She wished to proceed. Patient was brought to the op room today following informed consent. Antibiotics were given and a timeout was performed. She was placed supine on the operative table with arms outstretched on arm boards. The abdomen is then prepped and draped in the usual sterile manner. A transverse incision was made overlying the hernia. Bovie electrocautery was then used dissect down through subcutaneous tissues. The overall size of the hernia was about 7 to 8 cm however the fascial defect seemed probably closer to 3 to 4 cm. The entire hernia sac was cleared down to the neck of the hernia. At this point the herniasac was incised. This contained mostly fat. On CT scan there was a loop of bowel but this seemed to have spontaneously reduced by this point. I suspect when she was asleep this may have reduced. The hernia sac was excised along with some of the adherent contents which was mostly omentum. This omentum was transected and tied using 0 Vicryl suture. The small bowel in this vicinity was brought up through the fascial defect. I did extend the fascia several centimeters in order to visualize the bowel. There was clearly a knuckle of bowel that was chronically kinked as there were adhesions.This adhesions were taken down using rectal cautery. The bowel was clearly viable and healthy. Thiswas returned back to the abdomen and the fascial defect was closed primarily using #1 Ethibond. These were placed in a interrupted [id number]. This closed the fascial defect nicely. The wound was then copiously irrigated. Hemostasis was excellent. The wound was then closed in layers using3-0 Vicryl and then 4-0 Vicryl was run in the skin. Skin glue was then applied. A Mepilex dressing was applied on top of this. And then finally an abdominal binder was applied. She was awakened from anesthesia and taken to recovery in good condition. A ENROLLMENT CONSULTANT was utilized as a assistant nurse manager. Her role included retraction and assistance with wound closure. Surgical Findings: Right lower quadrant hernia. Fascial defect size is about 3 cm Complications Complications: No Admit VTE Documentation VTE Present on Admission: No VTE Mechan Device Prophylaxis: SCD's VTE Pharm Prophylaxis ordered?: No Reason prophylaxis not ordered: Treatment Not Indicated 11/15/24 1847 Cosigner Signature (if applicable): CC: Dr. Carlo Diaz MD; Dr. Juancho Mendoza MD~ Signed [facility]03-10-2025 Consult note [facility] Medical Records Department [address] [place] [address] Anesthesia Postop Eval I 11/15/24 1758 MR#: [id number] Acct: [id number] Name: ADELA WELLS Rep #:[id number] : 1945 79 From: Erasmo Ramírez MD PCP: Dr. Carlo Diaz MD Status:REG [facility] Y Race: C Location: Anesthesia: Postop Eval I Current Vital Signs Temperature: 97.4 F Pulse Rate: 75 Blood Pressure: 138/60 Respiratory Rate: 16 Pulse Ox: 100 Oxygen Flow Rate (L/min): 2 Assessment Airway patent: Yes Spontaneous unlabored respirations: Yes nausea: No Vomiting: No Anesthesia Complication: No Fluid Hydration Crystalloid volume administer (ml): 1,000 Total IV fluid infused: 1,000 Progress Note Anesthesia document: Postop Eval 1 completed: Yes 11/15/241758 > Date _ [facility]: Date CC: ~ Signed [facility]03-10-2025 Consult note [facility] Medical Records Department [address] [place] [address] Anesthesia Postop Eval II 11/15/241758 MR#: [id number] Acct: [id number] Name: ADELA WELLS Rep #:[id number] : 1945 79 From: Erasmo Ramírez MD PCP: Dr. Carlo Diaz MD Status:REG [facility] Y Race: C Location: Anesthesia Postop Eval I Sum Postop Eval Completion status Anesthesia document: Postop Eval 1 completed: Yes Anesthesia Postop Eval I Summary Anesthesia Postop Eval I Summary: Anesthesia Postop Eval I: Assessment Summary Airway patent Yes 11/15/24 17:59 Spontaneous unlabored Yes 11/15/24 17:59 respirations Mental status nausea No 11/15/24 17:59 Vomiting No 11/15/24 17:59 Anesthesia Postop Eval I: Fluid Summary Crystalloid volume administer 1,000 11/15/24 17:59 (ml) Colloids volume administered ( ml) Blood Product volume administered (ml) Total IV fluid infused 1,000 11/15/24 17:59 Anesthesia Postop Eval I: Summary Notes Anesthesia Complication No 11/15/24 17:59 Anesthesia Complication Comment: Post-operative progress note Anesthesia: Postop Eval II Evaluation Mental status: Awake Pain Level: 2 nausea: No Vomiting: No 11/15/241758 > Date _ Erasmo Alcantar Signature: Date CC: ~ Signed [facility]03-10-2025 History and physical note Author Juancho Mendoza [facility] Note Date/Time November 15, 2024 3:4 3pm [facility] Medical Records Department [address] [place] [address] History & Physical Exam 11/15/24 1536 MR#: [id number] Acct: [id number] Name: ADELA WELLS Rep #:[id number] : 1945 79 From: Juancho Mendoza MD PCP: Dr. Carlo Diaz MD Status:[facility] Location: HPI - General General Date of Admission: 11/15/24 Date of Service: 11/15/24 Chief Complaint: Incarcerated abdominal hernia HPI Narrative The patient is an 79-year-old female with past medical history of hypertension hyperlipidemia, COPD, diabetes, CHF, hypothyroidism. She has had multiple abdominal surgeries in the past. She presents to the emergency department with about 3-day history of abdominal pain. She states that the pain initially begancentrally but then seems to be more focused in the lower abdomen. She has a known hernia in the right lower quadrant. It sounds as though this is nonreducible and has been the case for years. Prior to 3 days ago, this really has not caused her any issues or problems. She states that she has had nausea and decreased appetite. No vomiting. She states that she has not had a bowel movement in several days. She complains of quite a bit of pain in the site of the hernia. Her previous surgeries include a cholecystectomy, appendectomy, left-sided abdominal hernia repair, tubal ligation, and hysterectomy. She was seen evaluate by the ER staff. White count was somewhat elevated. Her creatinine is elevated as well. CT scan revealed a hernia in the right lower quadrant. This was read as an inguinal hernia however this seems clinically andradiographically to be slightly higher. [facility] Medical History (Updated 11/15/24 @ 15:[address] 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 Obesity Atherosclerosis of coronary artery bypass graft without angina pectoris Essential hypertension Type 2 diabetes mellitus without complication Vertigo GERD (gastroesophageal reflux disease) Asthma Hyperlipidemia Hypothyroidism Home Medications ?Medication ?Instructions ?Recorded ?Last Taken ?Type montelukast 10 mg tablet 10 mg PO DAILY PRN ASTHMA 11/13/24 History aspirin 81 mg tablet,delayed 81 mg PO DAILY HEART HEAL TH 11/19/17 11/13/24 History release cetirizine 10 mg tablet (Zyrtec) 10 mg PO DAILY PRN al lergies 02/15/20 06/09/24 History allopurinol 100 mg tablet 100 mg PO DAILY GOUT 2 11/13/24 History ipratropium 20 mcg-albuterol 100 1 puff inhalation Q6H BREATHING 09/20/22 11/13/24 History mcg/actuation mist for inhalation (Combivent Respimat) ferrous sulfate 325 mg (65 mg 325 mg PO DAILY SUPPLEME NT 10/04/22 11/13/24 History iron) tablet furosemide 40 mg tablet (Lasix) 40 mg PO DAILY diureti c 12/25/22 11/13/24 History cholecalciferol (vitamin D3) 25 25 mcg PO SUTUTHSA vit ross 06/05/23 11/13/24 History mcg (1,000 unit) tablet omeprazole 20 mg capsule,delayed 20 mg PO DAILY reflux 11/04/23 11/13/24 History release ezetimibe 10 mg tablet (Zetia) 10 mg PO DAILY 02/27/24 11/13/24 History prednisone 5 mg tablet 5 mg PO DAILY 02/27/2411/13 History albuterol sulfate 2.5 mg/3 mL 1.25 mg inhalation TID P RN 05/09/24 11/15/24 History (0.083 %) solution for nebulization shortness of breat h or wheezing ipratropium bromide 0.02 % 0.5 mg inhalation TID PRN 0 05/09/24 11/13/24 History solution for inhalation shortness of breath or wheez ing biotin 10,000 mcg capsule 10,000 mcg PO DAILY 06/10/24 11/13/24 History folic acid 1 mg tablet 1 mg PO DAILY 06/10/2411/13 History glipizide 2.5 mg tablet, extended 2.5 mg PO BID 11/13/24 History release 24 hr amlodipine 5 mg tablet 5 mg PO DAILY 08/25/2411/13 History spironolactone 25 mg tablet 25 mg PO QDAY HEART 11/13/24 History levothyroxine 100 mcg tablet 100 mcg PO DAILY 11/15/24 11/13/24 History metoprolol tartrate 50 mg tablet 50 mg PO DAILY 11/13/24 History Allergy/AdvReac Type Severity Reaction Status Date / Time Anesthetics - Amide Type - Allergy Other Verified 08/25/24 15:01 Select A (Anesthetics - Amide Type) acetaminophen (From Tylenol) AdvReac Severe Other Verified 08/25/24 15:01 pravastatin AdvReac Intermediate Myalgias Verified 08/25/24 15:01 after 15 years of taking cinnamon AdvReac Unknown Unknown Verified 08/25/24 15:01 Penicillins AdvReac Unknown Unknown Verified 08/25/24 15:01 ezetimibe (From Zetia) AdvReac myalgias Verified 08/25/24 15:01 leflunomide AdvReac Chest Verified 08/25/24 15:04 tightness Family History Mother , age 86, advanced age No problems noted. Father Prostate cancer Surgical History History of coronary artery stent placement (01/26/21) H/O coronary artery bypass surgery (10/11/07) Hx of bilateral cataract extraction History of hysterectomy Hx of appendectomy History of cholecystectomy Social History household members: family housing: house Smoking Status: Never smoker alcohol intake: never substance use type: does not use caffeine: Yes Type: carbonated beverages what type of physical activity do you participate in: none seatbelt use: always do you feel safe at home: Yes Vital Signs Vital Signs Vital Signs: 11/15/24 11:41 11/15/24 13:09 11/15/24 14:20 Temperature 97.8 F 98.1 F 98 F Temperature Source Temporal Oral Pulse Rate 78 69 68 Respiratory Rate 16 16 18 Blood Pressure 127/65 H 140/52 H 141/48 H Blood Pressure Mean 85 81 79 Pulse Ox 100 100 99 Oxygen Delivery Method Room Air Room Air 11/15/24 14:42 Temperature Temperature Source Pulse Rate 67 Respiratory Rate 16 Blood Pressure Blood Pressure Mean Pulse Ox Oxygen Delivery Method Weight Weight: 164 lb 1.6 oz Body Mass Index (BMI) 31.0 Physical Exam Narrative She is awake and alert. She is in no acute distress. Head is normocephalic and atraumatic. Pupils are equal round and reactive to light. Abdomen is overall soft, nontender and somewhat obese. Palpation in the right lower quadrant reveals a very hard hernia. This seems more cephalad than a traditional inguinal hernia. She does have what appears toto be other hernias in this area. I did attempt to reduce the hernia however this did not reduce the hernia at all and in fact this was created significant amount of pain Results Lab / Micro Data 11/15/24 12:00 11/15/24 12:00 Labs: Laboratory Results - last 24 hr 11/15/24 12:00: WBC 13.6 H, RBC 3.72 L, Hgb 11.7 L, Hct 36.4 L, MCV 97.8, MCH 31.5, MCHC 32.1, RDW Std Deviation 51.2 H, RDW Coeff of Kamar 14.2, Plt Count 341,MPV 10.2, Immature Gran % (Auto) 0.400, Neut % (Auto) 61.8, Lymph % (Auto) 29.8,Burnett % (Auto) 6.2, Eos % (Auto) 1.4, Baso % (Auto) 0.4, Absolute Neuts (auto) 8.4 H, Absolute Lymphs (auto) 4.06, Nucleated RBC % 0, Sodium 135, Potassium 4.2, Chloride 101, Carbon Dioxide 19.5 L, Anion Gap 14, BUN 38 H, Creatinine 2.36 H, Estim Creat Clear Calc 17.54 L, Est GFR (MDRD) Non-Af 20 L, BUN/Creatinine Ratio 16.1, Glucose 164 H, Calcium 9.1, Total Bilirubin 0.47, AST23, ALT 14, Alkaline Phosphatase 109 H, Total Protein 7.1, Albumin 3.7, Globulin3.4, Albumin/Globulin Ratio 1.1 11/15/24 12:10: Lactic Acid 2.1 H Imaging Radiology Impression Abdomen/Pelvis CT 11/15/24 12:45 IMPRESSION: Right inguinal hernia containing small bowel loop which is fluid-filled. Fluid is also seen within the herniated sac. Mildly dilated/fluid-filled distal small bowel loops. Sigmoid diverticulosis without evidence of diverticulitis at this time. Extensive atherosclerotic calcification of the abdominal aorta and the major visceral branches. One or more dose reduction techniques were used (e.g., Automated exposure control, adjustment of the mA and/or kV according to patient size, use of iterative reconstruction technique). Reading Location: [facility] Assessment & Plan Assessment/Plan (1) Incarcerated hernia of abdominal cavity: PLAN: Plan The patient is an 79-year-old female with an incarcerated hernia in the right lower quadrant. This could be an inguinal hernia versus even a right lower quadrant abdominal hernia. Clinically this does seem to be incarcerated and causing her increasing pain. I have offered her repair surgery. We discussed the details of the planned procedure and she wishes to proceed. This will beginmomentarily Charges/Coding Visit Charges Inpatient E&M: 20493 Init Hosp L3 11/15/24 1541 <Electronically signed by Juancho Mendoza MD> Cosigner Signature (if applicable): CC: Dr. Carlo Diaz MD; Dr. Juancho Mendoza MD~ Signed [facility] Work Phone: [phone]) 720-250803-10-2025 Consult note Author Erasmo Ramírez [facility] Note Date/Time November 15, 2024 3:3 7pm [facility] Medical Records Department [address] [place] [address] Pre-Anesthesia Evaluation 11/15/24 1532 MR#: [id number] Acct: [id number] Name: ADELA WELLS Rep #:[id number] : 1945 79 From: Erasmo Ramírez MD PCP: Dr. Carlo Diaz MD Status:REG SDC Y Race: C Location: ASA Classification* ASA Classification ASA Classification: 3 and E Assessment & Plan Anesthesia* Anesthesia Assessment Anesthesia Assessment: Discussed sedation and/or anesthesia options, risks, benefits, and alternatives with patient/parents/legal guardian/POA. Questions invited. The patient/parents/legal guardian/POA seems to understand and agrees to proceedwith anesthesia plan. Reviewed the physical assessment, medical history, allergy history and patient home medications list prior to surgery/procedure/anesthetic and documented any changes. Performed airway and anesthesia risk assessments. Anesthesia Type Anesthesia Type: General (Allergy to amide local anesthetics. Avoid bupivacaineMarcaine lidocaine.) Anesthesia Focused Assessment* Temperature: 98 F Pulse Rate: 67 Blood Pressure: 141/48 Respiratory Rate: 16 Pulse Ox: 99 Airway Assessment Mouth opens: >3 cm Mallampati Score: II Focused Labs Anesthesia Preop lab: CBC WBC 13.6 K/mm3 (4.4-11.0) H 11/15/24 12: 5 RBC 3.72 M/mm3 (4.2-5.4) L 11/15/24 12:11/15/24 Hgb 11.7 g/dL (12.0-15.0) L 11/15/24 12: 5 Hct 36.4 % (37-47) L 11/15/24 12:11/15/24 Plt Count 341 K/mm3 (150-450) 11/15/24 12:11/15/24 CHEMISTRY Potassium 4.2 mmol/L (3.3-5.1) 11/15/24 12:00 11/15/24 Sodium 135 mmol/L (133-145) 11/15/24 12:11/15/24 Magnesium 2.2 mg/dL (1.6-2.6) 06/10/24 11:19 06/10/24 Phosphorus 3.1 mg/dL (2.5-4.9) 06/10/24 11:19 06/10/24 BUN 38 mg/dL (4-19) H 11/15/24 12:00 11/15/24 Creatinine 2.36 mg/dL (0.70-1.20) H 11/15/24 12:00 Glucose 164 mg/dL (70-99) H 11/15/24 12:00 11/15/24 POC Glucose 212 mg/dL (74-106) H 11/07/23 12:09 11/07/23 TSH 7.440 uIU/mL (0.358-3.740) H 06/11/24 04:00 COAG PT 13.5 SECONDS (11.7-14.9) 06/10/24 13:15 Pre-Assessment Diagnosis/Proposed Procedure Planned Operative Procedure(s): Repair incarcerated hernia, laproscopic Anesthesia History Anesthesia History - cleaner furniture: Anesthesia History - cleaner furniture Hx Hospitalization Yes 10/09/20 00:07 Any Problems With Anesthesia Yes: allergy 09/20/22 20:22 Cholinesterase deficiency No 09/20/22 20:22 You/Your Family Experience No 09/20/22 20:22 fever (hyperthermia) with Relationship Recent Exposure to Contagious No 09/20/22 20:22 Disease Does patient have nerve No 09/20/22 20:22 stimulator Patient instructed to have device shut off --Does patient have Pacemaker or ICD? When Was Last Pacemaker Check QUESTION #4 FULL TEXT: You/Your Family Experience fever (hyperthermia) with Anesthesia Last Oral Intake Last Oral intake: Last Oral Intake NPO since Meds taken in AM with sips of water? Meds patient instructed to take am of surgery PONV PONV - cleaner furniture: PONV - cleaner furniture Female HX of Motion Sickness HX of N/V After Surgery Non-Smoker Duration of Surgery greater than 60 minutes Number of Risk Factors PONV Score Height & Weight Height & Weight: Anesthesia: Height & Weight Height 5 ft 1 in 11/15/24 11:41 Weight: 74.435 kg 11/15/24 11:41 Body Mass Index (BMI) 31.0 11/15/24 11:41 Respiratory Assessment Respiratory Assessment - cleaner furniture: Respiratory Tract Infection Hx - cleaner furniture Hx Respiratory Tract Infection No 09/20/22 20:22 STOP Sleep Apnea STOP Sleep Apnea - cleaner furniture: STOP Sleep Apnea - cleaner furniture Hx Hypertension Yes 06/11/24 13:38 Hx Sleep Apnea No 06/10/24 13:53 CPAP No 11/04/23 12:39 BIPAP No 11/04/23 12:39 Do you snore loudly (louder than talking or can be heard Do you often feel tired/ fatigued/ sleepy during daytime? Has anyone observed you stop breathing during sleep? STOP Results QUESTION #5 FULL TEXT : Do you snore loudly (louder than talking or can be heard through closed doors)? 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 Specify any problems Hx of Preganancy in last 3 Months Nurse Filling Out Transfusion & Questions: Date: Time: Patient unable to answer at this time (ie. 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 Obesity Atherosclerosis of coronary artery bypass graft without angina pectoris Essential hypertension Type 2 diabetes mellitus without complication Vertigo GERD (gastroesophageal reflux disease) Asthma Hyperlipidemia Hypothyroidism Home Medications ?Medication ?Instructions ?Recorded ?Last Taken ?Type montelukast 10 mg tablet 10 mg PO DAILY PRN ASTHMA 11/13/24 History aspirin 81 mg tablet,delayed 81 mg PO DAILY HEART HEAL TH 11/19/17 11/13/24 History release cetirizine 10 mg tablet (Zyrtec) 10 mg PO DAILY PRN al lergies 02/15/20 06/09/24 History allopurinol 100 mg tablet 100 mg PO DAILY GOUT 2 11/13/24 History ipratropium 20 mcg-albuterol 100 1 puff inhalation Q6H BREATHING 09/20/22 11/13/24 History mcg/actuation mist for inhalation (Combivent Respimat) ferrous sulfate 325 mg (65 mg 325 mg PO DAILY SUPPLEME NT 10/04/22 11/13/24 His tory iron) tablet furosemide 40 mg tablet (Lasix) 40 mg PO DAILY diureti c 12/25/22 11/13/24 History cholecalciferol (vitamin D3) 25 25 mcg PO SUTUTHSA vit ross 06/05/23 11/13/24 History mcg (1,000 unit) tablet omeprazole 20 mg capsule,delayed 20 mg PO DAILY reflux 11/04/23 11/13/24 History release ezetimibe 10 mg tablet (Zetia) 10 mg PO DAILY 02/27/24 11/13/24 History prednisone 5 mg tablet 5 mg PO DAILY 02/27/2411/13 History albuterol sulfate 2.5 mg/3 mL 1.25 mg inhalation TID P RN 05/09/24 11/15/24 History (0.083 %) solution for nebulization shortness of breat h or wheezing ipratropium bromide 0.02 % 0.5 mg inhalation TID PRN 0 05/09/24 11/13/24 History solution for inhalation shortness of breath or wheez ing biotin 10,000 mcg capsule 10,000 mcg PO DAILY 06/10/24 11/13/24 History folic acid 1 mg tablet 1 mg PO DAILY 06/10/2411/13 History glipizide 2.5 mg tablet, extended 2.5 mg PO BID 11/13/24 History release 24 hr amlodipine 5 mg tablet 5 mg PO DAILY 08/25/2411/13 History spironolactone 25 mg tablet 25 mg PO QDAY HEART 11/13/24 History levothyroxine 100 mcg tablet 100 mcg PO DAILY 11/15/24 11/13/24 History metoprolol tartrate 50 mg tablet 50 mg PO DAILY 11/13/24 History Allergy/AdvReac Type Severity Reaction Status Date / Time Anesthetics - Amide Type - Allergy Other Verified 08/25/24 15:01 Select A (Anesthetics - Amide Type) acetaminophen (From Tylenol) AdvReac Severe Other Verified 08/25/24 15:01 pravastatin AdvReac Intermediate Myalgias Verified 08/25/24 15:01 after 15 years of taking cinnamon AdvReac Unknown Unknown Verified 08/25/24 15:01 Penicillins AdvReac Unknown Unknown Verified 08/25/24 15:01 ezetimibe (From Zetia) AdvReac myalgias Verified 08/25/24 15:01 leflunomide AdvReac Chest Verified 08/25/24 15:04 tightness Family History Mother , age 86, advanced age No problems noted. Father Prostate cancer Surgical History History of coronary artery stent placement (01/26/21) H/O coronary artery bypass surgery (10/11/07) Hx of bilateral cataract extraction History of hysterectomy Hx of appendectomy History of cholecystectomy Social History household members: family housing: house Smoking Status: Never smoker alcohol intake: never substance use type: does not use caffeine: Yes Type: carbonated beverages what type of physical activity do you participate in: none seatbelt use: always do you feel safe at home: Yes Review of Systems (Anesthesia) ROS Narrative System reviewed and no additional complaints, except as documented. 11/15/24 6257 <Electronically signed by Erasmo Ramírez MD > Date _ Erasmo Alcantar Signature: Date CC: ~ Signed [facility] Work Phone: [phone]) 604-247003-10-2025 History and physical note [facility] Medical Records Department [address] [address] History & Physical Exam 11/15/24 1536 MR#: [id number] Acct: [id number] Name: ADELA WELLS Rep #:[id number] : 1945 79 From: Juancho Mendoza MD PCP: Dr. Carlo Diaz MD Status:REG [facility] Location: HPI - General General Date of Admission: 11/15/24 Date of Service: 11/15/24 Chief Complaint: Incarcerated abdominal hernia HPI Narrative The patient is an 79-year-old female with past medical history of hypertension hyperlipidemia, COPD, diabetes, CHF, hypothyroidism. She has had multiple abdominal surgeries in the past. She presents to the emergency department with about 3-day history of abdominal pain. She states that the pain initially begancentrally but then seems to be more focused in the lower abdomen. She has a known herniain the right lower quadrant. It sounds as though this is nonreducible and has been the case for years. Prior to 3 days ago, this really has not caused her any issues or problems. She states that she has had nausea and decreased appetite. No vomiting. She states that she has not had a bowel movementin several days. She complains of quite a bit of pain in the site of the hernia. Her previous surgeries include a cholecystectomy, appendectomy, left- sided abdominal hernia repair, tubal ligation, and hysterectomy. She was seen evaluate by the ER staff. White count was somewhat elevated. Her creatinine is elevated as well. CT scan revealed a hernia in the right lower quadrant. This was read as aninguinal hernia however this seems clinically andradiographically to be slightly higher. [facility] Medical History (Updated 11/15/24 @ 15:[address] 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 Obesity Atherosclerosis of coronary artery bypass graft without angina pectoris Essential hypertension Type 2 diabetes mellitus without complication Vertigo GERD (gastroesophageal reflux disease) Asthma Hyperlipidemia Hypothyroidism Home Medications ?Medication ?Instructions ?Recorded ?Last Taken ?Type montelukast 10 mg tablet 10 mg PO DAILY PRN ASTHMA 11/13/24 History aspirin 81 mg tablet,delayed 81 mg PO DAILY HEART HEAL TH 11/19/17 11/13/24 History release cetirizine 10 mg tablet (Zyrtec) 10 mg PO DAILY PRN al lergies 02/15/20 06/09/24 History allopurinol 100 mg tablet 100 mg PO DAILY GOUT 2 11/13/24 History ipratropium 20 mcg-albuterol 100 1 puff inhalation Q6H BREATHING 09/20/22 11/13/24 History mcg/actuation mist for inhalation (Combivent Respimat) ferrous sulfate 325 mg (65 mg 325 mg PO DAILY SUPPLEME NT 10/04/22 11/13/24 History iron) tablet furosemide 40 mg tablet (Lasix) 40 mg PO DAILY diureti c 12/25/22 11/13/24 History cholecalciferol (vitamin D3) 25 25 mcg PO SUTUTHSA vit ross 06/05/23 11/13/24 History mcg (1,000 unit) tablet omeprazole 20 mg capsule,delayed 20 mg PO DAILY reflux 11/04/23 11/13/24 History release ezetimibe 10 mg tablet (Zetia) 10 mg PO DAILY 02/27/24 11/13/24 History prednisone 5 mg tablet 5 mg PO DAILY 02/27/2411/13 History albuterol sulfate 2.5 mg/3 mL 1.25 mg inhalation TID P RN 05/09/24 11/15/24 History (0.083 %) solution for nebulization shortness of breat h or wheezing ipratropium bromide 0.02 % 0.5 mg inhalation TID PRN 0 05/09/24 11/13/24 History solution for inhalation shortness of breath or wheez ing biotin 10,000 mcg capsule 10,000 mcg PO DAILY 06/10/24 11/13/24 History folic acid 1 mg tablet 1 mg PO DAILY 06/10/2411/13 History glipizide 2.5 mg tablet, extended 2.5 mg PO BID 11/13/24 History release 24 hr amlodipine 5 mg tablet 5 mg PO DAILY 08/25/2411/13 History spironolactone 25 mg tablet 25 mg PO QDAY HEART 11/13/24 History levothyroxine 100 mcg tablet 100 mcg PO DAILY 11/15/24 11/13/24 History metoprolol tartrate 50 mg tablet 50 mg PO DAILY 11/13/24 History Allergy/AdvReac Type Severity Reaction Status Date / Time Anesthetics - Amide Type - Allergy Other Verified 08/25/24 15:01 Select A (Anesthetics - Amide Type) acetaminophen (From Tylenol) AdvReac Severe Other Verified 08/25/24 15:01 pravastatin AdvReac Intermediate Myalgias Verified 08/25/24 15:01 after 15 years of taking cinnamon AdvReac Unknown Unknown Verified 08/25/24 15:01 Penicillins AdvReac Unknown Unknown Verified 08/25/24 15:01 ezetimibe (From Zetia) AdvReac myalgias Verified 08/25/24 15:01 leflunomide AdvReac Chest Verified 08/25/24 15:04 tightness Family History Mother , age 86, advanced age No problems noted. Father Prostate cancer Surgical History History of coronary artery stent placement (01/26/21) H/O coronary artery bypass surgery (10/11/07) Hx of bilateral cataract extraction History of hysterectomy Hx of appendectomy History of cholecystectomy Social History household members: family housing: house Smoking Status: Never smoker alcohol intake: never substance use type: does not use caffeine: Yes Type: carbonated beverages what type of physical activity do you participate in: none seatbelt use: always do you feel safe at home: Yes Vital Signs Vital Signs Vital Signs: 11/15/24 11:41 11/15/24 13:09 11/15/24 14:20 Temperature 97.8 F 98.1 F 98 F Temperature Source Temporal Oral Pulse Rate 78 69 68 Respiratory Rate 16 16 18 Blood Pressure 127/65 H 140/52 H 141/48 H Blood Pressure Mean 85 81 79 Pulse Ox 100 100 99 Oxygen Delivery Method Room Air Room Air 11/15/24 14:42 Temperature Temperature Source Pulse Rate 67 Respiratory Rate 16 Blood Pressure Blood Pressure Mean Pulse Ox Oxygen Delivery Method Weight Weight: 164 lb 1.6 oz Body Mass Index (BMI) 31.0 Physical Exam Narrative She is awake and alert. She is in no acute distress. Head is normocephalic and atraumatic. Pupils are equal round and reactive to light. Abdomen is overall soft, nontender and somewhat obese. Palpation in the right lower quadrant reveals a very hard hernia. This seems more cephalad than a traditional inguinal hernia. She does have what appears toto be other hernias in this area. I did attempt to reduce the hernia however this did not reduce the hernia at all and in fact this was createdsignificant amount of pain Results Lab / Micro Data 11/15/24 12:00 11/15/24 12:00 Labs: Laboratory Results - last 24 hr 11/15/24 12:00: WBC 13.6 H, RBC 3.72 L, Hgb 11.7 L, Hct 36.4 L, MCV 97.8, MCH 31.5, MCHC 32.1, RDW Std Deviation 51.2 H, RDW Coeff of Kamar 14.2, Plt Count 341,MPV 10.2, Immature Gran % (Auto) 0.400, Neut % (Auto) 61.8, Lymph % (Auto) 29.8,Burnett % (Auto) 6.2, Eos % (Auto) 1.4, Baso % (Auto) 0.4, Absolute Neuts (auto) 8.4 H, Absolute Lymphs (auto) 4.06, Nucleated RBC % 0, Sodium 135, Potassium 4.2, Chloride 101, Carbon Dioxide 19.5 L, Anion Gap 14, BUN 38 H, Creatinine 2.36 H, Estim Creat Clear Calc 17.54 L, Est GFR (MDRD) Non-Af 20 L, BUN/Creatinine Ratio 16.1, Glucose 164 H, Calcium 9.1, Total Bilirubin 0.47, AST23, ALT 14, Alkaline Phosphatase 109 H, Total Protein 7.1, Albumin 3.7, Globulin3.4, Albumin/Globulin Ratio 1.1 11/15/24 12:10: Lactic Acid 2.1 H Imaging Radiology Impression Abdomen/Pelvis CT 11/15/24 12:45 IMPRESSION: Right inguinal hernia containing small bowel loop which is fluid-filled. Fluid is also seen within the herniated sac. Mildly dilated/fluid-filled distal small bowel loops. Sigmoid diverticulosis without evidence of diverticulitis at this time. Extensive atherosclerotic calcification of the abdominal aorta and the major visceral branches. One or more dose reduction techniques were used (e.g., Automated exposure control, adjustment of the mA and/or kV according to patient size, use of iterative reconstruction technique). Reading Location: [facility] Assessment & Plan Assessment/Plan (1) Incarcerated hernia of abdominal cavity: PLAN: Plan The patient is an 79-year-old female with an incarcerated hernia in the right lower quadrant. This could be an inguinal hernia versus even a right lower quadrant abdominal hernia. Clinically this does seem to be incarcerated and causing her increasing pain. I have offered her repair surgery. We discussed the details of the planned procedure and she wishes to proceed. This will beginmomentarily Charges/Coding Visit Charges Inpatient E&M: 77199 Init Hosp L3 11/15/24 1543 Cosigner Signature (if applicable): CC: Dr. Carlo Diaz MD; Dr. Juancho Mendoza MD~ Signed [facility]03-10-2025 Consult note [facility] Medical Records Department [address] [place] [address] Pre-Anesthesia Evaluation 11/15/24 1532 MR#: [id number] Acct: [id number] Name: ADELA WELLS Rep #:[id number] : 1945 79 From: Erasmo Ramírez MD PCP: Dr. Carlo Diaz MD Status:REG [facility] Race: C Location: ASA Classification* ASA Classification ASA Classification: 3 and E Assessment & Plan Anesthesia* Anesthesia Assessment Anesthesia Assessment: Discussed sedation and/or anesthesia options, risks, benefits, and alternatives with patient/parents/legal guardian/POA. Questions invited. The patient/parents/legal guardian/POA seems to understand and agrees to proceedwith anesthesia plan. Reviewed the physical assessment, medical history, allergy history and patient home medications list prior to surgery/procedure/anesthetic and documented any changes. Performed airway and anesthesia risk assessments. Anesthesia Type Anesthesia Type: General (Allergy to amide local anesthetics. Avoid bupivacaineMarcaine lidocaine.) Anesthesia Focused Assessment* Temperature: 98 F Pulse Rate: 67 Blood Pressure: 141/48 Respiratory Rate: 16 Pulse Ox: 99 Airway Assessment Mouth opens: >3 cm Mallampati Score: II Focused Labs Anesthesia Preop lab: CBC WBC 13.6 K/mm3 (4.4-11.0) H 11/15/24 12: 5 RBC 3.72 M/mm3 (4.2-5.4) L 11/15/24 12:00 11/15/24 Hgb 11.7 g/dL (12.0-15.0) L 11/15/24 12: 5 Hct 36.4 % (37-47) L 11/15/24 12:00 11/15/24 Plt Count 341 K/mm3 (150-450) 11/15/24 12:00 11/15/24 CHEMISTRY Potassium 4.2 mmol/L (3.3-5.1) 11/15/24 12:00 11/15/24 Sodium 135 mmol/L (133-145) 11/15/24 12:00 11/15/24 Magnesium 2.2 mg/dL (1.6-2.6) 06/10/24 11:19 06/10/24 Phosphorus 3.1 mg/dL (2.5-4.9) 06/10/24 11:19 06/10/24 BUN 38 mg/dL (4-19) H 11/15/24 12:00 11/15/24 Creatinine 2.36 mg/dL (0.70-1.20) H 11/15/24 12:00 Glucose 164 mg/dL (70-99) H 11/15/24 12:00 11/15/24 POC Glucose 212 mg/dL (74-106) H 11/07/23 12:09 11/07/23 TSH 7.440 uIU/mL (0.358-3.740) H 06/11/24 04:00 COAG PT 13.5 SECONDS (11.7-14.9) 06/10/24 13:15 Pre-Assessment Diagnosis/Proposed Procedure Planned Operative Procedure(s): Repair incarcerated hernia, laproscopic Anesthesia History Anesthesia History - cleaner furniture: Anesthesia History - cleaner furniture Hx Hospitalization Yes 10/09/20 00:07 Any Problems With Anesthesia Yes: allergy 09/20/22 20:22 Cholinesterase deficiency No 09/20/22 20:22 You/Your Family Experience No 09/20/22 20:22 fever (hyperthermia) with Relationship Recent Exposure to Contagious No 09/20/22 20:22 Disease Does patient have nerve No 09/20/22 20:22 stimulator Patient instructed to have device shut off --Does patient have Pacemaker or ICD? When Was Last Pacemaker Check QUESTION #4 FULL TEXT: You/Your Family Experience fever (hyperthermia) with Anesthesia Last Oral Intake Last Oral intake: Last Oral Intake NPO since Meds taken in AM with sips of water? Meds patient instructed to take am of surgery PONV PONV - cleaner furniture: PONV - cleaner furniture Female HX of Motion Sickness HX of N/V After Surgery Non-Smoker Duration of Surgery greater than 60 minutes Number of Risk Factors PONV Score Height & Weight Height & Weight: Anesthesia: Height & Weight Height 5 ft 1 in 11/15/24 11:41 Weight: 74.435 kg 11/15/24 11:41 Body Mass Index (BMI) 31.0 11/15/24 11:41 Respiratory Assessment Respiratory Assessment - cleaner furniture: Respiratory Tract Infection Hx - cleaner furniture Hx Respiratory Tract Infection No 09/20/22 20:22 STOP Sleep Apnea STOP Sleep Apnea - cleaner furniture: STOP Sleep Apnea - cleaner furniture Hx Hypertension Yes 06/11/24 13:38 Hx Sleep Apnea No 06/10/24 13:53 CPAP No 11/04/23 12:39 BIPAP No 11/04/23 12:39 Do you snore loudly (louder than talking or can be heard Do you often feel tired/ fatigued/ sleepy during daytime? Has anyone observed you stop breathing during sleep? STOP Results QUESTION #5 FULL TEXT : Do you snore loudly (louder than talking or can be heard through closeddoors)? 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 Specify any problems Hx of Preganancy in last 3 Months Nurse Filling Out Transfusion & Questions: Date: Time: Patient unable to answer at this time (ie. 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 Obesity Atherosclerosis of coronary artery bypass graft without angina pectoris Essential hypertension Type 2 diabetes mellitus without complication Vertigo GERD (gastroesophageal reflux disease) Asthma Hyperlipidemia Hypothyroidism Home Medications ?Medication ?Instructions ?Recorded ?Last Taken ?Type montelukast 10 mg tablet 10 mg PO DAILY PRN ASTHMA 11/13/24 History aspirin 81 mg tablet,delayed 81 mg PO DAILY HEART HEAL TH 11/19/17 11/13/24 History release cetirizine 10 mg tablet (Zyrtec) 10 mg PO DAILY PRN al lergies 02/15/20 06/09/24 History allopurinol 100 mg tablet 100 mg PO DAILY GOUT 2 11/13/24 History ipratropium 20 mcg-albuterol 100 1 puff inhalation Q6H BREATHING 09/20/22 11/13/24 History mcg/actuation mist for inhalation (Combivent Respimat) ferrous sulfate 325 mg (65 mg 325 mg PO DAILY SUPPLEME NT 10/04/22 11/13/24 His tory iron) tablet furosemide 40 mg tablet (Lasix) 40 mg PO DAILY diureti c 12/25/22 11/13/24 History cholecalciferol (vitamin D3) 25 25 mcg PO SUTUTHSA vit ross 06/05/23 11/13/24 History mcg (1,000 unit) tablet omeprazole 20 mg capsule,delayed 20 mg PO DAILY reflux 11/04/23 11/13/24 History release ezetimibe 10 mg tablet (Zetia) 10 mg PO DAILY 02/27/24 11/13/24 History prednisone 5 mg tablet 5 mg PO DAILY 02/27/2411/13 History albuterol sulfate 2.5 mg/3 mL 1.25 mg inhalation TID P RN 05/09/24 11/15/24 History (0.083 %) solution for nebulization shortness of breat h or wheezing ipratropium bromide 0.02 % 0.5 mg inhalation TID PRN 0 05/09/24 11/13/24 History solution for inhalation shortness of breath or wheez ing biotin 10,000 mcg capsule 10,000 mcg PO DAILY 06/10/24 11/13/24 History folic acid 1 mg tablet 1 mg PO DAILY 06/10/2411/13 History glipizide 2.5 mg tablet, extended 2.5 mg PO BID 11/13/24 History release 24 hr amlodipine 5 mg tablet 5 mg PO DAILY 08/25/2411/13 History spironolactone 25 mg tablet 25 mg PO QDAY HEART 11/13/24 History levothyroxine 100 mcg tablet 100 mcg PO DAILY 11/15/24 11/13/24 History metoprolol tartrate 50 mg tablet 50 mg PO DAILY 11/13/24 History Allergy/AdvReac Type Severity Reaction Status Date / Time Anesthetics - Amide Type - Allergy Other Verified 08/25/24 15:01 Select A (Anesthetics - Amide Type) acetaminophen (From Tylenol) AdvReac Severe Other Verified 08/25/24 15:01 pravastatin AdvReac Intermediate Myalgias Verified 08/25/24 15:01 after 15 years of taking cinnamon AdvReac Unknown Unknown Verified 08/25/24 15:01 Penicillins AdvReac Unknown Unknown Verified 08/25/24 15:01 ezetimibe (From Zetia) AdvReac myalgias Verified 08/25/24 15:01 leflunomide AdvReac Chest Verified 08/25/24 15:04 tightness Family History Mother , age 86, advanced age No problems noted. Father Prostate cancer Surgical History History of coronary artery stent placement (01/26/21) H/O coronary artery bypass surgery (10/11/07) Hx of bilateral cataract extraction History of hysterectomy Hx of appendectomy History of cholecystectomy Social History household members: family housing: house Smoking Status: Never smoker alcohol intake: never substance use type: does not use caffeine: Yes Type: carbonated beverages what type of physical activity do you participate in: none seatbelt use: always do you feel safe at home: Yes Review of Systems (Anesthesia) ROS Narrative System reviewed and no additional complaints, except as documented. 11/15/24 1537 > Date _ Erasmo Alcantar Signature: Date CC: ~ Signed [facility]03-10-2025 [facility] Medical Records Department [address] [place] [address] History Physical Exam 11/15/24 1536 MR#: [id number] Acct: [id number] Name: ADELA WELLS Rep #: [id number] : 1945 79 From: Juancho Mendoza MD PCP: Dr. Carlo Diaz MD Status:[facility] Location: HPI - General General Date of Admission: 11/15/24 Date of Service: 11/15/24 Chief Complaint: Incarcerated abdominal hernia HPI Narrative The patient is an 79-year-old female with past medical history of hypertension hyperlipidemia, COPD, diabetes, CHF, hypothyroidism. She has had multiple abdominal surgeries in the past. She presents to the emergency department with about 3-day history of abdominal pain. She states that the pain initially began centrally but then seems to be more focused in the lower abdomen. She has a known hernia in the right lower quadrant. It sounds as though this is nonreducible and has been the case for years. Prior to 3 days ago, this really has not caused her any issues or problems. She states that she has had nausea and decreased appetite. No vomiting. She states that she has not had a bowel movement in several days. She complains of quite a bit of pain in the site of the hernia. Her previous surgeries include a cholecystectomy, appendectomy, left-sided abdominal hernia repair, tubal ligation, and hysterectomy. She was seen evaluate by the ER staff. White count was somewhat elevated. Her creatinine is elevated as well. CT scan revealed a hernia in the right lower quadrant. This was read as an inguinal hernia however this seems clinically and radiographically to be slightly higher. [facility] Medical History (Updated 11/15/24 @ 15:[address] Juancho Mendoza MD) Incarcerated hernia of abdominal cavity CHF (congestive heart failure) Anemia NSTEMI (non-ST elevated myocardial infarction) Cardiomyopathy COVID-19 ( 04/2022) Insect bite History of non-ST elevation myocardial infarction (NSTEMI) (01/26/21) COPD (chronic obstructive pulmonary disease) Morbid obesity TIA (transient ischemic attack) Arm paresthesia, right CKD (chronic kidney disease) Atherosclerotic heart disease of teller coronary artery without angina 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 Obesity Atherosclerosis of coronary artery bypass graft without angina pectoris Essential hypertension Type 2 diabetes mellitus without complication Vertigo GERD (gastroesophageal reflux disease) Asthma Hyperlipidemia Hypothyroidism Home Medications ???Medication ???Instructions ???Recorded ???Last Taken ???Type montelukast 10 mg tablet 10 mg PO DAILY PRN ASTHMA 12/17/13 11/13/24 History aspirin 81 mg tablet,delayed 81 mg PO DAILY HEART HEALTH 11/13/24 History release cetirizine 10 mg tablet (Zyrtec) 10 mg PO DAILY PRN allergies 02/1406/09/24 History allopurinol 100 mg tablet 100 mg PO DAILY GOUT 11/22/21 03/05/02 History ipratropium 20 mcg-albuterol 100 1 puff inhalation Q6H BREATHING 11/13/24 History mcg/actuation mist for inhalation (Combivent Respimat) ferrous sulfate 325 mg (65 mg 325 mg PO DAILY SUPPLEMENT 3 11/13/24 History iron) tablet furosemide 40 mg tablet (Lasix) 40 mg PO DAILY diuretic 12/25/22 0 11/13/24 History cholecalciferol (vitamin D3) 25 25 mcg PO SUTUTHSA vitamin 3 11/13/24 History mcg (1,000 unit) tablet omeprazole 20 mg capsule,delayed 20 mg PO DAILY reflux 11/04/2305/02 History release ezetimibe 10 mg tablet (Zetia) 10 mg PO DAILY 02/27/24 11/13/24 H istory prednisone 5 mg tablet 5 mg PO DAILY 02/27/24 11/13/24 Hi story albuterol sulfate 2.5 mg/3 mL 1.25 mg inhalation TID PRN 4 11/15/24 History (0.083 %) solution for nebulization shortness of breath or wheezing ipratropium bromide 0.02 % 0.5 mg inhalation TID PRN 05/09/24 11/13/24 History solution for inhalation shortness of breath or wheezing biotin 10,000 mcg capsule 10,000 mcg PO DAILY 06/10/2411/13 History folic acid 1 mg tablet 1 mg PO DAILY 06/10/24 11/13/24 Hi story glipizide 2.5 mg tablet, extended 2.5 mg PO BID 06/10/24 11/13/24 H istory release 24 hr amlodipine 5 mg tablet 5 mg PO DAILY 08/25/24 11/13/24 Hi story spironolactone 25 mg tablet 25 mg PO QDAY HEART 08/25/2411/13 History levothyroxine 100 mcg tablet 100 mcg PO DAILY 11/15/24 11/13/24 History metoprolol tartrate 50 mg tablet 50 mg PO DAILY 11/15/24 11/13/24 H istory Allergy/AdvReac Type Severity Reaction Status Date / Time Anesthetics - Amide Type - Allergy Other Verified 08/25/24 15:01 Select A (Anesthetics - Amide Type) acetaminophen (From Tylenol) AdvReac Severe Other Verified 08/25/24 15:01 pravastatin AdvReac Intermediate Myalgias Verified 08/08 (more content not included)...[facility]03-10-2025 Radiology Diagnostic study note [facility] Imaging Services [address] [place] [address] Abdomen/Pelvis without Cont MR#: [id number] Acct: [id number] Name: ADELA WELLS Rep #: [id number] : 1945 F 79 From: Beto Cheng MD PCP: Dr. Carlo Diaz MD Status: REG ER Study:Abdomen/Pelvis without Cont Date of Exa m: 11/15/24 Exam# [id number] Ordering Dr: Naa Mohan PROCEDURE: ABDOMEN/PELVIS WITHOUT CONT REASON FOR EXAM: 2 day history of constipation and abdominal pain. TECHNIQUE: Abdomen and pelvis CT without intravenous contrast administration. IV CONTRAST: None COMPARISON: None. FINDINGS: Lung bases: Clear. Coronary artery calcification. Liver: Unremarkable. Gallbladder: Surgically absent. Spleen: Unremarkable. Pancreas: Unremarkable. Adrenals: Unremarkable. Kidneys: Unremarkable. Bladder: Unremarkable. Reproductive Organs: The patient is status post hysterectomy. Bowel: Colonic diverticulosis without diverticulitis. Small hiatal hernia. There is evidence of a moderate-sized right inguinal hernia containing a small bowel loop with fluid. Mild dilatation of the distal small bowel loops with fluid. Small amount of free fluid is seen in the pelvis. Appendix: Status post appendectomy. Lymph nodes: No suspicious lymph node enlargement. Vasculature: Extensive atherosclerotic calcification of the abdominal aorta as well as the major visceral vessels. 1.5 cm cyst in the posterior aspect of the right kidney. Peritoneum / Retroperitoneum: No ascites. No free air. Bones: Degenerative changes of the spine. CT/Abdomen/Pelvis without Cont IMPRESSION: Right inguinal hernia containing small bowel loop which is fluid-filled. Fluid is also seen within the herniated sac. Mildly dilated/fluid-filled distal small bowel loops. Sigmoid diverticulosis without evidence of diverticulitis at this time. Extensive atherosclerotic calcification of the abdominal aorta and the major visceral branches. One or more dose reduction techniques were used (e.g., Automated exposure control, adjustment of the mA and/or kV according to patient size, use of iterative reconstruction technique). Reading Location: [place] [address] CC: Dr. Carlo Diaz MD; LAYNE Curry ~ Toll Repairer Central Office: Signed [facility]12-18-2024 Evaluation note* Diagnosis Onset Date Resolution Status Admit Date Cardiomyopathy inactive August 082023 2:58pm Essential hypertension inactive 2023 2:58pm History of coronary artery stent placement January 26, 2021 inactive August 25, 2 024 2:58pm Hyperlipidemia inactive August 082023 2:58pm [facility] Work Phone: 1(106) 477-154112-18-2024 Evaluation note* Diagnosis Onset Date Resolution Status Admit Date Cardiomyopathy inactive August 082023 2:58pm Essential hypertension inactive 2023 2:58pm History of coronary artery stent placement January 26, 2021 inactive August 25, 2 024 2:58pm Hyperlipidemia inactive August 082023 2:58pm Abdominal pain acute November 5:43pm Incarcerated hernia of abdominal cavity acute November 15 5:43pm [facility] Work Phone: 1(168) 836-286912-18-2024 Evaluation note* Diagnosis Onset Date Resolution Status Admit Date Cardiomyopathy inactive August 082023 2:58pm Essential hypertension inactive 2023 2:58pm History of coronary artery stent placement January 26, 2021 inactive August 25, 2 024 2:58pm Hyperlipidemia inactive August 082023 2:58pm Abdominal pain resolved November 5:43pm Incarcerated hernia of abdominal cavity resolved November 15 5:43pm [facility] Work Phone: 1(753) 810-260610-04-2024 [facility] Medical Records Department [address] [address] Discharge Summary 06/11/24 1500 MR#: [id number] Acct: [id number] Name: ADELA WELLS Rep #: [id number] : 1945 79 From: Presley Avila MD PCP: Dr. Carlo Diaz MD Status:ADM IN Location: [place] [address] Providers Date of Admission: 06/10/24 Date of Discharge: 06/11/24 Primary Care Physician: Dr. Carlo Diaz MD Consultations 06/10/24 13:51 Consult: Cardiology Routine Consulting Provider: Vignesh Graham Reason for Consult: Chest Pain EMERGENT Consult: No MD Notified: Yes Date Notified: 06/10/24 Time Notified: 12:23 Method of Notification: ED Physician Initiated Reason For Visit: CHEST PAIN Diagnosis Discharge Diagnosis (1) Chest pain: Status: Acute Code(s): R07.9 - Chest pain, unspecified Qualifiers: Chest pain type: unspecified Qualified Code(s): R07.9 - Chest pain, unspecified (2) Elevated troponin: Status: Acute Code(s): R79.89 - Other specified abnormal findings of blood chemistry Plan This 79-year-old female is being admitted for evaluation of chest pain that woke her up twice in the morning concern of possible unstable angina/non-STEMI 1. Possible unstable angina/non-STEMI with history of CAD, multiple stents and CABG: Patient is being in PCU. Twelve-lead EKG on May 09, 2024 sinus rhythm with sinus arrhythmia. Today's EKG shows slight ST depression in lateral leads, V3-V6 in 1 and aVL. First troponin 43, second 113. Third pending. Serum magnesium and phosphorus normal. Belt Loop Maker is consulted and discussed. Patient is started on IV heparin drip. Baby aspirin, Plavix, nitroglycerin transdermal as needed for chest pain. Patient on metoprolol 50 mg daily continued. Not candidate for VIDA/ARB because of CKD. Most likely plan continue conservative treatment 06/11: Patient was evaluated by promotions specialist yesterday and today. Troponin is mildly increased 43, 113 and 187 suggestive of mild non-STEMI. Her medication is optimized. Her home medication metoprolol tartrate 50 mg once daily changed to metoprolol succinate 100 mg daily. Amlodipine 5 mg daily started. Continue baby aspirin. Plavix discontinued as patient high risk of bleeding. Follow-up cardiology office with Crispin Sanchez NP. Patient is discharged home on optimized medications Patient on levothyroxine 100 mcg daily. TSH high 7.44. Free T4 ordered. Levothyroxine dose increased to 112 mcg daily. 2. CAD status post CABG and multiple stents:Patient had cardiac cath in October 2023 reported EF 35%, moderate global hypokinesis, decreased LV systolic function. HEART graft to mid LAD patent. SVG graft to first diagonal patent with moderate disease in body of his stent and immediate post anastomotic site. LM less than 30%. Circumflex mild less than 30%. RCA dominant vessel previously bypassed. Mild diffuse distal disease. Echo in October 2023 shows EF 40%. Mild to moderate MR. Left atrium mildly enlarged. 3. Chronic HFrEF: Echo as described above. EF 35%. Patient has chronic leg swelling left more than right. Venous duplex ordered to rule out DVT. On furosemide and spironolactone continued. Patient on guideline medical treatment for heart failure. Chest x-ray does not show acute abnormality 4. Possible polymyalgia rheumatica: No headache jaw clarification. On prednisone 5 mg daily continued. 5. Diabetes mellitus type 2: Accu-Chek before meals and at bedtime with Humalog sliding scale coverage and hypoglycemia protocol. Hold glipizide. Glucose 184. 06/11 glucoses reasonably well-controlled. 6. CKD stage IV: BUNs/creatinine 40/2.26, estimated creatinine clearance 18 mL/min. Her creatinine is better than May 09, 2024. Continue diuretics. Mild hyponatremia 135 on baseline due to diuretic. Serum potassium 4.8 normal. Serum magnesium and phosphorus normal range. 06/11: Patient is not candidate for VIDA or ARB because of CKD 7. Chronic gout: On allopurinol continue 8. Hypertension: Blood pressure was elevated 172/96 in the ED. Currently 166/75. Amlodipine 5 mg daily ordered. 06/11: Patient's blood pressure is controlled. Currently in 120s therefore amlodipine 5 mg started yesterday continued 9. Abnormal UA, UTI ruled out, mild asymptomatic bacteriuria: UA LE 500. WBC more than 100 cells. Patient has burning/dysuria. Urine culture pending. Patient was given Cipro 500 mg in the ED 1 dose. Started on ceftriaxone 06/11: Urine culture shows mixed gram-positive organism. UTI ruled out. Antibiotic not indicated DVT prophylaxis high risk: IV heparin drip. Heparin drip was discussed Living will/advanced directive/end of life care: Patient does not have living will or advanced directive. She does not have designated power of title attorney for health but her son and daughter are power of title attorney for health. After discussion of benefit (more content not included)...[facility]03-01-2024 Discharge summary Author Alfonso Quiroz [facility] November 07, 2023 2:15pm Note Date/Time November 07, 2023 2:01 pm [facility] Medical Records Department [address] [place] [id number] Discharge Summary 11/07/23 1354 MR#: [id number] Acct: [id number] Name: ADELA WELLS Rep #:[id number] : 1945 78 From: Alfonso Quiroz DO PCP: Dr. Carlo Diaz MD Status:ADM IN Location: [place] [address] Providers Date of Admission: 11/04/23 Primary Care Physician: Dr. Carlo Diaz MD Consultations 11/04/23 12:40 Consult: Cardiology Routine Consulting Provider: Levy Graham Reason for Consult: NSTEMI EMERGENT Consult: No MD Notified: Yes Date Notified: 11/04/23 Time Notified: 12:08 Method of Notification: ED Physician Initiated Reason For Visit: NSTEMI Diagnosis Discharge Diagnosis (1) NSTEMI (non-ST elevated myocardial infarction): Status: Acute Code(s): I21.4 - Non-ST elevation (NSTEMI) myocardial infarction Plan NSTEMI * Type II demand ischemia from CHF exacerbation. * Heart cath showed nonobstructive coronary disease. Patient does have a chronically occluded LAD that has been bypassed. Acute heart failure with reduced ejection fraction * EF of 45% from 2D echocardiogram from February 19, 2023. Complicated by pulmonary artery hypertension. Patient had pulmonary artery systolic pressure 54 mmHg at that time. Echo shows an EF 40%. Moderate global hypokinesis. * DC IV furosmeide as Creatinine has crept upwards from baseline. Change to PO. Continue spironolactone. * No VIDA-/ARB given CKD. Suspected polymyalgia rheumatica * no headache nor jaw claudication to be concerned about giant cell arteritis * ESR 50. CRP 72.9. * Start prednisone 15 mg/day. This will need to be reassessed in 4 to 6 weeks to see if improvements and then seeing if her steroids can be tapered down. May be beneficial for the patient to see a preparation center coordinator but will defer to primary care. Chronic conditions * Diabetes mellitus type 2: Sliding scale insulin check an A1c. * Hypertension: Stable. * History of gout: Currently stable. Continue with allopurinol. VTE prophylaxis: LMWH CODE STATUS: Addressed with the patient. Patient unsure. Told patient we will leave her on full CODE STATUS but if she does change her mind to let us know. Discharge home. Medications at Discharge Home Medications montelukast 10 mg tablet 10 mg PO DAILY ASTHMA 12/17/13 aspirin 81 mg tablet,delayed release 81 mg PO QDAY HEART HEALTH 11/19/17 cetirizine 10 mg tablet (Zyrtec) 10 mg PO QDAY allergies 02/15/20 allopurinol 100 mg tablet 100 mg PO DAILY GOUT 11/22/21 spironolactone 25 mg tablet 25 mg PO DAILY HEART 08/28/22 ipratropium 20 mcg-albuterol 100 mcg/actuation mist for inhalation (Combivent Respimat) 1 puff inhalation Q6H BREATHING 09/20/22 ferrous sulfate 325 mg (65 mg iron) tablet 325 mg PO BID SUPPLEMENT 10/04/22 furosemide 40 mg tablet (Lasix) 40 mg PO DAILY diuretic 12/25/22 cholecalciferol (vitamin D3) 25 mcg (1,000 unit) tablet 25 mcg PO SUTUTHSA vitamin 06/05/23 glipizide 10 mg tablet 2.5 mg PO DAILY DM 06/05/23 levothyroxine 100 mcg tablet 100 mcg PO DAILY THYROID 06/05/23 metoprolol tartrate 50 mg tablet 50 mg PO DAILY blood pressure 06/05/23 omeprazole 20 mg capsule,delayed release 20 mg PO DAILY reflux 11/04/23 vitamins A,C,V-znxd-rxqumy 2,148 mcg-113 mg-45 mg-17.4 mg tablet (Eye Multivitamin) 1 tab PO BID vitamin 11/04/23 prednisone 5 mg tablet 15 mg (3 x 5 mg) PO DAILY #90 tabs 11/07/23 Hospital Course Operations None Procedures 2-D Echocardiogram and Cardiac catheterization Summary of Care Provided Minutes Spent on Discharge: 45 Hospital Course: Patient presents with shortness of breath. Patient found to have a non-ST ovation myocardial infarction with troponins that went up to 11,000. Patient underwent cardiac catheterization that showed nonobstructive coronary disease. Patient did have obstruction of her LAD but that is previously been bypassed andthe bypass graft was intact. Patient was in acute CHF exacerbation and was diuresed and did well. Patient's creatinine has crept up so patient will be resumed on her daily dosing of furosemide and spironolactone. Patient advised to check her weight daily. She states that she does not few times per week and does keep a record of that. Did advise her to do so but on a daily basis. Patient incidentally complained of bilateral shoulder girdle achiness. She states that she has been on prednisone in the past and that has actually helped her. She has never been diagnosed with polymyalgia rheumatica. I did order an ESR and CRP that were both elevated. Patient will be started on prednisone 15 mg daily. Patient has no headache nor jaw claudication to suggest giant cell arteritis therefore not a higher dose of prednisone at this time. Patient will need to be reevaluated in 4 to 6 weeks for improvement and to see if she has improvement of her ESR and CRP. May be beneficial for her to see a preparation center coordinator as outpatient. Weight / BMI Weight Weight: 76.6 kg Body Mass Index (BMI) 31.8 ABG / Lab / Microbiology Data 11/05/23 08:13 11/07/23 06:30 Laboratory: Laboratory Results - last 24 hr 11/06/23 17:03: POC Glucose 239 H 11/06/23 21:10: POC Glucose 209 H 11/07/23 06:30: ESR 50 H, Sodium 132 L, Potassium 3.8, Chloride 95 L, Carbon Dioxide 30.0, Anion Gap 7, BUN 46 H, Creatinine 1.83 H, Estim Creat Clear Calc 23.34, Est GFR (MDRD) Af Amer 34 L, Est GFR (MDRD) Non-Af 28 L, BUN/Creatinine Ratio 25.1 H, Glucose 130 H, Calcium 9.2, C-React Prot Ext Range 72.90 H 11/07/23 08:19: POC Glucose 134 H 11/07/23 12:09: POC Glucose 212 H D/C Instructions Discharge Diet: - (1.5 L of fluid per day) Meaningful Use Info Meaningful Use Diagnoses (Choose all that apply): AMI and CHF AMI/Post PCI/Angioplasty Aspirin given w/in 24hrs of arrival?: Yes ASA at discharge?: Yes Statins at discharge?: No Reason statins not ordered:: Allergy Vida/ARB at discharge?: No Reason Vida/ARB not ordered:: Worsening renal dysfunctn Beta Bernie at discharge?: Yes Done w/ Acute OR measure.: Yes Documented LVEF (%): 40 CHF VIDA/ARB ordered at discharge?: No Reason VIDA/ARB not ordered?: Worsening renal disease Documented LVEF (%): 40 Discharge Plan Admission Admit Date/Time: 11/04/23 12:03 Primary Reason for Your Visit: Congestive heart failure Attending Provider: Alfonso Quiroz Primary Care Provider: Carlo Diaz Consulting Providers: Levy Graham Instructions Patient Instructions: Heart Failure Flare Up Signs, Heart Failure: Tracking Your Weight, Heart Failure: Being Active, Heart Failure: Know Your Baselines Additional Instructions / Restrictions: You had congestive heart failure exacerbation, fluid on your lungs. You did well with the use of IV furosemide (Lasix). Additionally you had myocardial infarction due to strain from the acute heart failure. Your vessels look good your bypass graft look good as well. Therefore he did not require any stents. At home, weigh yourself daily and keep a record of that. Notify your physician if you put on more than 2 pounds in 1 day or 3 pounds in 1 week. You complained to me today about just achiness in your shoulders which you had some time and that it got better with prednisone. You had lab work (elevated ESR and CRP) that may indicate a condition called polymyalgia rheumatica (also known as PMR). The treatment for that is a steroids. You will be on 15 mg of prednisone for the next several weeks. Please follow-up with your primary care doctor to see how you are progressing during this time to see if that medicationcan be tapered down. May be beneficial to see a preparation center coordinator. Your primary care physician can help facilitate that if he feels that is indicated. Discharge Orders/Prescriptions Prescriptions: New prednisone 5 mg tablet 15 mg PO DAILY Qty: 90 0RF Continued aspirin 81 mg tablet,delayed release (DR/EC) 81 mg PO QDAY cetirizine [Zyrtec] 10 mg tablet 10 mg PO QDAY glipizide 10 mg tablet 2.5 mg PO DAILY Patient Comments: pt only takes when BS over 200 allopurinol 100 mg tablet 100 mg PO DAILY levothyroxine 100 mcg tablet 100 mcg PO DAILY Patient Comments: TAKE 1 TABLET BY MOUTH ONCE DAILY furosemide [Lasix] 40 mg tablet 40 mg PO DAILY Patient Comments: PT STATES SHE ONLY TAKES 1/4 OF A PILL WHEN LEGS ARE SWOLLEN metoprolol tartrate 50 mg tablet 50 mg PO DAILY cholecalciferol (vitamin D3) 25 mcg (1,000 unit) tablet 25 mcg PO SUTUTHSA spironolactone 25 mg tablet 25 mg PO DAILY ferrous sulfate 325 mg (65 mg iron) tablet 325 mg PO BID Patient Comments: PT RAN OUT OF MED AND HASNT GOTTEN REFILLED YET montelukast 10 MG tablet 10 mg PO DAILY Combivent Respimat 20-100 mcg/actuation mist 1 puff INHALATION Q6H Eye Multivitamin 2,148 mcg-113 mg-45 mg-17.4mg tablet 1 tab PO BID Rx Instructions: administer with AM and PM meals omeprazole 20 mg capsule,delayed release(DR/EC) 20 mg PO DAILY Discontinued ezetimibe [Zetia] 10 mg tablet 10 mg PO DAILY Qty: 90 3RF Hold Instructions: Ordered Patient Comments: PT STATES SHE THINKS THIS MED IS CAUSING WIDESPREAD MUSCLE PAIN, SO SHE STOPPED TAKING prednisone 20 mg tablet 10 mg PO DAILY PRN (Reason: pain) Referrals / Follow Up: [facility] [Provider Group] - Within 1 Month Carlo Diaz MD [Primary Care Provider] - Within 2 Weeks Disposition Disposition (needs filled in before D/C Order can be placed): Home, Self Care Charges/Coding Visit Charges Inpatient E&M: 91173 Disch Hosp >30min 11/07/23 1415 <Electronically signed by Alfonso Quiroz DO> Cosigner Signature (if applicable): CC: Dr. Carlo Diaz MD; Dr. Alfonso Quiroz DO~ Signed [facility] Work Phone: 1(499) 748-185503-01-2024 Progress note Author Alfonso Quiroz [facility] November 07, 2023 12:12pm Note Date/Time November 07, 2023 7:59 am [facility] Medical Records Department [address] [place] [address] Progress Note - Hospitalist 11/07/23 0756 MR#: [id number] Acct: [id number] Name: ADELA WELLS Rep #:[id number] : 1945 78 From: Alfonso Quiroz DO PCP: Dr. Carlo Diaz MD Status:ADM IN Location: [place] [address] Reason for Visit Reason for Visit: Diagnoses Non-ST elevation (NSTEMI) myocardial infarction (11/04/23) Acute on chronic systolic (congestive) heart failure (11/04/23) Subjective Subjective Complaining of shoulder aching. Objective Data Objective Data Vital Signs: Vital Signs Temp Pulse Resp BP Pulse Ox O2 Del Method O2 Flow Rate 36.4 C L 80 16 150/62 H 100 Nasal Cannula 1 11/07/23 03:00 11/07/23 03:00 11/07/23 03:00 11/07/23 03:00 11/07/23 03:00 11/07/23 03:00 11/07/23 03:00 Oxygen Flow Rate (L/min) 1 Oxygen Delivery Method Nasal Cannula Weight: 76.6 kg Body Mass Index (BMI) 31.8 Intake & Output: Intake and Output for Last 24 Hours 11/05/23 11/06/23 11/07/23 23:59 23:59 23:59 Intake Total 646.22 / 655.22 405.60 / 405.60 Output Total 1425 / 1425 1625 / 2075 950 / 950 Balance -778.78 / -769.78 -1219.40 / -1669.40 -950 / -950 Lab / Micro Data 11/05/23 08:13 11/07/23 06:30 Labs: Laboratory Results - last 24 hr 11/06/23 10:57: POC Glucose 227 H 11/06/23 17:03: POC Glucose 239 H 11/06/23 21:10: POC Glucose 209 H 11/07/23 06:30: Sodium 132 L, Potassium 3.8, Chloride 95 L, Carbon Dioxide 30.0,Anion Gap 7, BUN 46 H, Creatinine 1.83 H, Estim Creat Clear Calc 23.34, Est GFR (MDRD) Af Amer 34 L, Est GFR (MDRD) Non-Af 28 L, BUN/Creatinine Ratio 25.1 H, Glucose 130 H, Calcium 9.2 Physical Exam Const alert and no apparent distress HEENT head/scalp atraumatic and moist oral mucous membranes Resp normal respiratory effort, no retractions, no use of accessory muscles and clearto auscultation bilaterally Cardio regular rate, regular rhythm, S1 normal heart sound and S2 normal heart sound GI normal to inspection, nondistended, normoactive bowel sounds, soft to palpation,non-tender, non-distended and hepatosplenomegaly Neuro Sensorium / Orientation: awake and alert Assessment & Plan Assessment/Plan (1) NSTEMI (non-ST elevated myocardial infarction): PLAN: Plan NSTEMI * Type II demand ischemia from CHF exacerbation. * Heart cath showed nonobstructive coronary disease. Patient does have a chron ically occluded LAD that has been bypassed. Acute heart failure with reduced ejection fraction * EF of 45% from 2D echocardiogram from February 19, 2023. Complicated by pulmonary artery hypertension. Patient had pulmonary artery systolic pressure 54 mmHg at that time. Echo shows an EF 40%. Moderate global hypokinesis. * DC IV furosmeide as Creatinine has crept upwards from baseline. Change to PO. Continue spironolactone. * No VIDA-/ARB given CKD. Aching in UE * concern for PMR * no headache * check ESR and CRP. If positive, then would start prednisone 15 mg/d and pt may need referral to a preparation center coordinator. Chronic conditions * Diabetes mellitus type 2: Sliding scale insulin check an A1c. * Hypertension: Stable. * History of gout: Currently stable. Continue with allopurinol. VTE prophylaxis: LMWH CODE STATUS: Addressed with the patient. Patient unsure. Told patient we will leave her on full CODE STATUS but if she does change her mind to let us know. Charges/Coding Visit Charges Inpatient E&M: 13130 Subs Hosp L2 11/07/23 1212 <Electronically signed by Alfonso Quiroz DO> Cosigner Signature (if applicable): CC: ~ Signed [facility] Work Phone: 1(203) 971-862902-29-2024 Progress note Author Levy Graham [facility] November 06, 2023 1:23pm Note Date/Time November 06, 2023 1:23pm [facility] Medical Records Department [address] [place] [address] Progress Note - Cardiology 11/06/23 1320 MR#: [id number] Acct: [id number] Name: ADELA WELLS Rep #:[id number] : 1945 78 From: Levy ramírez MD PCP: Dr. Carlo Diaz MD Status:ADM IN Location: [place] [address] Subjective Subjective Patient underwent coronary angiography this morning. Tolerated it well. Reviewed films. Objective Data Vital Signs: Vital Signs Temp Pulse Resp BP Pulse Ox O2 Del Method O2 Flow Rate 97.8 F 73 14 121/45 H 96 Nasal Cannula 1 11/06/23 08:50 11/06/23 12:30 11/06/23 12:30 11/06/23 12:30 11/06/23 12:30 11/06/23 12:30 11/06/23 12:30 Oxygen Flow Rate (L/min) 1 Oxygen Delivery Method Nasal Cannula Weight: 172 lb 13.478 oz Body Mass Index (BMI) 32.6 Intake & Output: Intake and Output for Last 24 Hours 11/04/23 11/05/23 11/06/23 23:59 23:59 23:59 Intake Total 116.35 / 219.35 646.22 / 655.22 285.60 / 285.60 Output Total 600 / 650 1425 / 1425 900 / 900 Balance -483.65 / -430.65 -778.78 / -769.78 -614.40 / -614.40 Lab / Micro Data 11/05/23 08:13 11/06/23 06:25 Labs: Laboratory Results - last 24 hr 11/05/23 16:05: APTT 50.3 H 11/05/23 16:32: POC Glucose 210 H 11/05/23 21:02: POC Glucose 188 H 11/06/23 00:02: APTT 76.9 H 11/06/23 06:25: APTT 74.0 H, Sodium 133 L, Potassium 4.2, Chloride 98, Carbon Dioxide 28.0, Anion Gap 7, BUN 34 H, Creatinine 1.81 H, Estim Creat Clear Calc 23.89, Est GFR (MDRD) Af Amer 35 L, Est GFR (MDRD) Non-Af 29 L, BUN/Creatinine Ratio 18.8, Glucose 189 H, Calcium 9.1 11/06/23 06:48: POC Glucose 193 H 11/06/23 10:57: POC Glucose 227 H Cardiology Labs/Tests 11/05/23 16:05: APTT 50.3 H 11/06/23 00:02: APTT 76.9 H 11/06/23 06:25: APTT 74.0 H, Sodium 133 L, Potassium 4.2, Chloride 98, Carbon Dioxide 28.0, Anion Gap 7, BUN 34 H, Creatinine 1.81 H, Est GFR (MDRD) Af Amer 35 L, Est GFR (MDRD) Non-Af 29 L, BUN/Creatinine Ratio 18.8, Glucose 189 H, Calcium 9.1 Rhythm: EKG: ECHO: Stress Test: Cardiac Cath: PCI: CT Surgery: Holter monitor: EPS: PPM: CXR: Chest CT Scan: Physical Exam Const alert and oriented x3 HEENT normocephalic Eyes no scleral icterus Assessment & Plan Assessment/Plan (1) Congestive heart failure: QUALIFIERS: Heart failure type: systolic Heart failure chronicity: acute on chronic Qualified Code(s): I50.23 - Acute on chronic systolic (congestive) heart failure PLAN: Continue current medications. Patient can be switched to Lasix p.o. starting from tomorrow. (2) NSTEMI (non-ST elevated myocardial infarction): PLAN: Continue current medications. Angiogram done today. Recommend medical therapy. Reasonable to add Plavix 75 mg p.o. daily. Charges/Coding Visit Charges Inpatient E&M: 39224 Subs Hosp L1 11/06/23 1323 <Electronically signed by Levy Graham MD> Cosigner Signature (if applicable): CC: ~ Signed [facility] Work Phone: 1(503) 277-149602-29-2024 Progress note Author Alfonso Quiroz [facility] November 06, 2023 1:19pm Note Date/Time November 06, 2023 8:47am [facility] Medical Records Department [address] [place] [address] Progress Note - Hospitalist 11/06/23844 MR#: [id number] Acct: [id number] Name: ADELA WELLS Rep #:[id number] : 1945 78 From: Alfonso Quiroz DO PCP: Dr. Carlo Diaz MD Status:ADM IN Location: [place] [address] 1 Reason for Visit Reason for Visit: Diagnoses Non-ST elevation (NSTEMI) myocardial infarction (11/04/23) Acute on chronic systolic (congestive) heart failure (11/04/23) Subjective Subjective Patient had heart cath today. Patient was groggy wakes up briefly and quickly dozes off so unable to get history from her today. Objective Data Objective Data Vital Signs: Vital Signs Temp Pulse Resp BP Pulse Ox O2 Del Method O2 Flow Rate 36.6 C 76 19 H 134/62 H 96 Nasal Cannula 2 11/05/23 18:44 11/06/23 08:34 11/06/23 08:34 11/06/23 00:00 11/06/23 08:34 11/06/23 08:34 11/06/23 08:34 Oxygen Flow Rate (L/min) 2 Oxygen Delivery Method Nasal Cannula Weight: 78.4 kg Body Mass Index (BMI) 32.6 Intake & Output: Intake and Output for Last 24 Hours 11/04/23 11/05/23 11/06/23 23:59 23:59 23:59 Intake Total 116.35 / 219.35 646.22 / 655.22 173.4 / 173.4 Output Total 600 / 650 1425 / 1425 400 / 400 Balance -483.65 / -430.65 -778.78 / -769.78 -226.6 / -226.6 Lab / Micro Data 11/05/23 08:13 11/06/23 06:25 Labs: Laboratory Results - last 24 hr 11/05/23 05:41: POC Glucose 174 H 11/05/23 08:13: APTT 49.7 H, Sodium 137, Potassium 4.1, Chloride 103, Carbon Dioxide 29.0, Anion Gap 5, BUN 29 H, Creatinine 1.64 H, Estim Creat Clear Calc 26.36, Est GFR (MDRD) Af Amer 39 L, Est GFR (MDRD) Non-Af 32 L, BUN/Creatinine Ratio 17.7, Glucose 160 H, Hemoglobin A1c 6.8 H, Calcium 8.6, Total Bilirubin 0.70, AST 36, ALT 14, Alkaline Phosphatase 66, Total Protein 6.4, Albumin 2.7 L,Globulin 3.7, Albumin/Globulin Ratio 0.7 L, TSH 7.58 H 11/05/23 11:04: POC Glucose 175 H 11/05/23 16:05: APTT 50.3 H 11/05/23 16:32: POC Glucose 210 H 11/05/23 21:02: POC Glucose 188 H 11/06/23 00:02: APTT 76.9 H 11/06/23 06:25: APTT 74.0 H, Sodium 133 L, Potassium 4.2, Chloride 98, Carbon Dioxide 28.0, Anion Gap 7, BUN 34 H, Creatinine 1.81 H, Estim Creat Clear Calc 23.89, Est GFR (MDRD) Af Amer 35 L, Est GFR (MDRD) Non-Af 29 L, BUN/Creatinine Ratio 18.8, Glucose 189 H, Calcium 9.1 11/06/23 06:48: POC Glucose 193 H Radiography Diagnostic Testing: Radiology Impression Echocardiogram 11/04/23 12:08 Interpretation Summary The estimated ejection fraction is 40 %. Unable to assess diastolic dysfunction. There is moderate global hypokinesis of the left ventricle. The left atrium is mildly enlarged. Mild-Moderate (1-2+) mitral valve insufficiency. Ordering Physician: Alfonso Quiroz Performed By: Alphonso Orozco RCS Physical Exam Const Constitutional Narrative: Sleeping. Awoke to voice and noxious stimuli. Motors few words and falls back asleep. Nontoxic. No respiratory distress. Neck Neck Narrative: Positive JVD Resp Resp Narrative: Limited anteriorly but otherwise clear Cardio regular rate, regular rhythm, S1 normal heart sound and S2 normal heart sound GI normal to inspection, nondistended, normoactive bowel sounds, soft to palpation,non-tender and non-distended Extremity General Extremity: edema bilateral lower extremity Details: mild Assessment & Plan Assessment/Plan (1) NSTEMI (non-ST elevated myocardial infarction): PLAN: Plan NSTEMI * Type II demand ischemia from CHF exacerbation. * Heart cath showed nonobstructive coronary disease. Patient does have a chronically occluded LAD that has been bypassed. Acute heart failure with reduced ejection fraction * EF of 45% from 2D echocardiogram from February 19, 2023. Complicated by pulmonary artery hypertension. Patient had pulmonary artery systolic pressure 54 mmHg at that time. Echo shows an EF 40%. Moderate global hypokinesis. * Continue with IV furosemide Chronic conditions * Diabetes mellitus type 2: Sliding scale insulin check an A1c. * Hypertension: Stable. * History of gout: Currently stable. Continue with allopurinol. VTE prophylaxis: Not indicated as patient is anticoagulated. CODE STATUS: Addressed with the patient. Patient unsure. Told patient we will leave her on full CODE STATUS but if she does change her mind to let us know. Charges/Coding Visit Charges Inpatient E&M: 58635 Subs Hosp L2 11/06/23 7056 <Electronically signed by Alfonso Quiroz DO> Cosigner Signature (if applicable): CC: ~ Signed [facility] Work Phone: 1(986) 821-923902-28-2024 Progress note Author Levy Graham [facility] November 05, 2023 2:09pm Note Date/Time November 05, 2023 2:09pm [facility] Medical Records Department [address] [address] Progress Note - Cardiology 11/05/23 1406 MR#: [id number] Acct: [id number] Name: ADELA WELLS Rep #:[id number] : 1945 78 From: Levy ramírez MD PCP: Dr. Carlo Diaz MD Status:ADM IN Location: [place] [address] Subjective Subjective Shortness of breath is improved significantly. No further chest pressure. Objective Data Vital Signs: Vital Signs Temp Pulse Resp BP Pulse Ox O2 Del Method O2 Flow Rate 97.0 F L 78 20 H 131/56 H 99 Nasal Cannula 2 11/05/23 12:00 11/05/23 12:00 11/05/23 12:00 11/05/23 12:00 11/05/23 12:00 11/05/23 12:00 11/05/23 12:00 Oxygen Flow Rate (L/min) 2 Oxygen Delivery Method Nasal Cannula Weight: 172 lb 13.478 oz Body Mass Index (BMI) 32.6 Intake & Output: Intake and Output for Last 24 Hours 11/03/23 11/04/23 11/05/23 23:59 23:59 23:59 Intake Total 116.35 / 219.35 276.5 / 276.5 Output Total 600 / 650 1100 / 1100 Balance -483.65 / -430.65 -823.5 / -823.5 Lab / Micro Data 11/05/23 08:13 11/05/23 08:13 Labs: Laboratory Results - last 24 hr 11/04/23 16:07: Troponin [place] 35833 H* 11/04/23 16:27: POC Glucose 229 H 11/04/23 17:30: APTT 97.3 H* 11/04/23 20:52: POC Glucose 195 H 11/05/23 01:40: APTT 56.5 H 11/05/23 05:41: POC Glucose 174 H 11/05/23 08:13: WBC 11.6 H, RBC 3.23 L, Hgb 9.9 L, Hct 30.4 L, MCV 94.1, MCH 30.7, MCHC 32.6, RDW Std Deviation 47.0 H, RDW Coeff of Kamar 13.7, Plt Count 336,MPV 9.9, Immature Gran % (Auto) 0.300, Neut % (Auto) 79.5 H, Lymph % (Auto) 15.1L, Burnett % (Auto) 3.6, Eos % (Auto) 1.2, Baso % (Auto) 0.3, Absolute Neuts (auto)9.2 H, Absolute Lymphs (auto) 1.75, Nucleated RBC % 0, APTT 49.7 H, Sodium 137, Potassium 4.1, Chloride 103, Carbon Dioxide 29.0, Anion Gap 5, BUN 29 H, Creatinine 1.64 H, Estim Creat Clear Calc 26.36, Est GFR (MDRD) Af Amer 39 L, Est GFR (MDRD) Non-Af 32 L, BUN/Creatinine Ratio 17.7, Glucose 160 H, [id number] 6.8 H, Calcium 8.6, Total Bilirubin 0.70, AST 36, ALT 14, Alkaline Phosphatase 66, Total Protein 6.4, Albumin 2.7 L, Globulin 3.7, Albumin/GlobulinRatio 0.7 L, TSH 7.58 H 11/05/23 11:04: POC Glucose 175 H Cardiology Labs/Tests 11/04/23 17:30: APTT 97.3 H* 11/05/23 01:40: APTT 56.5 H 11/05/23 08:13: WBC 11.6 H, RBC 3.23 L, Hgb 9.9 L, Hct 30.4 L, MCV 94.1, MCH 30.7, MCHC 32.6, Plt Count 336, MPV 9.9, Immature Gran % (Auto) 0.300, Neut % (Auto) 79.5 H, Lymph % (Auto) 15.1 L, Burnett % (Auto) 3.6, Eos % (Auto) 1.2, Baso % (Auto) 0.3, Absolute Neuts (auto) 9.2 H, Nucleated RBC % 0, APTT 49.7 H, Sodium 137, Potassium 4.1, Chloride 103, Carbon Dioxide 29.0, Anion Gap 5, BUN 29 H, Creatinine 1.64 H, Est GFR (MDRD) Af Amer 39 L, Est GFR (MDRD) Non-Af 32 L, BUN/Creatinine Ratio 17.7, Glucose 160 H, Hemoglobin A1c 6.8 H, Calcium 8.6, Total Bilirubin 0.70 Rhythm: EKG: ECHO: Stress Test: Cardiac Cath: PCI: CT Surgery: Holter monitor: EPS: PPM: CXR: Chest CT Scan: Radiography Diagnostic Testing: Radiology Impression Echocardiogram 11/04/23 12:08 Interpretation Summary The estimated ejection fraction is 40 %. Unable to assess diastolic dysfunction. There is moderate global hypokinesis of the left ventricle. The left atrium is mildly enlarged. Mild-Moderate (1-2+) mitral valve insufficiency. Ordering Physician: Alfonso Quiroz Performed By: Alphonso Orozco RCS Physical Exam Const alert and oriented x3 HEENT normocephalic Eyes no scleral icterus Resp Resp Narrative: Crackles and decreased breath sounds in both bases. Cardio regular rate Extremity Extremity Narrative: 1-2+ bilateral pitting edema Psych mental status grossly normal Assessment & Plan Assessment/Plan (1) Congestive heart failure: QUALIFIERS: Heart failure type: systolic Heart failure chronicity: acute on chronic Qualified Code(s): I50.23 - Acute on chronic systolic (congestive) heart failure PLAN: Continue current medications. Likely cath tomorrow. (2) NSTEMI (non-ST elevated myocardial infarction): PLAN: Continue current medications. Agree with IV heparin. Likely cath tomorrow. patient is not on VIDA inhibitors due to CKD. Charges/Coding Visit Charges Inpatient E&M: 38800 Subs Hosp L2 11/05/23 9888 <Electronically signed by Levy Graham MD> Cosigner Signature (if applicable): CC: ~ Signed [facility] Work Phone: 1(296) 313-507202-28-2024 Progress note Author Alfonso [facility] November 05, 2023 12:09pm Note Date/Time November 05, 2023 8:05am [facility] Medical Records Department [address] [address] Progress Note - Hospitalist 11/05/23802 MR#: [id number] Acct: [id number] Name: ADELA WELLS Rep #:[id number] : 1945 78 From: Alfonso Quiroz DO PCP: Dr. Carlo Diaz MD Status:ADM IN Location: [place] [address] Reason for Visit Reason for Visit: Diagnoses Non-ST elevation (NSTEMI) myocardial infarction (11/04/23) Acute on chronic systolic (congestive) heart failure (11/04/23) Subjective Subjective Feels well. Objective Data Objective Data Vital Signs: Vital Signs Temp Pulse Resp BP Pulse Ox O2 Del Method O2 Flow Rate 36.4 C L 70 17 131/63 H 95 Nasal Cannula 3 11/05/23 00:00 11/05/23 07:08 11/05/23 07:08 11/05/23 07:00 11/05/23 07:08 11/05/23 07:08 11/05/23 07:08 Oxygen Flow Rate (L/min) 3 Oxygen Delivery Method Nasal Cannula Weight: 78.4 kg Body Mass Index (BMI) 32.6 Intake & Output: Intake and Output for Last 24 Hours 11/03/23 11/04/23 11/05/23 23:59 23:59 23:59 Intake Total 116.35 / 219.35 124 / 124 Output Total 600 / 650 350 / 350 Balance -483.65 / -430.65 -226 / -226 Lab / Micro Data 11/05/23 08:13 11/05/23 08:13 Labs: Laboratory Results - last 24 hr 11/04/23 10:03: WBC 18.1 H, RBC 3.64 L, Hgb 10.7 L, Hct 34.2 L, MCV 94.0, MCH 29.4, MCHC 31.3 L, RDW Std Deviation 47.9 H, RDW Coeff of Kamar 14.0, Plt Count 416, MPV 10.7, Immature Gran % (Auto) 0.500, Neut % (Auto) 91.5 H, Lymph % (Auto) 5.3 L, Burnett % (Auto) 2.2, Eos % (Auto) 0.2, Baso % (Auto) 0.3, Absolute Neuts (auto) 16.6 H, Absolute Lymphs (auto) 0.96, Nucleated RBC % 0, PT 13.8, INR 1.1, APTT 27.4, Sodium 136, Potassium 4.8, Chloride 106, Carbon Dioxide 23.0, Anion Gap 7, BUN 27 H, Creatinine 1.73 H, Est GFR (MDRD) Af Amer 37 L, Est GFR (MDRD) Non-Af 30 L, BUN/Creatinine Ratio 15.6, Glucose 242 H, Calcium 8.8, Troponin I High Sens 1610 H*, B-Natriuretic Peptide 1120.0 H 11/04/23 13:15: Troponin I High Sens 4561 H* 11/04/23 13:35: Urine Color Straw, Urine Clarity Clear, Urine pH 6.5, Ur Specific [place] 1.010, Urine Protein 30 H, Urine Glucose (UA) Normal, Urine Ketones Negative, Urine Occult Blood 25 H, Urine Nitrite Negative, Urine Bilirubin Negative, Urine Urobilinogen Normal, Ur Leukocyte Esterase 500 H, Urine RBC 0 SEEN, Urine WBC 10-25 SEEN, Ur Squamous Epith Cells 5-10 SEEN, UrineBacteria 2+, Urine Mucus 0 SEEN 11/04/23 16:07: Troponin I High Sens [id number] H* 11/04/23 16:27: POC Glucose 229 H 11/04/23 17:30: APTT 97.3 H* 11/04/23 20:52: POC Glucose 195 H 11/05/23 01:40: APTT 56.5 H Radiography Diagnostic Testing: Radiology Impression Chest X-Ray 11/04/23 11:05 IMPRESSION: Prior CABG. Findings suggestive of CHF with bibasilar scarring and/or atelectasis and small bilateral effusions. Electronically Signed: Brandyn Cheng MD at 11:35 EST , Physical Exam Const alert and no apparent distress HEENT head/scalp atraumatic and moist oral mucous membranes Resp normal respiratory effort, no retractions, no use of accessory muscles and clearto auscultation bilaterally Cardio regular rate, regular rhythm, S1 normal heart sound and S2 normal heart sound GI normal to inspection, nondistended, normoactive bowel sounds, soft to palpation,non-tender and non-distended Extremity normal to inspection Neuro Sensorium / Orientation: awake and alert Assessment & Plan Assessment/Plan (1) NSTEMI (non-ST elevated myocardial infarction): PLAN: Plan NSTEMI * Unclear type at this time * Continue with heparin and nitroglycerin drip * Check echocardiogram * Cycle troponins * Cardiology consultation. Plan for heart cath. * Continue with aspirin Acute heart failure with reduced ejection fraction * EF of 45% from 2D echocardiogram from February 19, 2023. Complicated by pulmonary artery hypertension. Patient had pulmonary artery systolic pressure 54 mmHg at that time. Echo shows an EF 40%. Moderate global hypokinesis. * Continue with IV furosemide and nitroglycerin drip. * Echo ordered. Chronic conditions * Diabetes mellitus type 2: Sliding scale insulin check an A1c. * Hypertension: Stable. * History of gout: Currently stable. Continue with allopurinol. VTE prophylaxis: Not indicated as patient is anticoagulated. CODE STATUS: Addressed with the patient. Patient unsure. Told patient we will leave her on full CODE STATUS but if she does change her mind to let us know. Charges/Coding Visit Charges Inpatient E&M: 52753 Subs Hosp L2 11/05/23 1209 <Electronically signed by Alfonso Quiroz DO> Cosigner Signature (if applicable): CC: ~ Signed [facility] Work Phone: 1(721) 526-353002-27-2024 Consult note Author Levy Graham [facility] November 04, 2023 5:31pm Note Date/Time November 04, 2023 5:23pm [facility] Medical Records Department [address] [place] [address] Consultation - Cardiology 11/04/23 1719 MR#: [id number] Acct: [id number] Name: ADELA WELLS Rep #:[id number] : 1945 78 From: Levy ramírez MD PCP: Dr. Carlo Diaz MD Status:ADM IN Location: [place] [id number]- Assessment & Plan Assessment/Plan (1) Congestive heart failure: QUALIFIERS: Heart failure type: systolic Heart failure chronicity: acute on chronic Qualified Code(s): I50.23 - Acute on chronic systolic (congestive) heart failure PLAN: Patient is currently in decompensated heart failure. I recommend Lasix IV40 mg twice daily. We may need to increase it if there is no response. (2) NSTEMI (non-ST elevated myocardial infarction): PLAN: Continue current medications. Agree with IV heparin. When patient's heart failure is improved, if creatinine is stable we will consider coronary angiography. Agree with 2D echo. Patient is not on VIDA inhibitors due to CKD. HPI Consult Data Date of Consult: 11/04/23 HPI Narrative Reason for Consultation: Shortness of breath, chest pressure HPI Narrative: ADELA WELLS, is a 78 F who presents with shortness of breath and chest pressure. Patient states that she has been having shortness of breath on and off for about 2 weeks but this morning it became particularly worse and she decided to come to the emergency room. She was in heart failure in the ER and was given Lasix and started on heparin drip because of elevated high-sensitivitytroponin and also nitroglycerin drip. Patient's chest pressure has resolved. She continues to have shortness of breath which is improved as well. She however cannot lie down flat due to shortness of breath. Her creatinine is elevated but appears to be better than many of the recent values. She has a history of coronary artery disease with 6 vessel bypass in 2007. In 2015, she had a non-ST myocardial infarction and underwent percutaneous balloon intervention of the mid RCA with stent placement and balloon angioplasty of the proximal RCA. She also underwent angioplasty of the saphenous vein graft to theposterior descending artery. In October 2019, she had angiography at [facility] after presenting with non-STEMI. At that time, she had patent HEART to LAD and 80% stenosis in the SVG to diagonal 1. Other grafts were felt to be occluded. She underwent a PCI of the saphenous vein graft to the first diagonalvessel and also the teller left circumflex artery with a drug-eluting stent. She did present to the emergency room in October of 2021 with shortness of breath as well as palpitations. Her blood pressure was noted to be elevated herlaboratory tests were noted to be normal. Her ejection fraction has been estimated to be 60% with no wall motion abnormalities present. She did have a stress test which was abnormal, however with her renal function and lack of cardiac symptoms it was opted to treat medically. Review of systems: All systems reviewed. All else is negative except in HPI. 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 Cardiomyopathy CHF (congestive heart failure) CKD (chronic kidney disease) COPD (chronic obstructive pulmonary disease) COVID-19 (~04/2022) Essential hypertension GERD (gastroesophageal reflux disease) History of non-ST elevation myocardial infarction (NSTEMI) (01/26/21) Hyperlipidemia Hypothyroidism Insect bite Morbid obesity NSTEMI (non-ST elevated myocardial infarction) Obesity 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 Type 2 diabetes mellitus without complication Vertigo Home Medications montelukast 10 mg tablet 10 mg PO DAILY ASTHMA 12/17/13 [History Last Taken 11/03/23] aspirin 81 mg tablet,delayed release 81 mg PO QDAY HEART HEALTH 11/19/17 [History Last Taken 11/03/23] cetirizine 10 mg tablet (Zyrtec) 10 mg PO QDAY allergies 02/15/20 [History Last Taken 11/03/23] allopurinol 100 mg tablet 100 mg PO DAILY GOUT 11/22/21 [History Last Taken 11/03/23] spironolactone 25 mg tablet 25 mg PO DAILY HEART 08/28/22 [History Last Taken 11/03/23] ipratropium 20 mcg-albuterol 100 mcg/actuation mist for inhalation (Combivent Respimat) 1 puff inhalation Q6H BREATHING 09/20/22 [History Last Taken 11/03/23] ferrous sulfate 325 mg (65 mg iron) tablet 325 mg PO BID SUPPLEMENT 10/04/22 [History Last Taken Unknown] furosemide 40 mg tablet (Lasix) 40 mg PO DAILY 12/25/22 [History Last Taken Unknown] cholecalciferol (vitamin D3) 25 mcg (1,000 unit) tablet 25 mcg PO SUTUTHSA 06/05/23 [History Last Taken 11/02/23] ezetimibe 10 mg tablet (Zetia) 10 mg PO DAILY #90 tabs 06/05/23 [Rx Last Taken Unknown] glipizide 10 mg tablet 2.5 mg PO DAILY DM 06/05/23 [History Last Taken Unknown] levothyroxine 100 mcg tablet 100 mcg PO DAILY THYROID 06/05/23 [History Last Taken 11/03/23] metoprolol tartrate 50 mg tablet 50 mg PO DAILY 06/05/23 [History Last Taken 11/03/23] prednisone 20 mg tablet 10 mg PO DAILY PRN pain 06/05/23 [History Last Taken Unknown] omeprazole 20 mg capsule,delayed release 20 mg PO DAILY 11/04/23 [History Last Taken 11/03/23] vitamins A,C,Y-mylb-pvfzpe 2,148 mcg-113 mg-45 mg-17.4 mg tablet (Eye Multivitamin) 1 tab PO BID 11/04/23 [History Last Taken 11/03/23] Allergy/AdvReac Type Severity Reaction Status Date / Time Anesthetics - Amide Type - Allergy Other Verified 11/04/23 09:40 Select A [Anesthetics - Amide Type] acetaminophen [From Tylenol] AdvReac Severe Other Verified 11/04/23 09:40 pravastatin AdvReac Intermediate Myalgias Verified 11/04/23 09:40 after 15 years of taking cinnamon AdvReac Unknown Unknown Verified 11/04/23 09:40 Penicillins AdvReac Unknown Unknown Verified 11/04/23 09:40 Family History Mother , age 86, advanced age No problems noted. Father Prostate cancer Surgical History H/O coronary artery bypass surgery (10/11/07) History of cholecystectomy History of coronary artery stent placement (01/26/21) History of hysterectomy Hx of appendectomy Hx of bilateral cataract extraction Social History (Updated 11/04/23 @ 13:06 by Saba Avitia) household members: family housing: house Smoking Status: Never smoker alcohol intake: never substance use type: does not use caffeine: Yes Type: carbonated beverages what type of physical activity do you participate in: none seatbelt use: always do you feel safe at home: Yes Physical Exam Const alert and oriented x3 HEENT normocephalic Eyes no scleral icterus Resp Resp Narrative: Bilateral crackles Cardio regular rate Risk Stratification Risk Stratification Applicable: No Charges/Coding Visit Charges Inpatient E&M: 96404 Init Hosp L2 Objective Data Vital Signs: Vital Signs Temp Pulse Resp BP Pulse Ox O2 Del Method O2 Flow Rate 97.9 F 88 18 148/82 H 94 Nasal Cannula 3 11/04/23 13:06 11/04/23 14:42 11/04/23 14:42 11/04/23 16:00 11/04/23 14:42 11/04/23 14:42 11/04/23 14:42 Oxygen Flow Rate (L/min) 3 Oxygen Delivery Method Nasal Cannula Weight: 178 lb 15.893 oz Body Mass Index (BMI) 33.8 Intake & Output: Intake and Output for Last 24 Hours 11/02/23 11/03/23 11/04/23 23:59 23:59 23:59 Intake Total 13.35 / 13.35 Balance 13.35 / 13.35 Lab / Micro Data 11/04/23 10:03 11/04/23 10:03 Labs: Laboratory Results - last 24 hr 11/04/23 10:03: WBC 18.1 H, RBC 3.64 L, Hgb 10.7 L, Hct 34.2 L, MCV 94.0, MCH 29.4, MCHC 31.3 L, RDW Std Deviation 47.9 H, RDW Coeff of Kamar 14.0, Plt Count 416, MPV 10.7, Immature Gran % (Auto) 0.500, Neut % (Auto) 91.5 H, Lymph % (Auto) 5.3 L, [place] % (Auto) 2.2, Eos % (Auto) 0.2, Baso % (Auto) 0.3, Absolute Neuts (auto) 16.6 H, Absolute Lymphs (auto) 0.96, Nucleated RBC % 0, PT 13.8, INR 1.1, APTT 27.4, Sodium 136, Potassium 4.8, Chloride 106, Carbon Dioxide 23.0, Anion Gap 7, BUN 27 H, Creatinine 1.73 H, Est GFR (MDRD) Af Amer 37 L, EstGFR (MDRD) Non-Af 30 L, BUN/Creatinine Ratio 15.6, Glucose 242 H, Calcium 8.8, Troponin I High Sens 1610 H*, B-Natriuretic Peptide 1120.0 H 11/04/23 13:15: Troponin I High Sens 4561 H* 11/04/23 13:35: Urine Color Straw, Urine Clarity Clear, Urine pH 6.5, Ur Specific [place] 1.010, Urine Protein 30 H, Urine Glucose (UA) Normal, Urine Ketones Negative, Urine Occult Blood 25 H, Urine Nitrite Negative, Urine Bilirubin Negative, Urine Urobilinogen Normal, Ur Leukocyte Esterase 500 H, Urine RBC 0 SEEN, Urine WBC 10-25 SEEN, Ur Squamous Epith Cells 5-10 SEEN, UrineBacteria 2+, Urine Mucus 0 SEEN 11/04/23 16:07: Troponin [place] 97052 H* 11/04/23 16:27: POC Glucose 229 H Cardiology Labs/Tests 11/04/23 10:03: WBC 18.1 H, RBC 3.64 L, Hgb 10.7 L, Hct 34.2 L, MCV 94.0, MCH 29.4, MCHC 31.3 L, Plt Count 416, MPV 10.7, Immature Gran % (Auto) 0.500, Neut %(Auto) 91.5 H, Lymph % (Auto) 5.3 L, [place] % (Auto) 2.2, Eos % (Auto) 0.2, Baso %(Auto) 0.3, Absolute Neuts (auto) 16.6 H, Nucleated RBC % 0, PT 13.8, INR 1.1, APTT 27.4, Sodium 136, Potassium 4.8, Chloride 106, Carbon Dioxide 23.0, Anion Gap 7, BUN 27 H, Creatinine 1.73 H, Est GFR (MDRD) Af Amer 37 L, Est GFR (MDRD) Non-Af 30 L, BUN/Creatinine Ratio 15.6, Glucose 242 H, Calcium 8.8, B-Natriuretic Peptide 1120.0 H 11/04/23 13:35: Urine Color Straw, Urine Clarity Clear, Urine pH 6.5, Ur Specific [place] 1.010, Urine Protein 30 H, Urine Glucose (UA) Normal, Urine Ketones Negative, Urine Occult Blood 25 H, Urine Nitrite Negative, Urine Bilirubin Negative, Urine Urobilinogen Normal, Ur Leukocyte Esterase 500 H, Urine RBC 0 SEEN, Urine WBC 10-25 SEEN Rhythm: EKG: ECHO: Stress Test: Cardiac Cath: PCI: CT Surgery: Holter monitor: EPS: PPM: CXR: Chest CT Scan: Radiography Diagnostic Testing: Radiology Impression Chest X-Ray 11/04/23 11:05 IMPRESSION: Prior CABG. Findings suggestive of CHF with bibasilar scarring and/or atelectasis and small bilateral effusions. Electronically Signed: Brandyn Cheng MD at 11:35 EST , 11/04/23 1731 <Electronically signed by Levy Graham MD> Cosigner Signature (if applicable): CC: Dr. Carlo Diaz MD; Dr. Levy Graham MD~ Signed [facility] Work Phone: 1(842) 550-578302-27-2024 Discharge summary Author Alfonso Padilla [facility] November 04, 2023 2:55pm Note Date/Time November 04, 2023 9:58am [facility] Medical Records Department [address] [place] [address] Emergency Department Summary 11/04/23 MR#: [id number] Acct: [id number] Name: ADELA WELLS Rep #:[id number] : 1945 78 From: Alfonso Duggan PCP: Dr. Carlo Diaz MD Status:ADM IN Location: [place] [address] HPI History of Present Illness Chief Complaint: Shortness of Breath Informant: patient and family Onset/Context/Timing Onset: Today Context: gradual Timing: Continuous Quality: Positive for Dyspnea on exertion Worsened by: Exertion Relieved by: Rest Associated Symptoms cough; Negative for rhinorrhea, post nasal drip, ear pain, fever, sore throat, chills, sweats, clear sputum, white sputum, yellow sputum or green sputum Chest Pain: Positive for Pressure Narrative Narrative: Patient presents with shortness of breath and chest pain that began today. Patient states her breathing is worse with any exertion. Patient states it is gradually gotten worse throughout the day. Patient states that she has a chronic cough but denies any sputum production. Patient admits to some pressurein her chest. Patient denies any fevers or chills. Patient denies any sore throat or rhinorrhea. Patient denies any increase in leg swelling. PE Risk Factors: Negative for Cancer, OCP + Smoking + > 35, Prior DVT or PE, Recent immobilization, Recent surgery or Recent travel 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 Cardiomyopathy CHF (congestive heart failure) CKD (chronic kidney disease) COPD (chronic obstructive pulmonary disease) COVID-19 (~04/2022) Essential hypertension GERD (gastroesophageal reflux disease) History of non-ST elevation myocardial infarction (NSTEMI) (01/26/21) Hyperlipidemia Hypothyroidism Insect bite Morbid obesity NSTEMI (non-ST elevated myocardial infarction) Obesity 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 Type 2 diabetes mellitus without complication Vertigo Home Medications montelukast 10 mg tablet 10 mg PO DAILY ASTHMA 12/17/13 [History Last Taken 11/03/23] aspirin 81 mg tablet,delayed release 81 mg PO QDAY HEART HEALTH 11/19/17 [History Last Taken 11/03/23] cetirizine 10 mg tablet (Zyrtec) 10 mg PO QDAY allergies 02/15/20 [History Last Taken 11/03/23] allopurinol 100 mg tablet 100 mg PO DAILY GOUT 11/22/21 [History Last Taken 11/03/23] spironolactone 25 mg tablet 25 mg PO DAILY HEART 08/28/22 [History Last Taken 11/03/23] ipratropium 20 mcg-albuterol 100 mcg/actuation mist for inhalation (Combivent Respimat) 1 puff inhalation Q6H BREATHING 09/20/22 [History Last Taken 11/03/23] ferrous sulfate 325 mg (65 mg iron) tablet 325 mg PO BID SUPPLEMENT 10/04/22 [History Last Taken Unknown] furosemide 40 mg tablet (Lasix) 40 mg PO DAILY 12/25/22 [History Last Taken Unknown] cholecalciferol (vitamin D3) 25 mcg (1,000 unit) tablet 25 mcg PO SUTUTHSA 06/05/23 [History Last Taken 11/02/23] ezetimibe 10 mg tablet (Zetia) 10 mg PO DAILY #90 tabs 06/05/23 [Rx Last Taken Unknown] glipizide 10 mg tablet 2.5 mg PO DAILY DM 06/05/23 [History Last Taken Unknown] levothyroxine 100 mcg tablet 100 mcg PO DAILY THYROID 06/05/23 [History Last Taken 11/03/23] metoprolol tartrate 50 mg tablet 50 mg PO DAILY 06/05/23 [History Last Taken 11/03/23] prednisone 20 mg tablet 10 mg PO DAILY PRN pain 06/05/23 [History Last Taken Unknown] omeprazole 20 mg capsule,delayed release 20 mg PO DAILY 11/04/23 [History Last Taken 11/03/23] vitamins A,C,Z-uwfm-jhwhgl 2,148 mcg-113 mg-45 mg-17.4 mg tablet (Eye Multivitamin) 1 tab PO BID 11/04/23 [History Last Taken 11/03/23] Allergy/AdvReac Type Severity Reaction Status Date / Time Anesthetics - Amide Type - Allergy Other Verified 11/04/23 09:40 Select A [Anesthetics - Amide Type] acetaminophen [From Tylenol] AdvReac Severe Other Verified 11/04/23 09:40 pravastatin AdvReac Intermediate Myalgias Verified 11/04/23 09:40 after 15 years of taking cinnamon AdvReac Unknown Unknown Verified 11/04/23 09:40 Penicillins AdvReac Unknown Unknown Verified 11/04/23 09:40 Family History Mother , age 86, advanced age No problems noted. Father Prostate cancer Surgical History H/O coronary artery bypass surgery (10/11/07) History of cholecystectomy History of coronary artery stent placement (01/26/21) History of hysterectomy Hx of appendectomy Hx of bilateral cataract extraction Social History (Updated 11/04/23 @ 13:06 by Saba Avitia) household members: family housing: house Smoking Status: Never smoker alcohol intake: never substance use type: does not use caffeine: Yes Type: carbonated beverages what type of physical activity do you participate in: none seatbelt use: always do you feel safe at home: Yes ROS ROS ED Constitutional Constitutional ED: Denies chills or fever(s) Eyes Eyes: Denies blurry vision or change in vision ENT ENT ED: Denies rhinorrhea or sore throat Cardiovascular Cardiovascular: Reports chest pain; Denies palpitations Respiratory/Chest Respiratory/Chest: Reports cough and dyspnea Gastrointestinal Gastrointestinal: Denies nausea or vomiting Genitourinary Genitourinary ED: Denies dysuria or hematuria Musculoskeletal Musculoskeletal: Reports back pain; Denies neck pain Integumentary Denies abscess or rash Neurologic Neurologic: Denies headache(s) or weakness Allergic/Immunologic Allergic/Immunologic ED: Denies mouth swelling or urticaria EXAM Physical Exam Const Vital Signs: 11/04/23 09:39 11/04/23 10:01 11/04/23 10:03 Temperature 96.9 F L Temperature Source Temporal Pulse Rate 119 H 123 H Respiratory Rate 22 H 22 H Respiratory Effort Short of Breath Respiratory Depth Shallow Respiratory Pattern Tachypnea Blood Pressure 162/87 H 180/100 H Blood Pressure Mean 112 126 Pulse Ox 94 97 Oxygen Delivery Method Room Air Nasal Cannula Oxygen Flow Rate (L/min) 3 11/04/23 10:35 11/04/23 11:26 11/04/23 11:33 Temperature Temperature Source Pulse Rate 118 H Respiratory Rate 20 H Respiratory Effort Respiratory Depth Respiratory Pattern Blood Pressure 211/103 H 157/126 H Blood Pressure Mean 139 136 Pulse Ox 100 100 Oxygen Delivery Method Nasal Cannula Nasal Cannula Oxygen Flow Rate (L/min) 3 3 Positive well nourished and well developed General Appearance ED: well developed and NAD HEENT Reports moist mucous membranes Neck supple and no JVD Resp Auscultation: rales bilateral lower Cardio regular rhythm Rate: tachycardic GI non-tender and non-distended Palpation: soft Extremity General Extremety ED: Yes edema; Negative for tenderness General Extremity: edema Neuro oriented x3, CN's II-XII intact bilaterally and no sensory deficits noted [place] Coma Scale: document GCS findings Spontaneous Obeys Commands Oriented 15 Sensorium / Orientation: alert Motor Exam: strength 5/5 throughout Psych mental status grossly normal MDM MDM MDM Narrative Medical decision making narrative: Differential diagnosis includes cardiac dysrhythmia, cardiac ischemia, congestive heart failure, pneumonia, pneumothorax, viral illness, and anxiety. EKG will be obtained to assess for cardiac dysrhythmia and cardiac ischemia. Chest x-ray will be obtained to assess for pneumonia and congestive heart failure. CBC will be obtained to assess for leukocytosis and anemia. Basic metabolic profile will be obtained to assess for electrolyte abnormality and renal function. High-sensitivity troponin will be obtained to assess for cardiac ischemia. 2-hour repeat high-sensitivity troponin will be obtained to assess for ongoing cardiac ischemia. BNP will be obtained to assess for congestive heart failure. Lab Data Attestation: I reviewed the patient's lab results. Lab results narrative: CBC was reviewed. There is a mild leukocytosis of 18.1. Hemoglobin was 10.8 and hematocrit is 34.2. Platelets were normal. Basic metabolic profile was reviewed. BUN was 27 and creatinine was 1.73. These are consistent with prior results. High-sensitivity troponin was reviewed and was elevated at 1610. BNP was reviewed and was elevated at 1120. Labs: Laboratory Results - last 24 hr 11/04/23 10:03 WBC 18.1 H RBC 3.64 L Hgb 10.7 L Hct 34.2 L MCV 94.0 MCH 29.4 MCHC 31.3 L RDW Std Deviation 47.9 H RDW Coeff of Kamar 14.0 Plt Count 416 MPV 10.7 Immature Gran % (Auto) 0.500 Neut % (Auto) 91.5 H Lymph % (Auto) 5.3 L Burnett % (Auto) 2.2 Eos % (Auto) 0.2 Baso % (Auto) 0.3 Absolute Neuts (auto) 16.6 H Absolute Lymphs (auto) 0.96 Nucleated RBC % 0 PT 13.8 INR 1.1 APTT 27.4 Sodium 136 Potassium 4.8 Chloride 106 Carbon Dioxide 23.0 Anion Gap 7 BUN 27 H Creatinine 1.73 H Est GFR (MDRD) Af Amer 37 L Est GFR (MDRD) Non-Af 30 L BUN/Creatinine Ratio 15.6 Glucose 242 H Calcium 8.8 Troponin I High Sens 1610 H* B-Natriuretic Peptide 1120.0 H Radiography Chest X-Ray - ED: 1 View, Read by ED Physician, Read by Radiologist, Chronic Changes and CHF Diagnostic Testing: Clinical Impression(s) from Imaging Studies Chest X-Ray 11/04/23 11:05 IMPRESSION: Prior CABG. Findings suggestive of CHF with bibasilar scarring and/or atelectasis and small bilateral effusions. Electronically Signed: Brandyn Cheng MD at 11:35 EST , Portable chest x-ray was obtained. There is 1 view. On my independent interpretation, there is evidence of congestive heart failure. There are chronic changes with bibasilar scarring and atelectasis. There are small bilateral effusions. Bony thorax is normal. Radiologist also interpreted the x-ray and agrees. EKG Initial EKG: Attestation: I personally reviewed and interpreted this EKG as follows: Interpretation: Sinus Tachycardia (122) and Non-Specific ST Changes Comments: EKG was obtained. On my independent interpretation, it shows a sinus tachycardia with a rate of 122. LA interval was normal at 100 ms. QRS interval was normal at 106 ms. QTc interval was normal at 444 ms. [place] was normal. There are nonspecific ST-T wave changes noted. Prior EKG tracings: available for review Prior: Changed (Compared to previous EKG dated 06/04/2023, the nonspecific ST-T wave changes in the lateral leads are more pronounced.) Follow-up EKG: Attestation: I personally reviewed and interpreted this EKG as follows: Interpretation: Sinus Tachycardia (119) and Non-Specific ST Changes Comments: Repeat EKG was obtained. On my independent interpretation, it shows sinus tachycardia with a rate of 119. LA interval was normal at 136 ms. QRS interval was normal at 102 ms. QTc interval was normal at 455 ms. [place] wasnormal. There are nonspecific ST-T wave changes noted in the lateral leads which are similar to previous EKG done earlier today. There is no evidence of ST elevation. Prior EKG tracings: available for review Prior: Unchanged Management Discussion w/another healthcare provider: Hospitalist and Production Packager Treatment and Re-Evaluation :: Patient had aspirin prior to arrival. Because of the elevated troponin and elevated BNP, patient was started on nitroglycerin drip. Patient was given a dose of Lasix. Patient was given a dose of morphine. Patient was also started on heparin drip. Case was discussed with Dr. Graham from cardiology. He hadno further recommendations. He will follow along with the patient in the hospital. Case was discussed with the hospitalist. He will admit the patient to his service. Patient and family understood and were agreeable with the plan. All questions were answered. Critical Care Time Critical Care Time: Yes Critical care time (excluding procedures): 30-74 minutes (34), Including time spent:, Discussing w/Patient &/or Family/Digital Sales Representative, Discussing w/Consultants, Arranging Admission or Transfer and Performing Direct Patient Care at Bedside Discharge Plan Dx/Rx/DC Orders Clinical Impression: Congestive heart failure, NSTEMI (non-ST elevated myocardial infarction), Cardiomyopathy Disposition Disposition: Acute Care Hospital [facility] Discharge Date/Time: 11/04/23 12:38 What to do if you have Problems For any increased pain, shortness of breath, bleeding, nausea or vomiting, chestpain, or any unexpected problems, contact your Primary Care Provider. Call [facility] ([phone]) or report to the closest Emergency Room. Call 911 if necessary. 11/04/23 7056 <Electronically signed by Alfonso Padilla DO> Cosigner Signature (if applicable): CC: Dr. Carlo Diaz MD ~ Signed [facility] Work Phone: 1(378) 304-231802-27-2024 History and physical note Author Alfonso Quiroz [facility] November 04, 2023 12:26pm Note Date/Time November 04, 2023 12:26pm [facility] Medical Records Department [address] [place] [id number] H&P Exam - Hospitalist 11/04/23 1219 MR#: [id number] Acct: [id number] Name: ADELA WELLS Rep #:[id number] : 1945 78 From: Alfonso Quiroz DO PCP: Dr. Carlo Diaz MD Status:ADM IN Location: [facility] [id number] HPI - General General Date of Service: 11/04/23 Chief Complaint: shortness of breath. HPI Narrative ADELA WELLS, is a 78 F who presents with shortness of breath. Symptoms beganaround 0700. Denies any chest pain. Presented to the emergency room and was placed on oxygen. Had a workup Showed a white count of 18,000, troponin of 1610, BNP of 1120. Chest x-ray showed bilateral pleural effusions. Patient was started on heparin drip, nitroglycerin drip and received a dose of IV furosemide. Cardiology was consulted from the ER. Patient is currently feeling fine at this time. 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 Cardiomyopathy CHF (congestive heart failure) CKD (chronic kidney disease) COPD (chronic obstructive pulmonary disease) COVID-19 (~04/2022) Essential hypertension GERD (gastroesophageal reflux disease) History of non-ST elevation myocardial infarction (NSTEMI) (01/26/21) Hyperlipidemia Hypothyroidism Insect bite Morbid obesity NSTEMI (non-ST elevated myocardial infarction) Obesity 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 Type 2 diabetes mellitus without complication Vertigo Home Medications montelukast 10 mg tablet 10 mg PO DAILY ASTHMA 12/17/13 [History Last Taken 11/03/23] aspirin 81 mg tablet,delayed release 81 mg PO QDAY HEART HEALTH 11/19/17 [History Last Taken 11/03/23] cetirizine 10 mg tablet (Zyrtec) 10 mg PO QDAY allergies 02/15/20 [History Last Taken 11/03/23] allopurinol 100 mg tablet 100 mg PO DAILY GOUT 11/22/21 [History Last Taken 11/03/23] spironolactone 25 mg tablet 25 mg PO DAILY HEART 08/28/22 [History Last Taken 11/03/23] ipratropium 20 mcg-albuterol 100 mcg/actuation mist for inhalation (Combivent Respimat) 1 puff inhalation Q6H BREATHING 09/20/22 [History Last Taken 11/03/23] ferrous sulfate 325 mg (65 mg iron) tablet 325 mg PO BID SUPPLEMENT 10/04/22 [History Last Taken Unknown] furosemide 40 mg tablet (Lasix) 40 mg PO DAILY 12/25/22 [History Last Taken Unknown] cholecalciferol (vitamin D3) 25 mcg (1,000 unit) tablet 25 mcg PO SUTUTHSA 06/05/23 [History Last Taken 11/02/23] ezetimibe 10 mg tablet (Zetia) 10 mg PO DAILY #90 tabs 06/05/23 [Rx Last Taken Unknown] glipizide 10 mg tablet 2.5 mg PO DAILY DM 06/05/23 [History Last Taken Unknown] levothyroxine 100 mcg tablet 100 mcg PO DAILY THYROID 06/05/23 [History Last Taken 11/03/23] metoprolol tartrate 50 mg tablet 50 mg PO DAILY 06/05/23 [History Last Taken 11/03/23] prednisone 20 mg tablet 10 mg PO DAILY PRN pain 06/05/23 [History Last Taken Unknown] omeprazole 20 mg capsule,delayed release 20 mg PO DAILY 11/04/23 [History Last Taken 11/03/23] vitamins A,C,H-xovu-jykurj 2,148 mcg-113 mg-45 mg-17.4 mg tablet (Eye Multivitamin) 1 tab PO BID 11/04/23 [History Last Taken 11/03/23] Allergy/AdvReac Type Severity Reaction Status Date / Time Anesthetics - Amide Type - Allergy Other Verified 11/04/23 09:40 Select A [Anesthetics - Amide Type] acetaminophen [From Tylenol] AdvReac Severe Other Verified 11/04/23 09:40 pravastatin AdvReac Intermediate Myalgias Verified 11/04/23 09:40 after 15 years of taking cinnamon AdvReac Unknown Unknown Verified 11/04/23 09:40 Penicillins AdvReac Unknown Unknown Verified 11/04/23 09:40 Family History Mother , age 86, advanced age No problems noted. Father Prostate cancer Surgical History H/O coronary artery bypass surgery (10/11/07) History of cholecystectomy History of coronary artery stent placement (01/26/21) History of hysterectomy Hx of appendectomy Hx of bilateral cataract extraction Social History Smoking Status: Never smoker alcohol intake: never substance use type: does not use caffeine: Yes Type: carbonated beverages what type of physical activity do you participate in: none seatbelt use: always do you feel safe at home: Yes ROS CANDICE Clark Does have chronic lower extremity edema, states that there is been no change with that. States that over the past year to year and a half she has lost over 50 pounds. This weight loss is due to dietary changes that she is not taking. All review of systems were negative except as mentioned above in the history of present illness and the other review of systems. Vital Signs Vital Signs Vital Signs: 11/04/23 09:39 11/04/23 10:01 11/04/23 10:03 Temperature 36.1 C L Temperature Source Temporal Pulse Rate 119 H 123 H Respiratory Rate 22 H 22 H Respiratory Effort Short of Breath Respiratory Depth Shallow Respiratory Pattern Tachypnea Blood Pressure 162/87 H 180/100 H Blood Pressure Mean 112 126 Pulse Ox 94 97 Oxygen Delivery Method Room Air Nasal Cannula Oxygen Flow Rate (L/min) 3 11/04/23 10:35 11/04/23 11:26 11/04/23 11:33 Temperature Temperature Source Pulse Rate 118 H Respiratory Rate 20 H Respiratory Effort Respiratory Depth Respiratory Pattern Blood Pressure 211/103 H 157/126 H Blood Pressure Mean 139 136 Pulse Ox 100 100 Oxygen Delivery Method Nasal Cannula Nasal Cannula Oxygen Flow Rate (L/min) 3 3 Weight Weight: 87.3 kg Body Mass Index (BMI) 36.3 Physical Exam Const alert and no apparent distress Constitutional Narrative: Sitting at the side of the bed. Flat affect. Nontoxic. Minimal eye contact. General Appearance: cooperative HEENT normocephalic and head/scalp atraumatic Eyes Eyes Narrative: Glasses. No icterus Neck Neck Narrative: Positive JVD Resp normal respiratory effort, no retractions, no use of accessory muscles and clearto auscultation bilaterally Cardio regular rate, regular rhythm, S1 normal heart sound and S2 normal heart sound GI normal to inspection, nondistended, normoactive bowel sounds, soft to palpation,non-tender and non-distended Extremity Extremity Narrative: Lower extremity edema, nonpitting. Skin Skin Narrative: Venous stasis dermatitis lower extremities. Neuro moves all extremities Sensorium / Orientation: awake and alert Psych Psych Narrative: Flat affect. Results Lab / Micro Data Attestation: I reviewed the patient's lab results. 11/04/23 10:03 11/04/23 10:03 Labs: Laboratory Results - last 24 hr 11/04/23 10:03: WBC 18.1 H, RBC 3.64 L, Hgb 10.7 L, Hct 34.2 L, MCV 94.0, MCH 29.4, MCHC 31.3 L, RDW Std Deviation 47.9 H, RDW Coeff of Kamar 14.0, Plt Count 416, MPV 10.7, Immature Gran % (Auto) 0.500, Neut % (Auto) 91.5 H, Lymph % (Auto) 5.3 L, Burnett % (Auto) 2.2, Eos % (Auto) 0.2, Baso % (Auto) 0.3, Absolute Neuts (auto) 16.6 H, Absolute Lymphs (auto) 0.96, Nucleated RBC % 0, Sodium 136,Potassium 4.8, Chloride 106, Carbon Dioxide 23.0, Anion Gap 7, BUN 27 H, Creatinine 1.73 H, Est GFR (MDRD) Af Amer 37 L, Est GFR (MDRD) Non-Af 30 L, BUN/Creatinine Ratio 15.6, Glucose 242 H, Calcium 8.8, Troponin I High Sens 1610H*, B-Natriuretic Peptide 1120.0 H EKG Initial EKG: Attestation: I personally reviewed and interpreted this EKG as follows: Prior EKG tracings: available for review EKG Rhythm Intrepretation: Sinus Tachycardia Imaging Radiology Impression Chest X-Ray 11/04/23 11:05 IMPRESSION: Prior CABG. Findings suggestive of CHF with bibasilar scarring and/or atelectasis and small bilateral effusions. Electronically Signed: Brandyn Cheng MD at 11:35 EST Reading Location ID and State: [address] [place] [address] , Service support , Assessment & Plan Assessment/Plan (1) NSTEMI (non-ST elevated myocardial infarction): PLAN: Plan NSTEMI * Unclear type at this time * Continue with heparin and nitroglycerin drip * Check echocardiogram * Cycle troponins * Cardiology consultation * Continue with aspirin Acute heart failure with reduced ejection fraction * EF of 45% from 2D echocardiogram from February 19, 2023. Complicated by pulmonary artery hypertension. Patient had pulmonary artery systolic pressure 54 mmHg at that time. * Continue with IV furosemide and nitroglycerin drip. * Echo ordered. Chronic conditions * Diabetes mellitus type 2: Sliding scale insulin check an A1c. * Hypertension: Stable. * History of gout: Currently stable. Continue with allopurinol. VTE prophylaxis: Not indicated as patient is anticoagulated. CODE STATUS: Addressed with the patient. Patient unsure. Told patient we will leave her on full CODE STATUS but if she does change her mind to let us know. Charges/Coding Visit Charges Inpatient E&M: 44786 Init Hosp L3 11/04/23 1226 <Electronically signed by Alfonso Quiroz DO> Cosigner Signature (if applicable): CC: Dr. Carlo Diaz MD; Dr. Alfonso Quiroz DO~ Signed [facility] Work Phone: 1(205) 409-178805-31-[address] Rodriguez [facility] February 05, 2023 7:39pm Note Date/Time February 05, 2023 7:37p [facility] Medical Records Department [address] [address] Emergency Department Summary 02/05/23 MR#: [id number] Acct: [id number] Name: ADELA WELLS Rep #:[id number] : 1945 77 From: Heriberto Rodriguez MD PCP: Dr. Carlo Diaz MD Status:REG ER Location: ED HPI History of Present Illness Chief Complaint: Upper Extremity Injury Narrative Narrative: Patient presents with 3 different complaints. She is complaining of right hip pain and left elbow pain, as well as dysuria and strong smelling urine similar to prior UTIs. No fever or chills no history of trauma. The musculoskeletal complaints have been about a month. The urinary symptoms started today. 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 Type 2 diabetes mellitus without complication Vertigo Home Medications montelukast 10 mg tablet 10 mg PO DAILY ASTHMA 12/17/13 [History Last Taken 09/19/22] aspirin 81 mg tablet,delayed release 81 mg PO QDAY HEART HEALTH 11/19/17 [History Last Taken 09/20/22] cetirizine 10 mg tablet (Zyrtec) 10 mg PO QDAY allergies 02/15/20 [History Last Taken 09/19/22] allopurinol 100 mg tablet 100 mg PO DAILY GOUT 11/22/21 [History Last Taken 09/19/22] glipizide 10 mg tablet 5 mg PO BID DM 05/24/22 [History Last Taken 09/19/22] folic acid 1 mg tablet 1 mg PO DAILY SUPPLEMENT 08/28/22 [History Last Taken 09/19/22] spironolactone 25 mg tablet 25 mg PO DAILY HEART 08/28/22 [History Last Taken 09/20/22] ipratropium 20 mcg-albuterol 100 mcg/actuation mist for inhalation ([employer] Respimat) 1 puff inhalation Q6H BREATHING 09/20/22 [History Last Taken 09/20/22] pantoprazole 40 mg tablet,delayed release 40 mg PO BID 30 days #60 tabs 09/23/22[Rx Last Taken Unknown] ferrous sulfate 325 mg (65 mg iron) tablet 325 mg PO BID SUPPLEMENT 10/04/22 [History Last Taken Unknown] carvedilol 25 mg tablet 25 mg PO BID #180 tabs 12/25/22 [Rx Last Taken Unknown] furosemide 40 mg tablet (Lasix) 40 mg PO DAILY 12/25/22 [History Last Taken Unknown] levothyroxine 100 mcg tablet 88 mcg PO DAILY THYROID 12/25/22 [History Last Taken Unknown] sulfamethoxazole 800 mg-trimethoprim 160 mg tablet (Bactrim DS) 1 tab PO BID #14tabs 02/05/23 [Rx Last Taken Unknown] tramadol 50 mg tablet 50 mg PO Q4H PRN PRN Pain 3 days #12 tabs 02/05/23 [Rx Last Taken Unknown] Allergy/AdvReac Type Severity Reaction Status Date / Time Anesthetics - Amide Type - Allergy Other Verified 02/05/23 17:56 Select A [Anesthetics - Amide Type] acetaminophen [From Tylenol] AdvReac Severe Other Verified 02/05/23 17:56 pravastatin AdvReac Intermediate Myalgias Verified 02/05/23 18:00 after 15 years of taking cinnamon AdvReac Unknown Unknown Verified 02/05/23 17:56 Penicillins AdvReac Unknown Unknown Verified 02/05/23 17:56 Family History Mother , age 86, advanced age No problems noted. Father Prostate cancer Surgical History H/O coronary artery bypass surgery (10/11/07) History of cholecystectomy History of coronary artery stent placement (01/26/21) History of hysterectomy Hx of appendectomy Hx of bilateral cataract extraction Social History Smoking Status: Never smoker alcohol intake: never substance use type: does not use caffeine: Yes Type: carbonated beverages what type of physical activity do you participate in: none seatbelt use: always do you feel safe at home: Yes ROS ROS ED ROS Narrative Past medical history: Reviewed Medications: Reviewed Social history: Noncontributory Review of systems: All systems negative except as indicated General: No fever Cardiovascular: No chest pain Respiratory: No shortness of breath or cough Gastrointestinal: No abdominal pain, nausea vomiting or diarrhea Genitourinary: As in HPI Musculoskeletal: As in HPI Skin: No rash Neurological: No memory loss, confusion or any focal weakness EXAM Physical Exam Narrative Exam Narrative: Physical exam General: Well nourished, Well developed, No Acute Distress Head: Normocephalic, Atraumatic Eyes: Conjunctiva not pale ENT: Moist mucous membranes Neck: Supple, Nontender, No lymphadenopathy Cardiovascular: Regular rate, Regular rhythm Respiratory: No distress, CTA bilaterally Abdomen: Soft, Nontender, Nondistended Back: Nontender, Normal Inspection. Negative for: CVA tenderness Extremities: Patient has full range of motion of the left shoulder but tenderness especially to AB duction greater than 90 degrees. Right hip shows tenderness over the greater trochanter although she also has tenderness over theSI joint. She has some pain with flexion of the hip but no significant pain with logrolling. No erythema or calor. Skin: Normal color, No rash Neurological: Alert, Normal Strength, Normal Sensation Const Vital Signs: 02/05/23 17:55 Temperature 98.4 F Temperature Source Temporal Pulse Rate 88 Respiratory Rate 18 Blood Pressure 177/74 H Blood Pressure Mean 108 Pulse Ox 99 Oxygen Delivery Method Room Air MDM MDM MDM Narrative Medical decision making narrative: Right hip x-ray read by me is normal except slight DJD Left shoulder x-ray read by me as normal with slight arthritis MDM: I talked to the patient and son who is in the room thus far as gathering history. Patient at this time has no signs or symptoms of any kind of infectious arthritis therefore I do not believe inflammatory markers or blood work is needed. There is no trauma and no evidence of any bony abnormalities. She is also on statins which could cause a lot of her myalgias because she has had right shoulder pain and other type of myalgias. She could have sacroiliitisor bursitis regardless we will treat with analgesia. She also has a UTI which Iwill treat. Lab Data Labs: Laboratory Results - last 24 hr 02/05/23 18:00 Urine Color Straw Urine Clarity Cloudy Urine pH 6.5 Ur Specific [place] 1.010 Urine Protein 30 H Urine Glucose (UA) Normal Urine Ketones Negative Urine Occult Blood 25 H Urine Nitrite Negative Urine Bilirubin Negative Urine Urobilinogen Normal Ur Leukocyte Esterase 500 H Urine RBC 0-5 SEEN Urine WBC >100 SEEN Ur Squamous Epith Cells 0-5 SEEN Urine Bacteria RARE Urine Mucus 0 SEEN Discharge Plan Triage Chief Complaint: Upper Extremity Injury Other Complaint: Complaint ED Provider: Heriberto Rodriguez Dx/Rx/DC Orders Clinical Impression: Acute pain of left shoulder, Acute pain of left hip, Urinary tract infection Instructions: UTIs Understanding, ED Arthralgia Prescriptions: New tramadol 50 mg tablet 50 mg PO Q4H PRN PRN (Reason: Pain) 3 Days Qty: 12 0RF sulfamethoxazole-trimethoprim [Bactrim DS] 800-160 mg tablet 1 tab PO BID Qty: 14 0RF No Action aspirin 81 mg tablet,delayed release (DR/EC) 81 mg PO QDAY cetirizine [Zyrtec] 10 mg tablet 10 mg PO QDAY glipizide 10 mg tablet 5 mg PO BID allopurinol 100 mg tablet 100 mg PO DAILY Label Comments: TAKE 1 TABLET BY MOUTH ONCE DAILY levothyroxine 100 mcg tablet 88 mcg PO DAILY Label Comments: TAKE 1 TABLET BY MOUTH ONCE DAILY furosemide [Lasix] 40 mg tablet 40 mg PO DAILY Rx Instructions: 1/4 pill twice a week carvedilol 25 mg tablet 25 mg PO BID Qty: 180 3RF spironolactone 25 mg tablet 25 mg PO DAILY folic acid 1 mg tablet 1 mg PO DAILY ferrous sulfate 325 mg (65 mg iron) tablet 325 mg PO BID montelukast 10 MG tablet 10 mg PO DAILY Combivent Respimat 20-100 mcg/actuation mist 1 puff INHALATION Q6H pantoprazole 40 mg tablet,delayed release (DR/EC) 40 mg PO BID 30 Days Qty: 60 0RF Primary Care Provider: Carlo Diaz Referrals: Carlo Diaz MD [Primary Care Provider] - 3-5 Days Disposition Disposition: Home, Self Care What to do if you have Problems For any increased pain, shortness of breath, bleeding, nausea or vomiting, chestpain, or any unexpected problems, contact your Primary Care Provider. Call [facility] ([phone]) or report to the closest Emergency Room. Call 911 if necessary. 02/05/231938 <Electronically signed by Heriberto Rodriguez MD> Cosigner Signature (if applicable): CC: Dr. Carlo Diaz MD ~ Signed [facility] Work Phone: [phone] Lee [facility] November 16, 2022 1:42am Note Date/Time November 15, 2022 10: 53pm [facility] Medical Records Department [address] [place] [address] Emergency Department Summary 11/15/22 MR#: [id number] Acct: [id number] Name: ADELA WELLS Rep #:[id number] : 1945 77 From: Diogo Lee MD PCP: Dr. Carlo Diaz MD Status:REG ER Location: ED HPI History of Present Illness Chief Complaint: Palpitations Informant: patient Onset/Context/Timing Onset: Today Activity at onset: activity on onset and rest Timing: Intermittent (2 or 3 episodes) and Lasts (Several hours) Quality: Positive for - (Discomfort, cold) Location: Substernal (Starts lower substernal, radiates up center of chest no other radiation) Current Severity: Gone Maximum Severity: Moderate Worsened By: Nothing Relieved By: Nothing Associated Symptoms: Positive for Dyspnea; Negative for Nausea, Diaphoresis, Cough, Lightheadedness or Palpitations Narrative Narrative: Patient with discomfort off and on today that she states felt similar to when she needed stents and/or CABG in the past. States that she had a routine appointment with her doctor today, and did mention it. She states she had another episode tonight that was concerning to her and she has been short of breath since she woke up this morning, she states it felt like wheezing/COPD a little so she used her albuterol inhaler and it helped a little bit. Patient states she saw her promotions specialist Dr. Win about 1.5 months ago, she tells me that she failed a stress test, and he wanted to do a heart cath on her but her kidneys prevented them from doing that safely, so they made a couple of medication adjustments in the meantime. 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 Type 2 diabetes mellitus without complication Vertigo Home Medications montelukast 10 mg tablet 10 mg PO DAILY ASTHMA 12/17/13 [History Last Taken 09/19/22] aspirin 81 mg tablet,delayed release 81 mg PO QDAY HEART HEALTH 11/19/17 [History Last Taken 09/20/22] cetirizine 10 mg tablet (Zyrtec) 10 mg PO QDAY allergies 02/15/20 [History Last Taken 09/19/22] pravastatin 80 mg tablet 80 mg PO QHS CHOLESTEROL 02/15/20 [History Last Taken 09/19/22] allopurinol 100 mg tablet 100 mg PO DAILY GOUT 11/22/21 [History Last Taken 09/19/22] levothyroxine 100 mcg tablet 100 mcg PO DAILY THYROID 11/22/21 [History Last Taken 09/19/22] glipizide 10 mg tablet 5 mg PO BID DM 05/24/22 [History Last Taken 09/19/22] folic acid 1 mg tablet 1 mg PO DAILY SUPPLEMENT 08/28/22 [History Last Taken 09/19/22] spironolactone 25 mg tablet 25 mg PO DAILY HEART 08/28/22 [History Last Taken 09/20/22] ipratropium 20 mcg-albuterol 100 mcg/actuation mist for inhalation (Combivent Respimat) 1 puff inhalation Q6H BREATHING 09/20/22 [History Last Taken 09/20/22] furosemide 40 mg tablet (Lasix) 40 mg PO DAILY 30 days #30 tabs 09/23/22 [Rx Last Taken Unknown] pantoprazole 40 mg tablet,delayed release 40 mg PO BID 30 days #60 tabs 09/23/22[Rx Last Taken Unknown] ferrous sulfate 325 mg (65 mg iron) tablet 325 mg PO BID SUPPLEMENT 10/04/22 [History Last Taken Unknown] carvedilol 12.5 mg tablet (Coreg) 12.5 mg PO BID #180 tabs 10/30/22 [Rx Last Taken Unknown] isosorbide mononitrate 30 mg tablet,extended release 24 hr 30 mg PO DAILY #30 tabs 10/30/22 [Rx Last Taken Unknown] sulfamethoxazole 800 mg-trimethoprim 160 mg tablet 1 tab PO BID #10 TABLETS 10/30/22 [Rx Last Taken Unknown] nitrofurantoin monohydrate/macrocrystals 100 mg capsule 100 mg PO Q12 #10 CAPSULES 11/16/22 [Rx Last Taken Unknown] Allergy/AdvReac Type Severity Reaction Status Date / Time Anesthetics - Amide Type - Allergy Other Verified 11/15/22 22:31 Select A [Anesthetics - Amide Type] acetaminophen [From Tylenol] AdvReac Severe Other Verified 11/15/22 22:31 cinnamon AdvReac Unknown Unknown Verified 11/15/22 22:31 Penicillins AdvReac Unknown Unknown Verified 11/15/22 22:31 Family History Mother , age 86, advanced age No problems noted. Father Prostate cancer Surgical History H/O coronary artery bypass surgery (10/11/07) History of cholecystectomy History of coronary artery stent placement (01/26/21) History of hysterectomy Hx of appendectomy Hx of bilateral cataract extraction Social History Smoking Status: Never smoker alcohol intake: never substance use type: does not use caffeine: Yes Type: carbonated beverages what type of physical activity do you participate in: none seatbelt use: always do you feel safe at home: Yes ROS ROS ED Constitutional Constitutional ED: Denies chills or fever(s) Eyes Eyes: Denies change in vision or diplopia ENT ENT ED: Denies rhinorrhea or sore throat Cardiovascular Cardiovascular: Reports as per HPI, chest pain and leg edema; Denies orthopnea, palpitations or paroxysmal nocturnal dyspnea Respiratory/Chest Respiratory/Chest: Reports dyspnea; Denies cough, orthopnea or paroxysmal nocturnal dyspnea Gastrointestinal Gastrointestinal: Denies abdominal pain, diarrhea, nausea or vomiting Genitourinary Genitourinary ED: Denies dysuria or hematuria Musculoskeletal Musculoskeletal: Denies back pain or neck pain Integumentary Denies abscess or rash Neurologic Neurologic: Denies headache(s), paresthesias or weakness Psychiatric Psychiatric: Denies anxiety or suicidal thoughts EXAM Physical Exam Const Vital Signs: 11/15/22 22:29 11/15/22 22:28 11/15/22 22:47 Temperature 97.4 F L Temperature Source Temporal Pulse Rate 71 Respiratory Rate 18 Respiratory Effort Normal Non-Labored Blood Pressure 177/69 H Blood Pressure Mean 105 Pulse Ox 100 96 Oxygen Delivery Method Room Air Room Air 11/15/22 23:28 11/16/22 01:00 Temperature Temperature Source Pulse Rate 64 64 Respiratory Rate 19 H 15 Respiratory Effort Blood Pressure 155/79 H Blood Pressure Mean 104 Pulse Ox 94 98 Oxygen Delivery Method Room Air Room Air Positive well nourished and well developed General Appearance ED: well developed and NAD HEENT Reports moist mucous membranes normocephalic and atraumatic Eyes PERRL and EOMs intact bilaterally Neck full ROM, no lymphadenopathy, supple and no JVD Resp Resp Narrative: Conversational dyspnea, no distress. Slight end expiratory wheezes more prominent on the right posterior mid lung field, no other abnormal breath sounds. Cardio regular rate, regular rhythm and no murmurs Rate: Negative for tachycardic GI non-tender and non-distended Auscultation: normoactive bowel sounds Palpation: soft; Negative for pulsatile mass Back/Spine no CVA tenderness General Back: other FROM Extremity normal to inspection General Extremety ED: Yes edema; Negative for pulses abnormal or tenderness General Extremity: edema bilateral lower extremity Details: moderate; Negative for pulses abnormal Neuro oriented x3, CN's II-XII intact bilaterally and no sensory deficits noted Sensorium / Orientation: awake and alert Motor Exam: strength 5/5 throughout Psych mental status grossly normal Skin no rashes or lesions noted and no wounds Heart Score History: Highly Suspicious Age: >/= 65 years Risk Factors: >/= 3 Risk Factors or History of CAD Score: 6 MDM MDM MDM Narrative Medical decision making narrative: Patient's initial EKG is unremarkable for injury, may be a lead reversal, but the morphology is unremarkable/unchanged. See below. Chest x-ray 2 views of myinterpretation negative for pneumonia/pneumothorax, radiology in agreement. Chronic changes noted. Her initial troponin was negative. Since the EKG was a little different blood probably from lead reversal, I obtained a 2-hour delta troponin. It also is negative, with a negligible change from 18 to 19. She is not having any chest discomfort right now on reevaluation. She asked me to senda urinalysis, she said she was having burning dysuria and frequency first days. It appears to show infection. Therefore sent for culture and started her on Macrobid given most recent antimicrobiogram here at the hospital. It is possible that her symptoms tonight were related to her COPD and weather changes as her PCP had suggested to her. I gave her an albuterol aerosol which really helped and resolved her symptoms here. I do not think she needs any steroids right now, but advised to return if she continues to worsen. She has chronic kidney injury, her creatinine is better than the last when she had, her potassium is 5.3, this is just barely elevated and she has no acute EKG changes from this. I do not think it needs to be treated right now, close outpatient follow-up for repeat labs advised. History & Record Review Additional record(s) reviewed:: Prior outpatient record (Outpt myocardial perfusion stress 09/27/22: anterolat ischemia; 08/28/22 last outpt Cardiology visit note) Lab Data Attestation: I reviewed the patient's lab results. Labs: Laboratory Results - last 24 hr 11/15/22 11/15/22 11/15/22 22:58 22:58 22:58 WBC 10.3 RBC 3.70 L Hgb 11.0 L Hct 35.5 L MCV 95.9 MCH 29.7 MCHC 31.0 L RDW Std Deviation 50.4 H RDW Coeff of Kamar 14.3 Plt Count 268 MPV 10.4 Immature Gran % (Auto) 0.300 Neut % (Auto) 62.6 Lymph % (Auto) 26.8 Burnett % (Auto) 4.9 Eos % (Auto) 4.8 Baso % (Auto) 0.6 Absolute Neuts (auto) 6.4 Absolute Lymphs (auto) 2.75 Nucleated RBC % 0 APTT 32.8 Sodium 135 L Potassium 5.3 H Chloride 104 Carbon Dioxide 26.0 Anion Gap 5 BUN 28 H Creatinine 2.01 H Estim Creat Clear Calc 17.41 Est GFR (MDRD) Af Amer 31 L Est GFR (MDRD) Non-Af 25 L BUN/Creatinine Ratio 13.9 Glucose 147 H Calcium 8.9 Troponin I High Sens 18 Urine Color Urine Clarity Urine pH Ur Specific [place] Urine Protein Urine Glucose (UA) Urine Ketones Urine Occult Blood Urine Nitrite Urine Bilirubin Urine Urobilinogen Ur Leukocyte Esterase Urine RBC Urine WBC Ur Squamous Epith Cells Ur Transition Epith Cell Urine Bacteria Urine Mucus 11/15/22 11/16/22 23:50 01:05 WBC RBC Hgb Hct MCV MCH MCHC RDW Std Deviation RDW Coeff of Kamar Plt Count MPV Immature Gran % (Auto) Neut % (Auto) Lymph % (Auto) [place] % (Auto) Eos % (Auto) Baso % (Auto) Absolute Neuts (auto) Absolute Lymphs (auto) Nucleated RBC % APTT Sodium Potassium Chloride Carbon Dioxide Anion Gap BUN Creatinine Estim Creat Clear Calc Est GFR (MDRD) Af Amer Est GFR (MDRD) Non-Af BUN/Creatinine Ratio Glucose Calcium Troponin I High Sens 19 Urine Color Yellow Urine Clarity Cloudy Urine pH 7.0 Ur Specific [place] 1.005 Urine Protein 100 H Urine Glucose (UA) Normal Urine Ketones Negative Urine Occult Blood 50 H Urine Nitrite Negative Urine Bilirubin Negative Urine Urobilinogen Normal Ur Leukocyte Esterase 500 H Urine RBC 10-25 SEEN Urine WBC >100 SEEN Ur Squamous Epith Cells 0-5 SEEN Ur Transition Epith Cell 0-5 SEEN Urine Bacteria 2+ Urine Mucus 0 SEEN Radiography Diagnostic Testing: Clinical Impression(s) from Imaging Studies Chest X-Ray 11/15/22 23:35 IMPRESSION: No acute cardiopulmonary disease. Age-indeterminate bronchitis. Electronically Signed: Jatin Castellon MD at 0:36 EST , Rhythm Strip Rhythm Strip: Sinus Rhythm Rate: 83 Ectopy: None EKG Initial EKG: Attestation: I personally reviewed and interpreted this EKG as follows: Interpretation: Sinus Rhythm and No Acute Injury Pattern Comments: [place] is different, suspect lead reversal, however morphology andprecordial leads unchanged compared with prior Prior EKG tracings: available for review Discharge Plan Triage Chief Complaint: Palpitations ED Provider: Diogo Lee Dx/Rx/DC Orders Clinical Impression: Intermittent chest pain, Chronic kidney disease, Acute exacerbation of chronic obstructive pulmonary disease (COPD), Acute cystitis without hematuria Instructions: COPD: Wheezing and Chest Tightness, ED Cystitis Female Adult Prescriptions: New nitrofurantoin monohyd/m-cryst [nitrofurantoin monohyd/m-cryst] 100 mg capsule 100 mg PO Q12 Qty: 10 0RF No Action aspirin 81 mg tablet,delayed release (DR/EC) 81 mg PO QDAY cetirizine [Zyrtec] 10 mg tablet 10 mg PO QDAY pravastatin 80 mg tablet 80 mg PO QHS glipizide 10 mg tablet 5 mg PO BID levothyroxine 100 mcg tablet 100 mcg PO DAILY Label Comments: TAKE 1 TABLET BY MOUTH ONCE DAILY allopurinol 100 mg tablet 100 mg PO DAILY Label Comments: TAKE 1 TABLET BY MOUTH ONCE DAILY spironolactone 25 mg tablet 25 mg PO DAILY folic acid 1 mg tablet 1 mg PO DAILY ferrous sulfate 325 mg (65 mg iron) tablet 325 mg PO BID montelukast 10 MG tablet 10 mg PO DAILY Combivent Respimat 20-100 mcg/actuation mist 1 puff INHALATION Q6H pantoprazole 40 mg tablet,delayed release (DR/EC) 40 mg PO BID 30 Days Qty: 60 0RF furosemide [Lasix] 40 mg tablet 40 mg PO DAILY 30 Days Qty: 30 0RF isosorbide mononitrate 30 mg tablet extended release 24 hr 30 mg PO DAILY Qty: 30 1RF sulfamethoxazole-trimethoprim [sulfamethoxazole-trimethoprim] 1 TABLET tablet 1 tab PO BID Qty: 10 0RF carvedilol [Coreg] 12.5 mg tablet 12.5 mg PO BID Qty: 180 3RF Rx Instructions: increase to 2 tablets twice daily Primary Care Provider: Carlo Diaz Referrals: Carlo Diaz MD [Primary Care Provider] - 3-5 Days (Your potassium was a little high at 5.3 but your kidney function is a little better than it was before; follow-up for recheck after the weekend) Disposition Disposition: Home, Self Care What to do if you have Problems For any increased pain, shortness of breath, bleeding, nausea or vomiting, chestpain, or any unexpected problems, contact your Primary Care Provider. Call [facility] ([phone]) or report to the closest Emergency Room. Call 911 if necessary. 11/16/22141 <Electronically signed by Diogo Lee MD> Cosigner Signature (if applicable): CC: Dr. Carlo Diaz MD ~ Signed [facility] Work Phone: [phone] 578-459902-22-[address] Lee [facility] October 30, 2022 3:38am Note Date/Time October 30, 2022 12:28am [facility] Medical Records Department [address] [place] [address] Emergency Department Summary 10/30/22 MR#: [id number] Acct: [id number] Name: ADELA WELLS Rep #:[id number] : 1945 77 From: Diogo Lee MD PCP: Dr. Carlo Diaz MD Status:REG ER Location: ED HPI History of Present Illness Chief Complaint: Chest Pain Informant: patient Onset/Context/Timing Onset: Hours (2) Activity at onset: gradual, onset, activity on onset and rest (reading a book) Timing: Continuous Quality: Positive for Pressure Current Severity: Mild Maximum Severity: Severe Worsened By: Nothing Relieved By: - (aspirin x 4baby; no other treatments [employer]) Associated Symptoms: Negative for Nausea, Vomiting, Diaphoresis, Dyspnea, Lightheadedness or Palpitations Narrative Narrative: Patient with a significant cardiac history presenting with chest pressure radiating to her neck and both shoulders that started at rest a couple hours ago, feels like prior cardiac symptoms. She has a history of a [address] way CABG and 4stents, the last of which was placed 1 or 2 years ago, she states she had a chemical stress test a month or 2 ago, was told prior to the stress test that she needed another cath but her kidney function was preventing it. She does not know the results of her stress test but was not told anything specific. Shedoes not usually get this discomfort very often. She does not smoke. She had bleeding ulcers in her GI tract so she was taken off of all blood thinning medications except for baby aspirin which is what she is still taking. 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 Cardiomyopathy CKD (chronic kidney disease) COPD (chronic obstructive pulmonary disease) COVID-19 (~04/2022) Essential hypertension GERD (gastroesophageal reflux disease) History of non-ST elevation myocardial infarction (NSTEMI) (01/26/21) Hyperlipidemia Hypothyroidism Insect bite Morbid obesity NSTEMI (non-ST elevated myocardial infarction) Obesity 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 Type 2 diabetes mellitus without complication Vertigo Home Medications montelukast 10 mg tablet 10 mg PO DAILY ASTHMA 12/17/13 [History Last Taken 09/19/22] aspirin 81 mg tablet,delayed release 81 mg PO QDAY HEART HEALTH 11/19/17 [History Last Taken 09/20/22] cetirizine 10 mg tablet (Zyrtec) 10 mg PO QDAY allergies 02/15/20 [History Last Taken 09/19/22] pravastatin 80 mg tablet 80 mg PO QHS CHOLESTEROL 02/15/20 [History Last Taken 09/19/22] allopurinol 100 mg tablet 100 mg PO DAILY GOUT 11/22/21 [History Last Taken 09/19/22] levothyroxine 100 mcg tablet 100 mcg PO DAILY THYROID 11/22/21 [History Last Taken 09/19/22] glipizide 10 mg tablet 5 mg PO BID DM 05/24/22 [History Last Taken 09/19/22] folic acid 1 mg tablet 1 mg PO DAILY SUPPLEMENT 08/28/22 [History Last Taken 09/19/22] spironolactone 25 mg tablet 25 mg PO DAILY HEART 08/28/22 [History Last Taken 09/20/22] ipratropium 20 mcg-albuterol 100 mcg/actuation mist for inhalation (Combivent Respimat) 1 puff inhalation Q6H BREATHING 09/20/22 [History Last Taken 09/20/22] furosemide 40 mg tablet (Lasix) 40 mg PO DAILY 30 days #30 tabs 09/23/22 [Rx Last Taken Unknown] pantoprazole 40 mg tablet,delayed release 40 mg PO BID 30 days #60 tabs 09/23/22[Rx Last Taken Unknown] ferrous sulfate 325 mg (65 mg iron) tablet 325 mg PO BID SUPPLEMENT 10/04/22 [History Last Taken Unknown] carvedilol 12.5 mg tablet (Coreg) 12.5 mg PO BID #180 tabs 10/30/22 [Rx Last Taken Unknown] isosorbide mononitrate 30 mg tablet,extended release 24 hr 30 mg PO DAILY #30 tabs 10/30/22 [Rx Last Taken Unknown] sulfamethoxazole 800 mg-trimethoprim 160 mg tablet 1 tab PO BID #10 TABLETS 10/30/22 [Rx Last Taken Unknown] Allergy/AdvReac Type Severity Reaction Status Date / Time Anesthetics - Amide Type - Allergy Other Verified 10/30/22 00:13 Select A [Anesthetics - Amide Type] acetaminophen [From Tylenol] AdvReac Severe Other Verified 10/30/22 00:13 cinnamon AdvReac Unknown Unknown Verified 10/30/22 00:13 Penicillins AdvReac Unknown Unknown Verified 10/30/22 00:13 Family History Mother , age 86, advanced age No problems noted. Father Prostate cancer Surgical History H/O coronary artery bypass surgery (10/11/07) History of cholecystectomy History of coronary artery stent placement (01/26/21) History of hysterectomy Hx of appendectomy Hx of bilateral cataract extraction Social History Smoking Status: Never smoker alcohol intake: never substance use type: does not use caffeine: Yes Type: carbonated beverages what type of physical activity do you participate in: none seatbelt use: always do you feel safe at home: Yes ROS ROS ED Constitutional Constitutional ED: Denies chills or fever(s) Eyes Eyes: Denies change in vision or diplopia ENT ENT ED: Denies rhinorrhea or sore throat Cardiovascular Cardiovascular: Reports chest pain; Denies palpitations Respiratory/Chest Respiratory/Chest: Denies cough or dyspnea Gastrointestinal Gastrointestinal: Denies abdominal pain, diarrhea, nausea or vomiting Genitourinary Genitourinary ED: Denies dysuria or hematuria Musculoskeletal Musculoskeletal: Denies back pain or neck pain Integumentary Denies abscess or rash Neurologic Neurologic: Denies headache(s), paresthesias or weakness Psychiatric Psychiatric: Denies anxiety or suicidal thoughts EXAM Physical Exam Const Vital Signs: 10/30/22 00:07 10/30/22 00:15 10/30/22 00:22 Temperature 98.1 F Temperature Source Oral Pulse Rate 75 Respiratory Rate 13 Respiratory Effort Normal Non-Labored Blood Pressure 162/80 H Blood Pressure Mean 107 Pulse Ox 99 Oxygen Delivery Method Room Air Room Air 10/30/22 01:06 10/30/22 02:06 10/30/22 03:00 Temperature Temperature Source Pulse Rate 61 75 64 Respiratory Rate 12 11 L 14 Respiratory Effort Blood Pressure 153/57 H 159/76 H 138/57 H Blood Pressure Mean 89 103 84 Pulse Ox 99 99 99 Oxygen Delivery Method Room Air Room Air Room Air Positive well nourished and well developed General Appearance ED: well developed and NAD HEENT Reports moist mucous membranes normocephalic and atraumatic Eyes PERRL and EOMs intact bilaterally Neck full ROM and supple Resp normal respiratory effort and clear to auscultation bilaterally Cardio regular rate, regular rhythm and no murmurs GI non-tender and non-distended Auscultation: normoactive bowel sounds Palpation: soft Back/Spine no CVA tenderness General Back: other FROM Extremity normal to inspection General Extremety ED: Negative for edema, pulses abnormal or tenderness General Extremity: Negative for edema or pulses abnormal Neuro oriented x3, CN's II-XII intact bilaterally and no sensory deficits noted Sensorium / Orientation: awake and alert Motor Exam: strength 5/5 throughout Skin no rashes or lesions noted and no wounds Heart Score History: Highly Suspicious ECG: Nonspecific Repolarization Age: >/= 65 years Risk Factors: >/= 3 Risk Factors or History of CAD Troponin: </= Normal Limit Score: 7 MDM MDM MDM Narrative Medical decision making narrative: Patient already took 4 baby aspirin prior to arrival, and is feeling better now although she is still having discomfort, she was offered nitroglycerin and/or morphine for continued discomfort and she declined those. Reviewed prior records: Outpatient stress test pharmacologic myocardial perfusion, from 09/27/2022. It is abnormal with evidence of anterolateral ischemia and an anteroapical infarct with reduced ejection fraction approximately 44%. Patient has a nonacute EKG, she has repolarization abnormalities that are stablecompared with her prior. She developed some tingling in her left upper extremity at some point while she was here, we repeated the EKG, she declined analgesics and nitroglycerin, her EKG is unchanged, the tingling went away. At this time she has no chest pressure. Her initial troponin is 17 and the repeat 2 hours later is 20. Her renal function is worse than it was before. I discussed all this with Dr. Roberts who was on for cardiology, the patient sees Dr. Wni as an outpatient and has an appointment in December. He recommends increasing her carvedilol from 12.5 mg twice daily to 25 mg twice daily and putting her on Imdur 30 mg, which I think is reasonable since we are not able tocatheterize her right now without possibly inducing more kidney injury, and she is not having a STEMI or NSTEMI at this time. Discussed all this with the patient, she also added that she has been having some dysuria for the last week and wondered if she had a urinary infection which she has had in the past, we did a urinalysis it is indeed consistent with a UTI, so that will be sent for culture and we will place her on a short course of Bactrim in addition. Advisedto call cardiology and try to get an appointment sooner, and we discussed reasons to return she is comfortable with that plan. Lab Data Attestation: I reviewed the patient's lab results. Labs: Laboratory Results - last 24 hr 10/30/22 10/30/22 10/30/22 00:14 00:14 02:37 WBC 9.9 RBC 3.29 L Hgb 10.0 L Hct 31.8 L MCV 96.7 MCH 30.4 MCHC 31.4 L RDW Std Deviation 52.5 H RDW Coeff of Kamar 14.7 H Plt Count 323 MPV 10.3 Immature Gran % (Auto) 0.200 Neut % (Auto) 57.6 Lymph % (Auto) 31.4 [place] % (Auto) 5.8 Eos % (Auto) 4.2 Baso % (Auto) 0.8 Absolute Neuts (auto) 5.7 Absolute Lymphs (auto) 3.11 Nucleated RBC % 0 Sodium 137 Potassium 4.5 Chloride 105 Carbon Dioxide 27.0 Anion Gap 5 BUN 32 H Creatinine 2.69 H Estim Creat Clear Calc 13.01 Est GFR (MDRD) Af Amer 22 L Est GFR (MDRD) Non-Af 18 L BUN/Creatinine Ratio 11.9 Glucose 152 H Calcium 9.2 Troponin I High Sens 17 20 Urine Color Urine Clarity Urine pH Ur Specific [place] Urine Protein Urine Glucose (UA) Urine Ketones Urine Occult Blood Urine Nitrite Urine Bilirubin Urine Urobilinogen Ur Leukocyte Esterase Urine RBC Urine WBC Ur Squamous Epith Cells Urine Bacteria Urine Mucus 10/30/22 02:42 WBC RBC Hgb Hct MCV MCH MCHC RDW Std Deviation RDW Coeff of Kamar Plt Count MPV Immature Gran % (Auto) Neut % (Auto) Lymph % (Auto) [place] % (Auto) Eos % (Auto) Baso % (Auto) Absolute Neuts (auto) Absolute Lymphs (auto) Nucleated RBC % Sodium Potassium Chloride Carbon Dioxide Anion Gap BUN Creatinine Estim Creat Clear Calc Est GFR (MDRD) Af Amer Est GFR (MDRD) Non-Af BUN/Creatinine Ratio Glucose Calcium Troponin I High Sens Urine Color Yellow Urine Clarity Turbid Urine pH 6.0 Ur Specific [place] 1.010 Urine Protein 100 H Urine Glucose (UA) Normal Urine Ketones Negative Urine Occult Blood 50 H Urine Nitrite Negative Urine Bilirubin Negative Urine Urobilinogen Normal Ur Leukocyte Esterase 500 H Urine RBC 0 SEEN Urine WBC >100 SEEN Ur Squamous Epith Cells 0 SEEN Urine Bacteria 3+ Urine Mucus 0 SEEN Radiography Chest X-Ray - ED: 1 View, Read by ED Physician and No Infiltrates (and no acute CHF) Diagnostic Testing: Clinical Impression(s) from Imaging Studies Chest X-Ray 10/30/22 00:19 IMPRESSION: Cardiomegaly without radiographic evidence of acute cardiopulmonary disease. Electronically Signed: Nilo Herrera MD at 0:38 EST Reading Location ID and State: [facility] / [place] Tel , Service support , Rhythm Strip Rhythm Strip: Sinus Rhythm Rate: 75 Ectopy: None EKG Initial EKG: Attestation: I personally reviewed and interpreted this EKG as follows: Interpretation: Sinus Rhythm, No Acute Injury Pattern and Inverted T- Waves(laterally) Prior EKG tracings: available for review Prior: Unchanged Follow-up EKG: Attestation: I personally reviewed and interpreted this EKG as follows: Interpretation: Sinus Rhythm and Non-Specific ST Changes Comments: Unchanged compared with prior Discharge Plan Triage Chief Complaint: Chest Pain ED Provider: Diogo Lee Dx/Rx/DC Orders Clinical Impression: Chest pain, Acute cystitis without hematuria Instructions: ED Chest Pain, Uncertain Cause, ED Cystitis Female Adult Prescriptions: New isosorbide mononitrate 30 mg tablet extended release 24 hr 30 mg PO DAILY Qty: 30 1RF sulfamethoxazole-trimethoprim [sulfamethoxazole-trimethoprim] 1 TABLET tablet 1 tab PO BID Qty: 10 0RF Continued aspirin 81 mg tablet,delayed release (DR/EC) 81 mg PO QDAY cetirizine [Zyrtec] 10 mg tablet 10 mg PO QDAY pravastatin 80 mg tablet 80 mg PO QHS glipizide 10 mg tablet 5 mg PO BID levothyroxine 100 mcg tablet 100 mcg PO DAILY Label Comments: TAKE 1 TABLET BY MOUTH ONCE DAILY allopurinol 100 mg tablet 100 mg PO DAILY Label Comments: TAKE 1 TABLET BY MOUTH ONCE DAILY spironolactone 25 mg tablet 25 mg PO DAILY folic acid 1 mg tablet 1 mg PO DAILY ferrous sulfate 325 mg (65 mg iron) tablet 325 mg PO BID montelukast 10 MG tablet 10 mg PO DAILY Combivent Respimat 20-100 mcg/actuation mist 1 puff INHALATION Q6H pantoprazole 40 mg tablet,delayed release (DR/EC) 40 mg PO BID 30 Days Qty: 60 0RF furosemide [Lasix] 40 mg tablet 40 mg PO DAILY 30 Days Qty: 30 0RF carvedilol [Coreg] 12.5 mg tablet 12.5 mg PO BID Qty: 180 3RF Rx Instructions: increase to 2 tablets twice daily Primary Care Provider: Carlo Diaz Referrals: Carlo Diaz MD [Primary Care Provider] - Lasha Win MD [Med Staff - Active Staff] - As soon as possible Disposition Disposition: Home, Self Care What to do if you have Problems For any increased pain, shortness of breath, bleeding, nausea or vomiting, chestpain, or any unexpected problems, contact your Primary Care Provider. Call [facility] ([phone]) or report to the closest Emergency Room. Call 911 if necessary. 10/30/22 0338 <Electronically signed by Diogo Lee MD> Cosigner Signature (if applicable): CC: Lasha Win MD; Dr. Carlo Diaz MD ~ Signed [facility] Work Phone: 1(489) 362-383105-21-2021 Evaluation note* Diagnosis Onset Date Resolution Status Cardiomyopathy acute Essential hypertension chron ic History of coronary artery stent placement January 26, 2 021 chronic Hyperlipidemia [facility] Work Phone: [phone]) 888-958702-03-2008 Evaluation note* Diagnosis Onset Date Resolution Status Essential hypertension chron ic H/O coronary artery bypass surgery October 11, 2007 chronic History of coronary artery stent placement January 26, 2 021 chronic Hyperlipidemia [facility] Work Phone: [phone]) 454-258202-03-2008 Evaluation note* Diagnosis Onset Date Resolution Status Essential hypertension chron ic H/O coronary artery bypass surgery October 11, 2007 chronic History of coronary artery stent placement January 26, 2 021 chronic Hyperlipidemia chronic Cardiomyopathy acute NSTEMI (non-ST elevated myocardial infarction) acute Atherosclerosis of coronary artery bypass graft without angina pectoris chronic Essential hypertension chron ic History of coronary artery stent placement January 26, 2 021 chronic Hyperlipidemia [facility] Work Phone: Consult note Author Erasmo [facility] Note Date/Time November 15, 2024 3:3 7pm [facility] Medical Records Department [address] [place] [address] Pre-Anesthesia Evaluation 11/15/24 1532 MR#: [id number] Acct: [id number] Name: ADELA WELLS Lottie Rep #:[id number] : 1945 79 From: Erasmo Ramírez MD PCP: Dr. Carlo Diaz MD Status:REG SDC Y Race: C Location: ASA Classification* ASA Classification ASA Classification: 3 and E Assessment & Plan Anesthesia* Anesthesia Assessment Anesthesia Assessment: Discussed sedation and/or anesthesia options, risks, benefits, and alternatives with patient/parents/legal guardian/POA. Questions invited. The patient/parents/legal guardian/POA seems to understand and agrees to proceedwith anesthesia plan. Reviewed the physical assessment, medical history, allergy history and patient home medications list prior to surgery/procedure/anesthetic and documented any changes. Performed airway and anesthesia risk assessments. Anesthesia Type Anesthesia Type: General (Allergy to amide local anesthetics. Avoid bupivacaineMarcaine lidocaine.) Anesthesia Focused Assessment* Temperature: 98 F Pulse Rate: 67 Blood Pressure: 141/48 Respiratory Rate: 16 Pulse Ox: 99 Airway Assessment Mouth opens: >3 cm Mallampati Score: II Focused Labs Anesthesia Preop lab: CBC WBC 13.6 K/mm3 (4.4-11.0) H 11/15/24 12: 5 RBC 3.72 M/mm3 (4.2-5.4) L 11/15/24 12:11/15/24 Hgb 11.7 g/dL (12.0-15.0) L 11/15/24 12:00 5 Hct 36.4 % (37-47) L 11/15/24 12:00 11/15/24 Plt Count 341 K/mm3 (150-450) 11/15/24 12:00 11/15/24 CHEMISTRY Potassium 4.2 mmol/L (3.3-5.1) 11/15/24 12:11/15/24 Sodium 135 mmol/L (133-145) 11/15/24 12:00 11/15/24 Magnesium 2.2 mg/dL (1.6-2.6) 06/10/24 11:19 06/10/24 Phosphorus 3.1 mg/dL (2.5-4.9) 06/10/24 11:19 06/10/24 BUN 38 mg/dL (4-19) H 11/15/24 12:00 11/15/24 Creatinine 2.36 mg/dL (0.70-1.20) H 11/15/24 12:00 Glucose 164 mg/dL (70-99) H 11/15/24 12:00 11/15/24 POC Glucose 212 mg/dL (74-106) H 11/07/23 12:09 11/07/23 TSH 7.440 uIU/mL (0.358-3.740) H 06/11/24 04:00 COAG PT 13.5 SECONDS (11.7-14.9) 06/10/24 13:15 Pre-Assessment Diagnosis/Proposed Procedure Planned Operative Procedure(s): Repair incarcerated hernia, laproscopic Anesthesia History Anesthesia History - cleaner furniture: Anesthesia History - cleaner furniture Hx Hospitalization Yes 10/09/20 00:07 Any Problems With Anesthesia Yes: allergy 09/20/22 20:22 Cholinesterase deficiency No 09/20/22 20:22 You/Your Family Experience No 09/20/22 20:22 fever (hyperthermia) with Relationship Recent Exposure to Contagious No 09/20/22 20:22 Disease Does patient have nerve No 09/20/22 20:22 stimulator Patient instructed to have device shut off --Does patient have Pacemaker or ICD? When Was Last Pacemaker Check QUESTION #4 FULL TEXT: You/Your Family Experience fever (hyperthermia) with Anesthesia Last Oral Intake Last Oral intake: Last Oral Intake NPO since Meds taken in AM with sips of water? Meds patient instructed to take am of surgery PONV PONV - cleaner furniture: PONV - cleaner furniture Female HX of Motion Sickness HX of N/V After Surgery Non-Smoker Duration of Surgery greater than 60 minutes Number of Risk Factors PONV Score Height & Weight Height & Weight: Anesthesia: Height & Weight Height 5 ft 1 in 11/15/24 11:41 Weight: 74.435 kg 11/15/24 11:41 Body Mass Index (BMI) 31.0 11/15/24 11:41 Respiratory Assessment Respiratory Assessment - cleaner furniture: Respiratory Tract Infection Hx - cleaner furniture Hx Respiratory Tract Infection No 09/20/22 20:22 STOP Sleep Apnea STOP Sleep Apnea - cleaner furniture: STOP Sleep Apnea - cleaner furniture Hx Hypertension Yes 06/11/24 13:38 Hx Sleep Apnea No 06/10/24 13:53 CPAP No 11/04/23 12:39 BIPAP No 11/04/23 12:39 Do you snore loudly (louder than talking or can be heard Do you often feel tired/ fatigued/ sleepy during daytime? Has anyone observed you stop breathing during sleep? STOP Results QUESTION #5 FULL TEXT : Do you snore loudly (louder than talking or can be heard through closed doors)? 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 Specify any problems Hx of Preganancy in last 3 Months Nurse Filling Out Transfusion & Questions: Date: Time: Patient unable to answer at this time (ie. 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 Obesity Atherosclerosis of coronary artery bypass graft without angina pectoris Essential hypertension Type 2 diabetes mellitus without complication Vertigo GERD (gastroesophageal reflux disease) Asthma Hyperlipidemia Hypothyroidism Home Medications ?Medication ?Instructions ?Recorded ?Last Taken ?Type montelukast 10 mg tablet 10 mg PO DAILY PRN ASTHMA 11/13/24 History aspirin 81 mg tablet,delayed 81 mg PO DAILY HEART HEAL TH 11/19/17 11/13/24 History release cetirizine 10 mg tablet (Zyrtec) 10 mg PO DAILY PRN al lergies 02/15/20 06/09/24 History allopurinol 100 mg tablet 100 mg PO DAILY GOUT 2 11/13/24 History ipratropium 20 mcg-albuterol 100 1 puff inhalation Q6H BREATHING 09/20/22 11/13/24 History mcg/actuation mist for inhalation (Combivent Respimat) ferrous sulfate 325 mg (65 mg 325 mg PO DAILY SUPPLEME NT 10/04/22 11/13/24 His tory iron) tablet furosemide 40 mg tablet (Lasix) 40 mg PO DAILY diureti c 12/25/22 11/13/24 History cholecalciferol (vitamin D3) 25 25 mcg PO SUTUTHSA vit ross 06/05/23 11/13/24 History mcg (1,000 unit) tablet omeprazole 20 mg capsule,delayed 20 mg PO DAILY reflux 11/04/23 11/13/24 History release ezetimibe 10 mg tablet (Zetia) 10 mg PO DAILY 02/27/24 11/13/24 History prednisone 5 mg tablet 5 mg PO DAILY 02/27/2411/13 History albuterol sulfate 2.5 mg/3 mL 1.25 mg inhalation TID P RN 05/09/24 11/15/24 History (0.083 %) solution for nebulization shortness of breat h or wheezing ipratropium bromide 0.02 % 0.5 mg inhalation TID PRN 0 05/09/24 11/13/24 History solution for inhalation shortness of breath or wheez ing biotin 10,000 mcg capsule 10,000 mcg PO DAILY 06/10/24 11/13/24 History folic acid 1 mg tablet 1 mg PO DAILY 06/10/2411/13 History glipizide 2.5 mg tablet, extended 2.5 mg PO BID 11/13/24 History release 24 hr amlodipine 5 mg tablet 5 mg PO DAILY 08/25/2411/13 History spironolactone 25 mg tablet 25 mg PO QDAY HEART 11/13/24 History levothyroxine 100 mcg tablet 100 mcg PO DAILY 11/15/24 11/13/24 History metoprolol tartrate 50 mg tablet 50 mg PO DAILY 11/13/24 History Allergy/AdvReac Type Severity Reaction Status Date / Time Anesthetics - Amide Type - Allergy Other Verified 08/25/24 15:01 Select A (Anesthetics - Amide Type) acetaminophen (From Tylenol) AdvReac Severe Other Verified 08/25/24 15:01 pravastatin AdvReac Intermediate Myalgias Verified 08/25/24 15:01 after 15 years of taking cinnamon AdvReac Unknown Unknown Verified 08/25/24 15:01 Penicillins AdvReac Unknown Unknown Verified 08/25/24 15:01 ezetimibe (From Zetia) AdvReac myalgias Verified 08/25/24 15:01 leflunomide AdvReac Chest Verified 08/25/24 15:04 tightness Family History Mother , age 86, advanced age No problems noted. Father Prostate cancer Surgical History History of coronary artery stent placement (01/26/21) H/O coronary artery bypass surgery (10/11/07) Hx of bilateral cataract extraction History of hysterectomy Hx of appendectomy History of cholecystectomy Social History household members: family housing: house Smoking Status: Never smoker alcohol intake: never substance use type: does not use caffeine: Yes Type: carbonated beverages what type of physical activity do you participate in: none seatbelt use: always do you feel safe at home: Yes Review of Systems (Anesthesia) ROS Narrative System reviewed and no additional complaints, except as documented. 11/15/24 1537 <Electronically signed by Erasmo Ramírez MD > Date _ Erasmo Ramírez MD Cosigner Signature: Date CC: ~ Signed [facility] Work Phone: Evaluation noteNo assessment information available [facility] Work Phone: Evaluation note* Diagnosis Onset Date Resolution Status Cardiomyopathy acute NSTEMI (non-ST elevated myocardial infarction) acute Atherosclerosis of coronary artery bypass graft without angina pectoris chronic Essential hypertension chron ic History of coronary artery stent placement January 26 chronic Hyperlipidemia chronic GI bleed resolved Anemia acute [facility] Work Phone: Evaluation note* Diagnosis Onset Date Resolution Status Cardiomyopathy acute Congestive heart failure acu te NSTEMI (non-ST elevated myocardial infarction) acute [facility] Work Phone: [facility] Work Phone: Hospital Discharge instructions Additional Instructions Return to ER if symptoms worsen. Have your PCP recheck your potassium level this week.[facility] Work Phone: Hospital Discharge instructions Additional Instructions Your EKG showed nonspecific changes without obvious heart attack findings. Continue your medications as directed and follow-up with your promotions specialist on as you have scheduled. If your symptoms return or you have any further concerns please return to the hospital [facility] Work Phone: Hospital Discharge instructions Additional Instructions Follow-up with your promotions specialist in outpatient setting. Return with worsening symptoms or concerns. Ensure that you are taking your medications as prescribed including your oral Lasix/furosemide to ensure that you do not have heart failure exacerbation.[facility] Work Phone: Reason for referral (narrative)No reason for referral information availableWCh[facility] Work Phone: Summary Purpose Family History No Family History Records Found Relationship Condition Age at Onset Recorded Date/T mirlande father Malignant neoplasm of prostate Unknown Advance Directives No Advanced Directives Records Found Advance Directive Response Recorded Date/ Time Name of Medical Power of Cnc Specialist ? October 09, 2021 12:31pm Advance Directives No December 17, 3:19pm Living Will Yes January 10, 2022 10 :41am Power of Cnc Specialist No January 10, 2022 10:41am Advance Directive Response Recorded Date/ Time Advance Directives No December 17, 2 014 3:19pm Living Will No March 28, 2022 5:26am Power of Cnc Specialist No March 28 5:26am Advance Directive Response Recorded Date/ Time Advance Directives No December 17, 2 014 3:19pm Living Will Yes March 30, 2022 2:30pm Power of Cnc Specialist No March 30 2:30pm Advance Directive Response Recorded Date/ Time Advance Directives No December 17, 2 014 2:19pm Living Will Yes March 30, 2022 1:30pm Power of Cnc Specialist No March 30 1:30pm Advance Directive Response Recorded Date/ Time Advance Directives No December 17, 2 014 2:19pm Living Will No September 20 4:28pm Power of Cnc Specialist No September 20, 2022 4:28pm Advance Directive Response Recorded Date/ Time Advance Directives No December 17, 2 014 2:19pm Living Will No October 30, 023 12:13am Power of Cnc Specialist No October 30, 2022 12:13am Advance Directive Response Recorded Date/ Time Advance Directives No December 17, 2 014 2:19pm Living Will No November 15, 2022 10:28pm Power of Cnc Specialist No November 15 10:28pm Advance Directive Response Recorded Date/ Time Advance Directives No December 17, 2 014 3:19pm Living Will No February 05, 2023 7 :08pm Power of Cnc Specialist No February 05, 2023 7:08pm Advance Directive Response Recorded Date/ Time Advance Directives No December 17, 2 014 3:19pm Living Will No February 08, 2023 2 :50pm Power of Cnc Specialist No February 08, 2023 2:50pm Advance Directive Response Recorded Date/ Time Advance Directives No December 17, 2 014 3:19pm Living Will No June 03, 2023 11:30pm Power of Cnc Specialist No May 11:30pm Advance Directive Response Recorded Date/ Time Advance Directives No December 17, 2 014 2:19pm Living Will No November 04, 2 024 12:39pm Power of Cnc Specialist No November 04, 2023 12:39pm Advance Directive Response Recorded Date/ Time Living Will No May 09 11:31pm Power of Cnc Specialist No May 09, 2024 11:31pm Living Will No November 15, 2024 11:56am Power of Cnc Specialist No November 15 11:56am Advance Directives No December 17 3:19pm Advance Directive Response Recorded Date/ Time Living Will No May 09 11:31pm Power of Cnc Specialist No May 09, 2024 11:31pm Living Will No November 15, 2024 7:05pm Power of Cnc Specialist No November 15 7:05pm Advance Directives No December 17 3:19pm Advance Directive Response Recorded Date/ Time Living Will No May 09 11:31pm Do you have a Healthcare Power of Cnc Specialist? No May 09, 2024 11:31pm Living Will No November 15, 2024 7:05pm Do you have a Healthcare Power of Cnc Specialist? No November 15, 2024 7:05pm Living Will No December 03, 2024 1:49pm Do you have a Healthcare Power of Cnc Specialist? No December 03, 2024 1:49pm Advance Directives No December 17 3:19pm Advance Directive Response Recorded Date/ Time Living Will No November 15, 2024 7:05pm Do you have a Healthcare Power of Cnc Specialist? No November 15, 2024 7:05pm Living Will No December 03, 2024 1:49pm Do you have a Healthcare Power of Cnc Specialist? No December 03, 2024 1:49pm Do you have a Healthcare Power of Cnc Specialist? No January 17, 2025 6:38pm Advance Directives No December 17 3:19pm Advance Directive Response Recorded Date/ Time Living Will No November 15, 2024 7:05pm Do you have a Healthcare Power of Cnc Specialist? No November 15, 2024 7:05pm Living Will No December 03, 2024 1:49pm Do you have a Healthcare Power of Cnc Specialist? No December 03, 2024 1:49pm Do you have a Healthcare Power of Cnc Specialist? No January 17, 2025 6:38pm Do you have a Healthcare Power of Cnc Specialist? No January 23, 2025 12:31pm Advance Directives No December 17, 014 3:19pm Advance Directive Response Recorded Date/ Time Living Will No November 15, 2024 7:05pm Do you have a Healthcare Power of Cnc Specialist? No November 15, 2024 7:05pm Living Will No December 03, 2024 1:49pm Do you have a Healthcare Power of Cnc Specialist? No December 03, 2024 1:49pm Do you have a Healthcare Power of Cnc Specialist? No January 17, 2025 6:38pm Do you have a Healthcare Power of Cnc Specialist? No January 23, 2025 12:31pm Do you have a Healthcare Power of Cnc Specialist? No January 27, 2025 1:10am Advance Directives No December 17 014 3:19pm Chief Complaint and Reason for Visit Chief Complaint SOB 9 M FU SOB Reason for Visit Essential hypertensi on H/O coronary artery bypass surgery History of coronary artery stent placement Hyperlipidemia Chief Complaint SOB possible covid, or HERRON blood pressure issues Chief Complaint SOB possible covid, or HERRON blood pressure issues SHORNTESS OF BREATH Chief Complaint 6 M FU S/P POMERENE (SCANNED) E ORDER Reason for Visit Essential hypertensi on H/O coronary artery bypass surgery History of coronary artery stent placement Hyperlipidemia Cardiomyopathy NSTEMI (non-ST elevated myocardial infarction) Atherosclerosis of coronary artery bypass graft without angina pectoris Essential hypertension History of coronary artery stent placement Hyperlipidemia Chief Complaint 6 M FU S/P POMERENE (SCANNED) E ORDER GENERAL ILLNESS Reason for Visit Essential hypertensi on H/O coronary artery bypass surgery History of coronary artery stent placement Hyperlipidemia Cardiomyopathy NSTEMI (non-ST elevated myocardial infarction) Atherosclerosis of coronary artery bypass graft without angina pectoris Essential hypertension History of coronary artery stent placement Hyperlipidemia Chief Complaint 6 M FU S/P POMERENE (SCANNED) E ORDER GENERAL ILLNESS GIB, CHEST PAIN Reason for Visit Essential hypertensi on H/O coronary artery bypass surgery History of coronary artery stent placement Hyperlipidemia Cardiomyopathy NSTEMI (non-ST elevated myocardial infarction) Atherosclerosis of coronary artery bypass graft without angina pectoris Essential hypertension History of coronary artery stent placement Hyperlipidemia Chief Complaint S/P POMERENE (SCANNE D) E ORDER GENERAL ILLNESS GIB, CHEST PAIN GIB, CHEST PAIN GIB, CHEST PAIN GIB, CHEST PAIN GIB, CHEST PAIN GIB, CHEST PAIN GIB, CHEST PAIN GIB, CHEST PAIN NSTEMI NSTEMI PCU FU E ORDER Reason for Visit Cardiomyopathy NSTEMI (non-ST elevated myocardial infarction) Atherosclerosis of coronary artery bypass graft without angina pectoris Essential hypertension History of coronary artery stent placement Hyperlipidemia GI bleed Anemia Chief Complaint S/P POMERENE (SCANNE D) E ORDER GENERAL ILLNESS GIB, CHEST PAIN ADMISSION EKG GIB, CHEST PAIN GIB, CHEST PAIN GIB, CHEST PAIN GIB, CHEST PAIN GIB, CHEST PAIN GIB, CHEST PAIN GIB, CHEST PAIN NSTEMI NSTEMI PCU FU E ORDER Reason for Visit Cardiomyopathy NSTEMI (non-ST elevated myocardial infarction) Atherosclerosis of coronary artery bypass graft without angina pectoris Essential hypertension History of coronary artery stent placement Hyperlipidemia GI bleed Anemia Chief Complaint S/P POMERENE (SCANNE D) E ORDER GENERAL ILLNESS GIB, CHEST PAIN ADMISSION EKG GIB, CHEST PAIN GIB, CHEST PAIN GIB, CHEST PAIN GIB, CHEST PAIN GIB, CHEST PAIN GIB, CHEST PAIN GIB, CHEST PAIN NSTEMI NSTEMI PCU FU E ORDER CP Reason for Visit Cardiomyopathy NSTEMI (non-ST elevated myocardial infarction) Atherosclerosis of coronary artery bypass graft without angina pectoris Essential hypertension History of coronary artery stent placement Hyperlipidemia GI bleed Anemia Chief Complaint S/P POMERENE (SCANNE D) E ORDER GENERAL ILLNESS GIB, CHEST PAIN ADMISSION EKG GIB, CHEST PAIN GIB, CHEST PAIN GIB, CHEST PAIN GIB, CHEST PAIN GIB, CHEST PAIN GIB, CHEST PAIN GIB, CHEST PAIN NSTEMI NSTEMI PCU FU E ORDER CP HEART IRREG Reason for Visit Cardiomyopathy NSTEMI (non-ST elevated myocardial infarction) Atherosclerosis of coronary artery bypass graft without angina pectoris Essential hypertension History of coronary artery stent placement Hyperlipidemia GI bleed Anemia Chief Complaint CP HEART IRREG 4 M FU arm pain and dysuria Reason for Visit Cardiomyopathy Essential hypertension History of coronary artery stent placement Hyperlipidemia Chief Complaint CP HEART IRREG 4 M FU arm pain and dysuria SOB Reason for Visit Cardiomyopathy Essential hypertension History of coronary artery stent placement Hyperlipidemia Chief Complaint arm pain and dysuria SOB neck and bilat arm pain SOB Chief Complaint NSTEMI NSTEMI NSTEMI NSTEMI NSTEMI NSTEMI NSTEMI NSTEMI Reason for Visit Cardiomyopathy Congestive heart failure NSTEMI (non-ST elevated myocardial infarction) Chief Complaint Admit Date 6 M FU August 25, 2024 2:58pm BOWEL BLOCKAGE November 15, 2024 3:2 4pm Reason for Visit Admit Date Cardiomyopathy August 25, 2024 2:58pm Essential hypertension August 25 2:58pm History of coronary artery stent placeme nt August 25, 2024 2:58pm Hyperlipidemia August 25, 2024 2:58pm Chief Complaint Admit Date 6 M FU August 25, 2024 2:58pm BOWEL BLOCKAGE November 15, 2024 3:3 6pm INCARERATED HERNIA November 15, 2024 5:4 3pm INCARERATED HERNIA November 16, 2024 7:3 6am INCARERATED HERNIA November 17, 2024 10: 41am Reason for Visit Admit Date Cardiomyopathy August 25, 2024 2:58pm Essential hypertension August 25 2:58pm History of coronary artery stent placeme nt August 25, 2024 2:58pm Hyperlipidemia August 25, 2024 2:58pm Abdominal pain November 15, 2024 5:4 3pm Incarcerated hernia of abdominal cavity November 15, 2024 5:43pm Chief Complaint Admit Date 6 M FU August 25, 2024 2:58pm BOWEL BLOCKAGE November 15, 2024 3:3 6pm INCARERATED HERNIA November 15, 2024 5:4 3pm INCARERATED HERNIA November 16, 2024 7:3 6am INCARERATED HERNIA November 17, 2024 10: 41am WEAKNESS December 03, 2024 11: 23am Chief Complaint Admit Date BOWEL BLOCKAGE November 15, 2024 3:3 6pm INCARERATED HERNIA November 15, 2024 5:4 3pm INCARERATED HERNIA November 16, 2024 7:3 6am INCARERATED HERNIA November 17, 2024 10: 41am WEAKNESS December 03, 2024 11: 23am HERNIA 3-10 December 09, 2024 2:10 pm CHEST PAIN January 17, 2025 4:36p m Reason for Visit Admit Date Abdominal pain November 15, 2024 5:4 3pm Incarcerated hernia of abdominal cavity November 15, 2024 5:43pm Incarcerated ventral hernia December 09, 2 025 2:10pm Chief Complaint Admit Date BOWEL BLOCKAGE November 15, 2024 3:3 6pm INCARERATED HERNIA November 15, 2024 5:4 3pm INCARERATED HERNIA November 16, 2024 7:3 6am INCARERATED HERNIA November 17, 2024 10: 41am WEAKNESS December 03, 2024 11: 23am HERNIA 3-10 December 09, 2024 2:10 pm CHEST PAIN January 17, 2025 4:36p m chest pain January 23, 2025 12:17 pm Chief Complaint Admit Date BOWEL BLOCKAGE November 15, 2024 3:3 6pm INCARERATED HERNIA November 15, 2024 5:4 3pm INCARERATED HERNIA November 16, 2024 7:3 6am INCARERATED HERNIA November 17, 2024 10: 41am WEAKNESS December 03, 2024 11: 23am HERNIA 3-10 December 09, 2024 2:10 pm CHEST PAIN January 17, 2025 4:36p m chest pain January 23, 2025 12:17 pm constipation January 27, 2025 1:05a m Chief Complaint Admit Date BOWEL BLOCKAGE November 15, 2024 3:3 6pm INCARERATED HERNIA November 15, 2024 5:4 3pm INCARERATED HERNIA November 16, 2024 7:3 6am INCARERATED HERNIA November 17, 2024 10: 41am WEAKNESS December 03, 2024 11: 23am HERNIA 3-10 December 09, 2024 2:10 pm CHEST PAIN January 17, 2025 4:36p m chest pain January 23, 2025 12:17 pm constipation January 27, 2025 1:05a m S/P [facility] /18 CP February 10, 2025 1:10p m Reason for Visit Admit Date Abdominal pain November 15, 2024 5:4 3pm Incarcerated hernia of abdominal cavity November 15, 2024 5:43pm Incarcerated ventral hernia December 09, 2 025 2:10pm Cardiomyopathy February 10, 2025 1:10p m Essential hypertension February 10, 2025 1: 10pm History of coronary artery stent placeme nt February 10, 2025 1:10pm Hyperlipidemia February 10, 2025 1:10p m Additional Source Comments INFORMATION SOURCE (unrecogn ized section and content) DATE CREATED AUTHOR 08/23/2021 [facility] DATE CREATED AUTHOR AUTHOR'S ORGANIZ ATION 03/28/2024 [facility] ([place]) DATE CREATED AUTHOR AUTHOR'S ORGANIZ ATION 02/17/2025 [facility] DATE CREATED AUTHOR AUTHOR'S ORGANIZ ATION 04/14/2025 [facility] Goals (unrecognized section and content) Goals may be documented in a n alternate sectionGoals may be documented in an alternate sectionGoals may be documented in an alternate sectionGoals may be documented in an alternate sectionGoals may be documented in an alternate sectionGoals may be documented in an alternate sectionGoals may be documented in an alternate sectionGoals may be documented in an alternate sectionGoals may be documented in an alternate sectionGoals may be documented in an alternate section Care Teams (unrecognized sec tion and content) Team Status: Active Member Role Status Dates Dr. Carlo Diaz MD Primary Care Provider Active Team Status: Active Member Role Status Dates Dr. Carlo Diaz MD Primary Care Provider Active Start: November 15, 2024 Dr. Alphonso Brandon DO Emergency Provider Activ e Start: November 15, 2024 Dr. Juancho Mendoza MD Attending Provider Active Start: November 15, 2024 Dr. Juancho Mendoza MD Other Provider Active St art: November 15, 2024 Team Status: Inactive Member Role Status Dates Dr. Carlo Diaz MD Primary Care Provider Active Start: November 15, 2024 End: November 17, 2024 Dr. Alphonso Brandon DO Emergency Provider Activ e Start: November 15, 2024 End: November 17, 2024 Dr. Juancho Mendoza MD Admit Provider Active St art: November 15, 2024 End: November 17, 2024 Dr. Juancho Mendoza MD Attending Provider Active Start: November 15, 2024 End: November 17, 2024 Team Status: Active Member Role Status Dates Dr. Carlo Diaz MD Primary Care Provider Active Start: November 16, 2024 Dr. Alphonso Brandon DO Emergency Provider Activ e Start: November 16, 2024 Dr. Juancho Mendoza MD Admit Provider Active St art: November 16, 2024 Dr. Juancho Mendoza MD Attending Provider Active Start: November 16, 2024 Dr. Juancho Mendoza MD Other Provider Active St art: November 16, 2024 Team Status: Active Member Role Status Dates Dr. Carlo Diaz MD Primary Care Provider Active Start: November 17, 2024 Dr. Alphonso Brandon DO Emergency Provider Activ e Start: November 17, 2024 Dr. Juancho Mendoza MD Admit Provider Active St art: November 17, 2024 Dr. Juancho Mendoza MD Other Provider Active St art: November 17, 2024 Karin TILLMAN, PA-C Attending Provider Active Start: November 17, 2024 Team Status: Inactive Member Role Status Dates Dr. Carlo Diaz MD Primary Care Provider Active Start: December 03, 2024 End: December 03, 2024 Dr. Alfonso Padilla DO Attending Provider Active Start: December 03, 2024 End: December 03, 2024 Dr. Alfonso Padilla DO Emergency Provider Active Start: December 03, 2024 End: December 03, 2024 Team Status: Inactive Member Role Status Dates Dr. Carlo Diaz MD Primary Care Provider Active Start: December 09, 2024 End: December 09, 2024 Dr. Carlo Diaz MD Referring Provider Active Start: December 09, 2024 End: December 09, 2024 Dr. Juancho Mendoza MD Attending Provider Active Start: December 09, 2024 End: December 09, 2024 Team Status: Inactive Member Role Status Dates Dr. Carlo Diaz MD Primary Care Provider Active Start: January 17, 2025 End: January 17, 2025 Dr. Diogo Lee MD Emergency Provider Active Start: January 17, 2025 End: January 17, 2025 Team Status: Active Member Role Status Dates Dr. Salena Mcclain MD Family Provider Active Dr. Carlo Diaz MD Primary Care Provider Active Team Status: Inactive Member Role Status Dates Dr. Carlo Diaz MD Primary Care Provider, [facility] Active Saba TILLMAN, PA Attending Provider Active Team Status: Active Member Role Status Dates Dr. Carlo Diaz MD Primary Care Provider Active Dr. Rohit Singh DO Emergency Provider Active Dr. Jemma Castellon MD Admit Provider, Other Provider Active Dr. Ortiz Hernández DO Attending Provider Active Team Status: Active Member Role Status Dates Dr. Carlo Diaz MD Primary Care Provider Active Dr. Rohit Singh DO Emergency Provider Active Dr. Jemma Castellon MD Admit Provider, Attending Provider, Other Provider Active Team Status: Active Member Role Status Dates Dr. Carlo Diaz MD Primary Care Provider Active Dr. Ortiz Hernández DO Attending Provider Active Team Status: Active Member Role Status Dates Dr. Carlo Diaz MD Primary Care Provider Active Dr. Lasha Win MD Attending Provider Active Team Status: Active Member Role Status Dates Dr. Carlo Diaz MD Primary Care Provider Active Dr. Rohit Singh DO Emergency Provider Active Dr. Jemma Castellon MD Admit Provider, Other Provider Active Dr. Fritz Winston MD Attending Provider, Other Provid er Active Team Status: Active Member Role Status Dates Dr. Carlo Diaz MD Primary Care Provider Active Dr. Rohit Singh DO Emergency Provider Active Dr. Jemma Castellon MD Admit Provider, Other Provider Active Dr. Fritz Winston MD Other Provider Active Dr. Ortiz Hernández DO Attending Provider Active Team Status: Active Member Role Status Dates Dr. Carlo Diaz MD Primary Care Provider Active Dr. Rohit Singh DO Emergency Provider Active Dr. Jemma Castellon MD Admit Provider, Other Provider Active Dr. Earlene Andrade MD Other Provider Active Dr. Fritz Winston MD Other Provider Active Dr. Ortiz Hernández DO Attending Provider Active Team Status: Inactive Member Role Status Dates Dr. Carlo Diaz MD Primary Care Provider, Referrin g Provider Active Dr. Ortiz Hernández DO Attending Provider Active Team Status: Active Member Role Status Dates Dr. Carlo Diaz MD Primary Care Provider Active Dr. Rohit Singh DO Emergency Provider Active Dr. Jemma Castellon MD Admit Provider, Other Provider Active Dr. Earlene Andrade MD Attending Provider, Other Provider Active Dr. Fritz Winston MD Other Provider Active Team Status: Active Member Role Status Dates Dr. Carlo Diaz MD Primary Care Provider Active Saba TILLMAN, PA Other Provider Active Dr. Lasha Win MD Attending Provider Active Team Status: Inactive Member Role Status Dates Dr. Carlo Diaz MD Primary Care Provider Active Saba Milian PA, PA Attending Provider Active Team Status: Inactive Member Role Status Dates Dr. Carlo Diaz MD Primary Care Provider Active Dr. Cristofer Farrar MD Attending Provider, Emergency Provi oscar Active Team Status: Inactive Member Role Status Dates Dr. Carlo Diaz MD Primary Care Provider Active Dr. Rohit Singh DO Emergency Provider Active Dr. Jemma Castellon MD Admit Provider, Other Provider Active Dr. Earlene Andrade MD Attending Provider Active Dr. Fritz Winston MD Other Provider Active Team Status: Active Member Role Status Dates Dr. Carlo Diaz MD Primary Care Provider Active Dr. Heriberto Roberts MD Attending Provider Active Dr. Jemma Castellon MD Referring Provider Active Team Status: Inactive Member Role Status Dates Dr. Carlo Diaz MD Primary Care Provider Active Dr. Ortiz Hernández DO Attending Provider Active Team Status: Active Member Role Status Dates Dr. Carlo Diaz MD Primary Care Provider Active Dr. Rohit Singh DO Emergency Provider Active Dr. Jemma Castellon MD Admit Provider, Other Provider Active Dr. Ortiz Hernández DO Attending Provider Active Dr. Earlene Andrade MD Referring Provider Active Team Status: Active Member Role Status Dates Dr. Carlo Diaz MD Primary Care Provider Active Saba Milian PA, PA Other Provider Active Dr. Lasha Win MD Attending Provider, Referring Pro vider Active Team Status: Inactive Member Role Status Dates Dr. Carlo Diaz MD Primary Care Provider Active Dr. Diogo Lee MD Emergency Provider Active Team Status: Inactive Member Role Status Dates Dr. Carlo Diaz MD Primary Care Provider Active Dr. Diogo Lee MD Attending Provider, Emergency Provider Active Team Status: Inactive Member Role Status Dates Dr. Carlo Diaz MD Primary Care Provider Active Dr. Heriberto Rodriguez MD Emergency Provider Active Team Status: Inactive Member Role Status Dates Dr. Carlo Diaz MD Primary Care Provider Active Dr. Manolo Ramos MD Emergency Provider Active Team Status: Inactive Member Role Status Dates Dr. Carlo Diaz MD Primary Care Provider Active Dr. Heriberto Rodriguez MD Attending Provider, Emergency Pr ovider Active Team Status: Inactive Member Role Status Dates Dr. Carlo Diaz MD Primary Care Provider Active Dr. Manolo Ramos MD Attending Provider, Emergency Pro vider Active Team Status: Inactive Member Role Status Dates Dr. Carlo Diaz MD Primary Care Provider Active Dr. Jatin De La Rosa , Emergency Provider Active Team Status: Active Member Role Status Dates Dr. Carlo Diaz MD Primary Care Provider Active Dr. Alfonso Padilla DO Emergency Provider Active Dr. Alfonso Quiroz DO Admit Provider, At tending Provider, Other Provider Active Team Status: Active Member Role Status Dates Dr. Carlo Diaz MD Primary Care Provider Active Dr. Alfonso Padilla DO Emergency Provider Active Dr. Alfonso Quiroz DO Admit Provider, Other Provider A ctive Dr. Levy Graham MD Attending Provider, Othe r Provider Active Team Status: Active Member Role Status Dates Dr. Carlo Diaz MD Primary Care Provider Active Dr. Alfonso Padilla DO Emergency Provider Active Dr. Alfonso Quiroz DO Admit Provider, At tending Provider, Other Provider Active Dr. Levy Graham MD Other Provider Active Team Status: Inactive Member Role Status Dates Dr. Carlo Diaz MD Primary Care Provider Active Dr. Alfonso Padilla DO Emergency Provider Active Dr. Alfonso Quiroz DO Admit Provider, Attending Provid er Active Dr. Levy Graham MD Other Provider Active Team Status: Inactive Member Role Status Dates Dr. Carlo Diaz MD Primary Care Provider Active Start: August 25, 2024 End: August 25, 2024 Dr. Carlo Diaz MD Referring Provider Active Start: August 25, 2024 End: August 25, 2024 Saba Milian PA, PA Attending Provider Active Start: August 25, 2024 End: August 25, 2024 Team Status: Active Member Role Status Dates Dr. Carlo Diaz MD Primary Care Provider Active Start: November 15, 2024 Dr. Alphonso Brandon DO Emergency Provider Activ e Start: November 15, 2024 Dr. Juancho Mendoza MD Attending Provider Active Start: November 15, 2024 Team Status: Inactive Member Role Status Dates Dr. Carlo Diaz MD Primary Care Provider Active Start: December 03, 2024 End: December 03, 2024 Dr. Alfonso Padilla DO Emergency Provider Active Start: December 03, 2024 End: December 03, 2024 Team Status: Inactive Member Role Status Dates Dr. Carlo Diaz MD Primary Care Provider Active Start: January 17, 2025 End: January 17, 2025 Dr. Diogo Lee MD Attending Provider Active Start: January 17, 2025 End: January 17, 2025 Dr. Diogo Lee MD Emergency Provider Active Start: January 17, 2025 End: January 17, 2025 Team Status: Inactive Member Role Status Dates Dr. Carlo Diaz MD Primary Care Provider Active Start: January 23, 2025 End: January 23, 2025 Dr. Brian Gray DO Emergency Provider Active Start: January 23, 2025 End: January 23, 2025 Team Status: Inactive Member Role Status Dates Dr. Carol Diaz MD Primary Care Provider Active Start: January 27, 2025 End: January 27, 2025 Dr. Alfonso Padilla DO Emergency Provider Active Start: January 27, 2025 End: January 27, 2025 Team Status: Inactive Member Role Status Dates Dr. Carlo Diaz MD Primary Care Provider Active Start: January 23, 2025 End: January 23, 2025 Dr. Brian Gray DO Attending Provider Active Start: January 23, 2025 End: January 23, 2025 Dr. Brian Gray DO Emergency Provider Active Start: January 23, 2025 End: January 23, 2025 Team Status: Inactive Member Role Status Dates Dr. Carlo Diaz MD Primary Care Provider Active Start: January 27, 2025 End: January 27, 2025 Dr. Alfonso Padilla DO Attending Provider Active Start: January 27, 2025 End: January 27, 2025 Dr. Alfonso Padilla DO Emergency Provider Active Start: January 27, 2025 End: January 27, 2025 Team Status: Inactive Member Role Status Dates Dr. Carlo Diaz MD Primary Care Provider Active Start: February 10, 2025 End: February 10, 2025 Dr. Carlo Diaz MD Referring Provider Active Start: February 10, 2025 End: February 10, 2025 Saba Milian PA, PA Attending Provider Active Start: February 10, 2025 End: February 10, 2025 FOR RECORDS PERTAINING TO PATIENTS WHO ARE [...] BE BASED ON THE PRIMARY CLINICAL RECORDS. [facility]. provides no warranty or guarantee of the accuracy or completeness of information in this document.
[2025-04-15 20:05] LABS: Squamous Epithelial Cells - UA 0-5 SEEN /hpf (5-10)
[2025-04-15 20:16] VITALS: BP 162/84; PULSE 72; RESP 16; TEMP 36.8; O2SAT 100
== END 2025-04-15 20:18 | disposition home or self-care (01) ==
PROVIDERS: Physician Assistant; Emergency Provider Emergency Medicine; PCP Nurse Practitioner Acute Care; Visit Provider Emergency Medicine
DX: N39.0 Urinary tract infection, site not specified (principal); I13.0 Hypertensive heart and chronic kidney disease with heart failure and stage 1 through stage 4 chronic kidney disease, or unspecified chronic kidney disease; I50.9 Heart failure, unspecified; J44.9 Chronic obstructive pulmonary disease, unspecified; E11.22 Type 2 diabetes mellitus with diabetic chronic kidney disease; S91.301A Unspecified open wound, right foot, initial encounter; E78.5 Hyperlipidemia, unspecified; N18.9 Chronic kidney disease, unspecified; I25.10 Atherosclerotic heart disease of native coronary artery without angina pectoris; K21.9 Gastro-esophageal reflux disease without esophagitis
CPT/HCPCS: 81001; 87077; 87086; 87088; 87186; 99283

== ENCOUNTER 2025-05-30 08:39 | Emergency (ER) | payer MEDICARE, SELFPAY ==
[2021-03-16 09:07] VITALS: BMI 39.2
[2025-05-30] VITALS (12 sets, daily range): BP systolic 121–135; BP diastolic 48–77; PULSE 67–124; RESP 16–27; TEMP 36.6; O2SAT 100; BMI 29.3
--- NOTE | 2025-05-30 08:57 | EKG12_ITS ---
Test Reason : SOB Blood Pressure : */* mmHG Vent. Rate : 94 BPM Atrial Rate : 94 BPM P-R Int : 148 ms QRS Dur : 110 ms QT Int : 368 ms P-R-T Axes : 36 14 119 degrees QTcB Int : 460 ms Normal sinus rhythm Incomplete left bundle branch block ST & T wave abnormality, consider lateral ischemia Abnormal ECG Confirmed by ARNALDO DUQUE, DARLENE ([id number]), news editor SUKHDEEP CONTRERAS ([id number]) on 05/31/2025 7:27:59 AM Referred By: AK/TB Confirmed By: DARLENE MCINTOSH MD
[2025-05-30 09:07] LABS: Hematocrit 30.2 % (37-47); Hemoglobin 9.6 g/dL (12.0-15.0); Immature Granulocytes Count 0.050 X10^3/uL (0.0-0.0); Mean Corp Hgb Conc 31.8 g/dL (32-36); Mean Corpuscular Volume 96.8 fL (81-99); Mean Platelet Vol. 10.5 fl (6.2-12.0); NRBC Flagged by Analyzer 0 % (0-5); Platelet Count 261 K/mm3 (150-450); RBC Distribution Width CV 14.5 % (11.6-14.6); RBC Distribution Width SD 51.6 fl (35.1-43.9); Red Blood Count 3.12 M/mm3 (4.2-5.4); White Blood Count 13.1 K/mm3 (4.4-11.0)
--- NOTE | 2025-05-30 09:10 | RAD_ITS ---
PROCEDURE: CHEST PA AND LATERAL 05/30/2025 REASON FOR EXAM: SOB TECHNIQUE: Procedure Code: RADCXR Modality: DX Procedure: CHEST PA AND LATERAL COMPARISON: Prior study dated January 23, 2025. FINDINGS: Hardware: EKG electrodes are seen. Heart: Prior CABG. Mediastinum: The mediastinal contour is unremarkable. Lungs: Once again, there is evidence of scarring at the lung bases worse on the left lung base with central bronchiectasis. Prominence of the central pulmonary arteries. Pulmonary hypertension should be ruled out. Bones: Degenerative changes are identified within the thoracic spine. Increased kyphosis. RAD/Chest PA and Lateral IMPRESSION: Stable examination with evidence of bibasilar scarring worse at the left lung b ase with central bronchiectasis and increased size of the pulmonary arteries suggestive of possible pulmonary hypertension. Reading Location: [place] [id number]
[2025-05-30 09:31] LABS: Troponin T High Sensitivity 135 ng/L (<=14)
[2025-05-30 09:35] LABS: Anion Gap 14 (5-15); BUN 44 mg/dL (4-19); BUN/Creat Ratio 17.0 RATIO (10-20); Calcium,Total 8.7 mg/dL (7.6-11.0); Carbon Dioxide 19.3 mmol/L (21.0-32.0); Chloride 100 mmol/L (98-108); Estimated Creatinine Clearance 14.74 ml/min (50-250); Glucose 111 mg/dL (70-99); Potassium 4.9 mmol/L (3.3-5.1)
[2025-05-30 09:46] LABS: Pro- Brain NATRIURETIC PEPTIDE 47764 pg/mL (<=1800)
--- NOTE | 2025-05-30 11:45 | EX.ED.DYSGE1 ---
HPI History of Present Illness Chief Complaint: Shortness of Breath Narrative Narrative: Patient is a 80-year-old female with past medical history of CHF, NSTEMI, COPD, TIA, type 2 diabetes, vertigo, GERD, asthma, hyperlipidemia, hypothyroidism who presented to the emergency department with a chief complaint of shortness of breath. Patient states that she has had worsening shortness of breath with exertion and states that she is ambulating shorter distances and becoming more short of breath. States that she cannot breathe when she lays flat. Patient denies any sick contacts. States that she is not on oxygen normally. 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 Obesity Atherosclerosis of coronary artery bypass graft without angina pectoris Essential hypertension Type 2 diabetes mellitus without complication Vertigo GERD (gastroesophageal reflux disease) Asthma Hyperlipidemia Hypothyroidism Home Medications ?Medication ?Instructions ?Recorded ?Last Taken ?Type aspirin 81 mg tablet,delayed 81 mg PO DAILY HEART HEALTH 11/19/17 05/29/25 History release allopurinol 100 mg tablet 100 mg PO DAILY GOUT 11/22/21 05/29/25 History ipratropium 20 mcg-albuterol 100 1 puff inhalation Q6H PRN BREATHING 09/20/22 05/29/25 History mcg/actuation mist for inhalation (Combivent Respimat) ferrous sulfate 325 mg (65 mg 325 mg PO DAILY SUPPLEMENT 10/04/22 01/22/25 History iron) tablet furosemide 40 mg tablet (Lasix) 40 mg PO DAILY diuretic 12/25/22 05/29/25 History cholecalciferol (vitamin D3) 25 25 mcg PO SUTUTHSA vitamin 06/05/23 05/29/25 History mcg (1,000 unit) tablet omeprazole 20 mg capsule,delayed 20 mg PO DAILY reflux 11/04/23 05/29/25 History release ezetimibe 10 mg tablet (Zetia) 10 mg PO DAILY 02/27/24 05/29/25 History prednisone 5 mg tablet 5 mg PO DAILY 02/27/24 05/29/25 History albuterol sulfate 2.5 mg/3 mL 1.25 mg inhalation TID PRN 05/09/24 05/30/25 History (0.083 %) solution for nebulization shortness of breath or wheezing biotin 10,000 mcg capsule 10,000 mcg PO DAILY 06/10/24 05/29/25 History folic acid 1 mg tablet 1 mg PO QODAY 06/10/24 05/28/25 History levothyroxine 100 mcg tablet 100 mcg PO DAILY 11/15/24 05/29/25 History metoprolol tartrate 50 mg tablet 50 mg PO BID 02/10/25 05/29/25 History nitroglycerin 0.4 mg sublingual 0.4 mg sublingual Q5-15M PRN chest 02/10/25 Unknown Rx tablet (Nitrostat) pain #25 tabs glipizide 2.5 mg tablet 2.5 mg PO BID 05/30/25 05/29/25 History vitamins A,C,B-zhzw-ljedwt 2,148 2 tab PO BID eye health 05/30/25 05/29/25 History mcg-113 mg-45 mg-17.4 mg tablet (Eye Multivitamin) Allergy/AdvReac Type Severity Reaction Status Date / Time Anesthetics - Amide Type - Allergy Other Verified 05/30/25 08:41 Select A (Anesthetics - Amide Type) acetaminophen (From Tylenol) AdvReac Severe Other Verified 05/30/25 08:41 pravastatin AdvReac Intermediate Myalgias Verified 05/30/25 08:41 after 15 years of taking cinnamon AdvReac Unknown Unknown Verified 05/30/25 08:41 Penicillins AdvReac Unknown Unknown Verified 05/30/25 08:41 leflunomide AdvReac Chest Verified 05/30/25 08:41 tightness Family History Mother , age 86, advanced age No problems noted. Father Prostate cancer Surgical History History of surgery History of ventral hernia repair History of coronary artery stent placement (01/26/21) H/O coronary artery bypass surgery (10/11/07) Hx of bilateral cataract extraction History of hysterectomy Hx of appendectomy History of cholecystectomy Social History household members: family housing: house Smoking Status: Never smoker alcohol intake: never substance use type: does not use caffeine: Yes Type: carbonated beverages what type of physical activity do you participate in: none seatbelt use: always do you feel safe at home: Yes ROS ROS ED ROS Narrative Constitutional: Denies any fevers, chills, headaches Eyes: Denies change in vision double vision blurred vision Cardiovascular: Denies chest pain Respiratory: Complains of shortness of breath as noted above Abdomen: Denies abdominal pain nausea vomit diarrhea : Denies any urinary symptoms Neurological: Denies any numbness, weakness, tingling Musculoskeletal: Denies back pain Skin: Denies any rashes or lesions EXAM Physical Exam Narrative Exam Narrative: General: Patient was lying in bed resting comfortably did not appear to be in acute distress Head: Atraumatic, normocephalic Eyes: PERRL bilaterally, EOMI bilaterally, no conjunctival injection noted Neck: Soft, supple, trachea midline Cardiovascular: Regular rate and rhythm Respiratory: Patient has crackles noted at the right lung base no wheezing noted Abdomen: Soft, nondistended, no tenderness palpation Extremities: +4/5 strength noted in the bilateral upper and lower extremities Neurological: Patient following commands knew that she was at [facility] the year is 2024 Skin: Warm, dry, intact no rashes or lesions noted Const Vital Signs: 05/30/25 08:39 05/30/25 08:51 05/30/25 08:57 Temperature 97.8 F Temperature Source Temporal Pulse Rate 90 Respiratory Rate 16 Respiratory Effort Short of Breath Respiratory Depth Normal Respiratory Pattern Normal Blood Pressure 121/56 H Blood Pressure Mean 77 Pulse Ox 100 Oxygen Delivery Method Room Air Room Air Room Air 05/30/25 11:11 05/30/25 11:32 05/30/25 11:55 Temperature Temperature Source Pulse Rate 84 90 89 Respiratory Rate 23 H 24 H 16 Respiratory Effort Respiratory Depth Respiratory Pattern Normal Blood Pressure 135/62 H 131/61 H Blood Pressure Mean 86 84 Pulse Ox 100 100 Oxygen Delivery Method Room Air Room Air MDM MDM MDM Narrative Medical decision making narrative: Patient is a 80-year-old female who presented to the emergency department chief complaint of dyspnea on exertion and orthopnea. On the differential diagnosis includes but not limited to CHF exacerbation, pneumonia, pneumothorax, COPD exacerbation. Once workup is obtained reviewed she will be reevaluated. Patient's CBC reviewed and showed a white count of 13,000, hemoglobin stable at 9.6, plate count of 261. Patient sodium was 132, potassium normal at 4.2, creatinine was 2.58 she has underlying chronic kidney disease this appears to be around her baseline. Patient's troponin was noted be 135 delta troponin pending. Patient's EKG was reviewed which showed sinus rhythm with a rate of 94 bpm with a VA interval [address] changes noted. This was compared to EKG from 2024 which is largely unchanged. Patient proBNP elevated to 47,764 she was given 40 mg IV Lasix. Patient chest x-ray reviewed by myself and by radiology which showed stable exam with basilar scarring worse at the left lung base with central bronchiectasis increase size of the pulmonary artery suggestive of possible pulmonary hypertension. Patient's echocardiogram from 11/05/2023 was reviewed which showed ejection fraction of 40% unable to assess diastolic dysfunction. She has moderate global hypokinesis of the left ventricle noted. At this point time will discuss case with hospitalist for admission for CHF exacerbation. Discussed case with hospitalist Dr. Miller who states that since she is not hypoxic and does not require oxygen she does not believe that she needs admitted to the hospital and is requesting further discussion with cardiology and potentially increasing her Lasix dose to 40 twice daily and close follow-up with cardiology. When back in and reevaluated the patient again for second time and since she is peed a few times after receiving Lasix she states that she is starting to feel better and attempt to lay her down and she states that she is feeling better with laying down now. I called and discussed case with on-call cabinetmaker apprentice Dr. Win who states that we can increase the patient's Lasix to 40 twice daily and he will have close follow-up with her. Discussed this plan with the patient she is agreeable she would like to go home she was advised return with worsening symptoms or concerns. All question concerns answered she was discharged home in stable condition. Lab Data Labs: Laboratory Results - last 24 hr 05/30/25 05/30/25 08:57 11:35 WBC 13.1 H RBC 3.12 L Hgb 9.6 L Hct 30.2 L MCV 96.8 MCH 30.8 MCHC 31.8 L RDW Std Deviation 51.6 H RDW Coeff of Kamar 14.5 Plt Count 261 MPV 10.5 Immature Gran % (Auto) 0.400 Neut % (Auto) 79.7 H Lymph % (Auto) 12.9 L [place] % (Auto) 6.1 Eos % (Auto) 0.4 Baso % (Auto) 0.5 Absolute Neuts (auto) 10.4 H Absolute Lymphs (auto) 1.69 Nucleated RBC % 0 Sodium 132 L Potassium 4.9 Chloride 100 Carbon Dioxide 19.3 L Anion Gap 14 BUN 44 H Creatinine 2.58 H Estim Creat Clear Calc 14.74 L Est GFR (MDRD) Non-Af 18 L BUN/Creatinine Ratio 17.0 Glucose 111 H Calcium 8.7 Troponin T High Sens 135 H* D Troponin T Hi Sens 2 Hr 123 H* [place] [address] H Radiography Diagnostic Testing: Clinical Impression(s) from Imaging Studies Chest X-Ray 05/30/25 09:10 IMPRESSION: Stable examination with evidence of bibasilar scarring worse at the left lung base with central bronchiectasis and increased size of the pulmonary arteries suggestive of possible pulmonary hypertension. Reading Location: [place] [address] Discharge Plan Triage Chief Complaint: Shortness of Breath ED Provider: Brian Gray Dx/Rx/DC Orders Clinical Impression: Orthopnea, Dyspnea on exertion, Congestive heart failure, Chronic kidney disease Prescriptions: No Action aspirin 81 mg tablet,delayed release (DR/EC) 81 mg PO DAILY allopurinol 100 mg tablet 100 mg PO DAILY furosemide [Lasix] 40 mg tablet 40 mg PO DAILY cholecalciferol (vitamin D3) 25 mcg (1,000 unit) tablet 25 mcg PO SUTUTHSA ferrous sulfate 325 mg (65 mg iron) tablet 325 mg PO DAILY prednisone 5 mg tablet 5 mg PO DAILY ezetimibe [Zetia] 10 mg tablet 10 mg PO DAILY nitroglycerin [Nitrostat] 0.4 mg tablet, sublingual 0.4 mg sublingual Q5-15M PRN (Reason: chest pain) Qty: 25 3RF Rx Instructions: do not exceed 3 doses per episode Combivent Respimat 20-100 mcg/actuation mist 1 puff INHALATION Q6H PRN (Reason: BREATHING) Patient Comments: PT DOES HAVE THIS MEDICATION WITH HER. omeprazole 20 mg capsule,delayed release(DR/EC) 20 mg PO DAILY albuterol sulfate 2.5 mg /3 mL (0.083 %) solution for nebulization 1.25 mg inhalation TID PRN (Reason: shortness of breath or wheezing) glipizide 2.5 mg tablet 2.5 mg PO BID Eye Multivitamin 2,148 mcg-113 mg-45 mg-17.4mg tablet 2 tab PO BID folic acid 1 mg tablet 1 mg PO QODAY biotin 10,000 mcg capsule 10,000 mcg PO DAILY levothyroxine 100 mcg tablet 100 mcg PO DAILY metoprolol tartrate 50 mg tablet 50 mg PO BID Primary Care Provider: Raven Monsalve Referrals: Raven Monsalve, [facility] [Primary Care Provider, Hospitalist] Activity Restrictions/Additional Instructions: Increase your Lasix to 40 mg twice daily. Follow-up with your cabinetmaker apprentice closely call his office today for an appointment within the next few days. Return with worsening symptoms or other concerns Print Language: Latvian Disposition Disposition: Home, Self Care
[2025-05-30 12:02] LABS: Troponin T High Sens 2 HR 123 ng/L (<=14)
== END 2025-05-30 13:07 | disposition home or self-care (01) ==
PROVIDERS: Emergency Provider Emergency Medicine; PCP Nurse Practitioner Acute Care; Visit Provider Emergency Medicine
DX: R06.01 Orthopnea (principal); I13.0 Hypertensive heart and chronic kidney disease with heart failure and stage 1 through stage 4 chronic kidney disease, or unspecified chronic kidney disease; I50.9 Heart failure, unspecified; J44.9 Chronic obstructive pulmonary disease, unspecified; E11.22 Type 2 diabetes mellitus with diabetic chronic kidney disease; R06.09 Other forms of dyspnea; N18.9 Chronic kidney disease, unspecified; I25.2 Old myocardial infarction; K21.9 Gastro-esophageal reflux disease without esophagitis; D64.9 Anemia, unspecified; E78.5 Hyperlipidemia, unspecified; E03.9 Hypothyroidism, unspecified; I25.10 Atherosclerotic heart disease of native coronary artery without angina pectoris; Z95.1 Presence of aortocoronary bypass graft; Z79.82 Long term (current) use of aspirin; Z86.73 Personal history of transient ischemic attack (TIA), and cerebral infarction without residual deficits; Z79.84 Long term (current) use of oral hypoglycemic drugs; Z79.890 Hormone replacement therapy; Z79.899 Other long term (current) drug therapy
CPT/HCPCS: 71046; 80048; 83880; 84484; 85025; 93005; 94640; 96374; 99284; A4216; J1938